=== PATIENT | male | born 1940 | race Caucasian/White ===

== ENCOUNTER → 2016-04-29 | Outpatient (CLI) | payer MEDICARE, BC ==
--- NOTE | 2016-04-29 07:29 | US ---
EXAMINATION TYPE: US kidneys/renal and bladder DATE OF EXAM: 04/29/2016 7:13 AM COMPARISON: NONE CLINICAL HISTORY: R94.4 Abnormal results of kidney function studies. EXAM MEASUREMENTS: Right Kidney: 13.2 x 5.9 x 5.5 cm Left Kidney: 14.9 x 6.0 x 6.4 cm Right Kidney: symmetrically enlarged Left Kidney: cyst lower pole measuring 2.9 x 3.3 x 3.5 cm Bladder: wnl There is no evidence for hydronephrosis at this point in time. No nephrolithiasis is seen. Simple ap pearing cyst lower pole left kidney. The urinary bladder is anechoic. Bilateral ureteral jets are se en. IMPRESSION: 1. Mild renal enlargement bilaterally. 2. Simple cyst left kidney.
== END | disposition home or self-care (01) ==
LOC: RADUSWWP 06:50
PROVIDERS: ATTEND Family Medicine
DX: N28.1 Cyst of kidney, acquired (principal)
CPT/HCPCS: 76770

== ENCOUNTER → 2016-10-04 | Outpatient (CLI) | payer MEDICARE, BC ==
[2016-10-04 12:35] LABS: Hemoglobin A1C 7.2 % (4.2-6.1)
== END | disposition home or self-care (01) ==
LOC: LABWHC1 10:45
PROVIDERS: ATTEND Family Medicine
DX: E11.9 Type 2 diabetes mellitus without complications (principal); Z79.899 Other long term (current) drug therapy
CPT/HCPCS: 36415; 82947; 83036; 84681

== ENCOUNTER → 2016-10-28 | Outpatient (CLI) | payer MEDICARE, BC ==
--- NOTE | 2016-10-28 22:00 | MR ---
EXAMINATION TYPE: MR cervical spine wo con DATE OF EXAM: 10/28/2016 COMPARISON: NONE HISTORY: Neck pain, BUE weakness/numbness TECHNIQUE: Multiplanar, multisequence images of the cervical spine were acquired. FINDINGS: There is artifact on the exam. C2-C3: No evidence for degenerative disc disease. No disc bulge/herniation or protrusion. No Canal stenosis. Foramina are patent bilaterally. C3-C4: Lateral extension of endplate disc complex causes bilateral foraminal encroachment. No signifi cant central stenosis or sizable disc herniation. C4-C5: Small posterior central disc herniation causes slight anterior mass effect on the thecal sac. Lateral extension endplate disc complex results in some foraminal encroachment bilaterally. Anterolis thesis grade 1 C4-5. C5-C6: Posterior extension of endplate disc complex is noted somewhat eccentric towards the left caus ing anterolateral mass effect on the thecal sac, moderate central stenosis, neural foraminal encroach ment left greater than right. C6-C7: Right posterior paracentral disc bulge causes anterolateral mass effect on the thecal sac. No significant central stenosis. Only mild foraminal encroachment bilaterally. C7-T1: Mild bilateral foraminal encroachment likely contributed by the listhesis. Posterior disc bulg es causes slight anterior mass effect on the thecal sac. Cervical segments are intact. There is near normal alignment, loss of lordosis may be due to muscle spasm. Cervical spinal cord is of normal signal. Craniovertebral junction relationships are within normal limits. Cervical vertebral bodies show some multilevel spondylosis with endplate discogenic m arrow signal change, loss of disc height and signal at the intervertebral levels. Mild spinal curvatu re. Incidental note made of probable sebaceous cyst within the subcutaneous fat posterior to the C4 v ertebral body. IMPRESSION: The level degenerative disc disease and foraminal encroachment as described.
== END | disposition home or self-care (01) ==
LOC: RADMRIMAIN 21:08
PROVIDERS: ATTEND Family Medicine
DX: M50.10 Cervical disc disorder with radiculopathy, unspecified cervical region (principal)
CPT/HCPCS: 72141

== ENCOUNTER → 2017-01-20 | Outpatient (CLI) | payer MEDICARE, BC ==
[2017-01-20 11:52] LABS: Calcium 9.3 mg/dL (8.4-10.2); Potassium 4.2 mmol/L (3.5-5.1); Total Bilirubin 0.4 mg/dL (0.2-1.3); Total Protein 7.7 g/dL (6.3-8.2)
[2017-01-20 16:45] LABS: Urine Creatinine 84.1 mg/dL
== END | disposition home or self-care (01) ==
LOC: LABWHC1 11:17
PROVIDERS: ATTEND Internal Medicine Endocrinology, Diabetes & Metabolism
DX: E11.65 Type 2 diabetes mellitus with hyperglycemia (principal)
CPT/HCPCS: 36415; 80053; 80061; 82043; 82570; 83036

== ENCOUNTER → 2017-03-03 | Outpatient (CLI) | payer MEDICARE, BC ==
--- NOTE | 2017-03-03 23:19 | US ---
EXAMINATION TYPE: US carotid duplex BILAT DATE OF EXAM: 03/03/2017 COMPARISON: NONE CLINICAL HISTORY: 76-year-old male R09.89 Carotid Bruit. TECHNIQUE: Carotid duplex ultrasound examination. Indirect Doppler criteria was utilized. FINDINGS: Grayscale images demonstrate extensive shadowing atherosclerotic change at both bifurcations. EXAM MEASUREMENTS: RIGHT: Peak Systolic Velocity (PSV) cm/sec ----- Right CCA: 63.3 ----- Right ICA: 397.3 ----- Right ECA: 506.7 ICA/CCA ratio: 6.3 RIGHT: End Diastole cm/sec ----- Right CCA: 13.8 ----- Right ICA: 93.4 ----- Right ECA: 0.0 LEFT: Peak Systolic Velocity (PSV) cm/sec ----- Left CCA: 133.4 ----- Left ICA: 324.7 ----- Left ECA: 391.2 ICA/CCA ratio: 2.4 LEFT: End Diastole cm/sec ----- Left CCA: 20.4 ----- Left ICA: 95.5 ----- Left ECA: 0.0 VERTEBRALS (direction of flow): Right Vertebral: Antegrade Left Vertebral: Antegrade Rhythm: Normal IMPRESSION: Markedly elevated ICA velocities, right greater than left. Severe (> 70%) stenosis is suggested. Furt her CT angiography evaluation as indicated. Criteria for Assigning % of Stenosis / Diameter reduction (Estimation based on the indirect measurements of the internal carotid artery velocities (ICA PSV). 1. Normal (no stenosis)=ICA PSV < 125 cm/s: ratio < 2.0: ICA EDV<40 cm/s. 2. Less than 50% stenosis=ICA PSV < 125 cm/s: ratio < 2.0: ICA EDV<40 cm/s. 3. 50 to 69% stenosis=ICA PSV of 125 to 230 cm/s: ration 2.0 ? 4.0: ICA EDV 40-100 cm/s. 4. Greater than 70% stenosis to near occlusion= ICA PSV > 230 cm/s: ratio > 4.0: ICA EDV > 100 cm/s. 5. Near occlusion= ICA PSV velocities may be low or undetectable: variable ratio and ICA EDV. 6. Total occlusion=unable to detect flow.
== END | disposition home or self-care (01) ==
LOC: RADUSWWP 14:53
PROVIDERS: ATTEND Family Medicine
DX: I77.89 Other specified disorders of arteries and arterioles (principal); R09.89 Other specified symptoms and signs involving the circulatory and respiratory systems
CPT/HCPCS: 93880

== ENCOUNTER → 2017-03-13 | Outpatient (CLI) | payer MEDICARE, BC ==
--- NOTE | 2017-03-13 09:53 | MR ---
EXAMINATION TYPE: MR angio neck wo/w con DATE OF EXAM: 03/13/2017 COMPARISON: Ultrasound 03/03/2017 HISTORY: Occlusion and stenosis of bilat carotid CONTRAST: Standard multiplanar, multisequence MRI departmental protocol utilizing 13 mL intravenous Gadavist ga dolinium contrast. FINDINGS: Exam limited by artifact There appears to be extensive atherosclerotic plaque involving the proximal right ICA with a stenosis greater than 70%. Stenosis at the origin of the right external carotid artery also suspected. On the left there is a short segmental area of irregularity involving the proximal left ICA also susp ected to be greater than 70% stenosis. Vertebral arteries are noted to be patent with the left being dominant. Mild atherosclerotic plaque n oted bilaterally. Right distal vertebral artery is likely congenitally diminutive. IMPRESSION: 1. Severe (greater than 70%) bilateral proximal ICA stenosis. 2. There also is somewhat diminished signal within the cavernous segment of the distal left ICA. Sign ificant stenosis in this region excluded.
== END | disposition home or self-care (01) ==
LOC: RADMRIMAIN 08:27
PROVIDERS: ATTEND Thoracic Surgery (Cardiothoracic Vascular Surgery)
DX: I65.21 Occlusion and stenosis of right carotid artery (principal)
CPT/HCPCS: 70549; A9581

== ENCOUNTER → 2017-04-23 | Outpatient (CLI) | payer MEDICARE, BC ==
[2017-04-23 10:30] LABS: Basophils % (A) 0 %; Eosinophils # (A) 0.3 k/uL (0-0.7); Eosinophils % (A) 4 %; HCT 39.9 % (39.0-53.0); HGB 12.7 gm/dL (13.0-17.5); Lymphocytes # (A) 1.3 k/uL (1.0-4.8); Lymphocytes % (A) 19 %; MCH 33.4 pg (25.0-35.0); MCHC 31.7 g/dL (31.0-37.0); MCV 105.3 fL (80.0-100.0); Macrocytosis Moderate; Mean Platelet Volume 8.5; Monocytes # (A) 0.4 k/uL (0-1.0); Monocytes % (A) 6 %; Neutrophils # (A) 4.6 k/uL (1.3-7.7); Neutrophils % (A) 68 %; Platelet Count 163 k/uL (150-450); RBC 3.79 m/uL (4.30-5.90); WBC 6.8 k/uL (3.8-10.6)
[2017-04-23 10:31] LABS: Appearance,Urine Clear (Clear); Bilirubin,Urine Negative (Negative); Blood,Urine Negative (Negative); Color,Urine Light Yellow; Glucose,Urine (UA) Negative (Negative); Ketones,Urine Negative (Negative); Leukocyte Esterase,Urine Negative (Negative); Nitrite,Urine Negative (Negative); Protein,Urine Negative (Negative); Specific Gravity,Urine 1.009 (1.001-1.035); Urobilinogen,Urine <2.0 mg/dL (<2.0)
[2017-04-23 11:18] LABS: Potassium 4.8 mmol/L (3.5-5.1)
== END | disposition home or self-care (01) ==
LOC: LABPAT 09:50
PROVIDERS: ATTEND Surgery
DX: Z01.812 Encounter for preprocedural laboratory examination (principal); I65.21 Occlusion and stenosis of right carotid artery
CPT/HCPCS: 36415; 80051; 81003; 82565; 84520; 85025; 86850; 86900; 86901

== ENCOUNTER → 2017-04-30 | Outpatient (CLI) | payer MEDICARE, BC ==
[2017-04-27 09:27] VITALS: BMI 42.8
[~2017-04-30] MED LIST: LACTATED RINGERS 1,000 ML IV SCH; ONDANSETRON 4 MG/2 ML VIAL IVP PRN; fentaNYL (PF) 50 MCG/ML 2 ML AMP IV PRN
[2017-04-30 06:34] VITALS: BP 183/68; PULSE 55; RESP 20; TEMP 97
== END ==
LOC: UNDOADMIN 05:45 → OR 05:45 → 2ORMAIN 05:45 → UNDODISIN 07:15 → EDSTATUS 12:00
PROVIDERS: ATTEND Surgery
DX: Z01.818 Encounter for other preprocedural examination (principal); I65.21 Occlusion and stenosis of right carotid artery
CPT/HCPCS: 86850; 86900; 86901

== ENCOUNTER 2017-05-06 11:59 | Inpatient (IN) | payer MEDICARE, BC ==
[~2017-05-06 11:59] MED LIST changes: +DEXAMETHASONE SOD PHOSPHATE 10 MG/ML 1 ML VIAL IV ONE; +HYDROmorphone 0.5 MG/0.5 ML SYRINGE IVP PRN; +ONDANSETRON 4 MG/2 ML VIAL IVP ONE; -ONDANSETRON 4 MG/2 ML VIAL IVP PRN; -fentaNYL (PF) 50 MCG/ML 2 ML AMP IV PRN
[2017-05-06] MEDS ORDERED: SODIUM CHLORIDE 0.9% 1,000 ML IV ONE ×2 (14:03→21:50)
[2017-05-06 14:05] LABS: Glucose,Whole Blood 120 mg/dL (75-99)
[2017-05-06] MEDS ORDERED: LIDOCAINE 1% 20 ML VIAL (10MG/ML) FOR IV START INTRADERMA ONE (14:09)
[2017-05-06 14:21] LABS: INR 1.2 (<1.2); Partial Thromboplastin Time 37.8 sec (22.0-30.0); Prothrombin Time 11.8 sec (9.0-12.0)
[2017-05-06 14:34] LABS: ALT 18 U/L (21-72); AST 22 U/L (17-59); Albumin 4.2 g/dL (3.5-5.0); Alkaline Phosphatase 65 U/L (38-126); Anion Gap 10 mmol/L; Blood Urea Nitrogen 41 mg/dL (9-20); Calcium 9.3 mg/dL (8.4-10.2); Carbon Dioxide 30 mmol/L (22-30); Chloride 102 mmol/L (98-107); Glucose 123 mg/dL (74-99); Potassium 4.8 mmol/L (3.5-5.1); Sodium 142 mmol/L (137-145); Total Bilirubin 0.6 mg/dL (0.2-1.3); Total Protein 7.5 g/dL (6.3-8.2)
[2017-05-06] MEDS ORDERED: COLCHICINE 0.6 MG TAB PO PRN (16:53)
[2017-05-06] MEDS ORDERED: MECLIZINE 25 MG TAB PO PRN (16:53)
[2017-05-06 16:55] LABS: Glucose,Whole Blood 134 mg/dL (75-99)
[2017-05-06] MEDS ORDERED: INSULIN LISPRO (For Pump) 100 UNIT/ML VIAL SQ-PUMP SCH (17:00)
[2017-05-06] MEDS ORDERED: PROTAMINE SULFATE 10 MG/ML 5 ML VIAL IV ONE (17:54)
[2017-05-06] MEDS ORDERED: fentaNYL (PF) 50 MCG/ML 2 ML AMP ONE (17:54)
[2017-05-06] MEDS ORDERED: GLYCOPYRROLATE 0.2 MG/ML 2 ML VIAL ONE (17:54)
[2017-05-06] MEDS ORDERED: PHENYLEPHRINE-0.9% NACL SYG 1 MG/10 ML SYRINGE ONE (17:54)
[2017-05-06] MEDS ORDERED: MIDAZOLAM 2 MG/2 ML VIAL ONE (17:54)
[2017-05-06] MEDS ORDERED: HEPARIN SODIUM,PORCINE 10,000 UNIT/ML 1 ML VIAL ONE (17:54)
[2017-05-06] MEDS ORDERED: NEOSTIGMINE 1 MG/ML 10 ML VIAL ONE (17:54)
[2017-05-06] MEDS ORDERED: LIDOCAINE 1% INJ 10MG/ML (20 ML MDV) ONE (17:54)
[2017-05-06] MEDS ORDERED: ETOMIDATE 2 MG/ML 10 ML VIAL ONE (17:54)
[2017-05-06] MEDS ORDERED: ROCURONIUM BROMIDE 10 MG/ML 10 ML VIAL IV ONE (17:54)
[2017-05-06] MEDS ORDERED: PROPOFOL 10 MG/ML 20 ML VIAL IV ONE (17:54)
[2017-05-06] MEDS ORDERED: SUCCINYLCHOLINE CHLORIDE 100 MG/5 ML SYR IV ONE (17:54)
[2017-05-06] MEDS ORDERED: hydrALAZINE HCL 20 MG/ML 1 ML VIAL ONE (17:54)
[2017-05-06] MEDS ORDERED: SODIUM CHLORIDE 0.9% 500 ML with HEPARIN SODIUM,PORCINE 5,000 UNIT IV ONE ×2 (18:46)
[2017-05-06] MEDS ORDERED: THROMBIN (BOVINE) 5,000 UNIT VIAL TOPICAL ONE (18:50)
[2017-05-06] MEDS ORDERED: CEFAZOLIN IRRIGATION ONE ×2 (19:00→19:20)
[2017-05-06] MEDS ORDERED: BACITRACIN IRRIGATION ONE ×2 (19:00→19:20)
[2017-05-06] MEDS ORDERED: SODIUM CHLORIDE 0.9% IRRIGATION ONE ×2 (19:00→19:20)
[2017-05-06] MEDS ORDERED: ACETAMINOPHEN TAB 325 MG TAB PO PRN (20:11)
[2017-05-06] MEDS ORDERED: BENZOCAINE/MENTHOL LOZENG 1 EACH LOZENGE MUCOUS MEM PRN (20:11)
[2017-05-06] MEDS ORDERED: HYDROcodone/APAP 5-325MG 1 EACH TAB PO PRN (20:11)
[2017-05-06] MEDS ORDERED: TEMAZEPAM 15 MG CAP PO PRN (20:11)
[2017-05-06] MEDS ORDERED: MAG HYDROX/AL HYDROX/SIMETH 30 ML CUP PO PRN (20:11)
[2017-05-06] MEDS ORDERED: LACTATED RINGERS 1,000 ML IV ONE ×2 (20:44)
--- NOTE | 2017-05-06 20:48 | P.OP ---
Date of Procedure: 05/06/17 Preoperative Diagnosis: Preoperative diagnosis: Hemodynamically severe right internal carotid artery stenosis. Postoperative diagnosis: Same. Procedure right carotid endarterectomy with patch angioplasty. Surgeon Sandie Quiroz. surgeon: Dr. Juárez. Anesthesia: Gen. endotracheal Counts: Correct. Estimated blood loss: 100 mL's. Specimen: Right carotid plaque. Complications: None. Indications: Patient is a 76-year-old male who was recently found to be suffering from here medically severe bilateral carotid artery stenosis. This is confirmed via MR angiography. Patient was counseled as to the options including medical as well as surgical therapy. The patient was to proceed with carotid endarterectomy. He was cleared by cardiology for proposed operative procedure. Technique: Patient brought the upper and placed in supine position, and administered general endotracheal anesthesia delivered by the department of anesthesiology. Boothe catheter was placed to gravity drainage. The patient received 2 g of Ancef intravenously in the preoperative phase. Patient's right lateral neck supraclavicular and anterior chest wall areas were sterilely prepped and draped in usual manner. Skin incision was made overlying the anterior border of the sternocleidomastoid muscle and carried down through the subcutaneous tissues. Hemostasis was achieved using electrocautery. The platysma muscle was incised. Dissection was then carried along the anterior border of the sternocleidomastoid muscle to the level of carotid sheath. Crossing veins were identified and these were doubly ligated with silk suture and transected when encountered. The internal jugular vein was identified and mobilized and retracted posteriorly and inferiorly. The common carotid artery proximally was identified dissected free from investing tissues and encircled with Vesseloops. Dissection along the carotid was continued to the level of the bulb. The superior thyroid artery was encircled vessel loop as was the external carotid artery. The dissection was then carried along the internal carotid to a point distal to the level of plaque. A branch of the ansa cervicalis was encountered and this was transected. The patient was systemically heparinized and after adequate circulation time vessel loops were drawn closed. Arteriotomy was made in the common carotid artery and extended through the bulb level and into the internal carotid with the use of Espinoza scissors. Backbleeding was identified. A shunt was selected and placed in the internal carotid artery. It was then back bled and placed in the common carotid artery, thus restoring flow into the internal system. Endarterectomy was then begun and extended to the level of bulb level. Retraction endarterectomy was performed on the external system. The endarterectomy was then continued into the internal segment and the distal end feathered without the need for tacking sutures. The specimen was sent to pathology. The remaining luminal surface was inspected for any loose or free- floating material and this was removed where encountered. Bovine pericardial patch was selected and patch angioplasty closure of the arterial Rondomycin carotid was performed with the use of 6-0 Prolene suture placed in running fashion. Just prior to completion anastomotic line the shunt was removed. Backbleeding was allowed to occur no thrombus was retrieved. The internal carotid artery was once again occluded and the arteriotomy closure was completed. Backbleeding was then allowed to occur into the common from the internal segment. The internal segment was then occluded at its origin. The vessels surrounding the superior thyroid and the external carotid artery were loosened as well as the vessel loops surrounding the common carotid artery and flow restored into the external system thus flushing any potential debris into the external system. Flow was then restored into the internal system. Excellent pulse in the internal carotid artery distal to the endarterectomy was noted. The anastomotic line was dry. The patient received 25 mg of protamine. The wound was irrigated with antibody containing solution. Topical thrombin Gelfoam were placed about the anastomotic line. Deep tissues were then closed with Vicryl suture. Dermis was closed with 4-0 Monocryl placed in running intradermal fashion. Dermabond appropriate dressings were applied. Patient tolerated the procedure well and awoke without apparent complication was transferred to the recovery area in satisfactory and stable condition.
[2017-05-06 21:26] LABS: Glucose,Whole Blood 175 mg/dL (75-99)
[2017-05-06 21:35] LABS: ABG Base Excess -5.4 mmol/L; ABG HCO3 23 mmol/L (21-25); ABG Oxygen Saturation 96.8 % (94-97); ABG PCO2 66 mmHg (35-45); ABG PO2 136 mmHg (83-108); ABG TCO2 25 mmol/L (19-24)
[2017-05-06] MEDS ORDERED: LABETALOL 5 MG/ML VIAL MDV IVP ONE ×2 (21:40→21:50)
[2017-05-06 21:44] LABS: ABG PH 7.16 (7.35-7.45)
[2017-05-06] MEDS: NITROGLYCERIN-D5W PMX 50 MG in DEXTROSE/WATER 1 250ML.BAG IV SCH (22:00)
[2017-05-06 22:08] LABS: Glucose,Whole Blood 200 mg/dL (75-99)
[2017-05-06 22:18] LABS: ABG Base Excess -0.3 mmol/L; ABG HCO3 26 mmol/L (21-25); ABG PCO2 55 mmHg (35-45); ABG PH 7.29 (7.35-7.45); ABG PO2 266 mmHg (83-108); ABG TCO2 28 mmol/L (19-24)
[2017-05-06 22:39] LABS: Basophils % (A) 0 %; Eosinophils # (A) 0.1 k/uL (0-0.7); Eosinophils % (A) 1 %; HCT 39.7 % (39.0-53.0); HGB 12.6 gm/dL (13.0-17.5); Lymphocytes # (A) 0.6 k/uL (1.0-4.8); Lymphocytes % (A) 5 %; MCH 33.4 pg (25.0-35.0); MCHC 31.6 g/dL (31.0-37.0); MCV 105.7 fL (80.0-100.0); Macrocytosis Moderate; Mean Platelet Volume 8.3; Monocytes # (A) 0.2 k/uL (0-1.0); Monocytes % (A) 1 %; Neutrophils # (A) 10.4 k/uL (1.3-7.7); Neutrophils % (A) 92 %; Platelet Count 190 k/uL (150-450); RBC 3.76 m/uL (4.30-5.90); RDW 14.7 % (11.5-15.5); WBC 11.3 k/uL (3.8-10.6)
[2017-05-06] MEDS: MORPHINE SULFATE 4 MG/ML SYRINGE IVP PRN (22:43)
[2017-05-06 23:00] LABS: ALT 19 U/L (21-72); AST 24 U/L (17-59); Albumin 3.9 g/dL (3.5-5.0); Alkaline Phosphatase 70 U/L (38-126); Anion Gap 11 mmol/L; Blood Urea Nitrogen 36 mg/dL (9-20); Calcium 8.8 mg/dL (8.4-10.2); Carbon Dioxide 26 mmol/L (22-30); Chloride 104 mmol/L (98-107); Glucose 218 mg/dL (74-99); Magnesium 2.2 mg/dL (1.6-2.3); Phosphorus 4.4 mg/dL (2.5-4.5); Potassium 5.1 mmol/L (3.5-5.1); Sodium 141 mmol/L (137-145); Total Bilirubin 0.5 mg/dL (0.2-1.3)
[2017-05-06 23:09] LABS: Creatine Kinase MB 2.4 ng/mL (0.0-2.4); Troponin I <0.012 ng/mL (0.000-0.034)
[2017-05-06] MEDS ORDERED: DABIGATRAN 150 MG CAP PO SCH (23:30)
[2017-05-07] MEDS: PRAVASTATIN SODIUM 40 MG TAB PO SCH ×2 (00:17→20:53)
[2017-05-07] MEDS: FUROSEMIDE 80 MG TAB PO SCH ×3 (00:18→18:06)
[2017-05-07] MEDS: LISINOPRIL 2.5 MG TAB PO SCH ×2 (00:18→20:51)
[2017-05-07] MEDS: metFORMIN 500 MG TAB PO SCH ×2 (00:18→13:04)
[2017-05-07] MEDS: PREGABALIN 75 MG CAP PO SCH ×2 (00:19→13:10)
[2017-05-07] MEDS: PROPAFENONE 225 MG TAB PO SCH ×4 (00:20→20:51)
[2017-05-07] MEDS: SODIUM CHLORIDE 0.9% 1,000 ML IV SCH ×2 (00:21→13:06)
[2017-05-07] MEDS: CARVEDILOL 12.5 MG TAB PO SCH ×2 (00:37→05:35)
[2017-05-07] MEDS ORDERED: NALOXONE 0.4 MG/ML 1 ML VIAL IV PRN (01:10)
[2017-05-07 02:12] LABS: Glucose,Whole Blood 184 mg/dL (75-99)
[2017-05-07] MEDS: MORPHINE SULFATE 4 MG/ML SYRINGE IVP PRN (02:46)
[2017-05-07 05:10] LABS: Basophils % (A) 0 %; Eosinophils % (A) 0 %; HCT 36.9 % (39.0-53.0); HGB 11.4 gm/dL (13.0-17.5); Lymphocytes # (A) 0.8 k/uL (1.0-4.8); Lymphocytes % (A) 6 %; MCV 106.5 fL (80.0-100.0); Macrocytosis Moderate; Mean Platelet Volume 8.5; Monocytes # (A) 0.5 k/uL (0-1.0); Monocytes % (A) 4 %; Neutrophils # (A) 10.8 k/uL (1.3-7.7); Neutrophils % (A) 89 %; Platelet Count 188 k/uL (150-450); RBC 3.47 m/uL (4.30-5.90); RDW 14.8 % (11.5-15.5); WBC 12.2 k/uL (3.8-10.6)
[2017-05-07 05:18] LABS: Anion Gap 9 mmol/L; Blood Urea Nitrogen 36 mg/dL (9-20); Calcium 8.6 mg/dL (8.4-10.2); Carbon Dioxide 27 mmol/L (22-30); Chloride 104 mmol/L (98-107); Glucose 215 mg/dL (74-99); Magnesium 2.1 mg/dL (1.6-2.3); Phosphorus 4.6 mg/dL (2.5-4.5); Potassium 5.4 mmol/L (3.5-5.1); Sodium 140 mmol/L (137-145)
[2017-05-07] MEDS: HYDROcodone/APAP 5-325MG 1 EACH TAB PO PRN ×2 (05:34→16:14)
[2017-05-07 07:07] LABS: Glucose,Whole Blood 243 mg/dL (75-99)
[2017-05-07] MEDS: INSULIN ASPART 100 UNIT/ML 1 ML 10 ML VIAL SQ SCH ×4 (07:36→20:53)
[2017-05-07] MEDS: ASPIRIN 81 MG PO SCH (08:30)
[2017-05-07] MEDS: FAMOTIDINE 20 MG TAB PO SCH ×2 (09:05→20:52)
[2017-05-07] MEDS: amLODIPine 10 MG TAB PO SCH (09:06)
--- NOTE | 2017-05-07 09:26 | P.CNPUL ---
History of Present Illness Consult date: 05/07/17 Reason for consult: other Chief complaint: Status post right carotid endarterectomy, ICU management History of present illness: Consult dated 05/07/2017 This is a 76-year-old male who is postop day #1 status post right carotid endarterectomy. His primary physician is Dr. Patrick Mckenzie. Currently the patient's on 6 L high flow oxygen nitroglycerin drip at 60 mcg/m a saline IV at 75 mL an hour. He has a history of hypertension gout hyperlipidemia diabetes insomnia and a whole host of other major medical problems. He has no ALLERGIES. His home medications include metformin Ambien Flomax Rythmol Lyrica Pravachol 80. Zestril Motrin insulin Lasix Pradaxa colchicine Coreg aspirin Zyloprim and Tylenol. The patient seemed be doing relatively well. Obviously has some pain in the right neck area. Denies any chest pain or chest discomfort. No fever or chills. Any respiratory issues including difficulty breathing coughing wheezing shortness of breath or phlegm production. Review of Systems A 12 point review of system is positive for pain in the right neck area. Otherwise, the review of systems is negative. Consult neurologic negative HEENT negative cardiovascular negative pulmonary negative GI negative rheumatologic immunologic negative endocrinologic and dermatologic all negative Past Medical History Past Medical History: Atrial Fibrillation, Coronary Artery Disease (CAD), Diabetes Mellitus, GERD/Reflux, Hyperlipidemia, Hypertension, Osteoarthritis (OA ), Sleep Apnea/CPAP/BIPAP Additional Past Medical History / Comment(s): pericardial effusion, gout, blockage shaka carotid arteries, neuropathy, diverticulitis, insulin pump, uses a cane- wheelchair for distance. edema shaka feet History of Any Multi-Drug Resistant Organisms: None Reported Past Surgical History: Cardiac Ablation, Heart Catheterization, Orthopedic Surgery Additional Past Surgical History / Comment(s): carpal tunnel rt wrist, rt knee replacement, shaka hip replacement, drainage for pericaridal effusion, cardioversion, arthroscopy shaka knees Past Anesthesia/Blood Transfusion Reactions: Motion Sickness Past Psychological History: No Psychological Hx Reported Smoking Status: Never smoker Past Alcohol Use History: None Reported Past Drug Use History: None Reported - Past Family History Mother Family Medical History: No Reported History Medications and Allergies Home Medications Medication Instructions Recorded Confirmed Type Acetaminophen Tab [Tylenol Tab] 650 mg PO Q4H PRN 03/04/17 05/06/17 History Allopurinol [Zyloprim] 300 mg PO DAILY@1200 03/04/17 05/06/17 History Carvedilol [Coreg] 12.5 mg PO DAILY@1200,2330 03/04/17 05/06/17 History Colchicine [Colcrys] 0.6 mg PO BID PRN 03/04/17 05/06/17 History Furosemide [Lasix] 80 mg PO DAILY@1200,1800 03/04/17 05/06/17 History INSULIN LISPRO (For Pump) [humaLOG 0.01 units SQ-PUMP CONTINUOUS 03/04/17 History (For Pump)] Ibuprofen [Motrin] 800 mg PO TID PRN 03/04/17 05/06/17 History Lisinopril [Zestril] 2.5 mg PO HS 03/04/17 05/06/17 History Meclizine [Antivert] 25 mg PO TID PRN 03/04/17 05/06/17 History Pravastatin Sodium [Pravachol] 40 mg PO HS 03/04/17 05/06/17 History Pregabalin [Lyrica] 150 mg PO DAILY@1200,2330 03/04/17 05/06/17 History Propafenone HCl [Rythmol Sr] 325 mg PO DAILY@1200,2330 03/04/17 05/06/17 History Tamsulosin HCl [Flomax] 0.4 mg PO DAILY@1200 03/04/17 05/06/17 History Zolpidem [Ambien] 10 mg PO HS 03/04/17 05/06/17 History metFORMIN HCL 500 mg PO DAILY@1200,2330 03/04/17 05/06/17 History Aspirin [Adult Low Dose Aspirin EC] 81 mg PO DAILY@1200 04/27/17 05/06/17 History Dabigatran [Pradaxa] 150 mg PO DAILY@1200,2330 04/27/17 05/06/17 History Allergies Allergy/AdvReac Type Severity Reaction Status Date / Time No Known Allergies Allergy Verified 05/06/17 21:02 Physical Exam Osteopathic Statement: *. No significant issues noted on an osteopathic structural exam other than those noted in the History and Physical/Consult. Vitals: Vital Signs Temp Pulse Pulse Resp BP BP BP 05/07/17 06:30 79 103/47 05/07/17 06:00 62 144/65 05/07/17 05:30 64 158/59 05/07/17 05:00 52 L 137/54 05/07/17 04:30 55 L 126/48 05/07/17 04:00 97.2 F L 51 L 20 150/66 05/07/17 03:30 74 155/53 05/07/17 03:25 05/07/17 03:00 69 20 156/53 05/07/17 02:30 63 141/47 05/07/17 02:00 57 L 16 154/53 05/07/17 01:30 49 L 152/59 05/07/17 01:00 96.5 F L 60 16 142/56 05/07/17 00:40 50 L 147/54 05/07/17 00:30 53 L 05/07/17 00:20 64 05/07/17 00:10 60 05/07/17 00:00 51 L 05/06/17 23:50 56 L 05/06/17 23:40 59 L 05/06/17 23:30 55 L 05/06/17 23:20 65 139/40 05/06/17 23:10 65 136/47 05/06/17 23:00 53 L 136/47 05/06/17 22:50 55 L 05/06/17 22:40 52 L 05/06/17 22:30 58 L 154/66 05/06/17 22:20 64 65 16 166/67 05/06/17 22:10 67 05/06/17 22:00 05/06/17 21:50 65 18 158/65 05/06/17 21:40 79 18 168/77 173/85 05/06/17 21:15 65 24 05/06/17 21:05 69 18 143/69 05/06/17 20:45 97 F L 64 22 144/79 149/69 05/06/17 14:16 59 L 18 130/62 05/06/17 13:37 97.5 F L 56 L 18 BP Pulse Ox 05/07/17 06:30 95 05/07/17 06:00 94 L 05/07/17 05:30 98 05/07/17 05:00 98 05/07/17 04:30 97 05/07/17 04:00 97 05/07/17 03:30 97 05/07/17 03:25 87 L 05/07/17 03:00 94 L 05/07/17 02:30 98 05/07/17 02:00 98 05/07/17 01:30 98 05/07/17 01:00 99 05/07/17 00:40 96 05/07/17 00:30 96 05/07/17 00:20 94 L 05/07/17 00:10 95 05/07/17 00:00 96 05/06/17 23:50 95 05/06/17 23:40 95 05/06/17 23:30 95 05/06/17 23:20 99 05/06/17 23:10 97 05/06/17 23:00 98 05/06/17 22:50 97 05/06/17 22:40 98 05/06/17 22:30 98 05/06/17 22:20 100 05/06/17 22:10 100 05/06/17 22:00 100 05/06/17 21:50 97 05/06/17 21:40 94 L 05/06/17 21:15 86 L 05/06/17 21:05 87 L 05/06/17 20:45 89 L 05/06/17 14:16 92 L 05/06/17 13:37 158/66 92 L Intake and Output 05/06/17 05/07/17 05/07/17 22:59 06:59 14:59 Intake Total 776.5 804.900 Output Total 200 525 Balance 576.5 279.900 Intake: IV 776 775 Sodium Chloride 0.9% 1, 675 000 ml @ 75 mls/hr IV . [id number] [facility] Rx#:[id number] ceFAZolin 3 gm In Sodium 100 Chloride 0.9% 50 ml @ 100 mls/hr IVPB ONCE ONE Rx# :[id number] Intake, IV Titration 0.5 29.900 Amount Nitroglycerin-D5w Pmx 50 0.5 29.900 mg In Dextrose/Water 1 250ml.bag @ Titrate IV . Q0M [facility] Rx#:[id number] Output: Urine 150 525 Estimated Blood Loss 50 Other: Voiding Method Indwelling Catheter ABP, PAP, CO, CI - Last 8 Hours Arterial Blood Pressure 127/47 Arterial Blood Pressure 143/49 Arterial Blood Pressure 156/54 Arterial Blood Pressure 136/38 Arterial Blood Pressure 137/30 Arterial Blood Pressure 121/24 Arterial Blood Pressure 162/39 Arterial Blood Pressure 138/49 Arterial Blood Pressure 159/51 Arterial Blood Pressure 158/50 Arterial Blood Pressure 147/44 No acute distress, oriented 3. High flow oxygen in place at 6 L. HEENT examination is grossly unremarkable. Mucous membranes are moist. No oral lesions. Neck supple. Full range of motion. No adenopathy thyromegaly or neck vein distention. Dressing noted on right sided neck. Cardiovascular examination reveals regular rhythm rate. S1-S2 normal. No S3 or S4. No discernible murmur noted. Lungs reveal clear breath sounds. Her sounds are equal bilaterally. No adventitious lung sounds including wheezes rhonchi or crackles. Abdomen soft bowel sounds are heard. No masses or tenderness. Extremities are intact. No cyanosis clubbing or edema. Skin is without rash or lesion. Neurologic examination is brief but nonfocal. Results - Laboratory Findings CBC and BMP: 05/07/17 04:49 05/07/17 04:49 ABG ABG pH 7.29 (7.35-7.45) L 05/06/17 22:15 ABG pCO2 55 mmHg (35-45) H 05/06/17 22:15 ABG pO2 266 mmHg (83-108) H 05/06/17 22:15 ABG O2 Saturation 99.0 % (94-97) H 05/06/17 22:15 PT/INR, D-dimer PT 11.8 sec (9.0-12.0) 05/06/17 14:00 INR 1.2 (<1.2) H 05/06/17 14:00 Abnormal lab findings: Abnormal Labs 05/06/17 05/06/17 05/06/17 13:57 14:00 14:00 WBC RBC Hgb Hct MCV Neutrophils # Lymphocytes # INR 1.2 H APTT 37.8 H ABG pH ABG pCO2 ABG pO2 ABG HCO3 ABG Total CO2 ABG O2 Saturation Potassium BUN 41 H Creatinine 1.29 H Glucose 123 H POC Glucose (mg/dL) 120 H Phosphorus ALT 18 L 05/06/17 05/06/17 05/06/17 16:49 20:56 21:32 WBC RBC Hgb Hct MCV Neutrophils # Lymphocytes # INR APTT ABG pH 7.16 L* ABG pCO2 66 H ABG pO2 136 H ABG HCO3 ABG Total CO2 25 H ABG O2 Saturation Potassium BUN Creatinine Glucose POC Glucose (mg/dL) 134 H 175 H Phosphorus ALT 05/06/17 05/06/17 05/06/17 22:06 22:15 22:32 WBC 11.3 H RBC 3.76 L Hgb 12.6 L Hct MCV 105.7 H Neutrophils # 10.4 H Lymphocytes # 0.6 L INR APTT ABG pH 7.29 L ABG pCO2 55 H ABG pO2 266 H ABG HCO3 26 H ABG Total CO2 28 H ABG O2 Saturation 99.0 H Potassium BUN Creatinine Glucose POC Glucose (mg/dL) 200 H Phosphorus ALT 05/06/17 05/07/17 05/07/17 22:32 02:11 04:49 WBC 12.2 H RBC 3.47 L Hgb 11.4 L Hct 36.9 L MCV 106.5 H Neutrophils # 10.8 H Lymphocytes # 0.8 L INR APTT ABG pH ABG pCO2 ABG pO2 ABG HCO3 ABG Total CO2 ABG O2 Saturation Potassium BUN 36 H Creatinine Glucose 218 H POC Glucose (mg/dL) 184 H Phosphorus ALT 19 L 05/07/17 05/07/17 04:49 07:04 WBC RBC Hgb Hct MCV Neutrophils # Lymphocytes # INR APTT ABG pH ABG pCO2 ABG pO2 ABG HCO3 ABG Total CO2 ABG O2 Saturation Potassium 5.4 H BUN 36 H Creatinine Glucose 215 H POC Glucose (mg/dL) 243 H Phosphorus 4.6 H ALT - Diagnostic Findings Chest x-ray: image reviewed (Labs medications x-rays, so forth, are all reviewed.) Assessment and Plan Assessment: Assessment Postop day #1, status post right carotid endarterectomy History of diabetes Hypertension Hyperlipidemia Gout. Obesity Multiple other medical problems and comorbidities as listed above Plan: Plan dated 05/07/2017 Currently well. Remains on a relatively higher dose of nitroglycerin at 60 mcg/ m. The patient's O2 requirements at 6 L high flow. Chest x-ray labs and medications are all reviewed. He is postop day #1. We'll continue to follow closely. Additional recommendations made at this time. Time with Patient: Greater than 30
[2017-05-07 13:01] LABS: Glucose,Whole Blood 214 mg/dL (75-99)
[2017-05-07] MEDS: TAMSULOSIN 0.4 MG CAP.ER.24H PO SCH (13:05)
[2017-05-07] MEDS: ALLOPURINOL 300 MG TAB PO SCH (13:06)
--- NOTE | 2017-05-07 14:01 | P.CONS ---
History of Present Illness - Reason for Consult Consult date: 05/07/17 Medical management - Chief Complaint s/p right carotid endartectectomy - History of Present Illness 76-year-old male who underwent elective right carotid endarterectomy with patch angioplasty on 05/06/[address] Mckenzie was consulted for medical management. The patient has a history of bilateral carotid stenosis, atrial fibrillation, coronary disease, diabetes mellitus, gastroesophageal reflux disease, hyperlipidemia, hypertension, osteoarthritis, and sleep apnea. The patient was seen and examined in the intensive care unit on rounds Dr. Mckenzie. The patient is sitting up in the chair. Family is at the bedside. The patient remains on a nitro drip at 60 mcg/min. Systolic blood pressures ranging in the 140s. The patient is complaining of pain at the surgical site. Dressing is in place. Swelling is noted near surgical site. Patient denies shortness of breath or coughing. Denies chest pain or pressure. Denies nausea or vomiting. States he is tolerating PO intake well without nausea or vomiting. Review of Systems GENERAL: Patient denies fever. Denies chills. EYES: Denies blurred vision. Denies vision changes. Denies eye pain. EARS, NOSE, MOUTH, & THROAT: Positive for pain near right neck at surgical site. Denies headache. Denies sore throat. Denies ear pain. RESPIRATORY: Denies cough. Denies shortness of breath. Denies sputum production. Denies hemoptysis. CARDIOVASCULAR: Denies chest pain or pressure. Denies palpitations. Denies arrhythmias. GASTROINTESTINAL: Denies abdominal pain. Denies diarrhea. Denies constipation. Denies nausea. Denies vomiting. Denies heartburn. Denies blood in the stool. GENITOURINARY: Denies urinary frequency. Denies burning. Denies dysuria. Denies cloudy urine. Denies blood in the urine. MUSCULOSKELETAL: Denies myalgias. Denies joint swelling. Denies decreased range of motion beyond patients baseline. INTEGUMENTARY: Denies pruitis. Denies rash. PSYCHIATRIC: Denies suicidal or homicial ideations. ENDOCRINE: Denies weight change. Denies polydipsia. Denies polyuria. HEMATOLOGIC: Denies bleeding disorders. Past Medical History Past Medical History: Atrial Fibrillation, Coronary Artery Disease (CAD), Diabetes Mellitus, GERD/Reflux, Hyperlipidemia, Hypertension, Osteoarthritis (OA ), Sleep Apnea/CPAP/BIPAP Additional Past Medical History / Comment(s): pericardial effusion, gout, blockage shaka carotid arteries, neuropathy, diverticulitis, insulin pump, uses a cane- wheelchair for distance. edema shaka feet History of Any Multi-Drug Resistant Organisms: None Reported Past Surgical History: Cardiac Ablation, Heart Catheterization, Orthopedic Surgery Additional Past Surgical History / Comment(s): carpal tunnel rt wrist, rt knee replacement, shaka hip replacement, drainage for pericaridal effusion, cardioversion, arthroscopy shaka knees Past Anesthesia/Blood Transfusion Reactions: Motion Sickness Past Psychological History: No Psychological Hx Reported Smoking Status: Never smoker Past Alcohol Use History: None Reported Past Drug Use History: None Reported - Past Family History Mother Family Medical History: No Reported History Medications and Allergies Home Medications Medication Instructions Recorded Confirmed Type Acetaminophen Tab [Tylenol Tab] 650 mg PO Q4H PRN 03/04/17 05/06/17 History Allopurinol [Zyloprim] 300 mg PO DAILY@1200 03/04/17 05/06/17 History Carvedilol [Coreg] 12.5 mg PO DAILY@1200,2330 03/04/17 05/06/17 History Colchicine [Colcrys] 0.6 mg PO BID PRN 03/04/17 05/06/17 History Furosemide [Lasix] 80 mg PO DAILY@1200,1800 03/04/17 05/06/17 History INSULIN LISPRO (For Pump) [humaLOG 0.01 units SQ-PUMP CONTINUOUS 03/04/17 History (For Pump)] Ibuprofen [Motrin] 800 mg PO TID PRN 03/04/17 05/06/17 History Lisinopril [Zestril] 2.5 mg PO HS 03/04/17 05/06/17 History Meclizine [Antivert] 25 mg PO TID PRN 03/04/17 05/06/17 History Pravastatin Sodium [Pravachol] 40 mg PO HS 03/04/17 05/06/17 History Pregabalin [Lyrica] 150 mg PO DAILY@1200,2330 03/04/17 05/06/17 History Propafenone HCl [Rythmol Sr] 325 mg PO DAILY@1200,2330 03/04/17 05/06/17 History Tamsulosin HCl [Flomax] 0.4 mg PO DAILY@1200 03/04/17 05/06/17 History Zolpidem [Ambien] 10 mg PO HS 03/04/17 05/06/17 History metFORMIN HCL 500 mg PO DAILY@1200,2330 03/04/17 05/06/17 History Aspirin [Adult Low Dose Aspirin EC] 81 mg PO DAILY@1200 04/27/17 05/06/17 History Dabigatran [Pradaxa] 150 mg PO DAILY@1200,2330 04/27/17 05/06/17 History Allergies Allergy/AdvReac Type Severity Reaction Status Date / Time No Known Allergies Allergy Verified 05/06/17 21:02 Physical Exam Vitals: Vital Signs Temp Pulse Pulse Resp BP BP BP 05/07/17 06:30 79 103/47 05/07/17 06:00 62 144/65 05/07/17 05:30 64 158/59 05/07/17 05:00 52 L 137/54 05/07/17 04:30 55 L 126/48 05/07/17 04:00 97.2 F L 51 L 20 150/66 05/07/17 03:30 74 155/53 05/07/17 03:25 05/07/17 03:00 69 20 156/53 05/07/17 02:30 63 141/47 05/07/17 02:00 57 L 16 154/53 05/07/17 01:30 49 L 152/59 05/07/17 01:00 96.5 F L 60 16 142/56 05/07/17 00:40 50 L 147/54 05/07/17 00:30 53 L 05/07/17 00:20 64 05/07/17 00:10 60 05/07/17 00:00 51 L 05/06/17 23:50 56 L 05/06/17 23:40 59 L 05/06/17 23:30 55 L 05/06/17 23:20 65 139/40 05/06/17 23:10 65 136/47 05/06/17 23:00 53 L 136/47 05/06/17 22:50 55 L 05/06/17 22:40 52 L 05/06/17 22:30 58 L 154/66 05/06/17 22:20 64 65 16 166/67 05/06/17 22:10 67 05/06/17 22:00 05/06/17 21:50 65 18 158/65 05/06/17 21:40 79 18 168/77 173/85 05/06/17 21:15 65 24 05/06/17 21:05 69 18 143/69 05/06/17 20:45 97 F L 64 22 144/79 149/69 05/06/17 14:16 59 L 18 130/62 Pulse Ox 05/07/17 06:30 95 05/07/17 06:00 94 L 05/07/17 05:30 98 05/07/17 05:00 98 05/07/17 04:30 97 05/07/17 04:00 97 05/07/17 03:30 97 05/07/17 03:25 87 L 05/07/17 03:00 94 L 05/07/17 02:30 98 05/07/17 02:00 98 05/07/17 01:30 98 05/07/17 01:00 99 05/07/17 00:40 96 05/07/17 00:30 96 05/07/17 00:20 94 L 05/07/17 00:10 95 05/07/17 00:00 96 05/06/17 23:50 95 05/06/17 23:40 95 05/06/17 23:30 95 05/06/17 23:20 99 05/06/17 23:10 97 05/06/17 23:00 98 05/06/17 22:50 97 05/06/17 22:40 98 05/06/17 22:30 98 05/06/17 22:20 100 05/06/17 22:10 100 05/06/17 22:00 100 05/06/17 21:50 97 05/06/17 21:40 94 L 05/06/17 21:15 86 L 05/06/17 21:05 87 L 05/06/17 20:45 89 L 05/06/17 14:16 92 L Intake and Output 05/06/17 05/07/17 05/07/17 22:59 06:59 14:59 Intake Total 776.5 804.900 450 Output Total 200 525 400 Balance 576.5 279.900 50 Intake: IV 776 775 450 Sodium Chloride 0.9% 5 450 000 ml @ 75 mls/hr IV . [id number] [facility] Rx#:[id number] ceFAZolin 3 gm In Sodium 100 Chloride 0.9% 50 ml @ 100 mls/hr IVPB ONCE ONE Rx# :[id number] Intake, IV Titration 0.5 29.900 Amount Nitroglycerin-D5w Pmx 50 0.5 29.900 mg In Dextrose/Water 1 250ml.bag @ Titrate IV . Q0M [facility] Rx#:[id number] Output: Urine 150 525 400 Estimated Blood Loss 50 Other: Voiding Method Indwelling Catheter Indwelling Catheter ABP, PAP, CO, CI - Last 8 Hours Arterial Blood Pressure 127/47 Arterial Blood Pressure 143/49 GENERAL: This is a 76-year-old male in no apparent distress at the time of examination. Pleasant and cooperative. HEENT: Head is atraumatic, normocephalic. Pupils are equal, round, and reactive to light. Sclerae anicteric. Conjunctivae are clear. Mucus membranes of the mouth are moist. Neck is supple. RESPIRATORY: Clear to ausculation. No wheezes, rales, or rhonchi. No use of accessory muscles. Patient maintaining oxygen saturation greater than 92%. No chest wall tenderness is noted on palpation or with deep breathing. CARDIOVASCULAR: Regular rate and rhythm. S1 and S2 noted. No systolic or diastolic murmur auscultated. No JVD noted. No S3 or S4 noted. GASTROINTESTINAL: No distention noted. Abdomen soft and round. Normal active bowel sounds auscultated x 4 quadrants. No pain or tenderness noted upon palpation. INTEGUMENTARY: Dressing noted to right neck. No drainage noted. Clean dry and intact. Swelling noted around surgical area. No cyanosis. No jaundice. EXTREMITIES: 2+ peripheral pulses. No evidence of peripheral edema. No calf tenderness noted. NEUROLOGIC: Cranial nerves II-XII intact. PSYCHIATRIC: Awake, alert, and oriented X 3. Appropriate affect. Intact judgement and insight. Results CBC & Chem 7: 05/07/17 04:49 05/07/17 04:49 Labs: Abnormal Lab Results - Last 24 Hours (Table) 05/06/17 05/06/17 05/06/17 Range/Units 13:57 14:00 14:00 WBC (3.8-10.6) k/uL RBC (4.30-5.90) m/uL Hgb (13.0-17.5) gm/dL Hct (39.0-53.0) % MCV (80.0-100.0) fL Neutrophils # (1.3-7.7) k/uL Lymphocytes # (1.0-4.8) k/uL INR 1.2 H (<1.2) APTT 37.8 H (22.0-30.0) sec ABG pH (7.35-7.45) ABG pCO2 (35-45) mmHg ABG pO2 (83-108) mmHg ABG HCO3 (21-25) mmol/L ABG Total CO2 (19-24) mmol/L ABG O2 Saturation (94-97) % Potassium (3.5-5.1) mmol/L BUN 41 H (9-20) mg/dL Creatinine 1.29 H (0.66-1.25) mg/dL Glucose 123 H (74-99) mg/dL POC Glucose (mg/dL) 120 H (75-99) mg/dL Phosphorus (2.5-4.5) mg/dL ALT 18 L (21-72) U/L 05/06/17 05/06/17 05/06/17 Range/Units 16:49 20:56 21:32 WBC (3.8-10.6) k/uL RBC (4.30-5.90) m/uL Hgb (13.0-17.5) gm/dL Hct (39.0-53.0) % MCV (80.0-100.0) fL Neutrophils # (1.3-7.7) k/uL Lymphocytes # (1.0-4.8) k/uL INR (<1.2) APTT (22.0-30.0) sec ABG pH 7.16 L* (7.35-7.45) ABG pCO2 66 H (35-45) mmHg ABG pO2 136 H (83-108) mmHg ABG HCO3 (21-25) mmol/L ABG Total CO2 25 H (19-24) mmol/L ABG O2 Saturation (94-97) % Potassium (3.5-5.1) mmol/L BUN (9-20) mg/dL Creatinine (0.66-1.25) mg/dL Glucose (74-99) mg/dL POC Glucose (mg/dL) 134 H 175 H (75-99) mg/dL Phosphorus (2.5-4.5) mg/dL ALT (21-72) U/L 05/06/17 05/06/17 05/06/17 Range/Units 22:06 22:15 22:32 WBC 11.3 H (3.8-10.6) k/uL RBC 3.76 L (4.30-5.90) m/uL Hgb 12.6 L (13.0-17.5) gm/dL Hct (39.0-53.0) % MCV 105.7 H (80.0-100.0) fL Neutrophils # 10.4 H (1.3-7.7) k/uL Lymphocytes # 0.6 L (1.0-4.8) k/uL INR (<1.2) APTT (22.0-30.0) sec ABG pH 7.29 L (7.35-7.45) ABG pCO2 55 H (35-45) mmHg ABG pO2 266 H (83-108) mmHg ABG HCO3 26 H (21-25) mmol/L ABG Total CO2 28 H (19-24) mmol/L ABG O2 Saturation 99.0 H (94-97) % Potassium (3.5-5.1) mmol/L BUN (9-20) mg/dL Creatinine (0.66-1.25) mg/dL Glucose (74-99) mg/dL POC Glucose (mg/dL) 200 H (75-99) mg/dL Phosphorus (2.5-4.5) mg/dL ALT (21-72) U/L 05/06/17 05/07/17 05/07/17 Range/Units 22:32 02:11 04:49 WBC 12.2 H (3.8-10.6) k/uL RBC 3.47 L (4.30-5.90) m/uL Hgb 11.4 L (13.0-17.5) gm/dL Hct 36.9 L (39.0-53.0) % MCV 106.5 H (80.0-100.0) fL Neutrophils # 10.8 H (1.3-7.7) k/uL Lymphocytes # 0.8 L (1.0-4.8) k/uL INR (<1.2) APTT (22.0-30.0) sec ABG pH (7.35-7.45) ABG pCO2 (35-45) mmHg ABG pO2 (83-108) mmHg ABG HCO3 (21-25) mmol/L ABG Total CO2 (19-24) mmol/L ABG O2 Saturation (94-97) % Potassium (3.5-5.1) mmol/L BUN 36 H (9-20) mg/dL Creatinine (0.66-1.25) mg/dL Glucose 218 H (74-99) mg/dL POC Glucose (mg/dL) 184 H (75-99) mg/dL Phosphorus (2.5-4.5) mg/dL ALT 19 L (21-72) U/L 05/07/17 05/07/17 05/07/17 Range/Units 04:49 07:04 12:59 WBC (3.8-10.6) k/uL RBC (4.30-5.90) m/uL Hgb (13.0-17.5) gm/dL Hct (39.0-53.0) % MCV (80.0-100.0) fL Neutrophils # (1.3-7.7) k/uL Lymphocytes # (1.0-4.8) k/uL INR (<1.2) APTT (22.0-30.0) sec ABG pH (7.35-7.45) ABG pCO2 (35-45) mmHg ABG pO2 (83-108) mmHg ABG HCO3 (21-25) mmol/L ABG Total CO2 (19-24) mmol/L ABG O2 Saturation (94-97) % Potassium 5.4 H (3.5-5.1) mmol/L BUN 36 H (9-20) mg/dL Creatinine (0.66-1.25) mg/dL Glucose 215 H (74-99) mg/dL POC Glucose (mg/dL) 243 H 214 H (75-99) mg/dL Phosphorus 4.6 H (2.5-4.5) mg/dL ALT (21-72) U/L Microbiology - Last 24 Hours (Table) 05/07/17 05:49 Urine Culture - Preliminary Urine,Catheterized Assessment and Plan Plan: ASSESSMENT: Bilateral carotid stenosis, s/p right carotid endarterectomy, POD #1 Hypertension Diabetes mellitus, type II, utilizing insulin pump Coronary artery disease Atrial fibrillation, 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 Osei Wean nitro drip as blood pressure tolerates Begin Norvasc 10mg PO daily Continue coreg. Current current dose. Continue lisinopril. Continue current dose and do not increase secondary to hyperkalemia If hypertension continues and unable to wean nitro drip, may consider adding hydralazine per Dr. Mckenzie Obtain hemoglobin A1c Capillary blood glucose accu-checks AC/HS NovoLog sliding scale insulin coverage AC/HS Home meds as appropriate Repeat potassium at 1600 Monitor labs. Repeat in AM GI prophylaxis: Pepcid 20mg PO BID DVT prophylaxis: CONCEPCIÓN hose to bilateral lower extremities Monitor vital signs and address as appropriate Discharge planning: Patient to return home when stable Further recommendations pending patient's course Nurse practitioner note has been reviewed by physician. Signing provider agrees with the documented findings, assessment, and plan of care.
--- NOTE | 2017-05-07 14:30 | P.PN ---
Subjective Progress Note Date: 05/07/17 Principal diagnosis: Hemodynamically severe right internal carotid artery stenosis, hypertension, hyperlipidemia, gout, diabetes mellitus type 2, obstructive sleep apnea with home BiPAP, history of paroxysmal atrial fibrillation on Pat home, history of coronary artery disease, GERD, and osteoarthritis. POD #1, elective right carotid endarterectomy with bovine pericardial patch angioplasty. The patient is sitting up to the bedside chair. He is in no acute distress. He is complaining of a sore throat with difficulty swallowing foods. He is currently on 6 L nasal cannula with oxygen saturations 97%. He is achieving 500 mL with encouragement on his incentive spirometry. There is ice packs in place to his to his neck to control swelling. Dressing is clean and dry with scant serosanguineous drainage to his right neck incision. Objective - Vital Signs Vital signs: Vital Signs Temp 97.2 F L 05/07/17 04:00 Pulse 79 05/07/17 06:30 Resp 20 05/07/17 04:00 BP 103/47 05/07/17 06:30 Pulse Ox 95 05/07/17 06:30 Intake & Output 05/06/17 05/07/17 05/07/17 18:59 06:59 18:59 Intake Total 1051 930.400 450 Output Total 725 400 Balance 1051 205.400 50 Intake: IV 1051 900 450 Sodium Chloride 0.9% 1, 675 450 000 ml @ 75 mls/hr IV . [id number] [facility] Rx#:[id number] ceFAZolin 3 gm In Sodium 100 Chloride 0.9% 50 ml @ 100 mls/hr IVPB ONCE ONE Rx# :[id number] Intake, IV Titration 30.400 Amount Nitroglycerin-D5w Pmx 50 30.400 mg In Dextrose/Water 1 250ml.bag @ Titrate IV . Q0M [facility] Rx#:[id number] Output: Urine 675 400 Estimated Blood Loss 50 Other: Voiding Method Indwelling Catheter Indwelling Catheter ABP, PAP, CO, CI - Last Documented Arterial Blood Pressure 127/47 - Constitutional General appearance: Present: cooperative, morbidly obese, no acute distress - EENT ENT: Present: hearing grossly normal - Neck Details: Neck with slight swelling to his neck incision, some tenderness with palpation although soft. Ice packs in place. Dressing is clean and dry with scant serosanguineous drainage. Small amount of ecchymosis surrounding his incision. - Respiratory Details: Lungs sounds essentially clear throughout, diminished to bilateral bases. Respirations are symmetrical and nonlabored. Oxygen saturation 97% on 6 L nasal cannula. He is achieving 500 mL on his incentive spirometry with much encouragement. BiPAP on standby at his bedside. - Cardiovascular Details: Regular rhythm and rate, S1 and S2 present, negative for S3, gallop or murmur. Bedside telemetry showing normal sinus rhythm heart rate 69. No edema present. - Gastrointestinal Gastrointestinal Comment(s): Abdomen is soft, non-distended, and nontender. Obese. Active bowel sounds all 4 abdominal quadrants. Passing flatus. - Genitourinary Genitourinary Comment(s): Adequate urine output, Boothe catheter for urinary retention. 400 mL output of clear jolie urine in the last 8 hours - Integumentary Integumentary Comment(s): Right neck incision clean dry and intact. Scant serosanguineous drainage. Some surrounding ecchymosis. Skin is warm, dry and pink. No clubbing or cyanosis. - Neurologic Neurologic: Present: CNII-XII intact - Musculoskeletal Musculoskeletal: Present: gait normal, strength equal bilaterally - Psychiatric Psychiatric: Present: A&O x's 3, appropriate affect, intact judgment & insight - Allied health notes Allied health notes reviewed: nursing - Labs CBC & Chem 7: 05/07/17 04:49 05/07/17 04:49 Labs: Abnormal Lab Results - Last 24 Hours (Table) 05/06/17 05/06/17 05/06/17 Range/Units 14:00 14:00 16:49 WBC (3.8-10.6) k/uL RBC (4.30-5.90) m/uL Hgb (13.0-17.5) gm/dL Hct (39.0-53.0) % MCV (80.0-100.0) fL Neutrophils # (1.3-7.7) k/uL Lymphocytes # (1.0-4.8) k/uL INR 1.2 H (<1.2) APTT 37.8 H (22.0-30.0) sec ABG pH (7.35-7.45) ABG pCO2 (35-45) mmHg ABG pO2 (83-108) mmHg ABG HCO3 (21-25) mmol/L ABG Total CO2 (19-24) mmol/L ABG O2 Saturation (94-97) % Potassium (3.5-5.1) mmol/L BUN 41 H (9-20) mg/dL Creatinine 1.29 H (0.66-1.25) mg/dL Glucose 123 H (74-99) mg/dL POC Glucose (mg/dL) 134 H (75-99) mg/dL Phosphorus (2.5-4.5) mg/dL ALT 18 L (21-72) U/L 05/06/17 05/06/17 05/06/17 Range/Units 20:56 21:32 22:06 WBC (3.8-10.6) k/uL RBC (4.30-5.90) m/uL Hgb (13.0-17.5) gm/dL Hct (39.0-53.0) % MCV (80.0-100.0) fL Neutrophils # (1.3-7.7) k/uL Lymphocytes # (1.0-4.8) k/uL INR (<1.2) APTT (22.0-30.0) sec ABG pH 7.16 L* (7.35-7.45) ABG pCO2 66 H (35-45) mmHg ABG pO2 136 H (83-108) mmHg ABG HCO3 (21-25) mmol/L ABG Total CO2 25 H (19-24) mmol/L ABG O2 Saturation (94-97) % Potassium (3.5-5.1) mmol/L BUN (9-20) mg/dL Creatinine (0.66-1.25) mg/dL Glucose (74-99) mg/dL POC Glucose (mg/dL) 175 H 200 H (75-99) mg/dL Phosphorus (2.5-4.5) mg/dL ALT (21-72) U/L 05/06/17 05/06/17 05/06/17 Range/Units 22:15 22:32 22:32 WBC 11.3 H (3.8-10.6) k/uL RBC 3.76 L (4.30-5.90) m/uL Hgb 12.6 L (13.0-17.5) gm/dL Hct (39.0-53.0) % MCV 105.7 H (80.0-100.0) fL Neutrophils # 10.4 H (1.3-7.7) k/uL Lymphocytes # 0.6 L (1.0-4.8) k/uL INR (<1.2) APTT (22.0-30.0) sec ABG pH 7.29 L (7.35-7.45) ABG pCO2 55 H (35-45) mmHg ABG pO2 266 H (83-108) mmHg ABG HCO3 26 H (21-25) mmol/L ABG Total CO2 28 H (19-24) mmol/L ABG O2 Saturation 99.0 H (94-97) % Potassium (3.5-5.1) mmol/L BUN 36 H (9-20) mg/dL Creatinine (0.66-1.25) mg/dL Glucose 218 H (74-99) mg/dL POC Glucose (mg/dL) (75-99) mg/dL Phosphorus (2.5-4.5) mg/dL ALT 19 L (21-72) U/L 05/07/17 05/07/17 05/07/17 Range/Units 02:11 04:49 04:49 WBC 12.2 H (3.8-10.6) k/uL RBC 3.47 L (4.30-5.90) m/uL Hgb 11.4 L (13.0-17.5) gm/dL Hct 36.9 L (39.0-53.0) % MCV 106.5 H (80.0-100.0) fL Neutrophils # 10.8 H (1.3-7.7) k/uL Lymphocytes # 0.8 L (1.0-4.8) k/uL INR (<1.2) APTT (22.0-30.0) sec ABG pH (7.35-7.45) ABG pCO2 (35-45) mmHg ABG pO2 (83-108) mmHg ABG HCO3 (21-25) mmol/L ABG Total CO2 (19-24) mmol/L ABG O2 Saturation (94-97) % Potassium 5.4 H (3.5-5.1) mmol/L BUN 36 H (9-20) mg/dL Creatinine (0.66-1.25) mg/dL Glucose 215 H (74-99) mg/dL POC Glucose (mg/dL) 184 H (75-99) mg/dL Phosphorus 4.6 H (2.5-4.5) mg/dL ALT (21-72) U/L 05/07/17 05/07/17 Range/Units 07:04 12:59 WBC (3.8-10.6) k/uL RBC (4.30-5.90) m/uL Hgb (13.0-17.5) gm/dL Hct (39.0-53.0) % MCV (80.0-100.0) fL Neutrophils # (1.3-7.7) k/uL Lymphocytes # (1.0-4.8) k/uL INR (<1.2) APTT (22.0-30.0) sec ABG pH (7.35-7.45) ABG pCO2 (35-45) mmHg ABG pO2 (83-108) mmHg ABG HCO3 (21-25) mmol/L ABG Total CO2 (19-24) mmol/L ABG O2 Saturation (94-97) % Potassium (3.5-5.1) mmol/L BUN (9-20) mg/dL Creatinine (0.66-1.25) mg/dL Glucose (74-99) mg/dL POC Glucose (mg/dL) 243 H 214 H (75-99) mg/dL Phosphorus (2.5-4.5) mg/dL ALT (21-72) U/L Microbiology - Last 24 Hours (Table) 05/07/17 05:49 Urine Culture - Preliminary Urine,Catheterized Assessment and Plan (1) Stenosis of right carotid artery Current Visit: Yes Status: Acute Code(s): I65.21 - OCCLUSION AND STENOSIS OF RIGHT CAROTID ARTERY SNOMED Code(s): 275182308865886 (2) Hypertension Current Visit: Yes Status: Acute Code(s): I10 - ESSENTIAL (PRIMARY) HYPERTENSION SNOMED Code(s): 18527387 (3) Hyperlipidemia Current Visit: Yes Status: Acute Code(s): E78.5 - HYPERLIPIDEMIA, UNSPECIFIED SNOMED Code(s): 38142709 (4) BPH (benign prostatic hyperplasia) Current Visit: Yes Status: Acute Code(s): N40.0 - BENIGN PROSTATIC HYPERPLASIA WITHOUT LOWER URINRY TRACT SYMP SNOMED Code(s): 893828026 (5) Paroxysmal atrial fibrillation Current Visit: Yes Status: Acute Code(s): I48.0 - PAROXYSMAL ATRIAL FIBRILLATION SNOMED Code(s): 217340137 (6) Gout Current Visit: Yes Status: Acute Code(s): M10.9 - GOUT, UNSPECIFIED SNOMED Code(s): 89991885 (7) GERD (gastroesophageal reflux disease) Current Visit: Yes Status: Acute Code(s): K21.9 - GASTRO-ESOPHAGEAL REFLUX DISEASE WITHOUT ESOPHAGITIS SNOMED Code(s): 368826474 (8) Obstructive sleep apnea Current Visit: Yes Status: Acute Code(s): G47.33 - OBSTRUCTIVE SLEEP APNEA ( ADULT) (PEDIATRIC) SNOMED Code(s): 98151357 (9) Osteoarthritis Current Visit: Yes Status: Acute Code(s): M19.90 - UNSPECIFIED OSTEOARTHRITIS, UNSPECIFIED SITE SNOMED Code(s): 153152096 (10) History of coronary artery disease Current Visit: Yes Status: Acute Code(s): Z86.79 - PERSONAL HISTORY OF OTHER DISEASES OF THE CIRCULATORY SYSTEM SNOMED Code(s): 416535682 (11) Diabetes mellitus type 2 in obese Current Visit: Yes Status: Acute Code(s): E11.69 - TYPE 2 DIABETES MELLITUS WITH OTHER SPECIFIED COMPLICATION; E66.9 - OBESITY, UNSPECIFIED SNOMED Code(s) : 00663404 (12) Morbid obesity Current Visit: Yes Status: Acute Code(s): E66.01 - MORBID (SEVERE) OBESITY DUE TO EXCESS CALORIES SNOMED Code(s): 816553235 (13) Neuropathy Current Visit: Yes Status: Acute Code(s): G62.9 - POLYNEUROPATHY, UNSPECIFIED SNOMED Code(s): 526061120 Plan: 1. Continue nitroglycerin to keep systolic blood pressure less than 130 mmHg. Wean nitroglycerin as tolerated. 2. Pain control per when necessary orders. 3. Incentive spirometry every hour while awake. Pulmonary recommendations per Dr. Kinney. 4. Medical management per Dr. Mckenzie. 5. Wean oxygen as tolerated. 6. Increase activity as tolerated. Physical therapy and occupational therapy consulted. 7. More recommendations to follow as patient progresses and care. Time with Patient: Greater than 30
[2017-05-07 15:56] LABS: HCT 34.3 % (39.0-53.0); HGB 10.8 gm/dL (13.0-17.5); MCH 33.5 pg (25.0-35.0); MCHC 31.4 g/dL (31.0-37.0); MCV 106.9 fL (80.0-100.0); Macrocytosis Moderate; Mean Platelet Volume 8.5; Platelet Count 189 k/uL (150-450); RBC 3.21 m/uL (4.30-5.90); RDW 14.6 % (11.5-15.5); WBC 12.1 k/uL (3.8-10.6)
[2017-05-07 16:08] LABS: Anion Gap 8 mmol/L; Blood Urea Nitrogen 34 mg/dL (9-20); Calcium 8.8 mg/dL (8.4-10.2); Carbon Dioxide 28 mmol/L (22-30); Chloride 105 mmol/L (98-107); Glucose 228 mg/dL (74-99); Potassium 4.8 mmol/L (3.5-5.1); Sodium 141 mmol/L (137-145)
[2017-05-07] MEDS: hydrALAZINE HCL 25 MG TAB PO SCH ×2 (16:30→20:52)
[2017-05-07 17:14] LABS: Glucose,Whole Blood 230 mg/dL (75-99)
[2017-05-07] MEDS: TRIMETHOBENZAMIDE 100 MG/ML 2 ML VIAL IM PRN (17:55)
[2017-05-07 20:36] LABS: Glucose,Whole Blood 221 mg/dL (75-99)
[2017-05-07] MEDS: SENNOSIDES 8.6 MG TAB PO SCH (20:52)
[2017-05-07 22:12] LABS: Hemoglobin A1C 6.9 % (4.0-6.0)
[2017-05-08] MEDS: CARVEDILOL 12.5 MG TAB PO SCH ×3 (00:10→23:43)
[2017-05-08] MEDS: HYDROcodone/APAP 5-325MG 1 EACH TAB PO PRN (00:11)
[2017-05-08] MEDS: DABIGATRAN 150 MG CAP PO SCH ×3 (00:11→21:22)
[2017-05-08] MEDS: metFORMIN 500 MG TAB PO SCH ×3 (00:11→23:43)
[2017-05-08] MEDS: PREGABALIN 75 MG CAP PO SCH ×3 (00:11→23:43)
[2017-05-08] MEDS: SODIUM CHLORIDE 0.9% 1,000 ML IV SCH ×2 (01:01→15:35)
[2017-05-08] MEDS: NITROGLYCERIN-D5W PMX 50 MG in DEXTROSE/WATER 1 250ML.BAG IV SCH (01:01)
[2017-05-08] MEDS: hydrALAZINE HCL 50 MG TAB PO SCH ×4 (01:38→21:22)
[2017-05-08] MEDS: TRIMETHOBENZAMIDE 100 MG/ML 2 ML VIAL IM PRN (02:09)
[2017-05-08 04:54] LABS: Basophils % (A) 0 %; Eosinophils % (A) 0 %; HCT 34.5 % (39.0-53.0); HGB 10.6 gm/dL (13.0-17.5); Lymphocytes # (A) 0.7 k/uL (1.0-4.8); Lymphocytes % (A) 5 %; MCH 32.9 pg (25.0-35.0); MCHC 30.9 g/dL (31.0-37.0); MCV 106.5 fL (80.0-100.0); Macrocytosis Moderate; Mean Platelet Volume 8.4; Monocytes # (A) 0.9 k/uL (0-1.0); Monocytes % (A) 7 %; Neutrophils # (A) 11.3 k/uL (1.3-7.7); Neutrophils % (A) 86 %; Platelet Count 185 k/uL (150-450); RBC 3.24 m/uL (4.30-5.90); RDW 14.8 % (11.5-15.5); WBC 13.2 k/uL (3.8-10.6)
[2017-05-08 05:44] LABS: Phosphorus 4.2 mg/dL (2.5-4.5); Potassium 4.8 mmol/L (3.5-5.1); Total Bilirubin 0.4 mg/dL (0.2-1.3); Total Protein 6.9 g/dL (6.3-8.2)
[2017-05-08] MEDS: amLODIPine 10 MG TAB PO SCH (07:06)
[2017-05-08] MEDS ORDERED: FUROSEMIDE 10 MG/ML 4 ML VIAL ONE (07:53)
[2017-05-08] MEDS ORDERED: FUROSEMIDE 10 MG/ML 10 ML VIAL IV STA (07:55)
[2017-05-08 07:56] LABS: Glucose,Whole Blood 232 mg/dL (75-99)
[2017-05-08] MEDS: INSULIN ASPART 100 UNIT/ML 1 ML 10 ML VIAL SQ SCH ×6 (07:59→21:29)
[2017-05-08] MEDS: ASPIRIN 81 MG PO SCH (08:31)
[2017-05-08] MEDS: FAMOTIDINE 20 MG TAB PO SCH ×2 (08:32→21:26)
[2017-05-08] MEDS: ALLOPURINOL 300 MG TAB PO SCH (08:32)
[2017-05-08] MEDS: PROPAFENONE 225 MG TAB PO SCH ×3 (08:32→21:21)
[2017-05-08] MEDS: MORPHINE SULFATE 4 MG/ML SYRINGE IVP PRN ×2 (08:33→20:18)
--- NOTE | 2017-05-08 09:28 | XR ---
EXAMINATION TYPE: XR chest 1V portable DATE OF EXAM: 05/08/2017 COMPARISON: 06/20/2011 INDICATION: Shortness of breath TECHNIQUE: Single frontal view of the chest is obtained. FINDINGS: The heart size is mildly prominent. The pulmonary vasculature is prominent. Diffuse increased lung markings are present. Correlate for pulmonary edema and volume overload IMPRESSION: 1. Correlate for pulmonary edema and volume overload. Follow-up is recommended.
--- NOTE | 2017-05-08 09:53 | P.PN ---
Progress Note - Text Progress Note Date: 05/08/17 Postop surgical don't: Day 2 status post right carotid endarterectomy. Patient is alert oriented and has had no significant complaints. Patient became somewhat confused last evening. Responded well to CPAP. Boothe catheter still in place. Neurologically intact. Some ecchymosis around the base of the neck. Some swelling of the neck but somewhat difficult to evaluate due to patient's obesity. Incision clean and dry. Labs noted: Creatinine up to 1.4. Hemoglobin still at greater than 10. Chest x-ray suggests some CHF. Patient doing fairly well status post carotid endarterectomy. Most of his issues relate to his comorbidities. Will DC Boothe. Increase activity. Continue close monitoring of respiratory and general medical status.
--- NOTE | 2017-05-08 10:26 | P.PN ---
Subjective Progress Note Date: 05/08/17 Principal diagnosis: Consult dated 05/07/2017 This is a 76-year-old male who is postop day #1 status post right carotid endarterectomy. His primary physician is Dr. Patrick Mckenzie. Currently the patient's on 6 L high flow oxygen nitroglycerin drip at 60 mcg/m a saline IV at 75 mL an hour. He has a history of hypertension gout hyperlipidemia diabetes insomnia and a whole host of other major medical problems. He has no ALLERGIES. His home medications include metformin Ambien Flomax Rythmol Lyrica Pravachol 80. Zestril Motrin insulin Lasix Pradaxa colchicine Coreg aspirin Zyloprim and Tylenol. The patient seemed be doing relatively well. Obviously has some pain in the right neck area. Denies any chest pain or chest discomfort. No fever or chills. Any respiratory issues including difficulty breathing coughing wheezing shortness of breath or phlegm production. This note dated 05/08/2017 The patient is seen again today in follow-up in the intensive care unit. He is awake and alert in no acute distress. He is currently sitting up in a chair at the bedside. He is currently on 6 L nasal cannula to maintain O2 saturations in the 90s. His IV is to KVO. His nitro drip is off. He is receiving Lasix 60 mg today. He denies any itchiness, lightheadedness or weakness. No tingling or numbness. No focal deficits. Hemodynamically stable. Afebrile. White count 13.2. Hemoglobin 10.6. Creatinine 1.40. Objective - Vital Signs Vital signs: Vital Signs Temp 98.1 F 05/08/17 08:00 Pulse 57 L 05/08/17 10:00 Resp 18 05/08/17 10:00 BP 162/58 05/08/17 08:00 Pulse Ox 98 05/08/17 10:00 Intake & Output 05/07/17 05/08/17 05/08/17 18:59 06:59 18:59 Intake Total 825 1124.025 150 Output Total 1200 1260 575 Balance -375 -135.975 -425 Weight 143 kg Intake: IV 825 900 150 Sodium Chloride 0.9% 1, 825 900 150 000 ml @ 75 mls/hr IV . [id number] JOSÉ MIGUEL Rx#:[id number] Intake, IV Titration 224.025 Amount Nitroglycerin-D5w Pmx 50 224.025 mg In Dextrose/Water 1 250ml.bag @ Titrate IV . Q0M JOSÉ MIGUEL Rx#:[id number] Output: Urine 1200 1260 575 Other: Voiding Method Indwelling Catheter Indwelling Catheter Indwelling Catheter ABP, PAP, CO, CI - Last Documented Arterial Blood Pressure 131/43 - Exam GENERAL EXAM: Alert, active, comfortable in no apparent distress. HEAD: Normocephalic. EYES: Normal reaction of pupils, equal size. NOSE: Clear with pink turbinates. THROAT: No erythema or exudates. NECK: Surgical site clean dry well approximated. No masses, no JVD. CHEST: No chest wall deformity. LUNGS: Equal air entry with no crackles, wheeze, rhonchi or dullness. CVS: S1 and S2 normal with no audible murmur, regular rhythm. ABDOMEN: No hepatosplenomegaly, normal bowel sounds, no guarding or rigidity. SPINE: No scoliosis or deformity SKIN: No rashes CENTRAL NERVOUS SYSTEM: No focal deficits, tone is normal in all 4 extremities. EXTREMITIES: There is no peripheral edema. No clubbing, no cyanosis. Peripheral pulses are intact. - Labs CBC & Chem 7: 05/08/17 04:30 05/08/17 04:30 Labs: Abnormal Lab Results - Last 24 Hours (Table) 05/07/17 05/07/17 05/07/17 Range/Units 04:49 12:59 15:45 WBC (3.8-10.6) k/uL RBC (4.30-5.90) m/uL Hgb (13.0-17.5) gm/dL Hct (39.0-53.0) % MCV (80.0-100.0) fL MCHC (31.0-37.0) g/dL Neutrophils # (1.3-7.7) k/uL Lymphocytes # (1.0-4.8) k/uL BUN 34 H (9-20) mg/dL Creatinine (0.66-1.25) mg/dL Glucose 228 H (74-99) mg/dL POC Glucose (mg/dL) 214 H (75-99) mg/dL Hemoglobin A1c 6.9 H (4.0-6.0) % 05/07/17 05/07/17 05/07/17 Range/Units 15:45 17:12 20:34 WBC 12.1 H (3.8-10.6) k/uL RBC 3.21 L (4.30-5.90) m/uL Hgb 10.8 L (13.0-17.5) gm/dL Hct 34.3 L (39.0-53.0) % MCV 106.9 H (80.0-100.0) fL MCHC (31.0-37.0) g/dL Neutrophils # (1.3-7.7) k/uL Lymphocytes # (1.0-4.8) k/uL BUN (9-20) mg/dL Creatinine (0.66-1.25) mg/dL Glucose (74-99) mg/dL POC Glucose (mg/dL) 230 H 221 H (75-99) mg/dL Hemoglobin A1c (4.0-6.0) % 05/08/17 05/08/17 05/08/17 Range/Units 04:30 04:30 07:55 WBC 13.2 H (3.8-10.6) k/uL RBC 3.24 L (4.30-5.90) m/uL Hgb 10.6 L (13.0-17.5) gm/dL Hct 34.5 L (39.0-53.0) % MCV 106.5 H (80.0-100.0) fL MCHC 30.9 L (31.0-37.0) g/dL Neutrophils # 11.3 H (1.3-7.7) k/uL Lymphocytes # 0.7 L (1.0-4.8) k/uL BUN 38 H (9-20) mg/dL Creatinine 1.40 H (0.66-1.25) mg/dL Glucose 187 H (74-99) mg/dL POC Glucose (mg/dL) 232 H (75-99) mg/dL Hemoglobin A1c (4.0-6.0) % Microbiology - Last 24 Hours (Table) 05/07/17 05:49 Urine Culture - Preliminary Urine,Catheterized Assessment and Plan Assessment: Assessment Postop day #2, status post right carotid endarterectomy History of diabetes Hypertension Hyperlipidemia Gout. Obesity Multiple other medical problems and comorbidities as listed above Plan: The patient was seen and evaluated by Dr. Kinney. He did get an additional 60 mg of IV Lasix today. He is stable from the pulmonary standpoint. We'll continue to wean down the FiO2 as tolerated. BiPAP intermittently. He could be transferred out of the intensive care unit today. We will continue to follow and make further recommendations based on his clinical status. I, the cosigning physician, performed a history & physical examination of the patient. Lungs sounds with crackles in the bilateral posterior bases. Maintaining good O2 saturations in the 90s on 6 L/m per nasal cannula. I discussed the assessment and plan of care with my nurse practitioner, Fabiana Gee. I attest to the above note as dictated by her.
--- NOTE | 2017-05-08 11:24 | P.PN ---
Subjective Progress Note Date: 05/08/17 76-year-old male who underwent elective right carotid endarterectomy with patch angioplasty on 05/06/[address] Mckenzie was consulted for medical management. The patient has a history of bilateral carotid stenosis, atrial fibrillation, coronary disease, diabetes mellitus, gastroesophageal reflux disease, hyperlipidemia, hypertension, osteoarthritis, and sleep apnea. 05/07/2017 The patient was seen and examined in the intensive care unit on rounds Dr. Mckenzie. The patient is sitting up in the chair. Family is at the bedside. The patient remains on a nitro drip at 60 mcg/min. Systolic blood pressures ranging in the 140s. The patient is complaining of pain at the surgical site. Dressing is in place. Swelling is noted near surgical site. Patient denies shortness of breath or coughing. Denies chest pain or pressure. Denies nausea or vomiting. States he is tolerating PO intake well without nausea or vomiting. 05/08/2017 Patient seen and examined in the intensive care unit on rounds with Dr. Mckenzie. The patient is sitting up in the chair. the patient's nitro drip has been weaned off. He was started on Norvasc 10 mg daily yesterday along with hydralazine 50 mg by mouth 3 times a day. Patients blood sugars remain elevated in the 200s. Patient utilizes an insulin pump at home. Patient's insulin pump is currently not with him as it was empty and patient's was going to bring his insulin pump back to the hospital after she refilled it. patient remains on 6 L nasal cannula with oxygen saturations greater than 92%. He denies shortness of breath. Denies chest pain or pressure. Tolerating by mouth intake without nausea or vomiting. WBC 13.2. Hemoglobin 10.6. BUN 38. Creatinine 1.40. Objective - Vital Signs Vital signs: Vital Signs Temp 98.1 F 05/08/17 08:00 Pulse 57 L 05/08/17 10:00 Resp 18 05/08/17 10:00 BP 162/58 05/08/17 08:00 Pulse Ox 98 05/08/17 10:00 Intake & Output 05/07/17 05/08/17 05/08/17 18:59 06:59 18:59 Intake Total 825 1124.025 150 Output Total 1200 1260 575 Balance -375 -135.975 -425 Weight 143 kg Intake: IV 825 900 150 Sodium Chloride 0.9% 1, 825 900 150 000 ml @ 75 mls/hr IV . [id number] JOSÉ MIGUEL Rx#:[id number] Intake, IV Titration 224.025 Amount Nitroglycerin-D5w Pmx 50 224.025 mg In Dextrose/Water 1 250ml.bag @ Titrate IV . Q0M JOSÉ MIGUEL Rx#:[id number] Output: Urine 1200 1260 575 Other: Voiding Method Indwelling Catheter Indwelling Catheter Indwelling Catheter ABP, PAP, CO, CI - Last Documented Arterial Blood Pressure 131/43 - Exam GENERAL: This is a 76-year-old male in no apparent distress at the time of examination. Pleasant and cooperative. HEENT: Head is atraumatic, normocephalic. Pupils are equal, round, and reactive to light. Sclerae anicteric. Conjunctivae are clear. Mucus membranes of the mouth are moist. Neck is supple. RESPIRATORY: Clear to ausculation. No wheezes, rales, or rhonchi. No use of accessory muscles. Patient maintaining oxygen saturation greater than 92%. No chest wall tenderness is noted on palpation or with deep breathing. CARDIOVASCULAR: Regular rate and rhythm. S1 and S2 noted. No systolic or diastolic murmur auscultated. No JVD noted. No S3 or S4 noted. GASTROINTESTINAL: No distention noted. Abdomen soft and round. Normal active bowel sounds auscultated x 4 quadrants. No pain or tenderness noted upon palpation. INTEGUMENTARY: Dressing noted to right neck. No drainage noted. Clean dry and intact. Swelling noted around surgical area. No cyanosis. No jaundice. EXTREMITIES: 2+ peripheral pulses. No evidence of peripheral edema. No calf tenderness noted. NEUROLOGIC: Cranial nerves II-XII intact. PSYCHIATRIC: Awake, alert, and oriented X 3. Appropriate affect. Intact judgement and insight. - Labs CBC & Chem 7: 05/08/17 04:30 05/08/17 04:30 Labs: Abnormal Lab Results - Last 24 Hours (Table) 05/07/17 05/07/17 05/07/17 Range/Units 04:49 12:59 15:45 WBC (3.8-10.6) k/uL RBC (4.30-5.90) m/uL Hgb (13.0-17.5) gm/dL Hct (39.0-53.0) % MCV (80.0-100.0) fL MCHC (31.0-37.0) g/dL Neutrophils # (1.3-7.7) k/uL Lymphocytes # (1.0-4.8) k/uL BUN 34 H (9-20) mg/dL Creatinine (0.66-1.25) mg/dL Glucose 228 H (74-99) mg/dL POC Glucose (mg/dL) 214 H (75-99) mg/dL Hemoglobin A1c 6.9 H (4.0-6.0) % 05/07/17 05/07/17 05/07/17 Range/Units 15:45 17:12 20:34 WBC 12.1 H (3.8-10.6) k/uL RBC 3.21 L (4.30-5.90) m/uL Hgb 10.8 L (13.0-17.5) gm/dL Hct 34.3 L (39.0-53.0) % MCV 106.9 H (80.0-100.0) fL MCHC (31.0-37.0) g/dL Neutrophils # (1.3-7.7) k/uL Lymphocytes # (1.0-4.8) k/uL BUN (9-20) mg/dL Creatinine (0.66-1.25) mg/dL Glucose (74-99) mg/dL POC Glucose (mg/dL) 230 H 221 H (75-99) mg/dL Hemoglobin A1c (4.0-6.0) % 05/08/17 05/08/17 05/08/17 Range/Units 04:30 04:30 07:55 WBC 13.2 H (3.8-10.6) k/uL RBC 3.24 L (4.30-5.90) m/uL Hgb 10.6 L (13.0-17.5) gm/dL Hct 34.5 L (39.0-53.0) % MCV 106.5 H (80.0-100.0) fL MCHC 30.9 L (31.0-37.0) g/dL Neutrophils # 11.3 H (1.3-7.7) k/uL Lymphocytes # 0.7 L (1.0-4.8) k/uL BUN 38 H (9-20) mg/dL Creatinine 1.40 H (0.66-1.25) mg/dL Glucose 187 H (74-99) mg/dL POC Glucose (mg/dL) 232 H (75-99) mg/dL Hemoglobin A1c (4.0-6.0) % Microbiology - Last 24 Hours (Table) 05/07/17 05:49 Urine Culture - Preliminary Urine,Catheterized Assessment and Plan Plan: ASSESSMENT: Bilateral carotid stenosis, s/p right carotid endarterectomy, POD #2 Hypertension Diabetes mellitus, type II, utilizing insulin pump at home Coronary artery disease Atrial fibrillation, 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 Osei Continue Coreg, Norvasc, and hydralazine Continue lisinopril. Continue current dose and do not increase secondary to hyperkalemia If hypertension continues and unable to wean nitro drip, may consider adding hydralazine per Dr. Mckenzie Capillary blood glucose accu-checks AC/HS NovoLog sliding scale insulin coverage AC/HS Begin NovoLog 10 units with meals and Levemir 40 units at bedtime If the patient's brings patient's insulin pump, patient may use his own insulin pump Home meds as appropriate Monitor labs GI prophylaxis: Pepcid 20mg PO BID DVT prophylaxis: CONCEPCIÓN hose to bilateral lower extremities Monitor vital signs and address as appropriate Discharge planning: Patient to return home when stable Further recommendations pending patient's course Nurse practitioner note has been reviewed by physician. Signing provider agrees with the documented findings, assessment, and plan of care.
[2017-05-08 12:11] LABS: Glucose,Whole Blood 217 mg/dL (75-99)
[2017-05-08] MEDS: TAMSULOSIN 0.4 MG CAP.ER.24H PO SCH (12:31)
[2017-05-08] MEDS: FUROSEMIDE 80 MG TAB PO SCH ×2 (12:31→18:33)
--- NOTE | 2017-05-08 13:57 | P.PN ---
Subjective Progress Note Date: 05/08/17 76-year-old male who underwent elective right carotid endarterectomy with patch angioplasty on 05/06/[address] Mckenzie was consulted for medical management. The patient has a history of bilateral carotid stenosis, atrial fibrillation, coronary disease, diabetes mellitus, gastroesophageal reflux disease, hyperlipidemia, hypertension, osteoarthritis, and sleep apnea. 05/07/2017 The patient was seen and examined in the intensive care unit on rounds Dr. Mckenzie. The patient is sitting up in the chair. Family is at the bedside. The patient remains on a nitro drip at 60 mcg/min. Systolic blood pressures ranging in the 140s. The patient is complaining of pain at the surgical site. Dressing is in place. Swelling is noted near surgical site. Patient denies shortness of breath or coughing. Denies chest pain or pressure. Denies nausea or vomiting. States he is tolerating PO intake well without nausea or vomiting. 05/08/2017 Patient remains in intensive care unit. He is postop day #2 right carotid endarterectomy. The patient is sitting up in the chair. the patient's nitro drip has been weaned off. He was started on Norvasc 10 mg daily yesterday along with hydralazine 50 mg by mouth 3 times a day. Patients blood sugars remain elevated in the 200s. Patient utilizes an insulin pump at home. Patient 's insulin pump is currently not with him as it was empty and patient's was going to bring his insulin pump back to the hospital after she refilled it. patient remains on 6 L nasal cannula with oxygen saturations greater than 92%. He denies shortness of breath. Denies chest pain or pressure. Tolerating by mouth intake without nausea or vomiting. WBC 13.2. Hemoglobin 10.6. BUN 38. Creatinine 1.40. Objective - Vital Signs Vital signs: Vital Signs Temp 98.1 F 05/08/17 08:00 Pulse 57 L 05/08/17 10:00 Resp 18 05/08/17 10:00 BP 162/58 05/08/17 08:00 Pulse Ox 98 05/08/17 10:00 Intake & Output 05/07/17 05/08/17 05/08/17 18:59 06:59 18:59 Intake Total 825 1124.025 150 Output Total 1200 1260 575 Balance -375 -135.975 -413 Weight 143 kg Intake: IV 825 900 150 Sodium Chloride 0.9% 1, 825 900 150 000 ml @ 75 mls/hr IV . [id number] JOSÉ MIGUEL Rx#:[id number] Intake, IV Titration 224.025 Amount Nitroglycerin-D5w Pmx 50 224.025 mg In Dextrose/Water 1 250ml.bag @ Titrate IV . Q0M JOSÉ MIGUEL Rx#:[id number] Output: Urine 1200 1260 575 Other: Voiding Method Indwelling Catheter Indwelling Catheter Indwelling Catheter ABP, PAP, CO, CI - Last Documented Arterial Blood Pressure 131/43 - Exam GENERAL: This is a 76-year-old male in no apparent distress at the time of examination. Pleasant and cooperative. HEENT: Head is atraumatic, normocephalic. Pupils are equal, round, and reactive to light. Sclerae anicteric. Conjunctivae are clear. Mucus membranes of the mouth are moist. Neck is supple. RESPIRATORY: Clear to ausculation. No wheezes, rales, or rhonchi. No use of accessory muscles. Patient maintaining oxygen saturation greater than 92%. No chest wall tenderness is noted on palpation or with deep breathing. CARDIOVASCULAR: Regular rate and rhythm. S1 and S2 noted. No systolic or diastolic murmur auscultated. No JVD noted. No S3 or S4 noted. GASTROINTESTINAL: No distention noted. Abdomen soft and round. Normal active bowel sounds auscultated x 4 quadrants. No pain or tenderness noted upon palpation. INTEGUMENTARY: Dressing noted to right neck. No drainage noted. Clean dry and intact. Swelling noted around surgical area. No cyanosis. No jaundice. EXTREMITIES: 2+ peripheral pulses. No evidence of peripheral edema. No calf tenderness noted. NEUROLOGIC: Cranial nerves II-XII intact. PSYCHIATRIC: Awake, alert, and oriented X 3. Appropriate affect. Intact judgement and insight. - Labs CBC & Chem 7: 05/08/17 04:30 05/08/17 04:30 Labs: Abnormal Lab Results - Last 24 Hours (Table) 05/07/17 05/07/17 05/07/17 Range/Units 04:49 12:59 15:45 WBC (3.8-10.6) k/uL RBC (4.30-5.90) m/uL Hgb (13.0-17.5) gm/dL Hct (39.0-53.0) % MCV (80.0-100.0) fL MCHC (31.0-37.0) g/dL Neutrophils # (1.3-7.7) k/uL Lymphocytes # (1.0-4.8) k/uL BUN 34 H (9-20) mg/dL Creatinine (0.66-1.25) mg/dL Glucose 228 H (74-99) mg/dL POC Glucose (mg/dL) 214 H (75-99) mg/dL Hemoglobin A1c 6.9 H (4.0-6.0) % 05/07/17 05/07/17 05/07/17 Range/Units 15:45 17:12 20:34 WBC 12.1 H (3.8-10.6) k/uL RBC 3.21 L (4.30-5.90) m/uL Hgb 10.8 L (13.0-17.5) gm/dL Hct 34.3 L (39.0-53.0) % MCV 106.9 H (80.0-100.0) fL MCHC (31.0-37.0) g/dL Neutrophils # (1.3-7.7) k/uL Lymphocytes # (1.0-4.8) k/uL BUN (9-20) mg/dL Creatinine (0.66-1.25) mg/dL Glucose (74-99) mg/dL POC Glucose (mg/dL) 230 H 221 H (75-99) mg/dL Hemoglobin A1c (4.0-6.0) % 05/08/17 05/08/17 05/08/17 Range/Units 04:30 04:30 07:55 WBC 13.2 H (3.8-10.6) k/uL RBC 3.24 L (4.30-5.90) m/uL Hgb 10.6 L (13.0-17.5) gm/dL Hct 34.5 L (39.0-53.0) % MCV 106.5 H (80.0-100.0) fL MCHC 30.9 L (31.0-37.0) g/dL Neutrophils # 11.3 H (1.3-7.7) k/uL Lymphocytes # 0.7 L (1.0-4.8) k/uL BUN 38 H (9-20) mg/dL Creatinine 1.40 H (0.66-1.25) mg/dL Glucose 187 H (74-99) mg/dL POC Glucose (mg/dL) 232 H (75-99) mg/dL Hemoglobin A1c (4.0-6.0) % Microbiology - Last 24 Hours (Table) 05/07/17 05:49 Urine Culture - Preliminary Urine,Catheterized Assessment and Plan Plan: ASSESSMENT: Bilateral carotid stenosis, s/p right carotid endarterectomy, POD #2 Hypertension Diabetes mellitus, type II, utilizing insulin pump at home Coronary artery disease Atrial fibrillation, on alf anticoagulation with Pradaxa Hyperlipidemia Osteoarthritis with previous multiple joint replacements Morbid obesity: BMI 42.8 PLAN: Anticipate transfer to general medical floor Continue post operative management per Dr. Osei Continue Coreg, Norvasc, and hydralazine Continue lisinopril. Continue current dose and do not increase secondary to hyperkalemia Capillary blood glucose accu-checks AC/HS NovoLog sliding scale insulin coverage AC/HS Begin NovoLog 10 units with meals and Levemir 40 units at bedtime If the patient's brings patient's insulin pump, patient may use his own insulin pump Home meds as appropriate Monitor labs GI prophylaxis: Pepcid 20mg PO BID DVT prophylaxis: CONCEPCIÓN hose to bilateral lower extremities Monitor vital signs and address as appropriate Discharge planning: Patient to return home when stable Further recommendations pending patient's course Nurse practitioner note has been reviewed by physician. Signing provider agrees with the documented findings, assessment, and plan of care.
[2017-05-08 18:17] LABS: Glucose,Whole Blood 171 mg/dL (75-99)
[2017-05-08] MEDS: NITROGLYCERIN SL TABS 0.4 MG TAB SUBLINGUAL PRN ×2 (20:09→20:19)
[2017-05-08] MEDS ORDERED: INSULIN DETEMIR 100 UNIT/ML 10 ML VIAL SQ SCH (21:00)
[2017-05-08 21:02] LABS: Glucose,Whole Blood 193 mg/dL (75-99)
[2017-05-08] MEDS: LISINOPRIL 2.5 MG TAB PO SCH (21:21)
[2017-05-08] MEDS: SENNOSIDES 8.6 MG TAB PO SCH (21:22)
[2017-05-08] MEDS: PRAVASTATIN SODIUM 40 MG TAB PO SCH (21:22)
[2017-05-08] MEDS: NITROGLYCERIN OINT 1 INCH/GM PACKET TOPICAL SCH ×2 (21:33→23:46)
[2017-05-08] MEDS ORDERED: EPINEPHrine 10 ML SYRINGE (0.1 MG/ML) ONE ×2 (22:42→22:48)
[2017-05-08] MEDS ORDERED: NOREPINEPHRIN 4 MG-0.9% NS PMX 4 MG/250 ML ML IV ONE (22:51)
[2017-05-08 22:53] LABS: Glucose,Whole Blood 184 mg/dL (75-99)
[2017-05-08 23:25] LABS: ABG Base Excess -0.4 mmol/L; ABG HCO3 28 mmol/L (21-25); ABG Oxygen Saturation 77.5 % (94-97); ABG PO2 52 mmHg (83-108); ABG TCO2 30 mmol/L (19-24)
[2017-05-08 23:28] LABS: ABG PH 7.19 (7.35-7.45)
[2017-05-08 23:29] LABS: ABG PCO2 74 mmHg (35-45)
[2017-05-08 23:48] LABS: Basophils # (A) 0.1 k/uL (0-0.2); Basophils % (A) 0 %; Eosinophils # (A) 0.1 k/uL (0-0.7); Eosinophils % (A) 1 %; HCT 36.7 % (39.0-53.0); HGB 11.3 gm/dL (13.0-17.5); Hypochromasia Moderate; Lymphocytes # (A) 1.8 k/uL (1.0-4.8); Lymphocytes % (A) 7 %; MCH 33.2 pg (25.0-35.0); MCHC 30.8 g/dL (31.0-37.0); MCV 107.8 fL (80.0-100.0); Macrocytosis Marked; Monocytes # (A) 1.2 k/uL (0-1.0); Monocytes % (A) 4 %; Neutrophils # (A) 23.8 k/uL (1.3-7.7); Neutrophils % (A) 88 %; Platelet Count 224 k/uL (150-450); RDW 14.8 % (11.5-15.5)
--- NOTE | 2017-05-08 23:49 | XR ---
EXAMINATION TYPE: XR chest 1V portable DATE OF EXAM: 05/08/2017 COMPARISON: Today HISTORY: Intubation TECHNIQUE: Single frontal view of the chest is obtained. FINDINGS: There is moderate pulmonary edema. Endotracheal tube appears in fairly good position 5 cm from the asutin. Trachea is midline. Thoracic aorta is atheromatous. IMPRESSION: There is moderately severe pulmonary edema that is worse than exam earlier today at 6:20 AM. Endotracheal tube appears in good position.
[2017-05-08 23:56] LABS: Albumin 3.9 g/dL (3.5-5.0); Calcium 8.6 mg/dL (8.4-10.2); Potassium 4.1 mmol/L (3.5-5.1); Total Bilirubin 0.6 mg/dL (0.2-1.3); Total Protein 7.2 g/dL (6.3-8.2)
[2017-05-09] LABS: WBC 27.1 k/uL (3.8-10.6)
[2017-05-09] MEDS ORDERED: NOREPINEPHRIN 4 MG-0.9% NS PMX 4 MG/250 ML ML IV ONE (01:15)
[2017-05-09] MEDS: PROPOFOL 1,000 MG in EMPTY BAG 1 BAG IV SCH ×3 (01:46→20:41)
[2017-05-09] MEDS: NOREPINEPHRIN 4 MG-0.9% NS PMX 4 MG/250 ML ML IV SCH ×2 (01:53→06:48)
--- NOTE | 2017-05-09 02:17 | XR ---
EXAMINATION TYPE: XR chest 1V portable DATE OF EXAM: 05/09/2017 COMPARISON: Yesterday HISTORY: Check tube placement TECHNIQUE: Single frontal view of the chest is obtained. FINDINGS: There is moderate pulmonary edema. Endotracheal tube is 6 cm from the [place] in fairly goo d position. There is a nasogastric tube the appears to be in good position below the diaphragm. There are chest leads. IMPRESSION: Tubing appears in good position. There is moderately severe pulmonary edema unchanged co mpared to the exam 2 hours ago.
[2017-05-09 02:29] LABS: Partial Thromboplastin Time 48.8 sec (22.0-30.0); Prothrombin Time 18.1 sec (9.0-12.0)
[2017-05-09 02:42] LABS: Glucose,Whole Blood 304 mg/dL (75-99)
[2017-05-09] MEDS: INSULIN REGULAR 100 UNIT in SODIUM CHLORIDE 0.9% 100 ML IV SCH ×2 (03:47→21:42)
[2017-05-09 04:06] LABS: Glucose,Whole Blood 310 mg/dL (75-99)
[2017-05-09 04:31] LABS: Glucose,Whole Blood 287 mg/dL (75-99)
[2017-05-09 04:45] LABS: ABG Base Excess -1.9 mmol/L; ABG HCO3 24 mmol/L (21-25); ABG Oxygen Saturation 87.2 % (94-97); ABG PCO2 48 mmHg (35-45); ABG PH 7.32 (7.35-7.45); ABG PO2 55 mmHg (83-108); ABG TCO2 26 mmol/L (19-24)
[2017-05-09 05:08] LABS: Basophils % (A) 0 %; Eosinophils # (A) 0.1 k/uL (0-0.7); Eosinophils % (A) 1 %; HCT 35.8 % (39.0-53.0); Hypochromasia Slight; Lymphocytes # (A) 0.5 k/uL (1.0-4.8); Lymphocytes % (A) 2 %; MCH 33.7 pg (25.0-35.0); MCHC 30.8 g/dL (31.0-37.0); MCV 109.2 fL (80.0-100.0); Mean Platelet Volume 8.7; Monocytes # (A) 0.9 k/uL (0-1.0); Monocytes % (A) 5 %; Neutrophils # (A) 17.7 k/uL (1.3-7.7); Neutrophils % (A) 91 %; Platelet Count 216 k/uL (150-450); RBC 3.28 m/uL (4.30-5.90); RDW 14.8 % (11.5-15.5); WBC 19.5 k/uL (3.8-10.6)
[2017-05-09 05:17] LABS: Macrocytosis Marked
[2017-05-09 05:18] LABS: Albumin 3.8 g/dL (3.5-5.0); Calcium 8.6 mg/dL (8.4-10.2); Potassium 5.1 mmol/L (3.5-5.1); Total Bilirubin 0.6 mg/dL (0.2-1.3); Total Protein 6.9 g/dL (6.3-8.2)
[2017-05-09] MEDS ORDERED: FUROSEMIDE 10 MG/ML 4 ML VIAL IV STA (05:39)
[2017-05-09 05:41] LABS: Glucose,Whole Blood 276 mg/dL (75-99)
[2017-05-09] MEDS: PIPERACILLIN-TAZOBACTAM 3.375 GM in DEXTROSE/WATER 1 50ML.BAG IVPB SCH ×3 (06:25→23:25)
[2017-05-09 06:47] LABS: Glucose,Whole Blood 273 mg/dL (75-99)
[2017-05-09 08:18] LABS: Glucose,Whole Blood 267 mg/dL (75-99)
[2017-05-09] MEDS: PANTOPRAZOLE 40 MG/10 ML VIAL IVP SCH ×2 (08:30→20:42)
[2017-05-09] MEDS ORDERED: FUROSEMIDE 10 MG/ML 10 ML VIAL IV STA (09:27)
[2017-05-09 09:31] LABS: Glucose,Whole Blood 230 mg/dL (75-99)
[2017-05-09] MEDS: PROPAFENONE 225 MG TAB PO SCH ×3 (09:32→20:42)
--- NOTE | 2017-05-09 09:36 | P.PN ---
Progress Note - Text Progress Note Date: 05/09/17 Surgical postop note: Day 3 post right carotid endarterectomy. Events of last evening reviewed in detail. Patient apparently had a respiratory and then full arrest. Patient was aggressively resuscitated and is now currently on the ventilator. Patient is sedated on Diprivan and. Blood pressure supported with 20 mics of levophed. Little urine output since last p.m. Creatinine is up to 2.39. Oxygenation stable on vent support. Chest x-ray shows diffuse pulmonary edema. Hemoglobin up to 11 but white count 19.5. EKG at time of the event suggests anterior lateral ischemia. Patient at this time having multisystem issues. Suspect a precipitating cardiac event. Prognosis very guarded at this time. Discussed the critical nature of current status with the family in detail. Nephrology, engineering operator, and cardiology currently caring for their specific issues. Continue aggressive medical therapy.
--- NOTE | 2017-05-09 09:39 | P.NPCON ---
History of Present Illness - Reason for Consult Consult date: 05/09/17 acute renal failure - Chief Complaint Acute kidney injury. Carotid endarterectomy - History of Present Illness This is a 76-year-old male who underwent elective right carotid endarterectomy on 05/06/2017. He was doing fairly well until yesterday late night and went to cardiac arrest with down time of approximately 30 minutes. He was intubated and moved to ICU. He is a anuric currently his creatinine which was 1.2 on admission has gone up to 2.39. His had ultrasounds in April 2016 with large kidneys's reported size is 13.2 and 14.9 cm. His previous creatinines as of 05/06/2017 was 1.2 and on 05/08/2087 and remained 1.2. In the past though it has been higher at 1.7 to as of 03/04/2017. The cause of that worsening is not clear at this time. Currently on levo fed. He received 1 dose of Lasix 80 mg overnight without any significant improvement in his urine output. He is known with obstructive sleep apnea, diabetes, atrial fibrillation, past history of pericardial effusion gout and diverticulitis. He uses a cane to walk and uses a wheelchair also as needed. Supposedly has had cardiac ablation and heart catheterization in the past. Past Medical History Past Medical History: Atrial Fibrillation, Coronary Artery Disease (CAD), Diabetes Mellitus, GERD/Reflux, Hyperlipidemia, Hypertension, Osteoarthritis (OA ), Sleep Apnea/CPAP/BIPAP Additional Past Medical History / Comment(s): pericardial effusion, gout, blockage shaka carotid arteries, neuropathy, diverticulitis, insulin pump, uses a cane- wheelchair for distance. edema shaka feet History of Any Multi-Drug Resistant Organisms: None Reported Past Surgical History: Cardiac Ablation, Heart Catheterization, Orthopedic Surgery Additional Past Surgical History / Comment(s): carpal tunnel rt wrist, rt knee replacement, shaka hip replacement, drainage for pericaridal effusion, cardioversion, arthroscopy shaka knees Past Anesthesia/Blood Transfusion Reactions: Motion Sickness Past Psychological History: No Psychological Hx Reported Smoking Status: Never smoker Past Alcohol Use History: None Reported Past Drug Use History: None Reported - Past Family History Mother Family Medical History: No Reported History Medications and Allergies Home Medications Medication Instructions Recorded Confirmed Type Acetaminophen Tab [Tylenol Tab] 650 mg PO Q4H PRN 03/04/17 05/06/17 History Allopurinol [Zyloprim] 300 mg PO DAILY@1200 03/04/17 05/06/17 History Carvedilol [Coreg] 12.5 mg PO DAILY@1200,2330 03/04/17 05/06/17 History Colchicine [Colcrys] 0.6 mg PO BID PRN 03/04/17 05/06/17 History Furosemide [Lasix] 80 mg PO DAILY@1200,1800 03/04/17 05/06/17 History INSULIN LISPRO (For Pump) [humaLOG 0.01 units SQ-PUMP CONTINUOUS 03/04/17 History (For Pump)] Ibuprofen [Motrin] 800 mg PO TID PRN 03/04/17 05/06/17 History Lisinopril [Zestril] 2.5 mg PO HS 03/04/17 05/06/17 History Meclizine [Antivert] 25 mg PO TID PRN 03/04/17 05/06/17 History Pravastatin Sodium [Pravachol] 40 mg PO HS 03/04/17 05/06/17 History Pregabalin [Lyrica] 150 mg PO DAILY@1200,2330 03/04/17 05/06/17 History Propafenone HCl [Rythmol Sr] 325 mg PO DAILY@1200,2330 03/04/17 05/06/17 History Tamsulosin HCl [Flomax] 0.4 mg PO DAILY@1200 03/04/17 05/06/17 History Zolpidem [Ambien] 10 mg PO HS 03/04/17 05/06/17 History metFORMIN HCL 500 mg PO DAILY@1200,2330 03/04/17 05/06/17 History Aspirin [Adult Low Dose Aspirin EC] 81 mg PO DAILY@1200 04/27/17 05/06/17 History Dabigatran [Pradaxa] 150 mg PO DAILY@1200,2330 04/27/17 05/06/17 History Allergies Allergy/AdvReac Type Severity Reaction Status Date / Time No Known Allergies Allergy Verified 05/06/17 21:02 Physical Exam Vitals: Vital Signs Temp Pulse Resp BP Pulse Ox 05/09/17 08:00 100.5 F H 89 14 102/39 88 L 05/09/17 07:00 89 26 H 84/50 88 L 05/09/17 06:30 93 26 H 106/53 88 L 05/09/17 06:00 93 25 H 106/53 89 L 05/09/17 05:30 94 26 H 111/57 88 L 05/09/17 05:00 92 28 H 110/52 87 L 05/09/17 04:00 99.8 F H 96 24 103/52 84 L 05/09/17 03:00 96 18 135/59 84 L 05/09/17 02:00 99.3 F 97 24 124/66 83 L 05/09/17 01:00 103 H 16 142/66 84 L 05/09/17 00:00 98.6 F 101 H 22 113/58 78 L 05/08/17 23:37 101 H 19 123/58 78 L 05/08/17 23:00 114 H 20 142/63 79 L 05/08/17 22:00 104 H 16 175/77 96 05/08/17 21:00 91 20 151/61 97 05/08/17 20:00 98.1 F 101 H 50 H 151/64 81 L 05/08/17 19:00 87 28 H 144/59 94 L 05/08/17 18:00 78 20 144/59 93 L 05/08/17 17:00 76 18 92 L 05/08/17 16:00 98.2 F 91 18 92 L 05/08/17 15:00 70 20 93 L 05/08/17 14:00 62 98 05/08/17 13:00 66 93 L 05/08/17 12:00 98.2 F 63 93 L 05/08/17 11:00 63 94 L 05/08/17 10:00 57 L 18 98 Intake and Output 05/08/17 05/09/17 05/09/17 22:59 06:59 14:59 Intake Total 1000 1429.732 103.007 Output Total 750 140 Balance 250 1289.732 103.007 Intake: Intake, IV Titration 1000 1429.732 103.007 Amount Insulin Regular 100 unit 26.750 In Sodium Chloride 0.9% 100 ml @ Per Protocol IV .Q0M [facility] Rx#:[id number] Norepinephrin 4 mg-0.9% 226.000 31.5 Ns Pmx 4 mg In 250 ml @ Titrate IV .Q0M [facility] Rx#: [id number] Propofol 1,000 mg In 16.982 71.507 Empty Bag 1 bag @ Titrate IV .Q0M [facility] Rx#: [id number] Sodium Chloride 0.9% 1, 1000 1160 000 ml As IV .[facility] Rx#:[id number] Output: Urine 750 140 Other: Voiding Method Urinal Urinal # Voids 0 2 Weight 143.2 kg Currently obtunded, on vent 100% FiO2. He has a large hematoma on the right carotid site of surgery. Pupils seem to be equal. Neck is supple Lungs are clear to auscultation fair air entry bilaterally although chest x-ray shows florid pulmonary edema possibly ARDS as his heart size is rather unremarkable. Heart sounds are unremarkable for any murmur rub gallop Abdomen soft nondistended bowel sounds are diminished. Extremity exam was no edema Warm to touch. Neurologically obtunded. He is on Diprivan. Results - Lab Results Most recent lab results ABG pH 7.32 (7.35-7.45) L 05/09/17 04:40 ABG pCO2 48 mmHg (35-45) H 05/09/17 04:40 ABG pO2 55 mmHg (83-108) L 05/09/17 04:40 ABG HCO3 24 mmol/L (21-25) 05/09/17 04:40 ABG O2 Saturation 87.2 % (94-97) L 05/09/17 04:40 Calcium 8.6 mg/dL (8.4-10.2) 05/09/17 04:46 Phosphorus 4.2 mg/dL (2.5-4.5) 05/08/17 04:30 Magnesium 2.0 mg/dL (1.6-2.3) 05/08/17 23:35 05/09/17 04:46 05/09/17 04:46 Assessment and Plan Assessment: Impression. 1. Acute kidney injury secondary to prolonged cardiac arrest of 30 minutes downtime. 2. Mild gap acidosis secondary to acute kidney injury. Rule out lactic acidosis. 3. Chronic kidney disease Baseline creatinine of 1.2-1.7 with large kidneys 13 and 14.9 cm by ultrasound in 2017 a year ago no proteinuria microalbumin to creatinine ratio is 4 mg/g of creatinine. Likely from nephrosclerosis possibility of renovascular disease considered. 3. Status post cardiac arrest downtime 30 minutes. 4. Status post elective right carotid endarterectomy 05/06/2017, was stable until late last night. 5. Pulmonary edema rule out ARDS. 6. History of pericardial effusion in the past 7. Diabetes mellitus, atrial fibrillation, obstructive sleep apnea. Recommendation. 1. Discuss extensively with the family was present in the room including son and [id number]. 2. He will be given a trial of Lasix 100 mg with the drip at 10 mg per hour and or 2-4 hours if there is no urine output and we may have to consider dialysis. 3. 3. We will wait for Patient's family to determine if we should proceed aggressive care or for more palliation acute care or hospice. 4. Avoid any nephrotoxic medication for right now. 5. In spite of the prolonged cardiac arrest currently he seems to be stabilizing as far as his hemodynamics are concerned with levo being reduced
[2017-05-09] MEDS: ASPIRIN 81 MG PO SCH (09:43)
--- NOTE | 2017-05-09 10:12 | CONS ---
CONSULTATION Mr. Mitchell is a 76-year-old gentleman who is seen for cardiac evaluation. This patient is currently intubated, history was obtained from the family members from the chart as well as nurses. This patient was found to have a significant bilateral carotid artery stenosis and he underwent elective right carotid endarterectomy 2 days before. After the surgery, patient had a problem with his aspiration. He was intermittently unresponsive and patient was on the BiPAP. Patient was in the intensive care unit yesterday. Patient was having some respiratory issues on the BiPAP, then patient complained of some chest pain. The EKG shows some ST depression and T-wave inversions in the lateral leads. Patient subsequently took his BiPAP off and he had a respiratory arrest. CPR was done for about half an hour and patient was intubated and subsequently pulse and blood pressure were obtained. Patient's chest x-ray is suggestive of pulmonary edema or adult respiratory distress syndrome. Patient is currently on Levophed and has very poor urine output. Patient has a past history of pericardial effusion, atrial fibrillation and ablation. According to the son, he had been having intermittent chest pain for a few days or a week prior to the surgery. PAST MEDICAL HISTORY: Includes history of hypertension, hyperlipidemia, history of sleep apnea, pericardial effusion and bilateral carotid artery stenosis. Patient did have a prior cardiac catheterization and cardiac ablation as well as orthopedic surgery done. . HOME MEDICATIONS: Included Coreg 12.5 mg b.i.d., Lasix once a day, lisinopril 2.5 mg daily, Pravachol 40 mg daily, Rythmol 325 mg twice a day, Flomax and Pradaxa 150 mg b.i.d. PHYSICAL EXAMINATION: At present reveals a 76-year-old, obesely-built gentleman who is currently unresponsive. His pupils are sluggishly reacting. Patient's respiratory rate is 14 to 18. Patient has a temperature of a 100.5, and the blood pressure is 102/39 mmHg. HEENT examination is negative. Neck is supple. There is evidence of a hematoma on the right side. HEART: First and second heart sounds are normal. Lungs reveal bilateral diminished air entry. Abdomen is soft. EXTREMITIES: There is no evidence of any leg edema. EKG shows evidence of ST depression in the lateral leads. Patient's initial troponin was normal. Subsequent troponin has went up to 2.8. Patient's creatinine is now 2.3. Initial blood gases showed a pH of 7.19, pCO2 was 74 and PO2 was 52. FINAL IMPRESSION: This patient is status post carotid endarterectomy. Patient had a chest discomfort and respiratory distress and subsequently patient had a cardiorespiratory arrest and patient was resuscitated for half an hour. Currently, patient is in shock with a possible adult respiratory distress syndrome versus cardiogenic pulmonary edema. Patient is on a high dose of Levophed to maintain the blood pressure and his creatinine is worsening with very poor urine output. It appears that the patient could have a non- Q-wave myocardial infarction from the electrocardiogram. Patient's overall prognosis is very poor at present. This was discussed with the family members. We will continue the supportive care at present. Echo and Doppler study will be done. MMAMYL / NAOMIN: [id number] /
[2017-05-09 10:47] LABS: Glucose,Whole Blood 207 mg/dL (75-99)
[2017-05-09] MEDS ORDERED: CISATRACURIUM 2 MG/ML 5 ML VIAL IV ONE ×2 (11:36→13:53)
[2017-05-09 11:39] LABS: Glucose,Whole Blood 227 mg/dL (75-99)
--- NOTE | 2017-05-09 11:50 | P.PN ---
Subjective Progress Note Date: 05/09/17 Principal diagnosis: Respiratory failure Progress note dated 05/09/2017 This is a patient who is postop day #3, status post right carotid endarterectomy. Apparently last night he pulled off his mask, told the nurse he was going to and that had a cardiopulmonary arrest. The code was called. He was resuscitated. He was intubated by anesthesia. The patient's currently in room 620. The family is in the room with him. He is currently on the assist control mode rate of 26, tidal volume 500, his FiO2 is 100%, and PEEP of 10. He was 8. On a PEEP of 8, his PaO2 was 55 a PaCO2 of 48 and a pH of 7.32. He is currently on norepinephrine at 17 mcg/m, propofol at 10 mics per kilogram per minute, insulin drip at 7 units per hour, seemingly 9 IV at 20 mL an hour and a Lasix drip at 10 mg an hour. A left radial art line was placed. I'll attempt a central line shortly. I did have a long talk with the family. The chest x-ray looks horrible with dense diffuse bilateral infiltrates right greater than left. He may have aspirated, I'm not sure. He is a no code. The family asked about withdrawing life support but I told him to give him a couple days to see if he responds to therapy. I spoke to his and also to his son Deion. Objective - Vital Signs Vital signs: Vital Signs Temp 100.5 F H 05/09/17 08:00 Pulse 89 05/09/17 08:00 Resp 14 05/09/17 08:00 BP 102/39 05/09/17 08:00 Pulse Ox 88 L 05/09/17 08:00 Intake & Output 05/08/17 05/09/17 05/09/17 18:59 06:59 18:59 Intake Total 150 2429.732 341.215 Output Total 1245 490 Balance -1095 1939.732 341.215 Weight 143.2 kg Intake: IV 150 Sodium Chloride 0.9% 1, 150 000 ml @ 75 mls/hr IV . [id number] [facility] Rx#:[id number] Intake, IV Titration 2429.732 341.215 Amount Insulin Regular 100 unit 26.750 39.083 In Sodium Chloride 0.9% 100 ml @ Per Protocol IV .Q0M [facility] Rx#:[id number] Norepinephrin 4 mg-0.9% 226.000 230.625 Ns Pmx 4 mg In 250 ml @ Titrate IV .Q0M [facility] Rx#: [id number] Propofol 1,000 mg In 16.982 71.507 Empty Bag 1 bag @ Titrate IV .Q0M [facility] Rx#: [id number] Sodium Chloride 0.9% 1, 2160 000 ml As IV .[employer] Rx#:[id number] Output: Urine 1245 490 Other: Voiding Method Indwelling Catheter Urinal # Voids 0 2 ABP, PAP, CO, CI - Last Documented Arterial Blood Pressure 142/50 - Exam No acute distress, sedated, with an orally placed endotracheal tube and NG tube. HEENT examination is grossly unremarkable. Mucous membranes are moist. No oral lesions. Neck supple. Full range of motion. No adenopathy thyromegaly or neck vein distention. There is tremendous bruising and ecchymoses about the neck from the recent surgery. It's more right than left-sided. Cardiovascular examination reveals regular rhythm rate. S1-S2 normal. No S3 or S4. No discernible murmur noted. Heart sounds are distant. Lungs reveal diffuse bilateral rhonchi. Breath sounds are diminished. Some bibasilar crackles. No wheezes. Abdomen soft bowel sounds are heard. No masses or tenderness. Extremities are intact. No cyanosis clubbing or edema. Skin is without rash or lesion. Neurologic examination could not be adequately performed. - Labs CBC & Chem 7: 05/09/17 04:46 05/09/17 04:46 Labs: Abnormal Lab Results - Last 24 Hours (Table) 05/08/17 05/08/17 05/08/17 Range/Units 12:08 18:16 19:17 WBC (3.8-10.6) k/uL RBC (4.30-5.90) m/uL Hgb (13.0-17.5) gm/dL Hct (39.0-53.0) % MCV (80.0-100.0) fL MCHC (31.0-37.0) g/dL Neutrophils # (1.3-7.7) k/uL Lymphocytes # (1.0-4.8) k/uL Monocytes # (0-1.0) k/uL PT (9.0-12.0) sec INR (<1.2) APTT (22.0-30.0) sec ABG pH (7.35-7.45) ABG pCO2 (35-45) mmHg ABG pO2 (83-108) mmHg ABG HCO3 (21-25) mmol/L ABG Total CO2 (19-24) mmol/L ABG O2 Saturation (94-97) % BUN (9-20) mg/dL Creatinine (0.66-1.25) mg/dL Glucose (74-99) mg/dL POC Glucose (mg/dL) 217 H 171 H (75-99) mg/dL ALT (21-72) U/L Troponin I 1.140 H* (0.000-0.034) ng/mL 05/08/17 05/08/17 05/08/17 Range/Units 20:59 22:31 23:20 WBC (3.8-10.6) k/uL RBC (4.30-5.90) m/uL Hgb (13.0-17.5) gm/dL Hct (39.0-53.0) % MCV (80.0-100.0) fL MCHC (31.0-37.0) g/dL Neutrophils # (1.3-7.7) k/uL Lymphocytes # (1.0-4.8) k/uL Monocytes # (0-1.0) k/uL PT (9.0-12.0) sec INR (<1.2) APTT (22.0-30.0) sec ABG pH 7.19 L* (7.35-7.45) ABG pCO2 74 H* (35-45) mmHg ABG pO2 52 L (83-108) mmHg ABG HCO3 28 H (21-25) mmol/L ABG Total CO2 30 H (19-24) mmol/L ABG O2 Saturation 77.5 L (94-97) % BUN (9-20) mg/dL Creatinine (0.66-1.25) mg/dL Glucose (74-99) mg/dL POC Glucose (mg/dL) 193 H 184 H (75-99) mg/dL ALT (21-72) U/L Troponin I (0.000-0.034) ng/mL 18 05/08/17 05/08/17 Range/Units 23:35 23:35 23:35 WBC 27.1 H* (3.8-10.6) k/uL RBC 3.40 L (4.30-5.90) m/uL Hgb 11.3 L (13.0-17.5) gm/dL Hct 36.7 L (39.0-53.0) % MCV 107.8 H (80.0-100.0) fL MCHC 30.8 L (31.0-37.0) g/dL Neutrophils # 23.8 H (1.3-7.7) k/uL Lymphocytes # (1.0-4.8) k/uL Monocytes # 1.2 H (0-1.0) k/uL PT (9.0-12.0) sec INR (<1.2) APTT (22.0-30.0) sec ABG pH (7.35-7.45) ABG pCO2 (35-45) mmHg ABG pO2 (83-108) mmHg ABG HCO3 (21-25) mmol/L ABG Total CO2 (19-24) mmol/L ABG O2 Saturation (94-97) % BUN 42 H (9-20) mg/dL Creatinine 1.80 H (0.66-1.25) mg/dL Glucose 271 H (74-99) mg/dL POC Glucose (mg/dL) (75-99) mg/dL ALT 18 L (21-72) U/L Troponin I 0.710 H* (0.000-0.034) ng/mL 05/08/1718 05/09/17 Range/Units 23:35 02:39 04:04 WBC (3.8-10.6) k/uL RBC (4.30-5.90) m/uL Hgb (13.0-17.5) gm/dL Hct (39.0-53.0) % MCV (80.0-100.0) fL MCHC (31.0-37.0) g/dL Neutrophils # (1.3-7.7) k/uL Lymphocytes # (1.0-4.8) k/uL Monocytes # (0-1.0) k/uL PT 18.1 H (9.0-12.0) sec INR 2.0 H (<1.2) APTT 48.8 H (22.0-30.0) sec ABG pH (7.35-7.45) ABG pCO2 (35-45) mmHg ABG pO2 (83-108) mmHg ABG HCO3 (21-25) mmol/L ABG Total CO2 (19-24) mmol/L ABG O2 Saturation (94-97) % BUN (9-20) mg/dL Creatinine (0.66-1.25) mg/dL Glucose (74-99) mg/dL POC Glucose (mg/dL) 304 H 310 H (75-99) mg/dL ALT (21-72) U/L Troponin I (0.000-0.034) ng/mL 05/09/17 05/09/17 05/09/17 Range/Units 04:29 04:40 04:46 WBC 19.5 H (3.8-10.6) k/uL RBC 3.28 L (4.30-5.90) m/uL Hgb 11.0 L (13.0-17.5) gm/dL Hct 35.8 L (39.0-53.0) % MCV 109.2 H (80.0-100.0) fL MCHC 30.8 L (31.0-37.0) g/dL Neutrophils # 17.7 H (1.3-7.7) k/uL Lymphocytes # 0.5 L (1.0-4.8) k/uL Monocytes # (0-1.0) k/uL PT (9.0-12.0) sec INR (<1.2) APTT (22.0-30.0) sec ABG pH 7.32 L (7.35-7.45) ABG pCO2 48 H (35-45) mmHg ABG pO2 55 L (83-108) mmHg ABG HCO3 (21-25) mmol/L ABG Total CO2 26 H (19-24) mmol/L ABG O2 Saturation 87.2 L (94-97) % BUN (9-20) mg/dL Creatinine (0.66-1.25) mg/dL Glucose (74-99) mg/dL POC Glucose (mg/dL) 287 H (75-99) mg/dL ALT (21-72) U/L Troponin I (0.000-0.034) ng/mL 05/09/17 05/09/17 05/09/17 Range/Units 04:46 04:46 05:40 WBC (3.8-10.6) k/uL RBC (4.30-5.90) m/uL Hgb (13.0-17.5) gm/dL Hct (39.0-53.0) % MCV (80.0-100.0) fL MCHC (31.0-37.0) g/dL Neutrophils # (1.3-7.7) k/uL Lymphocytes # (1.0-4.8) k/uL Monocytes # (0-1.0) k/uL PT (9.0-12.0) sec INR (<1.2) APTT (22.0-30.0) sec ABG pH (7.35-7.45) ABG pCO2 (35-45) mmHg ABG pO2 (83-108) mmHg ABG HCO3 (21-25) mmol/L ABG Total CO2 (19-24) mmol/L ABG O2 Saturation (94-97) % BUN 45 H (9-20) mg/dL Creatinine 2.39 H (0.66-1.25) mg/dL Glucose 293 H (74-99) mg/dL POC Glucose (mg/dL) 276 H (75-99) mg/dL ALT (21-72) U/L Troponin I 2.870 H* (0.000-0.034) ng/mL 05/09/17 05/09/17 05/09/17 Range/Units 06:45 08:14 09:29 WBC (3.8-10.6) k/uL RBC (4.30-5.90) m/uL Hgb (13.0-17.5) gm/dL Hct (39.0-53.0) % MCV (80.0-100.0) fL MCHC (31.0-37.0) g/dL Neutrophils # (1.3-7.7) k/uL Lymphocytes # (1.0-4.8) k/uL Monocytes # (0-1.0) k/uL PT (9.0-12.0) sec INR (<1.2) APTT (22.0-30.0) sec ABG pH (7.35-7.45) ABG pCO2 (35-45) mmHg ABG pO2 (83-108) mmHg ABG HCO3 (21-25) mmol/L ABG Total CO2 (19-24) mmol/L ABG O2 Saturation (94-97) % BUN (9-20) mg/dL Creatinine (0.66-1.25) mg/dL Glucose (74-99) mg/dL POC Glucose (mg/dL) 273 H 267 H 230 H (75-99) mg/dL ALT (21-72) U/L Troponin I (0.000-0.034) ng/mL 05/09/17 05/09/17 Range/Units 10:45 11:38 WBC (3.8-10.6) k/uL RBC (4.30-5.90) m/uL Hgb (13.0-17.5) gm/dL Hct (39.0-53.0) % MCV (80.0-100.0) fL MCHC (31.0-37.0) g/dL Neutrophils # (1.3-7.7) k/uL Lymphocytes # (1.0-4.8) k/uL Monocytes # (0-1.0) k/uL PT (9.0-12.0) sec INR (<1.2) APTT (22.0-30.0) sec ABG pH (7.35-7.45) ABG pCO2 (35-45) mmHg ABG pO2 (83-108) mmHg ABG HCO3 (21-25) mmol/L ABG Total CO2 (19-24) mmol/L ABG O2 Saturation (94-97) % BUN (9-20) mg/dL Creatinine (0.66-1.25) mg/dL Glucose (74-99) mg/dL POC Glucose (mg/dL) 207 H 227 H (75-99) mg/dL ALT (21-72) U/L Troponin I (0.000-0.034) ng/mL Microbiology - Last 24 Hours (Table) 05/07/17 05:49 Urine Culture - Final Urine,Catheterized Assessment and Plan Assessment: Assessment Postop day #3, status post right carotid endarterectomy Status post cardiopulmonary arrest, likely respiratory in nature, with cardiopulmonary resuscitation and return of spontaneous circulation Hypoxemic respiratory failure with bilateral diffuse dense infiltrates History of diabetes Hypertension Hyperlipidemia Gout. Obesity Multiple other medical problems and comorbidities as listed above Plan: Plan dated 05/07/2017 Currently well. Remains on a relatively higher dose of nitroglycerin at 60 mcg/ m. The patient's O2 requirements at 6 L high flow. Chest x-ray labs and medications are all reviewed. He is postop day #1. We'll continue to follow closely. Additional recommendations made at this time. Plan dated 05/09/2017 The patient's currently on norepinephrine for blood pressure support. He is receiving propofol for sedation. He is on insulin drip for his hyperglycemia. We'll start tube feeds. He is on Lasix drip to help with urine output. Left radial art line was placed. A central line will be placed. His PEEP was increased from 8-10 to improve oxygenation. Labs x-rays a medications are all reviewed. I did extensively talk with the family. The patient is a no code. I think we should give him at least 48 hours to 72 hours to see how he responds to therapy. I did mention that to the family. Time with Patient: Greater than 30
--- NOTE | 2017-05-09 12:05 | OP ---
OPERATIVE REPORT DATE OF SERVICE: 05/09/2017 ARTERIAL LINE PLACEMENT: INDICATION: Hemodynamic monitoring. A time-out was completed verifying correct patient, procedure, site, positioning, and implant(s) or special equipment if applicable. Spencer's test was performed to ensure adequate perfusion. The patient's left wrist was prepped and draped in sterile fashion. 1% Lidocaine was used to anesthetize the area. An 18G Arrow arterial line was introduced into the left radial artery. The catheter was threaded over the guidewire and the needle was removed with appropriate pulsatile blood return. Blood loss was minimal. The catheter was then sutured in place to the skin and a sterile dressing applied. Perfusion to the extremity distal to the point of catheter insertion was checked and found to be adequate. The patient tolerated the procedure well and there were no immediate complications. MMODL / IJN: [id number] /
[2017-05-09] MEDS: FUROSEMIDE 250 MG in SODIUM CHLORIDE 0.9% 225 ML IVP SCH (12:07)
[2017-05-09 12:29] LABS: ABG Base Excess 4.8 mmol/L; ABG HCO3 29 mmol/L (21-25); ABG Oxygen Saturation 92.3 % (94-97); ABG PCO2 42 mmHg (35-45); ABG PH 7.45 (7.35-7.45); ABG PO2 61 mmHg (83-108); ABG TCO2 30 mmol/L (19-24)
--- NOTE | 2017-05-09 13:08 | ECHOF ---
Referral Reason:chest pain MEASUREMENTS -------- HEIGHT: 175.3 cm WEIGHT: 142.9 kg BP: 84/50 IVSd: 1.1 cm (0.6 - 1.1) LVIDd: 3.7 cm (3.9 - 5.3) LVPWd: 1.2 cm (0.6 - 1.1) EDV(Teich): 60 ml IVSs: 1.5 cm LVIDs: 3.5 cm LVPWs: 1.6 cm ESV(Teich): 49 ml EF(Teich): 18 % %FS: 8 % SV(Teich): 10 ml LA Diam: 3.9 cm (2.7 - 3.8) Ao asc: 2.8 cm RVIDd: 3.8 cm (< 3.3) Ao Diam: 3.4 cm (2.0 - 3.7) LA Diam: 4.0 cm (2.7 - 3.8) AV Cusp: 1.4 cm (1.5 - 2.6) EPSS: 0.8 cm MV E Otis: 0.83 m/s MV DecT: 170 ms MV Dec [place]: 4.9 m/s MV A Otis: 0.67 m/s MV E/A Ratio: 1.25 AV Vmax: 1.49 m/s AV Vmean: 1.19 m/s AV maxP.93 mmHg AV meanP.27 mmHg AV Env.Ti: 220 ms AV VTI: 26.2 cm TR Vmax: 2.61 m/s TR maxP.18 mmHg RAP: 15.00 mmHg RVSP: 42.18 mmHg MV EF SLOPE: 53.60 mm/s (70 - 150) MV EXCURSION: 1.37 cm (> 18.000) FINDINGS -------- Sinus rhythm. This was a technically difficult study with suboptimal views. The left ventricular size is normal. There is mild concentric left ventricular hypertrophy. Overa ll left ventricular systolic function is severely impaired with, an EF < 20%. The right ventricle is mild to moderately enlarged. The left atrium is mildly dilated. The right atrium was not well visualized. 5ml of Lumason was utilized for enhancement of images. Aortic valve is trileaflet and is mildly thickened. There is no evidence of aortic regurgitation. There is no evidence of aortic stenosis. The mitral valve leaflets are mildly thickened. There is trace to mild mitral regurgitation. Trace tricuspid regurgitation present. There is mild pulmonary hypertension. The right ventricula r systolic pressure, as measured by Doppler, is 42.18mmHg. The pulmonic valve was not well visualized. The aortic root size is normal. The inferior vena cava is dilated with no significant inspiratory collapse which is consistent estima thelma right atrial pressure of >20 mmHg. There is no pericardial effusion. CONCLUSIONS -------- 1. Sinus rhythm. 2. This was a technically difficult study with suboptimal views. 3. The left ventricular size is normal. 4. There is mild concentric left ventricular hypertrophy. 5. Overall left ventricular systolic function is severely impaired with, an EF < 20%. 6. The right ventricle is mild to moderately enlarged. 7. The left atrium is mildly dilated. 8. The right atrium was not well visualized. 9. 5ml of Lumason was utilized for enhancement of images. 10. Aortic valve is trileaflet and is mildly thickened. 11. The mitral valve leaflets are mildly thickened. 12. There is trace to mild mitral regurgitation. 13. Trace tricuspid regurgitation present. 14. There is mild pulmonary hypertension. 15. The right ventricular systolic pressure, as measured by Doppler, is 42.18mmHg. 16. The pulmonic valve was not well visualized. 17. The aortic root size is normal. 18. The inferior vena cava is dilated with no significant inspiratory collapse which is consistent es timated right atrial pressure of >20 mmHg. 19. There is no pericardial effusion. AN/SYQ 13 NAV/C2 OPERATOR: Tima Powers RDCS
[2017-05-09 14:10] LABS: Glucose,Whole Blood 189 mg/dL (75-99)
[2017-05-09] MEDS ORDERED: NOREPINEPHRIN 16 MG-0.9%NS PMX 16 MG/250 ML ML IV SCH (14:30)
[2017-05-09 14:36] LABS: ABG Base Excess 2.6 mmol/L; ABG HCO3 27 mmol/L (21-25); ABG PCO2 39 mmHg (35-45); ABG PH 7.44 (7.35-7.45); ABG PO2 66 mmHg (83-108); ABG TCO2 28 mmol/L (19-24)
--- NOTE | 2017-05-09 14:36 | PCN ---
PROCEDURE NOTE PROCEDURE: Right femoral vein triple-lumen catheter. INDICATION: Hemodynamic monitoring/Intravenous access. A time-out was completed verifying correct patient, procedure, site, positioning, and implant(s) or special equipment if applicable. The patient was placed in a dependent position appropriate for triple lumen catheter placement based on the vein to be cannulated. The patient's right groin was prepped and draped in sterile fashion. 1% Lidocaine was used to anesthetize the surrounding skin area. A triple lumen 9F Cordis catheter was introduced into the right common femoral vein using Seldinger technique. The catheter was threaded smoothly over the guide wire and appropriate blood return was obtained. Each lumen of the catheter was evacuated of air and flushed with sterile saline. The catheter was then sutured in place to the skin and a sterile dressing applied. Perfusion to the extremity distal to the point of catheter insertion was checked and found to be adequate. There was no immediate complication. There was good blood return from all 3 ports. The catheter was sutured in place. Sterile dressing was applied by the nurse. The patient tolerated the procedure well. MMODL / IJN: [id number] /
[2017-05-09 15:01] LABS: Glucose,Whole Blood 182 mg/dL (75-99)
[2017-05-09 15:05] LABS: Basophils % (A) 0 %; Eosinophils # (A) 0.1 k/uL (0-0.7); Eosinophils % (A) 0 %; HCT 32.5 % (39.0-53.0); HGB 10.1 gm/dL (13.0-17.5); Lymphocytes # (A) 1.2 k/uL (1.0-4.8); Lymphocytes % (A) 7 %; MCH 32.9 pg (25.0-35.0); Macrocytosis Moderate; Mean Platelet Volume 8.9; Monocytes # (A) 1.2 k/uL (0-1.0); Monocytes % (A) 7 %; Neutrophils # (A) 13.6 k/uL (1.3-7.7); Neutrophils % (A) 83 %; Platelet Count 201 k/uL (150-450); RBC 3.07 m/uL (4.30-5.90); RDW 15.1 % (11.5-15.5); WBC 16.3 k/uL (3.8-10.6)
[2017-05-09 15:15] LABS: Albumin 3.4 g/dL (3.5-5.0); Calcium 8.6 mg/dL (8.4-10.2); Magnesium 1.9 mg/dL (1.6-2.3); Phosphorus 2.9 mg/dL (2.5-4.5); Potassium 4.4 mmol/L (3.5-5.1); Total Bilirubin 0.6 mg/dL (0.2-1.3); Total Protein 6.5 g/dL (6.3-8.2)
--- NOTE | 2017-05-09 15:31 | P.PN ---
Subjective Progress Note Date: 05/09/17 Principal diagnosis: Patient was admitted for elective right carotid endarterectomy secondary to severe carotid stenosis Last evening I was called to be notified at approximately 9:30 PM that this patient became agitated took off his BiPAP tried to stand up stated that he was going to and proceeded to undergo acute respiratory cardiac arrest he was pulseless for about 20 minutes CPR was performed patient was intubated his pulse was regained he was placed on pressors including levo fed patient had her line placed labs were performed troponins were elevated suspect patient had a stress induced IL. Patient is currently sedated and on the ventilator Objective - Vital Signs Vital signs: Vital Signs Temp 100.7 F H 05/09/17 12:00 Pulse 78 05/09/17 12:00 Resp 14 05/09/17 12:00 BP 155/60 05/09/17 11:00 Pulse Ox 91 L 05/09/17 12:00 Intake & Output 05/08/17 05/09/17 05/09/17 18:59 06:59 18:59 Intake Total 150 2429.732 524.165 Output Total 1245 490 110 Balance -1095 1939.732 414.165 Weight 143.2 kg 143.2 kg Intake: IV 150 110 Furosemide 250 mg In 10 Sodium Chloride 0.9% 225 ml @ 10 MG/HR 10 mls/hr IVP .Q24H JOSÉ MIGUEL Rx#: [id number] KVO 100 Sodium Chloride 0.9% 1, 150 000 ml @ 75 mls/hr IV . [id number] JOSÉ MIGUEL Rx#:[id number] Intake, IV Titration 2429.732 414.165 Amount Insulin Regular 100 unit 26.750 55.683 In Sodium Chloride 0.9% 100 ml @ Per Protocol IV .Q0M JOSÉ MIGUEL Rx#:[id number] Norepinephrin 4 mg-0.9% 226.000 250.000 Ns Pmx 4 mg In 250 ml @ Titrate IV .Q0M JOSÉ MIGUEL Rx#: [id number] Propofol 1,000 mg In 16.982 108.482 Empty Bag 1 bag @ Titrate IV .Q0M JOSÉ MIGUEL Rx#: [id number] Sodium Chloride 0.9% 1, 2160 000 ml As IV .[facility] Rx#:[id number] Output: Urine 1245 490 110 Other: Voiding Method Indwelling Catheter Urinal # Voids 0 2 ABP, PAP, CO, CI - Last Documented Arterial Blood Pressure 118/45 - Exam General: Patient is intubated sedated on vent, ventilator settings HEENT: [PERRL. EOMI. No pharyngeal erythema or exudate.] Neck: [No adenopathy.] Cardiac: [Heart regular in rate and rhythm. No S3. No S4. No clicks, rubs. No murmur.] Lungs: [Clear to auscultation bilaterally.] Abdomen: [No mass. No organomegaly. Bowel sounds presnt and normoactive in all 4 quadrants.] Extremes: [No edema no cyanosis no claudication normal pulses] : [] Musculoskeletal: [No joint erythema, edema or tenderness.] Skin: [No rash.] Neurologic: [No lateralizing deficits. CN II - XII grossly intact.] Lymphatic: [No adenopathy.] - Labs CBC & Chem 7: 05/09/17 14:50 05/09/17 14:50 Labs: Abnormal Lab Results - Last 24 Hours (Table) 05/08/17 05/08/17 05/08/17 Range/Units 18:16 19:17 20:59 WBC (3.8-10.6) k/uL RBC (4.30-5.90) m/uL Hgb (13.0-17.5) gm/dL Hct (39.0-53.0) % MCV (80.0-100.0) fL MCHC (31.0-37.0) g/dL Neutrophils # (1.3-7.7) k/uL Lymphocytes # (1.0-4.8) k/uL Monocytes # (0-1.0) k/uL PT (9.0-12.0) sec INR (<1.2) APTT (22.0-30.0) sec ABG pH (7.35-7.45) ABG pCO2 (35-45) mmHg ABG pO2 (83-108) mmHg ABG HCO3 (21-25) mmol/L ABG Total CO2 (19-24) mmol/L ABG O2 Saturation (94-97) % BUN (9-20) mg/dL Creatinine (0.66-1.25) mg/dL Glucose (74-99) mg/dL POC Glucose (mg/dL) 171 H 193 H (75-99) mg/dL AST (17-59) U/L ALT (21-72) U/L Troponin I 1.140 H* (0.000-0.034) ng/mL Albumin (3.5-5.0) g/dL 05/08/17 05/08/17 05/08/17 Range/Units 22:31 23:20 23:35 WBC (3.8-10.6) k/uL RBC (4.30-5.90) m/uL Hgb (13.0-17.5) gm/dL Hct (39.0-53.0) % MCV (80.0-100.0) fL MCHC (31.0-37.0) g/dL Neutrophils # (1.3-7.7) k/uL Lymphocytes # (1.0-4.8) k/uL Monocytes # (0-1.0) k/uL PT (9.0-12.0) sec INR (<1.2) APTT (22.0-30.0) sec ABG pH 7.19 L* (7.35-7.45) ABG pCO2 74 H* (35-45) mmHg ABG pO2 52 L (83-108) mmHg ABG HCO3 28 H (21-25) mmol/L ABG Total CO2 30 H (19-24) mmol/L ABG O2 Saturation 77.5 L (94-97) % BUN (9-20) mg/dL Creatinine (0.66-1.25) mg/dL Glucose (74-99) mg/dL POC Glucose (mg/dL) 184 H (75-99) mg/dL AST (17-59) U/L ALT (21-72) U/L Troponin I 0.710 H* (0.000-0.034) ng/mL Albumin (3.5-5.0) g/dL 05/08/17 05/08/17 05/08/17 Range/Units 23:35 23:35 23:35 WBC 27.1 H* (3.8-10.6) k/uL RBC 3.40 L (4.30-5.90) m/uL Hgb 11.3 L (13.0-17.5) gm/dL Hct 36.7 L (39.0-53.0) % MCV 107.8 H (80.0-100.0) fL MCHC 30.8 L (31.0-37.0) g/dL Neutrophils # 23.8 H (1.3-7.7) k/uL Lymphocytes # (1.0-4.8) k/uL Monocytes # 1.2 H (0-1.0) k/uL PT 18.1 H (9.0-12.0) sec INR 2.0 H (<1.2) APTT 48.8 H (22.0-30.0) sec ABG pH (7.35-7.45) ABG pCO2 (35-45) mmHg ABG pO2 (83-108) mmHg ABG HCO3 (21-25) mmol/L ABG Total CO2 (19-24) mmol/L ABG O2 Saturation (94-97) % BUN 42 H (9-20) mg/dL Creatinine 1.80 H (0.66-1.25) mg/dL Glucose 271 H (74-99) mg/dL POC Glucose (mg/dL) (75-99) mg/dL AST (17-59) U/L ALT 18 L (21-72) U/L Troponin I (0.000-0.034) ng/mL Albumin (3.5-5.0) g/dL 05/09/17 05/09/17 05/09/17 Range/Units 02:39 04:04 04:29 WBC (3.8-10.6) k/uL RBC (4.30-5.90) m/uL Hgb (13.0-17.5) gm/dL Hct (39.0-53.0) % MCV (80.0-100.0) fL MCHC (31.0-37.0) g/dL Neutrophils # (1.3-7.7) k/uL Lymphocytes # (1.0-4.8) k/uL Monocytes # (0-1.0) k/uL PT (9.0-12.0) sec INR (<1.2) APTT (22.0-30.0) sec ABG pH (7.35-7.45) ABG pCO2 (35-45) mmHg ABG pO2 (83-108) mmHg ABG HCO3 (21-25) mmol/L ABG Total CO2 (19-24) mmol/L ABG O2 Saturation (94-97) % BUN (9-20) mg/dL Creatinine (0.66-1.25) mg/dL Glucose (74-99) mg/dL POC Glucose (mg/dL) 304 H 310 H 287 H (75-99) mg/dL AST (17-59) U/L ALT (21-72) U/L Troponin I (0.000-0.034) ng/mL Albumin (3.5-5.0) g/dL 05/09/17 05/09/17 05/09/17 Range/Units 04:40 04:46 04:46 WBC 19.5 H (3.8-10.6) k/uL RBC 3.28 L (4.30-5.90) m/uL Hgb 11.0 L (13.0-17.5) gm/dL Hct 35.8 L (39.0-53.0) % MCV 109.2 H (80.0-100.0) fL MCHC 30.8 L (31.0-37.0) g/dL Neutrophils # 17.7 H (1.3-7.7) k/uL Lymphocytes # 0.5 L (1.0-4.8) k/uL Monocytes # (0-1.0) k/uL PT (9.0-12.0) sec INR (<1.2) APTT (22.0-30.0) sec ABG pH 7.32 L (7.35-7.45) ABG pCO2 48 H (35-45) mmHg ABG pO2 55 L (83-108) mmHg ABG HCO3 (21-25) mmol/L ABG Total CO2 26 H (19-24) mmol/L ABG O2 Saturation 87.2 L (94-97) % BUN 45 H (9-20) mg/dL Creatinine 2.39 H (0.66-1.25) mg/dL Glucose 293 H (74-99) mg/dL POC Glucose (mg/dL) (75-99) mg/dL AST (17-59) U/L ALT (21-72) U/L Troponin I (0.000-0.034) ng/mL Albumin (3.5-5.0) g/dL 05/09/17 05/09/17 05/09/17 Range/Units 04:46 05:40 06:45 WBC (3.8-10.6) k/uL RBC (4.30-5.90) m/uL Hgb (13.0-17.5) gm/dL Hct (39.0-53.0) % MCV (80.0-100.0) fL MCHC (31.0-37.0) g/dL Neutrophils # (1.3-7.7) k/uL Lymphocytes # (1.0-4.8) k/uL Monocytes # (0-1.0) k/uL PT (9.0-12.0) sec INR (<1.2) APTT (22.0-30.0) sec ABG pH (7.35-7.45) ABG pCO2 (35-45) mmHg ABG pO2 (83-108) mmHg ABG HCO3 (21-25) mmol/L ABG Total CO2 (19-24) mmol/L ABG O2 Saturation (94-97) % BUN (9-20) mg/dL Creatinine (0.66-1.25) mg/dL Glucose (74-99) mg/dL POC Glucose (mg/dL) 276 H 273 H (75-99) mg/dL AST (17-59) U/L ALT (21-72) U/L Troponin I 2.870 H* (0.000-0.034) ng/mL Albumin (3.5-5.0) g/dL 05/09/17 05/09/17 05/09/17 Range/Units 08:14 09:29 10:45 WBC (3.8-10.6) k/uL RBC (4.30-5.90) m/uL Hgb (13.0-17.5) gm/dL Hct (39.0-53.0) % MCV (80.0-100.0) fL MCHC (31.0-37.0) g/dL Neutrophils # (1.3-7.7) k/uL Lymphocytes # (1.0-4.8) k/uL Monocytes # (0-1.0) k/uL PT (9.0-12.0) sec INR (<1.2) APTT (22.0-30.0) sec ABG pH (7.35-7.45) ABG pCO2 (35-45) mmHg ABG pO2 (83-108) mmHg ABG HCO3 (21-25) mmol/L ABG Total CO2 (19-24) mmol/L ABG O2 Saturation (94-97) % BUN (9-20) mg/dL Creatinine (0.66-1.25) mg/dL Glucose (74-99) mg/dL POC Glucose (mg/dL) 267 H 230 H 207 H (75-99) mg/dL AST (17-59) U/L ALT (21-72) U/L Troponin I (0.000-0.034) ng/mL Albumin (3.5-5.0) g/dL 05/09/17 05/09/17 05/09/17 Range/Units 11:38 12:27 14:08 WBC (3.8-10.6) k/uL RBC (4.30-5.90) m/uL Hgb (13.0-17.5) gm/dL Hct (39.0-53.0) % MCV (80.0-100.0) fL MCHC (31.0-37.0) g/dL Neutrophils # (1.3-7.7) k/uL Lymphocytes # (1.0-4.8) k/uL Monocytes # (0-1.0) k/uL PT (9.0-12.0) sec INR (<1.2) APTT (22.0-30.0) sec ABG pH (7.35-7.45) ABG pCO2 (35-45) mmHg ABG pO2 61 L (83-108) mmHg ABG HCO3 29 H (21-25) mmol/L ABG Total CO2 30 H (19-24) mmol/L ABG O2 Saturation 92.3 L (94-97) % BUN (9-20) mg/dL Creatinine (0.66-1.25) mg/dL Glucose (74-99) mg/dL POC Glucose (mg/dL) 227 H 189 H (75-99) mg/dL AST (17-59) U/L ALT (21-72) U/L Troponin I (0.000-0.034) ng/mL Albumin (3.5-5.0) g/dL 05/09/17 05/09/17 05/09/17 Range/Units 14:34 14:50 14:50 WBC 16.3 H (3.8-10.6) k/uL RBC 3.07 L (4.30-5.90) m/uL Hgb 10.1 L (13.0-17.5) gm/dL Hct 32.5 L (39.0-53.0) % MCV 106.0 H (80.0-100.0) fL MCHC (31.0-37.0) g/dL Neutrophils # 13.6 H (1.3-7.7) k/uL Lymphocytes # (1.0-4.8) k/uL Monocytes # 1.2 H (0-1.0) k/uL PT (9.0-12.0) sec INR (<1.2) APTT (22.0-30.0) sec ABG pH (7.35-7.45) ABG pCO2 (35-45) mmHg ABG pO2 66 L (83-108) mmHg ABG HCO3 27 H (21-25) mmol/L ABG Total CO2 28 H (19-24) mmol/L ABG O2 Saturation (94-97) % BUN 51 H (9-20) mg/dL Creatinine 2.99 H (0.66-1.25) mg/dL Glucose 181 H (74-99) mg/dL POC Glucose (mg/dL) (75-99) mg/dL AST 114 H (17-59) U/L ALT (21-72) U/L Troponin I (0.000-0.034) ng/mL Albumin 3.4 L (3.5-5.0) g/dL 05/09/17 Range/Units 14:58 WBC (3.8-10.6) k/uL RBC (4.30-5.90) m/uL Hgb (13.0-17.5) gm/dL Hct (39.0-53.0) % MCV (80.0-100.0) fL MCHC (31.0-37.0) g/dL Neutrophils # (1.3-7.7) k/uL Lymphocytes # (1.0-4.8) k/uL Monocytes # (0-1.0) k/uL PT (9.0-12.0) sec INR (<1.2) APTT (22.0-30.0) sec ABG pH (7.35-7.45) ABG pCO2 (35-45) mmHg ABG pO2 (83-108) mmHg ABG HCO3 (21-25) mmol/L ABG Total CO2 (19-24) mmol/L ABG O2 Saturation (94-97) % BUN (9-20) mg/dL Creatinine (0.66-1.25) mg/dL Glucose (74-99) mg/dL POC Glucose (mg/dL) 182 H (75-99) mg/dL AST (17-59) U/L ALT (21-72) U/L Troponin I (0.000-0.034) ng/mL Albumin (3.5-5.0) g/dL Microbiology - Last 24 Hours (Table) 05/09/17 04:18 Sputum Culture - Preliminary Sputum 05/07/17 05:49 Urine Culture - Final Urine,Catheterized Assessment and Plan (1) Cardiopulmonary arrest with successful resuscitation Narrative/Plan: Patient intubated sedated and on vent Current Visit: Yes Status: Acute Code(s): I46.9 - CARDIAC ARREST, CAUSE UNSPECIFIED SNOMED Code(s): 285257754 (2) History of coronary artery disease Narrative/Plan: Status post successful right carotid endarterectomy with complication of cardio pulmonary arrest with successful resuscitation Current Visit: Yes Status: Acute Code(s): Z86.79 - PERSONAL HISTORY OF OTHER DISEASES OF THE CIRCULATORY SYSTEM SNOMED Code(s): 574877387 (3) Stenosis of right carotid artery Current Visit: Yes Status: Acute Code(s): I65.21 - OCCLUSION AND STENOSIS OF RIGHT CAROTID ARTERY SNOMED Code(s): 699876964382958
[2017-05-09 15:53] LABS: INR 2.2 (<1.2); Partial Thromboplastin Time 58.2 sec (22.0-30.0); Prothrombin Time 19.9 sec (9.0-12.0)
[2017-05-09 16:19] LABS: Glucose,Whole Blood 163 mg/dL (75-99)
[2017-05-09 17:49] LABS: Glucose,Whole Blood 174 mg/dL (75-99)
[2017-05-09 18:50] LABS: Glucose,Whole Blood 151 mg/dL (75-99)
[2017-05-09] MEDS ORDERED: ACETAMINOPHEN IV (For NPO) 1,000 MG in EMPTY BAG 1 BAG IVPB PRN (20:09)
[2017-05-09 20:38] LABS: Glucose,Whole Blood 130 mg/dL (75-99)
[2017-05-09 21:42] LABS: Glucose,Whole Blood 155 mg/dL (75-99)
[2017-05-09] MEDS ORDERED: EPINEPHrine 10 ML SYRINGE (0.1 MG/ML) ONE (22:50)
[2017-05-09] MEDS ORDERED: SODIUM BICARB 8.4% 50 ML SYR (1 MEQ/ML) ONE (22:50)
[2017-05-09] MEDS ORDERED: DEXTROSE 50%-WATER 50 ML SYRINGE IVP ONE (22:50)
[2017-05-09] MEDS: hydrALAZINE HCL 20 MG/ML 1 ML VIAL IVP SCH (22:59)
[2017-05-09 23:06] LABS: Glucose,Whole Blood 156 mg/dL (75-99)
[2017-05-09] MEDS: CHLORHEXIDINE GLUCONATE 15 ML CUP MUCOUS MEM SCH (23:23)
[2017-05-10 00:41] LABS: Glucose,Whole Blood 157 mg/dL (75-99)
[2017-05-10 02:04] LABS: Glucose,Whole Blood 162 mg/dL (75-99)
[2017-05-10] MEDS: PROPOFOL 1,000 MG in EMPTY BAG 1 BAG IV SCH ×4 (02:17→19:35)
[2017-05-10 03:36] LABS: Glucose,Whole Blood 199 mg/dL (75-99)
[2017-05-10 04:01] LABS: Basophils % (A) 0 %; Eosinophils % (A) 0 %; HCT 31.6 % (39.0-53.0); Lymphocytes # (A) 1.4 k/uL (1.0-4.8); Lymphocytes % (A) 8 %; MCH 33.4 pg (25.0-35.0); MCHC 31.7 g/dL (31.0-37.0); MCV 105.4 fL (80.0-100.0); Macrocytosis Moderate; Mean Platelet Volume 8.8; Monocytes # (A) 1.1 k/uL (0-1.0); Monocytes % (A) 6 %; Neutrophils # (A) 15.1 k/uL (1.3-7.7); Neutrophils % (A) 84 %; Platelet Count 212 k/uL (150-450); RBC 2.99 m/uL (4.30-5.90)
[2017-05-10 04:20] LABS: ABG Base Excess 4.2 mmol/L; ABG HCO3 28 mmol/L (21-25); ABG Oxygen Saturation 95.1 % (94-97); ABG PCO2 40 mmHg (35-45); ABG PH 7.46 (7.35-7.45); ABG PO2 74 mmHg (83-108); ABG TCO2 29 mmol/L (19-24)
[2017-05-10 05:03] LABS: Glucose,Whole Blood 172 mg/dL (75-99)
[2017-05-10 05:03] LABS: Albumin 3.2 g/dL (3.5-5.0); Calcium 8.6 mg/dL (8.4-10.2); Potassium 4.1 mmol/L (3.5-5.1); Total Bilirubin 0.7 mg/dL (0.2-1.3); Total Protein 5.9 g/dL (6.3-8.2)
[2017-05-10] MEDS: MORPHINE SULFATE 4 MG/ML SYRINGE IVP PRN ×2 (05:19)
[2017-05-10 05:20] LABS: D-Dimer 1.07 mg/L FEU (<0.60); INR 1.8 (<1.2); Partial Thromboplastin Time 53.3 sec (22.0-30.0); Prothrombin Time 16.7 sec (9.0-12.0)
[2017-05-10 06:01] LABS: Glucose,Whole Blood 177 mg/dL (75-99)
[2017-05-10] MEDS: hydrALAZINE HCL 20 MG/ML 1 ML VIAL IVP SCH (06:58)
[2017-05-10 07:07] LABS: Glucose,Whole Blood 156 mg/dL (75-99)
--- NOTE | 2017-05-10 07:25 | XR ---
EXAMINATION TYPE: XR chest 1V portable DATE OF EXAM: 05/10/2017 COMPARISON: 05/09/2017 INDICATION: Shortness of breath TECHNIQUE: Single frontal view of the chest is obtained. FINDINGS: The heart size is normal. The pulmonary vasculature is normal. There is improving opacity over the right lung. There appear to be multiple nodules in the perihilar region on the right. Endotracheal tube tip is above [place]. Nasogastric tube transverses the thorax. EKG leads overlie the chest. IMPRESSION: 1. Improving lung findings. Nodularity may be present in the right perihilar region. Continued follow -up is recommended
[2017-05-10] MEDS: ASPIRIN 81 MG PO SCH (08:08)
[2017-05-10] MEDS: PIPERACILLIN-TAZOBACTAM 3.375 GM in DEXTROSE/WATER 1 50ML.BAG IVPB SCH ×3 (08:08→23:55)
[2017-05-10] MEDS: PANTOPRAZOLE 40 MG/10 ML VIAL IVP SCH ×2 (08:08→20:31)
[2017-05-10] MEDS: PROPAFENONE 225 MG TAB PO SCH (08:08)
[2017-05-10] MEDS: CHLORHEXIDINE GLUCONATE 15 ML CUP MUCOUS MEM SCH ×2 (08:08→20:31)
[2017-05-10 08:23] LABS: Glucose,Whole Blood 205 mg/dL (75-99)
--- NOTE | 2017-05-10 08:56 | P.PN ---
Subjective Progress Note Date: 05/10/17 Principal diagnosis: This is a 76-year-old male seen in consultation because of acute kidney injury with ATN, after suffering a cardiac arrest. He was initially admitted and underwent an elective right carotid endarterectomy dated 05/06/2017. Postop he was stable until 05/08/2017 when he had the cardiac arrest, with a downtime of around 30 minutes. He was moved to ICU intubated. He became anuric. He was noted to be in congestive heart failure he was given Lasix yesterday. This starting to respond. This morning his off of levo fed. He is making fair amount of urine on Lasix drip 10 mg per hour. He is still on proper fall. His oxygenation is improved from 100% to 90%. The chest x-ray looks may be slightly better Objective - Vital Signs Vital signs: Vital Signs Temp 99.1 F 05/10/17 08:00 Pulse 84 05/10/17 08:00 Resp 17 05/10/17 08:00 BP 103/50 05/10/17 07:00 Pulse Ox 94 L 05/10/17 08:00 Intake & Output 05/09/17 05/10/17 05/10/17 18:59 06:59 18:59 Intake Total 903.194 822.410 322.729 Output Total 530 1225 110 Balance 373.194 -402.590 212.729 Weight 143.2 kg 142.1 kg Intake: IV 410.0 380 82.5 Furosemide 250 mg In 80 10 Sodium Chloride 0.9% 225 ml @ 10 MG/HR 10 mls/hr IVP .Q24H [facility] Rx#: [id number] KVO 280 330 60 Piperacillin-Tazobactam 3 50.0 50 12.5 .375 gm In Dextrose/Water 1 50ml.bag @ 12.5 mls/hr IVPB Q8HR [facility] Rx#: [id number] Intake, IV Titration 493.194 142.410 135.229 Amount Insulin Regular 100 unit 72.666 34.176 10.800 In Sodium Chloride 0.9% 100 ml @ Per Protocol IV .Q0M [facility] Rx#:[id number] Norepinephrin 16 mg-0.9% 13.438 9.964 3.563 Ns Pmx 16 mg In 250 ml @ Titrate IV .Q0M [facility] Rx#: [id number] Norepinephrin 4 mg-0.9% 250.000 Ns Pmx 4 mg In 250 ml @ Titrate IV .Q0M [facility] Rx#: [id number] Propofol 1,000 mg In 157.090 98.270 120.866 Empty Bag 1 bag @ Titrate IV .Q0M [facility] Rx#: [id number] Tube Feeding 270 75 Other 30 30 Output: Urine 530 1225 110 Other: Voiding Method Indwelling Catheter Indwelling Catheter ABP, PAP, CO, CI - Last Documented Arterial Blood Pressure 140/52 On examination is on the ventilator on 90% FiO2. He is on proper fall. Pupils are equal. Neck is supple no facial asymmetry He has hematoma around his neck mostly on the right but now also some swelling of the whole neck with hematoma. Lungs are clear to auscultation fair air entry bilaterally on the ventilator. Heart sounds are unremarkable no murmur rub gallop Abdomen is obese protuberant. Extremity exam was moderate edema Neurologically obtunded. Does move his limbs spontaneously. - Labs CBC & Chem 7: 05/10/17 03:54 05/10/17 03:54 Labs: Abnormal Lab Results - Last 24 Hours (Table) 05/09/17 05/09/17 05/09/17 Range/Units 09:29 10:45 11:38 WBC (3.8-10.6) k/uL RBC (4.30-5.90) m/uL Hgb (13.0-17.5) gm/dL Hct (39.0-53.0) % MCV (80.0-100.0) fL Neutrophils # (1.3-7.7) k/uL Monocytes # (0-1.0) k/uL PT (9.0-12.0) sec INR (<1.2) APTT (22.0-30.0) sec Fibrinogen (200-500) mg/dL D-Dimer (<0.60) mg/L FEU ABG pH (7.35-7.45) ABG pO2 (83-108) mmHg ABG HCO3 (21-25) mmol/L ABG Total CO2 (19-24) mmol/L ABG O2 Saturation (94-97) % BUN (9-20) mg/dL Creatinine (0.66-1.25) mg/dL Glucose (74-99) mg/dL POC Glucose (mg/dL) 230 H 207 H 227 H (75-99) mg/dL AST (17-59) U/L Total Protein (6.3-8.2) g/dL Albumin (3.5-5.0) g/dL 05/09/17 05/09/17 05/09/17 Range/Units 12:27 14:08 14:34 WBC (3.8-10.6) k/uL RBC (4.30-5.90) m/uL Hgb (13.0-17.5) gm/dL Hct (39.0-53.0) % MCV (80.0-100.0) fL Neutrophils # (1.3-7.7) k/uL Monocytes # (0-1.0) k/uL PT (9.0-12.0) sec INR (<1.2) APTT (22.0-30.0) sec Fibrinogen (200-500) mg/dL D-Dimer (<0.60) mg/L FEU ABG pH (7.35-7.45) ABG pO2 61 L 66 L (83-108) mmHg ABG HCO3 29 H 27 H (21-25) mmol/L ABG Total CO2 30 H 28 H (19-24) mmol/L ABG O2 Saturation 92.3 L (94-97) % BUN (9-20) mg/dL Creatinine (0.66-1.25) mg/dL Glucose (74-99) mg/dL POC Glucose (mg/dL) 189 H (75-99) mg/dL AST (17-59) U/L Total Protein (6.3-8.2) g/dL Albumin (3.5-5.0) g/dL 05/09/1718 05/09/17 Range/Units 14:50 14:50 14:50 WBC 16.3 H (3.8-10.6) k/uL RBC 3.07 L (4.30-5.90) m/uL Hgb 10.1 L (13.0-17.5) gm/dL Hct 32.5 L (39.0-53.0) % MCV 106.0 H (80.0-100.0) fL Neutrophils # 13.6 H (1.3-7.7) k/uL Monocytes # 1.2 H (0-1.0) k/uL PT 19.9 H (9.0-12.0) sec INR 2.2 H (<1.2) APTT 58.2 H (22.0-30.0) sec Fibrinogen (200-500) mg/dL D-Dimer (<0.60) mg/L FEU ABG pH (7.35-7.45) ABG pO2 (83-108) mmHg ABG HCO3 (21-25) mmol/L ABG Total CO2 (19-24) mmol/L ABG O2 Saturation (94-97) % BUN 51 H (9-20) mg/dL Creatinine 2.99 H (0.66-1.25) mg/dL Glucose 181 H (74-99) mg/dL POC Glucose (mg/dL) (75-99) mg/dL AST 114 H (17-59) U/L Total Protein (6.3-8.2) g/dL Albumin 3.4 L (3.5-5.0) g/dL 05/09/17 05/09/17 05/09/17 Range/Units 14:58 16:16 17:48 WBC (3.8-10.6) k/uL RBC (4.30-5.90) m/uL Hgb (13.0-17.5) gm/dL Hct (39.0-53.0) % MCV (80.0-100.0) fL Neutrophils # (1.3-7.7) k/uL Monocytes # (0-1.0) k/uL PT (9.0-12.0) sec INR (<1.2) APTT (22.0-30.0) sec Fibrinogen (200-500) mg/dL D-Dimer (<0.60) mg/L FEU ABG pH (7.35-7.45) ABG pO2 (83-108) mmHg ABG HCO3 (21-25) mmol/L ABG Total CO2 (19-24) mmol/L ABG O2 Saturation (94-97) % BUN (9-20) mg/dL Creatinine (0.66-1.25) mg/dL Glucose (74-99) mg/dL POC Glucose (mg/dL) 182 H 163 H 174 H (75-99) mg/dL AST (17-59) U/L Total Protein (6.3-8.2) g/dL Albumin (3.5-5.0) g/dL 05/09/17 05/09/17 05/09/17 Range/Units 18:48 20:36 21:40 WBC (3.8-10.6) k/uL RBC (4.30-5.90) m/uL Hgb (13.0-17.5) gm/dL Hct (39.0-53.0) % MCV (80.0-100.0) fL Neutrophils # (1.3-7.7) k/uL Monocytes # (0-1.0) k/uL PT (9.0-12.0) sec INR (<1.2) APTT (22.0-30.0) sec Fibrinogen (200-500) mg/dL D-Dimer (<0.60) mg/L FEU ABG pH (7.35-7.45) ABG pO2 (83-108) mmHg ABG HCO3 (21-25) mmol/L ABG Total CO2 (19-24) mmol/L ABG O2 Saturation (94-97) % BUN (9-20) mg/dL Creatinine (0.66-1.25) mg/dL Glucose (74-99) mg/dL POC Glucose (mg/dL) 151 H 130 H 155 H (75-99) mg/dL AST (17-59) U/L Total Protein (6.3-8.2) g/dL Albumin (3.5-5.0) g/dL 05/09/17 05/10/17 05/10/17 Range/Units 23:03 00:39 02:01 WBC (3.8-10.6) k/uL RBC (4.30-5.90) m/uL Hgb (13.0-17.5) gm/dL Hct (39.0-53.0) % MCV (80.0-100.0) fL Neutrophils # (1.3-7.7) k/uL Monocytes # (0-1.0) k/uL PT (9.0-12.0) sec INR (<1.2) APTT (22.0-30.0) sec Fibrinogen (200-500) mg/dL D-Dimer (<0.60) mg/L FEU ABG pH (7.35-7.45) ABG pO2 (83-108) mmHg ABG HCO3 (21-25) mmol/L ABG Total CO2 (19-24) mmol/L ABG O2 Saturation (94-97) % BUN (9-20) mg/dL Creatinine (0.66-1.25) mg/dL Glucose (74-99) mg/dL POC Glucose (mg/dL) 156 H 157 H 162 H (75-99) mg/dL AST (17-59) U/L Total Protein (6.3-8.2) g/dL Albumin (3.5-5.0) g/dL 05/10/17 05/10/17 05/10/17 Range/Units 03:33 03:50 03:54 WBC 18.0 H (3.8-10.6) k/uL RBC 2.99 L (4.30-5.90) m/uL Hgb 10.0 L (13.0-17.5) gm/dL Hct 31.6 L (39.0-53.0) % MCV 105.4 H (80.0-100.0) fL Neutrophils # 15.1 H (1.3-7.7) k/uL Monocytes # 1.1 H (0-1.0) k/uL PT 16.7 H (9.0-12.0) sec INR 1.8 H (<1.2) APTT 53.3 H (22.0-30.0) sec Fibrinogen 516 H (200-500) mg/dL D-Dimer 1.07 H (<0.60) mg/L FEU ABG pH (7.35-7.45) ABG pO2 (83-108) mmHg ABG HCO3 (21-25) mmol/L ABG Total CO2 (19-24) mmol/L ABG O2 Saturation (94-97) % BUN (9-20) mg/dL Creatinine (0.66-1.25) mg/dL Glucose (74-99) mg/dL POC Glucose (mg/dL) 199 H (75-99) mg/dL AST (17-59) U/L Total Protein (6.3-8.2) g/dL Albumin (3.5-5.0) g/dL 05/10/17 05/10/17 05/10/17 Range/Units 03:54 04:10 05:02 WBC (3.8-10.6) k/uL RBC (4.30-5.90) m/uL Hgb (13.0-17.5) gm/dL Hct (39.0-53.0) % MCV (80.0-100.0) fL Neutrophils # (1.3-7.7) k/uL Monocytes # (0-1.0) k/uL PT (9.0-12.0) sec INR (<1.2) APTT (22.0-30.0) sec Fibrinogen (200-500) mg/dL D-Dimer (<0.60) mg/L FEU ABG pH 7.46 H (7.35-7.45) ABG pO2 74 L (83-108) mmHg ABG HCO3 28 H (21-25) mmol/L ABG Total CO2 29 H (19-24) mmol/L ABG O2 Saturation (94-97) % BUN 58 H (9-20) mg/dL Creatinine 3.10 H (0.66-1.25) mg/dL Glucose 190 H (74-99) mg/dL POC Glucose (mg/dL) 172 H (75-99) mg/dL AST 153 H (17-59) U/L Total Protein 5.9 L (6.3-8.2) g/dL Albumin 3.2 L (3.5-5.0) g/dL 05/10/17 05/10/17 05/10/17 Range/Units 05:58 07:05 08:22 WBC (3.8-10.6) k/uL RBC (4.30-5.90) m/uL Hgb (13.0-17.5) gm/dL Hct (39.0-53.0) % MCV (80.0-100.0) fL Neutrophils # (1.3-7.7) k/uL Monocytes # (0-1.0) k/uL PT (9.0-12.0) sec INR (<1.2) APTT (22.0-30.0) sec Fibrinogen (200-500) mg/dL D-Dimer (<0.60) mg/L FEU ABG pH (7.35-7.45) ABG pO2 (83-108) mmHg ABG HCO3 (21-25) mmol/L ABG Total CO2 (19-24) mmol/L ABG O2 Saturation (94-97) % BUN (9-20) mg/dL Creatinine (0.66-1.25) mg/dL Glucose (74-99) mg/dL POC Glucose (mg/dL) 177 H 156 H 205 H (75-99) mg/dL AST (17-59) U/L Total Protein (6.3-8.2) g/dL Albumin (3.5-5.0) g/dL Microbiology - Last 24 Hours (Table) 05/09/17 04:18 Gram Stain - Preliminary Sputum Sputum Culture - Preliminary Assessment and Plan Assessment: Impression. 1. Acute kidney injury secondary to prolonged cardiac arrest of 30 minutes downtime. Was and uric with red bloody urine. With Lasix drip he is starting to open up creatinine has gone up 1.2-3.1 over the last 3 days. 2. Mild gap acidosis secondary to acute kidney injury. Resolved 3. Chronic kidney disease Baseline creatinine of 1.2-1.7 with large kidneys 13 and 14.9 cm by ultrasound in 2017 a year ago no proteinuria microalbumin to creatinine ratio is 4 mg/g of creatinine. Likely from nephrosclerosis possibility of renovascular disease considered. 3. Status post cardiac arrest downtime 30 minutes. 4. Status post elective right carotid endarterectomy 05/06/2017, was stable until late day before yesterday . 5. Pulmonary edema, chest x-ray may be slightly better 6. History of pericardial effusion in the past 7. Diabetes mellitus, atrial fibrillation, obstructive sleep apnea. Recommendation. 1. Continue Lasix drip at 10 mg an hour. 2. Start metolazone 10 mg by mouth via NG tube. 3. Monitor labs on a daily basis. 4. Avoid nephrotoxic medications
[2017-05-10] MEDS ORDERED: CISATRACURIUM 2 MG/ML 5 ML VIAL IV ONE ×3 (09:00→16:15)
[2017-05-10 09:40] LABS: Glucose,Whole Blood 191 mg/dL (75-99)
[2017-05-10] MEDS: METOLAZONE 5 MG TAB PO SCH ×2 (09:41→20:32)
[2017-05-10] MEDS: FUROSEMIDE 250 MG in SODIUM CHLORIDE 0.9% 225 ML IVP SCH (09:41)
--- NOTE | 2017-05-10 10:14 | P.PN ---
Progress Note - Text Progress Note Date: 05/10/17 Surgical progress note: Day for post carotid endarterectomy, date 2 post cardiac event. Please refer to detailed shingle catcher and nephrology notes for the details of his current issues and care. Patient is in guarded condition but somewhat stable post endarterectomy and abrupt cardiac event. Continuing with aggressive medical management. Discussed current care issues in detail with family members.
[2017-05-10 11:02] LABS: Glucose,Whole Blood 212 mg/dL (75-99)
--- NOTE | 2017-05-10 11:56 | P.PN ---
Subjective Progress Note Date: 05/10/17 Principal diagnosis: Carotid stenosis, status post right carotid endarterectomy. onsult dated 05/07/2017 This is a 76-year-old male who is postop day #1 status post right carotid endarterectomy. His primary physician is Dr. Patrick Mckenzie. Currently the patient's on 6 L high flow oxygen nitroglycerin drip at 60 mcg/m a saline IV at 75 mL an hour. He has a history of hypertension gout hyperlipidemia diabetes insomnia and a whole host of other major medical problems. He has no ALLERGIES. His home medications include metformin Ambien Flomax Rythmol Lyrica Pravachol 80. Zestril Motrin insulin Lasix Pradaxa colchicine Coreg aspirin Zyloprim and Tylenol. The patient seemed be doing relatively well. Obviously has some pain in the right neck area. Denies any chest pain or chest discomfort. No fever or chills. Any respiratory issues including difficulty breathing coughing wheezing shortness of breath or phlegm production. This note dated 05/08/2017 The patient is seen again today in follow-up in the intensive care unit. He is awake and alert in no acute distress. He is currently sitting up in a chair at the bedside. He is currently on 6 L nasal cannula to maintain O2 saturations in the 90s. His IV is to KVO. His nitro drip is off. He is receiving Lasix 60 mg today. He denies any itchiness, lightheadedness or weakness. No tingling or numbness. No focal deficits. Hemodynamically stable. Afebrile. White count 13.2. Hemoglobin 10.6. Creatinine 1.40. Progress note dated 05/09/2017 This is a patient who is postop day #3, status post right carotid endarterectomy. Apparently last night he pulled off his mask, told the nurse he was going to and that had a cardiopulmonary arrest. The code was called. He was resuscitated. He was intubated by anesthesia. The patient's currently in room 620. The family is in the room with him. He is currently on the assist control mode rate of 26, tidal volume 500, his FiO2 is 100%, and PEEP of 10. He was 8. On a PEEP of 8, his PaO2 was 55 a PaCO2 of 48 and a pH of 7.32. He is currently on norepinephrine at 17 mcg/m, propofol at 10 mics per kilogram per minute, insulin drip at 7 units per hour, seemingly 9 IV at 20 mL an hour and a Lasix drip at 10 mg an hour. A left radial art line was placed. I'll attempt a central line shortly. I did have a long talk with the family. The chest x-ray looks horrible with dense diffuse bilateral infiltrates right greater than left. He may have aspirated, I'm not sure. He is a no code. The family asked about withdrawing life support but I told him to give him a couple days to see if he responds to therapy. I spoke to his and also to his son Deion. Progress note dated 05/10/2017 The patient is seen again today in follow-up in the intensive care unit. This is postoperative day #4. He remains intubated and on the mechanical ventilator with current settings of assist control 26, tidal volume 500, FiO2 90% and a PEEP of 13. Morning blood gases reveal a pO2 of 74, pCO2 40, pH 7.46. He remains sedated on propofol at 20 mcg/kg/m. Norepinephrine is currently off. He is 0.9 normal saline at 30 MLS per hour. Insulin drip at 5.5 units per hour. Lasix 10 mg per hour. He is being nourished with Vital HP at 45 miles per hour with a goal of 60. We will hoping he would be able to tolerate a computed tomography scan of the brain once he lies flat he desaturates and gets hypotensive. His chest x-ray continues to show diffuse bilateral infiltrates right greater than left. Urine, sputum and blood cultures reveal no growth to date. White count 18.0. Hemoglobin 10.0. Platelet count 212. INR 1.8. BUN 58. Creatinine 3.10. Objective - Vital Signs Vital signs: Vital Signs Temp 99.1 F 05/10/17 08:00 Pulse 80 05/10/17 11:00 Resp 26 H 05/10/17 11:00 BP 111/49 05/10/17 09:00 Pulse Ox 95 05/10/17 11:00 Intake & Output 05/09/17 05/10/17 05/10/17 18:59 06:59 18:59 Intake Total 903.194 822.410 857.981 Output Total 530 1225 235 Balance 373.194 -402.590 622.981 Weight 143.2 kg 142.1 kg Intake: IV 410.0 380 197.5 Furosemide 250 mg In 80 40 Sodium Chloride 0.9% 225 ml @ 10 MG/HR 10 mls/hr IVP .Q24H [facility] Rx#: [id number] KVO 280 330 120 Piperacillin-Tazobactam 3 50.0 50 37.5 .375 gm In Dextrose/Water 1 50ml.bag @ 12.5 mls/hr IVPB Q8HR [facility] Rx#: [id number] Intake, IV Titration 493.194 142.410 375.481 Amount Furosemide 250 mg In 215.667 Sodium Chloride 0.9% 225 ml @ 10 MG/HR 10 mls/hr IVP .Q24H [facility] Rx#: [id number] Insulin Regular 100 unit 72.666 34.176 26.041 In Sodium Chloride 0.9% 100 ml @ Per Protocol IV .Q0M [facility] Rx#:[id number] Norepinephrin 16 mg-0.9% 13.438 9.964 12.907 Ns Pmx 16 mg In 250 ml @ Titrate IV .Q0M [facility] Rx#: [id number] Norepinephrin 4 mg-0.9% 250.000 Ns Pmx 4 mg In 250 ml @ Titrate IV .Q0M [facility] Rx#: [id number] Propofol 1,000 mg In 157.090 98.270 120.866 Empty Bag 1 bag @ Titrate IV .Q0M [facility] Rx#: [id number] Tube Feeding 270 255 Other 30 30 Output: Urine 530 1225 235 Other: Voiding Method Indwelling Catheter Indwelling Catheter Indwelling Catheter ABP, PAP, CO, CI - Last Documented Arterial Blood Pressure 143/52 - Exam GENERAL EXAM: Intubated, sedated. HEAD: Normocephalic. EYES: Normal reaction of pupils, equal size. NOSE: Clear with pink turbinates. THROAT: Oral endotracheal and gastric stricture secured in place. NECK: Ecchymosis and edema. CHEST: No chest wall deformity. LUNGS: Equal air entry with crackles in the bilateral posterior bases, right greater than left. CVS: S1 and S2 normal with no audible murmur, regular rhythm. ABDOMEN: No hepatosplenomegaly,hypoactive bowel sounds, no guarding or rigidity. SPINE: No scoliosis or deformity SKIN: No rashes CENTRAL NERVOUS SYSTEM: No focal deficits, tone is normal in all 4 extremities. EXTREMITIES: There is 1-2+ peripheral edema. No clubbing, no cyanosis. Peripheral pulses are intact. - Labs CBC & Chem 7: 05/10/17 03:54 05/10/17 03:54 Labs: Abnormal Lab Results - Last 24 Hours (Table) 05/09/17 05/09/17 05/09/17 Range/Units 12:27 14:08 14:34 WBC (3.8-10.6) k/uL RBC (4.30-5.90) m/uL Hgb (13.0-17.5) gm/dL Hct (39.0-53.0) % MCV (80.0-100.0) fL Neutrophils # (1.3-7.7) k/uL Monocytes # (0-1.0) k/uL PT (9.0-12.0) sec INR (<1.2) APTT (22.0-30.0) sec Fibrinogen (200-500) mg/dL D-Dimer (<0.60) mg/L FEU ABG pH (7.35-7.45) ABG pO2 61 L 66 L (83-108) mmHg ABG HCO3 29 H 27 H (21-25) mmol/L ABG Total CO2 30 H 28 H (19-24) mmol/L ABG O2 Saturation 92.3 L (94-97) % BUN (9-20) mg/dL Creatinine (0.66-1.25) mg/dL Glucose (74-99) mg/dL POC Glucose (mg/dL) 189 H (75-99) mg/dL AST (17-59) U/L Total Protein (6.3-8.2) g/dL Albumin (3.5-5.0) g/dL 05/09/17 05/09/17 05/09/17 Range/Units 14:50 14:50 14:50 WBC 16.3 H (3.8-10.6) k/uL RBC 3.07 L (4.30-5.90) m/uL Hgb 10.1 L (13.0-17.5) gm/dL Hct 32.5 L (39.0-53.0) % MCV 106.0 H (80.0-100.0) fL Neutrophils # 13.6 H (1.3-7.7) k/uL Monocytes # 1.2 H (0-1.0) k/uL PT 19.9 H (9.0-12.0) sec INR 2.2 H (<1.2) APTT 58.2 H (22.0-30.0) sec Fibrinogen (200-500) mg/dL D-Dimer (<0.60) mg/L FEU ABG pH (7.35-7.45) ABG pO2 (83-108) mmHg ABG HCO3 (21-25) mmol/L ABG Total CO2 (19-24) mmol/L ABG O2 Saturation (94-97) % BUN 51 H (9-20) mg/dL Creatinine 2.99 H (0.66-1.25) mg/dL Glucose 181 H (74-99) mg/dL POC Glucose (mg/dL) (75-99) mg/dL AST 114 H (17-59) U/L Total Protein (6.3-8.2) g/dL Albumin 3.4 L (3.5-5.0) g/dL 05/09/17 05/09/17 05/09/17 Range/Units 14:58 16:16 17:48 WBC (3.8-10.6) k/uL RBC (4.30-5.90) m/uL Hgb (13.0-17.5) gm/dL Hct (39.0-53.0) % MCV (80.0-100.0) fL Neutrophils # (1.3-7.7) k/uL Monocytes # (0-1.0) k/uL PT (9.0-12.0) sec INR (<1.2) APTT (22.0-30.0) sec Fibrinogen (200-500) mg/dL D-Dimer (<0.60) mg/L FEU ABG pH (7.35-7.45) ABG pO2 (83-108) mmHg ABG HCO3 (21-25) mmol/L ABG Total CO2 (19-24) mmol/L ABG O2 Saturation (94-97) % BUN (9-20) mg/dL Creatinine (0.66-1.25) mg/dL Glucose (74-99) mg/dL POC Glucose (mg/dL) 182 H 163 H 174 H (75-99) mg/dL AST (17-59) U/L Total Protein (6.3-8.2) g/dL Albumin (3.5-5.0) g/dL 05/09/17 05/09/17 05/09/17 Range/Units 18:48 20:36 21:40 WBC (3.8-10.6) k/uL RBC (4.30-5.90) m/uL Hgb (13.0-17.5) gm/dL Hct (39.0-53.0) % MCV (80.0-100.0) fL Neutrophils # (1.3-7.7) k/uL Monocytes # (0-1.0) k/uL PT (9.0-12.0) sec INR (<1.2) APTT (22.0-30.0) sec Fibrinogen (200-500) mg/dL D-Dimer (<0.60) mg/L FEU ABG pH (7.35-7.45) ABG pO2 (83-108) mmHg ABG HCO3 (21-25) mmol/L ABG Total CO2 (19-24) mmol/L ABG O2 Saturation (94-97) % BUN (9-20) mg/dL Creatinine (0.66-1.25) mg/dL Glucose (74-99) mg/dL POC Glucose (mg/dL) 151 H 130 H 155 H (75-99) mg/dL AST (17-59) U/L Total Protein (6.3-8.2) g/dL Albumin (3.5-5.0) g/dL 05/09/17 05/10/17 05/10/17 Range/Units 23:03 00:39 02:01 WBC (3.8-10.6) k/uL RBC (4.30-5.90) m/uL Hgb (13.0-17.5) gm/dL Hct (39.0-53.0) % MCV (80.0-100.0) fL Neutrophils # (1.3-7.7) k/uL Monocytes # (0-1.0) k/uL PT (9.0-12.0) sec INR (<1.2) APTT (22.0-30.0) sec Fibrinogen (200-500) mg/dL D-Dimer (<0.60) mg/L FEU ABG pH (7.35-7.45) ABG pO2 (83-108) mmHg ABG HCO3 (21-25) mmol/L ABG Total CO2 (19-24) mmol/L ABG O2 Saturation (94-97) % BUN (9-20) mg/dL Creatinine (0.66-1.25) mg/dL Glucose (74-99) mg/dL POC Glucose (mg/dL) 156 H 157 H 162 H (75-99) mg/dL AST (17-59) U/L Total Protein (6.3-8.2) g/dL Albumin (3.5-5.0) g/dL 05/10/17 05/10/17 05/10/17 Range/Units 03:33 03:50 03:54 WBC 18.0 H (3.8-10.6) k/uL RBC 2.99 L (4.30-5.90) m/uL Hgb 10.0 L (13.0-17.5) gm/dL Hct 31.6 L (39.0-53.0) % MCV 105.4 H (80.0-100.0) fL Neutrophils # 15.1 H (1.3-7.7) k/uL Monocytes # 1.1 H (0-1.0) k/uL PT 16.7 H (9.0-12.0) sec INR 1.8 H (<1.2) APTT 53.3 H (22.0-30.0) sec Fibrinogen 516 H (200-500) mg/dL D-Dimer 1.07 H (<0.60) mg/L FEU ABG pH (7.35-7.45) ABG pO2 (83-108) mmHg ABG HCO3 (21-25) mmol/L ABG Total CO2 (19-24) mmol/L ABG O2 Saturation (94-97) % BUN (9-20) mg/dL Creatinine (0.66-1.25) mg/dL Glucose (74-99) mg/dL POC Glucose (mg/dL) 199 H (75-99) mg/dL AST (17-59) U/L Total Protein (6.3-8.2) g/dL Albumin (3.5-5.0) g/dL 05/10/17 05/10/17 05/10/17 Range/Units 03:54 04:10 05:02 WBC (3.8-10.6) k/uL RBC (4.30-5.90) m/uL Hgb (13.0-17.5) gm/dL Hct (39.0-53.0) % MCV (80.0-100.0) fL Neutrophils # (1.3-7.7) k/uL Monocytes # (0-1.0) k/uL PT (9.0-12.0) sec INR (<1.2) APTT (22.0-30.0) sec Fibrinogen (200-500) mg/dL D-Dimer (<0.60) mg/L FEU ABG pH 7.46 H (7.35-7.45) ABG pO2 74 L (83-108) mmHg ABG HCO3 28 H (21-25) mmol/L ABG Total CO2 29 H (19-24) mmol/L ABG O2 Saturation (94-97) % BUN 58 H (9-20) mg/dL Creatinine 3.10 H (0.66-1.25) mg/dL Glucose 190 H (74-99) mg/dL POC Glucose (mg/dL) 172 H (75-99) mg/dL AST 153 H (17-59) U/L Total Protein 5.9 L (6.3-8.2) g/dL Albumin 3.2 L (3.5-5.0) g/dL 05/10/17 05/10/17 05/10/17 Range/Units 05:58 07:05 08:22 WBC (3.8-10.6) k/uL RBC (4.30-5.90) m/uL Hgb (13.0-17.5) gm/dL Hct (39.0-53.0) % MCV (80.0-100.0) fL Neutrophils # (1.3-7.7) k/uL Monocytes # (0-1.0) k/uL PT (9.0-12.0) sec INR (<1.2) APTT (22.0-30.0) sec Fibrinogen (200-500) mg/dL D-Dimer (<0.60) mg/L FEU ABG pH (7.35-7.45) ABG pO2 (83-108) mmHg ABG HCO3 (21-25) mmol/L ABG Total CO2 (19-24) mmol/L ABG O2 Saturation (94-97) % BUN (9-20) mg/dL Creatinine (0.66-1.25) mg/dL Glucose (74-99) mg/dL POC Glucose (mg/dL) 177 H 156 H 205 H (75-99) mg/dL AST (17-59) U/L Total Protein (6.3-8.2) g/dL Albumin (3.5-5.0) g/dL 05/10/17 05/10/17 Range/Units 09:38 11:00 WBC (3.8-10.6) k/uL RBC (4.30-5.90) m/uL Hgb (13.0-17.5) gm/dL Hct (39.0-53.0) % MCV (80.0-100.0) fL Neutrophils # (1.3-7.7) k/uL Monocytes # (0-1.0) k/uL PT (9.0-12.0) sec INR (<1.2) APTT (22.0-30.0) sec Fibrinogen (200-500) mg/dL D-Dimer (<0.60) mg/L FEU ABG pH (7.35-7.45) ABG pO2 (83-108) mmHg ABG HCO3 (21-25) mmol/L ABG Total CO2 (19-24) mmol/L ABG O2 Saturation (94-97) % BUN (9-20) mg/dL Creatinine (0.66-1.25) mg/dL Glucose (74-99) mg/dL POC Glucose (mg/dL) 191 H 212 H (75-99) mg/dL AST (17-59) U/L Total Protein (6.3-8.2) g/dL Albumin (3.5-5.0) g/dL Microbiology - Last 24 Hours (Table) 05/09/17 09:12 Blood Culture - Preliminary Blood No Growth after 24 hours 05/09/17 04:18 Gram Stain - Preliminary Sputum Sputum Culture - Preliminary Assessment and Plan Assessment: Assessment Postop day #4, status post right carotid endarterectomy Status post cardiopulmonary arrest, likely respiratory in nature, with cardiopulmonary resuscitation and return of spontaneous circulation Hypoxemic respiratory failure with bilateral diffuse dense infiltrates History of diabetes Hypertension Hyperlipidemia Gout. Obesity Plan: The patient was seen and evaluated by Dr. Kinney. We will go ahead and make vent adjustments decreasing the FiO2 to 60% and increasing the PEEP to 15. Head CT is pending which will be performed once the patient is more stable. Continue with his current medications. Cardiology is on the case and is getting dopamine at 2.5 mcg/m. Dr. Kinney had ongoing discussions today with the family. The patient is a DO NOT RESUSCITATE CODE STATUS. Otherwise we'll continue with full supportive care for now. His condition remains quite critical at this point. We will continue to follow and make further recommendations based on his clinical status. Critical care time 45 minutes. I, the cosigning physician, performed a history & physical examination of the patient. Lungs sounds with crackles in the bilateral posterior bases. Maintaining good O2 saturations in the 90s on 60% FiO2 with a PEEP of 15.. I discussed the assessment and plan of care with my nurse practitioner, Fabiana Gee. I attest to the above note as dictated by her. Time with Patient: Greater than 30
--- NOTE | 2017-05-10 11:58 | PN ---
PROGRESS NOTE This patient is status post carotid endarterectomy with acute cardiorespiratory arrest and patient currently remains intubated. The patient's progress over the last 24 hours reviewed. The patient has remained stable over the last 24 hours. The Levophed is being weaned off and he is has made about 7-800 mL of urine over the last 12 hours. Blood pressure is 143/52 mmHg. Heart: First and second heart sounds are normal. Lungs examination reveals bilateral scattered wheezing. Chest x-ray shows improvement in the lung infiltrates. Arterial blood gases shows a pH of 7.46, pCO2 is 40, PO2 is 74, creatinine is 3.1, maximum troponin was 2.8, echocardiogram revealed global hypokinesia with ejection fraction of less than 30%. RECOMMENDATIONS: At present, we will recommend to continue the patient on the supportive treatment. JENNIFER / BOZENA: [id number] /
[2017-05-10] MEDS: IPRATROPIUM-ALBUTEROL 3 ML NEB INHALATION SCH ×3 (12:12→20:34)
[2017-05-10 12:16] LABS: Glucose,Whole Blood 205 mg/dL (75-99)
--- NOTE | 2017-05-10 12:24 | P.PN ---
Subjective Progress Note Date: 05/10/17 Principal diagnosis: Patient was admitted for elective right carotid endarterectomy secondary to severe carotid stenosis, status post acute coronary respiratory arrest with successful resuscitation and denominational of circulation, patient is considered critical at this time family has agreed to make patient a DO NOT RESUSCITATE. Her continuing full support at this time Last evening I was called to be notified at approximately 9:30 PM that this patient became agitated took off his BiPAP tried to stand up stated that he was going to and proceeded to undergo acute respiratory cardiac arrest he was pulseless for about 20 minutes CPR was performed patient was intubated his pulse was regained he was placed on pressors including levo fed patient had her line placed labs were performed troponins were elevated suspect patient had a stress induced OR. Patient is currently sedated and on the ventilator, FiO2 60 % PEEP of 15, please note there is a significant amount of edema around the throats with ecchymosis secondary to right carotid endarterectomy postop day #4 Objective - Vital Signs Vital signs: Vital Signs Temp 99.1 F 05/10/17 08:00 Pulse 79 05/10/17 12:14 Resp 26 H 05/10/17 11:00 BP 111/49 05/10/17 09:00 Pulse Ox 95 05/10/17 11:00 Intake & Output 05/09/17 05/10/17 05/10/17 18:59 06:59 18:59 Intake Total 903.194 822.410 857.981 Output Total 530 1225 235 Balance 373.194 -402.590 622.981 Weight 143.2 kg 142.1 kg Intake: IV 410.0 380 197.5 Furosemide 250 mg In 80 40 Sodium Chloride 0.9% 225 ml @ 10 MG/HR 10 mls/hr IVP .Q24H JOSÉ MIGUEL Rx#: [id number] KVO 280 330 120 Piperacillin-Tazobactam 3 50.0 50 37.5 .375 gm In Dextrose/Water 1 50ml.bag @ 12.5 mls/hr IVPB Q8HR JOSÉ MIGUEL Rx#: [id number] Intake, IV Titration 493.194 142.410 375.481 Amount Furosemide 250 mg In 215.667 Sodium Chloride 0.9% 225 ml @ 10 MG/HR 10 mls/hr IVP .Q24H JOSÉ MIGUEL Rx#: [id number] Insulin Regular 100 unit 72.666 34.176 26.041 In Sodium Chloride 0.9% 100 ml @ Per Protocol IV .Q0M JOSÉ MIGUEL Rx#:[id number] Norepinephrin 16 mg-0.9% 13.438 9.964 12.907 Ns Pmx 16 mg In 250 ml @ Titrate IV .Q0M JOSÉ MIGUEL Rx#: [id number] Norepinephrin 4 mg-0.9% 250.000 Ns Pmx 4 mg In 250 ml @ Titrate IV .Q0M JOSÉ MIGUEL Rx#: [id number] Propofol 1,000 mg In 157.090 98.270 120.866 Empty Bag 1 bag @ Titrate IV .Q0M JOSÉ MIGUEL Rx#: [id number] Tube Feeding 270 255 Other 30 30 Output: Urine 530 1225 235 Other: Voiding Method Indwelling Catheter Indwelling Catheter Indwelling Catheter ABP, PAP, CO, CI - Last Documented Arterial Blood Pressure 143/52 - Exam General: Patient is intubated sedated on vent, ventilator settings FiO2 60%, PEEP of 15 HEENT: [PERRL. EOMI. No pharyngeal erythema or exudate.] Neck: Significant edema to the neck ecchymosis significant on the right side secondary to carotid endarterectomy postoperative day #4 Cardiac: [Heart regular in rate and rhythm. No S3. No S4. No clicks, rubs. No murmur.] Lungs: Breath sounds appear improved with auscultation bilaterally Abdomen: [No mass. No organomegaly. Bowel sounds presnt and normoactive in all 4 quadrants.] Extremes: 1-2+ edema all 4 extremes : [] Musculoskeletal: [No joint erythema, edema or tenderness.] Skin: [No rash.] Neurologic: [No lateralizing deficits. CN II - XII grossly intact.] Lymphatic: [No adenopathy.] - Labs CBC & Chem 7: 05/10/17 03:54 05/10/17 03:54 Labs: Abnormal Lab Results - Last 24 Hours (Table) 05/09/17 05/09/17 05/09/17 Range/Units 12:27 14:08 14:34 WBC (3.8-10.6) k/uL RBC (4.30-5.90) m/uL Hgb (13.0-17.5) gm/dL Hct (39.0-53.0) % MCV (80.0-100.0) fL Neutrophils # (1.3-7.7) k/uL Monocytes # (0-1.0) k/uL PT (9.0-12.0) sec INR (<1.2) APTT (22.0-30.0) sec Fibrinogen (200-500) mg/dL D-Dimer (<0.60) mg/L FEU ABG pH (7.35-7.45) ABG pO2 61 L 66 L (83-108) mmHg ABG HCO3 29 H 27 H (21-25) mmol/L ABG Total CO2 30 H 28 H (19-24) mmol/L ABG O2 Saturation 92.3 L (94-97) % BUN (9-20) mg/dL Creatinine (0.66-1.25) mg/dL Glucose (74-99) mg/dL POC Glucose (mg/dL) 189 H (75-99) mg/dL AST (17-59) U/L Total Protein (6.3-8.2) g/dL Albumin (3.5-5.0) g/dL 05/09/17 05/09/17 05/09/17 Range/Units 14:50 14:50 14:50 WBC 16.3 H (3.8-10.6) k/uL RBC 3.07 L (4.30-5.90) m/uL Hgb 10.1 L (13.0-17.5) gm/dL Hct 32.5 L (39.0-53.0) % MCV 106.0 H (80.0-100.0) fL Neutrophils # 13.6 H (1.3-7.7) k/uL Monocytes # 1.2 H (0-1.0) k/uL PT 19.9 H (9.0-12.0) sec INR 2.2 H (<1.2) APTT 58.2 H (22.0-30.0) sec Fibrinogen (200-500) mg/dL D-Dimer (<0.60) mg/L FEU ABG pH (7.35-7.45) ABG pO2 (83-108) mmHg ABG HCO3 (21-25) mmol/L ABG Total CO2 (19-24) mmol/L ABG O2 Saturation (94-97) % BUN 51 H (9-20) mg/dL Creatinine 2.99 H (0.66-1.25) mg/dL Glucose 181 H (74-99) mg/dL POC Glucose (mg/dL) (75-99) mg/dL AST 114 H (17-59) U/L Total Protein (6.3-8.2) g/dL Albumin 3.4 L (3.5-5.0) g/dL 05/09/17 05/09/17 05/09/17 Range/Units 14:58 16:16 17:48 WBC (3.8-10.6) k/uL RBC (4.30-5.90) m/uL Hgb (13.0-17.5) gm/dL Hct (39.0-53.0) % MCV (80.0-100.0) fL Neutrophils # (1.3-7.7) k/uL Monocytes # (0-1.0) k/uL PT (9.0-12.0) sec INR (<1.2) APTT (22.0-30.0) sec Fibrinogen (200-500) mg/dL D-Dimer (<0.60) mg/L FEU ABG pH (7.35-7.45) ABG pO2 (83-108) mmHg ABG HCO3 (21-25) mmol/L ABG Total CO2 (19-24) mmol/L ABG O2 Saturation (94-97) % BUN (9-20) mg/dL Creatinine (0.66-1.25) mg/dL Glucose (74-99) mg/dL POC Glucose (mg/dL) 182 H 163 H 174 H (75-99) mg/dL AST (17-59) U/L Total Protein (6.3-8.2) g/dL Albumin (3.5-5.0) g/dL 05/09/17 05/09/17 05/09/17 Range/Units 18:48 20:36 21:40 WBC (3.8-10.6) k/uL RBC (4.30-5.90) m/uL Hgb (13.0-17.5) gm/dL Hct (39.0-53.0) % MCV (80.0-100.0) fL Neutrophils # (1.3-7.7) k/uL Monocytes # (0-1.0) k/uL PT (9.0-12.0) sec INR (<1.2) APTT (22.0-30.0) sec Fibrinogen (200-500) mg/dL D-Dimer (<0.60) mg/L FEU ABG pH (7.35-7.45) ABG pO2 (83-108) mmHg ABG HCO3 (21-25) mmol/L ABG Total CO2 (19-24) mmol/L ABG O2 Saturation (94-97) % BUN (9-20) mg/dL Creatinine (0.66-1.25) mg/dL Glucose (74-99) mg/dL POC Glucose (mg/dL) 151 H 130 H 155 H (75-99) mg/dL AST (17-59) U/L Total Protein (6.3-8.2) g/dL Albumin (3.5-5.0) g/dL 05/09/17 05/10/17 05/10/17 Range/Units 23:03 00:39 02:01 WBC (3.8-10.6) k/uL RBC (4.30-5.90) m/uL Hgb (13.0-17.5) gm/dL Hct (39.0-53.0) % MCV (80.0-100.0) fL Neutrophils # (1.3-7.7) k/uL Monocytes # (0-1.0) k/uL PT (9.0-12.0) sec INR (<1.2) APTT (22.0-30.0) sec Fibrinogen (200-500) mg/dL D-Dimer (<0.60) mg/L FEU ABG pH (7.35-7.45) ABG pO2 (83-108) mmHg ABG HCO3 (21-25) mmol/L ABG Total CO2 (19-24) mmol/L ABG O2 Saturation (94-97) % BUN (9-20) mg/dL Creatinine (0.66-1.25) mg/dL Glucose (74-99) mg/dL POC Glucose (mg/dL) 156 H 157 H 162 H (75-99) mg/dL AST (17-59) U/L Total Protein (6.3-8.2) g/dL Albumin (3.5-5.0) g/dL 05/10/17 05/10/17 05/10/17 Range/Units 03:33 03:50 03:54 WBC 18.0 H (3.8-10.6) k/uL RBC 2.99 L (4.30-5.90) m/uL Hgb 10.0 L (13.0-17.5) gm/dL Hct 31.6 L (39.0-53.0) % MCV 105.4 H (80.0-100.0) fL Neutrophils # 15.1 H (1.3-7.7) k/uL Monocytes # 1.1 H (0-1.0) k/uL PT 16.7 H (9.0-12.0) sec INR 1.8 H (<1.2) APTT 53.3 H (22.0-30.0) sec Fibrinogen 516 H (200-500) mg/dL D-Dimer 1.07 H (<0.60) mg/L FEU ABG pH (7.35-7.45) ABG pO2 (83-108) mmHg ABG HCO3 (21-25) mmol/L ABG Total CO2 (19-24) mmol/L ABG O2 Saturation (94-97) % BUN (9-20) mg/dL Creatinine (0.66-1.25) mg/dL Glucose (74-99) mg/dL POC Glucose (mg/dL) 199 H (75-99) mg/dL AST (17-59) U/L Total Protein (6.3-8.2) g/dL Albumin (3.5-5.0) g/dL 05/10/17 05/10/17 05/10/17 Range/Units 03:54 04:10 05:02 WBC (3.8-10.6) k/uL RBC (4.30-5.90) m/uL Hgb (13.0-17.5) gm/dL Hct (39.0-53.0) % MCV (80.0-100.0) fL Neutrophils # (1.3-7.7) k/uL Monocytes # (0-1.0) k/uL PT (9.0-12.0) sec INR (<1.2) APTT (22.0-30.0) sec Fibrinogen (200-500) mg/dL D-Dimer (<0.60) mg/L FEU ABG pH 7.46 H (7.35-7.45) ABG pO2 74 L (83-108) mmHg ABG HCO3 28 H (21-25) mmol/L ABG Total CO2 29 H (19-24) mmol/L ABG O2 Saturation (94-97) % BUN 58 H (9-20) mg/dL Creatinine 3.10 H (0.66-1.25) mg/dL Glucose 190 H (74-99) mg/dL POC Glucose (mg/dL) 172 H (75-99) mg/dL AST 153 H (17-59) U/L Total Protein 5.9 L (6.3-8.2) g/dL Albumin 3.2 L (3.5-5.0) g/dL 05/10/17 05/10/17 05/10/17 Range/Units 05:58 07:05 08:22 WBC (3.8-10.6) k/uL RBC (4.30-5.90) m/uL Hgb (13.0-17.5) gm/dL Hct (39.0-53.0) % MCV (80.0-100.0) fL Neutrophils # (1.3-7.7) k/uL Monocytes # (0-1.0) k/uL PT (9.0-12.0) sec INR (<1.2) APTT (22.0-30.0) sec Fibrinogen (200-500) mg/dL D-Dimer (<0.60) mg/L FEU ABG pH (7.35-7.45) ABG pO2 (83-108) mmHg ABG HCO3 (21-25) mmol/L ABG Total CO2 (19-24) mmol/L ABG O2 Saturation (94-97) % BUN (9-20) mg/dL Creatinine (0.66-1.25) mg/dL Glucose (74-99) mg/dL POC Glucose (mg/dL) 177 H 156 H 205 H (75-99) mg/dL AST (17-59) U/L Total Protein (6.3-8.2) g/dL Albumin (3.5-5.0) g/dL 05/10/17 05/10/17 Range/Units 09:38 11:00 WBC (3.8-10.6) k/uL RBC (4.30-5.90) m/uL Hgb (13.0-17.5) gm/dL Hct (39.0-53.0) % MCV (80.0-100.0) fL Neutrophils # (1.3-7.7) k/uL Monocytes # (0-1.0) k/uL PT (9.0-12.0) sec INR (<1.2) APTT (22.0-30.0) sec Fibrinogen (200-500) mg/dL D-Dimer (<0.60) mg/L FEU ABG pH (7.35-7.45) ABG pO2 (83-108) mmHg ABG HCO3 (21-25) mmol/L ABG Total CO2 (19-24) mmol/L ABG O2 Saturation (94-97) % BUN (9-20) mg/dL Creatinine (0.66-1.25) mg/dL Glucose (74-99) mg/dL POC Glucose (mg/dL) 191 H 212 H (75-99) mg/dL AST (17-59) U/L Total Protein (6.3-8.2) g/dL Albumin (3.5-5.0) g/dL Microbiology - Last 24 Hours (Table) 05/09/17 04:18 Gram Stain - Preliminary Sputum Sputum Culture - Preliminary 05/09/17 09:12 Blood Culture - Preliminary Blood No Growth after 24 hours Assessment and Plan (1) Cardiopulmonary arrest with successful resuscitation Narrative/Plan: Patient intubated sedated and on vent Current Visit: Yes Status: Acute Code(s): I46.9 - CARDIAC ARREST, CAUSE UNSPECIFIED SNOMED Code(s): 077859556 (2) History of coronary artery disease Narrative/Plan: Status post successful right carotid endarterectomy with complication of cardio pulmonary arrest with successful resuscitation Current Visit: Yes Status: Acute Code(s): Z86.79 - PERSONAL HISTORY OF OTHER DISEASES OF THE CIRCULATORY SYSTEM SNOMED Code(s): 546505526 (3) Stenosis of right carotid artery Narrative/Plan: Right-sided endarterectomy postoperative day #4 Current Visit: Yes Status: Acute Code(s): I65.21 - OCCLUSION AND STENOSIS OF RIGHT CAROTID ARTERY SNOMED Code(s): 195186508797895 Plan: Family is alert to the critical acuity of patient's condition they've agreed to allow patient to become a DO NOT RESUSCITATE however they are not ready to withdrawal port at this time awaiting CAT scan of the brain to be performed once patient is stable enough to travel to CAT scan We'll continue to follow prognosis critical Time with Patient: Greater than 30
[2017-05-10 13:47] LABS: Glucose,Whole Blood 197 mg/dL (75-99)
[2017-05-10] MEDS: INSULIN REGULAR 100 UNIT in SODIUM CHLORIDE 0.9% 100 ML IV SCH (13:49)
[2017-05-10 14:42] LABS: Glucose,Whole Blood 216 mg/dL (75-99)
--- NOTE | 2017-05-10 16:29 | CT ---
EXAMINATION TYPE: CT brain wo con DATE OF EXAM: 05/10/2017 COMPARISON: NONE HISTORY: Unresponsive. CT DLP: 882 mGycm Automated exposure control for dose reduction was used. FINDINGS: There is cerebral cortical atrophy. There is no mass effect nor midline shift. There is no sign of in tracranial hemorrhage. The calvarium is intact. There is some mucosal thickening in the ethmoid air c ells. IMPRESSION: CEREBRAL ATROPHY. NO ACUTE INTRACRANIAL ABNORMALITY. MILD ETHMOID SINUSITIS.
[2017-05-10 16:41] LABS: Glucose,Whole Blood 196 mg/dL (75-99)
[2017-05-10 18:01] LABS: Glucose,Whole Blood 183 mg/dL (75-99)
[2017-05-10 19:36] LABS: Glucose,Whole Blood 205 mg/dL (75-99)
[2017-05-10 20:04] LABS: Glucose,Whole Blood 187 mg/dL (75-99)
[2017-05-10 20:59] LABS: Glucose,Whole Blood 191 mg/dL (75-99)
[2017-05-10 21:56] LABS: Glucose,Whole Blood 179 mg/dL (75-99)
[2017-05-10 23:01] LABS: Glucose,Whole Blood 153 mg/dL (75-99)
[2017-05-10 23:27] LABS: Glucose,Whole Blood 168 mg/dL (75-99)
[2017-05-11] LABS: ABG Base Excess 5.1 mmol/L; ABG HCO3 28 mmol/L (21-25); ABG Oxygen Saturation 97.5 % (94-97); ABG PCO2 37 mmHg (35-45); ABG PH 7.49 (7.35-7.45); ABG PO2 95 mmHg (83-108); ABG TCO2 30 mmol/L (19-24)
[2017-05-11] MEDS: IPRATROPIUM-ALBUTEROL 3 ML NEB INHALATION SCH ×7 (00:43→23:51)
[2017-05-11] MEDS: PROPOFOL 1,000 MG in EMPTY BAG 1 BAG IV SCH ×5 (00:58→23:00)
[2017-05-11] MEDS: MORPHINE SULFATE 4 MG/ML SYRINGE IVP PRN ×2 (00:58→21:14)
[2017-05-11 01:04] LABS: Glucose,Whole Blood 174 mg/dL (75-99)
[2017-05-11 02:24] LABS: Glucose,Whole Blood 186 mg/dL (75-99)
[2017-05-11 03:12] LABS: Glucose,Whole Blood 172 mg/dL (75-99)
[2017-05-11] MEDS: INSULIN REGULAR 100 UNIT in SODIUM CHLORIDE 0.9% 100 ML IV SCH ×2 (03:40→15:47)
[2017-05-11 04:15] LABS: Glucose,Whole Blood 169 mg/dL (75-99)
[2017-05-11 04:22] LABS: Basophils # (A) 0.1 k/uL (0-0.2); Basophils % (A) 0 %; Eosinophils # (A) 0.3 k/uL (0-0.7); Eosinophils % (A) 2 %; HCT 26.6 % (39.0-53.0); Lymphocytes # (A) 1.3 k/uL (1.0-4.8); Lymphocytes % (A) 10 %; MCH 33.1 pg (25.0-35.0); MCHC 31.5 g/dL (31.0-37.0); MCV 105.2 fL (80.0-100.0); Macrocytosis Moderate; Mean Platelet Volume 8.9; Monocytes # (A) 0.7 k/uL (0-1.0); Monocytes % (A) 5 %; Neutrophils # (A) 10.3 k/uL (1.3-7.7); Neutrophils % (A) 80 %; Platelet Count 187 k/uL (150-450); RBC 2.53 m/uL (4.30-5.90); RDW 14.9 % (11.5-15.5); WBC 12.9 k/uL (3.8-10.6)
[2017-05-11 04:49] LABS: HGB 8.4 gm/dL (13.0-17.5)
[2017-05-11 05:15] LABS: Glucose,Whole Blood 182 mg/dL (75-99)
[2017-05-11 05:16] LABS: ABG Base Excess 5.7 mmol/L; ABG HCO3 29 mmol/L (21-25); ABG Oxygen Saturation 98.2 % (94-97); ABG PCO2 39 mmHg (35-45); ABG PH 7.49 (7.35-7.45); ABG PO2 113 mmHg (83-108); ABG TCO2 30 mmol/L (19-24)
[2017-05-11 05:21] LABS: Albumin 2.8 g/dL (3.5-5.0); Calcium 8.5 mg/dL (8.4-10.2); Potassium 3.8 mmol/L (3.5-5.1); Total Bilirubin 0.7 mg/dL (0.2-1.3); Total Protein 5.5 g/dL (6.3-8.2)
[2017-05-11 06:15] LABS: Glucose,Whole Blood 164 mg/dL (75-99)
--- NOTE | 2017-05-11 07:14 | XR ---
EXAMINATION TYPE: XR chest 1V portable DATE OF EXAM: 05/11/2017 CLINICAL HISTORY: Difficulty breathing progress study. TECHNIQUE: Single AP portable semiupright view of the chest is obtained. COMPARISON: Chest x-ray from one day earlier and older studies FINDINGS: An endotracheal tube and orogastric tube are stable in appearance. There is persistent car diomegaly and atherosclerotic aorta with bilateral central opacities consistent with edema and/or inf iltrates. Small left pleural effusion is not excluded. No pneumothorax is seen bilaterally. Osseous s tructures are intact. IMPRESSION: Overall stable findings, mild cardiomegaly with persistent central bilateral perihilar edema and/or infiltrates. ARDS is not excluded.
[2017-05-11 07:40] LABS: Glucose,Whole Blood 183 mg/dL (75-99)
[2017-05-11] MEDS: PIPERACILLIN-TAZOBACTAM 3.375 GM in DEXTROSE/WATER 1 50ML.BAG IVPB SCH ×2 (07:43→17:03)
[2017-05-11] MEDS: ASPIRIN 81 MG PO SCH (08:14)
[2017-05-11] MEDS: CHLORHEXIDINE GLUCONATE 15 ML CUP MUCOUS MEM SCH ×2 (08:14→20:16)
[2017-05-11] MEDS: METOLAZONE 5 MG TAB PO SCH ×2 (08:14→20:16)
[2017-05-11] MEDS: PANTOPRAZOLE 40 MG/10 ML VIAL IVP SCH ×2 (08:14→20:16)
[2017-05-11 09:28] LABS: Glucose,Whole Blood 182 mg/dL (75-99)
[2017-05-11 10:22] LABS: Glucose,Whole Blood 183 mg/dL (75-99)
--- NOTE | 2017-05-11 10:26 | P.PN ---
Subjective Progress Note Date: 05/11/17 This is a 76-year-old male patient with status post carotid endarterectomy on the right and the patient is postop day #6. Note that the patient went into acute cardio pulmonary arrest postop day #2 and he was done with initially acute respiratory arrest and subsequent cardiac arrest for a total of 30 minutes during which the patient received a total of 10 mg of epinephrine and 2 A of bicarb and subsequently the patient was intubated and placed on mechanical ventilator and since then the patient has remained intubated. On today's evaluation of 05/11/2017, the patient is sedated on Diprivan at 45 mg per KG pigmented. The patient is heavily sedated. He occasionally bites the tube and he withdraws to some stimulation to his lower extremities bilaterally. Hemodynamically, the patient is on no pressors. The patient is still in pulmonary edema and his chest x-ray and the patient is currently on Lasix drip at 10 mg an hour. Urine output is more than 100 mL an hour daily basis. The urine is somewhat bloody as the patient had some bleeding related to Pradaxa intake and Pradaxa is currently off. The patient is on assist- control mode of ventilation at the rate of 26, tidal volume 500, FiO2 of 50% and a PEEP of 15. The blood gases from this morning showed a pH of 7.49, with a pCO2 of 39 and pO2 of 113. The chest x-ray still showing pulmonary edema. Minimal amount of bloody secretions from his orotracheal tube. He is synchronous with the mechanical ventilator. Breath sounds are equal and symmetrical bilaterally. Echocardiogram showed an ejection fraction of less than 20%. The patient is still in acute kidney injury. Creatinine is up to 3.3 yet he is nonoliguric at this stage and nephrology is on the case. We are going to continue the Lasix drip at the same rate for now. The patient is being controlled with an insulin drip in regards to his blood sugar. The patient has not been given any sedation holiday since his cardiac/pulmonary arrest. The patient is on tube feeds and receding vital high protein at the rate of 60 mL an hour. Otherwise, no other significant events overnight. The CAT scan of the brain that was obtained on showed no acute abnormalities are then chronic cerebral atrophy. The patient has a hematoma over the right neck area which is currently stable and soft and the incision site is clean. Objective - Vital Signs Vital signs: Vital Signs Temp 98.6 F 05/11/17 08:00 Pulse 73 05/11/17 09:22 Resp 26 H 05/11/17 09:00 BP 112/53 05/11/17 01:00 Pulse Ox 97 05/11/17 09:00 Intake & Output 05/10/17 05/11/17 05/11/17 18:59 06:59 18:59 Intake Total 2800.371 4809.412 265.049 Output Total 845 1175 230 Balance 776.596 3014.412 35.049 Intake: IV 445.0 2320 62.5 Furosemide 250 mg In 110 90 10 Sodium Chloride 0.9% 225 ml @ 10 MG/HR 10 mls/hr IVP .Q24H JOSÉ MIGUEL Rx#: [id number] KVO 260 2230 40 Piperacillin-Tazobactam 3 75.0 12.5 .375 gm In Dextrose/Water 1 50ml.bag @ 12.5 mls/hr IVPB Q8HR JOSÉ MIGUEL Rx#: [id number] Intake, IV Titration 488.973 376.412 52.549 Amount Furosemide 250 mg In 215.667 Sodium Chloride 0.9% 225 ml @ 10 MG/HR 10 mls/hr IVP .Q24H JOSÉ MIGUEL Rx#: [id number] Insulin Regular 100 unit 68.566 82.742 36.633 In Sodium Chloride 0.9% 100 ml @ Per Protocol IV .Q0M JOSÉ MIGUEL Rx#:[id number] Norepinephrin 16 mg-0.9% 12.907 Ns Pmx 16 mg In 250 ml @ Titrate IV .Q0M JOSÉ MIGUEL Rx#: [id number] Propofol 1,000 mg In 191.833 293.67 15.916 Empty Bag 1 bag @ Titrate IV .Q0M JOSÉ MIGUEL Rx#: [id number] Tube Feeding 735 300 120 Other 90 30 Output: Urine 845 1175 230 Other: Voiding Method Indwelling Catheter Indwelling Catheter Indwelling Catheter ABP, PAP, CO, CI - Last Documented Arterial Blood Pressure 132/51 - Exam No acute distress, sedated, with an orally placed endotracheal tube and NG tube. The patient is laying comfortably in bed and he is morbidly obese. He is quite sedated with Diprivan. He is calm and comfortable. No agitation. HEENT examination is grossly unremarkable. Mucous membranes are moist. No oral lesions. A hematoma can be visualized all over the neck area, APPLYING mainly the right neck area and the incision site is clean. The hematoma itself is soft and non-enlarging at this point. Neck supple. Full range of motion. No adenopathy thyromegaly or neck vein distention. There is tremendous bruising and ecchymoses about the neck from the recent surgery. It's more right than left-sided. There hematoma is stable for now. Cardiovascular examination reveals regular rhythm rate. S1-S2 normal. No S3 or S4. No discernible murmur noted. Heart sounds are distant. Lungs reveal diffuse bilateral rhonchi. Breath sounds are diminished. Some bibasilar crackles. No wheezes. Abdomen soft bowel sounds are heard. No masses or tenderness. Extremities are intact. No cyanosis clubbing or edema. Skin is without rash or lesion. Neurologic examination could not be adequately performed. The patient is sedated. Pupils are about 4 mm inside and they're reactive to light. There is no nystagmus. With also some stimulation to the lower extremities bilaterally beginning his toes. No Babinski. No clonus. - Labs CBC & Chem 7: 05/11/17 04:15 05/11/17 04:15 Labs: Abnormal Lab Results - Last 24 Hours (Table) 05/10/17 05/10/17 05/10/17 Range/Units 11:00 12:14 13:46 WBC (3.8-10.6) k/uL RBC (4.30-5.90) m/uL Hgb (13.0-17.5) gm/dL Hct (39.0-53.0) % MCV (80.0-100.0) fL Neutrophils # (1.3-7.7) k/uL ABG pH (7.35-7.45) ABG pO2 (83-108) mmHg ABG HCO3 (21-25) mmol/L ABG Total CO2 (19-24) mmol/L ABG O2 Saturation (94-97) % BUN (9-20) mg/dL Creatinine (0.66-1.25) mg/dL Glucose (74-99) mg/dL POC Glucose (mg/dL) 212 H 205 H 197 H (75-99) mg/dL AST (17-59) U/L Total Protein (6.3-8.2) g/dL Albumin (3.5-5.0) g/dL 05/10/17 05/10/17 05/10/17 Range/Units 14:40 16:39 17:59 WBC (3.8-10.6) k/uL RBC (4.30-5.90) m/uL Hgb (13.0-17.5) gm/dL Hct (39.0-53.0) % MCV (80.0-100.0) fL Neutrophils # (1.3-7.7) k/uL ABG pH (7.35-7.45) ABG pO2 (83-108) mmHg ABG HCO3 (21-25) mmol/L ABG Total CO2 (19-24) mmol/L ABG O2 Saturation (94-97) % BUN (9-20) mg/dL Creatinine (0.66-1.25) mg/dL Glucose (74-99) mg/dL POC Glucose (mg/dL) 216 H 196 H 183 H (75-99) mg/dL AST (17-59) U/L Total Protein (6.3-8.2) g/dL Albumin (3.5-5.0) g/dL 05/10/17 05/10/17 05/10/17 Range/Units 19:35 20:03 20:57 WBC (3.8-10.6) k/uL RBC (4.30-5.90) m/uL Hgb (13.0-17.5) gm/dL Hct (39.0-53.0) % MCV (80.0-100.0) fL Neutrophils # (1.3-7.7) k/uL ABG pH (7.35-7.45) ABG pO2 (83-108) mmHg ABG HCO3 (21-25) mmol/L ABG Total CO2 (19-24) mmol/L ABG O2 Saturation (94-97) % BUN (9-20) mg/dL Creatinine (0.66-1.25) mg/dL Glucose (74-99) mg/dL POC Glucose (mg/dL) 205 H 187 H 191 H (75-99) mg/dL AST (17-59) U/L Total Protein (6.3-8.2) g/dL Albumin (3.5-5.0) g/dL 05/10/17 05/10/17 05/10/17 Range/Units 21:54 22:59 23:26 WBC (3.8-10.6) k/uL RBC (4.30-5.90) m/uL Hgb (13.0-17.5) gm/dL Hct (39.0-53.0) % MCV (80.0-100.0) fL Neutrophils # (1.3-7.7) k/uL ABG pH (7.35-7.45) ABG pO2 (83-108) mmHg ABG HCO3 (21-25) mmol/L ABG Total CO2 (19-24) mmol/L ABG O2 Saturation (94-97) % BUN (9-20) mg/dL Creatinine (0.66-1.25) mg/dL Glucose (74-99) mg/dL POC Glucose (mg/dL) 179 H 153 H 168 H (75-99) mg/dL AST (17-59) U/L Total Protein (6.3-8.2) g/dL Albumin (3.5-5.0) g/dL 05/10/17 05/11/17 05/11/17 Range/Units 23:58 01:02 02:23 WBC (3.8-10.6) k/uL RBC (4.30-5.90) m/uL Hgb (13.0-17.5) gm/dL Hct (39.0-53.0) % MCV (80.0-100.0) fL Neutrophils # (1.3-7.7) k/uL ABG pH 7.49 H (7.35-7.45) ABG pO2 (83-108) mmHg ABG HCO3 28 H (21-25) mmol/L ABG Total CO2 30 H (19-24) mmol/L ABG O2 Saturation 97.5 H (94-97) % BUN (9-20) mg/dL Creatinine (0.66-1.25) mg/dL Glucose (74-99) mg/dL POC Glucose (mg/dL) 174 H 186 H (75-99) mg/dL AST (17-59) U/L Total Protein (6.3-8.2) g/dL Albumin (3.5-5.0) g/dL 05/11/17 05/11/17 05/11/17 Range/Units 03:10 04:12 04:15 WBC 12.9 H (3.8-10.6) k/uL RBC 2.53 L (4.30-5.90) m/uL Hgb 8.4 L D (13.0-17.5) gm/dL Hct 26.6 L (39.0-53.0) % MCV 105.2 H (80.0-100.0) fL Neutrophils # 10.3 H (1.3-7.7) k/uL ABG pH (7.35-7.45) ABG pO2 (83-108) mmHg ABG HCO3 (21-25) mmol/L ABG Total CO2 (19-24) mmol/L ABG O2 Saturation (94-97) % BUN (9-20) mg/dL Creatinine (0.66-1.25) mg/dL Glucose (74-99) mg/dL POC Glucose (mg/dL) 172 H 169 H (75-99) mg/dL AST (17-59) U/L Total Protein (6.3-8.2) g/dL Albumin (3.5-5.0) g/dL 05/11/17 05/11/17 05/11/17 Range/Units 04:15 05:13 05:14 WBC (3.8-10.6) k/uL RBC (4.30-5.90) m/uL Hgb (13.0-17.5) gm/dL Hct (39.0-53.0) % MCV (80.0-100.0) fL Neutrophils # (1.3-7.7) k/uL ABG pH 7.49 H (7.35-7.45) ABG pO2 113 H (83-108) mmHg ABG HCO3 29 H (21-25) mmol/L ABG Total CO2 30 H (19-24) mmol/L ABG O2 Saturation 98.2 H (94-97) % BUN 80 H* (9-20) mg/dL Creatinine 3.30 H (0.66-1.25) mg/dL Glucose 154 H (74-99) mg/dL POC Glucose (mg/dL) 182 H (75-99) mg/dL AST 94 H (17-59) U/L Total Protein 5.5 L (6.3-8.2) g/dL Albumin 2.8 L (3.5-5.0) g/dL 05/11/17 05/11/17 05/11/17 Range/Units 06:14 07:38 09:26 WBC (3.8-10.6) k/uL RBC (4.30-5.90) m/uL Hgb (13.0-17.5) gm/dL Hct (39.0-53.0) % MCV (80.0-100.0) fL Neutrophils # (1.3-7.7) k/uL ABG pH (7.35-7.45) ABG pO2 (83-108) mmHg ABG HCO3 (21-25) mmol/L ABG Total CO2 (19-24) mmol/L ABG O2 Saturation (94-97) % BUN (9-20) mg/dL Creatinine (0.66-1.25) mg/dL Glucose (74-99) mg/dL POC Glucose (mg/dL) 164 H 183 H 182 H (75-99) mg/dL AST (17-59) U/L Total Protein (6.3-8.2) g/dL Albumin (3.5-5.0) g/dL Microbiology - Last 24 Hours (Table) 05/09/17 04:18 Gram Stain - Final Sputum Sputum Culture - Final 05/09/17 09:12 Blood Culture - Preliminary Blood No Growth after 24 hours Assessment and Plan Plan: Assessment 1 right carotid endarterectomy and the patient is postop day #6 2 acute cardio pulmonary arrest. This is most like an acute pulmonary edema for by cardiac arrest and the patient had a downtime of at least 25 minutes. He received a total of 10mgrams epinephrine and bicarb currently intubated on a mechanical ventilator. 3 CHF with an ejection fraction of less than 20% 4 suspected acute non-STEMI with ST segment depression and some mild troponin leak that peaked at 2.8 with underlying history of coronary artery disease 5 acute kidney injury, rule out ATN related to prolonged car to pulmonary arrest and the patient is nonoliguric at this point 6 acute respiratory failure secondary to above 7 diabetes mellitus currently on insulin drip for blood sugar control 8 possible hypoxic/anoxic encephalopathy secondary to above-mentioned comorbidities and complications 9 obstructive sleep apnea 10 hypertension 11 hyperlipidemia 12 morbid obesity 13 gout 14 hematoma over the neck especially over the right anterior neck area with a clean incision, postsurgical To get further by the intake of anticoagulants 15 mild hematuria Plan Sedation holiday. Keep the patient off Diprivan and assess the patient's mentation. May restart the prevent if there is significant agitation and a second with a mechanical ventilator. Drop the PEEP down to 12. Continue with Lasix drip at 10 mg an hour. Continue Zaroxolyn. Repeat chest x-ray in the morning. May need to The PEEP Further Once the Patient's CHF Is Further Optimized. Continue Tube Feeds. Neurology Consultation. Recheck Coags. We' ll Continue to Follow. Condition Is Critical and the Patient's Family Has Been Updated on the Condition. Critically Care Evaluation, 35 Minutes. Time with Patient: Greater than 30
--- NOTE | 2017-05-11 11:53 | CDI ---
Last Revision, February 2017 Documentation Clarification Form Date: 05/11/2017 11:32:00 AM From: Nguyen Glass Admit Date: 05/06/2017 11:59:00 AM Patient Name: Mo Mitchell Visit Number: [id number] Discharge Date: ATTENTION: The Clinical Documentation Specialists (CDI) and [facility] Coding Staff appreciate your assistance in clarifying documentation. Please respond to the clarification below the line at the bottom and electronically sign. The CDI & [facility] Coding staff will review the response and follow-up if needed. Please note: Queries are made part of the Legal Health Record. If you have any questions, please contact the author of this message via ITS. Dr. Jamal Tamez: 76 yo male is POD #6 status post an elective right carotid endarterectomy with patch angioplasty for severe bilateral carotid artery stenosis > on right. Clinical Indicators: Postoperatively on 05/08, patient went into cardiopulmonary arrest, resuscitated & is currently intubated on vent. Current VS: P 80 (weak), R 26 (tachypnea on vent), BP 171/59, PO 97 (on vent, FiO2 50%). Echocardiogram Results 05/09: EF <20%, Trace-mild MR, Trace TR, mild pulmonary hypertension. LAB: [facility] on 05/08 1.140, 0.710 Chest X Ray: 05/08: Correlate for pulmonary edema. Repeat CXR 05/08: Mod severe pulmonary edema. 05/09 CXR: Mod severe pulmonary edema, unchanged. 05/10 CXR: Improving. Treatment: Intubated/vented late 05/08, IV Insulin, IV Lasix, IV Zosyn. In your professional opinion, can you please clarify the acuity and type of CHF if known? Systolic Heart Failure: o Acute o Chronic o Acute on Chronic Diastolic Heart Failure: o Acute o Chronic o Acute on Chronic Systolic and Diastolic Heart Failure o Acute o Chronic o Acute on Chronic Heart Failure Unable to Determine Other, please specify Please continue to document in your progress notes and discharge summary in order to capture severity of illness and risk of mortality. Include clinical findings that support your diagnosis. MTDD
[2017-05-11] MEDS: FUROSEMIDE 250 MG in SODIUM CHLORIDE 0.9% 225 ML IVP SCH (12:01)
[2017-05-11 12:05] LABS: Glucose,Whole Blood 171 mg/dL (75-99)
[2017-05-11 12:46] LABS: INR 1.5 (<1.2); Prothrombin Time 14.2 sec (9.0-12.0)
[2017-05-11 12:54] LABS: Glucose,Whole Blood 194 mg/dL (75-99)
[2017-05-11 14:16] LABS: Glucose,Whole Blood 204 mg/dL (75-99)
--- NOTE | 2017-05-11 14:31 | P.PN ---
Subjective Progress Note Date: 05/11/17 Principal diagnosis: Hemodynamically severe right internal carotid artery stenosis. Previous medical history of hypertension, gout, hyperlipidemia, diabetes, insomnia, atrial fibrillation with ablation, coronary artery disease, obstructive sleep apnea with CPAP use. POD #5 elective right carotid endarterectomy with patch angioplasty. Status post cardiopulmonary arrest with resuscitation, suspect non-STEMI. Acute systolic heart failure with an ejection fraction less than 20%. Acute kidney injury likely secondary to cardiac arrest with 30 minute down time. Patient's currently laying in bed in no acute distress, remains on mechanical ventilation. Objective - Vital Signs Vital signs: Vital Signs Temp 97.7 F 05/11/17 12:00 Pulse 71 05/11/17 13:00 Resp 26 H 05/11/17 13:00 BP 112/53 05/11/17 01:00 Pulse Ox 98 05/11/17 13:00 Intake & Output 05/10/17 05/11/17 05/11/17 18:59 06:59 18:59 Intake Total 2201.652 6724.412 1103.008 Output Total 845 1175 955 Balance 226.760 9256.412 148.008 Weight 143.1 kg Intake: IV 445.0 2320 207.5 Furosemide 250 mg In 110 90 50 Sodium Chloride 0.9% 225 ml @ 10 MG/HR 10 mls/hr IVP .Q24H [facility] Rx#: [id number] KVO 260 2230 120 Piperacillin-Tazobactam 3 75.0 37.5 .375 gm In Dextrose/Water 1 50ml.bag @ 12.5 mls/hr IVPB Q8HR [facility] Rx#: [id number] Intake, IV Titration 488.973 376.412 415.508 Amount Furosemide 250 mg In 215.667 250 Sodium Chloride 0.9% 225 ml @ 10 MG/HR 10 mls/hr IVP .Q24H [facility] Rx#: [id number] Insulin Regular 100 unit 68.566 82.742 65.508 In Sodium Chloride 0.9% 100 ml @ Per Protocol IV .Q0M [facility] Rx#:[id number] Norepinephrin 16 mg-0.9% 12.907 Ns Pmx 16 mg In 250 ml @ Titrate IV .Q0M [facility] Rx#: [id number] Propofol 1,000 mg In 191.833 293.67 100.000 Empty Bag 1 bag @ Titrate IV .Q0M [facility] Rx#: [id number] Tube Feeding 735 300 420 Other 90 60 Output: Urine 845 1175 955 Other: Voiding Method Indwelling Catheter Indwelling Catheter Indwelling Catheter ABP, PAP, CO, CI - Last Documented Arterial Blood Pressure 110/48 - Constitutional General appearance: Present: morbidly obese, no acute distress - Respiratory Details: Lungs sounds diminished, coarse bilaterally. Respirations even, nonlabored on mechanical ventilation. Current settings assist control mode, FiO2 50%, tidal volume 500, respiratory rate 26, PEEP 15. 7.5 ET tube,23 @ the lip. - Cardiovascular Details: S1, S2 present. Regular rate and rhythm, sinus rhythm on telemetry. Palpable peripheral pulses bilaterally. Generalized edema present. No calf pain or tenderness noted. Antiembolism stockings, SCDs present. Left radial arterial line, right femoral central line present. - Gastrointestinal Gastrointestinal Comment(s): Abdomen soft, nondistended, very round. Hypoactive bowel sounds present 4 quadrants. OG tube present, tube feeding infusing at 60 mL per hour with minimal residual per nursing. - Genitourinary Genitourinary Comment(s): Boothe present draining bloody urine. Output is 75-200 mL/h overnight. - Integumentary Integumentary Comment(s): Skin is warm and dry with multiple areas of ecchymosis. Right neck incision well approximated, the neck is somewhat swollen and very ecchymotic. - Neurologic Neurologic Comment(s): Withdraws to painful stimuli. Currently sedated on propofol. - Allied health notes Allied health notes reviewed: nursing - Labs CBC & Chem 7: 05/11/17 04:15 05/11/17 04:15 Labs: Abnormal Lab Results - Last 24 Hours (Table) 05/10/17 05/10/17 05/10/17 Range/Units 14:40 16:39 17:59 WBC (3.8-10.6) k/uL RBC (4.30-5.90) m/uL Hgb (13.0-17.5) gm/dL Hct (39.0-53.0) % MCV (80.0-100.0) fL Neutrophils # (1.3-7.7) k/uL PT (9.0-12.0) sec INR (<1.2) ABG pH (7.35-7.45) ABG pO2 (83-108) mmHg ABG HCO3 (21-25) mmol/L ABG Total CO2 (19-24) mmol/L ABG O2 Saturation (94-97) % BUN (9-20) mg/dL Creatinine (0.66-1.25) mg/dL Glucose (74-99) mg/dL POC Glucose (mg/dL) 216 H 196 H 183 H (75-99) mg/dL AST (17-59) U/L Total Protein (6.3-8.2) g/dL Albumin (3.5-5.0) g/dL 05/10/17 05/10/17 05/10/17 Range/Units 19:35 20:03 20:57 WBC (3.8-10.6) k/uL RBC (4.30-5.90) m/uL Hgb (13.0-17.5) gm/dL Hct (39.0-53.0) % MCV (80.0-100.0) fL Neutrophils # (1.3-7.7) k/uL PT (9.0-12.0) sec INR (<1.2) ABG pH (7.35-7.45) ABG pO2 (83-108) mmHg ABG HCO3 (21-25) mmol/L ABG Total CO2 (19-24) mmol/L ABG O2 Saturation (94-97) % BUN (9-20) mg/dL Creatinine (0.66-1.25) mg/dL Glucose (74-99) mg/dL POC Glucose (mg/dL) 205 H 187 H 191 H (75-99) mg/dL AST (17-59) U/L Total Protein (6.3-8.2) g/dL Albumin (3.5-5.0) g/dL 05/10/17 05/10/17 05/10/17 Range/Units 21:54 22:59 23:26 WBC (3.8-10.6) k/uL RBC (4.30-5.90) m/uL Hgb (13.0-17.5) gm/dL Hct (39.0-53.0) % MCV (80.0-100.0) fL Neutrophils # (1.3-7.7) k/uL PT (9.0-12.0) sec INR (<1.2) ABG pH (7.35-7.45) ABG pO2 (83-108) mmHg ABG HCO3 (21-25) mmol/L ABG Total CO2 (19-24) mmol/L ABG O2 Saturation (94-97) % BUN (9-20) mg/dL Creatinine (0.66-1.25) mg/dL Glucose (74-99) mg/dL POC Glucose (mg/dL) 179 H 153 H 168 H (75-99) mg/dL AST (17-59) U/L Total Protein (6.3-8.2) g/dL Albumin (3.5-5.0) g/dL 05/10/17 05/11/17 05/11/17 Range/Units 23:58 01:02 02:23 WBC (3.8-10.6) k/uL RBC (4.30-5.90) m/uL Hgb (13.0-17.5) gm/dL Hct (39.0-53.0) % MCV (80.0-100.0) fL Neutrophils # (1.3-7.7) k/uL PT (9.0-12.0) sec INR (<1.2) ABG pH 7.49 H (7.35-7.45) ABG pO2 (83-108) mmHg ABG HCO3 28 H (21-25) mmol/L ABG Total CO2 30 H (19-24) mmol/L ABG O2 Saturation 97.5 H (94-97) % BUN (9-20) mg/dL Creatinine (0.66-1.25) mg/dL Glucose (74-99) mg/dL POC Glucose (mg/dL) 174 H 186 H (75-99) mg/dL AST (17-59) U/L Total Protein (6.3-8.2) g/dL Albumin (3.5-5.0) g/dL 05/11/17 05/11/17 05/11/17 Range/Units 03:10 04:12 04:15 WBC 12.9 H (3.8-10.6) k/uL RBC 2.53 L (4.30-5.90) m/uL Hgb 8.4 L D (13.0-17.5) gm/dL Hct 26.6 L (39.0-53.0) % MCV 105.2 H (80.0-100.0) fL Neutrophils # 10.3 H (1.3-7.7) k/uL PT (9.0-12.0) sec INR (<1.2) ABG pH (7.35-7.45) ABG pO2 (83-108) mmHg ABG HCO3 (21-25) mmol/L ABG Total CO2 (19-24) mmol/L ABG O2 Saturation (94-97) % BUN (9-20) mg/dL Creatinine (0.66-1.25) mg/dL Glucose (74-99) mg/dL POC Glucose (mg/dL) 172 H 169 H (75-99) mg/dL AST (17-59) U/L Total Protein (6.3-8.2) g/dL Albumin (3.5-5.0) g/dL 05/11/17 05/11/17 05/11/17 Range/Units 04:15 05:13 05:14 WBC (3.8-10.6) k/uL RBC (4.30-5.90) m/uL Hgb (13.0-17.5) gm/dL Hct (39.0-53.0) % MCV (80.0-100.0) fL Neutrophils # (1.3-7.7) k/uL PT (9.0-12.0) sec INR (<1.2) ABG pH 7.49 H (7.35-7.45) ABG pO2 113 H (83-108) mmHg ABG HCO3 29 H (21-25) mmol/L ABG Total CO2 30 H (19-24) mmol/L ABG O2 Saturation 98.2 H (94-97) % BUN 80 H* (9-20) mg/dL Creatinine 3.30 H (0.66-1.25) mg/dL Glucose 154 H (74-99) mg/dL POC Glucose (mg/dL) 182 H (75-99) mg/dL AST 94 H (17-59) U/L Total Protein 5.5 L (6.3-8.2) g/dL Albumin 2.8 L (3.5-5.0) g/dL 05/11/17 05/11/17 05/11/17 Range/Units 06:14 07:38 09:26 WBC (3.8-10.6) k/uL RBC (4.30-5.90) m/uL Hgb (13.0-17.5) gm/dL Hct (39.0-53.0) % MCV (80.0-100.0) fL Neutrophils # (1.3-7.7) k/uL PT (9.0-12.0) sec INR (<1.2) ABG pH (7.35-7.45) ABG pO2 (83-108) mmHg ABG HCO3 (21-25) mmol/L ABG Total CO2 (19-24) mmol/L ABG O2 Saturation (94-97) % BUN (9-20) mg/dL Creatinine (0.66-1.25) mg/dL Glucose (74-99) mg/dL POC Glucose (mg/dL) 164 H 183 H 182 H (75-99) mg/dL AST (17-59) U/L Total Protein (6.3-8.2) g/dL Albumin (3.5-5.0) g/dL 05/11/17 05/11/17 05/11/17 Range/Units 10:20 12:03 12:30 WBC (3.8-10.6) k/uL RBC (4.30-5.90) m/uL Hgb (13.0-17.5) gm/dL Hct (39.0-53.0) % MCV (80.0-100.0) fL Neutrophils # (1.3-7.7) k/uL PT 14.2 H (9.0-12.0) sec INR 1.5 H (<1.2) ABG pH (7.35-7.45) ABG pO2 (83-108) mmHg ABG HCO3 (21-25) mmol/L ABG Total CO2 (19-24) mmol/L ABG O2 Saturation (94-97) % BUN (9-20) mg/dL Creatinine (0.66-1.25) mg/dL Glucose (74-99) mg/dL POC Glucose (mg/dL) 183 H 171 H (75-99) mg/dL AST (17-59) U/L Total Protein (6.3-8.2) g/dL Albumin (3.5-5.0) g/dL 05/11/17 Range/Units 12:53 WBC (3.8-10.6) k/uL RBC (4.30-5.90) m/uL Hgb (13.0-17.5) gm/dL Hct (39.0-53.0) % MCV (80.0-100.0) fL Neutrophils # (1.3-7.7) k/uL PT (9.0-12.0) sec INR (<1.2) ABG pH (7.35-7.45) ABG pO2 (83-108) mmHg ABG HCO3 (21-25) mmol/L ABG Total CO2 (19-24) mmol/L ABG O2 Saturation (94-97) % BUN (9-20) mg/dL Creatinine (0.66-1.25) mg/dL Glucose (74-99) mg/dL POC Glucose (mg/dL) 194 H (75-99) mg/dL AST (17-59) U/L Total Protein (6.3-8.2) g/dL Albumin (3.5-5.0) g/dL Microbiology - Last 24 Hours (Table) 05/09/17 09:12 Blood Culture - Preliminary Blood No Growth after 48 hours 05/09/17 04:18 Gram Stain - Final Sputum Sputum Culture - Final - Imaging and Cardiology Chest x-ray: report reviewed, image reviewed Assessment and Plan (1) Cardiopulmonary arrest with successful resuscitation Current Visit: Yes Status: Acute Code(s): I46.9 - CARDIAC ARREST, CAUSE UNSPECIFIED SNOMED Code(s): 892911935 (2) Diabetes mellitus type 2 in obese Current Visit: Yes Status: Chronic Code(s): E11.69 - TYPE 2 DIABETES MELLITUS WITH OTHER SPECIFIED COMPLICATION; E66.9 - OBESITY, UNSPECIFIED SNOMED Code(s): 35332758 (3) GERD (gastroesophageal reflux disease) Current Visit: Yes Status: Chronic Code(s): K21.9 - GASTRO-ESOPHAGEAL REFLUX DISEASE WITHOUT ESOPHAGITIS SNOMED Code(s): 375142192 (4) Gout Current Visit: Yes Status: Chronic Code(s): M10.9 - GOUT, UNSPECIFIED SNOMED Code(s): 70405083 (5) History of coronary artery disease Current Visit: Yes Status: Chronic Code(s): Z86.79 - PERSONAL HISTORY OF OTHER DISEASES OF THE CIRCULATORY SYSTEM SNOMED Code(s): 944690837 (6) Hyperlipidemia Current Visit: Yes Status: Chronic Code(s): E78.5 - HYPERLIPIDEMIA, UNSPECIFIED SNOMED Code(s): 92230939 (7) Hypertension Current Visit: Yes Status: Chronic Code(s): I10 - ESSENTIAL (PRIMARY) HYPERTENSION SNOMED Code(s): 54980960 (8) Morbid obesity Current Visit: Yes Status: Chronic Code(s): E66.01 - MORBID (SEVERE) OBESITY DUE TO EXCESS CALORIES SNOMED Code(s): 537215491 (9) Obstructive sleep apnea Current Visit: Yes Status: Chronic Code(s): G47.33 - OBSTRUCTIVE SLEEP APNEA (ADULT) (PEDIATRIC) SNOMED Code(s): 98456444 (10) Paroxysmal atrial fibrillation Current Visit: Yes Status: Chronic Code(s): I48.0 - PAROXYSMAL ATRIAL FIBRILLATION SNOMED Code(s): 413874775 (11) Stenosis of right carotid artery Current Visit: Yes Status: Chronic Code(s): I65.21 - OCCLUSION AND STENOSIS OF RIGHT CAROTID ARTERY SNOMED Code(s): 270228819011735 Plan: 1. Continue current medical management per primary care service. 2. Cardiology management for post myocardial infarction, cardiopulmonary arrest. 3. Ventilator management per pulmonology. 4. GI/DVT prophylaxis. 5. Will continue to monitor daily labs and x-rays. 6. Maintain stable blood pressure. 7. Patient's condition remains guarded. 8. Will change dressing on right carotid endarterectomy site, will continue to monitor. Time with Patient: Greater than 30
--- NOTE | 2017-05-11 14:41 | P.PN ---
Subjective Progress Note Date: 05/11/17 76-year-old male who underwent elective right carotid endarterectomy with patch angioplasty on 05/06/[address] Mckenzie was consulted for medical management. The patient has a history of bilateral carotid stenosis, atrial fibrillation, coronary disease, diabetes mellitus, gastroesophageal reflux disease, hyperlipidemia, hypertension, osteoarthritis, and sleep apnea. 05/07/2017 The patient was seen and examined in the intensive care unit on rounds Dr. Mckenzie. The patient is sitting up in the chair. Family is at the bedside. The patient remains on a nitro drip at 60 mcg/min. Systolic blood pressures ranging in the 140s. The patient is complaining of pain at the surgical site. Dressing is in place. Swelling is noted near surgical site. Patient denies shortness of breath or coughing. Denies chest pain or pressure. Denies nausea or vomiting. States he is tolerating PO intake well without nausea or vomiting. 05/08/2017 Patient remains in intensive care unit. He is postop day #2 right carotid endarterectomy. The patient is sitting up in the chair. the patient's nitro drip has been weaned off. He was started on Norvasc 10 mg daily yesterday along with hydralazine 50 mg by mouth 3 times a day. Patients blood sugars remain elevated in the 200s. Patient utilizes an insulin pump at home. Patient 's insulin pump is currently not with him as it was empty and patient's was going to bring his insulin pump back to the hospital after she refilled it. patient remains on 6 L nasal cannula with oxygen saturations greater than 92%. He denies shortness of breath. Denies chest pain or pressure. Tolerating by mouth intake without nausea or vomiting. WBC 13.2. Hemoglobin 10.6. BUN 38. Creatinine 1.40. 05/09/2017-Notes per Dr. Mckenzie 05/10/2017-Notes per Dr. Mckenzie 05/11/2017 Patient seen and examined at the bedside on rounds with Dr. Corona. Patient went into cardiac arrest on 05/08/2017 and was successfully resuscitated after approximately 20 minutes of CPR. Patient remains intubated in the intensive care unit on mechanical ventilation. Patient is currently on IV propofol secondary to patient biting on his ET tube and bucking the ventilator. Sedation holiday has not been performed per nursing secondary to hemodynamic instability. Patient remains on 50% FiO2. Patient has required vasopressor secondary to hypotension. Levophed is currently off this morning. Chest x-ray this morning reveals mild cardio megaly with persistent central bilateral perihilar edema and/or infiltrates. ARDS is not excluded. Patient remains on Lasix drip. Patient also remains on insulin drip. Creatinine this morning is 3.30. Nephrology is on consult. Patient underwent CT of the brain which was negative for an acute process. Objective - Vital Signs Vital signs: Vital Signs Temp 98.6 F 05/11/17 08:00 Pulse 74 05/11/17 12:25 Resp 26 H 05/11/17 11:00 BP 112/53 05/11/17 01:00 Pulse Ox 97 05/11/17 11:00 Intake & Output 05/10/17 05/11/17 05/11/17 18:59 06:59 18:59 Intake Total 1492.448 5519.412 886.758 Output Total 845 1175 560 Balance 244.718 9130.412 326.758 Intake: IV 445.0 2320 147.5 Furosemide 250 mg In 110 90 30 Sodium Chloride 0.9% 225 ml @ 10 MG/HR 10 mls/hr IVP .Q24H [facility] Rx#: [id number] KVO 260 2230 80 Piperacillin-Tazobactam 3 75.0 37.5 .375 gm In Dextrose/Water 1 50ml.bag @ 12.5 mls/hr IVPB Q8HR [facility] Rx#: [id number] Intake, IV Titration 488.973 376.412 409.258 Amount Furosemide 250 mg In 215.667 250 Sodium Chloride 0.9% 225 ml @ 10 MG/HR 10 mls/hr IVP .Q24H [facility] Rx#: [id number] Insulin Regular 100 unit 68.566 82.742 59.258 In Sodium Chloride 0.9% 100 ml @ Per Protocol IV .Q0M [facility] Rx#:[id number] Norepinephrin 16 mg-0.9% 12.907 Ns Pmx 16 mg In 250 ml @ Titrate IV .Q0M [facility] Rx#: [id number] Propofol 1,000 mg In 191.833 293.67 100.000 Empty Bag 1 bag @ Titrate IV .Q0M [facility] Rx#: [id number] Tube Feeding 735 300 300 Other 90 30 Output: Urine 845 1175 560 Other: Voiding Method Indwelling Catheter Indwelling Catheter Indwelling Catheter ABP, PAP, CO, CI - Last Documented Arterial Blood Pressure 171/59 - Exam GENERAL: This is a 76-year-old male who remains sedated on mechanical ventilation in the intensive care unit. HEENT: ET tube noted. Head is atraumatic, normocephalic. Pupils are equal, round, and reactive to light. Sclerae anicteric. Conjunctivae are clear. Mucus membranes of the mouth are moist. Neck is supple. RESPIRATORY: ET tube noted. Diminished with rhonchi throughout. Patient maintaining oxygen saturation greater than 92% on mechanical ventilation with 50 % FiO2. No chest wall tenderness is noted on palpation or with deep breathing. CARDIOVASCULAR: Regular rate and rhythm. S1 and S2 noted. No systolic or diastolic murmur auscultated. No JVD noted. No S3 or S4 noted. GASTROINTESTINAL: No distention noted. Abdomen soft and round. Normal active bowel sounds auscultated x 4 quadrants. No pain or tenderness noted upon palpation. INTEGUMENTARY: Dressing noted to right neck. No drainage noted. Clean dry and intact. Swelling noted around surgical area. No cyanosis. No jaundice. EXTREMITIES: 2+ peripheral pulses. No evidence of peripheral edema. No calf tenderness noted. NEUROLOGIC: Unable to assess secondary to continuous sedation and mechanical ventilation PSYCHIATRIC: Unable to assess secondary to continuous sedation and mechanical ventilation - Labs CBC & Chem 7: 05/11/17 04:15 05/11/17 04:15 Labs: Abnormal Lab Results - Last 24 Hours (Table) 05/10/17 05/10/17 05/10/17 Range/Units 13:46 14:40 16:39 WBC (3.8-10.6) k/uL RBC (4.30-5.90) m/uL Hgb (13.0-17.5) gm/dL Hct (39.0-53.0) % MCV (80.0-100.0) fL Neutrophils # (1.3-7.7) k/uL ABG pH (7.35-7.45) ABG pO2 (83-108) mmHg ABG HCO3 (21-25) mmol/L ABG Total CO2 (19-24) mmol/L ABG O2 Saturation (94-97) % BUN (9-20) mg/dL Creatinine (0.66-1.25) mg/dL Glucose (74-99) mg/dL POC Glucose (mg/dL) 197 H 216 H 196 H (75-99) mg/dL AST (17-59) U/L Total Protein (6.3-8.2) g/dL Albumin (3.5-5.0) g/dL 05/10/17 05/10/17 05/10/17 Range/Units 17:59 19:35 20:03 WBC (3.8-10.6) k/uL RBC (4.30-5.90) m/uL Hgb (13.0-17.5) gm/dL Hct (39.0-53.0) % MCV (80.0-100.0) fL Neutrophils # (1.3-7.7) k/uL ABG pH (7.35-7.45) ABG pO2 (83-108) mmHg ABG HCO3 (21-25) mmol/L ABG Total CO2 (19-24) mmol/L ABG O2 Saturation (94-97) % BUN (9-20) mg/dL Creatinine (0.66-1.25) mg/dL Glucose (74-99) mg/dL POC Glucose (mg/dL) 183 H 205 H 187 H (75-99) mg/dL AST (17-59) U/L Total Protein (6.3-8.2) g/dL Albumin (3.5-5.0) g/dL 05/10/17 05/10/17 05/10/17 Range/Units 20:57 21:54 22:59 WBC (3.8-10.6) k/uL RBC (4.30-5.90) m/uL Hgb (13.0-17.5) gm/dL Hct (39.0-53.0) % MCV (80.0-100.0) fL Neutrophils # (1.3-7.7) k/uL ABG pH (7.35-7.45) ABG pO2 (83-108) mmHg ABG HCO3 (21-25) mmol/L ABG Total CO2 (19-24) mmol/L ABG O2 Saturation (94-97) % BUN (9-20) mg/dL Creatinine (0.66-1.25) mg/dL Glucose (74-99) mg/dL POC Glucose (mg/dL) 191 H 179 H 153 H (75-99) mg/dL AST (17-59) U/L Total Protein (6.3-8.2) g/dL Albumin (3.5-5.0) g/dL 05/10/17 05/10/17 05/11/17 Range/Units 23:26 23:58 01:02 WBC (3.8-10.6) k/uL RBC (4.30-5.90) m/uL Hgb (13.0-17.5) gm/dL Hct (39.0-53.0) % MCV (80.0-100.0) fL Neutrophils # (1.3-7.7) k/uL ABG pH 7.49 H (7.35-7.45) ABG pO2 (83-108) mmHg ABG HCO3 28 H (21-25) mmol/L ABG Total CO2 30 H (19-24) mmol/L ABG O2 Saturation 97.5 H (94-97) % BUN (9-20) mg/dL Creatinine (0.66-1.25) mg/dL Glucose (74-99) mg/dL POC Glucose (mg/dL) 168 H 174 H (75-99) mg/dL AST (17-59) U/L Total Protein (6.3-8.2) g/dL Albumin (3.5-5.0) g/dL 05/11/17 05/11/17 05/11/17 Range/Units 02:23 03:10 04:12 WBC (3.8-10.6) k/uL RBC (4.30-5.90) m/uL Hgb (13.0-17.5) gm/dL Hct (39.0-53.0) % MCV (80.0-100.0) fL Neutrophils # (1.3-7.7) k/uL ABG pH (7.35-7.45) ABG pO2 (83-108) mmHg ABG HCO3 (21-25) mmol/L ABG Total CO2 (19-24) mmol/L ABG O2 Saturation (94-97) % BUN (9-20) mg/dL Creatinine (0.66-1.25) mg/dL Glucose (74-99) mg/dL POC Glucose (mg/dL) 186 H 172 H 169 H (75-99) mg/dL AST (17-59) U/L Total Protein (6.3-8.2) g/dL Albumin (3.5-5.0) g/dL 05/11/17 05/11/17 05/11/17 Range/Units 04:15 04:15 05:13 WBC 12.9 H (3.8-10.6) k/uL RBC 2.53 L (4.30-5.90) m/uL Hgb 8.4 L D (13.0-17.5) gm/dL Hct 26.6 L (39.0-53.0) % MCV 105.2 H (80.0-100.0) fL Neutrophils # 10.3 H (1.3-7.7) k/uL ABG pH (7.35-7.45) ABG pO2 (83-108) mmHg ABG HCO3 (21-25) mmol/L ABG Total CO2 (19-24) mmol/L ABG O2 Saturation (94-97) % BUN 80 H* (9-20) mg/dL Creatinine 3.30 H (0.66-1.25) mg/dL Glucose 154 H (74-99) mg/dL POC Glucose (mg/dL) 182 H (75-99) mg/dL AST 94 H (17-59) U/L Total Protein 5.5 L (6.3-8.2) g/dL Albumin 2.8 L (3.5-5.0) g/dL 05/11/17 05/11/17 05/11/17 Range/Units 05:14 06:14 07:38 WBC (3.8-10.6) k/uL RBC (4.30-5.90) m/uL Hgb (13.0-17.5) gm/dL Hct (39.0-53.0) % MCV (80.0-100.0) fL Neutrophils # (1.3-7.7) k/uL ABG pH 7.49 H (7.35-7.45) ABG pO2 113 H (83-108) mmHg ABG HCO3 29 H (21-25) mmol/L ABG Total CO2 30 H (19-24) mmol/L ABG O2 Saturation 98.2 H (94-97) % BUN (9-20) mg/dL Creatinine (0.66-1.25) mg/dL Glucose (74-99) mg/dL POC Glucose (mg/dL) 164 H 183 H (75-99) mg/dL AST (17-59) U/L Total Protein (6.3-8.2) g/dL Albumin (3.5-5.0) g/dL 05/11/17 05/11/17 05/11/17 Range/Units 09:26 10:20 12:03 WBC (3.8-10.6) k/uL RBC (4.30-5.90) m/uL Hgb (13.0-17.5) gm/dL Hct (39.0-53.0) % MCV (80.0-100.0) fL Neutrophils # (1.3-7.7) k/uL ABG pH (7.35-7.45) ABG pO2 (83-108) mmHg ABG HCO3 (21-25) mmol/L ABG Total CO2 (19-24) mmol/L ABG O2 Saturation (94-97) % BUN (9-20) mg/dL Creatinine (0.66-1.25) mg/dL Glucose (74-99) mg/dL POC Glucose (mg/dL) 182 H 183 H 171 H (75-99) mg/dL AST (17-59) U/L Total Protein (6.3-8.2) g/dL Albumin (3.5-5.0) g/dL Microbiology - Last 24 Hours (Table) 05/09/17 09:12 Blood Culture - Preliminary Blood No Growth after 48 hours 05/09/17 04:18 Gram Stain - Final Sputum Sputum Culture - Final Assessment and Plan Plan: ASSESSMENT: Bilateral carotid stenosis, s/p right carotid endarterectomy, POD #6 Acute cardiopulmonary arrest requiring mechanical ventilation, likely secondary to acute pulmonary edema with a downtime of at least 20 minutes Acute exacerbation of systolic congestive heart failure, ejection fraction 20% Suspected acute non-ST elevated [place] Acute kidney injury, suspect secondary to prolonged cardiopulmonary arrest Hypoxic/anoxic encephalopathy secondary to prolonged cardiopulmonary arrest Hypertension Diabetes mellitus, type II, utilizing insulin pump at home Coronary artery disease Atrial fibrillation, on retirement anticoagulation with Pradaxa Hyperlipidemia Osteoarthritis with previous multiple joint replacements Morbid obesity: BMI 42.8 PLAN: Continue ventilator management per Dr. Kimball Wean sedation as patient tolerates to assess neurological status Consult neurology Obtain EEG Continue insulin drip per protocol Nephrology on consult. Continue Lasix drip at 10 mg an hour Continue tube feedings Home meds as appropriate Monitor labs GI prophylaxis: Protonix 40mg IV BID DVT prophylaxis: CONCEPCIÓN hose and Venodyne's to bilateral lower extremities Monitor vital signs and address as appropriate Further recommendations pending patient's course Nurse practitioner note has been reviewed by physician. Signing provider agrees with the documented findings, assessment, and plan of care.
--- NOTE | 2017-05-11 15:05 | PN ---
PROGRESS NOTE Patient is seen for followup for acute kidney injury and volume overload. Currently, patient is maintained on Lasix drip. He developed significant pulmonary edema postoperatively after right carotid endarterectomy. Patient has been intubated. He also had a cardiac arrest with a down time of about 30 minutes. He is currently being diuresed and his oxygenation has improved with FiO2 going down from 100% yesterday to 50% today. Urine output is at about 80-85 mL/hour, occasionally going up to 130 and 200. Chest x-ray still shows congestive heart failure. PHYSICAL EXAMINATION: Blood pressure is 110/48, heart rate 71 per minute. Patient is sedated. Examination of the heart, S1, S2. Examination of the lungs, bilateral breath sounds are heard. Abdomen is soft, distended. Examination of the lower extremities shows no significant edema. The patient has bruising in the neck from the recent right carotid endarterectomy. LABS: Show sodium 143, potassium 3.8, chloride 105, BUN 80, serum creatinine 3.3. ASSESSMENT: 1. Acute kidney injury secondary to cardiac arrest and hypotension. Currently nonoliguric. I will continue with the Lasix drip. We can decrease it to 5 mg an hour. 2. Acute exacerbation of congestive heart failure, systolic with ejection fraction of 20%. 3. Status post cardiac arrest. 4. Status post right carotid endarterectomy. 5. Possible chronic kidney disease with previous creatinine at 1.29 mg/dL and previously 1.6 in January of 2017. UA is not available. PLAN: Decrease Lasix drip to 5 mg an hour. Check urinalysis. Check iron studies if not done and repeat labs in a.m.. MMODL / IJN: [id number] /
[2017-05-11 15:18] LABS: Appearance,Urine Turbid (Clear); Bilirubin,Urine Negative (Negative); Blood,Urine Moderate (Negative); Color,Urine Dark Red; Glucose,Urine (UA) Negative (Negative); Ketones,Urine Negative (Negative); Leukocyte Esterase,Urine Moderate (Negative); Nitrite,Urine Negative (Negative); PH, Urine 5.5 (5.0-8.0); Protein,Urine 1+ (Negative); RBC,Urine >182 /hpf (0-5); Urobilinogen,Urine <2.0 mg/dL (<2.0); WBC,Urine 66 /hpf (0-5)
[2017-05-11 15:25] LABS: Specific Gravity,Urine 1.012 (1.001-1.035)
[2017-05-11 15:41] LABS: Glucose,Whole Blood 164 mg/dL (75-99)
--- NOTE | 2017-05-11 17:02 | EEG ---
ELECTROENCEPHALOGRAM REPORT DATE OF EE05/11/2017. REFERRING PHYSICIAN: Dr. Kimball. CONSULTING PHYSICIAN: Dr. Maggy Chávez ELECTROENCEPHALOGRAPHIC EXAMINATION REPORT: INDICATION FOR EXAMINATION: This patient is a 76-year-old male, who underwent a right carotid endarterectomy two days following surgery. The patient went into full cardiac arrest with a down time of 30 minutes. The patient remains intubated on the ventilator and is currently sedated. A[age]: [age]. EEG FINDINGS: A routine 21 channel awake digital EEG recording was accomplished utilizing the 10-20 international system with bipolar and referential montages. The background activity in the most alert resting state consists of a low to medium amplitude, poorly developed and poorly sustained 4-5 Hz activity over the posterior head regions. This posterior rhythm attenuates minimally to eye opening. There is a small amount of low amplitude 18-20 Hz beta activity seen maximally over the anterior head regions. Muscle and movement artifact was observed only on a few occasions during the tracing. Hyperventilation was not performed. Photic stimulation at flash frequencies of 2-30 Hz produced a minimal occipital driving response. No epileptiform discharges were seen. IMPRESSION: This EEG gives evidence of a severe widespread diffuse disturbance in cerebral function. The EEG failed to reveal any focal, lateralized, or epileptiform abnormalities. If clinically indicated, a followup EEG is recommended. Clinical correlation is recommended. MMODL / IJN: [id number] /
[2017-05-11 17:09] LABS: Glucose,Whole Blood 191 mg/dL (75-99)
[2017-05-11 18:03] LABS: Glucose,Whole Blood 205 mg/dL (75-99)
--- NOTE | 2017-05-11 18:03 | P.CNNES ---
History of Present Illness Consult date: 05/11/17 Reason for Consult: Patient unresponsive following cardiac arrest, remains on the ventilator. History of Present Illness: This patient is a 76-year-old right-handed white male who was admitted to Hospital for a elective right carotid endarterectomy procedure. According to his who provided the medical history today at bedside he had a history of bilateral carotid artery stenosis. He underwent a right carotid endarterectomy procedure on 05/06/2017. He was making progress in the intensive care unit and then on 05/08/2017 the patient went into full cardiac arrest. Initially he had acute respiratory arrest and subsequent cardiac arrest for a total of 30 minutes of resuscitation before he was provided. He required a total of 10 mg of epinephrine and 2 A of bicarbonate. He was intubated and monitored in the intensive care unit. Patient has remained intubated since his full cardiac arrest. The patient is at bedside. She states she has not seen much change since the cardiac arrest. He remains intubated and is not opening his eyes or following any commands. He is currently on a Diprivan drip at 45 mg per KG. He was sent for a computed tomography scan of the brain yesterday. The CAT scan was done yesterday and reveals evidence of cerebral atrophy. There was no evidence of any acute intracranial abnormality. Mild ethmoid sinusitis was noted. He is noted to have swelling around his right carotid endarterectomies surgical site with mild hematoma which apparently is been slowly improving. He is not opening his eyes. The patient does move to sternal rub. He withdraws to painful stimuli over all 4 extremities. The patient did undergo routine EEG earlier today which will be reviewed. His neurological exam does reveal him to have maintained pupillary responses and corneal response. He does withdraw to pain. Gag reflex is present. He does withdraw to painful stimuli. Deep tendon reflexes are 1+ and symmetric with no Babinski response elicited. At this time we will continue close neurological follow-up for the patient. Would recommend pulmonary to consider weaning parameters for this patient. We will give further recommendations depending on his EEG results. Case was discussed at length today with the patient's at bedside. All of her questions were answered. She is aware of his guarded condition. Review of Systems ROS unobtainable: due to endotracheal tube Constitutional: Denies chills, Denies fever Eyes: denies blurred vision, denies pain Ears, nose, mouth and throat: Denies headache, Denies sore throat Cardiovascular: Denies chest pain, Denies shortness of breath Respiratory: Denies cough Gastrointestinal: Denies abdominal pain, Denies diarrhea, Denies nausea, Denies vomiting Musculoskeletal: Denies myalgias Integumentary: Denies pruritus, Denies rash Neurological: Reports change in mentation, Reports motor disturbance, Denies numbness, Denies weakness Psychiatric: Denies anxiety, Denies depression Endocrine: Denies fatigue, Denies weight change Past Medical History Past Medical History: Atrial Fibrillation, Coronary Artery Disease (CAD), Diabetes Mellitus, GERD/Reflux, Hyperlipidemia, Hypertension, Osteoarthritis (OA ), Sleep Apnea/CPAP/BIPAP Additional Past Medical History / Comment(s): pericardial effusion, gout, blockage [place] carotid arteries, neuropathy, diverticulitis, insulin pump, uses a cane- wheelchair for distance. edema sh[place] feet History of Any Multi-Drug Resistant Organisms: None Reported Past Surgical History: Cardiac Ablation, Heart Catheterization, Orthopedic Surgery Additional Past Surgical History / Comment(s): carpal tunnel rt wrist, rt knee replacement, sh[place] hip replacement, drainage for pericaridal effusion, cardioversion, arthroscopy shaka knees Past Anesthesia/Blood Transfusion Reactions: Motion Sickness Past Psychological History: No Psychological Hx Reported Smoking Status: Never smoker Past Alcohol Use History: None Reported Past Drug Use History: None Reported - Past Family History Mother Family Medical History: No Reported History Medications and Allergies Home Medications Medication Instructions Recorded Confirmed Type Acetaminophen Tab [Tylenol Tab] 650 mg PO Q4H PRN 03/04/17 05/06/17 History Allopurinol [Zyloprim] 300 mg PO DAILY@1200 03/04/17 05/06/17 History Carvedilol [Coreg] 12.5 mg PO DAILY@1200,2330 03/04/17 05/06/17 History Colchicine [Colcrys] 0.6 mg PO BID PRN 03/04/17 05/06/17 History Furosemide [Lasix] 80 mg PO DAILY@1200,1800 03/04/17 05/06/17 History INSULIN LISPRO (For Pump) [humaLOG 0.01 units SQ-PUMP CONTINUOUS 03/04/17 History (For Pump)] Ibuprofen [Motrin] 800 mg PO TID PRN 03/04/17 05/06/17 History Lisinopril [Zestril] 2.5 mg PO HS 03/04/17 05/06/17 History Meclizine [Antivert] 25 mg PO TID PRN 03/04/17 05/06/17 History Pravastatin Sodium [Pravachol] 40 mg PO HS 03/04/17 05/06/17 History Pregabalin [Lyrica] 150 mg PO DAILY@1200,2330 03/04/17 05/06/17 History Propafenone HCl [Rythmol Sr] 325 mg PO DAILY@1200,2330 03/04/17 05/06/17 History Tamsulosin HCl [Flomax] 0.4 mg PO DAILY@1200 03/04/17 05/06/17 History Zolpidem [Ambien] 10 mg PO HS 03/04/17 05/06/17 History metFORMIN HCL 500 mg PO DAILY@1200,2330 03/04/17 05/06/17 History Aspirin [Adult Low Dose Aspirin EC] 81 mg PO DAILY@1200 04/27/17 05/06/17 History Dabigatran [Pradaxa] 150 mg PO DAILY@1200,2330 04/27/17 05/06/17 History Allergies Allergy/AdvReac Type Severity Reaction Status Date / Time No Known Allergies Allergy Verified 05/06/17 21:02 Physical Examination - Vital Signs Vital Signs: Vital Signs Temp Pulse Resp BP Pulse Ox 05/11/17 16:00 98.3 F 72 26 H 98 05/11/17 15:36 70 05/11/17 15:24 67 05/11/17 15:00 68 26 H 99 05/11/17 14:00 70 26 H 98 05/11/17 13:00 71 26 H 98 05/11/17 12:25 74 05/11/17 12:14 75 05/11/17 12:00 97.7 F 74 26 H 98 05/11/17 11:00 80 26 H 97 05/11/17 10:00 75 26 H 99 05/11/17 09:40 74 05/11/17 09:22 73 05/11/17 09:00 76 26 H 97 05/11/17 08:00 98.6 F 78 26 H 98 05/11/17 07:00 78 26 H 93 L 05/11/17 06:00 69 26 H 97 05/11/17 05:00 73 26 H 97 05/11/17 04:08 74 05/11/17 04:00 99.6 F 74 22 96 05/11/17 03:18 28 H 05/11/17 03:00 80 28 H 96 05/11/17 02:00 99.2 F 82 22 95 05/11/17 01:00 80 26 H 112/53 98 05/11/17 00:48 83 05/11/17 00:00 100.3 F H 84 21 117/53 96 05/10/17 23:31 77 26 H 112/53 96 05/10/17 23:00 74 26 H 96/48 98 05/10/17 22:00 100.2 F H 84 28 H 97/49 96 05/10/17 21:01 76 05/10/17 21:00 77 25 H 110/50 97 05/10/17 20:41 80 05/10/17 20:00 100.2 F H 83 26 H 114/53 96 05/10/17 19:00 83 26 H 100/58 96 05/10/17 18:00 78 26 H 109/53 94 L Intake and Output 05/11/17 05/11/17 05/11/17 06:59 14:59 22:59 Intake Total 2570.062 1378.008 224.308 Output Total 905 1120 120 Balance 1665.062 258.008 104.308 Intake: IV 2200 267.5 50 Furosemide 250 mg In 50 50 10 Sodium Chloride 0.9% 225 ml @ 5 MG/HR 5 mls/hr IVP .Q24H JOSÉ MIGUEL Rx#:[id number] KVO 2150 160 40 Piperacillin-Tazobactam 3 57.5 .375 gm In Dextrose/Water 1 50ml.bag @ 12.5 mls/hr IVPB Q8HR JOSÉ MIGUEL Rx#: [id number] Intake, IV Titration 250.062 510.508 24.308 Amount Furosemide 250 mg In 250 Sodium Chloride 0.9% 225 ml @ 5 MG/HR 5 mls/hr IVP .Q24H JOSÉ MIGUEL Rx#:[id number] Insulin Regular 100 unit 56.392 78.258 24.308 In Sodium Chloride 0.9% 100 ml @ Per Protocol IV .Q0M JOSÉ MIGUEL Rx#:[id number] Propofol 1,000 mg In 193.67 182.250 Empty Bag 1 bag @ Titrate IV .Q0M JOSÉ MIGUEL Rx#: [id number] Tube Feeding 120 540 120 Other 60 30 Output: Urine 905 1120 120 Other: Voiding Method Indwelling Catheter Indwelling Catheter Weight 143.1 kg ABP, PAP, CO, CI - Last 8 Hours Arterial Blood Pressure 116/45 Arterial Blood Pressure 115/49 Arterial Blood Pressure 109/52 Arterial Blood Pressure 110/48 Arterial Blood Pressure 119/52 Arterial Blood Pressure 171/59 Arterial Blood Pressure 116/48 - Constitutional General appearance: obese - EENT EENT: PERRL, mucous membranes moist - Respiratory Respiratory: lungs clear - Cardiovascular Cardiovascular: normal S1, normal S2 Extremities: no peripheral edema bilaterally - Gastrointestinal Gastrointestinal: normoactive bowel sounds - Integumentary Integumentary: normal - Neurologic Cranial nerve examination: PERRL, V1/V2/V3 grossly intact, face symmetric, tongue midline, intact gag reflex, intact corneal reflex Speech examination: other (Patient intubated on the ventilator.) Sensorimotor examination: intact Motor examination - right side: 3/5: biceps, triceps, wrist flexion, wrist extension, sales planning coordinator, hip flexors, knee extensors, dorsiflexion, toe extension (EHL) , plantarflexion Motor examination - left side: 3/5: biceps, triceps, wrist flexion, wrist extension, sales planning coordinator, hip flexors, knee extensors, dorsiflexion, toe extension (EHL) , plantarflexion Detailed sensory examination: intact Reflex and gait examination: intact Reflexes: 1+: ankle, bicep, knee, tricep - Musculoskeletal Musculoskeletal: no pain - Psychiatric Psychiatric: mood/affect appropriate, cooperative Results - Laboratory Findings CBC and BMP: 05/11/17 04:15 05/11/17 04:15 Abnormal Lab Findings: Abnormal Labs 05/06/17 05/06/17 05/06/17 13:57 14:00 14:00 WBC RBC Hgb Hct MCV MCHC Neutrophils # Lymphocytes # Monocytes # PT INR 1.2 H APTT 37.8 H Fibrinogen D-Dimer ABG pH ABG pCO2 ABG pO2 ABG HCO3 ABG Total CO2 ABG O2 Saturation Potassium BUN 41 H Creatinine 1.29 H Glucose 123 H POC Glucose (mg/dL) 120 H Hemoglobin A1c Phosphorus AST ALT 18 L Troponin I Total Protein Albumin Urine Protein Urine Blood Ur Leukocyte Esterase Urine RBC Urine WBC 05/06/17 05/06/17 05/06/17 16:49 20:56 21:32 WBC RBC Hgb Hct MCV MCHC Neutrophils # Lymphocytes # Monocytes # PT INR APTT Fibrinogen D-Dimer ABG pH 7.16 L* ABG pCO2 66 H ABG pO2 136 H ABG HCO3 ABG Total CO2 25 H ABG O2 Saturation Potassium BUN Creatinine Glucose POC Glucose (mg/dL) 134 H 175 H Hemoglobin A1c Phosphorus AST ALT Troponin I Total Protein Albumin Urine Protein Urine Blood Ur Leukocyte Esterase Urine RBC Urine WBC 05/06/17 05/06/17 05/06/17 22:06 22:15 22:32 WBC 11.3 H RBC 3.76 L Hgb 12.6 L Hct MCV 105.7 H MCHC Neutrophils # 10.4 H Lymphocytes # 0.6 L Monocytes # PT INR APTT Fibrinogen D-Dimer ABG pH 7.29 L ABG pCO2 55 H ABG pO2 266 H ABG HCO3 26 H ABG Total CO2 28 H ABG O2 Saturation 99.0 H Potassium BUN Creatinine Glucose POC Glucose (mg/dL) 200 H Hemoglobin A1c Phosphorus AST ALT Troponin I Total Protein Albumin Urine Protein Urine Blood Ur Leukocyte Esterase Urine RBC Urine WBC 05/06/17 05/07/17 05/07/17 22:32 02:11 04:49 WBC 12.2 H RBC 3.47 L Hgb 11.4 L Hct 36.9 L MCV 106.5 H MCHC Neutrophils # 10.8 H Lymphocytes # 0.8 L Monocytes # PT INR APTT Fibrinogen D-Dimer ABG pH ABG pCO2 ABG pO2 ABG HCO3 ABG Total CO2 ABG O2 Saturation Potassium BUN 36 H Creatinine Glucose 218 H POC Glucose (mg/dL) 184 H Hemoglobin A1c Phosphorus AST ALT 19 L Troponin I Total Protein Albumin Urine Protein Urine Blood Ur Leukocyte Esterase Urine RBC Urine WBC 05/07/17 05/07/17 05/07/17 04:49 04:49 07:04 WBC RBC Hgb Hct MCV MCHC Neutrophils # Lymphocytes # Monocytes # PT INR APTT Fibrinogen D-Dimer ABG pH ABG pCO2 ABG pO2 ABG HCO3 ABG Total CO2 ABG O2 Saturation Potassium 5.4 H BUN 36 H Creatinine Glucose 215 H POC Glucose (mg/dL) 243 H Hemoglobin A1c 6.9 H Phosphorus 4.6 H AST ALT Troponin I Total Protein Albumin Urine Protein Urine Blood Ur Leukocyte Esterase Urine RBC Urine WBC 05/07/17 05/07/17 05/07/17 12:59 15:45 15:45 WBC 12.1 H RBC 3.21 L Hgb 10.8 L Hct 34.3 L MCV 106.9 H MCHC Neutrophils # Lymphocytes # Monocytes # PT INR APTT Fibrinogen D-Dimer ABG pH ABG pCO2 ABG pO2 ABG HCO3 ABG Total CO2 ABG O2 Saturation Potassium BUN 34 H Creatinine Glucose 228 H POC Glucose (mg/dL) 214 H Hemoglobin A1c Phosphorus AST ALT Troponin I Total Protein Albumin Urine Protein Urine Blood Ur Leukocyte Esterase Urine RBC Urine WBC 05/07/17 05/07/17 05/08/17 17:12 20:34 04:30 WBC RBC Hgb Hct MCV MCHC Neutrophils # Lymphocytes # Monocytes # PT INR APTT Fibrinogen D-Dimer ABG pH ABG pCO2 ABG pO2 ABG HCO3 ABG Total CO2 ABG O2 Saturation Potassium BUN 38 H Creatinine 1.40 H Glucose 187 H POC Glucose (mg/dL) 230 H 221 H Hemoglobin A1c Phosphorus AST ALT Troponin I Total Protein Albumin Urine Protein Urine Blood Ur Leukocyte Esterase Urine RBC Urine WBC 05/08/17 05/08/17 05/08/17 04:30 07:55 12:08 WBC 13.2 H RBC 3.24 L Hgb 10.6 L Hct 34.5 L MCV 106.5 H MCHC 30.9 L Neutrophils # 11.3 H Lymphocytes # 0.7 L Monocytes # PT INR APTT Fibrinogen D-Dimer ABG pH ABG pCO2 ABG pO2 ABG HCO3 ABG Total CO2 ABG O2 Saturation Potassium BUN Creatinine Glucose POC Glucose (mg/dL) 232 H 217 H Hemoglobin A1c Phosphorus AST ALT Troponin I Total Protein Albumin Urine Protein Urine Blood Ur Leukocyte Esterase Urine RBC Urine WBC 05/08/17 05/08/17 05/08/17 18:16 19:17 20:59 WBC RBC Hgb Hct MCV MCHC Neutrophils # Lymphocytes # Monocytes # PT INR APTT Fibrinogen D-Dimer ABG pH ABG pCO2 ABG pO2 ABG HCO3 ABG Total CO2 ABG O2 Saturation Potassium BUN Creatinine Glucose POC Glucose (mg/dL) 171 H 193 H Hemoglobin A1c Phosphorus AST ALT Troponin I 1.140 H* Total Protein Albumin Urine Protein Urine Blood Ur Leukocyte Esterase Urine RBC Urine WBC 05/08/17 05/08/17 05/08/17 22:31 23:20 23:35 WBC RBC Hgb Hct MCV MCHC Neutrophils # Lymphocytes # Monocytes # PT INR APTT Fibrinogen D-Dimer ABG pH 7.19 L* ABG pCO2 74 H* ABG pO2 52 L ABG HCO3 28 H ABG Total CO2 30 H ABG O2 Saturation 77.5 L Potassium BUN Creatinine Glucose POC Glucose (mg/dL) 184 H Hemoglobin A1c Phosphorus AST ALT Troponin I 0.710 H* Total Protein Albumin Urine Protein Urine Blood Ur Leukocyte Esterase Urine RBC Urine WBC 05/08/17 05/08/17 05/08/17 23:35 23:35 23:35 WBC 27.1 H* RBC 3.40 L Hgb 11.3 L Hct 36.7 L MCV 107.8 H MCHC 30.8 L Neutrophils # 23.8 H Lymphocytes # Monocytes # 1.2 H PT 18.1 H INR 2.0 H APTT 48.8 H Fibrinogen D-Dimer ABG pH ABG pCO2 ABG pO2 ABG HCO3 ABG Total CO2 ABG O2 Saturation Potassium BUN 42 H Creatinine 1.80 H Glucose 271 H POC Glucose (mg/dL) Hemoglobin A1c Phosphorus AST ALT 18 L Troponin I Total Protein Albumin Urine Protein Urine Blood Ur Leukocyte Esterase Urine RBC Urine WBC 05/09/17 05/09/17 05/09/17 02:39 04:04 04:29 WBC RBC Hgb Hct MCV MCHC Neutrophils # Lymphocytes # Monocytes # PT INR APTT Fibrinogen D-Dimer ABG pH ABG pCO2 ABG pO2 ABG HCO3 ABG Total CO2 ABG O2 Saturation Potassium BUN Creatinine Glucose POC Glucose (mg/dL) 304 H 310 H 287 H Hemoglobin A1c Phosphorus AST ALT Troponin I Total Protein Albumin Urine Protein Urine Blood Ur Leukocyte Esterase Urine RBC Urine WBC 05/09/17 05/09/17 05/09/17 04:40 04:46 04:46 WBC 19.5 H RBC 3.28 L Hgb 11.0 L Hct 35.8 L MCV 109.2 H MCHC 30.8 L Neutrophils # 17.7 H Lymphocytes # 0.5 L Monocytes # PT INR APTT Fibrinogen D-Dimer ABG pH 7.32 L ABG pCO2 48 H ABG pO2 55 L ABG HCO3 ABG Total CO2 26 H ABG O2 Saturation 87.2 L Potassium BUN 45 H Creatinine 2.39 H Glucose 293 H POC Glucose (mg/dL) Hemoglobin A1c Phosphorus AST ALT Troponin I Total Protein Albumin Urine Protein Urine Blood Ur Leukocyte Esterase Urine RBC Urine WBC 05/09/17 05/09/17 05/09/17 04:46 05:40 06:45 WBC RBC Hgb Hct MCV MCHC Neutrophils # Lymphocytes # Monocytes # PT INR APTT Fibrinogen D-Dimer ABG pH ABG pCO2 ABG pO2 ABG HCO3 ABG Total CO2 ABG O2 Saturation Potassium BUN Creatinine Glucose POC Glucose (mg/dL) 276 H 273 H Hemoglobin A1c Phosphorus AST ALT Troponin I 2.870 H* Total Protein Albumin Urine Protein Urine Blood Ur Leukocyte Esterase Urine RBC Urine WBC 05/09/17 05/09/17 05/09/17 08:14 09:29 10:45 WBC RBC Hgb Hct MCV MCHC Neutrophils # Lymphocytes # Monocytes # PT INR APTT Fibrinogen D-Dimer ABG pH ABG pCO2 ABG pO2 ABG HCO3 ABG Total CO2 ABG O2 Saturation Potassium BUN Creatinine Glucose POC Glucose (mg/dL) 267 H 230 H 207 H Hemoglobin A1c Phosphorus AST ALT Troponin I Total Protein Albumin Urine Protein Urine Blood Ur Leukocyte Esterase Urine RBC Urine WBC 05/09/17 05/09/17 05/09/17 11:38 12:27 14:08 WBC RBC Hgb Hct MCV MCHC Neutrophils # Lymphocytes # Monocytes # PT INR APTT Fibrinogen D-Dimer ABG pH ABG pCO2 ABG pO2 61 L ABG HCO3 29 H ABG Total CO2 30 H ABG O2 Saturation 92.3 L Potassium BUN Creatinine Glucose POC Glucose (mg/dL) 227 H 189 H Hemoglobin A1c Phosphorus AST ALT Troponin I Total Protein Albumin Urine Protein Urine Blood Ur Leukocyte Esterase Urine RBC Urine WBC 05/09/17 05/09/17 05/09/17 14:34 14:50 14:50 WBC 16.3 H RBC 3.07 L Hgb 10.1 L Hct 32.5 L MCV 106.0 H MCHC Neutrophils # 13.6 H Lymphocytes # Monocytes # 1.2 H PT 19.9 H INR 2.2 H APTT 58.2 H Fibrinogen D-Dimer ABG pH ABG pCO2 ABG pO2 66 L ABG HCO3 27 H ABG Total CO2 28 H ABG O2 Saturation Potassium BUN Creatinine Glucose POC Glucose (mg/dL) Hemoglobin A1c Phosphorus AST ALT Troponin I Total Protein Albumin Urine Protein Urine Blood Ur Leukocyte Esterase Urine RBC Urine WBC 05/09/17 05/09/17 05/09/17 14:50 14:58 16:16 WBC RBC Hgb Hct MCV MCHC Neutrophils # Lymphocytes # Monocytes # PT INR APTT Fibrinogen D-Dimer ABG pH ABG pCO2 ABG pO2 ABG HCO3 ABG Total CO2 ABG O2 Saturation Potassium BUN 51 H Creatinine 2.99 H Glucose 181 H POC Glucose (mg/dL) 182 H 163 H Hemoglobin A1c Phosphorus AST 114 H ALT Troponin I Total Protein Albumin 3.4 L Urine Protein Urine Blood Ur Leukocyte Esterase Urine RBC Urine WBC 05/09/17 05/09/17 05/09/17 17:48 18:48 20:36 WBC RBC Hgb Hct MCV MCHC Neutrophils # Lymphocytes # Monocytes # PT INR APTT Fibrinogen D-Dimer ABG pH ABG pCO2 ABG pO2 ABG HCO3 ABG Total CO2 ABG O2 Saturation Potassium BUN Creatinine Glucose POC Glucose (mg/dL) 174 H 151 H 130 H Hemoglobin A1c Phosphorus AST ALT Troponin I Total Protein Albumin Urine Protein Urine Blood Ur Leukocyte Esterase Urine RBC Urine WBC 05/09/17 05/09/17 05/10/17 21:40 23:03 00:39 WBC RBC Hgb Hct MCV MCHC Neutrophils # Lymphocytes # Monocytes # PT INR APTT Fibrinogen D-Dimer ABG pH ABG pCO2 ABG pO2 ABG HCO3 ABG Total CO2 ABG O2 Saturation Potassium BUN Creatinine Glucose POC Glucose (mg/dL) 155 H 156 H 157 H Hemoglobin A1c Phosphorus AST ALT Troponin I Total Protein Albumin Urine Protein Urine Blood Ur Leukocyte Esterase Urine RBC Urine WBC 05/10/17 05/10/17 05/10/17 02:01 03:33 03:50 WBC RBC Hgb Hct MCV MCHC Neutrophils # Lymphocytes # Monocytes # PT 16.7 H INR 1.8 H APTT 53.3 H Fibrinogen 516 H D-Dimer 1.07 H ABG pH ABG pCO2 ABG pO2 ABG HCO3 ABG Total CO2 ABG O2 Saturation Potassium BUN Creatinine Glucose POC Glucose (mg/dL) 162 H 199 H Hemoglobin A1c Phosphorus AST ALT Troponin I Total Protein Albumin Urine Protein Urine Blood Ur Leukocyte Esterase Urine RBC Urine WBC 05/10/17 05/10/17 05/10/17 03:54 03:54 04:10 WBC 18.0 H RBC 2.99 L Hgb 10.0 L Hct 31.6 L MCV 105.4 H MCHC Neutrophils # 15.1 H Lymphocytes # Monocytes # 1.1 H PT INR APTT Fibrinogen D-Dimer ABG pH 7.46 H ABG pCO2 ABG pO2 74 L ABG HCO3 28 H ABG Total CO2 29 H ABG O2 Saturation Potassium BUN 58 H Creatinine 3.10 H Glucose 190 H POC Glucose (mg/dL) Hemoglobin A1c Phosphorus AST 153 H ALT Troponin I Total Protein 5.9 L Albumin 3.2 L Urine Protein Urine Blood Ur Leukocyte Esterase Urine RBC Urine WBC 05/10/17 05/10/17 05/10/17 05:02 05:58 07:05 WBC RBC Hgb Hct MCV MCHC Neutrophils # Lymphocytes # Monocytes # PT INR APTT Fibrinogen D-Dimer ABG pH ABG pCO2 ABG pO2 ABG HCO3 ABG Total CO2 ABG O2 Saturation Potassium BUN Creatinine Glucose POC Glucose (mg/dL) 172 H 177 H 156 H Hemoglobin A1c Phosphorus AST ALT Troponin I Total Protein Albumin Urine Protein Urine Blood Ur Leukocyte Esterase Urine RBC Urine WBC 05/10/17 05/10/17 05/10/17 08:22 09:38 11:00 WBC RBC Hgb Hct MCV MCHC Neutrophils # Lymphocytes # Monocytes # PT INR APTT Fibrinogen D-Dimer ABG pH ABG pCO2 ABG pO2 ABG HCO3 ABG Total CO2 ABG O2 Saturation Potassium BUN Creatinine Glucose POC Glucose (mg/dL) 205 H 191 H 212 H Hemoglobin A1c Phosphorus AST ALT Troponin I Total Protein Albumin Urine Protein Urine Blood Ur Leukocyte Esterase Urine RBC Urine WBC 05/10/17 05/10/17 05/10/17 12:14 13:46 14:40 WBC RBC Hgb Hct MCV MCHC Neutrophils # Lymphocytes # Monocytes # PT INR APTT Fibrinogen D-Dimer ABG pH ABG pCO2 ABG pO2 ABG HCO3 ABG Total CO2 ABG O2 Saturation Potassium BUN Creatinine Glucose POC Glucose (mg/dL) 205 H 197 H 216 H Hemoglobin A1c Phosphorus AST ALT Troponin I Total Protein Albumin Urine Protein Urine Blood Ur Leukocyte Esterase Urine RBC Urine WBC 05/10/17 05/10/17 05/10/17 16:39 17:59 19:35 WBC RBC Hgb Hct MCV MCHC Neutrophils # Lymphocytes # Monocytes # PT INR APTT Fibrinogen D-Dimer ABG pH ABG pCO2 ABG pO2 ABG HCO3 ABG Total CO2 ABG O2 Saturation Potassium BUN Creatinine Glucose POC Glucose (mg/dL) 196 H 183 H 205 H Hemoglobin A1c Phosphorus AST ALT Troponin I Total Protein Albumin Urine Protein Urine Blood Ur Leukocyte Esterase Urine RBC Urine WBC 05/10/17 05/10/17 05/10/17 20:03 20:57 21:54 WBC RBC Hgb Hct MCV MCHC Neutrophils # Lymphocytes # Monocytes # PT INR APTT Fibrinogen D-Dimer ABG pH ABG pCO2 ABG pO2 ABG HCO3 ABG Total CO2 ABG O2 Saturation Potassium BUN Creatinine Glucose POC Glucose (mg/dL) 187 H 191 H 179 H Hemoglobin A1c Phosphorus AST ALT Troponin I Total Protein Albumin Urine Protein Urine Blood Ur Leukocyte Esterase Urine RBC Urine WBC 05/10/17 05/10/17 05/10/17 22:59 23:26 23:58 WBC RBC Hgb Hct MCV MCHC Neutrophils # Lymphocytes # Monocytes # PT INR APTT Fibrinogen D-Dimer ABG pH 7.49 H ABG pCO2 ABG pO2 ABG HCO3 28 H ABG Total CO2 30 H ABG O2 Saturation 97.5 H Potassium BUN Creatinine Glucose POC Glucose (mg/dL) 153 H 168 H Hemoglobin A1c Phosphorus AST ALT Troponin I Total Protein Albumin Urine Protein Urine Blood Ur Leukocyte Esterase Urine RBC Urine WBC 05/11/17 05/11/17 05/11/17 01:02 02:23 03:10 WBC RBC Hgb Hct MCV MCHC Neutrophils # Lymphocytes # Monocytes # PT INR APTT Fibrinogen D-Dimer ABG pH ABG pCO2 ABG pO2 ABG HCO3 ABG Total CO2 ABG O2 Saturation Potassium BUN Creatinine Glucose POC Glucose (mg/dL) 174 H 186 H 172 H Hemoglobin A1c Phosphorus AST ALT Troponin I Total Protein Albumin Urine Protein Urine Blood Ur Leukocyte Esterase Urine RBC Urine WBC 05/11/17 05/11/17 05/11/17 04:12 04:15 04:15 WBC 12.9 H RBC 2.53 L Hgb 8.4 L D Hct 26.6 L MCV 105.2 H MCHC Neutrophils # 10.3 H Lymphocytes # Monocytes # PT INR APTT Fibrinogen D-Dimer ABG pH ABG pCO2 ABG pO2 ABG HCO3 ABG Total CO2 ABG O2 Saturation Potassium BUN 80 H* Creatinine 3.30 H Glucose 154 H POC Glucose (mg/dL) 169 H Hemoglobin A1c Phosphorus AST 94 H ALT Troponin I Total Protein 5.5 L Albumin 2.8 L Urine Protein Urine Blood Ur Leukocyte Esterase Urine RBC Urine WBC 05/11/17 05/11/17 05/11/17 05:13 05:14 06:14 WBC RBC Hgb Hct MCV MCHC Neutrophils # Lymphocytes # Monocytes # PT INR APTT Fibrinogen D-Dimer ABG pH 7.49 H ABG pCO2 ABG pO2 113 H ABG HCO3 29 H ABG Total CO2 30 H ABG O2 Saturation 98.2 H Potassium BUN Creatinine Glucose POC Glucose (mg/dL) 182 H 164 H Hemoglobin A1c Phosphorus AST ALT Troponin I Total Protein Albumin Urine Protein Urine Blood Ur Leukocyte Esterase Urine RBC Urine WBC 05/11/17 05/11/17 05/11/17 07:38 09:26 10:20 WBC RBC Hgb Hct MCV MCHC Neutrophils # Lymphocytes # Monocytes # PT INR APTT Fibrinogen D-Dimer ABG pH ABG pCO2 ABG pO2 ABG HCO3 ABG Total CO2 ABG O2 Saturation Potassium BUN Creatinine Glucose POC Glucose (mg/dL) 183 H 182 H 183 H Hemoglobin A1c Phosphorus AST ALT Troponin I Total Protein Albumin Urine Protein Urine Blood Ur Leukocyte Esterase Urine RBC Urine WBC 05/11/17 05/11/17 05/11/17 12:03 12:30 12:53 WBC RBC Hgb Hct MCV MCHC Neutrophils # Lymphocytes # Monocytes # PT 14.2 H INR 1.5 H APTT Fibrinogen D-Dimer ABG pH ABG pCO2 ABG pO2 ABG HCO3 ABG Total CO2 ABG O2 Saturation Potassium BUN Creatinine Glucose POC Glucose (mg/dL) 171 H 194 H Hemoglobin A1c Phosphorus AST ALT Troponin I Total Protein Albumin Urine Protein Urine Blood Ur Leukocyte Esterase Urine RBC Urine WBC 05/11/17 05/11/17 05/11/17 14:15 14:40 15:39 WBC RBC Hgb Hct MCV MCHC Neutrophils # Lymphocytes # Monocytes # PT INR APTT Fibrinogen D-Dimer ABG pH ABG pCO2 ABG pO2 ABG HCO3 ABG Total CO2 ABG O2 Saturation Potassium BUN Creatinine Glucose POC Glucose (mg/dL) 204 H 164 H Hemoglobin A1c Phosphorus AST ALT Troponin I Total Protein Albumin Urine Protein 1+ H Urine Blood Moderate H Ur Leukocyte Esterase Moderate H Urine RBC >182 H Urine WBC 66 H 05/11/17 16:55 WBC RBC Hgb Hct MCV MCHC Neutrophils # Lymphocytes # Monocytes # PT INR APTT Fibrinogen D-Dimer ABG pH ABG pCO2 ABG pO2 ABG HCO3 ABG Total CO2 ABG O2 Saturation Potassium BUN Creatinine Glucose POC Glucose (mg/dL) 191 H Hemoglobin A1c Phosphorus AST ALT Troponin I Total Protein Albumin Urine Protein Urine Blood Ur Leukocyte Esterase Urine RBC Urine WBC Assessment and Plan (1) Cardiopulmonary arrest with successful resuscitation Current Visit: Yes Status: Acute Code(s): I46.9 - CARDIAC ARREST, CAUSE UNSPECIFIED SNOMED Code(s): 679809379 (2) Anoxic encephalopathy Current Visit: Yes Status: Acute Code(s): G93.1 - ANOXIC BRAIN DAMAGE, NOT ELSEWHERE CLASSIFIED SNOMED Code(s): 771496880 (3) History of right-sided carotid endarterectomy Current Visit: Yes Status: Acute Code(s): Z98.890 - OTHER SPECIFIED POSTPROCEDURAL STATES SNOMED Code(s): 526705880 (4) Diabetes mellitus type 2 in obese Current Visit: Yes Status: Chronic Code(s): E11.69 - TYPE 2 DIABETES MELLITUS WITH OTHER SPECIFIED COMPLICATION; E66.9 - OBESITY, UNSPECIFIED SNOMED Code(s): 98805757 (5) Paroxysmal atrial fibrillation Current Visit: Yes Status: Chronic Code(s): I48.0 - PAROXYSMAL ATRIAL FIBRILLATION SNOMED Code(s): 193034641 Plan: This patient is a 76-year-old male who suffered a full cardiopulmonary arrest on 05/08/2017. Patient initially developed acute respiratory arrest and subsequent cardiac arrest with a total of 30 minutes of resuscitation. He was intubated and transferred to the intensive care unit. He required a total of 10 mg of epinephrine and 2 A of bicarbonate for resuscitation. He was sent for a computed tomography scan of the brain yesterday results of which are noted above. CAT scan failed to reveal any evidence of acute stroke or hemorrhage. He remains intubated on the ventilator. He underwent a routine EEG today which will be reviewed. Case was discussed at length today with the patient's at bedside. She is aware of his guarded condition regarding his recent cardiac arrest. We will give further recommendations depending on his EEG results. Would continue all supportive care of this patient in the intensive care unit. His overall prognosis at this time remains very guarded. Case was discussed at length with the patient's . All of her questions were answered to the best of our ability. She is aware of his guarded condition at this time. Time with Patient: Greater than 30
[2017-05-11 19:11] LABS: Glucose,Whole Blood 209 mg/dL (75-99)
[2017-05-11 19:51] LABS: Iron Saturation 5.19 (15.00-50.00)
[2017-05-11] MEDS ORDERED: POTASSIUM BICARBONATE/CIT AC 20 MEQ TABLET.EFF NG-TUBE SCH (20:00)
[2017-05-11 20:14] LABS: Glucose,Whole Blood 186 mg/dL (75-99)
[2017-05-11 21:10] LABS: Glucose,Whole Blood 186 mg/dL (75-99)
[2017-05-11 22:22] LABS: Glucose,Whole Blood 167 mg/dL (75-99)
[2017-05-11 23:12] LABS: Glucose,Whole Blood 168 mg/dL (75-99)
[2017-05-12 00:08] LABS: Glucose,Whole Blood 181 mg/dL (75-99)
[2017-05-12] MEDS: INSULIN REGULAR 100 UNIT in SODIUM CHLORIDE 0.9% 100 ML IV SCH ×3 (01:17→21:14)
[2017-05-12 01:22] LABS: Glucose,Whole Blood 164 mg/dL (75-99)
[2017-05-12 02:58] LABS: Glucose,Whole Blood 151 mg/dL (75-99)
[2017-05-12] MEDS: IPRATROPIUM-ALBUTEROL 3 ML NEB INHALATION SCH ×5 (03:41→19:14)
[2017-05-12] MEDS: MORPHINE SULFATE 4 MG/ML SYRINGE IVP PRN ×2 (03:55→22:29)
[2017-05-12 04:12] LABS: Glucose,Whole Blood 171 mg/dL (75-99)
[2017-05-12 04:26] LABS: Basophils % (A) 0 %; Eosinophils # (A) 0.4 k/uL (0-0.7); Eosinophils % (A) 3 %; HCT 26.6 % (39.0-53.0); HGB 8.9 gm/dL (13.0-17.5); Lymphocytes # (A) 1.4 k/uL (1.0-4.8); Lymphocytes % (A) 11 %; MCH 33.9 pg (25.0-35.0); MCHC 33.5 g/dL (31.0-37.0); MCV 101.1 fL (80.0-100.0); Macrocytosis Slight; Mean Platelet Volume 8.7; Monocytes # (A) 0.8 k/uL (0-1.0); Monocytes % (A) 7 %; Neutrophils # (A) 9.3 k/uL (1.3-7.7); Neutrophils % (A) 77 %; Platelet Count 221 k/uL (150-450); RBC 2.63 m/uL (4.30-5.90); RDW 14.9 % (11.5-15.5); WBC 12.2 k/uL (3.8-10.6)
[2017-05-12 04:28] LABS: INR 1.4 (<1.2); Prothrombin Time 13.1 sec (9.0-12.0)
[2017-05-12 05:01] LABS: Albumin 3.1 g/dL (3.5-5.0); Calcium 8.6 mg/dL (8.4-10.2); Magnesium 2.3 mg/dL (1.6-2.3); Potassium 3.9 mmol/L (3.5-5.1); Total Bilirubin 0.5 mg/dL (0.2-1.3); Total Protein 5.9 g/dL (6.3-8.2)
[2017-05-12 05:10] LABS: ABG Base Excess 7.2 mmol/L; ABG HCO3 31 mmol/L (21-25); ABG Oxygen Saturation 93.9 % (94-97); ABG PCO2 40 mmHg (35-45); ABG PH 7.49 (7.35-7.45); ABG PO2 74 mmHg (83-108); ABG TCO2 32 mmol/L (19-24)
[2017-05-12 06:00] LABS: Glucose,Whole Blood 144 mg/dL (75-99)
[2017-05-12] MEDS: PIPERACILLIN-TAZOBACTAM 3.375 GM in DEXTROSE/WATER 1 50ML.BAG IVPB SCH ×2 (06:18→17:16)
[2017-05-12 07:08] LABS: Glucose,Whole Blood 161 mg/dL (75-99)
[2017-05-12] MEDS ORDERED: BISACODYL 10 MG SUPP RECTAL PRN (07:42)
[2017-05-12 08:02] LABS: Glucose,Whole Blood 146 mg/dL (75-99)
[2017-05-12] MEDS: CHLORHEXIDINE GLUCONATE 15 ML CUP MUCOUS MEM SCH ×2 (08:04→22:28)
[2017-05-12] MEDS: PANTOPRAZOLE 40 MG/10 ML VIAL IVP SCH ×2 (08:05→22:27)
[2017-05-12] MEDS: METOLAZONE 5 MG TAB PO SCH ×2 (08:05→22:27)
[2017-05-12] MEDS: ASPIRIN 81 MG PO SCH (08:05)
--- NOTE | 2017-05-12 08:08 | CDI ---
Last Revision, February 2017 Documentation Clarification Form Date: 05/12/2017 8:00:00 AM From: Nguyen ParsonsGlassSOFI stallings, CCDS Admit Date: 05/06/2017 11:59:00 AM Patient Name: Mo Mitchell Visit Number: [id number] Discharge Date: ATTENTION: The Clinical Documentation Specialists (CDI) and [facility] Coding Staff appreciate your assistance in clarifying documentation. Please respond to the clarification below the line at the bottom and electronically sign. The CDI & [facility] Coding staff will review the response and follow-up if needed. Please note: Queries are made part of the Legal Health Record. If you have any questions, please contact the author of this message via ITS. Dr. Marshall Osei: Per the 05/11 progress note by nephrology and subsequent documentation: "hematoma over the neck especially over the right anterior neck area with a clean incision , postsurgical. Patients Admitting Diagnosis: Severe right internal carotid artery stenosis. Post-Operative Diagnosis: Same Procedure performed: Right carotid endarterectomy with patch angioplasty. History/Risk Factors: Severe carotid stenosis, Morbid Obesity, CAD, CHF, COPD, CKD. Clinical Indicators: as above. Treatment: Patient in ICU on vent after cardiopulmary arrest possible due to NSTEMI, prolonged CPR >25 minutes postoperatively. IV Lasix, IV Zosyn, IV Tylenol, Critical Care monitoring. In order to accurately reflect this patients severity of illness, please clarify if the post-operative diagnosis: hematoma, is: An expected post-procedural or post-surgical condition; Integral to the procedure; Inherent to the procedure; An unexpected post-procedural or post-surgical condition related to surgical care; Other, please specify Unable to determine Please continue to document in your progress notes and discharge summary in order to capture severity of illness and risk of mortality. Include clinical findings that support your diagnosis. MTDD
--- NOTE | 2017-05-12 08:09 | XR ---
EXAMINATION TYPE: XR chest 1V confirm line [facility] DATE OF EXAM: 05/12/2017 COMPARISON: 05/11/2017 HISTORY: 76-year-old male cardiorespiratory arrest TECHNIQUE: Single frontal view of the chest is obtained. FINDINGS: ET tube tip at the level of the medial clavicular heads. Consideration can be given to slight advance ment of 2 cm. Heart remains enlarged. Elongation/ectasia of the thoracic aorta. Diffuse interstitial and patchy airspace densities persist with dense retrocardiac opacity and suggestion of small effusio ns. IMPRESSION: 1. ET tube tip at the level of the medial clavicular heads. Consider slight advancement by 2 cm and r eassessment on follow-up. 2. Mild cardiomegaly. Continued mixed interstitial and airspace disease and small effusions. 3. Continued more dense retrocardiac atelectasis and/or consolidation.
--- NOTE | 2017-05-12 08:25 | CDI ---
Last Revision, February 2017 Documentation Clarification Form Date: 05/12/2017 8:18:00 AM From: Nguyen GlassSOFI, CCDS Admit Date: 05/06/2017 11:59:00 AM Patient Name: Mo Mitchell Visit Number: [id number] Discharge Date: ATTENTION: The Clinical Documentation Specialists (CDI) and [facility] Coding Staff appreciate your assistance in clarifying documentation. Please respond to the clarification below the line at the bottom and electronically sign. The CDI & [facility] Coding staff will review the response and follow-up if needed. Please note: Queries are made part of the Legal Health Record. If you have any questions, please contact the author of this message via ITS. Dr. Toño Kinney and/or Dr. Jelena Kimball: Per the 05/09 pulmonary progress note: "Hypoxemic respiratory failure with bilateral diffuse dense infiltrates." Patients Admitting Diagnosis: Elective admit for a right carotid endarterectomy with patch angioplasty for severe right internal carotid artery stenosis on 05/07. History/Risk Factors: Morbid Obesity, severe carotid stenosis, CAD, CHF Clinical Indicators: Postoperatively, the patient removed his O2 mask, went into cardiopulmonary arrest, had prolonged CPR and is now intubated on ventilation. Treatment: IV Lasix, IV Zosyn, IV Tylenol In order to accurately reflect this patients severity of illness, please clarify if the post-operative diagnosis is: An expected post-procedural or post-surgical condition; Integral to the procedure; Inherent to the procedure; An unexpected post-procedural or post-surgical condition related to surgical care; Other, please specify Unable to determine Please continue to document in your progress notes and discharge summary in order to capture severity of illness and risk of mortality. Include clinical findings that support your diagnosis. MTDD
[2017-05-12] MEDS: SENNOSIDES-DOCUSATE SODIUM 1 EACH TAB PO SCH ×2 (08:40→23:23)
--- NOTE | 2017-05-12 09:28 | P.PN ---
<Piper Skelton - Last Filed: 05/12/17 09:18> Subjective Progress Note Date: 05/12/17 Principal diagnosis: Hemodynamically severe right internal carotid artery stenosis. Previous medical history of hypertension, gout, hyperlipidemia, diabetes, insomnia, atrial fibrillation with ablation, coronary artery disease, obstructive sleep apnea with CPAP use. POD #6 elective right carotid endarterectomy with patch angioplasty. Postoperative hematoma present at surgical site, and expected outcome given CPR during resuscitation as well as long-standing history of anticoagulation. Status post cardiopulmonary arrest with resuscitation, suspect non-STEMI. Acute systolic heart failure with an ejection fraction less than 20%. Acute kidney injury likely secondary to cardiac arrest with 30 minute down time. Patient's currently laying in bed in no acute distress, remains on mechanical ventilation. Family present at bedside, updated with patient's condition, all questions answered. Objective - Vital Signs Vital signs: Vital Signs Temp 98.0 F 05/12/17 08:00 Pulse 83 05/12/17 09:00 Resp 21 05/12/17 09:00 BP 112/53 05/11/17 01:00 Pulse Ox 98 05/12/17 09:00 Intake & Output 05/11/17 05/12/17 05/12/17 18:59 06:59 18:59 Intake Total 1966.950 682.849 329.333 Output Total 1760 1525 175 Balance 206.950 -842.151 154.333 Weight 146.1 kg Intake: IV 405.0 220 20 Furosemide 250 mg In 75 Sodium Chloride 0.9% 225 ml @ 5 MG/HR 5 mls/hr IVP .Q24H [facility] Rx#:[id number] KVO 260 220 20 Piperacillin-Tazobactam 3 70.0 .375 gm In Dextrose/Water 1 50ml.bag @ 12.5 mls/hr IVPB Q8HR [facility] Rx#: [id number] Intake, IV Titration 571.950 222.849 309.333 Amount Furosemide 250 mg In 250 209.333 Sodium Chloride 0.9% 225 ml @ 5 MG/HR 5 mls/hr IVP .Q24H [facility] Rx#:[id number] Insulin Regular 100 unit 121.950 122.849 In Sodium Chloride 0.9% 100 ml @ Per Protocol IV .Q0M [facility] Rx#:[id number] Propofol 1,000 mg In 200.000 100 100 Empty Bag 1 bag @ Titrate IV .Q0M [facility] Rx#: [id number] Tube Feeding 900 240 Other 90 Output: Urine 1760 1525 175 Other: Voiding Method Indwelling Catheter Indwelling Catheter ABP, PAP, CO, CI - Last Documented Arterial Blood Pressure 174/55 - Constitutional General appearance: Present: morbidly obese, no acute distress - Respiratory Details: Lungs sounds diminished bilaterally, respirations even, nonlabored on mechanical ventilation. Current ventilator settings assist control mode, FiO2 50%, tidal by 500, respiratory rate 26, PEEP 10. 7.5 ET tube present, 23 at the lip. - Cardiovascular Details: S1, S2 present. Regular rate and rhythm, sinus rhythm on telemetry. Palpable peripheral pulses bilaterally. Trace generalized edema still present. No calf pain or tenderness noted. SCDs present. Left radial arterial line, right groin triple-lumen central line present. - Gastrointestinal Gastrointestinal Comment(s): Abdomen is soft, very round. Hypoactive bowel sounds present 4 quadrants. No bowel movement since surgery. OG tube present, tube feeding infusing at 60 mL an hour, minimal residual per nursing. - Genitourinary Genitourinary Comment(s): Boothe present draining bloody urine. Output 100-150 mL/h overnight. - Integumentary Integumentary Comment(s): Skin is warm and dry. Right anterior neck incision well approximated, dressing removed, hematoma present but no increase in size. Multiple areas of ecchymosis present - Neurologic Neurologic Comment(s): Sedated on propofol. Patient currently opening his eyes to command. - Musculoskeletal Musculoskeletal: Present: generalized weakness - Allied health notes Allied health notes reviewed: nursing - Labs CBC & Chem 7: 05/12/17 04:00 05/12/17 04:00 Labs: Abnormal Lab Results - Last 24 Hours (Table) 05/11/17 05/11/17 05/11/17 Range/Units 04:15 09:26 10:20 WBC (3.8-10.6) k/uL RBC (4.30-5.90) m/uL Hgb (13.0-17.5) gm/dL Hct (39.0-53.0) % MCV (80.0-100.0) fL Neutrophils # (1.3-7.7) k/uL PT (9.0-12.0) sec INR (<1.2) ABG pH (7.35-7.45) ABG pO2 (83-108) mmHg ABG HCO3 (21-25) mmol/L ABG Total CO2 (19-24) mmol/L ABG O2 Saturation (94-97) % Carbon Dioxide (22-30) mmol/L BUN (9-20) mg/dL Creatinine (0.66-1.25) mg/dL Glucose (74-99) mg/dL POC Glucose (mg/dL) 182 H 183 H (75-99) mg/dL Iron 14 L (65-175) ug/dL Iron Saturation 5.19 L (15.00-50.00) AST (17-59) U/L Total Protein (6.3-8.2) g/dL Albumin (3.5-5.0) g/dL Urine Protein (Negative) Urine Blood (Negative) Ur Leukocyte Esterase (Negative) Urine RBC (0-5) /hpf Urine WBC (0-5) /hpf 05/11/17 05/11/17 05/11/17 Range/Units 12:03 12:30 12:53 WBC (3.8-10.6) k/uL RBC (4.30-5.90) m/uL Hgb (13.0-17.5) gm/dL Hct (39.0-53.0) % MCV (80.0-100.0) fL Neutrophils # (1.3-7.7) k/uL PT 14.2 H (9.0-12.0) sec INR 1.5 H (<1.2) ABG pH (7.35-7.45) ABG pO2 (83-108) mmHg ABG HCO3 (21-25) mmol/L ABG Total CO2 (19-24) mmol/L ABG O2 Saturation (94-97) % Carbon Dioxide (22-30) mmol/L BUN (9-20) mg/dL Creatinine (0.66-1.25) mg/dL Glucose (74-99) mg/dL POC Glucose (mg/dL) 171 H 194 H (75-99) mg/dL Iron (65-175) ug/dL Iron Saturation (15.00-50.00) AST (17-59) U/L Total Protein (6.3-8.2) g/dL Albumin (3.5-5.0) g/dL Urine Protein (Negative) Urine Blood (Negative) Ur Leukocyte Esterase (Negative) Urine RBC (0-5) /hpf Urine WBC (0-5) /hpf 05/11/17 05/11/17 05/11/17 Range/Units 14:15 14:40 15:39 WBC (3.8-10.6) k/uL RBC (4.30-5.90) m/uL Hgb (13.0-17.5) gm/dL Hct (39.0-53.0) % MCV (80.0-100.0) fL Neutrophils # (1.3-7.7) k/uL PT (9.0-12.0) sec INR (<1.2) ABG pH (7.35-7.45) ABG pO2 (83-108) mmHg ABG HCO3 (21-25) mmol/L ABG Total CO2 (19-24) mmol/L ABG O2 Saturation (94-97) % Carbon Dioxide (22-30) mmol/L BUN (9-20) mg/dL Creatinine (0.66-1.25) mg/dL Glucose (74-99) mg/dL POC Glucose (mg/dL) 204 H 164 H (75-99) mg/dL Iron (65-175) ug/dL Iron Saturation (15.00-50.00) AST (17-59) U/L Total Protein (6.3-8.2) g/dL Albumin (3.5-5.0) g/dL Urine Protein 1+ H (Negative) Urine Blood Moderate H (Negative) Ur Leukocyte Esterase Moderate H (Negative) Urine RBC >182 H (0-5) /hpf Urine WBC 66 H (0-5) /hpf 05/11/17 05/11/17 05/11/17 Range/Units 16:55 18:02 18:50 WBC (3.8-10.6) k/uL RBC (4.30-5.90) m/uL Hgb (13.0-17.5) gm/dL Hct (39.0-53.0) % MCV (80.0-100.0) fL Neutrophils # (1.3-7.7) k/uL PT (9.0-12.0) sec INR (<1.2) ABG pH (7.35-7.45) ABG pO2 (83-108) mmHg ABG HCO3 (21-25) mmol/L ABG Total CO2 (19-24) mmol/L ABG O2 Saturation (94-97) % Carbon Dioxide (22-30) mmol/L BUN (9-20) mg/dL Creatinine (0.66-1.25) mg/dL Glucose (74-99) mg/dL POC Glucose (mg/dL) 191 H 205 H 209 H (75-99) mg/dL Iron (65-175) ug/dL Iron Saturation (15.00-50.00) AST (17-59) U/L Total Protein (6.3-8.2) g/dL Albumin (3.5-5.0) g/dL Urine Protein (Negative) Urine Blood (Negative) Ur Leukocyte Esterase (Negative) Urine RBC (0-5) /hpf Urine WBC (0-5) /hpf 05/11/17 05/11/17 05/11/17 Range/Units 20:11 21:09 22:20 WBC (3.8-10.6) k/uL RBC (4.30-5.90) m/uL Hgb (13.0-17.5) gm/dL Hct (39.0-53.0) % MCV (80.0-100.0) fL Neutrophils # (1.3-7.7) k/uL PT (9.0-12.0) sec INR (<1.2) ABG pH (7.35-7.45) ABG pO2 (83-108) mmHg ABG HCO3 (21-25) mmol/L ABG Total CO2 (19-24) mmol/L ABG O2 Saturation (94-97) % Carbon Dioxide (22-30) mmol/L BUN (9-20) mg/dL Creatinine (0.66-1.25) mg/dL Glucose (74-99) mg/dL POC Glucose (mg/dL) 186 H 186 H 167 H (75-99) mg/dL Iron (65-175) ug/dL Iron Saturation (15.00-50.00) AST (17-59) U/L Total Protein (6.3-8.2) g/dL Albumin (3.5-5.0) g/dL Urine Protein (Negative) Urine Blood (Negative) Ur Leukocyte Esterase (Negative) Urine RBC (0-5) /hpf Urine WBC (0-5) /hpf 05/11/17 05/12/17 05/12/17 Range/Units 23:03 00:06 01:21 WBC (3.8-10.6) k/uL RBC (4.30-5.90) m/uL Hgb (13.0-17.5) gm/dL Hct (39.0-53.0) % MCV (80.0-100.0) fL Neutrophils # (1.3-7.7) k/uL PT (9.0-12.0) sec INR (<1.2) ABG pH (7.35-7.45) ABG pO2 (83-108) mmHg ABG HCO3 (21-25) mmol/L ABG Total CO2 (19-24) mmol/L ABG O2 Saturation (94-97) % Carbon Dioxide (22-30) mmol/L BUN (9-20) mg/dL Creatinine (0.66-1.25) mg/dL Glucose (74-99) mg/dL POC Glucose (mg/dL) 168 H 181 H 164 H (75-99) mg/dL Iron (65-175) ug/dL Iron Saturation (15.00-50.00) AST (17-59) U/L Total Protein (6.3-8.2) g/dL Albumin (3.5-5.0) g/dL Urine Protein (Negative) Urine Blood (Negative) Ur Leukocyte Esterase (Negative) Urine RBC (0-5) /hpf Urine WBC (0-5) /hpf 05/12/17 05/12/17 05/12/17 Range/Units 02:56 04:00 04:00 WBC 12.2 H (3.8-10.6) k/uL RBC 2.63 L (4.30-5.90) m/uL Hgb 8.9 L (13.0-17.5) gm/dL Hct 26.6 L (39.0-53.0) % MCV 101.1 H (80.0-100.0) fL Neutrophils # 9.3 H (1.3-7.7) k/uL PT 13.1 H (9.0-12.0) sec INR 1.4 H (<1.2) ABG pH (7.35-7.45) ABG pO2 (83-108) mmHg ABG HCO3 (21-25) mmol/L ABG Total CO2 (19-24) mmol/L ABG O2 Saturation (94-97) % Carbon Dioxide (22-30) mmol/L BUN (9-20) mg/dL Creatinine (0.66-1.25) mg/dL Glucose (74-99) mg/dL POC Glucose (mg/dL) 151 H (75-99) mg/dL Iron (65-175) ug/dL Iron Saturation (15.00-50.00) AST (17-59) U/L Total Protein (6.3-8.2) g/dL Albumin (3.5-5.0) g/dL Urine Protein (Negative) Urine Blood (Negative) Ur Leukocyte Esterase (Negative) Urine RBC (0-5) /hpf Urine WBC (0-5) /hpf 05/12/17 05/12/17 05/12/17 Range/Units 04:00 04:09 05:04 WBC (3.8-10.6) k/uL RBC (4.30-5.90) m/uL Hgb (13.0-17.5) gm/dL Hct (39.0-53.0) % MCV (80.0-100.0) fL Neutrophils # (1.3-7.7) k/uL PT (9.0-12.0) sec INR (<1.2) ABG pH 7.49 H (7.35-7.45) ABG pO2 74 L (83-108) mmHg ABG HCO3 31 H (21-25) mmol/L ABG Total CO2 32 H (19-24) mmol/L ABG O2 Saturation 93.9 L (94-97) % Carbon Dioxide 31 H (22-30) mmol/L BUN 99 H* (9-20) mg/dL Creatinine 3.10 H (0.66-1.25) mg/dL Glucose 156 H (74-99) mg/dL POC Glucose (mg/dL) 171 H (75-99) mg/dL Iron (65-175) ug/dL Iron Saturation (15.00-50.00) AST 65 H (17-59) U/L Total Protein 5.9 L (6.3-8.2) g/dL Albumin 3.1 L (3.5-5.0) g/dL Urine Protein (Negative) Urine Blood (Negative) Ur Leukocyte Esterase (Negative) Urine RBC (0-5) /hpf Urine WBC (0-5) /hpf 05/12/17 05/12/17 05/12/17 Range/Units 05:58 07:06 08:00 WBC (3.8-10.6) k/uL RBC (4.30-5.90) m/uL Hgb (13.0-17.5) gm/dL Hct (39.0-53.0) % MCV (80.0-100.0) fL Neutrophils # (1.3-7.7) k/uL PT (9.0-12.0) sec INR (<1.2) ABG pH (7.35-7.45) ABG pO2 (83-108) mmHg ABG HCO3 (21-25) mmol/L ABG Total CO2 (19-24) mmol/L ABG O2 Saturation (94-97) % Carbon Dioxide (22-30) mmol/L BUN (9-20) mg/dL Creatinine (0.66-1.25) mg/dL Glucose (74-99) mg/dL POC Glucose (mg/dL) 144 H 161 H 146 H (75-99) mg/dL Iron (65-175) ug/dL Iron Saturation (15.00-50.00) AST (17-59) U/L Total Protein (6.3-8.2) g/dL Albumin (3.5-5.0) g/dL Urine Protein (Negative) Urine Blood (Negative) Ur Leukocyte Esterase (Negative) Urine RBC (0-5) /hpf Urine WBC (0-5) /hpf Microbiology - Last 24 Hours (Table) 05/09/17 09:12 Blood Culture - Preliminary Blood No Growth after 48 hours 05/09/17 04:18 Gram Stain - Final Sputum Sputum Culture - Final - Imaging and Cardiology Chest x-ray: report reviewed, image reviewed Assessment and Plan (1) Cardiopulmonary arrest with successful resuscitation Current Visit: Yes Status: Acute Code(s): I46.9 - CARDIAC ARREST, CAUSE UNSPECIFIED SNOMED Code(s): 255141286 (2) Diabetes mellitus type 2 in obese Current Visit: Yes Status: Chronic Code(s): E11.69 - TYPE 2 DIABETES MELLITUS WITH OTHER SPECIFIED COMPLICATION; E66.9 - OBESITY, UNSPECIFIED SNOMED Code(s): 21569427 (3) GERD (gastroesophageal reflux disease) Current Visit: Yes Status: Chronic Code(s): K21.9 - GASTRO-ESOPHAGEAL REFLUX DISEASE WITHOUT ESOPHAGITIS SNOMED Code(s): 347728230 (4) Gout Current Visit: Yes Status: Chronic Code(s): M10.9 - GOUT, UNSPECIFIED SNOMED Code(s): 90833642 (5) History of coronary artery disease Current Visit: Yes Status: Chronic Code(s): Z86.79 - PERSONAL HISTORY OF OTHER DISEASES OF THE CIRCULATORY SYSTEM SNOMED Code(s): 866941186 (6) Hyperlipidemia Current Visit: Yes Status: Chronic Code(s): E78.5 - HYPERLIPIDEMIA, UNSPECIFIED SNOMED Code(s): 70745328 (7) Hypertension Current Visit: Yes Status: Chronic Code(s): I10 - ESSENTIAL (PRIMARY) HYPERTENSION SNOMED Code(s): 22728642 (8) Morbid obesity Current Visit: Yes Status: Chronic Code(s): E66.01 - MORBID (SEVERE) OBESITY DUE TO EXCESS CALORIES SNOMED Code(s): 410478117 (9) Obstructive sleep apnea Current Visit: Yes Status: Chronic Code(s): G47.33 - OBSTRUCTIVE SLEEP APNEA (ADULT) (PEDIATRIC) SNOMED Code(s): 88090130 (10) Paroxysmal atrial fibrillation Current Visit: Yes Status: Chronic Code(s): I48.0 - PAROXYSMAL ATRIAL FIBRILLATION SNOMED Code(s): 060874220 (11) Stenosis of right carotid artery Current Visit: Yes Status: Chronic Code(s): I65.21 - OCCLUSION AND STENOSIS OF RIGHT CAROTID ARTERY SNOMED Code(s): 969966352626315 Plan: 1. Continue current medical management per primary care service. 2. Cardiology management for post myocardial infarction, cardiopulmonary arrest. 3. Ventilator management per pulmonology. 4. GI/DVT prophylaxis. 5. Will continue to monitor daily labs and x-rays. 6. Maintain stable blood pressure. 7. Patient's condition remains guarded. 8. Dressing removed from right carotid endarterectomy site, ice applied, will continue to monitor. Time with Patient: Greater than 30 <Spencer Juárez - Last Filed: 05/12/17 10:34> Subjective [employer] notes reviewed and excepted. Status and condition remained guarded. Continue medical management. Objective - Vital Signs Vital signs: Vital Signs Temp 98.0 F 05/12/17 08:00 Pulse 77 05/12/17 10:00 Resp 23 05/12/17 10:00 BP 112/53 05/11/17 01:00 Pulse Ox 94 L 05/12/17 10:00 Intake & Output 05/11/17 05/12/17 05/12/17 18:59 06:59 18:59 Intake Total 1966.950 682.849 784.133 Output Total 1760 1525 1075 Balance 206.950 -842.151 -290.867 Weight 146.1 kg Intake: IV 405.0 220 117.5 Furosemide 250 mg In 75 Sodium Chloride 0.9% 225 ml @ 5 MG/HR 5 mls/hr IVP .Q24H [facility] Rx#:[id number] KVO 260 220 80 Piperacillin-Tazobactam 3 70.0 37.5 .375 gm In Dextrose/Water 1 50ml.bag @ 12.5 mls/hr IVPB Q8HR [facility] Rx#: [id number] Intake, IV Titration 571.950 222.849 341.633 Amount Furosemide 250 mg In 250 209.333 Sodium Chloride 0.9% 225 ml @ 5 MG/HR 5 mls/hr IVP .Q24H [facility] Rx#:[id number] Insulin Regular 100 unit 121.950 122.849 32.3 In Sodium Chloride 0.9% 100 ml @ Per Protocol IV .Q0M [facility] Rx#:[id number] Propofol 1,000 mg In 200.000 100 100 Empty Bag 1 bag @ Titrate IV .Q0M [facility] Rx#: [id number] Oral 145 Tube Feeding 900 240 180 Other 90 Output: Urine 1760 1525 1075 Other: Voiding Method Indwelling Catheter Indwelling Catheter Indwelling Catheter ABP, PAP, CO, CI - Last Documented Arterial Blood Pressure 139/45 - Labs CBC & Chem 7: 05/12/17 04:00 05/12/17 04:00 Labs: Abnormal Lab Results - Last 24 Hours (Table) 05/11/17 05/11/17 05/11/17 Range/Units 04:15 12:03 12:30 WBC (3.8-10.6) k/uL RBC (4.30-5.90) m/uL Hgb (13.0-17.5) gm/dL Hct (39.0-53.0) % MCV (80.0-100.0) fL Neutrophils # (1.3-7.7) k/uL PT 14.2 H (9.0-12.0) sec INR 1.5 H (<1.2) ABG pH (7.35-7.45) ABG pO2 (83-108) mmHg ABG HCO3 (21-25) mmol/L ABG Total CO2 (19-24) mmol/L ABG O2 Saturation (94-97) % Carbon Dioxide (22-30) mmol/L BUN (9-20) mg/dL Creatinine (0.66-1.25) mg/dL Glucose (74-99) mg/dL POC Glucose (mg/dL) 171 H (75-99) mg/dL Iron 14 L (65-175) ug/dL Iron Saturation 5.19 L (15.00-50.00) AST (17-59) U/L Total Protein (6.3-8.2) g/dL Albumin (3.5-5.0) g/dL Urine Protein (Negative) Urine Blood (Negative) Ur Leukocyte Esterase (Negative) Urine RBC (0-5) /hpf Urine WBC (0-5) /hpf 05/11/17 05/11/17 05/11/17 Range/Units 12:53 14:15 14:40 WBC (3.8-10.6) k/uL RBC (4.30-5.90) m/uL Hgb (13.0-17.5) gm/dL Hct (39.0-53.0) % MCV (80.0-100.0) fL Neutrophils # (1.3-7.7) k/uL PT (9.0-12.0) sec INR (<1.2) ABG pH (7.35-7.45) ABG pO2 (83-108) mmHg ABG HCO3 (21-25) mmol/L ABG Total CO2 (19-24) mmol/L ABG O2 Saturation (94-97) % Carbon Dioxide (22-30) mmol/L BUN (9-20) mg/dL Creatinine (0.66-1.25) mg/dL Glucose (74-99) mg/dL POC Glucose (mg/dL) 194 H 204 H (75-99) mg/dL Iron (65-175) ug/dL Iron Saturation (15.00-50.00) AST (17-59) U/L Total Protein (6.3-8.2) g/dL Albumin (3.5-5.0) g/dL Urine Protein 1+ H (Negative) Urine Blood Moderate H (Negative) Ur Leukocyte Esterase Moderate H (Negative) Urine RBC >182 H (0-5) /hpf Urine WBC 66 H (0-5) /hpf 05/11/17 05/11/17 05/11/17 Range/Units 15:39 16:55 18:02 WBC (3.8-10.6) k/uL RBC (4.30-5.90) m/uL Hgb (13.0-17.5) gm/dL Hct (39.0-53.0) % MCV (80.0-100.0) fL Neutrophils # (1.3-7.7) k/uL PT (9.0-12.0) sec INR (<1.2) ABG pH (7.35-7.45) ABG pO2 (83-108) mmHg ABG HCO3 (21-25) mmol/L ABG Total CO2 (19-24) mmol/L ABG O2 Saturation (94-97) % Carbon Dioxide (22-30) mmol/L BUN (9-20) mg/dL Creatinine (0.66-1.25) mg/dL Glucose (74-99) mg/dL POC Glucose (mg/dL) 164 H 191 H 205 H (75-99) mg/dL Iron (65-175) ug/dL Iron Saturation (15.00-50.00) AST (17-59) U/L Total Protein (6.3-8.2) g/dL Albumin (3.5-5.0) g/dL Urine Protein (Negative) Urine Blood (Negative) Ur Leukocyte Esterase (Negative) Urine RBC (0-5) /hpf Urine WBC (0-5) /hpf 05/11/17 05/11/17 05/11/17 Range/Units 18:50 20:11 21:09 WBC (3.8-10.6) k/uL RBC (4.30-5.90) m/uL Hgb (13.0-17.5) gm/dL Hct (39.0-53.0) % MCV (80.0-100.0) fL Neutrophils # (1.3-7.7) k/uL PT (9.0-12.0) sec INR (<1.2) ABG pH (7.35-7.45) ABG pO2 (83-108) mmHg ABG HCO3 (21-25) mmol/L ABG Total CO2 (19-24) mmol/L ABG O2 Saturation (94-97) % Carbon Dioxide (22-30) mmol/L BUN (9-20) mg/dL Creatinine (0.66-1.25) mg/dL Glucose (74-99) mg/dL POC Glucose (mg/dL) 209 H 186 H 186 H (75-99) mg/dL Iron (65-175) ug/dL Iron Saturation (15.00-50.00) AST (17-59) U/L Total Protein (6.3-8.2) g/dL Albumin (3.5-5.0) g/dL Urine Protein (Negative) Urine Blood (Negative) Ur Leukocyte Esterase (Negative) Urine RBC (0-5) /hpf Urine WBC (0-5) /hpf 05/11/17 05/11/17 05/12/17 Range/Units 22:20 23:03 00:06 WBC (3.8-10.6) k/uL RBC (4.30-5.90) m/uL Hgb (13.0-17.5) gm/dL Hct (39.0-53.0) % MCV (80.0-100.0) fL Neutrophils # (1.3-7.7) k/uL PT (9.0-12.0) sec INR (<1.2) ABG pH (7.35-7.45) ABG pO2 (83-108) mmHg ABG HCO3 (21-25) mmol/L ABG Total CO2 (19-24) mmol/L ABG O2 Saturation (94-97) % Carbon Dioxide (22-30) mmol/L BUN (9-20) mg/dL Creatinine (0.66-1.25) mg/dL Glucose (74-99) mg/dL POC Glucose (mg/dL) 167 H 168 H 181 H (75-99) mg/dL Iron (65-175) ug/dL Iron Saturation (15.00-50.00) AST (17-59) U/L Total Protein (6.3-8.2) g/dL Albumin (3.5-5.0) g/dL Urine Protein (Negative) Urine Blood (Negative) Ur Leukocyte Esterase (Negative) Urine RBC (0-5) /hpf Urine WBC (0-5) /hpf 05/12/17 05/12/17 05/12/17 Range/Units 01:21 02:56 04:00 WBC (3.8-10.6) k/uL RBC (4.30-5.90) m/uL Hgb (13.0-17.5) gm/dL Hct (39.0-53.0) % MCV (80.0-100.0) fL Neutrophils # (1.3-7.7) k/uL PT 13.1 H (9.0-12.0) sec INR 1.4 H (<1.2) ABG pH (7.35-7.45) ABG pO2 (83-108) mmHg ABG HCO3 (21-25) mmol/L ABG Total CO2 (19-24) mmol/L ABG O2 Saturation (94-97) % Carbon Dioxide (22-30) mmol/L BUN (9-20) mg/dL Creatinine (0.66-1.25) mg/dL Glucose (74-99) mg/dL POC Glucose (mg/dL) 164 H 151 H (75-99) mg/dL Iron (65-175) ug/dL Iron Saturation (15.00-50.00) AST (17-59) U/L Total Protein (6.3-8.2) g/dL Albumin (3.5-5.0) g/dL Urine Protein (Negative) Urine Blood (Negative) Ur Leukocyte Esterase (Negative) Urine RBC (0-5) /hpf Urine WBC (0-5) /hpf 05/12/17 05/12/17 05/12/17 Range/Units 04:00 04:00 04:09 WBC 12.2 H (3.8-10.6) k/uL RBC 2.63 L (4.30-5.90) m/uL Hgb 8.9 L (13.0-17.5) gm/dL Hct 26.6 L (39.0-53.0) % MCV 101.1 H (80.0-100.0) fL Neutrophils # 9.3 H (1.3-7.7) k/uL PT (9.0-12.0) sec INR (<1.2) ABG pH (7.35-7.45) ABG pO2 (83-108) mmHg ABG HCO3 (21-25) mmol/L ABG Total CO2 (19-24) mmol/L ABG O2 Saturation (94-97) % Carbon Dioxide 31 H (22-30) mmol/L BUN 99 H* (9-20) mg/dL Creatinine 3.10 H (0.66-1.25) mg/dL Glucose 156 H (74-99) mg/dL POC Glucose (mg/dL) 171 H (75-99) mg/dL Iron (65-175) ug/dL Iron Saturation (15.00-50.00) AST 65 H (17-59) U/L Total Protein 5.9 L (6.3-8.2) g/dL Albumin 3.1 L (3.5-5.0) g/dL Urine Protein (Negative) Urine Blood (Negative) Ur Leukocyte Esterase (Negative) Urine RBC (0-5) /hpf Urine WBC (0-5) /hpf 05/12/17 05/12/17 05/12/17 Range/Units 05:04 05:58 07:06 WBC (3.8-10.6) k/uL RBC (4.30-5.90) m/uL Hgb (13.0-17.5) gm/dL Hct (39.0-53.0) % MCV (80.0-100.0) fL Neutrophils # (1.3-7.7) k/uL PT (9.0-12.0) sec INR (<1.2) ABG pH 7.49 H (7.35-7.45) ABG pO2 74 L (83-108) mmHg ABG HCO3 31 H (21-25) mmol/L ABG Total CO2 32 H (19-24) mmol/L ABG O2 Saturation 93.9 L (94-97) % Carbon Dioxide (22-30) mmol/L BUN (9-20) mg/dL Creatinine (0.66-1.25) mg/dL Glucose (74-99) mg/dL POC Glucose (mg/dL) 144 H 161 H (75-99) mg/dL Iron (65-175) ug/dL Iron Saturation (15.00-50.00) AST (17-59) U/L Total Protein (6.3-8.2) g/dL Albumin (3.5-5.0) g/dL Urine Protein (Negative) Urine Blood (Negative) Ur Leukocyte Esterase (Negative) Urine RBC (0-5) /hpf Urine WBC (0-5) /hpf 05/12/17 05/12/17 Range/Units 08:00 09:58 WBC (3.8-10.6) k/uL RBC (4.30-5.90) m/uL Hgb (13.0-17.5) gm/dL Hct (39.0-53.0) % MCV (80.0-100.0) fL Neutrophils # (1.3-7.7) k/uL PT (9.0-12.0) sec INR (<1.2) ABG pH (7.35-7.45) ABG pO2 (83-108) mmHg ABG HCO3 (21-25) mmol/L ABG Total CO2 (19-24) mmol/L ABG O2 Saturation (94-97) % Carbon Dioxide (22-30) mmol/L BUN (9-20) mg/dL Creatinine (0.66-1.25) mg/dL Glucose (74-99) mg/dL POC Glucose (mg/dL) 146 H 181 H (75-99) mg/dL Iron (65-175) ug/dL Iron Saturation (15.00-50.00) AST (17-59) U/L Total Protein (6.3-8.2) g/dL Albumin (3.5-5.0) g/dL Urine Protein (Negative) Urine Blood (Negative) Ur Leukocyte Esterase (Negative) Urine RBC (0-5) /hpf Urine WBC (0-5) /hpf Microbiology - Last 24 Hours (Table) 05/09/17 09:12 Blood Culture - Preliminary Blood No Growth after 48 hours 05/09/17 04:18 Gram Stain - Final Sputum Sputum Culture - Final
--- NOTE | 2017-05-12 09:36 | P.PN ---
Subjective Progress Note Date: 05/12/17 This is a 76-year-old male patient with status post carotid endarterectomy on the right and the patient is postop day #6. Note that the patient went into acute cardio pulmonary arrest postop day #2 and he was done with initially acute respiratory arrest and subsequent cardiac arrest for a total of 30 minutes during which the patient received a total of 10 mg of epinephrine and 2 A of bicarb and subsequently the patient was intubated and placed on mechanical ventilator and since then the patient has remained intubated. On today's evaluation of 05/11/2017, the patient is sedated on Diprivan at 45 mg per KG pigmented. The patient is heavily sedated. He occasionally bites the tube and he withdraws to some stimulation to his lower extremities bilaterally. Hemodynamically, the patient is on no pressors. The patient is still in pulmonary edema and his chest x-ray and the patient is currently on Lasix drip at 10 mg an hour. Urine output is more than 100 mL an hour daily basis. The urine is somewhat bloody as the patient had some bleeding related to Pradaxa intake and Pradaxa is currently off. The patient is on assist- control mode of ventilation at the rate of 26, tidal volume 500, FiO2 of 50% and a PEEP of 15. The blood gases from this morning showed a pH of 7.49, with a pCO2 of 39 and pO2 of 113. The chest x-ray still showing pulmonary edema. Minimal amount of bloody secretions from his orotracheal tube. He is synchronous with the mechanical ventilator. Breath sounds are equal and symmetrical bilaterally. Echocardiogram showed an ejection fraction of less than 20%. The patient is still in acute kidney injury. Creatinine is up to 3.3 yet he is nonoliguric at this stage and nephrology is on the case. We are going to continue the Lasix drip at the same rate for now. The patient is being controlled with an insulin drip in regards to his blood sugar. The patient has not been given any sedation holiday since his cardiac/pulmonary arrest. The patient is on tube feeds and receding vital high protein at the rate of 60 mL an hour. Otherwise, no other significant events overnight. The CAT scan of the brain that was obtained on showed no acute abnormalities are then chronic cerebral atrophy. The patient has a hematoma over the right neck area which is currently stable and soft and the incision site is clean. On 05/13/2079 I'm seeing this patient for a follow-up in the patient was given a sedation holiday and he is opening up his eyes. He is not following any simple commands yet. No preferential gaze. No nystagmus. No agitation. He is doing some limited activity as far as movement in his upper extremities. He has a decent cough. The patient has no seizure activity. Incision over the right neck is clean and dry and the ecchymosis and hematoma over the right neck area soft and has not progressed. He is afebrile. He is on a mechanical ventilator. The PEEP has been drop down to 10 with an FiO2 of 50% and the patient remains on a tidal volume of 500 with a rate of 26. Chest x-ray shows some improvement in the volume status. The blood gases from today showed a pH of 7.49 with a pCO2 of 40 and pO2 of 74. The patient is on IV Lasix 60 mg every 8 hours. He is getting into a negative fluid balance. Hematuria is also improving. Otherwise the patient is producing adequate amount of urine output. Creatinine today is at 3.1 which is stable and not worse compared to yesterday. He is afebrile. He is tolerating his tube feeds. He was given a Dulcolax suppository. He is on no pressors. No other significant events overnight. Family is at the bedside. Objective - Vital Signs Vital signs: Vital Signs Temp 98.0 F 05/12/17 08:00 Pulse 83 05/12/17 09:00 Resp 21 05/12/17 09:00 BP 112/53 05/11/17 01:00 Pulse Ox 98 05/12/17 09:00 Intake & Output 05/11/17 05/12/17 05/12/17 18:59 06:59 18:59 Intake Total 1966.950 682.849 329.333 Output Total 1760 1525 175 Balance 206.950 -842.151 154.333 Weight 146.1 kg Intake: IV 405.0 220 20 Furosemide 250 mg In 75 Sodium Chloride 0.9% 225 ml @ 5 MG/HR 5 mls/hr IVP .Q24H JOS[facility] MIGUEL Rx#:[id number] KVO 260 220 20 Piperacillin-Tazobactam 3 70.0 .375 gm In Dextrose/Water 1 50ml.bag @ 12.5 mls/hr IVPB Q8HR JOS[facility] MIGUEL Rx#: [id number] Intake, IV Titration 571.950 222.849 309.333 Amount Furosemide 250 mg In 250 209.333 Sodium Chloride 0.9% 225 ml @ 5 MG/HR 5 mls/hr IVP .Q24H JOS[facility] MIGUEL Rx#:[id number] Insulin Regular 100 unit 121.950 122.849 In Sodium Chloride 0.9% 100 ml @ Per Protocol IV .Q0M JOS[facility] MIGUEL Rx#:[id number] Propofol 1,000 mg In 200.000 100 100 Empty Bag 1 bag @ Titrate IV .Q0M JOSÉ MIGUEL Rx#: [id number] Tube Feeding 900 240 Other 90 Output: Urine 1760 1525 175 Other: Voiding Method Indwelling Catheter Indwelling Catheter ABP, PAP, CO, CI - Last Documented Arterial Blood Pressure 174/55 - Exam No acute distress, sedated, with an orally placed endotracheal tube and NG tube. The patient is laying comfortably in bed and he is morbidly obese. The patient is in the process of being given a sedation holiday. The patient is waking up slowly and he is opening his eyes spontaneously. He is not following commands yet. No nystagmus pain no preferential gaze. Pupils are equal and reactive to light. There is no seizure activity. No agitation. HEENT examination is grossly unremarkable. Mucous membranes are moist. No oral lesions. A hematoma can be visualized all over the neck area, APPLYING mainly the right neck area and the incision site is clean. The hematoma itself is soft and non-enlarging at this point. Neck supple. Full range of motion. No adenopathy thyromegaly or neck vein distention. There is tremendous bruising and ecchymoses about the neck from the recent surgery. It's more right than left-sided. There hematoma is stable for now. Cardiovascular examination reveals regular rhythm rate. S1-S2 normal. No S3 or S4. No discernible murmur noted. Heart sounds are distant. Lungs reveal diffuse bilateral rhonchi. Breath sounds are diminished. Some bibasilar crackles. No wheezes. Abdomen soft bowel sounds are heard. No masses or tenderness. Extremities are intact. No cyanosis clubbing or edema. Skin is without rash or lesion. Neurologic examination could not be adequately performed. The patient is sedated. Pupils are about 4 mm inside and they're reactive to light. There is no nystagmus. With also some stimulation to the lower extremities bilaterally beginning his toes. No Babinski. No clonus. - Labs CBC & Chem 7: 05/12/17 04:00 05/12/17 04:00 Labs: Abnormal Lab Results - Last 24 Hours (Table) 05/11/17 05/11/17 05/11/17 Range/Units 04:15 09:26 10:20 WBC (3.8-10.6) k/uL RBC (4.30-5.90) m/uL Hgb (13.0-17.5) gm/dL Hct (39.0-53.0) % MCV (80.0-100.0) fL Neutrophils # (1.3-7.7) k/uL PT (9.0-12.0) sec INR (<1.2) ABG pH (7.35-7.45) ABG pO2 (83-108) mmHg ABG HCO3 (21-25) mmol/L ABG Total CO2 (19-24) mmol/L ABG O2 Saturation (94-97) % Carbon Dioxide (22-30) mmol/L BUN (9-20) mg/dL Creatinine (0.66-1.25) mg/dL Glucose (74-99) mg/dL POC Glucose (mg/dL) 182 H 183 H (75-99) mg/dL Iron 14 L (65-175) ug/dL Iron Saturation 5.19 L (15.00-50.00) AST (17-59) U/L Total Protein (6.3-8.2) g/dL Albumin (3.5-5.0) g/dL Urine Protein (Negative) Urine Blood (Negative) Ur Leukocyte Esterase (Negative) Urine RBC (0-5) /hpf Urine WBC (0-5) /hpf 05/11/17 05/11/17 05/11/17 Range/Units 12:03 12:30 12:53 WBC (3.8-10.6) k/uL RBC (4.30-5.90) m/uL Hgb (13.0-17.5) gm/dL Hct (39.0-53.0) % MCV (80.0-100.0) fL Neutrophils # (1.3-7.7) k/uL PT 14.2 H (9.0-12.0) sec INR 1.5 H (<1.2) ABG pH (7.35-7.45) ABG pO2 (83-108) mmHg ABG HCO3 (21-25) mmol/L ABG Total CO2 (19-24) mmol/L ABG O2 Saturation (94-97) % Carbon Dioxide (22-30) mmol/L BUN (9-20) mg/dL Creatinine (0.66-1.25) mg/dL Glucose (74-99) mg/dL POC Glucose (mg/dL) 171 H 194 H (75-99) mg/dL Iron (65-175) ug/dL Iron Saturation (15.00-50.00) AST (17-59) U/L Total Protein (6.3-8.2) g/dL Albumin (3.5-5.0) g/dL Urine Protein (Negative) Urine Blood (Negative) Ur Leukocyte Esterase (Negative) Urine RBC (0-5) /hpf Urine WBC (0-5) /hpf 05/11/17 05/11/17 05/11/17 Range/Units 14:15 14:40 15:39 WBC (3.8-10.6) k/uL RBC (4.30-5.90) m/uL Hgb (13.0-17.5) gm/dL Hct (39.0-53.0) % MCV (80.0-100.0) fL Neutrophils # (1.3-7.7) k/uL PT (9.0-12.0) sec INR (<1.2) ABG pH (7.35-7.45) ABG pO2 (83-108) mmHg ABG HCO3 (21-25) mmol/L ABG Total CO2 (19-24) mmol/L ABG O2 Saturation (94-97) % Carbon Dioxide (22-30) mmol/L BUN (9-20) mg/dL Creatinine (0.66-1.25) mg/dL Glucose (74-99) mg/dL POC Glucose (mg/dL) 204 H 164 H (75-99) mg/dL Iron (65-175) ug/dL Iron Saturation (15.00-50.00) AST (17-59) U/L Total Protein (6.3-8.2) g/dL Albumin (3.5-5.0) g/dL Urine Protein 1+ H (Negative) Urine Blood Moderate H (Negative) Ur Leukocyte Esterase Moderate H (Negative) Urine RBC >182 H (0-5) /hpf Urine WBC 66 H (0-5) /hpf 05/11/17 05/11/17 05/11/17 Range/Units 16:55 18:02 18:50 WBC (3.8-10.6) k/uL RBC (4.30-5.90) m/uL Hgb (13.0-17.5) gm/dL Hct (39.0-53.0) % MCV (80.0-100.0) fL Neutrophils # (1.3-7.7) k/uL PT (9.0-12.0) sec INR (<1.2) ABG pH (7.35-7.45) ABG pO2 (83-108) mmHg ABG HCO3 (21-25) mmol/L ABG Total CO2 (19-24) mmol/L ABG O2 Saturation (94-97) % Carbon Dioxide (22-30) mmol/L BUN (9-20) mg/dL Creatinine (0.66-1.25) mg/dL Glucose (74-99) mg/dL POC Glucose (mg/dL) 191 H 205 H 209 H (75-99) mg/dL Iron (65-175) ug/dL Iron Saturation (15.00-50.00) AST (17-59) U/L Total Protein (6.3-8.2) g/dL Albumin (3.5-5.0) g/dL Urine Protein (Negative) Urine Blood (Negative) Ur Leukocyte Esterase (Negative) Urine RBC (0-5) /hpf Urine WBC (0-5) /hpf 05/11/17 05/11/17 05/11/17 Range/Units 20:11 21:09 22:20 WBC (3.8-10.6) k/uL RBC (4.30-5.90) m/uL Hgb (13.0-17.5) gm/dL Hct (39.0-53.0) % MCV (80.0-100.0) fL Neutrophils # (1.3-7.7) k/uL PT (9.0-12.0) sec INR (<1.2) ABG pH (7.35-7.45) ABG pO2 (83-108) mmHg ABG HCO3 (21-25) mmol/L ABG Total CO2 (19-24) mmol/L ABG O2 Saturation (94-97) % Carbon Dioxide (22-30) mmol/L BUN (9-20) mg/dL Creatinine (0.66-1.25) mg/dL Glucose (74-99) mg/dL POC Glucose (mg/dL) 186 H 186 H 167 H (75-99) mg/dL Iron (65-175) ug/dL Iron Saturation (15.00-50.00) AST (17-59) U/L Total Protein (6.3-8.2) g/dL Albumin (3.5-5.0) g/dL Urine Protein (Negative) Urine Blood (Negative) Ur Leukocyte Esterase (Negative) Urine RBC (0-5) /hpf Urine WBC (0-5) /hpf 05/11/17 05/12/17 05/12/17 Range/Units 23:03 00:06 01:21 WBC (3.8-10.6) k/uL RBC (4.30-5.90) m/uL Hgb (13.0-17.5) gm/dL Hct (39.0-53.0) % MCV (80.0-100.0) fL Neutrophils # (1.3-7.7) k/uL PT (9.0-12.0) sec INR (<1.2) ABG pH (7.35-7.45) ABG pO2 (83-108) mmHg ABG HCO3 (21-25) mmol/L ABG Total CO2 (19-24) mmol/L ABG O2 Saturation (94-97) % Carbon Dioxide (22-30) mmol/L BUN (9-20) mg/dL Creatinine (0.66-1.25) mg/dL Glucose (74-99) mg/dL POC Glucose (mg/dL) 168 H 181 H 164 H (75-99) mg/dL Iron (65-175) ug/dL Iron Saturation (15.00-50.00) AST (17-59) U/L Total Protein (6.3-8.2) g/dL Albumin (3.5-5.0) g/dL Urine Protein (Negative) Urine Blood (Negative) Ur Leukocyte Esterase (Negative) Urine RBC (0-5) /hpf Urine WBC (0-5) /hpf 05/12/17 05/12/17 05/12/17 Range/Units 02:56 04:00 04:00 WBC 12.2 H (3.8-10.6) k/uL RBC 2.63 L (4.30-5.90) m/uL Hgb 8.9 L (13.0-17.5) gm/dL Hct 26.6 L (39.0-53.0) % MCV 101.1 H (80.0-100.0) fL Neutrophils # 9.3 H (1.3-7.7) k/uL PT 13.1 H (9.0-12.0) sec INR 1.4 H (<1.2) ABG pH (7.35-7.45) ABG pO2 (83-108) mmHg ABG HCO3 (21-25) mmol/L ABG Total CO2 (19-24) mmol/L ABG O2 Saturation (94-97) % Carbon Dioxide (22-30) mmol/L BUN (9-20) mg/dL Creatinine (0.66-1.25) mg/dL Glucose (74-99) mg/dL POC Glucose (mg/dL) 151 H (75-99) mg/dL Iron (65-175) ug/dL Iron Saturation (15.00-50.00) AST (17-59) U/L Total Protein (6.3-8.2) g/dL Albumin (3.5-5.0) g/dL Urine Protein (Negative) Urine Blood (Negative) Ur Leukocyte Esterase (Negative) Urine RBC (0-5) /hpf Urine WBC (0-5) /hpf 05/12/17 05/12/17 05/12/17 Range/Units 04:00 04:09 05:04 WBC (3.8-10.6) k/uL RBC (4.30-5.90) m/uL Hgb (13.0-17.5) gm/dL Hct (39.0-53.0) % MCV (80.0-100.0) fL Neutrophils # (1.3-7.7) k/uL PT (9.0-12.0) sec INR (<1.2) ABG pH 7.49 H (7.35-7.45) ABG pO2 74 L (83-108) mmHg ABG HCO3 31 H (21-25) mmol/L ABG Total CO2 32 H (19-24) mmol/L ABG O2 Saturation 93.9 L (94-97) % Carbon Dioxide 31 H (22-30) mmol/L BUN 99 H* (9-20) mg/dL Creatinine 3.10 H (0.66-1.25) mg/dL Glucose 156 H (74-99) mg/dL POC Glucose (mg/dL) 171 H (75-99) mg/dL Iron (65-175) ug/dL Iron Saturation (15.00-50.00) AST 65 H (17-59) U/L Total Protein 5.9 L (6.3-8.2) g/dL Albumin 3.1 L (3.5-5.0) g/dL Urine Protein (Negative) Urine Blood (Negative) Ur Leukocyte Esterase (Negative) Urine RBC (0-5) /hpf Urine WBC (0-5) /hpf 05/12/17 05/12/17 05/12/17 Range/Units 05:58 07:06 08:00 WBC (3.8-10.6) k/uL RBC (4.30-5.90) m/uL Hgb (13.0-17.5) gm/dL Hct (39.0-53.0) % MCV (80.0-100.0) fL Neutrophils # (1.3-7.7) k/uL PT (9.0-12.0) sec INR (<1.2) ABG pH (7.35-7.45) ABG pO2 (83-108) mmHg ABG HCO3 (21-25) mmol/L ABG Total CO2 (19-24) mmol/L ABG O2 Saturation (94-97) % Carbon Dioxide (22-30) mmol/L BUN (9-20) mg/dL Creatinine (0.66-1.25) mg/dL Glucose (74-99) mg/dL POC Glucose (mg/dL) 144 H 161 H 146 H (75-99) mg/dL Iron (65-175) ug/dL Iron Saturation (15.00-50.00) AST (17-59) U/L Total Protein (6.3-8.2) g/dL Albumin (3.5-5.0) g/dL Urine Protein (Negative) Urine Blood (Negative) Ur Leukocyte Esterase (Negative) Urine RBC (0-5) /hpf Urine WBC (0-5) /hpf Microbiology - Last 24 Hours (Table) 05/09/17 09:12 Blood Culture - Preliminary Blood No Growth after 48 hours 05/09/17 04:18 Gram Stain - Final Sputum Sputum Culture - Final Assessment and Plan Plan: Assessment 1 right carotid endarterectomy and the patient is postop day #7 2 acute cardio pulmonary arrest. This is most like an acute pulmonary edema for by cardiac arrest and the patient had a downtime of at least 25 minutes. He received a total of 10mgrams epinephrine and bicarb currently intubated on a mechanical ventilator. 3 CHF with an ejection fraction of less than 20% 4 suspected acute non-STEMI with ST segment depression and some mild troponin leak that peaked at 2.8 with underlying history of coronary artery disease 5 acute kidney injury, rule out ATN related to prolonged cardiopulmonary arrest and the patient is nonoliguric , creatinine is stable and the patient is also on IV Lasix. 6 acute respiratory failure secondary to above 7 diabetes mellitus currently on insulin drip for blood sugar control 8 possible hypoxic/anoxic encephalopathy secondary to above-mentioned comorbidities and complications 9 obstructive sleep apnea 10 hypertension 11 hyperlipidemia 12 morbid obesity 13 gout 14 hematoma over the neck especially over the right anterior neck area with a clean incision, postsurgical To get further by the intake of anticoagulants 15 mild hematuria Plan Continue daily sedation holidays. The patient is currently off Diprivan and will keep him off Diprivan as long as he's not agitated and the rest of the hemodynamics and oxygenation remained stable. I'm going to cut down the PEEP down to 8. Do not IV Lasix. Continue Zosyn as an empiric antibiotic coverage. Continue Zaroxolyn 10 mg by mouth twice a day. Nephrology is on the case. Monitor renal function. Continue enteral feeding for nutritional support. Not ready for weaning yet. The chest x-ray from today was reviewed. There is some improvement in the volume status. No other issues for now. Cardiology is also on the case. We'll continue to follow make further recommendations is on his overall progress. The hematoma of the neck is unchanged compared to yesterday. The patient is off Pradaxa. Family was updated on the condition. This is a critically care evaluation was done in 32 minutes. Time with Patient: Greater than 30
--- NOTE | 2017-05-12 09:50 | P.PN ---
Subjective Progress Note Date: 05/12/17 76-year-old male who underwent elective right carotid endarterectomy with patch angioplasty on 05/06/[address] Mckenzie was consulted for medical management. The patient has a history of bilateral carotid stenosis, atrial fibrillation, coronary disease, diabetes mellitus, gastroesophageal reflux disease, hyperlipidemia, hypertension, osteoarthritis, and sleep apnea. 05/07/2017 The patient was seen and examined in the intensive care unit on rounds Dr. Mckenzie. The patient is sitting up in the chair. Family is at the bedside. The patient remains on a nitro drip at 60 mcg/min. Systolic blood pressures ranging in the 140s. The patient is complaining of pain at the surgical site. Dressing is in place. Swelling is noted near surgical site. Patient denies shortness of breath or coughing. Denies chest pain or pressure. Denies nausea or vomiting. States he is tolerating PO intake well without nausea or vomiting. 05/08/2017 Patient remains in intensive care unit. He is postop day #2 right carotid endarterectomy. The patient is sitting up in the chair. the patient's nitro drip has been weaned off. He was started on Norvasc 10 mg daily yesterday along with hydralazine 50 mg by mouth 3 times a day. Patients blood sugars remain elevated in the 200s. Patient utilizes an insulin pump at home. Patient 's insulin pump is currently not with him as it was empty and patient's was going to bring his insulin pump back to the hospital after she refilled it. patient remains on 6 L nasal cannula with oxygen saturations greater than 92%. He denies shortness of breath. Denies chest pain or pressure. Tolerating by mouth intake without nausea or vomiting. WBC 13.2. Hemoglobin 10.6. BUN 38. Creatinine 1.40. 05/09/2017-Notes per Dr. Mckenzie 05/10/2017-Notes per Dr. Mckenzie 05/11/2017 Patient seen and examined at the bedside on rounds with Dr. Corona. Patient went into cardiac arrest on 05/08/2017 and was successfully resuscitated after approximately 20 minutes of CPR. Patient remains intubated in the intensive care unit on mechanical ventilation. Patient is currently on IV propofol secondary to patient biting on his ET tube and bucking the ventilator. Sedation holiday has not been performed per nursing secondary to hemodynamic instability. Patient remains on 50% FiO2. Patient has required vasopressor secondary to hypotension. Levophed is currently off this morning. Chest x-ray this morning reveals mild cardio megaly with persistent central bilateral perihilar edema and/or infiltrates. ARDS is not excluded. Patient remains on Lasix drip. Patient also remains on insulin drip. Creatinine this morning is 3.30. Nephrology is on consult. Patient underwent CT of the brain which was negative for an acute process. 05/11/2017 Patient seen and examined at the bedside on rounds with Dr. Corona. Patient remains intubated in the intensive care unit. Family at the bedside. Patient sedation has been held for approximately 40 minutes. Patient is not following commands but is moving all extremities. Patient's eyes are open but patient is not tracking currently. Tube feedings are infusing. Patient is tolerating well. Patient has not had a bowel movement per nursing and just received a rectal suppository. Patient remains on insulin drip. Currently at 8.5 units an hour. Lasix drip was discontinued this morning per nephrology. Creatinine 3.10 this morning. Urinary output remains adequate. Hematuria is improving. Blood pressure is currently elevated in the 170s which may be secondary to agitation as sedation has been on hold. Nursing reports blood pressure has been running in the 140s when patient is sedated. Objective - Vital Signs Vital signs: Vital Signs Temp 98.0 F 05/12/17 08:00 Pulse 83 05/12/17 09:00 Resp 21 05/12/17 09:00 BP 112/53 05/11/17 01:00 Pulse Ox 98 05/12/17 09:00 Intake & Output 05/11/17 05/12/17 05/12/17 18:59 06:59 18:59 Intake Total 1966.950 682.849 329.333 Output Total 1760 1525 175 Balance 206.950 -842.151 154.333 Weight 146.1 kg Intake: IV 405.0 220 20 Furosemide 250 mg In 75 Sodium Chloride 0.9% 225 ml @ 5 MG/HR 5 mls/hr IVP .Q24H [facility] Rx#:[id number] KVO 260 220 20 Piperacillin-Tazobactam 3 70.0 .375 gm In Dextrose/Water 1 50ml.bag @ 12.5 mls/hr IVPB Q8HR [facility] Rx#: [id number] Intake, IV Titration 571.950 222.849 309.333 Amount Furosemide 250 mg In 250 209.333 Sodium Chloride 0.9% 225 ml @ 5 MG/HR 5 mls/hr IVP .Q24H [facility] Rx#:[id number] Insulin Regular 100 unit 121.950 122.849 In Sodium Chloride 0.9% 100 ml @ Per Protocol IV .Q0M [facility] Rx#:[id number] Propofol 1,000 mg In 200.000 100 100 Empty Bag 1 bag @ Titrate IV .Q0M [facility] Rx#: [id number] Tube Feeding 900 240 Other 90 Output: Urine 1760 1525 175 Other: Voiding Method Indwelling Catheter Indwelling Catheter ABP, PAP, CO, CI - Last Documented Arterial Blood Pressure 174/55 - Exam GENERAL: This is a 76-year-old male who remains on mechanical ventilation in the intensive care unit. HEENT: ET tube noted. Head is atraumatic, normocephalic. Pupils are equal, round, and reactive to light. Sclerae anicteric. Conjunctivae are clear. Mucus membranes of the mouth are moist. Neck is supple. Extensive ecchymosis noted throughout neck. RESPIRATORY: ET tube noted. Diminished with rhonchi throughout. Patient maintaining oxygen saturation greater than 92% on mechanical ventilation with 50 % FiO2. No chest wall tenderness is noted on palpation or with deep breathing. CARDIOVASCULAR: Regular rate and rhythm. S1 and S2 noted. No systolic or diastolic murmur auscultated. No JVD noted. No S3 or S4 noted. GASTROINTESTINAL: No distention noted. Abdomen soft and round. Normal active bowel sounds auscultated x 4 quadrants. No pain or tenderness noted upon palpation. INTEGUMENTARY: Dressing noted to right neck. No drainage noted. Clean dry and intact. Ecchymosis noted around surgical area. No cyanosis. No jaundice. EXTREMITIES: 2+ peripheral pulses. No evidence of peripheral edema. No calf tenderness noted. NEUROLOGIC/PSYCHIATRIC: Unable to assess thoroughly secondary secondary to sedation and mechanical ventilation. Patient does open his eyes and moves all extremities. Does not follow commands. - Labs CBC & Chem 7: 05/12/17 04:00 05/12/17 04:00 Labs: Abnormal Lab Results - Last 24 Hours (Table) 05/11/17 05/11/17 05/11/17 Range/Units 04:15 10:20 12:03 WBC (3.8-10.6) k/uL RBC (4.30-5.90) m/uL Hgb (13.0-17.5) gm/dL Hct (39.0-53.0) % MCV (80.0-100.0) fL Neutrophils # (1.3-7.7) k/uL PT (9.0-12.0) sec INR (<1.2) ABG pH (7.35-7.45) ABG pO2 (83-108) mmHg ABG HCO3 (21-25) mmol/L ABG Total CO2 (19-24) mmol/L ABG O2 Saturation (94-97) % Carbon Dioxide (22-30) mmol/L BUN (9-20) mg/dL Creatinine (0.66-1.25) mg/dL Glucose (74-99) mg/dL POC Glucose (mg/dL) 183 H 171 H (75-99) mg/dL Iron 14 L (65-175) ug/dL Iron Saturation 5.19 L (15.00-50.00) AST (17-59) U/L Total Protein (6.3-8.2) g/dL Albumin (3.5-5.0) g/dL Urine Protein (Negative) Urine Blood (Negative) Ur Leukocyte Esterase (Negative) Urine RBC (0-5) /hpf Urine WBC (0-5) /hpf 05/11/17 05/11/17 05/11/17 Range/Units 12:30 12:53 14:15 WBC (3.8-10.6) k/uL RBC (4.30-5.90) m/uL Hgb (13.0-17.5) gm/dL Hct (39.0-53.0) % MCV (80.0-100.0) fL Neutrophils # (1.3-7.7) k/uL PT 14.2 H (9.0-12.0) sec INR 1.5 H (<1.2) ABG pH (7.35-7.45) ABG pO2 (83-108) mmHg ABG HCO3 (21-25) mmol/L ABG Total CO2 (19-24) mmol/L ABG O2 Saturation (94-97) % Carbon Dioxide (22-30) mmol/L BUN (9-20) mg/dL Creatinine (0.66-1.25) mg/dL Glucose (74-99) mg/dL POC Glucose (mg/dL) 194 H 204 H (75-99) mg/dL Iron (65-175) ug/dL Iron Saturation (15.00-50.00) AST (17-59) U/L Total Protein (6.3-8.2) g/dL Albumin (3.5-5.0) g/dL Urine Protein (Negative) Urine Blood (Negative) Ur Leukocyte Esterase (Negative) Urine RBC (0-5) /hpf Urine WBC (0-5) /hpf 05/11/17 05/11/17 05/11/17 Range/Units 14:40 15:39 16:55 WBC (3.8-10.6) k/uL RBC (4.30-5.90) m/uL Hgb (13.0-17.5) gm/dL Hct (39.0-53.0) % MCV (80.0-100.0) fL Neutrophils # (1.3-7.7) k/uL PT (9.0-12.0) sec INR (<1.2) ABG pH (7.35-7.45) ABG pO2 (83-108) mmHg ABG HCO3 (21-25) mmol/L ABG Total CO2 (19-24) mmol/L ABG O2 Saturation (94-97) % Carbon Dioxide (22-30) mmol/L BUN (9-20) mg/dL Creatinine (0.66-1.25) mg/dL Glucose (74-99) mg/dL POC Glucose (mg/dL) 164 H 191 H (75-99) mg/dL Iron (65-175) ug/dL Iron Saturation (15.00-50.00) AST (17-59) U/L Total Protein (6.3-8.2) g/dL Albumin (3.5-5.0) g/dL Urine Protein 1+ H (Negative) Urine Blood Moderate H (Negative) Ur Leukocyte Esterase Moderate H (Negative) Urine RBC >182 H (0-5) /hpf Urine WBC 66 H (0-5) /hpf 05/11/17 05/11/17 05/11/17 Range/Units 18:02 18:50 20:11 WBC (3.8-10.6) k/uL RBC (4.30-5.90) m/uL Hgb (13.0-17.5) gm/dL Hct (39.0-53.0) % MCV (80.0-100.0) fL Neutrophils # (1.3-7.7) k/uL PT (9.0-12.0) sec INR (<1.2) ABG pH (7.35-7.45) ABG pO2 (83-108) mmHg ABG HCO3 (21-25) mmol/L ABG Total CO2 (19-24) mmol/L ABG O2 Saturation (94-97) % Carbon Dioxide (22-30) mmol/L BUN (9-20) mg/dL Creatinine (0.66-1.25) mg/dL Glucose (74-99) mg/dL POC Glucose (mg/dL) 205 H 209 H 186 H (75-99) mg/dL Iron (65-175) ug/dL Iron Saturation (15.00-50.00) AST (17-59) U/L Total Protein (6.3-8.2) g/dL Albumin (3.5-5.0) g/dL Urine Protein (Negative) Urine Blood (Negative) Ur Leukocyte Esterase (Negative) Urine RBC (0-5) /hpf Urine WBC (0-5) /hpf 05/11/17 05/11/17 05/11/17 Range/Units 21:09 22:20 23:03 WBC (3.8-10.6) k/uL RBC (4.30-5.90) m/uL Hgb (13.0-17.5) gm/dL Hct (39.0-53.0) % MCV (80.0-100.0) fL Neutrophils # (1.3-7.7) k/uL PT (9.0-12.0) sec INR (<1.2) ABG pH (7.35-7.45) ABG pO2 (83-108) mmHg ABG HCO3 (21-25) mmol/L ABG Total CO2 (19-24) mmol/L ABG O2 Saturation (94-97) % Carbon Dioxide (22-30) mmol/L BUN (9-20) mg/dL Creatinine (0.66-1.25) mg/dL Glucose (74-99) mg/dL POC Glucose (mg/dL) 186 H 167 H 168 H (75-99) mg/dL Iron (65-175) ug/dL Iron Saturation (15.00-50.00) AST (17-59) U/L Total Protein (6.3-8.2) g/dL Albumin (3.5-5.0) g/dL Urine Protein (Negative) Urine Blood (Negative) Ur Leukocyte Esterase (Negative) Urine RBC (0-5) /hpf Urine WBC (0-5) /hpf 05/12/17 05/12/17 05/12/17 Range/Units 00:06 01:21 02:56 WBC (3.8-10.6) k/uL RBC (4.30-5.90) m/uL Hgb (13.0-17.5) gm/dL Hct (39.0-53.0) % MCV (80.0-100.0) fL Neutrophils # (1.3-7.7) k/uL PT (9.0-12.0) sec INR (<1.2) ABG pH (7.35-7.45) ABG pO2 (83-108) mmHg ABG HCO3 (21-25) mmol/L ABG Total CO2 (19-24) mmol/L ABG O2 Saturation (94-97) % Carbon Dioxide (22-30) mmol/L BUN (9-20) mg/dL Creatinine (0.66-1.25) mg/dL Glucose (74-99) mg/dL POC Glucose (mg/dL) 181 H 164 H 151 H (75-99) mg/dL Iron (65-175) ug/dL Iron Saturation (15.00-50.00) AST (17-59) U/L Total Protein (6.3-8.2) g/dL Albumin (3.5-5.0) g/dL Urine Protein (Negative) Urine Blood (Negative) Ur Leukocyte Esterase (Negative) Urine RBC (0-5) /hpf Urine WBC (0-5) /hpf 05/12/17 05/12/17 05/12/17 Range/Units 04:00 04:00 04:00 WBC 12.2 H (3.8-10.6) k/uL RBC 2.63 L (4.30-5.90) m/uL Hgb 8.9 L (13.0-17.5) gm/dL Hct 26.6 L (39.0-53.0) % MCV 101.1 H (80.0-100.0) fL Neutrophils # 9.3 H (1.3-7.7) k/uL PT 13.1 H (9.0-12.0) sec INR 1.4 H (<1.2) ABG pH (7.35-7.45) ABG pO2 (83-108) mmHg ABG HCO3 (21-25) mmol/L ABG Total CO2 (19-24) mmol/L ABG O2 Saturation (94-97) % Carbon Dioxide 31 H (22-30) mmol/L BUN 99 H* (9-20) mg/dL Creatinine 3.10 H (0.66-1.25) mg/dL Glucose 156 H (74-99) mg/dL POC Glucose (mg/dL) (75-99) mg/dL Iron (65-175) ug/dL Iron Saturation (15.00-50.00) AST 65 H (17-59) U/L Total Protein 5.9 L (6.3-8.2) g/dL Albumin 3.1 L (3.5-5.0) g/dL Urine Protein (Negative) Urine Blood (Negative) Ur Leukocyte Esterase (Negative) Urine RBC (0-5) /hpf Urine WBC (0-5) /hpf 05/12/17 05/12/17 05/12/17 Range/Units 04:09 05:04 05:58 WBC (3.8-10.6) k/uL RBC (4.30-5.90) m/uL Hgb (13.0-17.5) gm/dL Hct (39.0-53.0) % MCV (80.0-100.0) fL Neutrophils # (1.3-7.7) k/uL PT (9.0-12.0) sec INR (<1.2) ABG pH 7.49 H (7.35-7.45) ABG pO2 74 L (83-108) mmHg ABG HCO3 31 H (21-25) mmol/L ABG Total CO2 32 H (19-24) mmol/L ABG O2 Saturation 93.9 L (94-97) % Carbon Dioxide (22-30) mmol/L BUN (9-20) mg/dL Creatinine (0.66-1.25) mg/dL Glucose (74-99) mg/dL POC Glucose (mg/dL) 171 H 144 H (75-99) mg/dL Iron (65-175) ug/dL Iron Saturation (15.00-50.00) AST (17-59) U/L Total Protein (6.3-8.2) g/dL Albumin (3.5-5.0) g/dL Urine Protein (Negative) Urine Blood (Negative) Ur Leukocyte Esterase (Negative) Urine RBC (0-5) /hpf Urine WBC (0-5) /hpf 05/12/17 05/12/17 Range/Units 07:06 08:00 WBC (3.8-10.6) k/uL RBC (4.30-5.90) m/uL Hgb (13.0-17.5) gm/dL Hct (39.0-53.0) % MCV (80.0-100.0) fL Neutrophils # (1.3-7.7) k/uL PT (9.0-12.0) sec INR (<1.2) ABG pH (7.35-7.45) ABG pO2 (83-108) mmHg ABG HCO3 (21-25) mmol/L ABG Total CO2 (19-24) mmol/L ABG O2 Saturation (94-97) % Carbon Dioxide (22-30) mmol/L BUN (9-20) mg/dL Creatinine (0.66-1.25) mg/dL Glucose (74-99) mg/dL POC Glucose (mg/dL) 161 H 146 H (75-99) mg/dL Iron (65-175) ug/dL Iron Saturation (15.00-50.00) AST (17-59) U/L Total Protein (6.3-8.2) g/dL Albumin (3.5-5.0) g/dL Urine Protein (Negative) Urine Blood (Negative) Ur Leukocyte Esterase (Negative) Urine RBC (0-5) /hpf Urine WBC (0-5) /hpf Microbiology - Last 24 Hours (Table) 05/09/17 09:12 Blood Culture - Preliminary Blood No Growth after 48 hours 05/09/17 04:18 Gram Stain - Final Sputum Sputum Culture - Final Assessment and Plan Plan: ASSESSMENT: Bilateral carotid stenosis, s/p right carotid endarterectomy, POD #7 Acute cardiopulmonary arrest requiring mechanical ventilation, likely secondary to acute pulmonary edema with a downtime of at least 20 minutes Acute exacerbation of systolic congestive heart failure, ejection fraction 20% Suspected acute non-ST elevated OK Acute kidney injury, suspect secondary to prolonged cardiopulmonary arrest Hypoxic/anoxic encephalopathy secondary to prolonged cardiopulmonary arrest Hypertension Diabetes mellitus, type II, utilizing insulin pump at home Coronary artery disease Atrial fibrillation, on snf anticoagulation with Pradaxa Hematuria, thought to be secondary to Pradaxa which has been placed on hold, improving Hyperlipidemia Osteoarthritis with previous multiple joint replacements Morbid obesity: BMI 42.8 PLAN: Continue ventilator management per Dr. Kimball Wean sedation as patient tolerates to assess neurological status Continue insulin drip per protocol Nephrology on consult Lasix drip discontinued per nephrology. Patient started on Lasix 60 mg IV every 8 hours Monitor blood pressure. Will add hydralazine PRN for hypertension Monitor hematuria. Continue to hold Pradaxa Continue tube feedings Home meds as appropriate Monitor labs GI prophylaxis: Protonix 40mg IV BID DVT prophylaxis: CONCEPCIÓN hose and Venodyne's to bilateral lower extremities Monitor vital signs and address as appropriate Further recommendations pending patient's course Nurse practitioner note has been reviewed by physician. Signing provider agrees with the documented findings, assessment, and plan of care.
[2017-05-12 10:00] LABS: Glucose,Whole Blood 181 mg/dL (75-99)
--- NOTE | 2017-05-12 11:15 | P.PN ---
Subjective Progress Note Date: 05/12/17 Principal diagnosis: 1. S/P R CEA 2. VDRF s/p Cardiac Arrest Patient off sedation this am. Per nursing patient stable, starting to move extremities. Still not responding to commands at this time. Family at bedside. Objective - Vital Signs Vital signs: Vital Signs Temp 98.0 F 05/12/17 08:00 Pulse 77 05/12/17 10:00 Resp 23 05/12/17 10:00 BP 112/53 05/11/17 01:00 Pulse Ox 94 L 05/12/17 10:00 Intake & Output 05/11/17 05/12/17 05/12/17 18:59 06:59 18:59 Intake Total 1966.950 682.849 784.133 Output Total 1760 1525 1075 Balance 206.950 -842.151 -290.867 Weight 146.1 kg 146.1 kg Intake: IV 405.0 220 117.5 Furosemide 250 mg In 75 Sodium Chloride 0.9% 225 ml @ 5 MG/HR 5 mls/hr IVP .Q24H [facility] Rx#:[id number] KVO 260 220 80 Piperacillin-Tazobactam 3 70.0 37.5 .375 gm In Dextrose/Water 1 50ml.bag @ 12.5 mls/hr IVPB Q8HR [facility] Rx#: [id number] Intake, IV Titration 571.950 222.849 341.633 Amount Furosemide 250 mg In 250 209.333 Sodium Chloride 0.9% 225 ml @ 5 MG/HR 5 mls/hr IVP .Q24H [facility] Rx#:[id number] Insulin Regular 100 unit 121.950 122.849 32.3 In Sodium Chloride 0.9% 100 ml @ Per Protocol IV .Q0M [facility] Rx#:[id number] Propofol 1,000 mg In 200.000 100 100 Empty Bag 1 bag @ Titrate IV .Q0M [facility] Rx#: [id number] Oral 145 Tube Feeding 900 240 180 Other 90 Output: Urine 1760 1525 1075 Other: Voiding Method Indwelling Catheter Indwelling Catheter Indwelling Catheter ABP, PAP, CO, CI - Last Documented Arterial Blood Pressure 139/45 - Exam Vented, off sedation, not responding to name. Does move his upper extremities occasionally. Neck with echymosis, incision clean, dry and intact. Small hematoma noted. - Labs CBC & Chem 7: 05/12/17 04:00 05/12/17 04:00 Labs: Abnormal Lab Results - Last 24 Hours (Table) 05/11/17 05/11/17 05/11/17 Range/Units 04:15 12:03 12:30 WBC (3.8-10.6) k/uL RBC (4.30-5.90) m/uL Hgb (13.0-17.5) gm/dL Hct (39.0-53.0) % MCV (80.0-100.0) fL Neutrophils # (1.3-7.7) k/uL PT 14.2 H (9.0-12.0) sec INR 1.5 H (<1.2) ABG pH (7.35-7.45) ABG pO2 (83-108) mmHg ABG HCO3 (21-25) mmol/L ABG Total CO2 (19-24) mmol/L ABG O2 Saturation (94-97) % Carbon Dioxide (22-30) mmol/L BUN (9-20) mg/dL Creatinine (0.66-1.25) mg/dL Glucose (74-99) mg/dL POC Glucose (mg/dL) 171 H (75-99) mg/dL Iron 14 L (65-175) ug/dL Iron Saturation 5.19 L (15.00-50.00) AST (17-59) U/L Total Protein (6.3-8.2) g/dL Albumin (3.5-5.0) g/dL Urine Protein (Negative) Urine Blood (Negative) Ur Leukocyte Esterase (Negative) Urine RBC (0-5) /hpf Urine WBC (0-5) /hpf 05/11/17 05/11/17 05/11/17 Range/Units 12:53 14:15 14:40 WBC (3.8-10.6) k/uL RBC (4.30-5.90) m/uL Hgb (13.0-17.5) gm/dL Hct (39.0-53.0) % MCV (80.0-100.0) fL Neutrophils # (1.3-7.7) k/uL PT (9.0-12.0) sec INR (<1.2) ABG pH (7.35-7.45) ABG pO2 (83-108) mmHg ABG HCO3 (21-25) mmol/L ABG Total CO2 (19-24) mmol/L ABG O2 Saturation (94-97) % Carbon Dioxide (22-30) mmol/L BUN (9-20) mg/dL Creatinine (0.66-1.25) mg/dL Glucose (74-99) mg/dL POC Glucose (mg/dL) 194 H 204 H (75-99) mg/dL Iron (65-175) ug/dL Iron Saturation (15.00-50.00) AST (17-59) U/L Total Protein (6.3-8.2) g/dL Albumin (3.5-5.0) g/dL Urine Protein 1+ H (Negative) Urine Blood Moderate H (Negative) Ur Leukocyte Esterase Moderate H (Negative) Urine RBC >182 H (0-5) /hpf Urine WBC 66 H (0-5) /hpf 05/11/17 05/11/17 05/11/17 Range/Units 15:39 16:55 18:02 WBC (3.8-10.6) k/uL RBC (4.30-5.90) m/uL Hgb (13.0-17.5) gm/dL Hct (39.0-53.0) % MCV (80.0-100.0) fL Neutrophils # (1.3-7.7) k/uL PT (9.0-12.0) sec INR (<1.2) ABG pH (7.35-7.45) ABG pO2 (83-108) mmHg ABG HCO3 (21-25) mmol/L ABG Total CO2 (19-24) mmol/L ABG O2 Saturation (94-97) % Carbon Dioxide (22-30) mmol/L BUN (9-20) mg/dL Creatinine (0.66-1.25) mg/dL Glucose (74-99) mg/dL POC Glucose (mg/dL) 164 H 191 H 205 H (75-99) mg/dL Iron (65-175) ug/dL Iron Saturation (15.00-50.00) AST (17-59) U/L Total Protein (6.3-8.2) g/dL Albumin (3.5-5.0) g/dL Urine Protein (Negative) Urine Blood (Negative) Ur Leukocyte Esterase (Negative) Urine RBC (0-5) /hpf Urine WBC (0-5) /hpf 05/11/17 05/11/17 05/11/17 Range/Units 18:50 20:11 21:09 WBC (3.8-10.6) k/uL RBC (4.30-5.90) m/uL Hgb (13.0-17.5) gm/dL Hct (39.0-53.0) % MCV (80.0-100.0) fL Neutrophils # (1.3-7.7) k/uL PT (9.0-12.0) sec INR (<1.2) ABG pH (7.35-7.45) ABG pO2 (83-108) mmHg ABG HCO3 (21-25) mmol/L ABG Total CO2 (19-24) mmol/L ABG O2 Saturation (94-97) % Carbon Dioxide (22-30) mmol/L BUN (9-20) mg/dL Creatinine (0.66-1.25) mg/dL Glucose (74-99) mg/dL POC Glucose (mg/dL) 209 H 186 H 186 H (75-99) mg/dL Iron (65-175) ug/dL Iron Saturation (15.00-50.00) AST (17-59) U/L Total Protein (6.3-8.2) g/dL Albumin (3.5-5.0) g/dL Urine Protein (Negative) Urine Blood (Negative) Ur Leukocyte Esterase (Negative) Urine RBC (0-5) /hpf Urine WBC (0-5) /hpf 05/11/17 05/11/17 05/12/17 Range/Units 22:20 23:03 00:06 WBC (3.8-10.6) k/uL RBC (4.30-5.90) m/uL Hgb (13.0-17.5) gm/dL Hct (39.0-53.0) % MCV (80.0-100.0) fL Neutrophils # (1.3-7.7) k/uL PT (9.0-12.0) sec INR (<1.2) ABG pH (7.35-7.45) ABG pO2 (83-108) mmHg ABG HCO3 (21-25) mmol/L ABG Total CO2 (19-24) mmol/L ABG O2 Saturation (94-97) % Carbon Dioxide (22-30) mmol/L BUN (9-20) mg/dL Creatinine (0.66-1.25) mg/dL Glucose (74-99) mg/dL POC Glucose (mg/dL) 167 H 168 H 181 H (75-99) mg/dL Iron (65-175) ug/dL Iron Saturation (15.00-50.00) AST (17-59) U/L Total Protein (6.3-8.2) g/dL Albumin (3.5-5.0) g/dL Urine Protein (Negative) Urine Blood (Negative) Ur Leukocyte Esterase (Negative) Urine RBC (0-5) /hpf Urine WBC (0-5) /hpf 05/12/1718 05/12/17 Range/Units 01:21 02:56 04:00 WBC (3.8-10.6) k/uL RBC (4.30-5.90) m/uL Hgb (13.0-17.5) gm/dL Hct (39.0-53.0) % MCV (80.0-100.0) fL Neutrophils # (1.3-7.7) k/uL PT 13.1 H (9.0-12.0) sec INR 1.4 H (<1.2) ABG pH (7.35-7.45) ABG pO2 (83-108) mmHg ABG HCO3 (21-25) mmol/L ABG Total CO2 (19-24) mmol/L ABG O2 Saturation (94-97) % Carbon Dioxide (22-30) mmol/L BUN (9-20) mg/dL Creatinine (0.66-1.25) mg/dL Glucose (74-99) mg/dL POC Glucose (mg/dL) 164 H 151 H (75-99) mg/dL Iron (65-175) ug/dL Iron Saturation (15.00-50.00) AST (17-59) U/L Total Protein (6.3-8.2) g/dL Albumin (3.5-5.0) g/dL Urine Protein (Negative) Urine Blood (Negative) Ur Leukocyte Esterase (Negative) Urine RBC (0-5) /hpf Urine WBC (0-5) /hpf 05/12/17 05/12/17 05/12/17 Range/Units 04:00 04:00 04:09 WBC 12.2 H (3.8-10.6) k/uL RBC 2.63 L (4.30-5.90) m/uL Hgb 8.9 L (13.0-17.5) gm/dL Hct 26.6 L (39.0-53.0) % MCV 101.1 H (80.0-100.0) fL Neutrophils # 9.3 H (1.3-7.7) k/uL PT (9.0-12.0) sec INR (<1.2) ABG pH (7.35-7.45) ABG pO2 (83-108) mmHg ABG HCO3 (21-25) mmol/L ABG Total CO2 (19-24) mmol/L ABG O2 Saturation (94-97) % Carbon Dioxide 31 H (22-30) mmol/L BUN 99 H* (9-20) mg/dL Creatinine 3.10 H (0.66-1.25) mg/dL Glucose 156 H (74-99) mg/dL POC Glucose (mg/dL) 171 H (75-99) mg/dL Iron (65-175) ug/dL Iron Saturation (15.00-50.00) AST 65 H (17-59) U/L Total Protein 5.9 L (6.3-8.2) g/dL Albumin 3.1 L (3.5-5.0) g/dL Urine Protein (Negative) Urine Blood (Negative) Ur Leukocyte Esterase (Negative) Urine RBC (0-5) /hpf Urine WBC (0-5) /hpf 05/12/17 05/12/17 05/12/17 Range/Units 05:04 05:58 07:06 WBC (3.8-10.6) k/uL RBC (4.30-5.90) m/uL Hgb (13.0-17.5) gm/dL Hct (39.0-53.0) % MCV (80.0-100.0) fL Neutrophils # (1.3-7.7) k/uL PT (9.0-12.0) sec INR (<1.2) ABG pH 7.49 H (7.35-7.45) ABG pO2 74 L (83-108) mmHg ABG HCO3 31 H (21-25) mmol/L ABG Total CO2 32 H (19-24) mmol/L ABG O2 Saturation 93.9 L (94-97) % Carbon Dioxide (22-30) mmol/L BUN (9-20) mg/dL Creatinine (0.66-1.25) mg/dL Glucose (74-99) mg/dL POC Glucose (mg/dL) 144 H 161 H (75-99) mg/dL Iron (65-175) ug/dL Iron Saturation (15.00-50.00) AST (17-59) U/L Total Protein (6.3-8.2) g/dL Albumin (3.5-5.0) g/dL Urine Protein (Negative) Urine Blood (Negative) Ur Leukocyte Esterase (Negative) Urine RBC (0-5) /hpf Urine WBC (0-5) /hpf 05/12/17 05/12/17 Range/Units 08:00 09:58 WBC (3.8-10.6) k/uL RBC (4.30-5.90) m/uL Hgb (13.0-17.5) gm/dL Hct (39.0-53.0) % MCV (80.0-100.0) fL Neutrophils # (1.3-7.7) k/uL PT (9.0-12.0) sec INR (<1.2) ABG pH (7.35-7.45) ABG pO2 (83-108) mmHg ABG HCO3 (21-25) mmol/L ABG Total CO2 (19-24) mmol/L ABG O2 Saturation (94-97) % Carbon Dioxide (22-30) mmol/L BUN (9-20) mg/dL Creatinine (0.66-1.25) mg/dL Glucose (74-99) mg/dL POC Glucose (mg/dL) 146 H 181 H (75-99) mg/dL Iron (65-175) ug/dL Iron Saturation (15.00-50.00) AST (17-59) U/L Total Protein (6.3-8.2) g/dL Albumin (3.5-5.0) g/dL Urine Protein (Negative) Urine Blood (Negative) Ur Leukocyte Esterase (Negative) Urine RBC (0-5) /hpf Urine WBC (0-5) /hpf Microbiology - Last 24 Hours (Table) 05/09/17 09:12 Blood Culture - Preliminary Blood No Growth after 48 hours 05/09/17 04:18 Gram Stain - Final Sputum Sputum Culture - Final Assessment and Plan Assessment: 1. s/p Right CEA 2. VDRF s/p cardiac arrest Plan: wean vent per ICU care team. surgical sites are stable, no intervention needed.
[2017-05-12 12:12] LABS: Glucose,Whole Blood 190 mg/dL (75-99)
[2017-05-12 14:13] LABS: Glucose,Whole Blood 198 mg/dL (75-99)
[2017-05-12] MEDS: FUROSEMIDE 10 MG/ML 10 ML VIAL IV SCH (15:10)
[2017-05-12 15:37] LABS: Glucose,Whole Blood 178 mg/dL (75-99)
[2017-05-12 16:39] LABS: Glucose,Whole Blood 164 mg/dL (75-99)
[2017-05-12 17:33] LABS: Glucose,Whole Blood 155 mg/dL (75-99)
[2017-05-12 18:25] LABS: Glucose,Whole Blood 146 mg/dL (75-99)
[2017-05-12 19:12] LABS: Glucose,Whole Blood 167 mg/dL (75-99)
[2017-05-12 20:55] LABS: Glucose,Whole Blood 181 mg/dL (75-99)
[2017-05-12] MEDS ORDERED: ACETAMINOPHEN IV (For NPO) 1,000 MG in EMPTY BAG 1 BAG IVPB PRN (21:06)
--- NOTE | 2017-05-12 21:13 | P.PN ---
Subjective Progress Note Date: 05/12/17 This patient is a 76-year-old male who was seen today in the intensive care unit. Patient had suffered a recent cardiopulmonary arrest a few days after undergoing a right carotid endarterectomy. The cardiac arrest occurred on day # 2 following right carotid endarterectomy. He remains intubated on the ventilator. The patient is postoperative day #7 following right carotid endarterectomy. The patient has remained on sedation holiday today. He is doing much better in that he is opening his eyes spontaneously. He is able to also not his head yes and no to questioning. Patient's son was at bedside and he is noted significant improvement for the patient today in terms of his ability to follow simple commands. The patient does have a slight fever today of 101.5. He will undergo further evaluation for this to rule out underlying sepsis. He did undergo a full cardiac arrest with the downtime estimated to be 25 minutes. He had evidence of a anoxic encephalopathy following the cardiac arrest. He did undergo routine EEG yesterday which revealed severe slowing with no epileptiform discharges. We have suggested to have a repeat EEG done to follow his progress. The patient is much more awake today and is following simple commands. We will continue close neurological follow-up this patient in the intensive care unit. Case was discussed today with the patient's son. All of his questions were answered. His overall prognosis remains guarded. Objective - Vital Signs Vital signs: Vital Signs Temp 99.3 F 05/12/17 14:00 Pulse 75 05/12/17 19:26 Resp 26 H 05/12/17 19:00 BP 112/53 05/11/17 01:00 Pulse Ox 97 05/12/17 19:00 Intake & Output 05/12/17 05/12/17 05/13/17 06:59 18:59 06:59 Intake Total 547.492 5791.566 93.333 Output Total 1525 4633 300 Balance -842.151 -3307.434 -206.667 Weight 146.1 kg 146.1 kg Intake: IV 220 290.0 20 KVO 220 240 20 Piperacillin-Tazobactam 3 50.0 .375 gm In Dextrose/Water 1 50ml.bag @ 12.5 mls/hr IVPB Q8HR [facility] Rx#: [id number] Intake, IV Titration 222.849 440.566 28.333 Amount Furosemide 250 mg In 209.333 Sodium Chloride 0.9% 225 ml @ 5 MG/HR 5 mls/hr IVP .Q24H [facility] Rx#:[id number] Insulin Regular 100 unit 122.849 106.233 15.833 In Sodium Chloride 0.9% 100 ml @ Per Protocol IV .Q0M [facility] Rx#:[id number] Piperacillin-Tazobactam 3 25.0 12.5 .375 gm In Dextrose/Water 1 50ml.bag @ 12.5 mls/hr IVPB Q12H [facility] Rx#: [id number] Propofol 1,000 mg In 100 100 Empty Bag 1 bag @ Titrate IV .Q0M [facility] Rx#: [id number] Oral 145 Tube Feeding 240 450 45 Output: Urine 1525 4633 300 Other: Voiding Method Indwelling Catheter Indwelling Catheter # Voids 2 # Bowel Movements 1 ABP, PAP, CO, CI - Last Documented Arterial Blood Pressure 153/53 - Exam Physical examination: PHYSICAL EXAMINATION: Patient is resting comfortably in bed. He is intubated on the ventilator with no sedation. VITAL SIGNS: Blood pressure is [164/49]. Heart rate is [74]. Respiration is [26] . Temperature is [101.5]. HEENT: Head is atraumatic, neck is supple, there were no carotid bruits. CHEST: Lungs are clear to auscultation and percussion. CARDIAC: S1, S2 normal rate and rhythm. There is no murmur. ABDOMEN: Soft and nontender. Bowel sounds are present. EXTREMITIES: There is no pedal edema. Peripheral pulses are present. Neurological examination: Patient remains intubated on the ventilator. He is more awake and alert today. He is following simple commands and does not his head. He remains off of sedation at this time. Cranial nerves II through XII are grossly intact. Deep tendon reflexes are 1+ and symmetric. Plantar responses flexor bilaterally. Patient is able to squeeze both hands slightly on command. - Labs CBC & Chem 7: 05/12/17 04:00 05/12/17 04:00 Labs: Abnormal Lab Results - Last 24 Hours (Table) 05/11/17 05/11/17 05/11/17 Range/Units 21:09 22:20 23:03 WBC (3.8-10.6) k/uL RBC (4.30-5.90) m/uL Hgb (13.0-17.5) gm/dL Hct (39.0-53.0) % MCV (80.0-100.0) fL Neutrophils # (1.3-7.7) k/uL PT (9.0-12.0) sec INR (<1.2) ABG pH (7.35-7.45) ABG pO2 (83-108) mmHg ABG HCO3 (21-25) mmol/L ABG Total CO2 (19-24) mmol/L ABG O2 Saturation (94-97) % Carbon Dioxide (22-30) mmol/L BUN (9-20) mg/dL Creatinine (0.66-1.25) mg/dL Glucose (74-99) mg/dL POC Glucose (mg/dL) 186 H 167 H 168 H (75-99) mg/dL AST (17-59) U/L Total Protein (6.3-8.2) g/dL Albumin (3.5-5.0) g/dL 05/12/17 05/12/17 05/12/17 Range/Units 00:06 01:21 02:56 WBC (3.8-10.6) k/uL RBC (4.30-5.90) m/uL Hgb (13.0-17.5) gm/dL Hct (39.0-53.0) % MCV (80.0-100.0) fL Neutrophils # (1.3-7.7) k/uL PT (9.0-12.0) sec INR (<1.2) ABG pH (7.35-7.45) ABG pO2 (83-108) mmHg ABG HCO3 (21-25) mmol/L ABG Total CO2 (19-24) mmol/L ABG O2 Saturation (94-97) % Carbon Dioxide (22-30) mmol/L BUN (9-20) mg/dL Creatinine (0.66-1.25) mg/dL Glucose (74-99) mg/dL POC Glucose (mg/dL) 181 H 164 H 151 H (75-99) mg/dL AST (17-59) U/L Total Protein (6.3-8.2) g/dL Albumin (3.5-5.0) g/dL 03/06/18 03/06/18 03/06/18 Range/Units 04:00 04:00 04:00 WBC 12.2 H (3.8-10.6) k/uL RBC 2.63 L (4.30-5.90) m/uL Hgb 8.9 L (13.0-17.5) gm/dL Hct 26.6 L (39.0-53.0) % MCV 101.1 H (80.0-100.0) fL Neutrophils # 9.3 H (1.3-7.7) k/uL PT 13.1 H (9.0-12.0) sec INR 1.4 H (<1.2) ABG pH (7.35-7.45) ABG pO2 (83-108) mmHg ABG HCO3 (21-25) mmol/L ABG Total CO2 (19-24) mmol/L ABG O2 Saturation (94-97) % Carbon Dioxide 31 H (22-30) mmol/L BUN 99 H* (9-20) mg/dL Creatinine 3.10 H (0.66-1.25) mg/dL Glucose 156 H (74-99) mg/dL POC Glucose (mg/dL) (75-99) mg/dL AST 65 H (17-59) U/L Total Protein 5.9 L (6.3-8.2) g/dL Albumin 3.1 L (3.5-5.0) g/dL 05/12/17 05/12/17 05/12/17 Range/Units 04:09 05:04 05:58 WBC (3.8-10.6) k/uL RBC (4.30-5.90) m/uL Hgb (13.0-17.5) gm/dL Hct (39.0-53.0) % MCV (80.0-100.0) fL Neutrophils # (1.3-7.7) k/uL PT (9.0-12.0) sec INR (<1.2) ABG pH 7.49 H (7.35-7.45) ABG pO2 74 L (83-108) mmHg ABG HCO3 31 H (21-25) mmol/L ABG Total CO2 32 H (19-24) mmol/L ABG O2 Saturation 93.9 L (94-97) % Carbon Dioxide (22-30) mmol/L BUN (9-20) mg/dL Creatinine (0.66-1.25) mg/dL Glucose (74-99) mg/dL POC Glucose (mg/dL) 171 H 144 H (75-99) mg/dL AST (17-59) U/L Total Protein (6.3-8.2) g/dL Albumin (3.5-5.0) g/dL 05/12/17 05/12/17 05/12/17 Range/Units 07:06 08:00 09:58 WBC (3.8-10.6) k/uL RBC (4.30-5.90) m/uL Hgb (13.0-17.5) gm/dL Hct (39.0-53.0) % MCV (80.0-100.0) fL Neutrophils # (1.3-7.7) k/uL PT (9.0-12.0) sec INR (<1.2) ABG pH (7.35-7.45) ABG pO2 (83-108) mmHg ABG HCO3 (21-25) mmol/L ABG Total CO2 (19-24) mmol/L ABG O2 Saturation (94-97) % Carbon Dioxide (22-30) mmol/L BUN (9-20) mg/dL Creatinine (0.66-1.25) mg/dL Glucose (74-99) mg/dL POC Glucose (mg/dL) 161 H 146 H 181 H (75-99) mg/dL AST (17-59) U/L Total Protein (6.3-8.2) g/dL Albumin (3.5-5.0) g/dL 05/12/17 05/12/17 05/12/17 Range/Units 12:09 14:08 15:10 WBC (3.8-10.6) k/uL RBC (4.30-5.90) m/uL Hgb (13.0-17.5) gm/dL Hct (39.0-53.0) % MCV (80.0-100.0) fL Neutrophils # (1.3-7.7) k/uL PT (9.0-12.0) sec INR (<1.2) ABG pH (7.35-7.45) ABG pO2 (83-108) mmHg ABG HCO3 (21-25) mmol/L ABG Total CO2 (19-24) mmol/L ABG O2 Saturation (94-97) % Carbon Dioxide (22-30) mmol/L BUN (9-20) mg/dL Creatinine (0.66-1.25) mg/dL Glucose (74-99) mg/dL POC Glucose (mg/dL) 190 H 198 H 178 H (75-99) mg/dL AST (17-59) U/L Total Protein (6.3-8.2) g/dL Albumin (3.5-5.0) g/dL 05/12/17 05/12/17 05/12/17 Range/Units 16:35 17:18 18:12 WBC (3.8-10.6) k/uL RBC (4.30-5.90) m/uL Hgb (13.0-17.5) gm/dL Hct (39.0-53.0) % MCV (80.0-100.0) fL Neutrophils # (1.3-7.7) k/uL PT (9.0-12.0) sec INR (<1.2) ABG pH (7.35-7.45) ABG pO2 (83-108) mmHg ABG HCO3 (21-25) mmol/L ABG Total CO2 (19-24) mmol/L ABG O2 Saturation (94-97) % Carbon Dioxide (22-30) mmol/L BUN (9-20) mg/dL Creatinine (0.66-1.25) mg/dL Glucose (74-99) mg/dL POC Glucose (mg/dL) 164 H 155 H 146 H (75-99) mg/dL AST (17-59) U/L Total Protein (6.3-8.2) g/dL Albumin (3.5-5.0) g/dL 05/12/17 Range/Units 18:57 WBC (3.8-10.6) k/uL RBC (4.30-5.90) m/uL Hgb (13.0-17.5) gm/dL Hct (39.0-53.0) % MCV (80.0-100.0) fL Neutrophils # (1.3-7.7) k/uL PT (9.0-12.0) sec INR (<1.2) ABG pH (7.35-7.45) ABG pO2 (83-108) mmHg ABG HCO3 (21-25) mmol/L ABG Total CO2 (19-24) mmol/L ABG O2 Saturation (94-97) % Carbon Dioxide (22-30) mmol/L BUN (9-20) mg/dL Creatinine (0.66-1.25) mg/dL Glucose (74-99) mg/dL POC Glucose (mg/dL) 167 H (75-99) mg/dL AST (17-59) U/L Total Protein (6.3-8.2) g/dL Albumin (3.5-5.0) g/dL Microbiology - Last 24 Hours (Table) 05/09/17 09:12 Blood Culture - Preliminary Blood No Growth after 72 hours Assessment and Plan (1) Cardiopulmonary arrest with successful resuscitation Current Visit: Yes Status: Acute Code(s): I46.9 - CARDIAC ARREST, CAUSE UNSPECIFIED SNOMED Code(s): 993655913 (2) Anoxic encephalopathy Current Visit: Yes Status: Acute Code(s): G93.1 - ANOXIC BRAIN DAMAGE, NOT ELSEWHERE CLASSIFIED SNOMED Code(s): 409583856 (3) History of right-sided carotid endarterectomy Current Visit: Yes Status: Acute Code(s): Z98.890 - OTHER SPECIFIED POSTPROCEDURAL STATES SNOMED Code(s): 706864705 (4) Diabetes mellitus type 2 in obese Current Visit: Yes Status: Chronic Code(s): E11.69 - TYPE 2 DIABETES MELLITUS WITH OTHER SPECIFIED COMPLICATION; E66.9 - OBESITY, UNSPECIFIED SNOMED Code(s): 45054148 (5) Paroxysmal atrial fibrillation Current Visit: Yes Status: Chronic Code(s): I48.0 - PAROXYSMAL ATRIAL FIBRILLATION SNOMED Code(s): 667709996 Plan: This patient is a 76-year-old male who is postoperative day #7 today following right carotid endarterectomy. He unfortunately suffered a cardiopulmonary arrest with a down time of at least 25 minutes 2 days following his carotid surgery. He has remained intubated on the ventilator. He was seen in neurology consultation yesterday and was less responsive than today. He underwent a routine EEG yesterday results of which are noted above. We are recommending a follow-up EEG as he continues to progress. He is much more awake and alert today and remains off of sedation at this time. His computed tomography scan of the brain failed to reveal any evidence of acute stroke or hemorrhage. We will continue close neurological follow-up for this patient in the intensive care unit. He is making good progress today in terms of his alertness and we will continue to follow him closely. He has suffered an acute anoxic encephalopathy following cardiac arrest. His condition is showing improvement today and we will continue to follow his progress during this admission.
--- NOTE | 2017-05-12 21:21 | PN ---
PROGRESS NOTE Patient is seen for followup for acute kidney injury secondary to ATN from hypotension and hypoperfusion. The patient also had severe volume overload and CHF and was maintained on Lasix drip. This was discontinued this morning. Patient continued to have good urine output. However, occasionally he has had clots and his catheter needed to be flushed. Sedation is currently on hold and patient is now awake, but remains on the vent. FiO2 is at 50%. EXAMINATION: Blood pressure is 153/53, heart rate 75 per minute. He is afebrile. HEART: S1, S2. LUNGS: Bilateral breath sounds are heard. Abdomen is soft, nontender. Lower extremities show edema 2+ bilaterally. 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 LABS: Show sodium 144, potassium 3.9, BUN 99, serum creatinine 3.1. Hemoglobin 8.9 g/dL. ASSESSMENT: 1. Acute kidney injury, acute tubular necrosis, nonoliguric currently slightly improved. I discontinued the Lasix drip this morning. Continue current dose of Lasix and repeat labs in a.m. 2. Congestive heart failure, acute systolic, with ejection fraction 20%, currently diuresing. 3. Ventilator-dependent respiratory failure secondary to pulmonary edema. 4. Status post right carotid endarterectomy. 5. Status post cardiopulmonary arrest with down time of about 25 minutes. PLAN: Continue current dose of Lasix. Repeat labs in a.m. Continue off of Lasix drip. Continue off of Pradaxa. Will likely decrease Zaroxolyn in a.m., depending upon his labs and chest x-ray. The patient is in a negative balance of about 1 L for 24 hours. MMODL / IJN: [id number] /
[2017-05-12 23:23] LABS: Glucose,Whole Blood 183 mg/dL (75-99)
[2017-05-13] MEDS: IPRATROPIUM-ALBUTEROL 3 ML NEB INHALATION SCH ×7 (00:02→23:47)
[2017-05-13] MEDS: FUROSEMIDE 10 MG/ML 10 ML VIAL IV SCH ×3 (00:33→17:02)
[2017-05-13 00:35] LABS: Glucose,Whole Blood 185 mg/dL (75-99)
[2017-05-13 02:25] LABS: Glucose,Whole Blood 178 mg/dL (75-99)
[2017-05-13] MEDS: MORPHINE SULFATE 4 MG/ML SYRINGE IVP PRN ×2 (03:04→05:47)
[2017-05-13 04:31] LABS: Glucose,Whole Blood 184 mg/dL (75-99)
[2017-05-13 05:04] LABS: Basophils % (A) 0 %; Eosinophils # (A) 0.3 k/uL (0-0.7); Eosinophils % (A) 3 %; HCT 27.8 % (39.0-53.0); Lymphocytes # (A) 1.2 k/uL (1.0-4.8); Lymphocytes % (A) 11 %; MCH 32.8 pg (25.0-35.0); MCHC 32.3 g/dL (31.0-37.0); MCV 101.6 fL (80.0-100.0); Macrocytosis Slight; Mean Platelet Volume 9.1; Monocytes # (A) 0.8 k/uL (0-1.0); Monocytes % (A) 7 %; Neutrophils # (A) 8.8 k/uL (1.3-7.7); Neutrophils % (A) 77 %; Platelet Count 244 k/uL (150-450); RBC 2.74 m/uL (4.30-5.90); RDW 14.8 % (11.5-15.5); WBC 11.3 k/uL (3.8-10.6)
[2017-05-13 05:08] LABS: Glucose,Whole Blood 161 mg/dL (75-99)
[2017-05-13 05:10] LABS: ABG Base Excess 11.7 mmol/L; ABG HCO3 34 mmol/L (21-25); ABG PCO2 39 mmHg (35-45); ABG PH 7.55 (7.35-7.45); ABG PO2 80 mmHg (83-108); ABG TCO2 35 mmol/L (19-24)
[2017-05-13] MEDS: hydrALAZINE HCL 20 MG/ML 1 ML VIAL IVP PRN (05:42)
[2017-05-13 05:58] LABS: Albumin 3.3 g/dL (3.5-5.0); Calcium 8.8 mg/dL (8.4-10.2); Magnesium 2.4 mg/dL (1.6-2.3); Potassium 3.4 mmol/L (3.5-5.1); Total Bilirubin 0.9 mg/dL (0.2-1.3); Total Protein 6.4 g/dL (6.3-8.2)
[2017-05-13] MEDS ORDERED: hydrALAZINE HCL 20 MG/ML 1 ML VIAL IVP STA (06:12)
[2017-05-13] MEDS: PIPERACILLIN-TAZOBACTAM 3.375 GM in DEXTROSE/WATER 1 50ML.BAG IVPB SCH ×3 (06:17→21:47)
[2017-05-13] MEDS: INSULIN REGULAR 100 UNIT in SODIUM CHLORIDE 0.9% 100 ML IV SCH (06:18)
[2017-05-13] MEDS: PROPOFOL 1,000 MG in EMPTY BAG 1 BAG IV SCH (06:41)
[2017-05-13] MEDS ORDERED: Potassium Replacement Protocol 1 EACH MISC MISCELLANE PRN (06:50)
[2017-05-13 08:12] LABS: Glucose,Whole Blood 166 mg/dL (75-99)
[2017-05-13] MEDS: METOLAZONE 5 MG TAB PO SCH ×2 (08:22→21:03)
[2017-05-13] MEDS: PANTOPRAZOLE 40 MG/10 ML VIAL IVP SCH ×2 (08:22→21:03)
[2017-05-13] MEDS: ASPIRIN 81 MG PO SCH (08:27)
[2017-05-13] MEDS: SENNOSIDES-DOCUSATE SODIUM 1 EACH TAB PO SCH ×2 (08:27→21:03)
[2017-05-13] MEDS: CHLORHEXIDINE GLUCONATE 15 ML CUP MUCOUS MEM SCH ×2 (08:27→21:03)
--- NOTE | 2017-05-13 08:30 | XR ---
EXAMINATION TYPE: XR chest 1V confirm line [facility] DATE OF EXAM: 05/13/2017 COMPARISON: 05/12/2017 INDICATION: Cardiorespiratory arrest TECHNIQUE: Single frontal view of the chest is obtained. FINDINGS: The heart size is normal. The pulmonary vasculature is normal. The lungs are clear. Nasogastric tube is present with tip in the left upper quadrant of the abdomen. This is not well visu alized due to degree of penetration. Spondylosis is noted within the thoracic spine. IMPRESSION: 1. No acute pulmonary process. 2. Nasogastric tube stable in position.
[2017-05-13] MEDS: POTASSIUM BICARBONATE/CIT AC 20 MEQ TABLET.EFF NG-TUBE SCH ×2 (09:04→11:46)
[2017-05-13 09:52] LABS: Glucose,Whole Blood 178 mg/dL (75-99)
--- NOTE | 2017-05-13 10:28 | P.PN ---
Subjective Progress Note Date: 05/13/17 This is a 76-year-old male patient with status post carotid endarterectomy on the right and the patient is postop day #6. Note that the patient went into acute cardio pulmonary arrest postop day #2 and he was done with initially acute respiratory arrest and subsequent cardiac arrest for a total of 30 minutes during which the patient received a total of 10 mg of epinephrine and 2 A of bicarb and subsequently the patient was intubated and placed on mechanical ventilator and since then the patient has remained intubated. On today's evaluation of 05/11/2017, the patient is sedated on Diprivan at 45 mg per KG pigmented. The patient is heavily sedated. He occasionally bites the tube and he withdraws to some stimulation to his lower extremities bilaterally. Hemodynamically, the patient is on no pressors. The patient is still in pulmonary edema and his chest x-ray and the patient is currently on Lasix drip at 10 mg an hour. Urine output is more than 100 mL an hour daily basis. The urine is somewhat bloody as the patient had some bleeding related to Pradaxa intake and Pradaxa is currently off. The patient is on assist- control mode of ventilation at the rate of 26, tidal volume 500, FiO2 of 50% and a PEEP of 15. The blood gases from this morning showed a pH of 7.49, with a pCO2 of 39 and pO2 of 113. The chest x-ray still showing pulmonary edema. Minimal amount of bloody secretions from his orotracheal tube. He is synchronous with the mechanical ventilator. Breath sounds are equal and symmetrical bilaterally. Echocardiogram showed an ejection fraction of less than 20%. The patient is still in acute kidney injury. Creatinine is up to 3.3 yet he is nonoliguric at this stage and nephrology is on the case. We are going to continue the Lasix drip at the same rate for now. The patient is being controlled with an insulin drip in regards to his blood sugar. The patient has not been given any sedation holiday since his cardiac/pulmonary arrest. The patient is on tube feeds and receding vital high protein at the rate of 60 mL an hour. Otherwise, no other significant events overnight. The CAT scan of the brain that was obtained on showed no acute abnormalities are then chronic cerebral atrophy. The patient has a hematoma over the right neck area which is currently stable and soft and the incision site is clean. On 05/13/2079 I'm seeing this patient for a follow-up in the patient was given a sedation holiday and he is opening up his eyes. He is not following any simple commands yet. No preferential gaze. No nystagmus. No agitation. He is doing some limited activity as far as movement in his upper extremities. He has a decent cough. The patient has no seizure activity. Incision over the right neck is clean and dry and the ecchymosis and hematoma over the right neck area soft and has not progressed. He is afebrile. He is on a mechanical ventilator. The PEEP has been drop down to 10 with an FiO2 of 50% and the patient remains on a tidal volume of 500 with a rate of 26. Chest x-ray shows some improvement in the volume status. The blood gases from today showed a pH of 7.49 with a pCO2 of 40 and pO2 of 74. The patient is on IV Lasix 60 mg every 8 hours. He is getting into a negative fluid balance. Hematuria is also improving. Otherwise the patient is producing adequate amount of urine output. Creatinine today is at 3.1 which is stable and not worse compared to yesterday. He is afebrile. He is tolerating his tube feeds. He was given a Dulcolax suppository. He is on no pressors. No other significant events overnight. Family is at the bedside. On 05/13/2017 I'm seeing this patient for a follow-up. The patient remains intubated on a mechanical ventilator. Note that the patient was taken off sedation throughout the day yesterday. He was waking up and he was opening his eyes spontaneously. He was not following commands initially. Subsequently he became more responsive and he follows some simple commands and today's able to wiggle his toes and move his fingers upon demand. He is calm and comfortable he is not agitated. Earlier this morning while being positioned in bed the patient became a bit tachycardic and tachypneic and agitated. He had to be placed back on Diprivan for a brief period of time and currently is back to being off sedation. He is still on a mechanical ventilator. I managed to drop the PEEP down to 8 and this morning he is an assist-control mode at the rate of 26, tidal volume of 500 with a PEEP of 8 and FiO2 of 40%. Blood gases showed a pH of 7.55 with a pCO2 of 39 and pO2 of 80. The chest x-ray from today still showing some but the pulmonary vessel congestion/edema. Nevertheless, the patient was diuresed adequately with accommodation of Lasix and Zaroxolyn the patient has been in a negative fluid balance of at least 5-6 L over the past 24 hours. This has resulted in to some metabolic alkalosis and the pH is up to 7.5 and a serum bicarb is up to 34. No hematuria this point. He is tolerating his tube feeds. No fever or chills. The incision site over the right neck area dry clean and intact. Blood pressure is fluctuating at times it's quite high requiring hydralazine pushes for blood pressure control. Cardiac rhythm is still sinus. He is off antibiotics for now. Objective - Vital Signs Vital signs: Vital Signs Temp 99.1 F 05/13/17 08:00 Pulse 79 05/13/17 09:00 Resp 26 H 05/13/17 09:00 BP 131/45 05/13/17 09:00 Pulse Ox 98 05/13/17 09:00 Intake & Output 05/12/17 05/13/17 05/13/17 18:59 06:59 18:59 Intake Total 1325.566 663.999 485.915 Output Total 4633 3700 475 Balance -3307.434 -3036.001 10.915 Weight 146.1 kg 137.1 kg 137.1 kg Intake: IV 290.0 167.5 40 KVO 240 130 40 Piperacillin-Tazobactam 3 37.5 .375 gm In Dextrose/Water 1 50ml.bag @ 12.5 mls/hr IVPB Q12H JOS[facility]IGUEL Rx#: [id number] Piperacillin-Tazobactam 3 50.0 .375 gm In Dextrose/Water 1 50ml.bag @ 12.5 mls/hr IVPB Q8HR JOS[facility] MIGUEL Rx#: [id number] Intake, IV Titration 440.566 151.499 65.915 Amount Furosemide 250 mg In 209.333 Sodium Chloride 0.9% 225 ml @ 5 MG/HR 5 mls/hr IVP .Q24H JOS[facility] MIGUEL Rx#:[id number] Insulin Regular 100 unit 106.233 138.999 38.525 In Sodium Chloride 0.9% 100 ml @ Per Protocol IV .Q0M [facility] MIGUEL Rx#:[id number] Piperacillin-Tazobactam 3 25.0 12.5 .375 gm In Dextrose/Water 1 50ml.bag @ 12.5 mls/hr IVPB Q12H JOS[facility] MIGUEL Rx#: [id number] Propofol 1,000 mg In 100 27.39 Empty Bag 1 bag @ Titrate IV .Q0M JOSÉ MIGUEL Rx#: [id number] Oral 145 Tube Feeding 450 315 180 Other 30 200 Output: Urine 4633 3700 475 Other: Voiding Method Indwelling Catheter Indwelling Catheter Indwelling Catheter # Voids 2 # Bowel Movements 1 ABP, PAP, CO, CI - Last Documented Arterial Blood Pressure 159/46 - Exam Patient is awake and following some simple commands. He can blink his eyes and wiggle his toes and move his fingers upon demand. The patient remains intubated and endotracheal tube and NG tube. The patient is laying comfortably in bed and he is morbidly obese. . No nystagmus pain no preferential gaze. Pupils are equal and reactive to light. There is no seizure activity. No agitation. HEENT examination is grossly unremarkable. Mucous membranes are moist. No oral lesions. A hematoma can be visualized all over the neck area, APPLYING mainly the right neck area and the incision site is clean. The hematoma itself is soft and non-enlarging at this point. Neck supple. Full range of motion. No adenopathy thyromegaly or neck vein distention. There is tremendous bruising and ecchymoses about the neck from the recent surgery. It's more right than left-sided. There hematoma is stable for now. Cardiovascular examination reveals regular rhythm rate. S1-S2 normal. No S3 or S4. No discernible murmur noted. Heart sounds are distant. Lungs reveal diffuse bilateral rhonchi. Breath sounds are diminished. Some bibasilar crackles. No wheezes. Abdomen soft bowel sounds are heard. No masses or tenderness. Extremities are intact. No cyanosis clubbing or edema. Skin is without rash or lesion. Neurologic the patient has no focal neurological deficit. The patient is moving all 4 extremities. No facial asymmetry. No nystagmus. - Labs CBC & Chem 7: 05/13/17 04:30 05/13/17 04:30 Labs: Abnormal Lab Results - Last 24 Hours (Table) 05/12/17 05/12/17 05/12/17 Range/Units 12:09 14:08 15:10 WBC (3.8-10.6) k/uL RBC (4.30-5.90) m/uL Hgb (13.0-17.5) gm/dL Hct (39.0-53.0) % MCV (80.0-100.0) fL Neutrophils # (1.3-7.7) k/uL ABG pH (7.35-7.45) ABG pO2 (83-108) mmHg ABG HCO3 (21-25) mmol/L ABG Total CO2 (19-24) mmol/L Sodium (137-145) mmol/L Potassium (3.5-5.1) mmol/L Carbon Dioxide (22-30) mmol/L BUN (9-20) mg/dL Creatinine (0.66-1.25) mg/dL Glucose (74-99) mg/dL POC Glucose (mg/dL) 190 H 198 H 178 H (75-99) mg/dL Magnesium (1.6-2.3) mg/dL AST (17-59) U/L Albumin (3.5-5.0) g/dL 05/12/17 05/12/17 05/12/17 Range/Units 16:35 17:18 18:12 WBC (3.8-10.6) k/uL RBC (4.30-5.90) m/uL Hgb (13.0-17.5) gm/dL Hct (39.0-53.0) % MCV (80.0-100.0) fL Neutrophils # (1.3-7.7) k/uL ABG pH (7.35-7.45) ABG pO2 (83-108) mmHg ABG HCO3 (21-25) mmol/L ABG Total CO2 (19-24) mmol/L Sodium (137-145) mmol/L Potassium (3.5-5.1) mmol/L Carbon Dioxide (22-30) mmol/L BUN (9-20) mg/dL Creatinine (0.66-1.25) mg/dL Glucose (74-99) mg/dL POC Glucose (mg/dL) 164 H 155 H 146 H (75-99) mg/dL Magnesium (1.6-2.3) mg/dL AST (17-59) U/L Albumin (3.5-5.0) g/dL 05/12/17 05/12/17 05/12/17 Range/Units 18:57 20:53 23:19 WBC (3.8-10.6) k/uL RBC (4.30-5.90) m/uL Hgb (13.0-17.5) gm/dL Hct (39.0-53.0) % MCV (80.0-100.0) fL Neutrophils # (1.3-7.7) k/uL ABG pH (7.35-7.45) ABG pO2 (83-108) mmHg ABG HCO3 (21-25) mmol/L ABG Total CO2 (19-24) mmol/L Sodium (137-145) mmol/L Potassium (3.5-5.1) mmol/L Carbon Dioxide (22-30) mmol/L BUN (9-20) mg/dL Creatinine (0.66-1.25) mg/dL Glucose (74-99) mg/dL POC Glucose (mg/dL) 167 H 181 H 183 H (75-99) mg/dL Magnesium (1.6-2.3) mg/dL AST (17-59) U/L Albumin (3.5-5.0) g/dL 05/13/17 05/13/17 05/13/17 Range/Units 00:32 02:22 04:27 WBC (3.8-10.6) k/uL RBC (4.30-5.90) m/uL Hgb (13.0-17.5) gm/dL Hct (39.0-53.0) % MCV (80.0-100.0) fL Neutrophils # (1.3-7.7) k/uL ABG pH (7.35-7.45) ABG pO2 (83-108) mmHg ABG HCO3 (21-25) mmol/L ABG Total CO2 (19-24) mmol/L Sodium (137-145) mmol/L Potassium (3.5-5.1) mmol/L Carbon Dioxide (22-30) mmol/L BUN (9-20) mg/dL Creatinine (0.66-1.25) mg/dL Glucose (74-99) mg/dL POC Glucose (mg/dL) 185 H 178 H 184 H (75-99) mg/dL Magnesium (1.6-2.3) mg/dL AST (17-59) U/L Albumin (3.5-5.0) g/dL 05/13/17 05/13/17 05/13/17 Range/Units 04:30 04:30 05:07 WBC 11.3 H (3.8-10.6) k/uL RBC 2.74 L (4.30-5.90) m/uL Hgb 9.0 L (13.0-17.5) gm/dL Hct 27.8 L (39.0-53.0) % MCV 101.6 H (80.0-100.0) fL Neutrophils # 8.8 H (1.3-7.7) k/uL ABG pH (7.35-7.45) ABG pO2 (83-108) mmHg ABG HCO3 (21-25) mmol/L ABG Total CO2 (19-24) mmol/L Sodium 148 H (137-145) mmol/L Potassium 3.4 L (3.5-5.1) mmol/L Carbon Dioxide 33 H (22-30) mmol/L BUN 109 H* (9-20) mg/dL Creatinine 2.76 H (0.66-1.25) mg/dL Glucose 169 H (74-99) mg/dL POC Glucose (mg/dL) 161 H (75-99) mg/dL Magnesium 2.4 H (1.6-2.3) mg/dL AST 61 H (17-59) U/L Albumin 3.3 L (3.5-5.0) g/dL 05/13/17 05/13/17 05/13/17 Range/Units 05:08 08:10 09:50 WBC (3.8-10.6) k/uL RBC (4.30-5.90) m/uL Hgb (13.0-17.5) gm/dL Hct (39.0-53.0) % MCV (80.0-100.0) fL Neutrophils # (1.3-7.7) k/uL ABG pH 7.55 H (7.35-7.45) ABG pO2 80 L (83-108) mmHg ABG HCO3 34 H (21-25) mmol/L ABG Total CO2 35 H (19-24) mmol/L Sodium (137-145) mmol/L Potassium (3.5-5.1) mmol/L Carbon Dioxide (22-30) mmol/L BUN (9-20) mg/dL Creatinine (0.66-1.25) mg/dL Glucose (74-99) mg/dL POC Glucose (mg/dL) 166 H 178 H (75-99) mg/dL Magnesium (1.6-2.3) mg/dL AST (17-59) U/L Albumin (3.5-5.0) g/dL Microbiology - Last 24 Hours (Table) 05/12/17 21:20 Gram Stain - Preliminary Sputum Sputum Culture - Preliminary 05/09/17 09:12 Blood Culture - Preliminary Blood No Growth after 72 hours Assessment and Plan Plan: Assessment 1 right carotid endarterectomy and the patient is postop day #8 2 acute cardio pulmonary arrest. This is most like an acute pulmonary edema for by cardiac arrest and the patient had a downtime of at least 25 minutes. He received a total of 10mgrams epinephrine and bicarb currently intubated on a mechanical ventilator. 3 CHF with an ejection fraction of less than 20% 4 suspected acute non-STEMI with ST segment depression and some mild troponin leak that peaked at 2.8 with underlying history of coronary artery disease 5 acute kidney injury, improving as the patient's urine output is improved with diuretics the patient's creatinine is down to 2.7. He has developed some metabolic alkalosis and combination to Lasix and Zaroxolyn. 6 acute respiratory failure secondary to above, chest x-ray from today shows improvement in the volume status with some residual interstitial edema. 7 diabetes mellitus currently on insulin drip for blood sugar control 8 possible hypoxic/anoxic encephalopathy secondary to above-mentioned comorbidities and complications 9 obstructive sleep apnea 10 hypertension, fluctuating blood pressure 11 hyperlipidemia 12 morbid obesity 13 gout 14 hematoma over the neck especially over the right anterior neck area with a clean incision, postsurgical To get further by the intake of anticoagulants 15 mild hematuria, improving Plan We'll keep the patient off sedation. Monitor neurologic function. Dr. keep down to 5. Drop the respiratory rate down to 20. Give the patient to dose of Diamox to 50 mg every 12 hours regarding his metabolic alkalosis. May consider to obtain weaning parameters a later stage to assess his readiness to wean. Start Coreg 12.5 mg by mouth twice a day regarding her blood pressure control. Monitor renal function. Nephrology is on the case. Continue diuretics. We'll continue to follow make further accommodation's based on his progress. This critically care evaluation. The at the bedside and she was updated on his condition. Clinically improving. We'll continue to follow. Critically care evaluation was done and 35 minutes.
--- NOTE | 2017-05-13 10:51 | P.PN ---
<Piper Skelton - Last Filed: 05/13/17 10:41> Subjective Progress Note Date: 05/13/17 Principal diagnosis: Hemodynamically severe right internal carotid artery stenosis. Previous medical history of hypertension, gout, hyperlipidemia, diabetes, insomnia, atrial fibrillation with ablation, coronary artery disease, obstructive sleep apnea with CPAP use. POD #7 elective right carotid endarterectomy with patch angioplasty. Postoperative hematoma present at surgical site, and expected outcome given CPR during resuscitation as well as long-standing history of anticoagulation. Status post cardiopulmonary arrest with resuscitation, suspect non-STEMI. Acute systolic heart failure with an ejection fraction less than 20%. Acute kidney injury likely secondary to cardiac arrest with 30 minute down time. Patient's currently laying in bed in no acute distress, remains on mechanical ventilation, currently off sedation and opening his eyes and following commands. Family present at bedside, updated with patient's condition, all questions answered. Objective - Vital Signs Vital signs: Vital Signs Temp 99.1 F 05/13/17 08:00 Pulse 79 05/13/17 09:00 Resp 26 H 05/13/17 09:00 BP 131/45 05/13/17 09:00 Pulse Ox 98 05/13/17 09:00 Intake & Output 05/12/17 05/13/17 05/13/17 18:59 06:59 18:59 Intake Total 1325.566 663.999 485.915 Output Total 4633 3700 475 Balance -3307.434 -3036.001 10.915 Weight 146.1 kg 137.1 kg 137.1 kg Intake: IV 290.0 167.5 40 KVO 240 130 40 Piperacillin-Tazobactam 3 37.5 .375 gm In Dextrose/Water 1 50ml.bag @ 12.5 mls/hr IVPB Q12H [facility] Rx#: [id number] Piperacillin-Tazobactam 3 50.0 .375 gm In Dextrose/Water 1 50ml.bag @ 12.5 mls/hr IVPB Q8HR [facility] Rx#: [id number] Intake, IV Titration 440.566 151.499 65.915 Amount Furosemide 250 mg In 209.333 Sodium Chloride 0.9% 225 ml @ 5 MG/HR 5 mls/hr IVP .Q24H [facility] Rx#:[id number] Insulin Regular 100 unit 106.233 138.999 38.525 In Sodium Chloride 0.9% 100 ml @ Per Protocol IV .Q0M [facility] Rx#:[id number] Piperacillin-Tazobactam 3 25.0 12.5 .375 gm In Dextrose/Water 1 50ml.bag @ 12.5 mls/hr IVPB Q12H [facility] Rx#: [id number] Propofol 1,000 mg In 100 27.39 Empty Bag 1 bag @ Titrate IV .Q0M [facility] Rx#: [id number] Oral 145 Tube Feeding 450 315 180 Other 30 200 Output: Urine 4633 3700 475 Other: Voiding Method Indwelling Catheter Indwelling Catheter Indwelling Catheter # Voids 2 # Bowel Movements 1 ABP, PAP, CO, CI - Last Documented Arterial Blood Pressure 159/46 - Constitutional General appearance: Present: no acute distress, obese - Respiratory Details: Lungs sounds diminished bilaterally. Respirations even, nonlabored on mechanical ventilation. Current settings assist control mode, FiO2 40%, tidal 500, respiratory rate 20, PEEP 5. 7.5 ET tube present, 24 at the lip. - Cardiovascular Details: S1, S2 present. Regular rate and rhythm, sinus rhythm on telemetry. Palpable peripheral pulses bilaterally. No edema present. No calf pain or tenderness noted. SCDs present. Left radial arterial line, right femoral triple-lumen central line present, day #4. - Gastrointestinal Gastrointestinal Comment(s): Abdomen soft, nontender, nondistended, round. Active bowel sounds present 4 quadrants. OG tube present with tube feeding infusing at 25 mL/h, minimal residual per nursing staff. Positive bowel movement yesterday. - Genitourinary Genitourinary Comment(s): Boothe present draining bloody urine. Output approximately 400 mL/h overnight. - Integumentary Integumentary Comment(s): Skin is warm and dry. Multiple areas of ecchymosis present. Right anterior neck incision well approximated. Hematoma present, however has not increased in size. - Neurologic Neurologic Comment(s): Does open eyes, nods head yes shakes had no. Moves right arm and leg to command. 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 - Allied health notes Allied health notes reviewed: nursing - Labs CBC & Chem 7: 05/13/17 04:30 05/13/17 04:30 Labs: Abnormal Lab Results - Last 24 Hours (Table) 05/12/17 05/12/17 05/12/17 Range/Units 12:09 14:08 15:10 WBC (3.8-10.6) k/uL RBC (4.30-5.90) m/uL Hgb (13.0-17.5) gm/dL Hct (39.0-53.0) % MCV (80.0-100.0) fL Neutrophils # (1.3-7.7) k/uL ABG pH (7.35-7.45) ABG pO2 (83-108) mmHg ABG HCO3 (21-25) mmol/L ABG Total CO2 (19-24) mmol/L Sodium (137-145) mmol/L Potassium (3.5-5.1) mmol/L Carbon Dioxide (22-30) mmol/L BUN (9-20) mg/dL Creatinine (0.66-1.25) mg/dL Glucose (74-99) mg/dL POC Glucose (mg/dL) 190 H 198 H 178 H (75-99) mg/dL Magnesium (1.6-2.3) mg/dL AST (17-59) U/L Albumin (3.5-5.0) g/dL 05/12/17 05/12/17 05/12/17 Range/Units 16:35 17:18 18:12 WBC (3.8-10.6) k/uL RBC (4.30-5.90) m/uL Hgb (13.0-17.5) gm/dL Hct (39.0-53.0) % MCV (80.0-100.0) fL Neutrophils # (1.3-7.7) k/uL ABG pH (7.35-7.45) ABG pO2 (83-108) mmHg ABG HCO3 (21-25) mmol/L ABG Total CO2 (19-24) mmol/L Sodium (137-145) mmol/L Potassium (3.5-5.1) mmol/L Carbon Dioxide (22-30) mmol/L BUN (9-20) mg/dL Creatinine (0.66-1.25) mg/dL Glucose (74-99) mg/dL POC Glucose (mg/dL) 164 H 155 H 146 H (75-99) mg/dL Magnesium (1.6-2.3) mg/dL AST (17-59) U/L Albumin (3.5-5.0) g/dL 05/12/17 05/12/17 05/12/17 Range/Units 18:57 20:53 23:19 WBC (3.8-10.6) k/uL RBC (4.30-5.90) m/uL Hgb (13.0-17.5) gm/dL Hct (39.0-53.0) % MCV (80.0-100.0) fL Neutrophils # (1.3-7.7) k/uL ABG pH (7.35-7.45) ABG pO2 (83-108) mmHg ABG HCO3 (21-25) mmol/L ABG Total CO2 (19-24) mmol/L Sodium (137-145) mmol/L Potassium (3.5-5.1) mmol/L Carbon Dioxide (22-30) mmol/L BUN (9-20) mg/dL Creatinine (0.66-1.25) mg/dL Glucose (74-99) mg/dL POC Glucose (mg/dL) 167 H 181 H 183 H (75-99) mg/dL Magnesium (1.6-2.3) mg/dL AST (17-59) U/L Albumin (3.5-5.0) g/dL 05/13/17 05/13/17 05/13/17 Range/Units 00:32 02:22 04:27 WBC (3.8-10.6) k/uL RBC (4.30-5.90) m/uL Hgb (13.0-17.5) gm/dL Hct (39.0-53.0) % MCV (80.0-100.0) fL Neutrophils # (1.3-7.7) k/uL ABG pH (7.35-7.45) ABG pO2 (83-108) mmHg ABG HCO3 (21-25) mmol/L ABG Total CO2 (19-24) mmol/L Sodium (137-145) mmol/L Potassium (3.5-5.1) mmol/L Carbon Dioxide (22-30) mmol/L BUN (9-20) mg/dL Creatinine (0.66-1.25) mg/dL Glucose (74-99) mg/dL POC Glucose (mg/dL) 185 H 178 H 184 H (75-99) mg/dL Magnesium (1.6-2.3) mg/dL AST (17-59) U/L Albumin (3.5-5.0) g/dL 05/13/17 05/13/17 05/13/17 Range/Units 04:30 04:30 05:07 WBC 11.3 H (3.8-10.6) k/uL RBC 2.74 L (4.30-5.90) m/uL Hgb 9.0 L (13.0-17.5) gm/dL Hct 27.8 L (39.0-53.0) % MCV 101.6 H (80.0-100.0) fL Neutrophils # 8.8 H (1.3-7.7) k/uL ABG pH (7.35-7.45) ABG pO2 (83-108) mmHg ABG HCO3 (21-25) mmol/L ABG Total CO2 (19-24) mmol/L Sodium 148 H (137-145) mmol/L Potassium 3.4 L (3.5-5.1) mmol/L Carbon Dioxide 33 H (22-30) mmol/L BUN 109 H* (9-20) mg/dL Creatinine 2.76 H (0.66-1.25) mg/dL Glucose 169 H (74-99) mg/dL POC Glucose (mg/dL) 161 H (75-99) mg/dL Magnesium 2.4 H (1.6-2.3) mg/dL AST 61 H (17-59) U/L Albumin 3.3 L (3.5-5.0) g/dL 05/13/17 05/13/17 05/13/17 Range/Units 05:08 08:10 09:50 WBC (3.8-10.6) k/uL RBC (4.30-5.90) m/uL Hgb (13.0-17.5) gm/dL Hct (39.0-53.0) % MCV (80.0-100.0) fL Neutrophils # (1.3-7.7) k/uL ABG pH 7.55 H (7.35-7.45) ABG pO2 80 L (83-108) mmHg ABG HCO3 34 H (21-25) mmol/L ABG Total CO2 35 H (19-24) mmol/L Sodium (137-145) mmol/L Potassium (3.5-5.1) mmol/L Carbon Dioxide (22-30) mmol/L BUN (9-20) mg/dL Creatinine (0.66-1.25) mg/dL Glucose (74-99) mg/dL POC Glucose (mg/dL) 166 H 178 H (75-99) mg/dL Magnesium (1.6-2.3) mg/dL AST (17-59) U/L Albumin (3.5-5.0) g/dL Microbiology - Last 24 Hours (Table) 05/12/17 21:20 Gram Stain - Preliminary Sputum Sputum Culture - Preliminary 05/09/17 09:12 Blood Culture - Preliminary Blood No Growth after 72 hours - Imaging and Cardiology Chest x-ray: report reviewed, image reviewed Assessment and Plan (1) Cardiopulmonary arrest with successful resuscitation Current Visit: Yes Status: Acute Code(s): I46.9 - CARDIAC ARREST, CAUSE UNSPECIFIED SNOMED Code(s): 513691207 (2) Diabetes mellitus type 2 in obese Current Visit: Yes Status: Chronic Code(s): E11.69 - TYPE 2 DIABETES MELLITUS WITH OTHER SPECIFIED COMPLICATION; E66.9 - OBESITY, UNSPECIFIED SNOMED Code(s): 41155520 (3) GERD (gastroesophageal reflux disease) Current Visit: Yes Status: Chronic Code(s): K21.9 - GASTRO-ESOPHAGEAL REFLUX DISEASE WITHOUT ESOPHAGITIS SNOMED Code(s): 346029540 (4) Gout Current Visit: Yes Status: Chronic Code(s): M10.9 - GOUT, UNSPECIFIED SNOMED Code(s): 47400935 (5) History of coronary artery disease Current Visit: Yes Status: Chronic Code(s): Z86.79 - PERSONAL HISTORY OF OTHER DISEASES OF THE CIRCULATORY SYSTEM SNOMED Code(s): 112451579 (6) Hyperlipidemia Current Visit: Yes Status: Chronic Code(s): E78.5 - HYPERLIPIDEMIA, UNSPECIFIED SNOMED Code(s): 73066032 (7) Hypertension Current Visit: Yes Status: Chronic Code(s): I10 - ESSENTIAL (PRIMARY) HYPERTENSION SNOMED Code(s): 83961921 (8) Morbid obesity Current Visit: Yes Status: Chronic Code(s): E66.01 - MORBID (SEVERE) OBESITY DUE TO EXCESS CALORIES SNOMED Code(s): 088358120 (9) Obstructive sleep apnea Current Visit: Yes Status: Chronic Code(s): G47.33 - OBSTRUCTIVE SLEEP APNEA (ADULT) (PEDIATRIC) SNOMED Code(s): 91979050 (10) Paroxysmal atrial fibrillation Current Visit: Yes Status: Chronic Code(s): I48.0 - PAROXYSMAL ATRIAL FIBRILLATION SNOMED Code(s): 397567962 (11) Stenosis of right carotid artery Current Visit: Yes Status: Chronic Code(s): I65.21 - OCCLUSION AND STENOSIS OF RIGHT CAROTID ARTERY SNOMED Code(s): 298283361349307 Plan: 1. Continue current medical management per primary care service. 2. Cardiology management for post myocardial infarction, cardiopulmonary arrest. 3. Ventilator management per pulmonology. 4. GI/DVT prophylaxis. 5. Will continue to monitor daily labs and x-rays. 6. Maintain stable blood pressure. 7. Patient's condition remains guarded. 8. Right carotid endarterectomy site remains stable. Time with Patient: Greater than 30 <Spencer Juárez - Last Filed: 05/13/17 14:30> Subjective Nurse practitioner no reviewed and accepted. Patient appears to be showing some significant progress. Continue with aggressive medical care. Objective - Vital Signs Vital signs: Vital Signs Temp 99.3 F 05/13/17 12:00 Pulse 77 05/13/17 13:00 Resp 20 05/13/17 13:00 BP 114/50 05/13/17 13:00 Pulse Ox 91 L 05/13/17 13:00 Intake & Output 05/12/17 05/13/17 05/13/17 18:59 06:59 18:59 Intake Total 1325.566 104.534 7495.790 Output Total 4670 3700 1625 Balance -3307.434 -3036.001 -608.210 Weight 146.1 kg 137.1 kg 137.1 kg Intake: IV 290.0 167.5 120 KVO 240 130 120 Piperacillin-Tazobactam 3 37.5 .375 gm In Dextrose/Water 1 50ml.bag @ 12.5 mls/hr IVPB Q12H [facility] Rx#: [id number] Piperacillin-Tazobactam 3 50.0 .375 gm In Dextrose/Water 1 50ml.bag @ 12.5 mls/hr IVPB Q8HR [facility] Rx#: [id number] Intake, IV Titration 440.566 151.499 91.790 Amount Furosemide 250 mg In 209.333 Sodium Chloride 0.9% 225 ml @ 5 MG/HR 5 mls/hr IVP .Q24H [facility] Rx#:[id number] Insulin Regular 100 unit 106.233 138.999 64.400 In Sodium Chloride 0.9% 100 ml @ Per Protocol IV .Q0M [facility] Rx#:[id number] Piperacillin-Tazobactam 3 25.0 12.5 .375 gm In Dextrose/Water 1 50ml.bag @ 12.5 mls/hr IVPB Q12H [facility] Rx#: [id number] Propofol 1,000 mg In 100 27.39 Empty Bag 1 bag @ Titrate IV .Q0M [facility] Rx#: [id number] Oral 145 Tube Feeding 450 315 405 Other 30 400 Output: Urine 4633 3700 1625 Other: Voiding Method Indwelling Catheter Indwelling Catheter Indwelling Catheter # Voids 2 # Bowel Movements 1 ABP, PAP, CO, CI - Last Documented Arterial Blood Pressure 138/48 - Labs CBC & Chem 7: 05/13/17 04:30 05/13/17 04:30 Labs: Abnormal Lab Results - Last 24 Hours (Table) 05/12/17 05/12/17 05/12/17 Range/Units 15:10 16:35 17:18 WBC (3.8-10.6) k/uL RBC (4.30-5.90) m/uL Hgb (13.0-17.5) gm/dL Hct (39.0-53.0) % MCV (80.0-100.0) fL Neutrophils # (1.3-7.7) k/uL ABG pH (7.35-7.45) ABG pO2 (83-108) mmHg ABG HCO3 (21-25) mmol/L ABG Total CO2 (19-24) mmol/L Sodium (137-145) mmol/L Potassium (3.5-5.1) mmol/L Carbon Dioxide (22-30) mmol/L BUN (9-20) mg/dL Creatinine (0.66-1.25) mg/dL Glucose (74-99) mg/dL POC Glucose (mg/dL) 178 H 164 H 155 H (75-99) mg/dL Magnesium (1.6-2.3) mg/dL AST (17-59) U/L Albumin (3.5-5.0) g/dL 05/12/17 05/12/17 05/12/17 Range/Units 18:12 18:57 20:53 WBC (3.8-10.6) k/uL RBC (4.30-5.90) m/uL Hgb (13.0-17.5) gm/dL Hct (39.0-53.0) % MCV (80.0-100.0) fL Neutrophils # (1.3-7.7) k/uL ABG pH (7.35-7.45) ABG pO2 (83-108) mmHg ABG HCO3 (21-25) mmol/L ABG Total CO2 (19-24) mmol/L Sodium (137-145) mmol/L Potassium (3.5-5.1) mmol/L Carbon Dioxide (22-30) mmol/L BUN (9-20) mg/dL Creatinine (0.66-1.25) mg/dL Glucose (74-99) mg/dL POC Glucose (mg/dL) 146 H 167 H 181 H (75-99) mg/dL Magnesium (1.6-2.3) mg/dL AST (17-59) U/L Albumin (3.5-5.0) g/dL 05/12/17 05/13/17 05/13/17 Range/Units 23:19 00:32 02:22 WBC (3.8-10.6) k/uL RBC (4.30-5.90) m/uL Hgb (13.0-17.5) gm/dL Hct (39.0-53.0) % MCV (80.0-100.0) fL Neutrophils # (1.3-7.7) k/uL ABG pH (7.35-7.45) ABG pO2 (83-108) mmHg ABG HCO3 (21-25) mmol/L ABG Total CO2 (19-24) mmol/L Sodium (137-145) mmol/L Potassium (3.5-5.1) mmol/L Carbon Dioxide (22-30) mmol/L BUN (9-20) mg/dL Creatinine (0.66-1.25) mg/dL Glucose (74-99) mg/dL POC Glucose (mg/dL) 183 H 185 H 178 H (75-99) mg/dL Magnesium (1.6-2.3) mg/dL AST (17-59) U/L Albumin (3.5-5.0) g/dL 05/13/17 05/13/17 05/13/17 Range/Units 04:27 04:30 04:30 WBC 11.3 H (3.8-10.6) k/uL RBC 2.74 L (4.30-5.90) m/uL Hgb 9.0 L (13.0-17.5) gm/dL Hct 27.8 L (39.0-53.0) % MCV 101.6 H (80.0-100.0) fL Neutrophils # 8.8 H (1.3-7.7) k/uL ABG pH (7.35-7.45) ABG pO2 (83-108) mmHg ABG HCO3 (21-25) mmol/L ABG Total CO2 (19-24) mmol/L Sodium 148 H (137-145) mmol/L Potassium 3.4 L (3.5-5.1) mmol/L Carbon Dioxide 33 H (22-30) mmol/L BUN 109 H* (9-20) mg/dL Creatinine 2.76 H (0.66-1.25) mg/dL Glucose 169 H (74-99) mg/dL POC Glucose (mg/dL) 184 H (75-99) mg/dL Magnesium 2.4 H (1.6-2.3) mg/dL AST 61 H (17-59) U/L Albumin 3.3 L (3.5-5.0) g/dL 05/13/17 05/13/17 05/13/17 Range/Units 05:07 05:08 08:10 WBC (3.8-10.6) k/uL RBC (4.30-5.90) m/uL Hgb (13.0-17.5) gm/dL Hct (39.0-53.0) % MCV (80.0-100.0) fL Neutrophils # (1.3-7.7) k/uL ABG pH 7.55 H (7.35-7.45) ABG pO2 80 L (83-108) mmHg ABG HCO3 34 H (21-25) mmol/L ABG Total CO2 35 H (19-24) mmol/L Sodium (137-145) mmol/L Potassium (3.5-5.1) mmol/L Carbon Dioxide (22-30) mmol/L BUN (9-20) mg/dL Creatinine (0.66-1.25) mg/dL Glucose (74-99) mg/dL POC Glucose (mg/dL) 161 H 166 H (75-99) mg/dL Magnesium (1.6-2.3) mg/dL AST (17-59) U/L Albumin (3.5-5.0) g/dL 05/13/17 05/13/17 05/13/17 Range/Units 09:50 12:05 14:11 WBC (3.8-10.6) k/uL RBC (4.30-5.90) m/uL Hgb (13.0-17.5) gm/dL Hct (39.0-53.0) % MCV (80.0-100.0) fL Neutrophils # (1.3-7.7) k/uL ABG pH (7.35-7.45) ABG pO2 (83-108) mmHg ABG HCO3 (21-25) mmol/L ABG Total CO2 (19-24) mmol/L Sodium (137-145) mmol/L Potassium (3.5-5.1) mmol/L Carbon Dioxide (22-30) mmol/L BUN (9-20) mg/dL Creatinine (0.66-1.25) mg/dL Glucose (74-99) mg/dL POC Glucose (mg/dL) 178 H 196 H 165 H (75-99) mg/dL Magnesium (1.6-2.3) mg/dL AST (17-59) U/L Albumin (3.5-5.0) g/dL Microbiology - Last 24 Hours (Table) 05/09/17 09:12 Blood Culture - Preliminary Blood No Growth after 96 hours 05/12/17 21:20 Gram Stain - Preliminary Sputum Sputum Culture - Preliminary
[2017-05-13] MEDS: CARVEDILOL 12.5 MG TAB PO SCH ×2 (11:47→17:02)
[2017-05-13 12:06] LABS: Glucose,Whole Blood 196 mg/dL (75-99)
--- NOTE | 2017-05-13 12:44 | P.PN ---
Subjective Progress Note Date: 05/13/17 76-year-old male who underwent elective right carotid endarterectomy with patch angioplasty on 05/06/[address] Mckenzie was consulted for medical management. The patient has a history of bilateral carotid stenosis, atrial fibrillation, coronary disease, diabetes mellitus, gastroesophageal reflux disease, hyperlipidemia, hypertension, osteoarthritis, and sleep apnea. 05/07/2017 The patient was seen and examined in the intensive care unit on rounds Dr. Mckenzie. The patient is sitting up in the chair. Family is at the bedside. The patient remains on a nitro drip at 60 mcg/min. Systolic blood pressures ranging in the 140s. The patient is complaining of pain at the surgical site. Dressing is in place. Swelling is noted near surgical site. Patient denies shortness of breath or coughing. Denies chest pain or pressure. Denies nausea or vomiting. States he is tolerating PO intake well without nausea or vomiting. 05/08/2017 Patient remains in intensive care unit. He is postop day #2 right carotid endarterectomy. The patient is sitting up in the chair. the patient's nitro drip has been weaned off. He was started on Norvasc 10 mg daily yesterday along with hydralazine 50 mg by mouth 3 times a day. Patients blood sugars remain elevated in the 200s. Patient utilizes an insulin pump at home. Patient 's insulin pump is currently not with him as it was empty and patient's was going to bring his insulin pump back to the hospital after she refilled it. patient remains on 6 L nasal cannula with oxygen saturations greater than 92%. He denies shortness of breath. Denies chest pain or pressure. Tolerating by mouth intake without nausea or vomiting. WBC 13.2. Hemoglobin 10.6. BUN 38. Creatinine 1.40. 05/09/2017-Notes per Dr. Mckenzie 05/10/2017-Notes per Dr. Mckenzie 05/11/2017 Patient seen and examined at the bedside on rounds with Dr. Corona. Patient went into cardiac arrest on 05/08/2017 and was successfully resuscitated after approximately 20 minutes of CPR. Patient remains intubated in the intensive care unit on mechanical ventilation. Patient is currently on IV propofol secondary to patient biting on his ET tube and bucking the ventilator. Sedation holiday has not been performed per nursing secondary to hemodynamic instability. Patient remains on 50% FiO2. Patient has required vasopressor secondary to hypotension. Levophed is currently off this morning. Chest x-ray this morning reveals mild cardio megaly with persistent central bilateral perihilar edema and/or infiltrates. ARDS is not excluded. Patient remains on Lasix drip. Patient also remains on insulin drip. Creatinine this morning is 3.30. Nephrology is on consult. Patient underwent CT of the brain which was negative for an acute process. 05/12/2017 Patient seen and examined at the bedside on rounds with Dr. Corona. Patient remains intubated in the intensive care unit. Family at the bedside. Patient sedation has been held for approximately 40 minutes. Patient is not following commands but is moving all extremities. Patient's eyes are open but patient is not tracking currently. Tube feedings are infusing. Patient is tolerating well. Patient has not had a bowel movement per nursing and just received a rectal suppository. Patient remains on insulin drip. Currently at 8.5 units an hour. Lasix drip was discontinued this morning per nephrology. Creatinine 3.10 this morning. Urinary output remains adequate. Hematuria is improving. Blood pressure is currently elevated in the 170s which may be secondary to agitation as sedation has been on hold. Nursing reports blood pressure has been running in the 140s when patient is sedated. 05/13/2017 Patient seen and examined at the bedside on rounds with Dr. Corona. is at the bedside. Per nursing, patients propofol was off yesterday and patient was able to follow some simple commands. Patient became agitated this morning and sedation was resumed. It has since been turned off. Patient does remain lethargic. He is able to open his eyes to commands and slightly wiggle his toes upon command when asked repeatedly, but then drifts back off to sleep. Patient remains on an insulin dip at 11.5 units an hour. Blood sugars are 161-196. Boothe remains intact with blood tinged urine. Tube feeding is infusing at 45 cc/ hr which is goal. Patient tolerated well. Bowel movement yesterday. Blood pressure remains elevated at times. Hydralazine PRN was ordered yesterday. Coreg has been ordered today per pulmonary. Objective - Vital Signs Vital signs: Vital Signs Temp 99.1 F 05/13/17 08:00 Pulse 79 05/13/17 09:00 Resp 26 H 05/13/17 09:00 BP 131/45 05/13/17 09:00 Pulse Ox 98 05/13/17 09:00 Intake & Output 05/12/17 05/13/17 05/13/17 18:59 06:59 18:59 Intake Total 1325.566 663.999 485.915 Output Total 4633 3700 475 Balance -3307.434 -3036.001 10.915 Weight 146.1 kg 137.1 kg 137.1 kg Intake: IV 290.0 167.5 40 KVO 240 130 40 Piperacillin-Tazobactam 3 37.5 .375 gm In Dextrose/Water 1 50ml.bag @ 12.5 mls/hr IVPB Q12H [facility] Rx#: [id number] Piperacillin-Tazobactam 3 50.0 .375 gm In Dextrose/Water 1 50ml.bag @ 12.5 mls/hr IVPB Q8HR [facility] Rx#: [id number] Intake, IV Titration 440.566 151.499 65.915 Amount Furosemide 250 mg In 209.333 Sodium Chloride 0.9% 225 ml @ 5 MG/HR 5 mls/hr IVP .Q24H [facility] Rx#:[id number] Insulin Regular 100 unit 106.233 138.999 38.525 In Sodium Chloride 0.9% 100 ml @ Per Protocol IV .Q0M [facility] Rx#:[id number] Piperacillin-Tazobactam 3 25.0 12.5 .375 gm In Dextrose/Water 1 50ml.bag @ 12.5 mls/hr IVPB Q12H [facility] Rx#: [id number] Propofol 1,000 mg In 100 27.39 Empty Bag 1 bag @ Titrate IV .Q0M [facility] Rx#: [id number] Oral 145 Tube Feeding 450 315 180 Other 30 200 Output: Urine 4633 3700 475 Other: Voiding Method Indwelling Catheter Indwelling Catheter Indwelling Catheter # Voids 2 # Bowel Movements 1 ABP, PAP, CO, CI - Last Documented Arterial Blood Pressure 159/46 - Exam GENERAL: This is a 76-year-old male who remains on mechanical ventilation in the intensive care unit. HEENT: ET tube noted. Head is atraumatic, normocephalic. Pupils are equal, round, and reactive to light. Sclerae anicteric. Conjunctivae are clear. Mucus membranes of the mouth are moist. Neck is supple. Extensive ecchymosis noted throughout neck. RESPIRATORY: ET tube noted. Diminished with rhonchi throughout. Patient maintaining oxygen saturation greater than 92% on mechanical ventilation with 50 % FiO2. No chest wall tenderness is noted on palpation or with deep breathing. CARDIOVASCULAR: Regular rate and rhythm. S1 and S2 noted. No systolic or diastolic murmur auscultated. No JVD noted. No S3 or S4 noted. GASTROINTESTINAL: No distention noted. Abdomen soft and round. Normal active bowel sounds auscultated x 4 quadrants. No pain or tenderness noted upon palpation. INTEGUMENTARY: Dressing noted to right neck. No drainage noted. Clean dry and intact. Ecchymosis noted around surgical area. No cyanosis. No jaundice. EXTREMITIES: 2+ peripheral pulses. No evidence of peripheral edema. No calf tenderness noted. NEUROLOGIC/PSYCHIATRIC: Unable to assess thoroughly secondary secondary to sedation and mechanical ventilation. Patient does open his eyes and moves extremities. Able to follow some simple commands. - Labs CBC & Chem 7: 05/13/17 04:30 05/13/17 04:30 Labs: Abnormal Lab Results - Last 24 Hours (Table) 05/12/17 05/12/17 05/12/17 Range/Units 12:09 14:08 15:10 WBC (3.8-10.6) k/uL RBC (4.30-5.90) m/uL Hgb (13.0-17.5) gm/dL Hct (39.0-53.0) % MCV (80.0-100.0) fL Neutrophils # (1.3-7.7) k/uL ABG pH (7.35-7.45) ABG pO2 (83-108) mmHg ABG HCO3 (21-25) mmol/L ABG Total CO2 (19-24) mmol/L Sodium (137-145) mmol/L Potassium (3.5-5.1) mmol/L Carbon Dioxide (22-30) mmol/L BUN (9-20) mg/dL Creatinine (0.66-1.25) mg/dL Glucose (74-99) mg/dL POC Glucose (mg/dL) 190 H 198 H 178 H (75-99) mg/dL Magnesium (1.6-2.3) mg/dL AST (17-59) U/L Albumin (3.5-5.0) g/dL 05/12/17 05/12/17 05/12/17 Range/Units 16:35 17:18 18:12 WBC (3.8-10.6) k/uL RBC (4.30-5.90) m/uL Hgb (13.0-17.5) gm/dL Hct (39.0-53.0) % MCV (80.0-100.0) fL Neutrophils # (1.3-7.7) k/uL ABG pH (7.35-7.45) ABG pO2 (83-108) mmHg ABG HCO3 (21-25) mmol/L ABG Total CO2 (19-24) mmol/L Sodium (137-145) mmol/L Potassium (3.5-5.1) mmol/L Carbon Dioxide (22-30) mmol/L BUN (9-20) mg/dL Creatinine (0.66-1.25) mg/dL Glucose (74-99) mg/dL POC Glucose (mg/dL) 164 H 155 H 146 H (75-99) mg/dL Magnesium (1.6-2.3) mg/dL AST (17-59) U/L Albumin (3.5-5.0) g/dL 05/12/17 05/12/17 05/12/17 Range/Units 18:57 20:53 23:19 WBC (3.8-10.6) k/uL RBC (4.30-5.90) m/uL Hgb (13.0-17.5) gm/dL Hct (39.0-53.0) % MCV (80.0-100.0) fL Neutrophils # (1.3-7.7) k/uL ABG pH (7.35-7.45) ABG pO2 (83-108) mmHg ABG HCO3 (21-25) mmol/L ABG Total CO2 (19-24) mmol/L Sodium (137-145) mmol/L Potassium (3.5-5.1) mmol/L Carbon Dioxide (22-30) mmol/L BUN (9-20) mg/dL Creatinine (0.66-1.25) mg/dL Glucose (74-99) mg/dL POC Glucose (mg/dL) 167 H 181 H 183 H (75-99) mg/dL Magnesium (1.6-2.3) mg/dL AST (17-59) U/L Albumin (3.5-5.0) g/dL 05/13/17 05/13/17 05/13/17 Range/Units 00:32 02:22 04:27 WBC (3.8-10.6) k/uL RBC (4.30-5.90) m/uL Hgb (13.0-17.5) gm/dL Hct (39.0-53.0) % MCV (80.0-100.0) fL Neutrophils # (1.3-7.7) k/uL ABG pH (7.35-7.45) ABG pO2 (83-108) mmHg ABG HCO3 (21-25) mmol/L ABG Total CO2 (19-24) mmol/L Sodium (137-145) mmol/L Potassium (3.5-5.1) mmol/L Carbon Dioxide (22-30) mmol/L BUN (9-20) mg/dL Creatinine (0.66-1.25) mg/dL Glucose (74-99) mg/dL POC Glucose (mg/dL) 185 H 178 H 184 H (75-99) mg/dL Magnesium (1.6-2.3) mg/dL AST (17-59) U/L Albumin (3.5-5.0) g/dL 05/13/17 05/13/17 05/13/17 Range/Units 04:30 04:30 05:07 WBC 11.3 H (3.8-10.6) k/uL RBC 2.74 L (4.30-5.90) m/uL Hgb 9.0 L (13.0-17.5) gm/dL Hct 27.8 L (39.0-53.0) % MCV 101.6 H (80.0-100.0) fL Neutrophils # 8.8 H (1.3-7.7) k/uL ABG pH (7.35-7.45) ABG pO2 (83-108) mmHg ABG HCO3 (21-25) mmol/L ABG Total CO2 (19-24) mmol/L Sodium 148 H (137-145) mmol/L Potassium 3.4 L (3.5-5.1) mmol/L Carbon Dioxide 33 H (22-30) mmol/L BUN 109 H* (9-20) mg/dL Creatinine 2.76 H (0.66-1.25) mg/dL Glucose 169 H (74-99) mg/dL POC Glucose (mg/dL) 161 H (75-99) mg/dL Magnesium 2.4 H (1.6-2.3) mg/dL AST 61 H (17-59) U/L Albumin 3.3 L (3.5-5.0) g/dL 05/13/17 05/13/17 05/13/17 Range/Units 05:08 08:10 09:50 WBC (3.8-10.6) k/uL RBC (4.30-5.90) m/uL Hgb (13.0-17.5) gm/dL Hct (39.0-53.0) % MCV (80.0-100.0) fL Neutrophils # (1.3-7.7) k/uL ABG pH 7.55 H (7.35-7.45) ABG pO2 80 L (83-108) mmHg ABG HCO3 34 H (21-25) mmol/L ABG Total CO2 35 H (19-24) mmol/L Sodium (137-145) mmol/L Potassium (3.5-5.1) mmol/L Carbon Dioxide (22-30) mmol/L BUN (9-20) mg/dL Creatinine (0.66-1.25) mg/dL Glucose (74-99) mg/dL POC Glucose (mg/dL) 166 H 178 H (75-99) mg/dL Magnesium (1.6-2.3) mg/dL AST (17-59) U/L Albumin (3.5-5.0) g/dL Microbiology - Last 24 Hours (Table) 05/12/17 21:20 Gram Stain - Preliminary Sputum Sputum Culture - Preliminary 05/09/17 09:12 Blood Culture - Preliminary Blood No Growth after 72 hours Assessment and Plan Plan: ASSESSMENT: Bilateral carotid stenosis, s/p right carotid endarterectomy, POD #8 Acute cardiopulmonary arrest requiring mechanical ventilation, likely secondary to acute pulmonary edema with a downtime of at least 20 minutes Acute exacerbation of systolic congestive heart failure, ejection fraction 20% Suspected acute non-ST elevated SD Acute kidney injury, suspect secondary to prolonged cardiopulmonary arrest Hypoxic/anoxic encephalopathy secondary to prolonged cardiopulmonary arrest Hypertension Diabetes mellitus, type II, utilizing insulin pump at home Coronary artery disease Atrial fibrillation, on [facility] anticoagulation with Pradaxa Hematuria, thought to be secondary to Pradaxa which has been placed on hold, improving Hyperlipidemia Osteoarthritis with previous multiple joint replacements Morbid obesity: BMI 42.8 PLAN: Continue ventilator management per Dr. Kimball Hold sedation if patient is able to tolerate to assess neurological status Continue insulin drip per protocol Nephrology on consult. Continue Lasix 60 mg IV every 8 hours Monitor blood pressure. Continue hydralazine PRN for hypertension. Coreg added per pulmonary Neurology on consult. Appreciate recommendations and input. Monitor hematuria. Continue to hold Pradaxa Continue tube feedings Home meds as appropriate Monitor labs GI prophylaxis: Protonix 40mg IV BID DVT prophylaxis: CONCEPCIÓN hose and Venodyne's to bilateral lower extremities Monitor vital signs and address as appropriate Further recommendations pending patient's course Nurse practitioner note has been reviewed by physician. Signing provider agrees with the documented findings, assessment, and plan of care.
[2017-05-13 14:12] LABS: Glucose,Whole Blood 165 mg/dL (75-99)
--- NOTE | 2017-05-13 15:09 | PN ---
PROGRESS NOTE Patient is seen for followup for acute kidney injury. He was completely off of sedation yesterday. This morning, patient remains on the vent, FiO2 about 50%. He continues to have good urine output. He is in negative balance for about 6 L. PHYSICAL EXAMINATION: Blood pressure is 114/48, heart rate 81 per minute, patient is afebrile. Examination of the heart, S1, S2. Examination of the lungs, bilateral breath sounds are heard. Abdomen is soft, distended, nontender. Examination of the lower extremities shows edema 1+ bilaterally. The patient has not been moving his left upper extremity as much as his other extremities. LABS: Show sodium 148, potassium 3.4, chloride 99, BUN 109, serum creatinine 2.76, hemoglobin 9.0. ASSESSMENT: 1. Acute kidney injury secondary to hypotension, hypoperfusion and cardiac arrest, currently nonoliguric with improving renal function. 2. Hypernatremia. Will add free water down the feeding tube along with the tube feedings. 3. Hypokalemia secondary to diuresis. Will replace. 4. Status post cardiac arrest. 5. Congestive heart failure, acute on top of chronic, mainly systolic, ejection fraction of about 20%. 6. Status post right carotid endarterectomy. PLAN: Continue the Lasix at current dose, decreased to 40 from tomorrow, add free water with the feeding tube and replace potassium. Repeat labs in a.m. Continue to avoid nephrotoxic agents. MMODL / IJN: [id number] /
[2017-05-13 16:40] LABS: Glucose,Whole Blood 152 mg/dL (75-99)
--- NOTE | 2017-05-13 17:54 | P.PN ---
Subjective Progress Note Date: 05/13/17 This patient is a 76-year-old male who is status post right carotid endarterectomy and is postoperative day #8. The patient was coming along well and 2 days after undergoing his right carotid endarterectomy he went into cardiorespiratory arrest. His downtime was estimated to be up to 20-30 minutes before he was resuscitated. This placed on the ventilator and has been slowly showing some progress. Today the patient is off of propofol and has been doing much better and more awake. He is been opening his eyes spontaneously. According to family members were at bedside they seem to think he is recognizing them. He does follow some simple commands. He remains intubated on the ventilator. He is been off of all sedation since early this morning. He did undergo a computed tomography scan of the brain which failed to reveal any acute changes. He underwent a routine EEG which revealed moderate to severe slowing. Today he does seem to show more improvement in his overall mental status. He does withdraw to pain overall extremities. We will continue to follow his progress closely in the intensive care unit. He is tolerating his tube feedings well. There is no evidence of sepsis or infection. His blood pressure is under fairly good control. We will continue to follow his progress in the ICU. According to the ICU nurse taking care of him today plans are to consider weaning parameters tomorrow. We will have a better assessment of his overall neurological status once he is extubated. His overall prognosis at this time remains guarded. Objective - Vital Signs Vital signs: Vital Signs Temp 99.3 F 05/13/17 12:00 Pulse 71 05/13/17 17:36 Resp 21 05/13/17 14:00 BP 120/49 05/13/17 14:00 Pulse Ox 93 L 05/13/17 14:00 Intake & Output 05/12/17 05/13/17 05/13/17 18:59 06:59 18:59 Intake Total 1325.566 322.152 5927.790 Output Total 4633 3700 1975 Balance -3307.434 -3036.001 -893.210 Weight 146.1 kg 137.1 kg 137.1 kg Intake: IV 290.0 167.5 140 KVO 240 130 140 Piperacillin-Tazobactam 3 37.5 .375 gm In Dextrose/Water 1 50ml.bag @ 12.5 mls/hr IVPB Q12H [facility] Rx#: [id number] Piperacillin-Tazobactam 3 50.0 .375 gm In Dextrose/Water 1 50ml.bag @ 12.5 mls/hr IVPB Q8HR [facility] Rx#: [id number] Intake, IV Titration 440.566 151.499 91.790 Amount Furosemide 250 mg In 209.333 Sodium Chloride 0.9% 225 ml @ 5 MG/HR 5 mls/hr IVP .Q24H [facility] Rx#:[id number] Insulin Regular 100 unit 106.233 138.999 64.400 In Sodium Chloride 0.9% 100 ml @ Per Protocol IV .Q0M [facility] Rx#:[id number] Piperacillin-Tazobactam 3 25.0 12.5 .375 gm In Dextrose/Water 1 50ml.bag @ 12.5 mls/hr IVPB Q12H [facility] Rx#: [id number] Propofol 1,000 mg In 100 27.39 Empty Bag 1 bag @ Titrate IV .Q0M [facility] Rx#: [id number] Oral 145 Tube Feeding 450 315 450 Other 30 400 Output: Urine 4633 3700 1975 Other: Voiding Method Indwelling Catheter Indwelling Catheter Indwelling Catheter # Voids 2 # Bowel Movements 1 ABP, PAP, CO, CI - Last Documented Arterial Blood Pressure 140/51 - Exam Physical examination: PHYSICAL EXAMINATION: Patient is resting comfortably in bed. He is intubated on the ventilator with no sedation. VITAL SIGNS: Blood pressure is [140/51]. Heart rate is [77]. Respiration is [21] . Temperature is [99.3]. HEENT: Head is atraumatic, neck is supple, there were no carotid bruits. CHEST: Lungs are clear to auscultation and percussion. CARDIAC: S1, S2 normal rate and rhythm. There is no murmur. ABDOMEN: Soft and nontender. Bowel sounds are present. EXTREMITIES: There is no pedal edema. Peripheral pulses are present. Neurological examination: Patient remains intubated on the ventilator. He is more awake and alert today. He is following simple commands and does nod his head. He remains off of sedation at this time. He does do hand squeeze occasionally to family. Cranial nerves II through XII are grossly intact. Deep tendon reflexes are 1+ and symmetric. Plantar responses flexor bilaterally. Patient does seem to be more awake and alert today as compared to yesterday. - Labs CBC & Chem 7: 05/13/17 04:30 05/13/17 04:30 Labs: Abnormal Lab Results - Last 24 Hours (Table) 05/12/17 05/12/17 05/12/17 Range/Units 18:12 18:57 20:53 WBC (3.8-10.6) k/uL RBC (4.30-5.90) m/uL Hgb (13.0-17.5) gm/dL Hct (39.0-53.0) % MCV (80.0-100.0) fL Neutrophils # (1.3-7.7) k/uL ABG pH (7.35-7.45) ABG pO2 (83-108) mmHg ABG HCO3 (21-25) mmol/L ABG Total CO2 (19-24) mmol/L Sodium (137-145) mmol/L Potassium (3.5-5.1) mmol/L Carbon Dioxide (22-30) mmol/L BUN (9-20) mg/dL Creatinine (0.66-1.25) mg/dL Glucose (74-99) mg/dL POC Glucose (mg/dL) 146 H 167 H 181 H (75-99) mg/dL Magnesium (1.6-2.3) mg/dL AST (17-59) U/L Albumin (3.5-5.0) g/dL 05/12/17 05/13/17 05/13/17 Range/Units 23:19 00:32 02:22 WBC (3.8-10.6) k/uL RBC (4.30-5.90) m/uL Hgb (13.0-17.5) gm/dL Hct (39.0-53.0) % MCV (80.0-100.0) fL Neutrophils # (1.3-7.7) k/uL ABG pH (7.35-7.45) ABG pO2 (83-108) mmHg ABG HCO3 (21-25) mmol/L ABG Total CO2 (19-24) mmol/L Sodium (137-145) mmol/L Potassium (3.5-5.1) mmol/L Carbon Dioxide (22-30) mmol/L BUN (9-20) mg/dL Creatinine (0.66-1.25) mg/dL Glucose (74-99) mg/dL POC Glucose (mg/dL) 183 H 185 H 178 H (75-99) mg/dL Magnesium (1.6-2.3) mg/dL AST (17-59) U/L Albumin (3.5-5.0) g/dL 05/13/17 05/13/17 05/13/17 Range/Units 04:27 04:30 04:30 WBC 11.3 H (3.8-10.6) k/uL RBC 2.74 L (4.30-5.90) m/uL Hgb 9.0 L (13.0-17.5) gm/dL Hct 27.8 L (39.0-53.0) % MCV 101.6 H (80.0-100.0) fL Neutrophils # 8.8 H (1.3-7.7) k/uL ABG pH (7.35-7.45) ABG pO2 (83-108) mmHg ABG HCO3 (21-25) mmol/L ABG Total CO2 (19-24) mmol/L Sodium 148 H (137-145) mmol/L Potassium 3.4 L (3.5-5.1) mmol/L Carbon Dioxide 33 H (22-30) mmol/L BUN 109 H* (9-20) mg/dL Creatinine 2.76 H (0.66-1.25) mg/dL Glucose 169 H (74-99) mg/dL POC Glucose (mg/dL) 184 H (75-99) mg/dL Magnesium 2.4 H (1.6-2.3) mg/dL AST 61 H (17-59) U/L Albumin 3.3 L (3.5-5.0) g/dL 05/13/17 05/13/17 05/13/17 Range/Units 05:07 05:08 08:10 WBC (3.8-10.6) k/uL RBC (4.30-5.90) m/uL Hgb (13.0-17.5) gm/dL Hct (39.0-53.0) % MCV (80.0-100.0) fL Neutrophils # (1.3-7.7) k/uL ABG pH 7.55 H (7.35-7.45) ABG pO2 80 L (83-108) mmHg ABG HCO3 34 H (21-25) mmol/L ABG Total CO2 35 H (19-24) mmol/L Sodium (137-145) mmol/L Potassium (3.5-5.1) mmol/L Carbon Dioxide (22-30) mmol/L BUN (9-20) mg/dL Creatinine (0.66-1.25) mg/dL Glucose (74-99) mg/dL POC Glucose (mg/dL) 161 H 166 H (75-99) mg/dL Magnesium (1.6-2.3) mg/dL AST (17-59) U/L Albumin (3.5-5.0) g/dL 05/13/17 05/13/17 05/13/17 Range/Units 09:50 12:05 14:11 WBC (3.8-10.6) k/uL RBC (4.30-5.90) m/uL Hgb (13.0-17.5) gm/dL Hct (39.0-53.0) % MCV (80.0-100.0) fL Neutrophils # (1.3-7.7) k/uL ABG pH (7.35-7.45) ABG pO2 (83-108) mmHg ABG HCO3 (21-25) mmol/L ABG Total CO2 (19-24) mmol/L Sodium (137-145) mmol/L Potassium (3.5-5.1) mmol/L Carbon Dioxide (22-30) mmol/L BUN (9-20) mg/dL Creatinine (0.66-1.25) mg/dL Glucose (74-99) mg/dL POC Glucose (mg/dL) 178 H 196 H 165 H (75-99) mg/dL Magnesium (1.6-2.3) mg/dL AST (17-59) U/L Albumin (3.5-5.0) g/dL 05/13/17 Range/Units 16:38 WBC (3.8-10.6) k/uL RBC (4.30-5.90) m/uL Hgb (13.0-17.5) gm/dL Hct (39.0-53.0) % MCV (80.0-100.0) fL Neutrophils # (1.3-7.7) k/uL ABG pH (7.35-7.45) ABG pO2 (83-108) mmHg ABG HCO3 (21-25) mmol/L ABG Total CO2 (19-24) mmol/L Sodium (137-145) mmol/L Potassium (3.5-5.1) mmol/L Carbon Dioxide (22-30) mmol/L BUN (9-20) mg/dL Creatinine (0.66-1.25) mg/dL Glucose (74-99) mg/dL POC Glucose (mg/dL) 152 H (75-99) mg/dL Magnesium (1.6-2.3) mg/dL AST (17-59) U/L Albumin (3.5-5.0) g/dL Microbiology - Last 24 Hours (Table) 05/13/17 00:01 Urine Culture - Preliminary Urine,Catheterized 05/09/17 09:12 Blood Culture - Preliminary Blood No Growth after 96 hours 05/12/17 21:20 Gram Stain - Preliminary Sputum Sputum Culture - Preliminary Assessment and Plan (1) Cardiopulmonary arrest with successful resuscitation Current Visit: Yes Status: Acute Code(s): I46.9 - CARDIAC ARREST, CAUSE UNSPECIFIED SNOMED Code(s): 794266779 (2) Anoxic encephalopathy Current Visit: Yes Status: Acute Code(s): G93.1 - ANOXIC BRAIN DAMAGE, NOT ELSEWHERE CLASSIFIED SNOMED Code(s): 795789994 (3) History of right-sided carotid endarterectomy Current Visit: Yes Status: Acute Code(s): Z98.890 - OTHER SPECIFIED POSTPROCEDURAL STATES SNOMED Code(s): 193366924 (4) Diabetes mellitus type 2 in obese Current Visit: Yes Status: Chronic Code(s): E11.69 - TYPE 2 DIABETES MELLITUS WITH OTHER SPECIFIED COMPLICATION; E66.9 - OBESITY, UNSPECIFIED SNOMED Code(s): 17910716 (5) Paroxysmal atrial fibrillation Current Visit: Yes Status: Chronic Code(s): I48.0 - PAROXYSMAL ATRIAL FIBRILLATION SNOMED Code(s): 962765296 Plan: This patient is a 76-year-old male who is being followed for cardiopulmonary arrests in severe anoxic encephalopathy following this event. Patient remains intubated and has been off of all sedation since this morning. He is opening his eyes and is following simple commands. Neurologically he is showing some improvement and we will be able to assess him further once he is extubated. He is moving all 4 extremities. We will consider a repeat EEG possibly early next week for comparison to his initial one. Plans are for possible weaning parameters tomorrow and depending on his response may be considered for extubation. We will continue to follow his progress closely during this admission. This case was discussed at length with the patient's son who is at bedside. All of his questions were answered. He is aware of his overall neurological status today. We have suggested to continue current treatment plans and we will reevaluate him again tomorrow. His overall prognosis at this time remains guarded.
[2017-05-13 18:17] LABS: Glucose,Whole Blood 165 mg/dL (75-99)
[2017-05-13 20:02] LABS: Glucose,Whole Blood 156 mg/dL (75-99)
[2017-05-13 22:04] LABS: Glucose,Whole Blood 167 mg/dL (75-99)
[2017-05-14 00:09] LABS: Glucose,Whole Blood 164 mg/dL (75-99)
[2017-05-14] MEDS: FUROSEMIDE 10 MG/ML 10 ML VIAL IV SCH ×2 (00:30→08:48)
[2017-05-14 02:45] LABS: Glucose,Whole Blood 174 mg/dL (75-99)
[2017-05-14] MEDS: IPRATROPIUM-ALBUTEROL 3 ML NEB INHALATION SCH ×5 (03:00→19:27)
[2017-05-14] MEDS: hydrALAZINE HCL 20 MG/ML 1 ML VIAL IVP PRN ×3 (03:50→10:44)
[2017-05-14] MEDS: MORPHINE SULFATE 4 MG/ML SYRINGE IVP PRN ×2 (03:57→21:05)
[2017-05-14 04:55] LABS: Glucose,Whole Blood 146 mg/dL (75-99)
[2017-05-14 04:55] LABS: ABG Base Excess 11.3 mmol/L; ABG HCO3 34 mmol/L (21-25); ABG Oxygen Saturation 92.7 % (94-97); ABG PCO2 42 mmHg (35-45); ABG PH 7.52 (7.35-7.45); ABG PO2 65 mmHg (83-108); ABG TCO2 35 mmol/L (19-24)
[2017-05-14 05:13] LABS: Basophils % (A) 0 %; Eosinophils # (A) 0.2 k/uL (0-0.7); Eosinophils % (A) 2 %; HCT 30.7 % (39.0-53.0); HGB 9.6 gm/dL (13.0-17.5); Lymphocytes # (A) 1.3 k/uL (1.0-4.8); Lymphocytes % (A) 9 %; MCH 32.4 pg (25.0-35.0); MCHC 31.4 g/dL (31.0-37.0); MCV 103.1 fL (80.0-100.0); Macrocytosis Slight; Mean Platelet Volume 9.3; Monocytes # (A) 1.2 k/uL (0-1.0); Monocytes % (A) 8 %; Neutrophils # (A) 11.3 k/uL (1.3-7.7); Neutrophils % (A) 78 %; Platelet Count 287 k/uL (150-450); RBC 2.98 m/uL (4.30-5.90); RDW 14.6 % (11.5-15.5); WBC 14.4 k/uL (3.8-10.6)
[2017-05-14] MEDS: PIPERACILLIN-TAZOBACTAM 3.375 GM in DEXTROSE/WATER 1 50ML.BAG IVPB SCH ×2 (05:53→19:35)
[2017-05-14 05:56] LABS: Albumin 3.6 g/dL (3.5-5.0); Calcium 9.1 mg/dL (8.4-10.2); Magnesium 2.5 mg/dL (1.6-2.3); Phosphorus 6.5 mg/dL (2.5-4.5); Potassium 3.3 mmol/L (3.5-5.1)
[2017-05-14] MEDS: CARVEDILOL 12.5 MG TAB PO SCH ×2 (06:00→18:50)
[2017-05-14] MEDS: PROPOFOL 1,000 MG in EMPTY BAG 1 BAG IV SCH ×2 (06:03→09:55)
[2017-05-14] MEDS: INSULIN REGULAR 100 UNIT in SODIUM CHLORIDE 0.9% 100 ML IV SCH ×3 (06:21→20:48)
[2017-05-14 06:22] LABS: Glucose,Whole Blood 141 mg/dL (75-99)
--- NOTE | 2017-05-14 07:34 | XR ---
EXAMINATION TYPE: XR chest 1V confirm line [facility] DATE OF EXAM: 05/14/2017 COMPARISON: Prior chest x-ray 05/13/2017 HISTORY: Intubated TECHNIQUE: Single frontal view of the chest is obtained. FINDINGS: Endotracheal tube and NG tube are overlying appropriate positions. Patient is rotated. No evident pneumothorax or sizable effusion. Lung volumes are low. Heart size is stable. Central vascula rity appears prominently, interstitium is increased. There are overlying cardiac leads. Suspect some perihilar groundglass opacity noted. IMPRESSION: There may be a component of congestive heart failure with pulmonary edema or alveolitis, correlate for pneumonia. Follow-up recommended.
[2017-05-14 08:07] LABS: Glucose,Whole Blood 152 mg/dL (75-99)
[2017-05-14] MEDS: PANTOPRAZOLE 40 MG/10 ML VIAL IVP SCH ×2 (08:51→21:02)
[2017-05-14] MEDS: FUROSEMIDE 10 MG/ML 4 ML VIAL IV SCH ×2 (08:52→16:59)
[2017-05-14] MEDS: CHLORHEXIDINE GLUCONATE 15 ML CUP MUCOUS MEM SCH (08:53)
[2017-05-14] MEDS: SENNOSIDES-DOCUSATE SODIUM 1 EACH TAB PO SCH ×2 (08:53→20:51)
[2017-05-14] MEDS: METOLAZONE 5 MG TAB PO SCH ×2 (08:53→20:51)
[2017-05-14] MEDS: ASPIRIN 81 MG PO SCH (08:53)
--- NOTE | 2017-05-14 09:44 | CDI ---
Last Revision, February 2017 Documentation Clarification Form Date: 05/14/2017 9:35:00 AM From: Nguyen ParsonsGlassSOFI, CCDS Admit Date: 05/06/2017 11:59:00 AM Patient Name: Mo Mitchell Visit Number: [id number] Discharge Date: ATTENTION: The Clinical Documentation Specialists (CDI) and [facility] Coding Staff appreciate your assistance in clarifying documentation. Please respond to the clarification below the line at the bottom and electronically sign. The CDI & [facility] Coding staff will review the response and follow-up if needed. Please note: Queries are made part of the Legal Health Record. If you have any questions, please contact the author of this message via ITS. Dr. Denise Peter: History/Risk Factors: Atrial Fibrillation, CAD, DM, GERD, Hyperlipidemia, Hypertension, OA, Sleep Apnea. Clinical Indicators: Presented for elective right carotid endarterectomy with patch angioplasty for severe right internal carotid artery stenosis. Status post surgery, went into cardiopulmonary arrest, developed acute kidney injury. Per 05/11 Nephrology progress note: "Possible chronic kidney disease with previous creatinine at 1.29 mg/dL and previously 1.6 in January of 2017." Current BUN/CR/GFR: 114 / 3. Treatment: ICU, Remains on ventilation. IV Apresoline, K Bicarb via NGT, IV Zosyn, IV Lasix, IV Diamox In order to capture the severity of condition, please clarify if the condition signifies: CKD Stage 1 (GFR > 90) CKD Stage 2 (GFR 60-89) CKD Stage 3 (GFR 30-59) CKD Stage 4 (GFR 15-29) CKD Stage 5 (GFR <15) ESRD Other, please specify Unable to determine Please continue to document in your progress notes and discharge summary in order to capture severity of illness and risk of mortality. Include clinical findings that support your diagnosis. MTDD
[2017-05-14 10:02] LABS: Glucose,Whole Blood 151 mg/dL (75-99)
[2017-05-14] MEDS: POTASSIUM BICARBONATE/CIT AC 20 MEQ TABLET.EFF NG-TUBE SCH ×4 (10:06→18:51)
--- NOTE | 2017-05-14 10:49 | P.PN ---
Subjective Progress Note Date: 05/14/17 Principal diagnosis: carotid stenosis This is a 76-year-old gentleman who is status post carotid endarterectomy with acute respiratory arrest. Patient remains intubated. He continues to have worsening renal function with a BE ON of 114 and creatinine of 3.2. The Lasix has been decreased by nephrology. He is currently on 40 mg IV push every 12 hours. Chest x-ray this morning shows possible component of congestive heart failure with pulmonary edema or alveolitis, correlate for pneumonia. Objective - Vital Signs Vital signs: Vital Signs Temp 98.1 F 05/14/17 08:00 Pulse 65 05/14/17 10:00 Resp 20 05/14/17 10:00 BP 99/46 05/14/17 10:00 Pulse Ox 95 05/14/17 10:00 Intake & Output 05/13/17 05/14/17 05/14/17 18:59 06:59 18:59 Intake Total 1718.390 400.35 645.692 Output Total 3075 2680 345 Balance -1356.610 -2279.65 300.692 Weight 137.1 kg 133.1 kg Intake: IV 290 220 80 KVO 240 220 80 Piperacillin-Tazobactam 3 50 .375 gm In Dextrose/Water 1 50ml.bag @ 12.5 mls/hr IVPB Q12H JOSÉ MIGUEL Rx#: [id number] Intake, IV Titration 163.390 0.35 95.692 Amount Insulin Regular 100 unit 101.000 0.35 34.400 In Sodium Chloride 0.9% 100 ml @ Per Protocol IV .Q0M JOSÉ MIGUEL Rx#:[id number] Propofol 1,000 mg In 62.39 0 61.292 Empty Bag 1 bag @ Titrate IV .Q0M JOSÉ MIGUEL Rx#: [id number] Oral 145 Tube Feeding 720 180 270 Other 400 200 Output: Urine 3075 2680 345 Other: Voiding Method Indwelling Catheter Indwelling Catheter ABP, PAP, CO, CI - Last Documented Arterial Blood Pressure 122/42 - Exam PHYSICAL EXAMINATION: HEENT: Head is atraumatic, normocephalic. Neck with ecchymosis, right sided incision clean, dry and intact. HEART EXAMINATION: Heart sounds regular, S1 and S2 normal. No murmur or gallop heard. CHEST EXAMINATION: Lungs reveal diminished air entry. No chest wall tenderness is noted on palpation or with deep breathing. ABDOMEN: Soft, obese, nontender. Bowel sounds are heard. No organomegaly noted. EXTREMITIES: diminished peripheral pulses with no evidence of peripheral edema and no calf tenderness noted. NEUROLOGIC patient is intubated. . - Labs CBC & Chem 7: 05/14/17 05:00 05/14/17 05:00 Labs: Abnormal Lab Results - Last 24 Hours (Table) 05/13/17 05/13/17 05/13/17 Range/Units 12:05 14:11 16:38 WBC (3.8-10.6) k/uL RBC (4.30-5.90) m/uL Hgb (13.0-17.5) gm/dL Hct (39.0-53.0) % MCV (80.0-100.0) fL Neutrophils # (1.3-7.7) k/uL Monocytes # (0-1.0) k/uL ABG pH (7.35-7.45) ABG pO2 (83-108) mmHg ABG HCO3 (21-25) mmol/L ABG Total CO2 (19-24) mmol/L ABG O2 Saturation (94-97) % Sodium (137-145) mmol/L Potassium (3.5-5.1) mmol/L Chloride (98-107) mmol/L Carbon Dioxide (22-30) mmol/L BUN (9-20) mg/dL Creatinine (0.66-1.25) mg/dL Glucose (74-99) mg/dL POC Glucose (mg/dL) 196 H 165 H 152 H (75-99) mg/dL Phosphorus (2.5-4.5) mg/dL Magnesium (1.6-2.3) mg/dL AST (17-59) U/L 05/13/17 05/13/17 05/13/17 Range/Units 18:15 20:00 22:03 WBC (3.8-10.6) k/uL RBC (4.30-5.90) m/uL Hgb (13.0-17.5) gm/dL Hct (39.0-53.0) % MCV (80.0-100.0) fL Neutrophils # (1.3-7.7) k/uL Monocytes # (0-1.0) k/uL ABG pH (7.35-7.45) ABG pO2 (83-108) mmHg ABG HCO3 (21-25) mmol/L ABG Total CO2 (19-24) mmol/L ABG O2 Saturation (94-97) % Sodium (137-145) mmol/L Potassium (3.5-5.1) mmol/L Chloride (98-107) mmol/L Carbon Dioxide (22-30) mmol/L BUN (9-20) mg/dL Creatinine (0.66-1.25) mg/dL Glucose (74-99) mg/dL POC Glucose (mg/dL) 165 H 156 H 167 H (75-99) mg/dL Phosphorus (2.5-4.5) mg/dL Magnesium (1.6-2.3) mg/dL AST (17-59) U/L 05/14/17 05/14/17 05/14/17 Range/Units 00:06 02:42 04:50 WBC (3.8-10.6) k/uL RBC (4.30-5.90) m/uL Hgb (13.0-17.5) gm/dL Hct (39.0-53.0) % MCV (80.0-100.0) fL Neutrophils # (1.3-7.7) k/uL Monocytes # (0-1.0) k/uL ABG pH 7.52 H (7.35-7.45) ABG pO2 65 L (83-108) mmHg ABG HCO3 34 H (21-25) mmol/L ABG Total CO2 35 H (19-24) mmol/L ABG O2 Saturation 92.7 L (94-97) % Sodium (137-145) mmol/L Potassium (3.5-5.1) mmol/L Chloride (98-107) mmol/L Carbon Dioxide (22-30) mmol/L BUN (9-20) mg/dL Creatinine (0.66-1.25) mg/dL Glucose (74-99) mg/dL POC Glucose (mg/dL) 164 H 174 H (75-99) mg/dL Phosphorus (2.5-4.5) mg/dL Magnesium (1.6-2.3) mg/dL AST (17-59) U/L 05/14/17 05/14/17 05/14/17 Range/Units 04:53 05:00 05:00 WBC 14.4 H (3.8-10.6) k/uL RBC 2.98 L (4.30-5.90) m/uL Hgb 9.6 L (13.0-17.5) gm/dL Hct 30.7 L (39.0-53.0) % MCV 103.1 H (80.0-100.0) fL Neutrophils # 11.3 H (1.3-7.7) k/uL Monocytes # 1.2 H (0-1.0) k/uL ABG pH (7.35-7.45) ABG pO2 (83-108) mmHg ABG HCO3 (21-25) mmol/L ABG Total CO2 (19-24) mmol/L ABG O2 Saturation (94-97) % Sodium 147 H (137-145) mmol/L Potassium 3.3 L (3.5-5.1) mmol/L Chloride 97 L (98-107) mmol/L Carbon Dioxide 35 H (22-30) mmol/L BUN 114 H* (9-20) mg/dL Creatinine 3.20 H (0.66-1.25) mg/dL Glucose 140 H (74-99) mg/dL POC Glucose (mg/dL) 146 H (75-99) mg/dL Phosphorus 6.5 H (2.5-4.5) mg/dL Magnesium 2.5 H (1.6-2.3) mg/dL AST 62 H (17-59) U/L 05/14/17 05/14/17 05/14/17 Range/Units 06:20 08:05 09:59 WBC (3.8-10.6) k/uL RBC (4.30-5.90) m/uL Hgb (13.0-17.5) gm/dL Hct (39.0-53.0) % MCV (80.0-100.0) fL Neutrophils # (1.3-7.7) k/uL Monocytes # (0-1.0) k/uL ABG pH (7.35-7.45) ABG pO2 (83-108) mmHg ABG HCO3 (21-25) mmol/L ABG Total CO2 (19-24) mmol/L ABG O2 Saturation (94-97) % Sodium (137-145) mmol/L Potassium (3.5-5.1) mmol/L Chloride (98-107) mmol/L Carbon Dioxide (22-30) mmol/L BUN (9-20) mg/dL Creatinine (0.66-1.25) mg/dL Glucose (74-99) mg/dL POC Glucose (mg/dL) 141 H 152 H 151 H (75-99) mg/dL Phosphorus (2.5-4.5) mg/dL Magnesium (1.6-2.3) mg/dL AST (17-59) U/L Microbiology - Last 24 Hours (Table) 05/12/17 21:20 Blood Culture - Preliminary Blood No Growth after 24 hours 05/13/17 00:01 Urine Culture - Preliminary Urine,Catheterized 05/09/17 09:12 Blood Culture - Preliminary Blood No Growth after 96 hours 05/12/17 21:20 Gram Stain - Preliminary Sputum Sputum Culture - Preliminary Assessment and Plan Assessment: #1 status post carotid endarterectomy #2 acute cardiopulmonary arrest requiring intubation #3 possible Non-STEMI #4 acute on chronic systolic CHF Plan: From cardiology perspective, medications were reviewed and will continue the same. Continue diuretics per nephrology. [employer] note has been reviewed, I agree with a documented findings and plan of care. Patient was seen and examined.
--- NOTE | 2017-05-14 10:52 | P.PN ---
Subjective Progress Note Date: 05/14/17 This is a 76-year-old male patient with status post carotid endarterectomy on the right and the patient is postop day #6. Note that the patient went into acute cardio pulmonary arrest postop day #2 and he was done with initially acute respiratory arrest and subsequent cardiac arrest for a total of 30 minutes during which the patient received a total of 10 mg of epinephrine and 2 A of bicarb and subsequently the patient was intubated and placed on mechanical ventilator and since then the patient has remained intubated. On today's evaluation of 05/11/2017, the patient is sedated on Diprivan at 45 mg per KG pigmented. The patient is heavily sedated. He occasionally bites the tube and he withdraws to some stimulation to his lower extremities bilaterally. Hemodynamically, the patient is on no pressors. The patient is still in pulmonary edema and his chest x-ray and the patient is currently on Lasix drip at 10 mg an hour. Urine output is more than 100 mL an hour daily basis. The urine is somewhat bloody as the patient had some bleeding related to Pradaxa intake and Pradaxa is currently off. The patient is on assist- control mode of ventilation at the rate of 26, tidal volume 500, FiO2 of 50% and a PEEP of 15. The blood gases from this morning showed a pH of 7.49, with a pCO2 of 39 and pO2 of 113. The chest x-ray still showing pulmonary edema. Minimal amount of bloody secretions from his orotracheal tube. He is synchronous with the mechanical ventilator. Breath sounds are equal and symmetrical bilaterally. Echocardiogram showed an ejection fraction of less than 20%. The patient is still in acute kidney injury. Creatinine is up to 3.3 yet he is nonoliguric at this stage and nephrology is on the case. We are going to continue the Lasix drip at the same rate for now. The patient is being controlled with an insulin drip in regards to his blood sugar. The patient has not been given any sedation holiday since his cardiac/pulmonary arrest. The patient is on tube feeds and receding vital high protein at the rate of 60 mL an hour. Otherwise, no other significant events overnight. The CAT scan of the brain that was obtained on showed no acute abnormalities are then chronic cerebral atrophy. The patient has a hematoma over the right neck area which is currently stable and soft and the incision site is clean. On 05/13/2079 I'm seeing this patient for a follow-up in the patient was given a sedation holiday and he is opening up his eyes. He is not following any simple commands yet. No preferential gaze. No nystagmus. No agitation. He is doing some limited activity as far as movement in his upper extremities. He has a decent cough. The patient has no seizure activity. Incision over the right neck is clean and dry and the ecchymosis and hematoma over the right neck area soft and has not progressed. He is afebrile. He is on a mechanical ventilator. The PEEP has been drop down to 10 with an FiO2 of 50% and the patient remains on a tidal volume of 500 with a rate of 26. Chest x-ray shows some improvement in the volume status. The blood gases from today showed a pH of 7.49 with a pCO2 of 40 and pO2 of 74. The patient is on IV Lasix 60 mg every 8 hours. He is getting into a negative fluid balance. Hematuria is also improving. Otherwise the patient is producing adequate amount of urine output. Creatinine today is at 3.1 which is stable and not worse compared to yesterday. He is afebrile. He is tolerating his tube feeds. He was given a Dulcolax suppository. He is on no pressors. No other significant events overnight. Family is at the bedside. On 05/13/2017 I'm seeing this patient for a follow-up. The patient remains intubated on a mechanical ventilator. Note that the patient was taken off sedation throughout the day yesterday. He was waking up and he was opening his eyes spontaneously. He was not following commands initially. Subsequently he became more responsive and he follows some simple commands and today's able to wiggle his toes and move his fingers upon demand. He is calm and comfortable he is not agitated. Earlier this morning while being positioned in bed the patient became a bit tachycardic and tachypneic and agitated. He had to be placed back on Diprivan for a brief period of time and currently is back to being off sedation. He is still on a mechanical ventilator. I managed to drop the PEEP down to 8 and this morning he is an assist-control mode at the rate of 26, tidal volume of 500 with a PEEP of 8 and FiO2 of 40%. Blood gases showed a pH of 7.55 with a pCO2 of 39 and pO2 of 80. The chest x-ray from today still showing some but the pulmonary vessel congestion/edema. Nevertheless, the patient was diuresed adequately with accommodation of Lasix and Zaroxolyn the patient has been in a negative fluid balance of at least 5-6 L over the past 24 hours. This has resulted in to some metabolic alkalosis and the pH is up to 7.5 and a serum bicarb is up to 34. No hematuria this point. He is tolerating his tube feeds. No fever or chills. The incision site over the right neck area dry clean and intact. Blood pressure is fluctuating at times it's quite high requiring hydralazine pushes for blood pressure control. Cardiac rhythm is still sinus. He is off antibiotics for now. On 05/14/2017, I'm seeing this patient for a follow-up. The patient is being given a sedation holiday. He stayed off sedation throughout the day yesterday and he had to be placed on sedation again this morning. He is only on 20 mics of the prevent. He was awake and he was following commands yesterday. This morning, he is still on a mechanical ventilator. His PEEP has been drop down to 5. The patient is assist-control mode with a tidal volume 500, rate of 26 and the FiO2 down to 40%. Chest x-ray findings are stable. The patient was diuresed aggressively with IV Lasix and Zaroxolyn. Her net fluid balance over the past 24 hours is -3.6 L in the prior to that was -6.3 L. The swelling in the upper and lower occiput is improved and the patient's volume status also improved. The patient has a mild degree of metabolic alkalosis with a pH of 7.52 with a pCO2 of 42 and pO2 of 65 on today's blood gases. The renal function is still impaired. BN is up 214. Creatinine is up to 3.2. Lasix dose was cut down to 40 mg twice a day. Nephrology is on the case. No other significant events overnight. The patient remains in a normal sinus rhythm. The patient is off anticoagulants. The urine output is still somewhat bloody. There are no clots. Objective - Vital Signs Vital signs: Vital Signs Temp 98.1 F 05/14/17 08:00 Pulse 65 05/14/17 10:00 Resp 20 05/14/17 10:00 BP 99/46 05/14/17 10:00 Pulse Ox 95 05/14/17 10:00 Intake & Output 05/13/17 05/14/17 05/14/17 18:59 06:59 18:59 Intake Total 1718.390 400.35 645.692 Output Total 3075 2680 345 Balance -1356.610 -2279.65 300.692 Weight 137.1 kg 133.1 kg Intake: IV 290 220 80 KVO 240 220 80 Piperacillin-Tazobactam 3 50 .375 gm In Dextrose/Water 1 50ml.bag @ 12.5 mls/hr IVPB Q12H JOS[facility] MIGUEL Rx#: [id number] Intake, IV Titration 163.390 0.35 95.692 Amount Insulin Regular 100 unit 101.000 0.35 34.400 In Sodium Chloride 0.9% 100 ml @ Per Protocol IV .Q0M JOSÉ MIGUEL Rx#:[id number] Propofol 1,000 mg In 62.39 0 61.292 Empty Bag 1 bag @ Titrate IV .Q0M JOSÉ MIGUEL Rx#: [id number] Oral 145 Tube Feeding 720 180 270 Other 400 200 Output: Urine 3075 2680 345 Other: Voiding Method Indwelling Catheter Indwelling Catheter ABP, PAP, CO, CI - Last Documented Arterial Blood Pressure 122/42 - Exam Patient is awake and following some simple commands. He can blink his eyes and wiggle his toes and move his fingers upon demand. The patient remains intubated and endotracheal tube and NG tube. The patient is laying comfortably in bed and he is morbidly obese. . No nystagmus pain no preferential gaze. Pupils are equal and reactive to light. There is no seizure activity. No agitation. HEENT examination is grossly unremarkable. Mucous membranes are moist. No oral lesions. A hematoma can be visualized all over the neck area, APPLYING mainly the right neck area and the incision site is clean. The hematoma itself is soft and non-enlarging at this point. Neck supple. Full range of motion. No adenopathy thyromegaly or neck vein distention. There is tremendous bruising and ecchymoses about the neck from the recent surgery. It's more right than left-sided. There hematoma is stable for now. Cardiovascular examination reveals regular rhythm rate. S1-S2 normal. No S3 or S4. No discernible murmur noted. Heart sounds are distant. Lungs reveal diffuse bilateral rhonchi. Breath sounds are diminished. Some bibasilar crackles. No wheezes. Abdomen soft bowel sounds are heard. No masses or tenderness. Extremities are intact. No cyanosis clubbing or edema. Skin is without rash or lesion. Neurologic the patient has no focal neurological deficit. The patient is moving all 4 extremities. No facial asymmetry. No nystagmus. - Labs CBC & Chem 7: 05/14/17 05:00 05/14/17 05:00 Labs: Abnormal Lab Results - Last 24 Hours (Table) 05/13/17 05/13/17 05/13/17 Range/Units 12:05 14:11 16:38 WBC (3.8-10.6) k/uL RBC (4.30-5.90) m/uL Hgb (13.0-17.5) gm/dL Hct (39.0-53.0) % MCV (80.0-100.0) fL Neutrophils # (1.3-7.7) k/uL Monocytes # (0-1.0) k/uL ABG pH (7.35-7.45) ABG pO2 (83-108) mmHg ABG HCO3 (21-25) mmol/L ABG Total CO2 (19-24) mmol/L ABG O2 Saturation (94-97) % Sodium (137-145) mmol/L Potassium (3.5-5.1) mmol/L Chloride (98-107) mmol/L Carbon Dioxide (22-30) mmol/L BUN (9-20) mg/dL Creatinine (0.66-1.25) mg/dL Glucose (74-99) mg/dL POC Glucose (mg/dL) 196 H 165 H 152 H (75-99) mg/dL Phosphorus (2.5-4.5) mg/dL Magnesium (1.6-2.3) mg/dL AST (17-59) U/L 05/13/17 05/13/17 05/13/17 Range/Units 18:15 20:00 22:03 WBC (3.8-10.6) k/uL RBC (4.30-5.90) m/uL Hgb (13.0-17.5) gm/dL Hct (39.0-53.0) % MCV (80.0-100.0) fL Neutrophils # (1.3-7.7) k/uL Monocytes # (0-1.0) k/uL ABG pH (7.35-7.45) ABG pO2 (83-108) mmHg ABG HCO3 (21-25) mmol/L ABG Total CO2 (19-24) mmol/L ABG O2 Saturation (94-97) % Sodium (137-145) mmol/L Potassium (3.5-5.1) mmol/L Chloride (98-107) mmol/L Carbon Dioxide (22-30) mmol/L BUN (9-20) mg/dL Creatinine (0.66-1.25) mg/dL Glucose (74-99) mg/dL POC Glucose (mg/dL) 165 H 156 H 167 H (75-99) mg/dL Phosphorus (2.5-4.5) mg/dL Magnesium (1.6-2.3) mg/dL AST (17-59) U/L 05/14/17 05/14/17 05/14/17 Range/Units 00:06 02:42 04:50 WBC (3.8-10.6) k/uL RBC (4.30-5.90) m/uL Hgb (13.0-17.5) gm/dL Hct (39.0-53.0) % MCV (80.0-100.0) fL Neutrophils # (1.3-7.7) k/uL Monocytes # (0-1.0) k/uL ABG pH 7.52 H (7.35-7.45) ABG pO2 65 L (83-108) mmHg ABG HCO3 34 H (21-25) mmol/L ABG Total CO2 35 H (19-24) mmol/L ABG O2 Saturation 92.7 L (94-97) % Sodium (137-145) mmol/L Potassium (3.5-5.1) mmol/L Chloride (98-107) mmol/L Carbon Dioxide (22-30) mmol/L BUN (9-20) mg/dL Creatinine (0.66-1.25) mg/dL Glucose (74-99) mg/dL POC Glucose (mg/dL) 164 H 174 H (75-99) mg/dL Phosphorus (2.5-4.5) mg/dL Magnesium (1.6-2.3) mg/dL AST (17-59) U/L 05/14/17 05/14/17 05/14/17 Range/Units 04:53 05:00 05:00 WBC 14.4 H (3.8-10.6) k/uL RBC 2.98 L (4.30-5.90) m/uL Hgb 9.6 L (13.0-17.5) gm/dL Hct 30.7 L (39.0-53.0) % MCV 103.1 H (80.0-100.0) fL Neutrophils # 11.3 H (1.3-7.7) k/uL Monocytes # 1.2 H (0-1.0) k/uL ABG pH (7.35-7.45) ABG pO2 (83-108) mmHg ABG HCO3 (21-25) mmol/L ABG Total CO2 (19-24) mmol/L ABG O2 Saturation (94-97) % Sodium 147 H (137-145) mmol/L Potassium 3.3 L (3.5-5.1) mmol/L Chloride 97 L (98-107) mmol/L Carbon Dioxide 35 H (22-30) mmol/L BUN 114 H* (9-20) mg/dL Creatinine 3.20 H (0.66-1.25) mg/dL Glucose 140 H (74-99) mg/dL POC Glucose (mg/dL) 146 H (75-99) mg/dL Phosphorus 6.5 H (2.5-4.5) mg/dL Magnesium 2.5 H (1.6-2.3) mg/dL AST 62 H (17-59) U/L 05/14/17 05/14/17 05/14/17 Range/Units 06:20 08:05 09:59 WBC (3.8-10.6) k/uL RBC (4.30-5.90) m/uL Hgb (13.0-17.5) gm/dL Hct (39.0-53.0) % MCV (80.0-100.0) fL Neutrophils # (1.3-7.7) k/uL Monocytes # (0-1.0) k/uL ABG pH (7.35-7.45) ABG pO2 (83-108) mmHg ABG HCO3 (21-25) mmol/L ABG Total CO2 (19-24) mmol/L ABG O2 Saturation (94-97) % Sodium (137-145) mmol/L Potassium (3.5-5.1) mmol/L Chloride (98-107) mmol/L Carbon Dioxide (22-30) mmol/L BUN (9-20) mg/dL Creatinine (0.66-1.25) mg/dL Glucose (74-99) mg/dL POC Glucose (mg/dL) 141 H 152 H 151 H (75-99) mg/dL Phosphorus (2.5-4.5) mg/dL Magnesium (1.6-2.3) mg/dL AST (17-59) U/L Microbiology - Last 24 Hours (Table) 05/12/17 21:20 Blood Culture - Preliminary Blood No Growth after 24 hours 05/13/17 00:01 Urine Culture - Preliminary Urine,Catheterized 05/09/17 09:12 Blood Culture - Preliminary Blood No Growth after 96 hours 05/12/17 21:20 Gram Stain - Preliminary Sputum Sputum Culture - Preliminary Assessment and Plan Plan: Assessment 1 right carotid endarterectomy and the patient is postop day #9 2 acute cardio pulmonary arrest. This is most like an acute pulmonary edema for by cardiac arrest and the patient had a downtime of at least 25 minutes. He received a total of 10mgrams epinephrine and bicarb currently intubated on a mechanical ventilator. 3 CHF with an ejection fraction of less than 20% 4 suspected acute non-STEMI with ST segment depression and some mild troponin leak that peaked at 2.8 with underlying history of coronary artery disease 5 acute kidney injury, patient is nonoliguric. Urine output is improved and the patient is a negative fluid balance on a combination of Lasix and Zaroxolyn. 6 acute respiratory failure secondary to above, chest x-ray from today shows improvement in the volume status with some residual interstitial edema. The patient is improved significantly and the PEEP has been drop down to 5 and the chest x-ray shows improvement in the volume status. 7 diabetes mellitus currently on insulin drip for blood sugar control 8 possible hypoxic/anoxic encephalopathy suspected. The patient is off sedation the patient is following some simple commands. He is sluggish in his responses is still very weak. 9 obstructive sleep apnea and on BiPAP on outpatient basis at a pressure of 21/ 17 10 hypertension, fluctuating blood pressure 11 hyperlipidemia 12 morbid obesity 13 gout 14 hematoma over the neck especially over the right anterior neck area with a clean incision, postsurgical To get further by the intake of anticoagulants 15 mild hematuria, improving Plan Keep the patient off sedation. Proceed with a sedation holiday. We'll check weaning parameters. We'll try the patient on a spontaneous breathing trial if the weaning parameters are adequate. I may consider it also extubating this patient to a BiPAP as long as he has a decent cough and a gag reflex and should be able to protect his airway. Meanwhile, we'll continue the rest of the supportive care. Continue diuretics. Monitor renal function. Replace potassium. Coreg was restarted yesterday for a maternal blood pressure control and the patient is tolerating Coreg 12.5 mg by mouth twice a day. Hydralazine as needed basis for acute hypertensive reactions. Potassium is being replaced. The patient is on no pressors. Insulin drip for blood sugar control. She'll feeds are still running. We'll continue to follow make further diminishes based on his progress. The plan is to give the patient is point is breathing trial and is and assess his readiness to wean. Critically care evaluation was done and 32 minutes. Time with Patient: Greater than 30
[2017-05-14 11:06] LABS: Glucose,Whole Blood 152 mg/dL (75-99)
--- NOTE | 2017-05-14 11:24 | P.PN ---
Subjective Progress Note Date: 05/14/17 Principal diagnosis: Hemodynamically severe right internal carotid artery stenosis. Previous medical history of hypertension, gout, hyperlipidemia, diabetes, insomnia, atrial fibrillation with ablation, coronary artery disease, obstructive sleep apnea with CPAP use. POD #8 elective right carotid endarterectomy with patch angioplasty. Postoperative hematoma present at surgical site, and expected outcome given CPR during resuscitation as well as long-standing history of anticoagulation. Status post cardiopulmonary arrest with resuscitation, suspect non-STEMI. Acute systolic heart failure with an ejection fraction less than 20%. Acute kidney injury likely secondary to cardiac arrest with 30 minute down time. Patient's currently laying in bed in no acute distress, remains on mechanical ventilation, currently off sedation and opening his eyes and following commands. Family present at bedside, updated with patient's condition, all questions answered. Objective - Vital Signs Vital signs: Vital Signs Temp 98.1 F 05/14/17 08:00 Pulse 65 05/14/17 10:00 Resp 20 05/14/17 10:00 BP 99/46 05/14/17 10:00 Pulse Ox 95 05/14/17 10:00 Intake & Output 05/13/17 05/14/17 05/14/17 18:59 06:59 18:59 Intake Total 1718.390 400.35 645.692 Output Total 3075 2680 345 Balance -1356.610 -2279.65 300.692 Weight 137.1 kg 133.1 kg Intake: IV 290 220 80 KVO 240 220 80 Piperacillin-Tazobactam 3 50 .375 gm In Dextrose/Water 1 50ml.bag @ 12.5 mls/hr IVPB Q12H JOSÉ MIGUEL Rx#: [id number] Intake, IV Titration 163.390 0.35 95.692 Amount Insulin Regular 100 unit 101.000 0.35 34.400 In Sodium Chloride 0.9% 100 ml @ Per Protocol IV .Q0M JOSÉ MIGUEL Rx#:[id number] Propofol 1,000 mg In 62.39 0 61.292 Empty Bag 1 bag @ Titrate IV .Q0M JOSÉ MIGUEL Rx#: [id number] Oral 145 Tube Feeding 720 180 270 Other 400 200 Output: Urine 3075 2680 345 Other: Voiding Method Indwelling Catheter Indwelling Catheter Indwelling Catheter ABP, PAP, CO, CI - Last Documented Arterial Blood Pressure 122/42 - Constitutional General appearance: Present: cooperative, no acute distress, obese - Respiratory Details: Lungs sounds diminished bilaterally. Respirations even, nonlabored on mechanical ventilation. Current settings assist control mode, FiO2 40%, tidal by 500, respiratory rate 20, PEEP 5. 7.5 ET tube present, 23 at the lip. - Cardiovascular Details: S1, S2 present. Regular rate and rhythm, sinus rhythm on telemetry. Palpable peripheral pulses bilaterally. No edema present. SCDs present. Left radial arterial line, right groin triple-lumen central line present. - Gastrointestinal Gastrointestinal Comment(s): Abdomen soft, nontender, nondistended. Active bowel sounds 4 quadrants. Tube feeding currently turned off as patient may wean from ventilator today. - Genitourinary Genitourinary Comment(s): Boothe present draining blood-tinged urine. Output 150-400 mL/h overnight. - Integumentary Integumentary Comment(s): Skin is warm and dry. Anterior neck incision well approximated, hematoma present, no increase in size, neck is very ecchymotic. - Neurologic Neurologic Comment(s): Off sedation patient does open his eyes and follows commands except he does not move his left leg. - Musculoskeletal Musculoskeletal: Present: generalized weakness - Allied health notes Allied health notes reviewed: nursing - Labs CBC & Chem 7: 05/14/17 05:00 05/14/17 05:00 Labs: Abnormal Lab Results - Last 24 Hours (Table) 05/13/17 05/13/17 05/13/17 Range/Units 12:05 14:11 16:38 WBC (3.8-10.6) k/uL RBC (4.30-5.90) m/uL Hgb (13.0-17.5) gm/dL Hct (39.0-53.0) % MCV (80.0-100.0) fL Neutrophils # (1.3-7.7) k/uL Monocytes # (0-1.0) k/uL ABG pH (7.35-7.45) ABG pO2 (83-108) mmHg ABG HCO3 (21-25) mmol/L ABG Total CO2 (19-24) mmol/L ABG O2 Saturation (94-97) % Sodium (137-145) mmol/L Potassium (3.5-5.1) mmol/L Chloride (98-107) mmol/L Carbon Dioxide (22-30) mmol/L BUN (9-20) mg/dL Creatinine (0.66-1.25) mg/dL Glucose (74-99) mg/dL POC Glucose (mg/dL) 196 H 165 H 152 H (75-99) mg/dL Phosphorus (2.5-4.5) mg/dL Magnesium (1.6-2.3) mg/dL AST (17-59) U/L 05/13/17 05/13/17 05/13/17 Range/Units 18:15 20:00 22:03 WBC (3.8-10.6) k/uL RBC (4.30-5.90) m/uL Hgb (13.0-17.5) gm/dL Hct (39.0-53.0) % MCV (80.0-100.0) fL Neutrophils # (1.3-7.7) k/uL Monocytes # (0-1.0) k/uL ABG pH (7.35-7.45) ABG pO2 (83-108) mmHg ABG HCO3 (21-25) mmol/L ABG Total CO2 (19-24) mmol/L ABG O2 Saturation (94-97) % Sodium (137-145) mmol/L Potassium (3.5-5.1) mmol/L Chloride (98-107) mmol/L Carbon Dioxide (22-30) mmol/L BUN (9-20) mg/dL Creatinine (0.66-1.25) mg/dL Glucose (74-99) mg/dL POC Glucose (mg/dL) 165 H 156 H 167 H (75-99) mg/dL Phosphorus (2.5-4.5) mg/dL Magnesium (1.6-2.3) mg/dL AST (17-59) U/L 05/14/17 05/14/17 05/14/17 Range/Units 00:06 02:42 04:50 WBC (3.8-10.6) k/uL RBC (4.30-5.90) m/uL Hgb (13.0-17.5) gm/dL Hct (39.0-53.0) % MCV (80.0-100.0) fL Neutrophils # (1.3-7.7) k/uL Monocytes # (0-1.0) k/uL ABG pH 7.52 H (7.35-7.45) ABG pO2 65 L (83-108) mmHg ABG HCO3 34 H (21-25) mmol/L ABG Total CO2 35 H (19-24) mmol/L ABG O2 Saturation 92.7 L (94-97) % Sodium (137-145) mmol/L Potassium (3.5-5.1) mmol/L Chloride (98-107) mmol/L Carbon Dioxide (22-30) mmol/L BUN (9-20) mg/dL Creatinine (0.66-1.25) mg/dL Glucose (74-99) mg/dL POC Glucose (mg/dL) 164 H 174 H (75-99) mg/dL Phosphorus (2.5-4.5) mg/dL Magnesium (1.6-2.3) mg/dL AST (17-59) U/L 05/14/17 05/14/17 05/14/17 Range/Units 04:53 05:00 05:00 WBC 14.4 H (3.8-10.6) k/uL RBC 2.98 L (4.30-5.90) m/uL Hgb 9.6 L (13.0-17.5) gm/dL Hct 30.7 L (39.0-53.0) % MCV 103.1 H (80.0-100.0) fL Neutrophils # 11.3 H (1.3-7.7) k/uL Monocytes # 1.2 H (0-1.0) k/uL ABG pH (7.35-7.45) ABG pO2 (83-108) mmHg ABG HCO3 (21-25) mmol/L ABG Total CO2 (19-24) mmol/L ABG O2 Saturation (94-97) % Sodium 147 H (137-145) mmol/L Potassium 3.3 L (3.5-5.1) mmol/L Chloride 97 L (98-107) mmol/L Carbon Dioxide 35 H (22-30) mmol/L BUN 114 H* (9-20) mg/dL Creatinine 3.20 H (0.66-1.25) mg/dL Glucose 140 H (74-99) mg/dL POC Glucose (mg/dL) 146 H (75-99) mg/dL Phosphorus 6.5 H (2.5-4.5) mg/dL Magnesium 2.5 H (1.6-2.3) mg/dL AST 62 H (17-59) U/L 05/14/17 05/14/17 05/14/17 Range/Units 06:20 08:05 09:59 WBC (3.8-10.6) k/uL RBC (4.30-5.90) m/uL Hgb (13.0-17.5) gm/dL Hct (39.0-53.0) % MCV (80.0-100.0) fL Neutrophils # (1.3-7.7) k/uL Monocytes # (0-1.0) k/uL ABG pH (7.35-7.45) ABG pO2 (83-108) mmHg ABG HCO3 (21-25) mmol/L ABG Total CO2 (19-24) mmol/L ABG O2 Saturation (94-97) % Sodium (137-145) mmol/L Potassium (3.5-5.1) mmol/L Chloride (98-107) mmol/L Carbon Dioxide (22-30) mmol/L BUN (9-20) mg/dL Creatinine (0.66-1.25) mg/dL Glucose (74-99) mg/dL POC Glucose (mg/dL) 141 H 152 H 151 H (75-99) mg/dL Phosphorus (2.5-4.5) mg/dL Magnesium (1.6-2.3) mg/dL AST (17-59) U/L 05/14/17 Range/Units 11:04 WBC (3.8-10.6) k/uL RBC (4.30-5.90) m/uL Hgb (13.0-17.5) gm/dL Hct (39.0-53.0) % MCV (80.0-100.0) fL Neutrophils # (1.3-7.7) k/uL Monocytes # (0-1.0) k/uL ABG pH (7.35-7.45) ABG pO2 (83-108) mmHg ABG HCO3 (21-25) mmol/L ABG Total CO2 (19-24) mmol/L ABG O2 Saturation (94-97) % Sodium (137-145) mmol/L Potassium (3.5-5.1) mmol/L Chloride (98-107) mmol/L Carbon Dioxide (22-30) mmol/L BUN (9-20) mg/dL Creatinine (0.66-1.25) mg/dL Glucose (74-99) mg/dL POC Glucose (mg/dL) 152 H (75-99) mg/dL Phosphorus (2.5-4.5) mg/dL Magnesium (1.6-2.3) mg/dL AST (17-59) U/L Microbiology - Last 24 Hours (Table) 05/12/17 21:20 Blood Culture - Preliminary Blood No Growth after 24 hours 05/13/17 00:01 Urine Culture - Preliminary Urine,Catheterized 05/09/17 09:12 Blood Culture - Preliminary Blood No Growth after 96 hours 05/12/17 21:20 Gram Stain - Preliminary Sputum Sputum Culture - Preliminary - Imaging and Cardiology Chest x-ray: report reviewed, image reviewed Assessment and Plan (1) Cardiopulmonary arrest with successful resuscitation Current Visit: Yes Status: Acute Code(s): I46.9 - CARDIAC ARREST, CAUSE UNSPECIFIED SNOMED Code(s): 949035658 (2) Diabetes mellitus type 2 in obese Current Visit: Yes Status: Chronic Code(s): E11.69 - TYPE 2 DIABETES MELLITUS WITH OTHER SPECIFIED COMPLICATION; E66.9 - OBESITY, UNSPECIFIED SNOMED Code(s): 17110679 (3) GERD (gastroesophageal reflux disease) Current Visit: Yes Status: Chronic Code(s): K21.9 - GASTRO-ESOPHAGEAL REFLUX DISEASE WITHOUT ESOPHAGITIS SNOMED Code(s): 939224308 (4) Gout Current Visit: Yes Status: Chronic Code(s): M10.9 - GOUT, UNSPECIFIED SNOMED Code(s): 62106647 (5) History of coronary artery disease Current Visit: Yes Status: Chronic Code(s): Z86.79 - PERSONAL HISTORY OF OTHER DISEASES OF THE CIRCULATORY SYSTEM SNOMED Code(s): 527472329 (6) Hyperlipidemia Current Visit: Yes Status: Chronic Code(s): E78.5 - HYPERLIPIDEMIA, UNSPECIFIED SNOMED Code(s): 24933410 (7) Hypertension Current Visit: Yes Status: Chronic Code(s): I10 - ESSENTIAL (PRIMARY) HYPERTENSION SNOMED Code(s): 56981639 (8) Morbid obesity Current Visit: Yes Status: Chronic Code(s): E66.01 - MORBID (SEVERE) OBESITY DUE TO EXCESS CALORIES SNOMED Code(s): 575945650 (9) Obstructive sleep apnea Current Visit: Yes Status: Chronic Code(s): G47.33 - OBSTRUCTIVE SLEEP APNEA (ADULT) (PEDIATRIC) SNOMED Code(s): 97744165 (10) Paroxysmal atrial fibrillation Current Visit: Yes Status: Chronic Code(s): I48.0 - PAROXYSMAL ATRIAL FIBRILLATION SNOMED Code(s): 961871647 (11) Stenosis of right carotid artery Current Visit: Yes Status: Chronic Code(s): I65.21 - OCCLUSION AND STENOSIS OF RIGHT CAROTID ARTERY SNOMED Code(s): 547412020633777 Plan: 1. Continue current medical management per primary care service. 2. Cardiology management for post myocardial infarction, cardiopulmonary arrest. 3. Ventilator management per pulmonology. 4. GI/DVT prophylaxis. 5. Will continue to monitor daily labs and x-rays. 6. Maintain stable blood pressure. 7. Patient will need physical and occupational therapy once extubated. 8. Patient's condition remains guarded. 9. Right carotid endarterectomy site remains stable. Time with Patient: Greater than 30
--- NOTE | 2017-05-14 11:56 | P.PN ---
Subjective Progress Note Date: 05/14/17 76-year-old male who underwent elective right carotid endarterectomy with patch angioplasty on 05/06/[address] Mckenzie was consulted for medical management. The patient has a history of bilateral carotid stenosis, atrial fibrillation, coronary disease, diabetes mellitus, gastroesophageal reflux disease, hyperlipidemia, hypertension, osteoarthritis, and sleep apnea. 05/07/2017 The patient was seen and examined in the intensive care unit on rounds Dr. Mckenzie. The patient is sitting up in the chair. Family is at the bedside. The patient remains on a nitro drip at 60 mcg/min. Systolic blood pressures ranging in the 140s. The patient is complaining of pain at the surgical site. Dressing is in place. Swelling is noted near surgical site. Patient denies shortness of breath or coughing. Denies chest pain or pressure. Denies nausea or vomiting. States he is tolerating PO intake well without nausea or vomiting. 05/08/2017 Patient remains in intensive care unit. He is postop day #2 right carotid endarterectomy. The patient is sitting up in the chair. the patient's nitro drip has been weaned off. He was started on Norvasc 10 mg daily yesterday along with hydralazine 50 mg by mouth 3 times a day. Patients blood sugars remain elevated in the 200s. Patient utilizes an insulin pump at home. Patient 's insulin pump is currently not with him as it was empty and patient's was going to bring his insulin pump back to the hospital after she refilled it. patient remains on 6 L nasal cannula with oxygen saturations greater than 92%. He denies shortness of breath. Denies chest pain or pressure. Tolerating by mouth intake without nausea or vomiting. WBC 13.2. Hemoglobin 10.6. BUN 38. Creatinine 1.40. 05/09/2017-Notes per Dr. Mckenzie 05/10/2017-Notes per Dr. Mckenzie 05/11/2017 Patient seen and examined at the bedside on rounds with Dr. Corona. Patient went into cardiac arrest on 05/08/2017 and was successfully resuscitated after approximately 20 minutes of CPR. Patient remains intubated in the intensive care unit on mechanical ventilation. Patient is currently on IV propofol secondary to patient biting on his ET tube and bucking the ventilator. Sedation holiday has not been performed per nursing secondary to hemodynamic instability. Patient remains on 50% FiO2. Patient has required vasopressor secondary to hypotension. Levophed is currently off this morning. Chest x-ray this morning reveals mild cardio megaly with persistent central bilateral perihilar edema and/or infiltrates. ARDS is not excluded. Patient remains on Lasix drip. Patient also remains on insulin drip. Creatinine this morning is 3.30. Nephrology is on consult. Patient underwent CT of the brain which was negative for an acute process. 05/12/2017 Patient seen and examined at the bedside on rounds with Dr. Corona. Patient remains intubated in the intensive care unit. Family at the bedside. Patient sedation has been held for approximately 40 minutes. Patient is not following commands but is moving all extremities. Patient's eyes are open but patient is not tracking currently. Tube feedings are infusing. Patient is tolerating well. Patient has not had a bowel movement per nursing and just received a rectal suppository. Patient remains on insulin drip. Currently at 8.5 units an hour. Lasix drip was discontinued this morning per nephrology. Creatinine 3.10 this morning. Urinary output remains adequate. Hematuria is improving. Blood pressure is currently elevated in the 170s which may be secondary to agitation as sedation has been on hold. Nursing reports blood pressure has been running in the 140s when patient is sedated. 05/13/2017 Patient seen and examined at the bedside on rounds with Dr. Corona. is at the bedside. Per nursing, patients propofol was off yesterday and patient was able to follow some simple commands. Patient became agitated this morning and sedation was resumed. It has since been turned off. Patient does remain lethargic. He is able to open his eyes to commands and slightly wiggle his toes upon command when asked repeatedly, but then drifts back off to sleep. Patient remains on an insulin dip at 11.5 units an hour. Blood sugars are 161-196. Boothe remains intact with blood tinged urine. Tube feeding is infusing at 45 cc/ hr which is goal. Patient tolerated well. Bowel movement yesterday. Blood pressure remains elevated at times. Hydralazine PRN was ordered yesterday. Coreg has been ordered today per pulmonary. 05/14/2017 Patient seen and examined at the bedside on rounds with Dr. Corona. Patient remains on mechanical ventilation. FiO2 has been decreased to 40% per pulmonary. Patient remains off sedation and is able to follow simple commands. Tube feeding is infusing at 45 mL an hour which is goal. Patient is tolerating well. Indwelling urinary catheter remains intact with blood-tinged urine. Blood sugars are ranging between 140 and 174. Patient remains on an insulin drip. Objective - Vital Signs Vital signs: Vital Signs Temp 98.1 F 05/14/17 08:00 Pulse 67 05/14/17 08:05 Resp 20 05/14/17 08:00 BP 92/49 05/14/17 08:00 Pulse Ox 95 05/14/17 08:00 Intake & Output 05/13/17 05/14/17 05/14/17 18:59 06:59 18:59 Intake Total 1718.390 400.35 373.358 Output Total 3075 2680 190 Balance -1356.610 -2279.65 183.358 Weight 137.1 kg 133.1 kg Intake: IV 290 220 40 KVO 240 220 40 Piperacillin-Tazobactam 3 50 .375 gm In Dextrose/Water 1 50ml.bag @ 12.5 mls/hr IVPB Q12H JOS[facility] MIGUEL Rx#: [id number] Intake, IV Titration 163.390 0.35 43.358 Amount Insulin Regular 100 unit 101.000 0.35 17.733 In Sodium Chloride 0.9% 100 ml @ Per Protocol IV .Q0M JOSÉ MIGUEL Rx#:[id number] Propofol 1,000 mg In 62.39 0 25.625 Empty Bag 1 bag @ Titrate IV .Q0M JOSÉ MIGUEL Rx#: [id number] Oral 145 Tube Feeding 720 180 90 Other 400 200 Output: Urine 3075 2680 190 Other: Voiding Method Indwelling Catheter Indwelling Catheter ABP, PAP, CO, CI - Last Documented Arterial Blood Pressure 146/50 - Exam GENERAL: This is a 76-year-old male who remains on mechanical ventilation in the intensive care unit. HEENT: ET tube noted. Head is atraumatic, normocephalic. Pupils are equal, round, and reactive to light. Sclerae anicteric. Conjunctivae are clear. Mucus membranes of the mouth are moist. Neck is supple. Extensive ecchymosis noted throughout neck. RESPIRATORY: ET tube noted. Diminished with rhonchi throughout. Patient maintaining oxygen saturation greater than 92% on mechanical ventilation with 40 % FiO2. No chest wall tenderness is noted on palpation or with deep breathing. CARDIOVASCULAR: Regular rate and rhythm. S1 and S2 noted. No systolic or diastolic murmur auscultated. No JVD noted. No S3 or S4 noted. GASTROINTESTINAL: No distention noted. Abdomen soft and round. Normal active bowel sounds auscultated x 4 quadrants. No pain or tenderness noted upon palpation. INTEGUMENTARY: Dressing noted to right neck. No drainage noted. Clean dry and intact. Ecchymosis noted around surgical area. No cyanosis. No jaundice. EXTREMITIES: 2+ peripheral pulses. No evidence of peripheral edema. No calf tenderness noted. NEUROLOGIC/PSYCHIATRIC: Unable to assess thoroughly secondary to mechanical ventilation. Patient does open his eyes and moves extremities. Able to follow some simple commands. - Labs CBC & Chem 7: 05/14/17 05:00 05/14/17 05:00 Labs: Abnormal Lab Results - Last 24 Hours (Table) 05/13/17 05/13/17 05/13/17 Range/Units 09:50 12:05 14:11 WBC (3.8-10.6) k/uL RBC (4.30-5.90) m/uL Hgb (13.0-17.5) gm/dL Hct (39.0-53.0) % MCV (80.0-100.0) fL Neutrophils # (1.3-7.7) k/uL Monocytes # (0-1.0) k/uL ABG pH (7.35-7.45) ABG pO2 (83-108) mmHg ABG HCO3 (21-25) mmol/L ABG Total CO2 (19-24) mmol/L ABG O2 Saturation (94-97) % Sodium (137-145) mmol/L Potassium (3.5-5.1) mmol/L Chloride (98-107) mmol/L Carbon Dioxide (22-30) mmol/L BUN (9-20) mg/dL Creatinine (0.66-1.25) mg/dL Glucose (74-99) mg/dL POC Glucose (mg/dL) 178 H 196 H 165 H (75-99) mg/dL Phosphorus (2.5-4.5) mg/dL Magnesium (1.6-2.3) mg/dL AST (17-59) U/L 05/13/17 05/13/17 05/13/17 Range/Units 16:38 18:15 20:00 WBC (3.8-10.6) k/uL RBC (4.30-5.90) m/uL Hgb (13.0-17.5) gm/dL Hct (39.0-53.0) % MCV (80.0-100.0) fL Neutrophils # (1.3-7.7) k/uL Monocytes # (0-1.0) k/uL ABG pH (7.35-7.45) ABG pO2 (83-108) mmHg ABG HCO3 (21-25) mmol/L ABG Total CO2 (19-24) mmol/L ABG O2 Saturation (94-97) % Sodium (137-145) mmol/L Potassium (3.5-5.1) mmol/L Chloride (98-107) mmol/L Carbon Dioxide (22-30) mmol/L BUN (9-20) mg/dL Creatinine (0.66-1.25) mg/dL Glucose (74-99) mg/dL POC Glucose (mg/dL) 152 H 165 H 156 H (75-99) mg/dL Phosphorus (2.5-4.5) mg/dL Magnesium (1.6-2.3) mg/dL AST (17-59) U/L 05/13/17 05/14/17 05/14/17 Range/Units 22:03 00:06 02:42 WBC (3.8-10.6) k/uL RBC (4.30-5.90) m/uL Hgb (13.0-17.5) gm/dL Hct (39.0-53.0) % MCV (80.0-100.0) fL Neutrophils # (1.3-7.7) k/uL Monocytes # (0-1.0) k/uL ABG pH (7.35-7.45) ABG pO2 (83-108) mmHg ABG HCO3 (21-25) mmol/L ABG Total CO2 (19-24) mmol/L ABG O2 Saturation (94-97) % Sodium (137-145) mmol/L Potassium (3.5-5.1) mmol/L Chloride (98-107) mmol/L Carbon Dioxide (22-30) mmol/L BUN (9-20) mg/dL Creatinine (0.66-1.25) mg/dL Glucose (74-99) mg/dL POC Glucose (mg/dL) 167 H 164 H 174 H (75-99) mg/dL Phosphorus (2.5-4.5) mg/dL Magnesium (1.6-2.3) mg/dL AST (17-59) U/L 05/14/17 05/14/17 05/14/17 Range/Units 04:50 04:53 05:00 WBC 14.4 H (3.8-10.6) k/uL RBC 2.98 L (4.30-5.90) m/uL Hgb 9.6 L (13.0-17.5) gm/dL Hct 30.7 L (39.0-53.0) % MCV 103.1 H (80.0-100.0) fL Neutrophils # 11.3 H (1.3-7.7) k/uL Monocytes # 1.2 H (0-1.0) k/uL ABG pH 7.52 H (7.35-7.45) ABG pO2 65 L (83-108) mmHg ABG HCO3 34 H (21-25) mmol/L ABG Total CO2 35 H (19-24) mmol/L ABG O2 Saturation 92.7 L (94-97) % Sodium (137-145) mmol/L Potassium (3.5-5.1) mmol/L Chloride (98-107) mmol/L Carbon Dioxide (22-30) mmol/L BUN (9-20) mg/dL Creatinine (0.66-1.25) mg/dL Glucose (74-99) mg/dL POC Glucose (mg/dL) 146 H (75-99) mg/dL Phosphorus (2.5-4.5) mg/dL Magnesium (1.6-2.3) mg/dL AST (17-59) U/L 05/14/17 05/14/17 05/14/17 Range/Units 05:00 06:20 08:05 WBC (3.8-10.6) k/uL RBC (4.30-5.90) m/uL Hgb (13.0-17.5) gm/dL Hct (39.0-53.0) % MCV (80.0-100.0) fL Neutrophils # (1.3-7.7) k/uL Monocytes # (0-1.0) k/uL ABG pH (7.35-7.45) ABG pO2 (83-108) mmHg ABG HCO3 (21-25) mmol/L ABG Total CO2 (19-24) mmol/L ABG O2 Saturation (94-97) % Sodium 147 H (137-145) mmol/L Potassium 3.3 L (3.5-5.1) mmol/L Chloride 97 L (98-107) mmol/L Carbon Dioxide 35 H (22-30) mmol/L BUN 114 H* (9-20) mg/dL Creatinine 3.20 H (0.66-1.25) mg/dL Glucose 140 H (74-99) mg/dL POC Glucose (mg/dL) 141 H 152 H (75-99) mg/dL Phosphorus 6.5 H (2.5-4.5) mg/dL Magnesium 2.5 H (1.6-2.3) mg/dL AST 62 H (17-59) U/L Microbiology - Last 24 Hours (Table) 05/12/17 21:20 Blood Culture - Preliminary Blood No Growth after 24 hours 05/13/17 00:01 Urine Culture - Preliminary Urine,Catheterized 05/09/17 09:12 Blood Culture - Preliminary Blood No Growth after 96 hours 05/12/17 21:20 Gram Stain - Preliminary Sputum Sputum Culture - Preliminary Assessment and Plan Plan: ASSESSMENT: Bilateral carotid stenosis, s/p right carotid endarterectomy, POD #9 Acute cardiopulmonary arrest requiring mechanical ventilation, likely secondary to acute pulmonary edema with a downtime of at least 20 minutes Acute exacerbation of systolic congestive heart failure, ejection fraction 20% Suspected acute non-ST elevated [place] Acute kidney injury, suspect secondary to prolonged cardiopulmonary arrest Hypoxic/anoxic encephalopathy secondary to prolonged cardiopulmonary arrest Hypertension Diabetes mellitus, type II, utilizing insulin pump at home Coronary artery disease Atrial fibrillation, on detention anticoagulation with Pradaxa Hematuria, thought to be secondary to Pradaxa which has been placed on hold, improving Hyperlipidemia Osteoarthritis with previous multiple joint replacements Morbid obesity: BMI 42.8 PLAN: Continue ventilator management per Dr. Kimball Continue insulin drip per protocol Nephrology on consult. Lasix decreased to 40 mg IV every 12 hours Monitor blood pressure. Continue hydralazine PRN for hypertension. Coreg added per pulmonary Replace potassium per protocol Neurology on consult. Appreciate recommendations and input. Monitor hematuria. Continue to hold Pradaxa Continue tube feedings Home meds as appropriate Monitor labs GI prophylaxis: Protonix 40mg IV BID DVT prophylaxis: CONCEPCI[place]N hose and Venodyne's to bilateral lower extremities Monitor vital signs and address as appropriate Further recommendations pending patient's course Nurse practitioner note has been reviewed by physician. Signing provider agrees with the documented findings, assessment, and plan of care.
[2017-05-14 12:23] LABS: Glucose,Whole Blood 148 mg/dL (75-99)
[2017-05-14 12:50] LABS: ABG Base Excess 11.1 mmol/L; ABG HCO3 34 mmol/L (21-25); ABG Oxygen Saturation 94.7 % (94-97); ABG PCO2 43 mmHg (35-45); ABG PH 7.51 (7.35-7.45); ABG PO2 78 mmHg (83-108); ABG TCO2 36 mmol/L (19-24)
[2017-05-14 14:08] LABS: Glucose,Whole Blood 138 mg/dL (75-99)
[2017-05-14 15:30] LABS: Glucose,Whole Blood 221 mg/dL (75-99)
--- NOTE | 2017-05-14 15:37 | PN ---
PROGRESS NOTE The patient is seen for followup for acute kidney injury secondary to hypotension with hypoperfusion and cardiac arrest. Renal function has been slowly improving. Serum creatinine is a bit higher today secondary to diuresis. The patient remains on the vent. He was awake and following commands when sedation was held. PHYSICAL EXAMINATION: On examination today, blood pressure is 136/52, heart rate 76 per minute. He is afebrile. Examination of the heart S1, S2. Examination lungs decreased breath sounds at the bases. ABDOMEN: Soft. Examination lower extremity shows no evidence of edema. LABS: Show sodium 147, potassium 3.3, chloride 97, CO2 is 35, BUN was 114, serum creatinine 3.2, hemoglobin 8.6 g/dL. ASSESSMENT: 1. Acute kidney injury, acute tubular necrosis which had improved. Serum creatinine is high today secondary to diuresis. I will decrease the Lasix significantly. 2. Hypokalemia secondary to diuresis. Will replace. 3. Mild hypernatremia maintained on free water through the PEG tube. 4. Vent dependent respiratory failure secondary to pulmonary edema. 5. Status post cardiac arrest. 6. Status post right carotid artery endarterectomy. 7. Severe cardiomyopathy, ejection fraction of about 20%. 8. CKD stage 3 sec. to Nephrosclerosis, b/l cr 1.2 mg/dL PLAN: 1. Hold further doses of Lasix. 2. Repeat labs in a.m. 3. Replace potassium. 4. Start phosphate binders if serum phosphorus remains elevated. MMODL / IJN: [id number] / MTDD
[2017-05-14 17:01] LABS: Glucose,Whole Blood 220 mg/dL (75-99)
[2017-05-14 18:57] LABS: Glucose,Whole Blood 163 mg/dL (75-99)
[2017-05-14] MEDS ORDERED: POTASSIUM CHLORIDE 20 MEQ in SODIUM CHLORIDE 0.9% 100 ML IVPB ONE (19:00)
[2017-05-14 20:13] LABS: Glucose,Whole Blood 154 mg/dL (75-99)
--- NOTE | 2017-05-14 21:24 | P.PN ---
Subjective Progress Note Date: 05/14/17 This patient is a 76-year-old right-handed white male who is seen today in the intensive care unit. Patient was admitted for a right carotid endarterectomy in 2 days later suffered a cardiac arrest. His downtime was estimated to be 20- 30 minutes. He has been showing slow improvement over the last few days in the ICU. Patient was extubated today and has been placed on BiPAP. According to the family who was at bedside he has been following commands and does recognize family members. He underwent a CAT scan of the brain which failed to reveal any evidence of acute stroke. His EEG done initially following his cardiac arrest showed diffuse slowing. He is moving all 4 extremities. He did show evidence of acute renal failure with a creatinine of 3.2 today. Nephrology is following him closely. Neurologically he is moving all extremities. He is more awake and alert and does seem to respond to some questioning. He is showing increased improvement in his overall rest 3 status. He has evidence of a anoxic encephalopathy following his cardiac arrest. We may consider repeat EEG in a few days depending on his hospital course. We will continue close neurological follow-up of this patient in the intensive care unit. Objective - Vital Signs Vital signs: Vital Signs Temp 98.7 F 05/14/17 16:00 Pulse 70 05/14/17 19:37 Resp 20 05/14/17 19:00 BP 119/54 05/14/17 19:00 Pulse Ox 99 05/14/17 19:00 Intake & Output 05/14/17 05/14/17 05/15/17 06:59 18:59 06:59 Intake Total 400.35 1240.159 36.533 Output Total 2680 1600 100 Balance -2279.65 -359.841 -63.467 Weight 133.1 kg Intake: IV 220 240 20 KVO 220 240 20 Intake, IV Titration 0.35 195.159 16.533 Amount Insulin Regular 100 unit 0.35 118.867 16.533 In Sodium Chloride 0.9% 100 ml @ Per Protocol IV .Q0M JOSÉ MIGUEL Rx#:[id number] Propofol 1,000 mg In 0 76.292 Empty Bag 1 bag @ Titrate IV .Q0M JOSÉ MIGUEL Rx#: [id number] Tube Feeding 180 605 Other 200 Output: Urine 2680 1600 100 Other: Voiding Method Indwelling Catheter Indwelling Catheter ABP, PAP, CO, CI - Last Documented Arterial Blood Pressure 143/52 - Exam Physical examination: PHYSICAL EXAMINATION: Patient is resting comfortably in bed. He was extubated today and is on BiPAP. VITAL SIGNS: Blood pressure is [119/54]. Heart rate is [67]. Respiration is [20] . Temperature is [98.7]. HEENT: Head is atraumatic, neck is supple, there were no carotid bruits. CHEST: Lungs are clear to auscultation and percussion. CARDIAC: S1, S2 normal rate and rhythm. There is no murmur. ABDOMEN: Soft and nontender. Bowel sounds are present. EXTREMITIES: There is no pedal edema. Peripheral pulses are present. Neurological examination: Patient was extubated today. He is on BiPAP. He is more awake and alert today. He is following simple commands and does nod his head. He remains off of sedation at this time. He does do hand squeeze occasionally to family. Cranial nerves II through XII are grossly intact. Deep tendon reflexes are 1+ and symmetric. Plantar responses flexor bilaterally. Patient does seem to be more awake and alert today as compared to yesterday. - Labs CBC & Chem 7: 05/14/17 05:00 05/14/17 15:35 Labs: Abnormal Lab Results - Last 24 Hours (Table) 05/13/17 05/14/17 05/14/17 Range/Units 22:03 00:06 02:42 WBC (3.8-10.6) k/uL RBC (4.30-5.90) m/uL Hgb (13.0-17.5) gm/dL Hct (39.0-53.0) % MCV (80.0-100.0) fL Neutrophils # (1.3-7.7) k/uL Monocytes # (0-1.0) k/uL ABG pH (7.35-7.45) ABG pO2 (83-108) mmHg ABG HCO3 (21-25) mmol/L ABG Total CO2 (19-24) mmol/L ABG O2 Saturation (94-97) % Sodium (137-145) mmol/L Potassium (3.5-5.1) mmol/L Chloride (98-107) mmol/L Carbon Dioxide (22-30) mmol/L BUN (9-20) mg/dL Creatinine (0.66-1.25) mg/dL Glucose (74-99) mg/dL POC Glucose (mg/dL) 167 H 164 H 174 H (75-99) mg/dL Phosphorus (2.5-4.5) mg/dL Magnesium (1.6-2.3) mg/dL AST (17-59) U/L 05/14/17 05/14/17 05/14/17 Range/Units 04:50 04:53 05:00 WBC 14.4 H (3.8-10.6) k/uL RBC 2.98 L (4.30-5.90) m/uL Hgb 9.6 L (13.0-17.5) gm/dL Hct 30.7 L (39.0-53.0) % MCV 103.1 H (80.0-100.0) fL Neutrophils # 11.3 H (1.3-7.7) k/uL Monocytes # 1.2 H (0-1.0) k/uL ABG pH 7.52 H (7.35-7.45) ABG pO2 65 L (83-108) mmHg ABG HCO3 34 H (21-25) mmol/L ABG Total CO2 35 H (19-24) mmol/L ABG O2 Saturation 92.7 L (94-97) % Sodium (137-145) mmol/L Potassium (3.5-5.1) mmol/L Chloride (98-107) mmol/L Carbon Dioxide (22-30) mmol/L BUN (9-20) mg/dL Creatinine (0.66-1.25) mg/dL Glucose (74-99) mg/dL POC Glucose (mg/dL) 146 H (75-99) mg/dL Phosphorus (2.5-4.5) mg/dL Magnesium (1.6-2.3) mg/dL AST (17-59) U/L 05/14/17 05/14/17 05/14/17 Range/Units 05:00 06:20 08:05 WBC (3.8-10.6) k/uL RBC (4.30-5.90) m/uL Hgb (13.0-17.5) gm/dL Hct (39.0-53.0) % MCV (80.0-100.0) fL Neutrophils # (1.3-7.7) k/uL Monocytes # (0-1.0) k/uL ABG pH (7.35-7.45) ABG pO2 (83-108) mmHg ABG HCO3 (21-25) mmol/L ABG Total CO2 (19-24) mmol/L ABG O2 Saturation (94-97) % Sodium 147 H (137-145) mmol/L Potassium 3.3 L (3.5-5.1) mmol/L Chloride 97 L (98-107) mmol/L Carbon Dioxide 35 H (22-30) mmol/L BUN 114 H* (9-20) mg/dL Creatinine 3.20 H (0.66-1.25) mg/dL Glucose 140 H (74-99) mg/dL POC Glucose (mg/dL) 141 H 152 H (75-99) mg/dL Phosphorus 6.5 H (2.5-4.5) mg/dL Magnesium 2.5 H (1.6-2.3) mg/dL AST 62 H (17-59) U/L 05/14/17 05/14/17 05/14/17 Range/Units 09:59 11:04 12:20 WBC (3.8-10.6) k/uL RBC (4.30-5.90) m/uL Hgb (13.0-17.5) gm/dL Hct (39.0-53.0) % MCV (80.0-100.0) fL Neutrophils # (1.3-7.7) k/uL Monocytes # (0-1.0) k/uL ABG pH (7.35-7.45) ABG pO2 (83-108) mmHg ABG HCO3 (21-25) mmol/L ABG Total CO2 (19-24) mmol/L ABG O2 Saturation (94-97) % Sodium (137-145) mmol/L Potassium (3.5-5.1) mmol/L Chloride (98-107) mmol/L Carbon Dioxide (22-30) mmol/L BUN (9-20) mg/dL Creatinine (0.66-1.25) mg/dL Glucose (74-99) mg/dL POC Glucose (mg/dL) 151 H 152 H 148 H (75-99) mg/dL Phosphorus (2.5-4.5) mg/dL Magnesium (1.6-2.3) mg/dL AST (17-59) U/L 05/14/17 05/14/17 05/14/17 Range/Units 12:45 14:05 15:27 WBC (3.8-10.6) k/uL RBC (4.30-5.90) m/uL Hgb (13.0-17.5) gm/dL Hct (39.0-53.0) % MCV (80.0-100.0) fL Neutrophils # (1.3-7.7) k/uL Monocytes # (0-1.0) k/uL ABG pH 7.51 H (7.35-7.45) ABG pO2 78 L (83-108) mmHg ABG HCO3 34 H (21-25) mmol/L ABG Total CO2 36 H (19-24) mmol/L ABG O2 Saturation (94-97) % Sodium (137-145) mmol/L Potassium (3.5-5.1) mmol/L Chloride (98-107) mmol/L Carbon Dioxide (22-30) mmol/L BUN (9-20) mg/dL Creatinine (0.66-1.25) mg/dL Glucose (74-99) mg/dL POC Glucose (mg/dL) 138 H 221 H (75-99) mg/dL Phosphorus (2.5-4.5) mg/dL Magnesium (1.6-2.3) mg/dL AST (17-59) U/L 05/14/17 05/14/17 05/14/17 Range/Units 16:59 18:55 20:11 WBC (3.8-10.6) k/uL RBC (4.30-5.90) m/uL Hgb (13.0-17.5) gm/dL Hct (39.0-53.0) % MCV (80.0-100.0) fL Neutrophils # (1.3-7.7) k/uL Monocytes # (0-1.0) k/uL ABG pH (7.35-7.45) ABG pO2 (83-108) mmHg ABG HCO3 (21-25) mmol/L ABG Total CO2 (19-24) mmol/L ABG O2 Saturation (94-97) % Sodium (137-145) mmol/L Potassium (3.5-5.1) mmol/L Chloride (98-107) mmol/L Carbon Dioxide (22-30) mmol/L BUN (9-20) mg/dL Creatinine (0.66-1.25) mg/dL Glucose (74-99) mg/dL POC Glucose (mg/dL) 220 H 163 H 154 H (75-99) mg/dL Phosphorus (2.5-4.5) mg/dL Magnesium (1.6-2.3) mg/dL AST (17-59) U/L Microbiology - Last 24 Hours (Table) 05/12/17 21:20 Gram Stain - Preliminary Sputum Sputum Culture - Preliminary Kelly albicans 05/13/17 00:01 Urine Culture - Final Urine,Catheterized 05/09/17 09:12 Blood Culture - Preliminary Blood No Growth after 120 hours 05/12/17 21:20 Blood Culture - Preliminary Blood No Growth after 24 hours Assessment and Plan (1) Cardiopulmonary arrest with successful resuscitation Current Visit: Yes Status: Acute Code(s): I46.9 - CARDIAC ARREST, CAUSE UNSPECIFIED SNOMED Code(s): 182791128 (2) Anoxic encephalopathy Current Visit: Yes Status: Acute Code(s): G93.1 - ANOXIC BRAIN DAMAGE, NOT ELSEWHERE CLASSIFIED SNOMED Code(s): 606504686 (3) History of right-sided carotid endarterectomy Current Visit: Yes Status: Acute Code(s): Z98.890 - OTHER SPECIFIED POSTPROCEDURAL STATES SNOMED Code(s): 183731382 (4) Diabetes mellitus type 2 in obese Current Visit: Yes Status: Chronic Code(s): E11.69 - TYPE 2 DIABETES MELLITUS WITH OTHER SPECIFIED COMPLICATION; E66.9 - OBESITY, UNSPECIFIED SNOMED Code(s): 42025898 (5) Paroxysmal atrial fibrillation Current Visit: Yes Status: Chronic Code(s): I48.0 - PAROXYSMAL ATRIAL FIBRILLATION SNOMED Code(s): 601508079 Plan: This patient is a 76-year-old male who underwent a right carotid endarterectomy and subsequently 2 days following surgery developed a full cardiac arrest. He was intubated and has been closely followed in the intensive care unit. Patient was able to be extubated today and seems to be making good progress. He had an estimated downtime of 20-30 minutes. His CAT scan of the brain failed to reveal any acute changes. His initial EEG was diffusely slow consistent with a anoxic encephalopathy type picture. He is showing improvement today in terms of his mental status. He is moving all extremities. Case was discussed at length today with family members were at bedside. They were updated on his current neurological findings in detail. We will continue to monitor his progress closely in intensive care unit. He has suffered an acute cardiac arrest with anoxic encephalopathy with slow improvement. We will continue to follow his progress closely in the intensive care unit. His overall prognosis at this time remains guarded.
--- NOTE | 2017-05-14 22:33 | CT ---
EXAMINATION TYPE: CT brain wo con DATE OF EXAM: 05/14/2017 COMPARISON: 05/10/2017 HISTORY: Left sided weakness. CT DLP: 818.6 mGycm Automated exposure control for dose reduction was used. FINDINGS: There is cerebral cortical atrophy. There is no mass effect nor midline shift. There is a 3 x 1.5 cm area of hypodensity in the right posterior frontal lobe cortex. There is no midline shift. There is n o sign of intracranial hemorrhage. There is subtle 1.5 cm area of hypodensity in the mid right internal grinder tender al capsule. IMPRESSION: THERE IS OLD SMALL RIGHT POSTERIOR FRONTAL LOBE CORTICAL INFARCT. THERE IS EVIDENCE OF SUBACUTE LACUN AR INFARCT IN THE RIGHT INTERNAL CAPSULE THAT APPEARS NEW COMPARED TO RECENT EXAM.
[2017-05-14 22:47] LABS: Glucose,Whole Blood 97 mg/dL (75-99)
[2017-05-14 23:33] LABS: Glucose,Whole Blood 91 mg/dL (75-99)
[2017-05-15 01:01] LABS: Glucose,Whole Blood 161 mg/dL (75-99)
[2017-05-15] MEDS: IPRATROPIUM-ALBUTEROL 3 ML NEB INHALATION SCH ×6 (01:32→19:23)
[2017-05-15 02:02] LABS: Glucose,Whole Blood 173 mg/dL (75-99)
[2017-05-15 04:28] LABS: Glucose,Whole Blood 123 mg/dL (75-99)
[2017-05-15 05:20] LABS: Basophils % (A) 0 %; Eosinophils # (A) 0.3 k/uL (0-0.7); Eosinophils % (A) 2 %; HCT 30.8 % (39.0-53.0); HGB 9.9 gm/dL (13.0-17.5); Hypochromasia Slight; Lymphocytes # (A) 1.4 k/uL (1.0-4.8); Lymphocytes % (A) 9 %; MCH 33.4 pg (25.0-35.0); MCHC 32.1 g/dL (31.0-37.0); MCV 104.1 fL (80.0-100.0); Macrocytosis Moderate; Mean Platelet Volume 9.1; Monocytes # (A) 1.3 k/uL (0-1.0); Monocytes % (A) 8 %; Neutrophils # (A) 11.6 k/uL (1.3-7.7); Neutrophils % (A) 77 %; Platelet Count 335 k/uL (150-450); RBC 2.96 m/uL (4.30-5.90); RDW 14.7 % (11.5-15.5); WBC 15.2 k/uL (3.8-10.6)
[2017-05-15] MEDS: PIPERACILLIN-TAZOBACTAM 3.375 GM in DEXTROSE/WATER 1 50ML.BAG IVPB SCH ×2 (05:26→17:14)
[2017-05-15 05:27] LABS: Glucose,Whole Blood 131 mg/dL (75-99)
[2017-05-15 05:37] LABS: Albumin 3.7 g/dL (3.5-5.0); Calcium 9.3 mg/dL (8.4-10.2); Potassium 3.5 mmol/L (3.5-5.1); Total Bilirubin 0.9 mg/dL (0.2-1.3); Total Protein 7.1 g/dL (6.3-8.2)
[2017-05-15] MEDS ORDERED: DEXTROSE 5% IN WATER 500 ML IV ONE (06:13)
[2017-05-15 06:25] LABS: Glucose,Whole Blood 155 mg/dL (75-99)
[2017-05-15] MEDS: POTASSIUM CHLORIDE 20 MEQ in SODIUM CHLORIDE 0.9% 100 ML IV SCH ×2 (06:54→09:02)
[2017-05-15] MEDS: MORPHINE SULFATE 4 MG/ML SYRINGE IVP PRN ×2 (06:59→22:27)
--- NOTE | 2017-05-15 07:11 | XR ---
EXAMINATION TYPE: XR chest 1V confirm line [facility] DATE OF EXAM: 05/15/2017 COMPARISON: 05/14/2017 HISTORY: Status post cardiopulmonary arrest. TECHNIQUE: Single frontal view of the chest is obtained. FINDINGS: There is been interval removal of the endotracheal and enteric tubes. There is a persistent trace left pleural effusion blunting the left costophrenic angle. 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 No new focal opacities seen. Heart is upper limits of normal a nd superior mediastinal widening is stable. Osseous structures are intact with mild degenerative garcía ges at the right acromioclavicular joint. IMPRESSION: 1. Improvement in the previously seen pulmonary vascular congestion, now centralized and mild. 2. Interval extubation and removal of the enteric tube. 3. Persistent trace left pleural effusion.
[2017-05-15] MEDS: CARVEDILOL 12.5 MG TAB PO SCH ×2 (08:42→17:13)
[2017-05-15 08:43] LABS: Glucose,Whole Blood 151 mg/dL (75-99)
[2017-05-15] MEDS: FUROSEMIDE 10 MG/ML 4 ML VIAL IV SCH (08:49)
[2017-05-15] MEDS: PANTOPRAZOLE 40 MG/10 ML VIAL IVP SCH ×2 (08:50→20:35)
--- NOTE | 2017-05-15 10:13 | P.PN ---
Progress Note - Text Progress Note Date: 05/15/17 Surgical postop note: Patient is status post right carotid endarterectomy, status post cardiac arrest, currently extubated and on BiPAP. Tolerating it well. Patient is alert and communicating well. Appears to be's some mild left-sided weakness. CAT scan suggests small right hemispheric infarct. In general, the patient appears to be slowly recovering from his recent events. Continue to work with respiratory therapy, physical therapy, speech therapy for swallow study, and in general cautious progression of activities. Continue with aggressive medical therapy.
[2017-05-15] MEDS: SENNOSIDES-DOCUSATE SODIUM 1 EACH TAB PO SCH ×2 (10:25→20:35)
[2017-05-15 10:31] LABS: Glucose,Whole Blood 137 mg/dL (75-99)
[2017-05-15] MEDS: ASPIRIN 325 MG TAB PO SCH (10:55)
[2017-05-15 11:12] LABS: Glucose,Whole Blood 129 mg/dL (75-99)
--- NOTE | 2017-05-15 12:20 | P.PN ---
<Fabiana Gee - Last Filed: 05/15/17 12:05> Subjective Progress Note Date: 05/15/17 Principal diagnosis: Carotid stenosis, status post right carotid endarterectomy. This is a 76-year-old male patient with status post carotid endarterectomy on the right and the patient is postop day #6. Note that the patient went into acute cardio pulmonary arrest postop day #2 and he was done with initially acute respiratory arrest and subsequent cardiac arrest for a total of 30 minutes during which the patient received a total of 10 mg of epinephrine and 2 A of bicarb and subsequently the patient was intubated and placed on mechanical ventilator and since then the patient has remained intubated. On today's evaluation of 05/11/2017, the patient is sedated on Diprivan at 45 mg per KG pigmented. The patient is heavily sedated. He occasionally bites the tube and he withdraws to some stimulation to his lower extremities bilaterally. Hemodynamically, the patient is on no pressors. The patient is still in pulmonary edema and his chest x-ray and the patient is currently on Lasix drip at 10 mg an hour. Urine output is more than 100 mL an hour daily basis. The urine is somewhat bloody as the patient had some bleeding related to Pradaxa intake and Pradaxa is currently off. The patient is on assist- control mode of ventilation at the rate of 26, tidal volume 500, FiO2 of 50% and a PEEP of 15. The blood gases from this morning showed a pH of 7.49, with a pCO2 of 39 and pO2 of 113. The chest x-ray still showing pulmonary edema. Minimal amount of bloody secretions from his orotracheal tube. He is synchronous with the mechanical ventilator. Breath sounds are equal and symmetrical bilaterally. Echocardiogram showed an ejection fraction of less than 20%. The patient is still in acute kidney injury. Creatinine is up to 3.3 yet he is nonoliguric at this stage and nephrology is on the case. We are going to continue the Lasix drip at the same rate for now. The patient is being controlled with an insulin drip in regards to his blood sugar. The patient has not been given any sedation holiday since his cardiac/pulmonary arrest. The patient is on tube feeds and receding vital high protein at the rate of 60 mL an hour. Otherwise, no other significant events overnight. The CAT scan of the brain that was obtained on 18 showed no acute abnormalities are then chronic cerebral atrophy. The patient has a hematoma over the right neck area which is currently stable and soft and the incision site is clean. On 05/13/2079 I'm seeing this patient for a follow-up in the patient was given a sedation holiday and he is opening up his eyes. He is not following any simple commands yet. No preferential gaze. No nystagmus. No agitation. He is doing some limited activity as far as movement in his upper extremities. He has a decent cough. The patient has no seizure activity. Incision over the right neck is clean and dry and the ecchymosis and hematoma over the right neck area soft and has not progressed. He is afebrile. He is on a mechanical ventilator. The PEEP has been drop down to 10 with an FiO2 of 50% and the patient remains on a tidal volume of 500 with a rate of 26. Chest x-ray shows some improvement in the volume status. The blood gases from today showed a pH of 7.49 with a pCO2 of 40 and pO2 of 74. The patient is on IV Lasix 60 mg every 8 hours. He is getting into a negative fluid balance. Hematuria is also improving. Otherwise the patient is producing adequate amount of urine output. Creatinine today is at 3.1 which is stable and not worse compared to yesterday. He is afebrile. He is tolerating his tube feeds. He was given a Dulcolax suppository. He is on no pressors. No other significant events overnight. Family is at the bedside. On 05/13/2017 I'm seeing this patient for a follow-up. The patient remains intubated on a mechanical ventilator. Note that the patient was taken off sedation throughout the day yesterday. He was waking up and he was opening his eyes spontaneously. He was not following commands initially. Subsequently he became more responsive and he follows some simple commands and today's able to wiggle his toes and move his fingers upon demand. He is calm and comfortable he is not agitated. Earlier this morning while being positioned in bed the patient became a bit tachycardic and tachypneic and agitated. He had to be placed back on Diprivan for a brief period of time and currently is back to being off sedation. He is still on a mechanical ventilator. I managed to drop the PEEP down to 8 and this morning he is an assist-control mode at the rate of 26, tidal volume of 500 with a PEEP of 8 and FiO2 of 40%. Blood gases showed a pH of 7.55 with a pCO2 of 39 and pO2 of 80. The chest x-ray from today still showing some but the pulmonary vessel congestion/edema. Nevertheless, the patient was diuresed adequately with accommodation of Lasix and Zaroxolyn the patient has been in a negative fluid balance of at least 5-6 L over the past 24 hours. This has resulted in to some metabolic alkalosis and the pH is up to 7.5 and a serum bicarb is up to 34. No hematuria this point. He is tolerating his tube feeds. No fever or chills. The incision site over the right neck area dry clean and intact. Blood pressure is fluctuating at times it's quite high requiring hydralazine pushes for blood pressure control. Cardiac rhythm is still sinus. He is off antibiotics for now. On 05/14/2017, I'm seeing this patient for a follow-up. The patient is being given a sedation holiday. He stayed off sedation throughout the day yesterday and he had to be placed on sedation again this morning. He is only on 20 mics of the prevent. He was awake and he was following commands yesterday. This morning, he is still on a mechanical ventilator. His PEEP has been drop down to 5. The patient is assist-control mode with a tidal volume 500, rate of 26 and the FiO2 down to 40%. Chest x-ray findings are stable. The patient was diuresed aggressively with IV Lasix and Zaroxolyn. Her net fluid balance over the past 24 hours is -3.6 L in the prior to that was -6.3 L. The swelling in the upper and lower occiput is improved and the patient's volume status also improved. The patient has a mild degree of metabolic alkalosis with a pH of 7.52 with a pCO2 of 42 and pO2 of 65 on today's blood gases. The renal function is still impaired. BN is up 214. Creatinine is up to 3.2. Lasix dose was cut down to 40 mg twice a day. Nephrology is on the case. No other significant events overnight. The patient remains in a normal sinus rhythm. The patient is off anticoagulants. The urine output is still somewhat bloody. There are no clots. the patient is seen again today in 05/15/2017 in follow-up in the intensive care unit. He was successfully extubated yesterday. He was placed on BiPAP 20/ 10 at 40% [id number] the evening.this morning he is awake and alert and following simple commands.computed tomography scan of the brain reveals old small right posterior frontal lobe cortical infarct. There is evidence of a subacute lacunar infarct in the right internal capsule that appears new compared to recent exam. His left lower extremity is quite weak his left upper extremity slightly weaker than the right. He is answering questions appropriately. He was removed from the BiPAPand placed on 40% Ventimask. He is maintaining O2 saturations in the 90s. Chest x-ray reveals improvement in the pulmonary vascular congestion. There is trace left pleural effusion. He remains on bronchodilators and Zosyn. White count 15.2. Hemoglobin 9.9.creatinine 3.30 BUN 132. He is receiving free water. He remains in a negative balance. He remains in sinus rhythm somewhat bradycardic. His family is at the bedside. Objective - Vital Signs Vital signs: Vital Signs Temp 98.3 F 05/15/17 08:00 Pulse 74 05/15/17 11:31 Resp 16 05/15/17 11:00 BP 113/53 05/15/17 05:00 Pulse Ox 95 05/15/17 11:25 Intake & Output 05/14/17 05/15/17 05/15/17 18:59 06:59 18:59 Intake Total 1240.159 340.024 332.509 Output Total 1600 1295 800 Balance -359.841 -954.976 -467.491 Weight 130.1 kg 130.1 kg Intake: IV 240 255.0 300 Dextrose 5% in Water 1, 150 000 ml @ 75 mls/hr IV . [id number] [facility] Rx#:[id number] Dextrose 5% in Water 500 150 ml @ 50 mls/hr IV .Q10H ONE Rx#:[id number] KVO 240 180 Piperacillin-Tazobactam 3 50 .375 gm In Dextrose/Water 1 50ml.bag @ 12.5 mls/hr IVPB Q12H [facility] Rx#: [id number] Piperacillin-Tazobactam 3 25.0 .375 gm In Dextrose/Water 1 50ml.bag @ 12.5 mls/hr IVPB Q12H [facility] Rx#: [id number] Intake, IV Titration 195.159 85.024 32.509 Amount Insulin Regular 100 unit 118.867 85.024 32.509 In Sodium Chloride 0.9% 100 ml @ Per Protocol IV .Q0M [facility] Rx#:[id number] Propofol 1,000 mg In 76.292 Empty Bag 1 bag @ Titrate IV .Q0M [facility] Rx#: [id number] Tube Feeding 605 Other 200 Output: Urine 1600 1295 800 Other: Voiding Method Indwelling Catheter Indwelling Catheter ABP, PAP, CO, CI - Last Documented Arterial Blood Pressure 139/47 - Exam Patient is awake and following some simple commands. He was maintained on BiPAP last night currently on 40% Ventimask. The patient is laying comfortably in bed and he is morbidly obese. . No nystagmus pain no preferential gaze. Pupils are equal and reactive to light. There is no seizure activity. No agitation. HEENT examination is grossly unremarkable. Mucous membranes are moist. No oral lesions. A hematoma can be visualized all over the neck area, APPLYING mainly the right neck area and the incision site is clean. The hematoma itself is soft and non-enlarging at this point. Neck supple. Full range of motion. No adenopathy thyromegaly or neck vein distention. There is tremendous bruising and ecchymoses about the neck from the recent surgery. It's more right than left-sided. There hematoma is stable for now. Cardiovascular examination reveals regular rhythm rate. S1-S2 normal. No S3 or S4. No discernible murmur noted. Heart sounds are distant. Lungs reveal diffuse bilateral rhonchi. Breath sounds are diminished. Some bibasilar crackles. No wheezes. Abdomen soft bowel sounds are heard. No masses or tenderness. Extremities are intact. No cyanosis clubbing or edema. Skin is without rash or lesion. Neurologic the patient has no focal neurological deficit. The patient is moving all 4 extremities. No facial asymmetry. No nystagmus. - Labs CBC & Chem 7: 05/15/17 05:04 05/15/17 05:04 Labs: Abnormal Lab Results - Last 24 Hours (Table) 05/14/17 05/14/17 05/14/17 Range/Units 12:20 12:45 14:05 WBC (3.8-10.6) k/uL RBC (4.30-5.90) m/uL Hgb (13.0-17.5) gm/dL Hct (39.0-53.0) % MCV (80.0-100.0) fL Neutrophils # (1.3-7.7) k/uL Monocytes # (0-1.0) k/uL ABG pH 7.51 H (7.35-7.45) ABG pO2 78 L (83-108) mmHg ABG HCO3 34 H (21-25) mmol/L ABG Total CO2 36 H (19-24) mmol/L Sodium (137-145) mmol/L Carbon Dioxide (22-30) mmol/L BUN (9-20) mg/dL Creatinine (0.66-1.25) mg/dL Glucose (74-99) mg/dL POC Glucose (mg/dL) 148 H 138 H (75-99) mg/dL AST (17-59) U/L 05/14/17 05/14/17 05/14/17 Range/Units 15:27 16:59 18:55 WBC (3.8-10.6) k/uL RBC (4.30-5.90) m/uL Hgb (13.0-17.5) gm/dL Hct (39.0-53.0) % MCV (80.0-100.0) fL Neutrophils # (1.3-7.7) k/uL Monocytes # (0-1.0) k/uL ABG pH (7.35-7.45) ABG pO2 (83-108) mmHg ABG HCO3 (21-25) mmol/L ABG Total CO2 (19-24) mmol/L Sodium (137-145) mmol/L Carbon Dioxide (22-30) mmol/L BUN (9-20) mg/dL Creatinine (0.66-1.25) mg/dL Glucose (74-99) mg/dL POC Glucose (mg/dL) 221 H 220 H 163 H (75-99) mg/dL AST (17-59) U/L 05/14/17 05/15/17 05/15/17 Range/Units 20:11 00:59 02:01 WBC (3.8-10.6) k/uL RBC (4.30-5.90) m/uL Hgb (13.0-17.5) gm/dL Hct (39.0-53.0) % MCV (80.0-100.0) fL Neutrophils # (1.3-7.7) k/uL Monocytes # (0-1.0) k/uL ABG pH (7.35-7.45) ABG pO2 (83-108) mmHg ABG HCO3 (21-25) mmol/L ABG Total CO2 (19-24) mmol/L Sodium (137-145) mmol/L Carbon Dioxide (22-30) mmol/L BUN (9-20) mg/dL Creatinine (0.66-1.25) mg/dL Glucose (74-99) mg/dL POC Glucose (mg/dL) 154 H 161 H 173 H (75-99) mg/dL AST (17-59) U/L 05/15/17 05/15/17 05/15/17 Range/Units 04:26 05:04 05:04 WBC 15.2 H (3.8-10.6) k/uL RBC 2.96 L (4.30-5.90) m/uL Hgb 9.9 L (13.0-17.5) gm/dL Hct 30.8 L (39.0-53.0) % MCV 104.1 H (80.0-100.0) fL Neutrophils # 11.6 H (1.3-7.7) k/uL Monocytes # 1.3 H (0-1.0) k/uL ABG pH (7.35-7.45) ABG pO2 (83-108) mmHg ABG HCO3 (21-25) mmol/L ABG Total CO2 (19-24) mmol/L Sodium 153 H (137-145) mmol/L Carbon Dioxide 35 H (22-30) mmol/L BUN 132 H* (9-20) mg/dL Creatinine 3.30 H (0.66-1.25) mg/dL Glucose 114 H (74-99) mg/dL POC Glucose (mg/dL) 123 H (75-99) mg/dL AST 60 H (17-59) U/L 05/15/17 05/15/17 05/15/17 Range/Units 05:25 06:23 08:40 WBC (3.8-10.6) k/uL RBC (4.30-5.90) m/uL Hgb (13.0-17.5) gm/dL Hct (39.0-53.0) % MCV (80.0-100.0) fL Neutrophils # (1.3-7.7) k/uL Monocytes # (0-1.0) k/uL ABG pH (7.35-7.45) ABG pO2 (83-108) mmHg ABG HCO3 (21-25) mmol/L ABG Total CO2 (19-24) mmol/L Sodium (137-145) mmol/L Carbon Dioxide (22-30) mmol/L BUN (9-20) mg/dL Creatinine (0.66-1.25) mg/dL Glucose (74-99) mg/dL POC Glucose (mg/dL) 131 H 155 H 151 H (75-99) mg/dL AST (17-59) U/L 05/15/17 05/15/17 Range/Units 10:29 11:10 WBC (3.8-10.6) k/uL RBC (4.30-5.90) m/uL Hgb (13.0-17.5) gm/dL Hct (39.0-53.0) % MCV (80.0-100.0) fL Neutrophils # (1.3-7.7) k/uL Monocytes # (0-1.0) k/uL ABG pH (7.35-7.45) ABG pO2 (83-108) mmHg ABG HCO3 (21-25) mmol/L ABG Total CO2 (19-24) mmol/L Sodium (137-145) mmol/L Carbon Dioxide (22-30) mmol/L BUN (9-20) mg/dL Creatinine (0.66-1.25) mg/dL Glucose (74-99) mg/dL POC Glucose (mg/dL) 137 H 129 H (75-99) mg/dL AST (17-59) U/L Microbiology - Last 24 Hours (Table) 05/09/17 09:12 Blood Culture - Final Blood No Growth after 144 hours 05/12/17 21:20 Gram Stain - Final Sputum Sputum Culture - Final Kelly albicans 05/12/17 21:20 Blood Culture - Preliminary Blood No Growth after 48 hours 05/13/17 00:01 Urine Culture - Final Urine,Catheterized Assessment and Plan Plan: Assessment 1 right carotid endarterectomy and the patient is postop day #10 2 acute cardio pulmonary arrest. This is most like an acute pulmonary edema for by cardiac arrest and the patient had a downtime of at least 25 minutes. He received a total of 10mgrams epinephrine and bicarb requiring intubated on a mechanical ventilator. Successfully extubated yesterday 05/14/2017. He is alternating between BiPAP and Ventimask 3 CHF with an ejection fraction of less than 20% 4 suspected acute non-STEMI with ST segment depression and some mild troponin leak that peaked at 2.8 with underlying history of coronary artery disease 5 acute kidney injury, patient is nonoliguric. Urine output is improved and the patient is a negative fluid balance on a combination of Lasix and Zaroxolyn. 6 acute respiratory failure secondary to above, chest x-ray from today shows improvement in the volume status with some residual interstitial edema. The patient is improved significantly and the PEEP has been drop down to 5 and the chest x-ray shows improvement in the volume status. 7 diabetes mellitus currently on insulin drip for blood sugar control 8 possible hypoxic/anoxic encephalopathy suspected. computed tomography scan of the brain 05/14/2017 reveals an old small right posterior frontal lobe cortical infarct. There is evidence of a subacute lacunar infarct in the right internal capsule 9 obstructive sleep apnea and on BiPAP on outpatient basis at a pressure of 21/ 17 10 hypertension, fluctuating blood pressure 11 hyperlipidemia 12 morbid obesity 13 gout 14 hematoma over the neck especially over the right anterior neck area with a clean incision, postsurgical To get further by the intake of anticoagulants 15 mild hematuria, improving Plan: The patient was seen and evaluated by Dr. Kimball. His CAT scan, chest x-ray and labs were all reviewed. We have held the BiPAP and the patient is currently on a 40 percent Ventimask. He is awake and alert and following commands. He does have some left-sided weakness more so on the left lower extremity. Computed tomography scan does reveal subacute stroke. Neurology is on the case. We'll allow the patient few sips of water and assess his swallow abilities. Continue with free water. Continue to monitor her him here closely in the intensive care unit. Family is at the bedside and updated on his current condition. I, the cosigning physician, performed a history & physical examination of the patient. Lungs sounds have crackles in the bilateral posterior basesr. Maintaining good O2 saturations in the 90s on 40% Ventimask. I discussed the assessment and plan of care with my nurse practitioner, Fabiana Gee. I attest to the above note as dictated by her. <Jelena Kimabll - Last Filed: 05/15/17 18:28> Objective - Vital Signs Vital signs: Vital Signs Temp 98.1 F 05/15/17 16:00 Pulse 69 05/15/17 17:00 Resp 16 05/15/17 17:00 BP 113/53 05/15/17 05:00 Pulse Ox 97 05/15/17 17:00 Intake & Output 05/14/17 05/15/17 05/15/17 18:59 06:59 18:59 Intake Total 1240.159 340.024 744.109 Output Total 1600 1295 1305 Balance -359.841 -954.976 -560.891 Weight 130.1 kg 130.1 kg Intake: IV 240 255.0 675 Dextrose 5% in Water 1, 525 000 ml @ 75 mls/hr IV . [id number] [facility] Rx#:[id number] Dextrose 5% in Water 500 150 ml @ 50 mls/hr IV .Q10H [facility] Rx#:[id number] KVO 240 180 Piperacillin-Tazobactam 3 50 .375 gm In Dextrose/Water 1 50ml.bag @ 12.5 mls/hr IVPB Q12H [facility] Rx#: [id number] Piperacillin-Tazobactam 3 25.0 .375 gm In Dextrose/Water 1 50ml.bag @ 12.5 mls/hr IVPB Q12H [facility] Rx#: [id number] Intake, IV Titration 195.159 85.024 69.109 Amount Insulin Regular 100 unit 118.867 85.024 69.109 In Sodium Chloride 0.9% 100 ml @ Per Protocol IV .Q0M [facility] Rx#:[id number] Propofol 1,000 mg In 76.292 Empty Bag 1 bag @ Titrate IV .Q0M [facility] Rx#: [id number] Tube Feeding 605 Other 200 Output: Urine 1600 1295 1305 Other: Voiding Method Indwelling Catheter Indwelling Catheter Indwelling Catheter ABP, PAP, CO, CI - Last Documented Arterial Blood Pressure 134/33 - Labs CBC & Chem 7: 05/15/17 05:04 05/15/17 12:35 Labs: Abnormal Lab Results - Last 24 Hours (Table) 05/14/17 05/14/17 05/15/17 Range/Units 18:55 20:11 00:59 WBC (3.8-10.6) k/uL RBC (4.30-5.90) m/uL Hgb (13.0-17.5) gm/dL Hct (39.0-53.0) % MCV (80.0-100.0) fL Neutrophils # (1.3-7.7) k/uL Monocytes # (0-1.0) k/uL Sodium (137-145) mmol/L Carbon Dioxide (22-30) mmol/L BUN (9-20) mg/dL Creatinine (0.66-1.25) mg/dL Glucose (74-99) mg/dL POC Glucose (mg/dL) 163 H 154 H 161 H (75-99) mg/dL AST (17-59) U/L 05/15/17 05/15/17 05/15/17 Range/Units 02:01 04:26 05:04 WBC 15.2 H (3.8-10.6) k/uL RBC 2.96 L (4.30-5.90) m/uL Hgb 9.9 L (13.0-17.5) gm/dL Hct 30.8 L (39.0-53.0) % MCV 104.1 H (80.0-100.0) fL Neutrophils # 11.6 H (1.3-7.7) k/uL Monocytes # 1.3 H (0-1.0) k/uL Sodium (137-145) mmol/L Carbon Dioxide (22-30) mmol/L BUN (9-20) mg/dL Creatinine (0.66-1.25) mg/dL Glucose (74-99) mg/dL POC Glucose (mg/dL) 173 H 123 H (75-99) mg/dL AST (17-59) U/L 05/15/17 05/15/17 05/15/17 Range/Units 05:04 05:25 06:23 WBC (3.8-10.6) k/uL RBC (4.30-5.90) m/uL Hgb (13.0-17.5) gm/dL Hct (39.0-53.0) % MCV (80.0-100.0) fL Neutrophils # (1.3-7.7) k/uL Monocytes # (0-1.0) k/uL Sodium 153 H (137-145) mmol/L Carbon Dioxide 35 H (22-30) mmol/L BUN 132 H* (9-20) mg/dL Creatinine 3.30 H (0.66-1.25) mg/dL Glucose 114 H (74-99) mg/dL POC Glucose (mg/dL) 131 H 155 H (75-99) mg/dL AST 60 H (17-59) U/L 05/15/17 05/15/17 05/15/17 Range/Units 08:40 10:29 11:10 WBC (3.8-10.6) k/uL RBC (4.30-5.90) m/uL Hgb (13.0-17.5) gm/dL Hct (39.0-53.0) % MCV (80.0-100.0) fL Neutrophils # (1.3-7.7) k/uL Monocytes # (0-1.0) k/uL Sodium (137-145) mmol/L Carbon Dioxide (22-30) mmol/L BUN (9-20) mg/dL Creatinine (0.66-1.25) mg/dL Glucose (74-99) mg/dL POC Glucose (mg/dL) 151 H 137 H 129 H (75-99) mg/dL AST (17-59) U/L 05/15/17 05/15/17 05/15/17 Range/Units 12:24 12:35 14:14 WBC (3.8-10.6) k/uL RBC (4.30-5.90) m/uL Hgb (13.0-17.5) gm/dL Hct (39.0-53.0) % MCV (80.0-100.0) fL Neutrophils # (1.3-7.7) k/uL Monocytes # (0-1.0) k/uL Sodium 150 H (137-145) mmol/L Carbon Dioxide (22-30) mmol/L BUN 126 H* (9-20) mg/dL Creatinine 3.17 H (0.66-1.25) mg/dL Glucose 178 H (74-99) mg/dL POC Glucose (mg/dL) 184 H 176 H (75-99) mg/dL AST (17-59) U/L 05/15/17 05/15/17 Range/Units 16:27 18:22 WBC (3.8-10.6) k/uL RBC (4.30-5.90) m/uL Hgb (13.0-17.5) gm/dL Hct (39.0-53.0) % MCV (80.0-100.0) fL Neutrophils # (1.3-7.7) k/uL Monocytes # (0-1.0) k/uL Sodium (137-145) mmol/L Carbon Dioxide (22-30) mmol/L BUN (9-20) mg/dL Creatinine (0.66-1.25) mg/dL Glucose (74-99) mg/dL POC Glucose (mg/dL) 133 H 203 H (75-99) mg/dL AST (17-59) U/L Microbiology - Last 24 Hours (Table) 05/09/17 09:12 Blood Culture - Final Blood No Growth after 144 hours 05/12/17 21:20 Gram Stain - Final Sputum Sputum Culture - Final Kelly albicans 05/12/17 21:20 Blood Culture - Preliminary Blood No Growth after 48 hours Assessment and Plan Plan: This is a joint evaluation that was done along with a nurse practitioner. The patient is awake and alert. The patient was taken off the BiPAP this morning and he was placed on a Ventimask. He should be able to swallow and his swallow evaluation will be obtained. His renal function is still impaired and the patient is still producing adequate amount of urine output. In fact is in a negative fluid balance while being on a combination of Lasix and Zaroxolyn. The patient will be asked to use the incentive spirometer. Chest x-ray showing improvement in the volume status. Diuretics will be stopped for now. The patient be started on D5 water as the patient has become hypernatremic and the creatinine is up to 3.1 with a BMI level of 150. The patient is also having occasional premature ventricular complexes and the patient is currently on Coreg. The patient is having some increased gouty arthritic pain and he was started on colchicine 0.6 mg on a daily basis. We'll continue to follow. Stop the Diamox. He'll be kept in ICU.
[2017-05-15 12:27] LABS: Glucose,Whole Blood 184 mg/dL (75-99)
[2017-05-15] MEDS: INSULIN REGULAR 100 UNIT in SODIUM CHLORIDE 0.9% 100 ML IV SCH (12:27)
[2017-05-15] MEDS: DEXTROSE 5% IN WATER 1,000 ML IV SCH ×2 (12:28→21:41)
[2017-05-15 13:23] LABS: Potassium 3.8 mmol/L (3.5-5.1)
--- NOTE | 2017-05-15 14:14 | P.PN ---
Subjective Progress Note Date: 05/15/17 76-year-old male who underwent elective right carotid endarterectomy with patch angioplasty on 05/06/[address] Mckenzie was consulted for medical management. The patient has a history of bilateral carotid stenosis, atrial fibrillation, coronary disease, diabetes mellitus, gastroesophageal reflux disease, hyperlipidemia, hypertension, osteoarthritis, and sleep apnea. 05/07/2017 The patient was seen and examined in the intensive care unit on rounds Dr. Mckenzie. The patient is sitting up in the chair. Family is at the bedside. The patient remains on a nitro drip at 60 mcg/min. Systolic blood pressures ranging in the 140s. The patient is complaining of pain at the surgical site. Dressing is in place. Swelling is noted near surgical site. Patient denies shortness of breath or coughing. Denies chest pain or pressure. Denies nausea or vomiting. States he is tolerating PO intake well without nausea or vomiting. 05/08/2017 Patient remains in intensive care unit. He is postop day #2 right carotid endarterectomy. The patient is sitting up in the chair. the patient's nitro drip has been weaned off. He was started on Norvasc 10 mg daily yesterday along with hydralazine 50 mg by mouth 3 times a day. Patients blood sugars remain elevated in the 200s. Patient utilizes an insulin pump at home. Patient 's insulin pump is currently not with him as it was empty and patient's was going to bring his insulin pump back to the hospital after she refilled it. patient remains on 6 L nasal cannula with oxygen saturations greater than 92%. He denies shortness of breath. Denies chest pain or pressure. Tolerating by mouth intake without nausea or vomiting. WBC 13.2. Hemoglobin 10.6. BUN 38. Creatinine 1.40. 05/09/2017-Notes per Dr. Mckenzie 05/10/2017-Notes per Dr. Mckenzie 05/11/2017 Patient seen and examined at the bedside on rounds with Dr. Corona. Patient went into cardiac arrest on 05/08/2017 and was successfully resuscitated after approximately 20 minutes of CPR. Patient remains intubated in the intensive care unit on mechanical ventilation. Patient is currently on IV propofol secondary to patient biting on his ET tube and bucking the ventilator. Sedation holiday has not been performed per nursing secondary to hemodynamic instability. Patient remains on 50% FiO2. Patient has required vasopressor secondary to hypotension. Levophed is currently off this morning. Chest x-ray this morning reveals mild cardio megaly with persistent central bilateral perihilar edema and/or infiltrates. ARDS is not excluded. Patient remains on Lasix drip. Patient also remains on insulin drip. Creatinine this morning is 3.30. Nephrology is on consult. Patient underwent CT of the brain which was negative for an acute process. 05/12/2017 Patient seen and examined at the bedside on rounds with Dr. Corona. Patient remains intubated in the intensive care unit. Family at the bedside. Patient sedation has been held for approximately 40 minutes. Patient is not following commands but is moving all extremities. Patient's eyes are open but patient is not tracking currently. Tube feedings are infusing. Patient is tolerating well. Patient has not had a bowel movement per nursing and just received a rectal suppository. Patient remains on insulin drip. Currently at 8.5 units an hour. Lasix drip was discontinued this morning per nephrology. Creatinine 3.10 this morning. Urinary output remains adequate. Hematuria is improving. Blood pressure is currently elevated in the 170s which may be secondary to agitation as sedation has been on hold. Nursing reports blood pressure has been running in the 140s when patient is sedated. 05/13/2017 Patient seen and examined at the bedside on rounds with Dr. Corona. is at the bedside. Per nursing, patients propofol was off yesterday and patient was able to follow some simple commands. Patient became agitated this morning and sedation was resumed. It has since been turned off. Patient does remain lethargic. He is able to open his eyes to commands and slightly wiggle his toes upon command when asked repeatedly, but then drifts back off to sleep. Patient remains on an insulin dip at 11.5 units an hour. Blood sugars are 161-196. Boothe remains intact with blood tinged urine. Tube feeding is infusing at 45 cc/ hr which is goal. Patient tolerated well. Bowel movement yesterday. Blood pressure remains elevated at times. Hydralazine PRN was ordered yesterday. Coreg has been ordered today per pulmonary. 05/14/2017 Patient seen and examined at the bedside on rounds with Dr. Corona. Patient remains on mechanical ventilation. FiO2 has been decreased to 40% per pulmonary. Patient remains off sedation and is able to follow simple commands. Tube feeding is infusing at 45 mL an hour which is goal. Patient is tolerating well. Indwelling urinary catheter remains intact with blood-tinged urine. Blood sugars are ranging between 140 and 174. Patient remains on an insulin drip. 05/15/2017 patient seen and examined at the bedside in the intensive care unit. Patient has been asked to be and is currently on BiPAP with FiO2 of 40%. Oxygen saturation is greater than 92%. Patient continues to have left sided weakness and underwent CT of the brain. CT of the brain reveals small right posterior frontal lobe cortical infarct. Evidence of subacute lacunar infarct in the right internal capsule that appears new in comparison to old exam. his aspirin was increased to 325 mg daily per neurology. chest x-ray this morning reveals improvement in pulmonary vascular congestion and persistent trace left pleural effusion. patient's sodium this morning is 153. Nephrology ordered D5W at 50 cc for 6 hours. Patient's potassium remains borderline low as well. Potassium supplementation ordered per nephrology. blood sugars are ranging from 137-155. Patient remains on insulin drip. Objective - Vital Signs Vital signs: Vital Signs Temp 98.3 F 05/15/17 08:00 Pulse 68 05/15/17 10:00 Resp 14 05/15/17 10:00 BP 113/53 05/15/17 05:00 Pulse Ox 100 05/15/17 10:00 Intake & Output 05/14/17 05/15/17 05/15/17 18:59 06:59 18:59 Intake Total 1240.159 340.024 182.509 Output Total 1600 1295 600 Balance -359.841 -954.976 -417.491 Weight 130.1 kg Intake: IV 240 255.0 150 Dextrose 5% in Water 500 150 ml @ 50 mls/hr IV .Q10H ONE Rx#:[id number] KVO 240 180 Piperacillin-Tazobactam 3 50 .375 gm In Dextrose/Water 1 50ml.bag @ 12.5 mls/hr IVPB Q12H JOSÉ MIGUEL Rx#: [id number] Piperacillin-Tazobactam 3 25.0 .375 gm In Dextrose/Water 1 50ml.bag @ 12.5 mls/hr IVPB Q12H JOSÉ MIGUEL Rx#: [id number] Intake, IV Titration 195.159 85.024 32.509 Amount Insulin Regular 100 unit 118.867 85.024 32.509 In Sodium Chloride 0.9% 100 ml @ Per Protocol IV .Q0M JOSÉ MIGUEL Rx#:[id number] Propofol 1,000 mg In 76.292 Empty Bag 1 bag @ Titrate IV .Q0M JOSÉ MIGUEL Rx#: [id number] Tube Feeding 605 Other 200 Output: Urine 1600 1295 600 Other: Voiding Method Indwelling Catheter Indwelling Catheter ABP, PAP, CO, CI - Last Documented Arterial Blood Pressure 140/52 - Exam GENERAL: This is a 76-year-old male who is awake and alert. HEENT: Head is atraumatic, normocephalic. Pupils are equal, round, and reactive to light. Sclerae anicteric. Conjunctivae are clear. Mucus membranes of the mouth are moist. Neck is supple. Extensive ecchymosis noted throughout neck. RESPIRATORY: Diminished throughout. Patient maintaining oxygen saturation greater than 92%. No chest wall tenderness is noted on palpation or with deep breathing. CARDIOVASCULAR: Regular rate and rhythm. S1 and S2 noted. No systolic or diastolic murmur auscultated. No JVD noted. No S3 or S4 noted. GASTROINTESTINAL: No distention noted. Abdomen soft and round. Normal active bowel sounds auscultated x 4 quadrants. No pain or tenderness noted upon palpation. INTEGUMENTARY: Ecchymosis noted around surgical area. No cyanosis. No jaundice. EXTREMITIES: 1+ peripheral pulses. trace bilateral lower extremity edema No calf tenderness noted. NEUROLOGIC/PSYCHIATRIC: alert and oriented 3. Weakness of left upper and lower extremities present. Patient able to grasp with left hand, although week. Unable to wiggle toes on left side. Speech is clear. - Labs CBC & Chem 7: 05/15/17 05:04 05/15/17 12:35 Labs: Abnormal Lab Results - Last 24 Hours (Table) 05/14/17 05/14/17 05/14/17 Range/Units 11:04 12:20 12:45 WBC (3.8-10.6) k/uL RBC (4.30-5.90) m/uL Hgb (13.0-17.5) gm/dL Hct (39.0-53.0) % MCV (80.0-100.0) fL Neutrophils # (1.3-7.7) k/uL Monocytes # (0-1.0) k/uL ABG pH 7.51 H (7.35-7.45) ABG pO2 78 L (83-108) mmHg ABG HCO3 34 H (21-25) mmol/L ABG Total CO2 36 H (19-24) mmol/L Sodium (137-145) mmol/L Carbon Dioxide (22-30) mmol/L BUN (9-20) mg/dL Creatinine (0.66-1.25) mg/dL Glucose (74-99) mg/dL POC Glucose (mg/dL) 152 H 148 H (75-99) mg/dL AST (17-59) U/L 05/14/17 05/14/17 05/14/17 Range/Units 14:05 15:27 16:59 WBC (3.8-10.6) k/uL RBC (4.30-5.90) m/uL Hgb (13.0-17.5) gm/dL Hct (39.0-53.0) % MCV (80.0-100.0) fL Neutrophils # (1.3-7.7) k/uL Monocytes # (0-1.0) k/uL ABG pH (7.35-7.45) ABG pO2 (83-108) mmHg ABG HCO3 (21-25) mmol/L ABG Total CO2 (19-24) mmol/L Sodium (137-145) mmol/L Carbon Dioxide (22-30) mmol/L BUN (9-20) mg/dL Creatinine (0.66-1.25) mg/dL Glucose (74-99) mg/dL POC Glucose (mg/dL) 138 H 221 H 220 H (75-99) mg/dL AST (17-59) U/L 05/14/17 05/14/17 05/15/17 Range/Units 18:55 20:11 00:59 WBC (3.8-10.6) k/uL RBC (4.30-5.90) m/uL Hgb (13.0-17.5) gm/dL Hct (39.0-53.0) % MCV (80.0-100.0) fL Neutrophils # (1.3-7.7) k/uL Monocytes # (0-1.0) k/uL ABG pH (7.35-7.45) ABG pO2 (83-108) mmHg ABG HCO3 (21-25) mmol/L ABG Total CO2 (19-24) mmol/L Sodium (137-145) mmol/L Carbon Dioxide (22-30) mmol/L BUN (9-20) mg/dL Creatinine (0.66-1.25) mg/dL Glucose (74-99) mg/dL POC Glucose (mg/dL) 163 H 154 H 161 H (75-99) mg/dL AST (17-59) U/L 05/15/17 05/15/17 05/15/17 Range/Units 02:01 04:26 05:04 WBC 15.2 H (3.8-10.6) k/uL RBC 2.96 L (4.30-5.90) m/uL Hgb 9.9 L (13.0-17.5) gm/dL Hct 30.8 L (39.0-53.0) % MCV 104.1 H (80.0-100.0) fL Neutrophils # 11.6 H (1.3-7.7) k/uL Monocytes # 1.3 H (0-1.0) k/uL ABG pH (7.35-7.45) ABG pO2 (83-108) mmHg ABG HCO3 (21-25) mmol/L ABG Total CO2 (19-24) mmol/L Sodium (137-145) mmol/L Carbon Dioxide (22-30) mmol/L BUN (9-20) mg/dL Creatinine (0.66-1.25) mg/dL Glucose (74-99) mg/dL POC Glucose (mg/dL) 173 H 123 H (75-99) mg/dL AST (17-59) U/L 05/15/17 05/15/17 05/15/17 Range/Units 05:04 05:25 06:23 WBC (3.8-10.6) k/uL RBC (4.30-5.90) m/uL Hgb (13.0-17.5) gm/dL Hct (39.0-53.0) % MCV (80.0-100.0) fL Neutrophils # (1.3-7.7) k/uL Monocytes # (0-1.0) k/uL ABG pH (7.35-7.45) ABG pO2 (83-108) mmHg ABG HCO3 (21-25) mmol/L ABG Total CO2 (19-24) mmol/L Sodium 153 H (137-145) mmol/L Carbon Dioxide 35 H (22-30) mmol/L BUN 132 H* (9-20) mg/dL Creatinine 3.30 H (0.66-1.25) mg/dL Glucose 114 H (74-99) mg/dL POC Glucose (mg/dL) 131 H 155 H (75-99) mg/dL AST 60 H (17-59) U/L 05/15/17 05/15/17 Range/Units 08:40 10:29 WBC (3.8-10.6) k/uL RBC (4.30-5.90) m/uL Hgb (13.0-17.5) gm/dL Hct (39.0-53.0) % MCV (80.0-100.0) fL Neutrophils # (1.3-7.7) k/uL Monocytes # (0-1.0) k/uL ABG pH (7.35-7.45) ABG pO2 (83-108) mmHg ABG HCO3 (21-25) mmol/L ABG Total CO2 (19-24) mmol/L Sodium (137-145) mmol/L Carbon Dioxide (22-30) mmol/L BUN (9-20) mg/dL Creatinine (0.66-1.25) mg/dL Glucose (74-99) mg/dL POC Glucose (mg/dL) 151 H 137 H (75-99) mg/dL AST (17-59) U/L Microbiology - Last 24 Hours (Table) 05/12/17 21:20 Gram Stain - Final Sputum Sputum Culture - Final Kelly albicans 05/12/17 21:20 Blood Culture - Preliminary Blood No Growth after 48 hours 05/13/17 00:01 Urine Culture - Final Urine,Catheterized 05/09/17 09:12 Blood Culture - Preliminary Blood No Growth after 120 hours Assessment and Plan Plan: ASSESSMENT: Bilateral carotid stenosis, s/p right carotid endarterectomy, POD #10 Acute cardiopulmonary arrest requiring mechanical ventilation, likely secondary to acute pulmonary edema with a downtime of at least 20 minutes, extubated 05/14 Acute exacerbation of systolic congestive heart failure, ejection fraction 20% Suspected acute non-ST elevated ID Acute kidney injury, suspect secondary to prolonged cardiopulmonary arrest and diuresis Chronic disease, stage III, secondary to nephrosclerosis baseline creatinine 1.2 Hypoxic/anoxic encephalopathy secondary to prolonged cardiopulmonary arrest Hypertension Diabetes mellitus, type II, utilizing insulin pump at home Coronary artery disease Atrial fibrillation, 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 Lasix discontinued at this time. D5W ordered per nephrology for hypernatremia Monitor blood pressure. Continue hydralazine PRN for hypertension. Coreg added per pulmonary Neurology on consult. Appreciate recommendations and input. Monitor hematuria. Continue to hold Pradaxa Home meds as appropriate Monitor labs GI prophylaxis: Protonix 40mg IV BID DVT prophylaxis: CONCEPCIÓN hose and Venodyne's to bilateral lower extremities Monitor vital signs and address as appropriate Further recommendations pending patient's course Nurse practitioner note has been reviewed by physician. Signing provider agrees with the documented findings, assessment, and plan of care.
[2017-05-15 14:15] LABS: Glucose,Whole Blood 176 mg/dL (75-99)
[2017-05-15] MEDS ORDERED: POTASSIUM CHLORIDE 10 MEQ in WATER FOR INJECTION 1 100ML.BAG IVPB STA (14:35)
--- NOTE | 2017-05-15 14:54 | PN ---
PROGRESS NOTE Patient is seen for followup for acute kidney injury status post cardiac arrest. The patient had been in severe volume overload and CHF. He was initially maintained on Lasix drip, which was subsequently decreased and switched to IV Lasix. Yesterday patient received just one dose of IV Lasix, and since then it has been held. He continues to have good urine output. The patient received 2 doses of Diamox for metabolic alkalosis. He has also been maintained on Zaroxolyn, which was discontinued today. The patient was extubated yesterday. He is currently awake, maintained on BiPAP, doing fairly okay. On examination, blood pressure is 139/43, heart rate 66 per minute. He is afebrile. EXAMINATION OF THE HEART: S1, S2. EXAMINATION OF LUNGS: Bilateral breath sounds are heard. ABDOMEN: Soft, non-tender, obese. Examination of lower extremities shows no evidence of edema. DENTURE WAXER exam is grossly intact. Patient moving all 4 extremities. Labs show sodium 150, potassium 3.8, BUN 126, serum creatinine 3.17. ASSESSMENT: 1. Acute kidney injury, initially acute tubular necrosis from hypotension, hypoperfusion and cardiac arrest and also a component from cardiorenal syndrome. Recently his creatinine is elevated from diuresis. We have decreased the diuretics significantly. I will hold off on all diuretics for now. The patient will get D5W for about 6 hours and we will repeat his labs. 2. Status post right carotid endarterectomy. 3. Vent-dependent respiratory failure, currently extubated. 4. Status post cardiac arrest following right carotid endarterectomy. 5. Hypernatremia associated with free water deficit, maintained on D5W for about 6 hours. Encourage increased free water intake. 6. Severe cardiomyopathy; ejection fraction about 20% noted on current echocardiogram. PLAN: Hold off on the metolazone and any further doses of Lasix. Patient has not received any Lasix since yesterday morning. We will repeat labs this evening and again tomorrow. Encourage increased free water intake and will maintain D5W for about 6 hours. MMODL / IJN: [id number] /
--- NOTE | 2017-05-15 15:25 | P.PN ---
Subjective Progress Note Date: 05/15/17 This patient is a 76-year-old right-handed white male who underwent a right carotid endarterectomy. Following this procedure 2 days later he suffered a cardiac arrest. He was intubated and has been making slow recovery following his cardiac arrest. He has evidence of a diffuse anoxic encephalopathy based on his clinical history and EEG findings. The patient was extubated yesterday and was placed on BiPAP. Yesterday evening he was noted to have increase left upper extremity weakness. He was sent for a computed tomography scan of the brain yesterday which did reveal evidence of a subacute lacunar infarct in the right internal capsule. This was not appreciated on a previous study done on . This suggest he has suffered an acute infarct in the right internal capsule. This would explain his left-sided weakness. Patient was seen by Dr. Juárez today and he was aware of his CAT scan findings. He recommends to continue to work with respiratory therapy as well as physical therapy and speech therapy. They're recommending a swallow study for the patient as well. The patient neurologically is much more awake and alert today. He is able to answer questions appropriately. He does have evidence of left-sided hemiparesthesias on examination. We have recommended to increase his dose of aspirin to full adult aspirin 325 mg daily based on his new CAT scan findings. We will await further recommendations from Dr. Juárez. His overall prognosis at this time remains guarded. This case was discussed at length with the patient's who is at bedside. She was updated on his CAT scan of the brain results that were done yesterday. We will continue close neurological follow- up for the patient. Objective - Vital Signs Vital signs: Vital Signs Temp 98.1 F 05/15/17 12:00 Pulse 66 05/15/17 15:00 Resp 23 05/15/17 15:00 BP 113/53 05/15/17 05:00 Pulse Ox 94 L 05/15/17 15:00 Intake & Output 05/14/17 05/15/17 05/15/17 18:59 06:59 18:59 Intake Total 1240.159 340.024 482.509 Output Total 1600 1295 1000 Balance -359.841 -954.976 -517.491 Weight 130.1 kg 130.1 kg Intake: IV 240 255.0 450 Dextrose 5% in Water 1, 300 000 ml @ 75 mls/hr IV . [id number] [facility] Rx#:[id number] Dextrose 5% in Water 500 150 ml @ 50 mls/hr IV .Q10H [facility] Rx#:[id number] KVO 240 180 Piperacillin-Tazobactam 3 50 .375 gm In Dextrose/Water 1 50ml.bag @ 12.5 mls/hr IVPB Q12H [facility] Rx#: [id number] Piperacillin-Tazobactam 3 25.0 .375 gm In Dextrose/Water 1 50ml.bag @ 12.5 mls/hr IVPB Q12H [facility] Rx#: [id number] Intake, IV Titration 195.159 85.024 32.509 Amount Insulin Regular 100 unit 118.867 85.024 32.509 In Sodium Chloride 0.9% 100 ml @ Per Protocol IV .Q0M [facility] Rx#:[id number] Propofol 1,000 mg In 76.292 Empty Bag 1 bag @ Titrate IV .Q0M [facility] Rx#: [id number] Tube Feeding 605 Other 200 Output: Urine 1600 1295 1000 Other: Voiding Method Indwelling Catheter Indwelling Catheter Indwelling Catheter ABP, PAP, CO, CI - Last Documented Arterial Blood Pressure 123/47 - Exam Physical examination: PHYSICAL EXAMINATION: Patient is resting comfortably in bed. He was extubated yesterday. VITAL SIGNS: Blood pressure is [138/52]. Heart rate is [77]. Respiration is [17] . Temperature is [98.1]. HEENT: Head is atraumatic, neck is supple, there were no carotid bruits. CHEST: Lungs are clear to auscultation and percussion. CARDIAC: S1, S2 normal rate and rhythm. There is no murmur. ABDOMEN: Soft and nontender. Bowel sounds are present. EXTREMITIES: There is no pedal edema. Peripheral pulses are present. Neurological examination: Patient was extubated yesterday. He is more awake and alert today. He is following simple commands. Patient is much more awake and alert and is making full sentences. Family is noted significant improvement in his overall mental status. Cranial nerves II through XII are grossly intact. Motor examination reveals left-sided hemiparesis 3+/5 on the left side. The deep tendon reflexes are 1+ and symmetric. Plantar responses flexor bilaterally. Coordination gait cannot be assessed in this patient at this time. - Labs CBC & Chem 7: 05/15/17 05:04 05/15/17 12:35 Labs: Abnormal Lab Results - Last 24 Hours (Table) 05/14/17 05/14/17 05/14/17 Range/Units 15:27 16:59 18:55 WBC (3.8-10.6) k/uL RBC (4.30-5.90) m/uL Hgb (13.0-17.5) gm/dL Hct (39.0-53.0) % MCV (80.0-100.0) fL Neutrophils # (1.3-7.7) k/uL Monocytes # (0-1.0) k/uL Sodium (137-145) mmol/L Carbon Dioxide (22-30) mmol/L BUN (9-20) mg/dL Creatinine (0.66-1.25) mg/dL Glucose (74-99) mg/dL POC Glucose (mg/dL) 221 H 220 H 163 H (75-99) mg/dL AST (17-59) U/L 05/14/17 05/15/17 05/15/17 Range/Units 20:11 00:59 02:01 WBC (3.8-10.6) k/uL RBC (4.30-5.90) m/uL Hgb (13.0-17.5) gm/dL Hct (39.0-53.0) % MCV (80.0-100.0) fL Neutrophils # (1.3-7.7) k/uL Monocytes # (0-1.0) k/uL Sodium (137-145) mmol/L Carbon Dioxide (22-30) mmol/L BUN (9-20) mg/dL Creatinine (0.66-1.25) mg/dL Glucose (74-99) mg/dL POC Glucose (mg/dL) 154 H 161 H 173 H (75-99) mg/dL AST (17-59) U/L 05/15/17 05/15/17 05/15/17 Range/Units 04:26 05:04 05:04 WBC 15.2 H (3.8-10.6) k/uL RBC 2.96 L (4.30-5.90) m/uL Hgb 9.9 L (13.0-17.5) gm/dL Hct 30.8 L (39.0-53.0) % MCV 104.1 H (80.0-100.0) fL Neutrophils # 11.6 H (1.3-7.7) k/uL Monocytes # 1.3 H (0-1.0) k/uL Sodium 153 H (137-145) mmol/L Carbon Dioxide 35 H (22-30) mmol/L BUN 132 H* (9-20) mg/dL Creatinine 3.30 H (0.66-1.25) mg/dL Glucose 114 H (74-99) mg/dL POC Glucose (mg/dL) 123 H (75-99) mg/dL AST 60 H (17-59) U/L 05/15/17 05/15/17 05/15/17 Range/Units 05:25 06:23 08:40 WBC (3.8-10.6) k/uL RBC (4.30-5.90) m/uL Hgb (13.0-17.5) gm/dL Hct (39.0-53.0) % MCV (80.0-100.0) fL Neutrophils # (1.3-7.7) k/uL Monocytes # (0-1.0) k/uL Sodium (137-145) mmol/L Carbon Dioxide (22-30) mmol/L BUN (9-20) mg/dL Creatinine (0.66-1.25) mg/dL Glucose (74-99) mg/dL POC Glucose (mg/dL) 131 H 155 H 151 H (75-99) mg/dL AST (17-59) U/L 05/15/17 05/15/17 05/15/17 Range/Units 10:29 11:10 12:24 WBC (3.8-10.6) k/uL RBC (4.30-5.90) m/uL Hgb (13.0-17.5) gm/dL Hct (39.0-53.0) % MCV (80.0-100.0) fL Neutrophils # (1.3-7.7) k/uL Monocytes # (0-1.0) k/uL Sodium (137-145) mmol/L Carbon Dioxide (22-30) mmol/L BUN (9-20) mg/dL Creatinine (0.66-1.25) mg/dL Glucose (74-99) mg/dL POC Glucose (mg/dL) 137 H 129 H 184 H (75-99) mg/dL AST (17-59) U/L 05/15/17 05/15/17 Range/Units 12:35 14:14 WBC (3.8-10.6) k/uL RBC (4.30-5.90) m/uL Hgb (13.0-17.5) gm/dL Hct (39.0-53.0) % MCV (80.0-100.0) fL Neutrophils # (1.3-7.7) k/uL Monocytes # (0-1.0) k/uL Sodium 150 H (137-145) mmol/L Carbon Dioxide (22-30) mmol/L BUN 126 H* (9-20) mg/dL Creatinine 3.17 H (0.66-1.25) mg/dL Glucose 178 H (74-99) mg/dL POC Glucose (mg/dL) 176 H (75-99) mg/dL AST (17-59) U/L Microbiology - Last 24 Hours (Table) 05/09/17 09:12 Blood Culture - Final Blood No Growth after 144 hours 05/12/17 21:20 Gram Stain - Final Sputum Sputum Culture - Final Kelly albicans 05/12/17 21:20 Blood Culture - Preliminary Blood No Growth after 48 hours 05/13/17 00:01 Urine Culture - Final Urine,Catheterized Assessment and Plan (1) Cardiopulmonary arrest with successful resuscitation Current Visit: Yes Status: Acute Code(s): I46.9 - CARDIAC ARREST, CAUSE UNSPECIFIED SNOMED Code(s): 262615216 (2) Anoxic encephalopathy Current Visit: Yes Status: Acute Code(s): G93.1 - ANOXIC BRAIN DAMAGE, NOT ELSEWHERE CLASSIFIED SNOMED Code(s): 433158052 (3) History of right-sided carotid endarterectomy Current Visit: Yes Status: Acute Code(s): Z98.890 - OTHER SPECIFIED POSTPROCEDURAL STATES SNOMED Code(s): 925389716 (4) Diabetes mellitus type 2 in obese Current Visit: Yes Status: Chronic Code(s): E11.69 - TYPE 2 DIABETES MELLITUS WITH OTHER SPECIFIED COMPLICATION; E66.9 - OBESITY, UNSPECIFIED SNOMED Code(s): 87708744 (5) Paroxysmal atrial fibrillation Current Visit: Yes Status: Chronic Code(s): I48.0 - PAROXYSMAL ATRIAL FIBRILLATION SNOMED Code(s): 956459851 Plan: This patient is a 76-year-old male who underwent a right carotid endarterectomy last week. 2 days after his surgery he suffered an acute [place] in progress. He was extubated yesterday and is showing improvement in his overall mental status. He is able to answer questions today and is much more awake and alert. He was noted to have some left-sided weakness yesterday and for this reason was sent for a computed tomography scan of the brain. CAT scan of the brain revealed evidence of a subacute lacunar infarct in the right internal capsule. This finding suggests he has suffered an acute stroke producing left-sided hemiparesis. Patient was seen today by Dr. Ferguson and he is aware of the CAT scan findings. We have increased his aspirin to a full adult aspirin 325 mg daily. He will require aggressive PTOT and speech therapy during this admission. We will continue to follow his progress closely. His overall prognosis remains guarded. Case was discussed at length today with the patient' s at bedside. She was updated on his CAT scan results from yesterday. She is aware of his guarded condition. We will continue to monitor his progress closely in the intensive care unit.
[2017-05-15 16:31] LABS: Glucose,Whole Blood 133 mg/dL (75-99)
[2017-05-15 18:23] LABS: Glucose,Whole Blood 203 mg/dL (75-99)
[2017-05-15 20:35] LABS: Glucose,Whole Blood 188 mg/dL (75-99)
[2017-05-15] MEDS: COLCHICINE 0.6 MG TAB PO SCH ×2 (20:35→21:42)
[2017-05-15 22:00] LABS: Glucose,Whole Blood 162 mg/dL (75-99)
[2017-05-16 00:06] LABS: Potassium 3.4 mmol/L (3.5-5.1)
[2017-05-16 00:09] LABS: Glucose,Whole Blood 123 mg/dL (75-99)
[2017-05-16] MEDS: IPRATROPIUM-ALBUTEROL 3 ML NEB INHALATION SCH ×7 (00:46→23:59)
[2017-05-16] MEDS: POTASSIUM CHLORIDE 20 MEQ in SODIUM CHLORIDE 0.9% 100 ML IV SCH ×3 (01:11→07:19)
[2017-05-16 01:17] LABS: Glucose,Whole Blood 138 mg/dL (75-99)
[2017-05-16 02:09] LABS: Glucose,Whole Blood 168 mg/dL (75-99)
[2017-05-16 03:20] LABS: Glucose,Whole Blood 156 mg/dL (75-99)
[2017-05-16 04:56] LABS: Glucose,Whole Blood 153 mg/dL (75-99)
[2017-05-16 05:57] LABS: Basophils % (A) 0 %; Eosinophils # (A) 0.8 k/uL (0-0.7); Eosinophils % (A) 5 %; HCT 30.7 % (39.0-53.0); HGB 9.6 gm/dL (13.0-17.5); Hypochromasia Slight; Lymphocytes # (A) 1.5 k/uL (1.0-4.8); Lymphocytes % (A) 10 %; MCH 32.8 pg (25.0-35.0); MCHC 31.2 g/dL (31.0-37.0); MCV 105.1 fL (80.0-100.0); Macrocytosis Moderate; Monocytes % (A) 7 %; Neutrophils # (A) 11.5 k/uL (1.3-7.7); Neutrophils % (A) 77 %; Platelet Count 395 k/uL (150-450); RBC 2.92 m/uL (4.30-5.90); RDW 14.5 % (11.5-15.5)
[2017-05-16 06:07] LABS: Albumin 3.5 g/dL (3.5-5.0); Potassium 3.7 mmol/L (3.5-5.1); Total Bilirubin 0.8 mg/dL (0.2-1.3); Total Protein 6.7 g/dL (6.3-8.2)
[2017-05-16 06:43] LABS: Glucose,Whole Blood 126 mg/dL (75-99)
[2017-05-16] MEDS: PIPERACILLIN-TAZOBACTAM 3.375 GM in DEXTROSE/WATER 1 50ML.BAG IVPB SCH ×2 (07:18→18:37)
--- NOTE | 2017-05-16 07:27 | XR ---
EXAMINATION TYPE: XR chest 1V confirm line [facility] DATE OF EXAM: 05/16/2017 CLINICAL HISTORY: Difficulty breathing progress study. TECHNIQUE: Single AP portable upright view of the chest is obtained. COMPARISON: Chest x-ray from one day earlier and older studies. FINDINGS: Cardiac silhouette size is stable and mildly enlarged with atherosclerotic thoracic aorta. No new suspicious focal airspace opacity, pleural effusion, or pneumothorax is seen bilaterally. Mul tilevel spurring in thoracic spine is present. IMPRESSION: Overall stable findings, no suspicious focal infiltrate currently.
[2017-05-16] MEDS: INSULIN REGULAR 100 UNIT in SODIUM CHLORIDE 0.9% 100 ML IV SCH (08:05)
[2017-05-16 08:17] LABS: Glucose,Whole Blood 153 mg/dL (75-99)
[2017-05-16] MEDS: ASPIRIN 325 MG TAB PO SCH (08:23)
[2017-05-16] MEDS: COLCHICINE 0.6 MG TAB PO SCH (08:23)
[2017-05-16] MEDS: SENNOSIDES-DOCUSATE SODIUM 1 EACH TAB PO SCH ×2 (08:24→20:37)
[2017-05-16] MEDS: DEXTROSE 5% IN WATER 1,000 ML IV SCH ×2 (08:24→15:49)
[2017-05-16] MEDS: PANTOPRAZOLE 40 MG/10 ML VIAL IVP SCH ×2 (08:24→20:37)
[2017-05-16] MEDS: CARVEDILOL 12.5 MG TAB PO SCH ×2 (08:24→18:36)
--- NOTE | 2017-05-16 08:49 | P.PN ---
Subjective Progress Note Date: 05/16/17 Principal diagnosis: Status post cardiopulmonary arrest Seen and examined for the follow-up of acute kidney injury status post cardiac arrest. Currently extubated. Wearing Boothe catheter making good amount of urine. Family at bedside. Objective - Vital Signs Vital signs: Vital Signs Temp 97.8 F 05/16/17 08:00 Pulse 58 L 05/16/17 08:15 Resp 16 05/16/17 08:00 BP 113/53 05/15/17 05:00 Pulse Ox 97 05/16/17 08:00 Intake & Output 05/15/17 05/16/17 05/16/17 18:59 06:59 18:59 Intake Total 819.109 864.40 100 Output Total 1455 1140 220 Balance -635.891 -275.60 -120 Weight 130.1 kg 133 kg Intake: IV 750 800 100 Dextrose 5% in Water 1, 600 800 100 000 ml @ 50 mls/hr IV . Q20H [facility] Rx#:[id number] Dextrose 5% in Water 500 150 ml @ 50 mls/hr IV .Q10H [facility] Rx#:[id number] Intake, IV Titration 69.109 64.40 Amount Insulin Regular 100 unit 69.109 64.40 In Sodium Chloride 0.9% 100 ml @ Per Protocol IV .Q0M [facility] Rx#:[id number] Output: Urine 1455 1140 220 Other: Voiding Method Indwelling Catheter Indwelling Catheter ABP, PAP, CO, CI - Last Documented Arterial Blood Pressure 146/47 - Exam General lying in bed no acute distress Cardiovascular S1-S2 heard Lungs clear to auscultation Abdomen distended bowel sounds present Musculoskeletal trace edema - Labs CBC & Chem 7: 05/16/17 04:55 05/16/17 04:55 Labs: Abnormal Lab Results - Last 24 Hours (Table) 05/15/17 05/15/17 05/15/17 Range/Units 10:29 11:10 12:24 WBC (3.8-10.6) k/uL RBC (4.30-5.90) m/uL Hgb (13.0-17.5) gm/dL Hct (39.0-53.0) % MCV (80.0-100.0) fL Neutrophils # (1.3-7.7) k/uL Eosinophils # (0-0.7) k/uL Sodium (137-145) mmol/L Potassium (3.5-5.1) mmol/L BUN (9-20) mg/dL Creatinine (0.66-1.25) mg/dL Glucose (74-99) mg/dL POC Glucose (mg/dL) 137 H 129 H 184 H (75-99) mg/dL 05/15/17 05/15/17 05/15/17 Range/Units 12:35 14:14 16:27 WBC (3.8-10.6) k/uL RBC (4.30-5.90) m/uL Hgb (13.0-17.5) gm/dL Hct (39.0-53.0) % MCV (80.0-100.0) fL Neutrophils # (1.3-7.7) k/uL Eosinophils # (0-0.7) k/uL Sodium 150 H (137-145) mmol/L Potassium (3.5-5.1) mmol/L BUN 126 H* (9-20) mg/dL Creatinine 3.17 H (0.66-1.25) mg/dL Glucose 178 H (74-99) mg/dL POC Glucose (mg/dL) 176 H 133 H (75-99) mg/dL 05/15/17 05/15/17 05/15/17 Range/Units 18:22 20:33 21:59 WBC (3.8-10.6) k/uL RBC (4.30-5.90) m/uL Hgb (13.0-17.5) gm/dL Hct (39.0-53.0) % MCV (80.0-100.0) fL Neutrophils # (1.3-7.7) k/uL Eosinophils # (0-0.7) k/uL Sodium (137-145) mmol/L Potassium (3.5-5.1) mmol/L BUN (9-20) mg/dL Creatinine (0.66-1.25) mg/dL Glucose (74-99) mg/dL POC Glucose (mg/dL) 203 H 188 H 162 H (75-99) mg/dL 05/15/17 05/15/17 05/16/17 Range/Units 22:40 22:40 00:07 WBC (3.8-10.6) k/uL RBC (4.30-5.90) m/uL Hgb (13.0-17.5) gm/dL Hct (39.0-53.0) % MCV (80.0-100.0) fL Neutrophils # (1.3-7.7) k/uL Eosinophils # (0-0.7) k/uL Sodium 146 H (137-145) mmol/L Potassium 3.4 L 3.4 L (3.5-5.1) mmol/L BUN 134 H* (9-20) mg/dL Creatinine 3.10 H (0.66-1.25) mg/dL Glucose 148 H (74-99) mg/dL POC Glucose (mg/dL) 123 H (75-99) mg/dL 05/16/17 05/16/17 05/16/17 Range/Units 01:14 02:06 03:17 WBC (3.8-10.6) k/uL RBC (4.30-5.90) m/uL Hgb (13.0-17.5) gm/dL Hct (39.0-53.0) % MCV (80.0-100.0) fL Neutrophils # (1.3-7.7) k/uL Eosinophils # (0-0.7) k/uL Sodium (137-145) mmol/L Potassium (3.5-5.1) mmol/L BUN (9-20) mg/dL Creatinine (0.66-1.25) mg/dL Glucose (74-99) mg/dL POC Glucose (mg/dL) 138 H 168 H 156 H (75-99) mg/dL 05/16/17 05/16/17 05/16/17 Range/Units 04:53 04:55 04:55 WBC 15.0 H (3.8-10.6) k/uL RBC 2.92 L (4.30-5.90) m/uL Hgb 9.6 L (13.0-17.5) gm/dL Hct 30.7 L (39.0-53.0) % MCV 105.1 H (80.0-100.0) fL Neutrophils # 11.5 H (1.3-7.7) k/uL Eosinophils # 0.8 H (0-0.7) k/uL Sodium 147 H (137-145) mmol/L Potassium (3.5-5.1) mmol/L BUN 130 H* (9-20) mg/dL Creatinine 3.00 H (0.66-1.25) mg/dL Glucose 144 H (74-99) mg/dL POC Glucose (mg/dL) 153 H (75-99) mg/dL 05/16/17 05/16/17 Range/Units 06:41 08:04 WBC (3.8-10.6) k/uL RBC (4.30-5.90) m/uL Hgb (13.0-17.5) gm/dL Hct (39.0-53.0) % MCV (80.0-100.0) fL Neutrophils # (1.3-7.7) k/uL Eosinophils # (0-0.7) k/uL Sodium (137-145) mmol/L Potassium (3.5-5.1) mmol/L BUN (9-20) mg/dL Creatinine (0.66-1.25) mg/dL Glucose (74-99) mg/dL POC Glucose (mg/dL) 126 H 153 H (75-99) mg/dL Microbiology - Last 24 Hours (Table) 05/12/17 21:20 Blood Culture - Preliminary Blood No Growth after 72 hours 05/09/17 09:12 Blood Culture - Final Blood No Growth after 144 hours 05/12/17 21:20 Gram Stain - Final Sputum Sputum Culture - Final Kelly albicans Assessment and Plan Assessment: Impression: #1 nonoliguric acute kidney injury secondary to ischemic ATN from cardiopulmonary arrest. #2 hyponatremia secondary to decreased oral intake and diuretics #3 status post VDR F #4 status post cardiopulmonary arrest following carotid endarterectomy #5 cardiomyopathy with the EF of 20%. #6 hypokalemia with metabolic alkalosis from diuretics Recommendations: #1 continue with D5 water at 50 ML's an hour. Monitor closely for volume overload. #2 replace potassium. #3 strict ins and outs. #4 avoid nephrotoxic agents and hypotensive episodes.
[2017-05-16] MEDS: MORPHINE SULFATE 4 MG/ML SYRINGE IVP PRN ×3 (09:48→20:39)
--- NOTE | 2017-05-16 09:51 | P.PN ---
<Fabiana Gee - Last Filed: 05/16/17 09:38> Subjective Progress Note Date: 05/16/17 Principal diagnosis: Carotid stenosis, status post right carotid endarterectomy. This is a 76-year-old male patient with status post carotid endarterectomy on the right and the patient is postop day #6. Note that the patient went into acute cardio pulmonary arrest postop day #2 and he was done with initially acute respiratory arrest and subsequent cardiac arrest for a total of 30 minutes during which the patient received a total of 10 mg of epinephrine and 2 A of bicarb and subsequently the patient was intubated and placed on mechanical ventilator and since then the patient has remained intubated. On today's evaluation of 05/11/2017, the patient is sedated on Diprivan at 45 mg per KG pigmented. The patient is heavily sedated. He occasionally bites the tube and he withdraws to some stimulation to his lower extremities bilaterally. Hemodynamically, the patient is on no pressors. The patient is still in pulmonary edema and his chest x-ray and the patient is currently on Lasix drip at 10 mg an hour. Urine output is more than 100 mL an hour daily basis. The urine is somewhat bloody as the patient had some bleeding related to Pradaxa intake and Pradaxa is currently off. The patient is on assist- control mode of ventilation at the rate of 26, tidal volume 500, FiO2 of 50% and a PEEP of 15. The blood gases from this morning showed a pH of 7.49, with a pCO2 of 39 and pO2 of 113. The chest x-ray still showing pulmonary edema. Minimal amount of bloody secretions from his orotracheal tube. He is synchronous with the mechanical ventilator. Breath sounds are equal and symmetrical bilaterally. Echocardiogram showed an ejection fraction of less than 20%. The patient is still in acute kidney injury. Creatinine is up to 3.3 yet he is nonoliguric at this stage and nephrology is on the case. We are going to continue the Lasix drip at the same rate for now. The patient is being controlled with an insulin drip in regards to his blood sugar. The patient has not been given any sedation holiday since his cardiac/pulmonary arrest. The patient is on tube feeds and receding vital high protein at the rate of 60 mL an hour. Otherwise, no other significant events overnight. The CAT scan of the brain that was obtained on 18 showed no acute abnormalities are then chronic cerebral atrophy. The patient has a hematoma over the right neck area which is currently stable and soft and the incision site is clean. On 05/13/2079 I'm seeing this patient for a follow-up in the patient was given a sedation holiday and he is opening up his eyes. He is not following any simple commands yet. No preferential gaze. No nystagmus. No agitation. He is doing some limited activity as far as movement in his upper extremities. He has a decent cough. The patient has no seizure activity. Incision over the right neck is clean and dry and the ecchymosis and hematoma over the right neck area soft and has not progressed. He is afebrile. He is on a mechanical ventilator. The PEEP has been drop down to 10 with an FiO2 of 50% and the patient remains on a tidal volume of 500 with a rate of 26. Chest x-ray shows some improvement in the volume status. The blood gases from today showed a pH of 7.49 with a pCO2 of 40 and pO2 of 74. The patient is on IV Lasix 60 mg every 8 hours. He is getting into a negative fluid balance. Hematuria is also improving. Otherwise the patient is producing adequate amount of urine output. Creatinine today is at 3.1 which is stable and not worse compared to yesterday. He is afebrile. He is tolerating his tube feeds. He was given a Dulcolax suppository. He is on no pressors. No other significant events overnight. Family is at the bedside. On 05/13/2017 I'm seeing this patient for a follow-up. The patient remains intubated on a mechanical ventilator. Note that the patient was taken off sedation throughout the day yesterday. He was waking up and he was opening his eyes spontaneously. He was not following commands initially. Subsequently he became more responsive and he follows some simple commands and today's able to wiggle his toes and move his fingers upon demand. He is calm and comfortable he is not agitated. Earlier this morning while being positioned in bed the patient became a bit tachycardic and tachypneic and agitated. He had to be placed back on Diprivan for a brief period of time and currently is back to being off sedation. He is still on a mechanical ventilator. I managed to drop the PEEP down to 8 and this morning he is an assist-control mode at the rate of 26, tidal volume of 500 with a PEEP of 8 and FiO2 of 40%. Blood gases showed a pH of 7.55 with a pCO2 of 39 and pO2 of 80. The chest x-ray from today still showing some but the pulmonary vessel congestion/edema. Nevertheless, the patient was diuresed adequately with accommodation of Lasix and Zaroxolyn the patient has been in a negative fluid balance of at least 5-6 L over the past 24 hours. This has resulted in to some metabolic alkalosis and the pH is up to 7.5 and a serum bicarb is up to 34. No hematuria this point. He is tolerating his tube feeds. No fever or chills. The incision site over the right neck area dry clean and intact. Blood pressure is fluctuating at times it's quite high requiring hydralazine pushes for blood pressure control. Cardiac rhythm is still sinus. He is off antibiotics for now. On 05/14/2017, I'm seeing this patient for a follow-up. The patient is being given a sedation holiday. He stayed off sedation throughout the day yesterday and he had to be placed on sedation again this morning. He is only on 20 mics of the prevent. He was awake and he was following commands yesterday. This morning, he is still on a mechanical ventilator. His PEEP has been drop down to 5. The patient is assist-control mode with a tidal volume 500, rate of 26 and the FiO2 down to 40%. Chest x-ray findings are stable. The patient was diuresed aggressively with IV Lasix and Zaroxolyn. Her net fluid balance over the past 24 hours is -3.6 L in the prior to that was -6.3 L. The swelling in the upper and lower occiput is improved and the patient's volume status also improved. The patient has a mild degree of metabolic alkalosis with a pH of 7.52 with a pCO2 of 42 and pO2 of 65 on today's blood gases. The renal function is still impaired. BN is up 214. Creatinine is up to 3.2. Lasix dose was cut down to 40 mg twice a day. Nephrology is on the case. No other significant events overnight. The patient remains in a normal sinus rhythm. The patient is off anticoagulants. The urine output is still somewhat bloody. There are no clots. The patient is seen again today in 05/15/2017 in follow-up in the intensive care unit. He was successfully extubated yesterday. He was placed on BiPAP 20/ 10 at 40% [id number] the evening.this morning he is awake and alert and following simple commands.computed tomography scan of the brain reveals old small right posterior frontal lobe cortical infarct. There is evidence of a subacute lacunar infarct in the right internal capsule that appears new compared to recent exam. His left lower extremity is quite weak his left upper extremity slightly weaker than the right. He is answering questions appropriately. He was removed from the BiPAPand placed on 40% Ventimask. He is maintaining O2 saturations in the 90s. Chest x-ray reveals improvement in the pulmonary vascular congestion. There is trace left pleural effusion. He remains on bronchodilators and Zosyn. White count 15.2. Hemoglobin 9.9.creatinine 3.30 BUN 132. He is receiving free water. He remains in a negative balance. He remains in sinus rhythm somewhat bradycardic. His family is at the bedside. The patient is seen again today 05/16/2017 in follow-up in the intensive care unit. He is awake and alert and in no acute distress. He denies any shortness of breath, cough or congestion. He is maintaining good O2 saturations in the upper 90s on 4 L/m per nasal cannula. He remains on Zosyn. He is currently in sinus bradycardia with occasional PVC. Blood pressure stable. He remains quite weak but is able to move all 4 extremities. Left side weaker than the right. White count 15.0. Hemoglobin 9.6. Sodium 147. BUN 130. Creatinine 3.00. Nephrology is on the case. Diamox was discontinued. He remains on D5W at 50 MLS per hour. Chest x-ray continues to show mild cardiomegaly. There is no new focal airspace opacities effusions or pneumothorax. Objective - Vital Signs Vital signs: Vital Signs Temp 97.8 F 05/16/17 08:00 Pulse 58 L 05/16/17 08:15 Resp 16 05/16/17 08:00 BP 113/53 05/15/17 05:00 Pulse Ox 97 05/16/17 08:00 Intake & Output 03/11/2405/16/17 05/16/17 18:59 06:59 18:59 Intake Total 819.109 864.40 100 Output Total 1455 1140 220 Balance -635.891 -275.60 -120 Weight 130.1 kg 133 kg Intake: IV 750 800 100 Dextrose 5% in Water 1, 600 800 100 000 ml @ 50 mls/hr IV . Q20H [facility] Rx#:[id number] Dextrose 5% in Water 500 150 ml @ 50 mls/hr IV .Q10H [facility] Rx#:[id number] Intake, IV Titration 69.109 64.40 Amount Insulin Regular 100 unit 69.109 64.40 In Sodium Chloride 0.9% 100 ml @ Per Protocol IV .Q0M [facility] Rx#:[id number] Output: Urine 1455 1140 220 Other: Voiding Method Indwelling Catheter Indwelling Catheter ABP, PAP, CO, CI - Last Documented Arterial Blood Pressure 146/47 - Exam Patient is awake and following some simple commands. He was maintained on BiPAP last night currently on 4 L/m per nasal cannula. The patient is laying comfortably in bed and he is morbidly obese. HEENT examination is grossly unremarkable. Mucous membranes are moist. No oral lesions. A hematoma can be visualized all over the neck area, Mainly the right neck area and the incision site is clean. The hematoma itself is soft and non-enlarging at this point. Neck supple. Full range of motion. No adenopathy thyromegaly or neck vein distention. There is tremendous bruising and ecchymoses about the neck from the recent surgery. It's more right than left-sided. There hematoma is stable for now. Cardiovascular examination reveals regular rhythm rate. S1-S2 normal. No S3 or S4. No discernible murmur noted. Heart sounds are distant. Lungs reveal diffuse bilateral rhonchi. Breath sounds are diminished. Some bibasilar crackles. No wheezes. Abdomen soft bowel sounds are heard. No masses or tenderness. Extremities are intact. No cyanosis clubbing or edema. Skin is without rash or lesion. Neurologic the patient has no focal neurological deficit. The patient is moving all 4 extremities. Left side weaker than right. No facial asymmetry. No nystagmus. - Labs CBC & Chem 7: 05/16/17 04:55 05/16/17 04:55 Labs: Abnormal Lab Results - Last 24 Hours (Table) 05/15/17 05/15/17 05/15/17 Range/Units 10:29 11:10 12:24 WBC (3.8-10.6) k/uL RBC (4.30-5.90) m/uL Hgb (13.0-17.5) gm/dL Hct (39.0-53.0) % MCV (80.0-100.0) fL Neutrophils # (1.3-7.7) k/uL Eosinophils # (0-0.7) k/uL Sodium (137-145) mmol/L Potassium (3.5-5.1) mmol/L BUN (9-20) mg/dL Creatinine (0.66-1.25) mg/dL Glucose (74-99) mg/dL POC Glucose (mg/dL) 137 H 129 H 184 H (75-99) mg/dL Magnesium (1.6-2.3) mg/dL 05/15/17 05/15/17 05/15/17 Range/Units 12:35 14:14 16:27 WBC (3.8-10.6) k/uL RBC (4.30-5.90) m/uL Hgb (13.0-17.5) gm/dL Hct (39.0-53.0) % MCV (80.0-100.0) fL Neutrophils # (1.3-7.7) k/uL Eosinophils # (0-0.7) k/uL Sodium 150 H (137-145) mmol/L Potassium (3.5-5.1) mmol/L BUN 126 H* (9-20) mg/dL Creatinine 3.17 H (0.66-1.25) mg/dL Glucose 178 H (74-99) mg/dL POC Glucose (mg/dL) 176 H 133 H (75-99) mg/dL Magnesium (1.6-2.3) mg/dL 05/15/17 05/15/17 05/15/17 Range/Units 18:22 20:33 21:59 WBC (3.8-10.6) k/uL RBC (4.30-5.90) m/uL Hgb (13.0-17.5) gm/dL Hct (39.0-53.0) % MCV (80.0-100.0) fL Neutrophils # (1.3-7.7) k/uL Eosinophils # (0-0.7) k/uL Sodium (137-145) mmol/L Potassium (3.5-5.1) mmol/L BUN (9-20) mg/dL Creatinine (0.66-1.25) mg/dL Glucose (74-99) mg/dL POC Glucose (mg/dL) 203 H 188 H 162 H (75-99) mg/dL Magnesium (1.6-2.3) mg/dL 05/15/17 05/15/17 05/16/17 Range/Units 22:40 22:40 00:07 WBC (3.8-10.6) k/uL RBC (4.30-5.90) m/uL Hgb (13.0-17.5) gm/dL Hct (39.0-53.0) % MCV (80.0-100.0) fL Neutrophils # (1.3-7.7) k/uL Eosinophils # (0-0.7) k/uL Sodium 146 H (137-145) mmol/L Potassium 3.4 L 3.4 L (3.5-5.1) mmol/L BUN 134 H* (9-20) mg/dL Creatinine 3.10 H (0.66-1.25) mg/dL Glucose 148 H (74-99) mg/dL POC Glucose (mg/dL) 123 H (75-99) mg/dL Magnesium (1.6-2.3) mg/dL 05/16/17 05/16/17 05/16/17 Range/Units 01:14 02:06 03:17 WBC (3.8-10.6) k/uL RBC (4.30-5.90) m/uL Hgb (13.0-17.5) gm/dL Hct (39.0-53.0) % MCV (80.0-100.0) fL Neutrophils # (1.3-7.7) k/uL Eosinophils # (0-0.7) k/uL Sodium (137-145) mmol/L Potassium (3.5-5.1) mmol/L BUN (9-20) mg/dL Creatinine (0.66-1.25) mg/dL Glucose (74-99) mg/dL POC Glucose (mg/dL) 138 H 168 H 156 H (75-99) mg/dL Magnesium (1.6-2.3) mg/dL 05/16/17 05/16/17 05/16/17 Range/Units 04:53 04:55 04:55 WBC 15.0 H (3.8-10.6) k/uL RBC 2.92 L (4.30-5.90) m/uL Hgb 9.6 L (13.0-17.5) gm/dL Hct 30.7 L (39.0-53.0) % MCV 105.1 H (80.0-100.0) fL Neutrophils # 11.5 H (1.3-7.7) k/uL Eosinophils # 0.8 H (0-0.7) k/uL Sodium 147 H (137-145) mmol/L Potassium (3.5-5.1) mmol/L BUN 130 H* (9-20) mg/dL Creatinine 3.00 H (0.66-1.25) mg/dL Glucose 144 H (74-99) mg/dL POC Glucose (mg/dL) 153 H (75-99) mg/dL Magnesium (1.6-2.3) mg/dL 05/16/17 05/16/17 05/16/17 Range/Units 04:55 06:41 08:04 WBC (3.8-10.6) k/uL RBC (4.30-5.90) m/uL Hgb (13.0-17.5) gm/dL Hct (39.0-53.0) % MCV (80.0-100.0) fL Neutrophils # (1.3-7.7) k/uL Eosinophils # (0-0.7) k/uL Sodium (137-145) mmol/L Potassium (3.5-5.1) mmol/L BUN (9-20) mg/dL Creatinine (0.66-1.25) mg/dL Glucose (74-99) mg/dL POC Glucose (mg/dL) 126 H 153 H (75-99) mg/dL Magnesium 3.0 H (1.6-2.3) mg/dL Microbiology - Last 24 Hours (Table) 05/12/17 21:20 Blood Culture - Preliminary Blood No Growth after 72 hours 05/09/17 09:12 Blood Culture - Final Blood No Growth after 144 hours 05/12/17 21:20 Gram Stain - Final Sputum Sputum Culture - Final Kelly albicans Assessment and Plan Plan: Assessment 1 right carotid endarterectomy and the patient is postop day #11 2 acute cardio pulmonary arrest. This is most like an acute pulmonary edema for by cardiac arrest and the patient had a downtime of at least 25 minutes. He received a total of 10mgrams epinephrine and bicarb requiring intubated on a mechanical ventilator. Successfully extubated 05/14/2017. He is alternating between BiPAP and 4 L/m per nasal cannula 3 CHF with an ejection fraction of less than 20% 4 suspected acute non-STEMI with ST segment depression and some mild troponin leak that peaked at 2.8 with underlying history of coronary artery disease 5 acute kidney injury, patient is nonoliguric. Urine output is improved and the patient is a negative fluid balance on a combination of Lasix and Zaroxolyn. 6 acute respiratory failure secondary to above, chest x-ray from today continues to show improvement in the volume status with some residual interstitial edema. 7 diabetes mellitus 8 possible hypoxic/anoxic encephalopathy suspected. computed tomography scan of the brain 05/14/2017 reveals an old small right posterior frontal lobe cortical infarct. There is evidence of a subacute lacunar infarct in the right internal capsule. The patient is awake and alert and following commands. He does have some residual left-sided weakness. 9 obstructive sleep apnea and on BiPAP on outpatient basis at a pressure of 21/ 17 10 hypertension, fluctuating blood pressure 11 hyperlipidemia 12 morbid obesity 13 gout 14 hematoma over the neck especially over the right anterior neck area with a clean incision, postsurgical To get further by the intake of anticoagulants 15 mild hematuria, improving Plan: The patient was seen and evaluated by Dr. Kimball. His chest x-ray and labs were all reviewed. He is awake and alert and following commands. He does have some left-sided weakness more so on the left lower extremity. Computed tomography scan does reveal subacute stroke. Neurology is on the case. We will allow sips of water today. We will get him up in a chair. We will monitor him here in the intensive care unit throughout the day. Possible transfer to select care unit later this evening. I, the cosigning physician, performed a history & physical examination of the patient. Lungs sounds have crackles in the bilateral posterior basesr. Maintaining good O2 saturations in the 90s on 4 L/m per nasal cannula. I discussed the assessment and plan of care with my nurse practitioner, Fabiana Gee. I attest to the above note as dictated by her. <Jelena Kimball - Last Filed: 05/16/17 17:23> Objective - Vital Signs Vital signs: Vital Signs Temp 97.5 F L 05/16/17 12:00 Pulse 54 L 05/16/17 15:59 Resp 19 05/16/17 15:00 BP 113/53 05/15/17 05:00 Pulse Ox 100 05/16/17 15:44 Intake & Output 05/15/17 05/16/17 05/16/17 18:59 06:59 18:59 Intake Total 819.109 864.40 571.566 Output Total 1455 1140 1245 Balance -635.891 -275.60 -673.434 Weight 130.1 kg 133 kg Intake: IV 750 800 500 Dextrose 5% in Water 1, 600 800 450 000 ml @ 50 mls/hr IV . Q20H [facility] Rx#:[id number] Dextrose 5% in Water 500 150 ml @ 50 mls/hr IV .Q10H [facility] Rx#:[id number] KVO 50 Intake, IV Titration 69.109 64.40 21.566 Amount Insulin Regular 100 unit 69.109 64.40 21.566 In Sodium Chloride 0.9% 100 ml @ Per Protocol IV .Q0M [facility] Rx#:[id number] Lipid 50 Dextrose 5% in Water 1, 50 000 ml @ 50 mls/hr IV . Q20H [facility] Rx#:[id number] Output: Urine 1455 1140 1245 Other: Voiding Method Indwelling Catheter Indwelling Catheter Indwelling Catheter ABP, PAP, CO, CI - Last Documented Arterial Blood Pressure 141/50 - Labs CBC & Chem 7: 05/16/17 04:55 05/16/17 04:55 Labs: Abnormal Lab Results - Last 24 Hours (Table) 05/15/17 05/15/17 05/15/17 Range/Units 18:22 20:33 21:59 WBC (3.8-10.6) k/uL RBC (4.30-5.90) m/uL Hgb (13.0-17.5) gm/dL Hct (39.0-53.0) % MCV (80.0-100.0) fL Neutrophils # (1.3-7.7) k/uL Eosinophils # (0-0.7) k/uL Sodium (137-145) mmol/L Potassium (3.5-5.1) mmol/L BUN (9-20) mg/dL Creatinine (0.66-1.25) mg/dL Glucose (74-99) mg/dL POC Glucose (mg/dL) 203 H 188 H 162 H (75-99) mg/dL Magnesium (1.6-2.3) mg/dL 05/15/17 05/15/17 05/16/17 Range/Units 22:40 22:40 00:07 WBC (3.8-10.6) k/uL RBC (4.30-5.90) m/uL Hgb (13.0-17.5) gm/dL Hct (39.0-53.0) % MCV (80.0-100.0) fL Neutrophils # (1.3-7.7) k/uL Eosinophils # (0-0.7) k/uL Sodium 146 H (137-145) mmol/L Potassium 3.4 L 3.4 L (3.5-5.1) mmol/L BUN 134 H* (9-20) mg/dL Creatinine 3.10 H (0.66-1.25) mg/dL Glucose 148 H (74-99) mg/dL POC Glucose (mg/dL) 123 H (75-99) mg/dL Magnesium (1.6-2.3) mg/dL 05/16/17 05/16/17 05/16/17 Range/Units 01:14 02:06 03:17 WBC (3.8-10.6) k/uL RBC (4.30-5.90) m/uL Hgb (13.0-17.5) gm/dL Hct (39.0-53.0) % MCV (80.0-100.0) fL Neutrophils # (1.3-7.7) k/uL Eosinophils # (0-0.7) k/uL Sodium (137-145) mmol/L Potassium (3.5-5.1) mmol/L BUN (9-20) mg/dL Creatinine (0.66-1.25) mg/dL Glucose (74-99) mg/dL POC Glucose (mg/dL) 138 H 168 H 156 H (75-99) mg/dL Magnesium (1.6-2.3) mg/dL 05/16/17 05/16/17 05/16/17 Range/Units 04:53 04:55 04:55 WBC 15.0 H (3.8-10.6) k/uL RBC 2.92 L (4.30-5.90) m/uL Hgb 9.6 L (13.0-17.5) gm/dL Hct 30.7 L (39.0-53.0) % MCV 105.1 H (80.0-100.0) fL Neutrophils # 11.5 H (1.3-7.7) k/uL Eosinophils # 0.8 H (0-0.7) k/uL Sodium 147 H (137-145) mmol/L Potassium (3.5-5.1) mmol/L BUN 130 H* (9-20) mg/dL Creatinine 3.00 H (0.66-1.25) mg/dL Glucose 144 H (74-99) mg/dL POC Glucose (mg/dL) 153 H (75-99) mg/dL Magnesium (1.6-2.3) mg/dL 05/16/17 05/16/17 05/16/17 Range/Units 04:55 06:41 08:04 WBC (3.8-10.6) k/uL RBC (4.30-5.90) m/uL Hgb (13.0-17.5) gm/dL Hct (39.0-53.0) % MCV (80.0-100.0) fL Neutrophils # (1.3-7.7) k/uL Eosinophils # (0-0.7) k/uL Sodium (137-145) mmol/L Potassium (3.5-5.1) mmol/L BUN (9-20) mg/dL Creatinine (0.66-1.25) mg/dL Glucose (74-99) mg/dL POC Glucose (mg/dL) 126 H 153 H (75-99) mg/dL Magnesium 3.0 H (1.6-2.3) mg/dL 05/16/17 05/16/17 05/16/17 Range/Units 09:57 11:07 12:13 WBC (3.8-10.6) k/uL RBC (4.30-5.90) m/uL Hgb (13.0-17.5) gm/dL Hct (39.0-53.0) % MCV (80.0-100.0) fL Neutrophils # (1.3-7.7) k/uL Eosinophils # (0-0.7) k/uL Sodium (137-145) mmol/L Potassium (3.5-5.1) mmol/L BUN (9-20) mg/dL Creatinine (0.66-1.25) mg/dL Glucose (74-99) mg/dL POC Glucose (mg/dL) 124 H 138 H 189 H (75-99) mg/dL Magnesium (1.6-2.3) mg/dL 05/16/17 05/16/17 Range/Units 14:13 15:50 WBC (3.8-10.6) k/uL RBC (4.30-5.90) m/uL Hgb (13.0-17.5) gm/dL Hct (39.0-53.0) % MCV (80.0-100.0) fL Neutrophils # (1.3-7.7) k/uL Eosinophils # (0-0.7) k/uL Sodium (137-145) mmol/L Potassium (3.5-5.1) mmol/L BUN (9-20) mg/dL Creatinine (0.66-1.25) mg/dL Glucose (74-99) mg/dL POC Glucose (mg/dL) 149 H 154 H (75-99) mg/dL Magnesium (1.6-2.3) mg/dL Microbiology - Last 24 Hours (Table) 05/12/17 21:20 Blood Culture - Preliminary Blood No Growth after 72 hours Assessment and Plan Plan: Visit joint evaluation that was done along with the nurse practitioner. Clinically the patient is improving. The patient is wide awake. The patient's hemodynamically stable. Continue IV fluids. Monitor renal function. Increase physical activity as tolerated. There is obvious signs of CVA as the patient's left side is weaker compared to the right. Family is aware. Neurologist on the case. We'll continue to follow.
[2017-05-16 09:59] LABS: Glucose,Whole Blood 124 mg/dL (75-99)
[2017-05-16 11:09] LABS: Glucose,Whole Blood 138 mg/dL (75-99)
--- NOTE | 2017-05-16 12:11 | P.PN ---
Subjective Progress Note Date: 05/16/17 Principal diagnosis: Hemodynamically severe right internal carotid artery stenosis. Previous medical history of hypertension, gout, hyperlipidemia, diabetes, insomnia, atrial fibrillation with ablation, coronary artery disease, obstructive sleep apnea with CPAP use. POD #10 elective right carotid endarterectomy with patch angioplasty. Postoperative hematoma present at surgical site, and expected outcome given CPR during resuscitation as well as long-standing history of anticoagulation. Status post cardiopulmonary arrest with resuscitation, suspect non-STEMI. Acute systolic heart failure with an ejection fraction less than 20%. Acute kidney injury likely secondary to cardiac arrest with 30 minute down time. Patient's currently laying in bed in no acute distress. Denies pain, shortness of breath. Patient is alert and oriented, does have left-sided weakness but is able to move all 4 extremities. Objective - Vital Signs Vital signs: Vital Signs Temp 97.8 F 05/16/17 08:00 Pulse 57 L 05/16/17 11:26 Resp 19 05/16/17 10:00 BP 113/53 05/15/17 05:00 Pulse Ox 95 05/16/17 10:00 Intake & Output 05/15/17 05/16/17 05/16/17 18:59 06:59 18:59 Intake Total 819.109 864.40 257.733 Output Total 1455 1140 620 Balance -635.891 -275.60 -362.267 Weight 130.1 kg 133 kg Intake: IV 750 800 250 Dextrose 5% in Water 1, 600 800 250 000 ml @ 50 mls/hr IV . Q20H [facility] Rx#:[id number] Dextrose 5% in Water 500 150 ml @ 50 mls/hr IV .Q10H [facility] Rx#:[id number] Intake, IV Titration 69.109 64.40 7.733 Amount Insulin Regular 100 unit 69.109 64.40 7.733 In Sodium Chloride 0.9% 100 ml @ Per Protocol IV .Q0M [facility] Rx#:[id number] Output: Urine 1455 1140 620 Other: Voiding Method Indwelling Catheter Indwelling Catheter Indwelling Catheter ABP, PAP, CO, CI - Last Documented Arterial Blood Pressure 154/47 - Constitutional General appearance: Present: cooperative, no acute distress, obese - Respiratory Details: Lungs sounds bilaterally with coarse breath sounds in bases. Respirations even , nonlabored. Currently on 4 L high flow nasal cannula with oxygen saturation 98%. - Cardiovascular Details: S1, S2 present. Slow regular rate and rhythm, sinus bradycardia on telemetry. Palpable peripheral pulses bilaterally. No edema present. No calf pain or tenderness noted. SCDs present. Left radial arterial line, right femoral triple-lumen central line present. - Gastrointestinal Gastrointestinal Comment(s): Abdomen soft, nontender, nondistended, round. Active bowel sounds 4 quadrants. Tolerating sips of liquids without choking. Last documented bowel movement May 12. - Genitourinary Genitourinary Comment(s): Boothe present draining clear, yellow urine. Output 60-125 mL per hour. - Integumentary Integumentary Comment(s): Skin is warm and dry with multiple areas of ecchymosis. Right anterior neck incision well approximated, hematoma present, no growth in size. - Neurologic Neurologic Comment(s): Patient is alert and oriented 3. Moves all 4 extremities to command, left- sided weakness present - Musculoskeletal Musculoskeletal: Present: left sided weakness - Psychiatric Psychiatric: Present: A&O x's 3, appropriate affect, intact judgment & insight - Allied health notes Allied health notes reviewed: nursing - Labs CBC & Chem 7: 05/16/17 04:55 05/16/17 04:55 Labs: Abnormal Lab Results - Last 24 Hours (Table) 05/15/17 05/15/17 05/15/17 Range/Units 12:24 12:35 14:14 WBC (3.8-10.6) k/uL RBC (4.30-5.90) m/uL Hgb (13.0-17.5) gm/dL Hct (39.0-53.0) % MCV (80.0-100.0) fL Neutrophils # (1.3-7.7) k/uL Eosinophils # (0-0.7) k/uL Sodium 150 H (137-145) mmol/L Potassium (3.5-5.1) mmol/L BUN 126 H* (9-20) mg/dL Creatinine 3.17 H (0.66-1.25) mg/dL Glucose 178 H (74-99) mg/dL POC Glucose (mg/dL) 184 H 176 H (75-99) mg/dL Magnesium (1.6-2.3) mg/dL 03/11/2405/15/17 05/15/17 Range/Units 16:27 18:22 20:33 WBC (3.8-10.6) k/uL RBC (4.30-5.90) m/uL Hgb (13.0-17.5) gm/dL Hct (39.0-53.0) % MCV (80.0-100.0) fL Neutrophils # (1.3-7.7) k/uL Eosinophils # (0-0.7) k/uL Sodium (137-145) mmol/L Potassium (3.5-5.1) mmol/L BUN (9-20) mg/dL Creatinine (0.66-1.25) mg/dL Glucose (74-99) mg/dL POC Glucose (mg/dL) 133 H 203 H 188 H (75-99) mg/dL Magnesium (1.6-2.3) mg/dL 05/15/17 05/15/17 05/15/17 Range/Units 21:59 22:40 22:40 WBC (3.8-10.6) k/uL RBC (4.30-5.90) m/uL Hgb (13.0-17.5) gm/dL Hct (39.0-53.0) % MCV (80.0-100.0) fL Neutrophils # (1.3-7.7) k/uL Eosinophils # (0-0.7) k/uL Sodium 146 H (137-145) mmol/L Potassium 3.4 L 3.4 L (3.5-5.1) mmol/L BUN 134 H* (9-20) mg/dL Creatinine 3.10 H (0.66-1.25) mg/dL Glucose 148 H (74-99) mg/dL POC Glucose (mg/dL) 162 H (75-99) mg/dL Magnesium (1.6-2.3) mg/dL 05/16/17 05/16/17 05/16/17 Range/Units 00:07 01:14 02:06 WBC (3.8-10.6) k/uL RBC (4.30-5.90) m/uL Hgb (13.0-17.5) gm/dL Hct (39.0-53.0) % MCV (80.0-100.0) fL Neutrophils # (1.3-7.7) k/uL Eosinophils # (0-0.7) k/uL Sodium (137-145) mmol/L Potassium (3.5-5.1) mmol/L BUN (9-20) mg/dL Creatinine (0.66-1.25) mg/dL Glucose (74-99) mg/dL POC Glucose (mg/dL) 123 H 138 H 168 H (75-99) mg/dL Magnesium (1.6-2.3) mg/dL 05/16/17 05/16/17 05/16/17 Range/Units 03:17 04:53 04:55 WBC 15.0 H (3.8-10.6) k/uL RBC 2.92 L (4.30-5.90) m/uL Hgb 9.6 L (13.0-17.5) gm/dL Hct 30.7 L (39.0-53.0) % MCV 105.1 H (80.0-100.0) fL Neutrophils # 11.5 H (1.3-7.7) k/uL Eosinophils # 0.8 H (0-0.7) k/uL Sodium (137-145) mmol/L Potassium (3.5-5.1) mmol/L BUN (9-20) mg/dL Creatinine (0.66-1.25) mg/dL Glucose (74-99) mg/dL POC Glucose (mg/dL) 156 H 153 H (75-99) mg/dL Magnesium (1.6-2.3) mg/dL 05/16/17 05/16/17 05/16/17 Range/Units 04:55 04:55 06:41 WBC (3.8-10.6) k/uL RBC (4.30-5.90) m/uL Hgb (13.0-17.5) gm/dL Hct (39.0-53.0) % MCV (80.0-100.0) fL Neutrophils # (1.3-7.7) k/uL Eosinophils # (0-0.7) k/uL Sodium 147 H (137-145) mmol/L Potassium (3.5-5.1) mmol/L BUN 130 H* (9-20) mg/dL Creatinine 3.00 H (0.66-1.25) mg/dL Glucose 144 H (74-99) mg/dL POC Glucose (mg/dL) 126 H (75-99) mg/dL Magnesium 3.0 H (1.6-2.3) mg/dL 05/16/17 05/16/17 05/16/17 Range/Units 08:04 09:57 11:07 WBC (3.8-10.6) k/uL RBC (4.30-5.90) m/uL Hgb (13.0-17.5) gm/dL Hct (39.0-53.0) % MCV (80.0-100.0) fL Neutrophils # (1.3-7.7) k/uL Eosinophils # (0-0.7) k/uL Sodium (137-145) mmol/L Potassium (3.5-5.1) mmol/L BUN (9-20) mg/dL Creatinine (0.66-1.25) mg/dL Glucose (74-99) mg/dL POC Glucose (mg/dL) 153 H 124 H 138 H (75-99) mg/dL Magnesium (1.6-2.3) mg/dL Microbiology - Last 24 Hours (Table) 05/12/17 21:20 Blood Culture - Preliminary Blood No Growth after 72 hours 05/09/17 09:12 Blood Culture - Final Blood No Growth after 144 hours 05/12/17 21:20 Gram Stain - Final Sputum Sputum Culture - Final Kelly albicans - Imaging and Cardiology Chest x-ray: report reviewed, image reviewed Assessment and Plan (1) Cardiopulmonary arrest with successful resuscitation Current Visit: Yes Status: Acute Code(s): I46.9 - CARDIAC ARREST, CAUSE UNSPECIFIED SNOMED Code(s): 807797244 (2) Diabetes mellitus type 2 in obese Current Visit: Yes Status: Chronic Code(s): E11.69 - TYPE 2 DIABETES MELLITUS WITH OTHER SPECIFIED COMPLICATION; E66.9 - OBESITY, UNSPECIFIED SNOMED Code(s): 64397848 (3) GERD (gastroesophageal reflux disease) Current Visit: Yes Status: Chronic Code(s): K21.9 - GASTRO-ESOPHAGEAL REFLUX DISEASE WITHOUT ESOPHAGITIS SNOMED Code(s): 310024718 (4) Gout Current Visit: Yes Status: Chronic Code(s): M10.9 - GOUT, UNSPECIFIED SNOMED Code(s): 92792236 (5) History of coronary artery disease Current Visit: Yes Status: Chronic Code(s): Z86.79 - PERSONAL HISTORY OF OTHER DISEASES OF THE CIRCULATORY SYSTEM SNOMED Code(s): 842568501 (6) Hyperlipidemia Current Visit: Yes Status: Chronic Code(s): E78.5 - HYPERLIPIDEMIA, UNSPECIFIED SNOMED Code(s): 55696880 (7) Hypertension Current Visit: Yes Status: Chronic Code(s): I10 - ESSENTIAL (PRIMARY) HYPERTENSION SNOMED Code(s): 75348707 (8) Morbid obesity Current Visit: Yes Status: Chronic Code(s): E66.01 - MORBID (SEVERE) OBESITY DUE TO EXCESS CALORIES SNOMED Code(s): 547334631 (9) Obstructive sleep apnea Current Visit: Yes Status: Chronic Code(s): G47.33 - OBSTRUCTIVE SLEEP APNEA (ADULT) (PEDIATRIC) SNOMED Code(s): 51029176 (10) Paroxysmal atrial fibrillation Current Visit: Yes Status: Chronic Code(s): I48.0 - PAROXYSMAL ATRIAL FIBRILLATION SNOMED Code(s): 068406019 (11) Stenosis of right carotid artery Current Visit: Yes Status: Chronic Code(s): I65.21 - OCCLUSION AND STENOSIS OF RIGHT CAROTID ARTERY SNOMED Code(s): 544654180893623 Plan: 1. Continue current medical management per primary care service. 2. Cardiology management for post myocardial infarction, cardiopulmonary arrest. 3. Wean O2 as tolerated. Encourage incentive spirometry use 10 times every hour while awake. 4. GI/DVT prophylaxis. 5. Will continue to monitor daily labs and x-rays. 6. Maintain stable blood pressure. 7. Increase activity as tolerated. PT/OT following. Patient will need aggressive physical therapy when discharged. 8. Patient may have sips of water with meds and ice chips for now. Monitor swallowing. Speech therapy like to do modified swallow on Thursday. Patient has passed nursing bedside swallow. 9. Right carotid endarterectomy site remains stable. Time with Patient: Greater than 30
[2017-05-16 12:15] LABS: Glucose,Whole Blood 189 mg/dL (75-99)
[2017-05-16 14:15] LABS: Glucose,Whole Blood 149 mg/dL (75-99)
--- NOTE | 2017-05-16 15:31 | P.PN ---
Subjective Progress Note Date: 05/16/17 This patient is a 76-year-old right-handed white male who underwent a right carotid endarterectomy. Following this procedure 2 days later he suffered a cardiac arrest. He was intubated and has been making slow recovery following his cardiac arrest. He has evidence of a diffuse anoxic encephalopathy based on his clinical history and EEG findings. The patient was extubated yesterday and was placed on BiPAP. Yesterday evening he was noted to have increase left upper extremity weakness. He was sent for a computed tomography scan of the brain yesterday which did reveal evidence of a subacute lacunar infarct in the right internal capsule. This was not appreciated on a previous study done on . This suggest he has suffered an acute infarct in the right internal capsule. This would explain his left-sided weakness. Patient was seen by Dr. Juárez yesterday and he was aware of his CAT scan findings. He recommends to continue to work with respiratory therapy as well as physical therapy and speech therapy. They're recommending a swallow study for the patient as well. The patient neurologically is much more awake and alert today. He is able to answer questions appropriately. He does have evidence of left-sided hemiparesis on examination. He will require ongoing PT OT evaluation once he is transferred out of the intensive care unit. We have recommended to increase his dose of aspirin to full adult aspirin 325 mg daily based on his new CAT scan findings. We will await further recommendations from Dr. Juárez. His overall prognosis at this time remains guarded. The patient is much more awake and alert today in the intensive care unit. Family members are at bedside and he is conversing with all of them very appropriately. This case was discussed at length with the patient's who is at bedside. She was updated on his CAT scan of the brain results that were done yesterday. She is been pleased with his progress as he seems to be much more awake and alert and his normal self today. We will continue close neurological follow-up for the patient. Objective - Vital Signs Vital signs: Vital Signs Temp 97.5 F L 05/16/17 12:00 Pulse 59 L 05/16/17 14:00 Resp 16 05/16/17 14:00 BP 113/53 05/15/17 05:00 Pulse Ox 96 05/16/17 14:00 Intake & Output 05/15/17 05/16/17 05/16/17 18:59 06:59 18:59 Intake Total 819.109 864.40 447.566 Output Total 1455 1140 1020 Balance -635.891 -275.60 -572.434 Weight 130.1 kg 133 kg Intake: IV 750 800 380 Dextrose 5% in Water 1, 600 800 350 000 ml @ 50 mls/hr IV . Q20H [facility] Rx#:[id number] Dextrose 5% in Water 500 150 ml @ 50 mls/hr IV .Q10H [facility] Rx#:[id number] KVO 30 Intake, IV Titration 69.109 64.40 17.566 Amount Insulin Regular 100 unit 69.109 64.40 17.566 In Sodium Chloride 0.9% 100 ml @ Per Protocol IV .Q0M [facility] Rx#:[id number] Lipid 50 Dextrose 5% in Water 1, 50 000 ml @ 50 mls/hr IV . Q20H [facility] Rx#:[id number] Output: Urine 1455 1140 1020 Other: Voiding Method Indwelling Catheter Indwelling Catheter Indwelling Catheter ABP, PAP, CO, CI - Last Documented Arterial Blood Pressure 126/44 - Exam Physical examination: PHYSICAL EXAMINATION: Patient is resting comfortably in bed. He was extubated yesterday. VITAL SIGNS: Blood pressure is [148/45]. Heart rate is [57]. Respiration is [14] . Temperature is [97.5]. HEENT: Head is atraumatic, neck is supple, there were no carotid bruits. CHEST: Lungs are clear to auscultation and percussion. CARDIAC: S1, S2 normal rate and rhythm. There is no murmur. ABDOMEN: Soft and nontender. Bowel sounds are present. EXTREMITIES: There is no pedal edema. Peripheral pulses are present. Neurological examination: Patient is examined today in the intensive care unit. He is only on nasal oxygen at this time at 4 L. He is much more awake and alert today. He is following simple commands. Patient is much more awake and alert and is making full sentences. Family is noted significant improvement in his overall mental status. Cranial nerves II through XII are grossly intact. Motor examination reveals left-sided hemiparesis 3+/5 on the left side. The deep tendon reflexes are 1+ and symmetric. Plantar responses flexor bilaterally. Coordination gait cannot be assessed in this patient at this time. - Labs CBC & Chem 7: 05/16/17 04:55 05/16/17 04:55 Labs: Abnormal Lab Results - Last 24 Hours (Table) 05/15/17 05/15/17 05/15/17 Range/Units 16:27 18:22 20:33 WBC (3.8-10.6) k/uL RBC (4.30-5.90) m/uL Hgb (13.0-17.5) gm/dL Hct (39.0-53.0) % MCV (80.0-100.0) fL Neutrophils # (1.3-7.7) k/uL Eosinophils # (0-0.7) k/uL Sodium (137-145) mmol/L Potassium (3.5-5.1) mmol/L BUN (9-20) mg/dL Creatinine (0.66-1.25) mg/dL Glucose (74-99) mg/dL POC Glucose (mg/dL) 133 H 203 H 188 H (75-99) mg/dL Magnesium (1.6-2.3) mg/dL 05/15/17 05/15/17 05/15/17 Range/Units 21:59 22:40 22:40 WBC (3.8-10.6) k/uL RBC (4.30-5.90) m/uL Hgb (13.0-17.5) gm/dL Hct (39.0-53.0) % MCV (80.0-100.0) fL Neutrophils # (1.3-7.7) k/uL Eosinophils # (0-0.7) k/uL Sodium 146 H (137-145) mmol/L Potassium 3.4 L 3.4 L (3.5-5.1) mmol/L BUN 134 H* (9-20) mg/dL Creatinine 3.10 H (0.66-1.25) mg/dL Glucose 148 H (74-99) mg/dL POC Glucose (mg/dL) 162 H (75-99) mg/dL Magnesium (1.6-2.3) mg/dL 05/16/17 05/16/17 05/16/17 Range/Units 00:07 01:14 02:06 WBC (3.8-10.6) k/uL RBC (4.30-5.90) m/uL Hgb (13.0-17.5) gm/dL Hct (39.0-53.0) % MCV (80.0-100.0) fL Neutrophils # (1.3-7.7) k/uL Eosinophils # (0-0.7) k/uL Sodium (137-145) mmol/L Potassium (3.5-5.1) mmol/L BUN (9-20) mg/dL Creatinine (0.66-1.25) mg/dL Glucose (74-99) mg/dL POC Glucose (mg/dL) 123 H 138 H 168 H (75-99) mg/dL Magnesium (1.6-2.3) mg/dL 05/16/17 05/16/17 05/16/17 Range/Units 03:17 04:53 04:55 WBC 15.0 H (3.8-10.6) k/uL RBC 2.92 L (4.30-5.90) m/uL Hgb 9.6 L (13.0-17.5) gm/dL Hct 30.7 L (39.0-53.0) % MCV 105.1 H (80.0-100.0) fL Neutrophils # 11.5 H (1.3-7.7) k/uL Eosinophils # 0.8 H (0-0.7) k/uL Sodium (137-145) mmol/L Potassium (3.5-5.1) mmol/L BUN (9-20) mg/dL Creatinine (0.66-1.25) mg/dL Glucose (74-99) mg/dL POC Glucose (mg/dL) 156 H 153 H (75-99) mg/dL Magnesium (1.6-2.3) mg/dL 05/16/17 05/16/17 05/16/17 Range/Units 04:55 04:55 06:41 WBC (3.8-10.6) k/uL RBC (4.30-5.90) m/uL Hgb (13.0-17.5) gm/dL Hct (39.0-53.0) % MCV (80.0-100.0) fL Neutrophils # (1.3-7.7) k/uL Eosinophils # (0-0.7) k/uL Sodium 147 H (137-145) mmol/L Potassium (3.5-5.1) mmol/L BUN 130 H* (9-20) mg/dL Creatinine 3.00 H (0.66-1.25) mg/dL Glucose 144 H (74-99) mg/dL POC Glucose (mg/dL) 126 H (75-99) mg/dL Magnesium 3.0 H (1.6-2.3) mg/dL 05/16/17 05/16/17 05/16/17 Range/Units 08:04 09:57 11:07 WBC (3.8-10.6) k/uL RBC (4.30-5.90) m/uL Hgb (13.0-17.5) gm/dL Hct (39.0-53.0) % MCV (80.0-100.0) fL Neutrophils # (1.3-7.7) k/uL Eosinophils # (0-0.7) k/uL Sodium (137-145) mmol/L Potassium (3.5-5.1) mmol/L BUN (9-20) mg/dL Creatinine (0.66-1.25) mg/dL Glucose (74-99) mg/dL POC Glucose (mg/dL) 153 H 124 H 138 H (75-99) mg/dL Magnesium (1.6-2.3) mg/dL 05/16/17 05/16/17 Range/Units 12:13 14:13 WBC (3.8-10.6) k/uL RBC (4.30-5.90) m/uL Hgb (13.0-17.5) gm/dL Hct (39.0-53.0) % MCV (80.0-100.0) fL Neutrophils # (1.3-7.7) k/uL Eosinophils # (0-0.7) k/uL Sodium (137-145) mmol/L Potassium (3.5-5.1) mmol/L BUN (9-20) mg/dL Creatinine (0.66-1.25) mg/dL Glucose (74-99) mg/dL POC Glucose (mg/dL) 189 H 149 H (75-99) mg/dL Magnesium (1.6-2.3) mg/dL Microbiology - Last 24 Hours (Table) 05/12/17 21:20 Blood Culture - Preliminary Blood No Growth after 72 hours 05/09/17 09:12 Blood Culture - Final Blood No Growth after 144 hours Assessment and Plan (1) Cardiopulmonary arrest with successful resuscitation Current Visit: Yes Status: Acute Code(s): I46.9 - CARDIAC ARREST, CAUSE UNSPECIFIED SNOMED Code(s): 756547598 (2) Anoxic encephalopathy Current Visit: Yes Status: Acute Code(s): G93.1 - ANOXIC BRAIN DAMAGE, NOT ELSEWHERE CLASSIFIED SNOMED Code(s): 525269394 (3) History of right-sided carotid endarterectomy Current Visit: Yes Status: Acute Code(s): Z98.890 - OTHER SPECIFIED POSTPROCEDURAL STATES SNOMED Code(s): 925848874 (4) Diabetes mellitus type 2 in obese Current Visit: Yes Status: Chronic Code(s): E11.69 - TYPE 2 DIABETES MELLITUS WITH OTHER SPECIFIED COMPLICATION; E66.9 - OBESITY, UNSPECIFIED SNOMED Code(s): 73874721 (5) Paroxysmal atrial fibrillation Current Visit: Yes Status: Chronic Code(s): I48.0 - PAROXYSMAL ATRIAL FIBRILLATION SNOMED Code(s): 199939141 Plan: This patient is a 76-year-old male who underwent a right carotid endarterectomy last week. 2 days after his surgery he suffered an acute [place] in progress. He was extubated and is showing improvement in his overall mental status. He is postoperative day #10 today. He is able to answer questions today and is much more awake and alert. He was noted to have some left-sided weakness yesterday and for this reason was sent for a computed tomography scan of the brain. CAT scan of the brain revealed evidence of a subacute lacunar infarct in the right internal capsule. This finding suggests he has suffered an acute stroke producing left-sided hemiparesis. Patient was seen by Dr. Garces and he is aware of the CAT scan findings. We have increased his aspirin to a full adult aspirin 325 mg daily. He will require aggressive PT/OT and speech therapy during this admission. We will continue to follow his progress closely. His overall prognosis remains guarded. Case was discussed at length today with the patient's at bedside. She was updated on his CAT scan results and was updated on his neurological examination today. The patient does seem to be much more awake and alert and is conversant with several family members today in the ICU. His is also noted significant improvement in his condition. She is aware of his guarded condition. We will continue to monitor his progress closely in the intensive care unit.
[2017-05-16 15:52] LABS: Glucose,Whole Blood 154 mg/dL (75-99)
--- NOTE | 2017-05-16 18:10 | P.PN ---
Subjective Progress Note Date: 05/16/17 Principal diagnosis: Patient underwent a complete right carotid endarterectomy , on the evening of postop day 3 he underwent complete cardiopulmonary arrest, was resuscitated for approximately 20 minutes, the pulse was restored patient was intubated and remained on the vent. Patient was seen today on 05/16/2017 was extubated yesterday I spoke to him he responded appropriately to questions and is moving all fours however he has some reduction in mobility on the left consistent with a right-sided stroke Patient was extubated last night was seen today awake alert spending appropriately to questions patient is somewhat limited with motion on the left side secondary to a rate cerebral hemispheric stroke I expect patient to continue to improve we will reevaluate in the morning Objective - Vital Signs Vital signs: Vital Signs Temp 97.5 F L 05/16/17 12:00 Pulse 54 L 05/16/17 15:59 Resp 19 05/16/17 15:00 BP 113/53 05/15/17 05:00 Pulse Ox 100 05/16/17 15:44 Intake & Output 05/15/17 05/16/17 05/16/17 18:59 06:59 18:59 Intake Total 819.109 864.40 571.566 Output Total 1455 1140 1245 Balance -635.891 -275.60 -673.434 Weight 130.1 kg 133 kg Intake: IV 750 800 500 Dextrose 5% in Water 1, 600 800 450 000 ml @ 50 mls/hr IV . Q20H JOSÉ MIGUEL Rx#:[id number] Dextrose 5% in Water 500 150 ml @ 50 mls/hr IV .Q10H ONE Rx#:[id number] KVO 50 Intake, IV Titration 69.109 64.40 21.566 Amount Insulin Regular 100 unit 69.109 64.40 21.566 In Sodium Chloride 0.9% 100 ml @ Per Protocol IV .Q0M JOSÉ MIGUEL Rx#:[id number] Lipid 50 Dextrose 5% in Water 1, 50 000 ml @ 50 mls/hr IV . Q20H JOSÉ MIGUEL Rx#:[id number] Output: Urine 1455 1140 1245 Other: Voiding Method Indwelling Catheter Indwelling Catheter Indwelling Catheter ABP, PAP, CO, CI - Last Documented Arterial Blood Pressure 141/50 - Exam General: Patient is extubated awake alert responding appropriately to questions on 50% Ventimask HEENT: [PERRL. EOMI. No pharyngeal erythema or exudate.] Neck: Significant edema to the neck ecchymosis significant on the right side secondary to carotid endarterectomy postoperative day #4 Cardiac: [Heart regular in rate and rhythm. No S3. No S4. No clicks, rubs. No murmur.] Lungs: Breath sounds appear improved with auscultation bilaterally Abdomen: [No mass. No organomegaly. Bowel sounds presnt and normoactive in all 4 quadrants.] Extremes: 1-2+ edema all 4 extremes : [] Musculoskeletal: [No joint erythema, edema or tenderness.] Skin: [No rash.] Neurologic: [No lateralizing deficits. CN II - XII grossly intact.] Patient is moving all extremes however left side seems to be moving slower and with less strength consistent with a right hemispheric stroke Lymphatic: [No adenopathy.] - Labs CBC & Chem 7: 05/16/17 04:55 05/16/17 04:55 Labs: Abnormal Lab Results - Last 24 Hours (Table) 05/15/17 05/15/17 05/15/17 Range/Units 18:22 20:33 21:59 WBC (3.8-10.6) k/uL RBC (4.30-5.90) m/uL Hgb (13.0-17.5) gm/dL Hct (39.0-53.0) % MCV (80.0-100.0) fL Neutrophils # (1.3-7.7) k/uL Eosinophils # (0-0.7) k/uL Sodium (137-145) mmol/L Potassium (3.5-5.1) mmol/L BUN (9-20) mg/dL Creatinine (0.66-1.25) mg/dL Glucose (74-99) mg/dL POC Glucose (mg/dL) 203 H 188 H 162 H (75-99) mg/dL Magnesium (1.6-2.3) mg/dL 05/15/17 05/15/17 05/16/17 Range/Units 22:40 22:40 00:07 WBC (3.8-10.6) k/uL RBC (4.30-5.90) m/uL Hgb (13.0-17.5) gm/dL Hct (39.0-53.0) % MCV (80.0-100.0) fL Neutrophils # (1.3-7.7) k/uL Eosinophils # (0-0.7) k/uL Sodium 146 H (137-145) mmol/L Potassium 3.4 L 3.4 L (3.5-5.1) mmol/L BUN 134 H* (9-20) mg/dL Creatinine 3.10 H (0.66-1.25) mg/dL Glucose 148 H (74-99) mg/dL POC Glucose (mg/dL) 123 H (75-99) mg/dL Magnesium (1.6-2.3) mg/dL 05/16/17 05/16/17 05/16/17 Range/Units 01:14 02:06 03:17 WBC (3.8-10.6) k/uL RBC (4.30-5.90) m/uL Hgb (13.0-17.5) gm/dL Hct (39.0-53.0) % MCV (80.0-100.0) fL Neutrophils # (1.3-7.7) k/uL Eosinophils # (0-0.7) k/uL Sodium (137-145) mmol/L Potassium (3.5-5.1) mmol/L BUN (9-20) mg/dL Creatinine (0.66-1.25) mg/dL Glucose (74-99) mg/dL POC Glucose (mg/dL) 138 H 168 H 156 H (75-99) mg/dL Magnesium (1.6-2.3) mg/dL 05/16/17 05/16/17 05/16/17 Range/Units 04:53 04:55 04:55 WBC 15.0 H (3.8-10.6) k/uL RBC 2.92 L (4.30-5.90) m/uL Hgb 9.6 L (13.0-17.5) gm/dL Hct 30.7 L (39.0-53.0) % MCV 105.1 H (80.0-100.0) fL Neutrophils # 11.5 H (1.3-7.7) k/uL Eosinophils # 0.8 H (0-0.7) k/uL Sodium 147 H (137-145) mmol/L Potassium (3.5-5.1) mmol/L BUN 130 H* (9-20) mg/dL Creatinine 3.00 H (0.66-1.25) mg/dL Glucose 144 H (74-99) mg/dL POC Glucose (mg/dL) 153 H (75-99) mg/dL Magnesium (1.6-2.3) mg/dL 05/16/17 05/16/17 05/16/17 Range/Units 04:55 06:41 08:04 WBC (3.8-10.6) k/uL RBC (4.30-5.90) m/uL Hgb (13.0-17.5) gm/dL Hct (39.0-53.0) % MCV (80.0-100.0) fL Neutrophils # (1.3-7.7) k/uL Eosinophils # (0-0.7) k/uL Sodium (137-145) mmol/L Potassium (3.5-5.1) mmol/L BUN (9-20) mg/dL Creatinine (0.66-1.25) mg/dL Glucose (74-99) mg/dL POC Glucose (mg/dL) 126 H 153 H (75-99) mg/dL Magnesium 3.0 H (1.6-2.3) mg/dL 05/16/17 05/16/17 05/16/17 Range/Units 09:57 11:07 12:13 WBC (3.8-10.6) k/uL RBC (4.30-5.90) m/uL Hgb (13.0-17.5) gm/dL Hct (39.0-53.0) % MCV (80.0-100.0) fL Neutrophils # (1.3-7.7) k/uL Eosinophils # (0-0.7) k/uL Sodium (137-145) mmol/L Potassium (3.5-5.1) mmol/L BUN (9-20) mg/dL Creatinine (0.66-1.25) mg/dL Glucose (74-99) mg/dL POC Glucose (mg/dL) 124 H 138 H 189 H (75-99) mg/dL Magnesium (1.6-2.3) mg/dL 05/16/17 05/16/17 Range/Units 14:13 15:50 WBC (3.8-10.6) k/uL RBC (4.30-5.90) m/uL Hgb (13.0-17.5) gm/dL Hct (39.0-53.0) % MCV (80.0-100.0) fL Neutrophils # (1.3-7.7) k/uL Eosinophils # (0-0.7) k/uL Sodium (137-145) mmol/L Potassium (3.5-5.1) mmol/L BUN (9-20) mg/dL Creatinine (0.66-1.25) mg/dL Glucose (74-99) mg/dL POC Glucose (mg/dL) 149 H 154 H (75-99) mg/dL Magnesium (1.6-2.3) mg/dL Microbiology - Last 24 Hours (Table) 05/12/17 21:20 Blood Culture - Preliminary Blood No Growth after 72 hours Assessment and Plan (1) Cardiopulmonary arrest with successful resuscitation Narrative/Plan: Patient patient extubated breathing on her own and responding appropriately to questions Current Visit: Yes Status: Acute Code(s): I46.9 - CARDIAC ARREST, CAUSE UNSPECIFIED SNOMED Code(s): 590973676 (2) History of coronary artery disease Narrative/Plan: Status post successful right carotid endarterectomy with complication of cardio pulmonary arrest with successful resuscitation Patient currently extubated and responding appropriately Current Visit: Yes Status: Chronic Code(s): Z86.79 - PERSONAL HISTORY OF OTHER DISEASES OF THE CIRCULATORY SYSTEM SNOMED Code(s): 354951354 (3) Stenosis of right carotid artery Narrative/Plan: Right-sided endarterectomy postoperative day 7 Current Visit: Yes Status: Chronic Code(s): I65.21 - OCCLUSION AND STENOSIS OF RIGHT CAROTID ARTERY SNOMED Code(s): 487050037502118 Plan: Family is alert to the critical acuity of patient's condition they've agreed to allow patient to become a DO NOT RESUSCITATE however they are not ready to withdrawal port at this time awaiting CAT scan of the brain to be performed once patient is stable enough to travel to CAT scan We'll continue to follow prognosis critical Time with Patient: Greater than 30
[2017-05-16 18:12] LABS: Glucose,Whole Blood 178 mg/dL (75-99)
[2017-05-16] MEDS ORDERED: POTASSIUM CHLORIDE 20 MEQ in WATER FOR INJECTION 1 100ML.BAG IVPB ONE (19:44)
[2017-05-16] MEDS ORDERED: POTASSIUM CHLORIDE 20 MEQ in SODIUM CHLORIDE 0.9% 100 ML IVPB ONE (19:48)
[2017-05-16 21:40] LABS: Glucose,Whole Blood 145 mg/dL (75-99)
[2017-05-16 23:49] LABS: Glucose,Whole Blood 123 mg/dL (75-99)
[2017-05-17 01:13] LABS: Glucose,Whole Blood 160 mg/dL (75-99)
[2017-05-17] MEDS: IPRATROPIUM-ALBUTEROL 3 ML NEB INHALATION SCH ×5 (04:12→20:07)
[2017-05-17 04:21] LABS: Glucose,Whole Blood 183 mg/dL (75-99)
[2017-05-17] MEDS: MORPHINE SULFATE 4 MG/ML SYRINGE IVP PRN ×3 (04:25→15:58)
[2017-05-17 04:45] LABS: Basophils # (A) 0.1 k/uL (0-0.2); Basophils % (A) 0 %; Eosinophils # (A) 0.8 k/uL (0-0.7); Eosinophils % (A) 6 %; HCT 29.1 % (39.0-53.0); HGB 9.7 gm/dL (13.0-17.5); Lymphocytes # (A) 1.4 k/uL (1.0-4.8); Lymphocytes % (A) 10 %; MCH 33.8 pg (25.0-35.0); MCHC 33.2 g/dL (31.0-37.0); MCV 101.6 fL (80.0-100.0); Macrocytosis Slight; Mean Platelet Volume 9.1; Monocytes # (A) 0.7 k/uL (0-1.0); Monocytes % (A) 5 %; Neutrophils # (A) 10.3 k/uL (1.3-7.7); Neutrophils % (A) 75 %; Platelet Count 376 k/uL (150-450); RBC 2.86 m/uL (4.30-5.90); RDW 14.4 % (11.5-15.5); WBC 13.6 k/uL (3.8-10.6)
[2017-05-17 05:48] LABS: Albumin 3.4 g/dL (3.5-5.0); Potassium 3.5 mmol/L (3.5-5.1); Total Bilirubin 0.9 mg/dL (0.2-1.3); Total Protein 6.8 g/dL (6.3-8.2)
[2017-05-17 07:06] LABS: Glucose,Whole Blood 145 mg/dL (75-99)
[2017-05-17] MEDS ORDERED: Potassium Replacement Protocol 1 EACH MISC MISCELLANE PRN (07:06)
[2017-05-17] MEDS ORDERED: POTASSIUM CHLORIDE 20 MEQ in SODIUM CHLORIDE 0.9% 100 ML IVPB ONE (07:06)
[2017-05-17 09:09] LABS: Glucose,Whole Blood 160 mg/dL (75-99)
--- NOTE | 2017-05-17 09:31 | P.PN ---
Subjective Progress Note Date: 05/17/17 Principal diagnosis: Status post cardiopulmonary arrest Seen and examined for the follow-up of acute kidney injury status post cardiac arrest. Currently extubated. Wearing Boothe catheter making good amount of urine. Objective - Vital Signs Vital signs: Vital Signs Temp 97.8 F 05/17/17 04:00 Pulse 56 L 05/17/17 07:36 Resp 16 05/17/17 07:00 BP 113/53 05/15/17 05:00 Pulse Ox 96 05/17/17 07:00 Intake & Output 05/16/17 05/17/17 05/17/17 17:59 06:59 18:59 Intake Total 16.733 Output Total Balance 16.733 Weight Intake: IV Dextrose 5% in Water 1, 000 ml @ 50 mls/hr IV . Q20H JOSÉ MIGUEL Rx#:[id number] KVO Intake, IV Titration 16.733 Amount Insulin Regular 100 unit 16.733 In Sodium Chloride 0.9% 100 ml @ Per Protocol IV .Q0M JOSÉ MIGUEL Rx#:[id number] Lipid Dextrose 5% in Water 1, 000 ml @ 50 mls/hr IV . Q20H JOSÉ MIGUEL Rx#:[id number] Output: Urine Other: Voiding Method ABP, PAP, CO, CI - Last Documented Arterial Blood Pressure 146/44 - Exam General lying in bed no acute distress Cardiovascular S1-S2 heard Lungs clear to auscultation Abdomen distended bowel sounds present Musculoskeletal trace edema - Labs CBC & Chem 7: 05/17/17 04:20 05/17/17 04:20 Labs: Abnormal Lab Results - Last 24 Hours (Table) 05/16/17 05/16/17 05/16/17 Range/Units 04:55 09:57 11:07 WBC (3.8-10.6) k/uL RBC (4.30-5.90) m/uL Hgb (13.0-17.5) gm/dL Hct (39.0-53.0) % MCV (80.0-100.0) fL Neutrophils # (1.3-7.7) k/uL Eosinophils # (0-0.7) k/uL Potassium (3.5-5.1) mmol/L BUN (9-20) mg/dL Creatinine (0.66-1.25) mg/dL Glucose (74-99) mg/dL POC Glucose (mg/dL) 124 H 138 H (75-99) mg/dL Magnesium 3.0 H (1.6-2.3) mg/dL Albumin (3.5-5.0) g/dL 05/16/17 05/16/17 05/16/17 Range/Units 12:13 14:13 15:50 WBC (3.8-10.6) k/uL RBC (4.30-5.90) m/uL Hgb (13.0-17.5) gm/dL Hct (39.0-53.0) % MCV (80.0-100.0) fL Neutrophils # (1.3-7.7) k/uL Eosinophils # (0-0.7) k/uL Potassium (3.5-5.1) mmol/L BUN (9-20) mg/dL Creatinine (0.66-1.25) mg/dL Glucose (74-99) mg/dL POC Glucose (mg/dL) 189 H 149 H 154 H (75-99) mg/dL Magnesium (1.6-2.3) mg/dL Albumin (3.5-5.0) g/dL 05/16/17 05/16/17 05/16/17 Range/Units 16:50 18:09 21:38 WBC (3.8-10.6) k/uL RBC (4.30-5.90) m/uL Hgb (13.0-17.5) gm/dL Hct (39.0-53.0) % MCV (80.0-100.0) fL Neutrophils # (1.3-7.7) k/uL Eosinophils # (0-0.7) k/uL Potassium 3.4 L (3.5-5.1) mmol/L BUN (9-20) mg/dL Creatinine (0.66-1.25) mg/dL Glucose (74-99) mg/dL POC Glucose (mg/dL) 178 H 145 H (75-99) mg/dL Magnesium (1.6-2.3) mg/dL Albumin (3.5-5.0) g/dL 05/16/17 05/17/17 05/17/17 Range/Units 23:46 01:11 04:18 WBC (3.8-10.6) k/uL RBC (4.30-5.90) m/uL Hgb (13.0-17.5) gm/dL Hct (39.0-53.0) % MCV (80.0-100.0) fL Neutrophils # (1.3-7.7) k/uL Eosinophils # (0-0.7) k/uL Potassium (3.5-5.1) mmol/L BUN (9-20) mg/dL Creatinine (0.66-1.25) mg/dL Glucose (74-99) mg/dL POC Glucose (mg/dL) 123 H 160 H 183 H (75-99) mg/dL Magnesium (1.6-2.3) mg/dL Albumin (3.5-5.0) g/dL 05/17/17 05/17/17 05/17/17 Range/Units 04:20 04:20 07:04 WBC 13.6 H (3.8-10.6) k/uL RBC 2.86 L (4.30-5.90) m/uL Hgb 9.7 L (13.0-17.5) gm/dL Hct 29.1 L (39.0-53.0) % MCV 101.6 H (80.0-100.0) fL Neutrophils # 10.3 H (1.3-7.7) k/uL Eosinophils # 0.8 H (0-0.7) k/uL Potassium (3.5-5.1) mmol/L BUN 106 H* (9-20) mg/dL Creatinine 2.40 H (0.66-1.25) mg/dL Glucose 163 H (74-99) mg/dL POC Glucose (mg/dL) 145 H (75-99) mg/dL Magnesium (1.6-2.3) mg/dL Albumin 3.4 L (3.5-5.0) g/dL 05/17/17 Range/Units 09:08 WBC (3.8-10.6) k/uL RBC (4.30-5.90) m/uL Hgb (13.0-17.5) gm/dL Hct (39.0-53.0) % MCV (80.0-100.0) fL Neutrophils # (1.3-7.7) k/uL Eosinophils # (0-0.7) k/uL Potassium (3.5-5.1) mmol/L BUN (9-20) mg/dL Creatinine (0.66-1.25) mg/dL Glucose (74-99) mg/dL POC Glucose (mg/dL) 160 H (75-99) mg/dL Magnesium (1.6-2.3) mg/dL Albumin (3.5-5.0) g/dL Microbiology - Last 24 Hours (Table) 05/12/17 21:20 Blood Culture - Preliminary Blood No Growth after 96 hours Assessment and Plan Assessment: Impression: #1 nonoliguric acute kidney injury secondary to ischemic ATN from cardiopulmonary arrest. #2 hypernatremia secondary to decreased oral intake and diuretics #3 status post VDR F #4 status post cardiopulmonary arrest following carotid endarterectomy #5 cardiomyopathy with the EF of 20%. #6 hypokalemia with metabolic alkalosis from diuretics Recommendations: #1 continue with D5 water at 50 ML's an hour. Monitor closely for volume overload. Consider oral feeding, by tomorrow and discontinue D5 water #2 replace potassium. #3 strict ins and outs. #4 avoid nephrotoxic agents and hypotensive episodes.
[2017-05-17] MEDS: ASPIRIN 325 MG TAB PO SCH (10:18)
[2017-05-17] MEDS: PANTOPRAZOLE 40 MG/10 ML VIAL IVP SCH ×2 (10:18→20:54)
[2017-05-17] MEDS: CARVEDILOL 12.5 MG TAB PO SCH ×2 (10:18→16:41)
[2017-05-17] MEDS: COLCHICINE 0.6 MG TAB PO SCH (10:18)
[2017-05-17] MEDS: SENNOSIDES-DOCUSATE SODIUM 1 EACH TAB PO SCH ×2 (10:36→20:54)
[2017-05-17 11:02] LABS: Glucose,Whole Blood 155 mg/dL (75-99)
--- NOTE | 2017-05-17 11:40 | P.PN ---
Subjective Progress Note Date: 05/17/17 Carotid stenosis, status post right carotid endarterectomy. This is a 76-year-old male patient with status post carotid endarterectomy on the right and the patient is postop day #6. Note that the patient went into acute cardio pulmonary arrest postop day #2 and he was done with initially acute respiratory arrest and subsequent cardiac arrest for a total of 30 minutes during which the patient received a total of 10 mg of epinephrine and 2 A of bicarb and subsequently the patient was intubated and placed on mechanical ventilator and since then the patient has remained intubated. On today's evaluation of 05/11/2017, the patient is sedated on Diprivan at 45 mg per KG pigmented. The patient is heavily sedated. He occasionally bites the tube and he withdraws to some stimulation to his lower extremities bilaterally. Hemodynamically, the patient is on no pressors. The patient is still in pulmonary edema and his chest x-ray and the patient is currently on Lasix drip at 10 mg an hour. Urine output is more than 100 mL an hour daily basis. The urine is somewhat bloody as the patient had some bleeding related to Pradaxa intake and Pradaxa is currently off. The patient is on assist- control mode of ventilation at the rate of 26, tidal volume 500, FiO2 of 50% and a PEEP of 15. The blood gases from this morning showed a pH of 7.49, with a pCO2 of 39 and pO2 of 113. The chest x-ray still showing pulmonary edema. Minimal amount of bloody secretions from his orotracheal tube. He is synchronous with the mechanical ventilator. Breath sounds are equal and symmetrical bilaterally. Echocardiogram showed an ejection fraction of less than 20%. The patient is still in acute kidney injury. Creatinine is up to 3.3 yet he is nonoliguric at this stage and nephrology is on the case. We are going to continue the Lasix drip at the same rate for now. The patient is being controlled with an insulin drip in regards to his blood sugar. The patient has not been given any sedation holiday since his cardiac/pulmonary arrest. The patient is on tube feeds and receding vital high protein at the rate of 60 mL an hour. Otherwise, no other significant events overnight. The CAT scan of the brain that was obtained on showed no acute abnormalities are then chronic cerebral atrophy. The patient has a hematoma over the right neck area which is currently stable and soft and the incision site is clean. On 05/13/2079 I'm seeing this patient for a follow-up in the patient was given a sedation holiday and he is opening up his eyes. He is not following any simple commands yet. No preferential gaze. No nystagmus. No agitation. He is doing some limited activity as far as movement in his upper extremities. He has a decent cough. The patient has no seizure activity. Incision over the right neck is clean and dry and the ecchymosis and hematoma over the right neck area soft and has not progressed. He is afebrile. He is on a mechanical ventilator. The PEEP has been drop down to 10 with an FiO2 of 50% and the patient remains on a tidal volume of 500 with a rate of 26. Chest x-ray shows some improvement in the volume status. The blood gases from today showed a pH of 7.49 with a pCO2 of 40 and pO2 of 74. The patient is on IV Lasix 60 mg every 8 hours. He is getting into a negative fluid balance. Hematuria is also improving. Otherwise the patient is producing adequate amount of urine output. Creatinine today is at 3.1 which is stable and not worse compared to yesterday. He is afebrile. He is tolerating his tube feeds. He was given a Dulcolax suppository. He is on no pressors. No other significant events overnight. Family is at the bedside. On 05/13/2017 I'm seeing this patient for a follow-up. The patient remains intubated on a mechanical ventilator. Note that the patient was taken off sedation throughout the day yesterday. He was waking up and he was opening his eyes spontaneously. He was not following commands initially. Subsequently he became more responsive and he follows some simple commands and today's able to wiggle his toes and move his fingers upon demand. He is calm and comfortable he is not agitated. Earlier this morning while being positioned in bed the patient became a bit tachycardic and tachypneic and agitated. He had to be placed back on Diprivan for a brief period of time and currently is back to being off sedation. He is still on a mechanical ventilator. I managed to drop the PEEP down to 8 and this morning he is an assist-control mode at the rate of 26, tidal volume of 500 with a PEEP of 8 and FiO2 of 40%. Blood gases showed a pH of 7.55 with a pCO2 of 39 and pO2 of 80. The chest x-ray from today still showing some but the pulmonary vessel congestion/edema. Nevertheless, the patient was diuresed adequately with accommodation of Lasix and Zaroxolyn the patient has been in a negative fluid balance of at least 5-6 L over the past 24 hours. This has resulted in to some metabolic alkalosis and the pH is up to 7.5 and a serum bicarb is up to 34. No hematuria this point. He is tolerating his tube feeds. No fever or chills. The incision site over the right neck area dry clean and intact. Blood pressure is fluctuating at times it's quite high requiring hydralazine pushes for blood pressure control. Cardiac rhythm is still sinus. He is off antibiotics for now. On 05/14/2017, I'm seeing this patient for a follow-up. The patient is being given a sedation holiday. He stayed off sedation throughout the day yesterday and he had to be placed on sedation again this morning. He is only on 20 mics of the prevent. He was awake and he was following commands yesterday. This morning, he is still on a mechanical ventilator. His PEEP has been drop down to 5. The patient is assist-control mode with a tidal volume 500, rate of 26 and the FiO2 down to 40%. Chest x-ray findings are stable. The patient was diuresed aggressively with IV Lasix and Zaroxolyn. Her net fluid balance over the past 24 hours is -3.6 L in the prior to that was -6.3 L. The swelling in the upper and lower occiput is improved and the patient's volume status also improved. The patient has a mild degree of metabolic alkalosis with a pH of 7.52 with a pCO2 of 42 and pO2 of 65 on today's blood gases. The renal function is still impaired. BN is up 214. Creatinine is up to 3.2. Lasix dose was cut down to 40 mg twice a day. Nephrology is on the case. No other significant events overnight. The patient remains in a normal sinus rhythm. The patient is off anticoagulants. The urine output is still somewhat bloody. There are no clots. The patient is seen again today in 05/15/2017 in follow-up in the intensive care unit. He was successfully extubated yesterday. He was placed on BiPAP 20/ 10 at 40% [id number] the evening.this morning he is awake and alert and following simple commands.computed tomography scan of the brain reveals old small right posterior frontal lobe cortical infarct. There is evidence of a subacute lacunar infarct in the right internal capsule that appears new compared to recent exam. His left lower extremity is quite weak his left upper extremity slightly weaker than the right. He is answering questions appropriately. He was removed from the BiPAPand placed on 40% Ventimask. He is maintaining O2 saturations in the 90s. Chest x-ray reveals improvement in the pulmonary vascular congestion. There is trace left pleural effusion. He remains on bronchodilators and Zosyn. White count 15.2. Hemoglobin 9.9.creatinine 3.30 BUN 132. He is receiving free water. He remains in a negative balance. He remains in sinus rhythm somewhat bradycardic. His family is at the bedside. The patient is seen again today 05/16/2017 in follow-up in the intensive care unit. He is awake and alert and in no acute distress. He denies any shortness of breath, cough or congestion. He is maintaining good O2 saturations in the upper 90s on 4 L/m per nasal cannula. He remains on Zosyn. He is currently in sinus bradycardia with occasional PVC. Blood pressure stable. He remains quite weak but is able to move all 4 extremities. Left side weaker than the right. White count 15.0. Hemoglobin 9.6. Sodium 147. BUN 130. Creatinine 3.00. Nephrology is on the case. Diamox was discontinued. He remains on D5W at 50 MLS per hour. Chest x-ray continues to show mild cardiomegaly. There is no new focal airspace opacities effusions or pneumothorax. On 05/17/2017, the patient is being seen for a follow-up. The patient is doing much better. Wide awake and alert and following commands. Left lower extremities weak and left upper extremities weak and this confirms the completion of a stroke. Otherwise, his speech is appropriate. Mentation is within normal limits. Renal function continues to improve. Sodium level is declining. The patient is in sinus rhythm. Hemodynamically stable. Wearing his BiPAP overnight. No other significant events overnight and the patient is currently on 3 L of oxygen by nasal cannula and should be able to move to telemetry. He needs aggressive physical therapy. Objective - Vital Signs Vital signs: Vital Signs Temp 97.8 F 05/17/17 04:00 Pulse 58 L 05/17/17 11:12 Resp 16 05/17/17 07:00 BP 113/53 05/15/17 05:00 Pulse Ox 96 05/17/17 07:00 Intake & Output 05/16/17 05/17/17 05/17/17 17:59 06:59 18:59 Intake Total 16.733 Output Total Balance 16.733 Weight Intake: IV Dextrose 5% in Water 1, 000 ml @ 50 mls/hr IV . Q20H JOSÉ MIGUEL Rx#:[id number] KVO Intake, IV Titration 16.733 Amount Insulin Regular 100 unit 16.733 In Sodium Chloride 0.9% 100 ml @ Per Protocol IV .Q0M JOSÉ MIGUEL Rx#:[id number] Lipid Dextrose 5% in Water 1, 000 ml @ 50 mls/hr IV . Q20H JOSÉ MIGUEL Rx#:[id number] Output: Urine Other: Voiding Method ABP, PAP, CO, CI - Last Documented Arterial Blood Pressure 146/44 - Exam Patient is awake and following some simple commands. HEENT examination is grossly unremarkable. Mucous membranes are moist. No oral lesions. A hematoma can be visualized all over the neck area, APPLYING mainly the right neck area and the incision site is clean. The hematoma itself is soft and non-enlarging at this point. Neck supple. Full range of motion. No adenopathy thyromegaly or neck vein distention. There is tremendous bruising and ecchymoses about the neck from the recent surgery. It's more right than left-sided. There hematoma is stable for now. Cardiovascular examination reveals regular rhythm rate. S1-S2 normal. No S3 or S4. No discernible murmur noted. Heart sounds are distant. Lungs reveal diffuse bilateral rhonchi. Breath sounds are diminished. Some bibasilar crackles. No wheezes. Abdomen soft bowel sounds are heard. No masses or tenderness. Extremities are intact. No cyanosis clubbing or edema. Skin is without rash or lesion. Neurologic the patient has no focal neurological deficit. Obvious motor weakness in the left lower extremity. No facial asymmetry. No altered mentation. The patient is very appropriate. Speech is within normal limits. - Labs CBC & Chem 7: 05/17/17 04:20 05/17/17 04:20 Labs: Abnormal Lab Results - Last 24 Hours (Table) 05/16/17 05/16/17 05/16/17 Range/Units 11:07 12:13 14:13 WBC (3.8-10.6) k/uL RBC (4.30-5.90) m/uL Hgb (13.0-17.5) gm/dL Hct (39.0-53.0) % MCV (80.0-100.0) fL Neutrophils # (1.3-7.7) k/uL Eosinophils # (0-0.7) k/uL Potassium (3.5-5.1) mmol/L BUN (9-20) mg/dL Creatinine (0.66-1.25) mg/dL Glucose (74-99) mg/dL POC Glucose (mg/dL) 138 H 189 H 149 H (75-99) mg/dL Albumin (3.5-5.0) g/dL 05/16/17 05/16/17 05/16/17 Range/Units 15:50 16:50 18:09 WBC (3.8-10.6) k/uL RBC (4.30-5.90) m/uL Hgb (13.0-17.5) gm/dL Hct (39.0-53.0) % MCV (80.0-100.0) fL Neutrophils # (1.3-7.7) k/uL Eosinophils # (0-0.7) k/uL Potassium 3.4 L (3.5-5.1) mmol/L BUN (9-20) mg/dL Creatinine (0.66-1.25) mg/dL Glucose (74-99) mg/dL POC Glucose (mg/dL) 154 H 178 H (75-99) mg/dL Albumin (3.5-5.0) g/dL 05/16/17 05/16/17 05/17/17 Range/Units 21:38 23:46 01:11 WBC (3.8-10.6) k/uL RBC (4.30-5.90) m/uL Hgb (13.0-17.5) gm/dL Hct (39.0-53.0) % MCV (80.0-100.0) fL Neutrophils # (1.3-7.7) k/uL Eosinophils # (0-0.7) k/uL Potassium (3.5-5.1) mmol/L BUN (9-20) mg/dL Creatinine (0.66-1.25) mg/dL Glucose (74-99) mg/dL POC Glucose (mg/dL) 145 H 123 H 160 H (75-99) mg/dL Albumin (3.5-5.0) g/dL 05/17/17 05/17/17 05/17/17 Range/Units 04:18 04:20 04:20 WBC 13.6 H (3.8-10.6) k/uL RBC 2.86 L (4.30-5.90) m/uL Hgb 9.7 L (13.0-17.5) gm/dL Hct 29.1 L (39.0-53.0) % MCV 101.6 H (80.0-100.0) fL Neutrophils # 10.3 H (1.3-7.7) k/uL Eosinophils # 0.8 H (0-0.7) k/uL Potassium (3.5-5.1) mmol/L BUN 106 H* (9-20) mg/dL Creatinine 2.40 H (0.66-1.25) mg/dL Glucose 163 H (74-99) mg/dL POC Glucose (mg/dL) 183 H (75-99) mg/dL Albumin 3.4 L (3.5-5.0) g/dL 05/17/17 05/17/17 05/17/17 Range/Units 07:04 09:08 11:00 WBC (3.8-10.6) k/uL RBC (4.30-5.90) m/uL Hgb (13.0-17.5) gm/dL Hct (39.0-53.0) % MCV (80.0-100.0) fL Neutrophils # (1.3-7.7) k/uL Eosinophils # (0-0.7) k/uL Potassium (3.5-5.1) mmol/L BUN (9-20) mg/dL Creatinine (0.66-1.25) mg/dL Glucose (74-99) mg/dL POC Glucose (mg/dL) 145 H 160 H 155 H (75-99) mg/dL Albumin (3.5-5.0) g/dL Microbiology - Last 24 Hours (Table) 05/12/17 21:20 Blood Culture - Preliminary Blood No Growth after 96 hours Assessment and Plan Plan: Assessment 1 right carotid endarterectomy and the patient is postop day #12 2 acute cardio pulmonary arrest. This is most like an acute pulmonary edema for by cardiac arrest and the patient had a downtime of at least 25 minutes. He received a total of 10mgrams epinephrine and bicarb requiring intubated on a mechanical ventilator. Successfully extubated 05/14/2017. He is alternating between BiPAP and 3 L/m per nasal cannula 3 CHF with an ejection fraction of less than 20% 4 suspected acute non-STEMI with ST segment depression and some mild troponin leak that peaked at 2.8 with underlying history of coronary artery disease 5 acute kidney injury, improving and the creatinine is down to 2.4 6 acute respiratory failure secondary to above, chest x-ray from today continues to show improvement in the volume status with some residual interstitial edema. 7 diabetes mellitus 8 possible hypoxic/anoxic encephalopathy suspected. computed tomography scan of the brain 05/14/2017 reveals an old small right posterior frontal lobe cortical infarct. There is evidence of a subacute lacunar infarct in the right internal capsule. The patient is awake and alert and following commands. He does have some residual left-sided weakness. 9 obstructive sleep apnea and on BiPAP on outpatient basis at a pressure of 21/ 17 10 hypertension, fluctuating blood pressure 11 hyperlipidemia 12 morbid obesity 13 gout 14 hematoma over the neck especially over the right anterior neck area with a clean incision, postsurgical To get further by the intake of anticoagulants 15 mild hematuria, recovered Plan Patient is doing well. The patient needs aggressive physical therapy. The patient will be kept on D5 water at a rate of 50 mL an hour. Monitor renal function. Advanced oral intake. Transfer this patient to telemetry unit. Removed Artline catheter. We'll continue to follow. BiPAP overnight.
--- NOTE | 2017-05-17 12:56 | P.PN ---
Subjective Progress Note Date: 05/17/17 This patient is a 76-year-old right-handed white male who was undergone a right carotid endarterectomy and is postoperative day #12 today. Patient is seen today in the intensive care unit where he has been recovering following cardiopulmonary arrest 2 days after his carotid surgery. He was sent for a computed tomography scan of the brain back on 05/14/2017 after his neurological exam reveals some left-sided weakness. The CAT scan of the brain revealed evidence of a subacute lacunar infarct in the right internal capsule. Patient is seen today in the intensive care unit and is quite awake and alert. He is conversing with his son who was at bedside. He does seem to be much more awake and is doing much better since the last few days. He does have significant left -sided weakness consistent with CAT scan findings of acute stroke. We are recommending a follow-up computed tomography scan of the brain to be done tomorrow for follow-up and comparison. The patient has remained hemodynamically stable. He was wearing his BiPAP overnight. Today he is only on 3 L nasal oxygen and is doing quite well with saturation of 97%. He continues to notice left-sided weakness and he will require aggressive physical therapy for further treatment. He may be also a candidate for subacute rehab once he is transferred out of the intensive care unit. The patient does show significant improvement with his cognitive functioning since being extubated. He is showing signs of significant improvement from a finding of anoxic encephalopathy following his cardiac arrest. We would recommend that he continue with aggressive PT/OT evaluations. We will continue to follow his progress closely today in the intensive care unit. Case was discussed at length with the patient and his son who is at bedside. All of their questions were answered and they are aware of our current treatment plan. Patient is being considered for transfer out of the intensive care unit to telemetry unit. We will continue close neurological follow-up with the patient during this admission. Objective - Vital Signs Vital signs: Vital Signs Temp 97.8 F 05/17/17 04:00 Pulse 58 L 05/17/17 11:12 Resp 16 05/17/17 07:00 BP 113/53 05/15/17 05:00 Pulse Ox 96 05/17/17 07:00 Intake & Output 05/16/17 05/17/17 05/17/17 17:59 06:59 18:59 Intake Total 16.733 Output Total Balance 16.733 Weight Intake: IV Dextrose 5% in Water 1, 000 ml @ 50 mls/hr IV . Q20H JOSÉ MIGUEL Rx#:[id number] KVO Intake, IV Titration 16.733 Amount Insulin Regular 100 unit 16.733 In Sodium Chloride 0.9% 100 ml @ Per Protocol IV .Q0M JOSÉ MIGUEL Rx#:[id number] Lipid Dextrose 5% in Water 1, 000 ml @ 50 mls/hr IV . Q20H JOSÉ MIGUEL Rx#:[id number] Output: Urine Other: Voiding Method ABP, PAP, CO, CI - Last Documented Arterial Blood Pressure 146/44 - Exam Physical examination: PHYSICAL EXAMINATION: Patient is resting comfortably in bed. He was extubated yesterday. VITAL SIGNS: Blood pressure is [145/45]. Heart rate is [57]. Respiration is [15] . Temperature is [97.8]. HEENT: Head is atraumatic, neck is supple, there were no carotid bruits. CHEST: Lungs are clear to auscultation and percussion. CARDIAC: S1, S2 normal rate and rhythm. There is no murmur. ABDOMEN: Soft and nontender. Bowel sounds are present. EXTREMITIES: There is no pedal edema. Peripheral pulses are present. Neurological examination: Patient is examined today in the intensive care unit. He is only on nasal oxygen at this time at 3 L. He is much more awake and alert today. He is following simple commands. Patient is much more awake and alert and is making full sentences. Family is noted significant improvement in his overall mental status. Cranial nerves II through XII are grossly intact. Motor examination reveals left-sided hemiparesis 3+/5 on the left side. The deep tendon reflexes are 1+ and symmetric. Plantar responses flexor bilaterally. Coordination and gait cannot be assessed in this patient at this time. - Labs CBC & Chem 7: 05/17/17 04:20 05/17/17 04:20 Labs: Abnormal Lab Results - Last 24 Hours (Table) 05/16/17 05/16/17 05/16/17 Range/Units 12:13 14:13 15:50 WBC (3.8-10.6) k/uL RBC (4.30-5.90) m/uL Hgb (13.0-17.5) gm/dL Hct (39.0-53.0) % MCV (80.0-100.0) fL Neutrophils # (1.3-7.7) k/uL Eosinophils # (0-0.7) k/uL Potassium (3.5-5.1) mmol/L BUN (9-20) mg/dL Creatinine (0.66-1.25) mg/dL Glucose (74-99) mg/dL POC Glucose (mg/dL) 189 H 149 H 154 H (75-99) mg/dL Albumin (3.5-5.0) g/dL 05/16/17 05/16/17 05/16/17 Range/Units 16:50 18:09 21:38 WBC (3.8-10.6) k/uL RBC (4.30-5.90) m/uL Hgb (13.0-17.5) gm/dL Hct (39.0-53.0) % MCV (80.0-100.0) fL Neutrophils # (1.3-7.7) k/uL Eosinophils # (0-0.7) k/uL Potassium 3.4 L (3.5-5.1) mmol/L BUN (9-20) mg/dL Creatinine (0.66-1.25) mg/dL Glucose (74-99) mg/dL POC Glucose (mg/dL) 178 H 145 H (75-99) mg/dL Albumin (3.5-5.0) g/dL 05/16/17 05/17/17 05/17/17 Range/Units 23:46 01:11 04:18 WBC (3.8-10.6) k/uL RBC (4.30-5.90) m/uL Hgb (13.0-17.5) gm/dL Hct (39.0-53.0) % MCV (80.0-100.0) fL Neutrophils # (1.3-7.7) k/uL Eosinophils # (0-0.7) k/uL Potassium (3.5-5.1) mmol/L BUN (9-20) mg/dL Creatinine (0.66-1.25) mg/dL Glucose (74-99) mg/dL POC Glucose (mg/dL) 123 H 160 H 183 H (75-99) mg/dL Albumin (3.5-5.0) g/dL 05/17/17 05/17/17 05/17/17 Range/Units 04:20 04:20 07:04 WBC 13.6 H (3.8-10.6) k/uL RBC 2.86 L (4.30-5.90) m/uL Hgb 9.7 L (13.0-17.5) gm/dL Hct 29.1 L (39.0-53.0) % MCV 101.6 H (80.0-100.0) fL Neutrophils # 10.3 H (1.3-7.7) k/uL Eosinophils # 0.8 H (0-0.7) k/uL Potassium (3.5-5.1) mmol/L BUN 106 H* (9-20) mg/dL Creatinine 2.40 H (0.66-1.25) mg/dL Glucose 163 H (74-99) mg/dL POC Glucose (mg/dL) 145 H (75-99) mg/dL Albumin 3.4 L (3.5-5.0) g/dL 05/17/17 05/17/17 Range/Units 09:08 11:00 WBC (3.8-10.6) k/uL RBC (4.30-5.90) m/uL Hgb (13.0-17.5) gm/dL Hct (39.0-53.0) % MCV (80.0-100.0) fL Neutrophils # (1.3-7.7) k/uL Eosinophils # (0-0.7) k/uL Potassium (3.5-5.1) mmol/L BUN (9-20) mg/dL Creatinine (0.66-1.25) mg/dL Glucose (74-99) mg/dL POC Glucose (mg/dL) 160 H 155 H (75-99) mg/dL Albumin (3.5-5.0) g/dL Microbiology - Last 24 Hours (Table) 05/12/17 21:20 Blood Culture - Preliminary Blood No Growth after 96 hours Assessment and Plan (1) Cardiopulmonary arrest with successful resuscitation Current Visit: Yes Status: Acute Code(s): I46.9 - CARDIAC ARREST, CAUSE UNSPECIFIED SNOMED Code(s): 337050817 (2) Anoxic encephalopathy Current Visit: Yes Status: Acute Code(s): G93.1 - ANOXIC BRAIN DAMAGE, NOT ELSEWHERE CLASSIFIED SNOMED Code(s): 629916860 (3) History of right-sided carotid endarterectomy Current Visit: Yes Status: Acute Code(s): Z98.890 - OTHER SPECIFIED POSTPROCEDURAL STATES SNOMED Code(s): 675540219 (4) Diabetes mellitus type 2 in obese Current Visit: Yes Status: Chronic Code(s): E11.69 - TYPE 2 DIABETES MELLITUS WITH OTHER SPECIFIED COMPLICATION; E66.9 - OBESITY, UNSPECIFIED SNOMED Code(s): 14287920 (5) Paroxysmal atrial fibrillation Current Visit: Yes Status: Chronic Code(s): I48.0 - PAROXYSMAL ATRIAL FIBRILLATION SNOMED Code(s): 495141203 Plan: This patient is a 76-year-old male who was being seen today in the intensive care unit and is postoperative day #12 following right carotid endarterectomy. Patient suffered cardiac arrest 2 days following this surgery. He has made very good progress despite having a extensive downtime of at least 20-30 minutes. His clinical findings were consistent with anoxic encephalopathy following cardiac arrest. Today he is noted to be showing significant improvement in his mentation. Patient was extubated on 05/14/2017. He was noted to show evidence of mild left-sided weakness following extubation initially and was sent for a computed tomography scan of the brain. Computed tomography scan of the brain was done on 05/14/2017 and revealed evidence of a subacute lacunar infarct involving the right internal capsule. He does continue to demonstrate left-sided hemiparesis on exam. This is consistent with acute stroke. We are recommending aggressive PT OT evaluation for the patient. He is continuing to show improvement in his overall cognitive functioning and is much more awake and alert today. He is conversant with all family members. Patient may be of candidate for subacute rehab once he is medically stable. We will await follow-up computed tomography scan of the brain to see if there is been any other interval change. Clinically he is making good progress and is waiting transfer to the telemetry unit soon. We will continue close neurological follow-up with this patient in the intensive care unit.
[2017-05-17] MEDS: PIPERACILLIN-TAZOBACTAM 3.375 GM in DEXTROSE/WATER 1 50ML.BAG IVPB SCH ×3 (13:12→22:03)
[2017-05-17 13:13] LABS: Glucose,Whole Blood 160 mg/dL (75-99)
[2017-05-17 15:19] LABS: Glucose,Whole Blood 173 mg/dL (75-99)
--- NOTE | 2017-05-17 15:35 | P.PN ---
Subjective Progress Note Date: 05/17/17 Principal diagnosis: Patient underwent a complete right carotid endarterectomy , on the evening of postop day 3 he underwent complete cardiopulmonary arrest, was resuscitated for approximately 20 minutes, the pulse was restored patient was intubated and remained on the vent. Patient was seen today on 05/16/2017 was extubated yesterday I spoke to him he responded appropriately to questions and is moving all fours however he has some reduction in mobility on the left consistent with a right-sided stroke Today's date is 05/17/2017 Patient is awake alert on Ventimask again responding appropriately to questions sugars were well controlled at 140s patient is currently doing well left side again is somewhat slow to respond as patient continues to recover and improve would consider inpatient rehab at a stroke facility such as [facility] stroke unit or rehab [facility] Patient was extubated last night was seen today awake alert spending appropriately to questions patient is somewhat limited with motion on the left side secondary to a rate cerebral hemispheric stroke I expect patient to continue to improve we will reevaluate in the morning Objective - Vital Signs Vital signs: Vital Signs Temp 98.3 F 05/17/17 12:00 Pulse 58 L 05/17/17 15:18 Resp 17 05/17/17 13:00 BP 125/58 05/17/17 13:00 Pulse Ox 97 05/17/17 13:00 Intake & Output 05/16/17 05/17/17 05/17/17 17:59 06:59 18:59 Intake Total 559.000 Output Total 1070 Balance -511.000 Weight Intake: IV 530.0 Dextrose 5% in Water 1, 400 000 ml @ 50 mls/hr IV . Q20H JOSÉ MIGUEL Rx#:[id number] KVO 80 Piperacillin-Tazobactam 3 50.0 .375 gm In Dextrose/Water 1 50ml.bag @ 12.5 mls/hr IVPB Q12H JOSÉ MIGUEL Rx#: [id number] Intake, IV Titration 29.000 Amount Insulin Regular 100 unit 29.000 In Sodium Chloride 0.9% 100 ml @ Per Protocol IV .Q0M JOSÉ MIGUEL Rx#:[id number] Lipid Dextrose 5% in Water 1, 000 ml @ 50 mls/hr IV . Q20H JOSÉ MIGUEL Rx#:[id number] Output: Urine 1070 Other: Voiding Method ABP, PAP, CO, CI - Last Documented Arterial Blood Pressure 165/47 - Exam General: Patient is extubated awake alert responding appropriately to questions on 50% Ventimask HEENT: [PERRL. EOMI. No pharyngeal erythema or exudate.] Neck: Significant edema to the neck ecchymosis significant on the right side secondary to carotid endarterectomy postoperative day #4 Cardiac: [Heart regular in rate and rhythm. No S3. No S4. No clicks, rubs. No murmur.] Lungs: Breath sounds appear improved with auscultation bilaterally Abdomen: [No mass. No organomegaly. Bowel sounds presnt and normoactive in all 4 quadrants.] Extremes: 1-2+ edema all 4 extremes : [] Musculoskeletal: [No joint erythema, edema or tenderness.] Skin: [No rash.] Neurologic: [No lateralizing deficits. CN II - XII grossly intact.] Patient is moving all extremes however left side seems to be moving slower and with less strength consistent with a right hemispheric stroke Lymphatic: [No adenopathy.] - Labs CBC & Chem 7: 05/17/17 04:20 05/17/17 04:20 Labs: Abnormal Lab Results - Last 24 Hours (Table) 05/16/17 05/16/17 05/16/17 Range/Units 15:50 16:50 18:09 WBC (3.8-10.6) k/uL RBC (4.30-5.90) m/uL Hgb (13.0-17.5) gm/dL Hct (39.0-53.0) % MCV (80.0-100.0) fL Neutrophils # (1.3-7.7) k/uL Eosinophils # (0-0.7) k/uL Potassium 3.4 L (3.5-5.1) mmol/L BUN (9-20) mg/dL Creatinine (0.66-1.25) mg/dL Glucose (74-99) mg/dL POC Glucose (mg/dL) 154 H 178 H (75-99) mg/dL Albumin (3.5-5.0) g/dL 05/16/17 05/16/17 05/17/17 Range/Units 21:38 23:46 01:11 WBC (3.8-10.6) k/uL RBC (4.30-5.90) m/uL Hgb (13.0-17.5) gm/dL Hct (39.0-53.0) % MCV (80.0-100.0) fL Neutrophils # (1.3-7.7) k/uL Eosinophils # (0-0.7) k/uL Potassium (3.5-5.1) mmol/L BUN (9-20) mg/dL Creatinine (0.66-1.25) mg/dL Glucose (74-99) mg/dL POC Glucose (mg/dL) 145 H 123 H 160 H (75-99) mg/dL Albumin (3.5-5.0) g/dL 05/17/17 05/17/17 05/17/17 Range/Units 04:18 04:20 04:20 WBC 13.6 H (3.8-10.6) k/uL RBC 2.86 L (4.30-5.90) m/uL Hgb 9.7 L (13.0-17.5) gm/dL Hct 29.1 L (39.0-53.0) % MCV 101.6 H (80.0-100.0) fL Neutrophils # 10.3 H (1.3-7.7) k/uL Eosinophils # 0.8 H (0-0.7) k/uL Potassium (3.5-5.1) mmol/L BUN 106 H* (9-20) mg/dL Creatinine 2.40 H (0.66-1.25) mg/dL Glucose 163 H (74-99) mg/dL POC Glucose (mg/dL) 183 H (75-99) mg/dL Albumin 3.4 L (3.5-5.0) g/dL 05/17/17 05/17/17 05/17/17 Range/Units 07:04 09:08 11:00 WBC (3.8-10.6) k/uL RBC (4.30-5.90) m/uL Hgb (13.0-17.5) gm/dL Hct (39.0-53.0) % MCV (80.0-100.0) fL Neutrophils # (1.3-7.7) k/uL Eosinophils # (0-0.7) k/uL Potassium (3.5-5.1) mmol/L BUN (9-20) mg/dL Creatinine (0.66-1.25) mg/dL Glucose (74-99) mg/dL POC Glucose (mg/dL) 145 H 160 H 155 H (75-99) mg/dL Albumin (3.5-5.0) g/dL 05/17/17 05/17/17 Range/Units 13:11 15:15 WBC (3.8-10.6) k/uL RBC (4.30-5.90) m/uL Hgb (13.0-17.5) gm/dL Hct (39.0-53.0) % MCV (80.0-100.0) fL Neutrophils # (1.3-7.7) k/uL Eosinophils # (0-0.7) k/uL Potassium (3.5-5.1) mmol/L BUN (9-20) mg/dL Creatinine (0.66-1.25) mg/dL Glucose (74-99) mg/dL POC Glucose (mg/dL) 160 H 173 H (75-99) mg/dL Albumin (3.5-5.0) g/dL Microbiology - Last 24 Hours (Table) 05/12/17 21:20 Blood Culture - Preliminary Blood No Growth after 96 hours Assessment and Plan (1) Cardiopulmonary arrest with successful resuscitation Narrative/Plan: Patient patient extubated breathing on her own and responding appropriately to questions Current Visit: Yes Status: Acute Code(s): I46.9 - CARDIAC ARREST, CAUSE UNSPECIFIED SNOMED Code(s): 249581080 (2) History of coronary artery disease Narrative/Plan: Status post successful right carotid endarterectomy with complication of cardio pulmonary arrest with successful resuscitation Patient currently extubated and responding appropriately Current Visit: Yes Status: Chronic Code(s): Z86.79 - PERSONAL HISTORY OF OTHER DISEASES OF THE CIRCULATORY SYSTEM SNOMED Code(s): 381545415 (3) Stenosis of right carotid artery Narrative/Plan: Right-sided endarterectomy postoperative day 8 Current Visit: Yes Status: Chronic Code(s): I65.21 - OCCLUSION AND STENOSIS OF RIGHT CAROTID ARTERY SNOMED Code(s): 070217384024124 Plan: Family is alert to the critical acuity of patient's condition they've agreed to allow patient to become a DO NOT RESUSCITATE however they are not ready to withdrawal port at this time awaiting CAT scan of the brain to be performed once patient is stable enough to travel to CAT scan We'll continue to follow prognosis critical Time with Patient: Greater than 30
[2017-05-17 16:59] LABS: Glucose,Whole Blood 185 mg/dL (75-99)
--- NOTE | 2017-05-17 17:23 | P.PN ---
Addendum entered and electronically signed by Marcio Garcia NP-C 05/17/17 17: 36: Due to the patient's unequal pupils and disorientation we will obtain a repeat CT of his brain without contrast. We will also get a stat arterial blood gas, and chest x-ray. We have discontinued his morphine. Original Note: Subjective Progress Note Date: 05/17/17 Principal diagnosis: Hemodynamically severe right internal carotid artery stenosis, hypertension, hyperlipidemia, gout, diabetes mellitus type 2, obstructive sleep apnea with home BiPAP, history of paroxysmal atrial fibrillation on Pat home, history of coronary artery disease, GERD, and osteoarthritis. POD #10, elective right carotid endarterectomy with bovine pericardial patch angioplasty. Postoperative hematoma present at surgical site, an expected outcome given CPR during resuscitation as well as long-standing history of anticoagulation. Status post cardiopulmonary arrest with resuscitation, suspect non-ST elevated myocardial infarction. Acute systolic heart failure with an ejection fraction of less than 20%. Acute kidney injury likely secondary to cardiac arrest with 30 minutes down time. Patient is currently laying in bed with his head elevated 45. He is in no acute distress. He is complaining of pain 10 out of 10 to his back. The patient is alert but somewhat restless. He remains having some left-sided weakness but is moving all 4 extremities. His is at his bedside, questions answered to the best of my ability. When asked the patient what year was he said it is 1965. Attempts made to reorient patient to time. Objective - Vital Signs Vital signs: Vital Signs Temp 98.3 F 05/17/17 12:00 Pulse 58 L 05/17/17 15:18 Resp 20 05/17/17 15:00 BP 116/56 05/17/17 15:00 Pulse Ox 94 L 05/17/17 15:00 Intake & Output 05/16/17 05/17/17 05/17/17 17:59 06:59 18:59 Intake Total 562.583 Output Total 1070 Balance -507.417 Weight Intake: IV 530.0 Dextrose 5% in Water 1, 400 000 ml @ 50 mls/hr IV . Q20H JOSÉ MIGUEL Rx#:[id number] KVO 80 Piperacillin-Tazobactam 3 50.0 .375 gm In Dextrose/Water 1 50ml.bag @ 12.5 mls/hr IVPB Q12H JOSÉ MIGUEL Rx#: [id number] Intake, IV Titration 32.583 Amount Insulin Regular 100 unit 32.583 In Sodium Chloride 0.9% 100 ml @ Per Protocol IV .Q0M JOSÉ MIGUEL Rx#:[id number] Lipid Dextrose 5% in Water 1, 000 ml @ 50 mls/hr IV . Q20H JOSÉ MIGUEL Rx#:[id number] Output: Urine 1070 Other: Voiding Method Indwelling Catheter ABP, PAP, CO, CI - Last Documented Arterial Blood Pressure 165/47 - Constitutional General appearance: Present: cooperative, no acute distress, obese - EENT Eyes: Present: abnormal pupil (Left pupil is larger than his right pupil.) ENT: Present: hearing grossly normal - Neck Details: Neck is supple, no lymphadenopathy. Ecchymosis to his neck present. Soft to touch. - Respiratory Details: Lung sounds essentially clear throughout, diminished to his bilateral bases. Respirations are symmetrical and nonlabored. Oxygen saturation are 94% on 4 L nasal cannula. - Cardiovascular Details: Regular rhythm and rate. S1 and S2 present, negative for S3, gallop or murmur. Remote telemetry showing sinus bradycardia heart rate 59. Knee-high [place] hose and sequential compression devices in place to his bilateral lower extremities. No edema present. - Gastrointestinal Gastrointestinal Comment(s): Abdomen is soft, nontender and nondistended. Active bowel sounds to all 4 abdominal quadrants. No guarding or rigidity. - Genitourinary Genitourinary Comment(s): Boothe catheter for accurate I&O. Clear yellow urine. Adequate urine output. - Integumentary Integumentary Comment(s): Skin is warm and dry. No clubbing or cyanosis. Large ecchymosis to his neck surrounding his incision. Right neck incision clean dry and well approximated. No drainage present. - Neurologic Neurologic Comment(s): Left pupil is greater than his right pupil. - Musculoskeletal Musculoskeletal: Present: left sided weakness - Psychiatric Psychiatric Comment(s): Disoriented to time. Psychiatric: Present: appropriate affect, intact judgment & insight - Allied health notes Allied health notes reviewed: nursing - Labs CBC & Chem 7: 05/17/17 04:20 05/17/17 04:20 Labs: Abnormal Lab Results - Last 24 Hours (Table) 05/16/17 05/16/17 05/16/17 Range/Units 16:50 18:09 21:38 WBC (3.8-10.6) k/uL RBC (4.30-5.90) m/uL Hgb (13.0-17.5) gm/dL Hct (39.0-53.0) % MCV (80.0-100.0) fL Neutrophils # (1.3-7.7) k/uL Eosinophils # (0-0.7) k/uL Potassium 3.4 L (3.5-5.1) mmol/L BUN (9-20) mg/dL Creatinine (0.66-1.25) mg/dL Glucose (74-99) mg/dL POC Glucose (mg/dL) 178 H 145 H (75-99) mg/dL Albumin (3.5-5.0) g/dL 05/16/17 05/17/17 05/17/17 Range/Units 23:46 01:11 04:18 WBC (3.8-10.6) k/uL RBC (4.30-5.90) m/uL Hgb (13.0-17.5) gm/dL Hct (39.0-53.0) % MCV (80.0-100.0) fL Neutrophils # (1.3-7.7) k/uL Eosinophils # (0-0.7) k/uL Potassium (3.5-5.1) mmol/L BUN (9-20) mg/dL Creatinine (0.66-1.25) mg/dL Glucose (74-99) mg/dL POC Glucose (mg/dL) 123 H 160 H 183 H (75-99) mg/dL Albumin (3.5-5.0) g/dL 05/17/17 05/17/17 05/17/17 Range/Units 04:20 04:20 07:04 WBC 13.6 H (3.8-10.6) k/uL RBC 2.86 L (4.30-5.90) m/uL Hgb 9.7 L (13.0-17.5) gm/dL Hct 29.1 L (39.0-53.0) % MCV 101.6 H (80.0-100.0) fL Neutrophils # 10.3 H (1.3-7.7) k/uL Eosinophils # 0.8 H (0-0.7) k/uL Potassium (3.5-5.1) mmol/L BUN 106 H* (9-20) mg/dL Creatinine 2.40 H (0.66-1.25) mg/dL Glucose 163 H (74-99) mg/dL POC Glucose (mg/dL) 145 H (75-99) mg/dL Albumin 3.4 L (3.5-5.0) g/dL 05/17/17 05/17/17 05/17/17 Range/Units 09:08 11:00 13:11 WBC (3.8-10.6) k/uL RBC (4.30-5.90) m/uL Hgb (13.0-17.5) gm/dL Hct (39.0-53.0) % MCV (80.0-100.0) fL Neutrophils # (1.3-7.7) k/uL Eosinophils # (0-0.7) k/uL Potassium (3.5-5.1) mmol/L BUN (9-20) mg/dL Creatinine (0.66-1.25) mg/dL Glucose (74-99) mg/dL POC Glucose (mg/dL) 160 H 155 H 160 H (75-99) mg/dL Albumin (3.5-5.0) g/dL 05/17/17 05/17/17 Range/Units 15:15 16:39 WBC (3.8-10.6) k/uL RBC (4.30-5.90) m/uL Hgb (13.0-17.5) gm/dL Hct (39.0-53.0) % MCV (80.0-100.0) fL Neutrophils # (1.3-7.7) k/uL Eosinophils # (0-0.7) k/uL Potassium (3.5-5.1) mmol/L BUN (9-20) mg/dL Creatinine (0.66-1.25) mg/dL Glucose (74-99) mg/dL POC Glucose (mg/dL) 173 H 185 H (75-99) mg/dL Albumin (3.5-5.0) g/dL Microbiology - Last 24 Hours (Table) 05/12/17 21:20 Blood Culture - Preliminary Blood No Growth after 96 hours Assessment and Plan (1) Stenosis of right carotid artery Current Visit: Yes Status: Chronic Code(s): I65.21 - OCCLUSION AND STENOSIS OF RIGHT CAROTID ARTERY SNOMED Code(s): 230568377826556 (2) Hypertension Current Visit: Yes Status: Chronic Code(s): I10 - ESSENTIAL (PRIMARY) HYPERTENSION SNOMED Code(s): 90038890 (3) Hyperlipidemia Current Visit: Yes Status: Chronic Code(s): E78.5 - HYPERLIPIDEMIA, UNSPECIFIED SNOMED Code(s): 78155735 (4) BPH (benign prostatic hyperplasia) Current Visit: Yes Status: Acute Code(s): N40.0 - BENIGN PROSTATIC HYPERPLASIA WITHOUT LOWER URINRY TRACT SYMP SNOMED Code(s): 541201546 (5) Paroxysmal atrial fibrillation Current Visit: Yes Status: Chronic Code(s): I48.0 - PAROXYSMAL ATRIAL FIBRILLATION SNOMED Code(s): 293850003 (6) Gout Current Visit: Yes Status: Chronic Code(s): M10.9 - GOUT, UNSPECIFIED SNOMED Code(s): 58286747 (7) GERD (gastroesophageal reflux disease) Current Visit: Yes Status: Chronic Code(s): K21.9 - GASTRO-ESOPHAGEAL REFLUX DISEASE WITHOUT ESOPHAGITIS SNOMED Code(s): 898588966 (8) Obstructive sleep apnea Current Visit: Yes Status: Chronic Code(s): G47.33 - OBSTRUCTIVE SLEEP APNEA (ADULT) (PEDIATRIC) SNOMED Code(s): 04731467 (9) Osteoarthritis Current Visit: Yes Status: Acute Code(s): M19.90 - UNSPECIFIED OSTEOARTHRITIS, UNSPECIFIED SITE SNOMED Code(s): 074750201 (10) History of coronary artery disease Current Visit: Yes Status: Chronic Code(s): Z86.79 - PERSONAL HISTORY OF OTHER DISEASES OF THE CIRCULATORY SYSTEM SNOMED Code(s): 708428990 (11) Diabetes mellitus type 2 in obese Current Visit: Yes Status: Chronic Code(s): E11.69 - TYPE 2 DIABETES MELLITUS WITH OTHER SPECIFIED COMPLICATION; E66.9 - OBESITY, UNSPECIFIED SNOMED Code(s): 92883029 (12) Morbid obesity Current Visit: Yes Status: Chronic Code(s): E66.01 - MORBID (SEVERE) OBESITY DUE TO EXCESS CALORIES SNOMED Code(s): 558466992 (13) Neuropathy Current Visit: Yes Status: Acute Code(s): G62.9 - POLYNEUROPATHY, UNSPECIFIED SNOMED Code(s): 328377716 Plan: 1. Continue current medical management per primary care service. 2. Cardiology management for post myocardial infarction, cardiopulmonary arrest. 3. Wean O2 as tolerated. Encourage incentive spirometry use 10 times every hour while awake. 4. GI/DVT prophylaxis. 5. Will continue to monitor daily labs and x-rays. We will check uric acid level. 6. Maintain stable blood pressure. 7. Increase activity as tolerated. PT/OT following. Patient will need aggressive physical therapy when discharged. 8. Patient may have sips of water with meds and ice chips for now. Monitor swallowing. Speech therapy like to do modified swallow on Thursday05/18/2017. 9. Right carotid endarterectomy site remains stable. 10. More recommendations to follow as patient progresses in his care. Time with Patient: Greater than 30
[2017-05-17 17:51] LABS: ABG Base Excess -0.2 mmol/L; ABG HCO3 25 mmol/L (21-25); ABG Oxygen Saturation 95.9 % (94-97); ABG PCO2 43 mmHg (35-45); ABG PH 7.37 (7.35-7.45); ABG PO2 86 mmHg (83-108); ABG TCO2 26 mmol/L (19-24)
--- NOTE | 2017-05-17 18:34 | CT ---
EXAMINATION TYPE: CT brain wo con DATE OF EXAM: 05/17/2017 COMPARISON: 05/14/2017 HISTORY: Patient poor historian. Unequal pupils. CT DLP: 866.6 mGycm Automated exposure control for dose reduction was used. TECHNIQUE: CT scan of the head is performed without contrast. FINDINGS: There is no acute intracranial hemorrhage or midline shift identified. There is diffuse v entricular and sulcal prominence consistent with diffuse age-related cerebral atrophy. There is low- attenuation in the periventricular white matter consistent with chronic small vessel ischemic change. Additional focal area of encephalomalacia within the right frontal lobe is unchanged from the prior exam and is sequela of prior injury. Dystrophic calcifications are noted of the right basal ganglia. Mild mucosal thickening is seen within the ethmoid sinuses. The globes are intact and the remaining visualized sinuses are clear. IMPRESSION: No acute intracranial hemorrhage or midline shift. There is diffuse age-related cerebra l atrophy and chronic small vessel ischemic change noted. Encephalomalacia in the right frontal lobe from prior infarct. MRI could be performed given the patient's stated unequal pupils.
--- NOTE | 2017-05-17 18:36 | XR ---
EXAMINATION TYPE: XR chest 1V portable DATE OF EXAM: 05/17/2017 COMPARISON: 05/16/2017 HISTORY: Worsening cough TECHNIQUE: Single frontal view of the chest is obtained. FINDINGS: Retrocardiac opacity may represent a small pleural effusion, atelectasis or pneumonia. Enl argement of the hilar vasculature suggests underlying pulmonary arterial hypertension. Cardiac silhou ette is again mildly enlarged. Osseous structures are grossly intact. The cardiac silhouette size is within normal limits. The osseous structures are intact. IMPRESSION: 1. Retrocardiac opacity that may represent a small pleural effusion with atelectasis and/or pneumonia . 2. Enlargement pulmonary vasculature may relate to underlying pulmonary arterial hypertension.
[2017-05-17 19:12] LABS: Glucose,Whole Blood 141 mg/dL (75-99)
[2017-05-17] MEDS: ACETAMINOPHEN IV (For NPO) 1,000 MG in EMPTY BAG 1 BAG IVPB SCH (20:53)
[2017-05-17 21:03] LABS: Glucose,Whole Blood 140 mg/dL (75-99)
[2017-05-17] MEDS: INSULIN REGULAR 100 UNIT in SODIUM CHLORIDE 0.9% 100 ML IV SCH (21:10)
[2017-05-17] MEDS ORDERED: IPRATROPIUM-ALBUTEROL 3 ML NEB INHALATION PRN (22:16)
[2017-05-17 23:02] LABS: Glucose,Whole Blood 156 mg/dL (75-99)
[2017-05-18 00:57] LABS: Glucose,Whole Blood 157 mg/dL (75-99)
[2017-05-18] MEDS: METOLAZONE 5 MG TAB PO SCH (01:19)
[2017-05-18] MEDS: ACETAMINOPHEN IV (For NPO) 1,000 MG in EMPTY BAG 1 BAG IVPB SCH ×3 (02:28→12:06)
[2017-05-18 03:22] LABS: Glucose,Whole Blood 153 mg/dL (75-99)
[2017-05-18 04:57] LABS: Glucose,Whole Blood 140 mg/dL (75-99)
[2017-05-18] MEDS: PIPERACILLIN-TAZOBACTAM 3.375 GM in DEXTROSE/WATER 1 50ML.BAG IVPB SCH ×3 (04:59→19:48)
[2017-05-18] MEDS ORDERED: SODIUM CHLORIDE 0.9% 1,000 ML IV SCH (06:00)
[2017-05-18 06:17] LABS: Basophils # (A) 0.1 k/uL (0-0.2); Basophils % (A) 0 %; Eosinophils # (A) 0.6 k/uL (0-0.7); Eosinophils % (A) 5 %; HCT 30.3 % (39.0-53.0); HGB 9.8 gm/dL (13.0-17.5); Lymphocytes # (A) 1.1 k/uL (1.0-4.8); Lymphocytes % (A) 9 %; MCHC 32.4 g/dL (31.0-37.0); MCV 101.6 fL (80.0-100.0); Macrocytosis Slight; Mean Platelet Volume 7.9; Monocytes # (A) 0.6 k/uL (0-1.0); Monocytes % (A) 5 %; Neutrophils # (A) 9.4 k/uL (1.3-7.7); Neutrophils % (A) 78 %; Platelet Count 452 k/uL (150-450); RBC 2.98 m/uL (4.30-5.90); RDW 14.4 % (11.5-15.5)
[2017-05-18] MEDS: CARVEDILOL 12.5 MG TAB PO SCH ×2 (06:37→17:18)
[2017-05-18] MEDS: INSULIN ASPART 100 UNIT/ML 1 ML 10 ML VIAL SQ SCH ×4 (06:43→21:26)
[2017-05-18 06:52] LABS: Albumin 3.7 g/dL (3.5-5.0); Calcium 9.2 mg/dL (8.4-10.2); Potassium 3.7 mmol/L (3.5-5.1); Total Bilirubin 1.1 mg/dL (0.2-1.3); Total Protein 7.1 g/dL (6.3-8.2); Uric Acid 7.6 mg/dL (3.5-8.5)
--- NOTE | 2017-05-18 08:34 | CT ---
EXAMINATION TYPE: CT brain wo con DATE OF EXAM: 05/18/2017 COMPARISON: 05/17/2017 HISTORY: 76-year-old male subacute stroke right brain, Follow up study TECHNIQUE: Examination was done in axial plane without intravenous contrast. Coronal and sagittal r econstructions performed. CT DLP: 1162.80 mGycm Automated exposure control for dose reduction was used. FINDINGS: Now seen is focal cortical and subcortical hypodensity lateral and posterior right frontal lobe, refe r to axial images 38 through 41. Mild generalized supratentorial volume loss.. Benign basal ganglioni c calcifications. No evidence for acute intracranial hemorrhage, mass, mass effect, midline shift, or extra-axial fluid collection. No hydrocephalus. No effacement of cerebral sulci or basal subarachnoid cisterns. Minimal opacification inferior left mastoid air cells. Orbits and globes are intact. Mastoid air cell s are partially pneumatized. IMPRESSION: Focal cortical and subcortical hypodensity posterior right frontal lobe is now seen compatible with s ubacute infarct. No acute intracranial hemorrhage or midline shift.
[2017-05-18] MEDS: IPRATROPIUM-ALBUTEROL 3 ML NEB INHALATION SCH ×4 (08:50→19:18)
[2017-05-18] MEDS: PANTOPRAZOLE 40 MG/10 ML VIAL IVP SCH (09:12)
[2017-05-18] MEDS: ASPIRIN 325 MG TAB PO SCH (09:12)
[2017-05-18] MEDS: COLCHICINE 0.6 MG TAB PO SCH (09:12)
[2017-05-18] MEDS: SENNOSIDES-DOCUSATE SODIUM 1 EACH TAB PO SCH ×2 (09:13→21:26)
--- NOTE | 2017-05-18 11:34 | P.CONS ---
History of Present Illness - Chief Complaint Medical debility - History of Present Illness I had the op to see patient for inpatient rehab consultation with regard to medical debility. He was admitted May 06 for right carotid endarterectomy. Seen in ICU by Dr. Kinney. Patient did sever cardiac arrest a. Then seen by Dr. Hollins who notes acute kidney injury related to rest. Seen by Dr. Leonela Smith who notes anoxic encephalopathy related to rest. Most recent head CT demonstrates right frontal hypoattenuation. Chest x-rays negative but T -spine spurring noted. Seen by speech therapy who notes swallow bedside within functional with. MBS to be done. PT perform bedside activity only patient fatigues. OT prescribed. Previous functional history: Patient unable to give history secondary to mental status confusion. He is a 76-year-old white male, patient of Dr. Mckenzie. Review of Systems Review of systems: Patient unable to answer questions for ROS and gleamed from chart and exam patient. ENT: Denies sneezes or discharge. Eyes: Denies discharge or photophobia. Cardiac: Denies chest pain or palpitation. Pulmonary: Denies cough or shortness of breath. Gastrointestinal: Denies nausea, emesis, constipation, diarrhea. Genitourinary: Denies discharge or frequency. Musculoskeletal: Denies muscle or bone aches. Neurologic: General confusion. Endocrine: Denies shakes or sweats. Oncology: Denies cancers. Dermatologic: Denies rash, itching, pruritus. ALLERGY/immunology: Denies sneezes, rashes. Past Medical History Past Medical History: Atrial Fibrillation, Coronary Artery Disease (CAD), Diabetes Mellitus, GERD/Reflux, Hyperlipidemia, Hypertension, Osteoarthritis (OA ), Sleep Apnea/CPAP/BIPAP Additional Past Medical History / Comment(s): pericardial effusion, gout, blockage [place] carotid arteries, neuropathy, diverticulitis, insulin pump, uses a cane- wheelchair for distance. edema [place] feet History of Any Multi-Drug Resistant Organisms: None Reported Past Surgical History: Cardiac Ablation, Heart Catheterization, Orthopedic Surgery Additional Past Surgical History / Comment(s): carpal tunnel rt wrist, rt knee replacement, [place] hip replacement, drainage for pericaridal effusion, cardioversion, arthroscopy sh[place] knees Past Anesthesia/Blood Transfusion Reactions: Motion Sickness Past Psychological History: No Psychological Hx Reported Smoking Status: Never smoker Past Alcohol Use History: None Reported Past Drug Use History: None Reported - Past Family History Mother Family Medical History: No Reported History Medications and Allergies Home Medications Medication Instructions Recorded Confirmed Type Acetaminophen Tab [Tylenol Tab] 650 mg PO Q4H PRN 03/04/17 05/06/17 History Allopurinol [Zyloprim] 300 mg PO DAILY@1200 03/04/17 05/06/17 History Carvedilol [Coreg] 12.5 mg PO DAILY@1200,2330 03/04/17 05/06/17 History Colchicine [Colcrys] 0.6 mg PO BID PRN 03/04/17 05/06/17 History Furosemide [Lasix] 80 mg PO DAILY@1200,1800 03/04/17 05/06/17 History INSULIN LISPRO (For Pump) [humaLOG 0.01 units SQ-PUMP CONTINUOUS 03/04/17 History (For Pump)] Ibuprofen [Motrin] 800 mg PO TID PRN 03/04/17 05/06/17 History Lisinopril [Zestril] 2.5 mg PO HS 03/04/17 05/06/17 History Meclizine [Antivert] 25 mg PO TID PRN 03/04/17 05/06/17 History Pravastatin Sodium [Pravachol] 40 mg PO HS 03/04/17 05/06/17 History Pregabalin [Lyrica] 150 mg PO DAILY@1200,2330 03/04/17 05/06/17 History Propafenone HCl [Rythmol Sr] 325 mg PO DAILY@1200,2330 03/04/17 05/06/17 History Tamsulosin HCl [Flomax] 0.4 mg PO DAILY@1200 03/04/17 05/06/17 History Zolpidem [Ambien] 10 mg PO HS 03/04/17 05/06/17 History metFORMIN HCL 500 mg PO DAILY@1200,2330 03/04/17 05/06/17 History Aspirin [Adult Low Dose Aspirin EC] 81 mg PO DAILY@1200 04/27/17 05/06/17 History Dabigatran [Pradaxa] 150 mg PO DAILY@1200,2330 04/27/17 05/06/17 History Allergies Allergy/AdvReac Type Severity Reaction Status Date / Time No Known Allergies Allergy Verified 02/28/18 21:02 Physical Exam Vitals: Vital Signs Temp Pulse Pulse Pulse Resp BP BP 05/18/17 09:00 73 05/18/17 08:50 72 05/18/17 08:00 98.2 F 82 60 14 05/18/17 04:00 98.2 F 60 16 154/65 05/17/17 23:34 54 L 14 05/17/17 20:21 64 05/17/17 20:08 60 05/17/17 20:00 97.8 F 68 14 130/62 05/17/17 17:35 22 05/17/17 15:45 97.8 F 59 L 22 128/71 05/17/17 15:18 58 L 05/17/17 15:06 55 L 05/17/17 15:00 61 20 116/56 05/17/17 14:00 59 L 22 129/47 05/17/17 13:00 59 L 17 125/58 05/17/17 12:00 98.3 F 58 L 19 140/53 BP Pulse Ox 05/18/17 09:00 05/18/17 08:50 05/18/17 08:00 128/60 98 05/18/17 04:00 99 05/17/17 23:34 135/63 99 05/17/17 20:21 05/17/17 20:08 05/17/17 20:00 92 L 05/17/17 17:35 05/17/17 15:45 96 05/17/17 15:18 05/17/17 15:06 05/17/17 15:00 94 L 05/17/17 14:00 97 05/17/17 13:00 97 05/17/17 12:00 98 Intake and Output 05/17/17 05/18/17 05/18/17 22:59 06:59 14:59 Intake Total 20.501 831.317 Output Total 400 1400 Balance -379.499 -568.683 Intake: IV 400 Dextrose 5% in Water 1, 400 000 ml @ 50 mls/hr IV . Q20H [facility] Rx#:[id number] Intake, IV Titration 20.501 431.317 Amount ACETAMINOPHEN IV (For NPO 400 ) 1,000 mg In Empty Bag 1 bag @ 400 mls/hr IVPB Q6HR [facility] Rx#:[id number] Insulin Regular 100 unit 20.501 31.317 In Sodium Chloride 0.9% 100 ml @ Per Protocol IV .Q0M [facility] Rx#:[id number] Output: Urine 400 1400 Other: Voiding Method Indwelling Catheter Indwelling Catheter Indwelling Catheter # Voids 3 Weight 130 kg Skin: Atrophic, intact. General: Overweight build and comfortable appearance. Head: Normocephalic, atraumatic. Eyes: Symmetric. Pupils equal round. Ears: Symmetric. Hearing within normal limits. Mouth: Clear. Neck: Supple. Carotid without bruit. Cardiac: Regular rate and rhythm. Lungs: Clear anteriorly and posteriorly. Abdomen: Soft active nontender. Extremities: Normal tone. Neurological: Mental status: Confused, cooperative. Cranial nerves: Symmetric facial tone and trapezius. Motor: Can elevate all 4 limbs off of bed. Sensation: Intact throughout. DTRs: Symmetric and equal throughout. Mobility: Requires physical assistance for bed mobility and transfer to [facility]. Results CBC & Chem 7: 05/18/17 05:57 05/18/17 05:57 Labs: Abnormal Lab Results - Last 24 Hours (Table) 05/17/17 05/17/17 05/17/17 Range/Units 13:11 15:15 16:39 WBC (3.8-10.6) k/uL RBC (4.30-5.90) m/uL Hgb (13.0-17.5) gm/dL Hct (39.0-53.0) % MCV (80.0-100.0) fL Plt Count (150-450) k/uL Neutrophils # (1.3-7.7) k/uL ABG Total CO2 (19-24) mmol/L BUN (9-20) mg/dL Creatinine (0.66-1.25) mg/dL Glucose (74-99) mg/dL POC Glucose (mg/dL) 160 H 173 H 185 H (75-99) mg/dL 05/17/17 05/17/17 05/17/17 Range/Units 17:47 19:10 21:00 WBC (3.8-10.6) k/uL RBC (4.30-5.90) m/uL Hgb (13.0-17.5) gm/dL Hct (39.0-53.0) % MCV (80.0-100.0) fL Plt Count (150-450) k/uL Neutrophils # (1.3-7.7) k/uL ABG Total CO2 26 H (19-24) mmol/L BUN (9-20) mg/dL Creatinine (0.66-1.25) mg/dL Glucose (74-99) mg/dL POC Glucose (mg/dL) 141 H 140 H (75-99) mg/dL 05/17/17 05/18/17 05/18/17 Range/Units 23:00 00:54 03:10 WBC (3.8-10.6) k/uL RBC (4.30-5.90) m/uL Hgb (13.0-17.5) gm/dL Hct (39.0-53.0) % MCV (80.0-100.0) fL Plt Count (150-450) k/uL Neutrophils # (1.3-7.7) k/uL ABG Total CO2 (19-24) mmol/L BUN (9-20) mg/dL Creatinine (0.66-1.25) mg/dL Glucose (74-99) mg/dL POC Glucose (mg/dL) 156 H 157 H 153 H (75-99) mg/dL 05/18/17 05/18/17 05/18/17 Range/Units 04:55 05:57 05:57 WBC 12.0 H (3.8-10.6) k/uL RBC 2.98 L (4.30-5.90) m/uL Hgb 9.8 L (13.0-17.5) gm/dL Hct 30.3 L (39.0-53.0) % MCV 101.6 H (80.0-100.0) fL Plt Count 452 H (150-450) k/uL Neutrophils # 9.4 H (1.3-7.7) k/uL ABG Total CO2 (19-24) mmol/L BUN 80 H* (9-20) mg/dL Creatinine 1.99 H (0.66-1.25) mg/dL Glucose 141 H (74-99) mg/dL POC Glucose (mg/dL) 140 H (75-99) mg/dL Microbiology - Last 24 Hours (Table) 05/12/17 21:20 Blood Culture - Preliminary Blood No Growth after 120 hours Chest x-ray: report reviewed (Serial chest x-rays negative. T-spine spurring noted.) CT Scan - head: report reviewed (Right frontal hypoattenuation lesion noted.) Assessment and Plan (1) Anoxic encephalopathy Current Visit: Yes Status: Acute Code(s): G93.1 - ANOXIC BRAIN DAMAGE, NOT ELSEWHERE CLASSIFIED SNOMED Code(s): 694585635 (2) Cardiopulmonary arrest with successful resuscitation Current Visit: Yes Status: Acute Code(s): I46.9 - CARDIAC ARREST, CAUSE UNSPECIFIED SNOMED Code(s): 040473309 Plan: Impression: 1. Medical debility. 2. Right CEA. 3. Status post cardiac arrest, successful resuscitation. 4. Anoxic encephalopathy. 5. Acute kidney injury. 6. Coronary disease 7. Hypertension. 8. Dyslipidemia. 9. Diabetes. 10. Osteoarthritis. Comments and plan: At this time PT, OT, E BUSINESS CONSULTANT ongoing. Safety concerns noted but unsure patient's ability to cooperate and benefit from therapies. We'll follow with yourself.
[2017-05-18 12:22] LABS: Glucose,Whole Blood 186 mg/dL (75-99)
--- NOTE | 2017-05-18 12:45 | P.PN ---
Progress Note - Text Progress Note Date: 05/18/17 Patient appears alert and oriented and has no specific complaints. Vital signs stable. Neck has less swelling. Mild left sided weakness. Patient continues to progress post right carotid endarterectomy, subsequent CA and arrest with resuscitation, and time with mechanical ventilation. Continue to work on physical therapy, speech therapy, and increasing diet and activity. Beginning to investigate discharge planning.
--- NOTE | 2017-05-18 13:13 | P.PN ---
Subjective Progress Note Date: 05/18/17 76-year-old male who underwent elective right carotid endarterectomy with patch angioplasty on 05/06/[address] Mckenzie was consulted for medical management. The patient has a history of bilateral carotid stenosis, atrial fibrillation, coronary disease, diabetes mellitus, gastroesophageal reflux disease, hyperlipidemia, hypertension, osteoarthritis, and sleep apnea. 05/07/2017 The patient was seen and examined in the intensive care unit on rounds Dr. Mckenzie. The patient is sitting up in the chair. Family is at the bedside. The patient remains on a nitro drip at 60 mcg/min. Systolic blood pressures ranging in the 140s. The patient is complaining of pain at the surgical site. Dressing is in place. Swelling is noted near surgical site. Patient denies shortness of breath or coughing. Denies chest pain or pressure. Denies nausea or vomiting. States he is tolerating PO intake well without nausea or vomiting. 05/08/2017 Patient remains in intensive care unit. He is postop day #2 right carotid endarterectomy. The patient is sitting up in the chair. the patient's nitro drip has been weaned off. He was started on Norvasc 10 mg daily yesterday along with hydralazine 50 mg by mouth 3 times a day. Patients blood sugars remain elevated in the 200s. Patient utilizes an insulin pump at home. Patient 's insulin pump is currently not with him as it was empty and patient's was going to bring his insulin pump back to the hospital after she refilled it. patient remains on 6 L nasal cannula with oxygen saturations greater than 92%. He denies shortness of breath. Denies chest pain or pressure. Tolerating by mouth intake without nausea or vomiting. WBC 13.2. Hemoglobin 10.6. BUN 38. Creatinine 1.40. 05/09/2017-Notes per Dr. Mckenzie 05/10/2017-Notes per Dr. Mckenzie 05/11/2017 Patient seen and examined at the bedside on rounds with Dr. Corona. Patient went into cardiac arrest on 05/08/2017 and was successfully resuscitated after approximately 20 minutes of CPR. Patient remains intubated in the intensive care unit on mechanical ventilation. Patient is currently on IV propofol secondary to patient biting on his ET tube and bucking the ventilator. Sedation holiday has not been performed per nursing secondary to hemodynamic instability. Patient remains on 50% FiO2. Patient has required vasopressor secondary to hypotension. Levophed is currently off this morning. Chest x-ray this morning reveals mild cardio megaly with persistent central bilateral perihilar edema and/or infiltrates. ARDS is not excluded. Patient remains on Lasix drip. Patient also remains on insulin drip. Creatinine this morning is 3.30. Nephrology is on consult. Patient underwent CT of the brain which was negative for an acute process. 05/12/2017 Patient seen and examined at the bedside on rounds with Dr. Corona. Patient remains intubated in the intensive care unit. Family at the bedside. Patient sedation has been held for approximately 40 minutes. Patient is not following commands but is moving all extremities. Patient's eyes are open but patient is not tracking currently. Tube feedings are infusing. Patient is tolerating well. Patient has not had a bowel movement per nursing and just received a rectal suppository. Patient remains on insulin drip. Currently at 8.5 units an hour. Lasix drip was discontinued this morning per nephrology. Creatinine 3.10 this morning. Urinary output remains adequate. Hematuria is improving. Blood pressure is currently elevated in the 170s which may be secondary to agitation as sedation has been on hold. Nursing reports blood pressure has been running in the 140s when patient is sedated. 05/13/2017 Patient seen and examined at the bedside on rounds with Dr. Coroan. is at the bedside. Per nursing, patients propofol was off yesterday and patient was able to follow some simple commands. Patient became agitated this morning and sedation was resumed. It has since been turned off. Patient does remain lethargic. He is able to open his eyes to commands and slightly wiggle his toes upon command when asked repeatedly, but then drifts back off to sleep. Patient remains on an insulin dip at 11.5 units an hour. Blood sugars are 161-196. Boothe remains intact with blood tinged urine. Tube feeding is infusing at 45 cc/ hr which is goal. Patient tolerated well. Bowel movement yesterday. Blood pressure remains elevated at times. Hydralazine PRN was ordered yesterday. Coreg has been ordered today per pulmonary. 05/14/2017 Patient seen and examined at the bedside on rounds with Dr. Corona. Patient remains on mechanical ventilation. FiO2 has been decreased to 40% per pulmonary. Patient remains off sedation and is able to follow simple commands. Tube feeding is infusing at 45 mL an hour which is goal. Patient is tolerating well. Indwelling urinary catheter remains intact with blood-tinged urine. Blood sugars are ranging between 140 and 174. Patient remains on an insulin drip. 05/15/2017 patient seen and examined at the bedside in the intensive care unit. Patient has been asked to be and is currently on BiPAP with FiO2 of 40%. Oxygen saturation is greater than 92%. Patient continues to have left sided weakness and underwent CT of the brain. CT of the brain reveals small right posterior frontal lobe cortical infarct. Evidence of subacute lacunar infarct in the right internal capsule that appears new in comparison to old exam. his aspirin was increased to 325 mg daily per neurology. chest x-ray this morning reveals improvement in pulmonary vascular congestion and persistent trace left pleural effusion. patient's sodium this morning is 153. Nephrology ordered D5W at 50 cc for 6 hours. Patient's potassium remains borderline low as well. Potassium supplementation ordered per nephrology. blood sugars are ranging from 137-155. Patient remains on insulin drip. 05/16/2017-Note per Dr. Mckenzie 05/17/2017-Note per Dr. Mckenzie 05/18/2017 Patient seen and examined at the bedside. patient remains hemodynamically stable. On 3 L nasal cannula with oxygen saturations greater then 92%. Most recent blood pressure 128/60. Patient is afebrile. Heart rate is in the 80s. Patient underwent modified barium swallow and passed. Patient able to tolerable all consistencies of food. Patient has been placed on a heart healthy diet. Dr. Morrow has been consulted for possible inpatient rehab. Patient was found to have unequal pupils and underwent CT scan of the brain on 05/17/2017 which was negative for an acute intercranial hemorrhage or midline shift. There is diffuse age-related cerebral atrophy and chronic small vessel ischemic changes noted. Enchepalomalacia in the right frontal lobe from prior infarct. Patient underwent a repeat CT of the brain on 05/18/2017 which revealed focal cortical and subcortical hypodensity posterior frontal lobe is now seen compatible with subacute infarct. No acute intercranial hemorrhage or midline shift. Chest x-ray from 05/17/2017 reveals retrocardiac opacity that may represent a small pleural effusion with atelectasis and/or pneumonia. Enlargement pulmonary vasculature may relate to underlying pulmonary arterial hypertension. Objective - Vital Signs Vital signs: Vital Signs Temp 98.2 F 05/18/17 08:00 Pulse 73 05/18/17 09:00 Resp 14 05/18/17 08:00 BP 128/60 05/18/17 08:00 Pulse Ox 98 05/18/17 08:00 Intake & Output 05/17/17 05/18/17 05/18/17 18:59 06:59 18:59 Intake Total 562.583 835.968 Output Total 1470 1400 Balance -907.417 -564.032 Weight 130 kg Intake: IV 530.0 400 Dextrose 5% in Water 1, 400 400 000 ml @ 50 mls/hr IV . Q20H [facility] Rx#:[id number] KVO 80 Piperacillin-Tazobactam 3 50.0 .375 gm In Dextrose/Water 1 50ml.bag @ 12.5 mls/hr IVPB Q12H [facility] Rx#: [id number] Intake, IV Titration 32.583 435.968 Amount ACETAMINOPHEN IV (For NPO 400 ) 1,000 mg In Empty Bag 1 bag @ 400 mls/hr IVPB Q6HR [facility] Rx#:[id number] Insulin Regular 100 unit 32.583 35.968 In Sodium Chloride 0.9% 100 ml @ Per Protocol IV .Q0M [facility] Rx#:[id number] Output: Urine 1470 1400 Other: Voiding Method Indwelling Catheter Indwelling Catheter Indwelling Catheter # Voids 3 ABP, PAP, CO, CI - Last Documented Arterial Blood Pressure 165/47 - Exam GENERAL: This is a 76-year-old male who is awake and alert. HEENT: Head is atraumatic, normocephalic. Pupils are unequal, round, and reactive to light. Sclerae anicteric. Conjunctivae are clear. Mucus membranes of the mouth are moist. Neck is supple. Extensive ecchymosis noted throughout neck. RESPIRATORY: Diminished throughout. Patient maintaining oxygen saturation greater than 92%. No chest wall tenderness is noted on palpation or with deep breathing. CARDIOVASCULAR: Regular rate and rhythm. S1 and S2 noted. No systolic or diastolic murmur auscultated. No JVD noted. No S3 or S4 noted. GASTROINTESTINAL: No distention noted. Abdomen soft and round. Normal active bowel sounds auscultated x 4 quadrants. No pain or tenderness noted upon palpation. INTEGUMENTARY: Ecchymosis noted around surgical area. No cyanosis. No jaundice. EXTREMITIES: 1+ peripheral pulses. trace bilateral lower extremity edema No calf tenderness noted. NEUROLOGIC/PSYCHIATRIC: alert and oriented 3. Patient able to grasp with hands bilaterally. Speech is clear. - Labs CBC & Chem 7: 05/18/17 05:57 05/18/17 05:57 Labs: Abnormal Lab Results - Last 24 Hours (Table) 05/17/17 05/17/17 05/17/17 Range/Units 11:00 13:11 15:15 WBC (3.8-10.6) k/uL RBC (4.30-5.90) m/uL Hgb (13.0-17.5) gm/dL Hct (39.0-53.0) % MCV (80.0-100.0) fL Plt Count (150-450) k/uL Neutrophils # (1.3-7.7) k/uL ABG Total CO2 (19-24) mmol/L BUN (9-20) mg/dL Creatinine (0.66-1.25) mg/dL Glucose (74-99) mg/dL POC Glucose (mg/dL) 155 H 160 H 173 H (75-99) mg/dL 05/17/17 05/17/17 05/17/17 Range/Units 16:39 17:47 19:10 WBC (3.8-10.6) k/uL RBC (4.30-5.90) m/uL Hgb (13.0-17.5) gm/dL Hct (39.0-53.0) % MCV (80.0-100.0) fL Plt Count (150-450) k/uL Neutrophils # (1.3-7.7) k/uL ABG Total CO2 26 H (19-24) mmol/L BUN (9-20) mg/dL Creatinine (0.66-1.25) mg/dL Glucose (74-99) mg/dL POC Glucose (mg/dL) 185 H 141 H (75-99) mg/dL 05/17/17 05/17/17 05/18/17 Range/Units 21:00 23:00 00:54 WBC (3.8-10.6) k/uL RBC (4.30-5.90) m/uL Hgb (13.0-17.5) gm/dL Hct (39.0-53.0) % MCV (80.0-100.0) fL Plt Count (150-450) k/uL Neutrophils # (1.3-7.7) k/uL ABG Total CO2 (19-24) mmol/L BUN (9-20) mg/dL Creatinine (0.66-1.25) mg/dL Glucose (74-99) mg/dL POC Glucose (mg/dL) 140 H 156 H 157 H (75-99) mg/dL 05/18/17 05/18/17 05/18/17 Range/Units 03:10 04:55 05:57 WBC 12.0 H (3.8-10.6) k/uL RBC 2.98 L (4.30-5.90) m/uL Hgb 9.8 L (13.0-17.5) gm/dL Hct 30.3 L (39.0-53.0) % MCV 101.6 H (80.0-100.0) fL Plt Count 452 H (150-450) k/uL Neutrophils # 9.4 H (1.3-7.7) k/uL ABG Total CO2 (19-24) mmol/L BUN (9-20) mg/dL Creatinine (0.66-1.25) mg/dL Glucose (74-99) mg/dL POC Glucose (mg/dL) 153 H 140 H (75-99) mg/dL 05/18/17 Range/Units 05:57 WBC (3.8-10.6) k/uL RBC (4.30-5.90) m/uL Hgb (13.0-17.5) gm/dL Hct (39.0-53.0) % MCV (80.0-100.0) fL Plt Count (150-450) k/uL Neutrophils # (1.3-7.7) k/uL ABG Total CO2 (19-24) mmol/L BUN 80 H* (9-20) mg/dL Creatinine 1.99 H (0.66-1.25) mg/dL Glucose 141 H (74-99) mg/dL POC Glucose (mg/dL) (75-99) mg/dL Microbiology - Last 24 Hours (Table) 05/12/17 21:20 Blood Culture - Preliminary Blood No Growth after 120 hours Assessment and Plan Plan: ASSESSMENT: Bilateral carotid stenosis, s/p right carotid endarterectomy, POD #13 Acute cardiopulmonary arrest requiring mechanical ventilation, likely secondary to acute pulmonary edema with a downtime of at least 20 minutes, extubated 05/14 Acute exacerbation of systolic congestive heart failure, ejection fraction 20% subacute lacunar infarct involving the right internal capsule with left-sided hemiparesis Suspected acute non-ST elevated CT Acute kidney injury, suspect secondary to prolonged cardiopulmonary arrest and diuresis Chronic disease, stage III, secondary to nephrosclerosis baseline creatinine 1.2 Hypoxic/anoxic encephalopathy secondary to prolonged cardiopulmonary arrest Hypertension Diabetes mellitus, type II, utilizing insulin pump at home Coronary artery disease Atrial fibrillation, on retirement anticoagulation with Pradaxa Hematuria, thought to be secondary to Pradaxa which has been placed on hold, improving Hyperlipidemia Hypernatremia, resolved hypokalemia, secondary to diuresis, resolved Osteoarthritis with previous multiple joint replacements Morbid obesity: BMI 42.8 PLAN: [place] 10/325 ordered for pain per Dr. Mckenzie Discontinue IV fluids Insulin drip has been discontinued. Continue NovoLog sliding scale coverage before meals and at bedtime Physical therapy and occupational therapy Home meds as appropriate Monitor labs GI prophylaxis: Protonix 40mg PO daily DVT prophylaxis: CONCEPCIÓN hose and Venodyne's to bilateral lower extremities Monitor vital signs and address as appropriate Further recommendations pending patient's course Nurse practitioner note has been reviewed by physician. Signing provider agrees with the documented findings, assessment, and plan of care.
--- NOTE | 2017-05-18 13:26 | FL ---
MODIFIED SWALLOW / DEGLUTITION STUDY DATE OF EXAM: 05/18/2017 CLINICAL HISTORY: 76-year-old male Dysphagia. Patient with stroke and coughing, evaluate for aspirati on. TECHNIQUE: Deglutition study is performed utilizing thin liquid barium, honey and nectar thick liqui d barium, barium thick applesauce, and barium coated cracker. COMPARISON: None. Total fluoroscopy time: 1 minute 16 seconds. Total images: None saved. Real-time fluoroscopy support was provided to speech pathology. FINDINGS: The oral and pharyngeal phases show satisfactory initiation and propagation with all modalities teste d. Normal mastication is seen with solid modalities tested. There is no evidence of penetration or aspiration with any modality tested. No significant pharyngeal residue was appreciated. IMPRESSION: Functional swallow. No penetration or aspiration. Please refer to speech therapist notes for further details if necessary.
[2017-05-18] MEDS: HYDROcodone/APAP 10-325MG 1 EACH TAB PO PRN (14:02)
--- NOTE | 2017-05-18 14:36 | P.PN ---
Subjective Progress Note Date: 05/18/17 Principal diagnosis: Acute cardiopulmonary arrest post right carotid endarterectomy. This is a 76-year-old male patient with status post carotid endarterectomy on the right and the patient is postop day #6. Note that the patient went into acute cardio pulmonary arrest postop day #2 and he was done with initially acute respiratory arrest and subsequent cardiac arrest for a total of 30 minutes during which the patient received a total of 10 mg of epinephrine and 2 A of bicarb and subsequently the patient was intubated and placed on mechanical ventilator and since then the patient has remained intubated. On today's evaluation of 05/11/2017, the patient is sedated on Diprivan at 45 mg per KG pigmented. The patient is heavily sedated. He occasionally bites the tube and he withdraws to some stimulation to his lower extremities bilaterally. Hemodynamically, the patient is on no pressors. The patient is still in pulmonary edema and his chest x-ray and the patient is currently on Lasix drip at 10 mg an hour. Urine output is more than 100 mL an hour daily basis. The urine is somewhat bloody as the patient had some bleeding related to Pradaxa intake and Pradaxa is currently off. The patient is on assist- control mode of ventilation at the rate of 26, tidal volume 500, FiO2 of 50% and a PEEP of 15. The blood gases from this morning showed a pH of 7.49, with a pCO2 of 39 and pO2 of 113. The chest x-ray still showing pulmonary edema. Minimal amount of bloody secretions from his orotracheal tube. He is synchronous with the mechanical ventilator. Breath sounds are equal and symmetrical bilaterally. Echocardiogram showed an ejection fraction of less than 20%. The patient is still in acute kidney injury. Creatinine is up to 3.3 yet he is nonoliguric at this stage and nephrology is on the case. We are going to continue the Lasix drip at the same rate for now. The patient is being controlled with an insulin drip in regards to his blood sugar. The patient has not been given any sedation holiday since his cardiac/pulmonary arrest. The patient is on tube feeds and receding vital high protein at the rate of 60 mL an hour. Otherwise, no other significant events overnight. The CAT scan of the brain that was obtained on showed no acute abnormalities are then chronic cerebral atrophy. The patient has a hematoma over the right neck area which is currently stable and soft and the incision site is clean. On 05/13/2079 I'm seeing this patient for a follow-up in the patient was given a sedation holiday and he is opening up his eyes. He is not following any simple commands yet. No preferential gaze. No nystagmus. No agitation. He is doing some limited activity as far as movement in his upper extremities. He has a decent cough. The patient has no seizure activity. Incision over the right neck is clean and dry and the ecchymosis and hematoma over the right neck area soft and has not progressed. He is afebrile. He is on a mechanical ventilator. The PEEP has been drop down to 10 with an FiO2 of 50% and the patient remains on a tidal volume of 500 with a rate of 26. Chest x-ray shows some improvement in the volume status. The blood gases from today showed a pH of 7.49 with a pCO2 of 40 and pO2 of 74. The patient is on IV Lasix 60 mg every 8 hours. He is getting into a negative fluid balance. Hematuria is also improving. Otherwise the patient is producing adequate amount of urine output. Creatinine today is at 3.1 which is stable and not worse compared to yesterday. He is afebrile. He is tolerating his tube feeds. He was given a Dulcolax suppository. He is on no pressors. No other significant events overnight. Family is at the bedside. On 05/13/2017 I'm seeing this patient for a follow-up. The patient remains intubated on a mechanical ventilator. Note that the patient was taken off sedation throughout the day yesterday. He was waking up and he was opening his eyes spontaneously. He was not following commands initially. Subsequently he became more responsive and he follows some simple commands and today's able to wiggle his toes and move his fingers upon demand. He is calm and comfortable he is not agitated. Earlier this morning while being positioned in bed the patient became a bit tachycardic and tachypneic and agitated. He had to be placed back on Diprivan for a brief period of time and currently is back to being off sedation. He is still on a mechanical ventilator. I managed to drop the PEEP down to 8 and this morning he is an assist-control mode at the rate of 26, tidal volume of 500 with a PEEP of 8 and FiO2 of 40%. Blood gases showed a pH of 7.55 with a pCO2 of 39 and pO2 of 80. The chest x-ray from today still showing some but the pulmonary vessel congestion/edema. Nevertheless, the patient was diuresed adequately with accommodation of Lasix and Zaroxolyn the patient has been in a negative fluid balance of at least 5-6 L over the past 24 hours. This has resulted in to some metabolic alkalosis and the pH is up to 7.5 and a serum bicarb is up to 34. No hematuria this point. He is tolerating his tube feeds. No fever or chills. The incision site over the right neck area dry clean and intact. Blood pressure is fluctuating at times it's quite high requiring hydralazine pushes for blood pressure control. Cardiac rhythm is still sinus. He is off antibiotics for now. On 05/14/2017, I'm seeing this patient for a follow-up. The patient is being given a sedation holiday. He stayed off sedation throughout the day yesterday and he had to be placed on sedation again this morning. He is only on 20 mics of the prevent. He was awake and he was following commands yesterday. This morning, he is still on a mechanical ventilator. His PEEP has been drop down to 5. The patient is assist-control mode with a tidal volume 500, rate of 26 and the FiO2 down to 40%. Chest x-ray findings are stable. The patient was diuresed aggressively with IV Lasix and Zaroxolyn. Her net fluid balance over the past 24 hours is -3.6 L in the prior to that was -6.3 L. The swelling in the upper and lower occiput is improved and the patient's volume status also improved. The patient has a mild degree of metabolic alkalosis with a pH of 7.52 with a pCO2 of 42 and pO2 of 65 on today's blood gases. The renal function is still impaired. BN is up 214. Creatinine is up to 3.2. Lasix dose was cut down to 40 mg twice a day. Nephrology is on the case. No other significant events overnight. The patient remains in a normal sinus rhythm. The patient is off anticoagulants. The urine output is still somewhat bloody. There are no clots. The patient is seen again today in 05/15/2017 in follow-up in the intensive care unit. He was successfully extubated yesterday. He was placed on BiPAP 20/ 10 at 40% [id number] the evening.this morning he is awake and alert and following simple commands.computed tomography scan of the brain reveals old small right posterior frontal lobe cortical infarct. There is evidence of a subacute lacunar infarct in the right internal capsule that appears new compared to recent exam. His left lower extremity is quite weak his left upper extremity slightly weaker than the right. He is answering questions appropriately. He was removed from the BiPAPand placed on 40% Ventimask. He is maintaining O2 saturations in the 90s. Chest x-ray reveals improvement in the pulmonary vascular congestion. There is trace left pleural effusion. He remains on bronchodilators and Zosyn. White count 15.2. Hemoglobin 9.9.creatinine 3.30 BUN 132. He is receiving free water. He remains in a negative balance. He remains in sinus rhythm somewhat bradycardic. His family is at the bedside. The patient is seen again today 05/16/2017 in follow-up in the intensive care unit. He is awake and alert and in no acute distress. He denies any shortness of breath, cough or congestion. He is maintaining good O2 saturations in the upper 90s on 4 L/m per nasal cannula. He remains on Zosyn. He is currently in sinus bradycardia with occasional PVC. Blood pressure stable. He remains quite weak but is able to move all 4 extremities. Left side weaker than the right. White count 15.0. Hemoglobin 9.6. Sodium 147. BUN 130. Creatinine 3.00. Nephrology is on the case. Diamox was discontinued. He remains on D5W at 50 MLS per hour. Chest x-ray continues to show mild cardiomegaly. There is no new focal airspace opacities effusions or pneumothorax. On 05/17/2017, the patient is being seen for a follow-up. The patient is doing much better. Wide awake and alert and following commands. Left lower extremities weak and left upper extremities weak and this confirms the completion of a stroke. Otherwise, his speech is appropriate. Mentation is within normal limits. Renal function continues to improve. Sodium level is declining. The patient is in sinus rhythm. Hemodynamically stable. Wearing his BiPAP overnight. No other significant events overnight and the patient is currently on 3 L of oxygen by nasal cannula and should be able to move to telemetry. He needs aggressive physical therapy. Reevaluated today on 05/18/2017, patient is doing much better, does not have any specific complaints. Mentation seems to be normal, patient is generally weak, speech is appropriate. Mentation seems to be quite normal. CBC is relatively normal. Renal profile showed OH of 80 creatinine 1.99 Objective - Vital Signs Vital signs: Vital Signs Temp 98.0 F 05/18/17 12:00 Pulse 72 05/18/17 12:38 Resp 16 05/18/17 12:00 BP 150/62 05/18/17 12:00 Pulse Ox 98 05/18/17 12:00 Intake & Output 05/17/17 05/18/17 05/18/17 18:59 06:59 18:59 Intake Total 562.583 835.968 Output Total 1470 1400 800 Balance -907.417 -564.032 -800 Weight 130 kg Intake: IV 530.0 400 Dextrose 5% in Water 1, 400 400 000 ml @ 50 mls/hr IV . Q20H JOSÉ MIGUEL Rx#:[id number] KVO 80 Piperacillin-Tazobactam 3 50.0 .375 gm In Dextrose/Water 1 50ml.bag @ 12.5 mls/hr IVPB Q12H JOSÉ MIGUEL Rx#: [id number] Intake, IV Titration 32.583 435.968 Amount ACETAMINOPHEN IV (For NPO 400 ) 1,000 mg In Empty Bag 1 bag @ 400 mls/hr IVPB Q6HR JOSÉ MIGUEL Rx#:[id number] Insulin Regular 100 unit 32.583 35.968 In Sodium Chloride 0.9% 100 ml @ Per Protocol IV .Q0M JOSÉ MIGUEL Rx#:[id number] Output: Urine 1470 1400 800 Other: Voiding Method Indwelling Catheter Indwelling Catheter Indwelling Catheter # Voids 3 ABP, PAP, CO, CI - Last Documented Arterial Blood Pressure 165/47 - Exam Patient is awake and following some simple commands. HEENT examination is grossly unremarkable. Mucous membranes are moist. No oral lesions. A hematoma can be visualized all over the neck area, APPLYING mainly the right neck area and the incision site is clean. The hematoma itself is soft and non-enlarging at this point. Neck supple. Full range of motion. No adenopathy thyromegaly or neck vein distention. There is tremendous bruising and ecchymoses about the neck from the recent surgery. It's more right than left-sided. There hematoma is stable for now. Cardiovascular examination reveals regular rhythm rate. S1-S2 normal. No S3 or S4. No discernible murmur noted. Heart sounds are distant. Lungs reveal diffuse bilateral rhonchi. Breath sounds are diminished. Some bibasilar crackles. No wheezes. Abdomen soft bowel sounds are heard. No masses or tenderness. Extremities are intact. No cyanosis clubbing or edema. Skin is without rash or lesion. Neurologic the patient has no focal neurological deficit. Obvious motor weakness in the left lower extremity. No facial asymmetry. No altered mentation. The patient is very appropriate. Speech is within normal limits. - Labs CBC & Chem 7: 05/18/17 05:57 05/18/17 05:57 Labs: Abnormal Lab Results - Last 24 Hours (Table) 05/17/17 05/17/17 05/17/17 Range/Units 15:15 16:39 17:47 WBC (3.8-10.6) k/uL RBC (4.30-5.90) m/uL Hgb (13.0-17.5) gm/dL Hct (39.0-53.0) % MCV (80.0-100.0) fL Plt Count (150-450) k/uL Neutrophils # (1.3-7.7) k/uL ABG Total CO2 26 H (19-24) mmol/L BUN (9-20) mg/dL Creatinine (0.66-1.25) mg/dL Glucose (74-99) mg/dL POC Glucose (mg/dL) 173 H 185 H (75-99) mg/dL 05/17/17 05/17/17 05/17/17 Range/Units 19:10 21:00 23:00 WBC (3.8-10.6) k/uL RBC (4.30-5.90) m/uL Hgb (13.0-17.5) gm/dL Hct (39.0-53.0) % MCV (80.0-100.0) fL Plt Count (150-450) k/uL Neutrophils # (1.3-7.7) k/uL ABG Total CO2 (19-24) mmol/L BUN (9-20) mg/dL Creatinine (0.66-1.25) mg/dL Glucose (74-99) mg/dL POC Glucose (mg/dL) 141 H 140 H 156 H (75-99) mg/dL 05/18/17 05/18/17 05/18/17 Range/Units 00:54 03:10 04:55 WBC (3.8-10.6) k/uL RBC (4.30-5.90) m/uL Hgb (13.0-17.5) gm/dL Hct (39.0-53.0) % MCV (80.0-100.0) fL Plt Count (150-450) k/uL Neutrophils # (1.3-7.7) k/uL ABG Total CO2 (19-24) mmol/L BUN (9-20) mg/dL Creatinine (0.66-1.25) mg/dL Glucose (74-99) mg/dL POC Glucose (mg/dL) 157 H 153 H 140 H (75-99) mg/dL 05/18/17 05/18/17 05/18/17 Range/Units 05:57 05:57 11:56 WBC 12.0 H (3.8-10.6) k/uL RBC 2.98 L (4.30-5.90) m/uL Hgb 9.8 L (13.0-17.5) gm/dL Hct 30.3 L (39.0-53.0) % MCV 101.6 H (80.0-100.0) fL Plt Count 452 H (150-450) k/uL Neutrophils # 9.4 H (1.3-7.7) k/uL ABG Total CO2 (19-24) mmol/L BUN 80 H* (9-20) mg/dL Creatinine 1.99 H (0.66-1.25) mg/dL Glucose 141 H (74-99) mg/dL POC Glucose (mg/dL) 186 H (75-99) mg/dL Microbiology - Last 24 Hours (Table) 05/12/17 21:20 Blood Culture - Preliminary Blood No Growth after 120 hours Assessment and Plan Assessment: 1 right carotid endarterectomy and the patient is postop day #13 2 acute cardio pulmonary arrest. This is most like an acute pulmonary edema for by cardiac arrest and the patient had a downtime of at least 25 minutes. He received a total of 10mgrams epinephrine and bicarb requiring intubated on a mechanical ventilator. Successfully extubated 05/14/2017. He is alternating between BiPAP and 3 L/m per nasal cannula 3 CHF with an ejection fraction of less than 20% 4 suspected acute non-STEMI with ST segment depression and some mild troponin leak that peaked at 2.8 with underlying history of coronary artery disease 5 acute kidney injury, improving and the creatinine is down to 2.4 6 acute respiratory failure secondary to above, chest x-ray from today continues to show improvement in the volume status with some residual interstitial edema. 7 diabetes mellitus 8 possible hypoxic/anoxic encephalopathy suspected. computed tomography scan of the brain 05/14/2017 reveals an old small right posterior frontal lobe cortical infarct. There is evidence of a subacute lacunar infarct in the right internal capsule. The patient is awake and alert and following commands. He does have some residual left-sided weakness. 9 obstructive sleep apnea and on BiPAP on outpatient basis at a pressure of 21/ 17 10 hypertension, fluctuating blood pressure 11 hyperlipidemia 12 morbid obesity 13 gout 14 hematoma over the neck especially over the right anterior neck area with a clean incision, postsurgical To get further by the intake of anticoagulants 15 mild hematuria, recovered Recommendation: Continue physical therapy, agree with discharge planning to a rehab facility. We'll continue to follow. Use BiPAP at night. Time with Patient: Less than 30
[2017-05-18] MEDS: DEXTROSE 5% IN WATER 1,000 ML IV SCH (14:57)
[2017-05-18] MEDS: PREGABALIN 75 MG CAP PO SCH ×2 (15:26→21:26)
[2017-05-18 16:59] LABS: Glucose,Whole Blood 198 mg/dL (75-99)
[2017-05-18 20:56] LABS: Glucose,Whole Blood 237 mg/dL (75-99)
--- NOTE | 2017-05-18 22:15 | PN ---
PROGRESS NOTE Patient is seen for followup for acute kidney injury secondary to cardiac arrest, hypotension and hypoperfusion. The patient has been diuresed and he is currently extubated and transferred out of the ICU. His diuretics have been on hold since patient had developed hypernatremia and was maintained on D5W. He is currently not able to swallow according to family. The D5W has been discontinued. His renal function continues to improve with creatinine down to 1.9 today and BUN is 80, and sodium is 142 mEq/L. EXAMINATION: Blood pressure is 141/89, heart rate is 72 per minute. Patient is afebrile. Examination of the heart S1, S2. Examination lungs bilateral breath sounds are heard. Abdomen is soft, nontender. Examination of the lower extremities shows no significant edema. Site of the right carotid endarterectomy is intact. Bruising is significantly decreased. LABS: Sodium of 142, potassium 3.7, chloride 105, CO2 is 22, BUN 80, serum creatinine 1.9, hemoglobin 9.8 g/dL. ASSESSMENT: 1. Acute kidney injury, acute tubular necrosis currently improving. 2. Status post vent dependent respiratory failure. 3. Status post cardiac arrest. 4. Status post right carotid endarterectomy. 5. Hypernatremia status post D5W, currently improved. Diuretics remain on hold. PLAN: Continue off of diuretics for now. Repeat labs in a.m. Encourage increased oral intake once cleared and once patient has passed the swallow eval. MMODL / NAOMIN: [id number] /
--- NOTE | 2017-05-18 22:48 | P.PN ---
Subjective Progress Note Date: 05/18/17 This patient is a 76-year-old right-handed white male who was undergone a right carotid endarterectomy and is postoperative day #13 today. Patient was in the intensive care unit where he has been recovering following cardiopulmonary arrest 2 days after his carotid surgery. He was sent for a computed tomography scan of the brain back on 05/14/2017 after his neurological exam reveals some left-sided weakness. The CAT scan of the brain revealed evidence of a subacute lacunar infarct in the right internal capsule. Patient is seen today in the intensive care unit and is quite awake and alert. He is conversing with his son who was at bedside. He does seem to be much more awake and is doing much better since the last few days. He does have significant left-sided weakness consistent with CAT scan findings of acute stroke. We are recommending a follow -up computed tomography scan of the brain to be done tomorrow for follow-up and comparison. The patient has remained hemodynamically stable. He continues to notice left-sided weakness and he will require aggressive physical therapy for further treatment. He may be also a candidate for subacute rehab once he is transferred out of the intensive care unit. The patient was transferred out of the ICU yesterday evening. He did show some change in mental status yesterday afternoon and was sent for a stat computed tomography scan of the brain. This CAT scan failed to reveal any acute changes. Patient had a follow-up computed tomography scan of the brain done today which reveals a focal cortical and subcortical hypodensity in the right frontal lobe suggesting subacute infarct. No evidence of hemorrhage. We reviewed the results of this CAT scan today with the patient and his was at bedside. He appears to be doing much better today and is showing no further change in mentation. It is possible this may have been a drug effect of some of his pain medication yesterday producing an acute mental status change. He is showing signs of significant improvement from a finding of anoxic encephalopathy following his cardiac arrest. We would recommend that he continue with aggressive PT/OT evaluations. Case was discussed at length with the patient and his who is at bedside. All of her questions were answered and she is are aware of our current treatment plan. Patient is being evaluated for possible subacute rehab. We will continue close neurological follow-up with the patient during this admission. Objective - Vital Signs Vital signs: Vital Signs Temp 98.0 F 05/18/17 16:00 Pulse 78 05/18/17 16:00 Resp 16 05/18/17 16:00 BP 141/89 05/18/17 16:00 Pulse Ox 99 05/18/17 16:00 Intake & Output 05/17/17 05/18/17 05/18/17 18:59 06:59 18:59 Intake Total 562.583 835.968 700 Output Total 1470 1400 800 Balance -907.417 -564.032 -100 Weight 130 kg 130 kg Intake: IV 530.0 400 Dextrose 5% in Water 1, 400 400 000 ml @ 50 mls/hr IV . Q20H JOSÉ MIGUEL Rx#:[id number] KVO 80 Piperacillin-Tazobactam 3 50.0 .375 gm In Dextrose/Water 1 50ml.bag @ 12.5 mls/hr IVPB Q12H JOSÉ MIGUEL Rx#: [id number] Intake, IV Titration 32.583 435.968 500 Amount ACETAMINOPHEN IV (For NPO 400 50 ) 1,000 mg In Empty Bag 1 bag @ 400 mls/hr IVPB Q6HR JOSÉ MIGUEL Rx#:[id number] Insulin Regular 100 unit 32.583 35.968 In Sodium Chloride 0.9% 100 ml @ Per Protocol IV .Q0M JOSÉ MIGUEL Rx#:[id number] Sodium Chloride 0.9% 1, 450 000 ml @ 50 mls/hr IV . Q20H JOSÉ MIGUEL Rx#:[id number] Oral 200 Output: Urine 1470 1400 800 Other: Voiding Method Indwelling Catheter Indwelling Catheter Indwelling Catheter # Voids 3 ABP, PAP, CO, CI - Last Documented Arterial Blood Pressure 165/47 - Exam Physical examination: PHYSICAL EXAMINATION: Patient is resting comfortably in bed. VITAL SIGNS: Blood pressure is [141/89]. Heart rate is [72]. Respiration is [16] . Temperature is [98.0]. HEENT: Head is atraumatic, neck is supple, there were no carotid bruits. CHEST: Lungs are clear to auscultation and percussion. CARDIAC: S1, S2 normal rate and rhythm. There is no murmur. ABDOMEN: Soft and nontender. Bowel sounds are present. EXTREMITIES: There is no pedal edema. Peripheral pulses are present. Neurological examination: Patient is examined today on the medical floor. He was transferred out of the intensive care unit yesterday. He is more awake and alert today. Cranial nerves II through XII are grossly intact. No evidence of anisocoria of significance. Motor examination reveals left-sided hemiparesis 3+/5 on the left side. The deep tendon reflexes are 1+ and symmetric. Plantar responses flexor bilaterally. Coordination and gait cannot be assessed in this patient at this time. - Labs CBC & Chem 7: 05/18/17 05:57 05/18/17 05:57 Labs: Abnormal Lab Results - Last 24 Hours (Table) 05/17/17 05/17/17 05/17/17 Range/Units 17:47 19:10 21:00 WBC (3.8-10.6) k/uL RBC (4.30-5.90) m/uL Hgb (13.0-17.5) gm/dL Hct (39.0-53.0) % MCV (80.0-100.0) fL Plt Count (150-450) k/uL Neutrophils # (1.3-7.7) k/uL ABG Total CO2 26 H (19-24) mmol/L BUN (9-20) mg/dL Creatinine (0.66-1.25) mg/dL Glucose (74-99) mg/dL POC Glucose (mg/dL) 141 H 140 H (75-99) mg/dL 05/17/17 05/18/17 05/18/17 Range/Units 23:00 00:54 03:10 WBC (3.8-10.6) k/uL RBC (4.30-5.90) m/uL Hgb (13.0-17.5) gm/dL Hct (39.0-53.0) % MCV (80.0-100.0) fL Plt Count (150-450) k/uL Neutrophils # (1.3-7.7) k/uL ABG Total CO2 (19-24) mmol/L BUN (9-20) mg/dL Creatinine (0.66-1.25) mg/dL Glucose (74-99) mg/dL POC Glucose (mg/dL) 156 H 157 H 153 H (75-99) mg/dL 05/18/17 05/18/17 05/18/17 Range/Units 04:55 05:57 05:57 WBC 12.0 H (3.8-10.6) k/uL RBC 2.98 L (4.30-5.90) m/uL Hgb 9.8 L (13.0-17.5) gm/dL Hct 30.3 L (39.0-53.0) % MCV 101.6 H (80.0-100.0) fL Plt Count 452 H (150-450) k/uL Neutrophils # 9.4 H (1.3-7.7) k/uL ABG Total CO2 (19-24) mmol/L BUN 80 H* (9-20) mg/dL Creatinine 1.99 H (0.66-1.25) mg/dL Glucose 141 H (74-99) mg/dL POC Glucose (mg/dL) 140 H (75-99) mg/dL 05/18/17 05/18/17 Range/Units 11:56 16:50 WBC (3.8-10.6) k/uL RBC (4.30-5.90) m/uL Hgb (13.0-17.5) gm/dL Hct (39.0-53.0) % MCV (80.0-100.0) fL Plt Count (150-450) k/uL Neutrophils # (1.3-7.7) k/uL ABG Total CO2 (19-24) mmol/L BUN (9-20) mg/dL Creatinine (0.66-1.25) mg/dL Glucose (74-99) mg/dL POC Glucose (mg/dL) 186 H 198 H (75-99) mg/dL Microbiology - Last 24 Hours (Table) 05/12/17 21:20 Blood Culture - Preliminary Blood No Growth after 120 hours Assessment and Plan (1) Cardiopulmonary arrest with successful resuscitation Current Visit: Yes Status: Acute Code(s): I46.9 - CARDIAC ARREST, CAUSE UNSPECIFIED SNOMED Code(s): 642208954 (2) Anoxic encephalopathy Current Visit: Yes Status: Acute Code(s): G93.1 - ANOXIC BRAIN DAMAGE, NOT ELSEWHERE CLASSIFIED SNOMED Code(s): 424385279 (3) History of right-sided carotid endarterectomy Current Visit: Yes Status: Acute Code(s): Z98.890 - OTHER SPECIFIED POSTPROCEDURAL STATES SNOMED Code(s): 868697918 (4) Diabetes mellitus type 2 in obese Current Visit: Yes Status: Chronic Code(s): E11.69 - TYPE 2 DIABETES MELLITUS WITH OTHER SPECIFIED COMPLICATION; E66.9 - OBESITY, UNSPECIFIED SNOMED Code(s): 32500106 (5) Paroxysmal atrial fibrillation Current Visit: Yes Status: Chronic Code(s): I48.0 - PAROXYSMAL ATRIAL FIBRILLATION SNOMED Code(s): 007376379 Plan: This patient is a 76-year-old male who is status post right carotid endarterectomy followed by acute cardiopulmonary arrest 2 days following surgery. He was in the intensive care unit up until yesterday. He was transferred to [facility] care floor yesterday afternoon and showed some signs of increased mental status changes. He was sent for a stat computed tomography scan of the brain which came back negative for any acute changes. Patient had a follow-up computed tomography scan of the brain today results of which are noted above. Patient seems to be back to his normal level of function cognitively. He had a repeat computed tomography scan of the brain which confirms a right hemispheric stroke. His neurological examination reveals left- sided hemiparesis. Patient was evaluated today for possible inpatient rehab placement. We will await further recommendations from Dr. Morrow. Would continue current treatment plans for this patient. His overall prognosis was discussed at length today with the patient's who is at bedside. All of her questions were answered. His overall prognosis remains guarded.
[2017-05-19 02:17] LABS: Glucose,Whole Blood 239 mg/dL (75-99)
[2017-05-19] MEDS: PIPERACILLIN-TAZOBACTAM 3.375 GM in DEXTROSE/WATER 1 50ML.BAG IVPB SCH ×3 (03:38→20:24)
[2017-05-19 05:57] LABS: Glucose,Whole Blood 237 mg/dL (75-99)
[2017-05-19] MEDS: CARVEDILOL 12.5 MG TAB PO SCH ×2 (06:31→16:52)
[2017-05-19] MEDS: PANTOPRAZOLE 40 MG TABLET PO SCH (06:32)
[2017-05-19] MEDS: INSULIN ASPART 100 UNIT/ML 1 ML 10 ML VIAL SQ SCH ×4 (06:36→22:02)
[2017-05-19 07:02] LABS: Basophils % (A) 0 %; Eosinophils # (A) 0.6 k/uL (0-0.7); Eosinophils % (A) 5 %; HCT 30.5 % (39.0-53.0); HGB 9.8 gm/dL (13.0-17.5); Hypochromasia Slight; Lymphocytes # (A) 1.2 k/uL (1.0-4.8); Lymphocytes % (A) 11 %; MCH 33.1 pg (25.0-35.0); MCHC 32.2 g/dL (31.0-37.0); Macrocytosis Slight; Mean Platelet Volume 8.3; Monocytes # (A) 0.5 k/uL (0-1.0); Monocytes % (A) 5 %; Neutrophils # (A) 8.5 k/uL (1.3-7.7); Neutrophils % (A) 77 %; Platelet Count 420 k/uL (150-450); RBC 2.97 m/uL (4.30-5.90); RDW 14.5 % (11.5-15.5); WBC 11.1 k/uL (3.8-10.6)
[2017-05-19 07:13] LABS: Albumin 3.6 g/dL (3.5-5.0); Calcium 9.1 mg/dL (8.4-10.2); Total Bilirubin 0.8 mg/dL (0.2-1.3); Total Protein 6.9 g/dL (6.3-8.2)
[2017-05-19] MEDS: IPRATROPIUM-ALBUTEROL 3 ML NEB INHALATION SCH ×4 (07:28→20:41)
--- NOTE | 2017-05-19 08:35 | P.PN ---
Subjective Progress Note Date: 05/19/17 Principal diagnosis: Hemodynamically severe right internal carotid artery stenosis. Previous medical history of hypertension, gout, hyperlipidemia, diabetes, insomnia, atrial fibrillation with ablation, coronary artery disease, obstructive sleep apnea with CPAP use. POD #12 elective right carotid endarterectomy with patch angioplasty. Postoperative hematoma present at surgical site, and expected outcome given CPR during resuscitation as well as long-standing history of anticoagulation. Status post cardiopulmonary arrest with resuscitation, suspect non-STEMI. Acute systolic heart failure with an ejection fraction less than 20%. Acute kidney injury likely secondary to cardiac arrest with 30 minute down time. Patient's currently laying in bed in no acute distress. Denies pain, shortness of breath. Patient is alert, does have left-sided weakness but is able to move all 4 extremities. Objective - Vital Signs Vital signs: Vital Signs Temp 97.9 F 05/18/17 20:00 Pulse 76 05/19/17 07:40 Resp 16 05/19/17 03:33 BP 143/63 05/19/17 03:33 Pulse Ox 100 05/19/17 03:33 Intake & Output 05/18/17 05/19/17 05/19/17 18:59 06:59 18:59 Intake Total 900 400 240 Output Total 800 1225 Balance 100 -825 240 Weight 130 kg 127.5 kg Intake: Intake, IV Titration 500 400 Amount ACETAMINOPHEN IV (For NPO 50 ) 1,000 mg In Empty Bag 1 bag @ 400 mls/hr IVPB Q6HR JOSÉ MIGUEL Rx#:[id number] Sodium Chloride 0.9% 1, 450 400 000 ml @ 50 mls/hr IV . Q20H JOSÉ MIGUEL Rx#:[id number] Oral 400 240 Output: Urine 800 1225 Other: Voiding Method Indwelling Catheter Indwelling Catheter # Voids 1 ABP, PAP, CO, CI - Last Documented Arterial Blood Pressure 165/47 - Constitutional General appearance: Present: cooperative, no acute distress, obese - Respiratory Details: Consults wedge bilaterally. Respirations even, nonlabored. Currently on 3 L nasal cannula with oxygen saturation 98%. - Cardiovascular Details: S1, S2 present. Regular rate and rhythm, sinus bradycardia to sinus rhythm on telemetry. Palpable peripheral pulses bilaterally. No edema present. No calf pain or tenderness noted. SCDs present. - Gastrointestinal Gastrointestinal Comment(s): Abdomen soft, nontender, nondistended. Active bowel sounds 4 quadrants. Tolerating diet. - Genitourinary Genitourinary Comment(s): Boothe present draining clear, yellow urine. Output 375-850 ml at a time - Integumentary Integumentary Comment(s): Skin is warm and dry with evidence of good perfusion. Right anterior neck incision well approximated and healing. Neck very ecchymotic. Hematoma present under neck incision however this has not increased in size. - Neurologic Neurologic Comment(s): Pupils are equal, round, and reactive to light and accommodation. Patient does have left arm drift. - Musculoskeletal Musculoskeletal Comment(s): Moves all extremities. Musculoskeletal: Present: left sided weakness - Psychiatric Psychiatric Comment(s): Alert and oriented to person place, thinks it is May 2015. - Allied health notes Allied health notes reviewed: nursing - Labs CBC & Chem 7: 05/19/17 06:05 05/19/17 06:05 Labs: Abnormal Lab Results - Last 24 Hours (Table) 05/18/17 05/18/17 05/18/17 Range/Units 11:56 16:50 20:45 WBC (3.8-10.6) k/uL RBC (4.30-5.90) m/uL Hgb (13.0-17.5) gm/dL Hct (39.0-53.0) % MCV (80.0-100.0) fL Neutrophils # (1.3-7.7) k/uL BUN (9-20) mg/dL Creatinine (0.66-1.25) mg/dL Glucose (74-99) mg/dL POC Glucose (mg/dL) 186 H 198 H 237 H (75-99) mg/dL 05/19/17 05/19/17 05/19/17 Range/Units 02:14 05:54 06:05 WBC 11.1 H (3.8-10.6) k/uL RBC 2.97 L (4.30-5.90) m/uL Hgb 9.8 L (13.0-17.5) gm/dL Hct 30.5 L (39.0-53.0) % MCV 103.0 H (80.0-100.0) fL Neutrophils # 8.5 H (1.3-7.7) k/uL BUN (9-20) mg/dL Creatinine (0.66-1.25) mg/dL Glucose (74-99) mg/dL POC Glucose (mg/dL) 239 H 237 H (75-99) mg/dL 05/19/17 Range/Units 06:05 WBC (3.8-10.6) k/uL RBC (4.30-5.90) m/uL Hgb (13.0-17.5) gm/dL Hct (39.0-53.0) % MCV (80.0-100.0) fL Neutrophils # (1.3-7.7) k/uL BUN 68 H (9-20) mg/dL Creatinine 1.95 H (0.66-1.25) mg/dL Glucose 233 H (74-99) mg/dL POC Glucose (mg/dL) (75-99) mg/dL Microbiology - Last 24 Hours (Table) 05/12/17 21:20 Blood Culture - Final Blood No Growth after 144 hours Assessment and Plan (1) Cardiopulmonary arrest with successful resuscitation Current Visit: Yes Status: Acute Code(s): I46.9 - CARDIAC ARREST, CAUSE UNSPECIFIED SNOMED Code(s): 079868816 (2) Diabetes mellitus type 2 in obese Current Visit: Yes Status: Chronic Code(s): E11.69 - TYPE 2 DIABETES MELLITUS WITH OTHER SPECIFIED COMPLICATION; E66.9 - OBESITY, UNSPECIFIED SNOMED Code(s): 62814124 (3) GERD (gastroesophageal reflux disease) Current Visit: Yes Status: Chronic Code(s): K21.9 - GASTRO-ESOPHAGEAL REFLUX DISEASE WITHOUT ESOPHAGITIS SNOMED Code(s): 538257820 (4) Gout Current Visit: Yes Status: Chronic Code(s): M10.9 - GOUT, UNSPECIFIED SNOMED Code(s): 61816808 (5) History of coronary artery disease Current Visit: Yes Status: Chronic Code(s): Z86.79 - PERSONAL HISTORY OF OTHER DISEASES OF THE CIRCULATORY SYSTEM SNOMED Code(s): 480483944 (6) Hyperlipidemia Current Visit: Yes Status: Chronic Code(s): E78.5 - HYPERLIPIDEMIA, UNSPECIFIED SNOMED Code(s): 67739702 (7) Hypertension Current Visit: Yes Status: Chronic Code(s): I10 - ESSENTIAL (PRIMARY) HYPERTENSION SNOMED Code(s): 06519954 (8) Morbid obesity Current Visit: Yes Status: Chronic Code(s): E66.01 - MORBID (SEVERE) OBESITY DUE TO EXCESS CALORIES SNOMED Code(s): 195341557 (9) Obstructive sleep apnea Current Visit: Yes Status: Chronic Code(s): G47.33 - OBSTRUCTIVE SLEEP APNEA (ADULT) (PEDIATRIC) SNOMED Code(s): 50363907 (10) Paroxysmal atrial fibrillation Current Visit: Yes Status: Chronic Code(s): I48.0 - PAROXYSMAL ATRIAL FIBRILLATION SNOMED Code(s): 084980423 (11) Stenosis of right carotid artery Current Visit: Yes Status: Chronic Code(s): I65.21 - OCCLUSION AND STENOSIS OF RIGHT CAROTID ARTERY SNOMED Code(s): 683758435989761 Plan: 1. Continue current medical management per primary care service. 2. Cardiology management for post myocardial infarction, cardiopulmonary arrest. 3. Wean O2 as tolerated. Encourage incentive spirometry use 10 times every hour while awake. 4. GI/DVT prophylaxis. 5. Will continue to monitor daily labs and x-rays. 6. Maintain stable blood pressure. 7. Increase activity as tolerated. PT/OT following. Patient will need aggressive physical therapy when discharged. 8. Reorient patient as needed. 9. Right carotid endarterectomy site remains stable. 10. Discharge planning in progress. Patient will need rehabilitation upon discharge. Dr. Morrow was consulted. Time with Patient: Greater than 30
[2017-05-19] MEDS: HEPARIN SODIUM,PORCINE 5,000 UNIT/ML 1 ML VIAL SQ SCH ×2 (08:45→16:52)
[2017-05-19] MEDS: SENNOSIDES-DOCUSATE SODIUM 1 EACH TAB PO SCH ×2 (08:46→20:25)
[2017-05-19] MEDS: COLCHICINE 0.6 MG TAB PO SCH (08:46)
[2017-05-19] MEDS: PREGABALIN 75 MG CAP PO SCH ×2 (08:46→20:24)
[2017-05-19] MEDS: ASPIRIN 325 MG TAB PO SCH (08:46)
[2017-05-19 11:18] LABS: Glucose,Whole Blood 249 mg/dL (75-99)
[2017-05-19] MEDS: HYDROcodone/APAP 10-325MG 1 EACH TAB PO PRN (13:55)
--- NOTE | 2017-05-19 14:03 | P.PN ---
Subjective Progress Note Date: 05/19/17 76-year-old male who underwent elective right carotid endarterectomy with patch angioplasty on 05/06/[address] Mckenzie was consulted for medical management. The patient has a history of bilateral carotid stenosis, atrial fibrillation, coronary disease, diabetes mellitus, gastroesophageal reflux disease, hyperlipidemia, hypertension, osteoarthritis, and sleep apnea. 05/07/2017 The patient was seen and examined in the intensive care unit on rounds Dr. Mckenzie. The patient is sitting up in the chair. Family is at the bedside. The patient remains on a nitro drip at 60 mcg/min. Systolic blood pressures ranging in the 140s. The patient is complaining of pain at the surgical site. Dressing is in place. Swelling is noted near surgical site. Patient denies shortness of breath or coughing. Denies chest pain or pressure. Denies nausea or vomiting. States he is tolerating PO intake well without nausea or vomiting. 05/08/2017 Patient remains in intensive care unit. He is postop day #2 right carotid endarterectomy. The patient is sitting up in the chair. the patient's nitro drip has been weaned off. He was started on Norvasc 10 mg daily yesterday along with hydralazine 50 mg by mouth 3 times a day. Patients blood sugars remain elevated in the 200s. Patient utilizes an insulin pump at home. Patient 's insulin pump is currently not with him as it was empty and patient's was going to bring his insulin pump back to the hospital after she refilled it. patient remains on 6 L nasal cannula with oxygen saturations greater than 92%. He denies shortness of breath. Denies chest pain or pressure. Tolerating by mouth intake without nausea or vomiting. WBC 13.2. Hemoglobin 10.6. BUN 38. Creatinine 1.40. 05/09/2017-Notes per Dr. Mckenzie 05/10/2017-Notes per Dr. Mckenzie 05/11/2017 Patient seen and examined at the bedside on rounds with Dr. Corona. Patient went into cardiac arrest on 05/08/2017 and was successfully resuscitated after approximately 20 minutes of CPR. Patient remains intubated in the intensive care unit on mechanical ventilation. Patient is currently on IV propofol secondary to patient biting on his ET tube and bucking the ventilator. Sedation holiday has not been performed per nursing secondary to hemodynamic instability. Patient remains on 50% FiO2. Patient has required vasopressor secondary to hypotension. Levophed is currently off this morning. Chest x-ray this morning reveals mild cardio megaly with persistent central bilateral perihilar edema and/or infiltrates. ARDS is not excluded. Patient remains on Lasix drip. Patient also remains on insulin drip. Creatinine this morning is 3.30. Nephrology is on consult. Patient underwent CT of the brain which was negative for an acute process. 05/12/2017 Patient seen and examined at the bedside on rounds with Dr. Corona. Patient remains intubated in the intensive care unit. Family at the bedside. Patient sedation has been held for approximately 40 minutes. Patient is not following commands but is moving all extremities. Patient's eyes are open but patient is not tracking currently. Tube feedings are infusing. Patient is tolerating well. Patient has not had a bowel movement per nursing and just received a rectal suppository. Patient remains on insulin drip. Currently at 8.5 units an hour. Lasix drip was discontinued this morning per nephrology. Creatinine 3.10 this morning. Urinary output remains adequate. Hematuria is improving. Blood pressure is currently elevated in the 170s which may be secondary to agitation as sedation has been on hold. Nursing reports blood pressure has been running in the 140s when patient is sedated. 05/13/2017 Patient seen and examined at the bedside on rounds with Dr. Corona. is at the bedside. Per nursing, patients propofol was off yesterday and patient was able to follow some simple commands. Patient became agitated this morning and sedation was resumed. It has since been turned off. Patient does remain lethargic. He is able to open his eyes to commands and slightly wiggle his toes upon command when asked repeatedly, but then drifts back off to sleep. Patient remains on an insulin dip at 11.5 units an hour. Blood sugars are 161-196. Boothe remains intact with blood tinged urine. Tube feeding is infusing at 45 cc/ hr which is goal. Patient tolerated well. Bowel movement yesterday. Blood pressure remains elevated at times. Hydralazine PRN was ordered yesterday. Coreg has been ordered today per pulmonary. 05/14/2017 Patient seen and examined at the bedside on rounds with Dr. Corona. Patient remains on mechanical ventilation. FiO2 has been decreased to 40% per pulmonary. Patient remains off sedation and is able to follow simple commands. Tube feeding is infusing at 45 mL an hour which is goal. Patient is tolerating well. Indwelling urinary catheter remains intact with blood-tinged urine. Blood sugars are ranging between 140 and 174. Patient remains on an insulin drip. 05/15/2017 patient seen and examined at the bedside in the intensive care unit. Patient has been asked to be and is currently on BiPAP with FiO2 of 40%. Oxygen saturation is greater than 92%. Patient continues to have left sided weakness and underwent CT of the brain. CT of the brain reveals small right posterior frontal lobe cortical infarct. Evidence of subacute lacunar infarct in the right internal capsule that appears new in comparison to old exam. his aspirin was increased to 325 mg daily per neurology. chest x-ray this morning reveals improvement in pulmonary vascular congestion and persistent trace left pleural effusion. patient's sodium this morning is 153. Nephrology ordered D5W at 50 cc for 6 hours. Patient's potassium remains borderline low as well. Potassium supplementation ordered per nephrology. blood sugars are ranging from 137-155. Patient remains on insulin drip. 05/16/2017-Note per Dr. Mckenzie 05/17/2017-Note per Dr. Mckenzie 05/18/2017 Patient seen and examined at the bedside. patient remains hemodynamically stable. On 3 L nasal cannula with oxygen saturations greater then 92%. Most recent blood pressure 128/60. Patient is afebrile. Heart rate is in the 80s. Patient underwent modified barium swallow and passed. Patient able to tolerable all consistencies of food. Patient has been placed on a heart healthy diet. Dr. Morrow has been consulted for possible inpatient rehab. Patient was found to have unequal pupils and underwent CT scan of the brain on 05/17/2017 which was negative for an acute intercranial hemorrhage or midline shift. There is diffuse age-related cerebral atrophy and chronic small vessel ischemic changes noted. Enchepalomalacia in the right frontal lobe from prior infarct. Patient underwent a repeat CT of the brain on 05/18/2017 which revealed focal cortical and subcortical hypodensity posterior frontal lobe is now seen compatible with subacute infarct. No acute intercranial hemorrhage or midline shift. Chest x-ray from 05/17/2017 reveals retrocardiac opacity that may represent a small pleural effusion with atelectasis and/or pneumonia. Enlargement pulmonary vasculature may relate to underlying pulmonary arterial hypertension. 05/19/2017 Patient seen and examined at the bedside. Spouse at the bedside. Patient is awake and alert. Patient remains hemodynamically stable. 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 Blood pressure stable with a last reading of 137/59. Patient is on 3 L nasal cannula with oxygen saturations greater than 92%. Patient underwent modified barium swallow yesterday and passed. Patient is tolerating PO intake without nausea or vomiting. patient with generalized complaints of pain. Patient was started on [place] 10 every 6 hours when necessary yesterday per Dr. Mckenzie. WBC this morning is 11.1, down from 12.0 yesterday. hemoglobin remained stable at 9.8. Potassium 4.0. BUN 60. Creatinine 1.95. Patient's sugars have remained elevated ranging from 198- 239. Objective - Vital Signs Vital signs: Vital Signs Temp 97.6 F 05/19/17 08:48 Pulse 60 05/19/17 08:48 Resp 16 05/19/17 08:48 BP 137/59 05/19/17 08:48 Pulse Ox 97 05/19/17 08:48 Intake & Output 05/18/17 05/19/17 05/19/17 18:59 06:59 18:59 Intake Total 900 400 240 Output Total 800 1225 Balance 100 -825 240 Weight 130 kg 127.5 kg Intake: Intake, IV Titration 500 400 Amount ACETAMINOPHEN IV (For NPO 50 ) 1,000 mg In Empty Bag 1 bag @ 400 mls/hr IVPB Q6HR JOSÉ MIGUEL Rx#:[id number] Sodium Chloride 0.9% 1, 450 400 000 ml @ 50 mls/hr IV . Q20H JOSÉ MIGUEL Rx#:[id number] Oral 400 240 Output: Urine 800 1225 Other: Voiding Method Indwelling Catheter Indwelling Catheter Indwelling Catheter # Voids 1 ABP, PAP, CO, CI - Last Documented Arterial Blood Pressure 165/47 - Exam GENERAL: This is a 76-year-old male who is awake and alert. HEENT: Head is atraumatic, normocephalic. Pupils are equal, round, and reactive to light. Sclerae anicteric. Conjunctivae are clear. Mucus membranes of the mouth are moist. Neck is supple. Extensive ecchymosis noted throughout neck. RESPIRATORY: Diminished throughout. Patient maintaining oxygen saturation greater than 92%. No chest wall tenderness is noted on palpation or with deep breathing. CARDIOVASCULAR: Regular rate and rhythm. S1 and S2 noted. No systolic or diastolic murmur auscultated. No JVD noted. No S3 or S4 noted. GASTROINTESTINAL: No distention noted. Abdomen soft and round. Normal active bowel sounds auscultated x 4 quadrants. No pain or tenderness noted upon palpation. INTEGUMENTARY: Ecchymosis noted around surgical area. No cyanosis. No jaundice. EXTREMITIES: 1+ peripheral pulses. trace bilateral lower extremity edema No calf tenderness noted. NEUROLOGIC/PSYCHIATRIC: alert and oriented 2-3. patient able to move all extremities, left side remains weak. Speech is clear. - Labs CBC & Chem 7: 05/19/17 06:05 05/19/17 06:05 Labs: Abnormal Lab Results - Last 24 Hours (Table) 05/18/17 05/18/17 05/18/17 Range/Units 11:56 16:50 20:45 WBC (3.8-10.6) k/uL RBC (4.30-5.90) m/uL Hgb (13.0-17.5) gm/dL Hct (39.0-53.0) % MCV (80.0-100.0) fL Neutrophils # (1.3-7.7) k/uL BUN (9-20) mg/dL Creatinine (0.66-1.25) mg/dL Glucose (74-99) mg/dL POC Glucose (mg/dL) 186 H 198 H 237 H (75-99) mg/dL 05/19/17 05/19/17 05/19/17 Range/Units 02:14 05:54 06:05 WBC 11.1 H (3.8-10.6) k/uL RBC 2.97 L (4.30-5.90) m/uL Hgb 9.8 L (13.0-17.5) gm/dL Hct 30.5 L (39.0-53.0) % MCV 103.0 H (80.0-100.0) fL Neutrophils # 8.5 H (1.3-7.7) k/uL BUN (9-20) mg/dL Creatinine (0.66-1.25) mg/dL Glucose (74-99) mg/dL POC Glucose (mg/dL) 239 H 237 H (75-99) mg/dL 05/19/17 Range/Units 06:05 WBC (3.8-10.6) k/uL RBC (4.30-5.90) m/uL Hgb (13.0-17.5) gm/dL Hct (39.0-53.0) % MCV (80.0-100.0) fL Neutrophils # (1.3-7.7) k/uL BUN 68 H (9-20) mg/dL Creatinine 1.95 H (0.66-1.25) mg/dL Glucose 233 H (74-99) mg/dL POC Glucose (mg/dL) (75-99) mg/dL Microbiology - Last 24 Hours (Table) 05/12/17 21:20 Blood Culture - Final Blood No Growth after 144 hours Assessment and Plan Plan: ASSESSMENT: Bilateral carotid stenosis, s/p right carotid endarterectomy, POD #14 Acute cardiopulmonary arrest requiring mechanical ventilation, likely secondary to acute pulmonary edema with a downtime of at least 20 minutes, extubated 05/14 Acute exacerbation of systolic congestive heart failure, ejection fraction 20% subacute lacunar infarct involving the right internal capsule with left-sided hemiparesis Suspected acute non-ST elevated [place] Acute kidney injury, suspect secondary to prolonged cardiopulmonary arrest and diuresis, improving Chronic disease, stage III, secondary to nephrosclerosis baseline creatinine 1.2 Hypoxic/anoxic encephalopathy secondary to prolonged cardiopulmonary arrest Hypertension Diabetes mellitus, type II, utilizing insulin pump at home Coronary artery disease Atrial fibrillation, on snf anticoagulation with Pradaxa Hematuria, thought to be secondary to Pradaxa which has been placed on hold, improving Hyperlipidemia Hypernatremia, resolved hypokalemia, secondary to diuresis, resolved Osteoarthritis with previous multiple joint replacements Morbid obesity: BMI 42.8 PLAN: Continue NovoLog sliding scale coverage AC/HS Begin Levemir 38 units at bedtime Physical therapy and occupational therapy Home meds as appropriate Monitor labs GI prophylaxis: Protonix 40mg PO daily DVT prophylaxis: CONCEPCIÓN hose and Venodyne's to bilateral lower extremities Monitor vital signs and address as appropriate Further recommendations pending patient's course Discharge planning: Dr. Morrow was consulted for possible inpatient rehab. Inpatient rehab VS subacute rehab. Nurse practitioner note has been reviewed by physician. Signing provider agrees with the documented findings, assessment, and plan of care.
--- NOTE | 2017-05-19 14:30 | P.PN ---
Subjective Progress Note Date: 05/19/17 Principal diagnosis: Acute cardiopulmonary arrest post right carotid endarterectomy. This is a 76-year-old male patient with status post carotid endarterectomy on the right and the patient is postop day #6. Note that the patient went into acute cardio pulmonary arrest postop day #2 and he was done with initially acute respiratory arrest and subsequent cardiac arrest for a total of 30 minutes during which the patient received a total of 10 mg of epinephrine and 2 A of bicarb and subsequently the patient was intubated and placed on mechanical ventilator and since then the patient has remained intubated. On today's evaluation of 05/11/2017, the patient is sedated on Diprivan at 45 mg per KG pigmented. The patient is heavily sedated. He occasionally bites the tube and he withdraws to some stimulation to his lower extremities bilaterally. Hemodynamically, the patient is on no pressors. The patient is still in pulmonary edema and his chest x-ray and the patient is currently on Lasix drip at 10 mg an hour. Urine output is more than 100 mL an hour daily basis. The urine is somewhat bloody as the patient had some bleeding related to Pradaxa intake and Pradaxa is currently off. The patient is on assist- control mode of ventilation at the rate of 26, tidal volume 500, FiO2 of 50% and a PEEP of 15. The blood gases from this morning showed a pH of 7.49, with a pCO2 of 39 and pO2 of 113. The chest x-ray still showing pulmonary edema. Minimal amount of bloody secretions from his orotracheal tube. He is synchronous with the mechanical ventilator. Breath sounds are equal and symmetrical bilaterally. Echocardiogram showed an ejection fraction of less than 20%. The patient is still in acute kidney injury. Creatinine is up to 3.3 yet he is nonoliguric at this stage and nephrology is on the case. We are going to continue the Lasix drip at the same rate for now. The patient is being controlled with an insulin drip in regards to his blood sugar. The patient has not been given any sedation holiday since his cardiac/pulmonary arrest. The patient is on tube feeds and receding vital high protein at the rate of 60 mL an hour. Otherwise, no other significant events overnight. The CAT scan of the brain that was obtained on showed no acute abnormalities are then chronic cerebral atrophy. The patient has a hematoma over the right neck area which is currently stable and soft and the incision site is clean. On 05/13/2079 I'm seeing this patient for a follow-up in the patient was given a sedation holiday and he is opening up his eyes. He is not following any simple commands yet. No preferential gaze. No nystagmus. No agitation. He is doing some limited activity as far as movement in his upper extremities. He has a decent cough. The patient has no seizure activity. Incision over the right neck is clean and dry and the ecchymosis and hematoma over the right neck area soft and has not progressed. He is afebrile. He is on a mechanical ventilator. The PEEP has been drop down to 10 with an FiO2 of 50% and the patient remains on a tidal volume of 500 with a rate of 26. Chest x-ray shows some improvement in the volume status. The blood gases from today showed a pH of 7.49 with a pCO2 of 40 and pO2 of 74. The patient is on IV Lasix 60 mg every 8 hours. He is getting into a negative fluid balance. Hematuria is also improving. Otherwise the patient is producing adequate amount of urine output. Creatinine today is at 3.1 which is stable and not worse compared to yesterday. He is afebrile. He is tolerating his tube feeds. He was given a Dulcolax suppository. He is on no pressors. No other significant events overnight. Family is at the bedside. On 05/13/2017 I'm seeing this patient for a follow-up. The patient remains intubated on a mechanical ventilator. Note that the patient was taken off sedation throughout the day yesterday. He was waking up and he was opening his eyes spontaneously. He was not following commands initially. Subsequently he became more responsive and he follows some simple commands and today's able to wiggle his toes and move his fingers upon demand. He is calm and comfortable he is not agitated. Earlier this morning while being positioned in bed the patient became a bit tachycardic and tachypneic and agitated. He had to be placed back on Diprivan for a brief period of time and currently is back to being off sedation. He is still on a mechanical ventilator. I managed to drop the PEEP down to 8 and this morning he is an assist-control mode at the rate of 26, tidal volume of 500 with a PEEP of 8 and FiO2 of 40%. Blood gases showed a pH of 7.55 with a pCO2 of 39 and pO2 of 80. The chest x-ray from today still showing some but the pulmonary vessel congestion/edema. Nevertheless, the patient was diuresed adequately with accommodation of Lasix and Zaroxolyn the patient has been in a negative fluid balance of at least 5-6 L over the past 24 hours. This has resulted in to some metabolic alkalosis and the pH is up to 7.5 and a serum bicarb is up to 34. No hematuria this point. He is tolerating his tube feeds. No fever or chills. The incision site over the right neck area dry clean and intact. Blood pressure is fluctuating at times it's quite high requiring hydralazine pushes for blood pressure control. Cardiac rhythm is still sinus. He is off antibiotics for now. On 05/14/2017, I'm seeing this patient for a follow-up. The patient is being given a sedation holiday. He stayed off sedation throughout the day yesterday and he had to be placed on sedation again this morning. He is only on 20 mics of the prevent. He was awake and he was following commands yesterday. This morning, he is still on a mechanical ventilator. His PEEP has been drop down to 5. The patient is assist-control mode with a tidal volume 500, rate of 26 and the FiO2 down to 40%. Chest x-ray findings are stable. The patient was diuresed aggressively with IV Lasix and Zaroxolyn. Her net fluid balance over the past 24 hours is -3.6 L in the prior to that was -6.3 L. The swelling in the upper and lower occiput is improved and the patient's volume status also improved. The patient has a mild degree of metabolic alkalosis with a pH of 7.52 with a pCO2 of 42 and pO2 of 65 on today's blood gases. The renal function is still impaired. BN is up 214. Creatinine is up to 3.2. Lasix dose was cut down to 40 mg twice a day. Nephrology is on the case. No other significant events overnight. The patient remains in a normal sinus rhythm. The patient is off anticoagulants. The urine output is still somewhat bloody. There are no clots. The patient is seen again today in 05/15/2017 in follow-up in the intensive care unit. He was successfully extubated yesterday. He was placed on BiPAP 20/ 10 at 40% [id number] the evening.this morning he is awake and alert and following simple commands.computed tomography scan of the brain reveals old small right posterior frontal lobe cortical infarct. There is evidence of a subacute lacunar infarct in the right internal capsule that appears new compared to recent exam. His left lower extremity is quite weak his left upper extremity slightly weaker than the right. He is answering questions appropriately. He was removed from the BiPAPand placed on 40% Ventimask. He is maintaining O2 saturations in the 90s. Chest x-ray reveals improvement in the pulmonary vascular congestion. There is trace left pleural effusion. He remains on bronchodilators and Zosyn. White count 15.2. Hemoglobin 9.9.creatinine 3.30 BUN 132. He is receiving free water. He remains in a negative balance. He remains in sinus rhythm somewhat bradycardic. His family is at the bedside. The patient is seen again today 05/16/2017 in follow-up in the intensive care unit. He is awake and alert and in no acute distress. He denies any shortness of breath, cough or congestion. He is maintaining good O2 saturations in the upper 90s on 4 L/m per nasal cannula. He remains on Zosyn. He is currently in sinus bradycardia with occasional PVC. Blood pressure stable. He remains quite weak but is able to move all 4 extremities. Left side weaker than the right. White count 15.0. Hemoglobin 9.6. Sodium 147. BUN 130. Creatinine 3.00. Nephrology is on the case. Diamox was discontinued. He remains on D5W at 50 MLS per hour. Chest x-ray continues to show mild cardiomegaly. There is no new focal airspace opacities effusions or pneumothorax. On 05/17/2017, the patient is being seen for a follow-up. The patient is doing much better. Wide awake and alert and following commands. Left lower extremities weak and left upper extremities weak and this confirms the completion of a stroke. Otherwise, his speech is appropriate. Mentation is within normal limits. Renal function continues to improve. Sodium level is declining. The patient is in sinus rhythm. Hemodynamically stable. Wearing his BiPAP overnight. No other significant events overnight and the patient is currently on 3 L of oxygen by nasal cannula and should be able to move to telemetry. He needs aggressive physical therapy. Reevaluated today on 05/18/2017, patient is doing much better, does not have any specific complaints. Mentation seems to be normal, patient is generally weak, speech is appropriate. Mentation seems to be quite normal. CBC is relatively normal. Renal profile showed OH of 80 creatinine 1.99 Patient was reevaluated today on 05/19/2017, patient seems to be a bit confused, but in no form of distress. The speech pathologist is discussing with him and his the issue of swallowing and feeding. Pulmonary-herbert, no cough no wheezing no shortness of breath no chest pain. Labs were reviewed, BUN is 68 creatinine 1.95 otherwise the remaining labs are unremarkable. Last chest x- ray from 2 days ago showed mostly left basilar atelectasis and small effusion. Objective - Vital Signs Vital signs: Vital Signs Temp 97.7 F 05/19/17 12:08 Pulse 60 05/19/17 12:08 Resp 16 05/19/17 12:08 BP 136/69 05/19/17 12:08 Pulse Ox 94 L 05/19/17 12:08 Intake & Output 05/18/17 05/19/17 05/19/17 18:59 06:59 18:59 Intake Total 900 400 480 Output Total 800 1225 Balance 100 -825 480 Weight 130 kg 127.5 kg Intake: Intake, IV Titration 500 400 Amount ACETAMINOPHEN IV (For NPO 50 ) 1,000 mg In Empty Bag 1 bag @ 400 mls/hr IVPB Q6HR JOSÉ MIGUEL Rx#:[id number] Sodium Chloride 0.9% 1, 450 400 000 ml @ 50 mls/hr IV . Q20H JOSÉ MIGUEL Rx#:[id number] Oral 400 480 Output: Urine 800 1225 Other: Voiding Method Indwelling Catheter Indwelling Catheter Indwelling Catheter # Voids 1 ABP, PAP, CO, CI - Last Documented Arterial Blood Pressure 165/47 - Exam Patient is awake and following some simple commands. HEENT examination is grossly unremarkable. Mucous membranes are moist. No oral lesions. A hematoma can be visualized all over the neck area, APPLYING mainly the right neck area and the incision site is clean. The hematoma itself is soft and non-enlarging at this point. Neck supple. Full range of motion. No adenopathy thyromegaly or neck vein distention. There is tremendous bruising and ecchymoses about the neck from the recent surgery. It's more right than left-sided. There hematoma is stable for now. Cardiovascular examination reveals regular rhythm rate. S1-S2 normal. No S3 or S4. No discernible murmur noted. Heart sounds are distant. Lungs reveal diffuse bilateral rhonchi. Breath sounds are diminished. Some bibasilar crackles. No wheezes. Abdomen soft bowel sounds are heard. No masses or tenderness. Extremities are intact. No cyanosis clubbing or edema. Skin is without rash or lesion. Neurologic the patient has no focal neurological deficit. Patient seems to be confused today, definitely more confused today compared to yesterday. - Labs CBC & Chem 7: 05/19/17 06:05 05/19/17 06:05 Labs: Abnormal Lab Results - Last 24 Hours (Table) 05/18/17 05/18/17 05/19/17 Range/Units 16:50 20:45 02:14 WBC (3.8-10.6) k/uL RBC (4.30-5.90) m/uL Hgb (13.0-17.5) gm/dL Hct (39.0-53.0) % MCV (80.0-100.0) fL Neutrophils # (1.3-7.7) k/uL BUN (9-20) mg/dL Creatinine (0.66-1.25) mg/dL Glucose (74-99) mg/dL POC Glucose (mg/dL) 198 H 237 H 239 H (75-99) mg/dL 05/19/17 05/19/17 05/19/17 Range/Units 05:54 06:05 06:05 WBC 11.1 H (3.8-10.6) k/uL RBC 2.97 L (4.30-5.90) m/uL Hgb 9.8 L (13.0-17.5) gm/dL Hct 30.5 L (39.0-53.0) % MCV 103.0 H (80.0-100.0) fL Neutrophils # 8.5 H (1.3-7.7) k/uL BUN 68 H (9-20) mg/dL Creatinine 1.95 H (0.66-1.25) mg/dL Glucose 233 H (74-99) mg/dL POC Glucose (mg/dL) 237 H (75-99) mg/dL 05/19/17 Range/Units 11:16 WBC (3.8-10.6) k/uL RBC (4.30-5.90) m/uL Hgb (13.0-17.5) gm/dL Hct (39.0-53.0) % MCV (80.0-100.0) fL Neutrophils # (1.3-7.7) k/uL BUN (9-20) mg/dL Creatinine (0.66-1.25) mg/dL Glucose (74-99) mg/dL POC Glucose (mg/dL) 249 H (75-99) mg/dL Microbiology - Last 24 Hours (Table) 05/12/17 21:20 Blood Culture - Final Blood No Growth after 144 hours Assessment and Plan Assessment: 1 right carotid endarterectomy and the patient is postop day #14 2 acute cardio pulmonary arrest. This was not expected, and his acute respiratory failure was also not expected post carotid endarterectomy. 3 CHF with an ejection fraction of less than 20% 4 suspected acute non-STEMI with ST segment depression and some mild troponin leak that peaked at 2.8 with underlying history of coronary artery disease 5 acute kidney injury, improving and the creatinine is down to 2.4 6 acute respiratory failure secondary to above, chest x-ray from today continues to show improvement in the volume status with some residual interstitial edema. 7 diabetes mellitus 8 possible hypoxic/anoxic encephalopathy suspected. computed tomography scan of the brain 05/14/2017 reveals an old small right posterior frontal lobe cortical infarct. There is evidence of a subacute lacunar infarct in the right internal capsule. The patient is awake and alert and following commands. He does have some residual left-sided weakness. 9 obstructive sleep apnea and on BiPAP on outpatient basis at a pressure of 21/ 17 10 hypertension, fluctuating blood pressure 11 hyperlipidemia 12 morbid obesity 13 gout 14 hematoma over the neck especially over the right anterior neck area with a clean incision, postsurgical To get further by the intake of anticoagulants 15 mild hematuria, recovered Recommendation: Continue physical therapy, agree with discharge planning to a rehab facility. Will follow on when necessary basis. Time with Patient: Less than 30
--- NOTE | 2017-05-19 16:05 | P.PN ---
Progress Note - Text Progress Note Date: 05/19/17 Patient seen and examined at bedside. Patient states feeling better today. Has no new complaints. His is at the bedside and states he is slowly getting stronger. He denies any fevers, chills, chest pain or shortness of breath. Physical Exam: Right neck incision site with stable edema, no signs of infection. Incision is intact. +echymosis Neuro exam demonstrates mild left sided weakness. Tongue is midline, no facial droop. A/P: 1. s/p R CEA 2. s/p VDRF secondary to cardiac arrest 3. Subacute infarct with left sided weakness - continue current care. Wean O2, increase activity. - agree with PT/OT treatment. Will likely need inpt rehab. - discharge planning.
[2017-05-19 16:48] LABS: Glucose,Whole Blood 299 mg/dL (75-99)
--- NOTE | 2017-05-19 20:19 | PN ---
PROGRESS NOTE Patient is seen for followup for acute kidney injury secondary to ATN secondary to cardiac arrest, hypotension, hypoperfusion. The patient's renal function has been improving. He also had a component of intravascular volume depletion after aggressive diuresis. His serum creatinine is staying about 1.9 for the last 2 days. EXAMINATION: Patient is comfortable, awake. He is not in any acute distress. Blood pressure is 135/65, heart rate 62 per minute. He is afebrile. HEART: S1, S2. LUNGS: Bilateral breath sounds are heard. Abdomen is soft, nontender, obese. Lower extremities show chronic skin changes. No significant edema is noted. LABS: Show sodium 143, potassium 4.0, BUN 68, serum creatinine 1.95. Hemoglobin 9.8 g/dL. ASSESSMENT: 1. Acute kidney injury, acute tubular necrosis, ischemic, secondary to hypotension, hypoperfusion and cardiac arrest and currently improving. Patient also had a component of intravascular volume depletion, which is now improving and diuretics have been on hold. 2. Status post ventilator-dependent respiratory failure. 3. Status post cardiac arrest. 4. Status post right carotid endarterectomy. 5. Possible aspiration pneumonia maintained on antibiotics. PLAN: Continue off of diuretics for now. Consider discontinuation of Boothe catheter. MMODL / IJN: [id number] /
[2017-05-19 20:59] LABS: Glucose,Whole Blood 297 mg/dL (75-99)
[2017-05-19] MEDS: INSULIN DETEMIR 100 UNIT/ML 10 ML VIAL SQ SCH (22:02)
--- NOTE | 2017-05-19 22:14 | P.PN ---
Subjective Progress Note Date: 05/19/17 This patient is a 76-year-old right-handed white male who was undergone a right carotid endarterectomy and is postoperative day #13 today. Patient was in the intensive care unit where he has been recovering following cardiopulmonary arrest 2 days after his carotid surgery. He was sent for a computed tomography scan of the brain back on 05/14/2017 after his neurological exam reveals some left-sided weakness. The CAT scan of the brain revealed evidence of a subacute lacunar infarct in the right internal capsule. He is conversing with his granddaughter who was at bedside. He does seem to be much more awake and is doing much better since the last few days. He does have significant left-sided weakness consistent with CAT scan findings of acute stroke. We are recommending a follow-up computed tomography scan of the brain to be done tomorrow for follow-up and comparison. The patient has remained hemodynamically stable. He continues to notice left-sided weakness and he will require aggressive physical therapy for further treatment. He did show some change in mental status 2 days ago and was sent for a stat computed tomography scan of the brain. This CAT scan failed to reveal any acute changes. Patient had a follow-up computed tomography scan of the brain done today which reveals a focal cortical and subcortical hypodensity in the right frontal lobe suggesting subacute infarct. No evidence of hemorrhage. He appears to be doing much better today and is showing no further change in mentation. It is possible this may have been a drug effect of some of his pain medication producing an acute mental status change. He is showing signs of significant improvement from a finding of anoxic encephalopathy following his cardiac arrest. We would recommend that he continue with aggressive PT/OT evaluations. Case was discussed at length with the patient and his granddaughter who is at bedside. Patient is being considered for possible subacute rehab placement. All of her questions were answered and she is are aware of our current treatment plan. His neurological exam findings continued reveal left-sided hemiparesis which remains stable as compared to yesterday's exam. We will continue close neurological follow-up with the patient during this admission. Objective - Vital Signs Vital signs: Vital Signs Temp 97.7 F 05/19/17 16:00 Pulse 67 05/19/17 16:51 Resp 18 05/19/17 16:51 BP 135/65 05/19/17 16:00 Pulse Ox 93 L 05/19/17 16:43 Intake & Output 05/18/17 05/19/17 05/19/17 18:59 06:59 18:59 Intake Total 900 400 840 Output Total 800 1225 1200 Balance 100 -825 -360 Weight 130 kg 127.5 kg Intake: Intake, IV Titration 500 400 Amount ACETAMINOPHEN IV (For NPO 50 ) 1,000 mg In Empty Bag 1 bag @ 400 mls/hr IVPB Q6HR JOSÉ MIGUEL Rx#:[id number] Sodium Chloride 0.9% 1, 450 400 000 ml @ 50 mls/hr IV . Q20H JOSÉ MIGUEL Rx#:[id number] Oral 400 840 Output: Urine 800 1225 1200 Other: Voiding Method Indwelling Catheter Indwelling Catheter Indwelling Catheter # Voids 1 # Bowel Movements 2 ABP, PAP, CO, CI - Last Documented Arterial Blood Pressure 165/47 - Exam Physical examination: PHYSICAL EXAMINATION: Patient is resting comfortably in bed. VITAL SIGNS: Blood pressure is [135/65]. Heart rate is [62]. Respiration is [16] . Temperature is [97.7]. HEENT: Head is atraumatic, neck is supple, there were no carotid bruits. CHEST: Lungs are clear to auscultation and percussion. CARDIAC: S1, S2 normal rate and rhythm. There is no murmur. ABDOMEN: Soft and nontender. Bowel sounds are present. EXTREMITIES: There is no pedal edema. Peripheral pulses are present. Neurological examination: Patient is examined today on the medical floor. He is more awake and alert today. Cranial nerves II through XII are grossly intact. No evidence of anisocoria of significance. Motor examination reveals left-sided hemiparesis 3+ /5 on the left side. The deep tendon reflexes are 1+ and symmetric. Plantar responses flexor bilaterally. Coordination and gait cannot be assessed in this patient at this time. - Labs CBC & Chem 7: 05/19/17 06:05 05/19/17 06:05 Labs: Abnormal Lab Results - Last 24 Hours (Table) 05/18/17 05/19/17 05/19/17 Range/Units 20:45 02:14 05:54 WBC (3.8-10.6) k/uL RBC (4.30-5.90) m/uL Hgb (13.0-17.5) gm/dL Hct (39.0-53.0) % MCV (80.0-100.0) fL Neutrophils # (1.3-7.7) k/uL BUN (9-20) mg/dL Creatinine (0.66-1.25) mg/dL Glucose (74-99) mg/dL POC Glucose (mg/dL) 237 H 239 H 237 H (75-99) mg/dL 05/19/17 05/19/17 05/19/17 Range/Units 06:05 06:05 11:16 WBC 11.1 H (3.8-10.6) k/uL RBC 2.97 L (4.30-5.90) m/uL Hgb 9.8 L (13.0-17.5) gm/dL Hct 30.5 L (39.0-53.0) % MCV 103.0 H (80.0-100.0) fL Neutrophils # 8.5 H (1.3-7.7) k/uL BUN 68 H (9-20) mg/dL Creatinine 1.95 H (0.66-1.25) mg/dL Glucose 233 H (74-99) mg/dL POC Glucose (mg/dL) 249 H (75-99) mg/dL 05/19/17 Range/Units 16:43 WBC (3.8-10.6) k/uL RBC (4.30-5.90) m/uL Hgb (13.0-17.5) gm/dL Hct (39.0-53.0) % MCV (80.0-100.0) fL Neutrophils # (1.3-7.7) k/uL BUN (9-20) mg/dL Creatinine (0.66-1.25) mg/dL Glucose (74-99) mg/dL POC Glucose (mg/dL) 299 H (75-99) mg/dL Microbiology - Last 24 Hours (Table) 05/12/17 21:20 Blood Culture - Final Blood No Growth after 144 hours Assessment and Plan (1) Cardiopulmonary arrest with successful resuscitation Current Visit: Yes Status: Acute Code(s): I46.9 - CARDIAC ARREST, CAUSE UNSPECIFIED SNOMED Code(s): 498758939 (2) Anoxic encephalopathy Current Visit: Yes Status: Acute Code(s): G93.1 - ANOXIC BRAIN DAMAGE, NOT ELSEWHERE CLASSIFIED SNOMED Code(s): 267913324 (3) History of right-sided carotid endarterectomy Current Visit: Yes Status: Acute Code(s): Z98.890 - OTHER SPECIFIED POSTPROCEDURAL STATES SNOMED Code(s): 536661868 (4) Diabetes mellitus type 2 in obese Current Visit: Yes Status: Chronic Code(s): E11.69 - TYPE 2 DIABETES MELLITUS WITH OTHER SPECIFIED COMPLICATION; E66.9 - OBESITY, UNSPECIFIED SNOMED Code(s): 19136831 (5) Paroxysmal atrial fibrillation Current Visit: Yes Status: Chronic Code(s): I48.0 - PAROXYSMAL ATRIAL FIBRILLATION SNOMED Code(s): 498181241 Plan: This patient is a 76-year-old male who was recovering following recent right carotid endarterectomy surgery. He suffered cardiac arrest 2 days following the surgery. He has been making a slow but steady progress following his cardiac arrest and moderate degree of anoxic encephalopathy. He suffered an subacute stroke involving the right frontal lobe with residual left-sided hemiparesis. He is been able to follow all commands and is more awake and alert since being discharged from the intensive care unit. He is being evaluated for aggressive PT OT evaluation and possible inpatient rehab placement. We will continue close neurological follow-up for the patient during this admission.
[2017-05-20] MEDS: HEPARIN SODIUM,PORCINE 5,000 UNIT/ML 1 ML VIAL SQ SCH ×4 (00:36→21:08)
[2017-05-20] MEDS: hydrALAZINE HCL 20 MG/ML 1 ML VIAL IVP PRN (00:55)
[2017-05-20 02:47] LABS: Glucose,Whole Blood 281 mg/dL (75-99)
[2017-05-20] MEDS: PIPERACILLIN-TAZOBACTAM 3.375 GM in DEXTROSE/WATER 1 50ML.BAG IVPB SCH ×2 (03:53→11:08)
[2017-05-20] MEDS: PANTOPRAZOLE 40 MG TABLET PO SCH (05:54)
[2017-05-20] MEDS: CARVEDILOL 12.5 MG TAB PO SCH ×2 (05:54→16:53)
[2017-05-20 06:12] LABS: Glucose,Whole Blood 284 mg/dL (75-99)
[2017-05-20] MEDS: INSULIN ASPART 100 UNIT/ML 1 ML 10 ML VIAL SQ SCH ×6 (06:53→21:08)
[2017-05-20 07:08] LABS: Basophils % (A) 0 %; Eosinophils # (A) 0.5 k/uL (0-0.7); Eosinophils % (A) 4 %; HCT 32.4 % (39.0-53.0); HGB 10.2 gm/dL (13.0-17.5); Lymphocytes # (A) 1.1 k/uL (1.0-4.8); Lymphocytes % (A) 9 %; MCH 32.8 pg (25.0-35.0); MCHC 31.6 g/dL (31.0-37.0); MCV 103.7 fL (80.0-100.0); Macrocytosis Slight; Mean Platelet Volume 7.9; Monocytes # (A) 0.5 k/uL (0-1.0); Monocytes % (A) 4 %; Neutrophils # (A) 9.7 k/uL (1.3-7.7); Neutrophils % (A) 81 %; Platelet Count 464 k/uL (150-450); RBC 3.12 m/uL (4.30-5.90); RDW 14.7 % (11.5-15.5); WBC 12.1 k/uL (3.8-10.6)
[2017-05-20 07:21] LABS: Albumin 3.5 g/dL (3.5-5.0); Calcium 9.1 mg/dL (8.4-10.2); Total Bilirubin 0.7 mg/dL (0.2-1.3); Total Protein 6.8 g/dL (6.3-8.2)
[2017-05-20] MEDS: SENNOSIDES-DOCUSATE SODIUM 1 EACH TAB PO SCH ×2 (08:21→21:08)
[2017-05-20] MEDS: COLCHICINE 0.6 MG TAB PO SCH (08:28)
[2017-05-20] MEDS: ASPIRIN 325 MG TAB PO SCH (08:29)
[2017-05-20] MEDS: PREGABALIN 75 MG CAP PO SCH ×2 (08:29→21:08)
[2017-05-20] MEDS: IPRATROPIUM-ALBUTEROL 3 ML NEB INHALATION SCH ×4 (10:10→20:53)
[2017-05-20 11:37] LABS: Glucose,Whole Blood 298 mg/dL (75-99)
--- NOTE | 2017-05-20 13:05 | PN ---
PROGRESS NOTE Patient is seen for followup for acute kidney injury and volume overload. Patient is going to be off of all diuretics. His renal function has been improving with serum creatinine now down to 1.7 from 1.9 mg/dL, it peaked at 3.3 mg/dL. PHYSICAL EXAMINATION: Patient is comfortable. Blood pressure is 158/72, heart rate 94 per minute. He is afebrile. Examination of the heart, S1, S2. Exam of the lungs, bilateral breath sounds are heard, decreased breath sounds at the bases. Abdomen is soft, nontender. Examination of the lower extremities shows no significant edema. Chronic skin changes are noted. RADIO RECORDER exam is grossly intact. Patient is moving all 4 extremities, although his left side is slightly weaker, both upper and lower extremity. LABS: Show sodium 141, potassium 4.0, BUN 59, serum creatinine 1.7, hemoglobin 10.2 g/dL. ASSESSMENT: 1. Acute kidney injury, acute tubular necrosis, nonoliguric and currently improving with a prerenal component as well. Patient is off of all diuretics. We can resume low-dose oral loop diuretics. 2. Severe cardiomyopathy, ejection fraction less than 20%. 3. Status post ventilator-dependent respiratory failure. 4. Status post cardiac arrest. 5. Status post right carotid endarterectomy. PLAN: Start once a day dosing for oral Lasix. Encourage increased oral intake and increase activity. MMODL / IJN: [id number] /
--- NOTE | 2017-05-20 14:05 | P.PN ---
Subjective Progress Note Date: 05/20/17 76-year-old male who underwent elective right carotid endarterectomy with patch angioplasty on 05/06/[address] Mckenzie was consulted for medical management. The patient has a history of bilateral carotid stenosis, atrial fibrillation, coronary disease, diabetes mellitus, gastroesophageal reflux disease, hyperlipidemia, hypertension, osteoarthritis, and sleep apnea. 05/07/2017 The patient was seen and examined in the intensive care unit on rounds Dr. Mckenzie. The patient is sitting up in the chair. Family is at the bedside. The patient remains on a nitro drip at 60 mcg/min. Systolic blood pressures ranging in the 140s. The patient is complaining of pain at the surgical site. Dressing is in place. Swelling is noted near surgical site. Patient denies shortness of breath or coughing. Denies chest pain or pressure. Denies nausea or vomiting. States he is tolerating PO intake well without nausea or vomiting. 05/08/2017 Patient remains in intensive care unit. He is postop day #2 right carotid endarterectomy. The patient is sitting up in the chair. the patient's nitro drip has been weaned off. He was started on Norvasc 10 mg daily yesterday along with hydralazine 50 mg by mouth 3 times a day. Patients blood sugars remain elevated in the 200s. Patient utilizes an insulin pump at home. Patient 's insulin pump is currently not with him as it was empty and patient's was going to bring his insulin pump back to the hospital after she refilled it. patient remains on 6 L nasal cannula with oxygen saturations greater than 92%. He denies shortness of breath. Denies chest pain or pressure. Tolerating by mouth intake without nausea or vomiting. WBC 13.2. Hemoglobin 10.6. BUN 38. Creatinine 1.40. 05/09/2017-Notes per Dr. Mckenzie 05/10/2017-Notes per Dr. Mckenzie 05/11/2017 Patient seen and examined at the bedside on rounds with Dr. Corona. Patient went into cardiac arrest on 05/08/2017 and was successfully resuscitated after approximately 20 minutes of CPR. Patient remains intubated in the intensive care unit on mechanical ventilation. Patient is currently on IV propofol secondary to patient biting on his ET tube and bucking the ventilator. Sedation holiday has not been performed per nursing secondary to hemodynamic instability. Patient remains on 50% FiO2. Patient has required vasopressor secondary to hypotension. Levophed is currently off this morning. Chest x-ray this morning reveals mild cardio megaly with persistent central bilateral perihilar edema and/or infiltrates. ARDS is not excluded. Patient remains on Lasix drip. Patient also remains on insulin drip. Creatinine this morning is 3.30. Nephrology is on consult. Patient underwent CT of the brain which was negative for an acute process. 05/12/2017 Patient seen and examined at the bedside on rounds with Dr. Corona. Patient remains intubated in the intensive care unit. Family at the bedside. Patient sedation has been held for approximately 40 minutes. Patient is not following commands but is moving all extremities. Patient's eyes are open but patient is not tracking currently. Tube feedings are infusing. Patient is tolerating well. Patient has not had a bowel movement per nursing and just received a rectal suppository. Patient remains on insulin drip. Currently at 8.5 units an hour. Lasix drip was discontinued this morning per nephrology. Creatinine 3.10 this morning. Urinary output remains adequate. Hematuria is improving. Blood pressure is currently elevated in the 170s which may be secondary to agitation as sedation has been on hold. Nursing reports blood pressure has been running in the 140s when patient is sedated. 05/13/2017 Patient seen and examined at the bedside on rounds with Dr. Corona. is at the bedside. Per nursing, patients propofol was off yesterday and patient was able to follow some simple commands. Patient became agitated this morning and sedation was resumed. It has since been turned off. Patient does remain lethargic. He is able to open his eyes to commands and slightly wiggle his toes upon command when asked repeatedly, but then drifts back off to sleep. Patient remains on an insulin dip at 11.5 units an hour. Blood sugars are 161-196. Boothe remains intact with blood tinged urine. Tube feeding is infusing at 45 cc/ hr which is goal. Patient tolerated well. Bowel movement yesterday. Blood pressure remains elevated at times. Hydralazine PRN was ordered yesterday. Coreg has been ordered today per pulmonary. 05/14/2017 Patient seen and examined at the bedside on rounds with Dr. Corona. Patient remains on mechanical ventilation. FiO2 has been decreased to 40% per pulmonary. Patient remains off sedation and is able to follow simple commands. Tube feeding is infusing at 45 mL an hour which is goal. Patient is tolerating well. Indwelling urinary catheter remains intact with blood-tinged urine. Blood sugars are ranging between 140 and 174. Patient remains on an insulin drip. 05/15/2017 patient seen and examined at the bedside in the intensive care unit. Patient has been asked to be and is currently on BiPAP with FiO2 of 40%. Oxygen saturation is greater than 92%. Patient continues to have left sided weakness and underwent CT of the brain. CT of the brain reveals small right posterior frontal lobe cortical infarct. Evidence of subacute lacunar infarct in the right internal capsule that appears new in comparison to old exam. his aspirin was increased to 325 mg daily per neurology. chest x-ray this morning reveals improvement in pulmonary vascular congestion and persistent trace left pleural effusion. patient's sodium this morning is 153. Nephrology ordered D5W at 50 cc for 6 hours. Patient's potassium remains borderline low as well. Potassium supplementation ordered per nephrology. blood sugars are ranging from 137-155. Patient remains on insulin drip. 05/16/2017-Note per Dr. Mckenzie 05/17/2017-Note per Dr. Mckenzie 05/18/2017 Patient seen and examined at the bedside. patient remains hemodynamically stable. On 3 L nasal cannula with oxygen saturations greater then 92%. Most recent blood pressure 128/60. Patient is afebrile. Heart rate is in the 80s. Patient underwent modified barium swallow and passed. Patient able to tolerable all consistencies of food. Patient has been placed on a heart healthy diet. Dr. Morrow has been consulted for possible inpatient rehab. Patient was found to have unequal pupils and underwent CT scan of the brain on 05/17/2017 which was negative for an acute intercranial hemorrhage or midline shift. There is diffuse age-related cerebral atrophy and chronic small vessel ischemic changes noted. Enchepalomalacia in the right frontal lobe from prior infarct. Patient underwent a repeat CT of the brain on 05/18/2017 which revealed focal cortical and subcortical hypodensity posterior frontal lobe is now seen compatible with subacute infarct. No acute intercranial hemorrhage or midline shift. Chest x-ray from 05/17/2017 reveals retrocardiac opacity that may represent a small pleural effusion with atelectasis and/or pneumonia. Enlargement pulmonary vasculature may relate to underlying pulmonary arterial hypertension. 05/19/2017 Patient seen and examined at the bedside. Spouse at the bedside. Patient is awake and alert. Patient remains hemodynamically stable. bus monitor reveals sinus bradycardia to sinus rhythm. Blood pressure stable with a last reading of 137/59. Patient is on 3 L nasal cannula with oxygen saturations greater than 92%. Patient underwent modified barium swallow yesterday and passed. Patient is tolerating PO intake without nausea or vomiting. patient with generalized complaints of pain. Patient was started on Morovis 10 every 6 hours when necessary yesterday per Dr. Mckenzie. WBC this morning is 11.1, down from 12.0 yesterday. hemoglobin remained stable at 9.8. Potassium 4.0. BUN 60. Creatinine 1.95. Patient's sugars have remained elevated ranging from 198- 239. 05/20/2017 Patient seen and examined at the bedside. Spouse at the bedside. Patient is awake and alert. Patient remains hemodynamically stable. bus monitor reveals sinus bradycardia to sinus rhythm. Blood pressure this morning is slightly elevated at 158/72. Previous reading 167/74. Urinary catheter remains intact with clear yellow urine. Patient states he has been having chest pain on and off today. Currently denies chest pain during examination. Objective - Vital Signs Vital signs: Vital Signs Temp 97.6 F 05/20/17 08:31 Pulse 60 05/20/17 08:31 Resp 16 05/20/17 08:31 BP 158/72 05/20/17 08:31 Pulse Ox 94 L 05/20/17 08:31 Intake & Output 05/19/17 05/20/17 05/20/17 18:59 06:59 18:59 Intake Total 840 50 240 Output Total 1200 800 Balance -360 50 -560 Weight 129.5 kg Intake: Intake, IV Titration 50 Amount Piperacillin-Tazobactam 3 50 .375 gm In Dextrose/Water 1 50ml.bag @ 12.5 mls/hr IVPB Q8H [facility] Rx#: [id number] Oral 840 240 Output: Urine 1200 800 Other: Voiding Method Indwelling Catheter Indwelling Catheter Indwelling Catheter # Bowel Movements 2 ABP, PAP, CO, CI - Last Documented Arterial Blood Pressure 165/47 - Exam GENERAL: This is a 76-year-old male who is awake and alert. HEENT: Head is atraumatic, normocephalic. Pupils are equal, round, and reactive to light. Sclerae anicteric. Conjunctivae are clear. Mucus membranes of the mouth are moist. Neck is supple. Extensive ecchymosis noted throughout neck. RESPIRATORY: Diminished throughout. Patient maintaining oxygen saturation greater than 92%. No chest wall tenderness is noted on palpation or with deep breathing. CARDIOVASCULAR: Regular rate and rhythm. S1 and S2 noted. No systolic or diastolic murmur auscultated. No JVD noted. No S3 or S4 noted. GASTROINTESTINAL: No distention noted. Abdomen soft and round. Normal active bowel sounds auscultated x 4 quadrants. No pain or tenderness noted upon palpation. INTEGUMENTARY: Ecchymosis noted around surgical area. No cyanosis. No jaundice. EXTREMITIES: 1+ peripheral pulses. trace bilateral lower extremity edema No calf tenderness noted. NEUROLOGIC/PSYCHIATRIC: alert and oriented 2-3. patient able to move all extremities, left side remains weak. Speech is clear. - Labs CBC & Chem 7: 05/20/17 06:22 05/20/17 06:22 Labs: Abnormal Lab Results - Last 24 Hours (Table) 05/19/17 05/19/17 05/20/17 Range/Units 16:43 20:53 02:18 WBC (3.8-10.6) k/uL RBC (4.30-5.90) m/uL Hgb (13.0-17.5) gm/dL Hct (39.0-53.0) % MCV (80.0-100.0) fL Plt Count (150-450) k/uL Neutrophils # (1.3-7.7) k/uL BUN (9-20) mg/dL Creatinine (0.66-1.25) mg/dL Glucose (74-99) mg/dL POC Glucose (mg/dL) 299 H 297 H 281 H (75-99) mg/dL 05/20/17 05/20/17 05/20/17 Range/Units 05:59 06:22 06:22 WBC 12.1 H (3.8-10.6) k/uL RBC 3.12 L (4.30-5.90) m/uL Hgb 10.2 L (13.0-17.5) gm/dL Hct 32.4 L (39.0-53.0) % MCV 103.7 H (80.0-100.0) fL Plt Count 464 H (150-450) k/uL Neutrophils # 9.7 H (1.3-7.7) k/uL BUN 59 H (9-20) mg/dL Creatinine 1.70 H (0.66-1.25) mg/dL Glucose 265 H (74-99) mg/dL POC Glucose (mg/dL) 284 H (75-99) mg/dL 05/20/17 Range/Units 11:33 WBC (3.8-10.6) k/uL RBC (4.30-5.90) m/uL Hgb (13.0-17.5) gm/dL Hct (39.0-53.0) % MCV (80.0-100.0) fL Plt Count (150-450) k/uL Neutrophils # (1.3-7.7) k/uL BUN (9-20) mg/dL Creatinine (0.66-1.25) mg/dL Glucose (74-99) mg/dL POC Glucose (mg/dL) 298 H (75-99) mg/dL Microbiology - Last 24 Hours (Table) 05/20/17 07:11 Catheter Tip Culture - Preliminary Picc Line 05/20/17 07:11 Wound Culture - Preliminary Groin Assessment and Plan Plan: ASSESSMENT: Bilateral carotid stenosis, s/p right carotid endarterectomy, POD #15 Acute cardiopulmonary arrest requiring mechanical ventilation, likely secondary to acute pulmonary edema with a downtime of at least 20 minutes, extubated 05/14 Acute exacerbation of systolic congestive heart failure, ejection fraction 20% subacute lacunar infarct involving the right internal capsule with left-sided hemiparesis Suspected acute non-ST elevated CO Acute kidney injury, suspect secondary to prolonged cardiopulmonary arrest and diuresis, improving Chronic disease, stage III, secondary to nephrosclerosis baseline creatinine 1.2 Hypoxic/anoxic encephalopathy secondary to prolonged cardiopulmonary arrest Hypertension Diabetes mellitus, type II, utilizing insulin pump at home Coronary artery disease Atrial fibrillation, on medical terminologist anticoagulation with Pradaxa Hematuria, thought to be secondary to Pradaxa which has been placed on hold, improving Hyperlipidemia Hypernatremia, resolved hypokalemia, secondary to diuresis, resolved Osteoarthritis with previous multiple joint replacements Morbid obesity: BMI 42.8 PLAN: Discontinue urinary catheter. Patient may use urinal or condom cath if unable to use urinal EKG and troponins per Dr Mckenzie Continue NovoLog sliding scale coverage AC/HS Continue Levemir 38 units at bedtime Add Novolog 10 units with meals Discontinue Zosyn per Dr. Mckenzie Physical therapy and occupational therapy Home meds as appropriate Monitor labs GI prophylaxis: Protonix 40mg PO daily DVT prophylaxis: CONCEPCIÓN hose and Venodyne's to bilateral lower extremities Monitor vital signs and address as appropriate Further recommendations pending patient's course Dr. Morrow was consulted for possible inpatient rehab Dr. Mckenzie spoke with family regarding possibility of inpatient rehab at [place] if patient does not meet criteria for inpatient rehab at [facility] Left message for case management regarding possible [facility] or [place] Nurse practitioner note has been reviewed by physician. Signing provider agrees with the documented findings, assessment, and plan of care.
--- NOTE | 2017-05-20 14:24 | P.PN ---
Subjective Progress Note Date: 05/20/17 Principal diagnosis: Hemodynamically severe right internal carotid artery stenosis. Previous medical history of hypertension, gout, hyperlipidemia, diabetes, insomnia, atrial fibrillation with ablation, coronary artery disease, obstructive sleep apnea with CPAP use. POD #13 elective right carotid endarterectomy with patch angioplasty. Postoperative hematoma present at surgical site, and expected outcome given CPR during resuscitation as well as long-standing history of anticoagulation. Status post cardiopulmonary arrest with resuscitation, suspect non-STEMI. Acute systolic heart failure with an ejection fraction less than 20%. Acute kidney injury likely secondary to cardiac arrest with 30 minute down time. Postoperative right-sided subacute cerebrovascular infarct, an unexpected but potential outcome given the patient's cardiopulmonary arrest with low flow state. Patient's currently laying in bed in no acute distress. Denies pain, shortness of breath. Patient is alert, does have left-sided weakness but is able to move all 4 extremities. He is slightly confused and inappropriate at times. Objective - Vital Signs Vital signs: Vital Signs Temp 97.8 F 05/20/17 12:03 Pulse 64 05/20/17 12:03 Resp 16 05/20/17 12:03 BP 181/79 05/20/17 12:03 Pulse Ox 94 L 05/20/17 12:03 Intake & Output 05/19/17 05/20/17 05/20/17 18:59 06:59 18:59 Intake Total 840 50 680 Output Total 1200 800 Balance -360 50 -120 Weight 129.5 kg Intake: Intake, IV Titration 50 Amount Piperacillin-Tazobactam 3 50 .375 gm In Dextrose/Water 1 50ml.bag @ 12.5 mls/hr IVPB Q8H [facility] Rx#: [id number] Oral 840 480 Tube Feeding 200 Output: Urine 1200 800 Other: Voiding Method Indwelling Catheter Indwelling Catheter Indwelling Catheter # Bowel Movements 2 ABP, PAP, CO, CI - Last Documented Arterial Blood Pressure 165/47 - Constitutional General appearance: Present: cooperative, no acute distress, obese - Respiratory Details: Lungs sounds bilaterally. Respirations even, nonlabored. Currently on room air with oxygen saturation 94%. - Cardiovascular Details: S1, S2 present. Regular rate and rhythm, sinus bradycardia on telemetry. Palpable peripheral pulses bilaterally. No edema present. No calf pain or tenderness noted. SCDs present. - Gastrointestinal Gastrointestinal Comment(s): Abdomen soft, nontender, nondistended, round. Active bowel sounds 4 quadrants. Tolerating diet. Positive bowel movement. - Genitourinary Genitourinary Comment(s): Boothe present draining clear, yellow urine. - Integumentary Integumentary Comment(s): Skin is warm and dry with evidence of good perfusion. Right anterior neck incision well approximated. Hematoma present but stable. Ecchymosis present to the neck region. - Neurologic Neurologic Comment(s): Able to move all 4 extremities with decreased strength on the left side. - Musculoskeletal Musculoskeletal: Present: left sided weakness - Psychiatric Psychiatric Comment(s): Alert and oriented to person and place only. Psychiatric: Present: appropriate affect - Allied health notes Allied health notes reviewed: nursing - Labs CBC & Chem 7: 05/20/17 06:22 05/20/17 06:22 Labs: Abnormal Lab Results - Last 24 Hours (Table) 05/19/17 05/19/17 05/20/17 Range/Units 16:43 20:53 02:18 WBC (3.8-10.6) k/uL RBC (4.30-5.90) m/uL Hgb (13.0-17.5) gm/dL Hct (39.0-53.0) % MCV (80.0-100.0) fL Plt Count (150-450) k/uL Neutrophils # (1.3-7.7) k/uL BUN (9-20) mg/dL Creatinine (0.66-1.25) mg/dL Glucose (74-99) mg/dL POC Glucose (mg/dL) 299 H 297 H 281 H (75-99) mg/dL 05/20/17 05/20/17 05/20/17 Range/Units 05:59 06:22 06:22 WBC 12.1 H (3.8-10.6) k/uL RBC 3.12 L (4.30-5.90) m/uL Hgb 10.2 L (13.0-17.5) gm/dL Hct 32.4 L (39.0-53.0) % MCV 103.7 H (80.0-100.0) fL Plt Count 464 H (150-450) k/uL Neutrophils # 9.7 H (1.3-7.7) k/uL BUN 59 H (9-20) mg/dL Creatinine 1.70 H (0.66-1.25) mg/dL Glucose 265 H (74-99) mg/dL POC Glucose (mg/dL) 284 H (75-99) mg/dL 05/20/17 Range/Units 11:33 WBC (3.8-10.6) k/uL RBC (4.30-5.90) m/uL Hgb (13.0-17.5) gm/dL Hct (39.0-53.0) % MCV (80.0-100.0) fL Plt Count (150-450) k/uL Neutrophils # (1.3-7.7) k/uL BUN (9-20) mg/dL Creatinine (0.66-1.25) mg/dL Glucose (74-99) mg/dL POC Glucose (mg/dL) 298 H (75-99) mg/dL Microbiology - Last 24 Hours (Table) 05/20/17 07:11 Catheter Tip Culture - Preliminary Picc Line 05/20/17 07:11 Wound Culture - Preliminary Groin Assessment and Plan (1) Cardiopulmonary arrest with successful resuscitation Current Visit: Yes Status: Acute Code(s): I46.9 - CARDIAC ARREST, CAUSE UNSPECIFIED SNOMED Code(s): 370363057 (2) Diabetes mellitus type 2 in obese Current Visit: Yes Status: Chronic Code(s): E11.69 - TYPE 2 DIABETES MELLITUS WITH OTHER SPECIFIED COMPLICATION; E66.9 - OBESITY, UNSPECIFIED SNOMED Code(s): 44619134 (3) GERD (gastroesophageal reflux disease) Current Visit: Yes Status: Chronic Code(s): K21.9 - GASTRO-ESOPHAGEAL REFLUX DISEASE WITHOUT ESOPHAGITIS SNOMED Code(s): 560738146 (4) Gout Current Visit: Yes Status: Chronic Code(s): M10.9 - GOUT, UNSPECIFIED SNOMED Code(s): 71732286 (5) History of coronary artery disease Current Visit: Yes Status: Chronic Code(s): Z86.79 - PERSONAL HISTORY OF OTHER DISEASES OF THE CIRCULATORY SYSTEM SNOMED Code(s): 390188120 (6) Hyperlipidemia Current Visit: Yes Status: Chronic Code(s): E78.5 - HYPERLIPIDEMIA, UNSPECIFIED SNOMED Code(s): 05969400 (7) Hypertension Current Visit: Yes Status: Chronic Code(s): I10 - ESSENTIAL (PRIMARY) HYPERTENSION SNOMED Code(s): 52214662 (8) Morbid obesity Current Visit: Yes Status: Chronic Code(s): E66.01 - MORBID (SEVERE) OBESITY DUE TO EXCESS CALORIES SNOMED Code(s): 682437286 (9) Obstructive sleep apnea Current Visit: Yes Status: Chronic Code(s): G47.33 - OBSTRUCTIVE SLEEP APNEA (ADULT) (PEDIATRIC) SNOMED Code(s): 82812108 (10) Paroxysmal atrial fibrillation Current Visit: Yes Status: Chronic Code(s): I48.0 - PAROXYSMAL ATRIAL FIBRILLATION SNOMED Code(s): 795027562 (11) Stenosis of right carotid artery Current Visit: Yes Status: Chronic Code(s): I65.21 - OCCLUSION AND STENOSIS OF RIGHT CAROTID ARTERY SNOMED Code(s): 382483193802335 Plan: 1. Continue current medical management per primary care service. 2. Cardiology management for post myocardial infarction, cardiopulmonary arrest. 3. Encourage incentive spirometry use 10 times every hour while awake. 4. GI/DVT prophylaxis. 5. Will continue to monitor daily labs and x-rays. 6. Maintain stable blood pressure. 7. Increase activity as tolerated. PT/OT following. Patient will need aggressive physical therapy when discharged. 8. Reorient patient as needed. 9. Right carotid endarterectomy site remains stable. 10. Discontinue Boothe catheter. Bladder scan for postvoid residual after first void or at 6 hours post removal of Boothe, which ever is first. 11. Discharge planning in progress. Patient will need rehabilitation upon discharge. Dr. Morrow was consulted. Time with Patient: Greater than 30
[2017-05-20 17:18] LABS: Glucose,Whole Blood 274 mg/dL (75-99)
[2017-05-20] MEDS: HYDROcodone/APAP 10-325MG 1 EACH TAB PO PRN (18:04)
[2017-05-20 20:46] LABS: Glucose,Whole Blood 224 mg/dL (75-99)
[2017-05-20] MEDS: INSULIN DETEMIR 100 UNIT/ML 10 ML VIAL SQ SCH (21:08)
[2017-05-21 03:25] LABS: Basophils # (A) 0.1 k/uL (0-0.2); Basophils % (A) 0 %; Eosinophils # (A) 0.5 k/uL (0-0.7); Eosinophils % (A) 4 %; HCT 33.7 % (39.0-53.0); HGB 10.8 gm/dL (13.0-17.5); Lymphocytes # (A) 1.3 k/uL (1.0-4.8); Lymphocytes % (A) 10 %; MCH 32.7 pg (25.0-35.0); MCHC 32.2 g/dL (31.0-37.0); MCV 101.8 fL (80.0-100.0); Macrocytosis Slight; Mean Platelet Volume 7.7; Monocytes # (A) 0.4 k/uL (0-1.0); Monocytes % (A) 3 %; Neutrophils # (A) 11.1 k/uL (1.3-7.7); Neutrophils % (A) 82 %; Platelet Count 523 k/uL (150-450); RBC 3.31 m/uL (4.30-5.90); RDW 15.1 % (11.5-15.5); WBC 13.6 k/uL (3.8-10.6)
[2017-05-21 03:40] LABS: Albumin 3.7 g/dL (3.5-5.0); Calcium 9.7 mg/dL (8.4-10.2); Potassium 4.2 mmol/L (3.5-5.1); Total Bilirubin 0.6 mg/dL (0.2-1.3); Total Protein 7.2 g/dL (6.3-8.2)
[2017-05-21 06:10] LABS: Glucose,Whole Blood 211 mg/dL (75-99)
[2017-05-21] MEDS: hydrALAZINE HCL 20 MG/ML 1 ML VIAL IVP PRN ×2 (06:27→23:12)
[2017-05-21] MEDS: PANTOPRAZOLE 40 MG TABLET PO SCH (06:59)
[2017-05-21] MEDS: INSULIN ASPART 100 UNIT/ML 1 ML 10 ML VIAL SQ SCH ×7 (06:59→21:49)
[2017-05-21] MEDS: CARVEDILOL 12.5 MG TAB PO SCH ×2 (06:59→17:18)
[2017-05-21] MEDS: ASPIRIN 325 MG TAB PO SCH (08:19)
[2017-05-21] MEDS: HEPARIN SODIUM,PORCINE 5,000 UNIT/ML 1 ML VIAL SQ SCH ×3 (08:19→20:17)
[2017-05-21] MEDS: FUROSEMIDE 40 MG TAB PO SCH (08:19)
[2017-05-21] MEDS: PREGABALIN 75 MG CAP PO SCH ×2 (08:19→20:17)
[2017-05-21] MEDS: COLCHICINE 0.6 MG TAB PO SCH (08:20)
[2017-05-21] MEDS: SENNOSIDES-DOCUSATE SODIUM 1 EACH TAB PO SCH ×2 (08:20→20:17)
[2017-05-21] MEDS: IPRATROPIUM-ALBUTEROL 3 ML NEB INHALATION SCH ×4 (11:33→20:34)
[2017-05-21 12:14] LABS: Glucose,Whole Blood 156 mg/dL (75-99)
--- NOTE | 2017-05-21 13:41 | P.PN ---
Subjective Progress Note Date: 05/21/17 76-year-old male who underwent elective right carotid endarterectomy with patch angioplasty on 05/06/[address] Mckenzie was consulted for medical management. The patient has a history of bilateral carotid stenosis, atrial fibrillation, coronary disease, diabetes mellitus, gastroesophageal reflux disease, hyperlipidemia, hypertension, osteoarthritis, and sleep apnea. 05/07/2017 The patient was seen and examined in the intensive care unit on rounds Dr. Mckenzie. The patient is sitting up in the chair. Family is at the bedside. The patient remains on a nitro drip at 60 mcg/min. Systolic blood pressures ranging in the 140s. The patient is complaining of pain at the surgical site. Dressing is in place. Swelling is noted near surgical site. Patient denies shortness of breath or coughing. Denies chest pain or pressure. Denies nausea or vomiting. States he is tolerating PO intake well without nausea or vomiting. 05/08/2017 Patient remains in intensive care unit. He is postop day #2 right carotid endarterectomy. The patient is sitting up in the chair. the patient's nitro drip has been weaned off. He was started on Norvasc 10 mg daily yesterday along with hydralazine 50 mg by mouth 3 times a day. Patients blood sugars remain elevated in the 200s. Patient utilizes an insulin pump at home. Patient 's insulin pump is currently not with him as it was empty and patient's was going to bring his insulin pump back to the hospital after she refilled it. patient remains on 6 L nasal cannula with oxygen saturations greater than 92%. He denies shortness of breath. Denies chest pain or pressure. Tolerating by mouth intake without nausea or vomiting. WBC 13.2. Hemoglobin 10.6. BUN 38. Creatinine 1.40. 05/09/2017-Notes per Dr. Mckenzie 05/10/2017-Notes per Dr. Mckenzie 05/11/2017 Patient seen and examined at the bedside on rounds with Dr. Corona. Patient went into cardiac arrest on 05/08/2017 and was successfully resuscitated after approximately 20 minutes of CPR. Patient remains intubated in the intensive care unit on mechanical ventilation. Patient is currently on IV propofol secondary to patient biting on his ET tube and bucking the ventilator. Sedation holiday has not been performed per nursing secondary to hemodynamic instability. Patient remains on 50% FiO2. Patient has required vasopressor secondary to hypotension. Levophed is currently off this morning. Chest x-ray this morning reveals mild cardio megaly with persistent central bilateral perihilar edema and/or infiltrates. ARDS is not excluded. Patient remains on Lasix drip. Patient also remains on insulin drip. Creatinine this morning is 3.30. Nephrology is on consult. Patient underwent CT of the brain which was negative for an acute process. 05/12/2017 Patient seen and examined at the bedside on rounds with Dr. Corona. Patient remains intubated in the intensive care unit. Family at the bedside. Patient sedation has been held for approximately 40 minutes. Patient is not following commands but is moving all extremities. Patient's eyes are open but patient is not tracking currently. Tube feedings are infusing. Patient is tolerating well. Patient has not had a bowel movement per nursing and just received a rectal suppository. Patient remains on insulin drip. Currently at 8.5 units an hour. Lasix drip was discontinued this morning per nephrology. Creatinine 3.10 this morning. Urinary output remains adequate. Hematuria is improving. Blood pressure is currently elevated in the 170s which may be secondary to agitation as sedation has been on hold. Nursing reports blood pressure has been running in the 140s when patient is sedated. 05/13/2017 Patient seen and examined at the bedside on rounds with Dr. Corona. is at the bedside. Per nursing, patients propofol was off yesterday and patient was able to follow some simple commands. Patient became agitated this morning and sedation was resumed. It has since been turned off. Patient does remain lethargic. He is able to open his eyes to commands and slightly wiggle his toes upon command when asked repeatedly, but then drifts back off to sleep. Patient remains on an insulin dip at 11.5 units an hour. Blood sugars are 161-196. Boothe remains intact with blood tinged urine. Tube feeding is infusing at 45 cc/ hr which is goal. Patient tolerated well. Bowel movement yesterday. Blood pressure remains elevated at times. Hydralazine PRN was ordered yesterday. Coreg has been ordered today per pulmonary. 05/14/2017 Patient seen and examined at the bedside on rounds with Dr. Corona. Patient remains on mechanical ventilation. FiO2 has been decreased to 40% per pulmonary. Patient remains off sedation and is able to follow simple commands. Tube feeding is infusing at 45 mL an hour which is goal. Patient is tolerating well. Indwelling urinary catheter remains intact with blood-tinged urine. Blood sugars are ranging between 140 and 174. Patient remains on an insulin drip. 05/15/2017 patient seen and examined at the bedside in the intensive care unit. Patient has been asked to be and is currently on BiPAP with FiO2 of 40%. Oxygen saturation is greater than 92%. Patient continues to have left sided weakness and underwent CT of the brain. CT of the brain reveals small right posterior frontal lobe cortical infarct. Evidence of subacute lacunar infarct in the right internal capsule that appears new in comparison to old exam. his aspirin was increased to 325 mg daily per neurology. chest x-ray this morning reveals improvement in pulmonary vascular congestion and persistent trace left pleural effusion. patient's sodium this morning is 153. Nephrology ordered D5W at 50 cc for 6 hours. Patient's potassium remains borderline low as well. Potassium supplementation ordered per nephrology. blood sugars are ranging from 137-155. Patient remains on insulin drip. 05/16/2017-Note per Dr. Mckenzie 05/17/2017-Note per Dr. Mckenzie 05/18/2017 Patient seen and examined at the bedside. patient remains hemodynamically stable. On 3 L nasal cannula with oxygen saturations greater then 92%. Most recent blood pressure 128/60. Patient is afebrile. Heart rate is in the 80s. Patient underwent modified barium swallow and passed. Patient able to tolerable all consistencies of food. Patient has been placed on a heart healthy diet. Dr. Morrow has been consulted for possible inpatient rehab. Patient was found to have unequal pupils and underwent CT scan of the brain on 05/17/2017 which was negative for an acute intercranial hemorrhage or midline shift. There is diffuse age-related cerebral atrophy and chronic small vessel ischemic changes noted. Enchepalomalacia in the right frontal lobe from prior infarct. Patient underwent a repeat CT of the brain on 05/18/2017 which revealed focal cortical and subcortical hypodensity posterior frontal lobe is now seen compatible with subacute infarct. No acute intercranial hemorrhage or midline shift. Chest x-ray from 05/17/2017 reveals retrocardiac opacity that may represent a small pleural effusion with atelectasis and/or pneumonia. Enlargement pulmonary vasculature may relate to underlying pulmonary arterial hypertension. 05/19/2017 Patient seen and examined at the bedside. Spouse at the bedside. Patient is awake and alert. Patient remains hemodynamically stable. waste water operator reveals sinus bradycardia to sinus rhythm. Blood pressure stable with a last reading of 137/59. Patient is on 3 L nasal cannula with oxygen saturations greater than 92%. Patient underwent modified barium swallow yesterday and passed. Patient is tolerating PO intake without nausea or vomiting. patient with generalized complaints of pain. Patient was started on Bar[place]aria 10 every 6 hours when necessary yesterday per Dr. Mckenzie. WBC this morning is 11.1, down from 12.0 yesterday. hemoglobin remained stable at 9.8. Potassium 4.0. BUN 60. Creatinine 1.95. Patient's sugars have remained elevated ranging from 198- 239. 05/20/2017 Patient seen and examined at the bedside. Spouse at the bedside. Patient is awake and alert. Patient remains hemodynamically stable. waste water operator reveals sinus bradycardia to sinus rhythm. Blood pressure this morning is slightly elevated at 158/72. Previous reading 167/74. Urinary catheter remains intact with clear yellow urine. Patient states he has been having chest pain on and off today. Currently denies chest pain during examination. 05/21/2017 Patient seen and examined at the bedside. Spouse at the bedside. Patient is awake and alert. Patient remains hemodynamically stable. waste water operator reveals sinus rhythm. Indwelling urinary catheter was discontinued yesterday. Patient has voided since removal, but is still experiencing urinary retention. central line catheter was removed yesterday from right groin and was cultured revealing coagulase-negative staph, likely contamination. white count today 13.6. Hemoglobin 10.8. Potassium 4.2. BUN 49. Creatinine 1.40. Blood sugars remain elevated ranging from 207-274. Patient remains on Levemir 30 units at night. He was also started on NovoLog 10 units with meals yesterday. Objective - Vital Signs Vital signs: Vital Signs Temp 98.1 F 05/21/17 08:21 Pulse 66 05/21/17 08:21 Resp 18 05/21/17 08:21 BP 154/69 05/21/17 08:21 Pulse Ox 94 L 05/21/17 08:21 Intake & Output 03/05/21/17 05/21/17 18:59 06:59 18:59 Intake Total 920 Output Total 1600 1655 Balance -680 -1655 Weight 127 kg Intake: Oral 720 Tube Feeding 200 Output: Urine 1600 1655 Uretheral (Boothe) 600 Other: Voiding Method Urinal Urinal Urinal # Voids 2 ABP, PAP, CO, CI - Last Documented Arterial Blood Pressure 165/47 - Exam GENERAL: This is a 76-year-old male who is awake and alert. HEENT: Head is atraumatic, normocephalic. Pupils are equal, round, and reactive to light. Sclerae anicteric. Conjunctivae are clear. Mucus membranes of the mouth are moist. Neck is supple. Extensive ecchymosis noted throughout neck. RESPIRATORY: Diminished throughout. Patient maintaining oxygen saturation greater than 92%. No chest wall tenderness is noted on palpation or with deep breathing. CARDIOVASCULAR: Regular rate and rhythm. S1 and S2 noted. No systolic or diastolic murmur auscultated. No JVD noted. No S3 or S4 noted. GASTROINTESTINAL: No distention noted. Abdomen soft and round. Normal active bowel sounds auscultated x 4 quadrants. No pain or tenderness noted upon palpation. INTEGUMENTARY: Ecchymosis noted around surgical area. No cyanosis. No jaundice. EXTREMITIES: 1+ peripheral pulses. trace bilateral lower extremity edema No calf tenderness noted. NEUROLOGIC/PSYCHIATRIC: alert and oriented 2-3. patient able to move all extremities, left side remains weak. Speech is clear. - Labs CBC & Chem 7: 05/21/17 03:13 05/21/17 03:13 Labs: Abnormal Lab Results - Last 24 Hours (Table) 05/20/17 05/20/17 05/20/17 Range/Units 11:33 15:07 16:37 WBC (3.8-10.6) k/uL RBC (4.30-5.90) m/uL Hgb (13.0-17.5) gm/dL Hct (39.0-53.0) % MCV (80.0-100.0) fL Plt Count (150-450) k/uL Neutrophils # (1.3-7.7) k/uL Chloride (98-107) mmol/L BUN (9-20) mg/dL Creatinine (0.66-1.25) mg/dL Glucose (74-99) mg/dL POC Glucose (mg/dL) 298 H 274 H (75-99) mg/dL Troponin I 0.080 H* (0.000-0.034) ng/mL 05/20/17 05/20/17 05/21/17 Range/Units 20:44 20:56 03:13 WBC 13.6 H (3.8-10.6) k/uL RBC 3.31 L (4.30-5.90) m/uL Hgb 10.8 L (13.0-17.5) gm/dL Hct 33.7 L (39.0-53.0) % MCV 101.8 H (80.0-100.0) fL Plt Count 523 H (150-450) k/uL Neutrophils # 11.1 H (1.3-7.7) k/uL Chloride (98-107) mmol/L BUN (9-20) mg/dL Creatinine (0.66-1.25) mg/dL Glucose (74-99) mg/dL POC Glucose (mg/dL) 224 H (75-99) mg/dL Troponin I 0.086 H* (0.000-0.034) ng/mL 05/21/17 05/21/17 05/21/17 Range/Units 03:13 03:13 06:05 WBC (3.8-10.6) k/uL RBC (4.30-5.90) m/uL Hgb (13.0-17.5) gm/dL Hct (39.0-53.0) % MCV (80.0-100.0) fL Plt Count (150-450) k/uL Neutrophils # (1.3-7.7) k/uL Chloride 108 H (98-107) mmol/L BUN 49 H (9-20) mg/dL Creatinine 1.40 H (0.66-1.25) mg/dL Glucose 207 H (74-99) mg/dL POC Glucose (mg/dL) 211 H (75-99) mg/dL Troponin I 0.079 H* (0.000-0.034) ng/mL Microbiology - Last 24 Hours (Table) 05/20/17 07:11 Catheter Tip Culture - Final Picc Line Coagulase Negative Staph Coagulase Negative Staph#2 05/20/17 07:11 Gram Stain - Preliminary Groin Wound Culture - Preliminary Assessment and Plan Plan: ASSESSMENT: Bilateral carotid stenosis, s/p right carotid endarterectomy, POD #16 Acute cardiopulmonary arrest requiring mechanical ventilation, likely secondary to acute pulmonary edema with a downtime of at least 20 minutes, extubated 05/14 Acute exacerbation of systolic congestive heart failure, ejection fraction 20%, improved subacute lacunar infarct involving the right internal capsule with left-sided hemiparesis Suspected acute non-ST elevated [place] Acute kidney injury, suspect secondary to prolonged cardiopulmonary arrest and diuresis, improving Chronic disease, stage III, secondary to nephrosclerosis baseline creatinine 1.2 Hypoxic/anoxic encephalopathy secondary to prolonged cardiopulmonary arrest, improving Hypertension Diabetes mellitus, type II, utilizing insulin pump at home Coronary artery disease Atrial fibrillation, on fpc anticoagulation with Pradaxa Hematuria, thought to be secondary to Pradaxa which has been placed on hold, improving Hyperlipidemia Hypernatremia, resolved hypokalemia, secondary to diuresis, resolved Osteoarthritis with previous multiple joint replacements Morbid obesity: BMI 42.8 PLAN: Begin hydralazine 25mg PO TID per Dr. Mckenzie Patient started on Flomax per attending physican Orders placed to reinsert catheter and consult urology per attending physican Continue postoperative management per vascular surgery Continue NovoLog sliding scale coverage AC/HS Increase Levemir to 50 units at bedtime Increase Novolog to 15 units with meals Physical therapy and occupational therapy Home meds as appropriate Monitor labs GI prophylaxis: Protonix 40mg PO daily DVT prophylaxis: CONCEPCIÓN hose and Venodyne's to bilateral lower extremities Monitor vital signs and address as appropriate Further recommendations pending patient's course Dr. Morrow was consulted for inpatient rehab Discharge planning: Inpatient rehab at [facility]. Nurse practitioner note has been reviewed by physician. Signing provider agrees with the documented findings, assessment, and plan of care.
[2017-05-21 14:34] VITALS: BMI 41.3
[2017-05-21] MEDS: HYDROcodone/APAP 10-325MG 1 EACH TAB PO PRN (14:34)
[2017-05-21 16:51] LABS: Glucose,Whole Blood 193 mg/dL (75-99)
[2017-05-21] MEDS: TAMSULOSIN 0.4 MG CAP.ER.24H PO SCH (17:18)
--- NOTE | 2017-05-21 17:44 | P.PN ---
Subjective Progress Note Date: 05/21/17 Principal diagnosis: Hemodynamically severe right internal carotid artery stenosis, hypertension, hyperlipidemia, gout, diabetes mellitus type 2, obstructive sleep apnea with home BiPAP, history of paroxysmal atrial fibrillation on Pat home, history of coronary artery disease, GERD, and osteoarthritis. POD #14, elective right carotid endarterectomy with bovine pericardial patch angioplasty. Postoperative hematoma present at surgical site, an expected outcome given CPR during resuscitation as well as long-standing history of anticoagulation. Status post cardiopulmonary arrest with resuscitation, suspect non-ST elevated myocardial infarction. Acute systolic heart failure with an ejection fraction of less than 20%. Acute kidney injury likely secondary to cardiac arrest with 30 minutes down time. Patient is currently laying in bed with his head elevated 45. He is in no acute distress. He denies any complaints of pain at this time. The patient is alert and oriented 3. His [id number] is at his bedside. Questions answered to the best by my ability. He remains having some left-sided weakness but is moving all 4 extremities. He reports that he has been having some urinary retention today. Postvoid residual was completed on him with 700 mL of urine retained. Boothe catheter was placed. Objective - Vital Signs Vital signs: Vital Signs Temp 97.6 F 05/21/17 16:00 Pulse 66 05/21/17 16:44 Resp 18 05/21/17 16:00 BP 166/67 05/21/17 16:00 Pulse Ox 92 L 05/21/17 16:00 Intake & Output 05/20/17 05/21/17 05/21/17 18:59 06:59 18:59 Intake Total 920 240 Output Total 1600 1655 125 Balance -680 -1655 115 Weight 127 kg 127 kg Intake: Oral 720 240 Tube Feeding 200 Output: Urine 1600 1655 125 Uretheral (Boothe) 600 Other: Voiding Method Urinal Urinal Urinal # Voids 2 ABP, PAP, CO, CI - Last Documented Arterial Blood Pressure 165/47 - Constitutional General appearance: Present: cooperative, no acute distress, obese - EENT Eyes: Present: PERRLA ENT: Present: hearing grossly normal - Neck Details: No JVD, no lymphadenopathy. Right neck incision with ecchymosis. Remains approximated no redness or drainage present. Hematoma remains present although smaller to palpate. - Respiratory Details: Lungs sounds essentially clear throughout, diminished to his bilateral bases. Respirations are symmetrical and nonlabored. Oxygen saturation are 94% on room air. - Cardiovascular Details: Regular rhythm and rate. S1 and S2 present, negative for S3, gallop or murmur. Remote telemetry showing normal sinus rhythm with depressed ST heart rate 65. No edema present. Knee-high CONCEPCIÓN hose and sequential compression devices in place was bilateral lower extremities. - Gastrointestinal Gastrointestinal Comment(s): Abdomen soft, nontender and nondistended. Active bowel sounds all 4 abdominal quadrants. Tolerating oral intake. Last bowel movement 05/19/2017. - Genitourinary Genitourinary Comment(s): Urine output adequate. Boothe catheter placed for accurate I&O and urinary retention. Clear yellow urine. - Integumentary Integumentary Comment(s): Skin is warm and dry. No clubbing or cyanosis. Right neck incision clean dry and approximated. Hematoma remains but appears smaller. No drainage or redness present. Ecchymosis remains to his neck incision but is improving. - Neurologic Neurologic: Present: CNII-XII intact - Musculoskeletal Musculoskeletal: Present: gait normal, generalized weakness, strength equal bilaterally - Psychiatric Psychiatric: Present: A&O x's 3, appropriate affect, intact judgment & insight - Allied health notes Allied health notes reviewed: nursing - Labs CBC & Chem 7: 05/21/17 03:13 05/21/17 03:13 Labs: Abnormal Lab Results - Last 24 Hours (Table) 05/20/17 05/20/17 05/21/17 Range/Units 20:44 20:56 03:13 WBC 13.6 H (3.8-10.6) k/uL RBC 3.31 L (4.30-5.90) m/uL Hgb 10.8 L (13.0-17.5) gm/dL Hct 33.7 L (39.0-53.0) % MCV 101.8 H (80.0-100.0) fL Plt Count 523 H (150-450) k/uL Neutrophils # 11.1 H (1.3-7.7) k/uL Chloride (98-107) mmol/L BUN (9-20) mg/dL Creatinine (0.66-1.25) mg/dL Glucose (74-99) mg/dL POC Glucose (mg/dL) 224 H (75-99) mg/dL Troponin I 0.086 H* (0.000-0.034) ng/mL 05/21/17 05/21/17 05/21/17 Range/Units 03:13 03:13 06:05 WBC (3.8-10.6) k/uL RBC (4.30-5.90) m/uL Hgb (13.0-17.5) gm/dL Hct (39.0-53.0) % MCV (80.0-100.0) fL Plt Count (150-450) k/uL Neutrophils # (1.3-7.7) k/uL Chloride 108 H (98-107) mmol/L BUN 49 H (9-20) mg/dL Creatinine 1.40 H (0.66-1.25) mg/dL Glucose 207 H (74-99) mg/dL POC Glucose (mg/dL) 211 H (75-99) mg/dL Troponin I 0.079 H* (0.000-0.034) ng/mL 05/21/17 05/21/17 Range/Units 12:10 16:49 WBC (3.8-10.6) k/uL RBC (4.30-5.90) m/uL Hgb (13.0-17.5) gm/dL Hct (39.0-53.0) % MCV (80.0-100.0) fL Plt Count (150-450) k/uL Neutrophils # (1.3-7.7) k/uL Chloride (98-107) mmol/L BUN (9-20) mg/dL Creatinine (0.66-1.25) mg/dL Glucose (74-99) mg/dL POC Glucose (mg/dL) 156 H 193 H (75-99) mg/dL Troponin I (0.000-0.034) ng/mL Microbiology - Last 24 Hours (Table) 05/20/17 07:11 Catheter Tip Culture - Final Picc Line Coagulase Negative Staph Coagulase Negative Staph#2 05/20/17 07:11 Gram Stain - Preliminary Groin Wound Culture - Preliminary Assessment and Plan (1) Stenosis of right carotid artery Current Visit: Yes Status: Chronic Code(s): I65.21 - OCCLUSION AND STENOSIS OF RIGHT CAROTID ARTERY SNOMED Code(s): 169309929151499 (2) Hypertension Current Visit: Yes Status: Chronic Code(s): I10 - ESSENTIAL (PRIMARY) HYPERTENSION SNOMED Code(s): 05791512 (3) Hyperlipidemia Current Visit: Yes Status: Chronic Code(s): E78.5 - HYPERLIPIDEMIA, UNSPECIFIED SNOMED Code(s): 85479693 (4) BPH (benign prostatic hyperplasia) Current Visit: Yes Status: Acute Code(s): N40.0 - BENIGN PROSTATIC HYPERPLASIA WITHOUT LOWER URINRY TRACT SYMP SNOMED Code(s): 424238014 (5) Paroxysmal atrial fibrillation Current Visit: Yes Status: Chronic Code(s): I48.0 - PAROXYSMAL ATRIAL FIBRILLATION SNOMED Code(s): 501544702 (6) Gout Current Visit: Yes Status: Chronic Code(s): M10.9 - GOUT, UNSPECIFIED SNOMED Code(s): 66895289 (7) GERD (gastroesophageal reflux disease) Current Visit: Yes Status: Chronic Code(s): K21.9 - GASTRO-ESOPHAGEAL REFLUX DISEASE WITHOUT ESOPHAGITIS SNOMED Code(s): 858028483 (8) Obstructive sleep apnea Current Visit: Yes Status: Chronic Code(s): G47.33 - OBSTRUCTIVE SLEEP APNEA (ADULT) (PEDIATRIC) SNOMED Code(s): 71921865 (9) Osteoarthritis Current Visit: Yes Status: Acute Code(s): M19.90 - UNSPECIFIED OSTEOARTHRITIS, UNSPECIFIED SITE SNOMED Code(s): 241960558 (10) History of coronary artery disease Current Visit: Yes Status: Chronic Code(s): Z86.79 - PERSONAL HISTORY OF OTHER DISEASES OF THE CIRCULATORY SYSTEM SNOMED Code(s): 130126117 (11) Diabetes mellitus type 2 in obese Current Visit: Yes Status: Chronic Code(s): E11.69 - TYPE 2 DIABETES MELLITUS WITH OTHER SPECIFIED COMPLICATION; E66.9 - OBESITY, UNSPECIFIED SNOMED Code(s): 89010731 (12) Morbid obesity Current Visit: Yes Status: Chronic Code(s): E66.01 - MORBID (SEVERE) OBESITY DUE TO EXCESS CALORIES SNOMED Code(s): 776624250 (13) Neuropathy Current Visit: Yes Status: Acute Code(s): G62.9 - POLYNEUROPATHY, UNSPECIFIED SNOMED Code(s): 874102786 Plan: 1. Continue current medical management per primary care service. 2. Cardiology management for post myocardial infarction, cardiopulmonary arrest. 3. Wean O2 as tolerated. Encourage incentive spirometry use 10 times every hour while awake. 4. GI/DVT prophylaxis. 5. Will continue to monitor daily labs and x-rays. We will check uric acid level. 6. Maintain stable blood pressure. 7. Increase activity as tolerated. PT/OT following. Patient will need aggressive physical therapy when discharged. 8. Place Boothe catheter for urinary retention. Flomax 0.4 mg by mouth daily at bedtime started. 9. Right carotid endarterectomy site remains stable. 10. Consult urology for urinary retention. 11. More recommendations to follow as patient progresses in his care. Time with Patient: Greater than 30
--- NOTE | 2017-05-21 20:18 | P.PN ---
Subjective Progress Note Date: 05/21/17 This patient is a 76-year-old right-handed white male who was undergone a right carotid endarterectomy and is postoperative day #13 today. Patient was in the intensive care unit where he has been recovering following cardiopulmonary arrest 2 days after his carotid surgery. He was sent for a computed tomography scan of the brain back on 05/14/2017 after his neurological exam reveals some left-sided weakness. The CAT scan of the brain revealed evidence of a subacute lacunar infarct in the right internal capsule. He is conversing with his granddaughter who was at bedside. He does seem to be much more awake and is doing much better since the last few days. He does have significant left-sided weakness consistent with CAT scan findings of acute stroke. We are recommending a follow-up computed tomography scan of the brain to be done tomorrow for follow-up and comparison. The patient has remained hemodynamically stable. He continues to notice left-sided weakness and he will require aggressive physical therapy for further treatment. He did show some change in mental status 2 days ago and was sent for a stat computed tomography scan of the brain. This CAT scan failed to reveal any acute changes. Patient had a follow-up computed tomography scan of the brain done today which reveals a focal cortical and subcortical hypodensity in the right frontal lobe suggesting subacute infarct. No evidence of hemorrhage. He appears to be doing much better today and is showing no further change in mentation. It is possible this may have been a drug effect of some of his pain medication producing an acute mental status change. He is showing signs of significant improvement from a finding of anoxic encephalopathy following his cardiac arrest. We would recommend that he continue with aggressive PT/OT evaluations. Case was discussed at length with the patient and his granddaughter who is at bedside. Patient is being considered for possible subacute rehab placement. All of her questions were answered and she is are aware of our current treatment plan. His neurological exam findings continued reveal left-sided hemiparesis which does show some improvement in strength as compared to yesterday. Patient did develop urinary retention and is being checked with a bladder scan. Neurology has been consulted and will be seeing the patient tomorrow. Patient is awaiting possible discharge to subacute rehab once he is medically stable. We will continue close neurological follow-up with the patient during this admission. Objective - Vital Signs Vital signs: Vital Signs Temp 97.6 F 05/21/17 16:00 Pulse 66 05/21/17 16:44 Resp 18 05/21/17 16:00 BP 166/67 05/21/17 16:00 Pulse Ox 92 L 05/21/17 16:00 Intake & Output 05/20/17 05/21/17 05/21/17 18:59 06:59 18:59 Intake Total 920 240 Output Total 1600 1655 125 Balance -680 -1655 115 Weight 127 kg 127 kg Intake: Oral 720 240 Tube Feeding 200 Output: Urine 1600 1655 125 Uretheral (Boothe) 600 Other: Voiding Method Urinal Urinal Urinal # Voids 2 ABP, PAP, CO, CI - Last Documented Arterial Blood Pressure 165/47 - Exam Physical examination: PHYSICAL EXAMINATION: Patient is resting comfortably in bed. VITAL SIGNS: Blood pressure is [167/68]. Heart rate is [65]. Respiration is [18] . Temperature is [97.7]. HEENT: Head is atraumatic, neck is supple, there were no carotid bruits. CHEST: Lungs are clear to auscultation and percussion. CARDIAC: S1, S2 normal rate and rhythm. There is no murmur. ABDOMEN: Soft and nontender. Bowel sounds are present. EXTREMITIES: There is no pedal edema. Peripheral pulses are present. Neurological examination: Patient is examined today on the medical floor. He is more awake and alert today. Cranial nerves II through XII are grossly intact. No evidence of anisocoria of significance. Motor examination reveals left-sided hemiparesis 3+ /5 on the left side. The deep tendon reflexes are 1+ and symmetric. Plantar responses flexor bilaterally. Coordination and gait cannot be assessed in this patient at this time. Patient is able to use a handlebar above his bed today white effectively. - Labs CBC & Chem 7: 05/21/17 03:13 05/21/17 03:13 Labs: Abnormal Lab Results - Last 24 Hours (Table) 05/20/17 05/20/17 05/21/17 Range/Units 20:44 20:56 03:13 WBC 13.6 H (3.8-10.6) k/uL RBC 3.31 L (4.30-5.90) m/uL Hgb 10.8 L (13.0-17.5) gm/dL Hct 33.7 L (39.0-53.0) % MCV 101.8 H (80.0-100.0) fL Plt Count 523 H (150-450) k/uL Neutrophils # 11.1 H (1.3-7.7) k/uL Chloride (98-107) mmol/L BUN (9-20) mg/dL Creatinine (0.66-1.25) mg/dL Glucose (74-99) mg/dL POC Glucose (mg/dL) 224 H (75-99) mg/dL Troponin I 0.086 H* (0.000-0.034) ng/mL 05/21/17 05/21/17 05/21/17 Range/Units 03:13 03:13 06:05 WBC (3.8-10.6) k/uL RBC (4.30-5.90) m/uL Hgb (13.0-17.5) gm/dL Hct (39.0-53.0) % MCV (80.0-100.0) fL Plt Count (150-450) k/uL Neutrophils # (1.3-7.7) k/uL Chloride 108 H (98-107) mmol/L BUN 49 H (9-20) mg/dL Creatinine 1.40 H (0.66-1.25) mg/dL Glucose 207 H (74-99) mg/dL POC Glucose (mg/dL) 211 H (75-99) mg/dL Troponin I 0.079 H* (0.000-0.034) ng/mL 05/21/17 05/21/17 Range/Units 12:10 16:49 WBC (3.8-10.6) k/uL RBC (4.30-5.90) m/uL Hgb (13.0-17.5) gm/dL Hct (39.0-53.0) % MCV (80.0-100.0) fL Plt Count (150-450) k/uL Neutrophils # (1.3-7.7) k/uL Chloride (98-107) mmol/L BUN (9-20) mg/dL Creatinine (0.66-1.25) mg/dL Glucose (74-99) mg/dL POC Glucose (mg/dL) 156 H 193 H (75-99) mg/dL Troponin I (0.000-0.034) ng/mL Microbiology - Last 24 Hours (Table) 05/20/17 07:11 Catheter Tip Culture - Final Picc Line Coagulase Negative Staph Coagulase Negative Staph#2 05/20/17 07:11 Gram Stain - Preliminary Groin Wound Culture - Preliminary Assessment and Plan (1) Cardiopulmonary arrest with successful resuscitation Current Visit: Yes Status: Acute Code(s): I46.9 - CARDIAC ARREST, CAUSE UNSPECIFIED SNOMED Code(s): 107578024 (2) Anoxic encephalopathy Current Visit: Yes Status: Acute Code(s): G93.1 - ANOXIC BRAIN DAMAGE, NOT ELSEWHERE CLASSIFIED SNOMED Code(s): 283140177 (3) History of right-sided carotid endarterectomy Current Visit: Yes Status: Acute Code(s): Z98.890 - OTHER SPECIFIED POSTPROCEDURAL STATES SNOMED Code(s): 416785907 (4) Diabetes mellitus type 2 in obese Current Visit: Yes Status: Chronic Code(s): E11.69 - TYPE 2 DIABETES MELLITUS WITH OTHER SPECIFIED COMPLICATION; E66.9 - OBESITY, UNSPECIFIED SNOMED Code(s): 54154144 (5) Paroxysmal atrial fibrillation Current Visit: Yes Status: Chronic Code(s): I48.0 - PAROXYSMAL ATRIAL FIBRILLATION SNOMED Code(s): 217380165 Plan: This patient is a 76-year-old male who was recovering following recent right carotid endarterectomy surgery. He suffered cardiac arrest 2 days following the surgery. He has been making a slow but steady progress following his cardiac arrest and moderate degree of anoxic encephalopathy. He suffered an subacute stroke involving the right frontal lobe with residual left-sided hemiparesis. He is been able to follow all commands and is more awake and alert since being discharged from the intensive care unit. He is being evaluated for aggressive PT OT evaluation and possible inpatient rehab placement. The patient is showing improvement with left arm strength as compared to yesterday. As noted he is being evaluated by urology for urinary retention. Once he is medically cleared he will be going to the inpatient rehab unit under the care of Dr. Morrow. We will continue close neurological follow-up for the patient during this admission.
[2017-05-21] MEDS ORDERED: INSULIN DETEMIR 100 UNIT/ML 10 ML VIAL SQ SCH (21:00)
[2017-05-21 21:44] LABS: Glucose,Whole Blood 180 mg/dL (75-99)
[2017-05-22] MEDS: CARVEDILOL 12.5 MG TAB PO SCH ×2 (06:20→17:39)
[2017-05-22] MEDS: PANTOPRAZOLE 40 MG TABLET PO SCH (06:20)
[2017-05-22 06:38] LABS: Glucose,Whole Blood 201 mg/dL (75-99)
[2017-05-22 06:53] LABS: Albumin 3.6 g/dL (3.5-5.0); Calcium 9.8 mg/dL (8.4-10.2); Potassium 4.2 mmol/L (3.5-5.1); Total Bilirubin 0.7 mg/dL (0.2-1.3)
[2017-05-22 07:03] LABS: Basophils # (A) 0.1 k/uL (0-0.2); Basophils % (A) 1 %; Eosinophils # (A) 0.4 k/uL (0-0.7); Eosinophils % (A) 3 %; HCT 34.4 % (39.0-53.0); HGB 11.4 gm/dL (13.0-17.5); Lymphocytes # (A) 1.4 k/uL (1.0-4.8); Lymphocytes % (A) 12 %; MCH 33.3 pg (25.0-35.0); MCHC 33.2 g/dL (31.0-37.0); MCV 100.4 fL (80.0-100.0); Macrocytosis Slight; Monocytes # (A) 0.5 k/uL (0-1.0); Monocytes % (A) 4 %; Neutrophils # (A) 9.1 k/uL (1.3-7.7); Neutrophils % (A) 78 %; Platelet Count 538 k/uL (150-450); RBC 3.42 m/uL (4.30-5.90); RDW 14.8 % (11.5-15.5); WBC 11.7 k/uL (3.8-10.6)
[2017-05-22] MEDS: INSULIN ASPART 100 UNIT/ML 1 ML 10 ML VIAL SQ SCH ×7 (07:03→21:25)
[2017-05-22] MEDS: IPRATROPIUM-ALBUTEROL 3 ML NEB INHALATION SCH ×4 (07:10→21:10)
[2017-05-22] MEDS: HEPARIN SODIUM,PORCINE 5,000 UNIT/ML 1 ML VIAL SQ SCH ×3 (09:19→23:19)
[2017-05-22] MEDS: ASPIRIN 325 MG TAB PO SCH (09:20)
[2017-05-22] MEDS: PREGABALIN 75 MG CAP PO SCH ×2 (09:20→20:40)
[2017-05-22] MEDS: COLCHICINE 0.6 MG TAB PO SCH (09:20)
[2017-05-22] MEDS: SENNOSIDES-DOCUSATE SODIUM 1 EACH TAB PO SCH ×2 (09:20→21:24)
[2017-05-22] MEDS: FUROSEMIDE 40 MG TAB PO SCH (09:20)
[2017-05-22 12:25] LABS: Glucose,Whole Blood 215 mg/dL (75-99)
--- NOTE | 2017-05-22 13:47 | P.PN ---
<Socorro Desir - Last Filed: 05/22/17 13:42> Subjective Progress Note Date: 05/22/17 76-year-old male who underwent elective right carotid endarterectomy with patch angioplasty on 05/06/[address] Mckenzie was consulted for medical management. The patient has a history of bilateral carotid stenosis, atrial fibrillation, coronary disease, diabetes mellitus, gastroesophageal reflux disease, hyperlipidemia, hypertension, osteoarthritis, and sleep apnea. 05/07/2017 The patient was seen and examined in the intensive care unit on rounds Dr. Mckenzie. The patient is sitting up in the chair. Family is at the bedside. The patient remains on a nitro drip at 60 mcg/min. Systolic blood pressures ranging in the 140s. The patient is complaining of pain at the surgical site. Dressing is in place. Swelling is noted near surgical site. Patient denies shortness of breath or coughing. Denies chest pain or pressure. Denies nausea or vomiting. States he is tolerating PO intake well without nausea or vomiting. 05/08/2017 Patient remains in intensive care unit. He is postop day #2 right carotid endarterectomy. The patient is sitting up in the chair. the patient's nitro drip has been weaned off. He was started on Norvasc 10 mg daily yesterday along with hydralazine 50 mg by mouth 3 times a day. Patients blood sugars remain elevated in the 200s. Patient utilizes an insulin pump at home. Patient 's insulin pump is currently not with him as it was empty and patient's was going to bring his insulin pump back to the hospital after she refilled it. patient remains on 6 L nasal cannula with oxygen saturations greater than 92%. He denies shortness of breath. Denies chest pain or pressure. Tolerating by mouth intake without nausea or vomiting. WBC 13.2. Hemoglobin 10.6. BUN 38. Creatinine 1.40. 05/09/2017-Notes per Dr. Mckenzie 05/10/2017-Notes per Dr. Mckenzie 05/11/2017 Patient seen and examined at the bedside on rounds with Dr. Corona. Patient went into cardiac arrest on 05/08/2017 and was successfully resuscitated after approximately 20 minutes of CPR. Patient remains intubated in the intensive care unit on mechanical ventilation. Patient is currently on IV propofol secondary to patient biting on his ET tube and bucking the ventilator. Sedation holiday has not been performed per nursing secondary to hemodynamic instability. Patient remains on 50% FiO2. Patient has required vasopressor secondary to hypotension. Levophed is currently off this morning. Chest x-ray this morning reveals mild cardio megaly with persistent central bilateral perihilar edema and/or infiltrates. ARDS is not excluded. Patient remains on Lasix drip. Patient also remains on insulin drip. Creatinine this morning is 3.30. Nephrology is on consult. Patient underwent CT of the brain which was negative for an acute process. 05/12/2017 Patient seen and examined at the bedside on rounds with Dr. Corona. Patient remains intubated in the intensive care unit. Family at the bedside. Patient sedation has been held for approximately 40 minutes. Patient is not following commands but is moving all extremities. Patient's eyes are open but patient is not tracking currently. Tube feedings are infusing. Patient is tolerating well. Patient has not had a bowel movement per nursing and just received a rectal suppository. Patient remains on insulin drip. Currently at 8.5 units an hour. Lasix drip was discontinued this morning per nephrology. Creatinine 3.10 this morning. Urinary output remains adequate. Hematuria is improving. Blood pressure is currently elevated in the 170s which may be secondary to agitation as sedation has been on hold. Nursing reports blood pressure has been running in the 140s when patient is sedated. 05/13/2017 Patient seen and examined at the bedside on rounds with Dr. Corona. is at the bedside. Per nursing, patients propofol was off yesterday and patient was able to follow some simple commands. Patient became agitated this morning and sedation was resumed. It has since been turned off. Patient does remain lethargic. He is able to open his eyes to commands and slightly wiggle his toes upon command when asked repeatedly, but then drifts back off to sleep. Patient remains on an insulin dip at 11.5 units an hour. Blood sugars are 161-196. Boothe remains intact with blood tinged urine. Tube feeding is infusing at 45 cc/ hr which is goal. Patient tolerated well. Bowel movement yesterday. Blood pressure remains elevated at times. Hydralazine PRN was ordered yesterday. Coreg has been ordered today per pulmonary. 05/14/2017 Patient seen and examined at the bedside on rounds with Dr. Corona. Patient remains on mechanical ventilation. FiO2 has been decreased to 40% per pulmonary. Patient remains off sedation and is able to follow simple commands. Tube feeding is infusing at 45 mL an hour which is goal. Patient is tolerating well. Indwelling urinary catheter remains intact with blood-tinged urine. Blood sugars are ranging between 140 and 174. Patient remains on an insulin drip. 05/15/2017 patient seen and examined at the bedside in the intensive care unit. Patient has been asked to be and is currently on BiPAP with FiO2 of 40%. Oxygen saturation is greater than 92%. Patient continues to have left sided weakness and underwent CT of the brain. CT of the brain reveals small right posterior frontal lobe cortical infarct. Evidence of subacute lacunar infarct in the right internal capsule that appears new in comparison to old exam. his aspirin was increased to 325 mg daily per neurology. chest x-ray this morning reveals improvement in pulmonary vascular congestion and persistent trace left pleural effusion. patient's sodium this morning is 153. Nephrology ordered D5W at 50 cc for 6 hours. Patient's potassium remains borderline low as well. Potassium supplementation ordered per nephrology. blood sugars are ranging from 137-155. Patient remains on insulin drip. 05/16/2017-Note per Dr. Mckenzie 05/17/2017-Note per Dr. Mckenzie 05/18/2017 Patient seen and examined at the bedside. patient remains hemodynamically stable. On 3 L nasal cannula with oxygen saturations greater then 92%. Most recent blood pressure 128/60. Patient is afebrile. Heart rate is in the 80s. Patient underwent modified barium swallow and passed. Patient able to tolerable all consistencies of food. Patient has been placed on a heart healthy diet. Dr. Morrow has been consulted for possible inpatient rehab. Patient was found to have unequal pupils and underwent CT scan of the brain on 05/17/2017 which was negative for an acute intercranial hemorrhage or midline shift. There is diffuse age-related cerebral atrophy and chronic small vessel ischemic changes noted. Enchepalomalacia in the right frontal lobe from prior infarct. Patient underwent a repeat CT of the brain on 05/18/2017 which revealed focal cortical and subcortical hypodensity posterior frontal lobe is now seen compatible with subacute infarct. No acute intercranial hemorrhage or midline shift. Chest x-ray from 05/17/2017 reveals retrocardiac opacity that may represent a small pleural effusion with atelectasis and/or pneumonia. Enlargement pulmonary vasculature may relate to underlying pulmonary arterial hypertension. 05/19/2017 Patient seen and examined at the bedside. Spouse at the bedside. Patient is awake and alert. Patient remains hemodynamically stable. personnel monitor reveals sinus bradycardia to sinus rhythm. Blood pressure stable with a last reading of 137/59. Patient is on 3 L nasal cannula with oxygen saturations greater than 92%. Patient underwent modified barium swallow yesterday and passed. Patient is tolerating PO intake without nausea or vomiting. patient with generalized complaints of pain. Patient was started on Reynolds 10 every 6 hours when necessary yesterday per Dr. Mckenzie. WBC this morning is 11.1, down from 12.0 yesterday. hemoglobin remained stable at 9.8. Potassium 4.0. BUN 60. Creatinine 1.95. Patient's sugars have remained elevated ranging from 198- 239. 05/20/2017 Patient seen and examined at the bedside. Spouse at the bedside. Patient is awake and alert. Patient remains hemodynamically stable. personnel monitor reveals sinus bradycardia to sinus rhythm. Blood pressure this morning is slightly elevated at 158/72. Previous reading 167/74. Urinary catheter remains intact with clear yellow urine. Patient states he has been having chest pain on and off today. Currently denies chest pain during examination. 05/21/2017 Patient seen and examined at the bedside. Spouse at the bedside. Patient is awake and alert. Patient remains hemodynamically stable. personnel monitor reveals sinus rhythm. Indwelling urinary catheter was discontinued yesterday. Patient has voided since removal, but is still experiencing urinary retention. central line catheter was removed yesterday from right groin and was cultured revealing coagulase-negative staph, likely contamination. white count today 13.6. Hemoglobin 10.8. Potassium 4.2. BUN 49. Creatinine 1.40. Blood sugars remain elevated ranging from 207-274. Patient remains on Levemir 30 units at night. He was also started on NovoLog 10 units with meals yesterday. 05/22/2017 Patient seen and examined at the bedside. Patients urinary catheter was discontinued on 05/20/2017 but patient continued to experience urinary retention. His catheter was reinserted yesterday. He was started on Flomax and urology was consulted. Patients blood pressure remains elevated. Blood sugars are also elevated. He is on Levemir 50 units at HS along with Novolog 15 units with meals. Objective - Vital Signs Vital signs: Vital Signs Temp 97.3 F L 05/22/17 04:00 Pulse 84 05/22/17 07:24 Resp 18 05/22/17 04:00 BP 165/72 05/22/17 04:00 Pulse Ox 94 L 05/22/17 07:13 Intake & Output 05/21/17 05/22/17 05/22/17 18:59 06:59 18:59 Intake Total 240 Output Total 1025 675 Balance -785 -675 Weight 127 kg 195 kg Intake: Oral 240 Output: Urine 1025 675 Other: Voiding Method Urinal Indwelling Catheter ABP, PAP, CO, CI - Last Documented Arterial Blood Pressure 165/47 - Exam GENERAL: This is a 76-year-old male who is awake and alert. HEENT: Head is atraumatic, normocephalic. Pupils are equal, round, and reactive to light. Sclerae anicteric. Conjunctivae are clear. Mucus membranes of the mouth are moist. Neck is supple. Extensive ecchymosis noted throughout neck. RESPIRATORY: Diminished throughout. Patient maintaining oxygen saturation greater than 92%. No chest wall tenderness is noted on palpation or with deep breathing. CARDIOVASCULAR: Regular rate and rhythm. S1 and S2 noted. No systolic or diastolic murmur auscultated. No JVD noted. No S3 or S4 noted. GASTROINTESTINAL: No distention noted. Abdomen soft and round. Normal active bowel sounds auscultated x 4 quadrants. No pain or tenderness noted upon palpation. INTEGUMENTARY: Ecchymosis noted around surgical area. No cyanosis. No jaundice. EXTREMITIES: 1+ peripheral pulses. trace bilateral lower extremity edema No calf tenderness noted. NEUROLOGIC/PSYCHIATRIC: alert and oriented 2-3. patient able to move all extremities, left side remains weak. Speech is clear. - Labs CBC & Chem 7: 05/22/17 06:15 05/22/17 06:15 Labs: Abnormal Lab Results - Last 24 Hours (Table) 05/21/17 05/21/17 05/21/17 Range/Units 12:10 16:49 21:26 WBC (3.8-10.6) k/uL RBC (4.30-5.90) m/uL Hgb (13.0-17.5) gm/dL Hct (39.0-53.0) % MCV (80.0-100.0) fL Plt Count (150-450) k/uL Neutrophils # (1.3-7.7) k/uL Chloride (98-107) mmol/L BUN (9-20) mg/dL Glucose (74-99) mg/dL POC Glucose (mg/dL) 156 H 193 H 180 H (75-99) mg/dL 05/22/17 05/22/17 05/22/17 Range/Units 06:15 06:15 06:15 WBC 11.7 H (3.8-10.6) k/uL RBC 3.42 L (4.30-5.90) m/uL Hgb 11.4 L (13.0-17.5) gm/dL Hct 34.4 L (39.0-53.0) % MCV 100.4 H (80.0-100.0) fL Plt Count 538 H (150-450) k/uL Neutrophils # 9.1 H (1.3-7.7) k/uL Chloride 109 H (98-107) mmol/L BUN 44 H (9-20) mg/dL Glucose 198 H (74-99) mg/dL POC Glucose (mg/dL) 201 H (75-99) mg/dL Microbiology - Last 24 Hours (Table) 05/20/17 07:11 Catheter Tip Culture - Final Picc Line Coagulase Negative Staph Coagulase Negative Staph#2 05/20/17 07:11 Gram Stain - Preliminary Groin Wound Culture - Preliminary Assessment and Plan Plan: ASSESSMENT: Bilateral carotid stenosis, s/p right carotid endarterectomy, POD #17 Acute cardiopulmonary arrest requiring mechanical ventilation, likely secondary to acute pulmonary edema with a downtime of at least 20 minutes, extubated 05/14 Acute exacerbation of systolic congestive heart failure, ejection fraction 20%, improved subacute lacunar infarct involving the right internal capsule with left-sided hemiparesis Suspected acute non-ST elevated OR Acute kidney injury, suspect secondary to prolonged cardiopulmonary arrest and diuresis, improving Chronic disease, stage III, secondary to nephrosclerosis baseline creatinine 1.2 Hypoxic/anoxic encephalopathy secondary to prolonged cardiopulmonary arrest, improving Hypertension Diabetes mellitus, type II, utilizing insulin pump at home Coronary artery disease Atrial fibrillation, on group home anticoagulation with Pradaxa Hematuria, thought to be secondary to Pradaxa which has been placed on hold, improving Hyperlipidemia Hypernatremia, resolved hypokalemia, secondary to diuresis, resolved Osteoarthritis with previous multiple joint replacements Morbid obesity: BMI 42.8 PLAN: Continue postoperative management per vascular surgery Begin hydralazine 25mg PO TID per Dr. Mckenzie Urology consult. Await further recommendations and input Continue urinary urinary catheter Continue NovoLog sliding scale coverage AC/HS Increase Levemir to 35 units BID Increase Novolog to 18 units with meals Physical therapy and occupational therapy Home meds as appropriate Monitor labs GI prophylaxis: Protonix 40mg PO daily DVT prophylaxis: CONCEPCIÓN hose and Venodyne's to bilateral lower extremities Monitor vital signs and address as appropriate Further recommendations pending patient's course Case management continues to work on discharge planning Nurse practitioner note has been reviewed by physician. Signing provider agrees with the documented findings, assessment, and plan of care. <Patrick Mckenzie Jr - Last Filed: 05/23/17 08:39> Objective - Vital Signs Vital signs: Vital Signs Temp 97.2 F L 05/23/17 04:00 Pulse 68 05/23/17 04:00 Resp 18 05/23/17 04:00 BP 126/65 05/23/17 04:00 Pulse Ox 95 05/23/17 04:00 Intake & Output 05/22/17 05/23/17 05/23/17 18:59 06:59 18:59 Intake Total 810 Output Total 1475 775 Balance -665 -775 Weight 131.81 kg 84.5 kg Intake: Oral 810 Output: Urine 1475 775 Other: Voiding Method Indwelling Catheter Indwelling Catheter # Bowel Movements 1 ABP, PAP, CO, CI - Last Documented Arterial Blood Pressure 165/47 - Labs CBC & Chem 7: 05/22/17 06:15 05/22/17 06:15 Labs: Abnormal Lab Results - Last 24 Hours (Table) 05/22/17 05/22/17 05/22/17 Range/Units 12:02 16:57 20:14 POC Glucose (mg/dL) 215 H 162 H 195 H (75-99) mg/dL 05/23/17 05/23/17 Range/Units 02:22 06:12 POC Glucose (mg/dL) 154 H 161 H (75-99) mg/dL Assessment and Plan (1) Cardiopulmonary arrest with successful resuscitation Current Visit: Yes Status: Acute Code(s): I46.9 - CARDIAC ARREST, CAUSE UNSPECIFIED SNOMED Code(s): 036544103 (2) History of coronary artery disease Current Visit: Yes Status: Chronic Code(s): Z86.79 - PERSONAL HISTORY OF OTHER DISEASES OF THE CIRCULATORY SYSTEM SNOMED Code(s): 762913562 (3) Stenosis of right carotid artery Current Visit: Yes Status: Chronic Code(s): I65.21 - OCCLUSION AND STENOSIS OF RIGHT CAROTID ARTERY SNOMED Code(s): 453640146101588
--- NOTE | 2017-05-22 13:57 | P.PN ---
Subjective Progress Note Date: 05/22/17 Principal diagnosis: Hemodynamically severe right internal carotid artery stenosis, hypertension, hyperlipidemia, gout, diabetes mellitus type 2, obstructive sleep apnea with home BiPAP, history of paroxysmal atrial fibrillation on Pat home, history of coronary artery disease, GERD, and osteoarthritis. POD #15, elective right carotid endarterectomy with bovine pericardial patch angioplasty. Postoperative hematoma present at surgical site, an expected outcome given CPR during resuscitation as well as long-standing history of anticoagulation. Status post cardiopulmonary arrest with resuscitation, suspect non-ST elevated myocardial infarction. Acute systolic heart failure with an ejection fraction of less than 20%. Acute kidney injury likely secondary to cardiac arrest with 30 minutes down time. Postoperative subacute lacunar infarct involving the right internal capsule with left-sided hemiparesis. Patient is currently sitting up to the bedside chair. He is in no acute distress. He reports that he is uncomfortable sitting in the chair as his hips are giving him some pain. Currently rates his pain 5 out of 10 on the pain scale. The patient is alert and oriented [address], when asked him what the year was E said 1985. His is at his bedside. Questions answered to the best by my ability. He remains having some left-sided weakness but is moving all 4 extremities. Boothe catheter remains in place for urinary retention. Anticipate discharge to inpatient rehab over the weekend or Thursday. Objective - Vital Signs Vital signs: Vital Signs Temp 97.2 F L 05/22/17 08:15 Pulse 76 05/22/17 11:14 Resp 18 05/22/17 08:15 BP 131/60 05/22/17 08:15 Pulse Ox 97 05/22/17 08:15 Intake & Output 05/21/17 05/22/17 05/22/17 18:59 06:59 18:59 Intake Total 240 400 Output Total 1025 675 Balance -785 -675 400 Weight 127 kg 195 kg Intake: Oral 240 400 Output: Urine 1025 675 Other: Voiding Method Urinal Indwelling Catheter Indwelling Catheter ABP, PAP, CO, CI - Last Documented Arterial Blood Pressure 165/47 - Constitutional General appearance: Present: cooperative, no acute distress, obese - EENT Eyes: Present: PERRLA ENT: Present: hearing grossly normal - Neck Details: No JVD, no lymphadenopathy. Right neck incision with ecchymosis. Remains approximated, no redness or drainage present. Hematoma remains present although smaller to palpate. - Respiratory Details: Lungs sounds essentially clear throughout, diminished to his bilateral bases. Respirations are symmetrical and nonlabored. Oxygen saturation are 97% on room air. - Cardiovascular Details: Regular rhythm and rate. S1 and S2 present, negative for S3, gallop or murmur. Remote telemetry showing normal sinus rhythm with depressed ST heart rate 71. No edema present. Knee-high CONCEPCI[place]N hose and sequential compression devices in place was bilateral lower extremities. - Gastrointestinal Gastrointestinal Comment(s): Abdomen is soft, nontender nondistended. Active bowel sounds all 4 abdominal quadrants. Tolerating oral intake. Bowel movement this a.m. - Genitourinary Genitourinary Comment(s): Boothe catheter for accurate I&O and urine retention. Clear yellow urine. Adequate urine output. - Integumentary Integumentary Comment(s): Skin is warm and dry. No clubbing or cyanosis. Right neck incision clean dry and approximated. Hematoma remains but is decreasing in size. No drainage or redness present. Ecchymosis remains to his neck incision but is improving. - Neurologic Neurologic: Present: CNII-XII intact - Musculoskeletal Musculoskeletal: Present: left sided weakness - Psychiatric Psychiatric Comment(s): Oriented [address]. Disoriented to time. Attempts made oriented to time. Psychiatric: Present: appropriate affect, intact judgment & insight - Allied health notes Allied health notes reviewed: nursing - Labs CBC & Chem 7: 05/22/17 06:15 05/22/17 06:15 Labs: Abnormal Lab Results - Last 24 Hours (Table) 05/21/17 05/21/17 05/22/17 Range/Units 16:49 21:26 06:15 WBC 11.7 H (3.8-10.6) k/uL RBC 3.42 L (4.30-5.90) m/uL Hgb 11.4 L (13.0-17.5) gm/dL Hct 34.4 L (39.0-53.0) % MCV 100.4 H (80.0-100.0) fL Plt Count 538 H (150-450) k/uL Neutrophils # 9.1 H (1.3-7.7) k/uL Chloride (98-107) mmol/L BUN (9-20) mg/dL Glucose (74-99) mg/dL POC Glucose (mg/dL) 193 H 180 H (75-99) mg/dL 05/22/17 05/22/17 05/22/17 Range/Units 06:15 06:15 12:02 WBC (3.8-10.6) k/uL RBC (4.30-5.90) m/uL Hgb (13.0-17.5) gm/dL Hct (39.0-53.0) % MCV (80.0-100.0) fL Plt Count (150-450) k/uL Neutrophils # (1.3-7.7) k/uL Chloride 109 H (98-107) mmol/L BUN 44 H (9-20) mg/dL Glucose 198 H (74-99) mg/dL POC Glucose (mg/dL) 201 H 215 H (75-99) mg/dL Assessment and Plan (1) Stenosis of right carotid artery Current Visit: Yes Status: Chronic Code(s): I65.21 - OCCLUSION AND STENOSIS OF RIGHT CAROTID ARTERY SNOMED Code(s): 469373528046347 (2) Hypertension Current Visit: Yes Status: Chronic Code(s): I10 - ESSENTIAL (PRIMARY) HYPERTENSION SNOMED Code(s): 06508093 (3) Hyperlipidemia Current Visit: Yes Status: Chronic Code(s): E78.5 - HYPERLIPIDEMIA, UNSPECIFIED SNOMED Code(s): 96920931 (4) BPH (benign prostatic hyperplasia) Current Visit: Yes Status: Acute Code(s): N40.0 - BENIGN PROSTATIC HYPERPLASIA WITHOUT LOWER URINRY TRACT SYMP SNOMED Code(s): 122444910 (5) Paroxysmal atrial fibrillation Current Visit: Yes Status: Chronic Code(s): I48.0 - PAROXYSMAL ATRIAL FIBRILLATION SNOMED Code(s): 495226862 (6) Gout Current Visit: Yes Status: Chronic Code(s): M10.9 - GOUT, UNSPECIFIED SNOMED Code(s): 35539390 (7) GERD (gastroesophageal reflux disease) Current Visit: Yes Status: Chronic Code(s): K21.9 - GASTRO-ESOPHAGEAL REFLUX DISEASE WITHOUT ESOPHAGITIS SNOMED Code(s): 056671968 (8) Obstructive sleep apnea Current Visit: Yes Status: Chronic Code(s): G47.33 - OBSTRUCTIVE SLEEP APNEA (ADULT) (PEDIATRIC) SNOMED Code(s): 47900095 (9) Osteoarthritis Current Visit: Yes Status: Acute Code(s): M19.90 - UNSPECIFIED OSTEOARTHRITIS, UNSPECIFIED SITE SNOMED Code(s): 529467629 (10) History of coronary artery disease Current Visit: Yes Status: Chronic Code(s): Z86.79 - PERSONAL HISTORY OF OTHER DISEASES OF THE CIRCULATORY SYSTEM SNOMED Code(s): 874952570 (11) Diabetes mellitus type 2 in obese Current Visit: Yes Status: Chronic Code(s): E11.69 - TYPE 2 DIABETES MELLITUS WITH OTHER SPECIFIED COMPLICATION; E66.9 - OBESITY, UNSPECIFIED SNOMED Code(s): 81915753 (12) Morbid obesity Current Visit: Yes Status: Chronic Code(s): E66.01 - MORBID (SEVERE) OBESITY DUE TO EXCESS CALORIES SNOMED Code(s): 273238163 (13) Neuropathy Current Visit: Yes Status: Acute Code(s): G62.9 - POLYNEUROPATHY, UNSPECIFIED SNOMED Code(s): 224222816 Plan: 1. Continue current medical management per primary care service. 2. Cardiology management for post myocardial infarction, cardiopulmonary arrest. 3. Encourage incentive spirometry use 10 times every hour while awake. 4. GI/DVT prophylaxis. 5. Will continue to monitor daily labs and x-rays. 6. We will restart his Pradaxa today, discontinue his heparin and reduce his aspirin to low dose aspirin daily. 7. Increase activity as tolerated. PT/OT following. Patient will need aggressive physical therapy when discharged. 8. Continue Boothe catheter for urinary retention. Flomax 0.4 mg by mouth daily at bedtime. 9. Right carotid endarterectomy site remains stable. 10. Anticipate discharge to inpatient rehab 48 hours. 11. More recommendations to follow as patient progresses in his care. Time with Patient: Greater than 30
--- NOTE | 2017-05-22 16:20 | P.PN ---
Subjective Progress Note Date: 05/22/17 This patient is a 76-year-old right-handed white male who was undergone a right carotid endarterectomy and is postoperative day #13 today. Patient was in the intensive care unit where he has been recovering following cardiopulmonary arrest 2 days after his carotid surgery. He was sent for a computed tomography scan of the brain back on 05/14/2017 after his neurological exam reveals some left-sided weakness. The CAT scan of the brain revealed evidence of a subacute lacunar infarct in the right internal capsule. He is conversing with his granddaughter who was at bedside. He does seem to be much more awake and is doing much better since the last few days. He does have significant left-sided weakness consistent with CAT scan findings of acute stroke. We are recommending a follow-up computed tomography scan of the brain to be done tomorrow for follow-up and comparison. The patient has remained hemodynamically stable. He continues to notice left-sided weakness and he will require aggressive physical therapy for further treatment. He did show some change in mental status 2 days ago and was sent for a stat computed tomography scan of the brain. This CAT scan failed to reveal any acute changes. Patient had a follow-up computed tomography scan of the brain done today which reveals a focal cortical and subcortical hypodensity in the right frontal lobe suggesting subacute infarct. No evidence of hemorrhage. He appears to be doing much better today and is showing no further change in mentation. It is possible this may have been a drug effect of some of his pain medication producing an acute mental status change. He is showing signs of significant improvement from a finding of anoxic encephalopathy following his cardiac arrest. We would recommend that he continue with aggressive PT/OT evaluations. Patient is being considered for possible subacute rehab placement. His neurological exam findings continued reveal left-sided hemiparesis which does show some improvement in strength as compared to yesterday. Patient did develop urinary retention and is being checked with a bladder scan. Urology has been consulted and will be seeing the patient. Patient is awaiting possible discharge to subacute rehab once he is medically stable. His neurological examination continues to reveal evidence of left-sided hemiparesthesias from his recent stroke. Patient would be an excellent candidate for inpatient rehabilitation. We will be away over the weekend but will check on his status on Thursday and will continue close monitoring during this admission. We will continue close neurological follow-up with the patient during this admission. Objective - Vital Signs Vital signs: Vital Signs Temp 97.2 F L 05/22/17 08:15 Pulse 76 05/22/17 11:14 Resp 18 05/22/17 08:15 BP 131/60 05/22/17 08:15 Pulse Ox 97 05/22/17 08:15 Intake & Output 05/21/17 05/22/17 05/22/17 18:59 06:59 18:59 Intake Total 240 630 Output Total 1025 675 Balance -785 -675 630 Weight 127 kg 195 kg 131.81 kg Intake: Oral 240 630 Output: Urine 1025 675 Other: Voiding Method Urinal Indwelling Catheter Indwelling Catheter ABP, PAP, CO, CI - Last Documented Arterial Blood Pressure 165/47 - Exam Physical examination: PHYSICAL EXAMINATION: Patient is resting comfortably in bed. VITAL SIGNS: Blood pressure is [131/60]. Heart rate is [67]. Respiration is [18] . Temperature is [97.2]. HEENT: Head is atraumatic, neck is supple, there were no carotid bruits. CHEST: Lungs are clear to auscultation and percussion. CARDIAC: S1, S2 normal rate and rhythm. There is no murmur. ABDOMEN: Soft and nontender. Bowel sounds are present. EXTREMITIES: There is no pedal edema. Peripheral pulses are present. Neurological examination: Patient is examined today on the medical floor. He is more awake and alert today. Cranial nerves II through XII are grossly intact. No evidence of anisocoria of significance. Motor examination reveals left-sided hemiparesis 3+ /5 on the left side. The deep tendon reflexes are 1+ and symmetric. Plantar responses flexor bilaterally. Coordination and gait cannot be assessed in this patient at this time. Patient is able to use a handlebar above his bed today white effectively. - Labs CBC & Chem 7: 05/22/17 06:15 05/22/17 06:15 Labs: Abnormal Lab Results - Last 24 Hours (Table) 05/21/17 05/21/17 05/22/17 Range/Units 16:49 21:26 06:15 WBC 11.7 H (3.8-10.6) k/uL RBC 3.42 L (4.30-5.90) m/uL Hgb 11.4 L (13.0-17.5) gm/dL Hct 34.4 L (39.0-53.0) % MCV 100.4 H (80.0-100.0) fL Plt Count 538 H (150-450) k/uL Neutrophils # 9.1 H (1.3-7.7) k/uL Chloride (98-107) mmol/L BUN (9-20) mg/dL Glucose (74-99) mg/dL POC Glucose (mg/dL) 193 H 180 H (75-99) mg/dL 05/22/17 05/22/17 05/22/17 Range/Units 06:15 06:15 12:02 WBC (3.8-10.6) k/uL RBC (4.30-5.90) m/uL Hgb (13.0-17.5) gm/dL Hct (39.0-53.0) % MCV (80.0-100.0) fL Plt Count (150-450) k/uL Neutrophils # (1.3-7.7) k/uL Chloride 109 H (98-107) mmol/L BUN 44 H (9-20) mg/dL Glucose 198 H (74-99) mg/dL POC Glucose (mg/dL) 201 H 215 H (75-99) mg/dL Assessment and Plan (1) Cardiopulmonary arrest with successful resuscitation Current Visit: Yes Status: Acute Code(s): I46.9 - CARDIAC ARREST, CAUSE UNSPECIFIED SNOMED Code(s): 815981085 (2) Anoxic encephalopathy Current Visit: Yes Status: Acute Code(s): G93.1 - ANOXIC BRAIN DAMAGE, NOT ELSEWHERE CLASSIFIED SNOMED Code(s): 830894079 (3) History of right-sided carotid endarterectomy Current Visit: Yes Status: Acute Code(s): Z98.890 - OTHER SPECIFIED POSTPROCEDURAL STATES SNOMED Code(s): 003219354 (4) Diabetes mellitus type 2 in obese Current Visit: Yes Status: Chronic Code(s): E11.69 - TYPE 2 DIABETES MELLITUS WITH OTHER SPECIFIED COMPLICATION; E66.9 - OBESITY, UNSPECIFIED SNOMED Code(s): 74926311 (5) Paroxysmal atrial fibrillation Current Visit: Yes Status: Chronic Code(s): I48.0 - PAROXYSMAL ATRIAL FIBRILLATION SNOMED Code(s): 218863610 Plan: This patient is a 76-year-old male who was recovering following recent right carotid endarterectomy surgery. He suffered cardiac arrest 2 days following the surgery. He has been making a slow but steady progress following his cardiac arrest and moderate degree of anoxic encephalopathy. He suffered an subacute stroke involving the right frontal lobe with residual left-sided hemiparesis. He is been able to follow all commands and is more awake and alert since being discharged from the intensive care unit. He is being evaluated for aggressive PT OT evaluation and possible inpatient rehab placement. The patient is showing improvement with left arm strength as compared to yesterday. As noted he is being evaluated by urology for urinary retention. Once he is medically cleared he will be going to the inpatient rehab unit under the care of Dr. Morrow. According to the nursing staff he is being evaluated for possible discharge to subacute rehab possibly over the weekend. We will be awaiting over the weekend and will recheck his status on Thursday if he is still an inpatient. We will continue close neurological follow- up for the patient during this admission.
[2017-05-22] MEDS: HYDROcodone/APAP 10-325MG 1 EACH TAB PO PRN ×2 (16:36→23:58)
[2017-05-22] MEDS: hydrALAZINE HCL 25 MG TAB PO SCH ×2 (16:38→21:24)
[2017-05-22 17:22] LABS: Glucose,Whole Blood 162 mg/dL (75-99)
[2017-05-22] MEDS: TAMSULOSIN 0.4 MG CAP.ER.24H PO SCH (17:39)
[2017-05-22 20:28] LABS: Glucose,Whole Blood 195 mg/dL (75-99)
[2017-05-22] MEDS: INSULIN DETEMIR 100 UNIT/ML 10 ML VIAL SQ SCH (21:26)
[2017-05-23 02:02] VITALS: RESP 18
[2017-05-23 02:24] LABS: Glucose,Whole Blood 154 mg/dL (75-99)
[2017-05-23 06:15] LABS: Glucose,Whole Blood 161 mg/dL (75-99)
[2017-05-23] MEDS: INSULIN ASPART 100 UNIT/ML 1 ML 10 ML VIAL SQ SCH ×2 (06:55→09:01)
[2017-05-23] MEDS: PANTOPRAZOLE 40 MG TABLET PO SCH (06:55)
[2017-05-23] MEDS: CARVEDILOL 12.5 MG TAB PO SCH (06:56)
[2017-05-23] MEDS: IPRATROPIUM-ALBUTEROL 3 ML NEB INHALATION SCH ×2 (07:45→11:28)
[2017-05-23] MEDS: INSULIN DETEMIR 100 UNIT/ML 10 ML VIAL SQ SCH (08:55)
[2017-05-23] MEDS: COLCHICINE 0.6 MG TAB PO SCH (08:55)
[2017-05-23] MEDS: hydrALAZINE HCL 25 MG TAB PO SCH (08:56)
[2017-05-23] MEDS: FUROSEMIDE 40 MG TAB PO SCH (08:56)
[2017-05-23] MEDS: SENNOSIDES-DOCUSATE SODIUM 1 EACH TAB PO SCH (08:57)
[2017-05-23] MEDS ORDERED: ASPIRIN 81 MG PO SCH (09:00)
[2017-05-23] MEDS ORDERED: DABIGATRAN 75 MG CAP PO SCH (09:00)
[2017-05-23] MEDS: PREGABALIN 75 MG CAP PO SCH (09:01)
[2017-05-23 09:44] VITALS: BP 127/65; PULSE 65; TEMP 97
--- NOTE | 2017-05-23 10:25 | P.DS ---
Providers Date of admission: 05/06/17 11:59 Expected date of discharge: 05/23/17 Attending physician: Marshall Osei, DO Consults: 05/06/17 20:11 Consult Physician Routine Consulting Provider: Spencer Juárez Consult Reason/Comments: vascular management Do you want consulting provider notified?: Already Contacted 05/06/17 22:16 Consult Physician Urgent Consulting Provider: Toño Kinney Consult Reason/Comments: bipap post surgery, critical abg Do you want consulting provider notified?: Yes 05/07/17 08:32 Consult Physician Urgent Consulting Provider: Patrick Mckenzie Jr Consult Reason/Comments: medical management Do you want consulting provider notified?: Yes 05/08/17 19:11 Consult Physician Stat Consulting Provider: Chidi Koch Consult Reason/Comments: chest pain Do you want consulting provider notified?: Yes 05/09/17 09:02 Consult Physician Routine Consulting Provider: Morena Hollins Consult Reason/Comments: increased creatinine, blood in urine, decreased urine output. Do you want consulting provider notified?: Yes 05/11/17 09:33 Consult Physician Routine Consulting Provider: Guerda Cook Consult Reason/Comments: s/p cardiac arrest, encephalopathy Do you want consulting provider notified?: Yes 05/11/17 15:55 Consult Physician Routine Consulting Provider: Maggy Chávez Consult Reason/Comments: cardiopulmonary arrest, patient sedated and on vent. Do you want consulting provider notified?: Already Contacted 05/18/17 08:28 Consult Physician Routine Consulting Provider: Vidal Morrow Consult Reason/Comments: Inpatient rehab Do you want consulting provider notified?: Yes 05/21/17 13:36 Consult Physician Routine Consulting Provider: Jonny Norton Consult Reason/Comments: Urinary retention Do you want consulting provider notified?: Yes Primary care physician: Patrick Mckenzie - Michael Diagnosis(es) (1) Stenosis of right carotid artery Current Visit: Yes Status: Chronic (2) Hypertension Current Visit: Yes Status: Chronic (3) Hyperlipidemia Current Visit: Yes Status: Chronic (4) BPH (benign prostatic hyperplasia) Current Visit: Yes Status: Acute (5) Paroxysmal atrial fibrillation Current Visit: Yes Status: Chronic (6) Gout Current Visit: Yes Status: Chronic (7) GERD (gastroesophageal reflux disease) Current Visit: Yes Status: Chronic (8) Obstructive sleep apnea Current Visit: Yes Status: Chronic (9) Osteoarthritis Current Visit: Yes Status: Acute (10) History of coronary artery disease Current Visit: Yes Status: Chronic (11) Diabetes mellitus type 2 in obese Current Visit: Yes Status: Chronic (12) Morbid obesity Current Visit: Yes Status: Chronic (13) Neuropathy Current Visit: Yes Status: Acute Hospital Course: FINAL DIAGNOSIS: 1. Hemodynamically severe right internal carotid artery stenosis 2. Hypertension 3. Hyperlipidemia 4. Diabetes mellitus type 2 5. Obstructive sleep apnea with home BiPAP 6. Gout 7. History of paroxysmal atrial fibrillation, on Pradaxa at home 8. Osteoarthritis 9. GERD 10. Postoperative cardiopulmonary arrest with resuscitation, non-ST elevated myocardial infarction 11. Postoperative hematoma present at surgical site, an expected outcome given CPR during resuscitation as well as long-standing history of anticoagulation 12. Acute systolic heart failure with an ejection fraction of less than 20% 13. Acute kidney injury likely secondary to cardiac arrest with 30 minutes down time 14. Obesity 15. Postoperative subacute lacunar infarct involving the right internal capsule with left-sided hemiparesis PRINCIPAL PROCEDURE: 1. Elective right carotid endarterectomy with bovine pericardial patch angioplasty. HISTORY OF PRESENT ILLNESS: This is a 76-year-old gentleman who is followed by Dr. Patrick Mckenzie on an outpatient basis. Patient has a medical history significant for hypertension, hyperlipidemia, diabetes mellitus type 2, obstructive sleep apnea with home BiPAP, gout, paroxysmal atrial fibrillation, on Pradaxa at home, osteoarthritis, GERD and obesity. The patient was recently found to have a hemodynamically significant right internal carotid artery stenosis on a carotid duplex study which was subsequently confirmed with a MRA of the carotid arteries. The patient denied any focal motor or neurological deficits. He was seen and examined by Dr. Marshall Haney who reviewed the carotid duplex and MRA results with the patient and an elective right carotid endarterectomy surgery was recommended. The risks and benefits of the surgery were discussed with the patient and the patient decided to proceed with the elective right internal artery carotid endarterectomy surgery. HOSPITAL COURSE: the patient was admitted to the hospital and after obtaining consent was taken to the operating room where performed an elective right carotid endarterectomy with bovine pericardial patch angioplasty. He was subsequently transferred to the intensive care unit where he was recovered and monitored hemodynamically. Postoperatively the patient was doing fairly well until the evening of postoperative day #2 when the patient went into full cardiopulmonary arrest with CPR and resuscitation. The patient had a downtime of approximately 30 minutes and had his suspected non -ST elevated myocardial infarction. He was extubated on 05/14/2017 on postoperative day number #8, he was noted to have some left-sided weakness and subsequently underwent a computed tomography scan of his brain. The CT computed tomography scan of his brain revealed a subacute lacunar infarct involving the right internal capsule. Subsequently all of his lines, and supportive drips were discontinued when appropriate and he was transferred to [address] [place] [address] for further monitoring and rehabilitation. His oxygen was eventually titrated down, he continues to work with physical therapy and occupational therapy and is ready to be discharged to [facility] on postoperative day number 16 where he will require aggressive physical and occupational therapy treatments. The patient and his have received written and verbal instructions regarding his medications, signs and symptoms requiring physician notification and follow-up appointments. COMPLICATIONS: His postoperative period was complicated by cardiopulmonary arrest with resuscitation, non-ST elevated myocardial infarction, subacute lacunar infarct involving the right internal capsule with left-sided hemiparesis and acute kidney injury likely secondary to cardiac arrest with a 30 minute down time. CONSULTATIONS: 1. Dr. Mckenzie for medical management. 2. Dr. Kinney for pulmonary management. 3. Dr. Chávez for neurology management. 4. Dr. Hollins for nephrology management. 5. Dr. VC Garza for cardiology management. 6. Dr. Morrow for rehab management. DISCHARGE INSTRUCTIONS: 1. No driving until physician gives their ok. 2. Boothe catheter for urine retention, discontinue when okay with urology. Continue Flomax. 3. Physical therapy and occupational therapy to evaluate and treat. 4. CONCEPCIÓN hose are to be worn for 30 days or until physician discontinues. 5. Continue pain control per as needed orders. 6. Continue with incentive spirometry and splinting/heart hugger until otherwise directed by the physician. 7. Routine right neck incision care, no ointments, lotions or powders on the incisions. 8. Please notify surgeon/nurse practitioner for temperature greater than 101F or purulent drainage from incisions 9. Trapeze for over the bed. Plan - Discharge Summary Discharge Rx Participant: Yes New Discharge Prescriptions: New Bisacodyl [Dulcolax] 10 mg RECTAL DAILY PRN supp PRN Reason: Constipation Dabigatran [Pradaxa] 75 mg PO BID cap Furosemide [Lasix] 40 mg PO DAILY tab hydrALAZINE HCL [Apresoline] 25 mg PO TID tab HYDROcodone/APAP 10-325MG [[place] 10-325] 1 each PO Q6H PRN #90 tab PRN Reason: Pain Insulin Aspart [NovoLOG (formulary)] 18 unit SQ AC-TID vial Insulin Aspart [NovoLOG (formulary)] 0 unit SQ ACHS vial Insulin Detemir [Levemir] 35 unit SQ BID syr Ipratropium-Albuterol Nebulize [Duoneb 0.5 mg-3 mg/3 ml Soln] 3 ml INHALATION RT-QID ampul.neb Ipratropium-Albuterol Nebulize [Duoneb 0.5 mg-3 mg/3 ml Soln] 3 ml INHALATION RT-Q2H PRN ampul.neb PRN Reason: Shortness Of Breath Or Wheezing Pantoprazole [Protonix] 40 mg PO AC-BRKFST tablet.dr Bernal-Docusate Sodium [Senokot-S] 1 each PO BID tab Continue Colchicine [Colcrys] 0.6 mg PO BID PRN PRN Reason: GOUT Acetaminophen Tab [Tylenol] 650 mg PO Q4H PRN PRN Reason: Pain Tamsulosin HCl [Flomax] 0.4 mg PO DAILY@1200 Pregabalin [Lyrica] 150 mg PO DAILY@1200,2330 Allopurinol [Zyloprim] 300 mg PO DAILY@1200 Carvedilol [Coreg] 12.5 mg PO DAILY@1200,2330 Aspirin [Adult Low Dose Aspirin EC] 81 mg PO DAILY@1200 Discontinued Meclizine [Antivert] 25 mg PO TID PRN PRN Reason: Vertigo Ibuprofen [Motrin] 800 mg PO TID PRN PRN Reason: Pain Zolpidem [Ambien] 10 mg PO HS Pravastatin Sodium [Pravachol] 40 mg PO HS Lisinopril [Zestril] 2.5 mg PO HS Propafenone HCl [Rythmol Sr] 325 mg PO DAILY@1200,2330 Furosemide [Lasix] 80 mg PO DAILY@1200,1800 metFORMIN HCL 500 mg PO DAILY@1200,2330 INSULIN LISPRO (For Pump) [humaLOG (For Pump)] 0.01 units SQ-PUMP CONTINUOUS Dabigatran [Pradaxa] 150 mg PO DAILY@1200,2330 Discharge Medication List Acetaminophen Tab [Tylenol] 650 mg PO Q4H PRN 03/04/17 [History] Allopurinol [Zyloprim] 300 mg PO DAILY@1200 03/04/17 [History] Carvedilol [Coreg] 12.5 mg PO DAILY@1200,2330 03/04/17 [History] Colchicine [Colcrys] 0.6 mg PO BID PRN 03/04/17 [History] Pregabalin [Lyrica] 150 mg PO DAILY@1200,2330 03/04/17 [History] Tamsulosin HCl [Flomax] 0.4 mg PO DAILY@1200 03/04/17 [History] Aspirin [Adult Low Dose Aspirin EC] 81 mg PO DAILY@1200 04/27/17 [History] Bisacodyl [Dulcolax] 10 mg RECTAL DAILY PRN supp 05/23/17 [Rx] Dabigatran [Pradaxa] 75 mg PO BID cap 05/23/17 [Rx] Furosemide [Lasix] 40 mg PO DAILY tab 05/23/17 [Rx] HYDROcodone/APAP 10-325MG [[place] 10-325] 1 each PO Q6H PRN #90 tab 05/23/17 [Rx] Insulin Aspart [NovoLOG (formulary)] 0 unit SQ ACHS vial 05/23/17 [Rx] Insulin Aspart [NovoLOG (formulary)] 18 unit SQ AC-TID vial 05/23/17 [Rx] Insulin Detemir [Levemir] 35 unit SQ BID syr 05/23/17 [Rx] Ipratropium-Albuterol Nebulize [Duoneb 0.5 mg-3 mg/3 ml Soln] 3 ml INHALATION RT -Q2H PRN ampul.neb 05/23/17 [Rx] Ipratropium-Albuterol Nebulize [Duoneb 0.5 mg-3 mg/3 ml Soln] 3 ml INHALATION RT -QID ampul.neb 05/23/17 [Rx] Pantoprazole [Protonix] 40 mg PO AC-BRKFST tablet. 05/23/17 [Rx] Sennosides-Docusate Sodium [Senokot-S] 1 each PO BID tab 05/23/17 [Rx] hydrALAZINE HCL [Apresoline] 25 mg PO TID tab 05/23/17 [Rx] Patient Instructions/Handouts: Carotid Endarterectomy (DC), Carotid Artery Disease (DC), Ischemic Stroke (DC)
--- NOTE | 2017-05-23 10:49 | P.GSCN ---
History of Present Illness Consult date: 05/23/17 Reason for Consult: Urinary Retention Requesting physician: Marcio Garcia History of present illness: The patient is a 76-year-old male with known BPH, for which he took tamsulosin prior to admission. He states that he was able to void, but felt that he emptied his bladder incompletely. He underwent a right carotid endarterectomy late last month. Since that time, during this hospitalization, he has sustained an DC and subsequently a right-sided stroke resulting in left-sided weakness. He has cardiomyopathy, with an ejection fraction of approximately 20% . Several days ago, he was found to be in urinary retention (700 cc) and a Boothe catheter was placed. The catheter remains in place, and he is being transferred to an inpatient rehabilitation center today. Review of Systems - Constitutional Reports weakness - Genitourinary Reports urinary hesitancy Past Medical History Past Medical History: Atrial Fibrillation, Coronary Artery Disease (CAD), Diabetes Mellitus, GERD/Reflux, Hyperlipidemia, Hypertension, Osteoarthritis (OA ), Sleep Apnea/CPAP/BIPAP Additional Past Medical History / Comment(s): pericardial effusion, gout, blockage [place] carotid arteries, neuropathy, diverticulitis, insulin pump, uses a cane- wheelchair for distance. edema [place] feet History of Any Multi-Drug Resistant Organisms: None Reported Past Surgical History: Cardiac Ablation, Heart Catheterization, Orthopedic Surgery Additional Past Surgical History / Comment(s): carpal tunnel rt wrist, rt knee replacement, [place] hip replacement, drainage for pericaridal effusion, cardioversion, arthroscopy [place] knees Past Anesthesia/Blood Transfusion Reactions: Motion Sickness Past Psychological History: No Psychological Hx Reported Smoking Status: Never smoker Past Alcohol Use History: None Reported Past Drug Use History: None Reported - Past Family History Mother Family Medical History: No Reported History Medications and Allergies Home Medications Medication Instructions Recorded Confirmed Type Acetaminophen Tab [Tylenol] 650 mg PO Q4H PRN 03/04/17 05/06/17 History Allopurinol [Zyloprim] 300 mg PO DAILY@1200 03/04/17 05/06/17 History Carvedilol [Coreg] 12.5 mg PO DAILY@1200,2330 03/04/17 05/06/17 History Colchicine [Colcrys] 0.6 mg PO BID PRN 03/04/17 05/06/17 History Pregabalin [Lyrica] 150 mg PO DAILY@1200,2330 03/04/17 05/06/17 History Tamsulosin HCl [Flomax] 0.4 mg PO DAILY@1200 03/04/17 05/06/17 History Aspirin [Adult Low Dose Aspirin EC] 81 mg PO DAILY@1200 04/27/17 05/06/17 History Bisacodyl [Dulcolax] 10 mg RECTAL DAILY PRN supp 05/23/17 Rx Dabigatran [Pradaxa] 75 mg PO BID cap 05/23/17 Rx Furosemide [Lasix] 40 mg PO DAILY tab 05/23/17 Rx HYDROcodone/APAP 10-325MG [[place] 1 each PO Q6H PRN #90 tab 05/23/17 Rx 10-325] Insulin Aspart [NovoLOG 0 unit SQ ACHS vial 05/23/17 Rx (formulary)] Insulin Aspart [NovoLOG 18 unit SQ AC-TID vial 05/23/17 Rx (formulary)] Insulin Detemir [Levemir] 35 unit SQ BID syr 05/23/17 Rx Ipratropium-Albuterol Nebulize 3 ml INHALATION RT-Q2H PRN 05/23/17 Rx [Duoneb 0.5 mg-3 mg/3 ml Soln] ampul.neb Ipratropium-Albuterol Nebulize 3 ml INHALATION RT-QID ampul.neb 05/23/17 Rx [Duoneb 0.5 mg-3 mg/3 ml Soln] Pantoprazole [Protonix] 40 mg PO AC-BRKFST tablet. 05/23/17 Rx Pravastatin Sodium [Pravachol] 40 mg PO HS #30 tab 05/23/17 Rx Sennosides-Docusate Sodium 1 each PO BID tab 05/23/17 Rx [Senokot-S] hydrALAZINE HCL [Apresoline] 25 mg PO TID tab 05/23/17 Rx Allergies Allergy/AdvReac Type Severity Reaction Status Date / Time No Known Allergies Allergy Verified 05/06/17 21:02 Surgical - Exam Vital Signs Temp Pulse Resp BP Pulse Ox 97.5 F L 56 L 18 158/66 92 L 05/06/17 13:37 05/06/17 13:37 05/06/17 13:37 05/06/17 13:37 05/06/17 13:37 - General well developed, well nourished, no distress - Respiratory normal respiratory effort - Psychiatric oriented to time, oriented to person, oriented to place, speech is normal, memory intact Results - Labs 05/22/17 06:15 05/22/17 06:15 Abnormal Lab Results - Last 24 Hours (Table) 05/22/17 05/22/17 05/22/17 Range/Units 12:02 16:57 20:14 POC Glucose (mg/dL) 215 H 162 H 195 H (75-99) mg/dL 05/23/17 05/23/17 Range/Units 02:22 06:12 POC Glucose (mg/dL) 154 H 161 H (75-99) mg/dL Assessment and Plan (1) Retention of urine Current Visit: Yes Status: Acute Code(s): R33.9 - RETENTION OF URINE, UNSPECIFIED SNOMED Code(s): 143866560 Plan: The patient may be transferred to the rehab center with the Boothe catheter. He should continue to receive Flomax. He may be given a voiding trial as his strength returns. Postvoid residuals should be checked to assess bladder emptying. I explained to the patient and his that the bladder in some cases becomes atonic following a stroke, and that this can persist for 60 days. It is thus unclear at this time whether the retention is due to BPH, bladder atonicity, or a combination of both. Time with Patient: Less than 30
[2017-05-23 11:21] LABS: Glucose,Whole Blood 158 mg/dL (75-99)
--- NOTE | 2017-05-23 16:39 | PN ---
PROGRESS NOTE Patient is seen for followup for acute kidney injury. His renal function has significantly improved. Patient is actually going home today. EXAMINATION: Blood pressure is 127/65, heart rate 65 per minute. He is afebrile. Examination of the heart: S1, S2. Examination lungs: Bilateral breath sounds are heard. Abdomen is soft, nontender, obese. Examination lower extremities shows no evidence of edema. Chronic skin changes are noted. LAB: Show serum creatinine 1.25, sodium 144, potassium 4.2 from 05/22/2017. ASSESSMENT: 1. Acute kidney injury, acute tubular necrosis secondary to hypotension hypoperfusion, nonoliguric and significantly improved. Creatinine had peaked at 3.7 mg/dL. 2. Chronic kidney disease, NKF stage III, with previous creatinine at about 1.2 mg/dL secondary to nephrosclerosis. 3. Status post vent dependent respiratory failure. 4. Status post right carotid endarterectomy. 5. Severe volume overload, currently improved. 6. Cardiomyopathy, ejection fraction about 20%. 7. Status post acute myocardial infarction. PLAN: Patient is stable for discharge from Nephrology standpoint. Okay to maintain patient on Pradaxa. Monitor labs as outpatient. Continue with Flomax. MMODL / IJN: [id number] /
== END 2017-05-23 11:46 | DRG 37 ==
LOC: 2ORMAIN 11:59 → 6ICU 20:47 → 6SEL 05-17 15:40
PROVIDERS: ADMIT Surgery; ATTEND Surgery
PROC: 03UK0JZ Supplement Right Internal Carotid Artery with Synthetic Substitute, Open Approach (ICD-10-PCS; principal; 2017-05-06 14:00)
PROC: 03CK0ZZ Extirpation of Matter from Right Internal Carotid Artery, Open Approach (ICD-10-PCS; principal; 2017-05-06 14:00)
PROC: 4A133J1 Monitoring of Arterial Pulse, Peripheral, Percutaneous Approach (ICD-10-PCS; 2017-05-09)
PROC: 04HY32Z Insertion of Monitoring Device into Lower Artery, Percutaneous Approach (ICD-10-PCS; 2017-05-09)
PROC: 4A133B1 Monitoring of Arterial Pressure, Peripheral, Percutaneous Approach (ICD-10-PCS; 2017-05-09)
PROC: 04HY32Z Insertion of Monitoring Device into Lower Artery, Percutaneous Approach (ICD-10-PCS; 2017-05-09)
PROC: 4A133B1 Monitoring of Arterial Pressure, Peripheral, Percutaneous Approach (ICD-10-PCS; 2017-05-09)
PROC: 4A133J1 Monitoring of Arterial Pulse, Peripheral, Percutaneous Approach (ICD-10-PCS; 2017-05-09)
PROC: 0BH18EZ Insertion of Endotracheal Airway into Trachea, Via Natural or Artificial Opening Endoscopic (ICD-10-PCS; 2017-05-09)
PROC: 5A1945Z Respiratory Ventilation, 24-96 Consecutive Hours (ICD-10-PCS; 2017-05-09)
DX: I65.23 Occlusion and stenosis of bilateral carotid arteries (principal); I21.4 Non-ST elevation (NSTEMI) myocardial infarction; N17.0 Acute kidney failure with tubular necrosis; J95.821 Acute postprocedural respiratory failure; R57.9 Shock, unspecified; G93.1 Anoxic brain damage, not elsewhere classified; I50.23 Acute on chronic systolic (congestive) heart failure; E87.4 Mixed disorder of acid-base balance; R13.10 Dysphagia, unspecified; I46.9 Cardiac arrest, cause unspecified; E87.0 Hyperosmolality and hypernatremia; E87.1 Hypo-osmolality and hyponatremia; I13.0 Hypertensive heart and chronic kidney disease with heart failure and stage 1 through stage 4 chronic kidney disease, or unspecified chronic kidney disease; I42.9 Cardiomyopathy, unspecified; G81.94 Hemiplegia, unspecified affecting left nondominant side; I97.821 Postprocedural cerebrovascular infarction following other surgery; G62.9 Polyneuropathy, unspecified; I48.0 Paroxysmal atrial fibrillation; E66.01 Morbid (severe) obesity due to excess calories; I27.21 Secondary pulmonary arterial hypertension; E11.22 Type 2 diabetes mellitus with diabetic chronic kidney disease; E11.69 Type 2 diabetes mellitus with other specified complication; E78.5 Hyperlipidemia, unspecified; E86.9 Volume depletion, unspecified; E87.6 Hypokalemia; G47.33 Obstructive sleep apnea (adult) (pediatric); I25.10 Atherosclerotic heart disease of native coronary artery without angina pectoris; I49.3 Ventricular premature depolarization; J32.2 Chronic ethmoidal sinusitis; K21.9 Gastro-esophageal reflux disease without esophagitis; M10.9 Gout, unspecified; M19.90 Unspecified osteoarthritis, unspecified site; N18.3 Chronic kidney disease, stage 3 (moderate); N40.1 Benign prostatic hyperplasia with lower urinary tract symptoms; R31.0 Gross hematuria; R33.8 Other retention of urine; S10.93XA Contusion of unspecified part of neck, initial encounter; T50.2X5A Adverse effect of carbonic-anhydrase inhibitors, benzothiadiazides and other diuretics, initial encounter; Z96.643 Presence of artificial hip joint, bilateral; Z66 Do not resuscitate; Z96.651 Presence of right artificial knee joint; Z79.01 Long term (current) use of anticoagulants; Z79.4 Long term (current) use of insulin; Z79.82 Long term (current) use of aspirin; Z79.899 Other long term (current) drug therapy
CPT/HCPCS: 36415; 36600; 70450; 71045; 74230; 80048; 80053; 81001; 82553; 82805; 83036; 83540; 83550; 83605; 83735; 84100; 84132; 84484; 84550; 85025; 85027; 85379; 85384; 85610; 85730; 86850; 86900; 86901; 87040; 87070; 87086; 87205; 88304; 88311; 93306; 94002; 94003; 94640; 94660; 94760; 95816

== ENCOUNTER → 2017-08-05 | Outpatient (CLI) | payer MEDICARE, BC ==
[2017-08-05 14:50] LABS: HGB 10.4 gm/dL (13.0-17.5); Hypochromasia Slight; MCH 31.6 pg (25.0-35.0); MCHC 31.7 g/dL (31.0-37.0); MCV 99.9 fL (80.0-100.0); Macrocytosis Slight; Platelet Count 199 k/uL (150-450); RDW 15.8 % (11.5-15.5); WBC 8.6 k/uL (3.8-10.6)
[2017-08-05 15:20] LABS: Potassium 5.2 mmol/L (3.5-5.1)
== END | disposition home or self-care (01) ==
LOC: LABPAT 13:28
PROVIDERS: ATTEND Internal Medicine Cardiovascular Disease
DX: Z01.812 Encounter for preprocedural laboratory examination (principal); I65.21 Occlusion and stenosis of right carotid artery; I25.10 Atherosclerotic heart disease of native coronary artery without angina pectoris
CPT/HCPCS: 36415; 80051; 82565; 84520; 85027

== ENCOUNTER → 2017-08-05 | Outpatient (CLI) | payer MEDICARE, BC | END | disposition home or self-care (01) | LOC: LABWHC1 13:31 | PROVIDERS: ATTEND Urology | DX: N40.1 Benign prostatic hyperplasia with lower urinary tract symptoms (principal) | CPT/HCPCS: 36415; 84153 ==

== ENCOUNTER 2017-08-12 05:55 | Day surgery (SDC) | payer MEDICARE, BC ==
[2017-08-06 10:40] VITALS: BMI 40.0
[~2017-08-12 05:55] MED LIST changes: +ALPRAZolam 0.25 MG TAB PO PRN; +ALPRAZolam 0.5 MG TAB PO PRN; +ASPIRIN 325 MG TAB PO STA; +ATORVASTATIN 80 MG TAB PO STA; -DEXAMETHASONE SOD PHOSPHATE 10 MG/ML 1 ML VIAL IV ONE; -HYDROmorphone 0.5 MG/0.5 ML SYRINGE IVP PRN; -LACTATED RINGERS 1,000 ML IV SCH; +NITROGLYCERIN SL TABS 0.4 MG TAB SUBLINGUAL PRN; -ONDANSETRON 4 MG/2 ML VIAL IVP ONE; +SODIUM CHLORIDE 0.9% 1,000 ML in EMPTY BAG 1 BAG IV ONE
[2017-08-12 06:26] LABS: Glucose,Whole Blood 98 mg/dL (75-99)
[2017-08-12 06:45] LABS: Calcium 9.2 mg/dL (8.4-10.2)
[2017-08-12 06:49] LABS: Potassium 5.1 mmol/L (3.5-5.1)
[2017-08-12] MEDS ORDERED: LIDOCAINE 2% INJ 20 MG/ML (20 ML MDV) ONE ×2 (07:14→07:50)
[2017-08-12] MEDS ORDERED: VERAPAMIL 2.5 MG/ML 2 ML AMP ONE (07:15)
[2017-08-12] MEDS ORDERED: fentaNYL (PF) 50 MCG/ML 2 ML AMP ONE (07:23)
[2017-08-12] MEDS ORDERED: MIDAZOLAM 2 MG/2 ML VIAL ONE (07:23)
[2017-08-12] MEDS ORDERED: MIDAZOLAM 2 MG/2 ML VIAL IVP ONE ×2 (07:38)
[2017-08-12] MEDS ORDERED: fentaNYL (PF) 50 MCG/ML 2 ML AMP IVP ONE (07:39)
[2017-08-12] MEDS ORDERED: LIDOCAINE 2% INJ 20 MG/ML SQ ONE ×2 (07:42→07:54)
[2017-08-12] MEDS ORDERED: IOPAMIDOL-370 125ML BTL INJ ONE (08:30)
[2017-08-12] MEDS ORDERED: RX INFO: IV CONTRAST WAS GIVEN 1 EACH MISC MISCELLANE PRN (08:47)
--- NOTE | 2017-08-12 09:00 | P.PCN ---
Date of Procedure: 08/12/17 Preoperative Diagnosis: Stable angina. Positive stress test with history of cardiac arrest following carotid endarterectomy. Postoperative Diagnosis: Multivessel disease Procedure(s) Performed: Left heart catheterization with selective coronary arteriography. No left ventriculography. Description of Procedure: HISTORY: This is a 77-year-old gentleman with history of of hypertension, hypercholesterolemia and also diabetes mellitus who had carotid endarterectomy about 3 months ago following which he had a cardiac arrest. At the time patient and per cardiomyopathy with an ejection fraction 35% and also positive troponins. Patient had a long recovery. Appears that his LV function is improved to about 50%. Patient has been having chest pain suggestive of possible angina. He had a nuclear stress test showed ischemia in the inferior and lateral wall. Patient is advised to have a cardiac catheterization for definitive diagnosis CONSENT:I have discussed the risks, benefits and alternative therapies for the above-mentioned procedure and for both sedation/analgesia as well as necessary blood product administration, if indicated, as they pertain to this patient. The patient has indicated understanding and acceptance of the risks and procedures discussed. PROCEDURE: Patient was brought to the lab in a fasting state. Patient was given some IV sedation. Patient was advised to have a cardiac catheterization from the right radial approach. Patient however wanted to have only femoral approach because he uses the walker for walking. Attempts were made to enter the left femoral vein after infiltrating the skin with lidocaine. However the artery could not be entered. The procedure was done from the right side.The right groin is infiltrated with lidocaine and right femoral artery was entered using Seldinger technique. A 6-Montserratian catheter was left in place and selective coronary arteriography was performed. Patient tolerated the procedure well. Femoral artery was calcified. Angio-Seal was applied. Manual compression was applied for hemostasis.. No immediate complications were noted and patient was transferred to [facility] in a stable condition Conscious Sedation: Versed 1mg Fentanyl 25 g Duration 53minutes HEMODYNAMICS: The aortic pressure was about 140/80. There was no gradient across the aortic valve. Left ankle end-diastolic pressure is about 16. SELECTIVE CORONARY ARTERIOGRAPHY: LEFT MAIN: Short and calcified. Eccentric ostial lesion cannot be excluded. THE LEFT ANTERIOR DESCENDING CORONARY ARTERY: This is a moderate caliber vessel with a diffuse disease and calcification. There is a long area of stenosis in the proximal LAD of about 40-50% with a focal 95% stenosis after septal branch. THE LEFT CIRCUMFLEX AND IS CORONARY ARTERY: This is a good caliber vessel, tortuous with about 85% eccentric lesion before the OM branch. The OM branch has mild diffuse disease which is a good caliber vessel. THE RIGHT CORONARY ARTERY: This is a good caliber vessel with the concentric 70% lesion proximally another 60-70% lesion Distally. 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 PLAN: Revascularization. Films were reviewed with both Dr. IVÁN Koch and also Dr. King. Patient is not ideal candidate for either procedure. If patient is felt to be high risk candidate for surgery, Dr. IVÁN Koch may attempt to stent all 3 vessels in a staged fashion. PROGNOSIS: Guarded
[2017-08-12] MEDS ORDERED: LABETALOL 5 MG/ML VIAL MDV IVP STA (09:02)
[2017-08-12] MEDS ORDERED: LABETALOL 5 MG/ML VIAL MDV ONE (09:04)
[2017-08-12] MEDS ORDERED: COLCHICINE 0.6 MG EACH PO PRN (09:46)
[2017-08-12] MEDS ORDERED: MECLIZINE 25 MG TAB PO PRN (09:46)
[2017-08-12] MEDS ORDERED: NON-FORMULARY DRUG (Acetaminophen [Tylenol Arthritis] 1,300 MG) PO PRN (09:46)
[2017-08-12] MEDS ORDERED: NITROGLYCERIN SL TABS 0.4 MG TAB SUBLINGUAL PRN (09:46)
[2017-08-12] MEDS: SODIUM CHLORIDE 0.9% 1,000 ML IV SCH ×2 (09:52→23:14)
[2017-08-12] MEDS: PREGABALIN 75 MG CAP PO SCH ×2 (10:49→20:26)
[2017-08-12] MEDS: ALLOPURINOL 300 MG TAB PO SCH (10:49)
[2017-08-12] MEDS: ISOSORBIDE MONONITRATE ER 30 MG TAB.ER.24H PO SCH (10:49)
[2017-08-12] MEDS: FUROSEMIDE 40 MG TAB PO SCH (10:49)
[2017-08-12] MEDS: CARVEDILOL 12.5 MG TAB PO SCH ×2 (10:49→20:26)
--- NOTE | 2017-08-12 10:49 | P.GSCN ---
<Piper Skelton - Last Filed: 08/12/17 10:20> History of Present Illness Consult date: 08/12/17 Reason for Consult: Severe triple vessel disease, treatment recommendations. Requesting physician: Costa Topete History of present illness: This is 77-year-old gentleman pulse with Dr. Mckenzie in an outpatient basis. He is a previous medical history of hypertension, hypercholesterolemia, diabetes, morbid obesity, obstructive sleep apnea with home CPAP use, atrial fibrillation with ablation completed in 2010 and cardioversion in 2013, chronic kidney disease stage III, and carotid artery disease with right carotid endarterectomy in April 2017 with subsequent all cardiac arrest and right subacute lacunar infarct with residual left foot drop. He has been rehabbing his since his previous hospitalization and currently walks with a walker. He has been followed by Dr. Topete from [facility] with complaints of vague chest pain and shortness of breath. A nuclear stress test was completed demonstrated severe ischemia in the lateral and inferior wall. He was recommended to have a heart catheterization which was completed this morning. Catheterization demonstrated multiple focal lesions with diffuse disease, left main eccentric ostial lesion, proximal RCA 70% stenosis, distal RCA 70% stenosis , circumflex with 85% stenosis, and proximal LAD 40-50% stenosis with a 90% stenotic lesion after the septal branch. His previous echocardiogram and his vigorous demonstrated severely impaired systolic function with ejection fraction less than 20%. This has improved to approximately 50% per a recent echo done at [facility] which is not immediately available to us. Dr. King from cardiothoracic surgery was consulted regarding surgical revascularization options versus stenting by Dr. Koch. Review of Systems 14 point review of systems was completed and was negative except as noted. - Cardiovascular Reports as per HPI, Reports chest pain, Reports dyspnea on exertion, Reports leg edema - Respiratory Reports sleep apnea - Musculoskeletal Musculoskeleta Comment(s): left foot drop, uses walker Past Medical History Past Medical History: CVA/TIA, Diabetes Mellitus, Eye Disorder, GERD/Reflux, Hyperlipidemia, Myocardial Infarction (MT), Osteoarthritis (OA), Sleep Apnea/ CPAP/BIPAP, Syncope Additional Past Medical History / Comment(s): see Dr Topete H&P, gout, blockage left carotid artery, neuropathy, diverticulitis, insulin pump, uses a walker- wheelchair for distance. edema shaka legs-(left worse)-wears compression hose, stroke 05/08/17-left side weakness, occ syncopy-none in past month, hx pericardial effusion, macular degeneration left eye-gets injections Last Myocardial Infarction Date:: 05/08/17 History of Any Multi-Drug Resistant Organisms: None Reported Past Surgical History: Cardiac Ablation, Joint Replacement, Orthopedic Surgery, Tonsillectomy Additional Past Surgical History / Comment(s): carpal tunnel rt wrist, rt knee replacement, shaka hip replacement, drainage for pericaridal effusion, cardioversion x 2, arthroscopy shaka knees, rt carotid endarterectomy, trigger finger shaka hands, shaka cataracts Past Anesthesia/Blood Transfusion Reactions: No Reported Reaction Past Psychological History: No Psychological Hx Reported Smoking Status: Never smoker Past Alcohol Use History: None Reported Past Drug Use History: None Reported - Past Family History Mother Family Medical History: No Reported History Daughter(s) Family Medical History: Cancer Medications and Allergies Home Medications Medication Instructions Recorded Confirmed Type Allopurinol [Zyloprim] 300 mg PO DAILY 03/04/17 08/12/17 History Carvedilol [Coreg] 12.5 mg PO BID 03/04/17 08/12/17 History Colchicine [Colcrys] 0.6 mg PO BID PRN 03/04/17 08/06/17 History Pregabalin [Lyrica] 150 mg PO BID 03/04/17 08/12/17 History Tamsulosin HCl [Flomax] 0.4 mg PO BID 03/04/17 08/12/17 History Aspirin [Adult Low Dose Aspirin EC] 81 mg PO DAILY 04/27/17 08/12/17 History Furosemide [Lasix] 40 mg PO DAILY tab 05/23/17 08/12/17 Rx Pravastatin Sodium [Pravachol] 40 mg PO HS #30 tab 05/23/17 08/12/17 Rx Acetaminophen [Tylenol Arthritis] 1,300 mg PO DIRECTED PRN 08/06/17 08/12/17 History Dabigatran [Pradaxa] 150 mg PO BID 08/06/17 08/12/17 History INSULIN LISPRO (For Pump) [humaLOG 0.01 units SQ-PUMP CONTINUOUS 08/06/17 History (For Pump)] Isosorbide Mononitrate [Isosorbide 30 mg PO DAILY 08/06/17 08/12/17 History Mononitrate ER] Lisinopril [Zestril] 5 mg PO DAILY 08/06/17 08/12/17 History Meclizine [Antivert] 25 mg PO DIRECTED PRN 08/06/17 08/06/17 History Nitroglycerin Sl Tabs [Nitrostat] 0.4 mg SUBLINGUAL Q5M PRN 08/06/17 08/06/17 History Sennosides [Senna] 8.6 mg PO DAILY 08/06/17 08/12/17 History Zolpidem [Ambien] 5 - 10 mg PO HS 08/06/17 08/12/17 History traMADol HCL [Ultram] 50 mg PO Q6HR PRN 08/06/17 08/12/17 History Allergies Allergy/AdvReac Type Severity Reaction Status Date / Time No Known Allergies Allergy Verified 08/06/17 10:18 Surgical - Exam Vital Signs Temp Pulse Resp BP Pulse Ox 97.8 F 50 L 18 175/76 100 08/12/17 06:25 08/12/17 06:25 08/12/17 06:25 08/12/17 06:25 08/12/17 06:25 - General well developed, well nourished, no distress, no pain, obese - Eyes PERRL, normal ocular movement - ENT no hearing loss - Neck no masses, no bruits, trachea midline - Respiratory Lungs sounds diminished bilaterally. Respirations even, nonlabored. Currently on room air with oxygen saturation in the low 90s. No chest wall deformities. - Cardiovascular S1, S2 present. Regular rate and rhythm, sinus rhythm on telemetry. Palpable peripheral pulses bilaterally. No edema present. No calf pain or tenderness noted. - Abdomen Abdomen: soft, non tender, bowel sounds - Genitourinary Deferred - Rectum Deferred - Integumentary Skin is warm and dry. Right femoral catheterization site covered with dry intact dressing. Right CEA incision well healed. - Neurologic normal coordination - Psychiatric oriented to time, oriented to person, oriented to place, speech is normal, memory intact Results - Labs 08/12/17 06:18 Abnormal Lab Results - Last 24 Hours (Table) 08/12/17 Range/Units 06:18 BUN 26 H (9-20) mg/dL Creatinine 1.48 H (0.66-1.25) mg/dL Diabetes panel 08/12/17 Range/Units 06:18 Sodium 144 (137-145) mmol/L Potassium 5.1 (3.5-5.1) mmol/L Chloride 105 (98-107) mmol/L Carbon Dioxide 24 (22-30) mmol/L BUN 26 H (9-20) mg/dL Creatinine 1.48 H (0.66-1.25) mg/dL Glucose 95 (74-99) mg/dL Calcium 9.2 (8.4-10.2) mg/dL Calcium panel 08/12/17 Range/Units 06:18 Calcium 9.2 (8.4-10.2) mg/dL Pituitary panel 08/12/17 Range/Units 06:18 Sodium 144 (137-145) mmol/L Potassium 5.1 (3.5-5.1) mmol/L Chloride 105 (98-107) mmol/L Carbon Dioxide 24 (22-30) mmol/L BUN 26 H (9-20) mg/dL Creatinine 1.48 H (0.66-1.25) mg/dL Glucose 95 (74-99) mg/dL Calcium 9.2 (8.4-10.2) mg/dL Adrenal panel 08/12/17 Range/Units 06:18 Sodium 144 (137-145) mmol/L Potassium 5.1 (3.5-5.1) mmol/L Chloride 105 (98-107) mmol/L Carbon Dioxide 24 (22-30) mmol/L BUN 26 H (9-20) mg/dL Creatinine 1.48 H (0.66-1.25) mg/dL Glucose 95 (74-99) mg/dL Calcium 9.2 (8.4-10.2) mg/dL - Imaging Additional studies: Heart catheterization films reviewed with Dr. King and Dr. Topete Assessment and Plan (1) Carotid artery stenosis Current Visit: Yes Status: Chronic Code(s): I65.29 - OCCLUSION AND STENOSIS OF UNSPECIFIED CAROTID ARTERY SNOMED Code(s): 45586129 (2) History of cardiac arrest Current Visit: No Status: Resolved Code(s): Z86.74 - PERSONAL HISTORY OF SUDDEN CARDIAC ARREST SNOMED Code(s): 461246003 (3) Coronary artery disease Current Visit: Yes Status: Chronic Code(s): I25.10 - ATHSCL HEART DISEASE OF [place] CORONARY ARTERY W/O ANG PCTRS SNOMED Code(s): 96061089 (4) History of right-sided carotid endarterectomy Current Visit: No Status: Resolved Code(s): Z98.890 - OTHER SPECIFIED POSTPROCEDURAL STATES SNOMED Code(s): 352719619 (5) Neuropathy Current Visit: Yes Status: Chronic Code(s): G62.9 - POLYNEUROPATHY, UNSPECIFIED SNOMED Code(s): 690626082 (6) Diabetes mellitus type 2 in obese Current Visit: Yes Status: Chronic Code(s): E11.69 - TYPE 2 DIABETES MELLITUS WITH OTHER SPECIFIED COMPLICATION; E66.9 - OBESITY, UNSPECIFIED SNOMED Code(s): 66320351 (7) Gout Current Visit: Yes Status: Chronic Code(s): M10.9 - GOUT, UNSPECIFIED SNOMED Code(s): 52101611 (8) Hyperlipidemia Current Visit: Yes Status: Chronic Code(s): E78.5 - HYPERLIPIDEMIA, UNSPECIFIED SNOMED Code(s): 46551241 (9) Hypertension Current Visit: Yes Status: Chronic Code(s): I10 - ESSENTIAL (PRIMARY) HYPERTENSION SNOMED Code(s): 46858349 (10) Morbid obesity Current Visit: Yes Status: Chronic Code(s): E66.01 - MORBID (SEVERE) OBESITY DUE TO EXCESS CALORIES SNOMED Code(s): 882810274 (11) Obstructive sleep apnea Current Visit: Yes Status: Chronic Code(s): G47.33 - OBSTRUCTIVE SLEEP APNEA (ADULT) (PEDIATRIC) SNOMED Code(s): 17044398 (12) Physical debility Current Visit: Yes Status: Chronic Code(s): R53.81 - OTHER MALAISE SNOMED Code(s): 12609658 Plan: The patient was seen and examined at the bedside with and daughter. Chart/ diagnostics were reviewed. We would recommend continuing aspirin, beta lizette , ASHLEY inhibitor, statin. Upon discussion with patient and family patient states he does not want another surgery. Will discuss with Dr. King. Patient and family were informed that surgery is not emergent, the patient can go home to rehabilitate a little longer and come back for surgery if he so chooses. More recommendations follow. Thank you Dr. Topete for this consult. Please contact us with any questions. Time with Patient: Greater than 30 <Marshall King Wilfred - Last Filed: 08/13/17 07:35> Surgical - Exam Vital Signs Temp Pulse Resp BP Pulse Ox 97.8 F 50 L 18 175/76 100 08/12/17 06:25 08/12/17 06:25 08/12/17 06:25 08/12/17 06:25 08/12/17 06:25 Results - Labs 08/12/17 06:18 Abnormal Lab Results - Last 24 Hours (Table) 08/12/17 08/12/17 08/12/17 Range/Units 11:52 16:58 20:34 POC Glucose (mg/dL) 131 H 130 H 200 H (75-99) mg/dL 08/12/17 08/13/17 Range/Units 23:15 06:34 POC Glucose (mg/dL) 148 H 109 H (75-99) mg/dL Assessment and Plan Assessment: 77 yo m w 3 vessel CAD. Recovering from cardiac arrest s/p carotid endarterectomy recently; just starting to walk around house without assistance. Currently assymptomatic from cardiac standpoint. Films reviewed, case discussed with Dr. Topete. Patient examined and chart reviewed in full. Long discussion with patient and . He understands the risks associated with his CAD and wishes to treat medically at this point while he continues to recover from his recent illness. he will follow up with me in office in 1 month and we will discuss his ongoing recovery and timing of his needed CABG surgery. Agree with documentation by FLUID DESIGNER.
[2017-08-12] MEDS: SENNOSIDES 8.6 MG TAB PO SCH (10:50)
[2017-08-12] MEDS: CEPHALEXIN 500 MG CAP PO SCH ×3 (10:51→20:26)
[2017-08-12] MEDS: traMADol 50 MG TAB PO PRN ×2 (10:51→20:25)
[2017-08-12] MEDS: LISINOPRIL 5 MG TAB PO SCH (10:51)
[2017-08-12 11:59] LABS: Glucose,Whole Blood 131 mg/dL (75-99)
[2017-08-12] MEDS: INSULIN LISPRO (For Pump) 100 UNIT/ML VIAL SQ-PUMP SCH (13:33)
[2017-08-12 17:13] LABS: Glucose,Whole Blood 130 mg/dL (75-99)
[2017-08-12] MEDS: TAMSULOSIN 0.4 MG CAP.ER.24H PO SCH ×2 (17:22→20:25)
[2017-08-12 19:49] VITALS: RESP 16
[2017-08-12 20:42] LABS: Glucose,Whole Blood 200 mg/dL (75-99)
[2017-08-12] MEDS ORDERED: PRAVASTATIN SODIUM 40 MG TAB PO SCH (21:00)
[2017-08-12] MEDS ORDERED: ZOLPIDEM 5 MG TAB PO SCH (21:00)
[2017-08-12 23:28] LABS: Glucose,Whole Blood 148 mg/dL (75-99)
[2017-08-13 06:41] LABS: Glucose,Whole Blood 109 mg/dL (75-99)
[2017-08-13 07:55] VITALS: BP 187/76; PULSE 58; TEMP 98.2
[2017-08-13 08:36] LABS: Calcium 9.1 mg/dL (8.4-10.2); Potassium 4.9 mmol/L (3.5-5.1); Total Bilirubin 0.7 mg/dL (0.2-1.3); Total Protein 6.9 g/dL (6.3-8.2)
[2017-08-13] MEDS ORDERED: ASPIRIN 81 MG PO SCH (09:00)
[2017-08-13] MEDS ORDERED: amLODIPine 5 MG TAB PO SCH (09:00)
[2017-08-13] MEDS: TAMSULOSIN 0.4 MG CAP.ER.24H PO SCH (09:01)
[2017-08-13] MEDS: LISINOPRIL 5 MG TAB PO SCH (09:01)
[2017-08-13] MEDS: ALLOPURINOL 300 MG TAB PO SCH (09:01)
[2017-08-13] MEDS: FUROSEMIDE 40 MG TAB PO SCH (09:01)
[2017-08-13] MEDS: CEPHALEXIN 500 MG CAP PO SCH (09:01)
[2017-08-13] MEDS: CARVEDILOL 12.5 MG TAB PO SCH (09:01)
[2017-08-13] MEDS: SENNOSIDES 8.6 MG TAB PO SCH (09:01)
[2017-08-13] MEDS: ISOSORBIDE MONONITRATE ER 30 MG TAB.ER.24H PO SCH (09:01)
[2017-08-13] MEDS: PREGABALIN 75 MG CAP PO SCH (09:01)
[2017-08-13] MEDS: INSULIN LISPRO (For Pump) 100 UNIT/ML VIAL SQ-PUMP SCH (09:10)
[2017-08-13 17:58] LABS: Hemoglobin A1C 6.7 % (4.0-6.0)
--- NOTE | 2017-08-13 18:08 | P.DS ---
Providers Date of admission: 07/12/2017 Attending physician: Costa Topete Primary care physician: Patrick Mckenzie - Discharge Diagnosis(es) (1) CAD in [place] artery Status: Acute (2) Carotid artery stenosis Status: Chronic (3) Coronary artery disease Status: Chronic (4) Diabetes mellitus type 2 in obese Status: Chronic (5) Hyperlipidemia Status: Chronic (6) Angina pectoris Status: Acute (7) Positive cardiac stress test Status: Acute (8) Chronic renal failure Status: Acute Hospital Course: This is a 77-year-old gentleman with history of carotid disease and a cardiac arrest following carotid surgery. Patient also had a CVA and has been rehabilitating. Patient was recently seen in the office with complaints of chest pain. He had a stress test which showed evidence of ischemia mostly in the lateral wall and inferior segments. Patient is advised to have a cardiac catheterization. Patient had a cardiac catheterization yesterday and was found to have triple-vessel disease including critical lesion in the mid LAD and proximal circumflex and proximal RCA. There is also suspicion lesion in the left main is eccentric. Patient is advised had revascularization. Cardiac surgical consult was obtained. Dr. IVÁN Koch also evaluated the patient. The patient at this point decided to be gone medical therapy and continue with rehabilitation. He'll consider revascularization later on. He was seen by cardiac surgeon and follow up appointment is being made to see him later on. His blood pressure has been running high. I'm going to add Norvasc 5 mg. His groin is soft without any hematoma. His creatinine has come down to 1.2. Patient is otherwise clinically stable. He is being discharged home. Follow- up in the office in one week Plan - Discharge Summary Discharge Rx Participant: No New Discharge Prescriptions: New amLODIPine BESYLATE [Norvasc] 5 mg PO DAILY #90 tablet No Action Colchicine [Colcrys] 0.6 mg PO BID PRN PRN Reason: GOUT Tamsulosin HCl [Flomax] 0.4 mg PO BID Pregabalin [Lyrica] 150 mg PO BID Allopurinol [Zyloprim] 300 mg PO DAILY Carvedilol [Coreg] 12.5 mg PO BID Aspirin [Adult Low Dose Aspirin EC] 81 mg PO DAILY Furosemide [Lasix] 40 mg PO DAILY tab Pravastatin Sodium [Pravachol] 40 mg PO HS #30 tab traMADol HCL [Ultram] 50 mg PO Q6HR PRN PRN Reason: Pain Acetaminophen [Tylenol Arthritis] 1,300 mg PO DIRECTED PRN PRN Reason: Pain Meclizine [Antivert] 25 mg PO DIRECTED PRN PRN Reason: dizziness Zolpidem [Ambien] 5 - 10 mg PO HS Sennosides [Senna] 8.6 mg PO DAILY Nitroglycerin Sl Tabs [Nitrostat] 0.4 mg SUBLINGUAL Q5M PRN PRN Reason: Chest Pain Isosorbide Mononitrate [Isosorbide Mononitrate ER] 30 mg PO DAILY Lisinopril [Zestril] 5 mg PO DAILY Dabigatran [Pradaxa] 150 mg PO BID INSULIN LISPRO (For Pump) [humaLOG (For Pump)] 0.01 units SQ-PUMP CONTINUOUS Discharge Medication List Allopurinol [Zyloprim] 300 mg PO DAILY 03/04/17 [History] Carvedilol [Coreg] 12.5 mg PO BID 03/04/17 [History] Colchicine [Colcrys] 0.6 mg PO BID PRN 03/04/17 [History] Pregabalin [Lyrica] 150 mg PO BID 03/04/17 [History] Tamsulosin HCl [Flomax] 0.4 mg PO BID 03/04/17 [History] Aspirin [Adult Low Dose Aspirin EC] 81 mg PO DAILY 04/27/17 [History] Furosemide [Lasix] 40 mg PO DAILY tab 05/23/17 [Rx] Pravastatin Sodium [Pravachol] 40 mg PO HS #30 tab 05/23/17 [Rx] Acetaminophen [Tylenol Arthritis] 1,300 mg PO DIRECTED PRN 08/06/17 [History] Dabigatran [Pradaxa] 150 mg PO BID 08/06/17 [History] INSULIN LISPRO (For Pump) [humaLOG (For Pump)] 0.01 units SQ-PUMP CONTINUOUS [History] Isosorbide Mononitrate [Isosorbide Mononitrate ER] 30 mg PO DAILY 08/06/17 [ History] Lisinopril [Zestril] 5 mg PO DAILY 08/06/17 [History] Meclizine [Antivert] 25 mg PO DIRECTED PRN 08/06/17 [History] Nitroglycerin Sl Tabs [Nitrostat] 0.4 mg SUBLINGUAL Q5M PRN 08/06/17 [History] Sennosides [Senna] 8.6 mg PO DAILY 08/06/17 [History] Zolpidem [Ambien] 5 - 10 mg PO HS 08/06/17 [History] traMADol HCL [Ultram] 50 mg PO Q6HR PRN 08/06/17 [History] amLODIPine BESYLATE [Norvasc] 5 mg PO DAILY #90 tablet 08/13/17 [Rx] Follow up Appointment(s)/Referral(s): Marshall King MD [STAFF PHYSICIAN] - As Needed (May call our office if/when surgery is an agreeable option.) Costa Topete MD [STAFF PHYSICIAN] - 08/18/17 1:45 pm Patient Instructions/Handouts: *Surgery [facility] - After Heart Catheterization - Etl Programmer Instructions Discharge Disposition: HOME SELF-CARE
== END 2017-08-13 11:18 | disposition home or self-care (01) ==
LOC: CATHCVL 05:55 → 3OBS 08:41 → CATHCVL 08-13 11:18
PROVIDERS: ATTEND Internal Medicine Cardiovascular Disease
DX: I25.118 Atherosclerotic heart disease of native coronary artery with other forms of angina pectoris (principal); I25.84 Coronary atherosclerosis due to calcified coronary lesion; I77.1 Stricture of artery; I42.9 Cardiomyopathy, unspecified; I70.201 Unspecified atherosclerosis of native arteries of extremities, right leg; E78.5 Hyperlipidemia, unspecified; E78.00 Pure hypercholesterolemia, unspecified; E11.22 Type 2 diabetes mellitus with diabetic chronic kidney disease; E11.51 Type 2 diabetes mellitus with diabetic peripheral angiopathy without gangrene; I12.9 Hypertensive chronic kidney disease with stage 1 through stage 4 chronic kidney disease, or unspecified chronic kidney disease; N18.3 Chronic kidney disease, stage 3 (moderate); Z79.4 Long term (current) use of insulin; I48.91 Unspecified atrial fibrillation; I69.898 Other sequelae of other cerebrovascular disease; M21.372 Foot drop, left foot; M10.9 Gout, unspecified; E66.01 Morbid (severe) obesity due to excess calories; Z68.41 Body mass index [BMI] 40.0-44.9, adult; G47.33 Obstructive sleep apnea (adult) (pediatric); Z99.89 Dependence on other enabling machines and devices; I25.2 Old myocardial infarction; Z82.49 Family history of ischemic heart disease and other diseases of the circulatory system; I65.29 Occlusion and stenosis of unspecified carotid artery; Z98.890 Other specified postprocedural states; Z79.02 Long term (current) use of antithrombotics/antiplatelets; Z79.82 Long term (current) use of aspirin; Z79.1 Long term (current) use of non-steroidal anti-inflammatories (NSAID); Z79.899 Other long term (current) drug therapy
CPT/HCPCS: 93458; 80053; 80048; 83036; C1769 ×2; C1894; J2001; J2250; J3010; Q9967

== ENCOUNTER 2017-10-26 16:00 | Emergency (ER) | payer MEDICARE, BC ==
[2017-10-26 16:52] VITALS: TEMP 98.2
--- NOTE | 2017-10-26 20:35 | ED ---
General Adult HPI - General Chief complaint: Recheck/Abnormal Lab/Rx Stated complaint: Swelling Time Seen by Provider: 10/26/17 20:14 Source: patient Mode of arrival: wheelchair Limitations: no limitations - History of Present Illness Initial comments: 77-year-old male patient presents to the emergency department today for complaints of generalized swelling, dyspnea with exertion, and orthopnea. Patient is currently being evaluated for congestive heart failure. Patient has had been having issues with swelling over the last month however the last 2 weeks patient has had a weight gain of 12 pounds. Patient states that today whenever he attempts to perform activity becomes very short of breath, his home pulse oximeter was showing in the 80s with activity. Patient states he is unable to lie down without experiencing extreme chest tightness and shortness of breath. A she is reporting a firm abdomen and swollen scrotum with this. Patient is currently taking 80 mg of Lasix twice daily and 50 mg of spironolactone twice daily and it doesn't seem to be helping. He denies any dizziness with states he has been weak. Patient recently had an echocardiogram in the word processing operator office which showed an ejection fraction of 50% (reported by ). Patient denies any recent rash, fever, chills, abdominal pain, nausea , vomiting, diarrhea, constipation, back pain, numbness, tingling, hematuria, dysuria, urinary urgency, urinary frequency, headache, visual changes, or any other complaints. - Related Data Home Medications Medication Instructions Recorded Confirmed Allopurinol [Zyloprim] 300 mg PO DAILY 03/04/17 10/26/17 Carvedilol [Coreg] 12.5 mg PO BID 03/04/17 10/26/17 Colchicine [Colcrys] 0.6 mg PO BID PRN 03/04/17 10/26/17 Tamsulosin HCl [Flomax] 0.4 mg PO BID 03/04/17 10/26/17 Aspirin [Adult Low Dose Aspirin EC] 81 mg PO DAILY 04/27/17 10/26/17 Acetaminophen [Tylenol Arthritis] 1,300 mg PO Q12H PRN 08/06/17 10/26/17 Dabigatran [Pradaxa] 150 mg PO BID 08/06/17 10/26/17 INSULIN LISPRO (For Pump) [humaLOG 0.01 units SQ-PUMP CONTINUOUS 08/06/17 (For Pump)] Isosorbide Mononitrate [Isosorbide 30 mg PO DAILY 08/06/17 10/26/17 Mononitrate ER] Lisinopril [Zestril] 5 mg PO DAILY 08/06/17 10/26/17 Meclizine [Antivert] 25 mg PO DAILY PRN 08/06/17 10/26/17 Nitroglycerin Sl Tabs [Nitrostat] 0.4 mg SUBLINGUAL Q5M PRN 08/06/17 10/26/17 Zolpidem [Ambien] 5 - 10 mg PO HS 08/06/17 10/26/17 traMADol HCL [Ultram] 50 mg PO Q8HR PRN 08/06/17 10/26/17 Albuterol Inhaler [Ventolin Hfa 2 puff INHALATION RT-Q4H 10/26/17 10/26/17 Inhaler] Amiodarone [Cordarone] 200 mg PO DAILY 10/26/17 10/26/17 Budesonide/Formoterol Fumarate 2 puff INHALATION RT-BID 10/26/17 10/26/17 [Symbicort 160-4.5 Mcg Inhaler] Furosemide [Lasix] 80 mg PO BID 10/26/17 10/26/17 Ibuprofen [Motrin] 600 mg PO Q8HR PRN 10/26/17 10/26/17 Pregabalin [Lyrica] 200 mg PO BID 10/26/17 10/26/17 Spironolactone 50 mg PO BID 10/26/17 10/26/17 Previous Rx's Medication Instructions Recorded Pravastatin Sodium [Pravachol] 40 mg PO HS #30 tab 05/23/17 amLODIPine BESYLATE [Norvasc] 5 mg PO DAILY #90 tablet 08/13/17 Levofloxacin [Levaquin] 750 mg PO DAILY 5 Days #5 tab 10/26/17 Allergies Allergy/AdvReac Type Severity Reaction Status Date / Time No Known Allergies Allergy Verified 10/26/17 20:17 Review of Systems ROS Statement: Those systems with pertinent positive or pertinent negative responses have been documented in the HPI. ROS Other: All systems not noted in ROS Statement are negative. Past Medical History Past Medical History: CVA/TIA, Diabetes Mellitus, Eye Disorder, GERD/Reflux, Hyperlipidemia, Myocardial Infarction ([place]), Osteoarthritis (OA), Sleep Apnea/ CPAP/BIPAP, Syncope Additional Past Medical History / Comment(s): see Dr Topete H&P, gout, blockage left carotid artery, neuropathy, diverticulitis, insulin pump, uses a walker- wheelchair for distance. edema shaka legs-(left worse)-wears compression hose, stroke 05/08/17-left side weakness, occ syncopy-none in past month, hx pericardial effusion, macular degeneration left eye-gets injections Last Myocardial Infarction Date:: 05/08/17 History of Any Multi-Drug Resistant Organisms: None Reported Past Surgical History: Cardiac Ablation, Joint Replacement, Orthopedic Surgery, Tonsillectomy Additional Past Surgical History / Comment(s): carpal tunnel rt wrist, rt knee replacement, shaka hip replacement, drainage for pericaridal effusion, cardioversion x 2, arthroscopy shaka knees, rt carotid endarterectomy, trigger finger shaka hands, shaka cataracts Past Anesthesia/Blood Transfusion Reactions: No Reported Reaction Past Psychological History: No Psychological Hx Reported Smoking Status: Never smoker Past Alcohol Use History: None Reported Past Drug Use History: None Reported - Past Family History Mother Family Medical History: No Reported History Daughter(s) Family Medical History: Cancer General Exam Limitations: no limitations General appearance: alert, in no apparent distress, other (This is a well- developed, obese adult male patient in no acute distress. Vital signs upon presentation are temperature 98.2F, pulse 60, respirations 18, blood pressure 112/54, pulse ox 95% on room air.) Eye exam: Present: normal appearance, PERRL, EOMI. Absent: scleral icterus, conjunctival injection, periorbital swelling ENT exam: Present: normal exam, normal oropharynx, mucous membranes moist Respiratory exam: Present: normal lung sounds bilaterally. Absent: respiratory distress, wheezes, rales, rhonchi, stridor Cardiovascular Exam: Present: regular rate, normal rhythm, normal heart sounds. Absent: systolic murmur, diastolic murmur, rubs, gallop, clicks GI/Abdominal exam: Present: soft, normal bowel sounds. Absent: distended, tenderness, guarding, rebound, rigid Neurological exam: Present: alert, oriented X3, CN II-XII intact Psychiatric exam: Present: normal affect, normal mood Skin exam: Present: warm, dry, intact, normal color. Absent: rash Course Vital Signs 10/26/17 10/26/17 10/26/17 16:48 21:00 21:30 Temperature 98.2 F Pulse Rate 60 55 L 56 L Respiratory 18 Rate Blood Pressure 112/54 110/53 126/56 O2 Sat by Pulse 95 93 L 90 L Oximetry 10/26/17 22:00 Temperature Pulse Rate 54 L Respiratory Rate Blood Pressure 131/60 O2 Sat by Pulse 92 L Oximetry EKG Findings - EKG Comments: EKG Findings:: EKG obtained at 1905 shows sinus bradycardia with a first-degree AV block. Ventricular rate is 58, OR interval 226, QRS duration 84, QTC 450, QTC 441. No evidence of ST elevation or depression. Medical Decision Making - Medical Decision Making 77-year-old male patient with an extensive past medical history including chronic renal failure, cardiac disease, and most recently being evaluated for congestive heart failure presents to the emergency department today for complaints of weight gain, scrotal swelling, and shortness of breath. Physical examination does reveal a large scrotal region. Lungs are clear to auscultation with good air movement. Patient has no nonpitting edema to his lower extremities. Labs reviewed and did reveal an elevated BUN at 59, creatinine 2.60 this is consistent with his usual levels. BNP was 854. Cardiac labs are negative. I did discuss findings and results with the patient. Patient will be given a dose of IV Lasix here in the department. Be given prescription for Levaquin for the pneumonia. He does feel comfortable being discharged at this time as he does have follow-up this week with his primary care physician and his word processing operator. Return parameters were discussed in detail. Patient is discharged in stable condition. He verbalizes understanding and agrees with this plan. - Lab Data Result diagrams: 10/26/17 21:05 10/26/17 21:05 Lab Results 10/26/17 10/26/17 10/26/17 Range/Units 21:05 21:05 21:05 WBC 7.1 (3.8-10.6) k/uL RBC 3.25 L (4.30-5.90) m/uL Hgb 10.0 L (13.0-17.5) gm/dL Hct 32.3 L (39.0-53.0) % MCV 99.4 (80.0-100.0) fL MCH 30.6 (25.0-35.0) pg MCHC 30.8 L (31.0-37.0) g/dL RDW 16.6 H (11.5-15.5) % Plt Count 163 (150-450) k/uL Neutrophils % 75 % Lymphocytes % 14 % Monocytes % 7 % Eosinophils % 3 % Basophils % 0 % Neutrophils # 5.3 (1.3-7.7) k/uL Lymphocytes # 1.0 (1.0-4.8) k/uL Monocytes # 0.5 (0-1.0) k/uL Eosinophils # 0.2 (0-0.7) k/uL Basophils # 0.0 (0-0.2) k/uL Hypochromasia Moderate Anisocytosis Slight Macrocytosis Slight PT (9.0-12.0) sec INR (<1.2) APTT (22.0-30.0) sec Sodium 139 (137-145) mmol/L Potassium 5.2 H (3.5-5.1) mmol/L Chloride 101 (98-107) mmol/L Carbon Dioxide 30 (22-30) mmol/L Anion Gap 8 mmol/L BUN 59 H (9-20) mg/dL Creatinine 2.60 H (0.66-1.25) mg/dL Est GFR (CKD-EPI)AfAm 26 (>60 ml/min/1.73 sqM) Est GFR (CKD-EPI)NonAf 23 (>60 ml/min/1.73 sqM) Glucose 158 H (74-99) mg/dL Plasma Lactic Acid Doug (0.7-2.0) mmol/L Calcium 9.0 (8.4-10.2) mg/dL Total Bilirubin 0.4 (0.2-1.3) mg/dL AST 23 (17-59) U/L ALT 27 (21-72) U/L Alkaline Phosphatase 73 (38-126) U/L Total Creatine Kinase 190 H (55-170) U/L CK-MB (CK-2) 2.7 H* (0.0-2.4) ng/mL CK-MB (CK-2) Rel Index 1.4 Troponin I <0.012 (0.000-0.034) ng/mL NT-Pro-B Natriuret Pep pg/mL Total Protein 7.5 (6.3-8.2) g/dL Albumin 4.1 (3.5-5.0) g/dL 10/26/17 10/26/17 10/26/17 Range/Units 21:05 21:05 21:05 WBC (3.8-10.6) k/uL RBC (4.30-5.90) m/uL Hgb (13.0-17.5) gm/dL Hct (39.0-53.0) % MCV (80.0-100.0) fL MCH (25.0-35.0) pg MCHC (31.0-37.0) g/dL RDW (11.5-15.5) % Plt Count (150-450) k/uL Neutrophils % % Lymphocytes % % Monocytes % % Eosinophils % % Basophils % % Neutrophils # (1.3-7.7) k/uL Lymphocytes # (1.0-4.8) k/uL Monocytes # (0-1.0) k/uL Eosinophils # (0-0.7) k/uL Basophils # (0-0.2) k/uL Hypochromasia Anisocytosis Macrocytosis PT 19.3 H (9.0-12.0) sec INR 2.1 H (<1.2) APTT 62.6 H (22.0-30.0) sec Sodium (137-145) mmol/L Potassium (3.5-5.1) mmol/L Chloride (98-107) mmol/L Carbon Dioxide (22-30) mmol/L Anion Gap mmol/L BUN (9-20) mg/dL Creatinine (0.66-1.25) mg/dL Est GFR (CKD-EPI)AfAm (>60 ml/min/1.73 sqM) Est GFR (CKD-EPI)NonAf (>60 ml/min/1.73 sqM) Glucose (74-99) mg/dL Plasma Lactic Acid Doug 0.7 (0.7-2.0) mmol/L Calcium (8.4-10.2) mg/dL Total Bilirubin (0.2-1.3) mg/dL AST (17-59) U/L ALT (21-72) U/L Alkaline Phosphatase (38-126) U/L Total Creatine Kinase (55-170) U/L CK-MB (CK-2) (0.0-2.4) ng/mL CK-MB (CK-2) Rel Index Troponin I (0.000-0.034) ng/mL NT-Pro-B Natriuret Pep 854 pg/mL Total Protein (6.3-8.2) g/dL Albumin (3.5-5.0) g/dL - Radiology Data Radiology results: report reviewed, image reviewed Two-view x-ray of the chest is obtained. There is some mild infiltrate the right posterior lung base. There is no heart failure. Thoracic aorta is atheromatous. There are chest leads. Thoracic spine is intact. Impression by Dr. Hawkins shows new right lower lobe pneumonia compared to old exam. Disposition Clinical Impression: Right lower lobe pneumonia, Edema Disposition: HOME SELF-CARE Condition: Good Instructions: Pneumonia (ED), Edema (ED) Additional Instructions: Complete antibiotic prescription in full. Follow-up with your primary care physician as well as her word processing operator as you have planned. Return here immediately for any new, worsening, or concerning symptoms. Prescriptions: Levofloxacin [Levaquin] 750 mg PO DAILY 5 Days #5 tab Is patient prescribed a controlled substance at d/c from ED?: No Referrals: Paddy Corona MD [Primary Care Provider] - 1-2 days Costa Topete MD [STAFF PHYSICIAN] - 1-2 days Time of Disposition: 22:38
[2017-10-26 21:24] LABS: Anisocytosis Slight; Basophils % (A) 0 %; Eosinophils # (A) 0.2 k/uL (0-0.7); Eosinophils % (A) 3 %; HCT 32.3 % (39.0-53.0); Hypochromasia Moderate; Lymphocytes % (A) 14 %; MCH 30.6 pg (25.0-35.0); MCHC 30.8 g/dL (31.0-37.0); MCV 99.4 fL (80.0-100.0); Macrocytosis Slight; Mean Platelet Volume 8.4; Monocytes # (A) 0.5 k/uL (0-1.0); Monocytes % (A) 7 %; Neutrophils # (A) 5.3 k/uL (1.3-7.7); Neutrophils % (A) 75 %; Platelet Count 163 k/uL (150-450); RBC 3.25 m/uL (4.30-5.90); RDW 16.6 % (11.5-15.5); WBC 7.1 k/uL (3.8-10.6)
[2017-10-26 21:33] LABS: Albumin 4.1 g/dL (3.5-5.0); INR 2.1 (<1.2); Potassium 5.2 mmol/L (3.5-5.1); Prothrombin Time 19.3 sec (9.0-12.0); Total Bilirubin 0.4 mg/dL (0.2-1.3); Total Protein 7.5 g/dL (6.3-8.2)
--- NOTE | 2017-10-26 21:33 | XR ---
EXAMINATION TYPE: XR chest 2V DATE OF EXAM: 10/26/2017 COMPARISON: 05/17/2017 HISTORY: Chest pain TECHNIQUE: Frontal and lateral views of the chest are obtained. FINDINGS: There is some mild infiltrate at the right posterior lung base. There is no heart failure. Thoracic aorta is atheromatous. There are chest leads. Thoracic spine is intact. IMPRESSION: New right lower lobe pneumonia compared to old exam.
[2017-10-26 21:36] LABS: Creatine Kinase 190 U/L (55-170)
[2017-10-26 21:49] LABS: Troponin I <0.012 ng/mL (0.000-0.034)
[2017-10-26 21:53] LABS: Creatine Kinase MB 2.7 ng/mL (0.0-2.4); Partial Thromboplastin Time 62.6 sec (22.0-30.0)
[2017-10-26] MEDS ORDERED: LEVOFLOXACIN 750 MG TAB PO STA (22:35)
[2017-10-26 22:43] VITALS: BP 131/60; PULSE 54
[2017-10-26] MEDS ORDERED: FUROSEMIDE 10 MG/ML 10 ML VIAL IV STA (22:47)
[2017-10-26 23:39] VITALS: RESP 20
== END 2017-10-26 23:39 | disposition home or self-care (01) ==
LOC: EC 16:00
DX: J18.1 Lobar pneumonia, unspecified organism (principal); N50.89 Other specified disorders of the male genital organs; I13.0 Hypertensive heart and chronic kidney disease with heart failure and stage 1 through stage 4 chronic kidney disease, or unspecified chronic kidney disease; E11.22 Type 2 diabetes mellitus with diabetic chronic kidney disease; N18.9 Chronic kidney disease, unspecified; I25.2 Old myocardial infarction; E11.40 Type 2 diabetes mellitus with diabetic neuropathy, unspecified; G47.30 Sleep apnea, unspecified; M10.9 Gout, unspecified; M19.90 Unspecified osteoarthritis, unspecified site; E66.9 Obesity, unspecified; Z79.4 Long term (current) use of insulin; Z79.51 Long term (current) use of inhaled steroids; Z79.82 Long term (current) use of aspirin; Z79.899 Other long term (current) drug therapy; Z99.89 Dependence on other enabling machines and devices; Z68.42 Body mass index [BMI] 45.0-49.9, adult; Z98.890 Other specified postprocedural states
CPT/HCPCS: 36415; 93005; 83880; 80053; 82550; 82553; 83605; 84484; 85025; 85610; 85730; 87040; 71046; 99285; 96374; J1940

== ENCOUNTER 2017-11-07 22:22 | Inpatient (IN) | payer MEDICARE, BC ==
--- NOTE | 2017-11-07 23:00 | ED ---
Chest Pain HPI - General Chief Complaint: Chest Pain Stated Complaint: Chest Pain Time Seen by Provider: 11/07/17 22:38 Source: patient Mode of arrival: wheelchair Limitations: no limitations - History of Present Illness Initial Comments: Mo is a 77yo M presents to the emergency department today for evaluation of generalized weakness. Patient reports that he was admitted a couple of weeks ago for a CHF exacerbation at that time his medications were changed including increasing his diuretics and he is now on 3 diuretics. Patient reports that he had been doing well since discharge until today when he began feeling very weak. Patient reports that this afternoon he is feeling very weak and when he went to use the restroom his legs gave out from underneath him and he fell onto the toilet. He did not follow floor, did not strike his head he did not have any injuries. He reports that since that time he is just not been feeling well. His thought that if he lay down and relax and uses BiPAP he would feel better however when he down and relaxing reports feeling a chest pressure that he describes as feeling as though a rock was sitting on his chest. He took a nitro at that time and reports the chest pain went away. However he continued to feel very weak and had no relief from using the BiPAP so his decided to bring him to the hospital for further evaluation. Patient denies any headache, shortness of breath, nausea, vomiting, change in bowel or bladder habits. He denies any back pain. He denies any lateralizing weakness and reports generalized weakness throughout his entire body. He denies any recent fevers chills or other illness. Him and his report that he has been completely compliant with all of his home medications. - Related Data Home Medications Medication Instructions Recorded Confirmed Allopurinol [Zyloprim] 300 mg PO DAILY 03/04/17 11/08/17 Carvedilol [Coreg] 12.5 mg PO BID 03/04/17 11/08/17 Colchicine [Colcrys] 0.6 mg PO BID PRN 03/04/17 11/08/17 Tamsulosin HCl [Flomax] 0.4 mg PO BID 03/04/17 11/08/17 Aspirin [Adult Low Dose Aspirin EC] 81 mg PO DAILY 04/27/17 11/08/17 Acetaminophen [Tylenol Arthritis] 1,300 mg PO Q12H PRN 08/06/17 11/08/17 Dabigatran [Pradaxa] 150 mg PO BID 08/06/17 11/08/17 INSULIN LISPRO (For Pump) [humaLOG 0.01 units SQ-PUMP CONTINUOUS 08/06/17 (For Pump)] Isosorbide Mononitrate [Isosorbide 30 mg PO DAILY 08/06/17 11/08/17 Mononitrate ER] Lisinopril [Zestril] 5 mg PO DAILY 08/06/17 11/08/17 Meclizine [Antivert] 25 mg PO DAILY PRN 08/06/17 11/08/17 Nitroglycerin Sl Tabs [Nitrostat] 0.4 mg SUBLINGUAL Q5M PRN 08/06/17 11/08/17 Zolpidem [Ambien] 5 - 10 mg PO HS 08/06/17 11/08/17 traMADol HCL [Ultram] 50 mg PO Q8HR PRN 08/06/17 11/08/17 Albuterol Inhaler [Ventolin Hfa 2 puff INHALATION RT-Q4H 10/26/17 11/08/17 Inhaler] Amiodarone [Cordarone] 200 mg PO DAILY 10/26/17 11/08/17 Budesonide/Formoterol Fumarate 2 puff INHALATION RT-BID 10/26/17 11/08/17 [Symbicort 160-4.5 Mcg Inhaler] Furosemide [Lasix] 80 mg PO BID 10/26/17 11/08/17 Ibuprofen [Motrin] 600 mg PO Q8HR PRN 10/26/17 11/08/17 Pregabalin [Lyrica] 200 mg PO BID 10/26/17 11/08/17 Spironolactone 50 mg PO BID 10/26/17 11/08/17 Metolazone [Zaroxolyn] 2.5 mg PO DAILY 11/08/17 11/08/17 Previous Rx's Medication Instructions Recorded Pravastatin Sodium [Pravachol] 40 mg PO HS #30 tab 05/23/17 amLODIPine BESYLATE [Norvasc] 5 mg PO DAILY #90 tablet 08/13/17 Allergies Allergy/AdvReac Type Severity Reaction Status Date / Time No Known Allergies Allergy Verified 11/07/17 22:28 Review of Systems ROS Statement: Those systems with pertinent positive or pertinent negative responses have been documented in the HPI. ROS Other: All systems not noted in ROS Statement are negative. EKG Findings - EKG Comments: EKG Findings:: EKG obtained at 2240, rate is 50, rhythm is sinus bradycardia, there is a normal axis, there is a prolonged MA at 284, QRS 106, QTC is 423, there are no ST elevations or depressions, no evidence of acute ischemia or infarction. When compared to EKG obtained on October 26, the ST depressions have now resolved. PE EKG obtained at 1:35 AM, didn't sinus bradycardia with first-degree AV block, there is some a sign tremor but no peaked T waves or prolonged QRS. Past Medical History Past Medical History: CVA/TIA, Diabetes Mellitus, Eye Disorder, GERD/Reflux, Hyperlipidemia, Myocardial Infarction ([place]), Osteoarthritis ([place]), Sleep Apnea/ CPAP/BIPAP, Syncope Additional Past Medical History / Comment(s): Gout, blockage left carotid artery , neuropathy, diverticulitis, insulin pump, uses a walker- wheelchair for distance. edema shaka legs-(left worse)-wears compression hose, stroke 05/08/17- left side weakness, hx pericardial effusion, macular degeneration left eye-gets injections Last Myocardial Infarction Date:: 05/08/17 History of Any Multi-Drug Resistant Organisms: None Reported Past Surgical History: Cardiac Ablation, Joint Replacement, Orthopedic Surgery, Tonsillectomy Additional Past Surgical History / Comment(s): carpal tunnel rt wrist, rt knee replacement, shaka hip replacement, drainage for pericaridal effusion, cardioversion x 2, arthroscopy shaka knees, rt carotid endarterectomy, trigger finger shaka hands, shaka cataracts Past Anesthesia/Blood Transfusion Reactions: No Reported Reaction Past Psychological History: No Psychological Hx Reported Smoking Status: Never smoker Past Alcohol Use History: None Reported Past Drug Use History: None Reported - Past Family History Mother Family Medical History: No Reported History Daughter(s) Family Medical History: Cancer General Exam - General Exam Comments Initial Comments: GENERAL: Morbidly obese, chronically ill appearing HENT: Normocephalic, Atraumatic. Neck is soft and supple. EYES: The sclera were anicteric and conjunctiva were pink and moist. Extraocular movements were intact and pupils were equal round and reactive to light. Eyelids were unremarkable. PULMONARY: Unlabored respirations. Good breath sounds bilaterally. No audible rales rhonchi or wheezing was noted. CARDIOVASCULAR: There is a regular rate and rhythm without any murmurs gallops or rubs. ABDOMEN: Soft and nontender with normal bowel sounds. SKIN: Skin is clear with no lesions or rashes and otherwise unremarkable. NEUROLOGIC: Patient is alert and oriented x3. Cranial nerves II through XII are grossly intact. MUSCULOSKELETAL: Bilateral lower extremities in compression hose - no edema noted Left foot in PFO LYMPHATICS: No significant lymphadenopathy is noted PSYCHIATRIC: Normal psychiatric evaluation. Limitations: no limitations Limitations: no limitations Course Vital Signs 11/07/17 11/07/17 11/08/17 22:25 23:03 00:23 Temperature 97 F L 96.8 F L 97.0 F L Pulse Rate 53 L 53 L 51 L Respiratory 18 18 17 Rate Blood Pressure 119/51 141/61 135/70 O2 Sat by Pulse 98 96 96 Oximetry 11/08/17 11/08/17 11/08/17 01:39 01:40 01:56 Temperature Pulse Rate 52 L 50 L 50 L Respiratory 20 Rate Blood Pressure 131/45 O2 Sat by Pulse 98 Oximetry 11/08/17 11/08/17 11/08/17 02:49 04:00 04:16 Temperature Pulse Rate 45 L 50 L 49 L Respiratory 17 Rate Blood Pressure 117/74 O2 Sat by Pulse 94 L Oximetry 11/08/17 11/08/17 11/08/17 04:26 04:37 04:56 Temperature Pulse Rate 47 L 50 L 50 L Respiratory 17 Rate Blood Pressure 130/47 O2 Sat by Pulse 96 Oximetry Chest Pain [facility] The patient was seen and evaluated, history was obtained from the patient and his at bedside Patient with generalized weakness throughout the day today, some chest pain when he laid down to use his BiPAP at bedtime chest pain resolved prior to arrival with single nitro at home Labs and imaging were ordered EKG unchanged from previous Chest x-ray no evidence of acute heart failure Labs a significant abnormalities including hyperkalemia with potassium of 8.1, BUN of greater than 120 and creatinine of 4.3 compared to previous as this is significant worsening of the patient's kidney disease Repeat BMP was ordered Treatment for hyperkalemia was ordered including IV calcium, IV dextrose, IV insulin, continuous albuterol Repeat BMP which was obtained prior to treatment of hyperkalemia confirms hyperkalemia with a potassium of 8.6 Treatment is infusing Lasix and Kayexalate were added Patient care was discussed with Dr. Manrique nephrology who agrees with workup and treatment as ordered, recommends 20mg of albuterol Vision care discussed with Dr. Leblanc who recommends repeat BMP after treatment - if K+ >5.5 admit to ICU otherwise admit to floor Patient received medications - repeat labs with persistent hyperkalemia - 7.5 wtih some hemolysis Repeat insulin and D50 ordered Admission to ICU placed Critical Care Time Critical Care Time: Yes Total Critical Care Time: 60 Critical Care Time: Critical Care Critical care time was exclusive of separately billable procedures and treating other patients and teaching time. Critical care was necessary to treat or prevent imminent or life-threatening deterioration. Critical care was time spent personally by me on the following activities: development of treatment plan with patient or surrogate, discussions with consultants, discussions with primary provider, evaluation of patient's response to treatment, examination of patient, obtaining history from patient or surrogate, ordering and performing treatments and interventions, ordering and review of laboratory studies, ordering and review of radiographic studies, pulse oximetry, re-evaluation of patient's condition and review of old charts. Disposition Clinical Impression: MIGUEL (acute kidney injury), Hyperkalemia Disposition: ADMITTED IP TO THIS [facility] Referrals: Toño Kinney DO [Primary Care Provider] - 1-2 days
[2017-11-07 23:17] LABS: Anisocytosis Slight; Basophils % (A) 0 %; Eosinophils # (A) 0.2 k/uL (0-0.7); Eosinophils % (A) 3 %; HCT 34.2 % (39.0-53.0); HGB 10.5 gm/dL (13.0-17.5); Hypochromasia Slight; Lymphocytes % (A) 13 %; MCH 30.5 pg (25.0-35.0); MCHC 30.6 g/dL (31.0-37.0); MCV 99.8 fL (80.0-100.0); Macrocytosis Slight; Mean Platelet Volume 8.8; Monocytes # (A) 0.5 k/uL (0-1.0); Monocytes % (A) 7 %; Neutrophils # (A) 5.8 k/uL (1.3-7.7); Neutrophils % (A) 76 %; Platelet Count 157 k/uL (150-450); RBC 3.43 m/uL (4.30-5.90); RDW 16.7 % (11.5-15.5); WBC 7.6 k/uL (3.8-10.6)
[2017-11-07 23:25] LABS: INR 2.1 (<1.2); Prothrombin Time 19.1 sec (9.0-12.0)
[2017-11-07 23:40] LABS: Partial Thromboplastin Time 67.4 sec (22.0-30.0)
--- NOTE | 2017-11-07 23:42 | XR ---
EXAMINATION TYPE: XR chest 2V DATE OF EXAM: 11/07/2017 COMPARISON: 10/26/2017 HISTORY: Chest pain TECHNIQUE: Frontal and lateral views of the chest are obtained. FINDINGS: There is mild coarsening of interstitial markings. There is no heart failure. Heart is sli ghtly enlarged. Thoracic aorta is atheromatous. IMPRESSION: Pulmonary fibrotic changes. No heart failure. No change compared to old exam.
[2017-11-07 23:55] LABS: Creatine Kinase 238 U/L (55-170)
[2017-11-08 00:02] LABS: Albumin 4.5 g/dL (3.5-5.0); Calcium 9.4 mg/dL (8.4-10.2); Total Bilirubin 0.5 mg/dL (0.2-1.3)
[2017-11-08 00:09] LABS: Troponin I <0.012 ng/mL (0.000-0.034)
[2017-11-08 00:11] LABS: Potassium 8.1 mmol/L (3.5-5.1)
[2017-11-08] MEDS ORDERED: INSULIN REGULAR 100 UNIT/ML VIAL IV ONE ×6 (00:42→21:57)
[2017-11-08] MEDS ORDERED: DEXTROSE 50%-WATER 50 ML SYRINGE IVP STA ×6 (00:42→21:57)
[2017-11-08] MEDS ORDERED: CALCIUM GLUCONATE 1,000 MG in SODIUM CHLORIDE 0.9% 100 ML IVPB ONE ×2 (00:42→08:35)
[2017-11-08] MEDS ORDERED: SODIUM CHLORIDE 0.9% 1,000 ML IV ONE ×3 (00:43→05:17)
[2017-11-08] MEDS: SODIUM CHLORIDE 0.9% 1,000 ML IV SCH ×2 (01:04→09:09)
[2017-11-08] MEDS ORDERED: ALBUTEROL NEBULIZED 2.5 MG/3 ML INHALATION STA ×2 (01:31→03:51)
[2017-11-08 02:47] LABS: Calcium 9.4 mg/dL (8.4-10.2)
[2017-11-08 02:52] LABS: Potassium 8.6 mmol/L (3.5-5.1)
[2017-11-08] MEDS ORDERED: SODIUM POLYSTYRENE SULFONATE 15 GM/60 ML BOTTLE PO STA ×2 (02:53→16:36)
[2017-11-08] MEDS ORDERED: FUROSEMIDE 10 MG/ML 2 ML VIAL IV ONE (02:53)
[2017-11-08 05:07] LABS: Calcium 8.5 mg/dL (8.4-10.2)
[2017-11-08 05:15] LABS: Potassium 7.5 mmol/L (3.5-5.1)
[2017-11-08 05:16] LABS: Phosphorus 6.7 mg/dL (2.5-4.5)
[2017-11-08] MEDS ORDERED: NALOXONE 0.4 MG/ML 1 ML VIAL IV PRN (05:21)
[2017-11-08 05:37] LABS: Glucose,Whole Blood 142 mg/dL (75-99)
[2017-11-08 07:05] LABS: Anisocytosis Slight; Basophils % (A) 0 %; Eosinophils # (A) 0.2 k/uL (0-0.7); Eosinophils % (A) 3 %; HCT 29.8 % (39.0-53.0); HGB 9.5 gm/dL (13.0-17.5); Hypochromasia Slight; Lymphocytes # (A) 1.2 k/uL (1.0-4.8); Lymphocytes % (A) 18 %; MCH 31.7 pg (25.0-35.0); MCHC 31.8 g/dL (31.0-37.0); Macrocytosis Slight; Mean Platelet Volume 9.2; Monocytes # (A) 0.5 k/uL (0-1.0); Monocytes % (A) 7 %; Neutrophils # (A) 4.8 k/uL (1.3-7.7); Neutrophils % (A) 71 %; Platelet Count 137 k/uL (150-450); RBC 2.98 m/uL (4.30-5.90); RDW 16.7 % (11.5-15.5); WBC 6.7 k/uL (3.8-10.6)
[2017-11-08 07:06] LABS: Appearance,Urine Clear (Clear); Bilirubin,Urine Negative (Negative); Blood,Urine Negative (Negative); Color,Urine Colorless; Glucose,Urine (UA) Negative (Negative); Ketones,Urine Negative (Negative); Leukocyte Esterase,Urine Negative (Negative); Nitrite,Urine Negative (Negative); PH, Urine 7.5 (5.0-8.0); Protein,Urine Negative (Negative); Specific Gravity,Urine 1.008 (1.001-1.035); Urobilinogen,Urine <2.0 mg/dL (<2.0)
[2017-11-08 07:26] LABS: Calcium 8.7 mg/dL (8.4-10.2); Magnesium 2.6 mg/dL (1.6-2.3); Phosphorus 6.5 mg/dL (2.5-4.5)
[2017-11-08 07:52] LABS: Potassium 6.5 mmol/L (3.5-5.1)
[2017-11-08 08:00] LABS: Glucose,Whole Blood 162 mg/dL (75-99)
[2017-11-08] MEDS ORDERED: ALBUTEROL NEB (CONC) 2.5 MG/0.5 ML INHALATION SCH (08:00)
[2017-11-08] MEDS ORDERED: ALBUTEROL NEBULIZED (CONC) 20 MG, SODIUM CHLORIDE 0.9% NEBULIZ 3 ML INHALATION ONE ×2 (08:35)
[2017-11-08] MEDS: ALBUTEROL NEBULIZED 2.5 MG/3 ML INHALATION SCH ×4 (08:53→20:58)
--- NOTE | 2017-11-08 08:59 | P.NPCON ---
History of Present Illness - Reason for Consult acute renal failure, hyperkalemia - History of Present Illness Reason for consultation: Acute kidney injury on chronic kidney disease History of present illness: Patient is a 77-year-old male seen for consultation for acute kidney injury on chronic kidney disease. Patient has chronic kidney disease stage III with baseline creatinine in the range of 1.2-1.4 secondary to nephrosclerosis. Patient was recently admitted for CHF exacerbation and was maintained on Lasix 80 mg twice daily along with metolazone as well as Aldactone 50 mg twice daily. He was also on lisinopril. Or the last few days patient felt weak and the decided to bring him to the hospital. His potassium level was elevated at 8.6 which was medically treated with IV insulin, nebulized albuterol, Kayexalate as well as Lasix. He also received IV calcium gluconate. Patient's previous echocardiogram reveals ejection fraction of less than 20%. Chest x- ray this admission is not suggestive of fluid overload. Patient's currently receiving normal saline at 100 mL an hour. Patient states he voided 600 mL this morning. No vomiting or diarrhea. Oral intake has been fair. Creatinine is up to 4.2 and is down to 3.8 this morning. Denies use of NSAIDs. Denies chest pain or shortness of breath. No hematuria or dysuria. Vital signs are stable. General: The patient appeared well nourished and normally developed. HEENT: Head exam is unremarkable. Neck is without jugular venous distension. LUNGS: Lungs are clear to auscultation and percussion. Breath sounds decreased. HEART: Rate and Rhythm are regular. First and second heart sounds normal. No murmurs, rubs or gallops. ABDOMEN: Abdominal exam reveals normal bowel sounds. Non-tender and non- distended. No evidence of peritonitis. EXTREMITITES: Trace edema. Past Medical History Past Medical History: CVA/TIA, Diabetes Mellitus, Eye Disorder, GERD/Reflux, Hyperlipidemia, Myocardial Infarction ([place]), Osteoarthritis (OA), Sleep Apnea/ CPAP/BIPAP, Syncope Additional Past Medical History / Comment(s): Gout, blockage left carotid artery , neuropathy, diverticulitis, insulin pump, uses a walker- wheelchair for distance. edema shaka legs-(left worse)-wears compression hose, stroke 05/08/17- left side weakness, hx pericardial effusion, macular degeneration left eye-gets injections Last Myocardial Infarction Date:: 05/08/17 History of Any Multi-Drug Resistant Organisms: None Reported Past Surgical History: Cardiac Ablation, Joint Replacement, Orthopedic Surgery, Tonsillectomy Additional Past Surgical History / Comment(s): carpal tunnel rt wrist, rt knee replacement, shaka hip replacement, drainage for pericaridal effusion, cardioversion x 2, arthroscopy shaka knees, rt carotid endarterectomy, trigger finger shaka hands, shaka cataracts Past Anesthesia/Blood Transfusion Reactions: No Reported Reaction Past Psychological History: No Psychological Hx Reported Smoking Status: Never smoker Past Alcohol Use History: None Reported Past Drug Use History: None Reported - Past Family History Mother Family Medical History: No Reported History Daughter(s) Family Medical History: Cancer Medications and Allergies Home Medications Medication Instructions Recorded Confirmed Type Allopurinol [Zyloprim] 300 mg PO DAILY 03/04/17 11/08/17 History Carvedilol [Coreg] 12.5 mg PO BID 03/04/17 11/08/17 History Colchicine [Colcrys] 0.6 mg PO BID PRN 03/04/17 11/08/17 History Tamsulosin HCl [Flomax] 0.4 mg PO BID 03/04/17 11/08/17 History Aspirin [Adult Low Dose Aspirin EC] 81 mg PO DAILY 04/27/17 11/08/17 History Pravastatin Sodium [Pravachol] 40 mg PO HS #30 tab 05/23/17 11/08/17 Rx Acetaminophen [Tylenol Arthritis] 1,300 mg PO Q12H PRN 08/06/17 11/08/17 History Dabigatran [Pradaxa] 150 mg PO BID 08/06/17 11/08/17 History INSULIN LISPRO (For Pump) [humaLOG 0.01 units SQ-PUMP CONTINUOUS 08/06/17 History (For Pump)] Isosorbide Mononitrate [Isosorbide 30 mg PO DAILY 08/06/17 11/08/17 History Mononitrate ER] Lisinopril [Zestril] 5 mg PO DAILY 08/06/17 11/08/17 History Meclizine [Antivert] 25 mg PO DAILY PRN 08/06/17 11/08/17 History Nitroglycerin Sl Tabs [Nitrostat] 0.4 mg SUBLINGUAL Q5M PRN 08/06/17 11/08/17 History Zolpidem [Ambien] 5 - 10 mg PO HS 08/06/17 11/08/17 History traMADol HCL [Ultram] 50 mg PO Q8HR PRN 08/06/17 11/08/17 History amLODIPine BESYLATE [Norvasc] 5 mg PO DAILY #90 tablet 08/13/17 11/08/17 Rx Albuterol Inhaler [Ventolin Hfa 2 puff INHALATION RT-Q4H 10/26/17 11/08/17 History Inhaler] Amiodarone [Cordarone] 200 mg PO DAILY 10/26/17 11/08/17 History Budesonide/Formoterol Fumarate 2 puff INHALATION RT-BID 10/26/17 11/08/17 History [Symbicort 160-4.5 Mcg Inhaler] Furosemide [Lasix] 80 mg PO BID 10/26/17 11/08/17 History Ibuprofen [Motrin] 600 mg PO Q8HR PRN 10/26/17 11/08/17 History Pregabalin [Lyrica] 200 mg PO BID 10/26/17 11/08/17 History Spironolactone 50 mg PO BID 10/26/17 11/08/17 History Metolazone [Zaroxolyn] 2.5 mg PO DAILY 11/08/17 11/08/17 History Allergies Allergy/AdvReac Type Severity Reaction Status Date / Time No Known Allergies Allergy Verified 11/07/17 22:28 Physical Exam Vitals: Vital Signs Temp Pulse Resp BP Pulse Ox 11/08/17 07:00 97.6 F 43 L 17 101/49 100 11/08/17 04:56 50 L 11/08/17 04:37 50 L 11/08/17 04:26 47 L 17 130/47 96 11/08/17 04:16 49 L 11/08/17 04:00 50 L 11/08/17 02:49 45 L 17 117/74 94 L 11/08/17 01:56 50 L 11/08/17 01:40 50 L 20 131/45 98 11/08/17 01:39 52 L 11/08/17 00:23 97.0 F L 51 L 17 135/70 96 11/07/17 23:03 96.8 F L 53 L 18 141/61 96 11/07/17 22:25 97 F L 53 L 18 119/51 98 Intake and Output 11/07/17 11/08/17 11/08/17 22:59 06:59 14:59 Other: Weight 130.635 kg Results - Lab Results Most recent lab results Calcium 8.7 mg/dL (8.4-10.2) 11/08/17 06:00 Phosphorus 6.5 mg/dL (2.5-4.5) H 11/08/17 06:00 Magnesium 2.6 mg/dL (1.6-2.3) H 11/08/17 06:00 11/08/17 06:00 11/08/17 06:00 Assessment and Plan Plan: Assessment: 1. Acute kidney injury mostly prerenal from diuretics. Improving with IV hydration. Creatinine was 4.1 admission and is 3.8 this morning. Rule out urinary retention. Urinalysis is benign. 2. Chronic kidney disease stage III with baseline creatinine in the range of 1.2-1.4 secondary to nephrosclerosis. 3. Hyperkalemia secondary to acute kidney injury and from the use of lisinopril and Aldactone. 4. Systolic CHF with ejection fraction of less than 20% on previous echocardiogram in the chart. 5. Hyperphosphatemia secondary to acute kidney injury. 6. Insulin-dependent diabetes mellitus. Plan: I would decrease the rate of normal saline to 75 mL an hour. 10 units of IV insulin with amp of D50, albuterol 20 mg nebulized now. 1 g of IV calcium gluconate now. Repeat potassium level in 2 hours. Check bladder scan and to insert Boothe catheter if greater than 250 mL present. Strict is and os. Low potassium diet. Check renal ultrasound. Continue to monitor renal function and urine output closely. May need to initiate renal replacement therapy if no improvement in his potassium level. Thank you for the consultation. I will continue to follow the patient with you during his hospital stay.
[2017-11-08] MEDS ORDERED: PANTOPRAZOLE 40 MG TABLET PO SCH (09:30)
--- NOTE | 2017-11-08 11:28 | US ---
EXAMINATION TYPE: US kidneys/renal and bladder DATE OF EXAM: 11/08/2017 COMPARISON: NONE CLINICAL HISTORY: 77-year-old male acute kidney injury. low potassium, ICU pt, diabetic TECHNIQUE: Multiple sonographic images of the kidneys and bladder are obtained. FINDINGS: EXAM MEASUREMENTS: Right Kidney: 11.2 x 6.2 x 6.5cm Left Kidney: 14.2 x 5.8 x 7.8cm Bilateral renal cortical thinning Pharm Spec notes:Limitations due to very bright ICU room with no ability to darken room. Right Kidney: No hydronephrosis. Left Kidney: 4.0cm inferior pole lesion seen, due to brightness within room unable to fully assess cy stic nature versus solid. However, on the patient's 04/29/2016 exam, there is a cyst seen in the lef t lower pole measuring 3.5 cm. Bladder: Limited, not distended IMPRESSION: 1. Technical limitations due to excessive lighting at the bedside. 2. No hydronephrosis seen. Renal cortical thinning suggests underlying chronic medical renal disease. 3. A 4 cm lesion lower pole left kidney could not be adequately evaluated due to the above limitation but a 3.5 cm cyst was present back on 04/29/2016.
[2017-11-08 12:15] LABS: Glucose,Whole Blood 162 mg/dL (75-99)
[2017-11-08] MEDS ORDERED: traMADol 50 MG TAB PO PRN (12:45)
[2017-11-08] MEDS: INSULIN ASPART 100 UNIT/ML 1 ML 10 ML VIAL SQ SCH ×3 (12:47→20:10)
--- NOTE | 2017-11-08 13:34 | P.HPIM ---
History of Present Illness 69-year-old pleasant gentleman came in with compensative generalized weakness lethargy. Patient is found to have renal dysfunction patient's creatinine few months ago was a 1.2 it has gone up about 3.5 with hyper kalemia. Patient does have history of can start failure ejection fraction of around 20% from his previous echo cardiac exam. Although patient did tell me that his ejection fraction normalized on the echocardiac times that were done outside [facility]. Patient is on high-dose of her Lasix 80 mg twice a day along with metolazone and all the acetone along with lisinopril. All of these medications were discontinued. Patient is receiving IV normal saline was evaluated by broaching machine repairer. Chest x-ray did not show any pulmonary edema. Patient does have history of coronary artery disease. Patient is urinating normally. Review of Systems REVIEW OF SYSTEMS: CONSTITUTIONAL: As mentioned in HPI HEENT: No recent visual problems or hearing problems. Denied any sore throat. CARDIOVASCULAR: No chest pain, orthopnea, PND, no palpitations, no syncope. PULMONARY: No shortness of breath, no cough, no hemoptysis. GASTROINTESTINAL: No diarrhea, no nausea, no vomiting, no abdominal pain. Normoactive bowel sounds. NEUROLOGICAL: No headaches, no weakness, no numbness. HEMATOLOGICAL: Denies any bleeding or petechiae. GENITOURINARY: Denies any burning micturition, frequency, or urgency. MUSCULOSKELETAL/RHEUMATOLOGICAL: Denies any joint pain, swelling, or any muscle pain. ENDOCRINE: Denies any polyuria or polydipsia. The rest of the 14-point review of systems is negative. Past Medical History Past Medical History: CVA/TIA, Diabetes Mellitus, Eye Disorder, GERD/Reflux, Hyperlipidemia, Myocardial Infarction ([place]), Osteoarthritis ([place]), Sleep Apnea/ CPAP/BIPAP, Syncope Additional Past Medical History / Comment(s): Gout, blockage left carotid artery , neuropathy, diverticulitis, insulin pump, uses a walker- wheelchair for distance. edema shaka legs-(left worse)-wears compression hose, stroke 05/08/17- left side weakness, hx pericardial effusion, macular degeneration left eye-gets injections Last Myocardial Infarction Date:: 05/08/17 History of Any Multi-Drug Resistant Organisms: None Reported Past Surgical History: Cardiac Ablation, Joint Replacement, Orthopedic Surgery, Tonsillectomy Additional Past Surgical History / Comment(s): carpal tunnel rt wrist, rt knee replacement, shaka hip replacement, drainage for pericaridal effusion, cardioversion x 2, arthroscopy shaka knees, rt carotid endarterectomy, trigger finger shaka hands, shaka cataracts Past Anesthesia/Blood Transfusion Reactions: No Reported Reaction Past Psychological History: No Psychological Hx Reported Smoking Status: Never smoker Past Alcohol Use History: None Reported Past Drug Use History: None Reported - Past Family History Mother Family Medical History: No Reported History Daughter(s) Family Medical History: Cancer Medications and Allergies Home Medications Medication Instructions Recorded Confirmed Type Allopurinol [Zyloprim] 300 mg PO DAILY 03/04/17 11/08/17 History Carvedilol [Coreg] 12.5 mg PO BID 03/04/17 11/08/17 History Colchicine [Colcrys] 0.6 mg PO BID PRN 03/04/17 11/08/17 History Tamsulosin HCl [Flomax] 0.4 mg PO BID 03/04/17 11/08/17 History Aspirin [Adult Low Dose Aspirin EC] 81 mg PO DAILY 04/27/17 11/08/17 History Pravastatin Sodium [Pravachol] 40 mg PO HS #30 tab 05/23/17 11/08/17 Rx Acetaminophen [Tylenol Arthritis] 1,300 mg PO Q12H PRN 08/06/17 11/08/17 History Dabigatran [Pradaxa] 150 mg PO BID 08/06/17 11/08/17 History INSULIN LISPRO (For Pump) [humaLOG 0.01 units SQ-PUMP CONTINUOUS 08/06/17 History (For Pump)] Isosorbide Mononitrate [Isosorbide 30 mg PO DAILY 08/06/17 11/08/17 History Mononitrate ER] Lisinopril [Zestril] 5 mg PO DAILY 08/06/17 11/08/17 History Meclizine [Antivert] 25 mg PO DAILY PRN 08/06/17 11/08/17 History Nitroglycerin Sl Tabs [Nitrostat] 0.4 mg SUBLINGUAL Q5M PRN 08/06/17 11/08/17 History Zolpidem [Ambien] 5 - 10 mg PO HS 08/06/17 11/08/17 History traMADol HCL [Ultram] 50 mg PO Q8HR PRN 08/06/17 11/08/17 History amLODIPine BESYLATE [Norvasc] 5 mg PO DAILY #90 tablet 08/13/17 11/08/17 Rx Albuterol Inhaler [Ventolin Hfa 2 puff INHALATION RT-Q4H 10/26/17 11/08/17 History Inhaler] Amiodarone [Cordarone] 200 mg PO DAILY 10/26/17 11/08/17 History Budesonide/Formoterol Fumarate 2 puff INHALATION RT-BID 10/26/17 11/08/17 History [Symbicort 160-4.5 Mcg Inhaler] Furosemide [Lasix] 80 mg PO BID 10/26/17 11/08/17 History Ibuprofen [Motrin] 600 mg PO Q8HR PRN 10/26/17 11/08/17 History Pregabalin [Lyrica] 200 mg PO BID 10/26/17 11/08/17 History Spironolactone 50 mg PO BID 10/26/17 11/08/17 History Metolazone [Zaroxolyn] 2.5 mg PO DAILY 11/08/17 11/08/17 History Allergies Allergy/AdvReac Type Severity Reaction Status Date / Time No Known Allergies Allergy Verified 11/07/17 22:28 Physical Exam Vitals: Vital Signs Temp Pulse Resp BP Pulse Ox 11/08/17 11:00 48 L 16 111/73 97 11/08/17 10:30 56 L 25 H 91/55 96 11/08/17 10:15 45 L 11 L 91/55 95 11/08/17 10:00 49 L 13 95/49 95 11/08/17 09:45 52 L 20 95/49 92 L 11/08/17 09:30 52 L 30 H 107/51 93 L 11/08/17 09:23 54 L 11/08/17 09:15 45 L 14 107/51 97 11/08/17 09:00 49 L 13 110/51 98 11/08/17 08:53 49 L 11/08/17 08:45 53 L 16 110/51 91 L 11/08/17 08:30 50 L 95 11/08/17 08:15 96 F L 50 L 25 H 110/60 96 11/08/17 07:00 97.6 F 43 L 17 101/49 100 11/08/17 04:56 50 L 11/08/17 04:37 50 L 11/08/17 04:26 47 L 17 130/47 96 11/08/17 04:16 49 L 11/08/17 04:00 50 L 11/08/17 02:49 45 L 17 117/74 94 L 11/08/17 01:56 50 L 11/08/17 01:40 50 L 20 131/45 98 11/08/17 01:39 52 L 11/08/17 00:23 97.0 F L 51 L 17 135/70 96 11/07/17 23:03 96.8 F L 53 L 18 141/61 96 11/07/17 22:25 97 F L 53 L 18 119/51 98 Intake and Output 11/07/17 11/08/17 11/08/17 22:59 06:59 14:59 Intake Total 325 Output Total 1450 Balance -1125 Intake: IV 325 Sodium Chloride 0.9% 1, 325 000 ml @ 75 mls/hr IV . [id number] [facility] Rx#:[id number] Output: Urine 1450 Other: Voiding Method Indwelling Catheter Weight 130.635 kg PHYSICAL EXAMINATION: GENERAL: The patient is alert and oriented x3, not in any acute distress. Morbidly obese HEENT: Pupils are round and equally reacting to light. EOMI. No scleral icterus. No conjunctival pallor. Normocephalic, atraumatic. No pharyngeal erythema. No thyromegaly. CARDIOVASCULAR: S1 and S2 present. No murmurs, rubs, or gallops. PULMONARY: Chest is clear to auscultation, no wheezing or crackles. ABDOMEN: Soft, nontender, nondistended, normoactive bowel sounds. No palpable organomegaly. MUSCULOSKELETAL: No joint swelling or deformity. EXTREMITIES: No cyanosis, clubbing, or pedal edema. NEUROLOGICAL: Gross neurological examination did not reveal any focal deficits. SKIN: No rashes. Results CBC & Chem 7: 11/08/17 06:00 11/08/17 10:42 Labs: Abnormal Lab Results - Last 24 Hours (Table) 11/07/17 11/07/17 11/07/17 Range/Units 22:43 22:43 22:43 RBC 3.43 L (4.30-5.90) m/uL Hgb 10.5 L (13.0-17.5) gm/dL Hct 34.2 L (39.0-53.0) % MCHC 30.6 L (31.0-37.0) g/dL RDW 16.7 H (11.5-15.5) % Plt Count (150-450) k/uL PT (9.0-12.0) sec INR (<1.2) APTT (22.0-30.0) sec Potassium 8.1 H* (3.5-5.1) mmol/L BUN 124 H* (9-20) mg/dL Creatinine 4.20 H (0.66-1.25) mg/dL Glucose 148 H (74-99) mg/dL POC Glucose (mg/dL) (75-99) mg/dL Phosphorus (2.5-4.5) mg/dL Magnesium 3.0 H (1.6-2.3) mg/dL Total Creatine Kinase 238 H (55-170) U/L CK-MB (CK-2) 5.0 H* (0.0-2.4) ng/mL 11/07/17 11/08/17 11/08/17 Range/Units 22:43 01:15 03:59 RBC (4.30-5.90) m/uL Hgb (13.0-17.5) gm/dL Hct (39.0-53.0) % MCHC (31.0-37.0) g/dL RDW (11.5-15.5) % Plt Count (150-450) k/uL PT 19.1 H (9.0-12.0) sec INR 2.1 H (<1.2) APTT 67.4 H (22.0-30.0) sec Potassium 8.6 H* 7.5 H* (3.5-5.1) mmol/L BUN 125 H* 117 H* (9-20) mg/dL Creatinine 4.10 H 3.60 H (0.66-1.25) mg/dL Glucose 162 H 127 H (74-99) mg/dL POC Glucose (mg/dL) (75-99) mg/dL Phosphorus 6.7 H (2.5-4.5) mg/dL Magnesium (1.6-2.3) mg/dL Total Creatine Kinase (55-170) U/L CK-MB (CK-2) (0.0-2.4) ng/mL 11/08/17 11/08/17 11/08/17 Range/Units 05:33 06:00 06:00 RBC 2.98 L (4.30-5.90) m/uL Hgb 9.5 L (13.0-17.5) gm/dL Hct 29.8 L (39.0-53.0) % MCHC (31.0-37.0) g/dL RDW 16.7 H (11.5-15.5) % Plt Count 137 L (150-450) k/uL PT (9.0-12.0) sec INR (<1.2) APTT (22.0-30.0) sec Potassium 6.5 H* (3.5-5.1) mmol/L BUN 113 H* (9-20) mg/dL Creatinine 3.83 H (0.66-1.25) mg/dL Glucose 159 H (74-99) mg/dL POC Glucose (mg/dL) 142 H (75-99) mg/dL Phosphorus 6.5 H (2.5-4.5) mg/dL Magnesium 2.6 H (1.6-2.3) mg/dL Total Creatine Kinase (55-170) U/L CK-MB (CK-2) (0.0-2.4) ng/mL 11/08/17 11/08/17 11/08/17 Range/Units 07:58 10:42 12:13 RBC (4.30-5.90) m/uL Hgb (13.0-17.5) gm/dL Hct (39.0-53.0) % MCHC (31.0-37.0) g/dL RDW (11.5-15.5) % Plt Count (150-450) k/uL PT (9.0-12.0) sec INR (<1.2) APTT (22.0-30.0) sec Potassium 6.3 H* (3.5-5.1) mmol/L BUN (9-20) mg/dL Creatinine (0.66-1.25) mg/dL Glucose (74-99) mg/dL POC Glucose (mg/dL) 162 H 162 H (75-99) mg/dL Phosphorus (2.5-4.5) mg/dL Magnesium (1.6-2.3) mg/dL Total Creatine Kinase (55-170) U/L CK-MB (CK-2) (0.0-2.4) ng/mL Assessment and Plan Plan: -Acute renal failure: Multifactorial and probably prerenal azotemia from excessive diuretic therapy which is being held at this time. Patient may need a repeat echocardiogram cardiology was consulted area patient repeat ejection fraction was around 55-60% from an echocardiogram that was done outside the [facility] system. Continue with IV fluids and bicarbonate. -Hyperkalemia: Secondary to lisinopril, aldactone and acute renal failure. Patient is visiting D5 water along with insulin, calcium gluconate and Kayexalate. -Congestive heart failure history of chronic systolic dysfunction not in acute exacerbated at this time patient's ejection fraction normalized apparently as per the patient. -chronic kidney disease stage II: Secondary to probably diabetic nephropathy and hypertensive nephrosclerosis -Hypertension -Hyperlipidemia 7 coronary artery disease -Sleep apnea morbid obesity continue CPAP machine -Gout allopurinol and colchicine will be held because of her severe renal dysfunction -Atrial fibrillation amiodarone will be continued beta lizette was discontinued hold off on Dabigatrin for now because of her GFR being less than 30. -Gastroesophageal reflux disease.
[2017-11-08] MEDS: FAMOTIDINE 20 MG TAB PO SCH ×2 (13:37→20:10)
[2017-11-08] MEDS: PREGABALIN 75 MG CAP PO SCH ×2 (13:37→20:11)
--- NOTE | 2017-11-08 14:16 | P.CNPUL ---
History of Present Illness Consult date: 11/08/17 Requesting physician: Aidee Garcia Chief complaint: Weakness History of present illness: This is a 77-year-old white male with history of multiple medical problems including coronary artery disease, previous AL, systolic dysfunction, ejection fraction is usually about 20%. However follow-up echocardiogram on this patient according to the showed significant improvement. At any rate the patient was recently admitted to the hospital with acute congestive heart failure, and he was treated with mostly with aggressive doses of diuretics including Lasix Aldactone and metolazone. He was also on lisinopril for hypertension. Over the last few days, the patient has been complaining of weakness. Brought into the ER, and workup revealed evidence of hyperkalemia with a potassium of 8.6, worsening renal failure, he has a baseline creatinine of 1.4. Patient was treated with multiple meds including IV insulin, albuterol , Kayexalate, Lasix, and he also received IV calcium gluconate. Chest x-ray showed evidence of mild interstitial changes, could be underlying fibrosis or could be a component of interstitial edema. Patient had no cough, no wheezing, no fever, no chills, no hemoptysis. His creatinine up on this admission was noted to be 4.2. And this morning is down to 3.8. Patient is a friend of Dr. Kinney and he expressed recently interest to follow-up with Dr. Kinney as his primary care physician, supposedly Dr. Kinney accepted to take care of his medical problems on outpatient basis. Repeat potassium this morning is 6.3. Patient is still receiving treatment as per nephrology for his hyperkalemia. During my evaluation, the patient voiced mostly concerns about being weak, denies any cough, no wheezing, no fever, no chills, no hemoptysis, no chest pain , no nausea, no vomiting, no abdominal pain. He was mostly generally weak. Review of Systems 14 point review of systems were obtained, please refer to pertinent positives in HPI, otherwise remaining systems are negative. Past Medical History Past Medical History: CVA/TIA, Diabetes Mellitus, Eye Disorder, GERD/Reflux, Hyperlipidemia, Myocardial Infarction (AL), Osteoarthritis (OA), Sleep Apnea/ CPAP/BIPAP, Syncope Additional Past Medical History / Comment(s): Gout, blockage left carotid artery , neuropathy, diverticulitis, insulin pump, uses a walker- wheelchair for distance. edema shaka legs-(left worse)-wears compression hose, stroke 05/08/17- left side weakness, hx pericardial effusion, macular degeneration left eye-gets injections Last Myocardial Infarction Date:: 05/08/17 History of Any Multi-Drug Resistant Organisms: None Reported Past Surgical History: Cardiac Ablation, Joint Replacement, Orthopedic Surgery, Tonsillectomy Additional Past Surgical History / Comment(s): carpal tunnel rt wrist, rt knee replacement, shaka hip replacement, drainage for pericaridal effusion, cardioversion x 2, arthroscopy shaka knees, rt carotid endarterectomy, trigger finger shaka hands, shaka cataracts Past Anesthesia/Blood Transfusion Reactions: No Reported Reaction Past Psychological History: No Psychological Hx Reported Smoking Status: Never smoker Past Alcohol Use History: None Reported Past Drug Use History: None Reported - Past Family History Mother Family Medical History: No Reported History Daughter(s) Family Medical History: Cancer Medications and Allergies Home Medications Medication Instructions Recorded Confirmed Type Allopurinol [Zyloprim] 300 mg PO DAILY 03/04/17 11/08/17 History Carvedilol [Coreg] 12.5 mg PO BID 03/04/17 11/08/17 History Colchicine [Colcrys] 0.6 mg PO BID PRN 03/04/17 11/08/17 History Tamsulosin HCl [Flomax] 0.4 mg PO BID 03/04/17 11/08/17 History Aspirin [Adult Low Dose Aspirin EC] 81 mg PO DAILY 04/27/17 11/08/17 History Pravastatin Sodium [Pravachol] 40 mg PO HS #30 tab 05/23/17 11/08/17 Rx Acetaminophen [Tylenol Arthritis] 1,300 mg PO Q12H PRN 08/06/17 11/08/17 History Dabigatran [Pradaxa] 150 mg PO BID 08/06/17 11/08/17 History INSULIN LISPRO (For Pump) [humaLOG 0.01 units SQ-PUMP CONTINUOUS 08/06/17 History (For Pump)] Isosorbide Mononitrate [Isosorbide 30 mg PO DAILY 08/06/17 11/08/17 History Mononitrate ER] Lisinopril [Zestril] 5 mg PO DAILY 08/06/17 11/08/17 History Meclizine [Antivert] 25 mg PO DAILY PRN 08/06/17 11/08/17 History Nitroglycerin Sl Tabs [Nitrostat] 0.4 mg SUBLINGUAL Q5M PRN 08/06/17 11/08/17 History Zolpidem [Ambien] 5 - 10 mg PO HS 08/06/17 11/08/17 History traMADol HCL [Ultram] 50 mg PO Q8HR PRN 08/06/17 11/08/17 History amLODIPine BESYLATE [Norvasc] 5 mg PO DAILY #90 tablet 08/13/17 11/08/17 Rx Albuterol Inhaler [Ventolin Hfa 2 puff INHALATION RT-Q4H 10/26/17 11/08/17 History Inhaler] Amiodarone [Cordarone] 200 mg PO DAILY 10/26/17 11/08/17 History Budesonide/Formoterol Fumarate 2 puff INHALATION RT-BID 10/26/17 11/08/17 History [Symbicort 160-4.5 Mcg Inhaler] Furosemide [Lasix] 80 mg PO BID 10/26/17 11/08/17 History Ibuprofen [Motrin] 600 mg PO Q8HR PRN 10/26/17 11/08/17 History Pregabalin [Lyrica] 200 mg PO BID 10/26/17 11/08/17 History Spironolactone 50 mg PO BID 10/26/17 11/08/17 History Metolazone [Zaroxolyn] 2.5 mg PO DAILY 11/08/17 11/08/17 History Allergies Allergy/AdvReac Type Severity Reaction Status Date / Time No Known Allergies Allergy Verified 11/07/17 22:28 Physical Exam Vitals: Vital Signs Temp Pulse Resp BP Pulse Ox 11/08/17 13:15 51 L 11/08/17 13:05 52 L 11/08/17 11:00 48 L 16 111/73 97 11/08/17 10:30 56 L 25 H 91/55 96 11/08/17 10:15 45 L 11 L 91/55 95 11/08/17 10:00 49 L 13 95/49 95 11/08/17 09:45 52 L 20 95/49 92 L 11/08/17 09:30 52 L 30 H 107/51 93 L 11/08/17 09:23 54 L 11/08/17 09:15 45 L 14 107/51 97 11/08/17 09:00 49 L 13 110/51 98 11/08/17 08:53 49 L 11/08/17 08:45 53 L 16 110/51 91 L 11/08/17 08:30 50 L 95 11/08/17 08:15 96 F L 50 L 25 H 110/60 96 11/08/17 07:00 97.6 F 43 L 17 101/49 100 11/08/17 04:56 50 L 11/08/17 04:37 50 L 11/08/17 04:26 47 L 17 130/47 96 11/08/17 04:16 49 L 11/08/17 04:00 50 L 11/08/17 02:49 45 L 17 117/74 94 L 11/08/17 01:56 50 L 11/08/17 01:40 50 L 20 131/45 98 11/08/17 01:39 52 L 11/08/17 00:23 97.0 F L 51 L 17 135/70 96 11/07/17 23:03 96.8 F L 53 L 18 141/61 96 11/07/17 22:25 97 F L 53 L 18 119/51 98 Intake and Output 11/07/17 11/08/17 11/08/17 22:59 06:59 14:59 Intake Total 325 Output Total 1450 Balance -1125 Intake: IV 325 Sodium Chloride 0.9% 1, 325 000 ml @ 75 mls/hr IV . [id number] [facility] Rx#:[id number] Output: Urine 1450 Other: Voiding Method Indwelling Catheter Weight 130.635 kg 130.6 kg Physical Exam: Revealed a 77-year-old white male in no distress. Head: Atraumatic, normocephalic. HEENT:[Neck is supple.] [No neck masses.] [No thyromegaly.] [No JVD.] PERRLA, EOMI, no icterus. Chest: [Diminished breath sounds at the bases, no crackles, no rhonchi, no wheezes.] Cardiac Exam: [Normal S1 and S2, no S3 gallop, no murmur. No gallops, no rubs.] Abdomen: Obese, [Soft, nontender, no megaly, no rebound, no guarding, normal bowel sounds.] Extremities: [No clubbing, trace of bipedal edema, no cyanosis.] Neurological Exam: [No focal neurologic deficit.] Psychiatric: Normal mood affect and mental status examination. Skin: No rashes. No erythema. Results - Laboratory Findings CBC and BMP: 11/08/17 06:00 11/08/17 10:42 PT/INR, D-dimer PT 19.1 sec (9.0-12.0) H 11/07/17 22:43 INR 2.1 (<1.2) H 11/07/17 22:43 Abnormal lab findings: Abnormal Labs 11/07/17 11/07/17 11/07/17 22:43 22:43 22:43 RBC 3.43 L Hgb 10.5 L Hct 34.2 L MCHC 30.6 L RDW 16.7 H Plt Count PT INR APTT Potassium 8.1 H* BUN 124 H* Creatinine 4.20 H Glucose 148 H POC Glucose (mg/dL) Phosphorus Magnesium 3.0 H Total Creatine Kinase 238 H CK-MB (CK-2) 5.0 H* 11/07/17 11/08/17 11/08/17 22:43 01:15 03:59 RBC Hgb Hct MCHC RDW Plt Count PT 19.1 H INR 2.1 H APTT 67.4 H Potassium 8.6 H* 7.5 H* BUN 125 H* 117 H* Creatinine 4.10 H 3.60 H Glucose 162 H 127 H POC Glucose (mg/dL) Phosphorus 6.7 H Magnesium Total Creatine Kinase CK-MB (CK-2) 11/08/17 11/08/17 11/08/17 05:33 06:00 06:00 RBC 2.98 L Hgb 9.5 L Hct 29.8 L MCHC RDW 16.7 H Plt Count 137 L PT INR APTT Potassium 6.5 H* BUN 113 H* Creatinine 3.83 H Glucose 159 H POC Glucose (mg/dL) 142 H Phosphorus 6.5 H Magnesium 2.6 H Total Creatine Kinase CK-MB (CK-2) 11/08/17 11/08/17 11/08/17 07:58 10:42 12:13 RBC Hgb Hct MCHC RDW Plt Count PT INR APTT Potassium 6.3 H* BUN Creatinine Glucose POC Glucose (mg/dL) 162 H 162 H Phosphorus Magnesium Total Creatine Kinase CK-MB (CK-2) - Diagnostic Findings Chest x-ray: image reviewed (As noted in HPI.) Assessment and Plan Assessment: Impression: 1 acute on chronic kidney injury, most likely secondary to diuretics in combination with lisinopril. This is mostly a prerenal type of picture. 2 acute hyperkalemia secondary to Aldactone and lisinopril. Along with acute on chronic renal failure secondary to nephrosclerosis. 3 multiple comorbidities including cardiomyopathy, and LV dysfunction, COPD, insulin-dependent diabetes, previous right carotid endarterectomy, postoperative cardiac arrest and respiratory failure requiring intubation and mechanical ventilation atrial fibrillation, obstructive sleep apnea syndrome, gout, previous cardiac ablation and cardiac catheterization previous pericardiocentesis Recommendation: Continue present supportive care measures, will continue to monitor in the ICU, patient is being followed by nephrology and cardiology, his hyperkalemia is responding to treatment, and I expect his renal functioning to improve gradually. We'll continue to follow. Time with Patient: Greater than 30
[2017-11-08] MEDS ORDERED: ALBUTEROL NEBULIZED 2.5 MG/3 ML INHALATION SCH (16:00)
[2017-11-08] MEDS ORDERED: FUROSEMIDE 10 MG/ML 4 ML VIAL IV STA (16:36)
[2017-11-08 16:54] LABS: Glucose,Whole Blood 161 mg/dL (75-99)
[2017-11-08] MEDS: CARVEDILOL 12.5 MG TAB PO SCH (18:15)
[2017-11-08] MEDS ORDERED: ALBUTEROL NEBULIZED 2.5 MG/3 ML INHALATION PRN (18:34)
[2017-11-08 20:09] LABS: Glucose,Whole Blood 147 mg/dL (75-99)
[2017-11-08] MEDS: PRAVASTATIN SODIUM 40 MG TAB PO SCH (20:11)
[2017-11-08] MEDS: TAMSULOSIN 0.4 MG CAP.ER.24H PO SCH (20:11)
[2017-11-08] MEDS: SYMBICORT 160-4.5 MCG INHALER INHALATION SCH (20:58)
[2017-11-08] MEDS ORDERED: DABIGATRAN 150 MG CAP PO SCH (21:00)
[2017-11-08] MEDS ORDERED: HEPARIN SODIUM 1,000 UN/ML (10ML VL) ONE (22:00)
[2017-11-08] MEDS ORDERED: LIDOCAINE 1% INJ 10MG/ML (20 ML MDV) ONE (22:00)
[2017-11-08] MEDS ORDERED: HYDROmorphone 1 MG/ML 1 ML SYRINGE IVP STA (22:15)
[2017-11-08] MEDS ORDERED: HYDROmorphone 1 MG/ML 1 ML SYRINGE ONE (22:29)
[2017-11-09] MEDS: SODIUM CHLORIDE 0.9% 1,000 ML IV SCH ×2 (00:30→12:17)
[2017-11-09] MEDS ORDERED: hydrALAZINE HCL 20 MG/ML 1 ML VIAL IVP STA (04:35)
[2017-11-09 04:51] LABS: Anisocytosis Slight; Basophils % (A) 0 %; Eosinophils # (A) 0.2 k/uL (0-0.7); Eosinophils % (A) 2 %; HCT 30.7 % (39.0-53.0); HGB 9.6 gm/dL (13.0-17.5); Hypochromasia Slight; Lymphocytes # (A) 0.8 k/uL (1.0-4.8); Lymphocytes % (A) 10 %; MCH 31.2 pg (25.0-35.0); MCHC 31.4 g/dL (31.0-37.0); MCV 99.5 fL (80.0-100.0); Macrocytosis Slight; Mean Platelet Volume 8.9; Monocytes # (A) 0.6 k/uL (0-1.0); Monocytes % (A) 7 %; Neutrophils # (A) 7.1 k/uL (1.3-7.7); Neutrophils % (A) 81 %; Platelet Count 139 k/uL (150-450); RBC 3.08 m/uL (4.30-5.90); RDW 16.7 % (11.5-15.5); WBC 8.8 k/uL (3.8-10.6)
[2017-11-09 05:12] LABS: Magnesium 2.1 mg/dL (1.6-2.3); Phosphorus 4.5 mg/dL (2.5-4.5)
[2017-11-09] MEDS: NITROGLYCERIN SL TABS 0.4 MG TAB SUBLINGUAL PRN ×2 (05:37→05:45)
[2017-11-09 05:39] LABS: INR 1.6 (<1.2); Prothrombin Time 14.4 sec (9.0-12.0)
[2017-11-09] MEDS ORDERED: NITROGLYCERIN-D5W PMX 50 MG in DEXTROSE/WATER 1 250ML.BAG IV SCH (06:00)
[2017-11-09 06:30] LABS: Troponin I <0.012 ng/mL (0.000-0.034)
[2017-11-09 07:04] LABS: Calcium 8.7 mg/dL (8.4-10.2); Potassium 5.7 mmol/L (3.5-5.1)
[2017-11-09 07:07] LABS: Glucose,Whole Blood 163 mg/dL (75-99)
--- NOTE | 2017-11-09 08:32 | CONS ---
CONSULTATION This is a 77-year-old gentleman who has been admitted with congestive heart failure. History of chronic renal failure stage III. The patient today his potassium is high and I was consulted for placement of urgent dialysis catheter. His INR is 2.1 and the patient creatinine is 4.2. PHYSICAL EXAMINATION: Patient was seen in his room patient lying comfortably in bed. NECK: Supple. Trachea central. CHEST: Clear to auscultation. ABDOMEN: Soft. Femorals are palpable. Patient's potassium is high and I had discussed with Dr. Hardin. We have to place a dialysis catheter. Risks and complications of bleeding and infection has been discussed. MMODL / IJN: [id number] /
[2017-11-09] MEDS: SYMBICORT 160-4.5 MCG INHALER INHALATION SCH ×3 (08:39→20:18)
[2017-11-09] MEDS: ALBUTEROL NEBULIZED 2.5 MG/3 ML INHALATION SCH ×4 (08:39→22:15)
--- NOTE | 2017-11-09 08:41 | OP ---
OPERATIVE REPORT PREOPERATIVE DIAGNOSIS: Acute on chronic renal failure with high potassium. PROCEDURE: Ultrasound-guided dialysis catheter placement right femoral approach. DESCRIPTION OF PROCEDURE: The patient was seen in the intensive care unit. Right groin was prepped and drapes applied in the usual sterile manner. 1% lidocaine was infiltrated. Ultrasound-guided micropuncture right femoral vein. Micropuncture guide was passed and a sheath was passed off the top of the guidewire. Then we placed a regular guidewire without any resistance. After that, we advanced the dilator and then we placed a dialysis catheter on top of the guidewire. The guidewire was removed. Flushed with heparin saline and hep-locked and secured with 3-0 silk. Dressing applied. Patient tolerated the procedure well. WALTODL / IJN: [id number] /
--- NOTE | 2017-11-09 08:51 | P.PN ---
Subjective Patient is seen in follow-up for acute kidney injury on chronic kidney disease and hyperkalemia. Patient has chronic kidney disease stage III with baseline creatinine in the range of 1.2-1.4 secondary to nephrosclerosis. Patient presented to the hospital with generalized weakness. He was recently admitted as CHF exacerbation and was maintained on Lasix as well as Aldactone and lisinopril. Patient was noted to be hyperkalemic with a potassium level of 8.6 which was medically treated several times. Patient remained persistently hyperkalemic and underwent hemodialysis last night. Potassium 5.7 this morning. He is nonoliguric with urine output of greater than 7 L. Vital signs are stable. General: The patient appeared well nourished and normally developed. HEENT: Head exam is unremarkable. Neck is without jugular venous distension. LUNGS: Lungs are clear to auscultation and percussion. Breath sounds decreased. HEART: Rate and Rhythm are regular. First and second heart sounds normal. No murmurs, rubs or gallops. ABDOMEN: Abdominal exam reveals normal bowel sounds. Non-tender and non- distended. No evidence of peritonitis. EXTREMITITES: No clubbing, cyanosis, or edema. Objective - Vital Signs Vital signs: Vital Signs Temp 98.2 F 11/09/17 04:00 Pulse 74 11/09/17 08:40 Resp 19 11/09/17 07:00 BP 146/58 11/09/17 07:00 Pulse Ox 93 L 11/09/17 07:00 Intake & Output 11/08/17 11/09/17 11/09/17 18:59 06:59 18:59 Intake Total 775 902.15 76.4 Output Total 3750 3685 210 Balance -2975 -2782.85 -133.6 Weight 124.4 kg Intake: IV 775 900 75 Sodium Chloride 0.9% 1, 775 900 75 000 ml @ 75 mls/hr IV . [id number] [facility] Rx#:[id number] Intake, IV Titration 2.15 1.4 Amount Nitroglycerin-D5w Pmx 50 2.15 1.4 mg In Dextrose/Water 1 250ml.bag @ Titrate IV . Q0M [facility] Rx#:[id number] Output: Urine 3750 3685 210 Other: Voiding Method Indwelling Catheter Indwelling Catheter - Labs CBC & Chem 7: 11/09/17 04:31 11/09/17 05:53 Labs: Abnormal Lab Results - Last 24 Hours (Table) 11/08/17 11/08/17 11/08/17 Range/Units 10:42 12:13 14:46 RBC (4.30-5.90) m/uL Hgb (13.0-17.5) gm/dL Hct (39.0-53.0) % RDW (11.5-15.5) % Plt Count (150-450) k/uL Lymphocytes # (1.0-4.8) k/uL PT (9.0-12.0) sec INR (<1.2) APTT (22.0-30.0) sec Potassium 6.3 H* 6.5 H* (3.5-5.1) mmol/L BUN (9-20) mg/dL Creatinine (0.66-1.25) mg/dL Glucose (74-99) mg/dL POC Glucose (mg/dL) 162 H (75-99) mg/dL CK-MB (CK-2) (0.0-2.4) ng/mL 11/08/17 11/08/17 11/08/17 Range/Units 16:52 19:54 20:07 RBC (4.30-5.90) m/uL Hgb (13.0-17.5) gm/dL Hct (39.0-53.0) % RDW (11.5-15.5) % Plt Count (150-450) k/uL Lymphocytes # (1.0-4.8) k/uL PT (9.0-12.0) sec INR (<1.2) APTT (22.0-30.0) sec Potassium 7.1 H* (3.5-5.1) mmol/L BUN (9-20) mg/dL Creatinine (0.66-1.25) mg/dL Glucose (74-99) mg/dL POC Glucose (mg/dL) 161 H 147 H (75-99) mg/dL CK-MB (CK-2) (0.0-2.4) ng/mL 11/09/17 11/09/17 11/09/17 Range/Units 04:31 05:01 05:50 RBC 3.08 L (4.30-5.90) m/uL Hgb 9.6 L (13.0-17.5) gm/dL Hct 30.7 L (39.0-53.0) % RDW 16.7 H (11.5-15.5) % Plt Count 139 L (150-450) k/uL Lymphocytes # 0.8 L (1.0-4.8) k/uL PT 14.4 H (9.0-12.0) sec INR 1.6 H (<1.2) APTT 46.0 H (22.0-30.0) sec Potassium (3.5-5.1) mmol/L BUN (9-20) mg/dL Creatinine (0.66-1.25) mg/dL Glucose (74-99) mg/dL POC Glucose (mg/dL) (75-99) mg/dL CK-MB (CK-2) 3.0 H* (0.0-2.4) ng/mL 11/09/17 11/09/17 Range/Units 05:53 07:05 RBC (4.30-5.90) m/uL Hgb (13.0-17.5) gm/dL Hct (39.0-53.0) % RDW (11.5-15.5) % Plt Count (150-450) k/uL Lymphocytes # (1.0-4.8) k/uL PT (9.0-12.0) sec INR (<1.2) APTT (22.0-30.0) sec Potassium 5.7 H (3.5-5.1) mmol/L BUN 67 H (9-20) mg/dL Creatinine 2.46 H (0.66-1.25) mg/dL Glucose 135 H (74-99) mg/dL POC Glucose (mg/dL) 163 H (75-99) mg/dL CK-MB (CK-2) (0.0-2.4) ng/mL Assessment and Plan Plan: Assessment: 1. Acute kidney injury mostly prerenal from diuretics. Improved with IV hydration. Creatinine 2.46 today. He underwent hemodialysis last night. Urinalysis is benign. 2. Chronic kidney disease stage III with baseline creatinine in the range of 1.2-1.4 secondary to nephrosclerosis. 3. Hyperkalemia secondary to acute kidney injury and from the use of lisinopril and Aldactone. Refractory to medical management. Patient underwent hemodialysis last night. Potassium level V.7 this morning. No hydronephrosis noted on renal ultrasound. 4. Systolic CHF with ejection fraction of less than 20% on previous echocardiogram in the chart. 5. Hyperphosphatemia secondary to acute kidney injury. Improved. 6. Insulin-dependent diabetes mellitus. Plan: I will decrease the rate of normal saline to 50 mL an hour. Low potassium diet. Continue to monitor renal function and urine output closely. Second treatment of hemodialysis today as he is still hyperkalemic. Can likely discontinue dialysis catheter in the next 1-2 days once hyperkalemia resolves.
[2017-11-09] MEDS ORDERED: ISOSORBIDE MONONITRATE ER 30 MG TAB.ER.24H PO SCH (09:00)
[2017-11-09] MEDS: PREGABALIN 75 MG CAP PO SCH ×3 (09:14→20:52)
[2017-11-09] MEDS: TAMSULOSIN 0.4 MG CAP.ER.24H PO SCH ×3 (09:14→20:52)
[2017-11-09] MEDS: ASPIRIN 81 MG PO SCH (09:15)
[2017-11-09] MEDS: CARVEDILOL 12.5 MG TAB PO SCH ×2 (09:15→17:50)
[2017-11-09] MEDS: AMIODARONE 200 MG TAB PO SCH (09:15)
[2017-11-09] MEDS: FAMOTIDINE 20 MG TAB PO SCH ×3 (09:15→20:52)
[2017-11-09] MEDS: INSULIN ASPART 100 UNIT/ML 1 ML 10 ML VIAL SQ SCH ×4 (09:18→20:53)
[2017-11-09] MEDS: ALPRAZolam 0.5 MG TAB PO PRN (09:18)
[2017-11-09] MEDS ORDERED: LORazepam 2 MG/ML INJ IV PRN (10:59)
[2017-11-09 12:09] LABS: Glucose,Whole Blood 160 mg/dL (75-99)
[2017-11-09] MEDS: amLODIPine 5 MG TAB PO SCH (12:17)
--- NOTE | 2017-11-09 13:15 | P.PN ---
Subjective Progress Note Date: 11/09/17 Principal diagnosis: Acute on chronic kidney injury, multifactorial. This is a 77-year-old white male with history of multiple medical problems including coronary artery disease, previous [place], systolic dysfunction, ejection fraction is usually about 20%. However follow-up echocardiogram on this patient according to the showed significant improvement. At any rate the patient was recently admitted to the hospital with acute congestive heart failure, and he was treated with mostly with aggressive doses of diuretics including Lasix Aldactone and metolazone. He was also on lisinopril for hypertension. Over the last few days, the patient has been complaining of weakness. Brought into the ER, and workup revealed evidence of hyperkalemia with a potassium of 8.6, worsening renal failure, he has a baseline creatinine of 1.4. Patient was treated with multiple meds including IV insulin, albuterol , Kayexalate, Lasix, and he also received IV calcium gluconate. Chest x-ray showed evidence of mild interstitial changes, could be underlying fibrosis or could be a component of interstitial edema. Patient had no cough, no wheezing, no fever, no chills, no hemoptysis. His creatinine up on this admission was noted to be 4.2. And this morning is down to 3.8. Patient is a friend of Dr. Kinney and he expressed recently interest to follow-up with Dr. Kinney as his primary care physician, supposedly Dr. Kinney accepted to take care of his medical problems on outpatient basis. Repeat potassium this morning is 6.3. Patient is still receiving treatment as per nephrology for his hyperkalemia. During my evaluation, the patient voiced mostly concerns about being weak, denies any cough, no wheezing, no fever, no chills, no hemoptysis, no chest pain , no nausea, no vomiting, no abdominal pain. He was mostly generally weak. Patient was reevaluated today on 11/09/2017, underwent dialysis catheter placement yesterday placed in the right groin, and he was dialyzed last night. Patient is feeling a bit better today, and his labs seem to be significantly improved. Potassium is down to 5.7 BUN is 67 creatinine is 2.46. PTT is 46. CBC is relatively normal hemoglobin however is low at 9.6. Chest x-ray on admission showed coarse interstitial markings otherwise unremarkable. Urine output has been excellent, patient has non-oligoric renal failure. Remains on normal saline at 50 ML per hour. Patient is known to have history of chronic systolic congestive heart failure, ejection fraction is 20%. Objective - Vital Signs Vital signs: Vital Signs Temp 98.6 F 11/09/17 08:00 Pulse 69 11/09/17 11:00 Resp 25 H 11/09/17 11:00 BP 133/69 11/09/17 11:00 Pulse Ox 91 L 11/09/17 11:00 Intake & Output 11/08/17 11/09/17 11/09/17 18:59 06:59 18:59 Intake Total 775 902.15 251.4 Output Total 3750 3685 735 Balance -2975 -2782.85 -483.6 Weight 124.4 kg Intake: IV 775 900 250 Sodium Chloride 0.9% 1, 775 900 250 000 ml @ 50 mls/hr IV . Q20H [facility] Rx#:[id number] Intake, IV Titration 2.15 1.4 Amount Nitroglycerin-D5w Pmx 50 2.15 1.4 mg In Dextrose/Water 1 250ml.bag @ Titrate IV . Q0M [facility] Rx#:[id number] Output: Urine 3750 3685 735 Other: Voiding Method Indwelling Catheter Indwelling Catheter Indwelling Catheter - Exam Physical Exam: Revealed a 77-year-old white male in no distress. Head: Atraumatic, normocephalic. HEENT:[Neck is supple.] [No neck masses.] [No thyromegaly.] [No JVD.] PERRLA, EOMI, no icterus. Chest: [Diminished breath sounds at the bases, no crackles, no rhonchi, no wheezes.] Cardiac Exam: [Normal S1 and S2, no S3 gallop, no murmur. No gallops, no rubs.] Abdomen: Obese, [Soft, nontender, no megaly, no rebound, no guarding, normal bowel sounds.] Extremities: [No clubbing, trace of bipedal edema, no cyanosis.] Neurological Exam: [No focal neurologic deficit.] Psychiatric: Normal mood affect and mental status examination. Skin: No rashes. No erythema. - Labs CBC & Chem 7: 11/09/17 04:31 11/09/17 05:53 Labs: Abnormal Lab Results - Last 24 Hours (Table) 11/08/17 11/08/17 11/08/17 Range/Units 14:46 16:52 19:54 RBC (4.30-5.90) m/uL Hgb (13.0-17.5) gm/dL Hct (39.0-53.0) % RDW (11.5-15.5) % Plt Count (150-450) k/uL Lymphocytes # (1.0-4.8) k/uL PT (9.0-12.0) sec INR (<1.2) APTT (22.0-30.0) sec Potassium 6.5 H* 7.1 H* (3.5-5.1) mmol/L BUN (9-20) mg/dL Creatinine (0.66-1.25) mg/dL Glucose (74-99) mg/dL POC Glucose (mg/dL) 161 H (75-99) mg/dL CK-MB (CK-2) (0.0-2.4) ng/mL 11/08/17 11/09/17 11/09/17 Range/Units 20:07 04:31 05:01 RBC 3.08 L (4.30-5.90) m/uL Hgb 9.6 L (13.0-17.5) gm/dL Hct 30.7 L (39.0-53.0) % RDW 16.7 H (11.5-15.5) % Plt Count 139 L (150-450) k/uL Lymphocytes # 0.8 L (1.0-4.8) k/uL PT 14.4 H (9.0-12.0) sec INR 1.6 H (<1.2) APTT 46.0 H (22.0-30.0) sec Potassium (3.5-5.1) mmol/L BUN (9-20) mg/dL Creatinine (0.66-1.25) mg/dL Glucose (74-99) mg/dL POC Glucose (mg/dL) 147 H (75-99) mg/dL CK-MB (CK-2) (0.0-2.4) ng/mL 11/09/17 11/09/17 11/09/17 Range/Units 05:50 05:53 07:05 RBC (4.30-5.90) m/uL Hgb (13.0-17.5) gm/dL Hct (39.0-53.0) % RDW (11.5-15.5) % Plt Count (150-450) k/uL Lymphocytes # (1.0-4.8) k/uL PT (9.0-12.0) sec INR (<1.2) APTT (22.0-30.0) sec Potassium 5.7 H (3.5-5.1) mmol/L BUN 67 H (9-20) mg/dL Creatinine 2.46 H (0.66-1.25) mg/dL Glucose 135 H (74-99) mg/dL POC Glucose (mg/dL) 163 H (75-99) mg/dL CK-MB (CK-2) 3.0 H* (0.0-2.4) ng/mL 11/09/17 Range/Units 12:06 RBC (4.30-5.90) m/uL Hgb (13.0-17.5) gm/dL Hct (39.0-53.0) % RDW (11.5-15.5) % Plt Count (150-450) k/uL Lymphocytes # (1.0-4.8) k/uL PT (9.0-12.0) sec INR (<1.2) APTT (22.0-30.0) sec Potassium (3.5-5.1) mmol/L BUN (9-20) mg/dL Creatinine (0.66-1.25) mg/dL Glucose (74-99) mg/dL POC Glucose (mg/dL) 160 H (75-99) mg/dL CK-MB (CK-2) (0.0-2.4) ng/mL Assessment and Plan Assessment: Impression: 1 acute on chronic kidney injury, most likely secondary to diuretics in combination with lisinopril. This is mostly a prerenal type of picture. 2 acute hyperkalemia secondary to Aldactone and lisinopril. Along with acute on chronic renal failure secondary to nephrosclerosis. 3 multiple comorbidities including cardiomyopathy, and LV dysfunction, ejection fraction about 20% COPD, insulin-dependent diabetes, previous right carotid endarterectomy, postoperative cardiac arrest and respiratory failure requiring intubation and mechanical ventilation atrial fibrillation, obstructive sleep apnea syndrome, gout, previous cardiac ablation and cardiac catheterization previous pericardiocentesis Recommendation: Continue present supportive care measures, will continue to monitor in the ICU, patient is being followed by nephrology and cardiology, renal functioning is improving, hyperkalemia is coming down after 1 dialysis. We'll continue to monitor in the ICU, will follow. Time with Patient: Less than 30
[2017-11-09] MEDS: HALOPERIDOL LACTATE 5 MG/ML 1 ML VIAL IVP PRN ×2 (13:45→23:46)
[2017-11-09 17:40] LABS: Glucose,Whole Blood 152 mg/dL (75-99)
[2017-11-09] MEDS: PRAVASTATIN SODIUM 40 MG TAB PO SCH ×2 (20:16→20:52)
[2017-11-09 20:20] LABS: Glucose,Whole Blood 140 mg/dL (75-99)
[2017-11-10 05:52] LABS: Anisocytosis Slight; Basophils % (A) 0 %; Eosinophils # (A) 0.1 k/uL (0-0.7); Eosinophils % (A) 1 %; HCT 29.4 % (39.0-53.0); HGB 9.2 gm/dL (13.0-17.5); Hypochromasia Slight; Lymphocytes # (A) 0.9 k/uL (1.0-4.8); Lymphocytes % (A) 11 %; MCH 31.2 pg (25.0-35.0); MCHC 31.3 g/dL (31.0-37.0); MCV 99.8 fL (80.0-100.0); Macrocytosis Slight; Monocytes # (A) 0.6 k/uL (0-1.0); Monocytes % (A) 7 %; Neutrophils # (A) 6.8 k/uL (1.3-7.7); Neutrophils % (A) 80 %; Platelet Count 139 k/uL (150-450); RBC 2.95 m/uL (4.30-5.90); RDW 16.7 % (11.5-15.5); WBC 8.6 k/uL (3.8-10.6)
[2017-11-10 05:57] LABS: INR 1.4 (<1.2); Partial Thromboplastin Time 39.8 sec (22.0-30.0); Prothrombin Time 12.9 sec (9.0-12.0)
[2017-11-10 06:16] LABS: Phosphorus 3.8 mg/dL (2.5-4.5)
[2017-11-10 06:39] LABS: Potassium 5.2 mmol/L (3.5-5.1)
--- NOTE | 2017-11-10 06:56 | CONS ---
CONSULTATION Mr. Mitchell is a 77-year-old gentleman who is seen for cardiac evaluation. This patient's medical records reviewed. This patient has multiple medical problems including known coronary artery disease including peripheral vascular disease. This patient had a carotid endarterectomy done in May. The patient's subsequent course was complicated by cardiac arrest and the patient was on a ventilator for a long time. The patient subsequently improved and was discharged home. The patient was subsequently evaluated by Dr. Topete in the office. His repeat echocardiogram showed some improvement in his LV systolic function. The patient underwent a cardiac catheterization. He was found to have a diffuse triple-vessel disease. His surgical consultation was obtained and the patient was considered very high risk for surgery and they wanted to stabilize the patient before considering open heart surgery. The patient recently had been having swelling in the legs and has been aggressively diuresed with Lasix, Aldactone, and Zaroxolyn. The patient came to the emergency room with a complaint that he had been feeling weak and in the emergency room patient was found to have a potassium of 8.6 and his creatinine was elevated to 4.2. The patient was treated with multiple drugs to bring down the potassium. His potassium still remained elevated and ultimately he underwent the dialysis the last night. His potassium this morning is improved. Early this morning patient had an episode of chest discomfort, which got relieved with nitroglycerin. PAST MEDICAL HISTORY: Includes a prior history of CVA, TIA, diabetes mellitus, carotid endarterectomy, peripheral vascular disease, and the patient also has a history of a bilateral leg edema, prior history of cardiac ablation and drainage for pericardial effusion. HOME MEDICATIONS: The patient's home medications included Zyloprim, Coreg, Colcrys, Pravachol 40 mg daily, Pradaxa 150 mg b.i.d., insulin, Imdur 30 mg daily, Ultram, Cordarone 200 mg daily, Lasix, Motrin, Lyrica, and Zaroxolyn. The patient was on Aldactone 50 mg b.i.d. PHYSICAL EXAMINATION: At present reveals a 77-year-old obesely built gentleman who is not in any acute respiratory distress. Oxygen saturation is 94%. Blood pressure is 130/60 mmHg, heart rate is 63 per minute. HEENT examination is negative. NECK: Supple. No increase in jugular venous pressure is noted. Both the carotid pulses are felt. There is no bruit. Chest is symmetrical. Heart: The PMI is not felt. First and second heart sounds are heard. Lungs are fairly clear to auscultation and percussion. ABDOMEN: Soft. Liver and spleen are not enlarged. Extremities: There is trace leg edema. Peripheral pulses are not well felt. EKG shows diffuse ST changes in the inferior lateral leads yesterday as well as this morning. The patient's creatinine is now improved to 2.46 and potassium is 5.7. FINAL IMPRESSION: This patient is admitted with acute renal failure with hyperkalemia. The patient underwent a dialysis the last night. His potassium now is 5.7 and the creatinine is 2.46. Patient had an episode of chest discomfort suggestive of angina with ST changes, rule out non-Q-wave myocardial infarction. We will continue the patient on IV nitroglycerin at present. RECOMMENDATIONS: We will obtain echo and Doppler study and continue to observe the patient. Treat the patient with beta lizette and nitrates. In view of this patient's significant abnormal kidney functions, we will recommend to switch him from Pradaxa to the Eliquis which is metabolized by the liver and not significantly excreted by the kidneys. The patient's overall long-term prognosis is guarded because of his multiple medical problems. MMODL / IJN: [id number] /
[2017-11-10 07:42] LABS: Glucose,Whole Blood 163 mg/dL (75-99)
[2017-11-10] MEDS: ALBUTEROL NEBULIZED 2.5 MG/3 ML INHALATION SCH ×4 (07:48→20:19)
[2017-11-10] MEDS: SYMBICORT 160-4.5 MCG INHALER INHALATION SCH ×2 (07:48→20:19)
[2017-11-10] MEDS: CARVEDILOL 12.5 MG TAB PO SCH ×2 (07:49→16:47)
[2017-11-10] MEDS: amLODIPine 5 MG TAB PO SCH (07:49)
[2017-11-10] MEDS: ASPIRIN 81 MG PO SCH (07:49)
[2017-11-10] MEDS: AMIODARONE 200 MG TAB PO SCH (07:49)
[2017-11-10] MEDS: INSULIN ASPART 100 UNIT/ML 1 ML 10 ML VIAL SQ SCH ×4 (07:50→20:29)
[2017-11-10] MEDS: FAMOTIDINE 20 MG TAB PO SCH (07:50)
[2017-11-10] MEDS: PREGABALIN 75 MG CAP PO SCH ×2 (07:50→20:28)
[2017-11-10] MEDS: TAMSULOSIN 0.4 MG CAP.ER.24H PO SCH ×2 (07:50→20:28)
[2017-11-10] MEDS: NITROGLYCERIN OINT 1 INCH/GM PACKET TOPICAL SCH ×3 (08:07→23:46)
[2017-11-10] MEDS: RANOLAZINE 500 MG TAB.ER.12H PO SCH ×2 (08:07→20:28)
--- NOTE | 2017-11-10 08:10 | XR ---
EXAMINATION TYPE: XR chest 1V portable DATE OF EXAM: 11/10/2017 COMPARISON: 11/07/2017 INDICATION: Short of breath TECHNIQUE: Single frontal view of the chest is obtained. FINDINGS: The heart size is enlarged. The pulmonary vasculature is normal. No suspicious focal consolidation is evident. IMPRESSION: 1. No acute pulmonary process.
--- NOTE | 2017-11-10 08:58 | P.PN ---
Subjective Progress Note Date: 11/10/17 Principal diagnosis: Acute on chronic kidney injury, multifactorial This is a 77-year-old white male with history of multiple medical problems including coronary artery disease, previous [place], systolic dysfunction, ejection fraction is usually about 20%. However follow-up echocardiogram on this patient according to the showed significant improvement. At any rate the patient was recently admitted to the hospital with acute congestive heart failure, and he was treated with mostly with aggressive doses of diuretics including Lasix Aldactone and metolazone. He was also on lisinopril for hypertension. Over the last few days, the patient has been complaining of weakness. Brought into the ER, and workup revealed evidence of hyperkalemia with a potassium of 8.6, worsening renal failure, he has a baseline creatinine of 1.4. Patient was treated with multiple meds including IV insulin, albuterol , Kayexalate, Lasix, and he also received IV calcium gluconate. Chest x-ray showed evidence of mild interstitial changes, could be underlying fibrosis or could be a component of interstitial edema. Patient had no cough, no wheezing, no fever, no chills, no hemoptysis. His creatinine up on this admission was noted to be 4.2. And this morning is down to 3.8. Patient is a friend of Dr. Kinney and he expressed recently interest to follow-up with Dr. Kinney as his primary care physician, supposedly Dr. Kinney accepted to take care of his medical problems on outpatient basis. Repeat potassium this morning is 6.3. Patient is still receiving treatment as per nephrology for his hyperkalemia. During my evaluation, the patient voiced mostly concerns about being weak, denies any cough, no wheezing, no fever, no chills, no hemoptysis, no chest pain , no nausea, no vomiting, no abdominal pain. He was mostly generally weak. Patient was reevaluated today on 11/09/2017, underwent dialysis catheter placement yesterday placed in the right groin, and he was dialyzed last night. Patient is feeling a bit better today, and his labs seem to be significantly improved. Potassium is down to 5.7 BUN is 67 creatinine is 2.46. PTT is 46. CBC is relatively normal hemoglobin however is low at 9.6. Chest x-ray on admission showed coarse interstitial markings otherwise unremarkable. Urine output has been excellent, patient has non-oligoric renal failure. Remains on normal saline at 50 ML per hour. Patient is known to have history of chronic systolic congestive heart failure, ejection fraction is 20%. On 11/10/2017 patient seen in follow-up in the intensive care unit. He is alert and awake, resting in bed, he did have episode of chest pain this morning , he remains on nitroglycerin drip currently at 25 mics per minute, 0.9 normal saline is at a rate of 50 ML per hour. Patient had hemodialysis treatment yesterday, infiltration, no fluid was removed per nursing report. Today's labs show improvement of the renal profile BUN is down to 36, creatinine is 2.05. Patient has a Boothe in place, and he is maintaining 125-150 ML per hour urine. Denies any shortness of breath, today's chest x-ray shows no acute pulmonary process. Lawrence on 4 L per nasal cannula is 94%, grade fever this morning, with 100.6 temperature. Right groin hemodialysis catheter is clean dry and intact. Trace edema in bilateral tibial areas. No leukocytosis, hemoglobin is 9.2, INR is 1.4, potassium is 5.2. Cardiology is following, echocardiogram has been ordered, and is pending at this time. Objective - Vital Signs Vital signs: Vital Signs Temp 100.6 F H 11/10/17 08:00 Pulse 76 11/10/17 08:01 Resp 24 11/10/17 08:00 BP 156/67 11/10/17 08:00 Pulse Ox 94 L 11/10/17 08:00 Intake & Output 11/09/17 11/10/17 11/10/17 18:59 06:59 18:59 Intake Total 651.4 650 340 Output Total 20095 325 Balance -1358.6 -825 15 Weight 122.2 kg 122.2 kg Intake: IV 650 600 100 Sodium Chloride 0.9% 1, 650 600 100 000 ml @ 50 mls/hr IV . Q20H JOSÉ MIGUEL Rx#:[id number] Intake, IV Titration 1.4 Amount Nitroglycerin-D5w Pmx 50 1.4 mg In Dextrose/Water 1 250ml.bag @ Titrate IV . Q0M JOSÉ MIGUEL Rx#:[id number] Oral 50 240 Output: Urine 2009 1475 325 Other: Voiding Method Indwelling Catheter Indwelling Catheter Indwelling Catheter - Exam GENERAL EXAM: Alert, pleasant 77-year-old obese white male comfortable in no apparent distress. HEAD: Normocephalic/atraumatic. EYES: Normal reaction of pupils, equal size. Conjunctiva pink, sclera white. NOSE: Clear with pink turbinates. THROAT: No erythema or exudates. NECK: No masses, no JVD, no thyroid enlargement, no adenopathy. CHEST: No chest wall deformity. Symmetrical expansion. LUNGS: Bibasilar crackles, more at the left base CVS: Regular rate and rhythm, normal S1 and S2, no gallops, no murmurs, no rubs ABDOMEN: Soft, nontender. No hepatosplenomegaly, normal bowel sounds, no guarding or rigidity. EXTREMITIES: No clubbing, trace pretibial edema, no cyanosis, 2+ pulses and upper and lower extremities. Chronic venous stasis changes in bilateral lower extremities. Right groin hemodialysis catheter is clean dry and intact. MUSCULOSKELETAL: Muscle strength and tone normal. SPINE: No scoliosis or deformity SKIN: No rashes CENTRAL NERVOUS SYSTEM: Alert and oriented -3. No focal deficits, tone is normal in all 4 extremities. PSYCHIATRIC: Alert and oriented -3. Appropriate affect. Intact judgment and insight. - Labs CBC & Chem 7: 11/10/17 04:52 11/10/17 04:52 Labs: Abnormal Lab Results - Last 24 Hours (Table) 11/09/17 11/09/17 11/09/17 Range/Units 12:06 17:39 20:18 RBC (4.30-5.90) m/uL Hgb (13.0-17.5) gm/dL Hct (39.0-53.0) % RDW (11.5-15.5) % Plt Count (150-450) k/uL Lymphocytes # (1.0-4.8) k/uL PT (9.0-12.0) sec INR (<1.2) APTT (22.0-30.0) sec Potassium (3.5-5.1) mmol/L BUN (9-20) mg/dL Creatinine (0.66-1.25) mg/dL Glucose (74-99) mg/dL POC Glucose (mg/dL) 160 H 152 H 140 H (75-99) mg/dL 11/10/17 11/10/1711/10/18 Range/Units 04:52 04:52 04:52 RBC 2.95 L (4.30-5.90) m/uL Hgb 9.2 L (13.0-17.5) gm/dL Hct 29.4 L (39.0-53.0) % RDW 16.7 H (11.5-15.5) % Plt Count 139 L (150-450) k/uL Lymphocytes # 0.9 L (1.0-4.8) k/uL PT 12.9 H (9.0-12.0) sec INR 1.4 H (<1.2) APTT 39.8 H (22.0-30.0) sec Potassium 5.2 H (3.5-5.1) mmol/L BUN 36 H (9-20) mg/dL Creatinine 2.05 H (0.66-1.25) mg/dL Glucose 162 H (74-99) mg/dL POC Glucose (mg/dL) (75-99) mg/dL 11/10/17 Range/Units 07:34 RBC (4.30-5.90) m/uL Hgb (13.0-17.5) gm/dL Hct (39.0-53.0) % RDW (11.5-15.5) % Plt Count (150-450) k/uL Lymphocytes # (1.0-4.8) k/uL PT (9.0-12.0) sec INR (<1.2) APTT (22.0-30.0) sec Potassium (3.5-5.1) mmol/L BUN (9-20) mg/dL Creatinine (0.66-1.25) mg/dL Glucose (74-99) mg/dL POC Glucose (mg/dL) 163 H (75-99) mg/dL Assessment and Plan Plan: Assessment: 1 acute on chronic kidney injury, most likely secondary to diuretics in combination with lisinopril. This is mostly a prerenal type of picture. 2 acute hyperkalemia secondary to Aldactone and lisinopril. Along with acute on chronic renal failure secondary to nephrosclerosis. 3 multiple comorbidities including cardiomyopathy, and LV dysfunction, ejection fraction about 20% COPD, insulin-dependent diabetes, previous right carotid endarterectomy, postoperative cardiac arrest and respiratory failure requiring intubation and mechanical ventilation atrial fibrillation, obstructive sleep apnea syndrome, gout, previous cardiac ablation and cardiac catheterization previous pericardiocentesis Recommendation: Continue current medical treatment, will continue to follow with nephrology and cardiology, renal profile is improving. Continue to monitor for chest pain, echocardiogram is pending. Follow I performed a history & physical examination of the patient and discussed their management with my nurse practitioner, Pushpa Maki. I reviewed the nurse practitioner's note and agree with the documented findings and plan of care. Lung sounds are positive for a few basilar crackles, worse on the left posterior base. The findings and the impression was discussed with the patient. I attest to the documentation by the nurse practitioner. Time with Patient: Greater than 30
--- NOTE | 2017-11-10 09:03 | PN ---
PROGRESS NOTE Mr. Mitchell is a 77-year-old male with a known history of severe coronary artery disease, history of peripheral disease and carotid endarterectomy, history of hypertension, who presented with progressive fatigue, was noted to have severe hyperkalemia and worsening renal failure, underwent dialysis. He is feeling better today, although he has had some episode of chest discomfort on and off. He denies any dizziness or palpitation. He denies any nausea. He was evaluated in the past by the surgical team and felt to be a candidate anatomically to undergo surgery, but it was recommended to optimize his overall status. His left ventricular systolic function in May was quite poor, but apparently it has improved afterward. He denies any dizziness or palpitation. He denies any nausea. He continued be on IV nitroglycerin drip. Otherwise, he is on amiodarone 200 mg daily, aspirin once a day, amlodipine 5 mg daily, Coreg 25 mg twice a day, pravastatin 40 mg daily. PHYSICAL EXAMINATION: Blood pressure running in the 130s to 160s with a heart rate in the 70s. LUNGS: No wheezes. HEART: Regular rate and rhythm. S1, S2. No S3. No gallop appreciated with a systolic murmur. ABDOMEN: Soft, obese, nontender. Extremities with no significant edema. LAB DATA: Revealed BUN and creatinine 36 and 2.05. INR 1.4. Potassium 5.2, hemoglobin of 9.2. IMPRESSION: 1. Renal failure and hyperkalemia, probably worsened with the diuretics and the Aldactone, lisinopril, improving. 2. History of coronary artery disease, multivessel disease was evaluated for surgical intervention. 3. Hypertension. 4. History of chronic obstructive lung disease. 5. Status post carotid endarterectomy. 6. History of prior cardiomyopathy with improvement in left ventricular systolic function in the past. RECOMMENDATION: From the cardiac standpoint I will wean his IV nitroglycerin, initiate treatment with Ranexa and nitro paste. I will repeat his echocardiogram to evaluate the left ventricular systolic function. I will follow his renal function and potassium closely. The patient will need to be re-evaluated regarding the issue of surgical intervention because of the episode of chest discomfort. MMODL / IJN: [id number] /
[2017-11-10 10:13] LABS: Hemoglobin A1C 6.7 % (4.0-6.0)
[2017-11-10 11:16] LABS: T4, Free (Free Thyroxine) 1.37 ng/dL (0.78-2.19)
[2017-11-10 12:16] LABS: Glucose,Whole Blood 142 mg/dL (75-99)
[2017-11-10 12:21] LABS: Hepatitis B Surface AB- Quant 39.5 mIU/mL
--- NOTE | 2017-11-10 12:59 | CDI ---
Last Revision, February 2017 Documentation Clarification Form Date: 11/10/2017 12:44:28 PM From: Nedra Cervantes RN, CCDS Admit Date: 11/08/2017 5:26:00 AM Patient Name: Mo Mitchell Visit Number: [id number] ATTENTION: The Clinical Documentation Specialists (CDI) and [facility] Coding Staff appreciate your assistance in clarifying documentation. Please respond to the clarification below the line at the bottom and electronically sign. The CDI & [facility] Coding staff will review the response and follow-up if needed. Please note: Queries are made part of the Legal Health Record. If you have any questions, please contact the author of this message via ITS. Aidee Whitlock MD Atrial fibrillation is documented in the H&P and pulmonary progress notes. History/Risk Factors: CVA/TIA, PA, MARVEL, A-Fib, Cardiomyopathy with EF about 20%, ARF w CKD stage 3 Clinical Indicators: 11/08 H&P: Atrial fibrillation Amiodarone will be continued beta lizette was discontinued hold off on Dabigatrin for now because of her GFR being less than 30." EKG/telemetry: 11/09 Cardiology Consult: "EKG shows diffuse ST changes in the inferior lateral leads yesterday as well as this morning." Treatment: Apresoline 10mg IVP x1 Lasix 20 mg Ivp x1 followed by 40 mg IVP x1 Coreg 25 mg PO BID Pradaxa 150 mg BID Consults: Cardiology (made no mention of hx or current Atrial Fibrillation) In your professional opinion, can you please clarify the type of atrial fibrillation, if known? Chronic/Permanent Paroxysmal Persistent Other, please specify Unable to determine Please continue to document in your progress notes and discharge summary in order to capture severity of illness and risk of mortality. Include clinical findings that support your diagnosis. Paroxysmal MTDD
--- NOTE | 2017-11-10 15:03 | P.PN ---
Subjective Progress Note Date: 11/09/17 69-year-old gentleman admitted with the acute renal failure and elevated potassium patient underwent hemodialysis yesterday because of her continued potassium elevation. Patient's renal failure improved and potassium improved after hemodialysis. Patient received right inguinal dialysis catheter patient is quite a bit agitated because of the metabolic encephalopathy. Patient the renal failure is secondary to excessive diuretic therapy and nephrotoxic medications like lisinopril. All of which are being held. Patient is able to provide history but quite a bit agitated because he is uncomfortable his face. Objective - Vital Signs Vital signs: Vital Signs Temp 100.6 F H 11/10/17 08:00 Pulse 53 L 11/10/17 14:00 Resp 17 11/10/17 14:00 BP 131/48 11/10/17 14:00 Pulse Ox 95 11/10/17 14:00 Intake & Output 11/09/17 11/10/17 11/10/17 18:59 06:59 18:59 Intake Total 651.4 650 840.875 Output Total 2009 1475 875 Balance -1358.6 -825 -34.125 Weight 122.2 kg 122.2 kg Intake: IV 650 600 400 Sodium Chloride 0.9% 1, 650 600 400 000 ml @ 50 mls/hr IV . Q20H JOSÉ MIGUEL Rx#:[id number] Intake, IV Titration 1.4 200.875 Amount Nitroglycerin-D5w Pmx 50 1.4 200.875 mg In Dextrose/Water 1 250ml.bag @ Titrate IV . Q0M JOSÉ MIGUEL Rx#:[id number] Oral 50 240 Output: Urine 2009 1475 875 Other: Voiding Method Indwelling Catheter Indwelling Catheter Indwelling Catheter - Exam PHYSICAL EXAMINATION: GENERAL: The patient is alert and agitated, not in any acute distress. Well developed, well nourished. HEENT: Pupils are round and equally reacting to light. EOMI. No scleral icterus. No conjunctival pallor. Normocephalic, atraumatic. No pharyngeal erythema. No thyromegaly. CARDIOVASCULAR: S1 and S2 present. No murmurs, rubs, or gallops. PULMONARY: Chest is clear to auscultation, no wheezing or crackles. ABDOMEN: Soft, nontender, nondistended, normoactive bowel sounds. No palpable organomegaly. MUSCULOSKELETAL: No joint swelling or deformity. EXTREMITIES: No cyanosis, clubbing, or pedal edema. NEUROLOGICAL: Gross neurological examination did not reveal any focal deficits. SKIN: No rashes. - Labs CBC & Chem 7: 11/10/17 04:52 11/10/17 04:52 Labs: Abnormal Lab Results - Last 24 Hours (Table) 11/08/17 11/09/17 11/09/17 Range/Units 14:46 00:45 17:39 RBC (4.30-5.90) m/uL Hgb (13.0-17.5) gm/dL Hct (39.0-53.0) % RDW (11.5-15.5) % Plt Count (150-450) k/uL Lymphocytes # (1.0-4.8) k/uL PT (9.0-12.0) sec INR (<1.2) APTT (22.0-30.0) sec Potassium (3.5-5.1) mmol/L BUN (9-20) mg/dL Creatinine (0.66-1.25) mg/dL Glucose (74-99) mg/dL POC Glucose (mg/dL) 152 H (75-99) mg/dL Hemoglobin A1c 6.7 H (4.0-6.0) % TSH (0.465-4.680) mIU/L Hep Bs Antibody Reactive H (Non-Reactive) 11/09/17 11/10/17 11/10/17 Range/Units 20:18 04:52 04:52 RBC 2.95 L (4.30-5.90) m/uL Hgb 9.2 L (13.0-17.5) gm/dL Hct 29.4 L (39.0-53.0) % RDW 16.7 H (11.5-15.5) % Plt Count 139 L (150-450) k/uL Lymphocytes # 0.9 L (1.0-4.8) k/uL PT 12.9 H (9.0-12.0) sec INR 1.4 H (<1.2) APTT 39.8 H (22.0-30.0) sec Potassium (3.5-5.1) mmol/L BUN (9-20) mg/dL Creatinine (0.66-1.25) mg/dL Glucose (74-99) mg/dL POC Glucose (mg/dL) 140 H (75-99) mg/dL Hemoglobin A1c (4.0-6.0) % TSH (0.465-4.680) mIU/L Hep Bs Antibody (Non-Reactive) 11/10/17 11/10/17 11/10/17 Range/Units 04:52 04:52 07:34 RBC (4.30-5.90) m/uL Hgb (13.0-17.5) gm/dL Hct (39.0-53.0) % RDW (11.5-15.5) % Plt Count (150-450) k/uL Lymphocytes # (1.0-4.8) k/uL PT (9.0-12.0) sec INR (<1.2) APTT (22.0-30.0) sec Potassium 5.2 H (3.5-5.1) mmol/L BUN 36 H (9-20) mg/dL Creatinine 2.05 H (0.66-1.25) mg/dL Glucose 162 H (74-99) mg/dL POC Glucose (mg/dL) 163 H (75-99) mg/dL Hemoglobin A1c (4.0-6.0) % TSH 6.010 H (0.465-4.680) mIU/L Hep Bs Antibody (Non-Reactive) 11/10/17 Range/Units 12:15 RBC (4.30-5.90) m/uL Hgb (13.0-17.5) gm/dL Hct (39.0-53.0) % RDW (11.5-15.5) % Plt Count (150-450) k/uL Lymphocytes # (1.0-4.8) k/uL PT (9.0-12.0) sec INR (<1.2) APTT (22.0-30.0) sec Potassium (3.5-5.1) mmol/L BUN (9-20) mg/dL Creatinine (0.66-1.25) mg/dL Glucose (74-99) mg/dL POC Glucose (mg/dL) 142 H (75-99) mg/dL Hemoglobin A1c (4.0-6.0) % TSH (0.465-4.680) mIU/L Hep Bs Antibody (Non-Reactive) Assessment and Plan Plan: -Acute renal failure: Multifactorial and probably prerenal azotemia from excessive diuretic therapy which is being held at this time. Patient may need a repeat echocardiogram cardiology was consulted area patient repeat ejection fraction was around 55-60% from an echocardiogram that was done outside the [facility] system. Continue with IV fluids and bicarbonate. -Hyperkalemia: Secondary to lisinopril, aldactone and acute renal failure. Because of continued elevated potassium as per the progress with therapy patient has to have dialysis. -Metabolic encephalopathy: Secondary to acute renal failure and hospitalization in ICU delirium. -Congestive heart failure history of chronic systolic dysfunction not in acute exacerbated at this time patient's ejection fraction normalized apparently as per the patient. -chronic kidney disease stage II: Secondary to probably diabetic nephropathy and hypertensive nephrosclerosis -Hypertension -Hyperlipidemia 7 coronary artery disease -Sleep apnea morbid obesity continue CPAP machine -Gout allopurinol and colchicine will be held because of her severe renal dysfunction -Atrial fibrillation amiodarone will be continued beta lizette was discontinued hold off on Dabigatrin for now because of her GFR being less than 30. -Gastroesophageal reflux disease.
--- NOTE | 2017-11-10 15:06 | P.PN ---
Subjective 69-year-old gentleman admitted with the acute renal failure and elevated potassium patient underwent hemodialysis yesterday because of her continued potassium elevation. Patient's renal failure improved and potassium improved after hemodialysis. Patient received right inguinal dialysis catheter patient is quite a bit agitated because of the metabolic encephalopathy. Patient the renal failure is secondary to excessive diuretic therapy and nephrotoxic medications like lisinopril. All of which are being held. Patient is able to provide history but quite a bit agitated because he is uncomfortable his face. 11/10/2017 Patient agitation is better controlled with Haldol patient will be resumed on Dabigartin. Patient had a documented episode of low-grade fever. Since it's only 1 episode no further intervention at this time will hold off on Tylenol monitor if she has another episode of fever, we will do septic workup at that time chest x-ray did not show any pneumonia. Objective - Vital Signs Vital signs: Vital Signs Temp 100.6 F H 11/10/17 08:00 Pulse 53 L 11/10/17 14:00 Resp 17 11/10/17 14:00 BP 131/48 11/10/17 14:00 Pulse Ox 95 11/10/17 14:00 Intake & Output 11/09/17 11/10/17 11/10/17 18:59 06:59 18:59 Intake Total 651.4 650 840.875 Output Total 2009 1475 875 Balance -1358.6 -825 -34.125 Weight 122.2 kg 122.2 kg Intake: IV 650 600 400 Sodium Chloride 0.9% 1, 650 600 400 000 ml @ 50 mls/hr IV . Q20H JOSÉ MIGUEL Rx#:[id number] Intake, IV Titration 1.4 200.875 Amount Nitroglycerin-D5w Pmx 50 1.4 200.875 mg In Dextrose/Water 1 250ml.bag @ Titrate IV . Q0M JOSÉ MIGUEL Rx#:[id number] Oral 50 240 Output: Urine 2009 1475 875 Other: Voiding Method Indwelling Catheter Indwelling Catheter Indwelling Catheter - Exam PHYSICAL EXAMINATION: GENERAL: The patient is sleeping, not in any acute distress. Well developed, well nourished. HEENT: Pupils are round and equally reacting to light. EOMI. No scleral icterus. No conjunctival pallor. Normocephalic, atraumatic. No pharyngeal erythema. No thyromegaly. CARDIOVASCULAR: S1 and S2 present. No murmurs, rubs, or gallops. PULMONARY: Chest is clear to auscultation, no wheezing or crackles. ABDOMEN: Soft, nontender, nondistended, normoactive bowel sounds. No palpable organomegaly. MUSCULOSKELETAL: No joint swelling or deformity. EXTREMITIES: No cyanosis, clubbing, or pedal edema. NEUROLOGICAL: Unable to assess SKIN: No rashes. - Labs CBC & Chem 7: 11/10/17 04:52 11/10/17 04:52 Labs: Abnormal Lab Results - Last 24 Hours (Table) 11/08/17 11/09/17 11/09/17 Range/Units 14:46 00:45 17:39 RBC (4.30-5.90) m/uL Hgb (13.0-17.5) gm/dL Hct (39.0-53.0) % RDW (11.5-15.5) % Plt Count (150-450) k/uL Lymphocytes # (1.0-4.8) k/uL PT (9.0-12.0) sec INR (<1.2) APTT (22.0-30.0) sec Potassium (3.5-5.1) mmol/L BUN (9-20) mg/dL Creatinine (0.66-1.25) mg/dL Glucose (74-99) mg/dL POC Glucose (mg/dL) 152 H (75-99) mg/dL Hemoglobin A1c 6.7 H (4.0-6.0) % TSH (0.465-4.680) mIU/L Hep Bs Antibody Reactive H (Non-Reactive) 11/09/17 11/10/17 11/10/17 Range/Units 20:18 04:52 04:52 RBC 2.95 L (4.30-5.90) m/uL Hgb 9.2 L (13.0-17.5) gm/dL Hct 29.4 L (39.0-53.0) % RDW 16.7 H (11.5-15.5) % Plt Count 139 L (150-450) k/uL Lymphocytes # 0.9 L (1.0-4.8) k/uL PT 12.9 H (9.0-12.0) sec INR 1.4 H (<1.2) APTT 39.8 H (22.0-30.0) sec Potassium (3.5-5.1) mmol/L BUN (9-20) mg/dL Creatinine (0.66-1.25) mg/dL Glucose (74-99) mg/dL POC Glucose (mg/dL) 140 H (75-99) mg/dL Hemoglobin A1c (4.0-6.0) % TSH (0.465-4.680) mIU/L Hep Bs Antibody (Non-Reactive) 11/10/17 11/10/17 11/10/17 Range/Units 04:52 04:52 07:34 RBC (4.30-5.90) m/uL Hgb (13.0-17.5) gm/dL Hct (39.0-53.0) % RDW (11.5-15.5) % Plt Count (150-450) k/uL Lymphocytes # (1.0-4.8) k/uL PT (9.0-12.0) sec INR (<1.2) APTT (22.0-30.0) sec Potassium 5.2 H (3.5-5.1) mmol/L BUN 36 H (9-20) mg/dL Creatinine 2.05 H (0.66-1.25) mg/dL Glucose 162 H (74-99) mg/dL POC Glucose (mg/dL) 163 H (75-99) mg/dL Hemoglobin A1c (4.0-6.0) % TSH 6.010 H (0.465-4.680) mIU/L Hep Bs Antibody (Non-Reactive) 11/10/17 Range/Units 12:15 RBC (4.30-5.90) m/uL Hgb (13.0-17.5) gm/dL Hct (39.0-53.0) % RDW (11.5-15.5) % Plt Count (150-450) k/uL Lymphocytes # (1.0-4.8) k/uL PT (9.0-12.0) sec INR (<1.2) APTT (22.0-30.0) sec Potassium (3.5-5.1) mmol/L BUN (9-20) mg/dL Creatinine (0.66-1.25) mg/dL Glucose (74-99) mg/dL POC Glucose (mg/dL) 142 H (75-99) mg/dL Hemoglobin A1c (4.0-6.0) % TSH (0.465-4.680) mIU/L Hep Bs Antibody (Non-Reactive) Assessment and Plan Plan: -Acute renal failure: Multifactorial and probably prerenal azotemia from excessive diuretic therapy which is being held at this time. Patient may need a repeat echocardiogram cardiology was consulted area patient repeat ejection fraction was around 55-60% from an echocardiogram that was done outside the [facility] system. Continue with IV fluids and bicarbonate. -Hyperkalemia: Secondary to lisinopril, aldactone and acute renal failure. Because of continued elevated potassium as per the progress with therapy patient has to have dialysis. -Metabolic encephalopathy: Secondary to acute renal failure and hospitalization in ICU delirium. -Congestive heart failure history of chronic systolic dysfunction not in acute exacerbated at this time patient's ejection fraction normalized apparently as per the patient. -chronic kidney disease stage II: Secondary to probably diabetic nephropathy and hypertensive nephrosclerosis -Hypertension -Hyperlipidemia 7 coronary artery disease -Sleep apnea morbid obesity continue CPAP machine -Gout allopurinol and colchicine will be held because of her severe renal dysfunction -Atrial fibrillation amiodarone will be continued beta lizette was discontinued hold off on Dabigatrin for now because of her GFR being less than 30. -Gastroesophageal reflux disease.
[2017-11-10] MEDS ORDERED: FUROSEMIDE 10 MG/ML 4 ML VIAL IV STA (15:29)
--- NOTE | 2017-11-10 15:51 | PN ---
PROGRESS NOTE The patient is seen for followup of acute kidney injury, hyperkalemia. Patient's potassium was staying up at about 7 and 8.6 mg/dL. He was dialyzed. Currently, patient has good urine output. His potassium was down to 4.6 yesterday and today it is at 5.2. Renal function is improved as well with creatinine coming down from 4.2 on initial admission to 2.05. PHYSICAL EXAMINATION: Patient is currently on BiPAP. However, he had been combative earlier. He has now been more calm. Blood pressure this morning was 115/43, heart rate 52 per minute. He is afebrile. Examination of the heart: S1, S2. Examination of the lungs: Bilateral breath sounds are heard. Abdomen is soft, morbidly obese. Examination lower extremities shows no significant edema. RECREATIONAL THERAPY AIDE exam cannot be performed in detail. LABS: Sodium 140, potassium 5.2, chloride 106, BUN 36, serum creatinine 2.05, phosphorus 3.8, magnesium 2.0. TSH was 6.01. Hemoglobin 9.2 g/dL. ASSESSMENT: 1. Acute kidney injury, acute tubular necrosis, currently nonoliguric with the good urine output. I will hold off on dialysis and repeat another potassium level this evening. Currently patient is not on any nephrotoxic medications. He is maintained on IV fluids at 50 mL/hour, which I will continue. 2. Severe hyperkalemia associated with renal failure status post hemodialysis x2. I will hold off on dialysis for now. The patient has an excellent urine output. He is not on any medications to induce the hyperkalemia. I will give him a dose of Lasix as well as IV. We will control the blood sugars as well and avoid blood sugars higher than 200 mg/dL. 3. Confusion, encephalopathy, currently improving, possibly a component from renal failure as well. 4. Congestive heart failure with ejection fraction less than 20% on previous echocardiogram. PLAN: Hold off on dialysis. Continue fluids at 50 mL an hour. Will give 1 dose of IV Lasix. Repeat potassium this evening and I doubt that patient will need further dialysis treatment for the hyperkalemia. He currently has excellent urine output. MMODL / IJN: [id number] /
[2017-11-10] MEDS: SODIUM CHLORIDE 0.9% 1,000 ML IV SCH (16:46)
[2017-11-10 17:42] LABS: Glucose,Whole Blood 154 mg/dL (75-99)
[2017-11-10 20:16] LABS: Glucose,Whole Blood 179 mg/dL (75-99)
[2017-11-10] MEDS: DABIGATRAN 75 MG CAP PO SCH (20:28)
[2017-11-10] MEDS: PRAVASTATIN SODIUM 80 MG TAB PO SCH (20:28)
[2017-11-11] MEDS: ALPRAZolam 0.5 MG TAB PO PRN (01:54)
[2017-11-11 05:23] LABS: Anisocytosis Slight; Basophils % (A) 0 %; Eosinophils # (A) 0.1 k/uL (0-0.7); Eosinophils % (A) 1 %; HCT 29.7 % (39.0-53.0); HGB 9.2 gm/dL (13.0-17.5); Hypochromasia Slight; Lymphocytes # (A) 1.2 k/uL (1.0-4.8); Lymphocytes % (A) 14 %; MCHC 31.1 g/dL (31.0-37.0); MCV 99.6 fL (80.0-100.0); Macrocytosis Slight; Mean Platelet Volume 9.3; Monocytes # (A) 0.6 k/uL (0-1.0); Monocytes % (A) 7 %; Neutrophils # (A) 6.2 k/uL (1.3-7.7); Neutrophils % (A) 75 %; Platelet Count 150 k/uL (150-450); RBC 2.98 m/uL (4.30-5.90); RDW 16.5 % (11.5-15.5); WBC 8.3 k/uL (3.8-10.6)
[2017-11-11 05:30] LABS: INR 1.4 (<1.2); Partial Thromboplastin Time 39.5 sec (22.0-30.0); Prothrombin Time 13.1 sec (9.0-12.0)
[2017-11-11 06:16] LABS: Phosphorus 4.1 mg/dL (2.5-4.5)
--- NOTE | 2017-11-11 07:10 | XR ---
EXAMINATION TYPE: XR chest 1V portable DATE OF EXAM: 11/11/2017 Comparison: 11/10/2017 Clinical History: 77-year-old male shortness of breath Findings: Heart borderline enlarged. Mild diffuse interstitial prominence. Some increasing patchy bibasilar den sities. Left base underpenetrated and not well assessed. Impression: Interstitial prominence, possible mild pulmonary vascular congestion. Some increasing patchy bibasila r atelectasis or infiltrates.
[2017-11-11] MEDS: ALBUTEROL NEBULIZED 2.5 MG/3 ML INHALATION SCH ×4 (07:15→20:11)
[2017-11-11 07:28] LABS: Glucose,Whole Blood 125 mg/dL (75-99)
[2017-11-11] MEDS: INSULIN ASPART 100 UNIT/ML 1 ML 10 ML VIAL SQ SCH ×4 (07:29→20:15)
[2017-11-11] MEDS: ASPIRIN 81 MG PO SCH (08:06)
[2017-11-11] MEDS: PREGABALIN 75 MG CAP PO SCH ×2 (08:06→20:15)
[2017-11-11] MEDS: DABIGATRAN 75 MG CAP PO SCH ×2 (08:06→20:15)
[2017-11-11] MEDS: FAMOTIDINE 20 MG TAB PO SCH (08:06)
[2017-11-11] MEDS: TAMSULOSIN 0.4 MG CAP.ER.24H PO SCH ×2 (08:06→20:15)
[2017-11-11] MEDS: amLODIPine 5 MG TAB PO SCH (08:06)
[2017-11-11] MEDS: RANOLAZINE 500 MG TAB.ER.12H PO SCH ×2 (08:06→20:15)
[2017-11-11] MEDS: NITROGLYCERIN OINT 1 INCH/GM PACKET TOPICAL SCH ×2 (08:06→17:51)
[2017-11-11] MEDS: AMIODARONE 200 MG TAB PO SCH (08:06)
[2017-11-11] MEDS: CARVEDILOL 12.5 MG TAB PO SCH ×2 (08:06→17:51)
--- NOTE | 2017-11-11 08:33 | P.PN ---
Subjective Progress Note Date: 11/11/17 Principal diagnosis: Acute on chronic kidney injury, multifactorial This is a 77-year-old white male with history of multiple medical problems including coronary artery disease, previous [place], systolic dysfunction, ejection fraction is usually about 20%. However follow-up echocardiogram on this patient according to the showed significant improvement. At any rate the patient was recently admitted to the hospital with acute congestive heart failure, and he was treated with mostly with aggressive doses of diuretics including Lasix Aldactone and metolazone. He was also on lisinopril for hypertension. Over the last few days, the patient has been complaining of weakness. Brought into the ER, and workup revealed evidence of hyperkalemia with a potassium of 8.6, worsening renal failure, he has a baseline creatinine of 1.4. Patient was treated with multiple meds including IV insulin, albuterol , Kayexalate, Lasix, and he also received IV calcium gluconate. Chest x-ray showed evidence of mild interstitial changes, could be underlying fibrosis or could be a component of interstitial edema. Patient had no cough, no wheezing, no fever, no chills, no hemoptysis. His creatinine up on this admission was noted to be 4.2. And this morning is down to 3.8. Patient is a friend of Dr. Kinney and he expressed recently interest to follow-up with Dr. Kinney as his primary care physician, supposedly Dr. Kinney accepted to take care of his medical problems on outpatient basis. Repeat potassium this morning is 6.3. Patient is still receiving treatment as per nephrology for his hyperkalemia. During my evaluation, the patient voiced mostly concerns about being weak, denies any cough, no wheezing, no fever, no chills, no hemoptysis, no chest pain , no nausea, no vomiting, no abdominal pain. He was mostly generally weak. Patient was reevaluated today on 11/09/2017, underwent dialysis catheter placement yesterday placed in the right groin, and he was dialyzed last night. Patient is feeling a bit better today, and his labs seem to be significantly improved. Potassium is down to 5.7 BUN is 67 creatinine is 2.46. PTT is 46. CBC is relatively normal hemoglobin however is low at 9.6. Chest x-ray on admission showed coarse interstitial markings otherwise unremarkable. Urine output has been excellent, patient has non-oligoric renal failure. Remains on normal saline at 50 ML per hour. Patient is known to have history of chronic systolic congestive heart failure, ejection fraction is 20%. On 11/10/2017 patient seen in follow-up in the intensive care unit. He is alert and awake, resting in bed, he did have episode of chest pain this morning , he remains on nitroglycerin drip currently at 25 mics per minute, 0.9 normal saline is at a rate of 50 ML per hour. Patient had hemodialysis treatment yesterday, infiltration, no fluid was removed per nursing report. Today's labs show improvement of the renal profile BUN is down to 36, creatinine is 2.05. Patient has a Boothe in place, and he is maintaining 125-150 ML per hour urine. Denies any shortness of breath, today's chest x-ray shows no acute pulmonary process. Lawrence on 4 L per nasal cannula is 94%, grade fever this morning, with 100.6 temperature. Right groin hemodialysis catheter is clean dry and intact. Trace edema in bilateral tibial areas. No leukocytosis, hemoglobin is 9.2, INR is 1.4, potassium is 5.2. Cardiology is following, echocardiogram has been ordered, and is pending at this time. On 11/11/2017 patient seen in follow-up in the intensive care unit. Awake and alert, in no acute distress, no chest pain, nitroglycerin drip has been discontinued per cardiology, patient was started on Ranexa and Nitropaste. Pulse ox on 4 L per nasal cannula is 100%, patient is afebrile, lung sounds are relatively clear, with the exception of a few scattered rales at the left base. Today's chest x-ray has been reviewed by Dr. Dr. Kinney, and shows interstitial prominence, mild pulmonary vascular congestion, consistent with mild CHF. Patient did not have any hemodialysis treatment yesterday, Boothe catheter is in place, and patient is making artery amount of yellow urine, a dose of Lasix was given yesterday per nephrology. Patient is in -664 mL net fluid balance over the last 24 hours. 0.9 normal saline infusing at a rate of 50 ML per hour. Today's labs were reviewed, WBC is 8.3, hemoglobin is 9.2, INR is 1.4, electrolytes are within normal limits, BUN is 43, creatinine is 2.5, there has been slight worsening of his renal profile. Patient is very weak, has not been out of bed, physical therapy has been consulted. Otherwise remains stable, and is appropriate for transfer out of ICU today to stepdown unit. Objective - Vital Signs Vital signs: Vital Signs Temp 98.3 F 11/11/17 08:00 Pulse 61 11/11/17 08:00 Resp 21 11/11/17 08:00 BP 134/53 11/11/17 08:00 Pulse Ox 100 11/11/17 08:00 Intake & Output 11/10/17 11/11/17 11/11/17 18:59 06:59 18:59 Intake Total 1640.875 600 460 Output Total 1575 1330 240 Balance 65.875 -730 220 Weight 122.2 kg 122 kg 122 kg Intake: IV 600 600 100 Sodium Chloride 0.9% 1, 600 600 100 000 ml @ 50 mls/hr IV . Q20H JOSÉ MIGUEL Rx#:[id number] Intake, IV Titration 200.875 Amount Nitroglycerin-D5w Pmx 50 200.875 mg In Dextrose/Water 1 250ml.bag @ Titrate IV . Q0M JOSÉ MIGUEL Rx#:[id number] Oral 840 360 Output: Urine 1575 1330 240 Other: Voiding Method Indwelling Catheter Indwelling Catheter Indwelling Catheter # Bowel Movements 1 - Exam GENERAL EXAM: Alert, pleasant 77-year-old obese white male comfortable in no apparent distress. HEAD: Normocephalic/atraumatic. EYES: Normal reaction of pupils, equal size. Conjunctiva pink, sclera white. NOSE: Clear with pink turbinates. THROAT: No erythema or exudates. NECK: No masses, no JVD, no thyroid enlargement, no adenopathy. CHEST: No chest wall deformity. Symmetrical expansion. LUNGS: Bibasilar crackles, more at the left base CVS: Regular rate and rhythm, normal S1 and S2, no gallops, no murmurs, no rubs ABDOMEN: Soft, nontender. No hepatosplenomegaly, normal bowel sounds, no guarding or rigidity. EXTREMITIES: No clubbing, trace pretibial edema, no cyanosis, 2+ pulses and upper and lower extremities. Chronic venous stasis changes in bilateral lower extremities. Right groin hemodialysis catheter is clean dry and intact. MUSCULOSKELETAL: Muscle strength and tone normal. SPINE: No scoliosis or deformity SKIN: No rashes CENTRAL NERVOUS SYSTEM: Alert and oriented -3. No focal deficits, tone is normal in all 4 extremities. PSYCHIATRIC: Alert and oriented -3. Appropriate affect. Intact judgment and insight. - Labs CBC & Chem 7: 11/11/17 05:07 11/11/17 05:07 Labs: Abnormal Lab Results - Last 24 Hours (Table) 11/08/17 11/09/17 11/10/17 Range/Units 14:46 00:45 04:52 RBC (4.30-5.90) m/uL Hgb (13.0-17.5) gm/dL Hct (39.0-53.0) % RDW (11.5-15.5) % PT (9.0-12.0) sec INR (<1.2) APTT (22.0-30.0) sec Potassium (3.5-5.1) mmol/L BUN (9-20) mg/dL Creatinine (0.66-1.25) mg/dL Glucose (74-99) mg/dL POC Glucose (mg/dL) (75-99) mg/dL Hemoglobin A1c 6.7 H (4.0-6.0) % TSH 6.010 H (0.465-4.680) mIU/L Hep Bs Antibody Reactive H (Non-Reactive) 11/10/17 11/10/17 11/10/17 Range/Units 12:15 17:40 18:21 RBC (4.30-5.90) m/uL Hgb (13.0-17.5) gm/dL Hct (39.0-53.0) % RDW (11.5-15.5) % PT (9.0-12.0) sec INR (<1.2) APTT (22.0-30.0) sec Potassium 5.2 H (3.5-5.1) mmol/L BUN (9-20) mg/dL Creatinine (0.66-1.25) mg/dL Glucose (74-99) mg/dL POC Glucose (mg/dL) 142 H 154 H (75-99) mg/dL Hemoglobin A1c (4.0-6.0) % TSH (0.465-4.680) mIU/L Hep Bs Antibody (Non-Reactive) 11/10/17 11/11/17 11/11/17 Range/Units 20:14 05:07 05:07 RBC 2.98 L (4.30-5.90) m/uL Hgb 9.2 L (13.0-17.5) gm/dL Hct 29.7 L (39.0-53.0) % RDW 16.5 H (11.5-15.5) % PT (9.0-12.0) sec INR (<1.2) APTT (22.0-30.0) sec Potassium (3.5-5.1) mmol/L BUN 43 H (9-20) mg/dL Creatinine 2.50 H (0.66-1.25) mg/dL Glucose 131 H (74-99) mg/dL POC Glucose (mg/dL) 179 H (75-99) mg/dL Hemoglobin A1c (4.0-6.0) % TSH (0.465-4.680) mIU/L Hep Bs Antibody (Non-Reactive) 11/11/17 11/11/17 Range/Units 05:07 07:26 RBC (4.30-5.90) m/uL Hgb (13.0-17.5) gm/dL Hct (39.0-53.0) % RDW (11.5-15.5) % PT 13.1 H (9.0-12.0) sec INR 1.4 H (<1.2) APTT 39.5 H (22.0-30.0) sec Potassium (3.5-5.1) mmol/L BUN (9-20) mg/dL Creatinine (0.66-1.25) mg/dL Glucose (74-99) mg/dL POC Glucose (mg/dL) 125 H (75-99) mg/dL Hemoglobin A1c (4.0-6.0) % TSH (0.465-4.680) mIU/L Hep Bs Antibody (Non-Reactive) Assessment and Plan Plan: Assessment: 1 acute on chronic kidney injury, most likely secondary to diuretics in combination with lisinopril. This is mostly a prerenal type of picture. Improving 2 acute hyperkalemia secondary to Aldactone and lisinopril. Along with acute on chronic renal failure secondary to nephrosclerosis. Improved 3 multiple comorbidities including cardiomyopathy, and LV dysfunction, ejection fraction about 20% COPD, insulin-dependent diabetes, previous right carotid endarterectomy, postoperative cardiac arrest and respiratory failure requiring intubation and mechanical ventilation atrial fibrillation, obstructive sleep apnea syndrome, gout, previous cardiac ablation and cardiac catheterization previous pericardiocentesis Recommendation: Continue current medical treatment, occurrence of chest pain, no shortness of breath, but it sounds are stable. Patient is producing urine, did not require hemodialysis treatment yesterday. He is maintaining negative fluid balance, maintaining stable oxygenation. Patient can be transferred to selective care unit today, consult physical therapy. His chest x-ray has been reviewed, and shows changes consistent with mild CHF. We'll continue to follow. I performed a history & physical examination of the patient and discussed their management with my nurse practitioner, Pushpa Maki. I reviewed the nurse practitioner's note and agree with the documented findings and plan of care. Lung sounds are positive for a few basilar crackles, worse on the left posterior base. The findings and the impression was discussed with the patient. I attest to the documentation by the nurse practitioner. Time with Patient: Greater than 30
--- NOTE | 2017-11-11 09:46 | ECHOF ---
Referral Reason:cad MEASUREMENTS -------- HEIGHT: 175.3 cm WEIGHT: 127.0 kg BP: 115/43 RVIDd: 3.4 cm (< 3.3) IVSd: 1.4 cm (0.6 - 1.1) LVIDd: 4.7 cm (3.9 - 5.3) LVPWd: 1.4 cm (0.6 - 1.1) IVSs: 1.7 cm LVIDs: 3.4 cm LVPWs: 1.8 cm LA Diam: 4.1 cm (2.7 - 3.8) LAESV Index (A-L): 47.05 ml/m Ao Diam: 3.5 cm (2.0 - 3.7) AV Cusp: 1.7 cm (1.5 - 2.6) LA Diam: 4.6 cm (2.7 - 3.8) MV EXCURSION: 15.662 mm (> 18.000) MV EF SLOPE: 83 mm/s (70 - 150) EPSS: 0.2 cm MV E Otis: 0.85 m/s MV DecT: 170 ms MV A Otis: 0.57 m/s MV E/A Ratio: 1.48 AV maxP.16 mmHg AV meanP.01 mmHg FINDINGS -------- Sinus rhythm. Morbid Obesity The left ventricular size is normal. There is mild concentric left ventricular hypertrophy. Overa ll left ventricular systolic function is low-normal with, an EF between 50 - 55 %. The right ventricle is normal in size. The left atrial size is normal. The right atrial size is normal. 5.0mg OF Lumason UTLIZED: 2 OR MORE WALL SEGMENTS NOT VISUALIZED. There is mild aortic valve sclerosis. There is no evidence of aortic regurgitation. Mild mitral annular calcification present. Mild mitral regurgitation is present. Mild tricuspid regurgitation present. There is no evidence of pulmonary hypertension. The right v entricular systolic pressure, as measured by Doppler, is {RVSP}. There is no pulmonic regurgitation present. The aortic root size is normal. There is no pericardial effusion. CONCLUSIONS -------- 1. Morbid Obesity 2. The left ventricular size is normal. 3. There is mild concentric left ventricular hypertrophy. 4. Overall left ventricular systolic function is low-normal with, an EF between 50 - 55 %. 5. The right ventricle is normal in size. 6. The left atrial size is normal. 7. The right atrial size is normal. 8. 5.0mg OF Lumason UTLIZED: 2 OR MORE WALL SEGMENTS NOT VISUALIZED. 9. There is mild aortic valve sclerosis. 10. Mild mitral annular calcification present. 11. Mild mitral regurgitation is present. 12. Mild tricuspid regurgitation present. 13. There is no evidence of pulmonary hypertension. 14. The right ventricular systolic pressure, as measured by Doppler, is {RVSP}. 15. There is no pulmonic regurgitation present. 16. The aortic root size is normal. 17. There is no pericardial effusion. AUTOMATION TECHNICIAN: Melina Barker RDCS
[2017-11-11 12:04] LABS: Glucose,Whole Blood 183 mg/dL (75-99)
--- NOTE | 2017-11-11 12:44 | P.PN ---
Subjective 69-year-old gentleman admitted with the acute renal failure and elevated potassium patient underwent hemodialysis yesterday because of her continued potassium elevation. Patient's renal failure improved and potassium improved after hemodialysis. Patient received right inguinal dialysis catheter patient is quite a bit agitated because of the metabolic encephalopathy. Patient the renal failure is secondary to excessive diuretic therapy and nephrotoxic medications like lisinopril. All of which are being held. Patient is able to provide history but quite a bit agitated because he is uncomfortable his face. 11/10/2017 Patient agitation is better controlled with Haldol patient will be resumed on Dabigartin. Patient had a documented episode of low-grade fever. Since it's only 1 episode no further intervention at this time will hold off on Tylenol monitor if she has another episode of fever, we will do septic workup at that time chest x-ray did not show any pneumonia. 11/11/2017 Patient is much less agitated creatinine remains at 2.5. Did not receive hemodialysis does have good urine output Objective - Vital Signs Vital signs: Vital Signs Temp 98.3 F 11/11/17 08:00 Pulse 46 L 11/11/17 10:00 Resp 16 11/11/17 10:00 BP 128/46 11/11/17 10:00 Pulse Ox 96 11/11/17 10:00 Intake & Output 11/10/17 11/11/17 11/11/17 18:59 06:59 18:59 Intake Total 1640.875 600 510 Output Total 1575 1330 300 Balance 65.875 -730 210 Weight 122.2 kg 122 kg 122 kg Intake: IV 600 600 150 Sodium Chloride 0.9% 1, 600 600 150 000 ml @ 50 mls/hr IV . Q20H [facility] Rx#:[id number] Intake, IV Titration 200.875 Amount Nitroglycerin-D5w Pmx 50 200.875 mg In Dextrose/Water 1 250ml.bag @ Titrate IV . Q0M [facility] Rx#:[id number] Oral 840 360 Output: Urine 1575 1330 300 Other: Voiding Method Indwelling Catheter Indwelling Catheter Indwelling Catheter # Bowel Movements 1 - Exam PHYSICAL EXAMINATION: GENERAL: The patient is sleeping, not in any acute distress. Well developed, well nourished. HEENT: Pupils are round and equally reacting to light. EOMI. No scleral icterus. No conjunctival pallor. Normocephalic, atraumatic. No pharyngeal erythema. No thyromegaly. CARDIOVASCULAR: S1 and S2 present. No murmurs, rubs, or gallops. PULMONARY: Chest is clear to auscultation, no wheezing or crackles. ABDOMEN: Soft, nontender, nondistended, normoactive bowel sounds. No palpable organomegaly. MUSCULOSKELETAL: No joint swelling or deformity. EXTREMITIES: No cyanosis, clubbing, or pedal edema. NEUROLOGICAL: Unable to assess SKIN: No rashes. - Labs CBC & Chem 7: 11/11/17 05:07 11/11/17 05:07 Labs: Abnormal Lab Results - Last 24 Hours (Table) 11/08/17 11/09/17 11/10/17 Range/Units 14:46 00:45 17:40 RBC (4.30-5.90) m/uL Hgb (13.0-17.5) gm/dL Hct (39.0-53.0) % RDW (11.5-15.5) % PT (9.0-12.0) sec INR (<1.2) APTT (22.0-30.0) sec Potassium (3.5-5.1) mmol/L BUN (9-20) mg/dL Creatinine (0.66-1.25) mg/dL Glucose (74-99) mg/dL POC Glucose (mg/dL) 154 H (75-99) mg/dL Hemoglobin A1c 6.7 H (4.0-6.0) % Hep Bs Antibody Reactive H (Non-Reactive) 11/10/17 11/10/17 11/11/17 Range/Units 18:21 20:14 05:07 RBC 2.98 L (4.30-5.90) m/uL Hgb 9.2 L (13.0-17.5) gm/dL Hct 29.7 L (39.0-53.0) % RDW 16.5 H (11.5-15.5) % PT (9.0-12.0) sec INR (<1.2) APTT (22.0-30.0) sec Potassium 5.2 H (3.5-5.1) mmol/L BUN (9-20) mg/dL Creatinine (0.66-1.25) mg/dL Glucose (74-99) mg/dL POC Glucose (mg/dL) 179 H (75-99) mg/dL Hemoglobin A1c (4.0-6.0) % Hep Bs Antibody (Non-Reactive) 11/11/17 11/11/17 11/11/17 Range/Units 05:07 05:07 07:26 RBC (4.30-5.90) m/uL Hgb (13.0-17.5) gm/dL Hct (39.0-53.0) % RDW (11.5-15.5) % PT 13.1 H (9.0-12.0) sec INR 1.4 H (<1.2) APTT 39.5 H (22.0-30.0) sec Potassium (3.5-5.1) mmol/L BUN 43 H (9-20) mg/dL Creatinine 2.50 H (0.66-1.25) mg/dL Glucose 131 H (74-99) mg/dL POC Glucose (mg/dL) 125 H (75-99) mg/dL Hemoglobin A1c (4.0-6.0) % Hep Bs Antibody (Non-Reactive) 11/11/17 Range/Units 11:54 RBC (4.30-5.90) m/uL Hgb (13.0-17.5) gm/dL Hct (39.0-53.0) % RDW (11.5-15.5) % PT (9.0-12.0) sec INR (<1.2) APTT (22.0-30.0) sec Potassium (3.5-5.1) mmol/L BUN (9-20) mg/dL Creatinine (0.66-1.25) mg/dL Glucose (74-99) mg/dL POC Glucose (mg/dL) 183 H (75-99) mg/dL Hemoglobin A1c (4.0-6.0) % Hep Bs Antibody (Non-Reactive) Assessment and Plan Plan: -Acute renal failure: Multifactorial and probably prerenal azotemia from excessive diuretic therapy which is being held at this time. Patient may need a repeat echocardiogram cardiology was consulted area patient repeat ejection fraction was around 55-60% from an echocardiogram that was done outside the [facility] system. Continue with IV fluids and bicarbonate. -Hyperkalemia: Secondary to lisinopril, aldactone and acute renal failure. Because of continued elevated potassium as per the progress with therapy patient has to have dialysis. -Metabolic encephalopathy: Secondary to acute renal failure and hospitalization in ICU delirium. -Congestive heart failure history of chronic systolic dysfunction not in acute exacerbated at this time patient's ejection fraction normalized apparently as per the patient. -chronic kidney disease stage II: Secondary to probably diabetic nephropathy and hypertensive nephrosclerosis -Hypertension -Hyperlipidemia 7 coronary artery disease -Sleep apnea morbid obesity continue CPAP machine -Gout allopurinol and colchicine will be held because of her severe renal dysfunction -Atrial fibrillation amiodarone will be continued beta lizette was discontinued hold off on Dabigatrin for now because of her GFR being less than 30. -Gastroesophageal reflux disease.
--- NOTE | 2017-11-11 16:50 | PN ---
PROGRESS NOTE Patient is seen for followup for acute kidney injury and severe hyperkalemia. He has had 2 treatments of hemodialysis. The potassium is significantly improved. The indication for dialysis was mainly the hyperkalemia. Currently, patient has good urine output. He is maintained on IV fluids at about 50 mL an hour. PHYSICAL EXAMINATION: This morning, patient is maintained on BiPAP. He is comfortable. His mentation has improved. Blood pressure this morning was 123/50, heart rate about 55-57 per minute. Patient is afebrile. Examination of the heart S1, S2. Examination lungs bilateral breath sounds are heard. Abdomen is soft, obese, nontender. Examination lower extremity shows no evidence of edema. PRESENTATION MANAGER exam is grossly intact. Patient moving all 4 extremities. LAB: Show sodium 139, potassium 5.0, chloride 107, BUN 43, serum creatinine 2.5, hemoglobin 9.2 g/dL. ASSESSMENT: 1. Acute kidney injury, acute tubular necrosis on initial admission, currently nonoliguric. Serum creatinine is slightly higher today. The patient's previous creatinine had been after dialysis. We will continue to monitor renal function for now. There is no need to repeat dialysis at this point. 2. Hyperkalemia associated with acute kidney injury, currently significantly improved. Maintain patient on low-potassium diet. The patient has good urine output. 3. Altered mentation, currently improved since admission. 4. Congestive heart failure, currently not in severe volume overload. However, I will discontinue the IV fluids and maintain adequate oral intake. 5. Atrial fibrillation, maintained on anticoagulation and amiodarone. 6. Hypertension. Continue with current regimen. PLAN: DC IV fluids. Repeat labs in a.m. Avoid hypotension and hold off on dialysis for now. MMODL / IJN: [id number] /
[2017-11-11 17:17] LABS: Glucose,Whole Blood 143 mg/dL (75-99)
--- NOTE | 2017-11-11 18:05 | PN ---
PROGRESS NOTE This is a gentleman with a history of acute kidney injury; also has CAD triple-vessel disease and was considering bypass surgery, but medical condition has deteriorated overall and this is why he has been admitted to the hospital. No recent acute myocardial injury at this time. His renal function is also improving. He is making urine. Vitals are stable. S1, S2 heard normally. Short systolic murmur noted. Lungs reveal improved air entry. Abdomen and lower extremity exam otherwise is unchanged. MMODL / IJN: [id number] /
[2017-11-11 20:07] LABS: Glucose,Whole Blood 218 mg/dL (75-99)
[2017-11-11] MEDS: PRAVASTATIN SODIUM 80 MG TAB PO SCH (20:15)
[2017-11-12] MEDS: NITROGLYCERIN OINT 1 INCH/GM PACKET TOPICAL SCH ×3 (00:14→15:43)
[2017-11-12] MEDS: ALPRAZolam 0.5 MG TAB PO PRN (00:21)
[2017-11-12 05:44] LABS: Anisocytosis Slight; Basophils % (A) 0 %; Eosinophils # (A) 0.3 k/uL (0-0.7); Eosinophils % (A) 4 %; HCT 30.6 % (39.0-53.0); HGB 9.2 gm/dL (13.0-17.5); Hypochromasia Moderate; Lymphocytes # (A) 1.1 k/uL (1.0-4.8); Lymphocytes % (A) 14 %; MCH 30.1 pg (25.0-35.0); MCHC 30.1 g/dL (31.0-37.0); Macrocytosis Slight; Mean Platelet Volume 8.8; Monocytes # (A) 0.6 k/uL (0-1.0); Monocytes % (A) 7 %; Neutrophils # (A) 5.3 k/uL (1.3-7.7); Neutrophils % (A) 71 %; Platelet Count 149 k/uL (150-450); RBC 3.06 m/uL (4.30-5.90); RDW 16.3 % (11.5-15.5); WBC 7.5 k/uL (3.8-10.6)
[2017-11-12 05:47] LABS: INR 1.4 (<1.2); Partial Thromboplastin Time 43.3 sec (22.0-30.0)
[2017-11-12 05:51] LABS: Calcium 9.1 mg/dL (8.4-10.2); Magnesium 2.1 mg/dL (1.6-2.3); Phosphorus 4.2 mg/dL (2.5-4.5); Potassium 5.1 mmol/L (3.5-5.1)
[2017-11-12] MEDS: CARVEDILOL 12.5 MG TAB PO SCH (07:08)
[2017-11-12 07:31] LABS: Glucose,Whole Blood 180 mg/dL (75-99)
--- NOTE | 2017-11-12 07:41 | XR ---
EXAMINATION TYPE: XR chest 1V portable DATE OF EXAM: 11/12/2017 COMPARISON: 11/11/2017 INDICATION: Short of breath TECHNIQUE: Single frontal view of the chest is obtained. FINDINGS: The heart size is normal. The pulmonary vasculature is normal. The lungs are clear. IMPRESSION: 1. No acute pulmonary process.
[2017-11-12] MEDS: ALBUTEROL NEBULIZED 2.5 MG/3 ML INHALATION SCH ×4 (07:44→20:15)
[2017-11-12] MEDS: INSULIN ASPART 100 UNIT/ML 1 ML 10 ML VIAL SQ SCH ×4 (07:57→21:30)
--- NOTE | 2017-11-12 08:31 | P.PN ---
Subjective Progress Note Date: 11/12/17 On 11/12/2017 I'm seeing this patient for a follow-up. As mentioned is a 77- year-old male patient with known history of coronary artery disease, previous DE , congestion heart failure , and chronic renal failure in addition to diabetes mellitus and the patient has been on insulin pump, carotid artery disease, peripheral neuropathy, sleep apnea and chronic renal failure. The patient was hospitalized because of generalized weakness, exacerbation of CHF and acute kidney injury on top of chronic renal failure. During the course of this treatment, the patient went into progressive renal failure requiring hemodialysis where a few sessions of hemodialysis performed and ultimately the patient started picking up his urine output and currently is off dialysis for the past 3 days. The renal function steadily continues to improve and is down to 2.05 and this morning is up to 2.5. Noted the patient has been producing urine output and he has been a negative fluid balance. Fluid balance 4 2017 was -5.7 L, 11/10/2017 was -2.1 L and 11/11/2017 and was -664 mL. The patient is also on diuretics which was held for now. His chest x-ray from today shows no acute process and the patient is currently on 2 L of oxygen by nasal cannula without having any major respiratory distress. He is currently in a sinus rhythm and currently maintained on a combination of Coreg and amiodarone. He was having on and off chest pain and the patient was placed on Ranexa. He is most recent echocardiogram that was done during this current admission showed a low-normal ejection fraction of 50-55%. The rest of the cardiac structures were all within normal limits. No segmental wall motion abnormalities. The patient remains considerably weak. He still has his Hemodialysis catheter in his right groin. Objective - Vital Signs Vital signs: Vital Signs Temp 97.5 F L 11/12/17 05:00 Pulse 56 L 11/12/17 05:00 Resp 19 11/12/17 05:00 BP 156/56 11/12/17 05:00 Pulse Ox 97 11/12/17 05:00 Intake & Output 11/11/17 11/12/17 11/12/17 18:59 06:59 18:59 Intake Total 710 120 10 Output Total 600 580 0 Balance 110 -460 10 Weight 122 kg 123.5 kg Intake: IV 250 120 10 Sodium Chloride 0.9% 1, 250 120 10 000 ml @ 50 mls/hr IV . Q20H [facility] Rx#:[id number] Oral 460 Output: Urine 600 580 0 Other: Voiding Method Indwelling Catheter Urinal # Voids 0 0 # Bowel Movements 1 - Exam GENERAL EXAM: Alert, pleasant 77-year-old obese white male comfortable in no apparent distress. HEAD: Normocephalic/atraumatic. EYES: Normal reaction of pupils, equal size. Conjunctiva pink, sclera white. NOSE: Clear with pink turbinates. THROAT: No erythema or exudates. NECK: No masses, no JVD, no thyroid enlargement, no adenopathy. CHEST: No chest wall deformity. Symmetrical expansion. LUNGS: Bibasilar crackles, more at the left base CVS: Regular rate and rhythm, normal S1 and S2, no gallops, no murmurs, no rubs ABDOMEN: Soft, nontender. No hepatosplenomegaly, normal bowel sounds, no guarding or rigidity. EXTREMITIES: No clubbing, trace pretibial edema, no cyanosis, 2+ pulses and upper and lower extremities. Chronic venous stasis changes in bilateral lower extremities. Right groin hemodialysis catheter is clean dry and intact. MUSCULOSKELETAL: Muscle strength is weak in all 4 extremities symmetrically. SPINE: No scoliosis or deformity SKIN: No rashes CENTRAL NERVOUS SYSTEM: Alert and oriented -3. No focal deficits, tone is normal in all 4 extremities. PSYCHIATRIC: Alert and oriented -3. Appropriate affect. Intact judgment and insight. - Labs CBC & Chem 7: 11/12/17 05:10 11/12/17 05:10 Labs: Abnormal Lab Results - Last 24 Hours (Table) 11/11/17 11/11/17 11/11/17 Range/Units 11:54 17:14 20:06 RBC (4.30-5.90) m/uL Hgb (13.0-17.5) gm/dL Hct (39.0-53.0) % MCHC (31.0-37.0) g/dL RDW (11.5-15.5) % Plt Count (150-450) k/uL PT (9.0-12.0) sec INR (<1.2) APTT (22.0-30.0) sec Chloride (98-107) mmol/L BUN (9-20) mg/dL Creatinine (0.66-1.25) mg/dL Glucose (74-99) mg/dL POC Glucose (mg/dL) 183 H 143 H 218 H (75-99) mg/dL 11/12/17 11/12/17 11/12/17 Range/Units 05:10 05:10 05:10 RBC 3.06 L (4.30-5.90) m/uL Hgb 9.2 L (13.0-17.5) gm/dL Hct 30.6 L (39.0-53.0) % MCHC 30.1 L (31.0-37.0) g/dL RDW 16.3 H (11.5-15.5) % Plt Count 149 L (150-450) k/uL PT 13.0 H (9.0-12.0) sec INR 1.4 H (<1.2) APTT 43.3 H (22.0-30.0) sec Chloride 109 H (98-107) mmol/L BUN 46 H (9-20) mg/dL Creatinine 2.29 H (0.66-1.25) mg/dL Glucose 128 H (74-99) mg/dL POC Glucose (mg/dL) (75-99) mg/dL 11/12/17 Range/Units 07:29 RBC (4.30-5.90) m/uL Hgb (13.0-17.5) gm/dL Hct (39.0-53.0) % MCHC (31.0-37.0) g/dL RDW (11.5-15.5) % Plt Count (150-450) k/uL PT (9.0-12.0) sec INR (<1.2) APTT (22.0-30.0) sec Chloride (98-107) mmol/L BUN (9-20) mg/dL Creatinine (0.66-1.25) mg/dL Glucose (74-99) mg/dL POC Glucose (mg/dL) 180 H (75-99) mg/dL Assessment and Plan Plan: Assessment 1 acute on chronic kidney failure, improving and the patient is producing adequate amount of urine output and currently the patient is of diuretics. Today's creatinine is up to 2.5. No major it right imbalance. Diuretics and placed on hold and the patient is producing adequate amount of urine output and the patient has been negative fluid balance over the past 3 days. The findings on the case. Temporal gases catheter is still in place 2 acute hyperkalemia, improved as the patient was taken off Aldactone and lisinopril 3 coronary artery disease 4 history of congestion heart failure although most recent echo cardiac exam shows a preserved LV function without any wall motion abnormalities 5 episodic chest pain, possibly related to underlying coronary artery disease 6 history of atrial fibrillation current rhythm is sinus on amiodarone and beta blockers in follow-up of Coreg and the patient is on long-term anticoagulation utilizing pradaxa 7 obstructive sleep apnea, currently on a BiPAP at a pressure of 20/15 cm of water. 8 diabetes mellitus on insulin pump on outpatient basis 9 peripheral neuropathy 10 history of right carotid endarterectomy for carotid artery disease 11 previous history of cardiac arrest following a carotid artery surgery requiring intubation mechanical ventilation 12 acute hypoxic respiratory failure improved as the patient's volume status continues to improve, today's chest x-ray is within normal limits 13 chronic normocytic anemia him a likely multifactorial in a station was chronic renal failure 14 generalized weakness 15 BPH on tamsulosin 16 hyperlipidemia 17 hypertension Plan The patient is clinically stable. Will monitor the renal function. Overall pulmonary status is stable. History of any chest pain. Echocardiogram was noted and is a preserved LV function. The patient has been evaluated for cardiac bypass surgery knowing that he has three-vessel disease and he was considered to be a high-risk for surgical intervention at this point in time. He is referred to the consultation was done earlier by Dr. Marshall King. No other issues for now. The patient moved out of the intensive care unit. We'll continue to follow.
[2017-11-12] MEDS: DABIGATRAN 75 MG CAP PO SCH ×2 (09:27→21:16)
[2017-11-12] MEDS: amLODIPine 5 MG TAB PO SCH (09:27)
[2017-11-12] MEDS: ASPIRIN 81 MG PO SCH (09:27)
[2017-11-12] MEDS: RANOLAZINE 500 MG TAB.ER.12H PO SCH ×2 (09:28→21:16)
[2017-11-12] MEDS: FAMOTIDINE 20 MG TAB PO SCH (09:28)
[2017-11-12] MEDS: PREGABALIN 75 MG CAP PO SCH ×2 (09:28→21:29)
[2017-11-12] MEDS: TAMSULOSIN 0.4 MG CAP.ER.24H PO SCH (09:28)
[2017-11-12] MEDS: AMIODARONE 200 MG TAB PO SCH (09:30)
[2017-11-12 11:54] LABS: Glucose,Whole Blood 167 mg/dL (75-99)
--- NOTE | 2017-11-12 12:22 | P.PN ---
Subjective Patient is seen in follow-up for acute kidney injury on chronic kidney disease and hyperkalemia. Patient has chronic kidney disease stage III with baseline creatinine in the range of 1.2-1.4 secondary to nephrosclerosis. Patient presented to the hospital with generalized weakness. He was recently admitted as CHF exacerbation and was maintained on Lasix as well as Aldactone and lisinopril. Patient was noted to be hyperkalemic with a potassium level of 8.6 which was medically treated several times. Patient remained persistently hyperkalemic and underwent 2 treatments of hemodialysis this admission. Potassium 5.1 this morning. He is nonoliguric. Boothe catheter discontinued last night. He is off all IV fluids at this time. Vital signs are stable. General: The patient appeared well nourished and normally developed. HEENT: Head exam is unremarkable. Neck is without jugular venous distension. LUNGS: Lungs are clear to auscultation and percussion. Breath sounds decreased. HEART: Rate and Rhythm are regular. First and second heart sounds normal. No murmurs, rubs or gallops. ABDOMEN: Abdominal exam reveals normal bowel sounds. Non-tender and non- distended. No evidence of peritonitis. EXTREMITITES: No clubbing, cyanosis, or edema. Objective - Vital Signs Vital signs: Vital Signs Temp 97.7 F 11/12/17 08:00 Pulse 55 L 11/12/17 11:47 Resp 29 H 11/12/17 10:00 BP 121/51 11/12/17 10:00 Pulse Ox 98 11/12/17 10:00 Intake & Output 11/11/17 11/12/17 11/12/17 18:59 06:59 18:59 Intake Total 710 120 10 Output Total 600 580 0 Balance 110 -460 10 Weight 122 kg 123.5 kg Intake: IV 250 120 10 Sodium Chloride 0.9% 1, 250 120 10 000 ml @ 50 mls/hr IV . Q20H [facility] Rx#:[id number] Oral 460 0 Output: Urine 600 580 0 Other: Voiding Method Indwelling Catheter Urinal # Voids 0 0 # Bowel Movements 1 - Labs CBC & Chem 7: 11/12/17 05:10 11/12/17 05:10 Labs: Abnormal Lab Results - Last 24 Hours (Table) 11/11/17 11/11/17 11/12/17 Range/Units 17:14 20:06 05:10 RBC 3.06 L (4.30-5.90) m/uL Hgb 9.2 L (13.0-17.5) gm/dL Hct 30.6 L (39.0-53.0) % MCHC 30.1 L (31.0-37.0) g/dL RDW 16.3 H (11.5-15.5) % Plt Count 149 L (150-450) k/uL PT (9.0-12.0) sec INR (<1.2) APTT (22.0-30.0) sec Chloride (98-107) mmol/L BUN (9-20) mg/dL Creatinine (0.66-1.25) mg/dL Glucose (74-99) mg/dL POC Glucose (mg/dL) 143 H 218 H (75-99) mg/dL 11/12/17 11/12/17 11/12/17 Range/Units 05:10 05:10 07:29 RBC (4.30-5.90) m/uL Hgb (13.0-17.5) gm/dL Hct (39.0-53.0) % MCHC (31.0-37.0) g/dL RDW (11.5-15.5) % Plt Count (150-450) k/uL PT 13.0 H (9.0-12.0) sec INR 1.4 H (<1.2) APTT 43.3 H (22.0-30.0) sec Chloride 109 H (98-107) mmol/L BUN 46 H (9-20) mg/dL Creatinine 2.29 H (0.66-1.25) mg/dL Glucose 128 H (74-99) mg/dL POC Glucose (mg/dL) 180 H (75-99) mg/dL 11/12/17 Range/Units 11:52 RBC (4.30-5.90) m/uL Hgb (13.0-17.5) gm/dL Hct (39.0-53.0) % MCHC (31.0-37.0) g/dL RDW (11.5-15.5) % Plt Count (150-450) k/uL PT (9.0-12.0) sec INR (<1.2) APTT (22.0-30.0) sec Chloride (98-107) mmol/L BUN (9-20) mg/dL Creatinine (0.66-1.25) mg/dL Glucose (74-99) mg/dL POC Glucose (mg/dL) 167 H (75-99) mg/dL Assessment and Plan Plan: Assessment: 1. Acute kidney injury mostly prerenal from diuretics. Improved with IV hydration. Creatinine 2.29 today. Urinalysis is benign. 2. Chronic kidney disease stage III with baseline creatinine in the range of 1.2-1.4 secondary to nephrosclerosis. 3. Hyperkalemia secondary to acute kidney injury and from the use of lisinopril and Aldactone. Refractory to medical management. Patient underwent 2 treatments of hemodialysis this admission. Potassium level 5.1 this morning. No hydronephrosis noted on renal ultrasound. 4. Systolic CHF with ejection fraction of less than 20% on previous echocardiogram in the chart. 5. Hyperphosphatemia secondary to acute kidney injury. Improved. 6. Insulin-dependent diabetes mellitus. Plan: Low potassium diet. Continue to monitor renal function and urine output closely. Continue to hold off on dialysis today.
[2017-11-12 15:03] VITALS: BMI 40.1
[2017-11-12] MEDS: SODIUM CHLORIDE 0.9% 1,000 ML IV SCH (15:23)
--- NOTE | 2017-11-12 15:24 | PN ---
PROGRESS NOTE This gentleman has CAD, recent acute kidney injury and has been doing well. He is slightly bradycardic. I will decrease the Coreg from 12.5 to 6.25 mg b.i.d. His vital signs are stable. He is making some urine output. S1-S2 heard normally. Short systolic murmur is audible. Lungs reveal decent air entry. Abdomen and lower extremity exam unchanged. Plan is to continue current medications, decrease Coreg and no aggressive intervention from a cardiac standpoint at this time. MMODL / IJN: [id number] /
[2017-11-12] MEDS: ACETAMINOPHEN TAB 325 MG TAB PO PRN ×2 (15:39→21:29)
--- NOTE | 2017-11-12 16:25 | P.CONS ---
History of Present Illness - Chief Complaint Medical debility - History of Present Illness I had the opportunity see patient for inpatient rehab consultation with regard to medical debility. He was admitted to [facility] November 08 with acute onset lethargy. Found to have potassium 8.6, acute on chronic renal failure. Seen by Drs. Hardin and Cuate. PT reports minimal assistance for functional ability , transfers, gait 100 feet with roller walker. OT reports supervision for upper dressing and moderate assistance for lower dressing, minimal assistance for bathing and maximal assistance for toileting. Minimal assistance functional mobility. Chest x-rays followed and negative. Abdominal ultrasound demonstrates only left renal lesion 4 cm and a 5 cm cyst. Previous functional history: Patient known to me from recent inpatient rehab admission earlier this year, heart attack followed by stroke and left hemiparesthesias. 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 Patient requires assistance with dressing, starting pants and legs. reports assist with bathing as well as. Review of Systems Review of systems: ENT: Denies sneezes or discharge. Eyes: Denies discharge or photophobia. Cardiac: Denies chest pain or palpitation. Pulmonary: Denies cough or shortness of breath. Gastrointestinal: Denies nausea, emesis, constipation, diarrhea. Genitourinary: Denies discharge or frequency. Musculoskeletal: Denies muscle or bone aches. Neurologic: Mild generalized weakness. Reports thinking much clearer now. Endocrine: Denies shakes or sweats. Oncology: Denies cancers. Dermatologic: Denies rash, itching, pruritus. ALLERGY/immunology: Denies sneezes, rashes. Past Medical History Past Medical History: CVA/TIA, Diabetes Mellitus, Eye Disorder, GERD/Reflux, Hyperlipidemia, Myocardial Infarction ([place]), Osteoarthritis (OA), Sleep Apnea/ CPAP/BIPAP, Syncope Additional Past Medical History / Comment(s): Gout, blockage left carotid artery , neuropathy, diverticulitis, insulin pump, uses a walker- wheelchair for distance. edema shaka legs-(left worse)-wears compression hose, stroke 05/08/17- left side weakness, hx pericardial effusion, macular degeneration left eye-gets injections Last Myocardial Infarction Date:: 05/08/17 History of Any Multi-Drug Resistant Organisms: None Reported Past Surgical History: Cardiac Ablation, Joint Replacement, Orthopedic Surgery, Tonsillectomy Additional Past Surgical History / Comment(s): carpal tunnel rt wrist, rt knee replacement, shaka hip replacement, drainage for pericaridal effusion, cardioversion x 2, arthroscopy shaka knees, rt carotid endarterectomy, trigger finger shaka hands, shaka cataracts Past Anesthesia/Blood Transfusion Reactions: No Reported Reaction Past Psychological History: No Psychological Hx Reported Smoking Status: Never smoker Past Alcohol Use History: None Reported Past Drug Use History: None Reported - Past Family History Mother Family Medical History: No Reported History Daughter(s) Family Medical History: Cancer Medications and Allergies Home Medications Medication Instructions Recorded Confirmed Type Allopurinol [Zyloprim] 300 mg PO DAILY 03/04/17 11/08/17 History Carvedilol [Coreg] 12.5 mg PO BID 03/04/17 11/08/17 History Colchicine [Colcrys] 0.6 mg PO BID PRN 03/04/17 11/08/17 History Tamsulosin HCl [Flomax] 0.4 mg PO BID 03/04/17 11/08/17 History Aspirin [Adult Low Dose Aspirin EC] 81 mg PO DAILY 04/27/17 11/08/17 History Pravastatin Sodium [Pravachol] 40 mg PO HS #30 tab 05/23/17 11/08/17 Rx Acetaminophen [Tylenol Arthritis] 1,300 mg PO Q12H PRN 08/06/17 11/08/17 History Dabigatran [Pradaxa] 150 mg PO BID 08/06/17 11/08/17 History INSULIN LISPRO (For Pump) [humaLOG 0.01 units SQ-PUMP CONTINUOUS 08/06/17 History (For Pump)] Isosorbide Mononitrate [Isosorbide 30 mg PO DAILY 08/06/17 11/08/17 History Mononitrate ER] Lisinopril [Zestril] 5 mg PO DAILY 08/06/17 11/08/17 History Meclizine [Antivert] 25 mg PO DAILY PRN 08/06/17 11/08/17 History Nitroglycerin Sl Tabs [Nitrostat] 0.4 mg SUBLINGUAL Q5M PRN 08/06/17 11/08/17 History Zolpidem [Ambien] 5 - 10 mg PO HS 08/06/17 11/08/17 History traMADol HCL [Ultram] 50 mg PO Q8HR PRN 08/06/17 11/08/17 History amLODIPine BESYLATE [Norvasc] 5 mg PO DAILY #90 tablet 08/13/17 11/08/17 Rx Albuterol Inhaler [Ventolin Hfa 2 puff INHALATION RT-Q4H 10/26/17 11/08/17 History Inhaler] Amiodarone [Cordarone] 200 mg PO DAILY 10/26/17 11/08/17 History Budesonide/Formoterol Fumarate 2 puff INHALATION RT-BID 10/26/17 11/08/17 History [Symbicort 160-4.5 Mcg Inhaler] Furosemide [Lasix] 80 mg PO BID 10/26/17 11/08/17 History Ibuprofen [Motrin] 600 mg PO Q8HR PRN 10/26/17 11/08/17 History Pregabalin [Lyrica] 200 mg PO BID 10/26/17 11/08/17 History Spironolactone 50 mg PO BID 10/26/17 11/08/17 History Metolazone [Zaroxolyn] 2.5 mg PO DAILY 11/08/17 11/08/17 History Allergies Allergy/AdvReac Type Severity Reaction Status Date / Time No Known Allergies Allergy Verified 11/07/17 22:28 Physical Exam Vitals: Vital Signs Temp Pulse Resp BP Pulse Ox 11/12/17 14:00 55 L 18 136/51 96 11/12/17 13:00 60 26 H 118/46 96 11/12/17 12:00 97.7 F 61 19 134/59 96 11/12/17 11:47 55 L 11/12/17 11:36 55 L 11/12/17 11:00 50 L 16 121/51 95 11/12/17 10:00 57 L 29 H 121/51 98 11/12/17 09:00 57 L 30 H 129/64 98 11/12/17 08:00 97.7 F 54 L 20 98 11/12/17 07:00 47 L 15 98 11/12/17 06:00 54 L 20 156/56 89 L 11/12/17 05:00 97.5 F L 56 L 19 156/56 97 11/12/17 04:00 50 L 15 95 11/12/17 03:00 49 L 15 98 11/12/17 02:00 47 L 16 97 11/12/17 01:00 49 L 17 98 11/12/17 00:00 98 F 54 L 18 145/56 98 11/11/17 23:00 51 L 15 97 11/11/17 22:09 56 L 99 11/11/17 22:00 57 L 22 116/48 98 11/11/17 21:00 52 L 20 142/63 95 11/11/17 20:24 56 L 11/11/17 20:14 55 L 11/11/17 20:00 98 F 57 L 27 H 135/41 99 11/11/17 19:00 55 L 25 H 132/47 97 11/11/17 18:00 49 L 15 116/64 97 11/11/17 17:00 56 L 24 124/46 98 Intake and Output 11/12/17 11/12/17 11/12/17 06:59 14:59 22:59 Intake Total 80 10 Output Total 375 150 Balance -295 -140 Intake: IV 80 10 Sodium Chloride 0.9% 1, 80 10 000 ml @ 50 mls/hr IV . Q20H [facility] Rx#:[id number] Oral 0 Output: Urine 375 150 Other: Voiding Method Urinal Urinal # Voids 0 0 Weight 123.5 kg 123.5 kg Skin: Good color, texture, turgor. General: Morbidly obese and comfortable appearance. Head: Normocephalic, atraumatic. Eyes: Symmetric. Pupils equal round. Ears: Symmetric. Hearing within normal limits. Mouth: Clear. Neck: Supple. Carotid without bruit. Cardiac: Regular rate and rhythm. Lungs: Clear anteriorly and posteriorly. Abdomen: Soft active nontender. Obese. Extremities: Normal tone. Neurological: Mental status: Alert, cooperative, pleasant. Cranial nerves: Symmetric facial tone and trapezius. Motor: Actively elevates all limbs but with mild distal weakness left leg more so than arm. Sensation: Intact throughout. DTRs: Symmetric and equal throughout. Mobility: Currently requires physical assistance for mobility. Results CBC & Chem 7: 11/12/17 05:10 11/12/17 05:10 Labs: Abnormal Lab Results - Last 24 Hours (Table) 11/11/17 11/11/17 11/12/17 Range/Units 17:14 20:06 05:10 RBC 3.06 L (4.30-5.90) m/uL Hgb 9.2 L (13.0-17.5) gm/dL Hct 30.6 L (39.0-53.0) % MCHC 30.1 L (31.0-37.0) g/dL RDW 16.3 H (11.5-15.5) % Plt Count 149 L (150-450) k/uL PT (9.0-12.0) sec INR (<1.2) APTT (22.0-30.0) sec Chloride (98-107) mmol/L BUN (9-20) mg/dL Creatinine (0.66-1.25) mg/dL Glucose (74-99) mg/dL POC Glucose (mg/dL) 143 H 218 H (75-99) mg/dL 11/12/17 11/12/17 11/12/17 Range/Units 05:10 05:10 07:29 RBC (4.30-5.90) m/uL Hgb (13.0-17.5) gm/dL Hct (39.0-53.0) % MCHC (31.0-37.0) g/dL RDW (11.5-15.5) % Plt Count (150-450) k/uL PT 13.0 H (9.0-12.0) sec INR 1.4 H (<1.2) APTT 43.3 H (22.0-30.0) sec Chloride 109 H (98-107) mmol/L BUN 46 H (9-20) mg/dL Creatinine 2.29 H (0.66-1.25) mg/dL Glucose 128 H (74-99) mg/dL POC Glucose (mg/dL) 180 H (75-99) mg/dL 11/12/17 Range/Units 11:52 RBC (4.30-5.90) m/uL Hgb (13.0-17.5) gm/dL Hct (39.0-53.0) % MCHC (31.0-37.0) g/dL RDW (11.5-15.5) % Plt Count (150-450) k/uL PT (9.0-12.0) sec INR (<1.2) APTT (22.0-30.0) sec Chloride (98-107) mmol/L BUN (9-20) mg/dL Creatinine (0.66-1.25) mg/dL Glucose (74-99) mg/dL POC Glucose (mg/dL) 167 H (75-99) mg/dL Assessment and Plan (1) MIGUEL (acute kidney injury) Current Visit: Yes Status: Acute Code(s): N17.9 - ACUTE KIDNEY FAILURE, UNSPECIFIED SNOMED Code(s): 53655312 (2) Anoxic encephalopathy Current Visit: No Status: Acute Code(s): G93.1 - ANOXIC BRAIN DAMAGE, NOT ELSEWHERE CLASSIFIED SNOMED Code(s): 814147442 Plan: Impression: 1. Medical debility. 2. Acute on chronic kidney injury. 3. Metabolic encephalopathy. 4. Diabetes. 5. History of [place] and stroke this year Comments and plan: At this time PT and OT are ongoing. We'll follow with yourself for possible need of inpatient rehab. Safety concerns noted but note patient has been requiring some assistance from since discharge from rehab unit.
[2017-11-12] MEDS ORDERED: predniSONE 10 MG TAB PO STA (16:27)
[2017-11-12] MEDS: CARVEDILOL 6.25 MG TAB PO SCH (17:22)
[2017-11-12 17:38] LABS: Glucose,Whole Blood 198 mg/dL (75-99)
--- NOTE | 2017-11-12 18:25 | P.PN ---
Subjective Progress Note Date: 11/12/17 Progress note being dictated for Dr. Martínez. Interval history:69-year-old gentleman admitted with the acute renal failure and elevated potassium patient underwent hemodialysis yesterday because of her continued potassium elevation. Patient's renal failure improved and potassium improved after hemodialysis. Patient received right inguinal dialysis catheter patient is quite a bit agitated because of the metabolic encephalopathy. Patient the renal failure is secondary to excessive diuretic therapy and nephrotoxic medications like lisinopril. All of which are being held. Patient is able to provide history but quite a bit agitated because he is uncomfortable his face. 11/10/2017 Patient agitation is better controlled with Haldol patient will be resumed on Dabigartin. Patient had a documented episode of low-grade fever. Since it's only 1 episode no further intervention at this time will hold off on Tylenol monitor if she has another episode of fever, we will do septic workup at that time chest x-ray did not show any pneumonia. 11/11/2017 Patient is much less agitated creatinine remains at 2.5. Did not receive hemodialysis does have good urine output 11/12/2017 transferred out of ICU currently on telemetry unit. Creatinine 2.29. Prednisone added to med regime for gout appearance of left great toe. Objective - Vital Signs Vital signs: Vital Signs Temp 97.1 F L 11/12/17 16:00 Pulse 56 L 11/12/17 16:33 Resp 16 11/12/17 16:00 BP 122/58 11/12/17 16:00 Pulse Ox 97 11/12/17 16:00 Intake & Output 11/11/17 11/12/17 11/12/17 18:59 06:59 18:59 Intake Total 710 120 10 Output Total 600 580 150 Balance 110 -460 -140 Weight 122 kg 123.5 kg 123.5 kg Intake: IV 250 120 10 Sodium Chloride 0.9% 1, 250 120 10 000 ml @ 50 mls/hr IV . Q20H [facility] Rx#:[id number] Oral 460 0 Output: Urine 600 580 150 Other: Voiding Method Indwelling Catheter Urinal Urinal # Voids 0 0 # Bowel Movements 1 - Exam GENERAL: The patient is alert and oriented 3, no acute distress. Well developed , well nourished. HEENT: Pupils are round and equally reacting to light. EOMI. No scleral icterus. No conjunctival pallor. Normocephalic, atraumatic. No pharyngeal erythema. No thyromegaly. CARDIOVASCULAR: S1 and S2 present. Mild bradycardia. Positive systolic murmur , no rubs, or gallops. PULMONARY: Diminished, left basilar crackles, no wheezing. ABDOMEN: Soft, nontender, nondistended, normoactive bowel sounds. No palpable organomegaly. MUSCULOSKELETAL: No joint swelling or deformity. EXTREMITIES: No cyanosis, clubbing, or pedal edema. Inflamed left great toe- NEUROLOGICAL: No focal deficits, moves all 4 extremities, generalized diffuse weakness SKIN: No rashes. - Labs CBC & Chem 7: 11/12/17 05:10 11/12/17 05:10 Labs: Abnormal Lab Results - Last 24 Hours (Table) 11/11/17 11/12/17 11/12/17 Range/Units 20:06 05:10 05:10 RBC 3.06 L (4.30-5.90) m/uL Hgb 9.2 L (13.0-17.5) gm/dL Hct 30.6 L (39.0-53.0) % MCHC 30.1 L (31.0-37.0) g/dL RDW 16.3 H (11.5-15.5) % Plt Count 149 L (150-450) k/uL PT (9.0-12.0) sec INR (<1.2) APTT (22.0-30.0) sec Chloride 109 H (98-107) mmol/L BUN 46 H (9-20) mg/dL Creatinine 2.29 H (0.66-1.25) mg/dL Glucose 128 H (74-99) mg/dL POC Glucose (mg/dL) 218 H (75-99) mg/dL 11/12/17 11/12/17 11/12/17 Range/Units 05:10 07:29 11:52 RBC (4.30-5.90) m/uL Hgb (13.0-17.5) gm/dL Hct (39.0-53.0) % MCHC (31.0-37.0) g/dL RDW (11.5-15.5) % Plt Count (150-450) k/uL PT 13.0 H (9.0-12.0) sec INR 1.4 H (<1.2) APTT 43.3 H (22.0-30.0) sec Chloride (98-107) mmol/L BUN (9-20) mg/dL Creatinine (0.66-1.25) mg/dL Glucose (74-99) mg/dL POC Glucose (mg/dL) 180 H 167 H (75-99) mg/dL 11/12/17 Range/Units 17:10 RBC (4.30-5.90) m/uL Hgb (13.0-17.5) gm/dL Hct (39.0-53.0) % MCHC (31.0-37.0) g/dL RDW (11.5-15.5) % Plt Count (150-450) k/uL PT (9.0-12.0) sec INR (<1.2) APTT (22.0-30.0) sec Chloride (98-107) mmol/L BUN (9-20) mg/dL Creatinine (0.66-1.25) mg/dL Glucose (74-99) mg/dL POC Glucose (mg/dL) 198 H (75-99) mg/dL Assessment and Plan Assessment: -Acute renal failure: Multifactorial and probably prerenal azotemia from excessive diuretic therapy -Chronic kidney disease stage III secondary to nephrosclerosis -Hyperkalemia: Secondary to acute renal failure, lisinopril, aldactone. Because of continued elevated potassium, underwent hemodialysis -Metabolic encephalopathy: Secondary to acute renal failure and hospitalization in ICU delirium. -Congestive heart failure, chronic systolic dysfunction not in acute exacerbated , preserved LV function, EF 50-55%. -chronic kidney disease stage II: Secondary to probably diabetic nephropathy and hypertensive nephrosclerosis -Hypertension -Hyperlipidemia 7 coronary artery disease -Sleep apnea morbid obesity continue CPAP machine -Gout allopurinol and colchicine will be held because of her severe renal dysfunction -History of Atrial fibrillation, currently sinus rhythm -Gastroesophageal reflux disease. -Triple vessel disease, evaluated by cardiothoracic surgery, high surgical risk. -Diabetes mellitus Plan: Continue on current medication regime ,monitoring and symptomatic treatment. Maintain IV fluids, bicarbonate. Steroids added to med regime for symptomatic, gout appearing left great toe. Bradycardia, Coreg dose decreased. Renal diet. The impression and plan of care has been dictated as directed. : I performed a history and examination of this patient, discussed the same with the dictator. I agree with the dictator's note ,documented as a scribe. Any additional findings or plans will be noted.
[2017-11-12 20:26] LABS: Glucose,Whole Blood 215 mg/dL (75-99)
[2017-11-12] MEDS: PRAVASTATIN SODIUM 80 MG TAB PO SCH (21:16)
[2017-11-13] MEDS: NITROGLYCERIN OINT 1 INCH/GM PACKET TOPICAL SCH ×4 (00:01→23:02)
[2017-11-13] MEDS: ALPRAZolam 0.5 MG TAB PO PRN (00:05)
[2017-11-13 06:17] LABS: Glucose,Whole Blood 321 mg/dL (75-99)
[2017-11-13 06:30] LABS: Anisocytosis Slight; Basophils % (A) 0 %; Eosinophils % (A) 0 %; HCT 29.8 % (39.0-53.0); HGB 9.4 gm/dL (13.0-17.5); Hypochromasia Moderate; Lymphocytes # (A) 0.5 k/uL (1.0-4.8); Lymphocytes % (A) 7 %; MCH 31.8 pg (25.0-35.0); MCHC 31.5 g/dL (31.0-37.0); Macrocytosis Slight; Mean Platelet Volume 9.3; Monocytes # (A) 0.2 k/uL (0-1.0); Monocytes % (A) 2 %; Neutrophils % (A) 90 %; Platelet Count 162 k/uL (150-450); RBC 2.95 m/uL (4.30-5.90); RDW 16.2 % (11.5-15.5); WBC 6.7 k/uL (3.8-10.6)
[2017-11-13 06:33] LABS: INR 1.4 (<1.2); Partial Thromboplastin Time 45.9 sec (22.0-30.0)
[2017-11-13 06:41] LABS: Calcium 9.2 mg/dL (8.4-10.2); Magnesium 2.3 mg/dL (1.6-2.3); Phosphorus 4.4 mg/dL (2.5-4.5); Potassium 5.9 mmol/L (3.5-5.1)
[2017-11-13] MEDS: INSULIN ASPART 100 UNIT/ML 1 ML 10 ML VIAL SQ SCH ×3 (06:59→17:33)
[2017-11-13] MEDS: CARVEDILOL 6.25 MG TAB PO SCH ×2 (06:59→17:33)
[2017-11-13] MEDS: ALBUTEROL NEBULIZED 2.5 MG/3 ML INHALATION SCH ×4 (08:15→20:10)
--- NOTE | 2017-11-13 08:55 | XR ---
EXAMINATION TYPE: XR chest 1V portable DATE OF EXAM: 11/13/2017 CLINICAL HISTORY: Difficulty breathing progress study. TECHNIQUE: Single AP portable upright view of the chest is obtained. COMPARISON: Chest x-ray from one day earlier and older studies. FINDINGS: There is persistent cardiomegaly without gross cirrhotic thoracic aorta. Some increased ce ntral vascular congestion felt present on current study. Lung volumes are redemonstrated. No large pl eural effusion or pneumothorax is seen bilaterally. Osseous structures are intact. IMPRESSION: Correlate for developing CHF exacerbation as there is cardiomegaly with suspected new mil d central vascular congestion felt present.
[2017-11-13] MEDS ORDERED: FUROSEMIDE 10 MG/ML 4 ML VIAL IV STA (09:10)
[2017-11-13 09:33] LABS: Glucose,Whole Blood 373 mg/dL (75-99)
[2017-11-13] MEDS: TAMSULOSIN 0.4 MG CAP.ER.24H PO SCH ×3 (09:47→21:54)
[2017-11-13] MEDS: PREGABALIN 75 MG CAP PO SCH ×2 (09:47→22:00)
[2017-11-13] MEDS: FAMOTIDINE 20 MG TAB PO SCH (09:47)
[2017-11-13] MEDS: RANOLAZINE 500 MG TAB.ER.12H PO SCH ×2 (09:47→21:54)
[2017-11-13] MEDS: AMIODARONE 200 MG TAB PO SCH (09:48)
[2017-11-13] MEDS: DABIGATRAN 75 MG CAP PO SCH ×2 (09:48→21:54)
[2017-11-13] MEDS: amLODIPine 5 MG TAB PO SCH (09:48)
[2017-11-13] MEDS: ASPIRIN 81 MG PO SCH (09:48)
[2017-11-13 10:40] LABS: Glucose,Whole Blood 323 mg/dL (75-99)
[2017-11-13] MEDS: INSULIN REGULAR 100 UNIT in SODIUM CHLORIDE 0.9% 100 ML IV SCH ×2 (10:58→23:33)
[2017-11-13 11:35] LABS: Glucose,Whole Blood 277 mg/dL (75-99)
--- NOTE | 2017-11-13 12:20 | P.PN ---
Subjective Progress Note Date: 11/13/17 Principal diagnosis: Acute on chronic kidney failure This is a 77-year-old male patient with known history of coronary artery disease , previous [place], congestion heart failure , and chronic renal failure in addition to diabetes mellitus and the patient has been on insulin pump, carotid artery disease, peripheral neuropathy, sleep apnea and chronic renal failure. The patient was hospitalized because of generalized weakness, exacerbation of CHF and acute kidney injury on top of chronic renal failure. During the course of this treatment, the patient went into progressive renal failure requiring hemodialysis where a few sessions of hemodialysis performed and ultimately the patient started picking up his urine output and currently is off dialysis for the past 3 days. The renal function steadily continues to improve and is down to 2.05 and this morning is up to 2.5. Noted the patient has been producing urine output and he has been a negative fluid balance. Fluid balance 4 2017 was -5.7 L, 11/10/2017 was -2.1 L and 11/11/2017 and was -664 mL. The patient is also on diuretics which was held for now. His chest x-ray from today shows no acute process and the patient is currently on 2 L of oxygen by nasal cannula without having any major respiratory distress. He is currently in a sinus rhythm and currently maintained on a combination of Coreg and amiodarone. He was having on and off chest pain and the patient was placed on Ranexa. He is most recent echocardiogram that was done during this current admission showed a low-normal ejection fraction of 50-55%. The rest of the cardiac structures were all within normal limits. No segmental wall motion abnormalities. The patient remains considerably weak. He still has his Hemodialysis catheter in his right groin. The patient is seen again today 11/13/2017 in follow-up on the selective care unit. He is currently awake and alert in no acute distress. He is up ambulating with physical therapy. He denies any worsening shortness of breath, cough or congestion. He is maintaining good O2 saturations in the 90s on 2 L/m per nasal cannula. Based chest x-ray shows evidence of congestive heart failure with cardiomegaly and mild central vascular congestion. He did receive a dose of Lasix 40 mg IV push this morning. He is voiding. White count 6.7. Hemoglobin 9.4. INR 1.4. Creatinine 2.48. Objective - Vital Signs Vital signs: Vital Signs Temp 98.1 F 11/13/17 02:55 Pulse 64 11/13/17 11:34 Resp 20 11/13/17 08:00 BP 155/65 11/13/17 08:00 Pulse Ox 97 11/13/17 08:00 Intake & Output 11/12/17 11/13/17 11/13/17 18:59 06:59 18:59 Intake Total 10 240 258.887 Output Total 150 475 Balance -140 -235 258.887 Weight 123.5 kg 121.6 kg Intake: IV 10 Sodium Chloride 0.9% 1, 10 000 ml @ 50 mls/hr IV . Q20H [facility] Rx#:[id number] Intake, IV Titration 18.887 Amount Insulin Regular 100 unit 18.887 In Sodium Chloride 0.9% 100 ml @ Titrate IV .Q0M [facility] Rx#:[id number] Oral 0 240 240 Output: Urine 150 475 Other: Voiding Method Urinal Urinal Urinal # Voids 0 2 - Exam GENERAL EXAM: Alert, pleasant 77-year-old obese white male comfortable in no apparent distress. HEAD: Normocephalic/atraumatic. EYES: Normal reaction of pupils, equal size. Conjunctiva pink, sclera white. NOSE: Clear with pink turbinates. THROAT: No erythema or exudates. NECK: No masses, no JVD, no thyroid enlargement, no adenopathy. CHEST: No chest wall deformity. Symmetrical expansion. LUNGS: Bibasilar crackles, more at the left base CVS: Regular rate and rhythm, normal S1 and S2, no gallops, no murmurs, no rubs ABDOMEN: Soft, nontender. No hepatosplenomegaly, normal bowel sounds, no guarding or rigidity. EXTREMITIES: No clubbing, trace pretibial edema, no cyanosis, 2+ pulses and upper and lower extremities. Chronic venous stasis changes in bilateral lower extremities. Right groin hemodialysis catheter is clean dry and intact. MUSCULOSKELETAL: Muscle strength is weak in all 4 extremities symmetrically. SPINE: No scoliosis or deformity SKIN: No rashes CENTRAL NERVOUS SYSTEM: Alert and oriented -3. No focal deficits, tone is normal in all 4 extremities. PSYCHIATRIC: Alert and oriented -3. Appropriate affect. Intact judgment and insight. - Labs CBC & Chem 7: 11/13/17 05:52 11/13/17 05:52 Labs: Abnormal Lab Results - Last 24 Hours (Table) 11/12/17 11/12/17 11/13/17 Range/Units 17:10 20:25 05:52 RBC 2.95 L (4.30-5.90) m/uL Hgb 9.4 L (13.0-17.5) gm/dL Hct 29.8 L (39.0-53.0) % MCV 101.0 H (80.0-100.0) fL RDW 16.2 H (11.5-15.5) % Lymphocytes # 0.5 L (1.0-4.8) k/uL PT (9.0-12.0) sec INR (<1.2) APTT (22.0-30.0) sec Potassium (3.5-5.1) mmol/L Chloride (98-107) mmol/L BUN (9-20) mg/dL Creatinine (0.66-1.25) mg/dL Glucose (74-99) mg/dL POC Glucose (mg/dL) 198 H 215 H (75-99) mg/dL 11/13/17 11/13/17 11/13/17 Range/Units 05:52 05:52 06:15 RBC (4.30-5.90) m/uL Hgb (13.0-17.5) gm/dL Hct (39.0-53.0) % MCV (80.0-100.0) fL RDW (11.5-15.5) % Lymphocytes # (1.0-4.8) k/uL PT 13.0 H (9.0-12.0) sec INR 1.4 H (<1.2) APTT 45.9 H (22.0-30.0) sec Potassium 5.9 H (3.5-5.1) mmol/L Chloride 109 H (98-107) mmol/L BUN 56 H (9-20) mg/dL Creatinine 2.48 H (0.66-1.25) mg/dL Glucose 306 H (74-99) mg/dL POC Glucose (mg/dL) 321 H (75-99) mg/dL 11/13/17 11/13/17 11/13/17 Range/Units 09:31 10:36 11:31 RBC (4.30-5.90) m/uL Hgb (13.0-17.5) gm/dL Hct (39.0-53.0) % MCV (80.0-100.0) fL RDW (11.5-15.5) % Lymphocytes # (1.0-4.8) k/uL PT (9.0-12.0) sec INR (<1.2) APTT (22.0-30.0) sec Potassium (3.5-5.1) mmol/L Chloride (98-107) mmol/L BUN (9-20) mg/dL Creatinine (0.66-1.25) mg/dL Glucose (74-99) mg/dL POC Glucose (mg/dL) 373 H 323 H 277 H (75-99) mg/dL Assessment and Plan Assessment: Assessment 1 acute on chronic kidney failure, improving and the patient is producing adequate amount of urine output. Today's creatinine is up to 2.48. 2 acute hyperkalemia, improved as the patient was taken off Aldactone and lisinopril 3 coronary artery disease 4 history of congestion heart failure although most recent echo cardiac exam shows a preserved LV function without any wall motion abnormalities 5 episodic chest pain, possibly related to underlying coronary artery disease 6 history of atrial fibrillation current rhythm is sinus on amiodarone and beta blockers in follow-up of Coreg and the patient is on long-term anticoagulation utilizing pradaxa 7 obstructive sleep apnea, currently on a BiPAP at a pressure of 20/15 cm of water. 8 diabetes mellitus on insulin pump on outpatient basis 9 peripheral neuropathy 10 history of right carotid endarterectomy for carotid artery disease 11 previous history of cardiac arrest following a carotid artery surgery requiring intubation mechanical ventilation 12 acute hypoxic respiratory failure improved as the patient's volume status continues to improve, today's chest x-ray is within normal limits 13 chronic normocytic anemia him a likely multifactorial in a station was chronic renal failure 14 generalized weakness 15 BPH on tamsulosin 16 hyperlipidemia 17 hypertension Plan I'll and The patient was seen and evaluated by Dr. Kimball. Chest x-ray and labs were reviewed. He did receive additional Lasix this morning. He is currently stable from the pulmonary and critical care standpoint. He may require an outpatient sleep study to reorder new home equipment. We'll continue with his current medications. We will increase his activity as tolerated. We'll continue to follow. I, the cosigning physician, performed a history & physical examination of the patient. Lungs sounds with crackles in the bilateral posterior bases. Maintaining good O2 saturations in the 90s on 2 L/m per nasal cannula. I discussed the assessment and plan of care with my nurse practitioner, Fabiana Gee. I attest to the above note as dictated by her.
[2017-11-13 12:22] LABS: Glucose,Whole Blood 232 mg/dL (75-99)
[2017-11-13 13:12] LABS: Glucose,Whole Blood 176 mg/dL (75-99)
[2017-11-13 14:37] LABS: Glucose,Whole Blood 144 mg/dL (75-99)
--- NOTE | 2017-11-13 14:46 | PN ---
PROGRESS NOTE Patient is seen for followup for acute kidney injury and hyperkalemia. His potassium was elevated today at 5.9. Patient's sugar was high at 306 and 373 mg. He states that he has had good urine output. He has been transferred out of the ICU. Patient states that his BiPAP machine broke down upon transfer. On examination, blood pressure was 153/68, heart rate 55 per minute. He is afebrile. EXAMINATION OF THE HEART: S1, S2. EXAMINATION OF LUNGS: Bilateral breath sounds are heard. ABDOMEN: Soft, obese. Examination of lower extremities shows chronic skin changes. No significant edema is noted. HAND COKE DRAWER exam is grossly intact. Labs show sodium 141, potassium 5.9, chloride 109, BUN 56, serum creatinine 2.48, hemoglobin 9.4 g/dL, phosphorus 4.4, magnesium 2.3. ASSESSMENT: 1. Acute kidney injury, acute tubular necrosis, currently improved with serum creatinine down to 2.4 from 4.2 on initial admission. Patient continues to have good urine output. He was dialyzed initially for hyperkalemia. No nephrotoxic agents on board. 2. Hyperkalemia on initial admission, currently improved. Potassium is back up again. This is mainly associated with hyperglycemia. I will give him a dose of Lasix. We need to bring down the blood sugars to less than 180 mg/dL. Patient will be given IV insulin if his sugar remains elevated. 3. Chronic obstructive pulmonary disease. 4. History of congestive heart failure with preserved left ventricular function. 5. Previous history of cardiac arrest. PLAN: Lasix IV x1. Repeat potassium this evening and bring down the blood sugars. Patient can be given IV insulin if his sugars do not improve. He should be maintained on a low- potassium diet. MMODL / IJN: [id number] /
--- NOTE | 2017-11-13 15:10 | PN ---
PROGRESS NOTE Mr. Mitchell is a gentleman with history of CAD, came with acute kidney injury. He is doing better. He remains in sinus rhythm. His heart rate has improved. Lungs are clear. Overall he is feeling better. Vital signs are stable. Blood pressure 110/70, pulse rate is 62 per minute. S1, S2 heard normally but distantly. Short systolic murmur noted. Lungs are clear. Abdomen and lower extremity exam unchanged. Plan is to continue current medications and whenever he is discharged, he should have some physical therapy and improve his strength and coordination and then we will revisit the issue of open-heart surgery for this patient. I discussed my thoughts in detail with the patient and he understands this plan very well. I will continue current medical regimen and will see him as needed during his hospitalization. JENNIFER / BOZENA: [id number] /
--- NOTE | 2017-11-13 15:41 | P.PN ---
Subjective Progress Note Date: 11/13/17 Progress note being dictated for Dr. Martínez. Interval history:69-year-old gentleman admitted with the acute renal failure and elevated potassium patient underwent hemodialysis yesterday because of her continued potassium elevation. Patient's renal failure improved and potassium improved after hemodialysis. Patient received right inguinal dialysis catheter patient is quite a bit agitated because of the metabolic encephalopathy. Patient the renal failure is secondary to excessive diuretic therapy and nephrotoxic medications like lisinopril. All of which are being held. Patient is able to provide history but quite a bit agitated because he is uncomfortable his face. 11/10/2017 Patient agitation is better controlled with Haldol patient will be resumed on Dabigartin. Patient had a documented episode of low-grade fever. Since it's only 1 episode no further intervention at this time will hold off on Tylenol monitor if she has another episode of fever, we will do septic workup at that time chest x-ray did not show any pneumonia. 11/11/2017 Patient is much less agitated creatinine remains at 2.5. Did not receive hemodialysis does have good urine output 11/12/2017 transferred out of ICU currently on telemetry unit. Creatinine 2.29. Prednisone added to med regime for gout appearance of left great toe. 11/13/2017 reports significant pain relief in left foot with initiation of prednisone yesterday. Currently complaining of discomfort in bilateral knees. Ambulated with PT, tolerated exertion well. Chest x-ray reporting developing CHF exacerbation, new mild central vascular congestion. Maintaining O2 sats in the high 90s on 2 L nasal cannula. Elevated sugars, low 300s, insulin drip initiated. Hyperkalemic, 5.9 receiving Lasix as per nephrology. Creatinine 2.48. Telemetry sinus rhythm. Afebrile. Objective - Vital Signs Vital signs: Vital Signs Temp 98.0 F 11/13/17 12:00 Pulse 55 L 11/13/17 12:00 Resp 18 11/13/17 12:00 BP 153/68 11/13/17 12:00 Pulse Ox 97 11/13/17 12:00 Intake & Output 11/12/17 11/13/17 11/13/17 18:59 06:59 18:59 Intake Total 10 240 274.137 Output Total 150 475 Balance -140 -235 274.137 Weight 123.5 kg 121.6 kg Intake: IV 10 Sodium Chloride 0.9% 1, 10 000 ml @ 50 mls/hr IV . Q20H JOSÉ MIGUEL Rx#:[id number] Intake, IV Titration 34.137 Amount Insulin Regular 100 unit 34.137 In Sodium Chloride 0.9% 100 ml @ Titrate IV .Q0M JOSÉ MIGUEL Rx#:[id number] Oral 0 240 240 Output: Urine 150 475 Other: Voiding Method Urinal Urinal Urinal # Voids 0 2 - Exam GENERAL: The patient is sitting up in bed, alert and oriented 3, no acute distress. HEENT: Pupils are round and equally reacting to light. EOMI. No scleral icterus. No conjunctival pallor. Normocephalic, atraumatic. CARDIOVASCULAR: S1 and S2 present. Mild bradycardia. Positive systolic murmur , no rubs, or gallops. PULMONARY: Diminished, bibasilar crackles, no wheezing. ABDOMEN: Soft, nontender, nondistended, normoactive bowel sounds. No palpable organomegaly. MUSCULOSKELETAL: No joint swelling or deformity. EXTREMITIES: No cyanosis, clubbing, trace pedal edema. Inflamed left great toe- NEUROLOGICAL: No focal deficits, moves all 4 extremities, generalized diffuse weakness SKIN: No rashes. - Labs CBC & Chem 7: 11/13/17 05:52 11/13/17 05:52 Labs: Abnormal Lab Results - Last 24 Hours (Table) 11/12/17 11/12/17 11/13/17 Range/Units 17:10 20:25 05:52 RBC 2.95 L (4.30-5.90) m/uL Hgb 9.4 L (13.0-17.5) gm/dL Hct 29.8 L (39.0-53.0) % MCV 101.0 H (80.0-100.0) fL RDW 16.2 H (11.5-15.5) % Lymphocytes # 0.5 L (1.0-4.8) k/uL PT (9.0-12.0) sec INR (<1.2) APTT (22.0-30.0) sec Potassium (3.5-5.1) mmol/L Chloride (98-107) mmol/L BUN (9-20) mg/dL Creatinine (0.66-1.25) mg/dL Glucose (74-99) mg/dL POC Glucose (mg/dL) 198 H 215 H (75-99) mg/dL 11/13/17 11/13/17 11/13/17 Range/Units 05:52 05:52 06:15 RBC (4.30-5.90) m/uL Hgb (13.0-17.5) gm/dL Hct (39.0-53.0) % MCV (80.0-100.0) fL RDW (11.5-15.5) % Lymphocytes # (1.0-4.8) k/uL PT 13.0 H (9.0-12.0) sec INR 1.4 H (<1.2) APTT 45.9 H (22.0-30.0) sec Potassium 5.9 H (3.5-5.1) mmol/L Chloride 109 H (98-107) mmol/L BUN 56 H (9-20) mg/dL Creatinine 2.48 H (0.66-1.25) mg/dL Glucose 306 H (74-99) mg/dL POC Glucose (mg/dL) 321 H (75-99) mg/dL 11/13/17 11/13/17 11/13/17 Range/Units 09:31 10:36 11:31 RBC (4.30-5.90) m/uL Hgb (13.0-17.5) gm/dL Hct (39.0-53.0) % MCV (80.0-100.0) fL RDW (11.5-15.5) % Lymphocytes # (1.0-4.8) k/uL PT (9.0-12.0) sec INR (<1.2) APTT (22.0-30.0) sec Potassium (3.5-5.1) mmol/L Chloride (98-107) mmol/L BUN (9-20) mg/dL Creatinine (0.66-1.25) mg/dL Glucose (74-99) mg/dL POC Glucose (mg/dL) 373 H 323 H 277 H (75-99) mg/dL 11/13/17 11/13/17 11/13/17 Range/Units 12:01 13:09 14:16 RBC (4.30-5.90) m/uL Hgb (13.0-17.5) gm/dL Hct (39.0-53.0) % MCV (80.0-100.0) fL RDW (11.5-15.5) % Lymphocytes # (1.0-4.8) k/uL PT (9.0-12.0) sec INR (<1.2) APTT (22.0-30.0) sec Potassium (3.5-5.1) mmol/L Chloride (98-107) mmol/L BUN (9-20) mg/dL Creatinine (0.66-1.25) mg/dL Glucose (74-99) mg/dL POC Glucose (mg/dL) 232 H 176 H 144 H (75-99) mg/dL Assessment and Plan Assessment: -Acute renal failure: Multifactorial and probably prerenal azotemia from excessive diuretic therapy -Chronic kidney disease stage III secondary to nephrosclerosis -Hyperkalemia: Secondary to acute renal failure, lisinopril, aldactone. Because of continued elevated potassium, underwent hemodialysis. -Metabolic encephalopathy: Secondary to acute renal failure and hospitalization in ICU delirium. -Congestive heart failure, chronic systolic dysfunction not in acute exacerbated , preserved LV function, EF 50-55%. -chronic kidney disease stage II: Secondary to probably diabetic nephropathy and hypertensive nephrosclerosis -Hypertension -Hyperlipidemia 7 coronary artery disease -Sleep apnea morbid obesity continue CPAP machine -Gout allopurinol and colchicine will be held because of her severe renal dysfunction -History of Atrial fibrillation, currently sinus rhythm -Gastroesophageal reflux disease. -Triple vessel disease, evaluated by cardiothoracic surgery, high surgical risk. -Diabetes mellitus Plan: Continue on current medication regime ,monitoring and symptomatic treatment. Maintain Renal diet. Insulin drip initiated, close monitoring of Accu-Cheks .recheck potassium this afternoon -received IV Lasix . Close monitoring of electrolytes and renal function with repeat labs ordered for a.m. PT/OT. Home with home care recommended at discharge. The impression and plan of care has been dictated as directed. : I performed a history and examination of this patient, discussed the same with the dictator. I agree with the dictator's note ,documented as a scribe. Any additional findings or plans will be noted.
[2017-11-13 16:58] LABS: Glucose,Whole Blood 131 mg/dL (75-99)
[2017-11-13 18:25] LABS: Glucose,Whole Blood 191 mg/dL (75-99)
[2017-11-13 21:25] LABS: Glucose,Whole Blood 131 mg/dL (75-99)
[2017-11-13] MEDS: PRAVASTATIN SODIUM 80 MG TAB PO SCH (21:54)
[2017-11-13 23:45] LABS: Glucose,Whole Blood 140 mg/dL (75-99)
[2017-11-14 01:36] LABS: Glucose,Whole Blood 168 mg/dL (75-99)
[2017-11-14 04:14] LABS: Glucose,Whole Blood 115 mg/dL (75-99)
[2017-11-14 05:36] LABS: Glucose,Whole Blood 151 mg/dL (75-99)
[2017-11-14] MEDS: CARVEDILOL 6.25 MG TAB PO SCH ×2 (06:43→16:49)
[2017-11-14 06:50] LABS: Anisocytosis Slight; Basophils % (A) 0 %; Eosinophils # (A) 0.3 k/uL (0-0.7); Eosinophils % (A) 4 %; HCT 30.9 % (39.0-53.0); HGB 9.5 gm/dL (13.0-17.5); Hypochromasia Moderate; Lymphocytes # (A) 1.2 k/uL (1.0-4.8); Lymphocytes % (A) 16 %; MCH 30.6 pg (25.0-35.0); MCHC 30.7 g/dL (31.0-37.0); MCV 99.9 fL (80.0-100.0); Macrocytosis Slight; Mean Platelet Volume 9.7; Monocytes # (A) 0.4 k/uL (0-1.0); Monocytes % (A) 6 %; Neutrophils # (A) 5.4 k/uL (1.3-7.7); Neutrophils % (A) 71 %; Platelet Count 183 k/uL (150-450); RBC 3.09 m/uL (4.30-5.90); RDW 16.3 % (11.5-15.5); WBC 7.6 k/uL (3.8-10.6)
[2017-11-14 07:44] LABS: Calcium 9.2 mg/dL (8.4-10.2); Potassium 5.6 mmol/L (3.5-5.1)
[2017-11-14 08:01] LABS: Glucose,Whole Blood 174 mg/dL (75-99)
[2017-11-14] MEDS: INSULIN ASPART 100 UNIT/ML 1 ML 10 ML VIAL SQ SCH ×2 (08:05→13:04)
[2017-11-14] MEDS: NITROGLYCERIN OINT 1 INCH/GM PACKET TOPICAL SCH ×3 (08:26→23:15)
[2017-11-14] MEDS: ASPIRIN 81 MG PO SCH (08:27)
[2017-11-14] MEDS: TAMSULOSIN 0.4 MG CAP.ER.24H PO SCH ×2 (08:27→21:01)
[2017-11-14] MEDS: AMIODARONE 200 MG TAB PO SCH (08:27)
[2017-11-14] MEDS: RANOLAZINE 500 MG TAB.ER.12H PO SCH ×2 (08:27→21:01)
[2017-11-14] MEDS: amLODIPine 5 MG TAB PO SCH (08:27)
[2017-11-14] MEDS: DABIGATRAN 75 MG CAP PO SCH ×2 (08:27→21:01)
[2017-11-14] MEDS: FAMOTIDINE 20 MG TAB PO SCH (08:27)
[2017-11-14] MEDS: PREGABALIN 75 MG CAP PO SCH ×2 (08:27→21:01)
[2017-11-14] MEDS: ALBUTEROL NEBULIZED 2.5 MG/3 ML INHALATION SCH ×4 (09:04→20:08)
[2017-11-14] MEDS ORDERED: SODIUM POLYSTYRENE SULFONATE 15 GM/60 ML BOTTLE PO STA (09:36)
[2017-11-14 09:55] LABS: Glucose,Whole Blood 197 mg/dL (75-99)
[2017-11-14 11:36] LABS: Glucose,Whole Blood 122 mg/dL (75-99)
--- NOTE | 2017-11-14 12:45 | P.PN ---
Subjective Progress Note Date: 11/14/17 Principal diagnosis: Acute on chronic kidney failure This is a 77-year-old male patient with known history of coronary artery disease , previous GA, congestion heart failure , and chronic renal failure in addition to diabetes mellitus and the patient has been on insulin pump, carotid artery disease, peripheral neuropathy, sleep apnea and chronic renal failure. The patient was hospitalized because of generalized weakness, exacerbation of CHF and acute kidney injury on top of chronic renal failure. During the course of this treatment, the patient went into progressive renal failure requiring hemodialysis where a few sessions of hemodialysis performed and ultimately the patient started picking up his urine output and currently is off dialysis for the past 3 days. The renal function steadily continues to improve and is down to 2.05 and this morning is up to 2.5. Noted the patient has been producing urine output and he has been a negative fluid balance. Fluid balance 4 2017 was -5.7 L, 11/10/2017 was -2.1 L and 11/11/2017 and was -664 mL. The patient is also on diuretics which was held for now. His chest x-ray from today shows no acute process and the patient is currently on 2 L of oxygen by nasal cannula without having any major respiratory distress. He is currently in a sinus rhythm and currently maintained on a combination of Coreg and amiodarone. He was having on and off chest pain and the patient was placed on Ranexa. He is most recent echocardiogram that was done during this current admission showed a low-normal ejection fraction of 50-55%. The rest of the cardiac structures were all within normal limits. No segmental wall motion abnormalities. The patient remains considerably weak. He still has his Hemodialysis catheter in his right groin. The patient is seen again today 11/13/2017 in follow-up on the selective care unit. He is currently awake and alert in no acute distress. He is up ambulating with physical therapy. He denies any worsening shortness of breath, cough or congestion. He is maintaining good O2 saturations in the 90s on 2 L/m per nasal cannula. Based chest x-ray shows evidence of congestive heart failure with cardiomegaly and mild central vascular congestion. He did receive a dose of Lasix 40 mg IV push this morning. He is voiding. White count 6.7. Hemoglobin 9.4. INR 1.4. Creatinine 2.48. The patient is seen again today 11/14/2017 in follow-up on the selective care unit. He is currently sitting up at the bedside. He is awake and alert in no acute distress. He denies any worsening shortness of breath, cough or congestion. He is maintaining good O2 saturations in the high 90s on 2 L/m per nasal cannula. He's been afebrile. Hemodynamically stable. White count 7.6. Hemoglobin 9.5. Creatinine 2.99. Potassium 5.6. He is making good urine. Blood glucose levels remaining elevated. Objective - Vital Signs Vital signs: Vital Signs Temp 97.6 F 11/14/17 04:00 Pulse 58 L 11/14/17 09:16 Resp 18 11/14/17 04:00 BP 128/57 11/14/17 04:00 Pulse Ox 98 11/14/17 04:00 Intake & Output 11/13/17 11/14/17 11/14/17 18:59 06:59 18:59 Intake Total 283.973 38.713 21.294 Output Total 1350 Balance 283.973 -1311.287 21.294 Weight 123.9 kg Intake: Intake, IV Titration 43.973 38.713 21.294 Amount Insulin Regular 100 unit 43.973 38.713 21.294 In Sodium Chloride 0.9% 100 ml @ Titrate IV .Q0M JOSÉ MIGUEL Rx#:[id number] Oral 240 Output: Urine 1350 Other: Voiding Method Urinal Urinal # Voids 1 - Exam GENERAL EXAM: Alert, pleasant 77-year-old obese white male comfortable in no apparent distress. HEAD: Normocephalic/atraumatic. EYES: Normal reaction of pupils, equal size. Conjunctiva pink, sclera white. NOSE: Clear with pink turbinates. THROAT: No erythema or exudates. NECK: No masses, no JVD, no thyroid enlargement, no adenopathy. CHEST: No chest wall deformity. Symmetrical expansion. LUNGS: Bibasilar crackles, more at the left base CVS: Regular rate and rhythm, normal S1 and S2, no gallops, no murmurs, no rubs ABDOMEN: Soft, nontender. No hepatosplenomegaly, normal bowel sounds, no guarding or rigidity. EXTREMITIES: No clubbing, trace pretibial edema, no cyanosis, 2+ pulses and upper and lower extremities. Chronic venous stasis changes in bilateral lower extremities. Right groin hemodialysis catheter is clean dry and intact. MUSCULOSKELETAL: Muscle strength is weak in all 4 extremities symmetrically. SPINE: No scoliosis or deformity SKIN: No rashes CENTRAL NERVOUS SYSTEM: Alert and oriented -3. No focal deficits, tone is normal in all 4 extremities. PSYCHIATRIC: Alert and oriented -3. Appropriate affect. Intact judgment and insight. - Labs CBC & Chem 7: 11/14/17 06:24 11/14/17 06:24 Labs: Abnormal Lab Results - Last 24 Hours (Table) 11/13/17 11/13/17 11/13/17 Range/Units 13:09 14:16 16:35 RBC (4.30-5.90) m/uL Hgb (13.0-17.5) gm/dL Hct (39.0-53.0) % MCHC (31.0-37.0) g/dL RDW (11.5-15.5) % Potassium (3.5-5.1) mmol/L Chloride (98-107) mmol/L BUN (9-20) mg/dL Creatinine (0.66-1.25) mg/dL Glucose (74-99) mg/dL POC Glucose (mg/dL) 176 H 144 H 131 H (75-99) mg/dL 11/13/17 11/13/17 11/13/17 Range/Units 18:19 21:19 23:25 RBC (4.30-5.90) m/uL Hgb (13.0-17.5) gm/dL Hct (39.0-53.0) % MCHC (31.0-37.0) g/dL RDW (11.5-15.5) % Potassium (3.5-5.1) mmol/L Chloride (98-107) mmol/L BUN (9-20) mg/dL Creatinine (0.66-1.25) mg/dL Glucose (74-99) mg/dL POC Glucose (mg/dL) 191 H 131 H 140 H (75-99) mg/dL 11/14/17 11/14/17 11/14/17 Range/Units 01:34 04:12 05:34 RBC (4.30-5.90) m/uL Hgb (13.0-17.5) gm/dL Hct (39.0-53.0) % MCHC (31.0-37.0) g/dL RDW (11.5-15.5) % Potassium (3.5-5.1) mmol/L Chloride (98-107) mmol/L BUN (9-20) mg/dL Creatinine (0.66-1.25) mg/dL Glucose (74-99) mg/dL POC Glucose (mg/dL) 168 H 115 H 151 H (75-99) mg/dL 11/14/17 11/14/17 11/14/17 Range/Units 06:24 06:24 07:42 RBC 3.09 L (4.30-5.90) m/uL Hgb 9.5 L (13.0-17.5) gm/dL Hct 30.9 L (39.0-53.0) % MCHC 30.7 L (31.0-37.0) g/dL RDW 16.3 H (11.5-15.5) % Potassium 5.6 H (3.5-5.1) mmol/L Chloride 108 H (98-107) mmol/L BUN 71 H (9-20) mg/dL Creatinine 2.99 H (0.66-1.25) mg/dL Glucose 158 H (74-99) mg/dL POC Glucose (mg/dL) 174 H (75-99) mg/dL 11/14/17 11/14/17 Range/Units 09:34 11:34 RBC (4.30-5.90) m/uL Hgb (13.0-17.5) gm/dL Hct (39.0-53.0) % MCHC (31.0-37.0) g/dL RDW (11.5-15.5) % Potassium (3.5-5.1) mmol/L Chloride (98-107) mmol/L BUN (9-20) mg/dL Creatinine (0.66-1.25) mg/dL Glucose (74-99) mg/dL POC Glucose (mg/dL) 197 H 122 H (75-99) mg/dL Assessment and Plan Assessment: Assessment 1 acute on chronic kidney failure, improving and the patient is producing adequate amount of urine output. Today's creatinine is up to 2.99. 2 acute hyperkalemia, improved as the patient was taken off Aldactone and lisinopril. Today's potassium level V.6. 3 coronary artery disease 4 history of congestion heart failure although most recent echo cardiac exam shows a preserved LV function without any wall motion abnormalities 5 episodic chest pain, possibly related to underlying coronary artery disease 6 history of atrial fibrillation current rhythm is sinus on amiodarone and beta blockers in follow-up of Coreg and the patient is on long-term anticoagulation utilizing pradaxa 7 obstructive sleep apnea, currently on a BiPAP at a pressure of 20/15 cm of water. 8 diabetes mellitus on insulin pump on outpatient basis 9 peripheral neuropathy 10 history of right carotid endarterectomy for carotid artery disease 11 previous history of cardiac arrest following a carotid artery surgery requiring intubation mechanical ventilation 12 acute hypoxic respiratory failure improved as the patient's volume status continues to improve, today's chest x-ray is within normal limits 13 chronic normocytic anemia him a likely multifactorial in a station was chronic renal failure 14 generalized weakness 15 BPH on tamsulosin 16 hyperlipidemia 17 hypertension Plan: The patient was seen and evaluated by Dr. Kimball. He is currently stable from the pulmonary and critical care standpoint. We will follow with the patient on as-needed basis. He may require an outpatient sleep study to reorder new home equipment. He will follow up with Dr. Kinney in the office. I, the cosigning physician, performed a history & physical examination of the patient. Lungs sounds with faint crackles in the bilateral posterior bases. Maintaining good O2 saturations in the 90s on 2 L/m per nasal cannula. I discussed the assessment and plan of care with my nurse practitioner, Fabiana Gee. I attest to the above note as dictated by her.
[2017-11-14 12:56] LABS: Glucose,Whole Blood 116 mg/dL (75-99)
[2017-11-14 14:20] LABS: Glucose,Whole Blood 121 mg/dL (75-99)
[2017-11-14 15:27] LABS: Glucose,Whole Blood 97 mg/dL (75-99)
[2017-11-14 15:41] LABS: Glucose,Whole Blood 104 mg/dL (75-99)
[2017-11-14 16:39] LABS: Glucose,Whole Blood 131 mg/dL (75-99)
--- NOTE | 2017-11-14 19:23 | PN ---
Date of service 11/14/2017 PROGRESS NOTE INTERVAL HISTORY: This is a 69-year-old male patient who admitted with acute renal failure and hyperkalemia, underwent hemodialysis for that, However, he continued to have elevated potassium level. His current potassium is 5.6, and he is to get Kayexalate 30 g p.o. x1 today. The patient is being followed by nephrology service. The patient had elevated blood sugar and he has been on a insulin drip. Blood sugars are stable this morning. Insulin drip is on hold currently. Patient has long-standing history of diabetes and has been on insulin pump at home. Family was at bedside, who was advised to bring the insulin pump. Once family brings the insulin pump, patient can be back on his own pump. Until then, we will continue with the insulin drip on as-needed basis. The patient was seen and examined this morning along with Dr. Caba. The patient is sitting at bedside. He has been using BiPAP overnight. His breathing is back to his baseline. His pulse ox is 96% on oxygen 2L/minute nasal cannula. Denied fever, chills, diaphoresis. Denied chest pain or palpitation. Denied worsening shortness of breath, cough or sputum production. Denied abdominal pain, nausea, vomiting, diarrhea or constipation. Denied urgency, frequency, dysuria. Denied hematuria, melena, hematochezia. CURRENT MEDICATIONS: 1. Xanax 0.5 mg every 6 hours p.r.n. 2. Amiodarone 200 mg daily. 3. Aspirin 81 mg daily. 4. Coreg 6.25 mg b.i.d. 5. Pradaxa 75 mg b.i.d. 6. Pepcid 20 mg daily. 7. NovoLog insulin drip. 8. Haldol 1 mg IV q.8 hours p.r.n. 9. Nitroglycerin sublingual p.r.n. for chest pain. 10.Nitro-Bid 1 inch q.8 hours. 11.Pravastatin 80 mg q.h.s. 12.Lyrica 75 mg b.i.d. 13.Ranexa 500 mg q.12 hours. 14.Flomax 0.4 mg b.i.d. 15.Tramadol 50 mg q.8 hours p.r.n. 16.Albuterol nebulized breathing treatment q.i.d. PHYSICAL EXAMINATION: VITAL SIGNS: Temperature 97.6, heart rate 56, respiratory rate 22, blood pressure 99/51, pulse ox 96% on oxygen 2 L/minute per nasal cannula. GENERAL: The patient is sitting at the side of the bed. Awake, oriented x3, not in any acute discomfort. HEENT: Pupils are round, equal, reacting to light. NECK: Supple. No JVD. CARDIOVASCULAR: S1, S2 present. HEART: Rate mild bradycardia. No S3 or S4. PULMONARY: Lung sounds are diminished in the bases. No wheezing or crackles. ABDOMEN: Obese, soft, nondistended, nontender. Bowel sounds are normoactive. MUSCULOSKELETAL: No joint swelling or deformity. EXTREMITIES: No significant edema. Pedal pulses 2+ bilaterally. NEUROLOGIC: Awake, oriented x3. No focal neural deficit noted. SKIN: No rash or lesions. PSYCHIATRIC: Anxious. Labs reviewed: Potassium 5.6, creatinine 2.9 today. ASSESSMENT AND PLAN: 1. Acute renal failure, multifactorial and probably secondary to prerenal azotemia from excessive diuretic therapy. 2. Chronic kidney disease stage 3 secondary to diabetic nephropathy, currently on hemodialysis. 3. Hyperkalemia secondary to acute renal failure. The patient did get another dose of Kayexalate. 4. Metabolic encephalopathy secondary to acute renal failure as well as intensive care unit psychosis, currently stable. 5. Congestive heart failure, combined systolic as well as diastolic dysfunction. 6. Diabetes mellitus, uncontrolled, currently stable. Blood sugars are controlled. Patient to be back on his insulin pump. 7. Hypertension. 8. Hyperlipidemia. 9. Acute hypoxic respiratory failure currently on supplemental oxygen. 10.Sleep apnea on CPAP at home. Currently using BiPAP in the hospital. 11.Coronary artery disease. 12.Paroxysmal atrial fibrillation, currently sinus rhythm. 13.Gastroesophageal reflux disease. 14.Coronary artery disease. 15.Anemia of chronic disease. I performed a history and examination of the patient, discussed the same with the dictator. I agree with the dictator's note, documented as a scribe. Any additional findings or plans will be noted. MMAMYL / NAOMIN: [id number] / MTDD
[2017-11-14 20:51] LABS: Appearance,Urine Clear (Clear); Bilirubin,Urine Negative (Negative); Blood,Urine Negative (Negative); Color,Urine Yellow; Glucose,Urine (UA) Negative (Negative); Hyaline Casts,Urine 13 /lpf (0-2); Ketones,Urine Negative (Negative); Leukocyte Esterase,Urine Moderate (Negative); Mucus,Urine Rare /hpf; Nitrite,Urine Negative (Negative); Protein,Urine Negative (Negative); RBC,Urine 2 /hpf (0-5); Specific Gravity,Urine 1.015 (1.001-1.035); Squamous Epithelial Cell,Urine 1 /hpf (0-4); Urobilinogen,Urine <2.0 mg/dL (<2.0); WBC,Urine 10 /hpf (0-5)
[2017-11-14] MEDS: DOCUSATE 100 MG CAP PO SCH (21:01)
[2017-11-14] MEDS: ALPRAZolam 0.5 MG TAB PO PRN (21:01)
[2017-11-14] MEDS: PRAVASTATIN SODIUM 80 MG TAB PO SCH (21:01)
--- NOTE | 2017-11-14 21:20 | PN ---
PROGRESS NOTE Patient is seen for followup for acute kidney injury and hyperkalemia. His potassium this morning was at 5.6. Overall, patient states he feels okay. Denies any chest pains or shortness of breath. PHYSICAL EXAMINATION: Blood pressure was 105/50, heart rate 56 per minute. He is afebrile. Examination of the heart: S1, S2. Examination of the lungs: Bilateral breath sounds are heard. Abdomen is soft, nontender. Examination of the lower extremities shows no significant edema. SENIOR HYDROGEOLOGIST exam is grossly intact. The patient states he has been voiding good. The 24 hour urine output charted at 1.3 L. LABS: Sodium 141, potassium 5.6, chloride 108, BUN 71, serum creatinine 2.9, hemoglobin of 9.5 g/dL. ASSESSMENT: 1. Acute kidney injury, ATN, currently nonoliguric. Serum creatinine is again higher. The patient did have Lasix yesterday. He also received hemodialysis initially after admission mainly for hyperkalemia. There are no nephrotoxic agents on board at this time. The patient is encouraged to maintain good oral intake. His blood pressure is not low and ultrasound did not show any evidence of obstruction. Currently the urinary catheter is out. We need to make sure he does not have high postvoid residuals. 2. Hyperkalemia associated with acute kidney injury on initial admission, currently improved. However, serum potassium tends to run on the high side. Yesterday patient was quite hyperglycemic and once the blood sugar came down, serum potassium has improved as well. We will give him a dose of Kayexalate today and continue with low-potassium diet. Need to rule out urinary retention now that the Boothe catheter has been discontinued. 3. Chronic obstructive pulmonary disease, currently stable. 4. History of CHF with preserved LV function. 5. Previous history of cardiac arrest. PLAN: Try to wean off insulin drip and increase long-acting insulin. Kayexalate x1. Continue low-potassium diet and check postvoid residuals to rule out urinary retention since the Boothe catheter is now discontinued. MMODL / IJN: [id number] /
[2017-11-14 21:29] LABS: Glucose,Whole Blood 143 mg/dL (75-99)
[2017-11-15 05:06] LABS: Glucose,Whole Blood 62 mg/dL (75-99)
[2017-11-15 05:36] LABS: Glucose,Whole Blood 74 mg/dL (75-99)
[2017-11-15] MEDS: CARVEDILOL 6.25 MG TAB PO SCH ×2 (06:28→17:36)
[2017-11-15 07:04] LABS: Glucose,Whole Blood 109 mg/dL (75-99)
[2017-11-15 07:58] LABS: Anisocytosis Slight; Basophils % (A) 0 %; Eosinophils # (A) 0.5 k/uL (0-0.7); Eosinophils % (A) 6 %; HGB 9.5 gm/dL (13.0-17.5); Hypochromasia Slight; Lymphocytes # (A) 1.2 k/uL (1.0-4.8); Lymphocytes % (A) 16 %; MCH 31.1 pg (25.0-35.0); MCHC 31.7 g/dL (31.0-37.0); MCV 98.3 fL (80.0-100.0); Macrocytosis Slight; Mean Platelet Volume 9.5; Monocytes # (A) 0.5 k/uL (0-1.0); Monocytes % (A) 7 %; Neutrophils % (A) 69 %; Platelet Count 192 k/uL (150-450); RBC 3.05 m/uL (4.30-5.90); RDW 16.1 % (11.5-15.5); WBC 7.3 k/uL (3.8-10.6)
[2017-11-15] MEDS: ALBUTEROL NEBULIZED 2.5 MG/3 ML INHALATION SCH ×4 (08:03→19:09)
[2017-11-15] MEDS: NITROGLYCERIN OINT 1 INCH/GM PACKET TOPICAL SCH ×3 (08:34→23:52)
[2017-11-15] MEDS: DOCUSATE 100 MG CAP PO SCH ×2 (08:35→20:23)
[2017-11-15] MEDS: amLODIPine 5 MG TAB PO SCH (08:35)
[2017-11-15] MEDS: ASPIRIN 81 MG PO SCH (08:35)
[2017-11-15] MEDS: DABIGATRAN 75 MG CAP PO SCH ×2 (08:35→20:23)
[2017-11-15] MEDS: FAMOTIDINE 20 MG TAB PO SCH (08:35)
[2017-11-15] MEDS: AMIODARONE 200 MG TAB PO SCH (08:35)
[2017-11-15] MEDS: TAMSULOSIN 0.4 MG CAP.ER.24H PO SCH ×2 (08:36→20:23)
[2017-11-15] MEDS: RANOLAZINE 500 MG TAB.ER.12H PO SCH ×2 (08:36→20:23)
[2017-11-15] MEDS: LACTULOSE 20 GM/30 ML CUP PO PRN ×2 (08:44→17:36)
[2017-11-15] MEDS: PREGABALIN 75 MG CAP PO SCH ×2 (08:44→20:23)
[2017-11-15 11:49] LABS: Glucose,Whole Blood 165 mg/dL (75-99)
--- NOTE | 2017-11-15 13:43 | PN ---
PROGRESS NOTE DATE OF SERVICE: 11/15/2017. INTERVAL HISTORY: This is a 77-year-old male patient who was admitted with acute renal failure and hyperkalemia. The patient underwent hemodialysis for hyperkalemia. However, dialysis on hold currently. Patient is followed by a strip polisher. The patient has obstructive sleep apnea. He uses CPAP at home. In the hospital setting, he has been using BiPAP during night. The patient was seen and examined this morning along with Dr. Caba. The patient is doing well. His breathing is stable. He is maintaining pulse ox mid 90s with oxygen per nasal cannula. He has uncontrolled diabetes and has been on insulin drip. However, he is placed back on his insulin pump. His blood sugars are stable currently. He was 109 this morning. His appetite is improved. His kidney function is improving. Current creatinine is 2.9 with a potassium 5.0. REVIEW OF SYSTEMS: The patient denied fever, chills or diaphoresis. Denied chest pain or palpitation. Denied worsening shortness of breath, cough, or sputum production. Denied abdominal pain, nausea, vomiting, diarrhea, constipation. Denied urgency, frequency, dysuria. Denied hematuria, melena, hematochezia. MEDICATIONS: Reviewed. PHYSICAL EXAMINATION: VITAL SIGNS: Temperature 97.4, heart rate 60, respiratory rate 20, blood pressure 128/56. He is on room air 95%. GENERAL: Patient is sitting at the side of the bed, awake, oriented x3, not in any acute discomfort. HEENT: Head normocephalic. Pupils equal, round, reacting to light. NECK: Supple. No JVD. CARDIOVASCULAR: S1, S2 present. Regular rate and rhythm. No S3 or S4. LUNGS: Sounds are diminished in the bases. No wheezing or crackles appreciated. Respirations are nonlabored. ABDOMEN: Obese, soft, nondistended, nontender. Bowel sounds are normoactive. MUSCULOSKELETAL: No joint pain, swelling, or deformity. EXTREMITIES: No significant edema. Peripheral pulses 2+ bilaterally. NEUROLOGIC: Awake, oriented x3. No focal neuro deficit noted. SKIN: No rash or lesions. PSYCHIATRIC: Normal mood and affect. LABORATORY: WBC 7.3, hemoglobin 9.5, hematocrit 30.0, platelet 192,. Sodium 142, potassium 5.0, chloride 106, BUN 71, creatinine 2.6, glucose 101. Calcium 9.0. ASSESSMENT AND PLAN: 1. Acute renal failure, multifactorial, probably secondary to prerenal azotemia from excessive diuretic therapy, currently improving. Nephrology is following the patient. 2. Chronic kidney disease stage 3 secondary to diabetic nephropathy. 3. Hyperkalemia secondary to acute renal failure, improving. Current potassium is 5.0. 4. Metabolic encephalopathy secondary to acute renal failure as well as intensive care unit psychosis, currently stable. The patient is awake, oriented x3. 5. Congestive heart failure, combined systolic as well as diastolic dysfunction. 6. Uncontrolled diabetes mellitus, insulin dependent. The patient is placed back on his insulin pump at home dosing, currently stable. 7. Hypertension, stable. 8. Hyperlipidemia. 9. Acute hypoxic respiratory failure, currently stable. 10.Sleep apnea on CPAP at home. The patient using BiPAP during the hospital stay. 11.Coronary artery disease. 12.Paroxysmal atrial fibrillation, currently sinus rhythm. 13.Gastroesophageal reflux disease. 14.Anemia of chronic disease. I performed a history and examination of the patient, discussed the same with the dictator. I agree with the dictator's note, documented as scribe. Any additional findings and plans will be noted. MMODL / IJN: [id number] /
--- NOTE | 2017-11-15 13:58 | PN ---
PROGRESS NOTE Patient is seen for followup for acute kidney injury and hyperkalemia. The patient is off of the insulin drip. He has had good urine output. Postvoid residual was not elevated. This morning he denies any significant complaints. Blood pressure is 128/56, heart rate 64 per minute. He is afebrile. Examination of the heart S1, S2. Examination lungs bilateral breath sounds are heard. Abdomen is soft, obese. Examination lower extremities shows chronic skin changes. No significant edema is noted. LAB: Show sodium 142, potassium 5.0, BUN 71, serum creatinine 2.6, hemoglobin 9.5 g/dL. ASSESSMENT: 1. Acute kidney injury, acute tubular necrosis, currently improving. 2. Hyperkalemia associated with acute kidney injury and more recently associated with hyperglycemia, currently improved. I will maintain the patient on small dose of oral loop diuretics. We can DC the dialysis catheter. 3. Hypertension, currently controlled. 4. Constipation. Will add lactulose. PLAN: Add lactulose. Continue low-potassium diet and possible discharge in a.m. We will maintain patient on low-dose oral loop diuretic. We also need to DC the dialysis catheter. MMODL / IJN: [id number] /
[2017-11-15 14:35] LABS: Glucose,Whole Blood 158 mg/dL (75-99)
[2017-11-15] MEDS: FUROSEMIDE 40 MG TAB PO SCH (15:27)
[2017-11-15] MEDS: LEVOFLOXACIN 250MG-D5W PMX 250 MG in DEXTROSE/WATER 1 50ML.BAG IVPB SCH (18:15)
[2017-11-15 18:36] LABS: Glucose,Whole Blood 138 mg/dL (75-99)
[2017-11-15] MEDS: PRAVASTATIN SODIUM 80 MG TAB PO SCH (20:23)
[2017-11-15 21:12] LABS: Glucose,Whole Blood 86 mg/dL (75-99)
--- NOTE | 2017-11-15 21:49 | PN ---
PROGRESS NOTE DATE OF SERVICE: 11/14/2017. INTERVAL HISTORY: This 77-year-old man who was admitted with acute renal failure, hyperkalemia, is being closely monitored at this time. The patient also had some difficulty in breathing and using the BiPAP also. Seen and evaluated the patient with the nurse practitioner. Please refer to nurse practitioner notes and impression documented as scribe for information. Prognosis guarded. Further recommendations to follow. MMODL / IJN: [id number] /
--- NOTE | 2017-11-15 21:49 | PN ---
PROGRESS NOTE DATE OF SERVICE: 11/15/2017 This 77-year-old gentleman who was admitted with acute renal failure also had hyperkalemia. The patient being closely monitored. Creatinine is 2.6 today. Seen and evaluated the patient along with the nurse practitioner. Please refer to the nurse practitioner notes and impressions documented for further information. MMODL / IJN: [id number] /
[2017-11-15 22:00] LABS: Glucose,Whole Blood 101 mg/dL (75-99)
[2017-11-16 02:51] LABS: Glucose,Whole Blood 112 mg/dL (75-99)
[2017-11-16] MEDS: ALPRAZolam 0.5 MG TAB PO PRN (04:43)
[2017-11-16] MEDS: CARVEDILOL 6.25 MG TAB PO SCH ×2 (06:31→17:31)
[2017-11-16 06:40] LABS: Glucose,Whole Blood 112 mg/dL (75-99)
[2017-11-16 07:25] LABS: Anisocytosis Slight; Basophils % (A) 0 %; Eosinophils # (A) 0.3 k/uL (0-0.7); Eosinophils % (A) 5 %; HCT 30.4 % (39.0-53.0); HGB 9.4 gm/dL (13.0-17.5); Hypochromasia Moderate; Lymphocytes # (A) 0.8 k/uL (1.0-4.8); Lymphocytes % (A) 13 %; MCH 31.1 pg (25.0-35.0); MCV 100.2 fL (80.0-100.0); Macrocytosis Slight; Mean Platelet Volume 8.7; Monocytes # (A) 0.4 k/uL (0-1.0); Monocytes % (A) 7 %; Neutrophils # (A) 4.5 k/uL (1.3-7.7); Neutrophils % (A) 73 %; Platelet Count 199 k/uL (150-450); RBC 3.03 m/uL (4.30-5.90); RDW 16.4 % (11.5-15.5); WBC 6.2 k/uL (3.8-10.6)
[2017-11-16] MEDS: ALBUTEROL NEBULIZED 2.5 MG/3 ML INHALATION SCH ×3 (07:28→16:37)
[2017-11-16 07:40] LABS: Potassium 5.2 mmol/L (3.5-5.1)
[2017-11-16] MEDS: NITROGLYCERIN OINT 1 INCH/GM PACKET TOPICAL SCH ×2 (09:04→19:14)
[2017-11-16] MEDS: ASPIRIN 81 MG PO SCH (09:05)
[2017-11-16] MEDS: RANOLAZINE 500 MG TAB.ER.12H PO SCH ×2 (09:05→19:13)
[2017-11-16] MEDS: PREGABALIN 75 MG CAP PO SCH ×2 (09:05→19:14)
[2017-11-16] MEDS: DOCUSATE 100 MG CAP PO SCH (09:05)
[2017-11-16] MEDS: FAMOTIDINE 20 MG TAB PO SCH (09:05)
[2017-11-16] MEDS: amLODIPine 5 MG TAB PO SCH (09:05)
[2017-11-16] MEDS: TAMSULOSIN 0.4 MG CAP.ER.24H PO SCH (09:05)
[2017-11-16] MEDS: FUROSEMIDE 40 MG TAB PO SCH (09:05)
[2017-11-16] MEDS: AMIODARONE 200 MG TAB PO SCH (09:05)
[2017-11-16] MEDS: DABIGATRAN 75 MG CAP PO SCH ×2 (09:05→19:14)
[2017-11-16] MEDS ORDERED: INSULIN PUMP ACTIVE INSULIN 1 EACH MISC MISCELLANE PRN (10:06)
[2017-11-16] MEDS ORDERED: INSULIN PUMP BASAL RATES 1 EACH MISC MISCELLANE PRN (10:06)
[2017-11-16] MEDS ORDERED: INSULIN ASPART 100 UNIT/ML 1 ML 10 ML VIAL SQ PRN (10:06)
[2017-11-16] MEDS ORDERED: INSULIN PUMP TARGET GLUCOSE 1 EACH MISC MISCELLANE PRN (10:06)
[2017-11-16] MEDS ORDERED: INSPUCOR MISCELLANE PRN (10:06)
[2017-11-16 11:25] LABS: Glucose,Whole Blood 142 mg/dL (75-99)
[2017-11-16 12:12] VITALS: RESP 20; TEMP 98.7
[2017-11-16] MEDS ORDERED: INSULIN PUMP MEAL BOLUS 1 UNIT MISC MISCELLANE SCH (12:30)
--- NOTE | 2017-11-16 15:08 | PN ---
PROGRESS NOTE The patient is seen for followup for acute kidney injury and hyperkalemia. His renal function continues to improve. He denies any significant complaints today. PHYSICAL EXAMINATION: Blood pressure is 110/56, heart rate 55 per minute. He is afebrile. Examination of the heart: S1, S2. Examination of the lungs: Bilateral breath sounds are heard. Abdomen is soft, nontender, obese. Examination lower extremities shows chronic skin changes. No edema is noted. CFD ENGINEER exam is grossly intact. LABS: Sodium 142, potassium 5.2, chloride 106, BUN 63, serum creatinine 2.3, hemoglobin 9.4 g/dL. ASSESSMENT: 1. Acute kidney injury, acute tubular necrosis, currently improved. Serum creatinine continues to decrease. Postvoid residual was not elevated. Ultrasound was unremarkable. 2. Hyperkalemia associated with acute kidney injury, improved. However, potassium tends to stay slightly on the higher side. I have advised him that he will need to maintain strict low-potassium diet and he may need Kayexalate 15-30 g about once a week. 3. Anemia with no active bleeding noted. Currently a full. 4. Constipation. 5. Hypertension currently controlled. PLAN: The patient can be discharged from nephrology standpoint, we need to DC the dialysis catheter prior to discharge. He will need low-potassium diet and repeat labs in about 2-3 days post discharge. I will maintain him on Kayexalate 30 g once a week. He can take his dose tomorrow. MMODL / IJN: [id number] /
--- NOTE | 2017-11-16 15:35 | DS ---
DISCHARGE SUMMARY DATE OF SERVICE: 11/16/2017. FINAL DIAGNOSES: 1. Acute renal failure, multifactorial, possibly secondary to prerenal azotemia from excessive diuretic therapy, improving. 2. Chronic kidney disease stage III, baseline with diabetic nephropathy. 3. Hyperkalemia secondary to renal failure. 4. Metabolic encephalopathy secondary to failure as well as ICU psychosis. 5. Congestive heart failure with a combination of systolic and diastolic dysfunction, chronic. 6. Diabetes mellitus, uncontrolled with hyperglycemia. 7. Hypertension. 8. History of hyperlipidemia. 9. Acute hypoxic respiratory failure, improved. 10.Sleep apnea, on CPAP. 11.History of coronary artery disease. 12.Paroxysmal atrial fibrillation, currently sinus rhythm. 13.Gastroesophageal reflux disease. 14.Anemia of chronic disease. DISCHARGE DISPOSITION: Patient will be discharged in stable condition with guarded prognosis. TOTAL TIME: 35 minutes. HISTORY OF PRESENT ILLNESS: This is a 77-year-old gentleman being followed by Dr. Kinney, admitted with multiple medical problems including renal failure, metabolic encephalopathy and as well as diabetes mellitus. The patient was monitored closely. The patient was treated symptomatically. The patient improved significantly. The patient was seen by multiple consultants during the hospital stay including Dr. Marsh, Dr. Kinney and Dr. Kimball. Nephrology also saw the patient and overall patient the patient significantly improved and the creatinine is stable around 2.3 at this time. On exam, vitals are stable. CARDIOVASCULAR: S1, S2. ABDOMEN: Soft. NERVOUS SYSTEM: No focal deficits. Discharge diet is cardiac diet. Activity limited until followup. Follow up with Dr. Kinney in 2-3 days. Follow with Nephrology as advised. MEDICATIONS ARE: 1. Tylenol 1300 mg p.r.n. 2. Tylenol 650 mg q.6 p.r.n. 3. Ventolin HFA 2 puffs q.i.d. p.r.n. 4. Cordarone 200 mg p.o. daily. 5. Aspirin 81 mg. 6. Symbicort 2 puffs b.i.d. 7. Insulin pump. 8. Imdur 30 mg p.o. daily. 9. Nitrostat 0.4 sublingual p.r.n. 10.Flomax 0.4 b.i.d. 11.Ultram 50 mg q.8 p.r.n. 12.Ambien 5-10 mg q.h.s. p.r.n. 13.Norvasc 5 mg p.o. daily. 14.Coreg 6.25 mg p.o. b.i.d. 15.Plavix 75 mg p.o. b.i.d. 16.Colace 100 mg p.o. b.i.d. 17.Pepcid 20 mg p.o. daily. 18.Lasix 40 mg p.o. daily. 19.Cephulac 30 mg p.o. b.i.d. p.r.n. 20.Levaquin 250 mg daily for 3 days. 21.pravachol 80 mg q.h.s. 22.Lyrica 75 mg p.o. b.i.d. 23.Ranexa 500 mg p.o. b.i.d. Please send a copy of followup labs to Dr. Kinney. Once again, the patient will be discharged in stable condition with guarded prognosis. MMODL / IJN: [id number] / [facility] CENTERLeonela
[2017-11-16 16:42] LABS: Glucose,Whole Blood 178 mg/dL (75-99)
[2017-11-16 17:58] VITALS: BP 132/59; PULSE 59
[2017-11-16] MEDS: LEVOFLOXACIN 250MG-D5W PMX 250 MG in DEXTROSE/WATER 1 50ML.BAG IVPB SCH (19:14)
[2017-11-17] MEDS ORDERED: SODIUM POLYSTYRENE SULFONATE 15 GM/60 ML BOTTLE PO SCH (09:00)
== END 2017-11-16 19:40 | disposition home health service (06) | DRG 682 ==
LOC: EC 22:22 → 6ICU 11-08 05:26 → 6SEL 11-12 15:04
PROVIDERS: ADMIT Hospitalist; ATTEND Hospitalist
PROC: 04HK33Z Insertion of Infusion Device into Right Femoral Artery, Percutaneous Approach (ICD-10-PCS; 2017-11-08)
PROC: 5A1D70Z Performance of Urinary Filtration, Intermittent, Less than 6 Hours Per Day (ICD-10-PCS; principal; 2017-11-09)
DX: N17.0 Acute kidney failure with tubular necrosis (principal); G93.41 Metabolic encephalopathy; J96.01 Acute respiratory failure with hypoxia; I13.0 Hypertensive heart and chronic kidney disease with heart failure and stage 1 through stage 4 chronic kidney disease, or unspecified chronic kidney disease; I42.9 Cardiomyopathy, unspecified; I50.42 Chronic combined systolic (congestive) and diastolic (congestive) heart failure; D63.8 Anemia in other chronic diseases classified elsewhere; E11.21 Type 2 diabetes mellitus with diabetic nephropathy; E11.22 Type 2 diabetes mellitus with diabetic chronic kidney disease; E11.42 Type 2 diabetes mellitus with diabetic polyneuropathy; E11.51 Type 2 diabetes mellitus with diabetic peripheral angiopathy without gangrene; E11.65 Type 2 diabetes mellitus with hyperglycemia; E66.01 Morbid (severe) obesity due to excess calories; E78.5 Hyperlipidemia, unspecified; Z99.89 Dependence on other enabling machines and devices; E83.39 Other disorders of phosphorus metabolism; E87.5 Hyperkalemia; F28 Other psychotic disorder not due to a substance or known physiological condition; G47.33 Obstructive sleep apnea (adult) (pediatric); H35.30 Unspecified macular degeneration; I25.10 Atherosclerotic heart disease of native coronary artery without angina pectoris; I25.2 Old myocardial infarction; I48.0 Paroxysmal atrial fibrillation; J44.9 Chronic obstructive pulmonary disease, unspecified; K21.9 Gastro-esophageal reflux disease without esophagitis; K59.00 Constipation, unspecified; M10.9 Gout, unspecified; N18.3 Chronic kidney disease, stage 3 (moderate); N40.0 Benign prostatic hyperplasia without lower urinary tract symptoms; T46.4X5A Adverse effect of angiotensin-converting-enzyme inhibitors, initial encounter; T50.0X5A Adverse effect of mineralocorticoids and their antagonists, initial encounter; T50.2X5A Adverse effect of carbonic-anhydrase inhibitors, benzothiadiazides and other diuretics, initial encounter; Z74.1 Need for assistance with personal care; Z79.01 Long term (current) use of anticoagulants; Z79.02 Long term (current) use of antithrombotics/antiplatelets; Z79.4 Long term (current) use of insulin; Z79.51 Long term (current) use of inhaled steroids; Z79.82 Long term (current) use of aspirin; Z79.899 Other long term (current) drug therapy; Z86.73 Personal history of transient ischemic attack (TIA), and cerebral infarction without residual deficits; Z86.74 Personal history of sudden cardiac arrest; Z96.41 Presence of insulin pump (external) (internal); Z96.651 Presence of right artificial knee joint; Z96.643 Presence of artificial hip joint, bilateral; Z98.42 Cataract extraction status, left eye; Z98.41 Cataract extraction status, right eye
CPT/HCPCS: 36415; 71045; 71046; 76770; 80048; 80053; 81001; 81003; 82550; 82553; 83036; 83735; 84100; 84132; 84439; 84443; 84484; 85025; 85610; 85730; 86704; 86706; 87086; 87340; 90935; 93005; 93306; 94640; 94644; 94660; 94760; 96361; 96365; 96375; 99291

== ENCOUNTER 2017-11-17 20:14 | Emergency (ER) | payer MEDICARE, BC ==
[2017-11-17 20:24] VITALS: PULSE 51; RESP 18
--- NOTE | 2017-11-17 21:59 | ED ---
General Adult HPI - General Chief complaint: Recheck/Abnormal Lab/Rx Stated complaint: port leaking Source: patient, family, RN notes reviewed Mode of arrival: wheelchair Limitations: no limitations - History of Present Illness Initial comments: Chief complaint and history of present illness is a 77-year-old male here with his . The patient is here only for a recheck of the bandages seemed to be draining clear liquid. The patient had a catheter placed for dialysis last week and it was removed just yesterday. The patient's been out of Hospital for 24 hours. Otherwise no complaints of pain just a clear drainage. - Related Data Home Medications Medication Instructions Recorded Confirmed Tamsulosin HCl [Flomax] 0.4 mg PO BID 03/04/17 11/17/17 Aspirin [Adult Low Dose Aspirin EC] 81 mg PO DAILY 04/27/17 11/17/17 Acetaminophen [Tylenol Arthritis] 1,300 mg PO Q12H PRN 08/06/17 11/17/17 INSULIN LISPRO (For Pump) [humaLOG 0.01 units SQ-PUMP CONTINUOUS 08/06/17 (For Pump)] Isosorbide Mononitrate [Isosorbide 30 mg PO DAILY 08/06/17 11/17/17 Mononitrate ER] Nitroglycerin Sl Tabs [Nitrostat] 0.4 mg SUBLINGUAL Q5M PRN 08/06/17 11/17/17 Zolpidem [Ambien] 5 - 10 mg PO HS 08/06/17 11/17/17 traMADol HCL [Ultram] 50 mg PO Q8HR PRN 08/06/17 11/17/17 Albuterol Inhaler [Ventolin Hfa 2 puff INHALATION RT-Q4H 10/26/17 11/17/17 Inhaler] Amiodarone [Cordarone] 200 mg PO DAILY 10/26/17 11/17/17 Budesonide/Formoterol Fumarate 2 puff INHALATION RT-BID 10/26/17 11/17/17 [Symbicort 160-4.5 Mcg Inhaler] Previous Rx's Medication Instructions Recorded amLODIPine BESYLATE [Norvasc] 5 mg PO DAILY #90 tablet 08/13/17 Carvedilol [Coreg] 6.25 mg PO BID-W/MEALS #60 tab 11/16/17 Dabigatran [Pradaxa] 75 mg PO BID #60 cap 11/16/17 Docusate [Colace] 100 mg PO BID cap 11/16/17 Famotidine [Pepcid] 20 mg PO DAILY #0 tab 11/16/17 Furosemide [Lasix] 40 mg PO DAILY #30 tab 11/16/17 Lactulose [Cephulac] 30 gm PO BID PRN #400 ml 11/16/17 Levofloxacin [Levaquin] 250 mg PO DAILY #2 tab 11/16/17 Pravastatin Sodium [Pravachol] 80 mg PO HS #30 tab 11/16/17 Pregabalin [Lyrica] 75 mg PO BID #60 cap 11/16/17 Ranolazine [Ranexa] 500 mg PO Q12HR #60 tab.er.12h 11/16/17 Allergies Allergy/AdvReac Type Severity Reaction Status Date / Time No Known Allergies Allergy Verified 11/17/17 20:46 Review of Systems ROS Statement: Those systems with pertinent positive or pertinent negative responses have been documented in the HPI. Review of systems no other complaints other than the drainage as noted above. The patient's past medical problems significant for CVA, diabetes mellitus, high disorder, GERD, hyperlipidemia, previous IA, OA, sleep apnea, syncopal episode gout. The patient's surgeries include cardiac ablation, joint replacement, orthopedic surgery, tonsillectomy and carpal tunnel right hand. Patient denies any ALLERGIES. Never smoked. Denies alcohol use. ROS Other: All systems not noted in ROS Statement are negative. Past Medical History Past Medical History: CVA/TIA, Diabetes Mellitus, Eye Disorder, GERD/Reflux, Hyperlipidemia, Myocardial Infarction (IA), Osteoarthritis (OA), Sleep Apnea/ CPAP/BIPAP, Syncope Additional Past Medical History / Comment(s): Gout, blockage left carotid artery , neuropathy, diverticulitis, insulin pump, uses a walker- wheelchair for distance. edema shaka legs-(left worse)-wears compression hose, stroke 05/08/17- left side weakness, hx pericardial effusion, macular degeneration left eye-gets injections Last Myocardial Infarction Date:: 05/08/17 History of Any Multi-Drug Resistant Organisms: None Reported Past Surgical History: Cardiac Ablation, Joint Replacement, Orthopedic Surgery, Tonsillectomy Additional Past Surgical History / Comment(s): carpal tunnel rt wrist, rt knee replacement, shaka hip replacement, drainage for pericaridal effusion, cardioversion x 2, arthroscopy shaka knees, rt carotid endarterectomy, trigger finger shaka hands, shaka cataracts Past Anesthesia/Blood Transfusion Reactions: No Reported Reaction Past Psychological History: No Psychological Hx Reported Smoking Status: Never smoker Past Alcohol Use History: None Reported Past Drug Use History: None Reported - Past Family History Mother Family Medical History: No Reported History Daughter(s) Family Medical History: Cancer General Exam - General Exam Comments Initial Comments: Vital signs show started 98.0 pulse 51 respiratory rate 18 pulse ox 97% room air blood pressure 143/65. Pertinent to the patient's visit this is examination of the area with the patient had a dressing placed in the right inguinal canal. This was removed. No evidence of infection no losing no bleeding. The puncture site used for dialysis as closed. It was redressed with sterile bandage. No other complaints Limitations: no limitations Course Vital Signs 11/17/17 20:17 Temperature 98 F Pulse Rate 51 L Respiratory 18 Rate Blood Pressure 143/65 O2 Sat by Pulse 97 Oximetry Medical Decision Making - Medical Decision Making Medical decision making; the patient's here just for examination of the bandage had been placed post dialysis through the right groin. There was a small amount of clear liquid drainage he wanted to get checked. The bandage is clean after removal in the ER sterile dressing was reapplied. No other complaints or problems. The patient will be following up with his family physician. Disposition Clinical Impression: Encounter for wound re-check Disposition: HOME SELF-CARE Condition: Stable Instructions: Acute Wounds (ED) Is patient prescribed a controlled substance at d/c from ED?: No Referrals: Patrick Mckenzie Jr, DO [Primary Care Provider] - 1-2 days Time of Disposition: 21:59
[2017-11-17 22:28] VITALS: BP 135/62; TEMP 97.7
== END 2017-11-17 22:27 | disposition home or self-care (01) ==
LOC: EC 20:14
DX: Z48.03 Encounter for change or removal of drains (principal); E11.40 Type 2 diabetes mellitus with diabetic neuropathy, unspecified; I25.2 Old myocardial infarction; G47.30 Sleep apnea, unspecified; Z79.82 Long term (current) use of aspirin; Z79.4 Long term (current) use of insulin; Z79.51 Long term (current) use of inhaled steroids; Z79.899 Other long term (current) drug therapy; Z86.73 Personal history of transient ischemic attack (TIA), and cerebral infarction without residual deficits; Z96.653 Presence of artificial knee joint, bilateral
CPT/HCPCS: 99282

== ENCOUNTER → 2018-01-25 | Outpatient (CLI) | payer MEDICARE, BC | END | disposition home or self-care (01) | LOC: LABWHC1 14:32 | PROVIDERS: ATTEND Urology | DX: R97.20 Elevated prostate specific antigen [PSA] (principal) | CPT/HCPCS: 36415; 84153; 84154 ==

== ENCOUNTER 2018-02-01 12:05 | Inpatient (IN) | payer MEDICARE, BC ==
--- NOTE | 2018-02-01 12:39 | ED ---
General Adult HPI - General Chief complaint: Weakness Stated complaint: SOB sent by PA Time Seen by Provider: 02/01/18 12:22 Source: patient, RN notes reviewed, old records reviewed Mode of arrival: ambulatory Limitations: no limitations - History of Present Illness Initial comments: 77-year-old male history of CAD, COPD, chronic kidney disease presenting from the nephrologists office with dyspnea, hypoxia, and significant weight gain over the past 2 months. Patient has, given medical history including SD, CVA and cardiac arrest. He is currently on 80 mg of Lasix in the morning followed by 40 mg in the evening every other day and 40 mg twice a day on the opposing days. Despite this he has had significant weight gain including 15 pounds over the past 2 weeks. Edema that has progressed up his legs into his abdomen. No fever or chills. No significant cough. No chest pain. - Related Data Home Medications Medication Instructions Recorded Confirmed Tamsulosin HCl [Flomax] 0.4 mg PO BID 03/04/17 02/01/18 Aspirin [Adult Low Dose Aspirin EC] 81 mg PO DAILY 04/27/17 02/01/18 Acetaminophen [Tylenol Arthritis] 1,300 mg PO Q12H PRN 08/06/17 02/01/18 INSULIN LISPRO (For Pump) [humaLOG 0.01 units SQ-PUMP CONTINUOUS 08/06/17 (For Pump)] Isosorbide Mononitrate [Isosorbide 30 mg PO DAILY 08/06/17 02/01/18 Mononitrate ER] Nitroglycerin Sl Tabs [Nitrostat] 0.4 mg SUBLINGUAL Q5M PRN 08/06/17 02/01/18 Zolpidem [Ambien] 5 - 10 mg PO HS PRN 08/06/17 02/01/18 traMADol HCL [Ultram] 50 mg PO Q8HR PRN 08/06/17 02/01/18 Albuterol Inhaler [Ventolin Hfa 2 puff INHALATION RT-Q4H 10/26/17 02/01/18 Inhaler] Amiodarone [Cordarone] 200 mg PO DAILY 10/26/17 02/01/18 Budesonide/Formoterol Fumarate 2 puff INHALATION RT-BID 10/26/17 02/01/18 [Symbicort 160-4.5 Mcg Inhaler] Furosemide [Lasix] 40 mg PO HS 02/01/18 02/01/18 Furosemide [Lasix] 40 mg PO Q48H 02/01/18 02/01/18 Furosemide [Lasix] 80 mg PO Q48H 02/01/18 02/01/18 Previous Rx's Medication Instructions Recorded amLODIPine BESYLATE [Norvasc] 5 mg PO DAILY #90 tablet 08/13/17 Carvedilol [Coreg] 6.25 mg PO BID-W/MEALS #60 tab 11/16/17 Dabigatran [Pradaxa] 75 mg PO BID #60 cap 11/16/17 Docusate [Colace] 100 mg PO BID cap 11/16/17 Famotidine [Pepcid] 20 mg PO DAILY #0 tab 11/16/17 Pravastatin Sodium [Pravachol] 80 mg PO HS #30 tab 11/16/17 Pregabalin [Lyrica] 75 mg PO BID #60 cap 11/16/17 Allergies Allergy/AdvReac Type Severity Reaction Status Date / Time No Known Allergies Allergy Verified 02/01/18 13:00 Review of Systems ROS Statement: Those systems with pertinent positive or pertinent negative responses have been documented in the HPI. ROS Other: All systems not noted in ROS Statement are negative. Past Medical History Past Medical History: CVA/TIA, Diabetes Mellitus, Eye Disorder, GERD/Reflux, Hyperlipidemia, Myocardial Infarction (SD), Osteoarthritis (OA), Sleep Apnea/ CPAP/BIPAP, Syncope Additional Past Medical History / Comment(s): Gout, blockage left carotid artery , neuropathy, diverticulitis, insulin pump, uses a walker- wheelchair for distance. edema shaka legs-(left worse)-wears compression hose, stroke 05/08/17- left side weakness, hx pericardial effusion, macular degeneration left eye-gets injections Last Myocardial Infarction Date:: 05/08/17 History of Any Multi-Drug Resistant Organisms: None Reported Past Surgical History: Cardiac Ablation, Joint Replacement, Orthopedic Surgery, Tonsillectomy Additional Past Surgical History / Comment(s): carpal tunnel rt wrist, rt knee replacement, shaka hip replacement, drainage for pericaridal effusion, cardioversion x 2, arthroscopy shaka knees, rt carotid endarterectomy, trigger finger shaka hands, shaka cataracts Past Anesthesia/Blood Transfusion Reactions: No Reported Reaction Past Psychological History: No Psychological Hx Reported Smoking Status: Never smoker Past Alcohol Use History: None Reported Past Drug Use History: None Reported - Past Family History Mother Family Medical History: No Reported History Daughter(s) Family Medical History: Cancer General Exam Limitations: no limitations General appearance: alert, in no apparent distress Head exam: Present: atraumatic, normocephalic Eye exam: Present: normal appearance, PERRL ENT exam: Present: normal exam Neck exam: Present: normal inspection. Absent: tenderness, meningismus Respiratory exam: Present: respiratory distress (mild), wheezes, rales, decreased breath sounds Cardiovascular Exam: Present: regular rate, normal rhythm GI/Abdominal exam: Present: distended. Absent: tenderness, guarding Extremities exam: Present: pedal edema Neurological exam: Present: alert, oriented X3, CN II-XII intact Skin exam: Present: warm, dry, intact Course Vital Signs 02/01/18 02/01/18 02/01/18 12:13 12:30 13:00 Temperature 97.6 F Pulse Rate 67 52 L 49 L Respiratory 20 18 18 Rate Blood Pressure 117/59 122/63 155/68 O2 Sat by Pulse 90 L 95 96 Oximetry 02/01/18 02/01/18 13:30 14:00 Temperature Pulse Rate 48 L 46 L Respiratory 20 20 Rate Blood Pressure 144/68 137/66 O2 Sat by Pulse 96 96 Oximetry EKG Findings - EKG Comments: EKG Findings:: EKG: Sinus bradycardia with first-degree AV block, rate of 51, LA interval 232, QRS duration 90, QTC 422, no ST segment elevation, ST segment depression and T-wave inversion in the lateral precordium. Medical Decision Making - Medical Decision Making 77-year-old male with fluid overload and hypoxia presenting from the nephrologists office. X-rays obtained, does show pulmonary edema and effusion. Patient has normal white blood cell count, stable hemoglobin, creatinine is at baseline. Patient is started on Lasix infusion will be admitted for IV diuresis. Case discussed with the admitting physician. Nephrology and cardiology will be placed on consult. - Lab Data Result diagrams: 02/01/18 13:00 02/01/18 13:00 Lab Results 02/01/18 02/01/18 02/01/18 Range/Units 13:00 13:00 13:00 WBC 7.9 (3.8-10.6) k/uL RBC 3.55 L (4.30-5.90) m/uL Hgb 10.1 L (13.0-17.5) gm/dL Hct 32.7 L (39.0-53.0) % MCV 92.1 (80.0-100.0) fL MCH 28.3 (25.0-35.0) pg MCHC 30.8 L (31.0-37.0) g/dL RDW 17.5 H (11.5-15.5) % Plt Count 177 (150-450) k/uL Neutrophils % 74 % Lymphocytes % 11 % Monocytes % 9 % Eosinophils % 4 % Basophils % 0 % Neutrophils # 5.8 (1.3-7.7) k/uL Lymphocytes # 0.9 L (1.0-4.8) k/uL Monocytes # 0.7 (0-1.0) k/uL Eosinophils # 0.3 (0-0.7) k/uL Basophils # 0.0 (0-0.2) k/uL Hypochromasia Marked Anisocytosis Slight PT (9.0-12.0) sec INR (<1.2) APTT (22.0-30.0) sec Sodium 144 (137-145) mmol/L Potassium 4.8 (3.5-5.1) mmol/L Chloride 108 H (98-107) mmol/L Carbon Dioxide 26 (22-30) mmol/L Anion Gap 10 mmol/L BUN 36 H (9-20) mg/dL Creatinine 1.92 H (0.66-1.25) mg/dL Est GFR (CKD-EPI)AfAm 38 (>60 ml/min/1.73 sqM) Est GFR (CKD-EPI)NonAf 33 (>60 ml/min/1.73 sqM) Glucose 85 (74-99) mg/dL Calcium 8.8 (8.4-10.2) mg/dL Magnesium 2.4 H (1.6-2.3) mg/dL Total Bilirubin 0.8 (0.2-1.3) mg/dL AST 36 (17-59) U/L ALT 19 L (21-72) U/L Alkaline Phosphatase 49 (38-126) U/L Total Creatine Kinase 180 H (55-170) U/L CK-MB (CK-2) 4.1 H (0.0-2.4) ng/mL CK-MB (CK-2) Rel Index 2.3 Troponin I <0.012 (0.000-0.034) ng/mL NT-Pro-B Natriuret Pep pg/mL Total Protein 7.4 (6.3-8.2) g/dL Albumin 3.8 (3.5-5.0) g/dL 02/01/18 02/01/18 Range/Units 13:00 13:00 WBC (3.8-10.6) k/uL RBC (4.30-5.90) m/uL Hgb (13.0-17.5) gm/dL Hct (39.0-53.0) % MCV (80.0-100.0) fL MCH (25.0-35.0) pg MCHC (31.0-37.0) g/dL RDW (11.5-15.5) % Plt Count (150-450) k/uL Neutrophils % % Lymphocytes % % Monocytes % % Eosinophils % % Basophils % % Neutrophils # (1.3-7.7) k/uL Lymphocytes # (1.0-4.8) k/uL Monocytes # (0-1.0) k/uL Eosinophils # (0-0.7) k/uL Basophils # (0-0.2) k/uL Hypochromasia Anisocytosis PT 14.5 H (9.0-12.0) sec INR 1.6 H (<1.2) APTT 44.5 H (22.0-30.0) sec Sodium (137-145) mmol/L Potassium (3.5-5.1) mmol/L Chloride (98-107) mmol/L Carbon Dioxide (22-30) mmol/L Anion Gap mmol/L BUN (9-20) mg/dL Creatinine (0.66-1.25) mg/dL Est GFR (CKD-EPI)AfAm (>60 ml/min/1.73 sqM) Est GFR (CKD-EPI)NonAf (>60 ml/min/1.73 sqM) Glucose (74-99) mg/dL Calcium (8.4-10.2) mg/dL Magnesium (1.6-2.3) mg/dL Total Bilirubin (0.2-1.3) mg/dL AST (17-59) U/L ALT (21-72) U/L Alkaline Phosphatase (38-126) U/L Total Creatine Kinase (55-170) U/L CK-MB (CK-2) (0.0-2.4) ng/mL CK-MB (CK-2) Rel Index Troponin I (0.000-0.034) ng/mL NT-Pro-B Natriuret Pep 926 pg/mL Total Protein (6.3-8.2) g/dL Albumin (3.5-5.0) g/dL Disposition Clinical Impression: Chronic renal failure, Fluid overload Disposition: ADMITTED IP TO THIS [facility] Condition: Stable Is patient prescribed a controlled substance at d/c from ED?: No Referrals: Patrick Mckenzie Jr, [Primary Care Provider] - 1-2 days Decision to Admit Reason: Admit from EC Decision Date: 02/01/18 Decision Time: 14:27
[2018-02-01 13:22] LABS: Anisocytosis Slight; Basophils % (A) 0 %; Eosinophils # (A) 0.3 k/uL (0-0.7); Eosinophils % (A) 4 %; HCT 32.7 % (39.0-53.0); HGB 10.1 gm/dL (13.0-17.5); Hypochromasia Marked; Lymphocytes # (A) 0.9 k/uL (1.0-4.8); Lymphocytes % (A) 11 %; MCH 28.3 pg (25.0-35.0); MCHC 30.8 g/dL (31.0-37.0); MCV 92.1 fL (80.0-100.0); Mean Platelet Volume 8.1; Monocytes # (A) 0.7 k/uL (0-1.0); Monocytes % (A) 9 %; Neutrophils # (A) 5.8 k/uL (1.3-7.7); Neutrophils % (A) 74 %; Platelet Count 177 k/uL (150-450); RBC 3.55 m/uL (4.30-5.90); RDW 17.5 % (11.5-15.5); WBC 7.9 k/uL (3.8-10.6)
[2018-02-01 13:30] LABS: Albumin 3.8 g/dL (3.5-5.0); Calcium 8.8 mg/dL (8.4-10.2); Magnesium 2.4 mg/dL (1.6-2.3); Total Bilirubin 0.8 mg/dL (0.2-1.3); Total Protein 7.4 g/dL (6.3-8.2)
[2018-02-01 13:35] LABS: Potassium 4.8 mmol/L (3.5-5.1)
[2018-02-01 13:40] LABS: INR 1.6 (<1.2); Partial Thromboplastin Time 44.5 sec (22.0-30.0); Prothrombin Time 14.5 sec (9.0-12.0)
[2018-02-01 13:42] LABS: Creatine Kinase 180 U/L (55-170)
--- NOTE | 2018-02-01 13:52 | XR ---
EXAMINATION TYPE: XR chest 2V DATE OF EXAM: 02/01/2018 COMPARISON: 11/13/2017 TECHNIQUE: PA and lateral views submitted. HISTORY: Shortness of breath FINDINGS: Bilateral patchy infiltrates are seen in the heart is enlarged. Atherosclerotic change aorta. No pneu mothorax. Tiny right pleural effusion. IMPRESSION: 1. Patchy bilateral infiltrate with tiny right effusion. Underlying venous congestion not excluded co rrelate clinically.
[2018-02-01 13:55] LABS: Creatine Kinase MB 4.1 ng/mL (0.0-2.4); Troponin I <0.012 ng/mL (0.000-0.034)
[2018-02-01] MEDS ORDERED: FUROSEMIDE 250 MG in SODIUM CHLORIDE 0.9% 225 ML IVP ONE (14:00)
[2018-02-01] MEDS ORDERED: NALOXONE 0.4 MG/ML 1 ML VIAL IV PRN (14:20)
[2018-02-01] MEDS ORDERED: NITROGLYCERIN SL TABS 0.4 MG TAB SUBLINGUAL PRN (14:42)
[2018-02-01] MEDS ORDERED: ZOLPIDEM 5 MG TAB PO PRN (14:42)
[2018-02-01] MEDS ORDERED: INSULIN LISPRO (For Pump) 100 UNIT/ML VIAL SQ-PUMP SCH (14:45)
[2018-02-01 14:56] LABS: Glucose,Whole Blood 68 mg/dL (75-99)
[2018-02-01 15:19] LABS: Glucose,Whole Blood 67 mg/dL (75-99)
[2018-02-01] MEDS ORDERED: INSULIN PUMP TARGET GLUCOSE 1 EACH MISC MISCELLANE PRN (15:31)
[2018-02-01] MEDS ORDERED: INSULIN PUMP ACTIVE INSULIN 1 EACH MISC MISCELLANE PRN (15:31)
[2018-02-01] MEDS ORDERED: INSULIN PUMP BASAL RATES 1 EACH MISC MISCELLANE PRN (15:31)
[2018-02-01] MEDS ORDERED: INSULIN ASPART 100 UNIT/ML 1 ML 10 ML VIAL SQ PRN (15:31)
[2018-02-01] MEDS ORDERED: INSPUCOR MISCELLANE PRN (15:31)
[2018-02-01 15:52] LABS: Glucose,Whole Blood 106 mg/dL (75-99)
[2018-02-01 16:42] LABS: Glucose,Whole Blood 121 mg/dL (75-99)
[2018-02-01] MEDS: CARVEDILOL 6.25 MG TAB PO SCH (17:24)
[2018-02-01 17:27] LABS: Appearance,Urine Clear (Clear); Bilirubin,Urine Negative (Negative); Blood,Urine Negative (Negative); Color,Urine Light Yellow; Glucose,Urine (UA) Negative (Negative); Ketones,Urine Negative (Negative); Leukocyte Esterase,Urine Negative (Negative); Nitrite,Urine Negative (Negative); PH, Urine 5.5 (5.0-8.0); Protein,Urine Negative (Negative); Specific Gravity,Urine 1.009 (1.001-1.035); Urobilinogen,Urine <2.0 mg/dL (<2.0)
[2018-02-01] MEDS ORDERED: INSULIN PUMP MEAL BOLUS 1 UNIT MISC MISCELLANE SCH (17:30)
[2018-02-01] MEDS: ACETAMINOPHEN TAB 500 MG TAB PO PRN (18:09)
[2018-02-01] MEDS: ALBUTEROL NEBULIZED 2.5 MG/3 ML INHALATION PRN (21:06)
[2018-02-01] MEDS: BUDESONIDE 1 MG/2 ML NEBU INHALATION SCH (21:07)
[2018-02-01] MEDS: FORMOTEROL FUMARATE 20 MCG/2 ML NEBU INHALATION SCH (21:07)
[2018-02-01 21:12] LABS: Glucose,Whole Blood 193 mg/dL (75-99)
[2018-02-01 21:20] LABS: Hemoglobin A1C 6.3 % (4.0-6.0)
[2018-02-01] MEDS: PRAVASTATIN SODIUM 80 MG TAB PO SCH (21:39)
[2018-02-01] MEDS: TAMSULOSIN 0.4 MG CAP.ER.24H PO SCH (21:39)
[2018-02-01] MEDS: DOCUSATE 100 MG CAP PO SCH (21:39)
[2018-02-01] MEDS: PREGABALIN 75 MG CAP PO SCH (21:39)
[2018-02-01] MEDS: INSULIN ASPART 100 UNIT/ML 1 ML 10 ML VIAL SQ SCH (21:40)
[2018-02-01] MEDS: DABIGATRAN 75 MG CAP PO SCH (22:38)
[2018-02-02 02:00] LABS: Glucose,Whole Blood 137 mg/dL (75-99)
[2018-02-02 06:25] LABS: Glucose,Whole Blood 159 mg/dL (75-99)
[2018-02-02 06:39] LABS: Calcium 8.8 mg/dL (8.4-10.2); Potassium 4.2 mmol/L (3.5-5.1)
[2018-02-02] MEDS: CARVEDILOL 6.25 MG TAB PO SCH ×2 (06:43→17:39)
[2018-02-02] MEDS: INSULIN ASPART 100 UNIT/ML 1 ML 10 ML VIAL SQ SCH ×4 (06:43→20:50)
[2018-02-02] MEDS: FORMOTEROL FUMARATE 20 MCG/2 ML NEBU INHALATION SCH ×2 (07:55→19:56)
[2018-02-02] MEDS: BUDESONIDE 1 MG/2 ML NEBU INHALATION SCH ×2 (07:55→19:56)
[2018-02-02] MEDS: ALBUTEROL NEBULIZED 2.5 MG/3 ML INHALATION PRN ×3 (07:55→19:56)
[2018-02-02] MEDS: ASPIRIN 81 MG PO SCH (10:12)
[2018-02-02] MEDS: TAMSULOSIN 0.4 MG CAP.ER.24H PO SCH ×2 (10:12→20:41)
[2018-02-02] MEDS: AMIODARONE 200 MG TAB PO SCH (10:12)
[2018-02-02] MEDS: ISOSORBIDE MONONITRATE ER 30 MG TAB.ER.24H PO SCH (10:12)
[2018-02-02] MEDS: PREGABALIN 75 MG CAP PO SCH ×2 (10:12→20:42)
[2018-02-02] MEDS: FAMOTIDINE 20 MG TAB PO SCH (10:12)
[2018-02-02] MEDS: DOCUSATE 100 MG CAP PO SCH ×2 (10:12→20:43)
[2018-02-02] MEDS: amLODIPine 5 MG TAB PO SCH (10:13)
[2018-02-02 11:49] LABS: Glucose,Whole Blood 150 mg/dL (75-99)
[2018-02-02] MEDS: DABIGATRAN 75 MG CAP PO SCH ×2 (12:41→20:44)
--- NOTE | 2018-02-02 13:17 | ECHOF ---
Referral Reason:chf MEASUREMENTS -------- HEIGHT: 175.3 cm WEIGHT: 134.3 kg BP: 156/73 RVIDd: 4.0 cm (< 3.3) IVSd: 1.6 cm (0.6 - 1.1) LVIDd: 4.2 cm (3.9 - 5.3) LVPWd: 1.7 cm (0.6 - 1.1) IVSs: 2.0 cm LVIDs: 2.2 cm LVPWs: 2.2 cm Ao Diam: 3.0 cm (2.0 - 3.7) AV Cusp: 1.8 cm (1.5 - 2.6) LA Diam: 4.6 cm (2.7 - 3.8) MV EXCURSION: 13.449 mm (> 18.000) MV EF SLOPE: 84 mm/s (70 - 150) EPSS: 0.7 cm MV E Otis: 1.03 m/s MV DecT: 238 ms MV A Otis: 0.45 m/s MV E/A Ratio: 2.27 RAP: 5.00 mmHg RVSP: 8.59 mmHg FINDINGS -------- Sinus rhythm. This was a technically difficult study with suboptimal views. The left ventricular size is normal. There is severe concentric left ventricular hypertrophy. Ove rall left ventricular systolic function is normal with, an EF between 55 - 60 %. The right ventricle is moderately enlarged. The left atrium is mildly dilated. The right atrium is normal in size. Lumason used The aortic valve was not well visualized. The mitral valve was not well visualized. There is trace mitral regurgitation. The tricuspid valve was not well visualized. Trace tricuspid regurgitation present. The right yesenia tricular systolic pressure, as measured by Doppler, is 8.59mmHg. The pulmonic valve was not well visualized. The aortic root size is normal. There is no pericardial effusion. CONCLUSIONS -------- 1. Sinus rhythm. 2. This was a technically difficult study with suboptimal views. 3. The left ventricular size is normal. 4. There is severe concentric left ventricular hypertrophy. 5. Overall left ventricular systolic function is normal with, an EF between 55 - 60 %. 6. The right ventricle is moderately enlarged. 7. The left atrium is mildly dilated. 8. Lumason used 9. The aortic valve was not well visualized. 10. The mitral valve was not well visualized. 11. There is trace mitral regurgitation. 12. The tricuspid valve was not well visualized. 13. Trace tricuspid regurgitation present. 14. The right ventricular systolic pressure, as measured by Doppler, is 8.59mmHg. 15. The pulmonic valve was not well visualized. 16. The aortic root size is normal. 17. There is no pericardial effusion. [employer] OPERATOR: Piper Nesbitt RDCS
[2018-02-02] MEDS: ACETAMINOPHEN TAB 500 MG TAB PO PRN ×2 (13:32→20:55)
--- NOTE | 2018-02-02 13:33 | P.NPCON ---
History of Present Illness - Reason for Consult acute renal failure, chronic renal failure - History of Present Illness Reason for consultation: Acute kidney injury on chronic kidney disease History of present illness: Patient is a 77-year-old male seen in consultation for acute kidney injury on chronic kidney disease. Patient has chronic kidney disease stage III with baseline creatinine in the range of 1.3-1.4. Patient has history of diastolic CHF. Patient states his dose of Lasix was being adjusted as an outpatient and he was taking 80 mg in the morning and 40 mg in the evening. However over the last one month he has gained about 30 pounds and complains of significant edema in his lower extremities along with dyspnea. Denies chest pain. Urinalysis is benign. He is currently maintained on Lasix drip at 10 mL an hour and is maintaining a net negative fluid balance. Edema is improving. Renal function is also improved with creatinine at 1.84 today. Denies use of NSAIDs. Oral intake is good. Patient was also drinking excessive amounts of fluid and states he was told by his physician to do so. Vital signs are stable. General: The patient appeared well nourished and normally developed. HEENT: Head exam is unremarkable. Neck is without jugular venous distension. LUNGS: Lungs are clear to auscultation and percussion. Breath sounds decreased. HEART: Rate and Rhythm are regular. First and second heart sounds normal. No murmurs, rubs or gallops. ABDOMEN: Abdominal exam reveals normal bowel sounds. Non-tender and non- distended. No evidence of peritonitis. EXTREMITITES: 2+ edema. Past Medical History Past Medical History: Atrial Fibrillation, CVA/TIA, Diabetes Mellitus, Eye Disorder, GERD/Reflux, Hyperlipidemia, Myocardial Infarction (MD), Osteoarthritis (OA), Renal Disease, Sleep Apnea/CPAP/BIPAP, Syncope Additional Past Medical History / Comment(s): Gout, upper rt dental bridge blockage left carotid artery, neuropathy, diverticulitis, insulin pump, uses a walker- wheelchair for distance. 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, hx pericardial effusion, macular degeneration left eye- gets injections"has never been told if he ever had chf in past" Last Myocardial Infarction Date:: 05/08/17 History of Any Multi-Drug Resistant Organisms: None Reported Past Surgical History: Cardiac Ablation, Joint Replacement, Orthopedic Surgery, Tonsillectomy Additional Past Surgical History / Comment(s): carpal tunnel rt wrist, rt knee replacement, shaka hip replacement, drainage for pericaridal effusion, cardioversion x 2, arthroscopy shaka knees, rt carotid endarterectomy, trigger finger shaka hands, shaka cataracts, "had a dialysis cath inserted in nov 2017 only had 2 treatments-cath since removed" Past Anesthesia/Blood Transfusion Reactions: No Reported Reaction Smoking Status: Never smoker - Past Family History Mother Family Medical History: Diabetes Mellitus, Hyperlipidemia, Hypertension, Myocardial Infarction (MD) Daughter(s) Family Medical History: Cancer Father Additional Family Medical History / Comment(s): alcoholic Medications and Allergies Home Medications Medication Instructions Recorded Confirmed Type Tamsulosin HCl [Flomax] 0.4 mg PO BID 03/04/17 02/01/18 History Aspirin [Adult Low Dose Aspirin EC] 81 mg PO DAILY 04/27/17 02/01/18 History Acetaminophen [Tylenol Arthritis] 1,300 mg PO Q12H PRN 08/06/17 02/01/18 History INSULIN LISPRO (For Pump) [humaLOG 0.01 units SQ-PUMP CONTINUOUS 08/06/17 History (For Pump)] Isosorbide Mononitrate [Isosorbide 30 mg PO DAILY 08/06/17 02/01/18 History Mononitrate ER] Nitroglycerin Sl Tabs [Nitrostat] 0.4 mg SUBLINGUAL Q5M PRN 08/06/17 02/01/18 History Zolpidem [Ambien] 5 - 10 mg PO HS PRN 08/06/17 02/01/18 History traMADol HCL [Ultram] 50 mg PO Q8HR PRN 08/06/17 02/01/18 History amLODIPine BESYLATE [Norvasc] 5 mg PO DAILY #90 tablet 08/13/17 02/01/18 Rx Albuterol Inhaler [Ventolin Hfa 2 puff INHALATION RT-Q4H 10/26/17 02/01/18 History Inhaler] Amiodarone [Cordarone] 200 mg PO DAILY 10/26/17 02/01/18 History Budesonide/Formoterol Fumarate 2 puff INHALATION RT-BID 10/26/17 02/01/18 History [Symbicort 160-4.5 Mcg Inhaler] Carvedilol [Coreg] 6.25 mg PO BID-W/MEALS #60 tab 11/16/17 02/01/18 Rx Dabigatran [Pradaxa] 75 mg PO BID #60 cap 11/16/17 02/01/18 Rx Docusate [Colace] 100 mg PO BID cap 11/16/17 02/01/18 Rx Famotidine [Pepcid] 20 mg PO DAILY #0 tab 11/16/17 02/01/18 Rx Pravastatin Sodium [Pravachol] 80 mg PO HS #30 tab 11/16/17 02/01/18 Rx Pregabalin [Lyrica] 75 mg PO BID #60 cap 11/16/17 02/01/18 Rx Furosemide [Lasix] 40 mg PO HS 02/01/18 02/01/18 History Furosemide [Lasix] 40 mg PO Q48H 02/01/18 02/01/18 History Furosemide [Lasix] 80 mg PO Q48H 02/01/18 02/01/18 History Allergies Allergy/AdvReac Type Severity Reaction Status Date / Time No Known Allergies Allergy Verified 02/01/18 13:00 Physical Exam Vitals: Vital Signs Temp Pulse Pulse Resp BP BP Pulse Ox 02/02/18 12:00 97.2 F L 54 L 20 143/60 92 L 02/02/18 11:08 56 L 02/02/18 10:56 56 L 02/02/18 09:45 96.8 F L 54 L 20 130/66 95 02/02/18 08:20 56 L 02/02/18 08:10 56 L 02/02/18 08:09 56 L 02/02/18 07:56 56 L 02/02/18 04:00 96.6 F L 54 L 16 134/68 93 L 02/02/18 00:00 96.9 F L 49 L 18 156/73 95 02/01/18 21:25 54 L 16 02/01/18 21:17 52 L 18 02/01/18 21:07 50 L 16 97 02/01/18 20:00 96.8 F L 50 L 16 147/65 96 02/01/18 16:15 96.9 F L 52 L 18 136/61 95 02/01/18 15:00 98.0 F 50 L 18 128/66 96 02/01/18 14:30 46 L 18 133/61 94 L 02/01/18 14:00 46 L 20 137/66 96 02/01/18 13:30 48 L 20 144/68 96 Intake and Output 02/01/18 02/02/18 02/02/18 22:59 06:59 14:59 Intake Total 240 240 Output Total 600 2000 1560 Balance -360 -[id number] Intake: Oral 240 240 Output: Urine 600 1999 1560 Other: # Voids 1 1 Weight 137.3 kg 134.3 kg Results - Lab Results Most recent lab results Calcium 8.8 mg/dL (8.4-10.2) 02/02/18 05:29 Magnesium 2.4 mg/dL (1.6-2.3) H 02/01/18 13:00 02/01/18 13:00 02/02/18 05:29 Assessment and Plan Plan: Assessment: 1. Nonoliguric acute kidney injury mostly prerenal secondary to cardiorenal syndrome. Creatinine 1.84 today. Urinalysis is benign. 2. Chronic kidney disease stage III. Baseline creatinine in the range of 1.3- 1.4 secondary to acidosis. 3. Volume overload. 4. Diastolic CHF. 5. Hypertension with chronic kidney disease. Controlled. Plan: Maintain Lasix drip at 10 mL an hour. Low-salt diet. 1.5 L fluid restriction. Avoid nephrotoxic agents. Patient has history of hyperkalemia and follows a strict low potassium diet. Avoid drugs that will raise potassium. Thank you for the consultation. I will continue to follow the patient with you during his hospital stay.
--- NOTE | 2018-02-02 13:45 | P.HPIM ---
History of Present Illness H&P Date: 02/02/18 Chief Complaint: increased edema, SOB, weight gain 77-year-old male with a past medical history significant for atrial fibrillation, diabetes, hyperlipidemia, and chronic kidney disease, who presented to the emergency room after he was evaluated outpatient by his human services manager. The patient reported he has gained about 15 pounds in the last 10 days or so, increased shortness of breath, and increased swelling to his bilateral extremities. His human services manager recommended he come to the ER for further evaluation. He denies chest pain or pressure. Denies nausea or vomiting. Denies fever or chills. The patient reports his PCP, Dr. Mckenzie has been managing his diuretic dose on an outpatient basis. The patient was taking 40 mg in the morning and in the afternoon. He states recently his regimen was changed to 80 mg in the morning and 40 mg in the evening alternating every other day with 40mg in the morning and 40mg in the evening. Chest x-ray completed in the emergency room reveals patchy bilateral infiltrates with tiny right effusion. Underlying venous congestion not excluded. Laboratory data upon admission reveals white count 7.9. Hemoglobin 10.1. Platelet count 177. Sodium 144. Potassium 4.8. BUN 36. Creatinine 1.92. BNP 926. Most recent echocardiogram was performed in November 2017 which revealed ejection fraction between 50 and 55%, mild mitral regurgitation and mild tricuspid regurgitation. The patient was started on a lasix drip at 10mg/hour and admitted to the hospital under the care of Dr. Corona. Consultations were placed to cardiology and nephrology. REVIEW OF SYSTEMS: Those systems with pertinent positive or pertinent negative responses have been documented in the HPI PHYSICAL EXAM: GENERAL: This is a 77-year-old male in no apparent distress at the time of examination. Pleasant and cooperative. HEENT: Head is atraumatic, normocephalic. Pupils are equal, round, and reactive to light. Sclerae anicteric. Conjunctivae are clear. Mucus membranes of the mouth are moist. Neck is supple. RESPIRATORY: Diminished with fine rales to the bases. No wheezing noted. No use of accessory muscles. Patient maintaining oxygen saturation greater than 92 %. No chest wall tenderness is noted on palpation or with deep breathing. CARDIOVASCULAR: Regular rate and rhythm. S1 and S2 noted. No JVD noted. No S3 or S4 noted. GASTROINTESTINAL: No distention noted. Abdomen soft and round. Normal active bowel sounds auscultated x 4 quadrants. No pain or tenderness noted upon palpation. INTEGUMENTARY: No cyanosis. No jaundice. No rashes noted. No cellulitis noted. EXTREMITIES: 2+ peripheral pulses. +2-3 bilateral LE edema. No calf tenderness noted. NEUROLOGIC: Cranial nerves II-XII intact. PSYCHIATRIC: Awake, alert, and oriented X 3. Appropriate affect. Intact judgement and insight. ASSESSMENT: -Acute exacerbation of diastolic congestive heart failure, echo from 11/2017 reveals EF 50-55% -Chronic kidney disease, stage III -Small right pleural effusion -Coronary artery disease with triple vessel disease, declining CABG at this time , recent cath revealed proximal RCA 70% stenosis, distal RCA 70% stenosis, circumflex 85% stenosis in proximal LAD 40-50% stenosis with a 90% lesion after the septal branch -Diabetes Mellitus, insulin dependent, utilizing insulin pump -Hyperlipidemia -Hypertension -Paroxysmal atrial fibrillation, on terminologist anticoagulation with Pradaxa -History of cardiac ablation, 2010 -History of cardioversion, 2013 -GERD -Osteoarthritis -Anemia of chronic disease -History of sleep apnea, patient utilizes CPAP machine -Carotid stenosis with history of right carotid endarterectomy with postoperative cardiac arrest and respiratory failure requiring intubation, April 2017 -History of CVA: right lacunar infarct, 05/2017 -Morbid obesity: BMI 43.7 PLAN: Nephrology and cardiology on consult. Await further recommendations Continue lasix drip at 10mg/hr Daily weights Accurate I&O Daily BMP Patient does not have all his supples with him for his insulin pump. Continue with Novolog sliding scale ACHS and accuchecks ACHS Home meds as appropriate Monitor labs GI prophylaxis: Pepcid 20mg daily DVT prophylaxis: Pradaxa 75mg BID Monitor vital signs and address as appropriate Discharge planning: Patient to return home when stable Further recommendations pending patient's course Nurse practitioner note has been reviewed by physician. Signing provider agrees with the documented findings, assessment, and plan of care. Past Medical History Past Medical History: Atrial Fibrillation, CVA/TIA, Diabetes Mellitus, Eye Disorder, GERD/Reflux, Hyperlipidemia, Myocardial Infarction ([place]), Osteoarthritis (OA), Renal Disease, Sleep Apnea/CPAP/BIPAP, Syncope Additional Past Medical History / Comment(s): Gout, upper rt dental bridge blockage left carotid artery, neuropathy, diverticulitis, insulin pump, uses a walker- wheelchair for distance. 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, hx pericardial effusion, macular degeneration left eye- gets injections"has never been told if he ever had chf in past" Last Myocardial Infarction Date:: 05/08/17 History of Any Multi-Drug Resistant Organisms: None Reported Past Surgical History: Cardiac Ablation, Joint Replacement, Orthopedic Surgery, Tonsillectomy Additional Past Surgical History / Comment(s): carpal tunnel rt wrist, rt knee replacement, shaka hip replacement, drainage for pericaridal effusion, cardioversion x 2, arthroscopy shaka knees, rt carotid endarterectomy, trigger finger shaka hands, shaka cataracts, "had a dialysis cath inserted in nov 2017 only had 2 treatments-cath since removed" Past Anesthesia/Blood Transfusion Reactions: No Reported Reaction Smoking Status: Never smoker - Past Family History Mother Family Medical History: Diabetes Mellitus, Hyperlipidemia, Hypertension, Myocardial Infarction ([place]) Daughter(s) Family Medical History: Cancer Father Additional Family Medical History / Comment(s): alcoholic Medications and Allergies Home Medications Medication Instructions Recorded Confirmed Type Tamsulosin HCl [Flomax] 0.4 mg PO BID 03/04/17 02/01/18 History Aspirin [Adult Low Dose Aspirin EC] 81 mg PO DAILY 04/27/17 02/01/18 History Acetaminophen [Tylenol Arthritis] 1,300 mg PO Q12H PRN 08/06/17 02/01/18 History INSULIN LISPRO (For Pump) [humaLOG 0.01 units SQ-PUMP CONTINUOUS 08/06/17 History (For Pump)] Isosorbide Mononitrate [Isosorbide 30 mg PO DAILY 08/06/17 02/01/18 History Mononitrate ER] Nitroglycerin Sl Tabs [Nitrostat] 0.4 mg SUBLINGUAL Q5M PRN 08/06/17 02/01/18 History Zolpidem [Ambien] 5 - 10 mg PO HS PRN 08/06/17 02/01/18 History traMADol HCL [Ultram] 50 mg PO Q8HR PRN 08/06/17 02/01/18 History amLODIPine BESYLATE [Norvasc] 5 mg PO DAILY #90 tablet 08/13/17 02/01/18 Rx Albuterol Inhaler [Ventolin Hfa 2 puff INHALATION RT-Q4H 10/26/17 02/01/18 History Inhaler] Amiodarone [Cordarone] 200 mg PO DAILY 10/26/17 02/01/18 History Budesonide/Formoterol Fumarate 2 puff INHALATION RT-BID 10/26/17 02/01/18 History [Symbicort 160-4.5 Mcg Inhaler] Carvedilol [Coreg] 6.25 mg PO BID-W/MEALS #60 tab 11/16/17 02/01/18 Rx Dabigatran [Pradaxa] 75 mg PO BID #60 cap 11/16/17 02/01/18 Rx Docusate [Colace] 100 mg PO BID cap 11/16/17 02/01/18 Rx Famotidine [Pepcid] 20 mg PO DAILY #0 tab 11/16/17 02/01/18 Rx Pravastatin Sodium [Pravachol] 80 mg PO HS #30 tab 11/16/17 02/01/18 Rx Pregabalin [Lyrica] 75 mg PO BID #60 cap 11/16/17 02/01/18 Rx Furosemide [Lasix] 40 mg PO HS 02/01/18 02/01/18 History Furosemide [Lasix] 40 mg PO Q48H 02/01/18 02/01/18 History Furosemide [Lasix] 80 mg PO Q48H 02/01/18 02/01/18 History Allergies Allergy/AdvReac Type Severity Reaction Status Date / Time No Known Allergies Allergy Verified 02/01/18 13:00 Physical Exam Vitals: Vital Signs Temp Pulse Pulse Resp BP BP Pulse Ox 02/02/18 11:08 56 L 02/02/18 10:56 56 L 02/02/18 09:45 96.8 F L 54 L 20 130/66 95 02/02/18 08:20 56 L 02/02/18 08:10 56 L 02/02/18 08:09 56 L 02/02/18 07:56 56 L 02/02/18 04:00 96.6 F L 54 L 16 134/68 93 L 02/02/18 00:00 96.9 F L 49 L 18 156/73 95 02/01/18 21:25 54 L 16 02/01/18 21:17 52 L 18 02/01/18 21:07 50 L 16 97 02/01/18 20:00 96.8 F L 50 L 16 147/65 96 02/01/18 16:15 96.9 F L 52 L 18 136/61 95 02/01/18 15:00 98.0 F 50 L 18 128/66 96 02/01/18 14:30 46 L 18 133/61 94 L 02/01/18 14:00 46 L 20 137/66 96 02/01/18 13:30 48 L 20 144/68 96 02/01/18 13:00 49 L 18 155/68 96 Intake and Output 02/01/18 02/02/18 02/02/18 22:59 06:59 14:59 Intake Total 240 240 Output Total 600 2000 1560 Balance -360 [id number] Intake: Oral 240 240 Output: Urine 600 1999 1560 Other: # Voids 1 1 Weight 137.3 kg 134.3 kg Results CBC & Chem 7: 02/01/18 13:00 02/02/18 05:29 Labs: Abnormal Lab Results - Last 24 Hours (Table) 02/01/18 02/01/18 02/01/18 Range/Units 13:00 13:00 13:00 RBC 3.55 L (4.30-5.90) m/uL Hgb 10.1 L (13.0-17.5) gm/dL Hct 32.7 L (39.0-53.0) % MCHC 30.8 L (31.0-37.0) g/dL RDW 17.5 H (11.5-15.5) % Lymphocytes # 0.9 L (1.0-4.8) k/uL PT (9.0-12.0) sec INR (<1.2) APTT (22.0-30.0) sec Chloride 108 H (98-107) mmol/L BUN 36 H (9-20) mg/dL Creatinine 1.92 H (0.66-1.25) mg/dL Glucose (74-99) mg/dL POC Glucose (mg/dL) (75-99) mg/dL Hemoglobin A1c (4.0-6.0) % Magnesium 2.4 H (1.6-2.3) mg/dL ALT 19 L (21-72) U/L Total Creatine Kinase 180 H (55-170) U/L CK-MB (CK-2) 4.1 H (0.0-2.4) ng/mL 02/01/18 02/01/18 02/01/18 Range/Units 13:00 13:00 14:54 RBC (4.30-5.90) m/uL Hgb (13.0-17.5) gm/dL Hct (39.0-53.0) % MCHC (31.0-37.0) g/dL RDW (11.5-15.5) % Lymphocytes # (1.0-4.8) k/uL PT 14.5 H (9.0-12.0) sec INR 1.6 H (<1.2) APTT 44.5 H (22.0-30.0) sec Chloride (98-107) mmol/L BUN (9-20) mg/dL Creatinine (0.66-1.25) mg/dL Glucose (74-99) mg/dL POC Glucose (mg/dL) 68 L (75-99) mg/dL Hemoglobin A1c 6.3 H (4.0-6.0) % Magnesium (1.6-2.3) mg/dL ALT (21-72) U/L Total Creatine Kinase (55-170) U/L CK-MB (CK-2) (0.0-2.4) ng/mL 02/01/18 02/01/18 02/01/18 Range/Units 15:18 15:39 16:30 RBC (4.30-5.90) m/uL Hgb (13.0-17.5) gm/dL Hct (39.0-53.0) % MCHC (31.0-37.0) g/dL RDW (11.5-15.5) % Lymphocytes # (1.0-4.8) k/uL PT (9.0-12.0) sec INR (<1.2) APTT (22.0-30.0) sec Chloride (98-107) mmol/L BUN (9-20) mg/dL Creatinine (0.66-1.25) mg/dL Glucose (74-99) mg/dL POC Glucose (mg/dL) 67 L 106 H 121 H (75-99) mg/dL Hemoglobin A1c (4.0-6.0) % Magnesium (1.6-2.3) mg/dL ALT (21-72) U/L Total Creatine Kinase (55-170) U/L CK-MB (CK-2) (0.0-2.4) ng/mL 02/01/18 02/02/18 02/02/18 Range/Units 21:11 01:58 05:29 RBC (4.30-5.90) m/uL Hgb (13.0-17.5) gm/dL Hct (39.0-53.0) % MCHC (31.0-37.0) g/dL RDW (11.5-15.5) % Lymphocytes # (1.0-4.8) k/uL PT (9.0-12.0) sec INR (<1.2) APTT (22.0-30.0) sec Chloride (98-107) mmol/L BUN 34 H (9-20) mg/dL Creatinine 1.84 H (0.66-1.25) mg/dL Glucose 157 H (74-99) mg/dL POC Glucose (mg/dL) 193 H 137 H (75-99) mg/dL Hemoglobin A1c (4.0-6.0) % Magnesium (1.6-2.3) mg/dL ALT (21-72) U/L Total Creatine Kinase (55-170) U/L CK-MB (CK-2) (0.0-2.4) ng/mL 02/02/18 02/02/18 Range/Units 06:21 11:45 RBC (4.30-5.90) m/uL Hgb (13.0-17.5) gm/dL Hct (39.0-53.0) % MCHC (31.0-37.0) g/dL RDW (11.5-15.5) % Lymphocytes # (1.0-4.8) k/uL PT (9.0-12.0) sec INR (<1.2) APTT (22.0-30.0) sec Chloride (98-107) mmol/L BUN (9-20) mg/dL Creatinine (0.66-1.25) mg/dL Glucose (74-99) mg/dL POC Glucose (mg/dL) 159 H 150 H (75-99) mg/dL Hemoglobin A1c (4.0-6.0) % Magnesium (1.6-2.3) mg/dL ALT (21-72) U/L Total Creatine Kinase (55-170) U/L CK-MB (CK-2) (0.0-2.4) ng/mL Thrombosis Risk Factor Assmnt - Choose All That Apply Any of the Below Risk Factors Present?: Yes Each Factor Represents 1 point: Heart failure (<1month), Obesity (BMI >25), Swollen legs (current) Other Risk Factors: Yes Each Risk Factor Represents 3 Points: Age 75 years or older Thrombosis Risk Factor Assessment Total Risk Factor Score: 6 Thrombosis Risk Factor Assessment Level: High Risk
[2018-02-02] MEDS: FUROSEMIDE 250 MG in SODIUM CHLORIDE 0.9% 225 ML IVP SCH (14:37)
--- NOTE | 2018-02-02 15:10 | P.CRDCN ---
History of Present Illness Consult date: 02/02/18 Requesting physician: Paddy Corona Chief complaint: Shortness of breath and weight gain History of present illness: This is a 77-year-old gentleman who follows regularly with Dr. Topete in the office. Patient has known history of coronary artery disease as as well as peripheral vascular disease and has had prior carotid endarterectomy. Patient underwent a cardiac catheterization and was found to have diffuse triple-vessel disease, he did go to see cardiothoracic surgery and was waiting for clearance from a pulmonary perspective. Patient also has history of chronic renal failure. History of CVA, diabetes, hypertension, hyperlipidemia, history of cardiac ablation and drainage for prior cardial effusion, morbid obesity. He presented to the hospital on this occasion with symptoms of progressively worsening shortness of breath and weight gain for a minimum of 2 weeks duration. He states it's been going on longer but for the past 2 weeks it's been progressively worse. Positive PND and orthopnea and significant weight gain. He does state that some adjustments have been made to his Lasix dose in his primary care doctor's office, and he also states that he' s been drinking a significant amount of fluids at home. Chest x-ray on admission here showed patchy bilateral infiltrate with tiny right sided effusion , underlying venous congestion. EKG on admission showed a sinus bradycardia with first-degree AV block, nonspecific ST-T wave changes. Echocardiogram with Doppler study was performed which revealed an ejection fraction of 55-60%. I pressure 142/60 with a heart rate in the 50s. Blood cell count 7.9, hemoglobin 10.1, platelet count 177. Sodium 144, potassium 4.8 , BUN 36, creatinine 1.9. Magnesium 2.4. Troponin 0.012. BNP level 926. was initiated on IV Lasix drip in the emergency room. Diuresed approximately 4000 out through the night last night and his weight is down significantly today. He does state that he notices a significant difference in his edema however he still has considerable edema present. Past Medical History Past Medical History: Atrial Fibrillation, CVA/TIA, Diabetes Mellitus, Eye Disorder, GERD/Reflux, Hyperlipidemia, Myocardial Infarction ([place]), Osteoarthritis ([place]), Renal Disease, Sleep Apnea/CPAP/BIPAP, Syncope Additional Past Medical History / Comment(s): Gout, upper rt dental bridge blockage left carotid artery, neuropathy, diverticulitis, insulin pump, uses a walker- wheelchair for distance. 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, hx pericardial effusion, macular degeneration left eye- gets injections"has never been told if he ever had chf in past" Last Myocardial Infarction Date:: 05/08/17 History of Any Multi-Drug Resistant Organisms: None Reported Past Surgical History: Cardiac Ablation, Joint Replacement, Orthopedic Surgery, Tonsillectomy Additional Past Surgical History / Comment(s): carpal tunnel rt wrist, rt knee replacement, shaka hip replacement, drainage for pericaridal effusion, cardioversion x 2, arthroscopy shaka knees, rt carotid endarterectomy, trigger finger shaka hands, shaka cataracts, "had a dialysis cath inserted in nov 2017 only had 2 treatments-cath since removed" Past Anesthesia/Blood Transfusion Reactions: No Reported Reaction Smoking Status: Never smoker - Past Family History Mother Family Medical History: Diabetes Mellitus, Hyperlipidemia, Hypertension, Myocardial Infarction ([place]) Daughter(s) Family Medical History: Cancer Father Additional Family Medical History / Comment(s): alcoholic Medications and Allergies Home Medications Medication Instructions Recorded Confirmed Type Tamsulosin HCl [Flomax] 0.4 mg PO BID 03/04/17 02/01/18 History Aspirin [Adult Low Dose Aspirin EC] 81 mg PO DAILY 04/27/17 02/01/18 History Acetaminophen [Tylenol Arthritis] 1,300 mg PO Q12H PRN 08/06/17 02/01/18 History INSULIN LISPRO (For Pump) [humaLOG 0.01 units SQ-PUMP CONTINUOUS 08/06/17 History (For Pump)] Isosorbide Mononitrate [Isosorbide 30 mg PO DAILY 08/06/17 02/01/18 History Mononitrate ER] Nitroglycerin Sl Tabs [Nitrostat] 0.4 mg SUBLINGUAL Q5M PRN 08/06/17 02/01/18 History Zolpidem [Ambien] 5 - 10 mg PO HS PRN 08/06/17 02/01/18 History traMADol HCL [Ultram] 50 mg PO Q8HR PRN 08/06/17 02/01/18 History amLODIPine BESYLATE [Norvasc] 5 mg PO DAILY #90 tablet 08/13/17 02/01/18 Rx Albuterol Inhaler [Ventolin Hfa 2 puff INHALATION RT-Q4H 10/26/17 02/01/18 History Inhaler] Amiodarone [Cordarone] 200 mg PO DAILY 10/26/17 02/01/18 History Budesonide/Formoterol Fumarate 2 puff INHALATION RT-BID 10/26/17 02/01/18 History [Symbicort 160-4.5 Mcg Inhaler] Carvedilol [Coreg] 6.25 mg PO BID-W/MEALS #60 tab 11/16/17 02/01/18 Rx Dabigatran [Pradaxa] 75 mg PO BID #60 cap 11/16/17 02/01/18 Rx Docusate [Colace] 100 mg PO BID cap 11/16/17 02/01/18 Rx Famotidine [Pepcid] 20 mg PO DAILY #0 tab 11/16/17 02/01/18 Rx Pravastatin Sodium [Pravachol] 80 mg PO HS #30 tab 11/16/17 02/01/18 Rx Pregabalin [Lyrica] 75 mg PO BID #60 cap 11/16/17 02/01/18 Rx Furosemide [Lasix] 40 mg PO HS 02/01/18 02/01/18 History Furosemide [Lasix] 40 mg PO Q48H 02/01/18 02/01/18 History Furosemide [Lasix] 80 mg PO Q48H 02/01/18 02/01/18 History Allergies Allergy/AdvReac Type Severity Reaction Status Date / Time No Known Allergies Allergy Verified 02/01/18 13:00 Physical Exam Vitals: Vital Signs Temp Pulse Pulse Resp BP BP Pulse Ox 02/02/18 12:00 97.2 F L 54 L 20 143/60 92 L 02/02/18 11:08 56 L 02/02/18 10:56 56 L 02/02/18 09:45 96.8 F L 54 L 20 130/66 95 02/02/18 08:20 56 L 02/02/18 08:10 56 L 02/02/18 08:09 56 L 02/02/18 07:56 56 L 02/02/18 04:00 96.6 F L 54 L 16 134/68 93 L 02/02/18 00:00 96.9 F L 49 L 18 156/73 95 02/01/18 21:25 54 L 16 02/01/18 21:17 52 L 18 02/01/18 21:07 50 L 16 97 02/01/18 20:00 96.8 F L 50 L 16 147/65 96 02/01/18 16:15 96.9 F L 52 L 18 136/61 95 02/01/18 15:00 98.0 F 50 L 18 128/66 96 Intake and Output 02/01/18 02/02/18 02/02/18 22:59 06:59 14:59 Intake Total 240 240 Output Total 600 1999 1560 Balance -360 1999 1320 Intake: Oral 240 240 Output: Urine 600 1999 1559 Other: # Voids 1 1 Weight 137.3 kg 134.3 kg PHYSICAL EXAMINATION: GENERAL: 77-year-old gentleman in no acute distress at the time of my examination HEENT: Head is atraumatic, normocephalic. Pupils equal, round. Sclera anicteric. Conjunctiva are clear. Mucous membranes of the mouth are moist. Neck is supple. There is elevated jugular venous pressure. No carotid bruit is heard. HEART EXAMINATION: S1 and S2 systolic murmur is heard. CHEST EXAMINATION: Lungs reveal diminished air entry to bilateral bases. ABDOMEN: Firm, obese, nontender. Bowel sounds are heard. No organomegaly noted. EXTREMITIES:[ 2+ peripheral pulses with 3+ evidence of peripheral edema NEUROLOGIC patient is awake, alert and oriented 3. . Results 02/01/18 13:00 02/02/18 05:29 Comprehensive Metabolic Panel 02/02/18 Range/Units 05:29 Sodium 144 (137-145) mmol/L Potassium 4.2 (3.5-5.1) mmol/L Chloride 106 (98-107) mmol/L Carbon Dioxide 30 (22-30) mmol/L BUN 34 H (9-20) mg/dL Creatinine 1.84 H (0.66-1.25) mg/dL Glucose 157 H (74-99) mg/dL Calcium 8.8 (8.4-10.2) mg/dL Current Medications Generic Name Dose Route Start Last Admin Trade Name Freq PRN Reason Stop Dose Admin Acetaminophen 1,000 mg 02/01/18 17:56 02/02/18 13:32 Tylenol Tab PO 1,000 mg Q6HR PRN Administration Fever and/ or Pain Albuterol Sulfate 2.5 mg 02/01/18 14:56 02/02/18 10:56 Ventolin Nebulized INHALATION 2.5 mg RT-Q1H PRN Administration Shortness Of Breath Or Wheezing Amiodarone HCl 200 mg 02/02/18 09:00 02/02/18 10:12 Cordarone PO 200 mg DAILY JOSÉ MIGUEL Administration Amlodipine Besylate 5 mg 02/02/18 09:00 02/02/18 10:13 Norvasc PO 5 mg DAILY JOSÉ MIGUEL Administration Aspirin 81 mg 02/02/18 09:00 02/02/18 10:12 Aspirin PO 81 mg DAILY JOSÉ MIGUEL Administration Budesonide 1 mg 02/01/18 20:00 02/02/18 07:55 Pulmicort INHALATION 1 mg RT-BID JOSÉ MIGUEL Administration Carvedilol 6.25 mg 02/01/18 17:30 02/02/18 06:43 Coreg PO 6.25 mg BID-W/MEALS JOSÉ MIGUEL Administration Dabigatran 75 mg 02/01/18 21:00 02/02/18 12:41 Pradaxa PO 75 mg BID JOSÉ MIGUEL Administration Docusate Sodium 100 mg 02/01/18 21:00 02/02/18 10:12 Colace PO 100 mg BID JOSÉ MIGUEL Administration Famotidine 20 mg 02/02/18 09:00 02/02/18 10:12 Pepcid PO 20 mg DAILY JOSÉ MIGUEL Administration Formoterol Fumarate 20 mcg 02/01/18 20:00 02/02/18 07:55 Perforomist INHALATION 20 mcg RT-BID JOSÉ MIGUEL Administration Furosemide 250 mg/ Sodium 250 mls @ 10 mls/hr 02/02/18 13:45 02/02/18 14:37 Chloride IVP 10 mg/hr .Q24H JOSÉ MIGUEL 10 mls/hr Administration 10 MG/HR Insulin Aspart 0 unit 02/01/18 15:31 Novolog SQ DAILY PRN Insulin Pump Replacement Insulin Aspart 0 unit 02/01/18 21:00 02/02/18 12:41 Novolog SQ 1 unit ACHS JOSÉ MIGUEL Administration Protocol Isosorbide Mononitrate 30 mg 02/02/18 09:00 02/02/18 10:12 Imdur PO 30 mg DAILY JOSÉ MIGUEL Administration Naloxone HCl 0.2 mg 02/01/18 14:20 Narcan IV Q2M PRN Opioid Reversal Nitroglycerin 0.4 mg 02/01/18 14:42 Nitrostat SUBLINGUAL Q5M PRN Chest Pain Pravastatin Sodium 80 mg 02/01/18 21:00 02/01/18 21:39 Pravachol PO 80 mg HS JOSÉ MIGUEL Administration Pregabalin 75 mg 02/01/18 21:00 02/02/18 10:12 Lyrica PO 75 mg BID JOSÉ MIGUEL Administration Tamsulosin HCl 0.4 mg 02/01/18 21:00 02/02/18 10:12 Flomax PO 0.4 mg BID JOSÉ MIGUEL Administration Tramadol HCl 50 mg 02/01/18 14:42 Ultram PO Q8HR PRN Pain Zolpidem Tartrate 5 mg 02/01/18 14:42 Ambien PO HS PRN Insomnia Intake and Output 02/01/18 02/02/18 02/02/18 22:59 06:59 14:59 Intake Total 240 240 Output Total 600 2000 1560 Balance -360 -2000 -1320 Intake: Oral 240 240 Output: Urine 600 1999 1560 Other: # Voids 1 1 Weight 137.3 kg 134.3 kg 02/01/18 13:00 02/02/18 05:29 EKG Interpretations (text) EKG shows a sinus bradycardia with first-degree AV block and nonspecific ST-T wave changes Assessment and Plan Plan: Assessment and plan #1 symptoms of shortness of breath with associated weight gain, likely secondary to acute exacerbation of diastolic congestive heart failure, acute on chronic, as well as cor pulmonale. We will continue current Lasix drip. #2 known history of coronary artery disease, patient had cardiac catheterization performed which revealed multivessel coronary artery disease, at this time patient has not yet undergone coronary bypass grafting surgery, awaiting clearance from pulmonary. #3 diabetes #4 hypertension #5 hyperlipidemia #6. Proximal atrial fibrillation, on Pradaxa for anticoagulation #7 history of cardiac ablation #8 GERD #9 acute on chronic renal failure #10 history of CVA #11 morbid obesity #12 PAD, status post carotid endarterectomy #13 sleep apnea Plan From cardiology's perspective, we'll continue current dose of IV Lasix drip for 24 hours. Check lytes BUN and creatinine intake and output and daily weights in the morning. DNP note has been reviewed, I agree with a documented findings and plan of care. Patient was seen and examined.
[2018-02-02 16:32] LABS: Glucose,Whole Blood 174 mg/dL (75-99)
[2018-02-02 20:33] LABS: Glucose,Whole Blood 215 mg/dL (75-99)
[2018-02-02] MEDS: PRAVASTATIN SODIUM 80 MG TAB PO SCH (20:42)
[2018-02-02 21:33] LABS: Glucose,Whole Blood 199 mg/dL (75-99)
[2018-02-03] MEDS: traMADol 50 MG TAB PO PRN (00:25)
[2018-02-03 02:15] LABS: Glucose,Whole Blood 156 mg/dL (75-99)
[2018-02-03 06:25] LABS: Glucose,Whole Blood 183 mg/dL (75-99)
[2018-02-03] MEDS: INSULIN ASPART 100 UNIT/ML 1 ML 10 ML VIAL SQ SCH ×4 (06:42→21:19)
[2018-02-03] MEDS: CARVEDILOL 6.25 MG TAB PO SCH ×2 (06:42→17:42)
[2018-02-03 07:07] LABS: Calcium 8.9 mg/dL (8.4-10.2); Magnesium 2.3 mg/dL (1.6-2.3)
[2018-02-03 07:09] LABS: Potassium 5.5 mmol/L (3.5-5.1)
[2018-02-03] MEDS: ALBUTEROL NEBULIZED 2.5 MG/3 ML INHALATION PRN ×4 (07:55→20:49)
[2018-02-03] MEDS: BUDESONIDE 1 MG/2 ML NEBU INHALATION SCH ×2 (07:56→20:49)
[2018-02-03] MEDS: FORMOTEROL FUMARATE 20 MCG/2 ML NEBU INHALATION SCH ×2 (07:56→20:49)
[2018-02-03] MEDS: FAMOTIDINE 20 MG TAB PO SCH (11:02)
[2018-02-03] MEDS: ASPIRIN 81 MG PO SCH (11:03)
[2018-02-03] MEDS: TAMSULOSIN 0.4 MG CAP.ER.24H PO SCH ×2 (11:03→21:15)
[2018-02-03] MEDS: amLODIPine 5 MG TAB PO SCH (11:03)
[2018-02-03] MEDS: AMIODARONE 200 MG TAB PO SCH (11:03)
[2018-02-03] MEDS: DOCUSATE 100 MG CAP PO SCH ×2 (11:03→21:15)
[2018-02-03] MEDS: PREGABALIN 75 MG CAP PO SCH (11:03)
[2018-02-03] MEDS: DABIGATRAN 75 MG CAP PO SCH ×2 (11:03→21:15)
[2018-02-03] MEDS: ACETAMINOPHEN TAB 500 MG TAB PO PRN ×2 (11:04→17:01)
[2018-02-03] MEDS: ISOSORBIDE MONONITRATE ER 30 MG TAB.ER.24H PO SCH (11:04)
[2018-02-03 11:47] LABS: Glucose,Whole Blood 191 mg/dL (75-99)
--- NOTE | 2018-02-03 12:47 | P.PN ---
Subjective Progress Note Date: 02/03/18 77-year-old male with a past medical history significant for atrial fibrillation, diabetes, hyperlipidemia, and chronic kidney disease, who presented to the emergency room after he was evaluated outpatient by his car escort. The patient reported he has gained about 15 pounds in the last 10 days or so, increased shortness of breath, and increased swelling to his bilateral extremities. His car escort recommended he come to the ER for further evaluation. He denies chest pain or pressure. Denies nausea or vomiting. Denies fever or chills. The patient reports his PCP, Dr. Mckenzie has been managing his diuretic dose on an outpatient basis. The patient was taking 40 mg in the morning and in the afternoon. He states recently his regimen was changed to 80 mg in the morning and 40 mg in the evening alternating every other day with 40mg in the morning and 40mg in the evening. Chest x-ray completed in the emergency room reveals patchy bilateral infiltrates with tiny right effusion. Underlying venous congestion not excluded. Laboratory data upon admission reveals white count 7.9. Hemoglobin 10.1. Platelet count 177. Sodium 144. Potassium 4.8. BUN 36. Creatinine 1.92. BNP 926. Most recent echocardiogram was performed in November 2017 which revealed ejection fraction between 50 and 55%, mild mitral regurgitation and mild tricuspid regurgitation. The patient was started on a lasix drip at 10mg/hour and admitted to the hospital under the care of Dr. Corona. Consultations were placed to cardiology and nephrology. 02/03/2018 Patient examined at the bedside with Dr. Corona. Patient states his breathing has improved. He remains on lasix drip at 10mg/hr. Patient reports he is urinating frequently. Weight is down to 131.5 from 134.3. Repeat echo reveals EF 55-60%. Denies chest pain or pressure. Denies nausea or vomiting. Patient reports he ambulated about 40 feet in the hallway today. PHYSICAL EXAM: GENERAL: This is a 77-year-old male in no apparent distress at the time of examination. Pleasant and cooperative. HEENT: Head is atraumatic, normocephalic. Pupils are equal, round, and reactive to light. Sclerae anicteric. Conjunctivae are clear. Mucus membranes of the mouth are moist. Neck is supple. RESPIRATORY: Diminished. No wheezing noted. No use of accessory muscles. Patient maintaining oxygen saturation greater than 92%. No chest wall tenderness is noted on palpation or with deep breathing. CARDIOVASCULAR: Regular rate and rhythm. S1 and S2 noted. No JVD noted. No S3 or S4 noted. GASTROINTESTINAL: No distention noted. Abdomen soft and round. Normal active bowel sounds auscultated x 4 quadrants. No pain or tenderness noted upon palpation. INTEGUMENTARY: No cyanosis. No jaundice. No rashes noted. No cellulitis noted. EXTREMITIES: 2+ peripheral pulses. +2 bilateral LE edema, improved from yesterday. Scrotal edema noted. No calf tenderness noted. NEUROLOGIC: Cranial nerves II-XII intact. PSYCHIATRIC: Awake, alert, and oriented X 3. Appropriate affect. Intact judgement and insight. ASSESSMENT: -Acute exacerbation of diastolic congestive heart failure, echo from 11/2017 reveals EF 50-55% -Chronic kidney disease, stage III -Small right pleural effusion -Coronary artery disease with triple vessel disease, declining CABG at this time , recent cath revealed proximal RCA 70% stenosis, distal RCA 70% stenosis, circumflex 85% stenosis in proximal LAD 40-50% stenosis with a 90% lesion after the septal branch -Diabetes Mellitus, insulin dependent, utilizing insulin pump at home -Hyperlipidemia -Hypertension -Paroxysmal atrial fibrillation, on rodent exterminator anticoagulation with Pradaxa -History of cardiac ablation, 2010 -History of cardioversion, 2013 -GERD -Osteoarthritis -Anemia of chronic disease -History of sleep apnea, patient utilizes CPAP machine -Carotid stenosis with history of right carotid endarterectomy with postoperative cardiac arrest and respiratory failure requiring intubation, April 2017 -History of CVA: right lacunar infarct, 05/2017 -Morbid obesity: BMI 43.7 -Hyperkalemia PLAN: Nephrology and cardiology on consult. Appreciate recommendations and input Ap vaughan per cardiology and nephrology Daily weights Accurate I&O Lab reported BMP was hemolyzed this morning, likely accounting for the increase in potassium this morning. We will continue to monitor potassium and repeat in the morning. Encourage ambulation Patient does not have all his supples with him for his insulin pump. Continue with Novolog sliding scale ACHS and accuchecks ACHS Home meds as appropriate Monitor labs GI prophylaxis: Pepcid 20mg daily DVT prophylaxis: Pradaxa 75mg BID Monitor vital signs and address as appropriate Discharge planning: Patient to return home when stable Further recommendations pending patient's course Nurse practitioner note has been reviewed by physician. Signing provider agrees with the documented findings, assessment, and plan of care. Objective - Vital Signs Vital signs: Vital Signs Temp 97.1 F L 02/03/18 11:00 Pulse 54 L 02/03/18 12:08 Resp 20 02/03/18 11:00 BP 120/58 02/03/18 11:00 Pulse Ox 91 L 02/03/18 11:00 Intake & Output 02/02/18 02/03/18 02/03/18 18:59 06:59 18:59 Intake Total 240 240 Output Total 3060 1225 425 Balance -2820 -1225 -185 Weight 131.5 kg Intake: Oral 240 240 Output: Urine 3060 1225 425 Other: Voiding Method Urinal Urinal # Voids 1 1 1 - Labs CBC & Chem 7: 02/01/18 13:00 02/03/18 06:05 Labs: Abnormal Lab Results - Last 24 Hours (Table) 02/02/18 02/02/18 02/02/18 Range/Units 16:20 20:31 21:31 Potassium (3.5-5.1) mmol/L Chloride (98-107) mmol/L Carbon Dioxide (22-30) mmol/L BUN (9-20) mg/dL Creatinine (0.66-1.25) mg/dL Glucose (74-99) mg/dL POC Glucose (mg/dL) 174 H 215 H 199 H (75-99) mg/dL 02/03/18 02/03/18 02/03/18 Range/Units 02:12 06:05 06:23 Potassium 5.5 H (3.5-5.1) mmol/L Chloride 110 H (98-107) mmol/L Carbon Dioxide 20 L (22-30) mmol/L BUN 34 H (9-20) mg/dL Creatinine 1.95 H (0.66-1.25) mg/dL Glucose 172 H (74-99) mg/dL POC Glucose (mg/dL) 156 H 183 H (75-99) mg/dL 02/03/18 Range/Units 11:44 Potassium (3.5-5.1) mmol/L Chloride (98-107) mmol/L Carbon Dioxide (22-30) mmol/L BUN (9-20) mg/dL Creatinine (0.66-1.25) mg/dL Glucose (74-99) mg/dL POC Glucose (mg/dL) 191 H (75-99) mg/dL
--- NOTE | 2018-02-03 13:07 | P.PN ---
Subjective Patient is seen in follow-up for acute kidney injury on chronic kidney disease. Patient has chronic kidney disease stage III with baseline creatinine in the range of 1.3-1.4. Patient has diastolic CHF. Currently maintained on Lasix drip at 10 mL an hour. Renal function is slightly worse with creatinine at 1.95. Edema is improving. Admits to good urine output. Vital signs are stable. General: The patient appeared well nourished and normally developed. HEENT: Head exam is unremarkable. Neck is without jugular venous distension. LUNGS: Lungs are clear to auscultation and percussion. Breath sounds decreased. HEART: Rate and Rhythm are regular. First and second heart sounds normal. No murmurs, rubs or gallops. ABDOMEN: Abdominal exam reveals normal bowel sounds. Non-tender and non- distended. No evidence of peritonitis. EXTREMITITES: 2+ edema. Objective - Vital Signs Vital signs: Vital Signs Temp 97.1 F L 02/03/18 11:00 Pulse 54 L 02/03/18 12:08 Resp 20 02/03/18 11:00 BP 120/58 02/03/18 11:00 Pulse Ox 91 L 02/03/18 11:00 Intake & Output 02/02/18 02/03/18 02/03/18 18:59 06:59 18:59 Intake Total 240 240 Output Total 3060 1225 425 Balance -2820 -1225 -185 Weight 131.5 kg Intake: Oral 240 240 Output: Urine 3060 1225 425 Other: Voiding Method Urinal Urinal # Voids 1 1 1 - Labs CBC & Chem 7: 02/01/18 13:00 02/03/18 06:05 Labs: Abnormal Lab Results - Last 24 Hours (Table) 02/02/18 02/02/18 02/02/18 Range/Units 16:20 20:31 21:31 Potassium (3.5-5.1) mmol/L Chloride (98-107) mmol/L Carbon Dioxide (22-30) mmol/L BUN (9-20) mg/dL Creatinine (0.66-1.25) mg/dL Glucose (74-99) mg/dL POC Glucose (mg/dL) 174 H 215 H 199 H (75-99) mg/dL 02/03/18 02/03/18 02/03/18 Range/Units 02:12 06:05 06:23 Potassium 5.5 H (3.5-5.1) mmol/L Chloride 110 H (98-107) mmol/L Carbon Dioxide 20 L (22-30) mmol/L BUN 34 H (9-20) mg/dL Creatinine 1.95 H (0.66-1.25) mg/dL Glucose 172 H (74-99) mg/dL POC Glucose (mg/dL) 156 H 183 H (75-99) mg/dL 02/03/18 Range/Units 11:44 Potassium (3.5-5.1) mmol/L Chloride (98-107) mmol/L Carbon Dioxide (22-30) mmol/L BUN (9-20) mg/dL Creatinine (0.66-1.25) mg/dL Glucose (74-99) mg/dL POC Glucose (mg/dL) 191 H (75-99) mg/dL Assessment and Plan Plan: Assessment: 1. Nonoliguric acute kidney injury mostly prerenal secondary to cardiorenal syndrome. Creatinine 1.95 today. Urinalysis is benign. 2. Chronic kidney disease stage III. Baseline creatinine in the range of 1.3- 1.4 secondary to acidosis. 3. Volume overload. Improving. 4. Diastolic CHF. 5. Hypertension with chronic kidney disease. Controlled. Plan: Maintain Lasix drip at 10 mL an hour. Add metolazone 2.5 mg once daily. Low-salt diet. 1.5 L fluid restriction. Avoid nephrotoxic agents. Patient has history of hyperkalemia and follows a strict low potassium diet. Avoid drugs that will raise potassium. Potassium level from this morning was hemolyzed. I will recheck it.
[2018-02-03] MEDS: METOLAZONE 2.5 MG TAB PO SCH (15:47)
--- NOTE | 2018-02-03 16:08 | P.PN ---
Subjective Progress Note Date: 02/03/18 This is a 77-year-old gentleman who follows regularly with Dr. Topete in the office. Patient has known history of coronary artery disease as as well as peripheral vascular disease and has had prior carotid endarterectomy. Patient underwent a cardiac catheterization and was found to have diffuse triple-vessel disease, he did go to see cardiothoracic surgery and was waiting for clearance from a pulmonary perspective. Patient also has history of chronic renal failure. History of CVA, diabetes, hypertension, hyperlipidemia, history of cardiac ablation and drainage for prior cardial effusion, morbid obesity. He presented to the hospital on this occasion with symptoms of progressively worsening shortness of breath and weight gain for a minimum of 2 weeks duration. He states it's been going on longer but for the past 2 weeks it's been progressively worse. Positive PND and orthopnea and significant weight gain. He does state that some adjustments have been made to his Lasix dose in his primary care doctor's office, and he also states that he' s been drinking a significant amount of fluids at home. Chest x-ray on admission here showed patchy bilateral infiltrate with tiny right sided effusion , underlying venous congestion. EKG on admission showed a sinus bradycardia with first-degree AV block, nonspecific ST-T wave changes. Echocardiogram with Doppler study was performed which revealed an ejection fraction of 55-60%. I pressure 142/60 with a heart rate in the 50s. Blood cell count 7.9, hemoglobin 10.1, platelet count 177. Sodium 144, potassium 4.8 , BUN 36, creatinine 1.9. Magnesium 2.4. Troponin 0.012. BNP level 926. Patient was initiated on IV Lasix drip in the emergency room. Diuresed approximately 4000 out through the night last night and his weight is down significantly today. He does state that he notices a significant difference in his edema however he still has considerable edema present. 02/03/2018 A shunt was seen and examined this morning, weight is down another 3 kg, edema is significantly improved as well. Sodium 143, potassium 5.5, BUN 34, creatinine 1.9, magnesium 2.3. We will continue current dose of IV Lasix drip for another 24 hours, check lytes BUN and creatinine in the morning, continue to monitor daily weights. Objective - Vital Signs Vital signs: Vital Signs Temp 98.4 F 02/03/18 12:00 Pulse 56 L 02/03/18 15:59 Resp 22 02/03/18 12:00 BP 106/44 02/03/18 12:00 Pulse Ox 89 L 02/03/18 12:00 Intake & Output 02/02/18 02/03/18 02/03/18 18:59 06:59 18:59 Intake Total 240 480 Output Total 3060 1225 425 Balance -2820 -1225 55 Weight 131.5 kg Intake: Oral 240 480 Output: Urine 3060 1225 425 Other: Voiding Method Urinal Urinal # Voids 1 1 1 - Exam PHYSICAL EXAMINATION: GENERAL: 77-year-old gentleman in no acute distress at the time of my examination HEENT: Head is atraumatic, normocephalic. Pupils equal, round. Sclera anicteric. Conjunctiva are clear. Mucous membranes of the mouth are moist. Neck is supple. There is elevated jugular venous pressure. No carotid bruit is heard. HEART EXAMINATION: S1 and S2 systolic murmur is heard. CHEST EXAMINATION: Lungs reveal improvement in air entry to bilateral bases. ABDOMEN: Firm, obese, nontender. Bowel sounds are heard. No organomegaly noted. EXTREMITIES: 2+ peripheral pulses with 1-2+ evidence of peripheral edema NEUROLOGIC patient is awake, alert and oriented 3. - Labs CBC & Chem 7: 02/01/18 13:00 02/03/18 13:45 Labs: Abnormal Lab Results - Last 24 Hours (Table) 02/02/18 02/02/18 02/02/18 Range/Units 16:20 20:31 21:31 Potassium (3.5-5.1) mmol/L Chloride (98-107) mmol/L Carbon Dioxide (22-30) mmol/L BUN (9-20) mg/dL Creatinine (0.66-1.25) mg/dL Glucose (74-99) mg/dL POC Glucose (mg/dL) 174 H 215 H 199 H (75-99) mg/dL 02/03/18 02/03/18 02/03/18 Range/Units 02:12 06:05 06:23 Potassium 5.5 H (3.5-5.1) mmol/L Chloride 110 H (98-107) mmol/L Carbon Dioxide 20 L (22-30) mmol/L BUN 34 H (9-20) mg/dL Creatinine 1.95 H (0.66-1.25) mg/dL Glucose 172 H (74-99) mg/dL POC Glucose (mg/dL) 156 H 183 H (75-99) mg/dL 02/03/18 Range/Units 11:44 Potassium (3.5-5.1) mmol/L Chloride (98-107) mmol/L Carbon Dioxide (22-30) mmol/L BUN (9-20) mg/dL Creatinine (0.66-1.25) mg/dL Glucose (74-99) mg/dL POC Glucose (mg/dL) 191 H (75-99) mg/dL Assessment and Plan Plan: Assessment and plan #1 symptoms of shortness of breath with associated weight gain, likely secondary to acute exacerbation of diastolic congestive heart failure, right- sided ,acute on chronic, as well as cor pulmonale. We will continue current Lasix drip. #2 known history of coronary artery disease, patient had cardiac catheterization performed which revealed multivessel coronary artery disease, at this time patient has not yet undergone coronary bypass grafting surgery, awaiting clearance from pulmonary. #3 diabetes #4 hypertension #5 hyperlipidemia #6. Proximal atrial fibrillation, on Pradaxa for anticoagulation #7 history of cardiac ablation #8 GERD #9 acute on chronic renal failure #10 history of CVA #11 morbid obesity #12 PAD, status post carotid endarterectomy #13 sleep apnea Plan From cardiology's perspective, we'll continue current dose of IV Lasix drip for 24 hours. Check lytes BUN and creatinine intake and output and daily weights in the morning. DNP note has been reviewed, I agree with a documented findings and plan of care. Patient was seen and examined.
[2018-02-03 16:24] LABS: Glucose,Whole Blood 210 mg/dL (75-99)
[2018-02-03] MEDS: FUROSEMIDE 250 MG in SODIUM CHLORIDE 0.9% 225 ML IVP SCH (16:44)
[2018-02-03] MEDS: PREGABALIN 100 MG CAP PO SCH (21:15)
[2018-02-03] MEDS: PRAVASTATIN SODIUM 80 MG TAB PO SCH (21:15)
[2018-02-03 21:20] LABS: Glucose,Whole Blood 178 mg/dL (75-99)
[2018-02-04 06:13] LABS: Glucose,Whole Blood 156 mg/dL (75-99)
[2018-02-04] MEDS: INSULIN ASPART 100 UNIT/ML 1 ML 10 ML VIAL SQ SCH ×4 (06:47→22:01)
[2018-02-04] MEDS: CARVEDILOL 6.25 MG TAB PO SCH ×2 (06:49→16:23)
[2018-02-04 07:16] LABS: Calcium 9.4 mg/dL (8.4-10.2); Magnesium 2.4 mg/dL (1.6-2.3); Potassium 3.8 mmol/L (3.5-5.1)
[2018-02-04] MEDS: BUDESONIDE 1 MG/2 ML NEBU INHALATION SCH ×2 (08:26→19:54)
[2018-02-04] MEDS: FORMOTEROL FUMARATE 20 MCG/2 ML NEBU INHALATION SCH ×2 (08:26→19:54)
[2018-02-04] MEDS: amLODIPine 5 MG TAB PO SCH (09:00)
[2018-02-04] MEDS: PREGABALIN 100 MG CAP PO SCH ×2 (09:00→21:59)
[2018-02-04] MEDS: DABIGATRAN 75 MG CAP PO SCH ×2 (09:00→23:09)
[2018-02-04] MEDS: ISOSORBIDE MONONITRATE ER 30 MG TAB.ER.24H PO SCH (09:00)
[2018-02-04] MEDS: ASPIRIN 81 MG PO SCH (09:00)
[2018-02-04] MEDS: METOLAZONE 2.5 MG TAB PO SCH (09:00)
[2018-02-04] MEDS: AMIODARONE 200 MG TAB PO SCH (09:00)
[2018-02-04] MEDS: DOCUSATE 100 MG CAP PO SCH ×2 (09:00→21:56)
[2018-02-04] MEDS: FAMOTIDINE 20 MG TAB PO SCH (09:00)
[2018-02-04] MEDS: TAMSULOSIN 0.4 MG CAP.ER.24H PO SCH ×2 (09:00→21:59)
--- NOTE | 2018-02-04 10:25 | P.PN ---
Subjective Patient is seen in follow-up for acute kidney injury on chronic kidney disease. Patient has chronic kidney disease stage III with baseline creatinine in the range of 1.3-1.4. Patient has diastolic CHF. Currently maintained on Lasix drip at 10 mL an hour. Renal function is a little worse with creatinine at 2.07 which is due to diuresis. Edema is improving. Weight is trending down. Vital signs are stable. General: The patient appeared well nourished and normally developed. HEENT: Head exam is unremarkable. Neck is without jugular venous distension. LUNGS: Lungs are clear to auscultation and percussion. Breath sounds decreased. HEART: Rate and Rhythm are regular. First and second heart sounds normal. No murmurs, rubs or gallops. ABDOMEN: Abdominal exam reveals normal bowel sounds. Non-tender and non- distended. No evidence of peritonitis. EXTREMITITES: 2+ edema. Objective - Vital Signs Vital signs: Vital Signs Temp 97 F L 02/03/18 20:00 Pulse 56 L 02/04/18 03:23 Resp 18 02/04/18 03:23 BP 121/66 02/04/18 03:23 Pulse Ox 94 L 02/04/18 03:23 Intake & Output 02/03/18 02/04/18 02/04/18 18:59 06:59 18:59 Intake Total 970 Output Total 800 2725 Balance 170 -2725 Weight 128.6 kg Intake: Intake, IV Titration 250 Amount Furosemide 250 mg In 250 Sodium Chloride 0.9% 225 ml @ 10 MG/HR 10 mls/hr IVP .Q24H [facility] Rx#: [id number] Oral 720 Output: Urine 800 2725 Other: Voiding Method Urinal # Voids 1 1 # Bowel Movements 1 - Labs CBC & Chem 7: 02/01/18 13:00 02/04/18 06:25 Labs: Abnormal Lab Results - Last 24 Hours (Table) 02/03/18 02/03/18 02/03/18 Range/Units 11:44 16:18 21:18 Carbon Dioxide (22-30) mmol/L BUN (9-20) mg/dL Creatinine (0.66-1.25) mg/dL Glucose (74-99) mg/dL POC Glucose (mg/dL) 191 H 210 H 178 H (75-99) mg/dL Magnesium (1.6-2.3) mg/dL 02/04/18 02/04/18 Range/Units 05:48 06:25 Carbon Dioxide 32 H (22-30) mmol/L BUN 38 H (9-20) mg/dL Creatinine 2.07 H (0.66-1.25) mg/dL Glucose 155 H (74-99) mg/dL POC Glucose (mg/dL) 156 H (75-99) mg/dL Magnesium 2.4 H (1.6-2.3) mg/dL Assessment and Plan Plan: Assessment: 1. Nonoliguric acute kidney injury mostly prerenal secondary to cardiorenal syndrome. Creatinine worse at 2.07 today which is due to diuresis. Urinalysis is benign. 2. Chronic kidney disease stage III. Baseline creatinine in the range of 1.3- 1.4 secondary to acidosis. 3. Volume overload. Improving. 4. Diastolic CHF. 5. Hypertension with chronic kidney disease. Controlled. Plan: Maintain Lasix drip at 10 mL an hour - can likely change to IV push Lasix tomorrow. Maintain metolazone 2.5 mg once daily. Low-salt diet. 1.5 L fluid restriction. Avoid nephrotoxic agents. Patient has history of hyperkalemia and follows a strict low potassium diet. Avoid drugs that will raise potassium.
[2018-02-04 11:13] LABS: Glucose,Whole Blood 260 mg/dL (75-99)
--- NOTE | 2018-02-04 11:43 | P.PN ---
Subjective Progress Note Date: 02/04/18 77-year-old male with a past medical history significant for atrial fibrillation, diabetes, hyperlipidemia, and chronic kidney disease, who presented to the emergency room after he was evaluated outpatient by his hand flatwork finisher. The patient reported he has gained about 15 pounds in the last 10 days or so, increased shortness of breath, and increased swelling to his bilateral extremities. His hand flatwork finisher recommended he come to the ER for further evaluation. He denies chest pain or pressure. Denies nausea or vomiting. Denies fever or chills. The patient reports his PCP, Dr. Mckenzie has been managing his diuretic dose on an outpatient basis. The patient was taking 40 mg in the morning and in the afternoon. He states recently his regimen was changed to 80 mg in the morning and 40 mg in the evening alternating every other day with 40mg in the morning and 40mg in the evening. Chest x-ray completed in the emergency room reveals patchy bilateral infiltrates with tiny right effusion. Underlying venous congestion not excluded. Laboratory data upon admission reveals white count 7.9. Hemoglobin 10.1. Platelet count 177. Sodium 144. Potassium 4.8. BUN 36. Creatinine 1.92. BNP 926. Most recent echocardiogram was performed in November 2017 which revealed ejection fraction between 50 and 55%, mild mitral regurgitation and mild tricuspid regurgitation. The patient was started on a lasix drip at 10mg/hour and admitted to the hospital under the care of Dr. Corona. Consultations were placed to cardiology and nephrology. 02/03/2018 Patient examined at the bedside with Dr. Corona. Patient states his breathing has improved. He remains on lasix drip at 10mg/hr. Patient reports he is urinating frequently. Weight is down to 131.5 from 134.3. Repeat echo reveals EF 55-60%. Denies chest pain or pressure. Denies nausea or vomiting. Patient reports he ambulated about 40 feet in the hallway today. 02/04/2018 Patient examined at the bedside. Denies shortness breath. Denies chest pain. Patient reports he is still voiding recurrently. His weight continues to trend downward. patient reports he and related in the hallway without shortness of breath. Denies nausea or vomiting. Tolerating oral intake. PHYSICAL EXAM: GENERAL: This is a 77-year-old male in no apparent distress at the time of examination. Pleasant and cooperative. HEENT: Head is atraumatic, normocephalic. Pupils are equal, round, and reactive to light. Sclerae anicteric. Conjunctivae are clear. Mucus membranes of the mouth are moist. Neck is supple. RESPIRATORY: Diminished. No wheezing noted. No use of accessory muscles. Patient maintaining oxygen saturation greater than 92%. No chest wall tenderness is noted on palpation or with deep breathing. CARDIOVASCULAR: Regular rate and rhythm. S1 and S2 noted. No JVD noted. No S3 or S4 noted. GASTROINTESTINAL: No distention noted. Abdomen soft and round. Normal active bowel sounds auscultated x 4 quadrants. No pain or tenderness noted upon palpation. INTEGUMENTARY: No cyanosis. No jaundice. No rashes noted. No cellulitis noted. EXTREMITIES: 2+ peripheral pulses. +2 bilateral LE edema, improved from yesterday. Scrotal edema noted. No calf tenderness noted. NEUROLOGIC: Cranial nerves II-XII intact. PSYCHIATRIC: Awake, alert, and oriented X 3. Appropriate affect. Intact judgement and insight. 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 Appreciate recommendations and input Lasix drip per cardiology and nephrology Daily weights Accurate I&O Encourage ambulation Recommend elevation of bilateral lower extremities and scrotum Continue with Novolog sliding scale ACHS and accuchecks ACHS Home meds as appropriate Monitor labs GI prophylaxis: Pepcid 20mg daily DVT prophylaxis: Pradaxa 75mg BID Monitor vital signs and address as appropriate Discharge planning: Patient to return home when stable Further recommendations pending patient's course Nurse practitioner note has been reviewed by physician. Signing provider agrees with the documented findings, assessment, and plan of care. Objective - Vital Signs Vital signs: Vital Signs Temp 98.5 F 02/04/18 08:00 Pulse 56 L 02/04/18 08:00 Resp 18 02/04/18 08:00 BP 120/78 02/04/18 08:00 Pulse Ox 94 L 02/04/18 08:00 Intake & Output 02/03/18 02/04/18 02/04/18 18:59 06:59 18:59 Intake Total 970 Output Total 800 2725 Balance 170 -2725 Weight 128.6 kg Intake: Intake, IV Titration 250 Amount Furosemide 250 mg In 250 Sodium Chloride 0.9% 225 ml @ 10 MG/HR 10 mls/hr IVP .Q24H [facility] Rx#: [id number] Oral 720 Output: Urine 800 2725 Other: Voiding Method Urinal Urinal # Voids 1 1 # Bowel Movements 1 - Labs CBC & Chem 7: 02/01/18 13:00 02/04/18 06:25 Labs: Abnormal Lab Results - Last 24 Hours (Table) 02/03/18 02/03/18 02/03/18 Range/Units 11:44 16:18 21:18 Carbon Dioxide (22-30) mmol/L BUN (9-20) mg/dL Creatinine (0.66-1.25) mg/dL Glucose (74-99) mg/dL POC Glucose (mg/dL) 191 H 210 H 178 H (75-99) mg/dL Magnesium (1.6-2.3) mg/dL 02/04/18 02/04/18 Range/Units 05:48 06:25 Carbon Dioxide 32 H (22-30) mmol/L BUN 38 H (9-20) mg/dL Creatinine 2.07 H (0.66-1.25) mg/dL Glucose 155 H (74-99) mg/dL POC Glucose (mg/dL) 156 H (75-99) mg/dL Magnesium 2.4 H (1.6-2.3) mg/dL
--- NOTE | 2018-02-04 12:16 | P.PN ---
Subjective Progress Note Date: 02/04/18 This is a 77-year-old gentleman who follows regularly with Dr. Topete in the office. Patient has known history of coronary artery disease as as well as peripheral vascular disease and has had prior carotid endarterectomy. Patient underwent a cardiac catheterization and was found to have diffuse triple-vessel disease, he did go to see cardiothoracic surgery and was waiting for clearance from a pulmonary perspective. Patient also has history of chronic renal failure. History of CVA, diabetes, hypertension, hyperlipidemia, history of cardiac ablation and drainage for prior cardial effusion, morbid obesity. He presented to the hospital on this occasion with symptoms of progressively worsening shortness of breath and weight gain for a minimum of 2 weeks duration. He states it's been going on longer but for the past 2 weeks it's been progressively worse. Positive PND and orthopnea and significant weight gain. He does state that some adjustments have been made to his Lasix dose in his primary care doctor's office, and he also states that he' s been drinking a significant amount of fluids at home. Chest x-ray on admission here showed patchy bilateral infiltrate with tiny right sided effusion , underlying venous congestion. EKG on admission showed a sinus bradycardia with first-degree AV block, nonspecific ST-T wave changes. Echocardiogram with Doppler study was performed which revealed an ejection fraction of 55-60%. I pressure 142/60 with a heart rate in the 50s. Blood cell count 7.9, hemoglobin 10.1, platelet count 177. Sodium 144, potassium 4.8 , BUN 36, creatinine 1.9. Magnesium 2.4. Troponin 0.012. BNP level 926. Patient was initiated on IV Lasix drip in the emergency room. Diuresed approximately 4000 out through the night last night and his weight is down significantly today. He does state that he notices a significant difference in his edema however he still has considerable edema present. 02/03/2018 Patient was seen and examined this morning, weight is down another 3 kg, edema is significantly improved as well. Sodium 143, potassium 5.5, BUN 34, creatinine 1.9, magnesium 2.3. We will continue current dose of IV Lasix drip for another 24 hours, check lytes BUN and creatinine in the morning, continue to monitor daily weights. 02/04/2018 was seen and examined this morning, weight is significantly down and can today. BUN 58, creatinine 2.07, magnesium 2.4, potassium 3.8. Patient continues to have significant edema in his bilateral lower extremities however also significantly improved from admission here. Lungs are essentially clear. Nephrology's recommendation is to continue current dose of IV Lasix drip. Continue to monitor intake and output along with daily weights and daily lytes BUN and creatinine. Patient does state that he's feeling better. Objective - Vital Signs Vital signs: Vital Signs Temp 98.5 F 02/04/18 08:00 Pulse 56 L 02/04/18 08:00 Resp 18 02/04/18 08:00 BP 120/78 02/04/18 08:00 Pulse Ox 94 L 02/04/18 08:00 Intake & Output 02/03/18 02/04/18 02/04/18 18:59 06:59 18:59 Intake Total 970 Output Total 800 2725 Balance 170 -2725 Weight 128.6 kg Intake: Intake, IV Titration 250 Amount Furosemide 250 mg In 250 Sodium Chloride 0.9% 225 ml @ 10 MG/HR 10 mls/hr IVP .Q24H [facility] Rx#: [id number] Oral 720 Output: Urine 800 2725 Other: Voiding Method Urinal Urinal # Voids 1 1 # Bowel Movements 1 - Exam PHYSICAL EXAMINATION: GENERAL: 77-year-old gentleman in no acute distress at the time of my examination HEENT: Head is atraumatic, normocephalic. Pupils equal, round. Sclera anicteric. Conjunctiva are clear. Mucous membranes of the mouth are moist. Neck is supple. There is elevated jugular venous pressure. No carotid bruit is heard. HEART EXAMINATION: S1 and S2 systolic murmur is heard. CHEST EXAMINATION: Lungs reveal improvement in air entry to bilateral bases. ABDOMEN: Firm, obese, nontender. Bowel sounds are heard. No organomegaly noted. EXTREMITIES: 2+ peripheral pulses with 1-2+ evidence of peripheral edema NEUROLOGIC patient is awake, alert and oriented 3. - Labs CBC & Chem 7: 02/01/18 13:00 02/04/18 06:25 Labs: Abnormal Lab Results - Last 24 Hours (Table) 02/03/18 02/03/18 02/04/18 Range/Units 16:18 21:18 05:48 Carbon Dioxide (22-30) mmol/L BUN (9-20) mg/dL Creatinine (0.66-1.25) mg/dL Glucose (74-99) mg/dL POC Glucose (mg/dL) 210 H 178 H 156 H (75-99) mg/dL Magnesium (1.6-2.3) mg/dL 02/04/18 02/04/18 Range/Units 06:25 11:11 Carbon Dioxide 32 H (22-30) mmol/L BUN 38 H (9-20) mg/dL Creatinine 2.07 H (0.66-1.25) mg/dL Glucose 155 H (74-99) mg/dL POC Glucose (mg/dL) 260 H (75-99) mg/dL Magnesium 2.4 H (1.6-2.3) mg/dL Assessment and Plan Plan: Assessment and plan #1 symptoms of shortness of breath with associated weight gain, likely secondary to acute exacerbation of diastolic congestive heart failure, right- sided ,acute on chronic, as well as cor pulmonale. We will continue current Lasix drip. #2 known history of coronary artery disease, patient had cardiac catheterization performed which revealed multivessel coronary artery disease, at this time patient has not yet undergone coronary bypass grafting surgery, awaiting clearance from pulmonary. #3 diabetes #4 hypertension #5 hyperlipidemia #6. Proximal atrial fibrillation, on Pradaxa for anticoagulation #7 history of cardiac ablation #8 GERD #9 acute on chronic renal failure #10 history of CVA #11 morbid obesity #12 PAD, status post carotid endarterectomy #13 sleep apnea Plan From cardiology's perspective, we'll continue current dose of IV Lasix drip for 24 hours. Check lytes BUN and creatinine intake and output and daily weights in the morning. DNP note has been reviewed, I agree with a documented findings and plan of care. Patient was seen and examined.
[2018-02-04 16:07] VITALS: BMI 41.8
[2018-02-04 16:13] LABS: Glucose,Whole Blood 214 mg/dL (75-99)
[2018-02-04] MEDS: ACETAMINOPHEN TAB 500 MG TAB PO PRN (16:22)
[2018-02-04] MEDS: FUROSEMIDE 250 MG in SODIUM CHLORIDE 0.9% 225 ML IVP SCH (18:10)
[2018-02-04 19:48] LABS: Glucose,Whole Blood 214 mg/dL (75-99)
[2018-02-04] MEDS: ALBUTEROL NEBULIZED 2.5 MG/3 ML INHALATION PRN (19:54)
[2018-02-04] MEDS: traMADol 50 MG TAB PO PRN (21:57)
[2018-02-04] MEDS: PRAVASTATIN SODIUM 80 MG TAB PO SCH (21:57)
[2018-02-05] MEDS: ACETAMINOPHEN TAB 500 MG TAB PO PRN ×2 (04:26→19:25)
[2018-02-05 06:05] LABS: Glucose,Whole Blood 159 mg/dL (75-99)
[2018-02-05] MEDS: INSULIN ASPART 100 UNIT/ML 1 ML 10 ML VIAL SQ SCH ×4 (06:55→22:23)
[2018-02-05] MEDS: CARVEDILOL 6.25 MG TAB PO SCH ×2 (06:55→17:15)
[2018-02-05 07:06] LABS: Calcium 9.3 mg/dL (8.4-10.2); Magnesium 2.3 mg/dL (1.6-2.3); Potassium 3.8 mmol/L (3.5-5.1)
--- NOTE | 2018-02-05 08:20 | P.PN ---
Subjective Patient is seen in follow-up for acute kidney injury on chronic kidney disease. Patient has chronic kidney disease stage III with baseline creatinine in the range of 1.3-1.4. Patient has diastolic CHF. Currently maintained on Lasix drip at 10 mL an hour. Renal function is worse with creatinine at 2.37 which is due to diuresis. Edema is improving. Weight is trending down. Patient feels much better. Vital signs are stable. General: The patient appeared well nourished and normally developed. HEENT: Head exam is unremarkable. Neck is without jugular venous distension. LUNGS: Lungs are clear to auscultation and percussion. Breath sounds decreased. HEART: Rate and Rhythm are regular. First and second heart sounds normal. No murmurs, rubs or gallops. ABDOMEN: Abdominal exam reveals normal bowel sounds. Non-tender and non- distended. No evidence of peritonitis. EXTREMITITES: 2+ edema. Objective - Vital Signs Vital signs: Vital Signs Temp 98.7 F 02/05/18 00:00 Pulse 52 L 02/05/18 04:00 Resp 18 02/05/18 04:00 BP 130/69 02/05/18 04:00 Pulse Ox 96 02/05/18 04:00 Intake & Output 02/04/18 02/05/18 02/05/18 18:59 06:59 18:59 Intake Total 472 Output Total 925 2850 Balance -453 -2850 Weight 128.6 kg 124.3 kg Intake: Intake, IV Titration 250 Amount Furosemide 250 mg In 250 Sodium Chloride 0.9% 225 ml @ 10 MG/HR 10 mls/hr IVP .Q24H [facility] Rx#: [id number] Oral 222 Output: Urine 925 2850 Other: Voiding Method Urinal Urinal # Voids 1 - Labs CBC & Chem 7: 02/01/18 13:00 02/05/18 06:24 Labs: Abnormal Lab Results - Last 24 Hours (Table) 02/04/18 02/04/18 02/04/18 Range/Units 11:11 16:11 19:47 Carbon Dioxide (22-30) mmol/L BUN (9-20) mg/dL Creatinine (0.66-1.25) mg/dL Glucose (74-99) mg/dL POC Glucose (mg/dL) 260 H 214 H 214 H (75-99) mg/dL 02/05/18 02/05/18 Range/Units 06:03 06:24 Carbon Dioxide 34 H (22-30) mmol/L BUN 48 H (9-20) mg/dL Creatinine 2.37 H (0.66-1.25) mg/dL Glucose 145 H (74-99) mg/dL POC Glucose (mg/dL) 159 H (75-99) mg/dL Assessment and Plan Plan: Assessment: 1. Nonoliguric acute kidney injury mostly prerenal secondary to cardiorenal syndrome. Creatinine worse at 2.37 today which is due to diuresis. Urinalysis is benign. 2. Chronic kidney disease stage III. Baseline creatinine in the range of 1.3- 1.4 secondary to acidosis. 3. Volume overload. Improving. 4. Diastolic CHF. 5. Hypertension with chronic kidney disease. Controlled. Plan: Discontinue Lasix drip. Start Lasix 60 mg IV twice daily. Maintain metolazone 2.5 mg once daily. Low-salt diet. 1.5 L fluid restriction. Avoid nephrotoxic agents. Patient has history of hyperkalemia and follows a strict low potassium diet. Avoid drugs that will raise potassium.
[2018-02-05] MEDS: DABIGATRAN 75 MG CAP PO SCH ×2 (08:38→20:16)
[2018-02-05] MEDS: ASPIRIN 81 MG PO SCH (08:38)
[2018-02-05] MEDS: DOCUSATE 100 MG CAP PO SCH ×2 (08:38→20:16)
[2018-02-05] MEDS: FAMOTIDINE 20 MG TAB PO SCH (08:38)
[2018-02-05] MEDS: TAMSULOSIN 0.4 MG CAP.ER.24H PO SCH ×2 (08:38→20:16)
[2018-02-05] MEDS: ISOSORBIDE MONONITRATE ER 30 MG TAB.ER.24H PO SCH (08:38)
[2018-02-05] MEDS: AMIODARONE 200 MG TAB PO SCH (08:38)
[2018-02-05] MEDS: METOLAZONE 2.5 MG TAB PO SCH (08:38)
[2018-02-05] MEDS: PREGABALIN 100 MG CAP PO SCH ×2 (08:38→22:22)
[2018-02-05] MEDS: amLODIPine 5 MG TAB PO SCH (08:38)
[2018-02-05] MEDS: traMADol 50 MG TAB PO PRN ×2 (08:40→23:59)
[2018-02-05] MEDS: FUROSEMIDE 10 MG/ML 10 ML VIAL IV SCH ×2 (08:45→20:17)
[2018-02-05] MEDS: FORMOTEROL FUMARATE 20 MCG/2 ML NEBU INHALATION SCH ×2 (08:57→20:05)
[2018-02-05] MEDS: BUDESONIDE 1 MG/2 ML NEBU INHALATION SCH ×2 (08:57→20:05)
--- NOTE | 2018-02-05 11:16 | P.PN ---
Subjective Progress Note Date: 02/05/18 77-year-old male with a past medical history significant for atrial fibrillation, diabetes, hyperlipidemia, and chronic kidney disease, who presented to the emergency room after he was evaluated outpatient by his logistics officer. The patient reported he has gained about 15 pounds in the last 10 days or so, increased shortness of breath, and increased swelling to his bilateral extremities. His logistics officer recommended he come to the ER for further evaluation. He denies chest pain or pressure. Denies nausea or vomiting. Denies fever or chills. The patient reports his PCP, Dr. Mckenzie has been managing his diuretic dose on an outpatient basis. The patient was taking 40 mg in the morning and in the afternoon. He states recently his regimen was changed to 80 mg in the morning and 40 mg in the evening alternating every other day with 40mg in the morning and 40mg in the evening. Chest x-ray completed in the emergency room reveals patchy bilateral infiltrates with tiny right effusion. Underlying venous congestion not excluded. Laboratory data upon admission reveals white count 7.9. Hemoglobin 10.1. Platelet count 177. Sodium 144. Potassium 4.8. BUN 36. Creatinine 1.92. BNP 926. Most recent echocardiogram was performed in November 2017 which revealed ejection fraction between 50 and 55%, mild mitral regurgitation and mild tricuspid regurgitation. The patient was started on a lasix drip at 10mg/hour and admitted to the hospital under the care of Dr. Corona. Consultations were placed to cardiology and nephrology. 02/03/2018 Patient examined at the bedside with Dr. Corona. Patient states his breathing has improved. He remains on lasix drip at 10mg/hr. Patient reports he is urinating frequently. Weight is down to 131.5 from 134.3. Repeat echo reveals EF 55-60%. Denies chest pain or pressure. Denies nausea or vomiting. Patient reports he ambulated about 40 feet in the hallway today. 02/04/2018 Patient examined at the bedside. Denies shortness breath. Denies chest pain. Patient reports he is still voiding recurrently. His weight continues to trend downward. patient reports he and related in the hallway without shortness of breath. Denies nausea or vomiting. Tolerating oral intake. 02/05/2018 Patient examined at the bedside. Patient was chest working with physical therapy and ambulated down the hallway independently. He denies shortness of breath or chest pain. His Lasix drip was discontinued this morning and he was placed on Lasix 60 mg IV twice daily. Creatinine today is 2.37. His weight continues to trend downward. Lower extremity edema is significantly improved. His scrotal edema is also significantly improved today. Vital signs remain stable. He is anticipating discharge home this weekend. PHYSICAL EXAM: GENERAL: This is a 77-year-old male in no apparent distress at the time of examination. Pleasant and cooperative. HEENT: Head is atraumatic, normocephalic. Pupils are equal, round, and reactive to light. Sclerae anicteric. Conjunctivae are clear. Mucus membranes of the mouth are moist. Neck is supple. RESPIRATORY: Diminished. No wheezing noted. No use of accessory muscles. Patient maintaining oxygen saturation greater than 92%. No chest wall tenderness is noted on palpation or with deep breathing. CARDIOVASCULAR: Regular rate and rhythm. S1 and S2 noted. No JVD noted. No S3 or S4 noted. GASTROINTESTINAL: No distention noted. Abdomen soft and round. Normal active bowel sounds auscultated x 4 quadrants. No pain or tenderness noted upon palpation. INTEGUMENTARY: No cyanosis. No jaundice. No rashes noted. No cellulitis noted. EXTREMITIES: 2+ peripheral pulses. +1 bilateral LE edema. Scrotal edema noted, improved from yesterday. No calf tenderness noted. NEUROLOGIC: Cranial nerves II-XII intact. PSYCHIATRIC: Awake, alert, and oriented X 3. Appropriate affect. Intact judgement and insight. ASSESSMENT: -Acute exacerbation of diastolic congestive heart failure, echo from 11/2017 reveals EF 50-55% -Acute kidney injury secondary to diuresis -Chronic kidney disease, stage III -Small right pleural effusion -Coronary artery disease with triple vessel disease, declining CABG at this time , recent cath revealed proximal RCA 70% stenosis, distal RCA 70% stenosis, circumflex 85% stenosis in proximal LAD 40-50% stenosis with a 90% lesion after the septal branch -Diabetes Mellitus, insulin dependent, utilizing insulin pump at home -Hyperlipidemia -Hypertension -Paroxysmal atrial fibrillation, on care home anticoagulation with Pradaxa -History of cardiac ablation, 2010 -History of cardioversion, 2013 -GERD -Osteoarthritis -Anemia of chronic disease -History of sleep apnea, patient utilizes CPAP machine -Carotid stenosis with history of right carotid endarterectomy with postoperative cardiac arrest and respiratory failure requiring intubation, April 2017 -History of CVA: right lacunar infarct, 05/2017 -Morbid obesity: BMI 43.7 -Hyperkalemia, ruled out due hemolyzed specimen PLAN: Nephrology and cardiology on consult. Appreciate recommendations and input Lasix changed to 60mg IV BID today Daily weights Accurate I&O Encourage ambulation Recommend elevation of bilateral lower extremities and scrotum Continue with Novolog sliding scale ACHS and accuchecks ACHS Home meds as appropriate Monitor labs GI prophylaxis: Pepcid 20mg daily DVT prophylaxis: Pradaxa 75mg BID Monitor vital signs and address as appropriate Discharge planning: Patient to return home when stable Further recommendations pending patient's course Anticipate discharge home this weekend if patient remains stable Nurse practitioner note has been reviewed by physician. Signing provider agrees with the documented findings, assessment, and plan of care. Objective - Vital Signs Vital signs: Vital Signs Temp 97 F L 02/05/18 08:00 Pulse 52 L 02/05/18 08:00 Resp 18 02/05/18 08:00 BP 107/51 02/05/18 08:00 Pulse Ox 92 L 02/05/18 08:00 Intake & Output 02/04/18 02/05/18 02/05/18 18:59 06:59 18:59 Intake Total 472 240 Output Total 925 2850 Balance -453 -2850 240 Weight 128.6 kg 124.3 kg Intake: Intake, IV Titration 250 Amount Furosemide 250 mg In 250 Sodium Chloride 0.9% 225 ml @ 10 MG/HR 10 mls/hr IVP .Q24H [facility] Rx#: [id number] Oral 222 240 Output: Urine 925 2850 Other: Voiding Method Urinal Urinal # Voids 1 - Labs CBC & Chem 7: 02/01/18 13:00 02/05/18 06:24 Labs: Abnormal Lab Results - Last 24 Hours (Table) 02/04/18 02/04/18 02/04/18 Range/Units 11:11 16:11 19:47 Carbon Dioxide (22-30) mmol/L BUN (9-20) mg/dL Creatinine (0.66-1.25) mg/dL Glucose (74-99) mg/dL POC Glucose (mg/dL) 260 H 214 H 214 H (75-99) mg/dL 02/05/18 02/05/18 Range/Units 06:03 06:24 Carbon Dioxide 34 H (22-30) mmol/L BUN 48 H (9-20) mg/dL Creatinine 2.37 H (0.66-1.25) mg/dL Glucose 145 H (74-99) mg/dL POC Glucose (mg/dL) 159 H (75-99) mg/dL
[2018-02-05] MEDS: ALBUTEROL NEBULIZED 2.5 MG/3 ML INHALATION PRN ×2 (12:06→20:05)
[2018-02-05 12:31] LABS: Glucose,Whole Blood 183 mg/dL (75-99)
--- NOTE | 2018-02-05 15:44 | P.CNPUL ---
History of Present Illness Consult date: 02/05/18 Requesting physician: Paddy Corona Reason for consult: dyspnea, hypoxemia, abnormal CXR/CT, obstructive sleep apnea Chief complaint: Dyspnea, hypoxia, weight gain History of present illness: This is a 77-year-old white male patient of Dr. Corona, presented to the emergency department on 02/01/2018 for evaluation of increasing dyspnea, peripheral edema, weight gain. Past medical history is positive for paroxysmal atrial fibrillation status post cardioversion and cardiac ablation on Pradaxa, diabetes, hypertension, hyperlipidemia, chronic kidney disease stage III, obstructive sleep apnea on CPAP therapy, coronary artery disease with history of bypass grafting, osteoarthritis, anemia, carotid stenosis with history of right carotid endarterectomy and postoperative cardiac arrest and respiratory failure requiring intubation in April 2017. Also positive for history of right lacunar 0 per vascular accident in May 2017, and morbid obesity. Patient reported 15 pound weight gain in 10 days, increasing shortness of breath and swelling to his bilateral extremities. Patient is on chronic diuretics, on Lasix 40 mg in the morning and 40 in the afternoon, which was recently increased to 80 mg in the morning and 40 in the afternoon. Chest x- ray shows patchy bilateral infiltrates with tiny right pleural effusion. EKG showed sinus bradycardia with a rate of 51 BPM, and ST and T-wave abnormality suggesting inferior lateral ischemia. She denies any fever or chills, denied any chest congestion, denied any phlegm production. Blood work showed WBC of 7.9, hemoglobin 10.1, INR was 1.6, electrolytes were essentially unremarkable, BUN is 36, creatinine is 1.92. ProBNP was 926, and troponin was 0.012, calluses was negative. Patient is currently on room air, his pulse ox 94%, he is wearing his CPAP unit from home at bedtime and as needed during the day. Echocardiogram with Doppler study was performed and revealed ejection fraction of 55-60%. IV Lasix drip was initiated in the emergency department, patient is diuresing, his peripheral edema is improving, and his dyspnea has improved. Review of Systems All systems: negative Constitutional: Denies chills, Denies fever Eyes: denies blurred vision, denies pain Ears, nose, mouth and throat: Denies headache, Denies sore throat Cardiovascular: Reports dyspnea on exertion, Reports edema, Reports leg edema, Denies chest pain, Denies shortness of breath Respiratory: Reports dyspnea, Denies cough Gastrointestinal: Denies abdominal pain, Denies diarrhea, Denies nausea, Denies vomiting Musculoskeletal: Denies myalgias Integumentary: Denies pruritus, Denies rash Neurological: Denies numbness, Denies weakness Psychiatric: Denies anxiety, Denies depression Endocrine: Denies fatigue, Denies weight change Past Medical History Past Medical History: Atrial Fibrillation, CVA/TIA, Diabetes Mellitus, Eye Disorder, GERD/Reflux, Hyperlipidemia, Myocardial Infarction ([place]), Osteoarthritis (OA), Renal Disease, Sleep Apnea/CPAP/BIPAP, Syncope Additional Past Medical History / Comment(s): Gout, upper rt dental bridge blockage left carotid artery, neuropathy, diverticulitis, insulin pump, uses a walker- wheelchair for distance. 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, hx pericardial effusion, macular degeneration left eye- gets injections"has never been told if he ever had chf in past" Last Myocardial Infarction Date:: 05/08/17 History of Any Multi-Drug Resistant Organisms: None Reported Past Surgical History: Cardiac Ablation, Joint Replacement, Orthopedic Surgery, Tonsillectomy Additional Past Surgical History / Comment(s): carpal tunnel rt wrist, rt knee replacement, shaka hip replacement, drainage for pericaridal effusion, cardioversion x 2, arthroscopy shaka knees, rt carotid endarterectomy, trigger finger shaka hands, shaka cataracts, "had a dialysis cath inserted in nov 2017 only had 2 treatments-cath since removed" Past Anesthesia/Blood Transfusion Reactions: No Reported Reaction Smoking Status: Never smoker - Past Family History Mother Family Medical History: Diabetes Mellitus, Hyperlipidemia, Hypertension, Myocardial Infarction ([place]) Daughter(s) Family Medical History: Cancer Father Additional Family Medical History / Comment(s): alcoholic Medications and Allergies Home Medications Medication Instructions Recorded Confirmed Type Tamsulosin HCl [Flomax] 0.4 mg PO BID 03/04/17 02/01/18 History Aspirin [Adult Low Dose Aspirin EC] 81 mg PO DAILY 04/27/17 02/01/18 History Acetaminophen [Tylenol Arthritis] 1,300 mg PO Q12H PRN 08/06/17 02/01/18 History INSULIN LISPRO (For Pump) [humaLOG 0.01 units SQ-PUMP CONTINUOUS 08/06/17 History (For Pump)] Isosorbide Mononitrate [Isosorbide 30 mg PO DAILY 08/06/17 02/01/18 History Mononitrate ER] Nitroglycerin Sl Tabs [Nitrostat] 0.4 mg SUBLINGUAL Q5M PRN 08/06/17 02/01/18 History Zolpidem [Ambien] 5 - 10 mg PO HS PRN 08/06/17 02/01/18 History traMADol HCL [Ultram] 50 mg PO Q8HR PRN 08/06/17 02/01/18 History amLODIPine BESYLATE [Norvasc] 5 mg PO DAILY #90 tablet 08/13/17 02/01/18 Rx Albuterol Inhaler [Ventolin Hfa 2 puff INHALATION RT-Q4H 10/26/17 02/01/18 History Inhaler] Amiodarone [Cordarone] 200 mg PO DAILY 10/26/17 02/01/18 History Budesonide/Formoterol Fumarate 2 puff INHALATION RT-BID 10/26/17 02/01/18 History [Symbicort 160-4.5 Mcg Inhaler] Carvedilol [Coreg] 6.25 mg PO BID-W/MEALS #60 tab 11/16/17 02/01/18 Rx Dabigatran [Pradaxa] 75 mg PO BID #60 cap 11/16/17 02/01/18 Rx Docusate [Colace] 100 mg PO BID cap 11/16/17 02/01/18 Rx Famotidine [Pepcid] 20 mg PO DAILY #0 tab 11/16/17 02/01/18 Rx Pravastatin Sodium [Pravachol] 80 mg PO HS #30 tab 11/16/17 02/01/18 Rx Pregabalin [Lyrica] 75 mg PO BID #60 cap 11/16/17 02/01/18 Rx Furosemide [Lasix] 40 mg PO HS 02/01/18 02/01/18 History Furosemide [Lasix] 40 mg PO Q48H 02/01/18 02/01/18 History Furosemide [Lasix] 80 mg PO Q48H 02/01/18 02/01/18 History Allergies Allergy/AdvReac Type Severity Reaction Status Date / Time No Known Allergies Allergy Verified 02/01/18 13:00 Physical Exam Vitals: Vital Signs Temp Pulse Pulse Resp BP Pulse Ox 02/05/18 12:16 52 L 02/05/18 12:10 97.1 F L 47 L 18 137/71 94 L 02/05/18 12:06 52 L 02/05/18 08:00 97 F L 52 L 18 107/51 92 L 02/05/18 04:00 52 L 18 130/69 96 02/05/18 00:00 98.7 F 53 L 18 144/57 95 02/04/18 20:14 55 L 02/04/18 20:06 53 L 02/04/18 20:05 53 L 02/04/18 20:00 99.5 F 50 L 16 144/60 95 02/04/18 19:54 54 L 02/04/18 16:00 54 L 18 Intake and Output 02/05/18 02/05/18 02/05/18 06:59 14:59 22:59 Intake Total 240 Output Total 2850 600 Balance -2850 -360 Intake: Oral 240 Output: Urine 2850 600 Other: Voiding Method Urinal # Voids 1 Weight 124.3 kg GENERAL EXAM: Alert, pleasant, 6-year-old white male, comfortable in no apparent distress. HEAD: Normocephalic/atraumatic. EYES: Normal reaction of pupils, equal size. Conjunctiva pink, sclera white. NOSE: Clear with pink turbinates. THROAT: No erythema or exudates. NECK: No masses, no JVD, no thyroid enlargement, no adenopathy. CHEST: No chest wall deformity. Symmetrical expansion. LUNGS: Equal air entry with no crackles, wheeze, rhonchi or dullness. Diminished at the bases CVS: Regular rate and rhythm, normal S1 and S2, no gallops, no murmurs, no rubs ABDOMEN: Soft, nontender. No hepatosplenomegaly, normal bowel sounds, no guarding or rigidity. EXTREMITIES: No clubbing, no edema, no cyanosis, 2+ pulses and upper and lower extremities. MUSCULOSKELETAL: Muscle strength and tone normal. SPINE: No scoliosis or deformity SKIN: No rashes CENTRAL NERVOUS SYSTEM: Alert and oriented -3. No focal deficits, tone is normal in all 4 extremities. PSYCHIATRIC: Alert and oriented -3. Appropriate affect. Intact judgment and insight. Results - Laboratory Findings CBC and BMP: 02/01/18 13:00 02/05/18 06:24 PT/INR, D-dimer PT 14.5 sec (9.0-12.0) H 02/01/18 13:00 INR 1.6 (<1.2) H 02/01/18 13:00 Abnormal lab findings: Abnormal Labs 02/01/18 02/01/18 02/01/18 13:00 13:00 13:00 RBC 3.55 L Hgb 10.1 L Hct 32.7 L MCHC 30.8 L RDW 17.5 H Lymphocytes # 0.9 L PT INR APTT Potassium Chloride 108 H Carbon Dioxide BUN 36 H Creatinine 1.92 H Glucose POC Glucose (mg/dL) Hemoglobin A1c Magnesium 2.4 H ALT 19 L Total Creatine Kinase 180 H CK-MB (CK-2) 4.1 H 02/01/18 02/01/18 02/01/18 13:00 13:00 14:54 RBC Hgb Hct MCHC RDW Lymphocytes # PT 14.5 H INR 1.6 H APTT 44.5 H Potassium Chloride Carbon Dioxide BUN Creatinine Glucose POC Glucose (mg/dL) 68 L Hemoglobin A1c 6.3 H Magnesium ALT Total Creatine Kinase CK-MB (CK-2) 02/01/18 02/01/18 02/01/18 15:18 15:39 16:30 RBC Hgb Hct MCHC RDW Lymphocytes # PT INR APTT Potassium Chloride Carbon Dioxide BUN Creatinine Glucose POC Glucose (mg/dL) 67 L 106 H 121 H Hemoglobin A1c Magnesium ALT Total Creatine Kinase CK-MB (CK-2) 02/01/18 02/02/18 02/02/18 21:11 01:58 05:29 RBC Hgb Hct MCHC RDW Lymphocytes # PT INR APTT Potassium Chloride Carbon Dioxide BUN 34 H Creatinine 1.84 H Glucose 157 H POC Glucose (mg/dL) 193 H 137 H Hemoglobin A1c Magnesium ALT Total Creatine Kinase CK-MB (CK-2) 02/02/18 02/02/18 02/02/18 06:21 11:45 16:20 RBC Hgb Hct MCHC RDW Lymphocytes # PT INR APTT Potassium Chloride Carbon Dioxide BUN Creatinine Glucose POC Glucose (mg/dL) 159 H 150 H 174 H Hemoglobin A1c Magnesium ALT Total Creatine Kinase CK-MB (CK-2) 02/02/18 02/02/18 02/03/18 20:31 21:31 02:12 RBC Hgb Hct MCHC RDW Lymphocytes # PT INR APTT Potassium Chloride Carbon Dioxide BUN Creatinine Glucose POC Glucose (mg/dL) 215 H 199 H 156 H Hemoglobin A1c Magnesium ALT Total Creatine Kinase CK-MB (CK-2) 02/03/18 02/03/18 02/03/18 06:05 06:23 11:44 RBC Hgb Hct MCHC RDW Lymphocytes # PT INR APTT Potassium 5.5 H Chloride 110 H Carbon Dioxide 20 L BUN 34 H Creatinine 1.95 H Glucose 172 H POC Glucose (mg/dL) 183 H 191 H Hemoglobin A1c Magnesium ALT Total Creatine Kinase CK-MB (CK-2) 02/03/18 02/03/18 02/04/18 16:18 21:18 05:48 RBC Hgb Hct MCHC RDW Lymphocytes # PT INR APTT Potassium Chloride Carbon Dioxide BUN Creatinine Glucose POC Glucose (mg/dL) 210 H 178 H 156 H Hemoglobin A1c Magnesium ALT Total Creatine Kinase CK-MB (CK-2) 02/04/18 02/04/18 02/04/18 06:25 11:11 16:11 RBC Hgb Hct MCHC RDW Lymphocytes # PT INR APTT Potassium Chloride Carbon Dioxide 32 H BUN 38 H Creatinine 2.07 H Glucose 155 H POC Glucose (mg/dL) 260 H 214 H Hemoglobin A1c Magnesium 2.4 H ALT Total Creatine Kinase CK-MB (CK-2) 02/04/18 02/05/18 02/05/18 19:47 06:03 06:24 RBC Hgb Hct MCHC RDW Lymphocytes # PT INR APTT Potassium Chloride Carbon Dioxide 34 H BUN 48 H Creatinine 2.37 H Glucose 145 H POC Glucose (mg/dL) 214 H 159 H Hemoglobin A1c Magnesium ALT Total Creatine Kinase CK-MB (CK-2) 02/05/18 12:26 RBC Hgb Hct MCHC RDW Lymphocytes # PT INR APTT Potassium Chloride Carbon Dioxide BUN Creatinine Glucose POC Glucose (mg/dL) 183 H Hemoglobin A1c Magnesium ALT Total Creatine Kinase CK-MB (CK-2) - Diagnostic Findings Chest x-ray: report reviewed, image reviewed Additional studies: EKG reviewed Assessment and Plan Plan: Assessment: #1. Acute on chronic exacerbation of diastolic congestive heart failure #2. Dyspnea, orthopnea, weight gain related to the above #3. History of coronary artery disease, patient has not undergone coronary artery bypass grafting #4. Carotid artery stenosis, status post carotid endarterectomy and postoperative cardiac arrest #5. Diabetes mellitus type 2, on insulin drip, with peripheral neuropathy #6. Hypertension #7. Hyperlipidemia #8. History of atrial fibrillation on Pradaxa, status post cardioversion and ablation #9. History of CVA in May 2017 #10. Morbid obesity #11. Mild obstructive sleep apnea with AHI index of 10.7, patient is on BiPAP therapy with pressures of 20/15 cm of water #12. Chronic kidney disease stage II #13. Benign prostatic hypertrophy Plan: Continue IV diuretics, continue nebulized bronchodilators, Pulmicort and Perforomist, patient can continue wearing his BiPAP unit from home, diuresing, and he is breathing easier, maintaining oxygenation on 2 L, and at times patient is on room air. Bilateral lower extremity edema is improving. He is down to 4.3 kg since admission. Maintaining negative fluid balance. We'll continue to follow I performed a history & physical examination of the patient and discussed their management with my nurse practitioner, Pushpa Maki. I reviewed the nurse practitioner's note and agree with the documented findings and plan of care. Lung sounds are positive for diminished at the bases. The findings and the impression was discussed with the patient. I attest to the documentation by the nurse practitioner. Time with Patient: Greater than 30
--- NOTE | 2018-02-05 16:45 | P.PN ---
Subjective Progress Note Date: 02/05/18 This is a 77-year-old gentleman with history of diffuse coronary artery disease including left main who was consulted for coronary bypass surgery, previous stroke and cardiac arrest, was admitted to the hospital with weight gain, Sigmund. Edema and congestive heart failure. Patient has been on IV Lasix drip and has lost several pounds. His creatinine has gone up to 2.6 from 1.9. Patient is switched to IV Lasix boluses. He lost several pounds feeling better. Patient is able finally to sleep in bed. Lungs appeared to be showing good air exchange at this time. We'll continue with IV diuretics. Continue to follow his electrolytes. Rest of the medication to be continued including Zaroxolyn. Objective - Vital Signs Vital signs: Vital Signs Temp 97.2 F L 02/05/18 15:36 Pulse 48 L 02/05/18 16:15 Resp 16 02/05/18 16:15 BP 126/55 02/05/18 15:36 Pulse Ox 94 L 02/05/18 12:10 Intake & Output 02/04/18 02/05/18 02/05/18 18:59 06:59 18:59 Intake Total 472 480 Output Total 925 2850 600 Balance -453 -2850 -120 Weight 128.6 kg 124.3 kg Intake: Intake, IV Titration 250 Amount Furosemide 250 mg In 250 Sodium Chloride 0.9% 225 ml @ 10 MG/HR 10 mls/hr IVP .Q24H [facility] Rx#: [id number] Oral 222 480 Output: Urine 925 2850 600 Other: Voiding Method Urinal Urinal Urinal # Voids 1 - Exam GENERAL EXAM: Patient is alert and oriented and doesn't appear to be in any acute distress HEENT: Normocephalic. Normal reaction of pupils, equal size, normal range of extraocular motion. No erythema or exudates in the throat. NECK: No masses, no nuchal rigidity. CHEST: No chest wall deformity. LUNGS: Diminished air exchange HEART: Distant heart sounds ABDOMEN: No hepatosplenomegaly, normal bowel sounds, no guarding or rigidity. SKIN: No rashes CENTRAL NERVOUS SYSTEM: No focal deficits. EXTREMITIES: Resolving edema - Labs CBC & Chem 7: 02/01/18 13:00 02/05/18 06:24 Labs: Abnormal Lab Results - Last 24 Hours (Table) 02/04/18 02/05/18 02/05/18 Range/Units 19:47 06:03 06:24 Carbon Dioxide 34 H (22-30) mmol/L BUN 48 H (9-20) mg/dL Creatinine 2.37 H (0.66-1.25) mg/dL Glucose 145 H (74-99) mg/dL POC Glucose (mg/dL) 214 H 159 H (75-99) mg/dL 02/05/18 Range/Units 12:26 Carbon Dioxide (22-30) mmol/L BUN (9-20) mg/dL Creatinine (0.66-1.25) mg/dL Glucose (74-99) mg/dL POC Glucose (mg/dL) 183 H (75-99) mg/dL Assessment and Plan (1) Chronic renal failure Current Visit: Yes Status: Acute Code(s): N18.9 - CHRONIC KIDNEY DISEASE, UNSPECIFIED SNOMED Code(s): 21697646 (2) Fluid overload Current Visit: Yes Status: Acute Code(s): E87.70 - FLUID OVERLOAD, UNSPECIFIED SNOMED Code(s): 41600214 (3) CAD in [place] artery Current Visit: No Status: Acute Code(s): I25.10 - ATHSCL HEART DISEASE OF [place] CORONARY ARTERY W/O ANG PCTRS SNOMED Code(s): 0779732412569 (4) Cardiopulmonary arrest with successful resuscitation Current Visit: No Status: Acute Code(s): I46.9 - CARDIAC ARREST, CAUSE UNSPECIFIED SNOMED Code(s): 931447840 Plan: Patient is switching from IV Lasix tip to boluses of IV Lasix. He is on multiple other medications including Zaroxolyn, Imdur and beta blockers. Continue current medical therapy
[2018-02-05 17:14] LABS: Glucose,Whole Blood 196 mg/dL (75-99)
[2018-02-05] MEDS ORDERED: ARTIFICIAL TEARS-HYPROMELLOSE DROPS 15 ML BTL BOTH EYES PRN (17:33)
[2018-02-05] MEDS: PRAVASTATIN SODIUM 80 MG TAB PO SCH (20:16)
[2018-02-05 21:09] LABS: Glucose,Whole Blood 184 mg/dL (75-99)
[2018-02-06 06:23] LABS: Glucose,Whole Blood 159 mg/dL (75-99)
[2018-02-06] MEDS: CARVEDILOL 6.25 MG TAB PO SCH ×2 (07:12→17:36)
[2018-02-06] MEDS: INSULIN ASPART 100 UNIT/ML 1 ML 10 ML VIAL SQ SCH ×4 (07:12→22:44)
[2018-02-06 07:51] LABS: Calcium 9.2 mg/dL (8.4-10.2)
[2018-02-06 07:54] LABS: Magnesium 2.4 mg/dL (1.6-2.3)
[2018-02-06] MEDS: FUROSEMIDE 10 MG/ML 10 ML VIAL IV SCH (08:43)
[2018-02-06] MEDS: DOCUSATE 100 MG CAP PO SCH ×2 (08:44→22:44)
[2018-02-06] MEDS: AMIODARONE 200 MG TAB PO SCH (08:44)
[2018-02-06] MEDS: ASPIRIN 81 MG PO SCH (08:44)
[2018-02-06] MEDS: TAMSULOSIN 0.4 MG CAP.ER.24H PO SCH ×2 (08:44→22:47)
[2018-02-06] MEDS: amLODIPine 5 MG TAB PO SCH (08:44)
[2018-02-06] MEDS: PREGABALIN 100 MG CAP PO SCH ×2 (08:45→22:45)
[2018-02-06] MEDS: ISOSORBIDE MONONITRATE ER 30 MG TAB.ER.24H PO SCH (08:45)
[2018-02-06] MEDS: FAMOTIDINE 20 MG TAB PO SCH (08:45)
[2018-02-06] MEDS: FORMOTEROL FUMARATE 20 MCG/2 ML NEBU INHALATION SCH ×2 (09:57→19:40)
[2018-02-06] MEDS: BUDESONIDE 1 MG/2 ML NEBU INHALATION SCH ×3 (09:57→19:40)
[2018-02-06] MEDS: ACETAMINOPHEN TAB 500 MG TAB PO PRN (10:09)
[2018-02-06] MEDS: DABIGATRAN 75 MG CAP PO SCH ×2 (10:09→22:45)
[2018-02-06] MEDS: METOLAZONE 2.5 MG TAB PO SCH (10:09)
[2018-02-06 11:57] LABS: Glucose,Whole Blood 238 mg/dL (75-99)
--- NOTE | 2018-02-06 12:41 | P.PN ---
Subjective 77-year-old male with a past medical history significant for atrial fibrillation, diabetes, hyperlipidemia, and chronic kidney disease, who presented to the emergency room after he was evaluated outpatient by his zoo keeper. The patient reported he has gained about 15 pounds in the last 10 days or so, increased shortness of breath, and increased swelling to his bilateral extremities. His zoo keeper recommended he come to the ER for further evaluation. He denies chest pain or pressure. Denies nausea or vomiting. Denies fever or chills. The patient reports his PCP, Dr. Mckenzie has been managing his diuretic dose on an outpatient basis. The patient was taking 40 mg in the morning and in the afternoon. He states recently his regimen was changed to 80 mg in the morning and 40 mg in the evening alternating every other day with 40mg in the morning and 40mg in the evening. Chest x-ray completed in the emergency room reveals patchy bilateral infiltrates with tiny right effusion. Underlying venous congestion not excluded. Laboratory data upon admission reveals white count 7.9. Hemoglobin 10.1. Platelet count 177. Sodium 144. Potassium 4.8. BUN 36. Creatinine 1.92. BNP 926. Most recent echocardiogram was performed in November 2017 which revealed ejection fraction between 50 and 55%, mild mitral regurgitation and mild tricuspid regurgitation. The patient was started on a lasix drip at 10mg/hour and admitted to the hospital under the care of Dr. Corona. Consultations were placed to cardiology and nephrology. 02/03/2018 Patient examined at the bedside with Dr. Corona. Patient states his breathing has improved. He remains on lasix drip at 10mg/hr. Patient reports he is urinating frequently. Weight is down to 131.5 from 134.3. Repeat echo reveals EF 55-60%. Denies chest pain or pressure. Denies nausea or vomiting. Patient reports he ambulated about 40 feet in the hallway today. 02/04/2018 Patient examined at the bedside. Denies shortness breath. Denies chest pain. Patient reports he is still voiding recurrently. His weight continues to trend downward. patient reports he and related in the hallway without shortness of breath. Denies nausea or vomiting. Tolerating oral intake. 02/05/2018 Patient examined at the bedside. Patient was chest working with physical therapy and ambulated down the hallway independently. He denies shortness of breath or chest pain. His Lasix drip was discontinued this morning and he was placed on Lasix 60 mg IV twice daily. Creatinine today is 2.37. His weight continues to trend downward. Lower extremity edema is significantly improved. His scrotal edema is also significantly improved today. Vital signs remain stable. He is anticipating discharge home this weekend. 02/06/2018 Patient is down another 1.5 kg. He is currently on Lasix 60 mg IV push twice a day, along with Zaroxolyn orally. Creatinine is roughly the same at 2.36 today. He denies any chest pains, pressures, or shortness of breath at this time. He is ambulating much better previously he reports the swelling to his scrotum and legs much improved. Nephrology and cardiology consult. He is now ambulating the rocha without difficulty. He remains on Pradaxa for anticoagulation Objective - Vital Signs Vital signs: Vital Signs Temp 98.0 F 02/06/18 08:53 Pulse 51 L 02/06/18 12:27 Resp 18 02/06/18 12:27 BP 144/63 02/06/18 08:53 Pulse Ox 94 L 02/06/18 08:53 Intake & Output 02/05/18 02/06/18 02/06/18 18:59 06:59 18:59 Intake Total 720 380 Output Total 600 2000 300 Balance 120 -2000 80 Weight 122.5 kg Intake: Oral 720 380 Output: Urine 600 2000 300 Other: Voiding Method Urinal Urinal Urinal # Voids 1 1 - Exam GENERAL: This is a 77-year-old male in no apparent distress at the time of examination. Pleasant and cooperative. Neck :supple. RESPIRATORY: Diminished. No wheezing noted. No use of accessory muscles. Patient maintaining oxygen saturation greater than 92%. No chest wall tenderness is noted on palpation or with deep breathing. This is improved from several days ago. CARDIOVASCULAR: Regular rate and rhythm. S1 and S2 noted. No JVD noted. No S3 or S4 noted. GASTROINTESTINAL: No distention noted. Abdomen soft and round. Normal active bowel sounds auscultated x 4 quadrants. No pain or tenderness noted upon palpation. INTEGUMENTARY: No cyanosis. No jaundice. No rashes noted. No cellulitis noted. EXTREMITIES: 2+ peripheral pulses. +1 bilateral LE edema. Scrotal edema noted, improved from yesterday. No calf tenderness noted. NEUROLOGIC: Cranial nerves II-XII intact. PSYCHIATRIC: Awake, alert, and oriented X 3. Appropriate affect. Intact judgement and insight. - Labs CBC & Chem 7: 02/01/18 13:00 02/06/18 06:46 Labs: Abnormal Lab Results - Last 24 Hours (Table) 02/05/18 02/05/18 02/06/18 Range/Units 17:07 21:07 06:19 Chloride (98-107) mmol/L Carbon Dioxide (22-30) mmol/L BUN (9-20) mg/dL Creatinine (0.66-1.25) mg/dL Glucose (74-99) mg/dL POC Glucose (mg/dL) 196 H 184 H 159 H (75-99) mg/dL Magnesium (1.6-2.3) mg/dL 02/06/18 02/06/18 Range/Units 06:46 11:54 Chloride 97 L (98-107) mmol/L Carbon Dioxide 31 H (22-30) mmol/L BUN 59 H (9-20) mg/dL Creatinine 2.36 H (0.66-1.25) mg/dL Glucose 162 H (74-99) mg/dL POC Glucose (mg/dL) 238 H (75-99) mg/dL Magnesium 2.4 H (1.6-2.3) mg/dL Assessment and Plan Plan: ASSESSMENT: -Acute exacerbation of diastolic congestive heart failure, echo from 11/2017 reveals EF 50-55%, repeat echonow shows 55-60%. 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 Appreciate recommendations and input Lasix currently 60mg IV BID with oral Zaroxolyn 2.5 L daily Daily weights Accurate I&O Encourage ambulation Continue elevation of bilateral lower extremities and scrotum Continue with Novolog sliding scale ACHS and accuchecks ACHS Home meds as appropriate Monitor labs GI prophylaxis: Pepcid 20mg daily DVT prophylaxis: Pradaxa 75mg BID Monitor vital signs and address as appropriate Discharge planning: Patient to return home when stable Further recommendations pending patient's course Anticipate discharge home in 24-48 hours, depending on recommendations from nephrology and cardiology.
--- NOTE | 2018-02-06 12:49 | P.PN ---
Subjective Progress Note Date: 02/06/18 Principal diagnosis: This is a 69-year-old male with chronic kidney disease with fluctuating creatinine doesn't outpatient came in because of worsening edema shortness of breath and has responded well to IV Lasix. He was initially on IV Lasix drip was changed to IV Lasix every 12. Continues to have good urine output and has been feeling much better and states his asbestos as he has felt over 1 year. Is able to walk without any dizziness. Minimal cough good appetite. He is known with diabetes, atrial fibrillation, myocardial infarction sleep apnea. In the past his creatinine has been as high as 4 Objective - Vital Signs Vital signs: Vital Signs Temp 98.0 F 02/06/18 08:53 Pulse 51 L 02/06/18 12:27 Resp 18 02/06/18 12:27 BP 144/63 02/06/18 08:53 Pulse Ox 94 L 02/06/18 08:53 Intake & Output 02/05/18 02/06/18 02/06/18 18:59 06:59 18:59 Intake Total 720 380 Output Total 600 2000 300 Balance 120 -2000 80 Weight 122.5 kg Intake: Oral 720 380 Output: Urine 600 2000 300 Other: Voiding Method Urinal Urinal Urinal # Voids 1 1 General: The patient appeared well nourished and normally developed. HEENT: Head exam is unremarkable. Neck is without jugular venous distension. LUNGS: Lungs are clear to auscultation and percussion. Breath sounds decreased. HEART: Rate and Rhythm are regular. First and second heart sounds normal. No murmurs, rubs or gallops. ABDOMEN: Abdominal exam reveals normal bowel sounds. Non-tender and non- distended. No evidence of peritonitis. EXTREMITITES: 2+ edema. - Labs CBC & Chem 7: 02/01/18 13:00 02/06/18 06:46 Labs: Abnormal Lab Results - Last 24 Hours (Table) 02/05/18 02/05/18 02/06/18 Range/Units 17:07 21:07 06:19 Chloride (98-107) mmol/L Carbon Dioxide (22-30) mmol/L BUN (9-20) mg/dL Creatinine (0.66-1.25) mg/dL Glucose (74-99) mg/dL POC Glucose (mg/dL) 196 H 184 H 159 H (75-99) mg/dL Magnesium (1.6-2.3) mg/dL 02/06/18 02/06/18 Range/Units 06:46 11:54 Chloride 97 L (98-107) mmol/L Carbon Dioxide 31 H (22-30) mmol/L BUN 59 H (9-20) mg/dL Creatinine 2.36 H (0.66-1.25) mg/dL Glucose 162 H (74-99) mg/dL POC Glucose (mg/dL) 238 H (75-99) mg/dL Magnesium 2.4 H (1.6-2.3) mg/dL Assessment and Plan Plan: Assessment: 1. Nonoliguric acute kidney injury mostly prerenal secondary to cardiorenal syndrome. Creatinine continues to go up to 2.36 this morning . Urinalysis is benign. Patient is feeling significantly improved with the best he has felt in about a year regarding his shortness of breath. 2. Chronic kidney disease stage III. Baseline creatinine in the range of 1.3- 1.4 earlier this year on 05/21/2017 but more lately his creatinine has been in the 1.7) best on 11/19/2017. He was creatinine has been 4.1 dated 11/09/2079 3. Volume overload. Significantly improved 4. Diastolic CHF. 5. Hypertension with chronic kidney disease. Controlled. Plan: 1. Will discontinue the IV Lasix and start him on torsemide, 80 mg a day. This is because at home he was on what dose of by mouth Lasix and was not responding. Maintain Lasix drip at 10 mL an hour. 2. Maintain Low-salt diet. 3. 1.5 L fluid restriction. 4. Avoid nephrotoxic agents. 5. Patient has history of hyperkalemia and follows a strict low potassium diet. Avoid drugs that will raise potassium. If he responds well to torsemide he can be discharged tomorrow
[2018-02-06] MEDS: traMADol 50 MG TAB PO PRN ×2 (13:45→22:45)
--- NOTE | 2018-02-06 14:34 | P.PN ---
Subjective Progress Note Date: 02/06/18 Principal diagnosis: Dyspnea, hypoxic, weight gain, acute exacerbation of chronic diastolic congestive heart failure This is a 77-year-old white male patient of Dr. Corona, presented to the emergency department on 02/01/2018 for evaluation of increasing dyspnea, peripheral edema, weight gain. Past medical history is positive for paroxysmal atrial fibrillation status post cardioversion and cardiac ablation on Pradaxa, diabetes, hypertension, hyperlipidemia, chronic kidney disease stage III, obstructive sleep apnea on CPAP therapy, coronary artery disease with history of bypass grafting, osteoarthritis, anemia, carotid stenosis with history of right carotid endarterectomy and postoperative cardiac arrest and respiratory failure requiring intubation in April 2017. Also positive for history of right lacunar 0 per vascular accident in May 2017, and morbid obesity. Patient reported 15 pound weight gain in 10 days, increasing shortness of breath and swelling to his bilateral extremities. Patient is on chronic diuretics, on Lasix 40 mg in the morning and 40 in the afternoon, which was recently increased to 80 mg in the morning and 40 in the afternoon. Chest x- ray shows patchy bilateral infiltrates with tiny right pleural effusion. EKG showed sinus bradycardia with a rate of 51 BPM, and ST and T-wave abnormality suggesting inferior lateral ischemia. She denies any fever or chills, denied any chest congestion, denied any phlegm production. Blood work showed WBC of 7.9, hemoglobin 10.1, INR was 1.6, electrolytes were essentially unremarkable, BUN is 36, creatinine is 1.92. ProBNP was 926, and troponin was 0.012, calluses was negative. Patient is currently on room air, his pulse ox 94%, he is wearing his CPAP unit from home at bedtime and as needed during the day. Echocardiogram with Doppler study was performed and revealed ejection fraction of 55-60%. IV Lasix drip was initiated in the emergency department, patient is diuresing, his peripheral edema is improving, and his dyspnea has improved. On 02/06/2018 patient seen in follow-up on selective care unit, she is up in the chair, in no acute distress, awake and alert, room air pulse ox is 94%, he is afebrile, hemodynamically stable, lung sounds are diminished, a few bibasilar crackles, he remains on oral diuretics, he is on Demadex, and Zaroxolyn, is in -1880 mL fluid balance over the last 24 hours, overall she is down 11.8 kg since admission. Has some residual bilateral extremity edema, new chest x-rays today, lab work was reviewed, BNP was done only, sodium is 141, potassium is 4.0, chloride is 97, CO2 31, BUN 69, creatinine is 2.36, nephrology is following. Denies any worsening dyspnea or chest pain. Objective - Vital Signs Vital signs: Vital Signs Temp 98.0 F 02/06/18 08:53 Pulse 51 L 02/06/18 12:27 Resp 18 02/06/18 12:27 BP 144/63 02/06/18 08:53 Pulse Ox 94 L 02/06/18 08:53 Intake & Output 02/05/18 02/06/18 02/06/18 18:59 06:59 18:59 Intake Total 720 380 Output Total 600 2000 300 Balance 120 -2000 80 Weight 122.5 kg Intake: Oral 720 380 Output: Urine 600 2000 300 Other: Voiding Method Urinal Urinal Urinal # Voids 1 1 - Exam GENERAL EXAM: Alert, pleasant, 77-year-old white male, comfortable in no apparent distress. HEAD: Normocephalic/atraumatic. EYES: Normal reaction of pupils, equal size. Conjunctiva pink, sclera white. NOSE: Clear with pink turbinates. THROAT: No erythema or exudates. NECK: No masses, no JVD, no thyroid enlargement, no adenopathy. CHEST: No chest wall deformity. Symmetrical expansion. LUNGS: Equal air entry with no crackles, wheeze, rhonchi or dullness. Diminished at the bases CVS: Regular rate and rhythm, normal S1 and S2, no gallops, no murmurs, no rubs ABDOMEN: Soft, nontender. No hepatosplenomegaly, normal bowel sounds, no guarding or rigidity. EXTREMITIES: No clubbing, no edema, no cyanosis, 2+ pulses and upper and lower extremities. MUSCULOSKELETAL: Muscle strength and tone normal. SPINE: No scoliosis or deformity SKIN: No rashes CENTRAL NERVOUS SYSTEM: Alert and oriented -3. No focal deficits, tone is normal in all 4 extremities. PSYCHIATRIC: Alert and oriented -3. Appropriate affect. Intact judgment and insight. - Labs CBC & Chem 7: 02/01/18 13:00 02/06/18 06:46 Labs: Abnormal Lab Results - Last 24 Hours (Table) 02/05/18 02/05/18 02/06/18 Range/Units 17:07 21:07 06:19 Chloride (98-107) mmol/L Carbon Dioxide (22-30) mmol/L BUN (9-20) mg/dL Creatinine (0.66-1.25) mg/dL Glucose (74-99) mg/dL POC Glucose (mg/dL) 196 H 184 H 159 H (75-99) mg/dL Magnesium (1.6-2.3) mg/dL 02/06/18 02/06/18 Range/Units 06:46 11:54 Chloride 97 L (98-107) mmol/L Carbon Dioxide 31 H (22-30) mmol/L BUN 59 H (9-20) mg/dL Creatinine 2.36 H (0.66-1.25) mg/dL Glucose 162 H (74-99) mg/dL POC Glucose (mg/dL) 238 H (75-99) mg/dL Magnesium 2.4 H (1.6-2.3) mg/dL Assessment and Plan Plan: Assessment: #1. Acute on chronic exacerbation of diastolic congestive heart failure #2. Dyspnea, orthopnea, weight gain related to the above #3. History of coronary artery disease, patient has not undergone coronary artery bypass grafting #4. Carotid artery stenosis, status post carotid endarterectomy and postoperative cardiac arrest #5. Diabetes mellitus type 2, on insulin drip, with peripheral neuropathy #6. Hypertension #7. Hyperlipidemia #8. History of atrial fibrillation on Pradaxa, status post cardioversion and ablation #9. History of CVA in May 2017 #10. Morbid obesity #11. Mild obstructive sleep apnea with AHI index of 10.7, patient is on BiPAP therapy with pressures of 20/15 cm of water #12. Chronic kidney disease stage II #13. Benign prostatic hypertrophy Plan: Continue diuretics, nephrology is managing the diuretics. Patient is in negative balance, he is down 11.8 kg since admission, still has some residual lower extremity edema. But overall feeling and breathing easier. Patient will need follow-up in the outpatient setting with Dr. Kinney for pulmonary clearance for bypass surgery. Continue with nebulized bronchodilators, Pulmicort and Perforomist, BiPAP support on his home settings. He stable from pulmonary perspective, we will see on the as-needed basis. I performed a history & physical examination of the patient and discussed their management with my nurse practitioner, Pushpa Maki. I reviewed the nurse practitioner's note and agree with the documented findings and plan of care. Lung sounds are positive for diminished at the bases. The findings and the impression was discussed with the patient. I attest to the documentation by the nurse practitioner. Time with Patient: Less than 30
[2018-02-06 16:43] LABS: Glucose,Whole Blood 182 mg/dL (75-99)
[2018-02-06 21:13] LABS: Glucose,Whole Blood 221 mg/dL (75-99)
[2018-02-06] MEDS: PRAVASTATIN SODIUM 80 MG TAB PO SCH (22:45)
[2018-02-07] MEDS: ACETAMINOPHEN TAB 500 MG TAB PO PRN ×3 (05:15→19:47)
--- NOTE | 2018-02-07 05:26 | PN ---
PROGRESS NOTE Mr. Mitchell is a 77-year-old gentleman who was admitted with increasing weight gain, dyspnea, hypoxia and acute exacerbation of the chronic diastolic heart failure. The patient is feeling better. No respiratory distress is noted. He is sitting up in a chair. The patient denies any orthopnea or PND and has remained hemodynamically stable. Patient's blood pressure is 144/63 mmHg, heart rate is 51 per minute, respiratory rate is 18, oxygen saturation is 94%. Patient's chest x-ray was reviewed. Electrolytes are normal. BUN is 69, creatinine is 2.36. ASSESSMENT AND PLAN: 1. Acute on chronic diastolic heart failure. 2. History of possible sleep apnea and COPD. 3. Hypertension. 4. Diabetes. We will continue the patient on current medications. Patient also has evidence of renal failure. Nephrology is following. MMODL / IJN: [id number] /
[2018-02-07 06:43] LABS: Glucose,Whole Blood 180 mg/dL (75-99)
[2018-02-07] MEDS: INSULIN ASPART 100 UNIT/ML 1 ML 10 ML VIAL SQ SCH ×4 (06:54→20:56)
[2018-02-07] MEDS: CARVEDILOL 6.25 MG TAB PO SCH ×2 (06:54→17:35)
[2018-02-07 06:59] LABS: Calcium 8.7 mg/dL (8.4-10.2); Magnesium 2.4 mg/dL (1.6-2.3); Potassium 3.8 mmol/L (3.5-5.1)
[2018-02-07] MEDS: BUDESONIDE 1 MG/2 ML NEBU INHALATION SCH ×2 (07:44→19:25)
[2018-02-07] MEDS: FORMOTEROL FUMARATE 20 MCG/2 ML NEBU INHALATION SCH ×2 (07:44→19:25)
[2018-02-07] MEDS: TORSEMIDE 20 MG TAB PO SCH (08:42)
[2018-02-07] MEDS: TAMSULOSIN 0.4 MG CAP.ER.24H PO SCH ×2 (08:43→19:47)
[2018-02-07] MEDS: FAMOTIDINE 20 MG TAB PO SCH (08:43)
[2018-02-07] MEDS: DABIGATRAN 75 MG CAP PO SCH ×2 (08:43→19:47)
[2018-02-07] MEDS: METOLAZONE 2.5 MG TAB PO SCH (08:43)
[2018-02-07] MEDS: amLODIPine 5 MG TAB PO SCH (08:43)
[2018-02-07] MEDS: DOCUSATE 100 MG CAP PO SCH ×2 (08:44→19:47)
[2018-02-07] MEDS: ASPIRIN 81 MG PO SCH (08:44)
[2018-02-07] MEDS: PREGABALIN 100 MG CAP PO SCH ×2 (08:44→19:47)
[2018-02-07] MEDS: AMIODARONE 200 MG TAB PO SCH (08:44)
[2018-02-07] MEDS: ISOSORBIDE MONONITRATE ER 30 MG TAB.ER.24H PO SCH (08:44)
[2018-02-07 12:08] LABS: Glucose,Whole Blood 213 mg/dL (75-99)
--- NOTE | 2018-02-07 13:39 | P.PN ---
Subjective Progress Note Date: 02/07/18 Principal diagnosis: This is a 69-year-old male with chronic kidney disease with fluctuating creatinine doesn't outpatient came in because of worsening edema shortness of breath and has responded well to IV Lasix. He was initially on IV Lasix drip was changed to IV Lasix every 12. Continues to have good urine output and has been feeling much better and states his feels the best in 1 year. Cr going up with diuresis, edema better Is able to walk without any dizziness. Minimal cough good appetite. He is known with diabetes, atrial fibrillation, myocardial infarction sleep apnea. In the past his creatinine has been as high as 4 Objective - Vital Signs Vital signs: Vital Signs Temp 97.4 F L 02/07/18 08:50 Pulse 53 L 02/07/18 11:53 Resp 20 02/07/18 11:53 BP 123/55 02/07/18 11:51 Pulse Ox 92 L 02/07/18 11:51 Intake & Output 02/06/18 02/07/18 02/07/18 18:59 06:59 18:59 Intake Total 560 340 Output Total 550 1325 675 Balance 10 -1325 -335 Weight 123.3 kg Intake: Oral 560 340 Output: Urine 550 1325 675 Other: Voiding Method Urinal Urinal Urinal # Voids 1 1 1 On examination is awake alert oriented cheerful Was able to a walk-in no hard day. HEENT exam, no JVP neck is supple no facial asymmetry Lungs are clear to auscultation fair air entry bilaterally Heart sounds are unremarkable for any murmur rub gallop Abdomen is obese non-tender no masses felt Extremity exam reveals mild/moderate edema. Neurologically awake alert oriented. He wants to go home - Labs CBC & Chem 7: 02/01/18 13:00 02/07/18 06:12 Labs: Abnormal Lab Results - Last 24 Hours (Table) 02/06/18 02/06/18 02/07/18 Range/Units 16:42 21:06 06:12 Chloride 95 L (98-107) mmol/L Carbon Dioxide 32 H (22-30) mmol/L BUN 64 H (9-20) mg/dL Creatinine 2.53 H (0.66-1.25) mg/dL Glucose 158 H (74-99) mg/dL POC Glucose (mg/dL) 182 H 221 H (75-99) mg/dL Magnesium 2.4 H (1.6-2.3) mg/dL 02/07/18 02/07/18 Range/Units 06:27 12:06 Chloride (98-107) mmol/L Carbon Dioxide (22-30) mmol/L BUN (9-20) mg/dL Creatinine (0.66-1.25) mg/dL Glucose (74-99) mg/dL POC Glucose (mg/dL) 180 H 213 H (75-99) mg/dL Magnesium (1.6-2.3) mg/dL Assessment and Plan Plan: Assessment: 1. Nonoliguric acute kidney injury mostly prerenal secondary to cardiorenal syndrome. Creatinine continues to go up to 2. 53 this morning . Urinalysis is benign. Patient is feeling significantly improved with the best he has felt in about a year regarding his shortness of breath. 2. Chronic kidney disease stage III. Baseline creatinine in the range of 1.3- 1.4 earlier this year on 05/21/2017 but more lately his creatinine has been in the 1.7 on 11/19/2017. He was creatinine has been 4.2 dated 11/08/2017 3. Volume overload. Significantly improved 4. Diastolic CHF. 5. Hypertension with chronic kidney disease. Controlled. Plan: 1. Will reduce to torsemide to 40 mg a day. 2. Maintain Low-salt diet. 3. 1.5 L fluid restriction. 4. Avoid nephrotoxic agents. 5. Patient has history of hyperkalemia and follows a strict low potassium diet. Avoid drugs that will raise potassium. 6. He could be discharged and follow-up in office in 2 or 3 days with blood pressure walks and made records on a daily basis
--- NOTE | 2018-02-07 13:59 | P.PN ---
Subjective 77-year-old male with a past medical history significant for atrial fibrillation, diabetes, hyperlipidemia, and chronic kidney disease, who presented to the emergency room after he was evaluated outpatient by his inter com servicer. The patient reported he has gained about 15 pounds in the last 10 days or so, increased shortness of breath, and increased swelling to his bilateral extremities. His inter com servicer recommended he come to the ER for further evaluation. He denies chest pain or pressure. Denies nausea or vomiting. Denies fever or chills. The patient reports his PCP, Dr. Mckenzie has been managing his diuretic dose on an outpatient basis. The patient was taking 40 mg in the morning and in the afternoon. He states recently his regimen was changed to 80 mg in the morning and 40 mg in the evening alternating every other day with 40mg in the morning and 40mg in the evening. Chest x-ray completed in the emergency room reveals patchy bilateral infiltrates with tiny right effusion. Underlying venous congestion not excluded. Laboratory data upon admission reveals white count 7.9. Hemoglobin 10.1. Platelet count 177. Sodium 144. Potassium 4.8. BUN 36. Creatinine 1.92. BNP 926. Most recent echocardiogram was performed in November 2017 which revealed ejection fraction between 50 and 55%, mild mitral regurgitation and mild tricuspid regurgitation. The patient was started on a lasix drip at 10mg/hour and admitted to the hospital under the care of Dr. Corona. Consultations were placed to cardiology and nephrology. 02/03/2018 Patient examined at the bedside with Dr. Corona. Patient states his breathing has improved. He remains on lasix drip at 10mg/hr. Patient reports he is urinating frequently. Weight is down to 131.5 from 134.3. Repeat echo reveals EF 55-60%. Denies chest pain or pressure. Denies nausea or vomiting. Patient reports he ambulated about 40 feet in the hallway today. 02/04/2018 Patient examined at the bedside. Denies shortness breath. Denies chest pain. Patient reports he is still voiding recurrently. His weight continues to trend downward. patient reports he and related in the hallway without shortness of breath. Denies nausea or vomiting. Tolerating oral intake. 02/05/2018 Patient examined at the bedside. Patient was chest working with physical therapy and ambulated down the hallway independently. He denies shortness of breath or chest pain. His Lasix drip was discontinued this morning and he was placed on Lasix 60 mg IV twice daily. Creatinine today is 2.37. His weight continues to trend downward. Lower extremity edema is significantly improved. His scrotal edema is also significantly improved today. Vital signs remain stable. He is anticipating discharge home this weekend. 02/06/2018 Patient is down another 1.5 kg. He is currently on Lasix 60 mg IV push twice a day, along with Zaroxolyn orally. Creatinine is roughly the same at 2.36 today. He denies any chest pains, pressures, or shortness of breath at this time. He is ambulating much better previously he reports the swelling to his scrotum and legs much improved. Nephrology and cardiology consult. He is now ambulating the rocha without difficulty. He remains on Pradaxa for anticoagulation 02/07/2018: Patient has gained 1.5 kg overnight. He was put on torsemide 80 mg orally and continues on Zaroxolyn. He indicates he hasn't urinated nearly as much recently. He feels a little more tired at this time. Although he does deny any significant chest pains, pressures, or shortness of breath. He is ambulating with a walker in the hallway. His is at bedside today. Objective - Vital Signs Vital signs: Vital Signs Temp 97.4 F L 02/07/18 08:50 Pulse 53 L 02/07/18 11:53 Resp 20 02/07/18 11:53 BP 123/55 02/07/18 11:51 Pulse Ox 92 L 02/07/18 11:51 Intake & Output 02/06/18 02/07/18 02/07/18 18:59 06:59 18:59 Intake Total 560 340 Output Total 550 1325 675 Balance 10 -1325 -335 Weight 123.3 kg Intake: Oral 560 340 Output: Urine 550 1325 675 Other: Voiding Method Urinal Urinal Urinal # Voids 1 1 1 - Exam GENERAL: This is a 77-year-old male in no apparent distress at the time of examination. Pleasant and cooperative. Neck :supple. RESPIRATORY: Diminished. No wheezing noted. No use of accessory muscles. Patient maintaining oxygen saturation greater than 92%. No chest wall tenderness is noted on palpation or with deep breathing. This is improved from several days ago. CARDIOVASCULAR: Regular rate and rhythm. S1 and S2 noted. No JVD noted. No S3 or S4 noted. GASTROINTESTINAL: No distention noted. Abdomen soft and round. Normal active bowel sounds auscultated x 4 quadrants. No pain or tenderness noted upon palpation. INTEGUMENTARY: No cyanosis. No jaundice. No rashes noted. No cellulitis noted. EXTREMITIES: 2+ peripheral pulses. +1 bilateral LE edema. Scrotal edema noted, improved from yesterday. No calf tenderness noted. NEUROLOGIC: Cranial nerves II-XII intact. PSYCHIATRIC: Awake, alert, and oriented X 3. Appropriate affect. Intact judgement and insight. - Labs CBC & Chem 7: 02/01/18 13:00 02/07/18 06:12 Labs: Abnormal Lab Results - Last 24 Hours (Table) 02/06/18 02/06/18 02/07/18 Range/Units 16:42 21:06 06:12 Chloride 95 L (98-107) mmol/L Carbon Dioxide 32 H (22-30) mmol/L BUN 64 H (9-20) mg/dL Creatinine 2.53 H (0.66-1.25) mg/dL Glucose 158 H (74-99) mg/dL POC Glucose (mg/dL) 182 H 221 H (75-99) mg/dL Magnesium 2.4 H (1.6-2.3) mg/dL 02/07/18 02/07/18 Range/Units 06:27 12:06 Chloride (98-107) mmol/L Carbon Dioxide (22-30) mmol/L BUN (9-20) mg/dL Creatinine (0.66-1.25) mg/dL Glucose (74-99) mg/dL POC Glucose (mg/dL) 180 H 213 H (75-99) mg/dL Magnesium (1.6-2.3) mg/dL Assessment and Plan Plan: ASSESSMENT: -Acute exacerbation of diastolic congestive heart failure, echo from 11/2017 reveals EF 50-55%, repeat echonow shows 55-60%. 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 Appreciate recommendations and input Torsemide 80 mg daily and oral Zaroxolyn 2.5 mg daily Daily weights Accurate I&O Encourage ambulation Continue elevation of bilateral lower extremities and scrotum Continue with Novolog sliding scale ACHS and accuchecks ACHS Home meds as appropriate Monitor labs GI prophylaxis: Pepcid 20mg daily DVT prophylaxis: Pradaxa 75mg BID Monitor vital signs and address as appropriate Discharge planning: Patient to return home when stable Further recommendations pending patient's course Anticipate discharge home in 24 hours, depending on recommendations from nephrology and cardiology.
--- NOTE | 2018-02-07 15:10 | PN ---
PROGRESS NOTE This patient was admitted with acute respiratory distress and acute on chronic diastolic heart failure with predominantly marked increase in the swelling in the legs. The patient is doing better. Denies any orthopnea or PND. The patient's heart rate is 53, blood pressure is 153/55 mmHg. First and second heart sounds are normal. Lungs are clinically clear to auscultation and percussion. The patient's creatinine is 2.53. We will continue the patient on current medications. MMODL / IJN: [id number] /
[2018-02-07 16:36] LABS: Glucose,Whole Blood 151 mg/dL (75-99)
[2018-02-07] MEDS: ALBUTEROL NEBULIZED 2.5 MG/3 ML INHALATION PRN (19:25)
[2018-02-07] MEDS: PRAVASTATIN SODIUM 80 MG TAB PO SCH (19:47)
[2018-02-07 20:19] LABS: Glucose,Whole Blood 219 mg/dL (75-99)
[2018-02-07] MEDS: traMADol 50 MG TAB PO PRN (22:35)
[2018-02-07 23:15] VITALS: RESP 18
[2018-02-08 05:51] LABS: Glucose,Whole Blood 204 mg/dL (75-99)
[2018-02-08] MEDS: INSULIN ASPART 100 UNIT/ML 1 ML 10 ML VIAL SQ SCH ×2 (06:41→12:23)
[2018-02-08 07:56] LABS: Calcium 8.9 mg/dL (8.4-10.2)
[2018-02-08] MEDS: BUDESONIDE 1 MG/2 ML NEBU INHALATION SCH (08:04)
[2018-02-08] MEDS: FORMOTEROL FUMARATE 20 MCG/2 ML NEBU INHALATION SCH (08:04)
[2018-02-08] MEDS: ALBUTEROL NEBULIZED 2.5 MG/3 ML INHALATION PRN (08:04)
[2018-02-08] MEDS: DOCUSATE 100 MG CAP PO SCH (08:43)
[2018-02-08] MEDS: FAMOTIDINE 20 MG TAB PO SCH (08:43)
[2018-02-08] MEDS: ASPIRIN 81 MG PO SCH (08:43)
[2018-02-08] MEDS: DABIGATRAN 75 MG CAP PO SCH (08:43)
[2018-02-08] MEDS: AMIODARONE 200 MG TAB PO SCH (08:43)
[2018-02-08] MEDS: TAMSULOSIN 0.4 MG CAP.ER.24H PO SCH (08:43)
[2018-02-08] MEDS: PREGABALIN 100 MG CAP PO SCH (08:43)
[2018-02-08] MEDS: amLODIPine 5 MG TAB PO SCH (08:44)
[2018-02-08] MEDS: ACETAMINOPHEN TAB 500 MG TAB PO PRN (08:44)
[2018-02-08] MEDS: TORSEMIDE 20 MG TAB PO SCH (08:44)
[2018-02-08] MEDS: ISOSORBIDE MONONITRATE ER 30 MG TAB.ER.24H PO SCH (08:44)
[2018-02-08] MEDS: CARVEDILOL 6.25 MG TAB PO SCH (08:44)
[2018-02-08] MEDS: METOLAZONE 2.5 MG TAB PO SCH (08:44)
[2018-02-08 09:06] VITALS: TEMP 98.6
[2018-02-08 12:24] LABS: Glucose,Whole Blood 300 mg/dL (75-99)
[2018-02-08 12:25] VITALS: BP 123/66; PULSE 53
--- NOTE | 2018-02-08 13:44 | P.DS ---
Providers Date of admission: 02/01/18 14:20 Expected date of discharge: 02/08/18 Attending physician: Paddy Corona Consults: 02/01/18 14:21 Consult Physician Routine Consulting Provider: Tom Gonsales Consult Reason/Comments: Fluid overload Do you want consulting provider notified?: Yes Consult Physician Routine Consulting Provider: Denise Peter Consult Reason/Comments: Fluid overload Do you want consulting provider notified?: Yes 02/04/18 13:09 Consult Physician Routine Consulting Provider: Toño Kinney Consult Reason/Comments: sob Do you want consulting provider notified?: Yes Primary care physician: [facility] Course: 77-year-old male with a past medical history significant for atrial fibrillation, diabetes, hyperlipidemia, and chronic kidney disease, who presented to the emergency room after he was evaluated outpatient by his mobile manager. The patient reported he has gained about 15 pounds in the last 10 days or so, increased shortness of breath, and increased swelling to his bilateral extremities. His mobile manager recommended he come to the ER for further evaluation. He denies chest pain or pressure. Denies nausea or vomiting. Denies fever or chills. The patient reports his PCP, Dr. Mckenzie has been managing his diuretic dose on an outpatient basis. The patient was taking 40 mg in the morning and in the afternoon. He states recently his regimen was changed to 80 mg in the morning and 40 mg in the evening alternating every other day with 40mg in the morning and 40mg in the evening. Chest x-ray completed in the emergency room reveals patchy bilateral infiltrates with tiny right effusion. Underlying venous congestion not excluded. Laboratory data upon admission reveals white count 7.9. Hemoglobin 10.1. Platelet count 177. Sodium 144. Potassium 4.8. BUN 36. Creatinine 1.92. BNP 926. Most recent echocardiogram was performed in November 2017 which revealed ejection fraction between 50 and 55%, mild mitral regurgitation and mild tricuspid regurgitation. The patient was started on a lasix drip at 10mg/hour and admitted to the hospital under the care of Dr. Corona. Consultations were placed to cardiology and nephrology. 02/03/2018 Patient examined at the bedside with Dr. Corona. Patient states his breathing has improved. He remains on lasix drip at 10mg/hr. Patient reports he is urinating frequently. Weight is down to 131.5 from 134.3. Repeat echo reveals EF 55-60%. Denies chest pain or pressure. Denies nausea or vomiting. Patient reports he ambulated about 40 feet in the hallway today. 02/04/2018 Patient examined at the bedside. Denies shortness breath. Denies chest pain. Patient reports he is still voiding recurrently. His weight continues to trend downward. patient reports he and related in the hallway without shortness of breath. Denies nausea or vomiting. Tolerating oral intake. 02/05/2018 Patient examined at the bedside. Patient was chest working with physical therapy and ambulated down the hallway independently. He denies shortness of breath or chest pain. His Lasix drip was discontinued this morning and he was placed on Lasix 60 mg IV twice daily. Creatinine today is 2.37. His weight continues to trend downward. Lower extremity edema is significantly improved. His scrotal edema is also significantly improved today. Vital signs remain stable. He is anticipating discharge home this weekend. 02/06/2018 Patient is down another 1.5 kg. He is currently on Lasix 60 mg IV push twice a day, along with Zaroxolyn orally. Creatinine is roughly the same at 2.36 today. He denies any chest pains, pressures, or shortness of breath at this time. He is ambulating much better previously he reports the swelling to his scrotum and legs much improved. Nephrology and cardiology consult. He is now ambulating the rocha without difficulty. He remains on Pradaxa for anticoagulation 02/07/2018: Patient has gained 1.5 kg overnight. He was put on torsemide 80 mg orally and continues on Zaroxolyn. He indicates he hasn't urinated nearly as much recently. He feels a little more tired at this time. Although he does deny any significant chest pains, pressures, or shortness of breath. He is ambulating with a walker in the hallway. His is at bedside today. 02/08/2018 Patient examined at the bedside. His weight continues to trend downward. Creatinine is 2.6 today. He remains on Demadex and Zaroxolyn. He is stable for discharge home today. DISCHARGE DIAGNOSIS: -Acute exacerbation of diastolic congestive heart failure, echo from 11/2017 reveals EF 50-55% -Chronic kidney disease, stage III -MIGUEL due to diuresis -Small right pleural effusion -Coronary artery disease with triple vessel disease, declining CABG at this time , recent cath revealed proximal RCA 70% stenosis, distal RCA 70% stenosis, circumflex 85% stenosis in proximal LAD 40-50% stenosis with a 90% lesion after the septal branch -Diabetes Mellitus, insulin dependent, utilizing insulin pump at home -Hyperlipidemia -Hypertension -Paroxysmal atrial fibrillation, on care home anticoagulation with Pradaxa -History of cardiac ablation, 2010 -History of cardioversion, 2013 -GERD -Osteoarthritis -Anemia of chronic disease -History of sleep apnea, patient utilizes CPAP machine -Carotid stenosis with history of right carotid endarterectomy with postoperative cardiac arrest and respiratory failure requiring intubation, April 2017 -History of CVA: right lacunar infarct, 05/2017 -Morbid obesity: BMI 43.7 Nurse practitioner note has been reviewed by physician. Signing provider agrees with the documented findings, assessment, and plan of care. Patient Condition at Discharge: Stable Plan - Discharge Summary Discharge Rx Participant: Yes New Discharge Prescriptions: New Acetaminophen Tab [Tylenol] 1,000 mg PO Q6HR PRN tab PRN Reason: Fever And/ Or Pain Metolazone [Zaroxolyn] 2.5 mg PO DAILY #30 tab Torsemide [Demadex] 80 mg PO DAILY #120 tab Continue Tamsulosin HCl [Flomax] 0.4 mg PO BID Aspirin [Adult Low Dose Aspirin EC] 81 mg PO DAILY traMADol HCL [Ultram] 50 mg PO Q8HR PRN PRN Reason: Pain Acetaminophen [Tylenol Arthritis] 1,300 mg PO Q12H PRN PRN Reason: Pain Zolpidem [Ambien] 5 - 10 mg PO HS PRN PRN Reason: Insomnia Nitroglycerin Sl Tabs [Nitrostat] 0.4 mg SUBLINGUAL Q5M PRN PRN Reason: Chest Pain Isosorbide Mononitrate [Isosorbide Mononitrate ER] 30 mg PO DAILY INSULIN LISPRO (For Pump) [humaLOG (For Pump)] 0.01 units SQ-PUMP CONTINUOUS amLODIPine BESYLATE [Norvasc] 5 mg PO DAILY #90 tablet Albuterol Inhaler [Ventolin Hfa Inhaler] 2 puff INHALATION RT-Q4H Amiodarone [Cordarone] 200 mg PO DAILY Budesonide/Formoterol Fumarate [Symbicort 160-4.5 Mcg Inhaler] 2 puff INHALATION RT-BID Carvedilol [Coreg] 6.25 mg PO BID-W/MEALS #60 tab Dabigatran [Pradaxa] 75 mg PO BID #60 cap Docusate [Colace] 100 mg PO BID cap Famotidine [Pepcid] 20 mg PO DAILY #0 tab Pravastatin Sodium [Pravachol] 80 mg PO HS #30 tab Pregabalin [Lyrica] 75 mg PO BID #60 cap Discontinued Furosemide [Lasix] 80 mg PO Q48H Furosemide [Lasix] 40 mg PO HS Furosemide [Lasix] 40 mg PO Q48H Discharge Medication List Tamsulosin HCl [Flomax] 0.4 mg PO BID 03/04/17 [History] Aspirin [Adult Low Dose Aspirin EC] 81 mg PO DAILY 04/27/17 [History] Acetaminophen [Tylenol Arthritis] 1,300 mg PO Q12H PRN 08/06/17 [History] INSULIN LISPRO (For Pump) [humaLOG (For Pump)] 0.01 units SQ-PUMP CONTINUOUS [History] Isosorbide Mononitrate [Isosorbide Mononitrate ER] 30 mg PO DAILY 08/06/17 [ History] Nitroglycerin Sl Tabs [Nitrostat] 0.4 mg SUBLINGUAL Q5M PRN 08/06/17 [History] Zolpidem [Ambien] 5 - 10 mg PO HS PRN 08/06/17 [History] traMADol HCL [Ultram] 50 mg PO Q8HR PRN 08/06/17 [History] amLODIPine BESYLATE [Norvasc] 5 mg PO DAILY #90 tablet 08/13/17 [Rx] Albuterol Inhaler [Ventolin Hfa Inhaler] 2 puff INHALATION RT-Q4H 10/26/17 [ History] Amiodarone [Cordarone] 200 mg PO DAILY 10/26/17 [History] Budesonide/Formoterol Fumarate [Symbicort 160-4.5 Mcg Inhaler] 2 puff INHALATION RT-BID 10/26/17 [History] Carvedilol [Coreg] 6.25 mg PO BID-W/MEALS #60 tab 11/16/17 [Rx] Dabigatran [Pradaxa] 75 mg PO BID #60 cap 11/16/17 [Rx] Docusate [Colace] 100 mg PO BID cap 11/16/17 [Rx] Famotidine [Pepcid] 20 mg PO DAILY #0 tab 11/16/17 [Rx] Pravastatin Sodium [Pravachol] 80 mg PO HS #30 tab 11/16/17 [Rx] Pregabalin [Lyrica] 75 mg PO BID #60 cap 11/16/17 [Rx] Acetaminophen Tab [Tylenol] 1,000 mg PO Q6HR PRN tab 02/08/18 [Rx] Metolazone [Zaroxolyn] 2.5 mg PO DAILY #30 tab 02/08/18 [Rx] Torsemide [Demadex] 80 mg PO DAILY #120 tab 02/08/18 [Rx] Follow up Appointment(s)/Referral(s): Denise Peter MD [STAFF PHYSICIAN] - 1 Week [facility], [NON-STAFF] - Patrick Mckenzie Jr, DO [Primary Care Provider] - 02/09/18 2:30 pm (Thursday) Toño Kinney DO [Doctor of Osteopathic Medicine] - 1 Week Activity/Diet/Wound Care/Special Instructions: Please make appointment for patient to see Dr. Mckenzie on THURSDAY Take Zaroxolyn 30 minutes prior to taking Demadex
--- NOTE | 2018-02-08 14:23 | P.PN ---
Subjective Progress Note Date: 02/08/18 This is a 77-year-old gentleman who follows regularly with Dr. Topete in the office. Patient has known history of coronary artery disease as as well as peripheral vascular disease and has had prior carotid endarterectomy. Patient underwent a cardiac catheterization and was found to have diffuse triple-vessel disease, he did go to see cardiothoracic surgery and was waiting for clearance from a pulmonary perspective. Patient also has history of chronic renal failure. History of CVA, diabetes, hypertension, hyperlipidemia, history of cardiac ablation and drainage for prior cardial effusion, morbid obesity. He presented to the hospital on this occasion with symptoms of progressively worsening shortness of breath and weight gain for a minimum of 2 weeks duration. He states it's been going on longer but for the past 2 weeks it's been progressively worse. Positive PND and orthopnea and significant weight gain. He does state that some adjustments have been made to his Lasix dose in his primary care doctor's office, and he also states that he' s been drinking a significant amount of fluids at home. Chest x-ray on admission here showed patchy bilateral infiltrate with tiny right sided effusion , underlying venous congestion. EKG on admission showed a sinus bradycardia with first-degree AV block, nonspecific ST-T wave changes. Echocardiogram with Doppler study was performed which revealed an ejection fraction of 55-60%. I pressure 142/60 with a heart rate in the 50s. Blood cell count 7.9, hemoglobin 10.1, platelet count 177. Sodium 144, potassium 4.8 , BUN 36, creatinine 1.9. Magnesium 2.4. Troponin 0.012. BNP level 926. Patient was initiated on IV Lasix drip in the emergency room. Diuresed approximately 4000 out through the night last night and his weight is down significantly today. He does state that he notices a significant difference in his edema however he still has considerable edema present. 02/03/2018 Patient was seen and examined this morning, weight is down another 3 kg, edema is significantly improved as well. Sodium 143, potassium 5.5, BUN 34, creatinine 1.9, magnesium 2.3. We will continue current dose of IV Lasix drip for another 24 hours, check lytes BUN and creatinine in the morning, continue to monitor daily weights. 02/04/2018 Patient was seen and examined this morning, weight is significantly down and can today. BUN 58, creatinine 2.07, magnesium 2.4, potassium 3.8. Patient continues to have significant edema in his bilateral lower extremities however also significantly improved from admission here. Lungs are essentially clear. Nephrology's recommendation is to continue current dose of IV Lasix drip. Continue to monitor intake and output along with daily weights and daily lytes BUN and creatinine. Patient does state that he's feeling better. 02/08/2018 Patient seen and examined this morning, overall doing significantly better. He is currently on oral diuretics and anticipating discharge home today. Hemodynamically he is stable. He will follow-up with Dr. Topete in the office in approximately one week. Prior to being discharged today we do recommend that he do a walk test with cardiac rehab. Objective - Vital Signs Vital signs: Vital Signs Temp 98.6 F 02/08/18 08:40 Pulse 53 L 02/08/18 12:20 Resp 18 02/08/18 12:20 BP 123/66 02/08/18 12:20 Pulse Ox 91 L 02/08/18 12:20 Intake & Output 02/07/18 02/08/18 02/08/18 18:59 06:59 18:59 Intake Total 642 240 Output Total 1800 925 300 Balance -1158 -925 -60 Weight 121.7 kg Intake: Oral 642 240 Output: Urine 1800 925 300 Other: Voiding Method Urinal Urinal Urinal # Voids 1 1 - Exam PHYSICAL EXAMINATION: GENERAL: 77-year-old gentleman in no acute distress at the time of my examination HEENT: Head is atraumatic, normocephalic. Pupils equal, round. Sclera anicteric. Conjunctiva are clear. Mucous membranes of the mouth are moist. Neck is supple. There is elevated jugular venous pressure. No carotid bruit is heard. HEART EXAMINATION: S1 and S2 systolic murmur is heard. CHEST EXAMINATION: Lungs reveal improvement in air entry to bilateral bases. ABDOMEN: Firm, obese, nontender. Bowel sounds are heard. No organomegaly noted. EXTREMITIES: 2+ peripheral pulses with trace to 1+ evidence of peripheral edema NEUROLOGIC patient is awake, alert and oriented 3. - Labs CBC & Chem 7: 02/01/18 13:00 02/08/18 07:18 Labs: Abnormal Lab Results - Last 24 Hours (Table) 02/07/18 02/07/18 02/08/18 Range/Units 16:33 20:17 05:50 Chloride (98-107) mmol/L Carbon Dioxide (22-30) mmol/L BUN (9-20) mg/dL Creatinine (0.66-1.25) mg/dL Glucose (74-99) mg/dL POC Glucose (mg/dL) 151 H 219 H 204 H (75-99) mg/dL 02/08/18 02/08/18 Range/Units 07:18 12:11 Chloride 94 L (98-107) mmol/L Carbon Dioxide 34 H (22-30) mmol/L BUN 68 H (9-20) mg/dL Creatinine 2.67 H (0.66-1.25) mg/dL Glucose 188 H (74-99) mg/dL POC Glucose (mg/dL) 300 H (75-99) mg/dL Assessment and Plan Plan: Assessment and plan #1 symptoms of shortness of breath with associated weight gain, likely secondary to acute exacerbation of diastolic congestive heart failure, right- sided ,acute on chronic, as well as cor pulmonale. We will continue current Lasix drip. #2 known history of coronary artery disease, patient had cardiac catheterization performed which revealed multivessel coronary artery disease, at this time patient has not yet undergone coronary bypass grafting surgery, awaiting clearance from pulmonary. #3 diabetes #4 hypertension #5 hyperlipidemia #6. Proximal atrial fibrillation, on Pradaxa for anticoagulation #7 history of cardiac ablation #8 GERD #9 acute on chronic renal failure #10 history of CVA #11 morbid obesity #12 PAD, status post carotid endarterectomy #13 sleep apnea Plan From cardiology's perspective, we'll recommend to continue the patient on his current medications. He may be able to be discharged home today, follow-up appointment with Dr. Topete in the office post discharge. DNP note has been reviewed, I agree with a documented findings and plan of care. Patient was seen and examined.
[2018-02-08 16:25] LABS: Glucose,Whole Blood 167 mg/dL (75-99)
--- NOTE | 2018-02-08 19:31 | PN ---
PROGRESS NOTE Patient is seen for followup for chronic kidney disease and acute kidney injury. Serum creatinine is slightly high at 2.6 from 2.5 yesterday. The patient is currently being diuresed. He states he is putting out a lot of urine. He is currently maintained on Zaroxolyn 2.5 mg daily and Demadex 80 mg p.o. daily. His weight is down to 121 kg. PHYSICAL EXAMINATION: This morning, blood pressure was 123/66, heart rate 53 per minute. Patient is afebrile. Examination of the heart S1, S2. Examination of lungs bilateral breath sounds are heard. Abdomen is soft, nontender. Examination of lower extremity shows chronic edema, currently improved. HEALTH AND SAFETY CONSULTANT exam is grossly intact. Patient is moving all 4 extremities. LABS: Sodium 140, potassium 4.0, BUN 68, serum creatinine 2.67. ASSESSMENT: Acute kidney injury, cardiorenal. Currently, serum creatinine is mildly elevated secondary to recent diuresis. I will decrease the dose of torsemide to 40 mg. He may continue with the 2.5 mg of Zaroxolyn daily and patient will need followup as outpatient in about 1-2 weeks. MMODL / IJN: [id number] /
[2018-02-09] MEDS ORDERED: TORSEMIDE 20 MG TAB PO SCH (09:00)
--- NOTE | 2018-02-10 14:51 | CDI ---
Last Revision, February 2017 Documentation Clarification Form Date: 02/10/18 From: CELIO Mccain Phone: If you have question, contact Kiley Hussein at [phone] M-F 8:30 am to 6pm Admit Date: 02/01/2018 2:20:00 PM Patient Name: Mo Mitchell Visit Number: [id number] Discharge Date: 02/08/18 ATTENTION: The Clinical Documentation Specialists (CDI) and [facility] Coding Staff appreciate your assistance in clarifying documentation. Please respond to the clarification below the line at the bottom and electronically sign. The CDI & [facility] Coding staff will review the response and follow-up if needed. Please note: Queries are made part of the Legal Health Record. If you have any questions, please contact the author of this message via ITS. Paddy Perez MD Conflicting documentation has been found in the medical record. Nephrology consultation and progress notes indicate that MIGUEL is mostly prerenal secondary to cardiorenal syndrome. The discharge summary and some other progress notes state the MIGUEL is secondary to diuresis. In your opinion what is the most clinically appropriate diagnosis for this patient? MIGUEL due to cardiorenal syndrome MIGUEL due to diuresis Other explanation of clinical findings Unable to determine (no explanation for clinical findings) MIGUEL DUE TO CARDIORENAL SYNDROME thanks! NELSON
== END 2018-02-08 16:26 | disposition home or self-care (01) | DRG 291 ==
LOC: EC 12:05 → 3SCARD 14:20
PROVIDERS: ADMIT Family Medicine; ATTEND Family Medicine
DX: I13.0 Hypertensive heart and chronic kidney disease with heart failure and stage 1 through stage 4 chronic kidney disease, or unspecified chronic kidney disease (principal); I50.33 Acute on chronic diastolic (congestive) heart failure; Z68.41 Body mass index [BMI] 40.0-44.9, adult; N17.9 Acute kidney failure, unspecified; E87.2 Acidosis; I50.813 Acute on chronic right heart failure; N18.3 Chronic kidney disease, stage 3 (moderate); D63.8 Anemia in other chronic diseases classified elsewhere; E11.22 Type 2 diabetes mellitus with diabetic chronic kidney disease; E11.42 Type 2 diabetes mellitus with diabetic polyneuropathy; E11.51 Type 2 diabetes mellitus with diabetic peripheral angiopathy without gangrene; G47.33 Obstructive sleep apnea (adult) (pediatric); Z99.89 Dependence on other enabling machines and devices; E66.01 Morbid (severe) obesity due to excess calories; I25.10 Atherosclerotic heart disease of native coronary artery without angina pectoris; I44.0 Atrioventricular block, first degree; I08.1 Rheumatic disorders of both mitral and tricuspid valves; I48.0 Paroxysmal atrial fibrillation; Z96.651 Presence of right artificial knee joint; Z96.643 Presence of artificial hip joint, bilateral; Z96.41 Presence of insulin pump (external) (internal); K21.9 Gastro-esophageal reflux disease without esophagitis; E78.5 Hyperlipidemia, unspecified; E87.5 Hyperkalemia; M10.9 Gout, unspecified; M19.90 Unspecified osteoarthritis, unspecified site; H35.30 Unspecified macular degeneration; J44.9 Chronic obstructive pulmonary disease, unspecified; N40.0 Benign prostatic hyperplasia without lower urinary tract symptoms; Z86.74 Personal history of sudden cardiac arrest; Z86.73 Personal history of transient ischemic attack (TIA), and cerebral infarction without residual deficits; Z79.899 Other long term (current) drug therapy; Z79.4 Long term (current) use of insulin; Z79.82 Long term (current) use of aspirin; Z79.01 Long term (current) use of anticoagulants; Z79.51 Long term (current) use of inhaled steroids; Z98.890 Other specified postprocedural states; Z98.811 Dental restoration status; I25.2 Old myocardial infarction; Z83.3 Family history of diabetes mellitus; Z82.49 Family history of ischemic heart disease and other diseases of the circulatory system; Z98.42 Cataract extraction status, left eye; Z98.41 Cataract extraction status, right eye
CPT/HCPCS: 36415; 71046; 80048; 80053; 81003; 82550; 82553; 83036; 83735; 83880; 84132; 84484; 85025; 85610; 85730; 93005; 93306; 94640; 94760; 96365; 99285

== ENCOUNTER → 2018-03-10 | Outpatient (CLI) | payer MEDICARE, BC ==
[2018-03-11 03:27] LABS: Albumin 4.4 g/dL (3.80-4.90); Anion Gap 10.7 mmol/L (4.00-12.00); Calcium 8.7 mg/dL (8.7-10.3); Carbon Dioxide 25.3 mmol/L (21.6-31.8); Potassium 4.7 mmol/L (3.5-5.5)
== END | disposition home or self-care (01) ==
LOC: LABWHC1 15:34
PROVIDERS: ATTEND Nurse Practitioner Family
DX: N18.3 Chronic kidney disease, stage 3 (moderate) (principal)
CPT/HCPCS: 36415; 80069

== ENCOUNTER → 2018-05-04 | Outpatient (CLI) | payer MEDICARE, BC ==
--- NOTE | 2018-05-05 07:31 | XR ---
EXAMINATION TYPE: XR foot complete RT DATE OF EXAM: 05/04/2018 COMPARISON: NONE HISTORY: Pain TECHNIQUE: Three views are submitted. FINDINGS: The osseous structures are intact. There is no acute fracture or dislocation. Diffuse arthropathy of all DIP, PIP and first MTP joint. Arthropathy of the tarsometatarsal junction. Vascular calcificat ion noted. Calcaneal spurs are seen and there are vascular calcifications. No destructive changes. IMPRESSION: 1. Severe arthropathy.
== END | disposition home or self-care (01) ==
LOC: RADXRMAIN 15:49
PROVIDERS: ATTEND Family Medicine
DX: M19.071 Primary osteoarthritis, right ankle and foot (principal)

== ENCOUNTER 2019-04-21 16:06 | Emergency (ER) | payer MEDICARE, BC ==
[2019-04-21 16:34] VITALS: RESP 18; TEMP 98.2
[2019-04-21 16:44] LABS: Glucose,Whole Blood 116 mg/dL (75-99)
[2019-04-21 18:22] LABS: Basophils # (A) 0.2 k/uL (0-0.2); Basophils % (A) 2 %; Eosinophils # (A) 0.1 k/uL (0-0.7); Eosinophils % (A) 1 %; HCT 32.8 % (39.0-53.0); HGB 10.5 gm/dL (13.0-17.5); Hypochromasia Slight; Lymphocytes # (A) 0.5 k/uL (1.0-4.8); Lymphocytes % (A) 5 %; MCH 34.4 pg (25.0-35.0); MCV 107.6 fL (80.0-100.0); Macrocytosis Marked; Mean Platelet Volume 9.9; Monocytes # (A) 0.6 k/uL (0-1.0); Monocytes % (A) 6 %; Neutrophils # (A) 7.6 k/uL (1.3-7.7); Neutrophils % (A) 83 %; Platelet Count 219 k/uL (150-450); RBC 3.05 m/uL (4.30-5.90); RDW 15.6 % (11.5-15.5); WBC 9.2 k/uL (3.8-10.6)
[2019-04-21 18:30] LABS: Albumin 4.5 g/dL (3.5-5.0); Calcium 8.5 mg/dL (8.4-10.2); Magnesium 2.2 mg/dL (1.6-2.3); Phosphorus 4.8 mg/dL (2.5-4.5); Potassium 4.9 mmol/L (3.5-5.1); Total Bilirubin 0.4 mg/dL (0.2-1.3); Total Protein 7.9 g/dL (6.3-8.2)
--- NOTE | 2019-04-21 19:01 | ED ---
General Adult HPI - General Chief complaint: Recheck/Abnormal Lab/Rx Stated complaint: hypotension Time Seen by Provider: 04/21/19 16:15 Source: patient, family, RN notes reviewed, old records reviewed Mode of arrival: EMS Limitations: physical limitation - History of Present Illness Initial comments: 78-year-old male patient with extensive past history including hemodialysis. Reports ED for chief complaint of hypotension, hypoglycemia at dialysis earlier today. Patient reports he also having muscle spasms. Patient was sent over from the dialysis clinic for evaluation. Patient reports that he has had this in the past and did take midodrine. Denies any acute complaints at time of evaluation. Systemic: Pt denies fatigue, fever/chills, rash. Pt denies weakness, night sweats, weight loss. Neuro: Pt denies headache, visual disturbances, syncope or pre-syncope. HEENT: Pt denies ocular discharge or irritation, otalgia, rhinorrhea, pharyngitis or notable lymphadenopathy. Cardiopulmonary: Pt denies chest pain, SOB, heart palpitations, dyspnea on exertion. Abdominal/GI: Pt denies abdominal pain, n/v/d. : Pt denies dysuria, burning w/ urination, frequency/urgency. Denies new onset urinary or bowel incontinence. MSK: Pt denies myalgia, loss of strength or function in extremities. Neuro: Pt denies new onset weakness, paresthesias. - Related Data Home Medications Medication Instructions Recorded Confirmed Aspirin [Adult Low Dose Aspirin EC] 81 mg PO DAILY 04/27/17 04/14/18 Acetaminophen [Tylenol Arthritis] 1,300 mg PO Q12H PRN 08/06/17 04/14/18 INSULIN LISPRO (For Pump) [humaLOG 0.01 units SQ-PUMP CONTINUOUS 08/06/17 04/14/18 (For Pump)] Isosorbide Mononitrate [Isosorbide 30 mg PO DAILY 08/06/17 04/14/18 Mononitrate ER] Nitroglycerin Sl Tabs [Nitrostat] 0.4 mg SUBLINGUAL Q5M PRN 08/06/17 04/14/18 Zolpidem [Ambien] 5 - 10 mg PO HS PRN 08/06/17 04/14/18 traMADol HCL [Ultram] 50 mg PO Q8HR PRN 08/06/17 04/14/18 Albuterol Inhaler [Ventolin Hfa 2 puff INHALATION RT-Q4H 10/26/17 04/14/18 Inhaler] Amiodarone [Cordarone] 200 mg PO DAILY 10/26/17 04/14/18 Budesonide/Formoterol Fumarate 2 puff INHALATION RT-BID 10/26/17 04/14/18 [Symbicort 160-4.5 Mcg Inhaler] Allopurinol [Zyloprim] 200 mg PO DAILY 04/08/18 04/14/18 Calcitriol 0.5 mcg PO DAILY 04/08/18 04/14/18 Calcium Acetate [Phoslo] 667 mg PO BID 04/08/18 04/14/18 Ergocalciferol (Vitamin D2) 50,000 unit PO WEEKLY 04/08/18 04/14/18 [Drisdol] Rivaroxaban [Xarelto] 20 mg PO DAILY 04/08/18 04/14/18 Previous Rx's Medication Instructions Recorded amLODIPine BESYLATE [Norvasc] 5 mg PO DAILY #90 tablet 08/13/17 Docusate [Colace] 100 mg PO BID cap 11/16/17 Famotidine [Pepcid] 20 mg PO DAILY #0 tab 11/16/17 Pravastatin Sodium [Pravachol] 80 mg PO HS #30 tab 11/16/17 Pregabalin [Lyrica] 75 mg PO BID #60 cap 11/16/17 Metolazone [Zaroxolyn] 2.5 mg PO DAILY #30 tab 02/08/18 Torsemide [Demadex] 80 mg PO DAILY #120 tab 02/08/18 Allergies Allergy/AdvReac Type Severity Reaction Status Date / Time No Known Allergies Allergy Verified 04/21/19 16:35 Review of Systems ROS Statement: Those systems with pertinent positive or pertinent negative responses have been documented in the HPI. ROS Other: All systems not noted in ROS Statement are negative. 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, hx pericardial effusion, macular degeneration left eye-gets injections"has never been told if he ever had chf in past" Last Myocardial Infarction Date:: 05/08/17 History of Any Multi-Drug Resistant Organisms: None Reported Past Surgical History: Cardiac Ablation, Joint Replacement, Orthopedic Surgery, Tonsillectomy Additional Past Surgical History / Comment(s): carpal tunnel rt wrist, rt knee replacement, shaka hip replacement, drainage for pericaridal effusion, cardioversion x 2, arthroscopy shaka knees, rt carotid endarterectomy, trigger finger shaka hands, shaka cataracts, "had a dialysis cath inserted in nov 2017 only had 2 treatments-cath since removed" Past Anesthesia/Blood Transfusion Reactions: No Reported Reaction Past Psychological History: No Psychological Hx Reported Smoking Status: Never smoker - Past Family History Mother Family Medical History: Diabetes Mellitus, Hyperlipidemia, Hypertension, Myocardial Infarction ([place]) Daughter(s) Family Medical History: Cancer Father Additional Family Medical History / Comment(s): alcoholic General Exam - General Exam Comments Initial Comments: Constitutional: NAD, AOX3, Pt has pleasant affect. HEENT: NC/AT, trachea midline, neck supple, no lymphadenopathy. Posterior pharynx non erythematous, without exudates. External ears appear normal, without discharge. Mucous membranes moist. Eyes PERRLA, EOM intact. There is no scleral icterus. No pallor noted. Cardiopulmonary: RRR, no murmurs, rubs or gallops, no JVD noted. Lungs CTAB in anterior and posterior miner. No peripheral edema. Abdominal exam: Abdomen soft and non-distended. Abdomen non-tender to palpation in all 4 quadrants. Bowel sounds active in LLQ. No hepatosplenomegaly. No ecchymosis Neuro: CN II-XII intact. No nuchal rigidity. No raccon eyes, no quintero sign, no hemotympanum. No cervical spinal tenderness. MSK: No posterior calf tenderness bilaterally, homans sign negative bilaterally. Posterior tibialis and radial pulse +2 bilaterally. Sensation intact in upper and lower extremities. Full active ROM in upper and lower extremities, 5/5 stregnth. Limitations: physical limitation Course Vital Signs 04/21/19 16:29 Temperature 98.2 F Pulse Rate 64 Respiratory 18 Rate Blood Pressure 118/56 O2 Sat by Pulse 98 Oximetry Medical Decision Making - Medical Decision Making 78-year-old male patient with extensive past history including hemodialysis. Reports ED for chief complaint of hypotension, hypoglycemia at dialysis earlier today. Patient reports he also having muscle spasms. Patient was sent over from the dialysis clinic for evaluation. Patient reports that he has had this in the past and did take midodrine. Denies any acute complaints at time of evaluation. Patient blood pressure 118/56. Physical exam this did not display acute pathology. EKG unchanged from prior, nonischemic. Patient initially declined any laboratory investigations was requesting discharge. The patient was ready to be discharged, however he had a change of heart wishes to have labs drawn. CBC CMP were obtained. Hemoglobin of 10.5 at baseline. Mild hyponatremia of 133. Mildly elevated phosphorus of 4.8. Patient continues to remain asymptomatic. Patient will be discharged to follow up with primary care provider and have dialysis tomorrow. Return to ER if condition worsens. Case discussed with Dr. Ruiz. - Lab Data Result diagrams: 04/21/19 17:50 04/21/19 17:50 Lab Results 04/21/19 04/21/19 04/21/19 Range/Units 16:41 17:50 17:50 WBC 9.2 (3.8-10.6) k/uL RBC 3.05 L (4.30-5.90) m/uL Hgb 10.5 L (13.0-17.5) gm/dL Hct 32.8 L (39.0-53.0) % MCV 107.6 H (80.0-100.0) fL MCH 34.4 (25.0-35.0) pg MCHC 32.0 (31.0-37.0) g/dL RDW 15.6 H (11.5-15.5) % Plt Count 219 (150-450) k/uL Hypochromasia Slight Macrocytosis Marked A Sodium 133 L (137-145) mmol/L Potassium 4.9 (3.5-5.1) mmol/L Chloride 91 L (98-107) mmol/L Carbon Dioxide 30 (22-30) mmol/L Anion Gap 12 mmol/L BUN 35 H (9-20) mg/dL Creatinine 3.50 H (0.66-1.25) mg/dL Est GFR (CKD-EPI)AfAm 18 (>60 ml/min/1.73 sqM) Est GFR (CKD-EPI)NonAf 16 (>60 ml/min/1.73 sqM) Glucose 177 H (74-99) mg/dL POC Glucose (mg/dL) 116 H (75-99) mg/dL POC Glu Reference Services Head ID Shanita Stephenson Calcium 8.5 (8.4-10.2) mg/dL Phosphorus 4.8 H (2.5-4.5) mg/dL Magnesium 2.2 (1.6-2.3) mg/dL Total Bilirubin 0.4 (0.2-1.3) mg/dL AST 24 (17-59) U/L ALT 13 (4-49) U/L Alkaline Phosphatase 84 (38-126) U/L Total Protein 7.9 (6.3-8.2) g/dL Albumin 4.5 (3.5-5.0) g/dL - EKG Data -: EKG Interpreted by Me (and Dr. Ruiz) EKG Comments: Ventricular rate 64, painful to 18, QRS 96, QT/QTc 416 since 429. Sensory thumb with brisk AV block. ST-T wave abnormality. No significant change from prior. No concern for acute ischemia. Disposition Clinical Impression: Hypotension Disposition: HOME SELF-CARE Condition: Stable Instructions (If sedation given, give patient instructions): Hypotension (ED), Dialysis Diet (DC) Additional Instructions: Follow-up with primary care provider tomorrow. Attend scheduled dialysis treatment for tomorrow. Return to ER if condition worsens in any way. Is patient prescribed a controlled substance at d/c from ED?: No Referrals: Patrick Mckenzie Jr, [Primary Care Provider] - 1-2 days
[2019-04-21 19:43] VITALS: BP 109/80; PULSE 74
[2019-04-21 19:58] LABS: Polychromasia Present
== END 2019-04-21 19:46 | disposition home or self-care (01) ==
LOC: EC 16:06
DX: I95.9 Hypotension, unspecified (principal); E11.649 Type 2 diabetes mellitus with hypoglycemia without coma; M62.838 Other muscle spasm; E87.1 Hypo-osmolality and hyponatremia; M79.89 Other specified soft tissue disorders; E78.5 Hyperlipidemia, unspecified; H35.30 Unspecified macular degeneration; I25.2 Old myocardial infarction; I48.91 Unspecified atrial fibrillation; K21.9 Gastro-esophageal reflux disease without esophagitis; M10.9 Gout, unspecified; M19.90 Unspecified osteoarthritis, unspecified site; E11.40 Type 2 diabetes mellitus with diabetic neuropathy, unspecified; Z79.4 Long term (current) use of insulin; Z79.82 Long term (current) use of aspirin; Z79.899 Other long term (current) drug therapy; Z79.01 Long term (current) use of anticoagulants; Z99.2 Dependence on renal dialysis; Z99.89 Dependence on other enabling machines and devices; Z96.651 Presence of right artificial knee joint; Z96.643 Presence of artificial hip joint, bilateral; Z98.890 Other specified postprocedural states; Z86.73 Personal history of transient ischemic attack (TIA), and cerebral infarction without residual deficits; Z82.49 Family history of ischemic heart disease and other diseases of the circulatory system; Z83.3 Family history of diabetes mellitus
CPT/HCPCS: 36415; 80053; 83735; 84100; 85025; 90935; 99285

== ENCOUNTER → 2019-04-28 | Outpatient (CLI) | payer MEDICARE, BC ==
--- NOTE | 2019-04-29 08:18 | XR ---
EXAMINATION TYPE: XR chest 2V DATE OF EXAM: 04/28/2019 COMPARISON: 02/01/2018 INDICATION: Dyspnea, short of breath TECHNIQUE: Frontal and lateral views of the chest are obtained. FINDINGS: The heart size is mildly prominent. Mediastinum is prominent.. The pulmonary vasculature is normal. Small bibasilar infiltrates are present. IMPRESSION: 1. Cardiomegaly. 2. Prominence of the mediastinum. This is slightly increased from the comparison. 3. Mild left lower lobe and posterior medial right lower lobe infiltrates. Correlate for atelectasis and pneumonia.
== END | disposition home or self-care (01) ==
LOC: RADXRMAIN 16:08
PROVIDERS: ATTEND Family Medicine
DX: I51.7 Cardiomegaly (principal); R91.8 Other nonspecific abnormal finding of lung field
CPT/HCPCS: 71046

== ENCOUNTER 2019-05-04 09:35 | Inpatient (IN) | payer MEDICARE, BC ==
[2019-05-04] MEDS ORDERED: ATROPINE SULFATE 0.1 MG/ML 10ML SYRINGE IV STA (10:01)
[2019-05-04 10:24] LABS: Glucose,Whole Blood 237 mg/dL (75-99)
[2019-05-04 10:30] LABS: Calcium 8.6 mg/dL (8.4-10.2); Magnesium 2.9 mg/dL (1.6-2.3)
--- NOTE | 2019-05-04 10:33 | ED ---
General Adult HPI - General Chief complaint: Recheck/Abnormal Lab/Rx Stated complaint: Low heart rate Time Seen by Provider: 05/04/19 09:42 Source: patient Mode of arrival: wheelchair Limitations: no limitations - History of Present Illness Initial comments: Dictation was produced using [employer] dictation software. please excuse any grammatical, word or spelling errors. Chief Complaint: 78-year-old male past medical history of atrial fibrillation, end-stage renal disease, diabetes and dyslipidemia presents with bradycardia. History of Present Illness: 38-year-old male has past medical history of end- stage renal disease. He gets dialysis Thursday. He went to his dialysis appointment today however dialysis was not performed because patient was too bradycardic. Patient's heart rate at dialysis was in the 30s. He was directed to come to the emergency department instead. He is complete by his reports that he's been significantly weak over the last several days. He's been so weak that he needed a lot of assistance to perform his activities of daily living. Patient has history of atrial fibrillation. He is on several cardiac medications. He has not taken his amiodarone over the last couple days. At home they've been measuring patient's heart rate and report that it is between the 30s and 100s. Patient denies any pain complaints. The ROS documented in this emergency department record has been reviewed and confirmed by me. Those systems with pertinent positive or negative responses have been documented in the HPI. All other systems are other negative and/or noncontributory. PHYSICAL EXAM: General Impression: Alert and oriented x3, not in acute distress, obese HEENT: Normocephalic atraumatic, extra-ocular movements intact, pupils equal and reactive to light bilaterally, mucous membranes moist. Cardiovascular: Bradycardic Chest: Lungs clear to auscultation bilaterally, no rhonchi, no wheeze, no rales Abdomen: Bowel sounds present, abdomen soft, non-tender, non-distended, no orga nomegaly Musculoskeletal: Pulses present and equal in all extremities, no peripheral edema Motor: no focal deficits noted Neurological: CN II-XII grossly intact, no focal motor or sensory deficits noted Skin: Intact with no visualized rashes Psych: Normal affect and mood ED course: 78-year-old male multiple comorbidities presents with bradycardia. Signs upon arrival shows heart rate of 42, respiratory signs within acceptable limits. EKG shows narrow complex bradycardia. Patient was given some atropine with improvement of heart rate. Laboratory evaluation obtained. Leukocytosis of 13.3, hemoglobin 10. Coag panel is within acceptable limits. Metabolic panel shows potassium 7.2, BUN of 107 and creatinine of 9.16. Magnesium 2.9. Patient's creatinine is significantly elevated from his baseline. Patient given hyperkalemia cocktail. Discussed patient case immediately with Dr. Peter who will arrange for dialysis. Dr. Mckenzie is willing to accept patients care. Dr. Marsh will accept patient to the intensive care unit. He looks grossly stable when compared to most recent x-ray. EKG interpretation: Ventricular rate 39, atrial fibrillation, QRS 102, QTC 405. No MI prolongation, no QTC prolongation, no ST or T-wave changes noted. - Related Data Home Medications Medication Instructions Recorded Confirmed Aspirin [Adult Low Dose Aspirin EC] 81 mg PO DAILY@1300 04/27/17 05/04/19 Acetaminophen [Tylenol Arthritis] 1,300 mg PO Q12H PRN 08/06/17 05/04/19 Isosorbide Mononitrate [Isosorbide 30 mg PO DAILY@1300 08/06/17 05/04/19 Mononitrate ER] Nitroglycerin Sl Tabs [Nitrostat] 0.4 mg SUBLINGUAL Q5M PRN 08/06/17 05/04/19 Zolpidem [Ambien] 5 - 10 mg PO HS PRN 08/06/17 05/04/19 traMADol HCL [Ultram] 50 mg PO Q8HR PRN 08/06/17 05/04/19 Albuterol Inhaler [Ventolin Hfa 2 puff INHALATION RT-Q4H PRN 10/26/17 05/04/19 Inhaler] Budesonide/Formoterol Fumarate 2 puff INHALATION RT-BID 10/26/17 05/04/19 [Symbicort 160-4.5 Mcg Inhaler] Allopurinol [Zyloprim] 200 mg PO DAILY@1800 04/08/18 05/04/19 Calcium Acetate [Phoslo] 667 mg PO QID 04/08/18 05/04/19 Ergocalciferol (Vitamin D2) 50,000 unit PO Q14D 04/08/18 05/04/19 [Drisdol] Amiodarone HCl [Pacerone] 100 mg PO DAILY@1300 05/04/19 05/04/19 Apixaban [Eliquis] 2.5 mg PO BID 05/04/19 05/04/19 Docusate [Colace] 100 mg PO DAILY PRN 05/04/19 05/04/19 Famotidine [Pepcid] 20 mg PO DAILY@1300 05/04/19 05/04/19 Insulin Aspart (For Pump) [NovoLOG 0.01 unit SQ-PUMP CONTINUOUS 05/04/19 05/04/19 (For Pump)] Levothyroxine Sodium [Synthroid] 75 mcg PO DAILY 05/04/19 05/04/19 Lidocaine-Prilocaine Cream [Emla 1 applic TOPICAL DIRECTED 05/04/19 05/04/19 Cream 2.5%/2.5%] Midodrine HCl [ProAmatine] 10 mg PO DIRECTED PRN 05/04/19 05/04/19 Polyethylene Glycol 3350 [Miralax] 17 gm PO DAILY PRN 05/04/19 05/04/19 Pravastatin Sodium [Pravachol] 40 mg PO HS 05/04/19 05/04/19 Pregabalin [Lyrica] 150 mg PO BID 05/04/19 05/04/19 Sulfamethox-Tmp 800-160Mg [Bactrim 0.5 tab PO DAILY@1700 05/04/19 05/04/19 DS 800-160 mg] Tamsulosin HCl [Flomax] 0.4 mg PO BID 05/04/19 05/04/19 Torsemide [Demadex] 100 mg PO DAILY 05/04/19 05/04/19 amLODIPine BESYLATE [Norvasc] 5 mg PO DAILY@1300 PRN 05/04/19 05/04/19 rOPINIRole HCL [Requip] 1 mg PO TID 05/04/19 05/04/19 Allergies Allergy/AdvReac Type Severity Reaction Status Date / Time No Known Allergies Allergy Verified 05/04/19 10:43 Review of Systems ROS Statement: Those systems with pertinent positive or pertinent negative responses have been documented in the HPI. ROS Other: All systems not noted in ROS Statement are negative. Past Medical History Past Medical History: Atrial Fibrillation, CVA/TIA, Diabetes Mellitus, Eye Disorder, GERD/Reflux, Hyperlipidemia, Myocardial Infarction ([place]), Osteoarthritis (OA), Renal Disease, Sleep Apnea/CPAP/BIPAP, Syncope Additional Past Medical History / Comment(s): Gout, upper rt dental bridge blockage left carotid artery, neuropathy, diverticulitis, insulin pump, uses a walker- wheelchair for distance. 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, hx pericardial effusion, macular degeneration left eye- gets injections"has never been told if he ever had chf in past" Last Myocardial Infarction Date:: 05/08/17 History of Any Multi-Drug Resistant Organisms: None Reported Past Surgical History: Cardiac Ablation, Joint Replacement, Orthopedic Surgery, Tonsillectomy Additional Past Surgical History / Comment(s): carpal tunnel rt wrist, rt knee replacement, shaka hip replacement, drainage for pericaridal effusion, cardiovers ion x 2, arthroscopy shaka knees, rt carotid endarterectomy, trigger finger shaka hands, shaka cataracts, "had a dialysis cath inserted in nov 2017 only had 2 treatments-cath since removed" Past Anesthesia/Blood Transfusion Reactions: No Reported Reaction Past Psychological History: No Psychological Hx Reported Smoking Status: Never smoker - Past Family History Mother Family Medical History: Diabetes Mellitus, Hyperlipidemia, Hypertension, Myocardial Infarction ([place]) Daughter(s) Family Medical History: Cancer Father Additional Family Medical History / Comment(s): alcoholic General Exam Limitations: no limitations Course Vital Signs 05/04/19 05/04/19 05/04/19 09:36 09:41 09:55 Pulse Rate 42 L 39 L Pulse Rate [ 39 L Charging Board Operator ] Respiratory 18 18 Rate Blood Pressure 116/49 143/133 O2 Sat by Pulse 95 97 Oximetry 05/04/19 05/04/19 05/04/19 10:39 11:00 11:18 Pulse Rate 61 44 L 47 L Pulse Rate [ Charging Board Operator ] Respiratory 18 18 Rate Blood Pressure 108/85 97/83 O2 Sat by Pulse 98 98 Oximetry 05/04/19 11:33 Pulse Rate 47 L Pulse Rate [ Charging Board Operator ] Respiratory Rate Blood Pressure O2 Sat by Pulse Oximetry Medical Decision Making - Lab Data Result diagrams: 05/04/19 10:00 05/04/19 10:00 Lab Results 05/04/19 05/04/19 05/04/19 Range/Units 10:00 10:00 10:00 WBC 13.3 H (3.8-10.6) k/uL RBC 2.99 L (4.30-5.90) m/uL Hgb 10.0 L (13.0-17.5) gm/dL Hct 32.8 L (39.0-53.0) % MCV 109.6 H (80.0-100.0) fL MCH 33.4 (25.0-35.0) pg MCHC 30.5 L (31.0-37.0) g/dL RDW 16.3 H (11.5-15.5) % Plt Count 228 (150-450) k/uL Neutrophils % Not Reportable Neutrophils % (Manual) 87 % Band Neutrophils % 2 % Lymphocytes % Not Reportable Lymphocytes % (Manual) 5 % Monocytes % Not Reportable Monocytes % (Manual) 5 % Eosinophils % Not Reportable Basophils % Not Reportable Metamyelocytes % 1 % Myelocytes % 2 % Neutrophils # Not Reportable Neutrophils # (Manual) 11.80 H (1.3-7.7) k/uL Lymphocytes # Not Reportable Lymphocytes # (Manual) 0.67 L (1.0-4.8) k/uL Monocytes # Not Reportable Monocytes # (Manual) 0.67 (0-1.0) k/uL Eosinophils # Not Reportable Basophils # Not Reportable Metamyelocytes # (Man) 0.13 H (0) k/uL Myelocytes # (Manual) 0.27 H (0) k/uL Nucleated RBCs 0 (0-0) /100 WBC Toxic Vacuolation Present Polychromasia Present Hypochromasia Slight Poikilocytosis (manual Present Anisocytosis Slight Macrocytosis Marked A PT 11.4 (9.0-12.0) sec INR 1.1 (<1.2) APTT 62.9 H (22.0-30.0) sec Sodium 133 L (137-145) mmol/L Potassium 7.2 H* (3.5-5.1) mmol/L Chloride 93 L (98-107) mmol/L Carbon Dioxide 24 (22-30) mmol/L Anion Gap 16 mmol/L BUN 107 H* (9-20) mg/dL Creatinine 9.16 H* (0.66-1.25) mg/dL Est GFR (CKD-EPI)AfAm 6 (>60 ml/min/1.73 sqM) Est GFR (CKD-EPI)NonAf 5 (>60 ml/min/1.73 sqM) Glucose 221 H (74-99) mg/dL POC Glucose (mg/dL) (75-99) mg/dL POC Glu Senior Professional Services Consultant ID Plasma Lactic Acid Doug (0.7-2.0) mmol/L Calcium 8.6 (8.4-10.2) mg/dL Magnesium 2.9 H (1.6-2.3) mg/dL 05/04/19 05/04/19 Range/Units 10:00 10:22 WBC (3.8-10.6) k/uL RBC (4.30-5.90) m/uL Hgb (13.0-17.5) gm/dL Hct (39.0-53.0) % MCV (80.0-100.0) fL MCH (25.0-35.0) pg MCHC (31.0-37.0) g/dL RDW (11.5-15.5) % Plt Count (150-450) k/uL Neutrophils % Neutrophils % (Manual) % Band Neutrophils % % Lymphocytes % Lymphocytes % (Manual) % Monocytes % Monocytes % (Manual) % Eosinophils % Basophils % Metamyelocytes % % Myelocytes % % Neutrophils # Neutrophils # (Manual) (1.3-7.7) k/uL Lymphocytes # Lymphocytes # (Manual) (1.0-4.8) k/uL Monocytes # Monocytes # (Manual) (0-1.0) k/uL Eosinophils # Basophils # Metamyelocytes # (Man) (0) k/uL Myelocytes # (Manual) (0) k/uL Nucleated RBCs (0-0) /100 WBC Toxic Vacuolation Polychromasia Hypochromasia Poikilocytosis (manual Anisocytosis Macrocytosis PT (9.0-12.0) sec INR (<1.2) APTT (22.0-30.0) sec Sodium (137-145) mmol/L Potassium (3.5-5.1) mmol/L Chloride (98-107) mmol/L Carbon Dioxide (22-30) mmol/L Anion Gap mmol/L BUN (9-20) mg/dL Creatinine (0.66-1.25) mg/dL Est GFR (CKD-EPI)AfAm (>60 ml/min/1.73 sqM) Est GFR (CKD-EPI)NonAf (>60 ml/min/1.73 sqM) Glucose (74-99) mg/dL POC Glucose (mg/dL) 237 H (75-99) mg/dL POC Glu Senior Professional Services Consultant ID Wilian Khalil Plasma Lactic Acid Doug 1.4 (0.7-2.0) mmol/L Calcium (8.4-10.2) mg/dL Magnesium (1.6-2.3) mg/dL Critical Care Time Total Critical Care Time: 31 Disposition Clinical Impression: Weakness, Hyperkalemia, Bradycardia Disposition: ADMITTED IP TO THIS [facility] Condition: Critical Referrals: Paddy Corona MD [Primary Care Provider] - 1-2 days Decision Time: 11:48
[2019-05-04 10:41] LABS: INR 1.1 (<1.2); Prothrombin Time 11.4 sec (9.0-12.0)
[2019-05-04 10:42] LABS: Anisocytosis Slight; HCT 32.8 % (39.0-53.0); Hypochromasia Slight; MCH 33.4 pg (25.0-35.0); MCHC 30.5 g/dL (31.0-37.0); MCV 109.6 fL (80.0-100.0); Macrocytosis Marked; Mean Platelet Volume 9.9; Platelet Count 228 k/uL (150-450); RBC 2.99 m/uL (4.30-5.90); RDW 16.3 % (11.5-15.5); WBC 13.3 k/uL (3.8-10.6)
[2019-05-04 10:45] LABS: Potassium 7.2 mmol/L (3.5-5.1)
[2019-05-04 10:50] LABS: Partial Thromboplastin Time 62.9 sec (22.0-30.0)
[2019-05-04] MEDS ORDERED: DEXTROSE 10 % IN WATER 250 ML IV ONE (10:57)
[2019-05-04] MEDS ORDERED: SODIUM POLYSTYRENE SULFONATE 15 GM/60 ML BOTTLE PO ONE ×2 (10:57→23:23)
[2019-05-04] MEDS ORDERED: INSULIN REGULAR 100 UNIT/ML VIAL IV ONE (10:57)
[2019-05-04] MEDS ORDERED: ALBUTEROL NEB (CONC) 2.5 MG/0.5 ML INHALATION ONE (10:57)
[2019-05-04] MEDS ORDERED: CALCIUM GLUCONATE 1 GM in SODIUM CHLORIDE 0.9% 100 ML IVPB ONE (11:00)
[2019-05-04 11:22] LABS: Band Neutrophils % 2 %; Lymphocytes # (M) 0.67 k/uL (1.0-4.8); Metamyelocytes # (M) 0.13 k/uL (0); Metamyelocytes % 1 %; Monocytes # (M) 0.67 k/uL (0-1.0); Myelocytes # (M) 0.27 k/uL (0); Myelocytes % 2 %; Neutrophils % (M) 87 %; Nucleated Red Blood Cells 0 /100 WBC (0-0); Total Cells Counted 200
[2019-05-04 11:23] LABS: Poikilocytosis (M) Present; Toxic Vacuolation Present
[2019-05-04 11:24] LABS: Polychromasia Present
[2019-05-04] MEDS ORDERED: NALOXONE 0.4 MG/ML 1 ML VIAL IV PRN (11:44)
--- NOTE | 2019-05-04 11:51 | XR ---
EXAMINATION TYPE: XR chest 1V portable DATE OF EXAM: 05/04/2019 HISTORY: Shortness of breath. COMPARISON: 04/28/2019 TECHNIQUE: Single view of the chest is submitted. FINDINGS: Demonstrated are scattered senescent parenchymal change. There is persistent patchy density right medial lung base although appears to be somewhat improved. C orrelate clinically and progress studies are advised. The heart is stable. Hilar and mediastinal structures are within normal limits. Degenerative changes are seen of the dorsal spine. IMPRESSION: 1. There is persistent patchy density right medial lung base although appears to be somewhat improve d. Correlate clinically and progress studies are advised.
[2019-05-04] MEDS: SODIUM CHLORIDE 0.9% 1,000 ML IV SCH (11:58)
[2019-05-04 13:34] LABS: Glucose,Whole Blood 207 mg/dL (75-99)
--- NOTE | 2019-05-04 15:54 | P.CNPUL ---
History of Present Illness Consult date: 05/04/19 Requesting physician: Patrick Mckenzie Jr Reason for consult: other (Fluid overload and hyperkalemia with profound bradycardia.) Chief complaint: Low heart rate History of present illness: This is a 78-year-old white male with history of multiple comorbidities including morbid obesity, chronic renal failure, on hemodialysis. He usually gets his dialysis on Thursday was done Thursday. Patient went today for his regular appointment for hemodialysis. And he was noted to be bradycardic. Patient had no symptoms whatsoever. However his heart rate was noted to dip down into the 30s and low 40s. He was not hypotensive. Hence the hemodialysis staff director the patient to go to the ER. Patient had mostly symptoms of weakness which is not unusual for him for the last few days. Patient was noted to have hyperkalemia, and profound bradycardia but no hemodynamic instability. I was notified about the patient admitted to the ICU. And I recommended immediate nephrology consultation, hemodialysis, and cardiology consultation. Patient was transferred to the ICU, and S1 as he arrived, that hemodialysis team was already in the ICU and initiated hemodialysis. Patient was feeling fine, he had no complaints except generally weak. Denies any headache blurred vision or dizziness denied any chest pain. Denied any shortness of breath although his chest x-ray was consistent with some component of fluid overload. But it was a sub-optimal quality because of his morbid obesity. And this was a portable chest x-ray. Review of Systems CONSTITUTIONAL: Mostly generalized weakness. HEENT: Denies any headache blurred vision dizziness or sore throat. CARDIOVASCULAR: Denies any palpitations, no orthopnea, no PND, no syncope. PULMONARY: Denies any cough wheezing or shortness of breath.. GASTROINTESTINAL: Denies nausea vomiting abdominal pain melena or hematemesis. NEUROLOGICAL: Denies headache blurred vision or dizziness. HEMATOLOGICAL: Denies any history of clotting bleeding or bruising.. GENITOURINARY: Denies dysuria frequency urgency hematuria. Patient is a hemodialysis patient MUSCULOSKELETAL/RHEUMATOLOGICAL: Generalized weakness but denies any aches or p ains. ENDOCRINE: Denies any heat or cold intolerance. Psychiatric: Denies any symptoms of depression. Skin: Denies any rashes. Past Medical History Past Medical History: Atrial Fibrillation, Coronary Artery Disease (CAD), Heart Failure, CVA/TIA, Diabetes Mellitus, Eye Disorder, GERD/Reflux, Hyperlipidemia, Hypertension, Myocardial Infarction ([place]), Osteoarthritis (OA), Renal Disease, Sleep Apnea/CPAP/BIPAP, Syncope, Vascular Disorder Additional Past Medical History / Comment(s): IDDM type II with insulin pump, neuropathy bilateral legs/feet, current bilateral foot wounds, ESRD with hemodialysis M/W/F, chronic anemia, gout bilateral great toes, arthritis bilateral hands/feet/back, 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 Last Myocardial Infarction Date:: 05/08/17 History of Any Multi-Drug Resistant Organisms: None Reported Past Surgical History: Cardiac Ablation, Heart Catheterization, Joint Replacement, Orthopedic Surgery, Tonsillectomy Additional Past Surgical History / Comment(s): Temporary hemodialysis cath R chest, fistula L upper arm, cardioversions x2, pericardial effusion drainage, R caratid endartectomy, bilateral cataract surgery/lens implants, bilateral hands trigger finger releases, bilateral knee arthroscopies, R total knee arthroplasty, bilateral total hip arthroplasties, R carpal tunnel release. Past Anesthesia/Blood Transfusion Reactions: No Reported Reaction Smoking Status: Never smoker - Past Family History Mother Family Medical History: Diabetes Mellitus, Hyperlipidemia, Hypertension, Myocardial Infarction ([place]) Daughter(s) Family Medical History: Cancer Father Additional Family Medical History / Comment(s): alcoholic Medications and Allergies Home Medications Medication Instructions Recorded Confirmed Type Aspirin [Adult Low Dose Aspirin EC] 81 mg PO DAILY@1300 04/27/17 05/04/19 History Acetaminophen [Tylenol Arthritis] 1,300 mg PO Q12H PRN 08/06/17 05/04/19 History Isosorbide Mononitrate [Isosorbide 30 mg PO DAILY@1300 08/06/17 05/04/19 History Mononitrate ER] Nitroglycerin Sl Tabs [Nitrostat] 0.4 mg SUBLINGUAL Q5M PRN 08/06/17 05/04/19 History Zolpidem [Ambien] 5 - 10 mg PO HS PRN 08/06/17 05/04/19 History traMADol HCL [Ultram] 50 mg PO Q8HR PRN 08/06/17 05/04/19 History Albuterol Inhaler [Ventolin Hfa 2 puff INHALATION RT-Q4H PRN 10/26/17 05/04/19 History Inhaler] Budesonide/Formoterol Fumarate 2 puff INHALATION RT-BID 10/26/17 05/04/19 History [Symbicort 160-4.5 Mcg Inhaler] Allopurinol [Zyloprim] 200 mg PO DAILY@1800 04/08/18 05/04/19 History Calcium Acetate [Phoslo] 667 mg PO QID 04/08/18 05/04/19 History Ergocalciferol (Vitamin D2) 50,000 unit PO Q14D 04/08/18 05/04/19 History [Drisdol] Amiodarone HCl [Pacerone] 100 mg PO DAILY@1300 05/04/19 05/04/19 History Apixaban [Eliquis] 2.5 mg PO BID 05/04/19 05/04/19 History Docusate [Colace] 100 mg PO DAILY PRN 05/04/19 05/04/19 History Famotidine [Pepcid] 20 mg PO DAILY@1300 05/04/19 05/04/19 History Insulin Aspart (For Pump) [NovoLOG 0.01 unit SQ-PUMP CONTINUOUS 05/04/19 05/04/19 History (For Pump)] Levothyroxine Sodium [Synthroid] 75 mcg PO DAILY 05/04/19 05/04/19 History Lidocaine-Prilocaine Cream [Emla 1 applic TOPICAL DIRECTED 05/04/19 05/04/19 History Cream 2.5%/2.5%] Midodrine HCl [ProAmatine] 10 mg PO DIRECTED PRN 05/04/19 05/04/19 History Polyethylene Glycol 3350 [Miralax] 17 gm PO DAILY PRN 05/04/19 05/04/19 History Pravastatin Sodium [Pravachol] 40 mg PO HS 05/04/19 05/04/19 History Pregabalin [Lyrica] 150 mg PO BID 05/04/19 05/04/19 History Sulfamethox-Tmp 800-160Mg [Bactrim 0.5 tab PO DAILY@1700 05/04/19 05/04/19 History DS 800-160 mg] Tamsulosin HCl [Flomax] 0.4 mg PO BID 05/04/19 05/04/19 History Torsemide [Demadex] 100 mg PO DAILY 05/04/19 05/04/19 History amLODIPine BESYLATE [Norvasc] 5 mg PO DAILY@1300 PRN 05/04/19 05/04/19 History rOPINIRole HCL [Requip] 1 mg PO TID 05/04/19 05/04/19 History Allergies Allergy/AdvReac Type Severity Reaction Status Date / Time No Known Allergies Allergy Verified 05/04/19 10:43 Physical Exam Vitals: Vital Signs Pulse Pulse Resp BP Pulse Ox 05/04/19 15:15 44 L 9 L 106/42 99 05/04/19 15:00 52 L 12 103/42 96 05/04/19 14:45 48 L 14 96/43 97 05/04/19 14:30 41 L 12 94/53 99 05/04/19 14:15 42 L 12 97/45 97 05/04/19 14:00 46 L 16 124/114 98 05/04/19 13:50 44 L 12 101/54 94 L 05/04/19 13:40 43 L 16 128/99 95 05/04/19 13:30 42 L 12 118/67 96 05/04/19 13:20 44 L 6 L 116/57 96 05/04/19 13:10 44 L 18 115/48 93 L 05/04/19 11:58 49 L 18 104/77 95 05/04/19 11:33 47 L 05/04/19 11:18 47 L 05/04/19 11:00 44 L 18 97/83 98 05/04/19 10:39 61 18 108/85 98 05/04/19 09:55 39 L 05/04/19 09:41 39 L 18 143/133 97 05/04/19 09:36 42 L 18 116/49 95 Intake and Output 05/04/19 05/04/19 05/04/19 06:59 14:59 22:59 Intake Total 40 20 Balance 40 20 Intake: IV 40 20 Sodium Chloride 0.9% 1, 40 20 000 ml @ 20 mls/hr IV . Q24H [facility] Rx#:[id number] Other: Weight 136.078 kg GENERAL EXAM: Obese, Alert, pleasant, 78-year-old white male, comfortable in no apparent distress. HEAD: Normocephalic/atraumatic. EENT: Short obese neck, no neck masses, Mallampati class IV, moist mucous membranes. No JVD no stridor. And no lymphadenopathy. CHEST: No chest wall deformity. Symmetrical expansion. LUNGS: Diminished breath sounds at the bases minimal crackles at the left base. CVS: Irregular irregular, bradycardic, 2/6 systolic murmur thought the precordium. ABDOMEN: Obese, Soft, nontender. No hepatosplenomegaly, normal bowel sounds, no guarding or rigidity. EXTREMITIES: No clubbing, 1+ bipedal edema, no cyanosis, 2+ pulses and upper and lower extremities. MUSCULOSKELETAL: Muscle strength and tone normal. SPINE: No scoliosis or deformity SKIN: No rashes CENTRAL NERVOUS SYSTEM: Alert oriented 3 no gross focal neurologic deficits.. PSYCHIATRIC: Normal mood, affect and normal mental status examination. Results - Laboratory Findings CBC and BMP: 05/04/19 10:00 05/04/19 13:55 PT/INR, D-dimer PT 11.4 sec (9.0-12.0) 05/04/19 10:00 INR 1.1 (<1.2) 05/04/19 10:00 Abnormal lab findings: Abnormal Labs 05/04/19 05/04/19 05/04/19 10:00 10:00 10:00 WBC 13.3 H RBC 2.99 L Hgb 10.0 L Hct 32.8 L MCV 109.6 H MCHC 30.5 L RDW 16.3 H Neutrophils # (Manual) 11.80 H Lymphocytes # (Manual) 0.67 L Metamyelocytes # (Man) 0.13 H Myelocytes # (Manual) 0.27 H Macrocytosis Marked A APTT 62.9 H Sodium 133 L Potassium 7.2 H* Chloride 93 L BUN 107 H* Creatinine 9.16 H* Glucose 221 H POC Glucose (mg/dL) Magnesium 2.9 H 05/04/19 05/04/19 05/04/19 10:22 13:13 13:55 WBC RBC Hgb Hct MCV MCHC RDW Neutrophils # (Manual) Lymphocytes # (Manual) Metamyelocytes # (Man) Myelocytes # (Manual) Macrocytosis APTT Sodium Potassium 5.8 H Chloride BUN Creatinine Glucose POC Glucose (mg/dL) 237 H 207 H Magnesium - Diagnostic Findings Chest x-ray: image reviewed (Chest x-ray showed mostly patchy density at the right medial lung base, mostly atelectasis and possibly some component of interstitial edema/interstitial prominence.) Assessment and Plan Assessment: Impression: Profound bradycardia secondary to hyperkalemia secondary to chronic renal failure, patient will need immediate hemodialysis. End-stage renal disease, on hemodialysis. Chronic diastolic congestive heart failure and fluid overload secondary to renal failure. Coronary artery disease, followed by cardiology. Type 2 diabetes, insulin-dependent. Benign essential hypertension. Dyslipidemia. 2 morbid obesity. History of CVA in May of 2017. Obstructive sleep apnea syndrome, on BiPAP. Chronic atrial fibrillation. Recommendation: Immediate hemodialysis which was already done. Repeat serum potassium came down from 7.2-5.8. Continue to monitor the patient in the ICU. Cardiology was consulted to evaluate his bradycardia and atrial fibrillation. Resume home meds. Placed on BiPAP at night. Reevaluate in a.m. and possibly hemodialysis again in a.m. We'll continue to follow. Time with Patient: Greater than 30
[2019-05-04] MEDS ORDERED: NITROGLYCERIN SL TABS 0.4 MG TAB SUBLINGUAL PRN (15:58)
[2019-05-04] MEDS ORDERED: ERGOCALCIFEROL 50,000 UNIT CAP PO SCH (16:00)
[2019-05-04 17:08] LABS: Glucose,Whole Blood 189 mg/dL (75-99)
[2019-05-04] MEDS: Insulin Aspart (For Pump) 100 UNIT/ML VIAL SQ-PUMP SCH (17:10)
--- NOTE | 2019-05-04 17:10 | P.HPIM ---
History of Present Illness H&P Date: 05/04/19 Chief Complaint: Bradycardia Mr. Mitchell is a well-known patient of several years, 77-year-old male presented to the hospital with a complaint of bradycardia known history of atrial fibrillation end-stage renal disease diabetes mellitus and dyslipidemia history of known peripheral vascular and patient gets hemodialysis Thursday and Thursday. Went to dialysis appointment today and was not performed because of the bradycardia patient was subsequently sent from dialysis to [facility] emergency room for evaluation and treatment patient was subsequently admitted he is on several meds has not been taking his amiodarone for several days at home they've been measuring patient's heart rate reports that between 30s and 100s patient is at time of admission denied complaints Review of Systems Constitutional: Reports as per HPI, Reports weakness Ears, nose, mouth and throat: Reports as per HPI Cardiovascular: Reports dyspnea on exertion (Bradycardia), Reports irregular heart beat Respiratory: Reports cough, Reports dyspnea Gastrointestinal: Reports as per HPI Genitourinary: Reports as per HPI Musculoskeletal: Reports as per HPI Integumentary: Reports wounds (Lower extreme diabetic ulcers) Neurological: Reports as per HPI Psychiatric: Reports as per HPI Past Medical History Past Medical History: Atrial Fibrillation, Coronary Artery Disease (CAD), Heart Failure, CVA/TIA, Diabetes Mellitus, Eye Disorder, GERD/Reflux, Hyperlipidemia, Hypertension, Myocardial Infarction ([place]), Osteoarthritis (OA), Renal Disease, Sleep Apnea/CPAP/BIPAP, Syncope, Vascular Disorder Additional Past Medical History / Comment(s): IDDM type II with insulin pump, neuropathy bilateral legs/feet, current bilateral foot wounds, ESRD with hemodialysis M/W/F, chronic anemia, gout bilateral great toes, arthritis bilateral hands/feet/back, 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 Last Myocardial Infarction Date:: 05/08/17 History of Any Multi-Drug Resistant Organisms: None Reported Past Surgical History: Cardiac Ablation, Heart Catheterization, Joint Replacement, Orthopedic Surgery, Tonsillectomy Additional Past Surgical History / Comment(s): Temporary hemodialysis cath R chest, fistula L upper arm, cardioversions x2, pericardial effusion drainage, R caratid endartectomy, bilateral cataract surgery/lens implants, bilateral hands trigger finger releases, bilateral knee arthroscopies, R total knee ar throplasty, bilateral total hip arthroplasties, R carpal tunnel release. Past Anesthesia/Blood Transfusion Reactions: No Reported Reaction Smoking Status: Never smoker - Past Family History Mother Family Medical History: Diabetes Mellitus, Hyperlipidemia, Hypertension, Myocardial Infarction ([place]) Daughter(s) Family Medical History: Cancer Father Additional Family Medical History / Comment(s): alcoholic Medications and Allergies Home Medications Medication Instructions Recorded Confirmed Type Aspirin [Adult Low Dose Aspirin EC] 81 mg PO DAILY@1300 04/27/17 05/04/19 History Acetaminophen [Tylenol Arthritis] 1,300 mg PO Q12H PRN 08/06/17 05/04/19 History Isosorbide Mononitrate [Isosorbide 30 mg PO DAILY@1300 08/06/17 05/04/19 History Mononitrate ER] Nitroglycerin Sl Tabs [Nitrostat] 0.4 mg SUBLINGUAL Q5M PRN 08/06/17 05/04/19 History Zolpidem [Ambien] 5 - 10 mg PO HS PRN 08/06/17 05/04/19 History traMADol HCL [Ultram] 50 mg PO Q8HR PRN 08/06/17 05/04/19 History Albuterol Inhaler [Ventolin Hfa 2 puff INHALATION RT-Q4H PRN 10/26/17 05/04/19 History Inhaler] Budesonide/Formoterol Fumarate 2 puff INHALATION RT-BID 10/26/17 05/04/19 History [Symbicort 160-4.5 Mcg Inhaler] Allopurinol [Zyloprim] 200 mg PO DAILY@1800 04/08/18 05/04/19 History Calcium Acetate [Phoslo] 667 mg PO QID 04/08/18 05/04/19 History Ergocalciferol (Vitamin D2) 50,000 unit PO Q14D 04/08/18 05/04/19 History [Drisdol] Amiodarone HCl [Pacerone] 100 mg PO DAILY@1300 05/04/19 05/04/19 History Apixaban [Eliquis] 2.5 mg PO BID 05/04/19 05/04/19 History Docusate [Colace] 100 mg PO DAILY PRN 05/04/19 05/04/19 History Famotidine [Pepcid] 20 mg PO DAILY@1300 05/04/19 05/04/19 History Insulin Aspart (For Pump) [NovoLOG 0.01 unit SQ-PUMP CONTINUOUS 05/04/19 05/04/19 History (For Pump)] Levothyroxine Sodium [Synthroid] 75 mcg PO DAILY 05/04/19 05/04/19 History Lidocaine-Prilocaine Cream [Emla 1 applic TOPICAL DIRECTED 05/04/19 05/04/19 History Cream 2.5%/2.5%] Midodrine HCl [ProAmatine] 10 mg PO DIRECTED PRN 05/04/19 05/04/19 History Polyethylene Glycol 3350 [Miralax] 17 gm PO DAILY PRN 05/04/19 05/04/19 History Pravastatin Sodium [Pravachol] 40 mg PO HS 05/04/19 05/04/19 History Pregabalin [Lyrica] 150 mg PO BID 05/04/19 05/04/19 History Sulfamethox-Tmp 800-160Mg [Bactrim 0.5 tab PO DAILY@1700 05/04/19 05/04/19 History DS 800-160 mg] Tamsulosin HCl [Flomax] 0.4 mg PO BID 05/04/19 05/04/19 History Torsemide [Demadex] 100 mg PO DAILY 05/04/19 05/04/19 History amLODIPine BESYLATE [Norvasc] 5 mg PO DAILY@1300 PRN 05/04/19 05/04/19 History rOPINIRole HCL [Requip] 1 mg PO TID 05/04/19 05/04/19 History Allergies Allergy/AdvReac Type Severity Reaction Status Date / Time No Known Allergies Allergy Verified 05/04/19 10:43 Physical Exam Osteopathic Statement: *. No significant issues noted on an osteopathic structural exam other than those noted in the History and Physical/Consult. Vitals: Vital Signs Pulse Pulse Resp BP Pulse Ox 05/04/19 15:15 44 L 9 L 106/42 99 05/04/19 15:00 52 L 12 103/42 96 05/04/19 14:45 48 L 14 96/43 97 05/04/19 14:30 41 L 12 94/53 99 05/04/19 14:15 42 L 12 97/45 97 05/04/19 14:00 46 L 16 124/114 98 05/04/19 13:50 44 L 12 101/54 94 L 05/04/19 13:40 43 L 16 128/99 95 05/04/19 13:30 42 L 12 118/67 96 05/04/19 13:20 44 L 6 L 116/57 96 05/04/19 13:10 44 L 18 115/48 93 L 05/04/19 11:58 49 L 18 104/77 95 05/04/19 11:33 47 L 05/04/19 11:18 47 L 05/04/19 11:00 44 L 18 97/83 98 05/04/19 10:39 61 18 108/85 98 05/04/19 09:55 39 L 05/04/19 09:41 39 L 18 143/133 97 05/04/19 09:36 42 L 18 116/49 95 Intake and Output 05/04/19 05/04/19 05/04/19 06:59 14:59 22:59 Intake Total 40 20 Balance 40 20 Intake: IV 40 20 Sodium Chloride 0.9% 1, 40 20 000 ml @ 20 mls/hr IV . Q24H [facility] Rx#:[id number] Other: Weight 136.078 kg General: [Patient awake, alert and oriented times 3. Patient in no acute distress.] HEENT: [PERRL. EOMI. No pharyngeal erythema or exudate.] Neck: [No adenopathy.] Gradually endarterectomy scar Cardiac: [Heart regular in rate and rhythm. No S3. No S4. No clicks, rubs. No murmur.] Lungs: [Clear to auscultation bilaterally.] Abdomen: [No mass. No organomegaly. Bowel sounds presnt and normoactive in all 4 quadrants.] Extremes: [No edema no cyanosis no claudication normal pulses] dialysis access right arm Bilateral lower extreme diabetic ulcers in the healing process : [] Musculoskeletal: [No joint erythema, edema or tenderness.] Skin: [No rash.] Neurologic: [No lateralizing deficits. CN II - XII grossly intact.] Lymphatic: [No adenopathy.] Results CBC & Chem 7: 05/04/19 10:00 05/04/19 13:55 Labs: Abnormal Lab Results - Last 24 Hours (Table) 05/04/19 05/04/19 05/04/19 Range/Units 10:00 10:00 10:00 WBC 13.3 H (3.8-10.6) k/uL RBC 2.99 L (4.30-5.90) m/uL Hgb 10.0 L (13.0-17.5) gm/dL Hct 32.8 L (39.0-53.0) % MCV 109.6 H (80.0-100.0) fL MCHC 30.5 L (31.0-37.0) g/dL RDW 16.3 H (11.5-15.5) % Neutrophils # (Manual) 11.80 H (1.3-7.7) k/uL Lymphocytes # (Manual) 0.67 L (1.0-4.8) k/uL Metamyelocytes # (Man) 0.13 H (0) k/uL Myelocytes # (Manual) 0.27 H (0) k/uL Macrocytosis Marked A APTT 62.9 H (22.0-30.0) sec Sodium 133 L (137-145) mmol/L Potassium 7.2 H* (3.5-5.1) mmol/L Chloride 93 L (98-107) mmol/L BUN 107 H* (9-20) mg/dL Creatinine 9.16 H* (0.66-1.25) mg/dL Glucose 221 H (74-99) mg/dL POC Glucose (mg/dL) (75-99) mg/dL Magnesium 2.9 H (1.6-2.3) mg/dL 05/04/19 05/04/19 05/04/19 Range/Units 10:22 13:13 13:55 WBC (3.8-10.6) k/uL RBC (4.30-5.90) m/uL Hgb (13.0-17.5) gm/dL Hct (39.0-53.0) % MCV (80.0-100.0) fL MCHC (31.0-37.0) g/dL RDW (11.5-15.5) % Neutrophils # (Manual) (1.3-7.7) k/uL Lymphocytes # (Manual) (1.0-4.8) k/uL Metamyelocytes # (Man) (0) k/uL Myelocytes # (Manual) (0) k/uL Macrocytosis APTT (22.0-30.0) sec Sodium (137-145) mmol/L Potassium 5.8 H (3.5-5.1) mmol/L Chloride (98-107) mmol/L BUN (9-20) mg/dL Creatinine (0.66-1.25) mg/dL Glucose (74-99) mg/dL POC Glucose (mg/dL) 237 H 207 H (75-99) mg/dL Magnesium (1.6-2.3) mg/dL Thrombosis Risk Factor Assmnt - Choose All That Apply Any of the Below Risk Factors Present?: Yes Each Factor Represents 1 point: Obesity (BMI >25) Other Risk Factors: Yes Each Risk Factor Represents 3 Points: Age 75 years or older Other congenital or acquired thrombophilia - If yes, enter type in comment: No Thrombosis Risk Factor Assessment Total Risk Factor Score: 4 Thrombosis Risk Factor Assessment Level: Moderate Risk Assessment and Plan (1) Bradycardia Current Visit: Yes Status: Acute Code(s): R00.1 - BRADYCARDIA, UNSPECIFIED SNOMED Code(s): 18587153 (2) Hyperkalemia Current Visit: Yes Status: Acute Code(s): E87.5 - HYPERKALEMIA SNOMED Code(s): 60966826 (3) Weakness Current Visit: Yes Status: Acute Code(s): R53.1 - WEAKNESS SNOMED Code(s): 13966476 (4) MIGUEL (acute kidney injury) Current Visit: No Status: Acute Code(s): N17.9 - ACUTE KIDNEY FAILURE, UNSPECIFIED SNOMED Code(s): 58617556 Plan: Stage renal disease dialysis dependent Acute bradycardia Chronic diastolic heart failure with diminished ejection fraction Known coronary artery disease Known hypertension Known dyslipidemia Morbid obesity CVA by history 2018 Obstructive sleep apnea by history Chronic atrial fibrillation Plan Immediate hemodialysis Critical care consultation Cardiology consultation Hyperkalemia corrected Resume home meds Patient's on BiPAP at night reevaluate in the morning Time with Patient: Greater than 30
[2019-05-04] MEDS: ALLOPURINOL 100 MG TAB PO SCH (17:15)
[2019-05-04] MEDS: CALCIUM ACETATE 667 MG TAB PO SCH ×2 (17:16→21:36)
[2019-05-04] MEDS: INSULIN ASPART (NovoLOG) 100 UNIT/ML VIAL SQ SCH ×2 (17:16→21:37)
[2019-05-04] MEDS: SULFAMETHOX-TMP 800-160MG 1 EACH TAB PO SCH (17:16)
[2019-05-04 18:24] LABS: Potassium 5.7 mmol/L (3.5-5.1)
[2019-05-04 19:29] LABS: T4, Free (Free Thyroxine) 1.19 ng/dL (0.78-2.19)
[2019-05-04 20:29] LABS: Glucose,Whole Blood 375 mg/dL (75-99)
[2019-05-04] MEDS: SYMBICORT 160-4.5 MCG INHALER INHALATION SCH (20:50)
[2019-05-04] MEDS: PREGABALIN 75 MG CAP PO SCH (21:35)
[2019-05-04] MEDS: APIXABAN 2.5 MG TABLET PO SCH (21:36)
[2019-05-04] MEDS: TAMSULOSIN 0.4 MG CAP.ER.24H PO SCH (21:36)
[2019-05-04] MEDS: PRAVASTATIN SODIUM 40 MG TAB PO SCH (21:36)
[2019-05-04] MEDS: INSULIN DETEMIR (LEVEMIR) 100 UNIT/ML SYR SQ SCH (23:42)
[2019-05-05] MEDS: traMADol 50 MG TAB PO PRN (05:13)
[2019-05-05 06:20] LABS: Potassium 6.4 mmol/L (3.5-5.1)
[2019-05-05 06:22] LABS: Anisocytosis Slight; HCT 31.7 % (39.0-53.0); HGB 9.5 gm/dL (13.0-17.5); Hypochromasia Marked; MCH 33.8 pg (25.0-35.0); MCHC 29.9 g/dL (31.0-37.0); Mean Platelet Volume 9.5; Platelet Count 182 k/uL (150-450); RBC 2.81 m/uL (4.30-5.90); RDW 16.5 % (11.5-15.5); WBC 10.5 k/uL (3.8-10.6)
[2019-05-05 06:26] LABS: Macrocytosis Marked
[2019-05-05] MEDS ORDERED: LEVOTHYROXINE 75 MCG TAB PO SCH (06:30)
[2019-05-05 06:53] LABS: Glucose,Whole Blood 282 mg/dL (75-99)
[2019-05-05] MEDS: INSULIN ASPART (NovoLOG) 100 UNIT/ML VIAL SQ SCH ×4 (07:05→21:33)
[2019-05-05] MEDS: SYMBICORT 160-4.5 MCG INHALER INHALATION SCH ×2 (07:17→19:26)
[2019-05-05] MEDS: ALBUTEROL NEBULIZED 2.5 MG/3 ML INHALATION PRN ×4 (07:18→19:27)
--- NOTE | 2019-05-05 07:42 | XR ---
EXAMINATION TYPE: XR chest 1V portable DATE OF EXAM: 05/05/2019 COMPARISON: 05/04/2019 INDICATION: Short of breath TECHNIQUE: Single frontal view of the chest is obtained. FINDINGS: The heart size is enlarged. The pulmonary vasculature is normal. Left lower lobe infiltrate is present. Correlate for pneumonia. IMPRESSION: 1. Left lower lobe infiltrate in the retrocardiac region. Correlate for pneumonia. Follow-up is recom mended.
[2019-05-05] MEDS ORDERED: INSULIN REGULAR 100 UNIT/ML VIAL IV ONE (08:00)
--- NOTE | 2019-05-05 08:01 | P.CRDCN ---
History of Present Illness Consult date: 05/05/19 History of present illness: This is a very pleasant 78-year-old gentleman was coronary artery disease, peripheral arterial disease, morbid obesity, hypertension, dyslipidemia, and into stage renal disease on dialysis, was referred from the dialysis center to the hospital for further evaluation of hypotension and bradycardia. The patient is known to have severe triple-vessel coronary artery disease which is diffuse and he refused to undergo revascularization. Also the patient does have peripheral arterial disease and carotid disease. Yesterday he went to have di alysis and before dialysis he was found to be hypotensive and bradycardic. His heart rate was in the 30s and 40s. His pressure was in the 90s. Because of that the patient was referred to the emergency department. According to him, he was completely asymptomatic and denies any chest pain or chest discomfort, dizziness, heart racing, or syncope. He was not feeling weak or tired. Beside that the blood work was performed and that came in to be abnormal with severe hyperkalemia and he was given Kayexalate and after that he underwent dialysis immediately. With the patient was seen this morning, he continues to be bradycardic with heart rate in the 30s and 40s and he is in underlying atrial fibrillation/atrial flutter. Currently he is on amiodarone at 100 mg by mouth daily. Also his pressure has been marginal and he is receiving Norvasc. I am going to DC the Norvasc at this point. I am going to decrease the dose of amiodarone to 50 mg by mouth daily. Continue monitor the heart rate. We will obtain an echocardiogram was Doppler. Nephrology and pulmonary are on the case as well. The chest x-ray did not show any acute abnormalities. The EKG showed underlying atrial fibrillation/atrial flutter with bradycardia. Past Medical History Past Medical History: Atrial Fibrillation, Coronary Artery Disease (CAD), Heart Failure, CVA/TIA, Diabetes Mellitus, Eye Disorder, GERD/Reflux, Hyperlipidemia, Hypertension, Myocardial Infarction (OR), Osteoarthritis (OA), Renal Disease, Sleep Apnea/CPAP/BIPAP, Syncope, Vascular Disorder Additional Past Medical History / Comment(s): IDDM type II with insulin pump, neuropathy bilateral legs/feet, current bilateral foot wounds, ESRD with hemodialysis M/W/F, chronic anemia, gout bilateral great toes, arthritis bilateral hands/feet/back, 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 Last Myocardial Infarction Date:: 05/08/17 History of Any Multi-Drug Resistant Organisms: None Reported Past Surgical History: Cardiac Ablation, Heart Catheterization, Joint Replace ment, Orthopedic Surgery, Tonsillectomy Additional Past Surgical History / Comment(s): Temporary hemodialysis cath R chest, fistula L upper arm, cardioversions x2, pericardial effusion drainage, R caratid endartectomy, bilateral cataract surgery/lens implants, bilateral hands trigger finger releases, bilateral knee arthroscopies, R total knee arthroplasty, bilateral total hip arthroplasties, R carpal tunnel release. Past Anesthesia/Blood Transfusion Reactions: No Reported Reaction Smoking Status: Never smoker - Past Family History Mother Family Medical History: Diabetes Mellitus, Hyperlipidemia, Hypertension, Myocardial Infarction (OR) Daughter(s) Family Medical History: Cancer Father Additional Family Medical History / Comment(s): alcoholic Medications and Allergies Home Medications Medication Instructions Recorded Confirmed Type Aspirin [Adult Low Dose Aspirin EC] 81 mg PO DAILY@1300 04/27/17 05/04/19 History Acetaminophen [Tylenol Arthritis] 1,300 mg PO Q12H PRN 08/06/17 05/04/19 History Isosorbide Mononitrate [Isosorbide 30 mg PO DAILY@1300 08/06/17 05/04/19 History Mononitrate ER] Nitroglycerin Sl Tabs [Nitrostat] 0.4 mg SUBLINGUAL Q5M PRN 08/06/17 05/04/19 History Zolpidem [Ambien] 5 - 10 mg PO HS PRN 08/06/17 05/04/19 History traMADol HCL [Ultram] 50 mg PO Q8HR PRN 08/06/17 05/04/19 History Albuterol Inhaler [Ventolin Hfa 2 puff INHALATION RT-Q4H PRN 10/26/17 05/04/19 History Inhaler] Budesonide/Formoterol Fumarate 2 puff INHALATION RT-BID 10/26/17 05/04/19 History [Symbicort 160-4.5 Mcg Inhaler] Allopurinol [Zyloprim] 200 mg PO DAILY@1800 04/08/18 05/04/19 History Calcium Acetate [Phoslo] 667 mg PO QID 04/08/18 05/04/19 History Ergocalciferol (Vitamin D2) 50,000 unit PO Q14D 04/08/18 05/04/19 History [Drisdol] Amiodarone HCl [Pacerone] 100 mg PO DAILY@1300 05/04/19 05/04/19 History Apixaban [Eliquis] 2.5 mg PO BID 05/04/19 05/04/19 History Docusate [Colace] 100 mg PO DAILY PRN 05/04/19 05/04/19 History Famotidine [Pepcid] 20 mg PO DAILY@1300 05/04/19 05/04/19 History Insulin Aspart (For Pump) [NovoLOG 0.01 unit SQ-PUMP CONTINUOUS 05/04/19 05/04/19 History (For Pump)] Levothyroxine Sodium [Synthroid] 75 mcg PO DAILY 05/04/19 05/04/19 History Lidocaine-Prilocaine Cream [Emla 1 applic TOPICAL DIRECTED 05/04/19 05/04/19 History Cream 2.5%/2.5%] Midodrine HCl [ProAmatine] 10 mg PO DIRECTED PRN 05/04/19 05/04/19 History Polyethylene Glycol 3350 [Miralax] 17 gm PO DAILY PRN 05/04/19 05/04/19 History Pravastatin Sodium [Pravachol] 40 mg PO HS 05/04/19 05/04/19 History Pregabalin [Lyrica] 150 mg PO BID 05/04/19 05/04/19 History Sulfamethox-Tmp 800-160Mg [Bactrim 0.5 tab PO DAILY@1700 05/04/19 05/04/19 History DS 800-160 mg] Tamsulosin HCl [Flomax] 0.4 mg PO BID 05/04/19 05/04/19 History Torsemide [Demadex] 100 mg PO DAILY 05/04/19 05/04/19 History amLODIPine BESYLATE [Norvasc] 5 mg PO DAILY@1300 PRN 05/04/19 05/04/19 History rOPINIRole HCL [Requip] 1 mg PO TID 05/04/19 05/04/19 History Allergies Allergy/AdvReac Type Severity Reaction Status Date / Time No Known Allergies Allergy Verified 05/04/19 10:43 Physical Exam Vitals: Vital Signs Temp Pulse Pulse Resp BP BP Pulse Ox 05/05/19 07:35 57 L 05/05/19 07:18 48 L 05/05/19 07:00 43 L 13 129/40 95 05/05/19 06:00 45 L 26 H 112/72 95 05/05/19 05:00 45 L 23 103/89 96 05/05/19 04:00 99 F 43 L 13 132/74 95 05/05/19 03:00 57 L 22 138/59 92 L 05/05/19 02:00 42 L 13 138/59 96 05/05/19 01:00 62 21 132/54 95 05/05/19 00:00 44 L 18 99/75 98 05/04/19 23:00 57 L 21 98/31 94 L 05/04/19 22:00 55 L 24 141/77 95 05/04/19 21:00 55 L 27 H 144/56 92 L 05/04/19 20:00 42 L 16 144/80 95 05/04/19 19:00 43 L 14 109/69 94 L 05/04/19 18:30 60 12 130/62 93 L 05/04/19 18:00 62 22 104/62 93 L 05/04/19 17:30 62 19 94 L 05/04/19 17:00 47 L 17 82/45 97 05/04/19 16:39 98.0 F 48 L 20 95/68 05/04/19 16:30 47 L 8 L 97 05/04/19 16:00 98 F 48 L 28 H 96/44 97 05/04/19 15:15 44 L 9 L 106/42 99 05/04/19 15:00 52 L 12 103/42 96 05/04/19 14:45 48 L 14 96/43 97 05/04/19 14:30 41 L 12 94/53 99 05/04/19 14:15 42 L 12 97/45 97 05/04/19 14:00 46 L 16 124/114 98 05/04/19 13:50 44 L 12 101/54 94 L 05/04/19 13:40 43 L 16 128/99 95 02/26/20 13:30 42 L 12 118/67 96 05/04/19 13:20 44 L 6 L 116/57 96 05/04/19 13:10 44 L 18 115/48 93 L 05/04/19 11:58 49 L 18 104/77 95 05/04/19 11:33 47 L 05/04/19 11:18 47 L 05/04/19 11:00 44 L 18 97/83 98 05/04/19 10:39 61 18 108/85 98 05/04/19 09:55 39 L 05/04/19 09:41 39 L 18 143/133 97 05/04/19 09:36 42 L 18 116/49 95 Intake and Output 05/04/19 05/05/19 05/05/19 22:59 06:59 14:59 Intake Total 360 610 20 Output Total 2250 0 0 Balance -1890 610 20 Intake: IV 160 160 20 Sodium Chloride 0.9% 1, 160 160 20 000 ml @ 20 mls/hr IV . Q24H [facility] Rx#:[id number] Oral 200 450 Output: Urine 0 0 0 Hemodialysis 2250 - Respiratory Respiratory: bilateral: diminished - Cardiovascular Rhythm: irregularly irregular Heart sounds: normal: S1, S2 Results 05/05/19 05:30 05/05/19 05:30 Coagulation 05/04/19 Range/Units 10:00 PT 11.4 (9.0-12.0) sec APTT 62.9 H (22.0-30.0) sec CBC 05/04/19 05/05/19 Range/Units 10:00 05:30 WBC 13.3 H 10.5 (3.8-10.6) k/uL RBC 2.99 L 2.81 L (4.30-5.90) m/uL Hgb 10.0 L 9.5 L (13.0-17.5) gm/dL Hct 32.8 L 31.7 L (39.0-53.0) % Plt Count 228 182 (150-450) k/uL Comprehensive Metabolic Panel 05/04/19 05/04/19 05/04/19 Range/Units 10:00 13:55 17:34 Sodium 133 L (137-145) mmol/L Potassium 7.2 H* 5.8 H 5.7 H (3.5-5.1) mmol/L Chloride 93 L (98-107) mmol/L Carbon Dioxide 24 (22-30) mmol/L BUN 107 H* (9-20) mg/dL Creatinine 9.16 H* (0.66-1.25) mg/dL Glucose 221 H (74-99) mg/dL Calcium 8.6 (8.4-10.2) mg/dL 05/04/19 05/05/19 Range/Units 21:33 05:30 Sodium 133 L (137-145) mmol/L Potassium 6.6 H* 6.4 H* (3.5-5.1) mmol/L Chloride 96 L (98-107) mmol/L Carbon Dioxide 24 (22-30) mmol/L BUN 74 H (9-20) mg/dL Creatinine 7.70 H* (0.66-1.25) mg/dL Glucose 270 H (74-99) mg/dL Calcium 8.0 L (8.4-10.2) mg/dL Current Medications Generic Name Dose Route Start Last Admin Trade Name Freq PRN Reason Stop Dose Admin Albuterol Sulfate 2.5 mg 05/04/19 15:58 05/05/19 07:18 Ventolin Nebulized INHALATION 2.5 mg RT-Q4H PRN Administration Shortness Of Breath Allopurinol 200 mg 05/04/19 18:00 05/04/19 17:15 Zyloprim PO 200 mg DAILY@1800 [facility] Administration Amiodarone HCl 50 mg 05/05/19 13:00 Cordarone PO DAILY@1300 [facility] Apixaban 2.5 mg 05/04/19 21:00 05/04/19 21:36 Eliquis PO 2.5 mg BID JOSÉ MIGUEL Administration Aspirin 81 mg 05/05/19 13:00 Aspirin PO DAILY@1300 [facility] Budesonide/Formoterol Fumarate 2 puff 05/04/19 20:00 05/05/19 07:17 Symbicort 160-4.5 Mcg Inhaler INHALATION 2 puff RT-BID [facility] Administration Calcium Acetate 667 mg 05/04/19 18:00 05/04/19 21:36 Phoslo PO 667 mg QID [facility] Administration Docusate Sodium 100 mg 05/04/19 15:58 Colace PO DAILY PRN Constipation Famotidine 20 mg 05/05/19 13:00 Pepcid PO DAILY@1300 [facility] Sodium Chloride 1,000 mls @ 20 mls/hr 05/04/19 11:45 05/04/19 11:58 Saline 0.9% IV 20 mls/hr .Q24H JOSÉ MIGUEL Administration Insulin Aspart 0 unit 05/04/19 17:30 05/05/19 07:05 Novolog SQ 4 unit ACHS JOSÉ MIGUEL Administration Protocol Insulin Aspart 0.01 unit 05/04/19 16:00 05/04/19 17:10 Novolog (For Pump) SQ-PUMP Not Given CONTINUOUS [facility] Insulin Detemir 30 unit 05/04/19 23:30 05/04/19 23:42 Levemir SQ 30 unit HS [facility] Administration Isosorbide Mononitrate 30 mg 05/05/19 13:00 Imdur PO DAILY@1300 [facility] Levothyroxine Sodium 75 mcg 05/05/19 06:30 Synthroid PO 0630 [facility] Midodrine 10 mg 05/04/19 15:58 Proamatine PO DAILY PRN DIALYSIS DAYS Naloxone HCl 0.2 mg 05/04/19 11:44 Narcan IV Q2M PRN Opioid Reversal Nitroglycerin 0.4 mg 05/04/19 15:58 Nitrostat SUBLINGUAL Q5M PRN Chest Pain Pravastatin Sodium 40 mg 05/04/19 21:00 05/04/19 21:36 Pravachol PO 40 mg HS [facility] Administration Pregabalin 150 mg 05/04/19 21:00 05/04/19 21:35 Lyrica PO 150 mg BID [facility] Administration Ropinirole HCl 1 mg 05/04/19 16:00 05/04/19 21:36 Requip PO 1 mg TID [facility] Administration Tamsulosin HCl 0.4 mg 05/04/19 21:00 05/04/19 21:36 Flomax PO 0.4 mg BID [facility] Administration Torsemide 100 mg 05/05/19 09:00 Demadex PO DAILY [facility] Tramadol HCl 50 mg 05/04/19 15:58 05/05/19 05:13 Ultram PO 50 mg Q8HR PRN Administration Pain Trimethoprim/Sulfamethoxazole 0.5 each 05/04/19 17:00 05/04/19 17:16 Bactrim Ds PO 0.5 each DAILY@1700 [facility] Administration Intake and Output 05/04/19 05/05/19 05/05/19 22:59 06:59 14:59 Intake Total 360 610 20 Output Total 2250 0 0 Balance -1890 610 20 Intake: IV 160 160 20 Sodium Chloride 0.9% 1, 160 160 20 000 ml @ 20 mls/hr IV . Q24H [facility] Rx#:[id number] Oral 200 450 Output: Urine 0 0 0 Hemodialysis 2250 05/05/19 05:30 05/05/19 05:30 Assessment and Plan Assessment: Assessment #1 bradycardia likely related to hyperkalemia as well as medication #2 margin the low blood pressure #3 long-standing persistent atrial fibrillation #4 coronary artery disease, known triple vessel #5 multiple comorbid conditions you Plan #1 DC Norvasc #2 decrease the dose of amiodarone #3 the patient is not on any AV nicole liztete agents beside amiodarone #4 follow-up with the patient #5 restart oral anticoagulation
[2019-05-05] MEDS: CALCIUM ACETATE 667 MG TAB PO SCH ×4 (09:09→21:32)
[2019-05-05] MEDS: PREGABALIN 75 MG CAP PO SCH ×2 (09:09→21:31)
[2019-05-05] MEDS: APIXABAN 2.5 MG TABLET PO SCH ×2 (09:09→21:31)
[2019-05-05] MEDS: TORSEMIDE 20 MG TAB PO SCH (09:09)
[2019-05-05] MEDS: TAMSULOSIN 0.4 MG CAP.ER.24H PO SCH ×2 (09:09→21:31)
[2019-05-05 10:08] LABS: Glucose,Whole Blood 177 mg/dL (75-99)
[2019-05-05] MEDS: MIDODRINE 5 MG TAB PO PRN (11:20)
[2019-05-05 11:59] LABS: Glucose,Whole Blood 194 mg/dL (75-99)
--- NOTE | 2019-05-05 12:13 | P.PN ---
Subjective Progress Note Date: 05/05/19 Principal diagnosis: Bradycardia secondary to hyperkalemia and chronic renal failure. This is a 78-year-old white male with history of multiple comorbidities including morbid obesity, chronic renal failure, on hemodialysis. He usually gets his dialysis on Thursday was done Thursday. Patient went today for his regular appointment for hemodialysis. And he was noted to be bradycardic. Patient had no symptoms whatsoever. However his heart rate was noted to dip down into the 30s and low 40s. He was not hypotensive. Hence the hemodialysis staff director the patient to go to the ER. Patient had mostly symptoms of weakness which is not unusual for him for the last few days. Patient was noted to have hyperkalemia, and profound bradycardia but no hemodynamic instability. I was notified about the patient admitted to the ICU. And I recommended immediate nephrology consultation, hemodialysis, and cardiology consultation. Patient was transferred to the ICU, and S1 as he arrived, that hemodialysis team was already in the ICU and initiated hemodialysis. Patient was feeling fine, he had no complaints except generally weak. Denies any headache blurred vision or dizzine ss denied any chest pain. Denied any shortness of breath although his chest x- ray was consistent with some component of fluid overload. But it was a sub- optimal quality because of his morbid obesity. And this was a portable chest x- ray. Reevaluated today on 05/05/19, patient remains in the ICU, developing hyperkalemia again although his potassium went down to 5.8 yesterday after dialysis. Today's potassium is up to 6.4 again. And he will be dialyzed again today. In the meantime he was seen by cardiology on consultation, and the dose of amiodarone was cut down. His Norvasc was discontinued. And he recommended echocardiogram with Doppler. Hemodynamically the patient seems to be stable, blood pressure is marginal. Denies any specific complaints, denies any shortness of breath. Plans are being made for dialysis again this morning. Objective - Vital Signs Vital signs: Vital Signs Temp 96.3 F L 05/05/19 08:00 Pulse 46 L 05/05/19 11:02 Resp 12 05/05/19 11:00 BP 97/51 05/05/19 11:00 Pulse Ox 97 05/05/19 11:00 Intake & Output 05/04/19 05/05/19 05/05/19 18:59 06:59 18:59 Intake Total 120 890 100 Output Total 2250 0 0 Balance -2130 890 100 Weight 136.078 kg Intake: IV 120 240 100 Sodium Chloride 0.9% 1, 120 240 100 000 ml @ 20 mls/hr IV . Q24H [facility] Rx#:[id number] Oral 650 Output: Urine 0 0 Hemodialysis 2250 - Exam GENERAL EXAM: Obese, Alert, pleasant, 78-year-old white male, comfortable in no apparent distress. HEAD: Normocephalic/atraumatic. EENT: Short obese neck, no neck masses, Mallampati class IV, moist mucous membranes. No JVD no stridor. And no lymphadenopathy. CHEST: No chest wall deformity. Symmetrical expansion. LUNGS: Diminished breath sounds at the bases minimal crackles at the left base. CVS: Irregular irregular, bradycardic, 2/6 systolic murmur thought the precordium. ABDOMEN: Obese, Soft, nontender. No hepatosplenomegaly, normal bowel sounds, no guarding or rigidity. EXTREMITIES: No clubbing, 1+ bipedal edema, no cyanosis, 2+ pulses and upper and lower extremities. MUSCULOSKELETAL: Muscle strength and tone normal. SPINE: No scoliosis or deformity SKIN: No rashes CENTRAL NERVOUS SYSTEM: Alert oriented 3 no gross focal neurologic deficits.. PSYCHIATRIC: Normal mood, affect and normal mental status examination. - Labs CBC & Chem 7: 05/05/19 05:30 05/05/19 05:30 Labs: Abnormal Lab Results - Last 24 Hours (Table) 05/04/19 05/04/19 05/04/19 Range/Units 13:13 13:55 17:07 RBC (4.30-5.90) m/uL Hgb (13.0-17.5) gm/dL Hct (39.0-53.0) % MCV (80.0-100.0) fL MCHC (31.0-37.0) g/dL RDW (11.5-15.5) % Macrocytosis Sodium (137-145) mmol/L Potassium 5.8 H (3.5-5.1) mmol/L Chloride (98-107) mmol/L BUN (9-20) mg/dL Creatinine (0.66-1.25) mg/dL Glucose (74-99) mg/dL POC Glucose (mg/dL) 207 H 189 H (75-99) mg/dL Calcium (8.4-10.2) mg/dL TSH (0.465-4.680) mIU/L 05/04/19 05/04/19 05/04/19 Range/Units 17:34 20:28 21:33 RBC (4.30-5.90) m/uL Hgb (13.0-17.5) gm/dL Hct (39.0-53.0) % MCV (80.0-100.0) fL MCHC (31.0-37.0) g/dL RDW (11.5-15.5) % Macrocytosis Sodium (137-145) mmol/L Potassium 5.7 H 6.6 H* (3.5-5.1) mmol/L Chloride (98-107) mmol/L BUN (9-20) mg/dL Creatinine (0.66-1.25) mg/dL Glucose (74-99) mg/dL POC Glucose (mg/dL) 375 H (75-99) mg/dL Calcium (8.4-10.2) mg/dL TSH 8.240 H (0.465-4.680) mIU/L 05/05/19 05/05/19 05/05/19 Range/Units 05:30 05:30 06:52 RBC 2.81 L (4.30-5.90) m/uL Hgb 9.5 L (13.0-17.5) gm/dL Hct 31.7 L (39.0-53.0) % MCV 113.0 H (80.0-100.0) fL MCHC 29.9 L (31.0-37.0) g/dL RDW 16.5 H (11.5-15.5) % Macrocytosis Marked A Sodium 133 L (137-145) mmol/L Potassium 6.4 H* (3.5-5.1) mmol/L Chloride 96 L (98-107) mmol/L BUN 74 H (9-20) mg/dL Creatinine 7.70 H* (0.66-1.25) mg/dL Glucose 270 H (74-99) mg/dL POC Glucose (mg/dL) 282 H (75-99) mg/dL Calcium 8.0 L (8.4-10.2) mg/dL TSH (0.465-4.680) mIU/L 05/05/19 05/05/19 Range/Units 10:06 11:56 RBC (4.30-5.90) m/uL Hgb (13.0-17.5) gm/dL Hct (39.0-53.0) % MCV (80.0-100.0) fL MCHC (31.0-37.0) g/dL RDW (11.5-15.5) % Macrocytosis Sodium (137-145) mmol/L Potassium (3.5-5.1) mmol/L Chloride (98-107) mmol/L BUN (9-20) mg/dL Creatinine (0.66-1.25) mg/dL Glucose (74-99) mg/dL POC Glucose (mg/dL) 177 H 194 H (75-99) mg/dL Calcium (8.4-10.2) mg/dL TSH (0.465-4.680) mIU/L Assessment and Plan Assessment: Impression: bradycardia secondary to hyperkalemia secondary to chronic renal failure, status post hemodialysis yesterday, and he would have another hemodialysis today this morning End-stage renal disease, on hemodialysis. Chronic diastolic congestive heart failure and fluid overload secondary to renal failure. Coronary artery disease, followed by cardiology. Type 2 diabetes, insulin-dependent. Benign essential hypertension. Dyslipidemia. 2 morbid obesity. History of CVA in May of 2017. Obstructive sleep apnea syndrome, on BiPAP. Chronic atrial fibrillation. Recommendation: Hemodialysis again today. Agree with stopping Norvasc and cutting down on amiodarone. Echocardiogram is pending. Continue to monitor the patient in the ICU. Place on BiPAP at night. We'll continue to follow. Time with Patient: Less than 30
[2019-05-05 12:51] LABS: Hemoglobin A1C 7.6 % (4.0-6.0)
[2019-05-05 12:57] LABS: Glucose,Whole Blood 159 mg/dL (75-99)
[2019-05-05] MEDS ORDERED: amLODIPine 5 MG TAB PO PRN (13:00)
[2019-05-05] MEDS ORDERED: AMIODARONE 100 MG TAB PO SCH (13:00)
--- NOTE | 2019-05-05 16:25 | P.PN ---
Subjective Progress Note Date: 05/05/19 Mr. Mitchell is a well-known patient of several years, 77-year-old male presented to the hospital with a complaint of bradycardia known history of atrial fibrillation end-stage renal disease diabetes mellitus and dyslipidemia history of known peripheral vascular and patient gets hemodialysis Thursday and Thursday. Went to dialysis appointment today and was not performed because of the bradycardia patient was subsequently sent from dialysis to [facility] emergency room for evaluation and treatment patient was subsequently admitted he is on several meds has not been taking his amiodarone for several days at home they've been measuring patient's heart rate reports that between 30s and 100s patient is at time of admission denied complaints 05/05/2019 potassium 6.4, received hyperkalemic regimen and scheduled for hemodialysis today. This morning patient on BiPAP, became anxious, borderline hypotension with bradycardia, heart rate 30s to 40s with underlying atrial fibrillation/atrial flutter. Norvasc discontinued, amiodarone dose decreased. Echo ordered. Objective - Vital Signs Vital signs: Vital Signs Temp 96.3 F L 05/05/19 08:00 Pulse 44 L 05/05/19 10:00 Resp 11 L 05/05/19 10:00 BP 84/57 05/05/19 10:00 Pulse Ox 95 05/05/19 10:00 Intake & Output 05/04/19 05/05/19 05/05/19 18:59 06:59 18:59 Intake Total 120 890 80 Output Total 2250 0 0 Balance -2130 890 80 Weight 136.078 kg Intake: IV 120 240 80 Sodium Chloride 0.9% 1, 120 240 80 000 ml @ 20 mls/hr IV . Q24H [facility] Rx#:[id number] Oral 650 Output: Urine 0 0 Hemodialysis 2250 - Exam PHYSICAL EXAM: VITAL SIGNS: [As above] General: [Obese Patient awake, alert and oriented times 3,no acute distress.] HEENT: [PERRL. EOMI. No pharyngeal erythema or exudate.] Neck: [No adenopathy.] Gradually endarterectomy scar Cardiac: Irregular, irregular, bradycardic, systolic murmur] Lungs: bilateral bases diminished, occasional fine bibasilar crackles Abdomen: [No mass. No organomegaly. Bowel sounds presnt and normoactive in all 4 quadrants.] Extremes: [No edema no cyanosis no claudication normal pulses] dialysis access right arm Bilateral lower extreme diabetic ulcers in the healing process Skin: [No rash.] Neurologic: [No lateralizing deficits. CN II - XII grossly intact.] Lymphatic: [No adenopathy.] - Labs CBC & Chem 7: 05/05/19 05:30 05/05/19 05:30 Labs: Abnormal Lab Results - Last 24 Hours (Table) 05/04/19 05/04/19 05/04/19 Range/Units 10:00 13:13 13:55 WBC 13.3 H (3.8-10.6) k/uL RBC 2.99 L (4.30-5.90) m/uL Hgb 10.0 L (13.0-17.5) gm/dL Hct 32.8 L (39.0-53.0) % MCV 109.6 H (80.0-100.0) fL MCHC 30.5 L (31.0-37.0) g/dL RDW 16.3 H (11.5-15.5) % Neutrophils # (Manual) 11.80 H (1.3-7.7) k/uL Lymphocytes # (Manual) 0.67 L (1.0-4.8) k/uL Metamyelocytes # (Man) 0.13 H (0) k/uL Myelocytes # (Manual) 0.27 H (0) k/uL Macrocytosis Marked A Sodium (137-145) mmol/L Potassium 5.8 H (3.5-5.1) mmol/L Chloride (98-107) mmol/L BUN (9-20) mg/dL Creatinine (0.66-1.25) mg/dL Glucose (74-99) mg/dL POC Glucose (mg/dL) 207 H (75-99) mg/dL Calcium (8.4-10.2) mg/dL TSH (0.465-4.680) mIU/L 05/04/19 05/04/19 05/04/19 Range/Units 17:07 17:34 20:28 WBC (3.8-10.6) k/uL RBC (4.30-5.90) m/uL Hgb (13.0-17.5) gm/dL Hct (39.0-53.0) % MCV (80.0-100.0) fL MCHC (31.0-37.0) g/dL RDW (11.5-15.5) % Neutrophils # (Manual) (1.3-7.7) k/uL Lymphocytes # (Manual) (1.0-4.8) k/uL Metamyelocytes # (Man) (0) k/uL Myelocytes # (Manual) (0) k/uL Macrocytosis Sodium (137-145) mmol/L Potassium 5.7 H (3.5-5.1) mmol/L Chloride (98-107) mmol/L BUN (9-20) mg/dL Creatinine (0.66-1.25) mg/dL Glucose (74-99) mg/dL POC Glucose (mg/dL) 189 H 375 H (75-99) mg/dL Calcium (8.4-10.2) mg/dL TSH 8.240 H (0.465-4.680) mIU/L 05/04/19 05/05/19 05/05/19 Range/Units 21:33 05:30 05:30 WBC (3.8-10.6) k/uL RBC 2.81 L (4.30-5.90) m/uL Hgb 9.5 L (13.0-17.5) gm/dL Hct 31.7 L (39.0-53.0) % MCV 113.0 H (80.0-100.0) fL MCHC 29.9 L (31.0-37.0) g/dL RDW 16.5 H (11.5-15.5) % Neutrophils # (Manual) (1.3-7.7) k/uL Lymphocytes # (Manual) (1.0-4.8) k/uL Metamyelocytes # (Man) (0) k/uL Myelocytes # (Manual) (0) k/uL Macrocytosis Marked A Sodium 133 L (137-145) mmol/L Potassium 6.6 H* 6.4 H* (3.5-5.1) mmol/L Chloride 96 L (98-107) mmol/L BUN 74 H (9-20) mg/dL Creatinine 7.70 H* (0.66-1.25) mg/dL Glucose 270 H (74-99) mg/dL POC Glucose (mg/dL) (75-99) mg/dL Calcium 8.0 L (8.4-10.2) mg/dL TSH (0.465-4.680) mIU/L 05/05/19 05/05/19 Range/Units 06:52 10:06 WBC (3.8-10.6) k/uL RBC (4.30-5.90) m/uL Hgb (13.0-17.5) gm/dL Hct (39.0-53.0) % MCV (80.0-100.0) fL MCHC (31.0-37.0) g/dL RDW (11.5-15.5) % Neutrophils # (Manual) (1.3-7.7) k/uL Lymphocytes # (Manual) (1.0-4.8) k/uL Metamyelocytes # (Man) (0) k/uL Myelocytes # (Manual) (0) k/uL Macrocytosis Sodium (137-145) mmol/L Potassium (3.5-5.1) mmol/L Chloride (98-107) mmol/L BUN (9-20) mg/dL Creatinine (0.66-1.25) mg/dL Glucose (74-99) mg/dL POC Glucose (mg/dL) 282 H 177 H (75-99) mg/dL Calcium (8.4-10.2) mg/dL TSH (0.465-4.680) mIU/L Assessment and Plan Assessment: Stage renal disease dialysis dependent Acute bradycardia Chronic diastolic heart failure with diminished ejection fraction Known coronary artery disease Known hypertension Known dyslipidemia Morbid obesity CVA by history 2018 Obstructive sleep apnea by history Chronic atrial fibrillation Plan: Continue on current medication regime ,monitoring and symptomatic treatment. Antihypertensives adjusted as per cardiology, as mentioned above. Echo pending. Hemodialysis scheduled for today, pending. PT/OT. Significant bilateral upper extremity weakness, history of multiple falls, patient will require wheelchair for assistance. TSH 8.240, free T4 1.19, levothyroxine increased. Discussed at bedside with both patient and significant other, patient will need subacute rehab at discharge. The impression and plan of care has been dictated as directed. : I performed a history and examination of this patient, discussed the same with the dictator. I agree with the dictator's note ,documented as a scribe. Any additional findings or plans will be noted.
[2019-05-05] MEDS: ASPIRIN 81 MG PO SCH (16:26)
[2019-05-05] MEDS: FAMOTIDINE 20 MG TAB PO SCH (16:26)
[2019-05-05] MEDS: ISOSORBIDE MONONITRATE ER 30 MG TAB.ER.24H PO SCH (16:26)
[2019-05-05] MEDS: AMIODARONE 50 MG TAB PO SCH (16:26)
[2019-05-05] MEDS: Insulin Aspart (For Pump) 100 UNIT/ML VIAL SQ-PUMP SCH (16:27)
[2019-05-05] MEDS: SODIUM CHLORIDE 0.9% 1,000 ML IV SCH (16:27)
[2019-05-05 16:37] LABS: Glucose,Whole Blood 168 mg/dL (75-99)
--- NOTE | 2019-05-05 17:00 | ECHOF ---
Referral Reason:bradycardia MEASUREMENTS -------- HEIGHT: 175.3 cm WEIGHT: 136.1 kg BP: 112/72 IVSd: 1.5 cm (0.6 - 1.1) LVIDd: 4.3 cm (3.9 - 5.3) LVPWd: 1.7 cm (0.6 - 1.1) IVSs: 2.1 cm LVIDs: 3.3 cm LVPWs: 1.7 cm RVIDd: 4.8 cm (< 3.3) LAESV Index (A-L): 44.74 ml/m Ao Diam: 2.8 cm (2.0 - 3.7) AV Cusp: 1.6 cm (1.5 - 2.6) EPSS: 0.6 cm AV maxP.29 mmHg AV meanP.91 mmHg RAP: 5.00 mmHg RVSP: 46.74 mmHg MV EF SLOPE: 75.09 mm/s (70 - 150) MV EXCURSION: 12.25 mm (> 18.000) FINDINGS -------- Sinus rhythm. This was a technically difficult study with suboptimal views. Morbid Obesity Pt has severe COPD. Sitting up. The left ventricular size is normal. There is moderate concentric left ventricular hypertrophy. O verall left ventricular systolic function is mildly impaired with, an EF between 45 - 50 %. Mitral Doppler inflow pattern suggests diastolic filling abnormality {E/E'}. The right ventricle is moderate to severely enlarged. LA is severely dilated >40 ml/m2 The right atrium was not well visualized. 5.0mg of Lumason was utilized for enhancement of images Interatrial and interventricular septum intact. The aortic valve was not well visualized. There is no evidence of aortic regurgitation. There is mild aortic stenosis present. Peak/mean gradient across the Aortic Valve is 27.29mmHg / 11.91mmHg. The mitral valve was not well visualized. Mild mitral regurgitation is present. Moderate tricuspid regurgitation present. There is moderate pulmonary hypertension. The right yesenia tricular systolic pressure, as measured by Doppler, is 46.74mmHg. There is no pulmonic regurgitation present. The aortic root size is normal. IVC Not well visulized. There is no pericardial effusion. CONCLUSIONS -------- 1. Sinus rhythm. 2. This was a technically difficult study with suboptimal views. 3. Morbid Obesity 4. Pt has severe COPD. Sitting up. 5. The left ventricular size is normal. 6. There is moderate concentric left ventricular hypertrophy. 7. Overall left ventricular systolic function is mildly impaired with, an EF between 45 - 50 %. 8. Mitral Doppler inflow pattern suggest diastolic filling abnormality {E/E'}. 9. The right ventricle is moderate to severely enlarged. 10. LA is severely dilated >40 ml/m2 11. The right atrium was not well visualized. 12. 5.0mg of Lumason was utilized for enhancement of images 13. Interatrial and interventricular septum intact. 14. The aortic valve was not well visualized. 15. There is no evidence of aortic regurgitation. 16. There is mild aortic stenosis present. 17. Peak/mean gradient across the Aortic Valve is 27.29mmHg / 11.91mmHg. 18. The mitral valve was not well visualized. 19. Mild mitral regurgitation is present. 20. Moderate tricuspid regurgitation present. 21. There is moderate pulmonary hypertension. 22. The right ventricular systolic pressure, as measured by Doppler, is 46.74mmHg. 23. There is no pulmonic regurgitation present. 24. The aortic root size is normal. 25. IVC Not well visulized. 26. There is no pericardial effusion. PORTER BATH: Whitney Crystal RDCS
[2019-05-05] MEDS: ALLOPURINOL 100 MG TAB PO SCH (17:07)
[2019-05-05] MEDS: SULFAMETHOX-TMP 800-160MG 1 EACH TAB PO SCH (17:07)
[2019-05-05 20:30] LABS: Glucose,Whole Blood 281 mg/dL (75-99)
[2019-05-05] MEDS: PRAVASTATIN SODIUM 40 MG TAB PO SCH (21:31)
[2019-05-05] MEDS: INSULIN DETEMIR (LEVEMIR) 100 UNIT/ML SYR SQ SCH (21:32)
--- NOTE | 2019-05-05 22:32 | CONS ---
CONSULTATION REASON FOR CONSULT: End-stage renal disease. HISTORY OF PRESENT ILLNESS: Patient is a 78-year-old male with history of end-stage renal disease, on hemodialysis on a Thursday, , Thursday schedule. He was admitted to the hospital, as heart rate was noted to be low at dialysis and patient was significantly short of breath as well. His heart rate had been in the 30s and patient was found to be severely hyperkalemic when he came into the ER. Serum potassium was 7.2. Patient was dialyzed yesterday and then again this morning. We had about 2.2 L taken off yesterday and this morning we had 2.8 L again removed. Overall patient states he is feeling better. However, he still remains significantly volume-overloaded. Patient does have a history of noncompliance with fluid restrictions and diet as outpatient. No history of fever, cough, chills, nausea, vomiting or diarrhea. PAST MEDICAL HISTORY: Atrial fibrillation, coronary artery disease, CHF, CVA, TIA, type 2 diabetes, gastroesophageal reflux disease, hypertension, history of KS, obstructive sleep apnea, osteoarthritis, peripheral neuropathy, bilateral foot wounds, history of CVA with left leg weakness, carotid artery disease, history of right carotid endarterectomy, diverticulitis, history of cardiac arrest. PAST SURGICAL HISTORY: Cardiac ablation, cardiac catheterization, dialysis catheter placement, left arm AV fistula, cardioversions, right carotid endarterectomy, cataract surgeries, knee arthroscopies, right knee arthroplasty, bilateral hip arthroplasties, right carpal tunnel release. SOCIAL HISTORY: Negative for smoking, drug abuse or alcohol abuse. MEDICATIONS: Medications prior to admission included aspirin, Tylenol, isosorbide mononitrate, Nitrostat, Ambien, Ultram, zyloprim, PhosLo, vitamin D2, Pacerone, Eliquis, Colace, Pepcid, Synthroid, midodrine, MiraLAX, Pravachol, Lyrica, Bactrim, Flomax, Demadex, Norvasc, Requip. ALLERGIES: NONE. REVIEW OF SYSTEMS: As per HPI. Other systems negative. PHYSICAL EXAMINATION: On examination, patient is comfortable, awake, alert and oriented x3, not in any acute distress. Heart rate was about 60 per minute, blood pressure 112/67. Patient is afebrile. EXAMINATION OF THE HEART: S1 and S2. EXAMINATION OF LUNGS: Bilateral breath sounds are heard. ABDOMEN: Soft, non-tender. Examination of lower extremities shows edema 3+ bilaterally. Patient also has significant abdominal wall edema. He has morbid obesity as well. [employer] exam is grossly intact. LABS: Repeat potassium 5.3 today post dialysis. This morning it was 6.6. Sodium 133, creatinine 7.7, hemoglobin 9.5 g/dL. ASSESSMENT: 1. End-stage renal disease, on hemodialysis on a Thursday, , Thursday schedule. We will dialyze the patient again tomorrow for fluid overload. 2. Fluid overload, slowly improving. Patient remains significantly volume-overloaded. 3. Hyperkalemia, improved post dialysis. Patient is advised regarding dietary restrictions. 4. Acute hypoxic failure secondary to congestive heart failure, now improved. 5. Anemia of chronic disease. 6. History of coronary artery disease. 7. Osteoarthritis. 8. Chronic kidney disease mineral bone disorder. 9. Type 2 diabetes, uncontrolled. PLAN: Repeat hemodialysis in a.m. UF about 2 to 3 L as tolerated. MMODL / IJN: [id number] /
[2019-05-06] MEDS: ALBUTEROL NEBULIZED 2.5 MG/3 ML INHALATION PRN ×2 (02:58→07:34)
[2019-05-06 05:06] LABS: Anisocytosis Slight; HCT 30.1 % (39.0-53.0); HGB 9.2 gm/dL (13.0-17.5); Hypochromasia Moderate; MCH 34.2 pg (25.0-35.0); MCHC 30.5 g/dL (31.0-37.0); MCV 112.3 fL (80.0-100.0); Macrocytosis Marked; Mean Platelet Volume 9.4; Platelet Count 187 k/uL (150-450); RBC 2.68 m/uL (4.30-5.90); RDW 16.4 % (11.5-15.5); WBC 9.7 k/uL (3.8-10.6)
[2019-05-06 05:20] LABS: Calcium 8.5 mg/dL (8.4-10.2); Potassium 5.6 mmol/L (3.5-5.1)
[2019-05-06] MEDS: LEVOTHYROXINE 137 MCG TAB PO SCH (06:04)
[2019-05-06] MEDS: traMADol 50 MG TAB PO PRN (06:05)
[2019-05-06 06:55] LABS: Glucose,Whole Blood 236 mg/dL (75-99)
--- NOTE | 2019-05-06 07:00 | P.PN ---
Subjective Progress Note Date: 05/06/19 Principal diagnosis: Hypotension/sinus bradycardia This is a very pleasant 78-year-old gentleman was coronary artery disease, peripheral arterial disease, morbid obesity, hypertension, dyslipidemia, and into stage renal disease on dialysis, was referred from the dialysis center to the hospital for further evaluation of hypotension and bradycardia. The patient is known to have severe triple-vessel coronary artery disease which is diffuse and he refused to undergo revascularization. Also the patient does have peripheral arterial disease and carotid disease. Yesterday he went to have dialysis and before dialysis he was found to be hypotensive and bradycardic. His heart rate was in the 30s and 40s. His pressure was in the 90s. Because of that the patient was referred to the emergency department. According to him, he was completely asymptomatic and denies any chest pain or chest discomfort, dizziness, heart racing, or syncope. He was not feeling weak or tired. Beside that the blood work was performed and that came in to be abnormal with severe hyperkalemia and he was given Kayexalate and after that he underwent dialysis immediately. With the patient was seen this morning, he continues to be bradycardic with heart rate in the 30s and 40s and he is in underlying atrial fibrillation/atrial flutter. Currently he is on amiodarone at 100 mg by mouth daily. Also his pressure has been marginal and he is receiving Norvasc. I am going to DC the Norvasc at this point. I am going to decrease the dose of amiodarone to 50 mg by mouth daily. Continue monitor the heart rate. We will obtain an echocardiogram was Doppler. Nephrology and pulmonary are on the case as well. The chest x-ray did not show any acute abnormalities. The EKG showed underlying atrial fibrillation/atrial flutter with bradycardia. The patient was seen today, 05/06/2019. His pressure has improved. His heart rate has improved as well. Yesterday we did stop the Norvasc and with decrease the dose of amiodarone. He has been in atrial fibrillation/atrial flutter with heart rate in the 50s as well as in the 60s. He is on oral anticoagulation as well. His potassium has improved as well. The echo revealed mildly impaired LV function with mild valvular abnormalities. Objective - Vital Signs Vital signs: Vital Signs Temp 98.5 F 02/28/20 04:00 Pulse 47 L 05/06/19 06:00 Resp 18 05/06/19 06:00 BP 93/71 05/06/19 06:00 Pulse Ox 95 05/06/19 06:00 Intake & Output 05/05/19 05/05/19 05/06/19 06:59 18:59 06:59 Intake Total 890 560 360 Output Total 0 2800 80 Balance 890 -2240 280 Intake: IV 240 260 160 Sodium Chloride 0.9% 1, 240 260 160 000 ml @ 20 mls/hr IV . Q24H [facility] Rx#:[id number] Oral 650 200 Hemodialysis 300 Output: Urine 0 0 80 Hemodialysis 2800 Other: # Voids 0 1 - Constitutional General appearance: Present: no acute distress - Respiratory Respiratory: bilateral: diminished - Cardiovascular Rhythm: irregularly irregular Heart sounds: normal: S1, S2 Abnormal Heart Sounds: Present: systolic murmur - Labs CBC & Chem 7: 05/06/19 04:48 05/06/19 04:48 Labs: Abnormal Lab Results - Last 24 Hours (Table) 05/05/19 05/05/19 05/05/19 Range/Units 05:30 10:06 11:56 RBC (4.30-5.90) m/uL Hgb (13.0-17.5) gm/dL Hct (39.0-53.0) % MCV (80.0-100.0) fL MCHC (31.0-37.0) g/dL RDW (11.5-15.5) % Macrocytosis Sodium (137-145) mmol/L Potassium (3.5-5.1) mmol/L Chloride (98-107) mmol/L BUN (9-20) mg/dL Creatinine (0.66-1.25) mg/dL Glucose (74-99) mg/dL POC Glucose (mg/dL) 177 H 194 H (75-99) mg/dL Hemoglobin A1c 7.6 H (4.0-6.0) % 05/05/19 05/05/19 05/05/19 Range/Units 12:55 16:35 20:03 RBC (4.30-5.90) m/uL Hgb (13.0-17.5) gm/dL Hct (39.0-53.0) % MCV (80.0-100.0) fL MCHC (31.0-37.0) g/dL RDW (11.5-15.5) % Macrocytosis Sodium (137-145) mmol/L Potassium 5.3 H (3.5-5.1) mmol/L Chloride (98-107) mmol/L BUN (9-20) mg/dL Creatinine (0.66-1.25) mg/dL Glucose (74-99) mg/dL POC Glucose (mg/dL) 159 H 168 H (75-99) mg/dL Hemoglobin A1c (4.0-6.0) % 05/05/19 05/06/19 05/06/19 Range/Units 20:28 04:48 04:48 RBC 2.68 L (4.30-5.90) m/uL Hgb 9.2 L (13.0-17.5) gm/dL Hct 30.1 L (39.0-53.0) % MCV 112.3 H (80.0-100.0) fL MCHC 30.5 L (31.0-37.0) g/dL RDW 16.4 H (11.5-15.5) % Macrocytosis Marked A Sodium 134 L (137-145) mmol/L Potassium 5.6 H (3.5-5.1) mmol/L Chloride 94 L (98-107) mmol/L BUN 57 H (9-20) mg/dL Creatinine 6.55 H (0.66-1.25) mg/dL Glucose 225 H (74-99) mg/dL POC Glucose (mg/dL) 281 H (75-99) mg/dL Hemoglobin A1c (4.0-6.0) % 05/06/19 Range/Units 06:53 RBC (4.30-5.90) m/uL Hgb (13.0-17.5) gm/dL Hct (39.0-53.0) % MCV (80.0-100.0) fL MCHC (31.0-37.0) g/dL RDW (11.5-15.5) % Macrocytosis Sodium (137-145) mmol/L Potassium (3.5-5.1) mmol/L Chloride (98-107) mmol/L BUN (9-20) mg/dL Creatinine (0.66-1.25) mg/dL Glucose (74-99) mg/dL POC Glucose (mg/dL) 236 H (75-99) mg/dL Hemoglobin A1c (4.0-6.0) % Assessment and Plan Assessment: Assessment #1 bradycardia likely related to hyperkalemia as well as medication #2 margin the low blood pressure #3 long-standing persistent atrial fibrillation #4 coronary artery disease, known triple vessel #5 multiple comorbid conditions you Plan #1 continue the current medical regimen #2 continue the current dose of amiodarone #3 continue holding Norvasc #4 continue oral anticoagulation #5 the echocardiogram was reviewed #6 follow-up with the patient
--- NOTE | 2019-05-06 07:27 | XR ---
EXAMINATION TYPE: XR chest 1V portable DATE OF EXAM: 05/06/2019 COMPARISON: 05/05/2019 HISTORY: Shortness of breath TECHNIQUE: Single frontal view of the chest is obtained. FINDINGS: There is a retrocardiac opacity obscuring the left hemidiaphragm border. Remainder the aly gs are well aerated. Cardiomediastinal silhouette is again enlarged with the prior. No sizable pneumo thorax. No acute osseous pathology. Have a somewhat limited given patient body habitus. IMPRESSION: 1. Retrocardiac opacity may relate to a small pleural effusion and atelectasis or pneumonia in the pr oper clinical setting. 2. Enlarged cardiomediastinal silhouette although stable could relate to thoracic aortic aneurysm.
[2019-05-06] MEDS: INSULIN ASPART (NovoLOG) 100 UNIT/ML VIAL SQ SCH ×4 (07:28→21:47)
[2019-05-06] MEDS: SYMBICORT 160-4.5 MCG INHALER INHALATION SCH ×2 (07:34→19:05)
[2019-05-06] MEDS: TAMSULOSIN 0.4 MG CAP.ER.24H PO SCH ×2 (08:06→21:46)
[2019-05-06] MEDS: APIXABAN 2.5 MG TABLET PO SCH ×2 (08:06→21:46)
[2019-05-06] MEDS: CALCIUM ACETATE 667 MG TAB PO SCH ×4 (08:06→21:46)
[2019-05-06] MEDS: TORSEMIDE 20 MG TAB PO SCH (08:06)
[2019-05-06] MEDS: PREGABALIN 75 MG CAP PO SCH ×2 (08:06→21:46)
[2019-05-06 11:55] LABS: Glucose,Whole Blood 226 mg/dL (75-99)
[2019-05-06] MEDS ORDERED: INSULIN ASPART (NovoLOG) 100 UNIT/ML VIAL SQ ONE (12:01)
[2019-05-06] MEDS: SODIUM CHLORIDE 0.9% 1,000 ML IV SCH (12:03)
[2019-05-06] MEDS: AMIODARONE 50 MG TAB PO SCH (12:13)
[2019-05-06] MEDS: FAMOTIDINE 20 MG TAB PO SCH (12:13)
[2019-05-06] MEDS: ISOSORBIDE MONONITRATE ER 30 MG TAB.ER.24H PO SCH (12:13)
[2019-05-06] MEDS: ASPIRIN 81 MG PO SCH (12:13)
--- NOTE | 2019-05-06 12:41 | P.PN ---
Subjective Progress Note Date: 05/06/19 Principal diagnosis: Bradycardia secondary to hyperkalemia and chronic renal failure. This is a 78-year-old white male with history of multiple comorbidities including morbid obesity, chronic renal failure, on hemodialysis. He usually gets his dialysis on Thursday was done Thursday. Patient went today for his regular appointment for hemodialysis. And he was noted to be bradycardic. Patient had no symptoms whatsoever. However his heart rate was noted to dip down into the 30s and low 40s. He was not hypotensive. Hence the hemodialysis staff director the patient to go to the ER. Patient had mostly symptoms of weakness which is not unusual for him for the last few days. Patient was noted to have hyperkalemia, and profound bradycardia but no hemodynamic instability. I was notified about the patient admitted to the ICU. And I recommended immediate nephrology consultation, hemodialysis, and cardiology consultation. Patient was transferred to the ICU, and S1 as he arrived, that hemodialysis team was already in the ICU and initiated hemodialysis. Patient was feeling fine, he had no complaints except generally weak. Denies any headache blurred vision or dizzine ss denied any chest pain. Denied any shortness of breath although his chest x- ray was consistent with some component of fluid overload. But it was a sub- optimal quality because of his morbid obesity. And this was a portable chest x- ray. Reevaluated today on 05/05/19, patient remains in the ICU, developing hyperkalemia again although his potassium went down to 5.8 yesterday after dialysis. Today's potassium is up to 6.4 again. And he will be dialyzed again today. In the meantime he was seen by cardiology on consultation, and the dose of amiodarone was cut down. His Norvasc was discontinued. And he recommended echocardiogram with Doppler. Hemodynamically the patient seems to be stable, blood pressure is marginal. Denies any specific complaints, denies any shortness of breath. Plans are being made for dialysis again this morning. Patient was reevaluated today on 05/06/19, no active pulmonary issues. Heart rate has significantly improved. Blood pressures improved. Patient is doing well, and he is to have another hemodialysis today for slightly elevated potassium and chronic renal failure. His echocardiogram did reveal evidence of mildly impaired left ventricle. Clinically the patient is asymptomatic, and he'll be transferred out of the ICU today. Objective - Vital Signs Vital signs: Vital Signs Temp 97.5 F L 05/06/19 08:00 Pulse 53 L 05/06/19 11:00 Resp 15 05/06/19 11:00 BP 130/64 05/06/19 11:00 Pulse Ox 95 05/06/19 11:00 Intake & Output 05/05/19 05/06/19 05/06/19 18:59 06:59 18:59 Intake Total 560 360 0 Output Total 2800 80 0 Balance -2240 280 0 Intake: IV 260 160 0 Sodium Chloride 0.9% 1, 260 160 0 000 ml @ 20 mls/hr IV . Q24H [facility] Rx#:[id number] Oral 200 Hemodialysis 300 Output: Urine 0 80 0 Hemodialysis 2800 Other: # Voids 0 1 0 - Exam GENERAL EXAM: Obese, Alert, pleasant, 78-year-old white male, comfortable in no apparent distress. HEAD: Normocephalic/atraumatic. EENT: Short obese neck, no neck masses, Mallampati class IV, moist mucous membranes. No JVD no stridor. And no lymphadenopathy. CHEST: No chest wall deformity. Symmetrical expansion. LUNGS: Diminished breath sounds at the bases minimal crackles at the left base. CVS: Irregular irregular, bradycardic, 2/6 systolic murmur thought the precordium. ABDOMEN: Obese, Soft, nontender. No hepatosplenomegaly, normal bowel sounds, no guarding or rigidity. EXTREMITIES: No clubbing, 1+ bipedal edema, no cyanosis, 2+ pulses and upper and lower extremities. MUSCULOSKELETAL: Muscle strength and tone normal. SPINE: No scoliosis or deformity SKIN: No rashes CENTRAL NERVOUS SYSTEM: Alert oriented 3 no gross focal neurologic deficits.. PSYCHIATRIC: Normal mood, affect and normal mental status examination. - Labs CBC & Chem 7: 05/06/19 04:48 05/06/19 04:48 Labs: Abnormal Lab Results - Last 24 Hours (Table) 05/05/19 05/05/19 05/05/19 Range/Units 05:30 12:55 16:35 RBC (4.30-5.90) m/uL Hgb (13.0-17.5) gm/dL Hct (39.0-53.0) % MCV (80.0-100.0) fL MCHC (31.0-37.0) g/dL RDW (11.5-15.5) % Macrocytosis Sodium (137-145) mmol/L Potassium (3.5-5.1) mmol/L Chloride (98-107) mmol/L BUN (9-20) mg/dL Creatinine (0.66-1.25) mg/dL Glucose (74-99) mg/dL POC Glucose (mg/dL) 159 H 168 H (75-99) mg/dL Hemoglobin A1c 7.6 H (4.0-6.0) % 05/05/19 05/05/19 05/06/19 Range/Units 20:03 20:28 04:48 RBC 2.68 L (4.30-5.90) m/uL Hgb 9.2 L (13.0-17.5) gm/dL Hct 30.1 L (39.0-53.0) % MCV 112.3 H (80.0-100.0) fL MCHC 30.5 L (31.0-37.0) g/dL RDW 16.4 H (11.5-15.5) % Macrocytosis Marked A Sodium (137-145) mmol/L Potassium 5.3 H (3.5-5.1) mmol/L Chloride (98-107) mmol/L BUN (9-20) mg/dL Creatinine (0.66-1.25) mg/dL Glucose (74-99) mg/dL POC Glucose (mg/dL) 281 H (75-99) mg/dL Hemoglobin A1c (4.0-6.0) % 05/06/19 05/06/19 05/06/19 Range/Units 04:48 06:53 11:54 RBC (4.30-5.90) m/uL Hgb (13.0-17.5) gm/dL Hct (39.0-53.0) % MCV (80.0-100.0) fL MCHC (31.0-37.0) g/dL RDW (11.5-15.5) % Macrocytosis Sodium 134 L (137-145) mmol/L Potassium 5.6 H (3.5-5.1) mmol/L Chloride 94 L (98-107) mmol/L BUN 57 H (9-20) mg/dL Creatinine 6.55 H (0.66-1.25) mg/dL Glucose 225 H (74-99) mg/dL POC Glucose (mg/dL) 236 H 226 H (75-99) mg/dL Hemoglobin A1c (4.0-6.0) % Assessment and Plan Assessment: Impression: bradycardia secondary to hyperkalemia secondary to chronic renal failure, status post hemodialysis in the last 2 days, and he would have another hemodialysis today. End-stage renal disease, on hemodialysis. Chronic diastolic congestive heart failure and fluid overload secondary to renal failure. Coronary artery disease, followed by cardiology. Type 2 diabetes, insulin-dependent. Benign essential hypertension. Dyslipidemia. 2 morbid obesity. History of CVA in May of 2017. Obstructive sleep apnea syndrome, on BiPAP. Chronic atrial fibrillation. Recommendation: Hemodialysis again today. Transfer patient out of the ICU to a regular medical floor with telemetry.. Continue BiPAP at night. We'll sign off and see the patient on when necessary basis. Time with Patient: Less than 30
--- NOTE | 2019-05-06 12:51 | P.PN ---
Subjective Progress Note Date: 05/06/19 Mr. Mitchell is a well-known patient of several years, 77-year-old male presented to the hospital with a complaint of bradycardia known history of atrial fibrillation end-stage renal disease diabetes mellitus and dyslipidemia history of known peripheral vascular and patient gets hemodialysis Thursday and Thursday. Went to dialysis appointment today and was not performed because of the bradycardia patient was subsequently sent from dialysis to [facility] emergency room for evaluation and treatment patient was subsequently admitted he is on several meds has not been taking his amiodarone for several days at home they've been measuring patient's heart rate reports that between 30s and 100s patient is at time of admission denied complaints 05/05/2019 potassium 6.4, received hyperkalemic regimen and scheduled for hemodialysis today. This morning patient on BiPAP, became anxious, borderline hypotension with bradycardia, heart rate 30s to 40s with underlying atrial fibrillation/atrial flutter. Norvasc discontinued, amiodarone dose decreased. Echo ordered. 05/06/2019 maintained on BiPAP at night. Potassium 5.6, scheduled for hemodialysis today. PT evaluation in progress. Echo reporting, impaired LV function, EF 45-50% , moderate tricuspid regurgitation, moderate pulmonary hypertension. Norvasc discontinued yesterday in addition to amiodarone dose decreased, with significant improvement .Telemetry atrial flutter fib/flutter, heart rate in the 50s to 60s. Objective - Vital Signs Vital signs: Vital Signs Temp 97.5 F L 05/06/19 08:00 Pulse 53 L 05/06/19 11:00 Resp 15 05/06/19 11:00 BP 130/64 05/06/19 11:00 Pulse Ox 95 05/06/19 11:00 Intake & Output 05/05/19 05/06/19 05/06/19 18:59 06:59 18:59 Intake Total 560 360 0 Output Total 2800 80 0 Balance -2240 280 0 Intake: IV 260 160 0 Sodium Chloride 0.9% 1, 260 160 0 000 ml @ 20 mls/hr IV . Q24H [facility] Rx#:[id number] Oral 200 Hemodialysis 300 Output: Urine 0 80 0 Hemodialysis 2800 Other: # Voids 0 1 0 - Exam PHYSICAL EXAM: VITAL SIGNS: [As above] General: [Obese Patient awake, alert and oriented times 3,no acute distress.] HEENT: [PERRL. EOMI. No pharyngeal erythema or exudate.] Neck: [No adenopathy.] Gradually endarterectomy scar Cardiac: Irregular, irregular, bradycardic, systolic murmur] Lungs: bilateral bases diminished, occasional fine bibasilar crackles Abdomen: [No mass. No organomegaly. Bowel sounds presnt and normoactive in all 4 quadrants.] Extremes: [No edema no cyanosis no claudication normal pulses] dialysis access right arm Bilateral lower extreme diabetic ulcers in the healing process Skin: [No rash.] Neurologic: [No lateralizing deficits. CN II - XII grossly intact.] Lymphatic: [No adenopathy.] - Labs CBC & Chem 7: 05/06/19 04:48 05/06/19 04:48 Labs: Abnormal Lab Results - Last 24 Hours (Table) 05/05/19 05/05/19 05/05/19 Range/Units 05:30 12:55 16:35 RBC (4.30-5.90) m/uL Hgb (13.0-17.5) gm/dL Hct (39.0-53.0) % MCV (80.0-100.0) fL MCHC (31.0-37.0) g/dL RDW (11.5-15.5) % Macrocytosis Sodium (137-145) mmol/L Potassium (3.5-5.1) mmol/L Chloride (98-107) mmol/L BUN (9-20) mg/dL Creatinine (0.66-1.25) mg/dL Glucose (74-99) mg/dL POC Glucose (mg/dL) 159 H 168 H (75-99) mg/dL Hemoglobin A1c 7.6 H (4.0-6.0) % 05/05/19 05/05/19 05/06/19 Range/Units 20:03 20:28 04:48 RBC 2.68 L (4.30-5.90) m/uL Hgb 9.2 L (13.0-17.5) gm/dL Hct 30.1 L (39.0-53.0) % MCV 112.3 H (80.0-100.0) fL MCHC 30.5 L (31.0-37.0) g/dL RDW 16.4 H (11.5-15.5) % Macrocytosis Marked A Sodium (137-145) mmol/L Potassium 5.3 H (3.5-5.1) mmol/L Chloride (98-107) mmol/L BUN (9-20) mg/dL Creatinine (0.66-1.25) mg/dL Glucose (74-99) mg/dL POC Glucose (mg/dL) 281 H (75-99) mg/dL Hemoglobin A1c (4.0-6.0) % 05/06/19 05/06/19 05/06/19 Range/Units 04:48 06:53 11:54 RBC (4.30-5.90) m/uL Hgb (13.0-17.5) gm/dL Hct (39.0-53.0) % MCV (80.0-100.0) fL MCHC (31.0-37.0) g/dL RDW (11.5-15.5) % Macrocytosis Sodium 134 L (137-145) mmol/L Potassium 5.6 H (3.5-5.1) mmol/L Chloride 94 L (98-107) mmol/L BUN 57 H (9-20) mg/dL Creatinine 6.55 H (0.66-1.25) mg/dL Glucose 225 H (74-99) mg/dL POC Glucose (mg/dL) 236 H 226 H (75-99) mg/dL Hemoglobin A1c (4.0-6.0) % Assessment and Plan Assessment: Stage renal disease dialysis dependent Acute bradycardia Chronic diastolic heart failure with diminished ejection fraction Known coronary artery disease Known hypertension Known dyslipidemia Morbid obesity CVA by history 2018 Obstructive sleep apnea by history Chronic atrial fibrillation Plan: Continue on current medication regime ,monitoring and symptomatic treatment. Scheduled for transfer out of ICU. Hemodialysis scheduled for today. PT/OT. Patient and significant other in agreement for subacute rehab at discharge. The impression and plan of care has been dictated as directed. : I performed a history and examination of this patient, discussed the same with the dictator. I agree with the dictator's note ,documented as a scribe. Any additional findings or plans will be noted.
--- NOTE | 2019-05-06 12:55 | CDI ---
Documentation Clarification Form Date: 05/06/2019 12:46:51 PM From: Nguyen Glass CCS, CCDS Admit Date: 05/04/2019 11:44:00 AM Patient Name: Mo Mitchell Visit Number: [id number] Discharge Date: ATTENTION: The Clinical Documentation Specialists (CDI) and [facility] Coding Staff appreciate your assistance in clarifying documentation. Please respond to the clarification below the line at the bottom and electronically sign. The CDI & [facility] Coding staff will review the response and follow-up if needed. Please note: Queries are made part of the Legal Health Record. If you have any questions, please contact the author of this message via ITS. Dr. Denise Peter: The patient has diabetes, as indicated in the Nephrology Consult dated 05/05: Type 2 diabetes, uncontrolled, not further specified. History/Risk Factors: ESRD on Hemodialysis, Atrial fibrillation, IDDM II with Insulin pump, Diabetic neuropathy shaka legs & feet, Hyperlipidemia, CAD, CHF, CVA, GERD, OH, OA, Sleep apnea & PVD. Clinical Indicators: Presented to the ED on 05/04 with low heart rate during dialysis appointment, dialysis not performed due to bradycardia, HR in 30s, directed to the ED. LAB: Glucose 05/04: 237^, 05/05: 282^, 05/06: 236^ Treatment on admission 05/04: IV Atropine, INH Albuterol, IV Dextrose/Water 250 mls @ 999 mls/hr, IV Insulin, IV Calcium Gluconate, Hemodialysis. In order to capture the severity of Illness and necessary documentation specificity, please clarify: DM II with Hyperglycemia Other, please specify Unable to Determine (Last Revision: December 2016) type 2 DM with hyperglycemia MTDD
[2019-05-06] MEDS: MIDODRINE 5 MG TAB PO PRN (13:41)
[2019-05-06] MEDS: Insulin Aspart (For Pump) 100 UNIT/ML VIAL SQ-PUMP SCH (14:39)
--- NOTE | 2019-05-06 16:42 | PN ---
PROGRESS NOTE Patient is seen for followup for end-stage renal disease. He was admitted with severe hyperkalemia causing bradycardia and he also had significant fluid overload. Patient has been dialyzed 2 days in a row and he is scheduled for hemodialysis again today, as he remains significantly volume-overloaded. There is history of noncompliance with fluids and dietary intake prior to admission. PHYSICAL EXAMINATION: On examination today, blood pressure was 130/64, heart rate 53 per minute. Patient is afebrile. EXAMINATION OF THE HEART: S1 and S2. EXAMINATION OF LUNGS: Bilateral breath sounds are heard. ABDOMEN: Soft, non-tender. Obese. Examination of lower extremities shows edema 3+ bilaterally. Chronic skin changes. JANITOR CUSTODIAN exam is grossly intact. LABS: Labs show sodium 134, potassium 5.6, chloride 94, BUN 57, serum creatinine 6.5, hemoglobin 9.2 g/dL. ASSESSMENT: 1. End-stage renal disease, on hemodialysis on a Thursday, , Thursday schedule, status post 3 consecutive treatments for volume overload and hyperkalemia. Patient will be dialyzed today and then again in a.m., which is his regular day tomorrow. We did have issues with the clinic water and therefore the patient could not run on Thursday; however, it was too long for him to wait until Thursday, and he was admitted to the hospital. 2. Hyperkalemia associated with end-stage renal disease, now improved post dialysis. Patient is advised regarding dietary compliance with avoiding high-potassium- containing foods as well as controlling his blood sugar, since that remains uncontrolled, potentiating the hyperkalemia. 3. Hypertension, partly volume-sensitive. 4. Bradycardia secondary to hyperkalemia, now resolved. 5. Chronic kidney disease mineral bone disorder, maintained on PhosLo. 6. Benign prostatic hypertrophy, currently on Flomax. PLAN: Hemodialysis today and then again in a.m., which is his regular day. MMODL / IJN: [id number] /
[2019-05-06 17:07] LABS: Glucose,Whole Blood 107 mg/dL (75-99)
[2019-05-06] MEDS: ALLOPURINOL 100 MG TAB PO SCH (17:32)
[2019-05-06] MEDS: SULFAMETHOX-TMP 800-160MG 1 EACH TAB PO SCH (17:32)
[2019-05-06 20:40] LABS: Glucose,Whole Blood 261 mg/dL (75-99)
[2019-05-06] MEDS: PRAVASTATIN SODIUM 40 MG TAB PO SCH (21:46)
[2019-05-06] MEDS: INSULIN DETEMIR (LEVEMIR) 100 UNIT/ML SYR SQ SCH (21:54)
[2019-05-07] MEDS: LEVOTHYROXINE 137 MCG TAB PO SCH (06:00)
[2019-05-07 06:28] LABS: Anisocytosis Slight; HCT 29.5 % (39.0-53.0); HGB 9.1 gm/dL (13.0-17.5); Hypochromasia Moderate; MCHC 30.7 g/dL (31.0-37.0); MCV 110.6 fL (80.0-100.0); Mean Platelet Volume 8.9; Platelet Count 157 k/uL (150-450); RBC 2.67 m/uL (4.30-5.90); RDW 16.3 % (11.5-15.5); WBC 7.3 k/uL (3.8-10.6)
[2019-05-07 06:32] LABS: Macrocytosis Marked
[2019-05-07 06:40] LABS: Calcium 8.7 mg/dL (8.4-10.2); Potassium 5.2 mmol/L (3.5-5.1)
[2019-05-07 07:07] LABS: Glucose,Whole Blood 144 mg/dL (75-99)
[2019-05-07] MEDS: PREGABALIN 75 MG CAP PO SCH ×2 (07:41→20:56)
[2019-05-07] MEDS: APIXABAN 2.5 MG TABLET PO SCH ×2 (07:43→20:56)
[2019-05-07] MEDS: TAMSULOSIN 0.4 MG CAP.ER.24H PO SCH ×2 (07:43→20:55)
[2019-05-07] MEDS: CALCIUM ACETATE 667 MG TAB PO SCH ×4 (07:43→20:56)
[2019-05-07] MEDS: INSULIN ASPART (NovoLOG) 100 UNIT/ML VIAL SQ SCH ×4 (07:44→20:55)
[2019-05-07] MEDS: TORSEMIDE 20 MG TAB PO SCH (07:44)
[2019-05-07] MEDS: MIDODRINE 5 MG TAB PO PRN (07:50)
[2019-05-07] MEDS: SYMBICORT 160-4.5 MCG INHALER INHALATION SCH ×2 (08:29→19:34)
[2019-05-07] MEDS: ALBUTEROL NEBULIZED 2.5 MG/3 ML INHALATION PRN ×3 (08:29→15:58)
--- NOTE | 2019-05-07 09:20 | P.PN ---
Subjective Progress Note Date: 05/07/19 The patient was examined this morning resting comfortably in bed. He is currently undergoing bedside dialysis. He denies any chest pain, chest pressure, palpitations, dyspnea, dizziness, or vertigo. He does have some discomfort in his left foot due to a chronic wound. Echocardiogram shows LV function of 45-50% with grade 2 diastolic dysfunction, mild aortic stenosis, mild mitral regurgitation, moderate tricuspid regurgitation, and moderate pulmonary hypertension GENERAL: Well-appearing, well-nourished and in no acute distress. NECK: Supple without JVD or thyromegaly. LUNGS: Breath sounds clear to auscultation bilaterally. Respiration equal and unlabored. No wheezes, rales or rhonchi. HEART: Irregular rate and rhythm. Systolic murmur. No, rubs or gallops. S1 and S2 heard. EXTREMITIES: Normal range of motion. +2 lower extremity pitting edema. No clubbing or cyanosis. Lower extremity wound on left lateral foot, currently dressed. Vitals: Blood pressure this morning 89/41, currently undergoing dialysis. Telemetry strips reviewed from overnight showing atrial flutter with average heart rates in the 60s. Pulse ox greater than 93% on 5 L nasal cannula. Afebrile Impression: #1 bradycardia, likely related to hyperkalemia medication, improving #2 hypotension #3 typical atrial flutter #4 end-stage renal disease, currently on dialysis #5 coronary artery disease #6 cardiomyopathy, unspecified Plan: Discontinue amiodarone. No additional recommendations at this time. We'll continue to monitor. Objective - Vital Signs Vital signs: Vital Signs Temp 98 F 05/07/19 08:01 Pulse 68 05/07/19 08:46 Resp 18 05/07/19 08:01 BP 89/41 05/07/19 08:01 Pulse Ox 94 L 05/07/19 08:34 Intake & Output 05/06/19 05/07/19 05/07/19 18:59 06:59 18:59 Intake Total 0 Output Total 1999 Balance -1999 Weight 138 kg Intake: IV 0 Sodium Chloride 0.9% 1, 0 000 ml @ 20 mls/hr IV . Q24H [facility] Rx#:[id number] Output: Urine 0 Hemodialysis 1999 Other: # Voids 0 - Labs CBC & Chem 7: 05/07/19 05:59 05/07/19 05:59 Labs: Abnormal Lab Results - Last 24 Hours (Table) 05/06/19 05/06/19 05/06/19 Range/Units 11:54 17:05 20:39 RBC (4.30-5.90) m/uL Hgb (13.0-17.5) gm/dL Hct (39.0-53.0) % MCV (80.0-100.0) fL MCHC (31.0-37.0) g/dL RDW (11.5-15.5) % Macrocytosis Sodium (137-145) mmol/L Potassium (3.5-5.1) mmol/L Chloride (98-107) mmol/L BUN (9-20) mg/dL Creatinine (0.66-1.25) mg/dL Glucose (74-99) mg/dL POC Glucose (mg/dL) 226 H 107 H 261 H (75-99) mg/dL 05/07/19 05/07/19 05/07/19 Range/Units 05:59 05:59 07:05 RBC 2.67 L (4.30-5.90) m/uL Hgb 9.1 L (13.0-17.5) gm/dL Hct 29.5 L (39.0-53.0) % MCV 110.6 H (80.0-100.0) fL MCHC 30.7 L (31.0-37.0) g/dL RDW 16.3 H (11.5-15.5) % Macrocytosis Marked A Sodium 135 L (137-145) mmol/L Potassium 5.2 H (3.5-5.1) mmol/L Chloride 95 L (98-107) mmol/L BUN 51 H (9-20) mg/dL Creatinine 6.39 H (0.66-1.25) mg/dL Glucose 130 H (74-99) mg/dL POC Glucose (mg/dL) 144 H (75-99) mg/dL
[2019-05-07 11:21] LABS: Glucose,Whole Blood 133 mg/dL (75-99)
--- NOTE | 2019-05-07 12:13 | P.PN ---
Subjective Progress Note Date: 05/07/19 Principal diagnosis: Patient was recently admitted for severe hyperkalemia causing bradycardia and significant fluid overload. His been dialyzed 3 O patient's been significantly fatigued from this. Secondary to significant volume overload issue and is quite noncompliant on foods and dietary intake. He basically eats and drinks A wants despite admonition by both nephrology and his primary care doctor's. Today patient's awake alert fatigued. Vitals are stable patient afebrile O2 sats 94% on 4l Status post hyperkalemia resolved with dialysis and Kayexalate, he has become more alert appetite improved. As patient's fluid status improves anticipate discharge to [facility] rehab, as this patient's history, quite weak and is too much for 1 person to handle on their own Objective - Vital Signs Vital signs: Vital Signs Temp 98 F 05/07/19 08:01 Pulse 68 05/07/19 11:36 Resp 18 05/07/19 08:01 BP 89/41 05/07/19 08:01 Pulse Ox 94 L 05/07/19 08:34 Intake & Output 05/06/19 05/07/19 05/07/19 18:59 06:59 18:59 Intake Total 0 Output Total 1999 Balance -1999 Weight 138 kg Intake: IV 0 Sodium Chloride 0.9% 1, 0 000 ml @ 20 mls/hr IV . Q24H [facility] Rx#:[id number] Output: Urine 0 Hemodialysis 1999 Other: # Voids 0 - Exam General: [Patient awake, alert and oriented times 3. Patient in no acute distress.] Carotid endarterectomy scar on the right HEENT: [PERRL. EOMI. No pharyngeal erythema or exudate.] Neck: [No adenopathy.] Cardiac: [Heart regular in rate and rhythm. No S3. No S4. No clicks, rubs. No murmur.] Lungs: [Clear to auscultation bilaterally.] Abdomen: [No mass. No organomegaly. Bowel sounds presnt and normoactive in all 4 quadrants.] Dialysis access on the left arm Extremes: [No edema no cyanosis no claudication normal pulses] : [] Musculoskeletal: [No joint erythema, edema or tenderness.] Skin: [No rash.] Neurologic: [No lateralizing deficits. CN II - XII grossly intact.] Lymphatic: [No adenopathy.] - Labs CBC & Chem 7: 05/07/19 05:59 05/07/19 05:59 Labs: Abnormal Lab Results - Last 24 Hours (Table) 05/06/19 05/06/19 05/06/19 Range/Units 11:54 17:05 20:39 RBC (4.30-5.90) m/uL Hgb (13.0-17.5) gm/dL Hct (39.0-53.0) % MCV (80.0-100.0) fL MCHC (31.0-37.0) g/dL RDW (11.5-15.5) % Macrocytosis Sodium (137-145) mmol/L Potassium (3.5-5.1) mmol/L Chloride (98-107) mmol/L BUN (9-20) mg/dL Creatinine (0.66-1.25) mg/dL Glucose (74-99) mg/dL POC Glucose (mg/dL) 226 H 107 H 261 H (75-99) mg/dL 05/07/19 05/07/19 05/07/19 Range/Units 05:59 05:59 07:05 RBC 2.67 L (4.30-5.90) m/uL Hgb 9.1 L (13.0-17.5) gm/dL Hct 29.5 L (39.0-53.0) % MCV 110.6 H (80.0-100.0) fL MCHC 30.7 L (31.0-37.0) g/dL RDW 16.3 H (11.5-15.5) % Macrocytosis Marked A Sodium 135 L (137-145) mmol/L Potassium 5.2 H (3.5-5.1) mmol/L Chloride 95 L (98-107) mmol/L BUN 51 H (9-20) mg/dL Creatinine 6.39 H (0.66-1.25) mg/dL Glucose 130 H (74-99) mg/dL POC Glucose (mg/dL) 144 H (75-99) mg/dL 05/07/19 Range/Units 11:19 RBC (4.30-5.90) m/uL Hgb (13.0-17.5) gm/dL Hct (39.0-53.0) % MCV (80.0-100.0) fL MCHC (31.0-37.0) g/dL RDW (11.5-15.5) % Macrocytosis Sodium (137-145) mmol/L Potassium (3.5-5.1) mmol/L Chloride (98-107) mmol/L BUN (9-20) mg/dL Creatinine (0.66-1.25) mg/dL Glucose (74-99) mg/dL POC Glucose (mg/dL) 133 H (75-99) mg/dL Assessment and Plan (1) Bradycardia Current Visit: Yes Status: Acute Code(s): R00.1 - BRADYCARDIA, UNSPECIFIED SNOMED Code(s): 91311769 (2) Hyperkalemia Current Visit: Yes Status: Acute Code(s): E87.5 - HYPERKALEMIA SNOMED Code(s): 11190542 (3) Weakness Current Visit: Yes Status: Acute Code(s): R53.1 - WEAKNESS SNOMED Code(s): 74351098 (4) MIGUEL (acute kidney injury) Current Visit: No Status: Acute Code(s): N17.9 - ACUTE KIDNEY FAILURE, UNSPECIFIED SNOMED Code(s): 71635269 Plan: Stage renal disease dialysis dependent Acute bradycardia is all Chronic diastolic heart failure with diminished ejection fraction Known coronary artery disease Known hypertension Known dyslipidemia Morbid obesity CVA by history 2018 Obstructive sleep apnea by history Chronic atrial fibrillation Plan Hemodialysis 3 days in a row Critical care consultation Cardiology consultation Hyperkalemia corrected Resume home meds Patient's on BiPAP at night reevaluate in the morning Anticipate discharge to rehab tomorrow Time with Patient: Greater than 30
--- NOTE | 2019-05-07 14:05 | P.PN ---
Subjective Progress Note Date: 05/07/19 Follow for ESRD. Objective - Vital Signs Vital signs: Vital Signs Temp 97.7 F 05/07/19 13:20 Pulse 69 05/07/19 13:20 Resp 16 05/07/19 13:20 BP 96/61 05/07/19 13:20 Pulse Ox 94 L 05/07/19 08:34 Intake & Output 05/06/19 05/07/19 05/07/19 18:59 06:59 18:59 Intake Total 0 600 Output Total 1999 1899 Balance -1999 -1299 Weight 138 kg Intake: IV 0 Sodium Chloride 0.9% 1, 0 000 ml @ 20 mls/hr IV . Q24H JOSÉ MIGUEL Rx#:[id number] Hemodialysis 600 Output: Urine 0 Hemodialysis 1999 1899 Other: # Voids 0 - Exam No acute distress walking in the room. S1-S2 heard Lungs clear Left upper arm AVG Edema - Labs CBC & Chem 7: 05/07/19 05:59 05/07/19 05:59 Labs: Abnormal Lab Results - Last 24 Hours (Table) 05/06/19 05/06/19 05/07/19 Range/Units 17:05 20:39 05:59 RBC 2.67 L (4.30-5.90) m/uL Hgb 9.1 L (13.0-17.5) gm/dL Hct 29.5 L (39.0-53.0) % MCV 110.6 H (80.0-100.0) fL MCHC 30.7 L (31.0-37.0) g/dL RDW 16.3 H (11.5-15.5) % Macrocytosis Marked A Sodium (137-145) mmol/L Potassium (3.5-5.1) mmol/L Chloride (98-107) mmol/L BUN (9-20) mg/dL Creatinine (0.66-1.25) mg/dL Glucose (74-99) mg/dL POC Glucose (mg/dL) 107 H 261 H (75-99) mg/dL 05/07/19 05/07/19 05/07/19 Range/Units 05:59 07:05 11:19 RBC (4.30-5.90) m/uL Hgb (13.0-17.5) gm/dL Hct (39.0-53.0) % MCV (80.0-100.0) fL MCHC (31.0-37.0) g/dL RDW (11.5-15.5) % Macrocytosis Sodium 135 L (137-145) mmol/L Potassium 5.2 H (3.5-5.1) mmol/L Chloride 95 L (98-107) mmol/L BUN 51 H (9-20) mg/dL Creatinine 6.39 H (0.66-1.25) mg/dL Glucose 130 H (74-99) mg/dL POC Glucose (mg/dL) 144 H 133 H (75-99) mg/dL Assessment and Plan Assessment: #1 recurrent hyperkalemia suspect Bactrim, rule out recirculation #2 ESRD on hemodialysis TTS schedule #3 volume overload #4 hypotension on midodrine #5 anemia with ESRD #6 metabolic bone disease with ESRD Plan: #1 had full treatment today. Plan next treatment on Thursday. #2 consider stopping Bactrim, replacing with an alternative antibiotic #3 get vascular surgery consultation for an angiogram to rule out stenosis
[2019-05-07] MEDS: ISOSORBIDE MONONITRATE ER 30 MG TAB.ER.24H PO SCH (14:31)
[2019-05-07] MEDS: FAMOTIDINE 20 MG TAB PO SCH (14:31)
[2019-05-07] MEDS: ASPIRIN 81 MG PO SCH (14:31)
[2019-05-07] MEDS: Insulin Aspart (For Pump) 100 UNIT/ML VIAL SQ-PUMP SCH (15:03)
[2019-05-07] MEDS: ALLOPURINOL 100 MG TAB PO SCH (17:09)
[2019-05-07] MEDS: SULFAMETHOX-TMP 800-160MG 1 EACH TAB PO SCH (17:09)
[2019-05-07] MEDS: DOCUSATE 100 MG CAP PO PRN (17:10)
[2019-05-07 17:31] LABS: Glucose,Whole Blood 234 mg/dL (75-99)
[2019-05-07] MEDS: SODIUM CHLORIDE 0.9% 1,000 ML IV SCH (19:13)
[2019-05-07] MEDS ORDERED: SODIUM CHLORIDE 0.9% 500 ML 250 ML IV ONE (19:37)
[2019-05-07 20:05] LABS: Glucose,Whole Blood 263 mg/dL (75-99)
[2019-05-07] MEDS: PRAVASTATIN SODIUM 40 MG TAB PO SCH (20:55)
[2019-05-07] MEDS: INSULIN DETEMIR (LEVEMIR) 100 UNIT/ML SYR SQ SCH (20:55)
[2019-05-07] MEDS: SODIUM CHLORIDE 0.9% 500 ML IV SCH (20:56)
[2019-05-08] MEDS: traMADol 50 MG TAB PO PRN ×2 (01:02→20:09)
[2019-05-08] MEDS: SODIUM CHLORIDE 0.9% 500 ML IV SCH (03:54)
[2019-05-08 07:28] LABS: Glucose,Whole Blood 158 mg/dL (75-99)
[2019-05-08] MEDS: ALBUTEROL NEBULIZED 2.5 MG/3 ML INHALATION PRN ×2 (07:57→11:35)
[2019-05-08] MEDS: SYMBICORT 160-4.5 MCG INHALER INHALATION SCH ×2 (07:57→19:06)
--- NOTE | 2019-05-08 10:47 | P.PN ---
Subjective Progress Note Date: 05/08/19 05/07/2019 The patient was examined this morning resting comfortably in bed. He is currently undergoing bedside dialysis. He denies any chest pain, chest pressure, palpitations, dyspnea, dizziness, or vertigo. He does have some discomfort in his left foot due to a chronic wound. Echocardiogram shows LV function of 45-50% with grade 2 diastolic dysfunction, mild aortic stenosis, mild mitral regurgitation, moderate tricuspid regurgitation, and moderate pulmonary hypertension. Amiodarone was discontinued. 05/08/2019 The patient was examined this morning sitting up in the recliner. He states he is doing well. He continues to have some mild discomfort in his left foot. He denies any chest pain, chest pressure, palpitations, dyspnea, dizziness, or vertigo. Overnight according to nursing staff he did drop his heart rate into the high 30s, with some concern for third-degree heart block. He is clearly in atrial flutter with 2-1 and 3-1 conduction. GENERAL: Well-appearing, well-nourished and in no acute distress. NECK: Supple without JVD or thyromegaly. LUNGS: Breath sounds clear to auscultation bilaterally. Respiration equal and unlabored. No wheezes, rales or rhonchi. HEART: Irregular rate and rhythm. Systolic murmur. No, rubs or gallops. S1 and S2 heard. EXTREMITIES: Normal range of motion. +2 lower extremity pitting edema. No clubbing or cyanosis. Lower extremity wound on left lateral foot, currently dressed. Vitals: Blood pressure 116/66, heart rate 54, 97.9 Fahrenheit, respirations 19, 94% on 5 L nasal cannula Impression: #1 bradycardia, likely related to hyperkalemia medication, improving #2 hypotension #3 typical atrial flutter #4 end-stage renal disease, currently on dialysis #5 coronary artery disease #6 cardiomyopathy, unspecified Plan: Continue current medication regimen. Consideration maybe made for atrial flutter ablation outpatient. Objective - Vital Signs Vital signs: Vital Signs Temp 97.9 F 05/08/19 07:00 Pulse 64 05/08/19 08:15 Resp 19 05/08/19 07:00 BP 116/66 05/08/19 07:00 Pulse Ox 94 L 05/08/19 07:00 Intake & Output 02/05/08/19 05/08/19 18:59 06:59 18:59 Intake Total 1200 240 Output Total 1900 Balance -700 240 Intake: Oral 600 240 Hemodialysis 600 Output: Hemodialysis 1900 Other: # Voids 0 - Labs CBC & Chem 7: 05/07/19 05:59 05/07/19 05:59 Labs: Abnormal Lab Results - Last 24 Hours (Table) 05/07/19 05/07/19 05/07/19 Range/Units 11:19 17:30 20:03 POC Glucose (mg/dL) 133 H 234 H 263 H (75-99) mg/dL 05/08/19 Range/Units 07:28 POC Glucose (mg/dL) 158 H (75-99) mg/dL
[2019-05-08] MEDS: PREGABALIN 75 MG CAP PO SCH ×2 (11:07→20:11)
[2019-05-08] MEDS: TAMSULOSIN 0.4 MG CAP.ER.24H PO SCH ×2 (11:08→20:11)
[2019-05-08] MEDS: APIXABAN 2.5 MG TABLET PO SCH ×2 (11:08→20:11)
[2019-05-08] MEDS: CALCIUM ACETATE 667 MG TAB PO SCH ×4 (11:08→20:11)
[2019-05-08] MEDS: INSULIN ASPART (NovoLOG) 100 UNIT/ML VIAL SQ SCH ×4 (11:09→21:38)
[2019-05-08] MEDS: LEVOTHYROXINE 137 MCG TAB PO SCH (11:09)
[2019-05-08] MEDS: TORSEMIDE 20 MG TAB PO SCH (11:10)
[2019-05-08] MEDS: DOCUSATE 100 MG CAP PO PRN (11:16)
--- NOTE | 2019-05-08 11:24 | P.PN ---
Subjective Progress Note Date: 05/08/19 Follow for ESRD. Objective - Vital Signs Vital signs: Vital Signs Temp 97.9 F 05/08/19 07:00 Pulse 64 05/08/19 08:15 Resp 19 05/08/19 07:00 BP 116/66 05/08/19 07:00 Pulse Ox 94 L 05/08/19 07:00 Intake & Output 05/07/19 05/08/19 05/08/19 18:59 06:59 18:59 Intake Total 1200 240 Output Total 1900 Balance -700 240 Intake: Oral 600 240 Hemodialysis 600 Output: Hemodialysis 1900 Other: # Voids 0 - Exam No acute distress S1-S2 heard Lungs clear Left upper arm AVG Edema, bilateral wounds in the feet. - Labs CBC & Chem 7: 05/07/19 05:59 05/07/19 05:59 Labs: Abnormal Lab Results - Last 24 Hours (Table) 05/07/19 05/07/19 05/08/19 Range/Units 17:30 20:03 07:28 POC Glucose (mg/dL) 234 H 263 H 158 H (75-99) mg/dL Assessment and Plan Assessment: #1 recurrent hyperkalemia suspect Bactrim, rule out recirculation #2 ESRD on hemodialysis TTS schedule #3 volume overload #4 hypotension on midodrine #5 anemia with ESRD #6 metabolic bone disease with ESRD #6 bilateral forearms in the feet with element of cellulitis on Bactrim. Plan: #1 plan hemodialysis tomorrow and Thursday. He is TTS schedule. #2 consider stopping Bactrim, replacing with an alternative antibiotic. Consi meeta infectious disease evaluation for bilateral feet wounds. #3 consult vascular surgery for an angiogram to rule out stenosis with recirculation.
[2019-05-08 11:57] LABS: Glucose,Whole Blood 230 mg/dL (75-99)
--- NOTE | 2019-05-08 13:02 | P.PN ---
Subjective Progress Note Date: 05/08/19 Principal diagnosis: Patient admitted for significant fluid overload, bradycardia caused by severe hyperkalemia. He has been dialyzed multiple times subsequently becomes quite fatigued post dialysis. Today patient is awake alert sitting up in chair currently on 4 L nasal cannula with oxygen saturation 94-96%. Has complaint of pain to the bottom of left foot and noted blister on the dorsal aspect of same foot. We will anticipate discharge tomorrow for rehab and will follow up on an outpatient basis with vascular surgery for graft evaluation. Objective - Vital Signs Vital signs: Vital Signs Temp 97.9 F 05/08/19 07:00 Pulse 68 05/08/19 11:48 Resp 19 05/08/19 07:00 BP 116/66 05/08/19 07:00 Pulse Ox 94 L 05/08/19 07:00 Intake & Output 05/07/19 05/08/19 05/08/19 18:59 06:59 18:59 Intake Total 1200 240 Output Total 1900 Balance -700 240 Intake: Oral 600 240 Hemodialysis 600 Output: Hemodialysis 1900 Other: # Voids 0 - Exam GENERAL: Well-appearing, well-nourished and in no acute distress. HEAD: Atraumatic, normocephalic. EYES: Pupils equal round and reactive to light, extraocular movements intact, sclera anicteric, conjunctiva are normal. ENT:nares patent, oropharynx clear without exudates. Moist mucous membranes. NECK: Normal range of motion, supple without lymphadenopathy or JVD, no thyromegaly LUNGS: Breath sounds clear to auscultation bilaterally and equal. No wheezes rales or rhonchi. HEART: Regular rate and rhythm without murmurs, rubs or gallops.S1S2 Normal ABDOMEN: Soft, nontender, normoactive bowel sounds. No guarding, no rebound. No masses appreciated. EXTREMITIES: Normal range of motion, no pitting or edema. No clubbing or cyanosis. Draining wound to the bottom of left foot Blister noted on the dorsal sign of left foot. Right foot noted to have wounds to #2 toe #3 toe and left great toenail missing NEUROLOGICAL: Cranial nerves II through XII grossly intact. Normal speech, normal gait. PSYCH: Normal mood, normal affect. SKIN: Warm, Dry, normal turgor, no rashes or lesions noted. : Normal male genitalia - Labs CBC & Chem 7: 05/07/19 05:59 05/07/19 05:59 Labs: Abnormal Lab Results - Last 24 Hours (Table) 05/07/19 05/07/19 05/08/19 Range/Units 17:30 20:03 07:28 POC Glucose (mg/dL) 234 H 263 H 158 H (75-99) mg/dL 05/08/19 Range/Units 11:56 POC Glucose (mg/dL) 230 H (75-99) mg/dL Assessment and Plan (1) Bradycardia Current Visit: Yes Status: Acute Code(s): R00.1 - BRADYCARDIA, UNSPECIFIED SNOMED Code(s): 04350590 (2) Hyperkalemia Current Visit: Yes Status: Acute Code(s): E87.5 - HYPERKALEMIA SNOMED Code(s): 34008980 (3) Weakness Current Visit: Yes Status: Acute Code(s): R53.1 - WEAKNESS SNOMED Code(s): 23944435 (4) MIGUEL (acute kidney injury) Current Visit: No Status: Acute Code(s): N17.9 - ACUTE KIDNEY FAILURE, UNSPECIFIED SNOMED Code(s): 04584797 Plan: Dialysis dependent renal disease bradycardia is resolved, heart rate 64 Chronic diastolic heart failure with diminished ejection fraction Known hypertension and coronary artery disease Known dyslipidemia Morbid obesity History obstructive sleep apnea and is utilizing BiPAP in the hospital when sleeping Chronic atrial fib We'll have hemodialysis tomorrow Consult for infectious disease for bilateral foot wounds and to evaluate alternate antibiotic Will follow-up with vascular surgery in regards to dialysis graft on an outpatient basis. Anticipate discharge to rehabs Time with Patient: Greater than 30
[2019-05-08] MEDS: ASPIRIN 81 MG PO SCH (13:03)
[2019-05-08] MEDS: FAMOTIDINE 20 MG TAB PO SCH (13:03)
[2019-05-08] MEDS ORDERED: VANCOMYCIN IV PER PHARMACY 1 EACH MISC MISCELLANE PRN (13:25)
[2019-05-08] MEDS ORDERED: VANCOMYCIN 2,000 MG in SODIUM CHLORIDE 0.9% 500 ML 500 ML IVPB ONE (14:00)
--- NOTE | 2019-05-08 14:47 | CT ---
EXAMINATION TYPE: CT foot LT wo con DATE OF EXAM: 05/08/2019 COMPARISON: None. HISTORY: Left foot wound and blister r/o abscess CT DLP: 365.9 mGycm Automated exposure control for dose reduction was used. FINDINGS: Well-defined fragmentation from the medial malleolus could reflect products of old avulsion type frac ture. Ankle mortise shows some mild to moderate narrowing and peripheral spurring. There our moderate-sized superior and large size inferior calcaneal spurs. Thickening of the distal A chilles tendon is present. There is moderate to severe spurring dorsal surface of the talonavicular joint. Osseous structures ar e demineralized with subchondral cystic change hindfoot and midfoot level and narrowing at cuneiform articulation with the base of metatarsals. There is [id number] diffuse subcutaneous edema with slightly more prominent edema along the brian latesha surface hindfoot level extending laterally. No suspicious cortical destruction or periosteal reac tion is seen. No well-formed fluid collection or abscess noted. IMPRESSION: As above. No well-defined thick walled drainable abscess.
[2019-05-08] MEDS: ISOSORBIDE MONONITRATE ER 30 MG TAB.ER.24H PO SCH (14:59)
[2019-05-08] MEDS: Insulin Aspart (For Pump) 100 UNIT/ML VIAL SQ-PUMP SCH (15:37)
[2019-05-08] MEDS: ALLOPURINOL 100 MG TAB PO SCH (17:01)
[2019-05-08 17:13] LABS: Glucose,Whole Blood 262 mg/dL (75-99)
[2019-05-08] MEDS: SODIUM CHLORIDE 0.9% 1,000 ML IV SCH (20:07)
[2019-05-08] MEDS: PRAVASTATIN SODIUM 40 MG TAB PO SCH (20:11)
[2019-05-08 20:30] LABS: Glucose,Whole Blood 316 mg/dL (75-99)
[2019-05-08] MEDS: INSULIN DETEMIR (LEVEMIR) 100 UNIT/ML SYR SQ SCH (21:38)
--- NOTE | 2019-05-08 22:44 | P.CONS ---
History of Present Illness - Reason for Consult Consult date: 05/08/19 left foot wound and cellulitis Requesting physician: Patrick Mckenzie Jr - Chief Complaint left foot planter wound and pain x days - History of Present Illness Patient is a 78-year old male with a past medical history sniffing for end-stage renal disease on hemodialysis Thursday at this patient presenting to the hospital on May 04, 2019 with the patient was noticed to be bradycardic with a heart rate of 30s subsequently patient has been advised to go to the hospital patient has been in the hospital since then and is being managed by multiple [facility] [employer] consultant patient also gives a history of a wound on the plantar aspect of her left foot which apparently may have happened after he walked on the edges of the walker subsequently he did have a small wound there with secondary cellulitis that apparently has been treated with Bactrim DS however the patient was complaining of developing a blood blister on the dorsal aspect of his left foot and he did have associated with some swelling and redness of the left leg to the patient pain is mostly on the plantar aspect of his left foot where he used to be wound currently covered with a dry scab with occasional drainage patient described the pain on the plantar aspect to be throbbing intensity about 6-7 out of 10 and radiation patient denies high-grade fever and did not have any elevated white count currently on Bactrim DS half tablets, I was asked to see the patient today for further recommendation regarding his wounds and cellulitis and need for antibiotic therapy Review of Systems Positive point has been mentioned in HPI rest of the systems are negative Past Medical History Past Medical History: Atrial Fibrillation, Coronary Artery Disease (CAD), Heart Failure, CVA/TIA, Diabetes Mellitus, Eye Disorder, GERD/Reflux, Hyperlipidemia, Hypertension, Myocardial Infarction (NM), Osteoarthritis (OA), Renal Disease, Sleep Apnea/CPAP/BIPAP, Syncope, Vascular Disorder Additional Past Medical History / Comment(s): IDDM type II with insulin pump, neuropathy bilateral legs/feet, current bilateral foot wounds, ESRD with hemodialysis M/W/F, chronic anemia, gout bilateral great toes, arthritis bilat eral hands/feet/back, 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 Last Myocardial Infarction Date:: 05/08/17 History of Any Multi-Drug Resistant Organisms: None Reported Past Surgical History: Cardiac Ablation, Heart Catheterization, Joint Replacement, Orthopedic Surgery, Tonsillectomy Additional Past Surgical History / Comment(s): Temporary hemodialysis cath R chest, fistula L upper arm, cardioversions x2, pericardial effusion drainage, R caratid endartectomy, bilateral cataract surgery/lens implants, bilateral hands trigger finger releases, bilateral knee arthroscopies, R total knee arthroplasty, bilateral total hip arthroplasties, R carpal tunnel release. Past Anesthesia/Blood Transfusion Reactions: No Reported Reaction Smoking Status: Never smoker - Past Family History Mother Family Medical History: Diabetes Mellitus, Hyperlipidemia, Hypertension, Myocardial Infarction (NM) Daughter(s) Family Medical History: Cancer Father Additional Family Medical History / Comment(s): alcoholic Medications and Allergies Home Medications Medication Instructions Recorded Confirmed Type Aspirin [Adult Low Dose Aspirin EC] 81 mg PO DAILY@1300 04/27/17 05/04/19 History Acetaminophen [Tylenol Arthritis] 1,300 mg PO Q12H PRN 08/06/17 05/04/19 History Isosorbide Mononitrate [Isosorbide 30 mg PO DAILY@1300 08/06/17 05/04/19 History Mononitrate ER] Nitroglycerin Sl Tabs [Nitrostat] 0.4 mg SUBLINGUAL Q5M PRN 08/06/17 05/04/19 History Zolpidem [Ambien] 5 - 10 mg PO HS PRN 08/06/17 05/04/19 History traMADol HCL [Ultram] 50 mg PO Q8HR PRN 08/06/17 05/04/19 History Albuterol Inhaler [Ventolin Hfa 2 puff INHALATION RT-Q4H PRN 10/26/17 05/04/19 History Inhaler] Budesonide/Formoterol Fumarate 2 puff INHALATION RT-BID 10/26/17 05/04/19 History [Symbicort 160-4.5 Mcg Inhaler] Allopurinol [Zyloprim] 200 mg PO DAILY@1800 04/08/18 05/04/19 History Calcium Acetate [Phoslo] 667 mg PO QID 04/08/18 05/04/19 History Ergocalciferol (Vitamin D2) 50,000 unit PO Q14D 04/08/18 05/04/19 History [Drisdol] Amiodarone HCl [Pacerone] 100 mg PO DAILY@1300 05/04/19 05/04/19 History Apixaban [Eliquis] 2.5 mg PO BID 05/04/19 05/04/19 History Docusate [Colace] 100 mg PO DAILY PRN 05/04/19 05/04/19 History Famotidine [Pepcid] 20 mg PO DAILY@1300 05/04/19 05/04/19 History Insulin Aspart (For Pump) [NovoLOG 0.01 unit SQ-PUMP CONTINUOUS 05/04/19 05/04/19 History (For Pump)] Levothyroxine Sodium [Synthroid] 75 mcg PO DAILY 05/04/19 05/04/19 History Lidocaine-Prilocaine Cream [Emla 1 applic TOPICAL DIRECTED 05/04/19 05/04/19 History Cream 2.5%/2.5%] Midodrine HCl [ProAmatine] 10 mg PO DIRECTED PRN 05/04/19 05/04/19 History Polyethylene Glycol 3350 [Miralax] 17 gm PO DAILY PRN 05/04/19 05/04/19 History Pravastatin Sodium [Pravachol] 40 mg PO HS 05/04/19 05/04/19 History Pregabalin [Lyrica] 150 mg PO BID 05/04/19 05/04/19 History Sulfamethox-Tmp 800-160Mg [Bactrim 0.5 tab PO DAILY@1700 05/04/19 05/04/19 History DS 800-160 mg] Tamsulosin HCl [Flomax] 0.4 mg PO BID 05/04/19 05/04/19 History Torsemide [Demadex] 100 mg PO DAILY 05/04/19 05/04/19 History amLODIPine BESYLATE [Norvasc] 5 mg PO DAILY@1300 PRN 05/04/19 05/04/19 History rOPINIRole HCL [Requip] 1 mg PO TID 05/04/19 05/04/19 History Allergies Allergy/AdvReac Type Severity Reaction Status Date / Time No Known Allergies Allergy Verified 05/04/19 10:43 Physical Exam Vitals: Vital Signs Temp Pulse Pulse Resp BP Pulse Ox 05/08/19 11:48 68 05/08/19 11:38 60 05/08/19 08:15 64 05/08/19 08:02 64 05/08/19 07:00 97.9 F 54 L 19 116/66 94 L 05/08/19 00:50 97.5 F L 65 16 95/54 93 L 05/07/19 20:43 90/50 05/07/19 19:25 97.5 F L 58 L 17 89/45 100 05/07/19 16:14 66 05/07/19 16:01 64 05/07/19 14:30 98.1 F 64 17 109/61 96 Intake and Output 05/07/19 05/08/19 05/08/19 22:59 06:59 14:59 Intake Total 240 Balance 240 Intake: Oral 240 Other: # Voids 0 GENERAL DESCRIPTION: Elderly male up in the chair, no distress. No tachypnea or accessory muscle of respiration use. HEENT: Shows Pallor , no scleral icterus. Oral mucous membrane is dry. NECK: Trachea central, no thyromegaly. LUNGS: Unlabored breathing. Decreased breath sound at the base. No wheeze or crackle. HEART: S1, S2, regular rate and rhythm. ABDOMEN: Soft, no tenderness , guarding or rigidity EXTREMITIES: Left foot plantar wound is currently scabbed off it is tender to touch but there is no redness he did have a blood blister on the dorsal aspect of the left foot with secondary swelling and redness to the left leg SKIN: No rash, no masses palpable. NEUROLOGICAL: The patient is awake, alert, oriented x3, mood and affect normal. Results CBC & Chem 7: 05/07/19 05:59 05/07/19 05:59 Labs: Abnormal Lab Results - Last 24 Hours (Table) 05/07/19 05/07/19 05/08/19 Range/Units 17:30 20:03 07:28 POC Glucose (mg/dL) 234 H 263 H 158 H (75-99) mg/dL 05/08/19 Range/Units 11:56 POC Glucose (mg/dL) 230 H (75-99) mg/dL Assessment and Plan Assessment: patient with a wound on the lateral aspect of the left foot in this patient who did have pain and tenderness on the plantar aspect now with development of blood blister on the dorsum aspect and swelling of the left leg with some redness concern for underlying deep infection such as an abscess need to be ruled out in view of worsening while on oral Bactrim DS (1) Wound of left foot Current Visit: Yes Status: Acute Code(s): S91.302A - UNSPECIFIED OPEN WOUND, LEFT FOOT, INITIAL ENCOUNTER SNOMED Code(s): 213786055 (2) Cellulitis of left foot Current Visit: Yes Status: Acute Code(s): L03.116 - CELLULITIS OF LEFT LOWER LIMB SNOMED Code(s): 379448745 Plan: 1-we will obtain a CT of the left foot without any contrast to make sure no evidence of any abscess or fluid collection that may need to be drained 2-discontinue Bactrim DS 3-vancomycin pharmacy to dose her with a target trough of 15 while watching Vanco trough closely. We will follow on clinical condition and cultures to further adjust medication if needed Thank you for this consultation we will follow the patient along with you Time with Patient: Greater than 30
[2019-05-09 07:02] LABS: Glucose,Whole Blood 226 mg/dL (75-99)
[2019-05-09 07:33] LABS: Calcium 8.8 mg/dL (8.4-10.2); Potassium 5.3 mmol/L (3.5-5.1)
[2019-05-09] MEDS: PREGABALIN 75 MG CAP PO SCH ×2 (08:43→21:36)
[2019-05-09] MEDS: APIXABAN 2.5 MG TABLET PO SCH ×2 (08:43→21:36)
[2019-05-09] MEDS: DOCUSATE 100 MG CAP PO PRN (08:43)
[2019-05-09] MEDS: CALCIUM ACETATE 667 MG TAB PO SCH ×4 (08:43→21:36)
[2019-05-09] MEDS: LEVOTHYROXINE 137 MCG TAB PO SCH (08:43)
[2019-05-09] MEDS: TORSEMIDE 20 MG TAB PO SCH (08:43)
[2019-05-09] MEDS: TAMSULOSIN 0.4 MG CAP.ER.24H PO SCH ×2 (08:43→21:36)
[2019-05-09] MEDS: INSULIN ASPART (NovoLOG) 100 UNIT/ML VIAL SQ SCH ×4 (08:44→21:36)
[2019-05-09] MEDS: SYMBICORT 160-4.5 MCG INHALER INHALATION SCH ×2 (08:50→20:48)
[2019-05-09] MEDS: ALBUTEROL NEBULIZED 2.5 MG/3 ML INHALATION PRN ×4 (08:50→20:46)
--- NOTE | 2019-05-09 11:11 | P.PN ---
Subjective Patient is seen in follow-up for end-stage renal disease. He is maintained on hemodialysis on Thursday schedule. He scheduled for dialysis today due to edema. Currently on BiPAP. No chest pain or shortness of breath. present at bedside. Vital signs are stable. General: The patient appeared well nourished and normally developed. HEENT: Head exam is unremarkable. Neck is without jugular venous distension. BiPAP noted. LUNGS: Lungs are clear to auscultation and percussion. Breath sounds decreased. HEART: Rate and Rhythm are regular. First and second heart sounds normal. No murmurs, rubs or gallops. ABDOMEN: Abdominal exam reveals normal bowel sounds. Non-tender and non- distended. No evidence of peritonitis. EXTREMITITES: 2+ edema. Objective - Vital Signs Vital signs: Vital Signs Temp 97.4 F L 05/09/19 07:00 Pulse 68 05/09/19 09:06 Resp 18 05/09/19 07:00 BP 105/57 05/09/19 07:00 Pulse Ox 99 05/09/19 07:00 Intake & Output 05/08/19 05/09/19 05/09/19 18:59 06:59 18:59 Intake Total 400 360 120 Balance 400 360 120 Weight 135.5 kg Intake: Oral 400 360 120 Other: # Voids 0 - Labs CBC & Chem 7: 05/07/19 05:59 05/09/19 06:48 Labs: Abnormal Lab Results - Last 24 Hours (Table) 05/08/19 05/08/19 05/08/19 Range/Units 11:56 17:12 20:28 Sodium (137-145) mmol/L Potassium (3.5-5.1) mmol/L Chloride (98-107) mmol/L BUN (9-20) mg/dL Creatinine (0.66-1.25) mg/dL Glucose (74-99) mg/dL POC Glucose (mg/dL) 230 H 262 H 316 H (75-99) mg/dL 05/09/19 05/09/19 Range/Units 06:48 06:59 Sodium 135 L (137-145) mmol/L Potassium 5.3 H (3.5-5.1) mmol/L Chloride 95 L (98-107) mmol/L BUN 61 H (9-20) mg/dL Creatinine 7.72 H* (0.66-1.25) mg/dL Glucose 188 H (74-99) mg/dL POC Glucose (mg/dL) 226 H (75-99) mg/dL Assessment and Plan Plan: Assessment: 1. End-stage renal disease maintained on hemodialysis on Thursday schedule. 2. Hyperkalemia secondary to chronic kidney disease and Bactrim. He's also follow-up with vascular surgery outpatient to rule out recirculation. Potassium 5.3 today. 3. Insulin-dependent diabetes mellitus. 4. Volume overload. Plan: Short hemodialysis treatment today mostly for ultrafiltration. Another treatment tomorrow per his outpatient schedule. Follow-up with vascular surgery outpatient. Potential discharge after dialysis today.
[2019-05-09 11:45] LABS: Glucose,Whole Blood 259 mg/dL (75-99)
[2019-05-09] MEDS ORDERED: VANCOMYCIN 2,000 MG in SODIUM CHLORIDE 0.9% 500 ML 500 ML IVPB ONE (12:00)
--- NOTE | 2019-05-09 12:00 | P.DS ---
Providers Date of admission: 05/04/19 11:44 Expected date of discharge: 05/09/19 Attending physician: Patrick Mckenzie Consults: 05/04/19 11:32 Consult Physician Routine Consulting Provider: Denise Peter Consult Reason/Comments: dialysis Do you want consulting provider notified?: Yes 05/04/19 11:33 Consult Physician Routine Consulting Provider: Tom Gonsales Consult Reason/Comments: bradycardia Do you want consulting provider notified?: Yes 05/04/19 11:52 Consult Physician Routine Consulting Provider: Jaden Marsh Consult Reason/Comments: icu patien Do you want consulting provider notified?: Already Contacted 05/08/19 12:27 Consult Physician Routine Consulting Provider: Christine Shelton Consult Reason/Comments: bilateral foot wounds Do you want consulting provider notified?: Already Contacted Primary care physician: Paddy Corona Hospital Course: Final Diagnoses: End Stage renal disease dialysis dependent Hyperkalemia secondary to the above and had been on Bactrim outpatient Acute bradycardia Chronic diastolic heart failure with diminished ejection fraction coronary artery disease hypertension dyslipidemia Morbid obesity CVA by history 2018 Obstructive sleep apnea by history Chronic atrial fibrillation Hospital course:Mr. Mitchell is a well-known patient of several years, 77-year-old male presented to the hospital with a complaint of bradycardia known history of atrial fibrillation end-stage renal disease diabetes mellitus and dyslipidemia history of known peripheral vascular and patient gets hemodialysis Thursday and Thursday. Went to dialysis appointment today and was not performed because of the bradycardia patient was subsequently sent from dialysis to [facility] emergency room for evaluation and treatment patient was subsequently admitted he is on several meds has not been taking his amiodarone for several days at home they've been measuring patient's heart rate reports that between 30s and 100s patient is at time of admission denied complaints 05/05/2019 potassium 6.4, received hyperkalemic regimen and scheduled for hemodialysis today. This morning patient on BiPAP, became anxious, borderline hypotension with bradycardia, heart rate 30s to 40s with underlying atrial fibrillation/atrial flutter. Norvasc discontinued, amiodarone dose decreased. Echo ordered. 05/06/2019 maintained on BiPAP at night. Potassium 5.6, scheduled for hemodialysis today. PT evaluation in progress. Echo reporting, impaired LV function, EF 45-50% , moderate tricuspid regurgitation, moderate pulmonary hypertension. Norvasc discontinued yesterday in addition to amiodarone dose decreased, with significant improvement .Telemetry atrial flutter fib/flutter, heart rate in the 50s to 60s. Patient admitted for significant fluid overload, bradycardia caused by severe hyperkalemia. He has been dialyzed multiple times subsequently becomes quite fatigued post dialysis. Today patient is awake alert sitting up in chair currently on 4 L nasal cannula with oxygen saturation 94-96%. Has complaint of pain to the bottom of left foot and noted blister on the dorsal aspect of same foot. We will anticipate discharge tomorrow for rehab and will follow up on an outpatient basis with vascular surgery for graft evaluation. Significant clinical improvement. Patient will be discharged to [facility] rehab today pending hemodialysis, clearance, and clearance from nephrology as well as ID. DC antibiotics as per ID. Patient will need to follow-up with vascular surgery outpatient for further evaluation of graft, ruling out recirculation. EXAM: General: awake, alert and oriented times 3,no acute distress.] Cardiac: Irregular, irregular, bradycardic, systolic murmur] Lungs: bilateral bases diminished, occasional fine bibasilar crackles Abdomen: [No mass. No organomegaly. Bowel sounds presnt and normoactive in all 4 quadrants.] Extremes: [No edema no cyanosis no claudication normal pulses] dialysis access right arm Bilateral lower extreme diabetic ulcers in the healing process Neurologic: [No lateralizing deficits. CN II - XII grossly intact.] The impression and plan of care has been dictated as directed. : I performed a history and examination of this patient, discussed the same with the dictator. I agree with the dictator's note ,documented as a scribe. Any additional findings or plans will be noted. Patient Condition at Discharge: Stable Plan - Discharge Summary Discharge Rx Participant: No New Discharge Prescriptions: New SILVER sulfADIAZINE CREAM [Silvadene Cream] 1 applic TOPICAL DAILY applic Levothyroxine Sodium [Synthroid] 137 mcg PO DAILY@0630 tab Insulin Detemir (Levemir) [Levemir] 40 unit SQ HS syr Continue Aspirin [Adult Low Dose Aspirin EC] 81 mg PO DAILY@1300 Acetaminophen [Tylenol Arthritis] 1,300 mg PO Q12H PRN PRN Reason: Pain Nitroglycerin Sl Tabs [Nitrostat] 0.4 mg SUBLINGUAL Q5M PRN PRN Reason: Chest Pain Isosorbide Mononitrate [Isosorbide Mononitrate ER] 30 mg PO DAILY@1300 Albuterol Inhaler [Ventolin Hfa Inhaler] 2 puff INHALATION RT-Q4H PRN PRN Reason: Shortness Of Breath Budesonide/Formoterol Fumarate [Symbicort 160-4.5 Mcg Inhaler] 2 puff INHALATION RT-BID Calcium Acetate [PhosLo] 667 mg PO QID Allopurinol [Zyloprim] 200 mg PO DAILY@1800 Ergocalciferol (Vitamin D2) [Drisdol] 50,000 unit PO Q14D rOPINIRole HCL [Requip] 1 mg PO TID Torsemide [Demadex] 100 mg PO DAILY Tamsulosin HCl [Flomax] 0.4 mg PO BID Pravastatin Sodium [Pravachol] 40 mg PO HS Polyethylene Glycol 3350 [Miralax] 17 gm PO DAILY PRN PRN Reason: Constipation Midodrine HCl [ProAmatine] 10 mg PO DIRECTED PRN PRN Reason: DIALYSIS DAYS Famotidine [Pepcid] 20 mg PO DAILY@1300 Apixaban [Eliquis] 2.5 mg PO BID Docusate [Colace] 100 mg PO DAILY PRN PRN Reason: Constipation Lidocaine-Prilocaine Cream [Emla Cream 2.5%/2.5%] 1 applic TOPICAL DIRECTED Pregabalin [Lyrica] 150 mg PO BID #6 cap traMADol HCL [Ultram] 50 mg PO Q8HR PRN #9 tab PRN Reason: Pain Discontinued Zolpidem [Ambien] 5 - 10 mg PO HS PRN PRN Reason: Insomnia Amiodarone HCl [Pacerone] 100 mg PO DAILY@1300 Sulfamethox-Tmp 800-160Mg [Bactrim DS 800-160 mg] 0.5 tab PO DAILY@1700 Insulin Aspart (For Pump) [NovoLOG (For Pump)] 0.01 unit SQ-PUMP CONTINUOUS amLODIPine BESYLATE [Norvasc] 5 mg PO DAILY@1300 PRN PRN Reason: Blood Pressure - High Levothyroxine Sodium [Synthroid] 75 mcg PO DAILY Discharge Medication List Aspirin [Adult Low Dose Aspirin EC] 81 mg PO DAILY@1300 04/27/17 [History] Acetaminophen [Tylenol Arthritis] 1,300 mg PO Q12H PRN 08/06/17 [History] Isosorbide Mononitrate [Isosorbide Mononitrate ER] 30 mg PO DAILY@1300 08/06/17 [History] Nitroglycerin Sl Tabs [Nitrostat] 0.4 mg SUBLINGUAL Q5M PRN 08/06/17 [History] Albuterol Inhaler [Ventolin Hfa Inhaler] 2 puff INHALATION RT-Q4H PRN 10/26/17 [History] Budesonide/Formoterol Fumarate [Symbicort 160-4.5 Mcg Inhaler] 2 puff INHALATION RT-BID 10/26/17 [History] Allopurinol [Zyloprim] 200 mg PO DAILY@1800 04/08/18 [History] Calcium Acetate [PhosLo] 667 mg PO QID 04/08/18 [History] Ergocalciferol (Vitamin D2) [Drisdol] 50,000 unit PO Q14D 04/08/18 [History] Apixaban [Eliquis] 2.5 mg PO BID 05/04/19 [History] Docusate [Colace] 100 mg PO DAILY PRN 05/04/19 [History] Famotidine [Pepcid] 20 mg PO DAILY@1300 05/04/19 [History] Lidocaine-Prilocaine Cream [Emla Cream 2.5%/2.5%] 1 applic TOPICAL DIRECTED 05/04/19 [History] Midodrine HCl [ProAmatine] 10 mg PO DIRECTED PRN 05/04/19 [History] Polyethylene Glycol 3350 [Miralax] 17 gm PO DAILY PRN 05/04/19 [History] Pravastatin Sodium [Pravachol] 40 mg PO HS 05/04/19 [History] Tamsulosin HCl [Flomax] 0.4 mg PO BID 05/04/19 [History] Torsemide [Demadex] 100 mg PO DAILY 05/04/19 [History] rOPINIRole HCL [Requip] 1 mg PO TID 05/04/19 [History] Insulin Detemir (Levemir) [Levemir] 40 unit SQ HS syr 05/09/19 [Rx] Levothyroxine Sodium [Synthroid] 137 mcg PO DAILY@0630 tab 05/09/19 [Rx] Pregabalin [Lyrica] 150 mg PO BID #6 cap 05/09/19 [Rx] SILVER sulfADIAZINE CREAM [Silvadene Cream] 1 applic TOPICAL DAILY applic 05/09/19 [Rx] traMADol HCL [Ultram] 50 mg PO Q8HR PRN #9 tab 05/09/19 [Rx] Follow up Appointment(s)/Referral(s): Paddy Corona MD [Primary Care Provider] - 3 Days Jaylen Hardin DO [STAFF PHYSICIAN] - 1 Week Sunny Ascencio MD [STAFF PHYSICIAN] - 1 Week (Graft evaluation) Bereket Bagley DO [STAFF PHYSICIAN] - 05/23/19 Activity/Diet/Wound Care/Special Instructions: [facility] hemodialysis as per nephrology antibiotics/wound care as per ID CBC, BMP in 3 days Diet: Consistent carb Activity: As tolerated Patient currently on long-acting insulin, refuses to bring pump into hospital. Discharge Disposition: TRANSFER TO SNF/ECF
[2019-05-09] MEDS: ISOSORBIDE MONONITRATE ER 30 MG TAB.ER.24H PO SCH (12:12)
[2019-05-09] MEDS: SODIUM CHLORIDE 0.9% 1,000 ML IV SCH (12:12)
[2019-05-09] MEDS: FAMOTIDINE 20 MG TAB PO SCH (13:22)
[2019-05-09] MEDS: ASPIRIN 81 MG PO SCH (13:22)
[2019-05-09] MEDS: ALLOPURINOL 100 MG TAB PO SCH (16:55)
[2019-05-09 18:02] LABS: Glucose,Whole Blood 248 mg/dL (75-99)
--- NOTE | 2019-05-09 18:13 | PN ---
PROGRESS NOTE DATE OF SERVICE: 05/09/2019 REASON FOR FOLLOWUP: Left foot wound and cellulitis. INTERVAL HISTORY: The patient was seen on rounds this morning. The patient overall has been feeling better, breathing comfortably. Still complaining of pain to the left foot plantar wound area. Did have more swelling of the legs. Minimal redness. Denies any chest pain, shortness of breath or cough. No abdominal pain or diarrhea. PHYSICAL EXAMINATION: Blood pressure 126/58 with a pulse of 61, temperature 96.6. He is 92% on 3 L nasal cannula. General description is an elderly male up in the chair in no distress. RESPIRATORY SYSTEM: Unlabored breathing. Clear to auscultation anteriorly. HEART: S1, S2. Regular rate and rhythm. ABDOMEN: Soft. No tenderness. Left foot plantar wound has no significant drainage. Blister on the dorsum of the left foot has ruptured, with no purulence. Did have swelling and minimal redness of the left leg. LABS/IMAGING: BUN of 61, creatinine 7.72. CT was negative for any abscess. DIAGNOSTIC IMPRESSION AND PLAN: Patient with left foot wound and cellulitis, clinically responding to vancomycin; to continue through dialysis for 2 weeks with close outpatient followup. Local wound care to the left foot plantar wound with Aquacel Silver dressing. Continue with supportive care. MMODL / IJN: [id number] /
[2019-05-09 20:38] LABS: Glucose,Whole Blood 251 mg/dL (75-99)
[2019-05-09] MEDS: INSULIN DETEMIR (LEVEMIR) 100 UNIT/ML SYR SQ SCH (21:37)
[2019-05-09] MEDS: PRAVASTATIN SODIUM 40 MG TAB PO SCH (21:42)
[2019-05-10] MEDS: LEVOTHYROXINE 137 MCG TAB PO SCH (06:12)
[2019-05-10 06:49] LABS: Glucose,Whole Blood 219 mg/dL (75-99)
[2019-05-10] MEDS: SYMBICORT 160-4.5 MCG INHALER INHALATION SCH (07:24)
[2019-05-10] MEDS: ALBUTEROL NEBULIZED 2.5 MG/3 ML INHALATION PRN (07:24)
[2019-05-10] MEDS: CALCIUM ACETATE 667 MG TAB PO SCH ×2 (07:32→12:20)
[2019-05-10] MEDS: INSULIN ASPART (NovoLOG) 100 UNIT/ML VIAL SQ SCH ×2 (07:52→12:26)
[2019-05-10] MEDS: TAMSULOSIN 0.4 MG CAP.ER.24H PO SCH (07:53)
[2019-05-10] MEDS: PREGABALIN 75 MG CAP PO SCH (07:54)
[2019-05-10] MEDS: APIXABAN 2.5 MG TABLET PO SCH (07:54)
[2019-05-10] MEDS: MIDODRINE 5 MG TAB PO PRN (08:27)
[2019-05-10] MEDS ORDERED: ALBUTEROL INHALER 60 PUFF/8 GM INHALER INHALATION PRN ×2 (08:51→08:55)
[2019-05-10 12:02] LABS: Glucose,Whole Blood 121 mg/dL (75-99)
--- NOTE | 2019-05-10 12:05 | P.PN ---
Subjective Patient is seen in follow-up for end-stage renal disease. He is maintained on hemodialysis on Thursday schedule. No active complaints at this time. Scheduled for discharge today. Vital signs are stable. General: The patient appeared well nourished and normally developed. HEENT: Head exam is unremarkable. Neck is without jugular venous distension. BiPAP noted. LUNGS: Lungs are clear to auscultation and percussion. Breath sounds decreased. HEART: Rate and Rhythm are regular. First and second heart sounds normal. No murmurs, rubs or gallops. ABDOMEN: Abdominal exam reveals normal bowel sounds. Non-tender and non-distend ed. No evidence of peritonitis. EXTREMITITES: 1+ edema. Objective - Vital Signs Vital signs: Vital Signs Temp 97.4 F L 05/10/19 05:00 Pulse 68 05/10/19 07:37 Resp 19 05/10/19 05:00 BP 100/51 05/10/19 05:00 Pulse Ox 94 L 05/10/19 05:00 Intake & Output 05/09/19 05/10/19 05/10/19 18:59 06:59 18:59 Intake Total 620 100 Balance 620 100 Weight 138.4 kg Intake: Intake, IV Titration 500 Amount Vancomycin 2,000 mg In 500 Sodium Chloride 0.9% 500 ml 500 ml @ 167 mls/hr IVPB ONCE ONE Rx#: [id number] Oral 120 100 Other: # Voids 1 # Bowel Movements 1 1 - Labs CBC & Chem 7: 05/07/19 05:59 05/09/19 06:48 Labs: Abnormal Lab Results - Last 24 Hours (Table) 05/09/19 05/09/19 05/10/19 Range/Units 17:59 20:36 06:47 POC Glucose (mg/dL) 248 H 251 H 219 H (75-99) mg/dL 05/10/19 Range/Units 11:40 POC Glucose (mg/dL) 121 H (75-99) mg/dL Assessment and Plan Plan: Assessment: 1. End-stage renal disease maintained on hemodialysis on Thursday schedule. 2. Hyperkalemia secondary to chronic kidney disease and Bactrim. He's also follow-up with vascular surgery outpatient to rule out recirculation. 3. Insulin-dependent diabetes mellitus. 4. Volume overload. Plan: Currently seen while undergoing hemodialysis. Follow-up with vascular surgery outpatient. Potential discharge after dialysis today.
[2019-05-10] MEDS: ASPIRIN 81 MG PO SCH (12:20)
[2019-05-10] MEDS: FAMOTIDINE 20 MG TAB PO SCH (12:20)
[2019-05-10] MEDS: TORSEMIDE 20 MG TAB PO SCH (12:25)
[2019-05-10] MEDS: SODIUM CHLORIDE 0.9% 1,000 ML IV SCH (12:49)
[2019-05-10] MEDS: ISOSORBIDE MONONITRATE ER 30 MG TAB.ER.24H PO SCH (12:50)
[2019-05-10 13:25] VITALS: BP 114/53; PULSE 62; RESP 20; TEMP 98
--- NOTE | 2019-05-10 14:27 | PN ---
PROGRESS NOTE DATE OF SERVICE: 05/10/2019 REASON FOR FOLLOWUP: Left foot wound and leg cellulitis. INTERVAL HISTORY: The patient is currently afebrile, has been breathing comfortably. The patient denies having any chest pain or shortness of breath or cough. Denies any abdominal pain. The patient is complaining of constipation. No bowel movement. PHYSICAL EXAMINATION: Blood pressure 114/53 with a pulse of 62, temperature 98. General description is elderly male, lying in bed in no distress. RESPIRATORY SYSTEM: Unlabored breathing, clear to auscultation anteriorly. HEART: S1, S2. Regular rate and rhythm. ABDOMEN: Soft, no tenderness. EXTREMITIES: Left foot is currently dressed up with no obvious drainage on the dressing. LABS: No new labs have been obtained today. DIAGNOSTIC IMPRESSION AND PLAN: Patient with left foot wound with secondary cellulitis. Patient at this time to continue with vancomycin through dialysis for a total of 2 weeks. Local wound care with dry dressing with close outpatient followup. MMODL / IJN: [id number] /
--- NOTE | 2019-05-12 11:21 | CDI ---
Documentation Clarification Form Date: 05/12/19 From: Leigh Jin Phone: If you have a question about this query, please contact Kiley Hussein, Children'S Attendant at [phone] between 8am and 5pm. Admit Date: 05/04/19 Discharge Date: 05/10/19 Patient Name: Mo Mitchell Visit Number: [id number] ATTENTION: The Clinical Documentation Specialists (CDI) and [facility] Coding Staff appreciate your assistance in clarifying documentation. Please respond to the clarification below the line at the bottom and electronically sign. The CDI & [facility] Coding staff will review the response and follow-up if needed. Please note: Queries are made part of the Legal Health Record. If you have any questions, please contact the author of this message via ITS. Dear Dr. Marsh The diagnosis acute hypoxic respiratory failure was documented in the Dr. Peter's consult note on 05/05, but is not noted in subsequent documentation. History/Risk Factors: Fluid overload, ESRD, Obstructive sleep apnea, diastolic CHF, Clinical Indicators: Decreased pulse ox, dyspnea on exertion, became anxious on the morning of 05/05 Vital signs: T. 98, P. 42, R. 18, BP 116/49 Pulse ox. 95% on admit, down to 92 & 93% several times on 05/04 Lung/Breathing assessment: Diminished breath sounds at the bases minimal crackles at the left base documented in your consult note Treatment: Ventolin inhalation therapy Continuous pulse ox Please clarify if the acute respiratory failure was Present/active this admission Treated and resolved this admission Ruled out Other, please specify Clinically unable to determine MTDD
--- NOTE | 2019-05-12 11:32 | CDI ---
Documentation Clarification Form Date: 05/12/19 From: Leigh iJn Phone: If you have a question about this query, please contact Kiley Hussein Cotton Feeder at [phone] between 8am and 5pm. Admit Date: 05/04/19 Discharge Date:05/10/19 Patient Name: Mo Mitchell Visit Number: [id number] ATTENTION: The Clinical Documentation Specialists (CDI) and [facility] Coding Staff appreciate your assistance in clarifying documentation. Please respond to the clarification below the line at the bottom and electronically sign. The CDI & [facility] Coding staff will review the response and follow-up if needed. Please note: Queries are made part of the Legal Health Record. If you have any questions, please contact the author of this message via ITS. Dear Dr. Mckenzie Cellulitis of the left foot is documented in Dr. Shelton's consult note, progress notes and the discharge summary. On Bactrim prior to admission Patient history/risk factors: Wound from injury of left foot, DM, peripheral neuropathy, peripheral vascular disease Clinical Indicators: Pain, swelling, redness Radiology: L. foot: mild to moderate diffuse subcutaneous edema with slightly more prominent edema along the dorsal surface of hindfoot level extending laterally. No well-defined thick walled drainable abscess. Labs: WBC 13.3, glucose 221 Treatment: Medication: Outpatient PO Bactrim, IV Vancomycin as inpatient In your professional opinion, can cellulitis be further specified as one of the following? Associated with diabetes Not associated with diabetes Other(please specify): Unable to determine MTDD
--- NOTE | 2019-05-12 11:58 | P.PN ---
Progress Note - Text Progress Note Date: 05/12/19 For documentation purposes, I did not document any were in the chart hypoxic or hypercapnic respiratory failure because he did not exist. And I'm not responsible for what the Dr. Peter documented on the chart please send documentation verification to her box rather than mine.
--- NOTE | 2019-05-16 13:18 | CDI ---
Documentation Clarification Form Date: 05/16/19 From: Leigh Jin Phone: If you have a question about this query, please contact Kiley Hussein, Acoustical T[employer] Carpenters Supervisor at [phone] between 8am and 5pm. Admit Date: 05/04/19 Discharge Date:05/10/19 Patient Name: Mo Mitchell Visit Number: [id number] ATTENTION: The Clinical Documentation Specialists (CDI) and [facility] Coding Staff appreciate your assistance in clarifying documentation. Please respond to the clarification below the line at the bottom and electronically sign. The CDI & [facility] Coding staff will review the response and follow-up if needed. Please note: Queries are made part of the Legal Health Record. If you have any questions, please contact the author of this message via ITS. Dear Dr. Mckenzie Thank you for signing the previous query. Please document a response before signing this query. Cellulitis of the left foot is documented in Dr. Shelton's consult note, progress notes and the discharge summary. On Bactrim prior to admission Patient history/risk factors: Wound from injury of left foot, DM, peripheral neuropathy, peripheral vascular disease Clinical Indicators: Pain, swelling, redness Radiology: L. foot: mild to moderate diffuse subcutaneous edema with slightly more prominent edema along the dorsal surface of hindfoot level extending laterally. No well-defined thick walled drainable abscess. Labs: WBC 13.3, glucose 221 Treatment: Medication: Outpatient PO Bactrim, IV Vancomycin as inpatient In your professional opinion, can cellulits be further specified as one of the following? Associated with diabetes Not associated with diabetes Other(please specify): Unable to determine See Discharge Sum addendum. -due to injury. MTDD
== END 2019-05-10 14:44 | DRG 640 ==
LOC: EC 09:35 → 2SICU 11:44 → 4SSUR 05-06 13:09 → 5NMEDONC 05-09 14:11
PROVIDERS: ADMIT Family Medicine; ATTEND Family Medicine
PROC: 5A1D70Z Performance of Urinary Filtration, Intermittent, Less than 6 Hours Per Day (ICD-10-PCS; principal; 2019-05-04)
PROC: 5A09357 Assistance with Respiratory Ventilation, Less than 24 Consecutive Hours, Continuous Positive Airway Pressure (ICD-10-PCS; 2019-05-04)
DX: E87.5 Hyperkalemia (principal); N18.6 End stage renal disease; I13.2 Hypertensive heart and chronic kidney disease with heart failure and with stage 5 chronic kidney disease, or end stage renal disease; I42.9 Cardiomyopathy, unspecified; I48.11 Longstanding persistent atrial fibrillation; I48.3 Typical atrial flutter; I50.32 Chronic diastolic (congestive) heart failure; L03.116 Cellulitis of left lower limb; N17.9 Acute kidney failure, unspecified; Z68.42 Body mass index [BMI] 45.0-49.9, adult; E88.89 Other specified metabolic disorders; I27.20 Pulmonary hypertension, unspecified; S91.302A Unspecified open wound, left foot, initial encounter; D63.1 Anemia in chronic kidney disease; E11.22 Type 2 diabetes mellitus with diabetic chronic kidney disease; E11.51 Type 2 diabetes mellitus with diabetic peripheral angiopathy without gangrene; I95.9 Hypotension, unspecified; E11.42 Type 2 diabetes mellitus with diabetic polyneuropathy; R00.1 Bradycardia, unspecified; E11.65 Type 2 diabetes mellitus with hyperglycemia; T36.8X5A Adverse effect of other systemic antibiotics, initial encounter; E66.01 Morbid (severe) obesity due to excess calories; E78.5 Hyperlipidemia, unspecified; G47.33 Obstructive sleep apnea (adult) (pediatric); I08.1 Rheumatic disorders of both mitral and tricuspid valves; I25.10 Atherosclerotic heart disease of native coronary artery without angina pectoris; I25.2 Old myocardial infarction; I69.344 Monoplegia of lower limb following cerebral infarction affecting left non-dominant side; K59.00 Constipation, unspecified; M19.041 Primary osteoarthritis, right hand; M19.042 Primary osteoarthritis, left hand; N40.0 Benign prostatic hyperplasia without lower urinary tract symptoms; H35.30 Unspecified macular degeneration; K21.9 Gastro-esophageal reflux disease without esophagitis; M10.9 Gout, unspecified; K57.90 Diverticulosis of intestine, part unspecified, without perforation or abscess without bleeding; I65.22 Occlusion and stenosis of left carotid artery; T50.3X5A Adverse effect of electrolytic, caloric and water-balance agents, initial encounter; M47.9 Spondylosis, unspecified; T46.2X6A Underdosing of other antidysrhythmic drugs, initial encounter; Z79.01 Long term (current) use of anticoagulants; Z79.4 Long term (current) use of insulin; Z79.51 Long term (current) use of inhaled steroids; Z79.82 Long term (current) use of aspirin; Z79.890 Hormone replacement therapy; Z79.899 Other long term (current) drug therapy; Z96.41 Presence of insulin pump (external) (internal); Z99.2 Dependence on renal dialysis; Z96.651 Presence of right artificial knee joint; Z96.643 Presence of artificial hip joint, bilateral; Z95.1 Presence of aortocoronary bypass graft; Z91.11 Patient's noncompliance with dietary regimen; Z86.74 Personal history of sudden cardiac arrest; Z98.42 Cataract extraction status, left eye; Z98.41 Cataract extraction status, right eye; Z96.1 Presence of intraocular lens; Z82.49 Family history of ischemic heart disease and other diseases of the circulatory system; Z83.3 Family history of diabetes mellitus; Z80.9 Family history of malignant neoplasm, unspecified; Z81.1 Family history of alcohol abuse and dependence
CPT/HCPCS: 36415; 71045; 80048; 80202; 83036; 83605; 83735; 84132; 84439; 84443; 85025; 85027; 85610; 85730; 90935; 93005; 93306; 94640; 94660; 94760; 96365; 96375; 99291

== ENCOUNTER 2019-05-24 16:57 | Inpatient (IN) | payer MEDICARE, BC ==
--- NOTE | 2019-05-24 17:03 | ED ---
General Adult HPI - General Stated complaint: Poss STEMI Time Seen by Provider: 05/24/19 17:01 Source: patient, family, EMS, RN notes reviewed, old records reviewed - History of Present Illness Initial comments: 78-year-old male history of end-stage renal disease, coronary artery disease, peripheral vascular disease presenting with 30 minutes of anterior chest pain. Pain was initially 10 of 10. Patient was given aspirin and nitroglycerin by EMS during transport. Patient states he is having a heart attack. He denies radia ting pain. Denies nausea, denies diaphoresis. He's had no abdominal pain. No fever. No cough. No dyspnea. Patient is on Eliquis history of atrial fibrillation. - Related Data Home Medications Medication Instructions Recorded Confirmed Aspirin [Adult Low Dose Aspirin EC] 81 mg PO DAILY@169904/27/17 05/24/19 Acetaminophen [Tylenol Arthritis] 1,300 mg PO Q12H PRN 08/06/17 05/24/19 Isosorbide Mononitrate [Isosorbide 30 mg PO DAILY@1300 08/06/17 05/24/19 Mononitrate ER] Nitroglycerin Sl Tabs [Nitrostat] 0.4 mg SUBLINGUAL Q5M PRN 08/06/17 05/24/19 Albuterol Inhaler [Ventolin Hfa 2 puff INHALATION RT-Q4H PRN 10/26/17 05/24/19 Inhaler] Budesonide/Formoterol Fumarate 2 puff INHALATION RT-BID@0800,1700 10/26/17 05/24/19 [Symbicort 160-4.5 Mcg Inhaler] Allopurinol [Zyloprim] 200 mg PO DAILY@17004/08/18 05/24/19 Calcium Acetate [PhosLo] 667 mg PO QID@08,12,17,21 04/08/18 05/24/19 Ergocalciferol (Vitamin D2) 50,000 unit PO Q14D@169904/08/18 05/24/19 [Drisdol] Apixaban [Eliquis] 2.5 mg PO BID@0800,1700 05/04/19 05/24/19 Docusate [Colace] 100 mg PO DAILY PRN 05/04/19 05/24/19 Famotidine [Pepcid] 20 mg PO DAILY@1300 05/04/19 05/24/19 Lidocaine-Prilocaine Cream [Emla 1 applic TOPICAL TUTHSA@0800 05/04/19 05/24/19 Cream 2.5%/2.5%] Midodrine HCl [ProAmatine] 10 mg PO DIRECTED PRN 05/04/19 05/24/19 Polyethylene Glycol 3350 [Miralax] 17 gm PO DAILY PRN 05/04/19 05/24/19 Pravastatin Sodium [Pravachol] 40 mg PO HS@2100 05/04/19 05/24/19 Tamsulosin HCl [Flomax] 0.4 mg PO BID@0800,1700 05/04/19 05/24/19 Torsemide [Demadex] 100 mg PO DAILY@0800 05/04/19 05/24/19 Bisacodyl [Dulcolax] 10 mg RECTAL DAILY PRN 05/24/19 05/24/19 DULoxetine HCL [Cymbalta] 30 mg PO DAILY@0800 05/24/19 05/24/19 INSULIN ASPART (NovoLOG) [NovoLOG See Protocol SQ ACHS 05/24/19 05/24/19 (formulary)] Insulin Detemir (Levemir) [Levemir] 40 unit SQ HS@2130 05/24/19 05/24/19 Melatonin 10 mg PO HS@209905/24/19 05/24/19 Na Phos,M-B/Na Phos,Di-Ba [Fleet 133 ml RECTAL DAILY PRN 05/24/19 05/24/19 Adult] Pregabalin [Lyrica] 150 mg PO BID@0800,1700 05/24/19 05/24/19 Previous Rx's Medication Instructions Recorded Levothyroxine Sodium [Synthroid] 137 mcg PO DAILY@0630 tab 05/09/19 traMADol HCL [Ultram] 50 mg PO Q8HR PRN #9 tab 05/09/19 Allergies Allergy/AdvReac Type Severity Reaction Status Date / Time No Known Allergies Allergy Verified 05/24/19 17:00 Review of Systems ROS Statement: Those systems with pertinent positive or pertinent negative responses have been documented in the HPI. ROS Other: All systems not noted in ROS Statement are negative. 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 Last Myocardial Infarction Date:: 05/08/17 History of Any Multi-Drug Resistant Organisms: None Reported Past Surgical History: Cardiac Ablation, Heart Catheterization, Joint Replacement, Orthopedic Surgery, Tonsillectomy Additional Past Surgical History / Comment(s): Temporary hemodialysis cath R chest, fistula L upper arm, cardioversions x2, pericardial effusion drainage, R caratid endartectomy, bilateral cataract surgery/lens implants, bilateral hands trigger finger releases, bilateral knee arthroscopies, R total knee arthroplasty, bilateral total hip arthroplasties, R carpal tunnel release. Past Anesthesia/Blood Transfusion Reactions: No Reported Reaction Smoking Status: Never smoker - Past Family History Mother Family Medical History: Diabetes Mellitus, Hyperlipidemia, Hypertension, Myocardial Infarction ([place]) Daughter(s) Family Medical History: Cancer Father Additional Family Medical History / Comment(s): alcoholic General Exam General appearance: alert, in no apparent distress Head exam: Present: atraumatic, normocephalic Eye exam: Present: normal appearance, PERRL ENT exam: Present: normal exam Neck exam: Present: normal inspection. Absent: tenderness, meningismus Respiratory exam: Present: wheezes, rales. Absent: respiratory distress Cardiovascular Exam: Present: regular rate, normal rhythm GI/Abdominal exam: Present: soft, distended. Absent: tenderness, guarding Extremities exam: Present: pedal edema, other (Bilateral dressings.) Neurological exam: Present: alert, oriented X3, CN II-XII intact. Absent: motor sensory deficit Skin exam: Present: warm, dry. Absent: cyanosis, diaphoretic Course Vital Signs 05/24/19 05/24/19 16:58 17:30 Temperature 97.9 F Pulse Rate 65 90 Respiratory 19 18 Rate Blood Pressure 103/56 101/56 O2 Sat by Pulse 96 96 Oximetry - Reevaluation(s) Reevaluation #1: 05/24/19 17:03 Patient given aspirin and nitroglycerin by EMS prior to arrival. Case is discussed with Dr. Gonsales regarding ischemic changes. Cath report from [address] Gonsales and patient had triple-vessel disease at that time. No need for heart catheterization given his known triple-vessel disease. At the time of this In 2018 there was no intervention available to this patient. 05/24/19 17:21 Reevaluation #2: 05/24/19 17:20 Patient is initially 0-10 chest pain after nitroglycerin. He does develop worsening chest pain. Given morphine, placed on nitroglycerin infusion. 05/24/19 18:09 EKG Findings - EKG Comments: EKG Findings:: Initial EKG at 17 00, sinus rhythm with ST segment elevation in aVR, diffuse ST segment depression and T-wave inversion in the lateral precordial leads concerning for ischemia. Rate of 64, CO interval 158, QRS duration 90, QTC 387. Repeat EKG obtained at 1716, sinus rhythm with first- degree AV block, persistent ST segment elevation in aVR, improved ST segment depression in the lateral precordial leads, rate of 64, CO interval 232, QRS duration 88, QTC 383. EKG is compared to previous EKG February 2020. Medical Decision Making - Medical Decision Making 78-year-old male presenting with typical chest pain. EKG consistent with ischemia. Case medially discussed with cardiology and outside catheter port had been reviewed. This was not available in the electronic medical record at this institution. He is initiated on heparin and nitroglycerin infusion. Given both morphine and fentanyl for pain control. He has chest x-ray showing improved aeration with chronic fibrotic changes. He has a stable hemoglobin 9.6 which is baseline for this patient. Elevated creatinine consistent with end- stage renal disease, and a stable potassium of 4.2. He has an elevated BNP and initial troponin of 0.019. Patient is very high risk, given his comorbidities. He is admitted on heparin and nitroglycerin. Case is discussed with the admitting physician Dr. Corona, will accept admission. - Lab Data Result diagrams: 05/24/19 17:04 05/24/19 17:04 Lab Results 05/24/19 05/24/19 05/24/19 Range/Units 17:04 17:04 17:04 WBC 7.4 (3.8-10.6) k/uL RBC 2.89 L (4.30-5.90) m/uL Hgb 9.6 L (13.0-17.5) gm/dL Hct 31.1 L (39.0-53.0) % MCV 107.6 H (80.0-100.0) fL MCH 33.3 (25.0-35.0) pg MCHC 31.0 (31.0-37.0) g/dL RDW 15.0 (11.5-15.5) % Plt Count 215 (150-450) k/uL Neutrophils % 79 % Lymphocytes % 8 % Monocytes % 6 % Eosinophils % 2 % Basophils % 0 % Neutrophils # 5.9 (1.3-7.7) k/uL Lymphocytes # 0.6 L (1.0-4.8) k/uL Monocytes # 0.5 (0-1.0) k/uL Eosinophils # 0.2 (0-0.7) k/uL Basophils # 0.0 (0-0.2) k/uL Hypochromasia Moderate Macrocytosis Marked A PT 11.3 (9.0-12.0) sec INR 1.1 (<1.2) APTT 30.9 H (22.0-30.0) sec Sodium 133 L (137-145) mmol/L Potassium 4.2 (3.5-5.1) mmol/L Chloride 90 L (98-107) mmol/L Carbon Dioxide 32 H (22-30) mmol/L Anion Gap 11 mmol/L BUN 16 (9-20) mg/dL Creatinine 3.79 H (0.66-1.25) mg/dL Est GFR (CKD-EPI)AfAm 16 (>60 ml/min/1.73 sqM) Est GFR (CKD-EPI)NonAf 14 (>60 ml/min/1.73 sqM) Glucose 208 H (74-99) mg/dL Calcium 8.5 (8.4-10.2) mg/dL Magnesium 2.0 (1.6-2.3) mg/dL Total Bilirubin 0.6 (0.2-1.3) mg/dL AST 30 (17-59) U/L ALT 14 (4-49) U/L Alkaline Phosphatase 79 (38-126) U/L Troponin I (0.000-0.034) ng/mL NT-Pro-B Natriuret Pep pg/mL Total Protein 7.5 (6.3-8.2) g/dL Albumin 4.3 (3.5-5.0) g/dL 05/24/19 05/24/19 Range/Units 17:04 17:04 WBC (3.8-10.6) k/uL RBC (4.30-5.90) m/uL Hgb (13.0-17.5) gm/dL Hct (39.0-53.0) % MCV (80.0-100.0) fL MCH (25.0-35.0) pg MCHC (31.0-37.0) g/dL RDW (11.5-15.5) % Plt Count (150-450) k/uL Neutrophils % % Lymphocytes % % Monocytes % % Eosinophils % % Basophils % % Neutrophils # (1.3-7.7) k/uL Lymphocytes # (1.0-4.8) k/uL Monocytes # (0-1.0) k/uL Eosinophils # (0-0.7) k/uL Basophils # (0-0.2) k/uL Hypochromasia Macrocytosis PT (9.0-12.0) sec INR (<1.2) APTT (22.0-30.0) sec Sodium (137-145) mmol/L Potassium (3.5-5.1) mmol/L Chloride (98-107) mmol/L Carbon Dioxide (22-30) mmol/L Anion Gap mmol/L BUN (9-20) mg/dL Creatinine (0.66-1.25) mg/dL Est GFR (CKD-EPI)AfAm (>60 ml/min/1.73 sqM) Est GFR (CKD-EPI)NonAf (>60 ml/min/1.73 sqM) Glucose (74-99) mg/dL Calcium (8.4-10.2) mg/dL Magnesium (1.6-2.3) mg/dL Total Bilirubin (0.2-1.3) mg/dL AST (17-59) U/L ALT (4-49) U/L Alkaline Phosphatase (38-126) U/L Troponin I 0.019 (0.000-0.034) ng/mL NT-Pro-B Natriuret Pep 9370 pg/mL Total Protein (6.3-8.2) g/dL Albumin (3.5-5.0) g/dL Critical Care Time Critical Care Time: Yes Total Critical Care Time: 35 Disposition Clinical Impression: Acute non-ST elevation myocardial infarction (NSTEMI), Chest pain Disposition: ADMITTED IP TO THIS [facility] Condition: Serious Is patient prescribed a controlled substance at d/c from ED?: No Referrals: Paddy Corona MD [Primary Care Provider] - 1-2 days Decision to Admit Reason: Admit from EC Decision Date: 05/24/19 Decision Time: 18:14
[2019-05-24] MEDS ORDERED: ATORVASTATIN 80 MG TAB PO STA (17:08)
--- NOTE | 2019-05-24 17:18 | XR ---
EXAMINATION TYPE: XR chest 1V portable DATE OF EXAM: 05/24/2019 COMPARISON: 05/06/2019 HISTORY: Chest pain. Short of breath. TECHNIQUE: FINDINGS: There is some coarsening of interstitial markings. There is no gross heart failure. Thoraci c aorta is atheromatous. There is no definite pleural effusion. There are chest leads. IMPRESSION: Pulmonary fibrotic changes. There is clearing of the pleural fluid and infiltrate left mic ng base compared to old exam.
[2019-05-24 17:21] LABS: Basophils % (A) 0 %; Eosinophils # (A) 0.2 k/uL (0-0.7); Eosinophils % (A) 2 %; HCT 31.1 % (39.0-53.0); HGB 9.6 gm/dL (13.0-17.5); Hypochromasia Moderate; Lymphocytes # (A) 0.6 k/uL (1.0-4.8); Lymphocytes % (A) 8 %; MCH 33.3 pg (25.0-35.0); MCV 107.6 fL (80.0-100.0); Mean Platelet Volume 8.3; Monocytes # (A) 0.5 k/uL (0-1.0); Monocytes % (A) 6 %; Neutrophils # (A) 5.9 k/uL (1.3-7.7); Neutrophils % (A) 79 %; Platelet Count 215 k/uL (150-450); RBC 2.89 m/uL (4.30-5.90); WBC 7.4 k/uL (3.8-10.6)
[2019-05-24 17:23] LABS: Macrocytosis Marked
[2019-05-24 17:29] LABS: Albumin 4.3 g/dL (3.5-5.0); Calcium 8.5 mg/dL (8.4-10.2); Potassium 4.2 mmol/L (3.5-5.1); Total Bilirubin 0.6 mg/dL (0.2-1.3); Total Protein 7.5 g/dL (6.3-8.2)
[2019-05-24 17:30] LABS: INR 1.1 (<1.2); Partial Thromboplastin Time 30.9 sec (22.0-30.0); Prothrombin Time 11.3 sec (9.0-12.0)
[2019-05-24] MEDS ORDERED: MORPHINE SULFATE 4 MG/ML SYRINGE IM STA (17:46)
[2019-05-24] MEDS ORDERED: NITROGLYCERIN-D5W PMX 50 MG in DEXTROSE/WATER 1 250ML.BAG IV ONE (18:00)
[2019-05-24] MEDS ORDERED: fentaNYL (PF) 50 MCG/ML 2 ML AMP IVP STA (18:00)
[2019-05-24] MEDS ORDERED: HEPARIN SODIUM,PORCINE 5,000 UNIT/ML 1 ML VIAL IV PRN (18:01)
[2019-05-24] MEDS ORDERED: NALOXONE 0.4 MG/ML 1 ML VIAL IV PRN (18:05)
[2019-05-24] MEDS ORDERED: BISACODYL 10 MG SUPP RECTAL PRN (18:11)
[2019-05-24] MEDS ORDERED: DOCUSATE 100 MG CAP PO PRN (18:11)
[2019-05-24] MEDS ORDERED: MIDODRINE 5 MG TAB PO PRN (18:11)
[2019-05-24] MEDS: HEPARIN SOD,PORK IN 0.45% NACL 25,000 UNIT in 0.45% NACL 1 250ML.BAG IV SCH (18:47)
[2019-05-24 21:47] LABS: Glucose,Whole Blood 157 mg/dL (75-99)
[2019-05-24] MEDS: INSULIN DETEMIR (LEVEMIR) 100 UNIT/ML SYR SQ SCH (22:48)
[2019-05-25 06:22] LABS: Glucose,Whole Blood 206 mg/dL (75-99)
[2019-05-25 06:25] LABS: Basophils % (A) 0 %; Eosinophils # (A) 0.1 k/uL (0-0.7); Eosinophils % (A) 1 %; HGB 9.6 gm/dL (13.0-17.5); Hypochromasia Marked; Lymphocytes # (A) 0.9 k/uL (1.0-4.8); Lymphocytes % (A) 11 %; MCH 32.8 pg (25.0-35.0); MCHC 30.2 g/dL (31.0-37.0); MCV 108.9 fL (80.0-100.0); Mean Platelet Volume 9.2; Monocytes # (A) 0.5 k/uL (0-1.0); Monocytes % (A) 7 %; Neutrophils # (A) 6.3 k/uL (1.3-7.7); Neutrophils % (A) 77 %; Platelet Count 229 k/uL (150-450); RBC 2.94 m/uL (4.30-5.90); RDW 14.9 % (11.5-15.5); WBC 8.2 k/uL (3.8-10.6)
[2019-05-25 06:26] LABS: Macrocytosis Marked
[2019-05-25] MEDS: CALCIUM ACETATE 667 MG TAB PO SCH ×5 (06:46→22:16)
[2019-05-25] MEDS: LEVOTHYROXINE 137 MCG TAB PO SCH (06:48)
--- NOTE | 2019-05-25 09:21 | P.CRDCN ---
History of Present Illness Consult date: 05/25/19 Requesting physician: Paddy Corona Consult reason: chest pain Chief complaint: Chest pain History of present illness: This is a 78-year-old gentleman who follows with Dr. Topete in the office. He has a known history of coronary artery disease, patient underwent a cardiac catheterization in August 2017 that revealed triple vessel coronary artery disease with diffuse significant lesion in the mid LAD, proximal circumflex and proximal mid RCA the films were reviewed that time by Dr. Avelina Koch and Dr. King, patient was felt to not be an ideal candidate for either procedure. Medical therapy was advised at that time. The patient also has a history of end-stage renal disease on dialysis 3 times a week, hypertension, hyperlipidemia, obesity, persistent atrial fibrillation, on Eliquis for anticoagulation, PAD with history of carotid disease. Patient has a history of sleep apnea, prior CVA,diabetes, and GERD. He presents to the hospital on this admission with symptoms of a midsternal chest pressure, which the patient states was quite severe. He felt as though he was having a heart attack. He was given sublingual nitroglycerin on route here, which relieved the symptoms according to the patient. The patient also states he had 1 brief episode of chest discomfort while here in the hospital. At the time of my examination this morning patient is quite comfortable, denies any chest discomfort. Chest x-ray showed pulmonary fibrotic changes, clearing of the pleural fluid and infiltrate in the left lung base compared with prior exam. His EKG on arrival here showed atrial flutter with controlled VR. ST-T wave changes noted in the inferior lateral leads. Blood pressure 100/50 with a heart rate in the 60s, he is afebrile. White blood cell count on admission 7.4, hemoglobin 9.6, platelet count 2:15. Sodium 133, potassium 4.2, BUN 16, creatinine 3.7. Initial troponin on arrival here 0.019, subsequent troponin 0.59, and 1.5. BNP level 9370. At the time of my examination this morning, patient is sitting up in his chair at bedside, denies any chest discomfort at present. 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 Last Myocardial Infarction Date:: 05/08/17 History of Any Multi-Drug Resistant Organisms: None Reported Past Surgical History: Cardiac Ablation, Heart Catheterization, Joint Replacement, Orthopedic Surgery, Tonsillectomy Additional Past Surgical History / Comment(s): Temporary hemodialysis cath R chest, fistula L upper arm, cardioversions x2, pericardial effusion drainage, R caratid endartectomy, bilateral cataract surgery/lens implants, bilateral hands trigger finger releases, bilateral knee arthroscopies, R total knee arthroplasty, bilateral total hip arthroplasties, R carpal tunnel release. Past Anesthesia/Blood Transfusion Reactions: No Reported Reaction Past Psychological History: No Psychological Hx Reported Additional Psychological History / Comment(s): Pt resides with his spouse. He has [facility], nursing for bilateral foot wound care and PT. He has a walker and a wheelchair. His spouse does the driving. He has home oxygen and Cpap device and Morro device/glucometer. Smoking Status: Never smoker Past Alcohol Use History: Unable to Obtain Past Drug Use History: Unable to Obtain - Past Family History Mother Family Medical History: Diabetes Mellitus, Hyperlipidemia, Hypertension, Myocardial Infarction ([place]) Daughter(s) Family Medical History: Cancer Father Additional Family Medical History / Comment(s): alcoholic Medications and Allergies Home Medications Medication Instructions Recorded Confirmed Type Aspirin [Adult Low Dose Aspirin EC] 81 mg PO DAILY@1700 04/27/17 05/24/19 History Acetaminophen [Tylenol Arthritis] 1,300 mg PO Q12H PRN 08/06/17 05/24/19 History Isosorbide Mononitrate [Isosorbide 30 mg PO DAILY@1300 08/06/17 05/24/19 History Mononitrate ER] Nitroglycerin Sl Tabs [Nitrostat] 0.4 mg SUBLINGUAL Q5M PRN 08/06/17 05/24/19 History Albuterol Inhaler [Ventolin Hfa 2 puff INHALATION RT-Q4H PRN 10/26/17 05/24/19 History Inhaler] Budesonide/Formoterol Fumarate 2 puff INHALATION RT-BID@0800,1700 10/26/17 05/24/19 History [Symbicort 160-4.5 Mcg Inhaler] Allopurinol [Zyloprim] 200 mg PO DAILY@1700 04/08/18 05/24/19 History Calcium Acetate [PhosLo] 667 mg PO QID@08,,,04/08/18 05/24/19 History Ergocalciferol (Vitamin D2) 50,000 unit PO Q14D@1700 04/08/18 05/24/19 History [Drisdol] Apixaban [Eliquis] 2.5 mg PO BID@0800,1700 05/04/19 05/24/19 History Docusate [Colace] 100 mg PO DAILY PRN 05/04/19 05/24/19 History Famotidine [Pepcid] 20 mg PO DAILY@1300 05/04/19 05/24/19 History Lidocaine-Prilocaine Cream [Emla 1 applic TOPICAL TUTHSA@0800 05/04/19 05/24/19 History Cream 2.5%/2.5%] Midodrine HCl [ProAmatine] 10 mg PO DIRECTED PRN 05/04/19 05/24/19 History Polyethylene Glycol 3350 [Miralax] 17 gm PO DAILY PRN 05/04/19 05/24/19 History Pravastatin Sodium [Pravachol] 40 mg PO HS@2100 05/04/19 05/24/19 History Tamsulosin HCl [Flomax] 0.4 mg PO BID@0800,1700 05/04/19 05/24/19 History Torsemide [Demadex] 100 mg PO DAILY@0800 05/04/19 05/24/19 History Levothyroxine Sodium [Synthroid] 137 mcg PO DAILY@0630 tab 05/09/19 05/24/19 Rx traMADol HCL [Ultram] 50 mg PO Q8HR PRN #9 tab 05/09/19 05/24/19 Rx Bisacodyl [Dulcolax] 10 mg RECTAL DAILY PRN 05/24/19 05/24/19 History DULoxetine HCL [Cymbalta] 30 mg PO DAILY@0800 05/24/19 05/24/19 History INSULIN ASPART (NovoLOG) [NovoLOG See Protocol SQ ACHS 05/24/19 05/24/19 History (formulary)] Insulin Detemir (Levemir) [Levemir] 40 unit SQ HS@2130 05/24/19 05/24/19 History Melatonin 10 mg PO HS@2100 05/24/19 05/24/19 History Na Phos,M-B/Na Phos,Di-Ba [Fleet 133 ml RECTAL DAILY PRN 05/24/19 05/24/19 History Adult] Pregabalin [Lyrica] 150 mg PO BID@0800,1700 05/24/19 05/24/19 History Allergies Allergy/AdvReac Type Severity Reaction Status Date / Time No Known Allergies Allergy Verified 05/24/19 17:00 Physical Exam Vitals: Vital Signs Temp Pulse Pulse Resp BP BP Pulse Ox 05/25/19 04:00 97.6 F 62 18 100/53 98 05/24/19 23:30 98.1 F 65 18 113/51 97 05/24/19 23:29 98.1 F 65 18 113/51 97 05/24/19 22:50 68 18 102/52 98 05/24/19 21:30 98.2 F 65 18 98/60 97 05/24/19 20:19 68 18 139/53 98 05/24/19 18:41 67 18 106/81 99 05/24/19 18:03 64 18 99/69 99 05/24/19 17:30 90 18 101/56 96 05/24/19 16:58 97.9 F 65 19 103/56 96 Intake and Output 05/24/19 05/25/19 05/25/19 22:59 06:59 14:59 Intake Total 0.7 51.113 240 Balance 0.7 51.113 240 Intake: Intake, IV Titration 0.7 51.113 Amount Heparin Sod,Pork in 0.45% 51.113 NaCl 25,000 unit In 0.45 % NaCl 1 250ml.bag @ 8 UNITS/KG/HR 9.798 mls/hr IV .Q24H [facility] Rx#: [id number] Nitroglycerin-D5w Pmx 50 0.7 mg In Dextrose/Water 1 250ml.bag @ 5 MCG/MIN 1.5 mls/hr IV .Q24H [facility] Rx#: [id number] Oral 240 Other: Voiding Method Diaper Weight 122.47 kg 130.4 kg PHYSICAL EXAMINATION: GENERAL: 78-year-old gentleman in no acute distress at the time of my examination HEENT: Head is atraumatic, normocephalic. Pupils equal, round. Sclera anicteric. Conjunctiva are clear. Mucous membranes of the mouth are moist. Neck is supple. There is no elevated jugular venous pressure. No carotid bruit is heard. HEART EXAMINATION: Heart S1 and S2 systolic murmur is heard CHEST EXAMINATION: Lungs reveal crackles to bilateral bases. ABDOMEN: Soft, obese, nontender. Bowel sounds are heard. No organomegaly noted. EXTREMITIES: 2+ peripheral pulses with trace evidence of peripheral edema, evidence of chronic venous stasis. NEUROLOGIC patient is awake, alert and oriented 3 . Results 05/25/19 05:42 05/24/19 17:04 Cardiac Enzymes 05/24/19 05/24/19 05/24/19 Range/Units 17:04 17:04 23:41 AST 30 (17-59) U/L Troponin I 0.019 0.598 H* (0.000-0.034) ng/mL 05/25/19 Range/Units 05:42 AST (17-59) U/L Troponin I 1.560 H* (0.000-0.034) ng/mL Coagulation 05/24/19 05/24/19 05/25/19 Range/Units 17:04 23:41 05:42 PT 11.3 (9.0-12.0) sec APTT 30.9 H 40.9 H 42.3 H (22.0-30.0) sec CBC 05/24/19 05/25/19 Range/Units 17:04 05:42 WBC 7.4 8.2 (3.8-10.6) k/uL RBC 2.89 L 2.94 L (4.30-5.90) m/uL Hgb 9.6 L 9.6 L (13.0-17.5) gm/dL Hct 31.1 L 32.0 L (39.0-53.0) % Plt Count 215 229 (150-450) k/uL Comprehensive Metabolic Panel 05/24/19 Range/Units 17:04 Sodium 133 L (137-145) mmol/L Potassium 4.2 (3.5-5.1) mmol/L Chloride 90 L (98-107) mmol/L Carbon Dioxide 32 H (22-30) mmol/L BUN 16 (9-20) mg/dL Creatinine 3.79 H (0.66-1.25) mg/dL Glucose 208 H (74-99) mg/dL Calcium 8.5 (8.4-10.2) mg/dL AST 30 (17-59) U/L ALT 14 (4-49) U/L Alkaline Phosphatase 79 (38-126) U/L Total Protein 7.5 (6.3-8.2) g/dL Albumin 4.3 (3.5-5.0) g/dL Current Medications Generic Name Dose Route Start Last Admin Trade Name Freq PRN Reason Stop Dose Admin Albuterol Sulfate 2.5 mg 05/24/19 18:11 Ventolin Nebulized INHALATION RT-Q4H PRN Shortness Of Breath Aspirin 81 mg 05/25/19 17:00 Aspirin PO DAILY@1700 [facility] Bisacodyl 10 mg 05/24/19 18:11 Dulcolax RECTAL DAILY PRN Constipation Budesonide/Formoterol Fumarate 2 puff 05/25/19 08:00 Symbicort 160-4.5 Mcg Inhaler INHALATION RT-BID@0800,1700 [facility] Calcium Acetate 667 mg 05/24/19 21:00 05/25/19 06:46 Phoslo PO Not Given QID@08,12,17,21 [facility] Docusate Sodium 100 mg 05/24/19 18:11 Colace PO DAILY PRN Constipation Famotidine 20 mg 05/25/19 13:00 Pepcid PO DAILY@1300 [facility] Heparin Sodium (Porcine) 0 unit 05/24/19 18:01 Heparin IV PER PROTOCOL PRN Low PTT Protocol Hydromorphone HCl 0.5 mg 05/24/19 18:05 Dilaudid IVP Q3HR PRN Moderate Pain Nitroglycerin/Dextrose 50 mg/ 250 mls @ 1.5 mls/hr 05/24/19 18:00 05/24/19 19:25 IV Solution IV 05/25/19 17:59 0 mcg/min .Q24H [facility] 0 mls/hr Titration Protocol 5 MCG/MIN Heparin Sodium/Sodium Chloride 250 mls @ 9.798 mls/hr 05/24/19 18:15 05/25/19 00:00 25,000 unit/ Sodium Chloride IV 10 units/kg/hr .Q24H [facility] 12.247 mls/hr Titration Protocol 8 UNITS/KG/HR Insulin Detemir 40 unit 05/24/19 21:30 05/24/19 22:48 Levemir SQ 10 unit HS@2130 [facility] Administration Levothyroxine Sodium 137 mcg 05/25/19 06:30 05/25/19 06:48 Synthroid PO 137 mcg DAILY@0630 [facility] Administration Midodrine 10 mg 05/24/19 18:11 Proamatine PO DAILY PRN DIALYSIS DAYS Naloxone HCl 0.2 mg 05/24/19 18:05 Narcan IV Q2M PRN Opioid Reversal Torsemide 100 mg 05/25/19 08:00 Demadex PO DAILY@0800 [facility] Intake and Output 05/24/19 05/25/19 05/25/19 22:59 06:59 14:59 Intake Total 0.7 51.113 240 Balance 0.7 51.113 240 Intake: Intake, IV Titration 0.7 51.113 Amount Heparin Sod,Pork in 0.45% 51.113 NaCl 25,000 unit In 0.45 % NaCl 1 250ml.bag @ 8 UNITS/KG/HR 9.798 mls/hr IV .Q24H [facility] Rx#: [id number] Nitroglycerin-D5w Pmx 50 0.7 mg In Dextrose/Water 1 250ml.bag @ 5 MCG/MIN 1.5 mls/hr IV .Q24H [facility] Rx#: [id number] Oral 240 Other: Voiding Method Diaper Weight 122.47 kg 130.4 kg 05/25/19 05:42 05/24/19 17:04 EKG Interpretations (text) EKG shows atrial flutter with controlled VR Assessment and Plan Plan: Assessment and plan #1 symptoms of a midsternal chest pressure and heaviness, suggestive of possible acute coronary syndrome. Troponin 0.019, 0.59, 1.5. EKG shows a normal sinus rhythm with blocked APCs, ST-T changes noted in the inferior lateral leads. #2 history of coronary artery disease with documented triple-vessel disease by cardiac cath in 2018, medical therapy advised at that time, patient was felt at that time not to be a candidate for surgery #3 end-stage renal disease on hemodialysis #4 diabetes #5 hyperlipidemia #6 hypertension #7 sleep apnea #8 persistent atrial flutter #9 prior CVA #10 GERD #11 PAD with carotid artery disease Plan We will obtain a repeat echocardiogram with Doppler study, patient had an echo performed in April we will do a limited echo at this time to assess the patient's LV function. Continue baby aspirin, Lipitor 80, IV heparin, IV nitro glycerin drip, patient is not currently on a beta lizette because of bradycardia. Discontinue baby aspirin and start the patient on Plavix. Initiate Ranexa. Further recommendations to follow. DNP note has been reviewed, I agree with a documented findings and plan of care. Patient was seen and examined.
[2019-05-25] MEDS: ALBUTEROL NEBULIZED 2.5 MG/3 ML INHALATION PRN ×4 (09:24→21:45)
[2019-05-25] MEDS: SYMBICORT 160-4.5 MCG INHALER INHALATION SCH ×2 (09:24→17:09)
--- NOTE | 2019-05-25 10:09 | P.NPCON ---
History of Present Illness - Reason for Consult end stage renal disease - History of Present Illness Reason for consultation: End-stage renal disease History of present illness: Patient is a 78-year-old male seen in consultation for end-stage renal disease. He is maintained on hemodialysis on Thursday schedule. Patient did complete his hemodialysis treatment yesterday. Patient states yesterday evening he developed chest heaviness which lasted about 30 minutes. Patient felt as if he was having a heart attack. EMS was called. He is currently maintained on heparin as well as nitroglycerin drip. Chest pain has resolved. No vomiting or diarrhea. No fever or chills. Denies any bleeding. Blood pressure stable. No other complaints at this time. Cardiology is following. Vital signs are stable. General: The patient appeared well nourished and normally developed. HEENT: Head exam is unremarkable. Neck is without jugular venous distension. LUNGS: Lungs are clear to auscultation and percussion. Breath sounds decreased. HEART: Rate and Rhythm are regular. First and second heart sounds normal. No murmurs, rubs or gallops. ABDOMEN: Abdominal exam reveals normal bowel sounds. Obese. EXTREMITITES: No clubbing, cyanosis, or edema. Past Medical History Past Medical History: Atrial Fibrillation, Coronary Artery Disease (CAD), Heart Failure, CVA/TIA, Diabetes Mellitus, Eye Disorder, GERD/Reflux, Hyperlipidemia, Hypertension, Myocardial Infarction ([place]), Osteoarthritis (OA), Renal Disease, Sleep Apnea/CPAP/BIPAP, Syncope, Vascular Disorder Additional Past Medical History / Comment(s): IDDM type II with insulin pump, neuropathy bilateral legs/feet, current bilateral foot wounds, ESRD with hemodialysis M/W/F, chronic anemia, gout bilateral great toes, arthritis bilateral hands/feet/back, 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 Last Myocardial Infarction Date:: 05/08/17 History of Any Multi-Drug Resistant Organisms: None Reported Past Surgical History: Cardiac Ablation, Heart Catheterization, Joint Replacement, Orthopedic Surgery, Tonsillectomy Additional Past Surgical History / Comment(s): Temporary hemodialysis cath R chest, fistula L upper arm, cardioversions x2, pericardial effusion drainage, R caratid endartectomy, bilateral cataract surgery/lens implants, bilateral hands trigger finger releases, bilateral knee arthroscopies, R total knee arthr oplasty, bilateral total hip arthroplasties, R carpal tunnel release. Past Anesthesia/Blood Transfusion Reactions: No Reported Reaction Past Psychological History: No Psychological Hx Reported Additional Psychological History / Comment(s): Pt resides with his spouse. He has [facility], nursing for bilateral foot wound care and PT. He has a walker and a wheelchair. His spouse does the driving. He has home oxygen and Cpap device and Morro device/glucometer. Smoking Status: Never smoker Past Alcohol Use History: Unable to Obtain Past Drug Use History: Unable to Obtain - Past Family History Mother Family Medical History: Diabetes Mellitus, Hyperlipidemia, Hypertension, Myocardial Infarction ([place]) Daughter(s) Family Medical History: Cancer Father Additional Family Medical History / Comment(s): alcoholic Medications and Allergies Home Medications Medication Instructions Recorded Confirmed Type Aspirin [Adult Low Dose Aspirin EC] 81 mg PO DAILY@1700 04/27/17 05/24/19 History Acetaminophen [Tylenol Arthritis] 1,300 mg PO Q12H PRN 08/06/17 05/24/19 History Isosorbide Mononitrate [Isosorbide 30 mg PO DAILY@1300 08/06/17 05/24/19 History Mononitrate ER] Nitroglycerin Sl Tabs [Nitrostat] 0.4 mg SUBLINGUAL Q5M PRN 08/06/17 05/24/19 History Albuterol Inhaler [Ventolin Hfa 2 puff INHALATION RT-Q4H PRN 10/26/17 05/24/19 History Inhaler] Budesonide/Formoterol Fumarate 2 puff INHALATION RT-BID@0800,1700 10/26/17 05/24/19 History [Symbicort 160-4.5 Mcg Inhaler] Allopurinol [Zyloprim] 200 mg PO DAILY@1700 04/08/18 05/24/19 History Calcium Acetate [PhosLo] 667 mg PO QID@08,12,17,21 04/08/18 05/24/19 History Ergocalciferol (Vitamin D2) 50,000 unit PO Q14D@1700 04/08/18 05/24/19 History [Drisdol] Apixaban [Eliquis] 2.5 mg PO BID@0800,1700 05/04/19 05/24/19 History Docusate [Colace] 100 mg PO DAILY PRN 05/04/19 05/24/19 History Famotidine [Pepcid] 20 mg PO DAILY@1300 05/04/19 05/24/19 History Lidocaine-Prilocaine Cream [Emla 1 applic TOPICAL TUTHSA@0800 05/04/19 05/24/19 History Cream 2.5%/2.5%] Midodrine HCl [ProAmatine] 10 mg PO DIRECTED PRN 05/04/19 05/24/19 History Polyethylene Glycol 3350 [Miralax] 17 gm PO DAILY PRN 05/04/19 05/24/19 History Pravastatin Sodium [Pravachol] 40 mg PO HS@2100 05/04/19 05/24/19 History Tamsulosin HCl [Flomax] 0.4 mg PO BID@0800,1700 05/04/19 05/24/19 History Torsemide [Demadex] 100 mg PO DAILY@0800 05/04/19 05/24/19 History Levothyroxine Sodium [Synthroid] 137 mcg PO DAILY@0630 tab 05/09/19 05/24/19 Rx traMADol HCL [Ultram] 50 mg PO Q8HR PRN #9 tab 05/09/19 05/24/19 Rx Bisacodyl [Dulcolax] 10 mg RECTAL DAILY PRN 05/24/19 05/24/19 History DULoxetine HCL [Cymbalta] 30 mg PO DAILY@0800 05/24/19 05/24/19 History INSULIN ASPART (NovoLOG) [NovoLOG See Protocol SQ ACHS 05/24/19 05/24/19 History (formulary)] Insulin Detemir (Levemir) [Levemir] 40 unit SQ HS@2130 05/24/19 05/24/19 History Melatonin 10 mg PO HS@2100 05/24/19 05/24/19 History Na Phos,M-B/Na Phos,Di-Ba [Fleet 133 ml RECTAL DAILY PRN 05/24/19 05/24/19 History Adult] Pregabalin [Lyrica] 150 mg PO BID@0800,1700 05/24/19 05/24/19 History Allergies Allergy/AdvReac Type Severity Reaction Status Date / Time No Known Allergies Allergy Verified 05/24/19 17:00 Physical Exam Vitals: Vital Signs Temp Pulse Pulse Resp BP BP Pulse Ox 05/25/19 09:38 60 05/25/19 09:25 60 05/25/19 04:00 97.6 F 62 18 100/53 98 05/24/19 23:30 98.1 F 65 18 113/51 97 05/24/19 23:29 98.1 F 65 18 113/51 97 05/24/19 22:50 68 18 102/52 98 05/24/19 21:30 98.2 F 65 18 98/60 97 05/24/19 20:19 68 18 139/53 98 05/24/19 18:41 67 18 106/81 99 05/24/19 18:03 64 18 99/69 99 05/24/19 17:30 90 18 101/56 96 05/24/19 16:58 97.9 F 65 19 103/56 96 Intake and Output 05/24/19 05/25/19 05/25/19 22:59 06:59 14:59 Intake Total 0.7 51.113 240 Balance 0.7 51.113 240 Intake: Intake, IV Titration 0.7 51.113 Amount Heparin Sod,Pork in 0.45% 51.113 NaCl 25,000 unit In 0.45 % NaCl 1 250ml.bag @ 8 UNITS/KG/HR 9.798 mls/hr IV .Q24H [facility] Rx#: [id number] Nitroglycerin-D5w Pmx 50 0.7 mg In Dextrose/Water 1 250ml.bag @ 5 MCG/MIN 1.5 mls/hr IV .Q24H [facility] Rx#: [id number] Oral 240 Other: Voiding Method Diaper Weight 122.47 kg 130.4 kg Results - Lab Results Most recent lab results Calcium 8.5 mg/dL (8.4-10.2) 05/24/19 17:04 Magnesium 2.0 mg/dL (1.6-2.3) 05/24/19 17:04 05/25/19 05:42 05/24/19 17:04 Assessment and Plan Plan: Assessment: 1. End-stage renal disease maintained on hemodialysis on Thursday schedule. 2. Chest pain. Rule out acute coronary syndrome. Cardiology following. Maintained on heparin drip. 3. Chronic kidney disease mineral bone disease maintained on PhosLo. 4. Insulin-dependent diabetes mellitus. 5. Chronic systolic CHF with ejection fraction of 45-50% with moderate tricu spid regurgitation. 6. Anemia of chronic kidney disease. We'll try deficiency. Plan: Hemodialysis tomorrow. Thank you for the consultation. I will continue to follow the patient with you during his hospital stay.
[2019-05-25] MEDS: TORSEMIDE 20 MG TAB PO SCH (10:15)
[2019-05-25] MEDS: RANOLAZINE 500 MG TAB.ER.12H PO SCH ×2 (10:23→22:16)
[2019-05-25] MEDS: CLOPIDOGREL 75 MG TAB PO SCH (10:24)
[2019-05-25 11:42] LABS: Glucose,Whole Blood 216 mg/dL (75-99)
[2019-05-25] MEDS: FAMOTIDINE 20 MG TAB PO SCH (13:21)
[2019-05-25 16:53] LABS: Glucose,Whole Blood 208 mg/dL (75-99)
[2019-05-25] MEDS ORDERED: ASPIRIN 81 MG PO SCH (17:00)
[2019-05-25 17:10] LABS: Hepatitis B Surface Antibody Reactive (Non-Reactive); Hepatitis B Surface Antigen Non-Reactive (Non-Reactive)
--- NOTE | 2019-05-25 17:34 | P.HPIM ---
History of Present Illness H&P Date: 05/25/19 Chief Complaint: Chest pain This is a 78-year-old gentleman for [facility] subacute rehab presented to the ER with complaints of chest pain with known history of atrial fibrillation, end- stage renal disease on hemodialysis, dyslipidemia, peripheral vascular disease, sleep apnea, CAD- triple-vessel disease with mid LAD lesion-not a surgical candidate as per cardiothoracic surgery and multiple other medical issues. Patient completed his hemodialysis yesterday without any issues. Yesterday evening developed midsternal chest pain lasting about half an hour. Sent to the ER and placed on nitroglycerin drip and heparin. Nitroglycerin drip has been weaned off. Reports chest pain earlier this morning but currently none. Denies lightheadedness dizziness or focal deficits. Troponin 0.019, 0.598, 1.56. EKG reported normal sinus rhythm with ST changes in the inferior lateral leads. Chest x-ray reported pulmonary fibrotic changes with clearing of the pleural fluid and infiltrate of left lung base compared to prior. Hepatitis serology pending. electrolytes within normal limits Vital signs stable. Review of Systems ROS Statement: Those systems with pertinent positive or pertinent negative responses have been documented in the HPI. ROS Other: All systems not noted in ROS Statement are negative. Past Medical History Past Medical History: Atrial Fibrillation, Coronary Artery Disease (CAD), Heart Failure, CVA/TIA, Diabetes Mellitus, Eye Disorder, GERD/Reflux, Hyperlipidemia, Hypertension, Myocardial Infarction ([place]), Osteoarthritis (OA), Renal Disease, Sleep Apnea/CPAP/BIPAP, Syncope, Vascular Disorder Additional Past Medical History / Comment(s): IDDM type II with insulin pump, neuropathy bilateral legs/feet, current bilateral foot wounds, ESRD with hemodialysis M/W/F, chronic anemia, gout bilateral great toes, arthritis bilateral hands/feet/back, 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 Last Myocardial Infarction Date:: 05/08/17 History of Any Multi-Drug Resistant Organisms: None Reported Past Surgical History: Cardiac Ablation, Heart Catheterization, Joint Replacement, Orthopedic Surgery, Tonsillectomy Additional Past Surgical History / Comment(s): Temporary hemodialysis cath R chest, fistula L upper arm, cardioversions x2, pericardial effusion drainage, R caratid endartectomy, bilateral cataract surgery/lens implants, bilateral hands trigger finger releases, bilateral knee arthroscopies, R total knee arthroplasty, bilateral total hip arthroplasties, R carpal tunnel release. Past Anesthesia/Blood Transfusion Reactions: No Reported Reaction Past Psychological History: No Psychological Hx Reported Additional Psychological History / Comment(s): Pt resides with his spouse. He has [facility], nursing for bilateral foot wound care and PT. He has a walker and a wheelchair. His spouse does the driving. He has home oxygen and Cpap device and Morro device/glucometer. Smoking Status: Never smoker Past Alcohol Use History: Unable to Obtain Past Drug Use History: Unable to Obtain - Past Family History Mother Family Medical History: Diabetes Mellitus, Hyperlipidemia, Hypertension, Myocardial Infarction ([place]) Daughter(s) Family Medical History: Cancer Father Additional Family Medical History / Comment(s): alcoholic Medications and Allergies Home Medications Medication Instructions Recorded Confirmed Type Aspirin [Adult Low Dose Aspirin EC] 81 mg PO DAILY@1700 04/27/17 05/24/19 History Acetaminophen [Tylenol Arthritis] 1,300 mg PO Q12H PRN 08/06/17 05/24/19 History Isosorbide Mononitrate [Isosorbide 30 mg PO DAILY@1300 08/06/17 05/24/19 History Mononitrate ER] Nitroglycerin Sl Tabs [Nitrostat] 0.4 mg SUBLINGUAL Q5M PRN 08/06/17 05/24/19 History Albuterol Inhaler [Ventolin Hfa 2 puff INHALATION RT-Q4H PRN 10/26/17 05/24/19 History Inhaler] Budesonide/Formoterol Fumarate 2 puff INHALATION RT-BID@0800,1700 10/26/17 05/24/19 History [Symbicort 160-4.5 Mcg Inhaler] Allopurinol [Zyloprim] 200 mg PO DAILY@169904/08/18 05/24/19 History Calcium Acetate [PhosLo] 667 mg PO QID@08,12,17,21 04/08/18 05/24/19 History Ergocalciferol (Vitamin D2) 50,000 unit PO Q14D@1700 04/08/18 05/24/19 History [Drisdol] Apixaban [Eliquis] 2.5 mg PO BID@0800,1700 05/04/19 05/24/19 History Docusate [Colace] 100 mg PO DAILY PRN 05/04/19 05/24/19 History Famotidine [Pepcid] 20 mg PO DAILY@1300 05/04/19 05/24/19 History Lidocaine-Prilocaine Cream [Emla 1 applic TOPICAL TUTHSA@0800 05/04/19 05/24/19 History Cream 2.5%/2.5%] Midodrine HCl [ProAmatine] 10 mg PO DIRECTED PRN 05/04/19 05/24/19 History Polyethylene Glycol 3350 [Miralax] 17 gm PO DAILY PRN 05/04/19 05/24/19 History Pravastatin Sodium [Pravachol] 40 mg PO HS@2100 05/04/19 05/24/19 History Tamsulosin HCl [Flomax] 0.4 mg PO BID@0800,1700 05/04/19 05/24/19 History Torsemide [Demadex] 100 mg PO DAILY@0800 05/04/19 05/24/19 History Levothyroxine Sodium [Synthroid] 137 mcg PO DAILY@0630 tab 05/09/19 05/24/19 Rx traMADol HCL [Ultram] 50 mg PO Q8HR PRN #9 tab 05/09/19 05/24/19 Rx Bisacodyl [Dulcolax] 10 mg RECTAL DAILY PRN 05/24/19 05/24/19 History DULoxetine HCL [Cymbalta] 30 mg PO DAILY@0800 05/24/19 05/24/19 History INSULIN ASPART (NovoLOG) [NovoLOG See Protocol SQ ACHS 05/24/19 05/24/19 History (formulary)] Insulin Detemir (Levemir) [Levemir] 40 unit SQ HS@2130 05/24/19 05/24/19 History Melatonin 10 mg PO HS@2100 05/24/19 05/24/19 History Na Phos,M-B/Na Phos,Di-Ba [Fleet 133 ml RECTAL DAILY PRN 05/24/19 05/24/19 History Adult] Pregabalin [Lyrica] 150 mg PO BID@0800,1700 05/24/19 05/24/19 History Allergies Allergy/AdvReac Type Severity Reaction Status Date / Time No Known Allergies Allergy Verified 05/24/19 17:00 Physical Exam Vitals: Vital Signs Temp Pulse Pulse Resp BP BP Pulse Ox 05/25/19 12:55 60 05/25/19 12:40 60 05/25/19 09:38 60 05/25/19 09:25 60 05/25/19 08:00 98.1 F 71 18 103/53 98 05/25/19 04:00 97.6 F 62 18 100/53 98 05/24/19 23:30 98.1 F 65 18 113/51 97 05/24/19 23:29 98.1 F 65 18 113/51 97 05/24/19 22:50 68 18 102/52 98 05/24/19 21:30 98.2 F 65 18 98/60 97 05/24/19 20:19 68 18 139/53 98 05/24/19 18:41 67 18 106/81 99 05/24/19 18:03 64 18 99/69 99 05/24/19 17:30 90 18 101/56 96 Intake and Output 05/25/19 05/25/19 05/25/19 06:59 14:59 22:59 Intake Total 51.113 240 Balance 51.113 240 Intake: Intake, IV Titration 51.113 Amount Heparin Sod,Pork in 0.45% 51.113 NaCl 25,000 unit In 0.45 % NaCl 1 250ml.bag @ 8 UNITS/KG/HR 9.798 mls/hr IV .Q24H [facility] Rx#: [id number] Oral 240 Other: Voiding Method Diaper Weight 130.4 kg PHYSICAL EXAM: VITAL SIGNS: As above GENERAL: Sitting up in chair, no acute distress HEENT: Conjunctivae normal. eyes normal. NECK: No JVD. No thyroid enlargement. No LNs CARDIOVASCULAR: S1, S2 regular. Systolic murmur RESPIRATION: Breath sounds diminished in the bases. No rhonchi or crackles. No bronchial breathing. ABDOMEN: Soft, obese, nontender . No guarding. no masses palpable. No ascites, No hepatosplenomegaly.Bowel sounds heard. LEGS: minimal edema, chronic venous stasis, no cyanosis PSYCHIATRY: Alert and oriented X3, mood and affect normal. NERVOUS SYSTEM: Cranial N 2-12 grossly normal. Moves all 4 limbs. Diffuse weakness No focal deficits. Strength and sensation grossly intact.. Skin: no lesions, no rash Joints: No active swelling. No inflammation. Lymphatic system. No LN neck axilla or groin. Results CBC & Chem 7: 05/25/19 05:42 05/24/19 17:04 Labs: Abnormal Lab Results - Last 24 Hours (Table) 05/24/19 05/24/19 05/24/19 Range/Units 17:04 17:04 17:04 RBC 2.89 L (4.30-5.90) m/uL Hgb 9.6 L (13.0-17.5) gm/dL Hct 31.1 L (39.0-53.0) % MCV 107.6 H (80.0-100.0) fL MCHC (31.0-37.0) g/dL Lymphocytes # 0.6 L (1.0-4.8) k/uL Macrocytosis Marked A APTT 30.9 H (22.0-30.0) sec Sodium 133 L (137-145) mmol/L Chloride 90 L (98-107) mmol/L Carbon Dioxide 32 H (22-30) mmol/L Creatinine 3.79 H (0.66-1.25) mg/dL Glucose 208 H (74-99) mg/dL POC Glucose (mg/dL) (75-99) mg/dL Troponin I (0.000-0.034) ng/mL 05/24/19 05/24/19 05/24/19 Range/Units 21:45 23:41 23:41 RBC (4.30-5.90) m/uL Hgb (13.0-17.5) gm/dL Hct (39.0-53.0) % MCV (80.0-100.0) fL MCHC (31.0-37.0) g/dL Lymphocytes # (1.0-4.8) k/uL Macrocytosis APTT 40.9 H (22.0-30.0) sec Sodium (137-145) mmol/L Chloride (98-107) mmol/L Carbon Dioxide (22-30) mmol/L Creatinine (0.66-1.25) mg/dL Glucose (74-99) mg/dL POC Glucose (mg/dL) 157 H (75-99) mg/dL Troponin I 0.598 H* (0.000-0.034) ng/mL 05/25/19 05/25/19 05/25/19 Range/Units 05:42 05:42 05:42 RBC 2.94 L (4.30-5.90) m/uL Hgb 9.6 L (13.0-17.5) gm/dL Hct 32.0 L (39.0-53.0) % MCV 108.9 H (80.0-100.0) fL MCHC 30.2 L (31.0-37.0) g/dL Lymphocytes # 0.9 L (1.0-4.8) k/uL Macrocytosis Marked A APTT 42.3 H (22.0-30.0) sec Sodium (137-145) mmol/L Chloride (98-107) mmol/L Carbon Dioxide (22-30) mmol/L Creatinine (0.66-1.25) mg/dL Glucose (74-99) mg/dL POC Glucose (mg/dL) (75-99) mg/dL Troponin I 1.560 H* (0.000-0.034) ng/mL 05/25/19 05/25/19 05/25/19 Range/Units 06:21 11:34 16:26 RBC (4.30-5.90) m/uL Hgb (13.0-17.5) gm/dL Hct (39.0-53.0) % MCV (80.0-100.0) fL MCHC (31.0-37.0) g/dL Lymphocytes # (1.0-4.8) k/uL Macrocytosis APTT (22.0-30.0) sec Sodium (137-145) mmol/L Chloride (98-107) mmol/L Carbon Dioxide (22-30) mmol/L Creatinine (0.66-1.25) mg/dL Glucose (74-99) mg/dL POC Glucose (mg/dL) 206 H 216 H 208 H (75-99) mg/dL Troponin I (0.000-0.034) ng/mL Thrombosis Risk Factor Assmnt - Choose All That Apply Each Risk Factor Represents 3 Points: Age 75 years or older Thrombosis Risk Factor Assessment Total Risk Factor Score: 3 Thrombosis Risk Factor Assessment Level: Moderate Risk Assessment and Plan Assessment: Acute NSTEMI, EKG reporting inferior lateral lead ST changes. Diabetes mellitus, insulin-dependent End Stage renal disease, dialysis dependent Anemia of chronic kidney disease Chronic systolic heart failure with EF 45-50% Moderate tricuspid regurgitation History of Coronary artery disease, triple-vessel disease with LAD lesion, not a surgical candidate as per cardiothoracic surgery, medical management maximized Hypertension Dyslipidemia Morbid obesity, BMI 43.7 CVA by history 2018 Obstructive sleep apnea on BiPAP Chronic atrial fibrillation, flutter PAD Plan: Continue on current medication regime , aspirin, statin, Plavix, Ranexa, monitoring and symptomatic treatment. Maintained on heparin drip, BiPAP at night. No beta lizette given history of bradycardia Echo pending. Hepatitis serology pending. Home meds have been reviewed and resumed accordingly. Hemodialysis as per nephrology .Follow closely with both cardiology and nephrology. Prognosis guarded given multiple complex medical issues. The impression and plan of care has been dictated as directed. : I performed a history and examination of this patient, discussed the same with the dictator. I agree with the dictator's note ,documented as a scribe. Any additional findings or plans will be noted.
--- NOTE | 2019-05-25 17:37 | ECHOF ---
Referral Reason:limited, assess lvf MEASUREMENTS -------- HEIGHT: 172.7 cm WEIGHT: 134.7 kg BP: RAP: 5.00 mmHg RVSP: 56.14 mmHg FINDINGS -------- Sinus rhythm. Undetermined rhythm. Echo done 05/05/19 Limited study for LV Function. Overall left ventricular systolic function is moderately impaired with, an EF between 35 - 40 %. Se ptal Basal Hypokinetic The right ventricle is severely enlarged. Mild tricuspid regurgitation present. There is moderate pulmonary hypertension. The right ventric ular systolic pressure, as measured by Doppler, is 56.14mmHg. The pulmonic valve was not well visualized. CONCLUSIONS -------- 1. Sinus rhythm. 2. Undetermined rhythm. 3. Echo done 05/05/19 Limited study for LV Function. 4. Overall left ventricular systolic function is moderately impaired with, an EF between 35 - 40 %. 5. Septal Basal Hypokinetic 6. The right ventricle is severely enlarged. 7. The right ventricular systolic pressure, as measured by Doppler, is 56.14mmHg. 8. The pulmonic valve was not well visualized. W[employer]ER [employer]PER MACHINE OPERATOR: Melina Barker RDCS
[2019-05-25] MEDS: HEPARIN SOD,PORK IN 0.45% NACL 25,000 UNIT in 0.45% NACL 1 250ML.BAG IV SCH (19:39)
[2019-05-25 21:40] LABS: Glucose,Whole Blood 245 mg/dL (75-99)
[2019-05-25] MEDS: INSULIN DETEMIR (LEVEMIR) 100 UNIT/ML SYR SQ SCH (22:15)
[2019-05-26 06:27] LABS: Glucose,Whole Blood 160 mg/dL (75-99)
[2019-05-26] MEDS: LEVOTHYROXINE 137 MCG TAB PO SCH (06:34)
[2019-05-26] MEDS: HYDROmorphone 0.5 MG/0.5 ML SYRINGE IVP PRN ×2 (06:39→13:50)
[2019-05-26 06:41] LABS: Basophils % (A) 0 %; Eosinophils # (A) 0.1 k/uL (0-0.7); Eosinophils % (A) 2 %; HCT 30.6 % (39.0-53.0); HGB 9.5 gm/dL (13.0-17.5); Hypochromasia Moderate; Lymphocytes # (A) 0.6 k/uL (1.0-4.8); Lymphocytes % (A) 9 %; MCH 32.9 pg (25.0-35.0); MCHC 31.1 g/dL (31.0-37.0); MCV 105.8 fL (80.0-100.0); Macrocytosis Moderate; Mean Platelet Volume 9.1; Monocytes # (A) 0.5 k/uL (0-1.0); Monocytes % (A) 8 %; Neutrophils % (A) 77 %; Platelet Count 217 k/uL (150-450); RBC 2.89 m/uL (4.30-5.90); RDW 14.7 % (11.5-15.5); WBC 6.5 k/uL (3.8-10.6)
[2019-05-26 07:41] LABS: Calcium 8.1 mg/dL (8.4-10.2); Potassium 4.5 mmol/L (3.5-5.1)
[2019-05-26] MEDS: ALBUTEROL NEBULIZED 2.5 MG/3 ML INHALATION PRN ×2 (07:57→18:53)
[2019-05-26] MEDS: SYMBICORT 160-4.5 MCG INHALER INHALATION SCH ×2 (07:57→18:53)
--- NOTE | 2019-05-26 08:20 | P.PN ---
Subjective Patient is seen in follow-up for end-stage renal disease. He had a short duration of chest pain yesterday but none since. He also had episodes of emesis yesterday but better now. Scheduled for dialysis today. Vital signs are stable. General: The patient appeared well nourished and normally developed. HEENT: Head exam is unremarkable. Neck is without jugular venous distension. LUNGS: Lungs are clear to auscultation and percussion. Breath sounds decreased. HEART: Rate and Rhythm are regular. First and second heart sounds normal. No murmurs, rubs or gallops. ABDOMEN: Abdominal exam reveals normal bowel sounds. Nontender. Obese. EXTREMITITES: 1+ edema. Objective - Vital Signs Vital signs: Vital Signs Temp 97.9 F 05/26/19 00:00 Pulse 74 05/26/19 07:57 Resp 18 05/26/19 04:00 BP 104/69 05/26/19 04:00 Pulse Ox 94 L 05/26/19 04:00 Intake & Output 05/25/19 05/26/19 05/26/19 18:59 06:59 18:59 Intake Total 438.887 600 175.372 Balance 438.887 600 175.372 Weight 131.3 kg Intake: Intake, IV Titration 198.887 175.372 Amount Heparin Sod,Pork in 0.45% 198.887 175.372 NaCl 25,000 unit In 0.45 % NaCl 1 250ml.bag @ 8 UNITS/KG/HR 9.798 mls/hr IV .Q24H [facility] Rx#: [id number] Oral 240 Blood Product 600 Other: # Voids 1 0 - Labs CBC & Chem 7: 05/26/19 06:10 05/26/19 06:10 Labs: Abnormal Lab Results - Last 24 Hours (Table) 05/25/19 05/25/19 05/25/19 Range/Units 05:42 11:34 16:26 RBC (4.30-5.90) m/uL Hgb (13.0-17.5) gm/dL Hct (39.0-53.0) % MCV (80.0-100.0) fL Lymphocytes # (1.0-4.8) k/uL APTT (22.0-30.0) sec Sodium (137-145) mmol/L Chloride (98-107) mmol/L BUN (9-20) mg/dL Creatinine (0.66-1.25) mg/dL Glucose (74-99) mg/dL POC Glucose (mg/dL) 216 H 208 H (75-99) mg/dL Calcium (8.4-10.2) mg/dL Hep Bs Antibody Reactive H (Non-Reactive) 05/25/19 05/26/19 05/26/19 Range/Units 21:38 01:55 06:10 RBC 2.89 L (4.30-5.90) m/uL Hgb 9.5 L (13.0-17.5) gm/dL Hct 30.6 L (39.0-53.0) % MCV 105.8 H (80.0-100.0) fL Lymphocytes # 0.6 L (1.0-4.8) k/uL APTT 59.0 H (22.0-30.0) sec Sodium (137-145) mmol/L Chloride (98-107) mmol/L BUN (9-20) mg/dL Creatinine (0.66-1.25) mg/dL Glucose (74-99) mg/dL POC Glucose (mg/dL) 245 H (75-99) mg/dL Calcium (8.4-10.2) mg/dL Hep Bs Antibody (Non-Reactive) 05/26/19 05/26/19 05/26/19 Range/Units 06:10 06:10 06:26 RBC (4.30-5.90) m/uL Hgb (13.0-17.5) gm/dL Hct (39.0-53.0) % MCV (80.0-100.0) fL Lymphocytes # (1.0-4.8) k/uL APTT 67.9 H (22.0-30.0) sec Sodium 135 L (137-145) mmol/L Chloride 93 L (98-107) mmol/L BUN 35 H (9-20) mg/dL Creatinine 6.59 H (0.66-1.25) mg/dL Glucose 150 H (74-99) mg/dL POC Glucose (mg/dL) 160 H (75-99) mg/dL Calcium 8.1 L (8.4-10.2) mg/dL Hep Bs Antibody (Non-Reactive) Assessment and Plan Plan: Assessment: 1. End-stage renal disease maintained on hemodialysis on Thursday schedule. 2. Chest pain. Rule out acute coronary syndrome. Cardiology following. Maintained on heparin drip. 3. Chronic kidney disease mineral bone disease maintained on PhosLo. 4. Insulin-dependent diabetes mellitus. 5. Chronic systolic CHF with ejection fraction of 35-40% % with moderate pulmonary hypertension. 6. Anemia of chronic kidney disease. Rule out deficiency. Plan: Hemodialysis today - will try for 3-4 L ultrafiltration.
--- NOTE | 2019-05-26 10:19 | P.SQMSDB ---
SubQ & Muscle Debridement - Subcutaneous & Muscle Debridement Date of Service: 05/26/19 Subcutaneous & Muscle Debridement: PREOPERATIVE DIAGNOSES: Fofana grade 2 diabetic ulcers to the right heel, right #2 toe, left foot dorsum, left #3 and left #4 to dorsum POSTOPERATIVE DIAGNOSES: [same] PROCEDURE: Excisional surgical debridement to subcutaneous tissues DESCRIPTION: The full-thickness ulcer, measuring, pre-debridement: right #2 toe-0.5 x 0.4cm and is an area of crust Right heel 2 x 3.2 cmand is an area of crust Left foot dorsum: 1.5 x 1.7 cm and is an area of crust Left #3 toe: 0.4 x 0.5cm by crust Left #4 toe: 0.3 x 0.4 cm by crust was debrided into the subcutaneous tissues today to remove yellow fibrinous slough and devitalized tissue from the wound. Post debridement measurements: right #2 toe-0.5 x 0.4 x 0.3 cm Right heel 2 x 3.2 x 0.2 cm Left foot dorsum: 1.5 x 1.7 x 0.2cm Left #3 toe: 0.4 x 0.5 x 0.2 cm Left #4 toe: 0.3 x 0.4 0.2 cm .There are [no] obvious signs of infection today. There are [no] other materials in the wound that he would inhibit healing or promote adjacent tissue breakdown. Pressure may be a factor EXTENT OF NECROTIC TISSUE: Large DEGREE OF EPITHELIALIZATION: Small if any CHARACTER OF WOUND AFTER DEBRIDEMINT: Bloody with slough and minimal granulation tissue INSTRUMENTATION: [Sharp curette] BLEEDING: [Minimal and controlled with pressure] ANESTHESIA: None DRESSING: Santyl applied daily and offloading of pressure. Patient tolerated today's procedure well. The patient will be reevaluated in 1 week.
[2019-05-26] MEDS: CLOPIDOGREL 75 MG TAB PO SCH (10:40)
[2019-05-26] MEDS: CALCIUM ACETATE 667 MG TAB PO SCH ×4 (10:40→22:04)
--- NOTE | 2019-05-26 11:24 | P.PN ---
Subjective Progress Note Date: 05/26/19 This is a 78-year-old gentleman who follows with Dr. Topete in the office. He has a known history of coronary artery disease, patient underwent a cardiac catheterization in August 2017 that revealed triple vessel coronary artery disease with diffuse significant lesion in the mid LAD, proximal circumflex and proximal mid RCA the films were reviewed that time by Dr. Avelina Koch and Dr. King, patient was felt to not be an ideal candidate for either procedure. Medical therapy was advised at that time. The patient also has a history of end-stage renal disease on dialysis 3 times a week, hypertension, hyperlipidemia, obesity, persistent atrial fibrillation, on Eliquis for anticoagulation, PAD with history of carotid disease. Patient has a history of sleep apnea, prior CVA,diabetes, and GERD. He presents to the hospital on this admission with symptoms of a midsternal chest pressure, which the patient states was quite severe. He felt as though he was having a heart attack. He was given sublingual nitroglycerin on route here, which relieved the symptoms according to the patient. The patient also states he had 1 brief episode of chest discomfort while here in the hospital. At the time of my examination this morning patient is quite comfortable, denies any chest discomfort. Chest x-ray showed pulmonary fibrotic changes, clearing of the pleural fluid and infiltrate in the left lung base compared with prior exam. His EKG on arrival here showed atrial flutter with controlled VR. ST-T wave changes noted in the inferior lateral leads. Blood pressure 100/50 with a heart rate in the 60s, he is afebrile. White blood cell count on admission 7.4, hemoglobin 9.6, platelet count 2:15. Sodium 133, potassium 4.2, BUN 16, creatinine 3.7. Initial troponin on arrival here 0.019, subsequent troponin 0.59, and 1.5. BNP level 9370. At the time of my examination this morning, patient is sitting up in his chair at bedside, denies any chest discomfort at present. 05/26/2019 Patient seen and examined this morning sitting up in the chair at bedside, currently undergoing hemodialysis. Dr. Molina did have a discussion with the patient explaining to him that he does have triple-vessel disease which is known, and that he was not felt by Dr. Avelina Koch to be a candidate for intervention, not felt to be a candidate for bypass surgery by Dr. King. Adjustments in medications have been made. Patient denies any chest discomfort. Blood pressure 104/60 with a heart rate in the 60s, 94% on 2 L of oxygen. White blood cell count 6.5, hemoglobin 9.5, platelet count 217. Sodium 135, potassium 4.5, BUN 35, creatinine 6.5. We will add some lisinopril to the patient's medication regime today. Continue with other current medications. Objective - Vital Signs Vital signs: Vital Signs Temp 97.9 F 05/26/19 00:00 Pulse 76 05/26/19 08:22 Resp 18 05/26/19 04:00 BP 104/69 05/26/19 04:00 Pulse Ox 94 L 05/26/19 04:00 Intake & Output 05/25/19 05/26/19 05/26/19 18:59 06:59 18:59 Intake Total 438.887 600 415.372 Balance 438.887 600 415.372 Weight 131.3 kg Intake: Intake, IV Titration 198.887 175.372 Amount Heparin Sod,Pork in 0.45% 198.887 175.372 NaCl 25,000 unit In 0.45 % NaCl 1 250ml.bag @ 8 UNITS/KG/HR 9.798 mls/hr IV .Q24H [facility] Rx#: [id number] Oral 240 240 Blood Product 600 Other: # Voids 1 0 - Exam PHYSICAL EXAMINATION: GENERAL: 78-year-old gentleman in no acute distress at the time of my examination HEENT: Head is atraumatic, normocephalic. Pupils equal, round. Sclera anicteric. Conjunctiva are clear. Mucous membranes of the mouth are moist. Neck is supple. There is no elevated jugular venous pressure. No carotid br uit is heard. HEART EXAMINATION: Heart S1 and S2 systolic murmur is heard CHEST EXAMINATION: Lungs reveal crackles to bilateral bases. ABDOMEN: Soft, obese, nontender. Bowel sounds are heard. No organomegaly noted. EXTREMITIES: 2+ peripheral pulses with trace evidence of peripheral edema, evid ence of chronic venous stasis. NEUROLOGIC patient is awake, alert and oriented 3 . - Labs CBC & Chem 7: 05/26/19 06:10 05/26/19 06:10 Labs: Abnormal Lab Results - Last 24 Hours (Table) 05/25/19 05/25/19 05/25/19 Range/Units 05:42 11:34 16:26 RBC (4.30-5.90) m/uL Hgb (13.0-17.5) gm/dL Hct (39.0-53.0) % MCV (80.0-100.0) fL Lymphocytes # (1.0-4.8) k/uL APTT (22.0-30.0) sec Sodium (137-145) mmol/L Chloride (98-107) mmol/L BUN (9-20) mg/dL Creatinine (0.66-1.25) mg/dL Glucose (74-99) mg/dL POC Glucose (mg/dL) 216 H 208 H (75-99) mg/dL Calcium (8.4-10.2) mg/dL Hep Bs Antibody Reactive H (Non-Reactive) 05/25/19 05/26/19 05/26/19 Range/Units 21:38 01:55 06:10 RBC 2.89 L (4.30-5.90) m/uL Hgb 9.5 L (13.0-17.5) gm/dL Hct 30.6 L (39.0-53.0) % MCV 105.8 H (80.0-100.0) fL Lymphocytes # 0.6 L (1.0-4.8) k/uL APTT 59.0 H (22.0-30.0) sec Sodium (137-145) mmol/L Chloride (98-107) mmol/L BUN (9-20) mg/dL Creatinine (0.66-1.25) mg/dL Glucose (74-99) mg/dL POC Glucose (mg/dL) 245 H (75-99) mg/dL Calcium (8.4-10.2) mg/dL Hep Bs Antibody (Non-Reactive) 05/26/19 05/26/19 05/26/19 Range/Units 06:10 06:10 06:26 RBC (4.30-5.90) m/uL Hgb (13.0-17.5) gm/dL Hct (39.0-53.0) % MCV (80.0-100.0) fL Lymphocytes # (1.0-4.8) k/uL APTT 67.9 H (22.0-30.0) sec Sodium 135 L (137-145) mmol/L Chloride 93 L (98-107) mmol/L BUN 35 H (9-20) mg/dL Creatinine 6.59 H (0.66-1.25) mg/dL Glucose 150 H (74-99) mg/dL POC Glucose (mg/dL) 160 H (75-99) mg/dL Calcium 8.1 L (8.4-10.2) mg/dL Hep Bs Antibody (Non-Reactive) Assessment and Plan Plan: Assessment and plan #1 symptoms of a midsternal chest pressure and heaviness, suggestive of possible acute coronary syndrome. Troponin 0.019, 0.59, 1.5. EKG shows a normal sinus rhythm with blocked APCs, ST-T changes noted in the inferior lateral leads. #2 history of coronary artery disease with documented triple-vessel disease by cardiac cath in 2018, medical therapy advised at that time, patient was felt at that time not to be a candidate for surgery #3 end-stage renal disease on hemodialysis #4 diabetes #5 hyperlipidemia #6 hypertension #7 sleep apnea #8 persistent atrial flutter #9 prior CVA #10 GERD #11 PAD with carotid artery disease Plan Repeat echocardiogram with Doppler study shows an ejection fraction of 35-40%. We will add lisinopril to his medication regime and continue with the rest of his current medications. DNP note has been reviewed, I agree with a documented findings and plan of care. Patient was seen and examined.
[2019-05-26 12:15] LABS: Glucose,Whole Blood 138 mg/dL (75-99)
[2019-05-26] MEDS ORDERED: COLLAGENASE 250 UNIT/GM OINTMENT 30 GM TUBE TOPICAL SCH (12:30)
--- NOTE | 2019-05-26 12:52 | P.PN ---
Subjective Progress Note Date: 05/26/19 This is a 78-year-old gentleman for [facility] subacute rehab presented to the ER with complaints of chest pain with known history of atrial fibrillation, end- stage renal disease on hemodialysis, dyslipidemia, peripheral vascular disease, sleep apnea, CAD- triple-vessel disease with mid LAD lesion-not a surgical candidate as per cardiothoracic surgery and multiple other medical issues. Patient completed his hemodialysis yesterday without any issues. Yesterday evening developed midsternal chest pain lasting about half an hour. Sent to the ER and placed on nitroglycerin drip and heparin. Nitroglycerin drip has been weaned off. Reports chest pain earlier this morning but currently none. Denies lightheadedness dizziness or focal deficits. Troponin 0.019, 0.598, 1.56. EKG reported normal sinus rhythm with ST changes in the inferior lateral leads. Chest x-ray reported pulmonary fibrotic changes with clearing of the pleural fluid and infiltrate of left lung base compared to prior. Hepatitis serology pending. electrolytes within normal limits Vital signs stable. 05/26/2019 receiving hemodialysis today. Maintained on heparin drip . Echo reporting moderately impaired LV function, EF 35-40%, septal basal hypokinetic Maximizing medical therapy with small dose of ASHLEY inhibitor being added to med regime as per cardiology. Underwent debridement at bedside of bilateral feet- refer to procedure note, tolerated process well. Objective - Vital Signs Vital signs: Vital Signs Temp 97.9 F 05/26/19 00:00 Pulse 76 05/26/19 08:22 Resp 18 05/26/19 04:00 BP 104/69 05/26/19 04:00 Pulse Ox 94 L 05/26/19 04:00 Intake & Output 05/25/19 05/26/19 05/26/19 18:59 06:59 18:59 Intake Total 438.887 600 415.372 Balance 438.887 600 415.372 Weight 131.3 kg Intake: Intake, IV Titration 198.887 175.372 Amount Heparin Sod,Pork in 0.45% 198.887 175.372 NaCl 25,000 unit In 0.45 % NaCl 1 250ml.bag @ 8 UNITS/KG/HR 9.798 mls/hr IV .Q24H [facility] Rx#: [id number] Oral 240 240 Blood Product 600 Other: # Voids 1 0 - Exam VITAL SIGNS: As above GENERAL: Sitting up in chair, no acute distress HEENT: Conjunctivae normal. eyes normal. Oral mucosa moist. NECK: No JVD. No thyroid enlargement. No LNs CARDIOVASCULAR: S1, S2 regular. Systolic murmur RESPIRATION: Breath sounds diminished in the bases. No rhonchi or crackles. No bronchial breathing. ABDOMEN: Soft, obese, nontender . No guarding. no masses palpable. No ascites, No hepatosplenomegaly.Bowel sounds heard. LEGS: minimal edema, chronic venous stasis, no cyanosis PSYCHIATRY: Alert and oriented X3, mood and affect normal. NERVOUS SYSTEM: Cranial N 2-12 grossly normal. Moves all 4 limbs. Diffuse weakness No focal deficits. Strength and sensation grossly intact.. Skin: Fofana grade 2 diabetic ulcers to the right heel, right #2 toe, left foot dorsum, left #3 and left #4 to dorsum; refer to debridement note Re: Measureme nts and specifics, no rash - Labs CBC & Chem 7: 05/26/19 06:10 05/26/19 06:10 Labs: Abnormal Lab Results - Last 24 Hours (Table) 05/25/19 05/25/19 05/25/19 Range/Units 05:42 11:34 16:26 RBC (4.30-5.90) m/uL Hgb (13.0-17.5) gm/dL Hct (39.0-53.0) % MCV (80.0-100.0) fL Lymphocytes # (1.0-4.8) k/uL APTT (22.0-30.0) sec Sodium (137-145) mmol/L Chloride (98-107) mmol/L BUN (9-20) mg/dL Creatinine (0.66-1.25) mg/dL Glucose (74-99) mg/dL POC Glucose (mg/dL) 216 H 208 H (75-99) mg/dL Calcium (8.4-10.2) mg/dL Hep Bs Antibody Reactive H (Non-Reactive) 05/25/19 05/26/19 05/26/19 Range/Units 21:38 01:55 06:10 RBC 2.89 L (4.30-5.90) m/uL Hgb 9.5 L (13.0-17.5) gm/dL Hct 30.6 L (39.0-53.0) % MCV 105.8 H (80.0-100.0) fL Lymphocytes # 0.6 L (1.0-4.8) k/uL APTT 59.0 H (22.0-30.0) sec Sodium (137-145) mmol/L Chloride (98-107) mmol/L BUN (9-20) mg/dL Creatinine (0.66-1.25) mg/dL Glucose (74-99) mg/dL POC Glucose (mg/dL) 245 H (75-99) mg/dL Calcium (8.4-10.2) mg/dL Hep Bs Antibody (Non-Reactive) 05/26/19 05/26/19 05/26/19 Range/Units 06:10 06:10 06:26 RBC (4.30-5.90) m/uL Hgb (13.0-17.5) gm/dL Hct (39.0-53.0) % MCV (80.0-100.0) fL Lymphocytes # (1.0-4.8) k/uL APTT 67.9 H (22.0-30.0) sec Sodium 135 L (137-145) mmol/L Chloride 93 L (98-107) mmol/L BUN 35 H (9-20) mg/dL Creatinine 6.59 H (0.66-1.25) mg/dL Glucose 150 H (74-99) mg/dL POC Glucose (mg/dL) 160 H (75-99) mg/dL Calcium 8.1 L (8.4-10.2) mg/dL Hep Bs Antibody (Non-Reactive) Assessment and Plan Assessment: Acute NSTEMI, EKG reporting inferior lateral lead ST changes. Diabetes mellitus, insulin-dependent End Stage renal disease, dialysis dependent Anemia of chronic kidney disease Chronic systolic heart failure with EF 35-40% History of significant bradycardia, recommending no beta lizette per cardiology previously Moderate tricuspid regurgitation History of Coronary artery disease, triple-vessel disease with LAD lesion, not a surgical candidate as per cardiothoracic surgery, medical management maximized Hypertension Dyslipidemia Morbid obesity, BMI 43.7 CVA by history 2018 Obstructive sleep apnea on BiPAP Chronic atrial fibrillation, flutter PAD Fofana grade 2 diabetic ulcers to the right heel, right #2 toe, left foot dorsum, left #3 and left #4 to dorsum, status post debridement. Hepatitis B antibody reactive, follow-up with GI outpatient Plan: Continue on current medication regime , monitoring and symptomatic treatment. Santyl wound care ordered. Continue heparin drip. Maximizing medical management as per cardiology. Maintain BiPAP at night. Hemodialysis as per nephrology. The impression and plan of care has been dictated as directed. : I performed a history and examination of this patient, discussed the same with the dictator. I agree with the dictator's note ,documented as a scribe. Any additional findings or plans will be noted.
[2019-05-26] MEDS: HEPARIN SOD,PORK IN 0.45% NACL 25,000 UNIT in 0.45% NACL 1 250ML.BAG IV SCH (13:48)
[2019-05-26] MEDS: RANOLAZINE 500 MG TAB.ER.12H PO SCH ×2 (13:49→22:04)
[2019-05-26] MEDS: TORSEMIDE 20 MG TAB PO SCH (13:49)
[2019-05-26] MEDS: FAMOTIDINE 20 MG TAB PO SCH (13:50)
[2019-05-26] MEDS: LISINOPRIL 5 MG TAB PO SCH (16:49)
[2019-05-26 17:06] LABS: Glucose,Whole Blood 233 mg/dL (75-99)
[2019-05-26] MEDS: COLLAGENASE 250 UNIT/GM OINTMENT 30 GM TUBE TOPICAL SCH (19:12)
[2019-05-26 21:59] LABS: Glucose,Whole Blood 169 mg/dL (75-99)
[2019-05-26] MEDS: INSULIN DETEMIR (LEVEMIR) 100 UNIT/ML SYR SQ SCH (22:03)
[2019-05-27 05:30] LABS: Glucose,Whole Blood 114 mg/dL (75-99)
--- NOTE | 2019-05-27 05:57 | CT ---
EXAMINATION TYPE: CT brain cspine wo con DATE OF EXAM: 05/27/2019 COMPARISON: CT brain 05/18/2017 HISTORY: Fall Headache. Neck pain CT DLP: 1770.7 mGycm Automated exposure control for dose reduction was used. There is cerebral cortical atrophy. There is no mass effect nor midline shift. There is no sign of in tracranial hemorrhage. There is some patchy hypodensity in the right posterior frontal lobe white mat ter consistent with old lacunar infarct. The calvarium is intact. The skull base is intact. There is normal aeration of the mastoid sinuses. Cervical vertebra show nor mal alignment. There is spurring of the endplates. There is no significant disc space narrowing. Post erior elements are intact. There is mild facet arthropathy. IMPRESSION: Cerebral atrophy. Old right posterior frontal lobe lacunar infarct not significantly different compar ed to old exam. No acute intracranial abnormality. Spondylotic mild changes in the cervical spine. No fracture seen.
[2019-05-27 06:05] LABS: Glucose,Whole Blood 105 mg/dL (75-99)
[2019-05-27] MEDS: INSULIN ASPART (NovoLOG) 100 UNIT/ML VIAL SQ SCH ×4 (06:33→20:44)
[2019-05-27] MEDS: LEVOTHYROXINE 137 MCG TAB PO SCH (06:35)
[2019-05-27] MEDS: SYMBICORT 160-4.5 MCG INHALER INHALATION SCH ×2 (08:05→20:14)
[2019-05-27] MEDS: CALCIUM ACETATE 667 MG TAB PO SCH ×4 (08:42→20:44)
[2019-05-27] MEDS: LISINOPRIL 5 MG TAB PO SCH ×2 (08:42→08:52)
[2019-05-27] MEDS: CLOPIDOGREL 75 MG TAB PO SCH ×2 (08:42→08:54)
[2019-05-27] MEDS: RANOLAZINE 500 MG TAB.ER.12H PO SCH ×2 (08:42→20:44)
[2019-05-27] MEDS: FAMOTIDINE 20 MG TAB PO SCH ×2 (08:42→13:09)
[2019-05-27] MEDS: TORSEMIDE 20 MG TAB PO SCH ×2 (08:47→08:52)
[2019-05-27] MEDS: COLLAGENASE 250 UNIT/GM OINTMENT 30 GM TUBE TOPICAL SCH (08:50)
--- NOTE | 2019-05-27 10:34 | P.PN ---
Subjective Patient is seen in follow-up for end-stage renal disease. He is more confused today. Currently on BiPAP. Denies chest pain. Tolerated hemodialysis well yesterday but his blood pressure has been low. Vital signs are stable. General: The patient appeared well nourished and normally developed. HEENT: Head exam is unremarkable. Neck is without jugular venous distension. LUNGS: Lungs are clear to auscultation and percussion. Breath sounds decreased. HEART: Rate and Rhythm are regular. First and second heart sounds normal. No murmurs, rubs or gallops. ABDOMEN: Abdominal exam reveals normal bowel sounds. Nontender. Obese. EXTREMITITES: Trace edema. Objective - Vital Signs Vital signs: Vital Signs Temp 97.5 F L 05/27/19 04:00 Pulse 67 05/27/19 05:10 Resp 20 05/27/19 05:10 BP 84/46 05/27/19 05:10 Pulse Ox 96 05/27/19 05:10 Intake & Output 05/26/19 05/27/19 05/27/19 18:59 06:59 18:59 Intake Total 1304.902 73.871 Output Total 1250 Balance 1304.902 -1176.129 Weight 128 kg Intake: IV 10 Invasive Line 4 10 Intake, IV Titration 274.902 73.871 Amount Heparin Sod,Pork in 0.45% 274.902 73.871 NaCl 25,000 unit In 0.45 % NaCl 1 250ml.bag @ 8 UNITS/KG/HR 9.798 mls/hr IV .Q24H [facility] Rx#: [id number] Oral 1020 Output: Urine 1250 Other: Voiding Method Diaper - Labs CBC & Chem 7: 05/26/19 06:10 05/26/19 06:10 Labs: Abnormal Lab Results - Last 24 Hours (Table) 05/26/19 05/26/19 05/26/19 Range/Units 11:54 14:05 17:02 APTT >200.0 H* (22.0-30.0) sec POC Glucose (mg/dL) 138 H 233 H (75-99) mg/dL 05/26/19 05/27/19 05/27/19 Range/Units 21:57 00:00 05:28 APTT >200.0 H* (22.0-30.0) sec POC Glucose (mg/dL) 169 H 114 H (75-99) mg/dL 05/27/19 Range/Units 06:03 APTT (22.0-30.0) sec POC Glucose (mg/dL) 105 H (75-99) mg/dL Assessment and Plan Plan: Assessment: 1. End-stage renal disease maintained on hemodialysis on Thursday schedule. 2. Chest pain. Rule out acute coronary syndrome. Cardiology following. Off heparin drip. No interventions planned. 3. Chronic kidney disease mineral bone disease maintained on PhosLo. 4. Insulin-dependent diabetes mellitus. 5. Chronic systolic CHF with ejection fraction of 35-40% % with moderate pulmonary hypertension. 6. Anemia of chronic kidney disease. Rule out deficiency. 7. Hypotension related to underlying cardiac status. Lisinopril held. Plan: Hemodialysis tomorrow. Add midodrine 5 mg 3 times daily. Check iron studies.
--- NOTE | 2019-05-27 10:57 | PN ---
PROGRESS NOTE This patient was admitted with chest pain. Patient had a mild rise in troponin, possibly a non ST-segment elevation NM cannot be entirely excluded. However, the patient's previous cardiac catheterization shows diffuse coronary artery disease, which is not suitable for either percutaneous intervention or bypass surgery. He is doing well. He is not having any more anginal pain. The patient is using a BiPAP machine and he is lying comfortably in the bed. First and second heart sounds are normal. Lungs are clear to auscultation and percussion. We will continue the current medications, ambulate the patient and if he remains stable patient can be discharged home tomorrow. MMODL / IJN: [id number] /
--- NOTE | 2019-05-27 11:37 | P.PN ---
Subjective Progress Note Date: 05/27/19 This is a 78-year-old gentleman for [facility] subacute rehab presented to the ER with complaints of chest pain with known history of atrial fibrillation, end- stage renal disease on hemodialysis, dyslipidemia, peripheral vascular disease, sleep apnea, CAD- triple-vessel disease with mid LAD lesion-not a surgical candidate as per cardiothoracic surgery and multiple other medical issues. Patient completed his hemodialysis yesterday without any issues. Yesterday evening developed midsternal chest pain lasting about half an hour. Sent to the ER and placed on nitroglycerin drip and heparin. Nitroglycerin drip has been weaned off. Reports chest pain earlier this morning but currently none. Denies lightheadedness dizziness or focal deficits. Troponin 0.019, 0.598, 1.56. EKG reported normal sinus rhythm with ST changes in the inferior lateral leads. Chest x-ray reported pulmonary fibrotic changes with clearing of the pleural fluid and infiltrate of left lung base compared to prior. Hepatitis serology pending. electrolytes within normal limits Vital signs stable. 05/26/2019 receiving hemodialysis today. Maintained on heparin drip . Echo reporting moderately impaired LV function, EF 35-40%, septal basal hypokinetic Maximizing medical therapy with small dose of ASHLEY inhibitor being added to med regime as per cardiology. Underwent debridement at bedside of bilateral feet- refer to procedure note, tolerated process well. 05/27/19 Hemodialysis yesterday, tolerated well. ASHLEY inhibitor initiated yesterday as per cardiology, hypotensive this morning with systolic blood pressures in the 80s. CT of head and C-spine nonacute. Labs pending. Objective - Vital Signs Vital signs: Vital Signs Temp 97.5 F L 05/27/19 04:00 Pulse 67 05/27/19 05:10 Resp 20 05/27/19 05:10 BP 84/46 05/27/19 05:10 Pulse Ox 96 05/27/19 05:10 Intake & Output 05/26/19 05/27/19 05/27/19 18:59 06:59 18:59 Intake Total 1304.902 73.871 Output Total 1250 Balance 1304.902 -1176.129 Weight 128 kg Intake: IV 10 Invasive Line 4 10 Intake, IV Titration 274.902 73.871 Amount Heparin Sod,Pork in 0.45% 274.902 73.871 NaCl 25,000 unit In 0.45 % NaCl 1 250ml.bag @ 8 UNITS/KG/HR 9.798 mls/hr IV .Q24H [facility] Rx#: [id number] Oral 1020 Output: Urine 1250 Other: Voiding Method Diaper - Exam VITAL SIGNS: As above GENERAL: Sitting up in chair, no acute distress HEENT: Conjunctivae normal. eyes normal. Oral mucosa moist. NECK: No JVD. No thyroid enlargement. No LNs CARDIOVASCULAR: S1, S2 regular. Systolic murmur RESPIRATION: Breath sounds diminished in the bases. No rhonchi , crackles or wheezes ABDOMEN: Soft, obese, nontender . No guarding. no masses palpable. Positive Bowel sounds. LEGS: minimal edema, chronic venous stasis, no cyanosis PSYCHIATRY: Alert and oriented X3, mood and affect normal. NERVOUS SYSTEM: Cranial N 2-12 grossly normal. Moves all 4 limbs. Diffuse weakness No focal deficits. Strength and sensation grossly intact.. Skin: Bilateral feet dressings clean dry and intact (Fofana grade 2 diabetic ulcers to the right heel, right #2 toe, left foot dorsum, left #3 and left #4 to dorsum; refer to debridement note Re: Measurements and specifics,), no rash - Labs CBC & Chem 7: 05/26/19 06:10 05/26/19 06:10 Labs: Abnormal Lab Results - Last 24 Hours (Table) 05/26/19 05/26/19 05/26/19 Range/Units 11:54 14:05 17:02 APTT >200.0 H* (22.0-30.0) sec POC Glucose (mg/dL) 138 H 233 H (75-99) mg/dL 05/26/19 05/27/19 05/27/19 Range/Units 21:57 00:00 05:28 APTT >200.0 H* (22.0-30.0) sec POC Glucose (mg/dL) 169 H 114 H (75-99) mg/dL 05/27/19 Range/Units 06:03 APTT (22.0-30.0) sec POC Glucose (mg/dL) 105 H (75-99) mg/dL Assessment and Plan Assessment: Acute NSTEMI, EKG reporting inferior lateral lead ST changes. Diabetes mellitus, insulin-dependent End Stage renal disease, dialysis dependent Anemia of chronic kidney disease Chronic systolic heart failure with EF 35-40% History of significant bradycardia, recommending no beta lizette per cardiology previously Moderate tricuspid regurgitation History of Coronary artery disease, triple-vessel disease with LAD lesion, not a surgical candidate as per cardiothoracic surgery, medical management maximized Hypertension Dyslipidemia Morbid obesity, BMI 43.7 CVA by history 2018 Obstructive sleep apnea on BiPAP Chronic atrial fibrillation, flutter PAD Fofana grade 2 diabetic ulcers to the right heel, right #2 toe, left foot dorsum, left #3 and left #4 to dorsum, status post debridement. Hepatitis B antibody reactive, follow-up with GI outpatient Plan: Continue on current medication regime , monitoring and symptomatic treatment. Hypotensive, since addition of ASHLEY inhibitor, further cardiology recommendations pending. Possibly Midodrin-defer to nephrology. Maximizing medical management as per cardiology. Maintain BiPAP at night. Hemodialysis as per nephrology. Return to subacute rehab at discharge. The impression and plan of care has been dictated as directed. : I performed a history and examination of this patient, discussed the same with the dictator. I agree with the dictator's note ,documented as a scribe. Any additional findings or plans will be noted.
[2019-05-27 12:19] LABS: HCT 31.5 % (39.0-53.0); HGB 9.7 gm/dL (13.0-17.5); Hypochromasia Marked; MCH 33.1 pg (25.0-35.0); MCHC 30.7 g/dL (31.0-37.0); Macrocytosis Marked; Mean Platelet Volume 8.5; Platelet Count 220 k/uL (150-450); RBC 2.92 m/uL (4.30-5.90); RDW 15.2 % (11.5-15.5); WBC 6.6 k/uL (3.8-10.6)
[2019-05-27] MEDS ORDERED: MIDODRINE 5 MG TAB PO SCH (12:30)
[2019-05-27 12:47] LABS: Eosinophils # (M) 0.13 k/uL (0-0.7); Lymphocytes # (M) 0.46 k/uL (1.0-4.8); Monocytes # (M) 0.92 k/uL (0-1.0); Neutrophils # (M) 5.08 k/uL (1.3-7.7); Neutrophils % (M) 77 %; Nucleated Red Blood Cells 0 /100 WBC (0-0); Total Cells Counted 100
[2019-05-27 12:48] LABS: Anisocytosis (M) Present; Poikilocytosis (M) Present
[2019-05-27] MEDS ORDERED: MIDODRINE 5 MG TAB PO STA (13:08)
[2019-05-27 16:34] LABS: Ferritin 289.9 ng/mL (22.0-322.0)
[2019-05-27 16:41] LABS: % Iron Saturation 7.33 (15.00-50.00)
[2019-05-27] MEDS: MIDODRINE 5 MG TAB PO SCH (16:47)
[2019-05-27 18:36] LABS: Glucose,Whole Blood 134 mg/dL (75-99)
[2019-05-27] MEDS: METOCLOPRAMIDE 5 MG/ML 2 ML VIAL IVP PRN (18:36)
[2019-05-27] MEDS: ALBUTEROL NEBULIZED 2.5 MG/3 ML INHALATION PRN (20:16)
[2019-05-27 20:27] LABS: Glucose,Whole Blood 161 mg/dL (75-99)
[2019-05-27] MEDS: INSULIN DETEMIR (LEVEMIR) 100 UNIT/ML SYR SQ SCH (20:44)
[2019-05-28] MEDS: HYDROmorphone 0.5 MG/0.5 ML SYRINGE IVP PRN ×3 (00:45→16:30)
[2019-05-28 06:23] LABS: Glucose,Whole Blood 108 mg/dL (75-99)
[2019-05-28 06:28] LABS: Calcium 7.9 mg/dL (8.4-10.2); Potassium 4.6 mmol/L (3.5-5.1)
[2019-05-28] MEDS: INSULIN ASPART (NovoLOG) 100 UNIT/ML VIAL SQ SCH ×4 (06:40→21:34)
[2019-05-28] MEDS: LEVOTHYROXINE 137 MCG TAB PO SCH (06:41)
[2019-05-28] MEDS: MIDODRINE 5 MG TAB PO SCH ×3 (06:41→16:29)
[2019-05-28] MEDS: ALBUTEROL NEBULIZED 2.5 MG/3 ML INHALATION PRN (08:05)
[2019-05-28] MEDS: SYMBICORT 160-4.5 MCG INHALER INHALATION SCH ×2 (08:05→19:33)
[2019-05-28] MEDS: CLOPIDOGREL 75 MG TAB PO SCH (09:15)
[2019-05-28] MEDS: FAMOTIDINE 20 MG TAB PO SCH (09:15)
[2019-05-28] MEDS: CALCIUM ACETATE 667 MG TAB PO SCH ×3 (09:15→21:19)
[2019-05-28] MEDS: TORSEMIDE 20 MG TAB PO SCH (09:16)
--- NOTE | 2019-05-28 10:28 | P.PN ---
Subjective Patient is seen in follow-up for end-stage renal disease. Currently awake and alert. Denies chest pain or shortness of breath. Scheduled for dialysis today. Vital signs are stable. General: The patient appeared well nourished and normally developed. HEENT: Head exam is unremarkable. Neck is without jugular venous distension. LUNGS: Lungs are clear to auscultation and percussion. Breath sounds decreased. HEART: Rate and Rhythm are regular. First and second heart sounds normal. No murmurs, rubs or gallops. ABDOMEN: Abdominal exam reveals normal bowel sounds. Nontender. Obese. EXTREMITITES: Trace edema. Objective - Vital Signs Vital signs: Vital Signs Temp 98 F 05/28/19 03:15 Pulse 65 05/28/19 08:20 Resp 20 05/28/19 03:15 BP 76/46 05/28/19 03:15 Pulse Ox 98 05/28/19 03:15 Intake & Output 05/27/19 05/28/19 05/28/19 18:59 06:59 18:59 Intake Total 246 120 Balance 246 120 Intake: IV 10 Invasive Line 4 10 Oral 236 120 Other: Voiding Method Diaper Diaper # Voids 2 - Labs CBC & Chem 7: 05/27/19 11:41 05/28/19 05:49 Labs: Abnormal Lab Results - Last 24 Hours (Table) 05/27/19 05/27/19 05/27/19 Range/Units 11:41 11:41 18:34 RBC 2.92 L (4.30-5.90) m/uL Hgb 9.7 L (13.0-17.5) gm/dL Hct 31.5 L (39.0-53.0) % MCV 108.0 H (80.0-100.0) fL MCHC 30.7 L (31.0-37.0) g/dL Lymphocytes # (Manual) 0.46 L (1.0-4.8) k/uL Macrocytosis Marked A Sodium (137-145) mmol/L Chloride (98-107) mmol/L BUN (9-20) mg/dL Creatinine (0.66-1.25) mg/dL POC Glucose (mg/dL) 134 H (75-99) mg/dL Calcium (8.4-10.2) mg/dL Iron 22 L (65-175) ug/dL % Saturation 7.33 L (15.00-50.00) 05/27/19 05/28/19 05/28/19 Range/Units 20:22 05:49 06:22 RBC (4.30-5.90) m/uL Hgb (13.0-17.5) gm/dL Hct (39.0-53.0) % MCV (80.0-100.0) fL MCHC (31.0-37.0) g/dL Lymphocytes # (Manual) (1.0-4.8) k/uL Macrocytosis Sodium 136 L (137-145) mmol/L Chloride 96 L (98-107) mmol/L BUN 36 H (9-20) mg/dL Creatinine 8.18 H* (0.66-1.25) mg/dL POC Glucose (mg/dL) 161 H 108 H (75-99) mg/dL Calcium 7.9 L (8.4-10.2) mg/dL Iron (65-175) ug/dL % Saturation (15.00-50.00) Assessment and Plan Plan: Assessment: 1. End-stage renal disease maintained on hemodialysis on Thursday schedule. 2. Chest pain. Rule out acute coronary syndrome. Cardiology following. Off heparin drip. No interventions planned. 3. Chronic kidney disease mineral bone disease maintained on PhosLo. 4. Insulin-dependent diabetes mellitus. 5. Chronic systolic CHF with ejection fraction of 35-40% % with moderate pulmonary hypertension. 6. Anemia of chronic kidney disease. Iron deficiency noted. 7. Hypotension related to underlying cardiac status. Lisinopril held. Maintained on midodrine. Plan: Hemodialysis today. Increase midodrine to 10 mg 3 times a day. IV iron 3 doses. First dose today.
[2019-05-28] MEDS: SODIUM FERRIC GLUCONAT-SUCROSE 125 MG in SODIUM CHLORIDE 0.9% 100 ML IVPB SCH (11:07)
--- NOTE | 2019-05-28 11:08 | PN ---
PROGRESS NOTE This patient has ischemic cardiomyopathy and end-stage renal failure. He is doing well. The patient denies any angina or shortness of breath. The patient's blood pressure remains in the range of 80/46. The patient remains asymptomatic and denies any dizziness. First and second heart sounds are normal. Lungs are clear to auscultation and percussion. The patient is was started on midodrine 10 mg q.8h hourly. We will increase to midodrine 15 mg q.8 hourly and at this time, lisinopril is discontinued. We will recommend the patient to be ambulated with the help. MMODL / NAOMIN: [id number] /
[2019-05-28 11:38] LABS: Glucose,Whole Blood 123 mg/dL (75-99)
--- NOTE | 2019-05-28 11:48 | P.PN ---
Subjective This is a 78-year-old gentleman for [facility] subacute rehab presented to the ER with complaints of chest pain with known history of atrial fibrillation, end- stage renal disease on hemodialysis, dyslipidemia, peripheral vascular disease, sleep apnea, CAD- triple-vessel disease with mid LAD lesion-not a surgical candidate as per cardiothoracic surgery and multiple other medical issues. Patient completed his hemodialysis yesterday without any issues. Yesterday evening developed midsternal chest pain lasting about half an hour. Sent to the ER and placed on nitroglycerin drip and heparin. Nitroglycerin drip has been weaned off. Reports chest pain earlier this morning but currently none. Denies lightheadedness dizziness or focal deficits. Troponin 0.019, 0.598, 1.56. EKG reported normal sinus rhythm with ST changes in the inferior lateral leads. Chest x-ray reported pulmonary fibrotic changes with clearing of the pleural fluid and infiltrate of left lung base compared to prior. Hepatitis serology pending. electrolytes within normal limits Vital signs stable. 05/26/2019 receiving hemodialysis today. Maintained on heparin drip . Echo reporting moderately impaired LV function, EF 35-40%, septal basal hypokinetic Maximizing medical therapy with small dose of ASHLEY inhibitor being added to med regime as per cardiology. Underwent debridement at bedside of bilateral feet- refer to procedure note, tolerated process well. 05/27/19 Hemodialysis yesterday, tolerated well. ASHLEY inhibitor initiated yesterday as per cardiology, hypotensive this morning with systolic blood pressures in the 80s. CT of head and C-spine nonacute. Labs pending 05/28/2019: pateint is AAOx 3 today. He is c/o some pain in legs, but no chest pains, pressures, or sniffing shortness breath at rest. He is actively undergoing dialysis this time with a shunt in his left arm. His blood pressure remains low. I discussed that with the patient today. Nephrology and cardiology are following him. The recommendations were reviewed. Objective - Vital Signs Vital signs: Vital Signs Temp 98 F 05/28/19 03:15 Pulse 65 05/28/19 08:20 Resp 20 05/28/19 03:15 BP 76/46 05/28/19 03:15 Pulse Ox 98 05/28/19 03:15 Intake & Output 03/20/20 03/21/20 03/21/20 18:59 06:59 18:59 Intake Total 246 120 Balance 246 120 Intake: IV 10 Invasive Line 4 10 Oral 236 120 Other: Voiding Method Diaper Diaper # Voids 2 - Exam GENERAL: Sitting up in chair, no acute distress NECK: No JVD. No thyroid enlargement. No LNs CARDIOVASCULAR: S1, S2 regular. Systolic murmur RSB RESPIRATION: Breath sounds diminished in the bases. No rhonchi , crackles or wheezes ABDOMEN: Soft, obese, nontender . No guarding. no masses palpable. Positive Bowel sounds. LEGS: minimal edema, chronic venous stasis, no cyanosis PSYCHIATRY: Alert and oriented X3, mood and affect normal. NERVOUS SYSTEM: Cranial N 2-12 grossly normal. Moves all 4 limbs. Diffuse weakness No focal deficits. Strength and sensation grossly intact.. Skin: Bilateral feet dressings clean dry and intact (Fofana grade 2 diabetic ulc ers to the right heel, right #2 toe, left foot dorsum, left #3 and left #4 to dorsum; refer to debridement note Re: Measurements and specifics,), no rash - Labs CBC & Chem 7: 05/27/19 11:41 05/28/19 05:49 Labs: Abnormal Lab Results - Last 24 Hours (Table) 05/27/19 05/27/19 05/27/19 Range/Units 11:41 11:41 18:34 RBC 2.92 L (4.30-5.90) m/uL Hgb 9.7 L (13.0-17.5) gm/dL Hct 31.5 L (39.0-53.0) % MCV 108.0 H (80.0-100.0) fL MCHC 30.7 L (31.0-37.0) g/dL Lymphocytes # (Manual) 0.46 L (1.0-4.8) k/uL Macrocytosis Marked A Sodium (137-145) mmol/L Chloride (98-107) mmol/L BUN (9-20) mg/dL Creatinine (0.66-1.25) mg/dL POC Glucose (mg/dL) 134 H (75-99) mg/dL Calcium (8.4-10.2) mg/dL Iron 22 L (65-175) ug/dL % Saturation 7.33 L (15.00-50.00) 03/05/28/19 05/28/19 Range/Units 20:22 05:49 06:22 RBC (4.30-5.90) m/uL Hgb (13.0-17.5) gm/dL Hct (39.0-53.0) % MCV (80.0-100.0) fL MCHC (31.0-37.0) g/dL Lymphocytes # (Manual) (1.0-4.8) k/uL Macrocytosis Sodium 136 L (137-145) mmol/L Chloride 96 L (98-107) mmol/L BUN 36 H (9-20) mg/dL Creatinine 8.18 H* (0.66-1.25) mg/dL POC Glucose (mg/dL) 161 H 108 H (75-99) mg/dL Calcium 7.9 L (8.4-10.2) mg/dL Iron (65-175) ug/dL % Saturation (15.00-50.00) 05/28/19 Range/Units 11:36 RBC (4.30-5.90) m/uL Hgb (13.0-17.5) gm/dL Hct (39.0-53.0) % MCV (80.0-100.0) fL MCHC (31.0-37.0) g/dL Lymphocytes # (Manual) (1.0-4.8) k/uL Macrocytosis Sodium (137-145) mmol/L Chloride (98-107) mmol/L BUN (9-20) mg/dL Creatinine (0.66-1.25) mg/dL POC Glucose (mg/dL) 123 H (75-99) mg/dL Calcium (8.4-10.2) mg/dL Iron (65-175) ug/dL % Saturation (15.00-50.00) Assessment and Plan (1) Acute non-ST elevation myocardial infarction (NSTEMI) Current Visit: Yes Status: Acute Code(s): I21.4 - NON-ST ELEVATION (NSTEMI) MYOCARDIAL INFARCTION SNOMED Code(s): 250921964 (2) End stage renal disease on dialysis Current Visit: Yes Status: Acute Code(s): N18.6 - END STAGE RENAL DISEASE; Z99.2 - DEPENDENCE ON RENAL DIALYSIS SNOMED Code(s): 449103614 (3) Chronic systolic (congestive) heart failure Current Visit: Yes Status: Acute Code(s): I50.22 - CHRONIC SYSTOLIC (CONGESTIVE) HEART FAILURE SNOMED Code(s): 616231813 (4) Hypotension Current Visit: Yes Status: Acute Code(s): I95.9 - HYPOTENSION, UNSPECIFIED SNOMED Code(s): 54573305 (5) H/O: CVA (cerebrovascular accident) Current Visit: Yes Status: Acute Code(s): Z86.73 - PRSNL HX OF TIA (TIA), AND CEREB INFRC W/O RESID DEFICITS SNOMED Code(s): 636221474 (6) Angina pectoris Current Visit: No Status: Acute Code(s): I20.9 - ANGINA PECTORIS, UNSPECIFIED SNOMED Code(s): 080484421 (7) BPH (benign prostatic hyperplasia) Current Visit: No Status: Acute Code(s): N40.0 - BENIGN PROSTATIC HYPER PLASIA WITHOUT LOWER URINRY TRACT SYMP SNOMED Code(s): 203912717 (8) Coronary artery disease Current Visit: No Status: Chronic Code(s): I25.10 - ATHSCL HEART DISEASE OF [place] CORONARY ARTERY W/O ANG PCTRS SNOMED Code(s): 00992158 (9) Diabetes mellitus type 2 in obese Current Visit: No Status: Chronic Code(s): E11.69 - TYPE 2 DIABETES MELLITUS WITH OTHER SPECIFIED COMPLICATION; E66.9 - OBESITY, UNSPECIFIED SNOMED Code(s): 98640784 (10) Hyperlipidemia Current Visit: No Status: Chronic Code(s): E78.5 - HYPERLIPIDEMIA, UNSPEC IFIED SNOMED Code(s): 89029649 (11) Hypertension Current Visit: No Status: Chronic Code(s): I10 - ESSENTIAL (PRIMARY) HYPERTENSION SNOMED Code(s): 19185742 (12) Obstructive sleep apnea Current Visit: No Status: Chronic Code(s): G47.33 - OBSTRUCTIVE SLEEP APNEA (ADULT) (PEDIATRIC) SNOMED Code(s): 72487981 (13) Paroxysmal atrial fibrillation Current Visit: No Status: Chronic Code(s): I48.0 - PAROXYSMAL ATRIAL FIBRILLATION SNOMED Code(s): 226503840 Plan: Nephrology to increase his midodrine 10 mg 3 times a day. Cardiology is following. He appears to be doing somewhat better. Continue his BiPAP at night. Recheck labs in a.m. Plan subacute rehabilitation in the next several days. I reevaluated next 24 hours.
[2019-05-28] MEDS: COLLAGENASE 250 UNIT/GM OINTMENT 30 GM TUBE TOPICAL SCH (12:01)
[2019-05-28] MEDS: HYDROcodone/APAP 7.5-325MG 1 EACH TAB PO PRN ×2 (12:51→21:16)
[2019-05-28] MEDS: RANOLAZINE 500 MG TAB.ER.12H PO SCH ×2 (16:24→21:19)
[2019-05-28 16:58] LABS: Glucose,Whole Blood 157 mg/dL (75-99)
[2019-05-28] MEDS ORDERED: ALPRAZolam 0.5 MG TAB PO STA (20:54)
[2019-05-28 21:28] LABS: Glucose,Whole Blood 181 mg/dL (75-99)
[2019-05-28] MEDS: INSULIN DETEMIR (LEVEMIR) 100 UNIT/ML SYR SQ SCH (21:31)
[2019-05-29] MEDS: HYDROmorphone 0.5 MG/0.5 ML SYRINGE IVP PRN (00:05)
[2019-05-29] MEDS: HYDROcodone/APAP 7.5-325MG 1 EACH TAB PO PRN (06:03)
[2019-05-29 06:06] LABS: HCT 32.5 % (39.0-53.0); HGB 9.7 gm/dL (13.0-17.5); Hypochromasia Marked; MCH 31.8 pg (25.0-35.0); MCHC 29.7 g/dL (31.0-37.0); MCV 107.1 fL (80.0-100.0); Macrocytosis Marked; Mean Platelet Volume 8.2; Platelet Count 225 k/uL (150-450); RBC 3.04 m/uL (4.30-5.90); RDW 15.3 % (11.5-15.5); WBC 6.5 k/uL (3.8-10.6)
[2019-05-29] MEDS: METOCLOPRAMIDE 5 MG/ML 2 ML VIAL IVP PRN (06:19)
[2019-05-29 06:20] LABS: Calcium 8.3 mg/dL (8.4-10.2); Potassium 4.4 mmol/L (3.5-5.1)
[2019-05-29 06:22] LABS: Glucose,Whole Blood 99 mg/dL (75-99)
[2019-05-29] MEDS: INSULIN ASPART (NovoLOG) 100 UNIT/ML VIAL SQ SCH ×4 (06:42→20:28)
[2019-05-29] MEDS: MIDODRINE 5 MG TAB PO SCH ×3 (06:46→16:31)
[2019-05-29] MEDS: LEVOTHYROXINE 137 MCG TAB PO SCH (06:46)
[2019-05-29 07:24] LABS: Band Neutrophils % 2 %; Eosinophils # (M) 0.13 k/uL (0-0.7); Large Platelets Present; Lymphocytes # (M) 0.85 k/uL (1.0-4.8); Monocytes # (M) 0.33 k/uL (0-1.0); Neutrophils % (M) 78 %; Nucleated Red Blood Cells 0 /100 WBC (0-0); Total Cells Counted 100
[2019-05-29 07:25] LABS: Anisocytosis (M) Present; Poikilocytosis (M) Present; Polychromasia Present
[2019-05-29] MEDS: SYMBICORT 160-4.5 MCG INHALER INHALATION SCH ×2 (08:14→21:57)
[2019-05-29] MEDS: CLOPIDOGREL 75 MG TAB PO SCH (08:34)
[2019-05-29] MEDS: TORSEMIDE 20 MG TAB PO SCH (08:34)
[2019-05-29] MEDS: CALCIUM ACETATE 667 MG TAB PO SCH ×4 (08:34→20:28)
[2019-05-29] MEDS: RANOLAZINE 500 MG TAB.ER.12H PO SCH ×2 (08:35→20:28)
[2019-05-29] MEDS: FAMOTIDINE 20 MG TAB PO SCH (08:35)
--- NOTE | 2019-05-29 10:29 | P.PN ---
Subjective Patient is seen in follow-up for end-stage renal disease. Currently awake and alert. Denies chest pain or shortness of breath. He tolerated hemodialysis well yesterday with 1.7 L ultrafiltration. Blood pressures stable this morning. Vital signs are stable. General: The patient appeared well nourished and normally developed. HEENT: Head exam is unremarkable. Neck is without jugular venous distension. LUNGS: Lungs are clear to auscultation and percussion. Breath sounds decreased. HEART: Rate and Rhythm are regular. First and second heart sounds normal. No murmurs, rubs or gallops. ABDOMEN: Abdominal exam reveals normal bowel sounds. Nontender. Obese. EXTREMITITES: Trace edema. Objective - Vital Signs Vital signs: Vital Signs Temp 96.7 F L 05/29/19 08:00 Pulse 93 05/29/19 08:00 Resp 16 05/29/19 08:00 BP 115/71 05/29/19 08:00 Pulse Ox 99 05/29/19 08:00 Intake & Output 05/28/19 05/29/19 05/29/19 18:59 06:59 18:59 Intake Total 442 480 236 Output Total 1700 30 Balance -1258 450 236 Weight 127.1 kg Intake: Intake, IV Titration 100 Amount Sodium Ferric Gluconat- 100 Sucrose 125 mg In Sodium Chloride 0.9% 100 ml @ 100 mls/hr IVPB DAILY [facility] Rx#:[id number] Oral 342 480 236 Output: Emesis 30 Hemodialysis 1700 Other: Voiding Method Diaper Diaper - Labs CBC & Chem 7: 05/29/19 05:42 05/29/19 05:42 Labs: Abnormal Lab Results - Last 24 Hours (Table) 05/28/19 05/28/19 05/28/19 Range/Units 11:36 16:56 21:26 RBC (4.30-5.90) m/uL Hgb (13.0-17.5) gm/dL Hct (39.0-53.0) % MCV (80.0-100.0) fL MCHC (31.0-37.0) g/dL Lymphocytes # (Manual) (1.0-4.8) k/uL Macrocytosis Chloride (98-107) mmol/L BUN (9-20) mg/dL Creatinine (0.66-1.25) mg/dL Glucose (74-99) mg/dL POC Glucose (mg/dL) 123 H 157 H 181 H (75-99) mg/dL Calcium (8.4-10.2) mg/dL 05/29/19 05/29/19 Range/Units 05:42 05:42 RBC 3.04 L (4.30-5.90) m/uL Hgb 9.7 L (13.0-17.5) gm/dL Hct 32.5 L (39.0-53.0) % MCV 107.1 H (80.0-100.0) fL MCHC 29.7 L (31.0-37.0) g/dL Lymphocytes # (Manual) 0.85 L (1.0-4.8) k/uL Macrocytosis Marked A Chloride 97 L (98-107) mmol/L BUN 31 H (9-20) mg/dL Creatinine 7.47 H* (0.66-1.25) mg/dL Glucose 107 H (74-99) mg/dL POC Glucose (mg/dL) (75-99) mg/dL Calcium 8.3 L (8.4-10.2) mg/dL Assessment and Plan Plan: Assessment: 1. End-stage renal disease maintained on hemodialysis on Thursday schedule. 2. Chest pain. Rule out acute coronary syndrome. Cardiology following. Off heparin drip. No interventions planned. 3. Chronic kidney disease mineral bone disease maintained on PhosLo. 4. Insulin-dependent diabetes mellitus. 5. Chronic systolic CHF with ejection fraction of 35-40% % with moderate pulmonary hypertension. 6. Anemia of chronic kidney disease. Iron deficiency noted. 7. Hypotension related to underlying cardiac status. Lisinopril held. Maintained on midodrine. Plan: Hemodialysis Thursday. Maintain midodrine. IV iron 3 doses. Second dose today.
--- NOTE | 2019-05-29 10:59 | P.PN ---
Subjective This is a 78-year-old gentleman for [facility] subacute rehab presented to the ER with complaints of chest pain with known history of atrial fibrillation, end- stage renal disease on hemodialysis, dyslipidemia, peripheral vascular disease, sleep apnea, CAD- triple-vessel disease with mid LAD lesion-not a surgical candidate as per cardiothoracic surgery and multiple other medical issues. Patient completed his hemodialysis yesterday without any issues. Yesterday evening developed midsternal chest pain lasting about half an hour. Sent to the ER and placed on nitroglycerin drip and heparin. Nitroglycerin drip has been weaned off. Reports chest pain earlier this morning but currently none. Denies lightheadedness dizziness or focal deficits. Troponin 0.019, 0.598, 1.56. EKG reported normal sinus rhythm with ST changes in the inferior lateral leads. Chest x-ray reported pulmonary fibrotic changes with clearing of the pleural fluid and infiltrate of left lung base compared to prior. Hepatitis serology pending. electrolytes within normal limits Vital signs stable. 05/26/2019 receiving hemodialysis today. Maintained on heparin drip . Echo reporting moderately impaired LV function, EF 35-40%, septal basal hypokinetic Maximizing medical therapy with small dose of ASHLEY inhibitor being added to med regime as per cardiology. Underwent debridement at bedside of bilateral feet- refer to procedure note, tolerated process well. 05/27/19 Hemodialysis yesterday, tolerated well. ASHLEY inhibitor initiated yesterday as per cardiology, hypotensive this morning with systolic blood pressures in the 80s. CT of head and C-spine nonacute. Labs pending 05/28/2019: scottyeint is AAOx 3 today. He is c/o some pain in legs, but no chest pains, pressures, or sniffing shortness breath at rest. He is actively undergoing dialysis this time with a shunt in his left arm. His blood pressure remains low. I discussed that with the patient today. Nephrology and cardiology are following him. The recommendations were reviewed. 05/29/2019: izaiah is AAOx 1. today. He is complaining of left hand possible radicular symptoms and some neck pain. This been a chronic ongoing for him today. Staff report overnight that he was confused and somewhat combative. Some Xanax was given and this helped him sleep better. This morning he denies any chest pains pressures shortness breath. He is on hemodialysis Thursday. He is much improved most likely return to [facility] tomorrow. Objective - Vital Signs Vital signs: Vital Signs Temp 96.7 F L 05/29/19 08:00 Pulse 93 05/29/19 08:00 Resp 16 05/29/19 08:00 BP 115/71 05/29/19 08:00 Pulse Ox 99 05/29/19 08:00 Intake & Output 05/28/19 05/29/19 05/29/19 18:59 06:59 18:59 Intake Total 442 480 236 Output Total 1700 30 Balance -1258 450 236 Weight 127.1 kg Intake: Intake, IV Titration 100 Amount Sodium Ferric Gluconat- 100 Sucrose 125 mg In Sodium Chloride 0.9% 100 ml @ 100 mls/hr IVPB DAILY [facility] Rx#:[id number] Oral 342 480 236 Output: Emesis 30 Hemodialysis 1700 Other: Voiding Method Diaper Diaper - Exam GENERAL: Sitting up in chair, no acute distress NECK: No JVD. No thyroid enlargement. No LNs CARDIOVASCULAR: S1, S2 regular. Systolic murmur RSB RESPIRATION: Breath sounds diminished in the bases. No rhonchi , crackles or wheezes ABDOMEN: Soft, obese, nontender . No guarding. no masses palpable. Positive Bowel sounds. LEGS: minimal edema, chronic venous stasis, no cyanosis PSYCHIATRY: Alert and oriented X1, mood and affect normal. NERVOUS SYSTEM: Cranial N 2-12 grossly normal. Moves all 4 limbs. Diffuse weakness No focal deficits. Strength and sensation grossly intact.. Skin: Bilateral feet dressings clean dry and intact (Fof[place] grade 2 diabetic ulcers to the right heel, right #2 toe, left foot dorsum, left #3 and left #4 to dorsum; refer to debridement note Re: Measurements and specifics,), no rash - Labs CBC & Chem 7: 05/29/19 05:42 05/29/19 05:42 Labs: Abnormal Lab Results - Last 24 Hours (Table) 05/28/19 05/28/19 05/28/19 Range/Units 11:36 16:56 21:26 RBC (4.30-5.90) m/uL Hgb (13.0-17.5) gm/dL Hct (39.0-53.0) % MCV (80.0-100.0) fL MCHC (31.0-37.0) g/dL Lymphocytes # (Manual) (1.0-4.8) k/uL Macrocytosis Chloride (98-107) mmol/L BUN (9-20) mg/dL Creatinine (0.66-1.25) mg/dL Glucose (74-99) mg/dL POC Glucose (mg/dL) 123 H 157 H 181 H (75-99) mg/dL Calcium (8.4-10.2) mg/dL 05/29/19 05/29/19 Range/Units 05:42 05:42 RBC 3.04 L (4.30-5.90) m/uL Hgb 9.7 L (13.0-17.5) gm/dL Hct 32.5 L (39.0-53.0) % MCV 107.1 H (80.0-100.0) fL MCHC 29.7 L (31.0-37.0) g/dL Lymphocytes # (Manual) 0.85 L (1.0-4.8) k/uL Macrocytosis Marked A Chloride 97 L (98-107) mmol/L BUN 31 H (9-20) mg/dL Creatinine 7.47 H* (0.66-1.25) mg/dL Glucose 107 H (74-99) mg/dL POC Glucose (mg/dL) (75-99) mg/dL Calcium 8.3 L (8.4-10.2) mg/dL Assessment and Plan (1) Acute non-ST elevation myocardial infarction (NSTEMI) Current Visit: Yes Status: Acute Code(s): I21.4 - NON-ST ELEVATION (NSTEMI) MYOCARDIAL INFARCTION SNOMED Code(s): 661201650 (2) End stage renal disease on dialysis Current Visit: Yes Status: Acute Code(s): N18.6 - END STAGE RENAL DISEASE; Z99.2 - DEPENDENCE ON RENAL DIALYSIS SNOMED Code(s): 674387331 (3) Chronic systolic (congestive) heart failure Current Visit: Yes Status: Acute Code(s): I50.22 - CHRONIC SYSTOLIC (CONGESTIVE) HEART FAILURE SNOMED Code(s): 956776884 (4) Hypotension Current Visit: Yes Status: Acute Code(s): I95.9 - HYPOTENSION, UNSPECIFIED SNOMED Code(s): 34270365 (5) H/O: CVA (cerebrovascular accident) Current Visit: Yes Status: Acute Code(s): Z86.73 - PRSNL HX OF TIA (TIA), AND CEREB INFRC W/O RESID DEFICITS SNOMED Code(s): 202339493 (6) Angina pectoris Current Visit: No Status: Acute Code(s): I20.9 - ANGINA PECTORIS, UNSPECIFIED SNOMED Code(s): 694313220 (7) BPH (benign prostatic hyperplasia) Current Visit: No Status: Acute Code(s): N40.0 - BENIGN PROSTATIC HYPERPLASIA WITHOUT LOWER URINRY TRACT SYMP SNOMED Code(s): 398137617 (8) Coronary artery disease Current Visit: No Status: Chronic Code(s): I25.10 - ATHSCL HEART DISEASE OF [place] CORONARY ARTERY W/O ANG PCTRS SNOMED Code(s): 24457652 (9) Diabetes mellitus type 2 in obese Current Visit: No Status: Chronic Code(s): E11.69 - TYPE 2 DIABETES MELLITUS WITH OTHER SPECIFIED COMPLICATION; E66.9 - OBESITY, UNSPECIFIED SNOMED Code(s): 12161679 (10) Hyperlipidemia Current Visit: No Status: Chronic Code(s): E78.5 - HYPERLIPIDEMIA, UNSPECIFIED SNOMED Code(s): 43643217 (11) Hypertension Current Visit: No Status: Chronic Code(s): I10 - ESSENTIAL (PRIMARY) HYPERTENSION SNOMED Code(s): 20925742 (12) Obstructive sleep apnea Current Visit: No Status: Chronic Code(s): G47.33 - OBSTRUCTIVE SLEEP APNEA (ADULT) (PEDIATRIC) SNOMED Code(s): 80755527 (13) Paroxysmal atrial fibrillation Current Visit: No Status: Chronic Code(s): I48.0 - PAROXYSMAL ATRIAL FIBRILLATION SNOMED Code(s): 920698005 (14) Sundowning Current Visit: Yes Status: Acute Code(s): F05 - DELIRIUM DUE TO KNOWN PHYSIOLOGICAL CONDITION SNOMED Code(s): 074347306 Plan: The sundowning syndrome, he continues to improve. Hemoglobin remained stable 9.7. Electrolytes other than his BUN/creatinine due to his end-stage renal disease. Well controlled. Blood pressure is now better with midodrine. Continue his BiPAP at night. Recheck labs in a.m. Plan subacute rehabilitation in the next several days. I reevaluated next 24 hours.
--- NOTE | 2019-05-29 11:29 | PN ---
PROGRESS NOTE This patient was admitted with chest pain. Patient possibly had a small non ST-segment myocardial infarction. Patient remains asymptomatic. The patient's blood pressure is better. His lisinopril is discontinued. Patient denies any dizziness or lightheadedness. Patient has been ambulating in the hallway. Vital signs are stable. The patient can be discharged home from cardiac point of view. MMODL / IJN: [id number] /
[2019-05-29 11:47] LABS: Glucose,Whole Blood 147 mg/dL (75-99)
[2019-05-29] MEDS: SODIUM FERRIC GLUCONAT-SUCROSE 125 MG in SODIUM CHLORIDE 0.9% 100 ML IVPB SCH (12:22)
[2019-05-29] MEDS: COLLAGENASE 250 UNIT/GM OINTMENT 30 GM TUBE TOPICAL SCH (16:19)
[2019-05-29 16:48] LABS: Glucose,Whole Blood 143 mg/dL (75-99)
[2019-05-29 20:21] LABS: Glucose,Whole Blood 170 mg/dL (75-99)
[2019-05-29] MEDS: LISINOPRIL 5 MG TAB PO SCH (20:27)
[2019-05-29] MEDS: INSULIN DETEMIR (LEVEMIR) 100 UNIT/ML SYR SQ SCH (20:28)
[2019-05-30] MEDS: HYDROcodone/APAP 7.5-325MG 1 EACH TAB PO PRN (01:01)
[2019-05-30 06:00] LABS: Glucose,Whole Blood 108 mg/dL (75-99)
[2019-05-30] MEDS: INSULIN ASPART (NovoLOG) 100 UNIT/ML VIAL SQ SCH ×2 (06:11→12:08)
[2019-05-30] MEDS: LEVOTHYROXINE 137 MCG TAB PO SCH (06:29)
[2019-05-30] MEDS: MIDODRINE 5 MG TAB PO SCH ×2 (06:29→12:13)
[2019-05-30 06:43] LABS: HCT 33.8 % (39.0-53.0); HGB 10.3 gm/dL (13.0-17.5); Hypochromasia Marked; MCH 32.6 pg (25.0-35.0); MCHC 30.6 g/dL (31.0-37.0); MCV 106.5 fL (80.0-100.0); Macrocytosis Moderate; Mean Platelet Volume 8.5; Platelet Count 278 k/uL (150-450); RBC 3.17 m/uL (4.30-5.90); RDW 15.2 % (11.5-15.5); WBC 7.8 k/uL (3.8-10.6)
[2019-05-30 06:49] LABS: Calcium 8.5 mg/dL (8.4-10.2); Potassium 5.4 mmol/L (3.5-5.1)
[2019-05-30] MEDS: METOCLOPRAMIDE 5 MG/ML 2 ML VIAL IVP PRN (06:54)
[2019-05-30 07:04] LABS: Eosinophils # (M) 0.23 k/uL (0-0.7); Lymphocytes # (M) 0.86 k/uL (1.0-4.8); Monocytes # (M) 0.86 k/uL (0-1.0); Neutrophils # (M) 5.85 k/uL (1.3-7.7); Neutrophils % (M) 75 %; Nucleated Red Blood Cells 0 /100 WBC (0-0); Total Cells Counted 100
[2019-05-30] MEDS: SYMBICORT 160-4.5 MCG INHALER INHALATION SCH (08:01)
[2019-05-30] MEDS: CALCIUM ACETATE 667 MG TAB PO SCH ×2 (08:36→12:12)
[2019-05-30] MEDS: FAMOTIDINE 20 MG TAB PO SCH (08:36)
[2019-05-30] MEDS: CLOPIDOGREL 75 MG TAB PO SCH (08:36)
[2019-05-30] MEDS: COLLAGENASE 250 UNIT/GM OINTMENT 30 GM TUBE TOPICAL SCH (08:37)
--- NOTE | 2019-05-30 10:26 | P.PN ---
Subjective Progress Note Date: 05/30/19 This is a 78-year-old gentleman who follows with Dr. Topete in the office. He has a known history of coronary artery disease, patient underwent a cardiac catheterization in August 2017 that revealed triple vessel coronary artery disease with diffuse significant lesion in the mid LAD, proximal circumflex and proximal mid RCA the films were reviewed that time by Dr. Avelina Koch and Dr. King, patient was felt to not be an ideal candidate for either procedure. Medical therapy was advised at that time. The patient also has a history of end-stage renal disease on dialysis 3 times a week, hypertension, hyperlipidemia, obesity, persistent atrial fibrillation, on Eliquis for anticoagulation, PAD with history of carotid disease. Patient has a history of sleep apnea, prior CVA,diabetes, and GERD. He presents to the hospital on this admission with symptoms of a midsternal chest pressure, which the patient states was quite severe. He felt as though he was having a heart attack. He was given sublingual nitroglycerin on route here, which relieved the symptoms according to the patient. The patient also states he had 1 brief episode of chest discomfort while here in the hospital. At the time of my examination this morning patient is quite comfortable, denies any chest discomfort. Chest x-ray showed pulmonary fibrotic changes, clearing of the pleural fluid and infiltrate in the left lung base compared with prior exam. His EKG on arrival here showed atrial flutter with controlled VR. ST-T wave changes noted in the inferior lateral leads. Blood pressure 100/50 with a heart rate in the 60s, he is afebrile. White blood cell count on admission 7.4, hemoglobin 9.6, platelet count 2:15. Sodium 133, potassium 4.2, BUN 16, creatinine 3.7. Initial troponin on arrival here 0.019, subsequent troponin 0.59, and 1.5. BNP level 9370. At the time of my examination this morning, patient is sitting up in his chair at bedside, denies any chest discomfort at present. 05/26/2019 Patient seen and examined this morning sitting up in the chair at bedside, currently undergoing hemodialysis. Dr. Molina did have a discussion with the patient explaining to him that he does have triple-vessel disease which is known, and that he was not felt by Dr. Avelina Koch to be a candidate for intervention, not felt to be a candidate for bypass surgery by Dr. King. Adjustments in medications have been made. Patient denies any chest discomfort. Blood pressure 104/60 with a heart rate in the 60s, 94% on 2 L of oxygen. White blood cell count 6.5, hemoglobin 9.5, platelet count 217. Sodium 135, potassium 4.5, BUN 35, creatinine 6.5. We will add some lisinopril to the patient's medication regime today. Continue with other current medications. 05/30/2019 Patient seen and examined this morning, overall doing well. Breathing is stable, blood pressure 97/50, heart rate in the 60s, 95% on 3 L of oxygen. White blood cell count 7.8, hemoglobin 10.3, platelet count 278. Sodium 139, potassium 5.4, BUN 41, creatinine 9.2. Objective - Vital Signs Vital signs: Vital Signs Temp 98.1 F 05/30/19 03:08 Pulse 61 05/30/19 03:08 Resp 18 05/30/19 03:08 BP 97/50 05/30/19 03:08 Pulse Ox 95 05/30/19 03:08 Intake & Output 05/29/19 05/30/19 05/30/19 18:59 06:59 18:59 Intake Total 698 10 240 Balance 698 10 240 Weight 127.6 kg Intake: IV 10 0.9 10 Oral 698 240 Other: Voiding Method Diaper Diaper # Voids 1 0 - Exam PHYSICAL EXAMINATION: GENERAL: 78-year-old gentleman in no acute distress at the time of my examination HEENT: Head is atraumatic, normocephalic. Pupils equal, round. Sclera ani cteric. Conjunctiva are clear. Mucous membranes of the mouth are moist. Neck is supple. There is no elevated jugular venous pressure. No carotid bruit is heard. HEART EXAMINATION: Heart S1 and S2 systolic murmur is heard CHEST EXAMINATION: Lungs reveal crackles to bilateral bases. ABDOMEN: Soft, obese, nontender. Bowel sounds are heard. No organomegaly noted. EXTREMITIES: 2+ peripheral pulses with trace evidence of peripheral edema, evidence of chronic venous stasis. NEUROLOGIC patient is awake, alert and oriented 3 . - Labs CBC & Chem 7: 05/30/19 05:46 05/30/19 05:46 Labs: Abnormal Lab Results - Last 24 Hours (Table) 05/29/19 05/29/19 05/29/19 Range/Units 11:45 16:46 20:17 RBC (4.30-5.90) m/uL Hgb (13.0-17.5) gm/dL Hct (39.0-53.0) % MCV (80.0-100.0) fL MCHC (31.0-37.0) g/dL Lymphocytes # (Manual) (1.0-4.8) k/uL Potassium (3.5-5.1) mmol/L BUN (9-20) mg/dL Creatinine (0.66-1.25) mg/dL Glucose (74-99) mg/dL POC Glucose (mg/dL) 147 H 143 H 170 H (75-99) mg/dL 05/30/19 05/30/19 05/30/19 Range/Units 05:46 05:46 05:58 RBC 3.17 L (4.30-5.90) m/uL Hgb 10.3 L (13.0-17.5) gm/dL Hct 33.8 L (39.0-53.0) % MCV 106.5 H (80.0-100.0) fL MCHC 30.6 L (31.0-37.0) g/dL Lymphocytes # (Manual) 0.86 L (1.0-4.8) k/uL Potassium 5.4 H (3.5-5.1) mmol/L BUN 41 H (9-20) mg/dL Creatinine 9.23 H* (0.66-1.25) mg/dL Glucose 101 H (74-99) mg/dL POC Glucose (mg/dL) 108 H (75-99) mg/dL Assessment and Plan Plan: Assessment and plan #1 symptoms of a midsternal chest pressure and heaviness, suggestive of possible acute coronary syndrome. Troponin 0.019, 0.59, 1.5. EKG shows a normal sinus rhythm with blocked APCs, ST-T changes noted in the inferior lateral leads. #2 history of coronary artery disease with documented triple-vessel disease by cardiac cath in 2018, medical therapy advised at that time, patient was felt at that time not to be a candidate for surgery #3 end-stage renal disease on hemodialysis #4 diabetes #5 hyperlipidemia #6 hypertension #7 sleep apnea #8 persistent atrial flutter #9 prior CVA #10 GERD #11 PAD with carotid artery disease Plan From cardiology's perspective, patient may be able to be discharged, we'll make a follow-up appointment in the office with Dr. Topete post discharge. DNP note has been reviewed, I agree with a documented findings and plan of care. Patient was seen and examined.
[2019-05-30 11:00] VITALS: BMI 42.7
--- NOTE | 2019-05-30 11:04 | P.PN ---
Subjective Patient is seen in follow-up for end-stage renal disease. Currently awake and alert. Denies chest pain or shortness of breath. No vomiting or diarrhea. Blood pressure in the systolic 90s. Vital signs are stable. General: The patient appeared well nourished and normally developed. HEENT: Head exam is unremarkable. Neck is without jugular venous distension. LUNGS: Lungs are clear to auscultation and percussion. Breath sounds decreased. HEART: Rate and Rhythm are regular. First and second heart sounds normal. No murmurs, rubs or gallops. ABDOMEN: Abdominal exam reveals normal bowel sounds. Nontender. Obese. EXTREMITITES: Trace edema. Objective - Vital Signs Vital signs: Vital Signs Temp 98.1 F 05/30/19 03:08 Pulse 61 05/30/19 03:08 Resp 18 05/30/19 03:08 BP 97/50 05/30/19 03:08 Pulse Ox 95 05/30/19 03:08 Intake & Output 05/29/19 05/30/19 05/30/19 18:59 06:59 18:59 Intake Total 698 10 240 Balance 698 10 240 Weight 127.6 kg 127.6 kg Intake: IV 10 0.9 10 Oral 698 240 Other: Voiding Method Diaper Diaper # Voids 1 0 - Labs CBC & Chem 7: 05/30/19 05:46 05/30/19 05:46 Labs: Abnormal Lab Results - Last 24 Hours (Table) 05/29/19 05/29/19 05/29/19 Range/Units 11:45 16:46 20:17 RBC (4.30-5.90) m/uL Hgb (13.0-17.5) gm/dL Hct (39.0-53.0) % MCV (80.0-100.0) fL MCHC (31.0-37.0) g/dL Lymphocytes # (Manual) (1.0-4.8) k/uL Potassium (3.5-5.1) mmol/L BUN (9-20) mg/dL Creatinine (0.66-1.25) mg/dL Glucose (74-99) mg/dL POC Glucose (mg/dL) 147 H 143 H 170 H (75-99) mg/dL 03/23/20 03/23/20 03/23/20 Range/Units 05:46 05:46 05:58 RBC 3.17 L (4.30-5.90) m/uL Hgb 10.3 L (13.0-17.5) gm/dL Hct 33.8 L (39.0-53.0) % MCV 106.5 H (80.0-100.0) fL MCHC 30.6 L (31.0-37.0) g/dL Lymphocytes # (Manual) 0.86 L (1.0-4.8) k/uL Potassium 5.4 H (3.5-5.1) mmol/L BUN 41 H (9-20) mg/dL Creatinine 9.23 H* (0.66-1.25) mg/dL Glucose 101 H (74-99) mg/dL POC Glucose (mg/dL) 108 H (75-99) mg/dL Assessment and Plan Plan: Assessment: 1. End-stage renal disease maintained on hemodialysis on Thursday schedule. 2. Chest pain. Rule out acute coronary syndrome. Cardiology following. Off heparin drip. No interventions planned. 3. Chronic kidney disease mineral bone disease maintained on PhosLo. 4. Insulin-dependent diabetes mellitus. 5. Chronic systolic CHF with ejection fraction of 35-40% % with moderate pulmonary hypertension. 6. Anemia of chronic kidney disease. Iron deficiency noted. 7. Hypotension related to underlying cardiac status. Lisinopril held. Maintained on midodrine. Plan: Hemodialysis Thursday. Maintain midodrine. IV iron 3 doses. Third dose today.
[2019-05-30 11:28] LABS: Glucose,Whole Blood 116 mg/dL (75-99)
[2019-05-30] MEDS: TORSEMIDE 20 MG TAB PO SCH (12:12)
[2019-05-30] MEDS: SODIUM FERRIC GLUCONAT-SUCROSE 125 MG in SODIUM CHLORIDE 0.9% 100 ML IVPB SCH (12:12)
[2019-05-30] MEDS: RANOLAZINE 500 MG TAB.ER.12H PO SCH (12:13)
[2019-05-30 12:24] VITALS: BP 105/59; PULSE 80; RESP 16; TEMP 96.5
--- NOTE | 2019-05-30 14:07 | P.DS ---
Providers Date of admission: 05/24/19 18:05 Expected date of discharge: 05/30/19 Attending physician: Paddy Corona Consults: 05/24/19 18:05 Consult Physician Urgent Consulting Provider: Tom Gonsales Consult Reason/Comments: NSTEMI Do you want consulting provider notified?: Already Contacted 05/24/19 18:10 Consult Physician Routine Consulting Provider: Denise Peter Consult Reason/Comments: ESRD Do you want consulting provider notified?: Yes Primary care physician: Paddy Corona Hospital Course: Final Diagnoses: Acute NSTEMI, EKG reporting inferior lateral lead ST changes. Diabetes mellitus, insulin-dependent End Stage renal disease, dialysis dependent Anemia of chronic kidney disease Chronic systolic heart failure with EF 35-40% History of significant bradycardia, recommending no beta lizette per cardiology previously Moderate tricuspid regurgitation History of Coronary artery disease, triple-vessel disease with LAD lesion, not a surgical candidate as per cardiothoracic surgery, medical management maximized Hypertension Dyslipidemia Morbid obesity, BMI 43.7 CVA by history 2018 Obstructive sleep apnea on BiPAP Chronic atrial fibrillation, flutter PAD Fofana grade 2 diabetic ulcers to the right heel, right #2 toe, left foot dorsum, left #3 and left #4 to dorsum, status post debridement. Hepatitis B antibody reactive, follow-up with GI outpatient Acute metabolic encephalopathy secondary to hypotension Hospital course: This is a 78-year-old gentleman for [facility] subacute rehab presented to the ER with complaints of chest pain with known history of atrial fibrillation, end-stage renal disease on hemodialysis, dyslipidemia, peripheral vascular disease, sleep apnea, CAD- triple-vessel disease with mid LAD lesion- not a surgical candidate as per cardiothoracic surgery and multiple other medical issues. Patient completed his hemodialysis yesterday without any issues. Yesterday evening developed midsternal chest pain lasting about half an hour. Sent to the ER and placed on nitroglycerin drip and heparin. Nitroglycerin drip has been weaned off. Reports chest pain earlier this morning but currently none. Denies lightheadedness dizziness or focal deficits. Troponin 0.019, 0.598, 1.56. EKG reported normal sinus rhythm with ST changes in the inferior lateral leads. Chest x-ray reported pulmonary fibrotic changes with clearing of the pleural fluid and infiltrate of left lung base compared to prior. Hepatitis serology pending. electrolytes within normal limits Vital signs stable. 05/26/2019 receiving hemodialysis today. Maintained on heparin drip . Echo reporting moderately impaired LV function, EF 35-40%, septal basal hypokinetic Maximizing medical therapy with small dose of ASHLEY inhibitor being added to med regime as per cardiology. Underwent debridement at bedside of bilateral feet- refer to procedure note, tolerated process well. 05/27/19 Hemodialysis yesterday, tolerated well. ASHLEY inhibitor initiated yest erday as per cardiology, hypotensive this morning with systolic blood pressures in the 80s. CT of head and C-spine nonacute. Labs pending 05/28/2019: pateint is AAOx 3 today. He is c/o some pain in legs, but no chest pains, pressures, or sniffing shortness breath at rest. He is actively undergoing dialysis this time with a shunt in his left arm. His blood pressure remains low. I discussed that with the patient today. Nephrology and cardiology are following him. The recommendations were reviewed. 05/29/2019: pateint is AAOx 1. today. He is complaining of left hand possible radicular symptoms and some neck pain. This been a chronic ongoing for him today. Staff report overnight that he was confused and somewhat combative. Some Xanax was given and this helped him sleep better. This morning he denies any chest pains pressures shortness breath. He is on hemodialysis Thursday. He is much improved most likely return to [facility] tomorrow. Significant clinical improvement. Cleared by cardiology for discharge. Patient will be discharged back to [facility] subacute rehab, pending nephrology clearance, in a stable condition with guarded prognosis. As above GENERAL: Alert and oriented 3, no acute distress CARDIOVASCULAR: S1, S2 regular. Systolic murmur RESPIRATION: Breath sounds diminished in the bases. No rhonchi , crackles or wheezes ABDOMEN: Soft, obese, nontender . No guarding. no masses palpable. Positive Bowel sounds. NERVOUS SYSTEM: Cranial N 2-12 grossly normal. Moves all 4 limbs. Diffuse weakness No focal deficits. Strength and sensation grossly intact.. Skin: Bilateral feet dressings clean dry and intact (Fofana grade 2 diabetic ulcers to the right heel, right #2 toe, left foot dorsum, left #3 and left #4 to dorsum; refer to debridement note Re: Measurements and specifics,), The impression and plan of care has been dictated as directed. : I performed a history and examination of this patient, discussed the same with the dictator. I agree with the dictator's note ,documented as a scribe. Any additional findings or plans will be noted. Patient Condition at Discharge: Stable Plan - Discharge Summary Discharge Rx Participant: No New Discharge Prescriptions: New Clopidogrel [Plavix] 75 mg PO DAILY tab Midodrine [ProAmatine] 10 mg PO AC-TID tab Ranolazine [Ranexa] 500 mg PO Q12HR tab.er.12h Collagenase [Santyl] 1 applic TOPICAL DAILY applic Continue Acetaminophen [Tylenol Arthritis] 1,300 mg PO Q12H PRN PRN Reason: Pain Nitroglycerin Sl Tabs [Nitrostat] 0.4 mg SUBLINGUAL Q5M PRN PRN Reason: Chest Pain Albuterol Inhaler [Ventolin Hfa Inhaler] 2 puff INHALATION RT-Q4H PRN PRN Reason: Shortness Of Breath Budesonide/Formoterol Fumarate [Symbicort 160-4.5 Mcg Inhaler] 2 puff INHALATION RT-BID@0800,1700 Calcium Acetate [PhosLo] 667 mg PO QID@08,12,17,21 Allopurinol [Zyloprim] 200 mg PO DAILY@1700 Ergocalciferol (Vitamin D2) [Drisdol] 50,000 unit PO Q14D@1700 Torsemide [Demadex] 100 mg PO DAILY@0800 Tamsulosin HCl [Flomax] 0.4 mg PO BID@0800,1700 Pravastatin Sodium [Pravachol] 40 mg PO HS@2100 Polyethylene Glycol 3350 [Miralax] 17 gm PO DAILY PRN PRN Reason: Constipation Famotidine [Pepcid] 20 mg PO DAILY@1300 Apixaban [Eliquis] 2.5 mg PO BID@0800,1700 Docusate [Colace] 100 mg PO DAILY PRN PRN Reason: Constipation Lidocaine-Prilocaine Cream [Emla Cream 2.5%/2.5%] 1 applic TOPICAL TUTHSA@0800 Levothyroxine Sodium [Synthroid] 137 mcg PO DAILY@0630 tab Bisacodyl [Dulcolax] 10 mg RECTAL DAILY PRN PRN Reason: Constipation DULoxetine HCL [Cymbalta] 30 mg PO DAILY@0800 INSULIN ASPART (NovoLOG) [NovoLOG (formulary)] See Protocol SQ ACHS Insulin Detemir (Levemir) [Levemir] 40 unit SQ HS@2130 Melatonin 10 mg PO HS@2100 Na Phos,M-B/Na Phos,Di-Ba [Fleet Adult] 133 ml RECTAL DAILY PRN PRN Reason: Constipation Pregabalin [Lyrica] 150 mg PO BID@0800,1700 #6 cap traMADol HCL [Ultram] 50 mg PO Q8HR PRN #9 tab PRN Reason: Pain Discontinued Aspirin [Adult Low Dose Aspirin EC] 81 mg PO DAILY@1700 Isosorbide Mononitrate [Isosorbide Mononitrate ER] 30 mg PO DAILY@1300 Midodrine HCl [ProAmatine] 10 mg PO DIRECTED PRN PRN Reason: DIALYSIS DAYS Discharge Medication List Acetaminophen [Tylenol Arthritis] 1,300 mg PO Q12H PRN 08/06/17 [History] Nitroglycerin Sl Tabs [Nitrostat] 0.4 mg SUBLINGUAL Q5M PRN 08/06/17 [History] Albuterol Inhaler [Ventolin Hfa Inhaler] 2 puff INHALATION RT-Q4H PRN 10/26/17 [History] Budesonide/Formoterol Fumarate [Symbicort 160-4.5 Mcg Inhaler] 2 puff INHALATION RT-BID@0800,1700 10/26/17 [History] Allopurinol [Zyloprim] 200 mg PO DAILY@17004/08/18 [History] Calcium Acetate [PhosLo] 667 mg PO QID@08,12,17,21 04/08/18 [History] Ergocalciferol (Vitamin D2) [Drisdol] 50,000 unit PO Q14D@169904/08/18 [History] Apixaban [Eliquis] 2.5 mg PO BID@0800,1700 05/04/19 [History] Docusate [Colace] 100 mg PO DAILY PRN 05/04/19 [History] Famotidine [Pepcid] 20 mg PO DAILY@1300 05/04/19 [History] Lidocaine-Prilocaine Cream [Emla Cream 2.5%/2.5%] 1 applic TOPICAL TUTHSA@0800 05/04/19 [History] Polyethylene Glycol 3350 [Miralax] 17 gm PO DAILY PRN 05/04/19 [History] Pravastatin Sodium [Pravachol] 40 mg PO HS@2100 05/04/19 [History] Tamsulosin HCl [Flomax] 0.4 mg PO BID@0800,1700 05/04/19 [History] Torsemide [Demadex] 100 mg PO DAILY@0800 05/04/19 [History] Levothyroxine Sodium [Synthroid] 137 mcg PO DAILY@0630 tab 05/09/19 [Rx] Bisacodyl [Dulcolax] 10 mg RECTAL DAILY PRN 05/24/19 [History] DULoxetine HCL [Cymbalta] 30 mg PO DAILY@0800 05/24/19 [History] INSULIN ASPART (NovoLOG) [NovoLOG (formulary)] See Protocol SQ ACHS 05/24/19 [History] Insulin Detemir (Levemir) [Levemir] 40 unit SQ HS@21305/24/19 [History] Melatonin 10 mg PO HS@209905/24/19 [History] Na Phos,M-B/Na Phos,Di-Ba [Fleet Adult] 133 ml RECTAL DAILY PRN 05/24/19 [History] Clopidogrel [Plavix] 75 mg PO DAILY tab 05/30/19 [Rx] Collagenase [Santyl] 1 applic TOPICAL DAILY applic 05/30/19 [Rx] Midodrine [ProAmatine] 10 mg PO AC-TID tab 05/30/19 [Rx] Pregabalin [Lyrica] 150 mg PO BID@0800,1700 #6 cap 05/30/19 [Rx] Ranolazine [Ranexa] 500 mg PO Q12HR tab.er.12h 05/30/19 [Rx] traMADol HCL [Ultram] 50 mg PO Q8HR PRN #9 tab 05/30/19 [Rx] Follow up Appointment(s)/Referral(s): Paddy Corona MD [Primary Care Provider] - 1-2 days Activity/Diet/Wound Care/Special Instructions: [facility] as per nephrology CBC, BMP in 3 days Discharge Disposition: TRANSFER TO SNF/ECF
--- NOTE | 2019-06-02 08:02 | CDI ---
Documentation Clarification Form Date: 06/02/19 From: Leigh Jin Phone: If you have a question about this query, please contact Kiley Hussein, Marketing Finance Manager at [phone] between 8am and 5pm. Admit Date: 05/24/19 Discharge Date:05/30/19 Patient Name: Mo Mitchell Visit Number: [id number] ATTENTION: The Clinical Documentation Specialists (CDI) and [facility] Coding Staff appreciate your assistance in clarifying documentation. Please respond to the clarification below the line at the bottom and electronically sign. The CDI & [facility] Coding staff will review the response and follow-up if needed. Please note: Queries are made part of the Legal Health Record. If you have any questions, please contact the author of this message via ITS. Dear Dr. Corona Conflicting documentation has been found in the medical record: Patient was admitted with chest pain. Cardiology documented that the symptoms of midsternal chest pressure and heaviness is suggestive of possible acute coronary syndrome in their consult note and progress notes. You documented that the patient had an acute NSTEMI in your progress notes and it is also in the H&P and discharge summary. History/Risk Factors: CAD revealed in heart cath in 2018 but was felt not to be a candidate for surgery at that time. Hypertension, CHF, A-fib Clinical Indicators: Chest heaviness and pressure, elevated troponin Troponin: 0.019, 0.598, 1.560 EKG: Initial at 1700 - sinus rhythm with ST segment elevation in aVR diffuse ST segment depression and T-wave inversion in the lateral precordial leads concerning for ischemia. EKG: Repeat at 1716 - sinus rhythm with first degree AV block, persistent ST segment elevation in aVR improved ST segment depression in the lateral precordial leads Treatment: IV Heparin, IV Nitro drip, Plavix, Ranexa In your opinion, what is the most clinically appropriate diagnosis for this patient? Acute Coronary Syndrome --->NSTEMI Other explanation of clinical findings Unable to determine (no explanation for clinical findings) Heart Attack: An Acute Coronary Syndrome: Acute Coronary Syndrome is a name given to three types of coronary artery disease that are associated with sudden rupture of plaque inside the coronary artery: Unstable angina Non-ST segment elevation myocardial infarction or heart attack (NSTEMI) ST segment elevation myocardial infarction or heart attack (STEMI). MTDD
--- NOTE | 2019-06-02 08:14 | CDI ---
Documentation Clarification Form Date: 06/02/19 From: Leigh Jin Phone: If you have a question about this query, please contact Kiley Hussein, Bioinformatics Scientist at [phone] between 8am and 5pm. Admit Date: 05/24/19 Discharge Date: 05/30/19 Patient Name: Mo Mitchell Visit Number: [id number] ATTENTION: The Clinical Documentation Specialists (CDI) and [facility] Coding Staff appreciate your assistance in clarifying documentation. Please respond to the clarification below the line at the bottom and electronically sign. The CDI & [facility] Coding staff will review the response and follow-up if needed. Please note: Queries are made part of the Legal Health Record. If you have any questions, please contact the author of this message via ITS. Dear Dr. Corona Per your progress notes/operative note, a debridement was performed on both feet. At the top of the debridement note, subcutaneous muscle debridement was documented. Under the Procedure section of the note you documented debridement to subcutaneous tissues. History/Risk Factors: Patient has diabetes with bilateral foot ulcers Clinical Indicators: yellow fibrinous slough, necrosis Treatment: Debridement In order to capture the severity of condition and code the appropriate procedure; could you please document the following: --->Debridement to subcutaneous tissue Debridement to muscle Other; please specify Unable to determine the title is preprogrammed into [facility] [facility]
== END 2019-05-30 15:25 | DRG 264 ==
LOC: EC 16:57 → 3SCARD 18:05
PROVIDERS: ADMIT Family Medicine; ATTEND Family Medicine
DX: I21.4 Non-ST elevation (NSTEMI) myocardial infarction (principal); G93.41 Metabolic encephalopathy; N18.6 End stage renal disease; F05 Delirium due to known physiological condition; I13.2 Hypertensive heart and chronic kidney disease with heart failure and with stage 5 chronic kidney disease, or end stage renal disease; I48.19 Other persistent atrial fibrillation; I48.92 Unspecified atrial flutter; I50.22 Chronic systolic (congestive) heart failure; L97.413 Non-pressure chronic ulcer of right heel and midfoot with necrosis of muscle; Z68.41 Body mass index [BMI] 40.0-44.9, adult; I25.5 Ischemic cardiomyopathy; I27.20 Pulmonary hypertension, unspecified; L97.523 Non-pressure chronic ulcer of other part of left foot with necrosis of muscle; D63.1 Anemia in chronic kidney disease; I95.9 Hypotension, unspecified; E11.22 Type 2 diabetes mellitus with diabetic chronic kidney disease; E11.42 Type 2 diabetes mellitus with diabetic polyneuropathy; E11.51 Type 2 diabetes mellitus with diabetic peripheral angiopathy without gangrene; E11.621 Type 2 diabetes mellitus with foot ulcer; E11.69 Type 2 diabetes mellitus with other specified complication; D50.9 Iron deficiency anemia, unspecified; E66.01 Morbid (severe) obesity due to excess calories; E78.5 Hyperlipidemia, unspecified; G47.33 Obstructive sleep apnea (adult) (pediatric); I07.1 Rheumatic tricuspid insufficiency; I25.119 Atherosclerotic heart disease of native coronary artery with unspecified angina pectoris; I25.2 Old myocardial infarction; K21.9 Gastro-esophageal reflux disease without esophagitis; M19.041 Primary osteoarthritis, right hand; M19.042 Primary osteoarthritis, left hand; M47.9 Spondylosis, unspecified; M89.8X9 Other specified disorders of bone, unspecified site; N40.0 Benign prostatic hyperplasia without lower urinary tract symptoms; M10.9 Gout, unspecified; R11.10 Vomiting, unspecified; M54.2 Cervicalgia; I69.944 Monoplegia of lower limb following unspecified cerebrovascular disease affecting left non-dominant side; K57.90 Diverticulosis of intestine, part unspecified, without perforation or abscess without bleeding; I87.8 Other specified disorders of veins; Z79.01 Long term (current) use of anticoagulants; Z79.4 Long term (current) use of insulin; Z79.51 Long term (current) use of inhaled steroids; Z79.82 Long term (current) use of aspirin; Z79.890 Hormone replacement therapy; Z79.899 Other long term (current) drug therapy; Z99.81 Dependence on supplemental oxygen; Z99.2 Dependence on renal dialysis; Z96.651 Presence of right artificial knee joint; Z96.643 Presence of artificial hip joint, bilateral; Z86.74 Personal history of sudden cardiac arrest; Z98.42 Cataract extraction status, left eye; Z98.41 Cataract extraction status, right eye; Z96.1 Presence of intraocular lens; Z82.49 Family history of ischemic heart disease and other diseases of the circulatory system; Z83.3 Family history of diabetes mellitus; Z80.9 Family history of malignant neoplasm, unspecified; Z81.1 Family history of alcohol abuse and dependence
CPT/HCPCS: 36415; 70450; 71045; 72125; 80048; 80053; 82728; 83540; 83550; 83735; 83880; 84484; 85025; 85610; 85730; 86706; 87340; 90935; 93005; 93308; 94640; 94660; 94760; 96365; 96366; 96368; 96372; 96375; 99291